=== PATIENT | male | born 1960 | race Caucasian/White ===

== ENCOUNTER 2017-11-29 15:04 | Emergency (ER) | payer MEDICARE, MEDICAID, SELFPAY ==
[2017-11-29 15:11] VITALS: BP 155/76; PULSE 87; RESP 22; TEMP 37; O2SAT 97
--- NOTE | 2017-11-29 15:20 | ED.SOB ---
HPI - SOB/Dyspnea <Vaishnavi Mena, IN HOME AIDE-BC - Last Filed: 11/29/17 23:01> General Chief Complaint: Shortness of Breath/Dyspnea Stated Complaint: LUNGS HURT REAL BAD ON RIGHT SIDE Time Seen by Provider: 11/29/17 15:20 Source: patient and family Mode of arrival: ambulatory Limitations: no limitations History of Present Illness Patient presents with right-sided chest pain for a few days. States this happens when his COPD gets bad. Has noted increased shortness of breath as well as productive cough with increased sputum. Patient states he has been using albuterol home, but has not helped like it should. He is on home oxygen at 2 liters/minute. He denies any fevers, nausea, vomiting, diarrhea. However he does complain of increased dyspnea on exertion. He states he has no lung nodules that are being watched. He has a history of COPD, asthma, bronchitis. Related Data Home Medications Medication Instructions Recorded Confirmed acetaminophen [Tylenol Extra 500 mg PO Q4HP PRN #1 02/20/13 Strength] alum-mag hydroxide-simeth [Mag-Al 30 ml PO PRN PRN #0 08/04/16 Plus] levalbuterol HCl [Xopenex] 1.25 mg INH Q6HP PRN #0 12/23/16 montelukast [Singulair] 10 mg PO QDAY #0 10/27/17 Previous Rx's Medication Instructions Recorded tiotropium bromide [Spiriva with 18 mcg INH QDAY #90 cap 07/10/16 HandiHaler] mometasone-formoterol [Dulera] 2 inh IH BID #1 puff 06/22/17 benzonatate [Tessalon Perles] 100 mg PO TID #90 cap 07/27/17 nystatin 5 ml PO QID #200 ml 08/31/17 albuterol sulfate [Ventolin HFA] 1 - 2 puff INH Q4HP PRN #1 inh 10/27/17 clonazepam 1 tab PO BIDP PRN #30 tab 10/27/17 simvastatin 20 mg tablet 20 mg PO HS #90 tab 11/16/17 amoxicillin-pot clavulanate 1 tab PO BID #20 tab 11/29/17 [Augmentin] prednisone See Label Instructions .ROUTE 11/29/17 .COMPLEX #13 tab Allergies Allergy/AdvReac Type Severity Reaction Status Date / Time budesonide [From SYMBICORT] Allergy Severe Unverified 10/21/17 12:54 cinnamon [CINNAMON] Allergy Severe RESP Unverified 10/21/17 12:54 PROBLEMS AND SWELLING formoterol [From SYMBICORT] Allergy Severe Unverified 10/21/17 12:54 beclomethasone [From QVAR] Allergy Unknown Unverified 10/21/17 12:54 codeine [CODEINE] Allergy Unknown Unverified 10/21/17 12:54 Sulfa (Sulfonamide Allergy Unknown Unverified 10/21/17 12:54 Antibiotics) [SULFA (SULFONAMIDE ANTIBIOTICS)] trimethoprim [TRIMETHOPRIM] Allergy Unknown Unverified 10/21/17 12:54 fluticasone [FLUTICASONE] AdvReac Intermediate FEELS Unverified 10/21/17 12:54 LIKE FIRE IN THE LUNGS salmeterol [SALMETEROL] AdvReac Intermediate FEELS Unverified 10/21/17 12:54 LIKE FIRE IN THE LUNGS doxycycline [DOXYCYCLINE] AdvReac Mild N/V Unverified 10/21/17 12:54 prednisone [PREDNISONE] AdvReac Mild SHAKY AND Unverified 10/21/17 12:54 WEAK ON HIGHER DOSES Review of Systems <ELISHA Cortez - Last Filed: 11/29/17 23:01> Review of Systems GENERAL: See HPI HEENT: Denies sinus pain, ear pain, sore throat, difficulty swallowing, dizziness. RESPIRATORY: See HPI CARDIOVASCULAR: See HPI GASTROINTESTINAL: Denies nausea, vomiting, abdominal pain, diarrhea, constipation, melena. : Denies dysuria, frequency, incontinence, hematuria, urinary retention. MUSCULOSKELETAL: denies weakness, joint pain, or bony pain SKIN: Denies rash, skin lesions, or other NEUROLOGIC: Denies weakness, headache, numbness, change in speech, confusion, seizures, incoordination. PSYCHIATRIC: No concerning psychosocial issues. 12 point review of systems is negative except for those stated above Exam <ELISHA Cortez - Last Filed: 11/29/17 23:01> Narrative Exam Narrative: GENERAL: This is a well-nourished, well-developed patient, on home oxygen. HEAD: Atraumatic. Normocephalic. No temporal or scalp tenderness. EYES: Pupils equal round and reactive. Extraocular motions intact. No scleral icterus. No injection or drainage. ENT: Nose without bleeding, purulent drainage or septal hematoma. Throat without erythema, tonsillar hypertrophy or exudate. Uvula midline. Airway patent. NECK: Trachea midline. No JVD or lymphadenopathy. Supple, nontender, no meningeal signs. CARDIOVASCULAR: Regular rate and rhythm without murmurs, gallops, or rubs. RESPIRATORY: Coarse breath sounds sounds equal bilaterally. Expiratory wheezes noted bilaterally. Patient has cough throughout exam. GASTROINTESTINAL: Abdomen soft, non-tender, nondistended. No hepato-splenomegaly, or palpable masses. No guarding. EXTREMITIES: No clubbing, cyanosis, or edema. No joint tenderness, effusion, or edema noted. BACK: Nontender without deformity or crepitance. No flank tenderness. NEURO: AOx3. SKIN: No rash or erythema. Initial Vital Signs Initial Vital Signs: Vital Signs Temperature 98.6 F 11/29/17 15:11 Pulse Rate 87 11/29/17 15:11 Respiratory Rate 22 11/29/17 15:11 Blood Pressure 155/76 H 11/29/17 15:11 Pulse Oximetry 97 11/29/17 15:11 <Elvis Gale DO - Last Filed: 11/30/17 07:12> Initial Vital Signs Initial Vital Signs: Vital Signs Temperature 98.6 F 11/29/17 15:11 Pulse Rate 87 11/29/17 15:11 Respiratory Rate 22 11/29/17 15:11 Blood Pressure 155/76 H 11/29/17 15:11 Pulse Oximetry 97 11/29/17 15:11 Course <MADAI Cortez-BC - Last Filed: 11/29/17 23:01> Hospital Course: Patient presented with right-sided chest pain. He had an EKG, a chest x-ray, as well as a CBC, CMP and cardiac labs drawn. Given his wheezing, he had a nebulizer treatment. He also had IV steroids. He was given a 1st dose of antibiotic while in the emergency department due to pharmacy closure times. I spoke with the patient several times throughout his stay to evaluate his status and assesses lung sounds. Orders Ordered: Discontinued Medications Acetaminophen (Tylenol) 650 mg PO NOW ONE Stop: 11/29/17 16:54 Last Admin: 11/29/17 17:17 Dose: 650 mg Albuterol (Ventolin) 2.5 mg INH NOW PRN PRN Reason: Shortness Of Breath Last Admin: 11/29/17 16:20 Dose: 2.5 mg Amoxicillin/Clavulanate Potassium (Augmentin 875-125 Mg) 1 tab PO NOW ONE Stop: 11/29/17 18:30 Last Admin: 11/29/17 18:41 Dose: 1 tab Methylprednisolone (Solu-Medrol) 40 mg IV NOW ONE Stop: 11/29/17 16:54 Last Admin: 11/29/17 17:17 Dose: 40 mg Vital Signs - 8 hr 11/29/17 15:11 11/29/17 15:40 11/29/17 16:23 Temperature 98.6 F Pulse Rate 87 81 64 Respiratory Rate 22 10 L 17 Blood Pressure 155/76 H Blood Pressure [Right Arm] 143/83 H Pulse Oximetry 97 97 97 11/29/17 16:51 11/29/17 18:00 11/29/17 18:48 Temperature Pulse Rate 81 72 60 Respiratory Rate 79 H 18 18 Blood Pressure 146/53 H Blood Pressure [Right Arm] 135/76 H 140/79 H Pulse Oximetry 97 97 98 <Elvis Gale, DO - Last Filed: 11/30/17 07:12> Orders Ordered: Discontinued Medications Acetaminophen (Tylenol) 650 mg PO NOW ONE Stop: 11/29/17 16:54 Last Admin: 11/29/17 17:17 Dose: 650 mg Albuterol (Ventolin) 2.5 mg INH NOW PRN PRN Reason: Shortness Of Breath Last Admin: 11/29/17 16:20 Dose: 2.5 mg Amoxicillin/Clavulanate Potassium (Augmentin 875-125 Mg) 1 tab PO NOW ONE Stop: 11/29/17 18:30 Last Admin: 11/29/17 18:41 Dose: 1 tab Methylprednisolone (Solu-Medrol) 40 mg IV NOW ONE Stop: 11/29/17 16:54 Last Admin: 11/29/17 17:17 Dose: 40 mg Vital Signs - 8 hr 11/29/17 15:11 11/29/17 15:40 11/29/17 16:23 Temperature 98.6 F Pulse Rate 87 81 64 Respiratory Rate 22 10 L 17 Blood Pressure 155/76 H Blood Pressure [Right Arm] 143/83 H Pulse Oximetry 97 97 97 11/29/17 16:51 11/29/17 18:00 11/29/17 18:48 Temperature Pulse Rate 81 72 60 Respiratory Rate 79 H 18 Blood Pressure 146/53 H Blood Pressure [Right Arm] 135/76 H 140/79 H Pulse Oximetry 97 97 98 MDM - SOB/Dyspnea <Vaishnavisander GarciaBRENTON noelP-BC - Last Filed: 11/29/17 23:01> Differential Diagnosis Likely acute exacerbation of chronic obstructive airways disease, community acquired pneumonia and asthma with exacerbation Lab Data Result diagrams: 11/29/17 15:30 11/29/17 15:30 Lab Results 11/29/17 11/29/17 11/29/17 Range/Units 15:30 15:30 15:30 WBC 8.9 (4.5-11.0) X10^3/uL RBC 5.19 (4.5-5.9) X10^6/uL Hgb 15.1 (13.5-17.5) g/dL Hct 43.5 (41-53) % MCV 83.9 (80-100) fL MCH 29.1 (26-34) PG MCHC 34.7 (30-36) % RDW 14.0 (11.6-14.8) % Plt Count 145 L (150-400) X10^3/uL Neut % (Auto) 58.4 (50-75) % Lymph % (Auto) 31.2 (25-40) % [place] % (Auto) 6.0 (3-14) % Eos % (Auto) 3.7 (2-4) % Baso % (Auto) 0.7 (0-2) % Neut # (Auto) 5200 (7290-9289) /uL Sodium 146 H (137-145) mmol/L Potassium 3.9 (3.4-5.1) mmol/L Chloride 105.0 (98-107) mmol/L Carbon Dioxide 27.0 (22-32) mmol/L BUN 15.0 (9-20) mg/dL Creatinine 0.90 (0.66-1.25) mg/dL Estimated GFR > 60.0 (>60) mL/min BUN/Creatinine Ratio 16.7 (6-22) Glucose 103 H (70-100) mg/dL Calcium 9.2 (8.4-10.2) mg/dL Magnesium 2.0 (1.6-2.3) mg/dL Total Bilirubin 0.5 (0.2-1.3) mg/dL AST 23 (17-59) IU/L ALT 23 (21-72) IU/L Alkaline Phosphatase 62 (38-126) U/L Total Creatine Kinase 86 (55-170) U/L Troponin I < 0.012 (0.01-0.034) ng/mL B-Natriuretic Peptide < 29.3 L (<100) Total Protein 7.3 (6.3-8.2) g/dL Albumin 4.2 (3.5-5.0) g/dL Globulin 3.1 (1.7-4.1) g/dL Albumin/Globulin Ratio 1.4 (1.0-2.8) Imaging Data Chest x-ray: Radiologist's impression: [address] [address] XRay Report Signed Patient: Mak Rose MR#: [id number] : 1960 Acct:[id number] Age/Sex: 56 / M Date of Service: 11/29/17 Loc: ED Accession Number: [id number] Procedure: XR chest 1V Ordering Provider: Vaishnavi Mena PROCEDURE: XR CHEST 1V INDICATIONS: shortness of breath TECHNIQUE: One view of the chest was acquired. COMPARISON: [facility], CHEST 2 VIEW, 08/29/2017, 16:04. FINDINGS: Surgical changes and devices: None. Lungs and pleura: No pleural effusions or pneumothorax. No focal consolidation. There is a nodular opacity in the right midlung zone measuring approximately 1 cm. Mediastinum: Mediastinal contours appear normal. Heart size is normal. Bones and chest wall: No suspicious bony lesions. Overlying soft tissues appear unremarkable. IMPRESSION: 1. No acute consolidation. 2. Nodular opacity in the right midlung zone is new from the prior study. There is may represent confluence of vascular and rib structures versus a pulmonary nodule. Recommend initial further evaluation with a PA and lateral study. Dictated by: Pernell Adams M.D. on 11/29/2017 at 16:35 Approved by: Pernell Adams M.D. on 11/29/2017 at 16:36 ECG Data Attestation: I personally reviewed and interpreted this ECG as follows: Interpretation: Sinus rhythm. Rate of 75. [place] 165. No ST elevation or depression. [facility] Narrative Medical decision making narrative: Patient presented with increased sputum production, right-sided chest pain, wheezing. His EKG was within normal limits, as was his lab work. His chest x-ray was concerning for nodule in his left lung. Patient states that is a no nodule, but it might be bigger so we will follow up his primary care provider or help desk support. Given his increased wheezing and difficulty breathing, placed him on a steroid taper of prednisone. Given his COPD exacerbation as evidenced by his increased sputum production and wheezing, I placed him on an antibiotic. He is allergic to doxycycline and unfortunately hallucinate when he takes Levaquin. Thus I chose Augmentin as per the up-to-date algorithm for high risk COPD exacerbation. Discussed at length with patient return precautions including chest pain, worsening shortness of breath, worsening, not improving. He states he will call his primary care as well as his help desk support tomorrow. <Elvis Gale, DO - Last Filed: 11/30/17 07:12> Lab Data Lab Results 11/29/17 11/29/17 11/29/17 Range/Units 15:30 15:30 15:30 WBC 8.9 (4.5-11.0) X10^3/uL RBC 5.19 (4.5-5.9) X10^6/uL Hgb 15.1 (13.5-17.5) g/dL Hct 43.5 (41-53) % MCV 83.9 (80-100) fL MCH 29.1 (26-34) PG MCHC 34.7 (30-36) % RDW 14.0 (11.6-14.8) % Plt Count 145 L (150-400) X10^3/uL Neut % (Auto) 58.4 (50-75) % Lymph % (Auto) 31.2 (25-40) % [place] % (Auto) 6.0 (3-14) % Eos % (Auto) 3.7 (2-4) % Baso % (Auto) 0.7 (0-2) % Neut # (Auto) 5200 (1751-9851) /uL Sodium 146 H (137-145) mmol/L Potassium 3.9 (3.4-5.1) mmol/L Chloride 105.0 (98-107) mmol/L Carbon Dioxide 27.0 (22-32) mmol/L BUN 15.0 (9-20) mg/dL Creatinine 0.90 (0.66-1.25) mg/dL Estimated GFR > 60.0 (>60) mL/min BUN/Creatinine Ratio 16.7 (6-22) Glucose 103 H (70-100) mg/dL Calcium 9.2 (8.4-10.2) mg/dL Magnesium 2.0 (1.6-2.3) mg/dL Total Bilirubin 0.5 (0.2-1.3) mg/dL AST 23 (17-59) IU/L ALT 23 (21-72) IU/L Alkaline Phosphatase 62 (38-126) U/L Total Creatine Kinase 86 (55-170) U/L Troponin I < 0.012 (0.01-0.034) ng/mL B-Natriuretic Peptide < 29.3 L (<100) Total Protein 7.3 (6.3-8.2) g/dL Albumin 4.2 (3.5-5.0) g/dL Globulin 3.1 (1.7-4.1) g/dL Albumin/Globulin Ratio 1.4 (1.0-2.8) Discharge Plan Departure Patient Disposition: Home, Self-Care Clinical Impression: COPD exacerbation, Pulmonary nodule Discharge Date/Time: 11/29/17 18:48 Interventions: ED Discharge Assessment Last Done: 11/29/17 18:48 Instructions: DI for Chronic Obstructive Pulmonary Disease Activity Restrictions/Additional Instructions: I am treating you with antibiotics as well as a steroid taper. Follow up with your primary care as well as your help desk support. Continue taking nebulizers and inhalers at home. Come back to the emergency department for any chest pain, shortness of breath, worsening, no improvement. Prescriptions: New prednisone 20 mg tablet See Label Instructions .ROUTE .COMPLEX Qty: 13 RF: 0 amoxicillin-pot clavulanate [Augmentin] 875-125 mg tablet 1 tab PO BID Qty: 20 RF: 0 No Action acetaminophen [Tylenol Extra Strength] 500 MG tablet 500 mg PO Q4HP PRNQty: 1 RF: 0 tiotropium bromide [Spiriva with HandiHaler] 18 MCG capsule, w/inhalation device 18 mcg INH QDAY Qty: 90 RF: 3 alum-mag hydroxide-simeth [Mag-Al Plus] 30 ML suspension 30 ml PO PRN PRNQty: 0 RF: 0 levalbuterol HCl [Xopenex] 1.25 MG/3 ML solution for nebulization 1.25 mg INH Q6HP PRNQty: 0 RF: 0 mometasone-formoterol [Dulera] 200 MCG/5 MCG HFA aerosol inhaler 2 inh IH BID Qty: 1 RF: 6 benzonatate [Tessalon Perles] 100 MG capsule 100 mg PO TID Qty: 90 RF: 3 nystatin 100,000 UNIT/1 ML suspension 5 ml PO QID Qty: 200 RF: 0 montelukast [Singulair] 10 MG tablet 10 mg PO QDAY Qty: 0 RF: 0 clonazepam 0.5 MG tablet 1 tab PO BIDP PRNQty: 30 RF: 0 albuterol sulfate [Ventolin HFA] 90 MCG/PUFF HFA aerosol inhaler 1 - 2 puff INH Q4HP PRNQty: 1 RF: 6 simvastatin 20 mg tablet 20 mg PO HS Qty: 90 RF: 1 Referrals: Naye Reese DO [Primary Care Provider] - <Elvis Gale DO - Last Filed: 11/30/17 07:12> Cosign ED Attending Sami Attestation: I was available for consultation during this patient's emergency department encounter
--- NOTE | 2017-11-29 15:31 | DI.RAD.S_ITS ---
PROCEDURE: XR CHEST 1V INDICATIONS: shortness of breath TECHNIQUE: One view of the chest was acquired. COMPARISON: [facility], , CHEST 2 VIEW, 08/29/2017, 16:04. FINDINGS: Surgical changes and devices: None. Lungs and pleura: No pleural effusions or pneumothorax. No focal consolidation. There is a nodular opacity in the right midlung zone measuring approximately 1 cm. Mediastinum: Mediastinal contours appear normal. Heart size is normal. Bones and chest wall: No suspicious bony lesions. Overlying soft tissues appear unremarkable. IMPRESSION: 1. No acute consolidation. 2. Nodular opacity in the right midlung zone is new from the prior study. There is may represent confluence of vascular and rib structures versus a pulmonary nodule. Recommend initial further evaluation with a PA and lateral study. Dictated by: Pernell Adams M.D. on 11/29/2017 at 16:35 Approved by: Pernell Adams M.D. on 11/29/2017 at 16:36
[2017-11-29 15:38] LABS: Add Manual Diff / Slide Review NO; Basophils Percent Auto 0.7 % (0-2); Eosinophils Percent Auto 3.7 % (2-4); Hematocrit 43.5 % (41-53); Hemoglobin 15.1 g/dL (13.5-17.5); Lymphocytes Percent Auto 31.2 % (25-40); Mean Corpuscular HGB Conc 34.7 % (30-36); Mean Corpuscular Hemoglobin 29.1 PG (26-34); Mean Corpuscular Volume 83.9 fL (80-100); Neutrophils Absolute Auto 5200 /uL (3000-5900); Neutrophils Percent Auto 58.4 % (50-75); Platelet Count 145 X10^3/uL (150-400); Red Blood Cell Count 5.19 X10^6/uL (4.5-5.9); White Blood Cell Count 8.9 X10^3/uL (4.5-11.0)
[2017-11-29 15:40] VITALS: BP 143/83; PULSE 81; RESP 10; O2SAT 97
[2017-11-29 15:45] LABS: Creatine Kinase 86 U/L (55-170)
[2017-11-29 15:47] LABS: Alanine Aminotransferase 23 IU/L (21-72); Albumin 4.2 g/dL (3.5-5.0); Albumin Globulin Ratio 1.4 (1.0-2.8); Alkaline Phosphatase 62 U/L (38-126); Aspartate Aminotransferase 23 IU/L (17-59); BUN Creatinine Ratio 16.7 (6-22); Bilirubin Total 0.5 mg/dL (0.2-1.3); Calcium 9.2 mg/dL (8.4-10.2); Estimated Glomerular Filt Rate > 60.0 mL/min (>60); Globulin 3.1 g/dL (1.7-4.1); Glucose 103 mg/dL (70-100); HEMOLYSIS < 15 (0-50); Potassium 3.9 mmol/L (3.4-5.1); Sodium 146 mmol/L (137-145); Total Protein 7.3 g/dL (6.3-8.2)
[2017-11-29 16:00] LABS: Troponin I < 0.012 ng/mL (0.01-0.034)
[2017-11-29 16:01] LABS: B Type Natriuretic Peptide < 29.3 (<100)
[2017-11-29] MEDS: ALBUTEROL 2.5 MG/3 ML NEB INH (16:20)
[2017-11-29 16:23] VITALS: PULSE 64; RESP 17; O2SAT 97
[2017-11-29 16:51] VITALS: BP 135/76; PULSE 81; RESP 79; O2SAT 97
[2017-11-29] MEDS: ACETAMINOPHEN 325 MG TABLET 650 MG PO (17:17)
[2017-11-29 18:00] VITALS: BP 140/79; PULSE 72; RESP 18; O2SAT 97
[2017-11-29] MEDS: AMOXICILLIN/CLAV 875/125 MG 1 TAB PO (18:41)
[2017-11-29 18:48] VITALS: BP 146/53; PULSE 60; RESP 18; O2SAT 98
--- NOTE | 2017-11-29 23:01 | ED_ITS ---
HPI - SOB/Dyspnea <Vaishnavi Mena, [employer] PL[employer]NER-BC - Last Filed: 11/29/17 23:01> General Chief Complaint: Shortness of Breath/Dyspnea Stated Complaint: LUNGS HURT REAL BAD ON RIGHT SIDE Time Seen by Provider: 11/29/17 15:20 Source: patient and family Mode of arrival: ambulatory Limitations: no limitations History of Present Illness Patient presents with right-sided chest pain for a few days. States this happens when his COPD gets bad. Has noted increased shortness of breath as well as productive cough with increased sputum. Patient states he has been using albuterol home, but has not helped like it should. He is on home oxygen at 2 liters/minute. He denies any fevers, nausea, vomiting, diarrhea. However he does complain of increased dyspnea on exertion. He states he has no lung nodules that are being watched. He has a history of COPD, asthma, bronchitis. Related Data Home Medications Medication Instructions Recorded Confirmed acetaminophen [Tylenol Extra 500 mg PO Q4HP PRN #1 02/20/13 Strength] alum-mag hydroxide-simeth [Mag-Al 30 ml PO PRN PRN #0 08/04/16 Plus] levalbuterol HCl [Xopenex] 1.25 mg INH Q6HP PRN #0 12/23/16 montelukast [Singulair] 10 mg PO QDAY #0 10/27/17 Previous Rx's Medication Instructions Recorded tiotropium bromide [Spiriva with 18 mcg INH QDAY #90 cap 07/10/16 HandiHaler] mometasone-formoterol [Dulera] 2 inh IH BID #1 puff 06/22/17 benzonatate [Tessalon Perles] 100 mg PO TID #90 cap 07/27/17 nystatin 5 ml PO QID #200 ml 08/31/17 albuterol sulfate [Ventolin HFA] 1 - 2 puff INH Q4HP PRN #1 inh 10/27/17 clonazepam 1 tab PO BIDP PRN #30 tab 10/27/17 simvastatin 20 mg tablet 20 mg PO HS #90 tab 11/16/17 amoxicillin-pot clavulanate 1 tab PO BID #20 tab 11/29/17 [Augmentin] prednisone See Label Instructions .ROUTE 11/29/17 .COMPLEX #13 tab Allergies Allergy/AdvReac Type Severity Reaction Status Date / Time budesonide [From SYMBICORT] Allergy Severe Unverified 10/21/17 12:54 cinnamon [CINNAMON] Allergy Severe RESP Unverified 10/21/17 12:54 PROBLEMS AND SWELLING formoterol [From SYMBICORT] Allergy Severe Unverified 10/21/17 12:54 beclomethasone [From QVAR] Allergy Unknown Unverified 10/21/17 12:54 codeine [CODEINE] Allergy Unknown Unverified 10/21/17 12:54 Sulfa (Sulfonamide Allergy Unknown Unverified 10/21/17 12:54 Antibiotics) [SULFA (SULFONAMIDE ANTIBIOTICS)] trimethoprim [TRIMETHOPRIM] Allergy Unknown Unverified 10/21/17 12:54 fluticasone [FLUTICASONE] AdvReac Intermediate FEELS Unverified 10/21/17 12:54 LIKE FIRE IN THE LUNGS salmeterol [SALMETEROL] AdvReac Intermediate FEELS Unverified 10/21/17 12:54 LIKE FIRE IN THE LUNGS doxycycline [DOXYCYCLINE] AdvReac Mild N/V Unverified 10/21/17 12:54 prednisone [PREDNISONE] AdvReac Mild SHAKY AND Unverified 10/21/17 12:54 WEAK ON HIGHER DOSES Review of Systems <ELISHA Cortez - Last Filed: 11/29/17 23:01> Review of Systems GENERAL: See HPI HEENT: Denies sinus pain, ear pain, sore throat, difficulty swallowing, dizziness. RESPIRATORY: See HPI CARDIOVASCULAR: See HPI GASTROINTESTINAL: Denies nausea, vomiting, abdominal pain, diarrhea, constipation, melena. : Denies dysuria, frequency, incontinence, hematuria, urinary retention. MUSCULOSKELETAL: denies weakness, joint pain, or bony pain SKIN: Denies rash, skin lesions, or other NEUROLOGIC: Denies weakness, headache, numbness, change in speech, confusion, seizures, incoordination. PSYCHIATRIC: No concerning psychosocial issues. 12 point review of systems is negative except for those stated above Exam <ELISHA Cortez - Last Filed: 11/29/17 23:01> Narrative Exam Narrative: GENERAL: This is a well-nourished, well-developed patient, on home oxygen. HEAD: Atraumatic. Normocephalic. No temporal or scalp tenderness. EYES: Pupils equal round and reactive. Extraocular motions intact. No scleral icterus. No injection or drainage. ENT: Nose without bleeding, purulent drainage or septal hematoma. Throat without erythema, tonsillar hypertrophy or exudate. Uvula midline. Airway patent. NECK: Trachea midline. No JVD or lymphadenopathy. Supple, nontender, no meningeal signs. CARDIOVASCULAR: Regular rate and rhythm without murmurs, gallops, or rubs. RESPIRATORY: Coarse breath sounds sounds equal bilaterally. Expiratory wheezes noted bilaterally. Patient has cough throughout exam. GASTROINTESTINAL: Abdomen soft, non-tender, nondistended. No hepato-splenomegaly , or palpable masses. No guarding. EXTREMITIES: No clubbing, cyanosis, or edema. No joint tenderness, effusion, or edema noted. BACK: Nontender without deformity or crepitance. No flank tenderness. NEURO: AOx3. SKIN: No rash or erythema. Initial Vital Signs Initial Vital Signs: Vital Signs Temperature 98.6 F 11/29/17 15:11 Pulse Rate 87 11/29/17 15:11 Respiratory Rate 22 11/29/17 15:11 Blood Pressure 155/76 H 11/29/17 15:11 Pulse Oximetry 97 11/29/17 15:11 <Elvis Gale DO - Last Filed: 11/30/17 07:12> Initial Vital Signs Initial Vital Signs: Vital Signs Temperature 98.6 F 11/29/17 15:11 Pulse Rate 87 11/29/17 15:11 Respiratory Rate 22 11/29/17 15:11 Blood Pressure 155/76 H 11/29/17 15:11 Pulse Oximetry 97 11/29/17 15:11 Course <MADAI Cortez-BC - Last Filed: 11/29/17 23:01> Hospital Course: Patient presented with right-sided chest pain. He had an EKG, a chest x-ray, as well as a CBC, CMP and cardiac labs drawn. Given his wheezing, he had a nebulizer treatment. He also had IV steroids. He was given a 1st dose of antibiotic while in the emergency department due to pharmacy closure times. I spoke with the patient several times throughout his stay to evaluate his status and assesses lung sounds. Orders Ordered: Discontinued Medications Acetaminophen (Tylenol) 650 mg PO NOW ONE Stop: 11/29/17 16:54 Last Admin: 11/29/17 17:17 Dose: 650 mg Albuterol (Ventolin) 2.5 mg INH NOW PRN PRN Reason: Shortness Of Breath Last Admin: 11/29/17 16:20 Dose: 2.5 mg Amoxicillin/Clavulanate Potassium (Augmentin 875-125 Mg) 1 tab PO NOW ONE Stop: 11/29/17 18:30 Last Admin: 11/29/17 18:41 Dose: 1 tab Methylprednisolone (Solu-Medrol) 40 mg IV NOW ONE Stop: 11/29/17 16:54 Last Admin: 11/29/17 17:17 Dose: 40 mg Vital Signs - 8 hr 11/29/17 15:11 11/29/17 15:40 11/29/17 16:23 Temperature 98.6 F Pulse Rate 87 81 64 Respiratory Rate 22 10 L 17 Blood Pressure 155/76 H Blood Pressure [Right Arm] 143/83 H Pulse Oximetry 97 97 97 11/29/17 16:51 11/29/17 18:00 11/29/17 18:48 Temperature Pulse Rate 81 72 60 Respiratory Rate 79 H 18 18 Blood Pressure 146/53 H Blood Pressure [Right Arm] 135/76 H 140/79 H Pulse Oximetry 97 97 98 <Elvis Gale, DO - Last Filed: 11/30/17 07:12> Orders Ordered: Discontinued Medications Acetaminophen (Tylenol) 650 mg PO NOW ONE Stop: 11/29/17 16:54 Last Admin: 11/29/17 17:17 Dose: 650 mg Albuterol (Ventolin) 2.5 mg INH NOW PRN PRN Reason: Shortness Of Breath Last Admin: 11/29/17 16:20 Dose: 2.5 mg Amoxicillin/Clavulanate Potassium (Augmentin 875-125 Mg) 1 tab PO NOW ONE Stop: 11/29/17 18:30 Last Admin: 11/29/17 18:41 Dose: 1 tab Methylprednisolone (Solu-Medrol) 40 mg IV NOW ONE Stop: 11/29/17 16:54 Last Admin: 11/29/17 17:17 Dose: 40 mg Vital Signs - 8 hr 11/29/17 15:11 11/29/17 15:40 11/29/17 16:23 Temperature 98.6 F Pulse Rate 87 81 64 Respiratory Rate 22 10 L 17 Blood Pressure 155/76 H Blood Pressure [Right Arm] 143/83 H Pulse Oximetry 97 97 97 11/29/17 16:51 11/29/17 18:00 11/29/17 18:48 Temperature Pulse Rate 81 72 60 Respiratory Rate 79 H 18 Blood Pressure 146/53 H Blood Pressure [Right Arm] 135/76 H 140/79 H Pulse Oximetry 97 97 98 MDM - SOB/Dyspnea <Vaishnavisander GarciaBRENTON noelP-BC - Last Filed: 11/29/17 23:01> Differential Diagnosis Likely acute exacerbation of chronic obstructive airways disease, community acquired pneumonia and asthma with exacerbation Lab Data Result diagrams: 11/29/17 15:30 11/29/17 15:30 Lab Results 11/29/17 11/29/17 11/29/17 Range/Units 15:30 15:30 15:30 WBC 8.9 (4.5-11.0) X10^3/uL RBC 5.19 (4.5-5.9) X10^6/uL Hgb 15.1 (13.5-17.5) g/dL Hct 43.5 (41-53) % MCV 83.9 (80-100) fL MCH 29.1 (26-34) PG MCHC 34.7 (30-36) % RDW 14.0 (11.6-14.8) % Plt Count 145 L (150-400) X10^3/uL Neut % (Auto) 58.4 (50-75) % Lymph % (Auto) 31.2 (25-40) % [place] % (Auto) 6.0 (3-14) % Eos % (Auto) 3.7 (2-4) % Baso % (Auto) 0.7 (0-2) % Neut # (Auto) 5200 (6665-4940) /uL Sodium 146 H (137-145) mmol/L Potassium 3.9 (3.4-5.1) mmol/L Chloride 105.0 (98-107) mmol/L Carbon Dioxide 27.0 (22-32) mmol/L BUN 15.0 (9-20) mg/dL Creatinine 0.90 (0.66-1.25) mg/dL Estimated GFR > 60.0 (>60) mL/min BUN/Creatinine Ratio 16.7 (6-22) Glucose 103 H (70-100) mg/dL Calcium 9.2 (8.4-10.2) mg/dL Magnesium 2.0 (1.6-2.3) mg/dL Total Bilirubin 0.5 (0.2-1.3) mg/dL AST 23 (17-59) IU/L ALT 23 (21-72) IU/L Alkaline Phosphatase 62 (38-126) U/L Total Creatine Kinase 86 (55-170) U/L Troponin I < 0.012 (0.01-0.034) ng/mL B-Natriuretic Peptide < 29.3 L (<100) Total Protein 7.3 (6.3-8.2) g/dL Albumin 4.2 (3.5-5.0) g/dL Globulin 3.1 (1.7-4.1) g/dL Albumin/Globulin Ratio 1.4 (1.0-2.8) Imaging Data Chest x-ray: Radiologist's impression: [address] [address] XRay Report Signed Patient: Mak Rose MR#: [id number] : 1960 Acct:[id number] Age/Sex: 56 / M Date of Service: 11/29/17 Loc: ED Accession Number: [id number] Procedure: XR chest 1V Ordering Provider: Vaishnavi Mena PROCEDURE: XR CHEST 1V INDICATIONS: shortness of breath TECHNIQUE: One view of the chest was acquired. COMPARISON: [facility], CHEST 2 VIEW, 08/29/2017, 16:04. FINDINGS: Surgical changes and devices: None. Lungs and pleura: No pleural effusions or pneumothorax. No focal consolidation. There is a nodular opacity in the right midlung zone measuring approximately 1 cm. Mediastinum: Mediastinal contours appear normal. Heart size is normal. Bones and chest wall: No suspicious bony lesions. Overlying soft tissues appear unremarkable. IMPRESSION: 1. No acute consolidation. 2. Nodular opacity in the right midlung zone is new from the prior study. There is may represent confluence of vascular and rib structures versus a pulmonary nodule. Recommend initial further evaluation with a PA and lateral study. Dictated by: Pernell Adams M.D. on 11/29/2017 at 16:35 Approved by: Pernell Adams M.D. on 11/29/2017 at 16:36 ECG Data Attestation: I personally reviewed and interpreted this ECG as follows: Interpretation: Sinus rhythm. Rate of 75. [place] 165. No ST elevation or depression. [facility] Narrative Medical decision making narrative: Patient presented with increased sputum production, right-sided chest pain, wheezing. His EKG was within normal limits , as was his lab work. His chest x-ray was concerning for nodule in his left lung. Patient states that is a no nodule, but it might be bigger so we will follow up his primary care provider or underwriting specialist. Given his increased wheezing and difficulty breathing, placed him on a steroid taper of prednisone. Given his COPD exacerbation as evidenced by his increased sputum production and wheezing, I placed him on an antibiotic. He is allergic to doxycycline and unfortunately hallucinate when he takes Levaquin. Thus I chose Augmentin as per the up-to-date algorithm for high risk COPD exacerbation. Discussed at length with patient return precautions including chest pain, worsening shortness of breath, worsening, not improving. He states he will call his primary care as well as his underwriting specialist tomorrow. <Elvis Gale, DO - Last Filed: 11/30/17 07:12> Lab Data Lab Results 11/29/17 11/29/17 11/29/17 Range/Units 15:30 15:30 15:30 WBC 8.9 (4.5-11.0) X10^3/uL RBC 5.19 (4.5-5.9) X10^6/uL Hgb 15.1 (13.5-17.5) g/dL Hct 43.5 (41-53) % MCV 83.9 (80-100) fL MCH 29.1 (26-34) PG MCHC 34.7 (30-36) % RDW 14.0 (11.6-14.8) % Plt Count 145 L (150-400) X10^3/uL Neut % (Auto) 58.4 (50-75) % Lymph % (Auto) 31.2 (25-40) % [place] % (Auto) 6.0 (3-14) % Eos % (Auto) 3.7 (2-4) % Baso % (Auto) 0.7 (0-2) % Neut # (Auto) 5200 (8464-3479) /uL Sodium 146 H (137-145) mmol/L Potassium 3.9 (3.4-5.1) mmol/L Chloride 105.0 (98-107) mmol/L Carbon Dioxide 27.0 (22-32) mmol/L BUN 15.0 (9-20) mg/dL Creatinine 0.90 (0.66-1.25) mg/dL Estimated GFR > 60.0 (>60) mL/min BUN/Creatinine Ratio 16.7 (6-22) Glucose 103 H (70-100) mg/dL Calcium 9.2 (8.4-10.2) mg/dL Magnesium 2.0 (1.6-2.3) mg/dL Total Bilirubin 0.5 (0.2-1.3) mg/dL AST 23 (17-59) IU/L ALT 23 (21-72) IU/L Alkaline Phosphatase 62 (38-126) U/L Total Creatine Kinase 86 (55-170) U/L Troponin I < 0.012 (0.01-0.034) ng/mL B-Natriuretic Peptide < 29.3 L (<100) Total Protein 7.3 (6.3-8.2) g/dL Albumin 4.2 (3.5-5.0) g/dL Globulin 3.1 (1.7-4.1) g/dL Albumin/Globulin Ratio 1.4 (1.0-2.8) Discharge Plan Departure Patient Disposition: Home, Self-Care Clinical Impression: COPD exacerbation, Pulmonary nodule Discharge Date/Time: 11/29/17 18:48 Interventions: ED Discharge Assessment Last Done: 11/29/17 18:48 Instructions: DI for Chronic Obstructive Pulmonary Disease Activity Restrictions/Additional Instructions: I am treating you with antibiotics as well as a steroid taper. Follow up with your primary care as well as your underwriting specialist. Continue taking nebulizers and inhalers at home. Come back to the emergency department for any chest pain , shortness of breath, worsening, no improvement. Prescriptions: New prednisone 20 mg tablet See Label Instructions .ROUTE .COMPLEX Qty: 13 RF: 0 amoxicillin-pot clavulanate [Augmentin] 875-125 mg tablet 1 tab PO BID Qty: 20 RF: 0 No Action acetaminophen [Tylenol Extra Strength] 500 MG tablet 500 mg PO Q4HP PRNQty: 1 RF: 0 tiotropium bromide [Spiriva with HandiHaler] 18 MCG capsule, w/inhalation device 18 mcg INH QDAY Qty: 90 RF: 3 alum-mag hydroxide-simeth [Mag-Al Plus] 30 ML suspension 30 ml PO PRN PRNQty: 0 RF: 0 levalbuterol HCl [Xopenex] 1.25 MG/3 ML solution for nebulization 1.25 mg INH Q6HP PRNQty: 0 RF: 0 mometasone-formoterol [Dulera] 200 MCG/5 MCG HFA aerosol inhaler 2 inh IH BID Qty: 1 RF: 6 benzonatate [Tessalon Perles] 100 MG capsule 100 mg PO TID Qty: 90 RF: 3 nystatin 100,000 UNIT/1 ML suspension 5 ml PO QID Qty: 200 RF: 0 montelukast [Singulair] 10 MG tablet 10 mg PO QDAY Qty: 0 RF: 0 clonazepam 0.5 MG tablet 1 tab PO BIDP PRNQty: 30 RF: 0 albuterol sulfate [Ventolin HFA] 90 MCG/PUFF HFA aerosol inhaler 1 - 2 puff INH Q4HP PRNQty: 1 RF: 6 simvastatin 20 mg tablet 20 mg PO HS Qty: 90 RF: 1 Referrals: Naye Reese DO [Primary Care Provider] - <Elvis Gale DO - Last Filed: 11/30/17 07:12> Cosign ED Attending Sami Attestation: I was available for consultation during this patient's emergency department encounter
== END 2017-11-29 18:48 | disposition home or self-care (01) ==
PROVIDERS: Emergency Provider Nurse Practitioner Family; Family Provider Family Medicine; PCP Family Medicine
DX: J44.1 Chronic obstructive pulmonary disease with (acute) exacerbation (principal); R91.1 Solitary pulmonary nodule
CPT/HCPCS: 36591; 71045; 80053; 81003; 82550; 82553; 83735; 83880; 84484; 85025; 93005; 94640; 96374; 99285; J2920; J7613

== ENCOUNTER → 2017-12-10 08:13 | Outpatient (CLI) | payer MEDICARE, SELFPAY ==
[2017-12-10 09:36] LABS: Add Manual Diff / Slide Review NO; Basophils Percent Auto 0.1 % (0-2); Hematocrit 47.2 % (41-53); Hemoglobin 15.9 g/dL (13.5-17.5); Lymphocytes Percent Auto 23.5 % (25-40); Mean Corpuscular HGB Conc 33.8 % (30-36); Mean Corpuscular Volume 85.8 fL (80-100); Monocytes Percent Auto 4.9 % (3-14); Neutrophils Absolute Auto 11600 /uL (3000-5900); Neutrophils Percent Auto 64.5 % (50-75); Platelet Count 149 X10^3/uL (150-400); Red Cell Distribution Width 14.3 % (11.6-14.8)
[2017-12-10 09:41] LABS: Appearance Urine UA CLEAR; Bilirubin Urine UA NEGATIVE (NEGATIVE); Color Urine UA YELLOW; Glucose Urine UA NEGATIVE (Normal); Ketones Urine UA NEGATIVE (NEGATIVE); Leukocyte Esterase Urine UA NEGATIVE (NEGATIVE); Nitrite Urine UA Negative (Negative); Occult Blood Urine UA 1+ (Negative); Protein Urine UA NEGATIVE (Negative); Specific Gravity Urine UA 1.025 (1.000-1.035); Urobilinogen Urine UA 0.2 E.U./dL (0.2)
[2017-12-10 09:50] LABS: Alanine Aminotransferase 31 IU/L (21-72); Albumin 4.1 g/dL (3.5-5.0); Albumin Globulin Ratio 1.2 (1.0-2.8); Alkaline Phosphatase 66 U/L (38-126); Aspartate Aminotransferase 22 IU/L (17-59); Bilirubin Total 0.5 mg/dL (0.2-1.3); Blood Urea Nitrogen 17 mg/dL (9-20); Calcium 9.1 mg/dL (8.4-10.2); Carbon Dioxide 32 mmol/L (22-32); Chloride 100 mmol/L (98-107); Cholesterol 194 mg/dL (140-199); Estimated Glomerular Filt Rate > 60.0 mL/min (>60); Globulin 3.3 g/dL (1.7-4.1); Glucose 92 mg/dL (70-100); HDL Cholesterol 51 mg/dL (40-60); HEMOLYSIS < 15 (0-50); LDL Cholesterol Calculated 118 mg/dL (<100); Potassium 3.6 mmol/L (3.4-5.1); Sodium 141 mmol/L (137-145); Total Protein 7.4 g/dL (6.3-8.2); Triglycerides 126 mg/dL (35-150)
[2017-12-10 10:15] LABS: Prostate Specific Antigen Scrn 0.654 ng/mL (0.1-4.0)
== END ==
PROVIDERS: PCP Family Medicine; Visit Provider Family Medicine
DX: Z12.5 Encounter for screening for malignant neoplasm of prostate (principal); E78.2 Mixed hyperlipidemia; F41.9 Anxiety disorder, unspecified; F51.01 Primary insomnia; J43.1 Panlobular emphysema
CPT/HCPCS: 36415; 80053; 80061; 81003; 85025; G0103

== ENCOUNTER 2017-12-26 00:47 | Emergency (ER) | payer MEDICARE, MEDICAID, SELFPAY ==
[2017-12-26] MEDS: ALBUTEROL/IPRATROPIUM 3 ML AMPUL INH (00:59)
[2017-12-26 01:00] VITALS: PULSE 102; RESP 24; O2SAT 99
[2017-12-26 01:06] VITALS: BP 164/95; PULSE 100; RESP 25; TEMP 37.1; O2SAT 99; BMI 26.6
--- NOTE | 2017-12-26 01:09 | DI.RAD.S_ITS ---
PROCEDURE: XR CHEST 2V INDICATIONS: cough, shortness of breath TECHNIQUE: 2 views of the chest were acquired. COMPARISON: [facility], , CHEST 2 VIEW, 08/29/2017, 16:04. [facility], JOSE, XR CHEST 1V, 11/29/2017, 15:36. FINDINGS: Surgical changes and devices: None. Lungs and pleura: No pleural effusions or pneumothorax. Lungs are clear. Nodular opacity in the right midlung redemonstrated. Mediastinum: Mediastinal contours are normal. Heart size is normal. Bones and chest wall: No suspicious bony abnormalities. Soft tissues appear unremarkable. IMPRESSION: 1. No acute cardiopulmonary disease process. 2. Nodular opacity in the right midlung. Recommend CT scan of the chest for definitive characterization when clinically feasible. Dictated by: Lianet Celis MD, PhD on 12/26/2017 at 7:54 Approved by: Lianet Celis MD, PhD on 12/26/2017 at 7:55
[2017-12-26 01:13] VITALS: PULSE 103; RESP 19; O2SAT 99
[2017-12-26] MEDS: ALBUTEROL/IPRATROPIUM 3 ML AMPUL 6 ML INH (01:13)
[2017-12-26 01:21] LABS: BUN Creatinine Ratio 17.8 (6-22); Blood Urea Nitrogen 16 mg/dL (9-20); Calcium 9.2 mg/dL (8.4-10.2); Carbon Dioxide 29 mmol/L (22-32); Chloride 103 mmol/L (98-107); Estimated Glomerular Filt Rate > 60.0 mL/min (>60); Glucose 80 mg/dL (70-100); HEMOLYSIS 32 (0-50); Potassium 4.1 mmol/L (3.4-5.1); Sodium 143 mmol/L (137-145)
[2017-12-26 01:22] LABS: Add Manual Diff / Slide Review NO; Basophils Percent Auto 1.4 % (0-2); Hematocrit 44.9 % (41-53); Hemoglobin 15.4 g/dL (13.5-17.5); Lymphocytes Percent Auto 32.4 % (25-40); Mean Corpuscular HGB Conc 34.4 % (30-36); Mean Corpuscular Hemoglobin 29.1 PG (26-34); Mean Corpuscular Volume 84.8 fL (80-100); Neutrophils Absolute Auto 6200 /uL (3000-5900); Neutrophils Percent Auto 51.2 % (50-75); Platelet Count 213 X10^3/uL (150-400); Red Blood Cell Count 5.29 X10^6/uL (4.5-5.9); Red Cell Distribution Width 14.1 % (11.6-14.8); White Blood Cell Count 12.1 X10^3/uL (4.5-11.0)
[2017-12-26] MEDS: AZITHROMYCIN 250 MG TABLET 500 MG PO (01:33)
[2017-12-26 01:43] LABS: Troponin I < 0.012 ng/mL (0.01-0.034)
[2017-12-26] MEDS: DEXAMETHASONE 10 MG/ML VIAL 16 MG PO (01:44)
[2017-12-26 02:38] VITALS: BP 112/65; PULSE 102; O2SAT 94
[2017-12-26 03:47] VITALS: BP 133/74; PULSE 89; RESP 18; O2SAT 96
[2017-12-26 04:16] LABS: Troponin I < 0.012 ng/mL (0.01-0.034)
[2017-12-26 04:22] VITALS: BP 139/80; PULSE 67; RESP 20; TEMP 36.7; O2SAT 98
--- NOTE | 2017-12-26 04:27 | ED_ITS ---
HPI - SOB/Dyspnea General Chief Complaint: Shortness of Breath/Dyspnea Stated Complaint: SOB History of Present Illness HPI 57 y/o male smoker with COPD presents with 3-4 hours of gradually progressive shortness breath refractory to his albuterol inhaler and nebulizer. Patient received albuterol ?2 by EMS prior to arrival. Patient uses 2 L per minute by nasal cannula at home. * PE risk factors: denies history of DVT or PE, recent immobilization, leg trauma, estrogen use, surgery in the last four weeks, hemoptysis, or malignancy in the last 6 months. * Smoking: lifelong. * Inhaler(s): albuterol. * CHF: denies weight gain, orthopnea, or diuretic use. M/S/F/SocHx notable for: please see HPI; remainder reviewed with patient and in chart. ROS: Negative constitutional, eye, cardiovascular, pulmonary, GI, , MSK, skin , neurologic, psychiatric, endocrine unless noted in the HPI. Exam Gen: Pleasant, non-toxic appearing, not in extremis. HEENT: NC, AT, PEERL, EOMI, trachea midline. Resp: mild diffuse expiratory wheezing throughout all lung silva, increased work of breathing. Card: RRR with no M/R/G, no crackles in lung bases, no pedal edema, no JVD appreciated. GI: Non-tender to palpation throughout all quadrants, no rebound or guarding. MSK: No chest wall TTP. No visible deformities, strength and tone WNL. Skin: Normal color with no visible lesions. Neuro: AO x 3, no facial asymmetry, vision and hearing WNL. Psych: Mood and affect appropriate. Labs / Imaging (pertinent): WBC 12.1, Hb 15.4, Na 143, K 4.1, troponin < 0.012, troponin (repeat) < 0.012 EKG (initial): SR at 100 bpm, no MD segment depressions, moderate ST segment depressions, no new LBBB, or T-wave changes that would suggest acute ischemia. EKG (repeat): SR 86 bpm, no ST segment elevations or depressions, no LBBB. CXR: No acute cardiopulmonary disease process. No focal infiltrate, cardiomegaly , rib fractures, or mediastinal widening, lung markings extend to the periphery bilaterally and there are no deep sulci. Radiologist read pending. MDM Previous chart, nursing note, and vitals reviewed. A: 57 y/o male smoker with COPD presents with 3-4 hours of gradually progressive shortness breath refractory to his albuterol inhaler and nebulizer. DDx: COPD exacerbation, pneumonia, bronchitis, pneumothorax, anxiety, PE, CHF exacerbation, pleural effusion, pericardial effusion, ACS. Evaluation: * COPD exacerbation - known history along with today's presentation (increased WOB with wheezing throughout all lung silva) most consistent with COPD exacerbation. * Pneumonia - as the CXR is without focal infiltrate and the patient is afebrile and without significant sputum production, doubt pneumonia. * Bronchitis - doubt given the lack of productive cough or systemic symptoms. * Pneumothorax - no evidence by CXR. * Anxiety - patient clinically without evidence of appreciable anxiety on exam. * PE - low clinical suspicion given history and alternate diagnosis, further risk stratification (e.g.) Well's not indicated. * CHF - no evidence by CXR, auscultation, or physical exam. * Pleural effusion - CXR without evidence of effusions. * Pericardial effusion - doubt pericardial effusion given an alternate diagnosis , the lack of cardiomegaly on CXR and normal heart sounds. * ACS - doubt ACS given a non-ischemic EKG and negative serial troponins. Nonspecific ST segment changes on initial ECG felt to be secondary to demand, these resolved with treatment of the patient's COPD. Patient instructed to follow up with PCP. ED Course: Given 3 duonebs, 16 mg dexamethasone, and 500 mg Azithromycin. Disposition: Discharged with rx for 40 mg prednisone x 4 days and Azithromycin Impression: COPD exacerbation. (please reference below for remainder of encounter information) Related Data Home Medications Medication Instructions Recorded Confirmed acetaminophen [Tylenol Extra 500 mg PO Q4HP PRN #1 02/20/13 12/04/17 Strength] alum-mag hydroxide-simeth [Mag-Al 30 ml PO PRN PRN #0 08/04/16 12/04/17 Plus] levalbuterol HCl [Xopenex] 1.25 mg INH Q6HP PRN #0 12/23/16 12/04/17 montelukast [Singulair] 10 mg PO QDAY #0 10/27/17 12/04/17 prednisone 20 mg tablet See Label Instructions .ROUTE 12/04/17 .COMPLEX tab Previous Rx's Medication Instructions Recorded tiotropium bromide [Spiriva with 18 mcg INH QDAY #90 cap 07/10/16 HandiHaler] mometasone-formoterol [Dulera] 2 inh IH BID #1 puff 06/22/17 benzonatate [Tessalon Perles] 100 mg PO TID #90 cap 07/27/17 nystatin 5 ml PO QID #200 ml 08/31/17 albuterol sulfate [Ventolin HFA] 1 - 2 puff INH Q4HP PRN #1 inh 10/27/17 clonazepam 1 tab PO BIDP PRN #30 tab 10/27/17 simvastatin 20 mg tablet 20 mg PO HS #90 tab 11/16/17 amoxicillin-pot clavulanate 1 tab PO BID #20 tab 11/29/17 [Augmentin] Allergies Allergy/AdvReac Type Severity Reaction Status Date / Time cinnamon [CINNAMON] Allergy Severe RESP Verified 12/26/17 01:24 PROBLEMS AND SWELLING beclomethasone [From QVAR] Allergy Unknown Verified 12/26/17 01:24 budesonide [From SYMBICORT] Allergy Unknown unknown Verified 12/26/17 01:24 codeine [CODEINE] Allergy Unknown Verified 12/26/17 01:24 formoterol [From SYMBICORT] Allergy Unknown Verified 12/26/17 01:24 Sulfa (Sulfonamide Allergy Unknown Verified 12/26/17 01:24 Antibiotics) [SULFA (SULFONAMIDE ANTIBIOTICS)] trimethoprim [TRIMETHOPRIM] Allergy Unknown Verified 12/26/17 01:24 fluticasone [FLUTICASONE] AdvReac Intermediate FEELS Verified 12/26/17 01:24 LIKE FIRE IN THE LUNGS doxycycline [DOXYCYCLINE] AdvReac Mild N/V Verified 12/26/17 01:24 prednisone [PREDNISONE] AdvReac Mild SHAKY AND Verified 12/26/17 01:24 WEAK ON HIGHER DOSES PFSH Family History Mother Age: 79 Hypertension Sister Age: 62 Cancer Social History Smoking Status: Current every day smoker Exam Initial Vital Signs Initial Vital Signs: Vital Signs Pulse Rate 102 H 12/26/17 01:00 Respiratory Rate 24 12/26/17 01:00 Pulse Oximetry 99 12/26/17 01:00 Course Orders Ordered: ED Orders 12/26/17 00:45 Basic Metabolic Panel Stat Complete Blood Count AUTO DIFF Stat Troponin I Stat 12/26/17 01:09 XR chest 2V Stat EKG-12 Lead Stat 12/26/17 03:38 EKG-12 Lead Stat 12/26/17 03:50 Troponin I Stat Discontinued Medications Albuterol/Ipratropium (Duoneb) 3 ml INH NOW ONE Stop: 12/26/17 00:58 Last Admin: 12/26/17 00:59 Dose: 3 ml Albuterol/Ipratropium (Duoneb) 6 ml INH NOW ONE Stop: 12/26/17 01:10 Last Admin: 12/26/17 01:13 Dose: 6 ml Azithromycin (Zithromax) 500 mg PO NOW ONE Stop: 12/26/17 01:10 Last Admin: 12/26/17 01:33 Dose: 500 mg Dexamethasone (Decadron) 16 mg PO NOW ONE Stop: 12/26/17 01:10 Last Admin: 12/26/17 01:44 Dose: 16 mg Vital Signs - 8 hr 12/26/17 01:00 12/26/17 01:06 12/26/17 01:13 Temperature 98.7 F Pulse Rate 102 H 100 H 103 H Respiratory Rate 24 25 H 19 Blood Pressure 164/95 H Blood Pressure [Left Arm] Pulse Oximetry 99 99 99 12/26/17 02:38 12/26/17 03:47 12/26/17 04:22 Temperature 98.0 F Pulse Rate 102 H 89 67 Respiratory Rate 18 20 Blood Pressure 139/80 H Blood Pressure [Left Arm] 112/65 133/74 H Pulse Oximetry 94 96 98 MDM - SOB/Dyspnea Lab Data Result diagrams: 12/26/17 00:45 12/26/17 00:45 Lab Results 12/26/17 12/26/17 12/26/17 Range/Units 00:45 00:45 03:50 WBC 12.1 H (4.5-11.0) X10^3/uL RBC 5.29 (4.5-5.9) X10^6/uL Hgb 15.4 (13.5-17.5) g/dL Hct 44.9 (41-53) % MCV 84.8 (80-100) fL MCH 29.1 (26-34) PG MCHC 34.4 (30-36) % RDW 14.1 (11.6-14.8) % Plt Count 213 (150-400) X10^3/uL Neut % (Auto) 51.2 (50-75) % Lymph % (Auto) 32.4 (25-40) % [place] % (Auto) 5.0 (3-14) % Eos % (Auto) 10.0 H (2-4) % Baso % (Auto) 1.4 (0-2) % Neut # (Auto) 6200 H (7210-0057) /uL Sodium 143 (137-145) mmol/L Potassium 4.1 (3.4-5.1) mmol/L Chloride 103 (98-107) mmol/L Carbon Dioxide 29 (22-32) mmol/L BUN 16 (9-20) mg/dL Creatinine 0.90 (0.66-1.25) mg/dL Estimated GFR > 60.0 (>60) mL/min BUN/Creatinine Ratio 17.8 (6-22) Glucose 80 (70-100) mg/dL Calcium 9.2 (8.4-10.2) mg/dL Troponin I < 0.012 < 0.012 (0.01-0.034) ng/mL Discharge Plan Departure Interventions: ED Discharge Assessment Last Done: 12/26/17 04:22 Prescriptions: No Action prednisone 20 mg tablet See Patient Comments .ROUTE .COMPLEX RF: 0 acetaminophen [Tylenol Extra Strength] 500 MG tablet 500 mg PO Q4HP PRNQty: 1 RF: 0 tiotropium bromide [Spiriva with HandiHaler] 18 MCG capsule, w/inhalation device 18 mcg INH QDAY Qty: 90 RF: 3 alum-mag hydroxide-simeth [Mag-Al Plus] 30 ML suspension 30 ml PO PRN PRNQty: 0 RF: 0 levalbuterol HCl [Xopenex] 1.25 MG/3 ML solution for nebulization 1.25 mg INH Q6HP PRNQty: 0 RF: 0 mometasone-formoterol [Dulera] 200 MCG/5 MCG HFA aerosol inhaler 2 inh IH BID Qty: 1 RF: 6 benzonatate [Tessalon Perles] 100 MG capsule 100 mg PO TID Qty: 90 RF: 3 nystatin 100,000 UNIT/1 ML suspension 5 ml PO QID Qty: 200 RF: 0 montelukast [Singulair] 10 MG tablet 10 mg PO QDAY Qty: 0 RF: 0 clonazepam 0.5 MG tablet 1 tab PO BIDP PRNQty: 30 RF: 0 albuterol sulfate [Ventolin HFA] 90 MCG/PUFF HFA aerosol inhaler 1 - 2 puff INH Q4HP PRNQty: 1 RF: 6 simvastatin 20 mg tablet 20 mg PO HS Qty: 90 RF: 1 amoxicillin-pot clavulanate [Augmentin] 875-125 mg tablet 1 tab PO BID Qty: 20 RF: 0
== END 2017-12-26 04:47 | disposition home or self-care (01) ==
PROVIDERS: Emergency Provider Emergency Medicine; Family Provider Family Medicine; PCP Family Medicine
DX: J44.1 Chronic obstructive pulmonary disease with (acute) exacerbation (principal)
CPT/HCPCS: 36415; 71046; 80048; 84484; 85025; 93005; 94640; 99282; 99285; J1100

== ENCOUNTER → 2018-01-27 09:57 | Outpatient (CLI) | payer MEDICARE, MEDICAID, SELFPAY ==
--- NOTE | 2018-01-27 10:01 | DI.CT.S_ITS ---
PROCEDURE: CT CHEST WO CON INDICATIONS: [address] scan on pulmonary nodule TECHNIQUE: Noncontrast 5 mm thick sections acquired from the pulmonary apices to the posterior costophrenic angles. 7 mm thick coronal and sagittal MIP reformats were then acquired. For radiation dose reduction, the following was used: automated exposure control, adjustment of mA and/or kV according to patient size. COMPARISON: [facility], CT, THORAX WITHOUT CONTRAST, 07/17/2017, 9:43. PET/CT from 07/29/2017. FINDINGS: Image quality: Excellent. Lungs and pleura: There is a new 9 x 6 mm right middle lobe pulmonary nodule (se 3 im 81). There is a right upper lobe 20 x 7 mm spiculated pulmonary nodule (se 3 im 63) which is stable since 07/17/2017. Medial left upper lobe 9 mm area of scarring is decreased in prominence the previous study. Posterior left upper lobe irregular scarring now demonstrates an 8mm solid nodular component (se 3 im 36). Emphysema. Mediastinum: Heart size is normal. No pericardial effusion. No mediastinal adenopathy by size criteria. Thoracic aorta and central pulmonary arteries are normal in size. Esophagus is normal in caliber. No hiatal hernia. Bones and chest wall: No suspicious bony lesions. No vertebral body compression fractures. No axillary or supraclavicular adenopathy by size criteria. Thyroid gland is normal. Abdomen: Visualized upper abdominal solid organs and bowel loops appear normal in the absence of contrast. IMPRESSION: Interval development of a 9 x 6 mm right middle lobe pulmonary nodule. Left upper lobe scarring now demonstrates a 7 mm nodular component. These findings are indeterminate. The right-sided nodule is at the lower limits of PET CT. The right-sided nodule may be amenable to CT guided sampling although given the degree of emphysema risk for a pneumothorax requiring hospitalization would be significant. Left-sided nodule is too small for percutaneous biopsy and will require followup CT is described below. Fleischner Society criteria for SOLID lung nodule followup. Nodule size (mm)Low-risk patientHigh-risk patient?4No follow-up neededFollow-up at 12 mo; if no change, no further follow-up>[id number] CT at 12 mo; if no change, no further follow-up needed.Initial follow-up CT at 6-12 mo, then 18-24 mo if no change. >6-8Initial follow-up CT at 6-12 mo, then 18-24 mo if no change. Initial follow-up CT at 3-6 mo, then 9-12 mo and 24 mo if no change. >8Follow-up CT at 3, 9, 24 mo. Or PET and/or biopsy.Same as for low-risk pts. Dictated by: Nigel Mac M.D. on 01/27/2018 at 10:27 Approved by: Nigel Mac M.D. on 01/27/2018 at 10:44
== END ==
PROVIDERS: Family Provider Internal Medicine Critical Care Medicine; PCP Family Medicine; Visit Provider Family Medicine
DX: R91.1 Solitary pulmonary nodule (principal); J43.9 Emphysema, unspecified
CPT/HCPCS: 71250

== ENCOUNTER 2018-02-06 14:12 | Emergency (ER) | payer MEDICARE, MEDICAID, SELFPAY ==
[2018-02-06 14:15] VITALS: BP 143/89; PULSE 94; RESP 22; TEMP 36.9; O2SAT 98
--- NOTE | 2018-02-06 14:19 | ED.ABDPAIN ---
HPI - Abdominal Pain General Chief Complaint: Abdominal Pain Stated Complaint: LEFT SIDED ABDOMINAL PAIN Time Seen by Provider: 02/06/18 14:19 Source: patient Mode of arrival: ambulatory Limitations: no limitations History of Present Illness HPI narrative: 57-year-old male with a history of COPD on oxygen at home here for evaluation of left lower quadrant abdominal pain. Patient states that it has been worsening over the past 3 days. He states he does have a history of diverticulitis however this does not feel like his prior history of that. Does get some relief after having bowel movements and passing gas however does not resolve completely. Does not have any nausea or vomiting. No fevers. No prior abdominal surgeries. Related Data Home Medications Medication Instructions Recorded Confirmed acetaminophen [Tylenol Extra 500 mg PO Q4HP PRN #1 02/20/13 02/01/18 Strength] alum-mag hydroxide-simeth [Mag-Al 30 ml PO PRN PRN #0 08/04/16 02/01/18 Plus] levalbuterol HCl [Xopenex] 1.25 mg INH Q6HP PRN #0 12/23/16 02/01/18 montelukast [Singulair] 10 mg PO QDAY #0 10/27/17 02/01/18 Previous Rx's Medication Instructions Recorded tiotropium bromide [Spiriva with 18 mcg INH QDAY #90 cap 07/10/16 HandiHaler] nystatin 5 ml PO QID #200 ml 08/31/17 albuterol sulfate [Ventolin HFA] 1 - 2 puff INH Q4HP PRN #1 inh 10/27/17 simvastatin 20 mg tablet 20 mg PO HS #90 tab 11/16/17 mometasone-formoterol HFA 200 2 inh INHALATION BID #1 puff 12/29/17 mcg-5 mcg/actuation aerosol inhaler clonazepam 0.5 mg tablet 0.5 mg PO BIDP PRN #30 tab 01/07/18 bupropion HCl XL 150 mg 24 hr 150 mg PO QAM #30 tab 02/01/18 tablet, extended release amoxicillin-pot clavulanate 1 tab PO Q12H 7 Days #14 tab 02/06/18 [Augmentin] Allergies Allergy/AdvReac Type Severity Reaction Status Date / Time cinnamon [CINNAMON] Allergy Severe RESP Verified 02/01/18 14:46 PROBLEMS AND SWELLING beclomethasone [From QVAR] Allergy Unknown Verified 02/01/18 14:46 budesonide [From SYMBICORT] Allergy Unknown unknown Verified 02/01/18 14:46 codeine [CODEINE] Allergy Unknown Verified 02/01/18 14:46 formoterol [From SYMBICORT] Allergy Unknown Verified 02/01/18 14:46 Sulfa (Sulfonamide Allergy Unknown Verified 02/01/18 14:46 Antibiotics) [SULFA (SULFONAMIDE ANTIBIOTICS)] trimethoprim [TRIMETHOPRIM] Allergy Unknown Verified 02/01/18 14:46 fluticasone [FLUTICASONE] AdvReac Intermediate FEELS Verified 02/01/18 14:46 LIKE FIRE IN THE LUNGS doxycycline [DOXYCYCLINE] AdvReac Mild N/V Verified 02/01/18 14:46 prednisone [PREDNISONE] AdvReac Mild SHAKY AND Verified 02/01/18 14:46 WEAK ON HIGHER DOSES Review of Systems Constitutional Denies fatigue, Denies fever(s) and Denies headache(s) ENT Ears, Nose, Mouth, and Throat: Denies headache(s) Cardiovascular Denies chest pain Respiratory Comments: No change in his respiratory status Gastrointestinal Gastrointestinal: Reports abdominal pain, Denies constipation, Denies dyspepsia, Denies diarrhea and Denies nausea Genitourinary Denies dysuria and Denies flank pain Integumentary/Breasts Denies lesions and Denies rash Neurologic Denies headache(s) Endocrine Denies fatigue Hematologic/Lymphatic Denies easy bleeding and Denies easy bruising PFSH Medical History Anxiety (Chronic ~2015) Asthma (Chronic Unknown) COPD (chronic obstructive pulmonary disease) (Chronic ~2013) Hyperlipidemia (Chronic ~2015) Insomnia (Chronic ~2015) Hematuria (Resolved ~2014) TIA (transient ischemic attack) (Resolved 05/2014) Family History Mother Age: 79 Hypertension Sister Age: 62 Cancer Social History Smoking Status: Current every day smoker alcohol intake: never Comment: Reviewed patient's past medical surgical social and family history Exam Initial Vital Signs Initial Vital Signs: Vital Signs Temperature 98.4 F 02/06/18 14:15 Pulse Rate 94 H 02/06/18 14:15 Respiratory Rate 22 02/06/18 14:15 Blood Pressure 143/89 H 02/06/18 14:15 Pulse Oximetry 98 02/06/18 14:15 Const General: cooperative, well groomed and No acute distress Orientation: alert, awake and oriented x3 Resp Other: Tachypneic, on oxygen, at baseline per patient Cardio Rate: regular rate Rhythm: regular rhythm Pulses: radial pulses present GI Other: Left lower quadrant abdominal pain without rebound or guarding Otherwise unremarkable abdomen exam Back/Spine/Pelvis Back: No CVA tenderness Skin Lesions: no lesions Rashes: no rashes Neuro General: alert, awake and oriented x3 Cognition: normal cognition Speech: speech normal Extrem General: normal to inspection Psych Appearance: grossly normal and well kempt Affect: normal affect Course Orders Ordered: ED Orders 02/06/18 14:53 CT abdomen pelvis w con Stat 02/06/18 15:05 Complete Blood Count AUTO DIFF Stat Comprehensive Metabolic Panel Stat Lactate (Lactic Acid) Stat Lipase Stat Discontinued Medications Sodium Chloride (Normal Saline 0.9%) 1,000 mls @ 500 mls/hr IV BOLUS ONE Stop: 02/06/18 16:51 Last Infusion: 02/06/18 16:14 Dose: 0 mls/hr Admin: 02/06/18 15:13 Dose: 500 mls/hr Vital Signs - 8 hr 02/06/18 14:15 02/06/18 15:54 Temperature 98.4 F Pulse Rate 94 H 80 Respiratory Rate 22 18 Blood Pressure 143/89 H Blood Pressure [Left Arm] 138/75 H Pulse Oximetry 98 95 MDM - Abdominal Pain Lab Data Attestation: I reviewed the patient's lab results. Result diagrams: 02/06/18 15:05 02/06/18 15:05 Lab Results 02/06/18 02/06/18 02/06/18 Range/Units 15:05 15:05 15:05 WBC 12.6 H (4.5-11.0) X10^3/uL RBC 5.28 (4.5-5.9) X10^6/uL Hgb 15.4 (13.5-17.5) g/dL Hct 45.2 (41-53) % MCV 85.6 (80-100) fL MCH 29.2 (26-34) PG MCHC 34.2 (30-36) % RDW 14.3 (11.6-14.8) % Plt Count 158 (150-400) X10^3/uL Neut % (Auto) 73.9 (50-75) % Lymph % (Auto) 19.2 L (25-40) % [place] % (Auto) 5.0 (3-14) % Eos % (Auto) 1.1 L (2-4) % Baso % (Auto) 0.8 (0-2) % Neut # (Auto) 9300 H (0623-3785) /uL Sodium 142 (137-145) mmol/L Potassium 4.4 (3.4-5.1) mmol/L Chloride 102 (98-107) mmol/L Carbon Dioxide 31 (22-32) mmol/L BUN 10 (9-20) mg/dL Creatinine 0.90 (0.66-1.25) mg/dL Estimated GFR > 60.0 (>60) mL/min BUN/Creatinine Ratio 11.1 (6-22) Glucose 79 (70-100) mg/dL Lactate 0.8 (0.7-2.1) mmol/L Calcium 9.3 (8.4-10.2) mg/dL Total Bilirubin 0.4 (0.2-1.3) mg/dL AST 21 (17-59) IU/L ALT 22 (21-72) IU/L Alkaline Phosphatase 66 (38-126) U/L Total Protein 7.5 (6.3-8.2) g/dL Albumin 4.3 (3.5-5.0) g/dL Globulin 3.2 (1.7-4.1) g/dL Albumin/Globulin Ratio 1.3 (1.0-2.8) Lipase 129 (23-300) U/L Point of care testing: Urine Dip Bedside Urine Glucose Negative Bedside Urine Bilirubin - Negative Bedside Urine Ketone - Negative Urine Specific [place] 1.015 Bedside Urine Occult Blood +/- Bedside Urine pH 6.0 Bedside Urine Protein - Negative Bedside Urine Urobilinogen - Negative Bedside Urine Nitrite - Negative Bedside Urine Leukocytes - Negative Esterase Imaging Data CT scan - abdomen: Radiologist's impression: PROCEDURE: CT ABDOMEN PELVIS W CON INDICATIONS: Left-sided abdominal pain TECHNIQUE: After the administration of intravenous contrast, 5 mm thick sections acquired from the diaphragm to the symphysis. 5 mm coronal and sagittal reformats were acquired. For radiation dose reduction, the following was used: automated exposure control, adjustment of mA and/or kV according to patient size. COMPARISON: [facility], CT, ABDOMEN/PELVIS WITH CONTRAST, 09/20/2016, 4:05. FINDINGS: Image quality: Excellent. ABDOMEN: Lung bases: Lung bases are clear. Heart size is normal. Solid organs: Liver is normal in size and enhancement. Gallbladder is unremarkable. Biliary system is non dilated. Pancreas enhances normally. Spleen is normal in size and enhancement. No adrenal nodules. Kidneys demonstrate normal size and enhancement, without hydronephrosis. A nonobstructing 9 mm in length calculus is present in the lower pole of the right kidney. Peritoneum and bowel: Bowel loops demonstrate normal wall thickness and caliber. The appendix is thin walled and gas filled. There extensive sigmoid colon diverticular outpouchings. Segmental pericolonic fat stranding and trace free fluid is present within the superior sigmoid. No pneumoperitoneum or findings to suggest intra-abdominal abscess. Nodes and vessels: No retroperitoneal or mesenteric adenopathy by size criteria. Aorta and inferior vena cava are normal in size. There are scattered atheromatous calcifications throughout the aorta and iliac arteries bilaterally. Miscellaneous: No ventral hernias. PELVIS: Genitourinary: Bladder wall thickness is normal. Miscellaneous: No inguinal hernias or adenopathy. Bones: No suspicious bony lesions. No vertebral body compression fractures. IMPRESSION: 1. Acute nonperforated sigmoid colon diverticulitis. 2. Normal appendix. These findings were discussed with Dr. Gale at 3:58 PM on 02/06/18. [facility] Narrative Medical decision making narrative: Patient with history and physical exam and CT scan findings consistent with left-sided diverticulitis without perforation or abscess. Patient had a relatively benign abdominal exam. He states he has been on Augmentin in the past for his diverticulitis. Will send him home with a prescription for this. He was given return precautions. He expressed understanding and agreement with plan Discharge Plan Departure Patient Disposition: Home, Self-Care Clinical Impression: Diverticulitis Discharge Date/Time: 02/06/18 16:20 Interventions: ED Discharge Assessment Last Done: 02/06/18 16:17 Instructions: Diverticulitis Activity Restrictions/Additional Instructions: Take all of the antibiotics like we discussed. Call your primary care doctor for a follow-up. Return to the emergency department for any new or worsening symptoms Prescriptions: New amoxicillin-pot clavulanate [Augmentin] 875-125 mg tablet 1 tab PO Q12H 7 Days Qty: 14 RF: 0 No Action mometasone-formoterol [Dulera] 200-5 mcg/actuation HFA aerosol inhaler 2 inh INHALATION BID Qty: 1 RF: 6 bupropion HCl [Wellbutrin XL] 150 mg tablet extended release 24 hr 150 mg PO QAM Qty: 30 RF: 2 acetaminophen [Tylenol Extra Strength] 500 MG tablet 500 mg PO Q4HP PRNQty: 1 RF: 0 tiotropium bromide [Spiriva with HandiHaler] 18 MCG capsule, w/inhalation device 18 mcg INH QDAY Qty: 90 RF: 3 alum-mag hydroxide-simeth [Mag-Al Plus] 30 ML suspension 30 ml PO PRN PRNQty: 0 RF: 0 levalbuterol HCl [Xopenex] 1.25 MG/3 ML solution for nebulization 1.25 mg INH Q6HP PRNQty: 0 RF: 0 nystatin 100,000 UNIT/1 ML suspension 5 ml PO QID Qty: 200 RF: 0 montelukast [Singulair] 10 MG tablet 10 mg PO QDAY Qty: 0 RF: 0 albuterol sulfate [Ventolin HFA] 90 MCG/PUFF HFA aerosol inhaler 1 - 2 puff INH Q4HP PRNQty: 1 RF: 6 simvastatin 20 mg tablet 20 mg PO HS Qty: 90 RF: 1 clonazepam 0.5 mg tablet 0.5 mg PO BIDP PRN (Reason: anxiety) Qty: 30 RF: 0
--- NOTE | 2018-02-06 14:53 | DI.CT.S_ITS ---
PROCEDURE: CT ABDOMEN PELVIS W CON INDICATIONS: Left-sided abdominal pain TECHNIQUE: After the administration of intravenous contrast, 5 mm thick sections acquired from the diaphragm to the symphysis. 5 mm coronal and sagittal reformats were acquired. For radiation dose reduction, the following was used: automated exposure control, adjustment of mA and/or kV according to patient size. COMPARISON: [facility], CT, ABDOMEN/PELVIS WITH CONTRAST, 09/20/2016, 4:05. FINDINGS: Image quality: Excellent. ABDOMEN: Lung bases: Lung bases are clear. Heart size is normal. Solid organs: Liver is normal in size and enhancement. Gallbladder is unremarkable. Biliary system is non dilated. Pancreas enhances normally. Spleen is normal in size and enhancement. No adrenal nodules. Kidneys demonstrate normal size and enhancement, without hydronephrosis. A nonobstructing 9 mm in length calculus is present in the lower pole of the right kidney. Peritoneum and bowel: Bowel loops demonstrate normal wall thickness and caliber. The appendix is thin walled and gas filled. There extensive sigmoid colon diverticular outpouchings. Segmental pericolonic fat stranding and trace free fluid is present within the superior sigmoid. No pneumoperitoneum or findings to suggest intra-abdominal abscess. Nodes and vessels: No retroperitoneal or mesenteric adenopathy by size criteria. Aorta and inferior vena cava are normal in size. There are scattered atheromatous calcifications throughout the aorta and iliac arteries bilaterally. Miscellaneous: No ventral hernias. PELVIS: Genitourinary: Bladder wall thickness is normal. Miscellaneous: No inguinal hernias or adenopathy. Bones: No suspicious bony lesions. No vertebral body compression fractures. IMPRESSION: 1. Acute nonperforated sigmoid colon diverticulitis. 2. Normal appendix. These findings were discussed with Dr. Gale at 3:58 PM on 02/06/18. Dictated by: Daphne Redd M.D. on 02/06/2018 at 15:56 Approved by: Daphne Redd M.D. on 02/06/2018 at 16:00
[2018-02-06] MEDS: SODIUM CHLORIDE 0.9% 1,000 ML 500 ML IV (15:13)
[2018-02-06 15:20] LABS: Add Manual Diff / Slide Review NO; Basophils Percent Auto 0.8 % (0-2); Eosinophils Percent Auto 1.1 % (2-4); Hematocrit 45.2 % (41-53); Hemoglobin 15.4 g/dL (13.5-17.5); Lymphocytes Percent Auto 19.2 % (25-40); Mean Corpuscular HGB Conc 34.2 % (30-36); Mean Corpuscular Hemoglobin 29.2 PG (26-34); Mean Corpuscular Volume 85.6 fL (80-100); Neutrophils Absolute Auto 9300 /uL (3000-5900); Neutrophils Percent Auto 73.9 % (50-75); Platelet Count 158 X10^3/uL (150-400); Red Blood Cell Count 5.28 X10^6/uL (4.5-5.9); Red Cell Distribution Width 14.3 % (11.6-14.8); White Blood Cell Count 12.6 X10^3/uL (4.5-11.0)
[2018-02-06 15:35] LABS: Alanine Aminotransferase 22 IU/L (21-72); Albumin 4.3 g/dL (3.5-5.0); Albumin Globulin Ratio 1.3 (1.0-2.8); Alkaline Phosphatase 66 U/L (38-126); Aspartate Aminotransferase 21 IU/L (17-59); BUN Creatinine Ratio 11.1 (6-22); Bilirubin Total 0.4 mg/dL (0.2-1.3); Blood Urea Nitrogen 10 mg/dL (9-20); Calcium 9.3 mg/dL (8.4-10.2); Carbon Dioxide 31 mmol/L (22-32); Chloride 102 mmol/L (98-107); Estimated Glomerular Filt Rate > 60.0 mL/min (>60); Globulin 3.2 g/dL (1.7-4.1); Glucose 79 mg/dL (70-100); HEMOLYSIS < 15 (0-50); Lipase 129 U/L (23-300); Potassium 4.4 mmol/L (3.4-5.1); Sodium 142 mmol/L (137-145); Total Protein 7.5 g/dL (6.3-8.2)
[2018-02-06 15:47] LABS: Lactate (Lactic Acid) 0.8 mmol/L (0.7-2.1)
[2018-02-06 15:54] VITALS: BP 138/75; PULSE 80; RESP 18; O2SAT 95
== END 2018-02-06 16:20 | disposition home or self-care (01) ==
PROVIDERS: Emergency Provider Emergency Medicine; PCP Family Medicine
DX: K57.92 Diverticulitis of intestine, part unspecified, without perforation or abscess without bleeding (principal)
CPT/HCPCS: 36591; 74177; 80053; 81003; 83605; 83690; 85025; 96360; 99283; 99285; Q9967

== ENCOUNTER 2018-02-06 23:22 | Emergency (ER) | payer MEDICARE, MEDICAID, SELFPAY ==
[2018-02-06 23:30] VITALS: BP 166/85; PULSE 90; RESP 22; TEMP 36.8; O2SAT 95; BMI 26.2
--- NOTE | 2018-02-06 23:30 | DI.RAD.S_ITS ---
PROCEDURE: XR ACUTE ABDOMEN SERIES INDICATIONS: vomiting pain sob new diverticuitis today TECHNIQUE: One view chest and two views of the abdomen were acquired. COMPARISON: [facility], CT, CT ABDOMEN PELVIS W CON, 02/06/2018, 15:22. [facility], CT, ABDOMEN/PELVIS WITH CONTRAST, 09/20/2016, 4:05. [facility], CT, CT CHEST WO CON, 01/27/2018, 9:58. [facility], CR, XR CHEST 2V, 12/26/2017, 0:52. [facility], CR, XR CHEST 1V, 11/29/2017, 15:36. [facility], CR, CHEST 2 VIEW, 08/29/2017, 16:04. [facility], CR, CHEST 1 VIEW, 06/18/2017, 17:09. [facility], CR, CHEST 1 VIEW, 03/15/2017, 2:19. [facility], CR, CHEST 2 VIEW, 01/31/2017, 21:35. [facility], CR, CHEST 1 VIEW, 12/23/2016, 19:55. [facility], CR, CHEST 1 VIEW, 11/24/2016, 17:40. FINDINGS: Surgical changes and devices: None. Chest: Lungs are clear. Heart size is normal. No pleural effusions. No pneumoperitoneum. Abdomen: Bowel gas pattern is normal. No suspicious calcifications. Visualized solid organ contours appear normal. Contrast material noted in the urinary bladder related to recent abdomen/pelvis CT scan. Bones: No suspicious bony lesions. IMPRESSION: No acute disease process identified by plain radiograph. Dictated by: Lianet Celis MD, PhD on 02/07/2018 at 9:44 Approved by: Lianet Celis MD, PhD on 02/07/2018 at 9:46
[2018-02-06] MEDS: MORPHINE 2 MG/ML INJ IV (23:38)
--- NOTE | 2018-02-07 00:12 | ED.NAVMDI ---
HPI - Nausea/Vomiting/Diarrhea General Chief complaint: Nausea/Vomiting/Diarrhea Stated complaint: N/V Time Seen by Provider: 02/06/18 23:30 Source: patient, RN notes reviewed and old records reviewed Mode of arrival: ambulatory Limitations: no limitations History of Present Illness HPI Narrative: Patient is a 57-year-old male who has chronic COPD on home O2 just seen in the ED and released and diagnosed with diverticulitis. He had abdominal CT and blood work prescribed Augmentin. He went home and continued to have some discomfort all but was not bad. He then started feeling nauseous and vomited couple of times. During the episode of vomiting he got extremely short of breath which concerned him due to his decreased respiratory status. He has received Zofran and is feeling much better. He is having some mild abdominal discomfort but does not feel worse than previously. He has not had any diarrhea no chest pain or heart palpitations. MD complaint: nausea, vomiting and abdominal pain Onset (ago): minute(s) Description of Diarrhea: none Related Data Home Medications Medication Instructions Recorded Confirmed acetaminophen [Tylenol Extra 500 mg PO Q4HP PRN #1 02/20/13 02/01/18 Strength] alum-mag hydroxide-simeth [Mag-Al 30 ml PO PRN PRN #0 08/04/16 02/01/18 Plus] levalbuterol HCl [Xopenex] 1.25 mg INH Q6HP PRN #0 12/23/16 02/01/18 montelukast [Singulair] 10 mg PO QDAY #0 10/27/17 02/01/18 Previous Rx's Medication Instructions Recorded tiotropium bromide [Spiriva with 18 mcg INH QDAY #90 cap 07/10/16 HandiHaler] nystatin 5 ml PO QID #200 ml 08/31/17 albuterol sulfate [Ventolin HFA] 1 - 2 puff INH Q4HP PRN #1 inh 10/27/17 simvastatin 20 mg tablet 20 mg PO HS #90 tab 11/16/17 mometasone-formoterol HFA 200 2 inh INHALATION BID #1 puff 12/29/17 mcg-5 mcg/actuation aerosol inhaler clonazepam 0.5 mg tablet 0.5 mg PO BIDP PRN #30 tab 01/07/18 bupropion HCl XL 150 mg 24 hr 150 mg PO QAM #30 tab 02/01/18 tablet, extended release amoxicillin-pot clavulanate 1 tab PO Q12H 7 Days #14 tab 02/06/18 [Augmentin] ondansetron [Zofran ODT] 4 mg PO Q6-8H PRN #10 tab 02/07/18 Allergies Allergy/AdvReac Type Severity Reaction Status Date / Time cinnamon [CINNAMON] Allergy Severe RESP Verified 02/01/18 14:46 PROBLEMS AND SWELLING beclomethasone [From QVAR] Allergy Unknown Verified 02/01/18 14:46 budesonide [From SYMBICORT] Allergy Unknown unknown Verified 02/01/18 14:46 codeine [CODEINE] Allergy Unknown Verified 02/01/18 14:46 formoterol [From SYMBICORT] Allergy Unknown Verified 02/01/18 14:46 Sulfa (Sulfonamide Allergy Unknown Verified 02/01/18 14:46 Antibiotics) [SULFA (SULFONAMIDE ANTIBIOTICS)] trimethoprim [TRIMETHOPRIM] Allergy Unknown Verified 02/01/18 14:46 fluticasone [FLUTICASONE] AdvReac Intermediate FEELS Verified 02/01/18 14:46 LIKE FIRE IN THE LUNGS doxycycline [DOXYCYCLINE] AdvReac Mild N/V Verified 02/01/18 14:46 prednisone [PREDNISONE] AdvReac Mild SHAKY AND Verified 02/01/18 14:46 WEAK ON HIGHER DOSES Review of Systems Review of Systems All systems reviewed & are unremarkable except as noted in HPI and below Constitutional Denies chills, Denies fever(s), Denies lethargy and Denies weakness Cardiovascular Denies chest pain, Denies lightheadedness and Denies palpitations Respiratory Reports as per HPI Comments: Chronic COPD on home to Gastrointestinal Gastrointestinal: Reports as per HPI Musculoskeletal Denies back pain, Denies muscle weakness, Denies numbness and Denies tingling Integumentary/Breasts Denies pruritus, Denies erythema, Denies rash and Denies wounds Neurologic Denies numbness, Denies tingling and Denies weakness Endocrine Denies palpitations PFSH Social History Smoking Status: Current every day smoker alcohol intake: never Exam Initial Vital Signs Initial Vital Signs: Vital Signs Temperature 98.2 F 02/06/18 23:30 Pulse Rate 90 02/06/18 23:30 Respiratory Rate 22 02/06/18 23:30 Blood Pressure 166/85 H 02/06/18 23:30 Pulse Oximetry 95 02/06/18 23:30 Const General: cooperative, No in distress and ill appearing (A chronically ill) Orientation: alert, awake and oriented x3 Neck Neck: normal visual inspection and full ROM Chest Chest: normal inspection of the chest Resp Effort & Inspection: normal respiratory effort Auscultation: clear to auscultation bilaterally, no rales, no rhonchi and no wheezes Cardio Rate: regular rate Rhythm: regular rhythm Heart Sounds: S1 normal and S2 normal GI Inspection: normal to inspection Palpation: soft, No firm, No guarding and tender (Lower left tenderness without guarding or rebound) General: No CVA tenderness Skin General: no rashes or lesions noted, No jaundice and No petechiae Neuro General: alert, awake and oriented x3 Cranial Nerves: CN's II-XI intact bilaterally Course Orders Ordered: ED Orders 02/06/18 23:30 XR acute abdomen series Stat Discontinued Medications Morphine Sulfate (Morphine) 2 mg IV NOW ONE Stop: 02/06/18 23:31 Last Admin: 02/06/18 23:38 Dose: 2 mg Ondansetron HCl (Zofran Odt Prepack) 1 bottle MISC SEEINSTR ONE Stop: 02/07/18 00:10 Last Admin: 02/07/18 00:26 Dose: 1 bottle Vital Signs - 8 hr 02/06/18 23:30 02/07/18 01:36 Temperature 98.2 F Pulse Rate 90 85 Respiratory Rate 22 20 Blood Pressure 166/85 H 136/72 H Pulse Oximetry 95 98 MDM - Nausea/Vomiting/Diarrhea Medical Records Attestation: I reviewed the patient's medical records. Imaging Data Abdominal x-ray: Attestation: I personally reviewed and interpreted this imaging study as follows: My impression: No free air no air-fluid levels, lungs no acute cardiopulmonary process MDM Narrative Medical decision making narrative: Feeling better after Zofran. No sign of perforation. Abdomen remains slightly tender. Breathing much better and back to normal. Discharge Plan Departure Patient Disposition: Home, Self-Care Clinical Impression: Vomiting, Diverticulitis Discharge Date/Time: 02/07/18 00:35 Interventions: ED Discharge Assessment Last Done: 02/07/18 01:36 Instructions: DI for Vomiting -- Adult Activity Restrictions/Additional Instructions: *You have been diagnosed with vomiting, diverticulitis *What to do: Recommend clear liquid diet for the next couple of days, may advance as tolerated *Continue to take medications as directed -faxed [facility] *Follow up with your primary care provider in 2-3 days *Return to ER if you should have persistent vomiting despite Zofran, increased pain, or any new, worsening or concerning symptoms Prescriptions: New ondansetron [Zofran ODT] 4 mg tablet,disintegrating 4 mg PO Q6-8H PRN (Reason: nausea and vomiting) Qty: 10 RF: 0 No Action mometasone-formoterol [Dulera] 200-5 mcg/actuation HFA aerosol inhaler 2 inh INHALATION BID Qty: 1 RF: 6 bupropion HCl [Wellbutrin XL] 150 mg tablet extended release 24 hr 150 mg PO QAM Qty: 30 RF: 2 acetaminophen [Tylenol Extra Strength] 500 MG tablet 500 mg PO Q4HP PRNQty: 1 RF: 0 tiotropium bromide [Spiriva with HandiHaler] 18 MCG capsule, w/inhalation device 18 mcg INH QDAY Qty: 90 RF: 3 alum-mag hydroxide-simeth [Mag-Al Plus] 30 ML suspension 30 ml PO PRN PRNQty: 0 RF: 0 levalbuterol HCl [Xopenex] 1.25 MG/3 ML solution for nebulization 1.25 mg INH Q6HP PRNQty: 0 RF: 0 nystatin 100,000 UNIT/1 ML suspension 5 ml PO QID Qty: 200 RF: 0 montelukast [Singulair] 10 MG tablet 10 mg PO QDAY Qty: 0 RF: 0 albuterol sulfate [Ventolin HFA] 90 MCG/PUFF HFA aerosol inhaler 1 - 2 puff INH Q4HP PRNQty: 1 RF: 6 simvastatin 20 mg tablet 20 mg PO HS Qty: 90 RF: 1 clonazepam 0.5 mg tablet 0.5 mg PO BIDP PRN (Reason: anxiety) Qty: 30 RF: 0 amoxicillin-pot clavulanate [Augmentin] 875-125 mg tablet 1 tab PO Q12H 7 Days Qty: 14 RF: 0 Referrals: Mary Ann,Naye, DO [Primary Care Provider] -
[2018-02-07] MEDS: ONDANSETRON 4 MG ODT PREPACK 1 BOTTLE MISC (00:26)
[2018-02-07 01:36] VITALS: BP 136/72; PULSE 85; RESP 20; O2SAT 98
== END 2018-02-07 00:35 | disposition home or self-care (01) ==
PROVIDERS: Emergency Provider Emergency Medicine; PCP Family Medicine
DX: K57.92 Diverticulitis of intestine, part unspecified, without perforation or abscess without bleeding (principal); R11.10 Vomiting, unspecified
CPT/HCPCS: 74022; 96374; 99282; 99283; J2270

== ENCOUNTER 2018-03-10 03:20 | Emergency (ER) | payer MEDICARE, MEDICAID, SELFPAY ==
[2018-03-10 03:33] VITALS: BP 154/84; PULSE 93; RESP 22; O2SAT 96
--- NOTE | 2018-03-10 03:42 | DI.RAD.S_ITS ---
PROCEDURE: XR CHEST 1V INDICATIONS: hemoptysis TECHNIQUE: One view of the chest was acquired. COMPARISON: [facility], CR, XR CHEST 1V, 11/29/2017, 15:36. CT from 01/28/2018. FINDINGS: Surgical changes and devices: None. Lungs and pleura: Emphysema. Previously noted right midlung pulmonary nodule is poorly seen. Otherwise, the lungs are clear. Mediastinum: Mediastinal contours appear normal. Heart size is normal. Bones and chest wall: No suspicious bony lesions. Overlying soft tissues appear unremarkable. IMPRESSION: No radiographic evidence of acute cardiopulmonary pathology. Previously noted right midlung pulmonary opacity is poorly seen. Emphysema. Dictated by: Nigel Mac M.D. on 03/10/2018 at 8:27 Approved by: Nigel Mac M.D. on 03/10/2018 at 8:31
--- NOTE | 2018-03-10 03:45 | ED_ITS ---
HPI - URI/Sore Throat General Chief Complaint: Upper Respiratory Symptoms Stated Complaint: Coughing up Blood Time Seen by Provider: 03/10/18 03:29 Source: patient and family Mode of arrival: ambulatory Limitations: no limitations History of Present Illness HPI Narrative: Patient presents to the emergency department complaining of coughing up blood. States he has had a cough and URI symptoms for several days , but the episode of coughing up blood just began today. Patient states he has not been chronically ill with anything. He has not had any unexplained weight loss. No chronic productive cough. No known history of tuberculosis or cancer. Patient states that he has not had any epistaxis. States he looked in the back of his throat to see if anything was bleeding, and he did not see anything. Patient denies any easy bruising or bleeding anywhere else. He states that when he coughed up the blood, it was actually a small glob of mucus mixed with blood. This happened about 3 times. Patient denies fevers or chills. MD Complaint: cough Onset (ago): day(s) ( On) Severity: mild Relieving factors: nothing Exacerbating factors: other ( coughing) Description of mucous: yellow ( mixed with white) and other Able to tolerate fluids by mouth: Yes Context: other ( with no known sick contacts. No recent travel.) Associated symptoms: denies other symptoms Treatments prior to arrival: none Related Data Home Medications Medication Instructions Recorded Confirmed acetaminophen [Tylenol Extra 500 mg PO Q4HP PRN #1 02/20/13 03/03/18 Strength] alum-mag hydroxide-simeth [Mag-Al 30 ml PO PRN PRN #0 08/04/16 03/03/18 Plus] levalbuterol HCl [Xopenex] 1.25 mg INH Q6HP PRN #0 12/23/16 03/03/18 montelukast [Singulair] 10 mg PO QDAY #0 10/27/17 03/03/18 Previous Rx's Medication Instructions Recorded tiotropium bromide [Spiriva with 18 mcg INH QDAY #90 cap 07/10/16 HandiHaler] albuterol sulfate [Ventolin HFA] 1 - 2 puff INH Q4HP PRN #1 inh 10/27/17 simvastatin 20 mg tablet 20 mg PO HS #90 tab 11/16/17 mometasone-formoterol HFA 200 2 inh INHALATION BID #1 puff 12/29/17 mcg-5 mcg/actuation aerosol inhaler ondansetron [Zofran ODT] 4 mg PO Q6-8H PRN #10 tab 02/07/18 clonazepam 0.5 mg tablet 0.5 mg PO BIDP PRN #30 tab 02/16/18 nystatin 100,000 unit/mL oral 5 ml PO QID #200 ml 02/16/18 suspension azithromycin 250 mg tablet See Label Instructions PO .COMPLEX 03/03/18 #6 tab cetirizine 10 mg capsule 10 mg PO DAILY #30 cap 03/03/18 Allergies Allergy/AdvReac Type Severity Reaction Status Date / Time cinnamon [CINNAMON] Allergy Severe RESP Verified 03/03/18 09:24 PROBLEMS AND SWELLING beclomethasone [From QVAR] Allergy Unknown Verified 03/03/18 09:24 budesonide [From SYMBICORT] Allergy Unknown unknown Verified 03/03/18 09:24 codeine [CODEINE] Allergy Unknown Verified 03/03/18 09:24 formoterol [From SYMBICORT] Allergy Unknown Verified 03/03/18 09:24 Sulfa (Sulfonamide Allergy Unknown Verified 03/03/18 09:24 Antibiotics) [SULFA (SULFONAMIDE ANTIBIOTICS)] trimethoprim [TRIMETHOPRIM] Allergy Unknown Verified 03/03/18 09:24 fluticasone [FLUTICASONE] AdvReac Intermediate FEELS Verified 03/03/18 09:24 LIKE FIRE IN THE LUNGS doxycycline [DOXYCYCLINE] AdvReac Mild N/V Verified 03/03/18 09:24 prednisone [PREDNISONE] AdvReac Mild SHAKY AND Verified 03/03/18 09:24 WEAK ON HIGHER DOSES Review of Systems Review of Systems All systems reviewed & are unremarkable except as noted in HPI and below Constitutional Denies chills, Denies fever(s), Denies lethargy and Denies weakness Eyes Denies change in vision, Denies eye discharge, Denies irritation and Denies loss of vision ENT Ears, Nose, Mouth, and Throat: Denies change in voice, Denies neck pain and Denies sore throat Cardiovascular Denies chest pain, Denies irregular heart rhythm, Denies lightheadedness, Denies palpitations, Denies dyspnea, Denies dyspnea on exertion and Denies orthopnea Respiratory Denies cough, Reports hemoptysis ( Mild), Denies dyspnea, Denies dyspnea on exertion and Denies wheezing Gastrointestinal Gastrointestinal: Denies abdominal pain, Denies change in bowel habits, Denies diarrhea, Denies nausea and Denies vomiting Genitourinary Denies hematuria, Denies flank pain, Denies urinary incontinence and Denies urinary urgency Musculoskeletal Denies neck pain Integumentary/Breasts Denies pruritus, Denies erythema, Denies rash and Denies wounds Neurologic Denies confusion, Denies loss of vision and Denies weakness Psychiatric Denies anxiety, Denies confusion, Denies depression, Denies homicidal ideation and Denies suicidal ideation Endocrine Denies palpitations Hematologic/Lymphatic Denies easy bruising Allergic/Immunologic Denies wheezing [facility] Medical History Anxiety (Chronic ~2015) Asthma (Chronic Unknown) COPD (chronic obstructive pulmonary disease) (Chronic ~2013) Hyperlipidemia (Chronic ~2015) Insomnia (Chronic ~2015) Hematuria (Resolved ~2014) TIA (transient ischemic attack) (Resolved 05/2014) Surgical History No pertinent past surgical history (Acute) Family History Mother Age: 79 Hypertension Sister Age: 62 Cancer Social History Smoking Status: Current every day smoker alcohol intake: never Exam Initial Vital Signs Initial Vital Signs: Vital Signs Pulse Rate 93 H 03/10/18 03:33 Respiratory Rate 22 03/10/18 03:33 Blood Pressure 154/84 H 03/10/18 03:33 Pulse Oximetry 96 03/10/18 03:33 Const General: cooperative and well developed Nutritional Appearance: well nourished Orientation: alert, awake, oriented x3 and not confused HENNY Head: normocephalic and atraumatic Ears: external ears normal and TM's normal bilaterally Nose: external nose normal and No nasal discharge Face and sinus: sinuses nontender, face symmetric, no sinus tenderness and No dry mucous membranes Mouth: oral mucosae normal and moist mucous membranes Teeth and gingiva: dentition normal Throat: posterior oropharynx normal ( no blood present), tonsils normal and uvula midline Eyes General: appearance normal, both eyes and all related structures Eyelids: eyelids normal Conjunctivae: conjunctivae normal Sclera: sclerae normal Pupils: PERRL EOM: EOM intact bilaterally Neck Neck: normal visual inspection, trachea midline, No lymphadenopathy, No midline deformity and No JVD Lymphatic: No lymphedema Chest Chest: normal inspection of the chest Resp Effort & Inspection: normal respiratory effort, able to speak in complete sentences, no respiratory distress and no use of accessory muscles Auscultation: clear to auscultation bilaterally, no rales, no rhonchi and no wheezes Cardio Rate: regular rate Rhythm: regular rhythm Heart Sounds: no click, no gallops, no murmurs and no rubs Pulses: normal peripheral pulses GI Inspection: non-distended Palpation: soft, no hepatosplenomegaly, No guarding, No pulsatile mass and No tender Auscultation: normal bowel sounds Back/Spine/Pelvis Back: No CVA tenderness Cervical Spine: cervical ROM normal and No pain with cervical ROM Thoracic/Lumbar Spine: thoracic and lumbar spine normal to inspection Skin General: no rashes or lesions noted, No jaundice and No petechiae Neuro General: alert, oriented x3, gait normal and no focal motor deficits Speech: speech normal Extrem General: full ROM, no clubbing, cyanosis or edema, no pedal edema and no calf tenderness Psych Appearance: well kempt Mental Status: mental status grossly normal Attitude: cooperative Thought Content: normal and suicidality Judgment: judgment good Course Hospital Course: patient was evaluated by myself in the emergency department for what sounded like a fairly mild episode of hemoptysis. The patient did not have any active or ongoing hemoptysis at the time my evaluation. Additionally, his exam was completely normal. Due to the patient's concerns, I did send him for a chest x- ray which was found to be unremarkable. I have discussed with the patient that I do not find evidence of a serious cause of his hemoptysis, and that likely, this is simply due to the stresses of coughing particularly since the patient has been coughing for several days now. We have discussed symptomatic management home. The usual indications for return have also been discussed. No emergent intervention is otherwise indicated. Orders Ordered: ED Orders 03/10/18 EKG-12 Lead Routine 03/10/18 03:42 XR chest 1V Stat Vital Signs - 8 hr 03/10/18 03:33 Pulse Rate 93 H Respiratory Rate 22 Blood Pressure 154/84 H Pulse Oximetry 96 MDM - URI/Sore Throat Medical Records Attestation: I reviewed the patient's medical records. Imaging Data Chest x-ray: Attestation: I personally reviewed and interpreted this imaging study as follows: My impression: No acute disease. Radiologist's impression: PROCEDURE: XR CHEST 1V INDICATIONS: hemoptysis TECHNIQUE: One view of the chest was acquired. COMPARISON: [facility], , XR CHEST 1V, 11/29/2017, 15:36. CT from 2017. FINDINGS: Surgical changes and devices: None. Lungs and pleura: Emphysema. Previously noted right midlung pulmonary nodule is poorly seen. Otherwise, the lungs are clear. Mediastinum: Mediastinal contours appear normal. Heart size is normal. Bones and chest wall: No suspicious bony lesions. Overlying soft tissues appear unremarkable. IMPRESSION: No radiographic evidence of acute cardiopulmonary pathology. Previously noted right midlung pulmonary opacity is poorly seen. Emphysema. Dictated by: Nigel Mac M.D. on 03/10/2018 at 8:27 Approved by: Nigel Mac M.D. on 03/10/2018 at 8:31 Discharge Plan Departure Patient Disposition: Home Clinical Impression: COPD (chronic obstructive pulmonary disease), Cough with hemoptysis Discharge Date/Time: 03/10/18 04:47 Interventions: ED Discharge Assessment Last Done: 03/10/18 04:44 Instructions: DI for Chronic Obstructive Pulmonary Disease, DI for Hemoptysis Activity Restrictions/Additional Instructions: Your x-ray looks good. The most likely cause of your bloody sputum is a simple , benign source that will clear up on its own. However, if you have repeated bouts of this, you will need to have your doctor set you up with an ENT specialist for further evaluation. Prescriptions: No Action mometasone-formoterol [Dulera] 200-5 mcg/actuation HFA aerosol inhaler 2 inh INHALATION BID Qty: 1 RF: 6 cetirizine [All Day Allergy (cetirizine)] 10 mg capsule 10 mg PO DAILY Qty: 30 RF: 2 azithromycin [Zithromax] 250 mg tablet See Label Instructions PO .COMPLEX Qty: 6 RF: 0 acetaminophen [Tylenol Extra Strength] 500 MG tablet 500 mg PO Q4HP PRNQty: 1 RF: 0 tiotropium bromide [Spiriva with HandiHaler] 18 MCG capsule, w/inhalation device 18 mcg INH QDAY Qty: 90 RF: 3 alum-mag hydroxide-simeth [Mag-Al Plus] 30 ML suspension 30 ml PO PRN PRNQty: 0 RF: 0 levalbuterol HCl [Xopenex] 1.25 MG/3 ML solution for nebulization 1.25 mg INH Q6HP PRNQty: 0 RF: 0 montelukast [Singulair] 10 MG tablet 10 mg PO QDAY Qty: 0 RF: 0 albuterol sulfate [Ventolin HFA] 90 MCG/PUFF HFA aerosol inhaler 1 - 2 puff INH Q4HP PRNQty: 1 RF: 6 simvastatin 20 mg tablet 20 mg PO HS Qty: 90 RF: 1 clonazepam 0.5 mg tablet 0.5 mg PO BIDP PRN (Reason: anxiety) Qty: 30 RF: 0 nystatin 100,000 unit/mL suspension 5 ml PO QID Qty: 200 RF: 0 ondansetron [Zofran ODT] 4 mg tablet,disintegrating 4 mg PO Q6-8H PRN (Reason: nausea and vomiting) Qty: 10 RF: 0 Referrals: Naye Reese DO [Primary Care Provider] - (Please follow up if your bloody sputum continues for more than the next couple days.)
[2018-03-10 04:41] VITALS: BP 133/58; PULSE 83; RESP 22; O2SAT 95
== END 2018-03-10 04:47 | disposition home or self-care (01) ==
PROVIDERS: Emergency Provider Emergency Medicine; PCP Family Medicine
DX: J44.9 Chronic obstructive pulmonary disease, unspecified (principal); R04.2 Hemoptysis
CPT/HCPCS: 36591; 71045; 93005; 93010; 99282; 99284

== ENCOUNTER → 2018-05-07 15:54 | Outpatient (CLI) | payer MEDICARE, MEDICAID, SELFPAY ==
--- NOTE | 2018-05-07 | DI.CT.S_ITS ---
PROCEDURE: CT CHEST WO CON INDICATIONS: Other nonspecific abnormal finding of lung field TECHNIQUE: Noncontrast 2.0-2.5 mm thick sections acquired from the pulmonary apices to the posterior costophrenic angles. 7 mm thick coronal and sagittal MIP reformats were then acquired. A low radiation dose technique was utilized. COMPARISON: [facility], CT, CT CHEST WO CON, 01/27/2018, 9:58. FINDINGS: Image quality: Diagnostic, given the low radiation dose technique. Lungs and pleura: Multiple bilateral ill-defined pulmonary nodules appear stable since 01/27/18, for example in the left upper lobe with partial groundglass appearance measuring 7 mm. In the right upper lobe on image 76 series 3 with spiculated margins measuring up to 20 mm. And in the right middle lobe measuring approximately 8mm. There is background centrilobular emphysema, severe. No acute consolidation. No pleural effusion or pneumothorax. The Mediastinum: Heart size is normal. No pericardial effusion. No mediastinal adenopathy by size criteria. Thoracic aorta and central pulmonary arteries are normal in size. Esophagus is normal in caliber. No hiatal hernia. Bones and chest wall: No suspicious bony lesions. No vertebral body compression fractures. No axillary or supraclavicular adenopathy by size criteria. Thyroid gland grossly unremarkable. Abdomen: Visualized upper abdomen solid organs and bowel loops appear normal in the absence of contrast. IMPRESSION: Grossly stable examination since 01/27/18 with redemonstration of multiple ill-defined pulmonary nodules as detailed above. Recommend followup noncontrast chest CT in January 2019 Fleischner Society criteria for SOLID lung nodule followup. Nodule size (mm)Low-risk patientHigh-risk patient<6 (single or multiple)No routine followup.Optional CT at 12 months. 6-8 (single or multiple)CT at 6-12 months, then optional CT at 18-24 mo.CT at 6-12 months, then CT at 18-24 months. >8 (single)CT at 3 months, PET-CT, or biopsy. Same as for low-risk pts. >8 (multiple)CT at 3-6 months, then optional CT at 18-24 mo.CT at 3-6 months, then CT at 18-24 months. Fleischner Society criteria for SUB-SOLID lung nodule followup. Solitary pure ground-glass nodules<6 mm (ground glass or part solid)No followup needed. 6 mm or larger (ground glass)CT at 6-12 months to confirm persistence, then CT every 2 years until 5 years.6 mm or larger (part solid)CT at 3-6 months to confirm persistence, then annual CT until 5 years if unchanged and solid component remains <6 mm. Multiple sub-solid nodules<6 mmCT at 3-6 months, then CT consider at 2 & 4 years for high risk patients. [address] at 3-6 months. Subsequent management based on most suspicious lesions. Recommendations do not apply to lung cancer screening, patients with immunosuppression, or patients with known primary cancer. Dictated by: Saurav Padilla M.D. on 05/07/2018 at 16:20 Approved by: Saurav Padilla M.D. on 05/07/2018 at 16:27
== END ==
PROVIDERS: PCP Family Medicine; Visit Provider Internal Medicine Critical Care Medicine
DX: R91.8 Other nonspecific abnormal finding of lung field (principal)
CPT/HCPCS: 71250

== ENCOUNTER 2018-06-10 02:53 | Emergency (ER) | payer MEDICARE, MEDICAID, SELFPAY ==
[2018-06-10 02:59] VITALS: BP 196/141; PULSE 100
--- NOTE | 2018-06-10 02:59 | ED_ITS ---
HPI - SOB/Dyspnea General Chief Complaint: Shortness of Breath/Dyspnea Stated Complaint: SOB Time Seen by Provider: 06/10/18 02:59 Source: patient Mode of arrival: EMS Limitations: no limitations History of Present Illness 57-year-old male with a history of COPD on 2 L home oxygen on a daily basis. Also states that he recently started a 3 day a week course of azithromycin. This is been going on for the past 3 weeks. States that over the past couple days and especially over the past couple hours he has had increased sputum production. Different color sputum and shortness of breath. Was using his breathing treatments at home with minimal improvement. Called EMS to bring him to the emergency department. EMS reports that they patient was not hypoxic. They did give him an albuterol neb prior to arrival. Patient denies fevers. Related Data Home Medications Medication Instructions Recorded Confirmed acetaminophen [Tylenol Extra 500 mg PO Q4HP PRN #1 02/20/13 05/04/18 Strength] alum-mag hydroxide-simeth [Mag-Al 30 ml PO PRN PRN #0 08/04/16 05/04/18 Plus] levalbuterol HCl [Xopenex] 1.25 mg INH Q6HP PRN #0 12/23/16 05/04/18 montelukast [Singulair] 10 mg PO QDAY #0 10/27/17 05/04/18 azithromycin 500 mg tablet 500 mg PO .COMPLEX 05/04/18 05/04/18 Previous Rx's Medication Instructions Recorded tiotropium bromide [Spiriva with 18 mcg INH QDAY #90 cap 07/10/16 HandiHaler] albuterol sulfate [Ventolin HFA] 1 - 2 puff INH Q4HP PRN #1 inh 10/27/17 mometasone-formoterol HFA 200 2 inh INHALATION BID #1 puff 12/29/17 mcg-5 mcg/actuation aerosol inhaler nystatin 100,000 unit/mL oral 5 ml PO QID #200 ml 02/16/18 suspension cetirizine 10 mg capsule 10 mg PO DAILY #30 cap 03/03/18 hydrocodone 5 mg-acetaminophen 325 1 tab PO Q6-8H PRN #20 tab 04/05/18 mg tablet ondansetron 4 mg disintegrating 4 mg PO Q6-8H PRN #30 tab 04/05/18 tablet simvastatin 20 mg tablet 20 mg PO HS #90 tab 05/17/18 clonazepam 0.5 mg tablet 0.5 mg PO BIDP PRN #30 tab 05/18/18 amoxicillin-pot clavulanate 1 tab PO BID 7 Days #14 tab 06/10/18 [Augmentin] prednisone 20 mg PO DAILY #35 tab 06/10/18 Allergies Allergy/AdvReac Type Severity Reaction Status Date / Time cinnamon [CINNAMON] Allergy Severe RESP Verified 05/04/18 14:56 PROBLEMS AND SWELLING beclomethasone [From QVAR] Allergy Unknown Verified 05/04/18 14:56 budesonide [From SYMBICORT] Allergy Unknown unknown Verified 05/04/18 14:56 codeine [CODEINE] Allergy Unknown Verified 05/04/18 14:56 formoterol [From SYMBICORT] Allergy Unknown Verified 05/04/18 14:56 Sulfa (Sulfonamide Allergy Unknown Verified 05/04/18 14:56 Antibiotics) [SULFA (SULFONAMIDE ANTIBIOTICS)] trimethoprim [TRIMETHOPRIM] Allergy Unknown Verified 05/04/18 14:56 fluticasone [FLUTICASONE] AdvReac Intermediate FEELS Verified 05/04/18 14:56 LIKE FIRE IN THE LUNGS doxycycline [DOXYCYCLINE] AdvReac Mild N/V Verified 05/04/18 14:56 prednisone [PREDNISONE] AdvReac Mild SHAKY AND Verified 05/04/18 14:56 WEAK ON HIGHER DOSES Review of Systems Constitutional Denies fever(s) and Denies headache(s) ENT Ears, Nose, Mouth, and Throat: Denies headache(s) Cardiovascular Denies chest pain and Denies dyspnea Respiratory Reports cough, Reports excessive phlegm production, Denies dyspnea and Reports wheezing Gastrointestinal Gastrointestinal: Denies abdominal pain, Denies nausea and Denies vomiting Musculoskeletal Denies myalgias and Denies arthralgias Integumentary/Breasts Denies rash Neurologic Denies headache(s) Hematologic/Lymphatic Comments: Not on anticoagulation Allergic/Immunologic Reports wheezing [facility] Social History Smoking Status: Current every day smoker alcohol intake: never substance use type: does not use Exam Initial Vital Signs Initial Vital Signs: Vital Signs Pulse Rate 100 H 06/10/18 02:59 Blood Pressure 196/141 H 06/10/18 02:59 Const General: cooperative, well groomed and No acute distress Orientation: alert, awake and oriented x3 HENMT Head: normal to inspection and normocephalic Resp Effort & Inspection: able to speak in complete sentences, not labored, no nasal flaring, pursed lip breathing, respiratory distress, no retractions and tachypneic Auscultation: other ( diminished breath sounds bilaterally left greater than right with expiratory wheezing) Cardio Rate: regular rate Rhythm: regular rhythm Skin Lesions: no lesions Rashes: no rashes Neuro General: alert, awake and oriented x3 Extrem General: normal to inspection, capillary refill normal and No edema Psych Appearance: grossly normal and well kempt Course Orders Ordered: ED Orders 06/10/18 02:50 B Type Natriuretic Peptide Stat Complete Blood Count AUTO DIFF Stat 06/10/18 03:00 XR chest 1V Stat RT Consult Eval and Treat Now 06/10/18 03:16 Basic Metabolic Panel Stat Discontinued Medications Albuterol/Ipratropium (Duoneb) 3 ml INH NOW ONE Stop: 06/10/18 03:00 Last Admin: 06/10/18 03:36 Dose: 3 ml Amoxicillin/Clavulanate Potassium (Augmentin 875-125 Mg) 1 tab PO NOW ONE Stop: 06/10/18 03:54 Methylprednisolone (Solu-Medrol 125 Mg Vial) 125 mg IV NOW ONE Stop: 06/10/18 03:00 Last Admin: 06/10/18 03:09 Dose: 125 mg Vital Signs - 8 hr 06/10/18 02:59 06/10/18 03:02 06/10/18 03:30 Temperature 98.8 F Pulse Rate 100 H 100 H 90 Respiratory Rate 22 18 Blood Pressure 192/112 H Blood Pressure [Left Arm] 196/141 H 173/85 H Pulse Oximetry 97 96 06/10/18 03:37 Temperature Pulse Rate 92 H Respiratory Rate 18 Blood Pressure Blood Pressure [Left Arm] Pulse Oximetry 97 MDM - SOB/Dyspnea Medical Records Attestation: I reviewed the patient's medical records. Lab Data Attestation: I reviewed the patient's lab results. Result diagrams: 06/10/18 02:50 06/10/18 03:16 Lab Results 06/10/18 06/10/18 06/10/18 Range/Units 02:50 02:50 03:16 WBC 14.8 H (4.5-11.0) X10^3/uL RBC 5.49 (4.5-5.9) X10^6/uL Hgb 15.8 (13.5-17.5) g/dL Hct 46.1 (41-53) % MCV 83.9 (80-100) fL MCH 28.7 (26-34) PG MCHC 34.2 (30-36) % RDW 14.3 (11.6-14.8) % Plt Count 198 (150-400) X10^3/uL Neut % (Auto) 61.3 (50-75) % Lymph % (Auto) 30.2 (25-40) % [place] % (Auto) 5.5 (3-14) % Eos % (Auto) 2.2 (2-4) % Baso % (Auto) 0.8 (0-2) % Neut # (Auto) 9100 H (5609-0526) /uL Sodium 143 (137-145) mmol/L Potassium 3.9 (3.4-5.1) mmol/L Chloride 103 (98-107) mmol/L Carbon Dioxide 30 (22-32) mmol/L BUN 20 (9-20) mg/dL Creatinine 0.90 (0.66-1.25) mg/dL Estimated GFR > 60.0 (>60) mL/min BUN/Creatinine Ratio 22.2 H (6-22) Glucose 115 H (70-100) mg/dL Calcium 9.6 (8.4-10.2) mg/dL B-Natriuretic Peptide < 100.0 (<100) Imaging Data Chest x-ray: Attestation: I personally reviewed and interpreted this imaging study as follows: My impression: Hyperexpansion no focal consolidations normal size heart MDM Narrative Medical decision making narrative: patient received a DuoNeb and steroids here in the emergency department. He states that he felt much better after the DuoNeb. Does have an elevated white blood cell count and in the setting of his change in sputum production and shortness of breath or is concerned about pneumonia. Patient has been taken 3 days a week of azithromycin. He states that when he is taking Levaquin in the past he hallucinates and also joint pain. He states he has taken Augmentin in the past for COPD exacerbations which he can tolerate well. He does state that when he gets steroids he has to take them for extended periods of time with a taper. His chest x-ray shows no focal consolidation. He denies any chest pain. patient was given the 1st dose of antibiotics here in the emergency department. He stated that he felt much better after the treatments. Will hold on further workup for now. He was given return precautions. He expressed understanding and agreement with plan. Discharge Plan Departure Patient Disposition: Home Clinical Impression: COPD with exacerbation Instructions: Chronic Obstructive Pulmonary Disease Activity Restrictions/Additional Instructions: You were given her 1st dose of antibiotics here in the emergency department. Fill the prescriptions that you were given during this visit and start taking them as directed. Your next dose of antibiotics will be this evening. call your primary care doctor for a follow-up. Return to the emergency department for any new or worsening symptoms Prescriptions: New prednisone 20 mg tablet 20 mg PO DAILY Qty: 35 RF: 0 amoxicillin-pot clavulanate [Augmentin] 875-125 mg tablet 1 tab PO BID 7 Days Qty: 14 RF: 0 No Action mometasone-formoterol [Dulera] 200-5 mcg/actuation HFA aerosol inhaler 2 inh INHALATION BID Qty: 1 RF: 6 cetirizine [All Day Allergy (cetirizine)] 10 mg capsule 10 mg PO DAILY Qty: 30 RF: 2 hydrocodone-acetaminophen 5-325 mg tablet 1 tab PO Q6-8H PRN (Reason: pain) Qty: 20 RF: 0 ondansetron [Zofran ODT] 4 mg tablet,disintegrating 4 mg PO Q6-8H PRN (Reason: nausea and vomiting) Qty: 30 RF: 0 azithromycin 500 mg tablet 500 mg PO .COMPLEX RF: 0 acetaminophen [Tylenol Extra Strength] 500 MG tablet 500 mg PO Q4HP PRNQty: 1 RF: 0 tiotropium bromide [Spiriva with HandiHaler] 18 MCG capsule, w/inhalation device 18 mcg INH QDAY Qty: 90 RF: 3 alum-mag hydroxide-simeth [Mag-Al Plus] 30 ML suspension 30 ml PO PRN PRNQty: 0 RF: 0 levalbuterol HCl [Xopenex] 1.25 MG/3 ML solution for nebulization 1.25 mg INH Q6HP PRNQty: 0 RF: 0 montelukast [Singulair] 10 MG tablet 10 mg PO QDAY Qty: 0 RF: 0 albuterol sulfate [Ventolin HFA] 90 MCG/PUFF HFA aerosol inhaler 1 - 2 puff INH Q4HP PRNQty: 1 RF: 6 nystatin 100,000 unit/mL suspension 5 ml PO QID Qty: 200 RF: 0 simvastatin 20 mg tablet 20 mg PO HS Qty: 90 RF: 1 clonazepam 0.5 mg tablet 0.5 mg PO BIDP PRN (Reason: anxiety) Qty: 30 RF: 0
--- NOTE | 2018-06-10 03:00 | DI.RAD.S_ITS ---
PROCEDURE: XR CHEST 1V INDICATIONS: Shortness of breath TECHNIQUE: One view of the chest was acquired. COMPARISON: [facility], CR, XR CHEST 1V, 03/10/2018, 3:47. FINDINGS: Surgical changes and devices: None. Lungs and pleura: No pleural effusions or pneumothorax. Lungs are clear. Mediastinum: Mediastinal contours appear normal. Heart size is normal. Bones and chest wall: No suspicious bony lesions. Overlying soft tissues appear unremarkable. IMPRESSION: No acute cardiopulmonary disease process. Dictated by: Lianet Celis MD, PhD on 06/10/2018 at 8:42 Approved by: Lianet Celis MD, PhD on 06/10/2018 at 8:49
[2018-06-10 03:02] VITALS: BP 192/112; PULSE 100; RESP 22; TEMP 37.1; O2SAT 97; BMI 25.2
[2018-06-10] MEDS: methylPREDNISolone 125 MG/2 ML VIAL IV (03:09)
[2018-06-10 03:21] LABS: Add Manual Diff / Slide Review NO; Basophils Percent Auto 0.8 % (0-2); Eosinophils Percent Auto 2.2 % (2-4); Hematocrit 46.1 % (41-53); Hemoglobin 15.8 g/dL (13.5-17.5); Lymphocytes Percent Auto 30.2 % (25-40); Mean Corpuscular HGB Conc 34.2 % (30-36); Mean Corpuscular Hemoglobin 28.7 PG (26-34); Mean Corpuscular Volume 83.9 fL (80-100); Monocytes Percent Auto 5.5 % (3-14); Neutrophils Absolute Auto 9100 /uL (3000-5900); Neutrophils Percent Auto 61.3 % (50-75); Platelet Count 198 X10^3/uL (150-400); Red Blood Cell Count 5.49 X10^6/uL (4.5-5.9); Red Cell Distribution Width 14.3 % (11.6-14.8); White Blood Cell Count 14.8 X10^3/uL (4.5-11.0)
[2018-06-10 03:30] VITALS: BP 173/85; PULSE 90; RESP 18; O2SAT 96
[2018-06-10 03:33] LABS: B Type Natriuretic Peptide < 100.0 (<100)
[2018-06-10 03:34] LABS: BUN Creatinine Ratio 22.2 (6-22); Blood Urea Nitrogen 20 mg/dL (9-20); Calcium 9.6 mg/dL (8.4-10.2); Carbon Dioxide 30 mmol/L (22-32); Chloride 103 mmol/L (98-107); Estimated Glomerular Filt Rate > 60.0 mL/min (>60); Glucose 115 mg/dL (70-100); HEMOLYSIS < 15 (0-50); Potassium 3.9 mmol/L (3.4-5.1); Sodium 143 mmol/L (137-145)
[2018-06-10] MEDS: ALBUTEROL/IPRATROPIUM 3 ML AMPUL INH (03:36)
[2018-06-10 03:37] VITALS: PULSE 92; RESP 18; O2SAT 97
[2018-06-10] MEDS: AMOXICILLIN/CLAV 875/125 MG 1 TAB PO (04:04)
[2018-06-10 04:06] VITALS: BP 166/86; PULSE 88; RESP 16; O2SAT 95
== END 2018-06-10 04:16 | disposition home or self-care (01) ==
PROVIDERS: Emergency Provider Emergency Medicine; PCP Family Medicine
DX: J44.1 Chronic obstructive pulmonary disease with (acute) exacerbation (principal)
CPT/HCPCS: 36415; 71045; 80048; 83880; 85025; 94640; 96374; 99283; 99284; J2930

== ENCOUNTER 2018-06-28 16:18 | Emergency (ER) | payer MEDICARE, MEDICAID, SELFPAY ==
[2018-06-28] MEDS: ALBUTEROL/IPRATROPIUM 3 ML AMPUL INH ×3 (16:41→16:51)
[2018-06-28 16:42] VITALS: O2SAT 96
--- NOTE | 2018-06-28 16:46 | ED.SOB ---
HPI - SOB/Dyspnea <Shahida Ramesh PA-C - Last Filed: 06/28/18 21:10> General Chief Complaint: Shortness of Breath/Dyspnea Stated Complaint: COPD,No energy, does not feel right Time Seen by Provider: 06/28/18 16:46 Source: patient Mode of arrival: ambulatory Limitations: other History of Present Illness This 57-year-old male returns due to COPD exacerbation, stating he has had more dyspnea and increase in cough and purulent sputum for the last 2 days. He states he has felt warm at home and feels generally weak and tired. He states that he walked out to get the trash cans today, walking 30 or 40 ft and felt very short of breath. He states he made it back to the house but has felt more short of breath consistently. He states that he had some sharp chest pain for about a minute after he had been sitting for some time, none after he was walking and none otherwise. He states his heartbeat was fast after he was walking back into the house. He states that he typically requires 2-3 L of oxygen and at rest at home and his sats will stay around 95% with that, typically needs more oxygen when exerting himself. He states that when he came back in after walking today his O2 sats were at about 90% and he felt like they would drop more. He states he has not had any hemoptysis with this episode. He states that he was getting better, finished his Augmentin last week and restarted his regular azithromycin that he takes every other day. He has been tapering his prednisone, today was to be the last day of 20 mg. He states that in addition to symptoms above he feels like he has body aches all over. He states he feels like he has had some increased abdominal gas recently but no acute pain or other acute symptoms on systems review. He denies any acute extremity swelling. Related Data Home Medications Medication Instructions Recorded Confirmed levalbuterol HCl [Xopenex] 1.25 mg INH Q6HP PRN #0 12/23/16 06/28/18 montelukast [Singulair] 10 mg PO DAILY #0 10/27/17 06/28/18 albuterol sulfate [Ventolin HFA] 1 - 2 puff INH Q4HP PRN 06/28/18 azithromycin 250 mg PO Q OTHER DAY 06/28/18 06/28/18 benzonatate 100 mg PO TID 06/28/18 06/28/18 simvastatin 20 mg PO BEDTIME 06/28/18 06/28/18 tiotropium bromide [Spiriva with 18 mcg INH DAILY 06/28/18 06/28/18 HandiHaler] Previous Rx's Medication Instructions Recorded mometasone-formoterol HFA 200 2 inh INHALATION BID #1 puff 12/29/17 mcg-5 mcg/actuation aerosol inhaler cetirizine 10 mg capsule 10 mg PO DAILY #30 cap 06/10/18 clonazepam 0.5 mg tablet 0.5 mg PO BIDP PRN #30 tab 06/15/18 amoxicillin-pot clavulanate 1 tab PO Q12H #20 tab 06/28/18 [Augmentin] prednisone 60 mg PO DAILY #40 tab 06/28/18 Allergies Allergy/AdvReac Type Severity Reaction Status Date / Time cinnamon [CINNAMON] Allergy Severe RESP Verified 06/15/18 13:36 PROBLEMS AND SWELLING beclomethasone [From QVAR] Allergy Unknown Verified 06/15/18 13:36 budesonide [From SYMBICORT] Allergy Unknown unknown Verified 06/15/18 13:36 codeine [CODEINE] Allergy Unknown Verified 06/15/18 13:36 formoterol [From SYMBICORT] Allergy Unknown Verified 06/15/18 13:36 Sulfa (Sulfonamide Allergy Unknown Verified 06/15/18 13:36 Antibiotics) [SULFA (SULFONAMIDE ANTIBIOTICS)] trimethoprim [TRIMETHOPRIM] Allergy Unknown Verified 06/15/18 13:36 fluticasone [FLUTICASONE] AdvReac Intermediate FEELS Verified 06/15/18 13:36 LIKE FIRE IN THE LUNGS doxycycline [DOXYCYCLINE] AdvReac Mild N/V Verified 06/15/18 13:36 prednisone [PREDNISONE] AdvReac Mild SHAKY AND Verified 06/15/18 13:36 WEAK ON HIGHER DOSES Review of Systems <Shahida Ramesh PA-C - Last Filed: 06/28/18 21:10> Review of Systems All systems reviewed & are unremarkable except as noted in HPI and below Exam <Shahdia Ramesh PA-C - Last Filed: 06/28/18 21:10> Narrative Exam Narrative: GENERAL APPEARANCE: Patient speaks in short sentences, following nebulizer treatment sitting comfortably in NAD HEAD: No sinus TTP. EYES: PERRL, EOMI. ORAL CAVITY: Normal oropharynx. THROAT: Clear. NECK/THYROID: Neck supple, full range of motion, no cervical lymphadenopathy. LUNGS: Generalized reduced breath sounds most notable at the bilateral bases, no wheeze, no cough on exam. Breath sounds are improved at the bases following nebulizer treatments HEART: RRR without murmur, nl S1, S2, no S3 or S4. ABDOMEN: Soft, nontender, +bowel sounds x4 quadrants EXTREMITIES: No edema, no calf tenderness Initial Vital Signs Initial Vital Signs: Vital Signs Pulse Oximetry 96 06/28/18 16:42 06/28/18 16:42 06/28/18 16:54 Temperature 99.1 F Pulse Rate 92 H Respiratory Rate 16 Blood Pressure 171/93 H Pulse Oximetry 96 96 <Taylor Solis DO - Last Filed: 06/29/18 08:11> Initial Vital Signs Initial Vital Signs: Vital Signs Pulse Oximetry 96 06/28/18 16:42 Course <Shahida Ramesh PA-C - Last Filed: 06/28/18 21:10> Additional Information: Patient is feeling markedly improved prior to discharge. He was able to ambulate through the department with maintaining O2 sat at 95+ percent. He will restart Augmentin since he was feeling significantly better after a course of this. He will increase prednisone back to 60 mg daily and will follow up with his PCP this week to determine whether to do an extended course of antibiotics and a longer steroid taper. He will continue his usual medications as well. He agreed to return if any acutely worsening symptoms in the interim Orders Ordered: Discontinued Medications Albuterol (Ventolin) 2.5 mg INH NOW ONE Stop: 06/28/18 16:52 Albuterol/Ipratropium (Duoneb) 3 ml INH NOW ONE Stop: 06/28/18 16:38 Last Admin: 06/28/18 16:41 Dose: 3 ml Albuterol/Ipratropium (Duoneb) 3 ml INH NOW ONE Stop: 06/28/18 16:47 Last Admin: 06/28/18 16:47 Dose: 3 ml Albuterol/Ipratropium (Duoneb) 3 ml INH NOW ONE Stop: 06/28/18 16:51 Last Admin: 06/28/18 16:51 Dose: 3 ml Albuterol/Ipratropium (Duoneb) 3 ml INH NOW ONE Stop: 06/28/18 16:52 Dexamethasone (Decadron) 10 mg IV NOW ONE Stop: 06/28/18 16:52 Last Admin: 06/28/18 17:28 Dose: 10 mg Vital Signs - 8 hr 06/28/18 16:42 06/28/18 16:54 06/28/18 18:35 Temperature 99.1 F Pulse Rate 92 H 88 Respiratory Rate 16 16 Blood Pressure 171/93 H Blood Pressure [Left Arm] 133/62 Pulse Oximetry 96 96 97 06/28/18 18:36 06/28/18 19:31 Temperature Pulse Rate 87 79 Respiratory Rate 15 Blood Pressure Blood Pressure [Left Arm] 133/62 150/80 H Pulse Oximetry 98 98 <Taylor Solis DO - Last Filed: 06/29/18 08:11> Orders Ordered: Discontinued Medications Albuterol (Ventolin) 2.5 mg INH NOW ONE Stop: 06/28/18 16:52 Albuterol/Ipratropium (Duoneb) 3 ml INH NOW ONE Stop: 06/28/18 16:38 Last Admin: 06/28/18 16:41 Dose: 3 ml Albuterol/Ipratropium (Duoneb) 3 ml INH NOW ONE Stop: 06/28/18 16:47 Last Admin: 06/28/18 16:47 Dose: 3 ml Albuterol/Ipratropium (Duoneb) 3 ml INH NOW ONE Stop: 06/28/18 16:51 Last Admin: 06/28/18 16:51 Dose: 3 ml Albuterol/Ipratropium (Duoneb) 3 ml INH NOW ONE Stop: 06/28/18 16:52 Dexamethasone (Decadron) 10 mg IV NOW ONE Stop: 06/28/18 16:52 Last Admin: 06/28/18 17:28 Dose: 10 mg Vital Signs - 8 hr 06/28/18 16:42 06/28/18 16:54 06/28/18 18:35 Temperature 99.1 F Pulse Rate 92 H 88 Respiratory Rate 16 16 Blood Pressure 171/93 H Blood Pressure [Left Arm] 133/62 Pulse Oximetry 96 96 97 06/28/18 18:36 12/17/18 19:31 Temperature Pulse Rate 87 79 Respiratory Rate 15 Blood Pressure Blood Pressure [Left Arm] 133/62 150/80 H Pulse Oximetry 98 98 MDM - SOB/Dyspnea <Shahida Ramesh PA-C - Last Filed: 06/28/18 21:10> Lab Data Attestation: I reviewed the patient's lab results. Result diagrams: 06/28/18 17:10 06/28/18 17:10 Lab Results 06/28/18 06/28/18 06/28/18 Range/Units 17:10 17:10 17:10 WBC 14.9 H (4.5-11.0) X10^3/uL RBC 5.39 (4.5-5.9) X10^6/uL Hgb 15.2 (13.5-17.5) g/dL Hct 46.1 (41-53) % MCV 85.5 (80-100) fL MCH 28.1 (26-34) PG MCHC 32.9 (30-36) % RDW 14.9 H (11.6-14.8) % Plt Count 158 (150-400) X10^3/uL Neut % (Auto) 83.8 H (50-75) % Lymph % (Auto) 11.6 L (25-40) % [facility] % (Auto) 2.7 L (3-14) % Eos % (Auto) 0.4 L (2-4) % Baso % (Auto) 1.5 (0-2) % Neut # (Auto) 49759 H (3778-2144) /uL Sodium 142 (137-145) mmol/L Potassium 4.3 (3.4-5.1) mmol/L Chloride 102 (98-107) mmol/L Carbon Dioxide 30 (22-32) mmol/L BUN 20 (9-20) mg/dL Creatinine 0.80 (0.66-1.25) mg/dL Estimated GFR > 60.0 (>60) mL/min BUN/Creatinine Ratio 25.0 H (6-22) Glucose 114 H (70-100) mg/dL Lactate (0.7-2.1) mmol/L Calcium 9.7 (8.4-10.2) mg/dL Total Bilirubin 0.4 (0.2-1.3) mg/dL AST 25 (17-59) IU/L ALT 26 (21-72) IU/L Alkaline Phosphatase 64 (38-126) U/L Troponin I < 0.012 (0.01-0.034) ng/mL B-Natriuretic Peptide < 101.0 H (<100) Total Protein 7.6 (6.3-8.2) g/dL Albumin 4.5 (3.5-5.0) g/dL Globulin 3.1 (1.7-4.1) g/dL Albumin/Globulin Ratio 1.5 (1.0-2.8) Influenza A & B (PCR) (Negative) 06/28/18 06/28/18 Range/Units 17:10 18:15 WBC (4.5-11.0) X10^3/uL RBC (4.5-5.9) X10^6/uL Hgb (13.5-17.5) g/dL Hct (41-53) % MCV (80-100) fL MCH (26-34) PG MCHC (30-36) % RDW (11.6-14.8) % Plt Count (150-400) X10^3/uL Neut % (Auto) (50-75) % Lymph % (Auto) (25-40) % [facility] % (Auto) (3-14) % Eos % (Auto) (2-4) % Baso % (Auto) (0-2) % Neut # (Auto) (6531-3154) /uL Sodium (137-145) mmol/L Potassium (3.4-5.1) mmol/L Chloride (98-107) mmol/L Carbon Dioxide (22-32) mmol/L BUN (9-20) mg/dL Creatinine (0.66-1.25) mg/dL Estimated GFR (>60) mL/min BUN/Creatinine Ratio (6-22) Glucose (70-100) mg/dL Lactate 1.4 (0.7-2.1) mmol/L Calcium (8.4-10.2) mg/dL Total Bilirubin (0.2-1.3) mg/dL AST (17-59) IU/L ALT (21-72) IU/L Alkaline Phosphatase (38-126) U/L Troponin I (0.01-0.034) ng/mL B-Natriuretic Peptide (<100) Total Protein (6.3-8.2) g/dL Albumin (3.5-5.0) g/dL Globulin (1.7-4.1) g/dL Albumin/Globulin Ratio (1.0-2.8) Influenza A & B (PCR) Negative (Negative) Imaging Data Chest x-ray: Radiologist's impression: View Report History Print [address] [address] XRay Report Signed Patient: Mak Rose MR#: [id number] : 1960 Acct:[id number] Age/Sex: 57 / M Date of Service: 06/28/18 Loc: ED Accession Number: [id number] Procedure: XR chest 2V Ordering Provider: Shahida Ramesh P.A-C PROCEDURE: XR CHEST 2V INDICATIONS: copd exacerbation TECHNIQUE: 2 views of the chest were acquired. COMPARISON: [facility], CR, XR CHEST 1V, 06/10/2018, 3:12. [facility], CR, XR CHEST 1V, 03/10/2018, 3:47. [facility], CR, XR CHEST 2V, 12/26/2017, 0:52. [facility], CR, XR CHEST 1V, 11/29/2017, 15:36. FINDINGS: Surgical changes and devices: None. Lungs and pleura: No pleural effusions or pneumothorax. Lungs are clear. There is bilateral prominence of the pulmonary vasculature. There is mild bilateral bronchial wall thickening. Mediastinum: Mediastinal contours are normal. Heart size is normal. Bones and chest wall: Mild multilevel degenerative changes of the spine. IMPRESSION: Mild bilateral bronchial wall thickening, a nonspecific finding that can be seen with obstructive lung disease. No focal pulmonary consolidations consistent with pneumonia. Dictated by: Gustavo Sullivan M.D. on 06/28/2018 at 17:11 Approved by: Gustavo Sullivan M.D. on 06/28/2018 at 17:15 ECG Data Attestation: I personally reviewed and interpreted this ECG as follows: (A normal sinus rhythm with rate 83, normal axis, no acute change from 02/27) Prior ECG tracings: available for review <Taylor Solis DO - Last Filed: 06/29/18 08:11> Lab Data Lab Results 06/28/18 06/28/18 06/28/18 Range/Units 17:10 17:10 17:10 WBC 14.9 H (4.5-11.0) X10^3/uL RBC 5.39 (4.5-5.9) X10^6/uL Hgb 15.2 (13.5-17.5) g/dL Hct 46.1 (41-53) % MCV 85.5 (80-100) fL MCH 28.1 (26-34) PG MCHC 32.9 (30-36) % RDW 14.9 H (11.6-14.8) % Plt Count 158 (150-400) X10^3/uL Neut % (Auto) 83.8 H (50-75) % Lymph % (Auto) 11.6 L (25-40) % [facility] % (Auto) 2.7 L (3-14) % Eos % (Auto) 0.4 L (2-4) % Baso % (Auto) 1.5 (0-2) % Neut # (Auto) 92273 H (2962-6355) /uL Sodium 142 (137-145) mmol/L Potassium 4.3 (3.4-5.1) mmol/L Chloride 102 (98-107) mmol/L Carbon Dioxide 30 (22-32) mmol/L BUN 20 (9-20) mg/dL Creatinine 0.80 (0.66-1.25) mg/dL Estimated GFR > 60.0 (>60) mL/min BUN/Creatinine Ratio 25.0 H (6-22) Glucose 114 H (70-100) mg/dL Lactate (0.7-2.1) mmol/L Calcium 9.7 (8.4-10.2) mg/dL Total Bilirubin 0.4 (0.2-1.3) mg/dL AST 25 (17-59) IU/L ALT 26 (21-72) IU/L Alkaline Phosphatase 64 (38-126) U/L Troponin I < 0.012 (0.01-0.034) ng/mL B-Natriuretic Peptide < 101.0 H (<100) Total Protein 7.6 (6.3-8.2) g/dL Albumin 4.5 (3.5-5.0) g/dL Globulin 3.1 (1.7-4.1) g/dL Albumin/Globulin Ratio 1.5 (1.0-2.8) Influenza A & B (PCR) (Negative) 06/28/18 06/28/18 Range/Units 17:10 18:15 WBC (4.5-11.0) X10^3/uL RBC (4.5-5.9) X10^6/uL Hgb (13.5-17.5) g/dL Hct (41-53) % MCV (80-100) fL MCH (26-34) PG MCHC (30-36) % RDW (11.6-14.8) % Plt Count (150-400) X10^3/uL Neut % (Auto) (50-75) % Lymph % (Auto) (25-40) % [facility] % (Auto) (3-14) % Eos % (Auto) (2-4) % Baso % (Auto) (0-2) % Neut # (Auto) (0426-7060) /uL Sodium (137-145) mmol/L Potassium (3.4-5.1) mmol/L Chloride (98-107) mmol/L Carbon Dioxide (22-32) mmol/L BUN (9-20) mg/dL Creatinine (0.66-1.25) mg/dL Estimated GFR (>60) mL/min BUN/Creatinine Ratio (6-22) Glucose (70-100) mg/dL Lactate 1.4 (0.7-2.1) mmol/L Calcium (8.4-10.2) mg/dL Total Bilirubin (0.2-1.3) mg/dL AST (17-59) IU/L ALT (21-72) IU/L Alkaline Phosphatase (38-126) U/L Troponin I (0.01-0.034) ng/mL B-Natriuretic Peptide (<100) Total Protein (6.3-8.2) g/dL Albumin (3.5-5.0) g/dL Globulin (1.7-4.1) g/dL Albumin/Globulin Ratio (1.0-2.8) Influenza A & B (PCR) Negative (Negative) Discharge Plan Departure Patient Disposition: Home Clinical Impression: Acute exacerbation of COPD with asthma Discharge Date/Time: 06/28/18 19:36 Interventions: ED Discharge Assessment Last Done: 06/28/18 19:37 Instructions: DI for Chronic Obstructive Pulmonary Disease Activity Restrictions/Additional Instructions: Since you are feeling significantly better it is okay to return home tonight. There was no acute problem found on your chest x-ray or lab work. Please continue your usual COPD medications at home, and continue your oxygen. Please take your 1st dose of Augmentin as soon as you pick it up, and also starting in the morning increase your prednisone back to 60 mg daily again. You should return here as we talked about if you have acutely worsening symptoms again. Otherwise, please see your PCP this week for recheck to make sure your improving and to determine how to adjust your steroid tapering schedule. Prescriptions: New prednisone 20 mg tablet 60 mg PO DAILY Qty: 40 RF: 0 amoxicillin-pot clavulanate [Augmentin] 875-125 mg tablet 1 tab PO Q12H Qty: 20 RF: 0 No Action mometasone-formoterol [Dulera] 200-5 mcg/actuation HFA aerosol inhaler 2 inh INHALATION BID Qty: 1 RF: 6 clonazepam 0.5 mg tablet 0.5 mg PO BIDP PRN (Reason: anxiety) Qty: 30 RF: 0 levalbuterol HCl [Xopenex] 1.25 MG/3 ML solution for nebulization 1.25 mg INH Q6HP PRN (Reason: Shortness Of Breath) Qty: 0 RF: 0 montelukast [Singulair] 10 MG tablet 10 mg PO DAILY Qty: 0 RF: 0 cetirizine [All Day Allergy (cetirizine)] 10 mg capsule 10 mg PO DAILY Qty: 30 RF: 3 azithromycin 250 mg tablet 250 mg PO Q OTHER DAY RF: 0 benzonatate 100 mg capsule 100 mg PO TID RF: 0 albuterol sulfate [Ventolin HFA] 90 MCG/PUFF HFA aerosol inhaler 1 - 2 puff INH Q4HP PRN (Reason: Shortness Of Breath Or Wheezing) RF: 0 tiotropium bromide [Spiriva with HandiHaler] 18 MCG capsule, w/inhalation device 18 mcg INH DAILY RF: 0 simvastatin 20 mg tablet 20 mg PO BEDTIME RF: 0 Referrals: Naye Reese DO [Primary Care Provider] - <Taylor Solis DO - Last Filed: 06/29/18 08:11> Cosign ED Attending Cosignature Attestation: I was immediately available in the department for consultation. Documentation has been reviewed. I agree with assessment and plan.
--- NOTE | 2018-06-28 16:51 | DI.RAD.S_ITS ---
PROCEDURE: XR CHEST 2V INDICATIONS: copd exacerbation TECHNIQUE: 2 views of the chest were acquired. COMPARISON: [facility], CR, XR CHEST 1V, 06/10/2018, 3:12. [facility], CR, XR CHEST 1V, 03/10/2018, 3:47. [facility], CR, XR CHEST 2V, 12/26/2017, 0:52. [facility], CR, XR CHEST 1V, 11/29/2017, 15:36. FINDINGS: Surgical changes and devices: None. Lungs and pleura: No pleural effusions or pneumothorax. Lungs are clear. There is bilateral prominence of the pulmonary vasculature. There is mild bilateral bronchial wall thickening. Mediastinum: Mediastinal contours are normal. Heart size is normal. Bones and chest wall: Mild multilevel degenerative changes of the spine. IMPRESSION: Mild bilateral bronchial wall thickening, a nonspecific finding that can be seen with obstructive lung disease. No focal pulmonary consolidations consistent with pneumonia. Dictated by: Gustavo Sullivan M.D. on 06/28/2018 at 17:11 Approved by: Gustavo Sullivan M.D. on 06/28/2018 at 17:15
[2018-06-28 16:54] VITALS: BP 171/93; PULSE 92; RESP 16; TEMP 37.3; O2SAT 96
[2018-06-28 17:22] LABS: Add Manual Diff / Slide Review NO; Basophils Percent Auto 1.5 % (0-2); Eosinophils Percent Auto 0.4 % (2-4); Hematocrit 46.1 % (41-53); Hemoglobin 15.2 g/dL (13.5-17.5); Lymphocytes Percent Auto 11.6 % (25-40); Mean Corpuscular HGB Conc 32.9 % (30-36); Mean Corpuscular Hemoglobin 28.1 PG (26-34); Mean Corpuscular Volume 85.5 fL (80-100); Monocytes Percent Auto 2.7 % (3-14); Neutrophils Absolute Auto 12500 /uL (1500-7000); Neutrophils Percent Auto 83.8 % (50-75); Platelet Count 158 X10^3/uL (150-400); Red Blood Cell Count 5.39 X10^6/uL (4.5-5.9); Red Cell Distribution Width 14.9 % (11.6-14.8); White Blood Cell Count 14.9 X10^3/uL (4.5-11.0)
[2018-06-28] MEDS: DEXAMETHASONE 10 MG/ML VIAL IV (17:28)
[2018-06-28 17:33] LABS: Alanine Aminotransferase 26 IU/L (21-72); Albumin 4.5 g/dL (3.5-5.0); Albumin Globulin Ratio 1.5 (1.0-2.8); Alkaline Phosphatase 64 U/L (38-126); Aspartate Aminotransferase 25 IU/L (17-59); Bilirubin Total 0.4 mg/dL (0.2-1.3); Blood Urea Nitrogen 20 mg/dL (9-20); Calcium 9.7 mg/dL (8.4-10.2); Carbon Dioxide 30 mmol/L (22-32); Chloride 102 mmol/L (98-107); Estimated Glomerular Filt Rate > 60.0 mL/min (>60); Globulin 3.1 g/dL (1.7-4.1); Glucose 114 mg/dL (70-100); HEMOLYSIS 17 (0-50); Potassium 4.3 mmol/L (3.4-5.1); Sodium 142 mmol/L (137-145); Total Protein 7.6 g/dL (6.3-8.2)
[2018-06-28 17:34] LABS: Lactate (Lactic Acid) 1.4 mmol/L (0.7-2.1)
[2018-06-28 18:08] LABS: B Type Natriuretic Peptide < 101.0 (<100)
--- NOTE | 2018-06-28 18:16 | PC.NURSE ---
pt reports worsening fatigue, soa on exertion, cough, body aches over last 2 days, soa despite home o2 use, mild distress on arrival, on ausc expiratory wheezes with diminished air movement, NSR on monitor, spo2 99% on 2l, pt reports improved soa following neb x3, denies cp/fever/chills/nausea/vomiting/diarrhea or other sx
[2018-06-28 18:35] VITALS: BP 133/62; PULSE 88; RESP 16; O2SAT 97
[2018-06-28 18:36] VITALS: BP 133/62; PULSE 87; O2SAT 98
[2018-06-28 18:40] LABS: Influenza A and B by PCR Rapid Negative (Negative)
[2018-06-28 19:14] LABS: Troponin I < 0.012 ng/mL (0.01-0.034)
[2018-06-28 19:31] VITALS: BP 150/80; PULSE 79; RESP 15; O2SAT 98
== END 2018-06-28 19:36 | disposition home or self-care (01) ==
PROVIDERS: Emergency Provider Internal Medicine; PCP Family Medicine
DX: J44.1 Chronic obstructive pulmonary disease with (acute) exacerbation (principal); J45.901 Unspecified asthma with (acute) exacerbation
CPT/HCPCS: 36591; 71046; 80053; 83605; 83880; 84484; 85025; 87400; 93005; 94640; 96374; 99283; 99285; J1100

== ENCOUNTER → 2018-07-29 14:30 | Outpatient (CLI) | payer MEDICARE, MEDICAID, SELFPAY | PROVIDERS: Family Provider Family Medicine; PCP Family Medicine; Visit Provider Internal Medicine Critical Care Medicine | DX: J44.9 Chronic obstructive pulmonary disease, unspecified (principal) | CPT/HCPCS: 87070; 87102; 87116; 87205 ==

== ENCOUNTER → 2018-08-18 09:11 | Outpatient (CLI) | payer MEDICARE, SELFPAY ==
[2018-08-18 09:37] LABS: Add Manual Diff / Slide Review NO; Basophils Absolute Auto 0 /uL (0-100); Basophils Percent Auto 0.4 % (0-2); Eosinophils Absolute Auto 300 /uL (0-450); Eosinophils Percent Auto 2.9 % (2-4); Hematocrit 45.2 % (41-53); Hemoglobin 15.2 g/dL (13.5-17.5); Lymphocytes Absolute Auto 2900 /uL (1100-4500); Lymphocytes Percent Auto 29.1 % (25-40); Mean Corpuscular HGB Conc 33.6 % (30-36); Mean Corpuscular Hemoglobin 29.1 PG (26-34); Mean Corpuscular Volume 86.4 fL (80-100); Monocytes Absolute Auto 700 /uL (0-900); Monocytes Percent Auto 7.3 % (3-14); Neutrophils Absolute Auto 6000 /uL (1500-7000); Neutrophils Percent Auto 60.3 % (50-75); Platelet Count 170 X10^3/uL (150-400); Red Blood Cell Count 5.23 X10^6/uL (4.5-5.9); Red Cell Distribution Width 14.3 % (11.6-14.8)
== END ==
PROVIDERS: PCP Family Medicine; Visit Provider Family Medicine
DX: J40 Bronchitis, not specified as acute or chronic (principal); J44.1 Chronic obstructive pulmonary disease with (acute) exacerbation
CPT/HCPCS: 36415; 85025

== ENCOUNTER → 2018-09-02 09:19 | Day surgery (SDC) | payer MEDICARE, MEDICAID, SELFPAY ==
[2018-09-02] MEDS: PROPARACAINE 0.5% OPHTH SOL 2 DROPS EYE-OP (10:06)
[2018-09-02] MEDS: CATARACT EYE COMPOUND (10 DROPS/SYRINGE) 3 DROPS EYE-OP (10:13)
[2018-09-02 10:15] VITALS: BP 164/81; PULSE 86; RESP 18; TEMP 36.6; O2SAT 93; BMI 26.0
--- NOTE | 2018-09-02 10:36 | PM.PREOP ---
Pre-operative Note Interval Note History & Physical reviewed/Exam performed by Physician: Yes Changes to H&P: No
[2018-09-02] MEDS: CHONDROIDTIN/SOD HYALURONATE 1.05 ML SYRINGE INTRAOCULA (11:11)
[2018-09-02] MEDS: MOXIFLOXACIN OPHTH DROPS 3 ML BOTTLE 2 DROPS INJ (11:11)
[2018-09-02] MEDS: PHENYLEPHRINE/LIDOCAINE VIAL (OR) 0.2 ML EYE-OP (11:11)
[2018-09-02] MEDS: BALANCED SALT IRRIG SOLN NO.2 15 ML IRR (11:12)
[2018-09-02] MEDS: TETRACAINE 0.5% OPHTH DROPS 4 ML 2 DROPS EYE-RIGHT (11:12)
[2018-09-02] MEDS: BALANCED SALT IRRIG SOLN NO.2 500 ML, EPINEPHrine 1 MG IRR (11:12)
[2018-09-02] MEDS: LIDOCAINE 2% INJ SDV 5 ML INJ (11:13)
--- NOTE | 2018-09-02 11:28 | PM.OP.1 ---
Procedure & Clinicians Procedure: Cataract extraction with intraocular lens implant, [facility] Indications: combined forms of age related cataract, [facility] Surgeon: Asaf Sainz Click Yes if Unassisted: Yes Anesthesia Type: MAC +/- Operative Notes Procedure in detail: The patient was brought to the operating suite. The correct patient, surgical site and lens were confirmed. 0.5 % tetracaine drops were placed in the right eye. The patient was prepped and draped in the typical sterile manner. A lid speculum was placed in the eye. 2% lidocaine was placed on the eye. A paracentesis port was created with a side-port blade. 0.1 mL of 1% preservative free lidocaine with phenylephrine was injected into the anterior chamber. Viscoelastic was injected into the anterior chamber. A 2.6mm keratome was used to create a clear corneal temporal incision. Cystotome and Utrata forceps were used to create a continuous curvilinear capsulorrhexis. Balanced salt solution was used to hydrodissect the nucleus. Phacoemulsification was used to remove the lens. The capsular bag was inflated with viscoelastic. A Tucker ZBOO +21.5D lens was inserted into the capsule. Viscoelastic was removed and the wound hydrated. The wound was found to be leak free and the eye was assessed to be at normal physiologic pressure. 0.1mL Vigamox was injected into the anterior chamber. The lid speculum was removed and the patient left the operating room in excellent condition. Complications: none Condition: stable Disposition: same day surgery
[2018-09-02 11:35] VITALS: BP 140/77; PULSE 77; RESP 16; TEMP 37.2; O2SAT 100
[2018-10-14 15:40] VITALS: BMI 26.0
[2018-10-14 15:42] VITALS: BMI 26.0
[2018-10-14 15:48] VITALS: BMI 26.0
--- NOTE | 2018-10-14 18:07 | PM.OP.1 ---
Procedure & Clinicians Procedure: Cataract extraction with intraocular lens implant, left Same procedure as scheduled: Yes Indications: Visually significant cataract, left Surgeon: Asaf Sainz Click Yes if Unassisted: Yes Anesthesia Type: MAC +/- Operative Notes Procedure in detail: The patient was brought to the operating suite. The correct patient, surgical site and lens were confirmed. 0.5 % tetracaine drops were placed in the left eye. The patient was prepped and draped in the typical sterile manner. A lid speculum was placed in the eye. 2% lidocaine was placed on the eye. A paracentesis port was created with a side-port blade. 0.1 mL of 1% preservative free lidocaine with phenylephrine was injected into the anterior chamber. Viscoelastic was injected into the anterior chamber. A 2.6mm keratome was used to create a clear corneal temporal incision. Cystotome and Utrata forceps were used to create a continuous curvilinear capsulorrhexis. Balanced salt solution was used to hydrodissect the nucleus. Phacoemulsification was used to remove the lens. The capsular bag was inflated with viscoelastic. A Tucker ZBOO +22.5D lens was inserted into the capsule. Viscoelastic was removed and the wound hydrated. The wound was found to be leak free and the eye was assessed to be at normal physiologic pressure. 0.1mL Vigamox was injected into the anterior chamber. The lid speculum was removed and the patient left the operating room in excellent condition. Complications: none Condition: stable Disposition: same day surgery
== END ==
PROVIDERS: Family Provider Family Medicine; PCP Family Medicine; Visit Provider Ophthalmology
DX: H25.811 Combined forms of age-related cataract, right eye (principal); F41.9 Anxiety disorder, unspecified; J44.9 Chronic obstructive pulmonary disease, unspecified; J43.9 Emphysema, unspecified; F17.210 Nicotine dependence, cigarettes, uncomplicated
CPT/HCPCS: J0171; J2250; J3010

== ENCOUNTER → 2018-09-22 16:21 | Outpatient (CLI) | payer MEDICARE, MEDICAID, SELFPAY ==
[2018-09-22 16:54] LABS: Add Manual Diff / Slide Review NO; Basophils Absolute Auto 100 /uL (0-100); Basophils Percent Auto 0.5 % (0-2); Eosinophils Absolute Auto 300 /uL (0-450); Hematocrit 41.8 % (41-53); Hemoglobin 13.8 g/dL (13.5-17.5); Lymphocytes Absolute Auto 2900 /uL (1100-4500); Mean Corpuscular HGB Conc 33.2 % (30-36); Mean Corpuscular Hemoglobin 28.2 PG (26-34); Mean Corpuscular Volume 85.2 fL (80-100); Monocytes Absolute Auto 800 /uL (0-900); Monocytes Percent Auto 6.8 % (3-14); Neutrophils Absolute Auto 7500 /uL (1500-7000); Neutrophils Percent Auto 64.7 % (50-75); Platelet Count 175 X10^3/uL (150-400); Red Cell Distribution Width 13.8 % (11.6-14.8); White Blood Cell Count 11.5 X10^3/uL (4.5-11.0)
[2018-09-22 17:13] LABS: Alanine Aminotransferase 27 IU/L (21-72); Albumin 4.3 g/dL (3.5-5.0); Albumin Globulin Ratio 1.4 (1.0-2.8); Alkaline Phosphatase 65 U/L (38-126); Aspartate Aminotransferase 23 IU/L (17-59); BUN Creatinine Ratio 18.9 (6-22); Bilirubin Total 0.3 mg/dL (0.2-1.3); Blood Urea Nitrogen 17 mg/dL (9-20); Calcium 9.3 mg/dL (8.4-10.2); Carbon Dioxide 31 mmol/L (22-32); Chloride 101 mmol/L (98-107); Estimated Glomerular Filt Rate > 60.0 mL/min (>60); Glucose 83 mg/dL (70-100); HEMOLYSIS < 15 (0-50); Potassium 4.7 mmol/L (3.4-5.1); Sodium 141 mmol/L (137-145); Total Protein 7.3 g/dL (6.3-8.2)
[2018-09-22 19:24] LABS: Appearance Urine UA CLEAR; Bilirubin Urine UA NEGATIVE (NEGATIVE); Color Urine UA YELLOW; Glucose Urine UA NEGATIVE (Negative); Ketones Urine UA NEGATIVE (NEGATIVE); Leukocyte Esterase Urine UA NEGATIVE (NEGATIVE); Nitrite Urine UA NEGATIVE (Negative); Occult Blood Urine UA 1+ (Negative); Protein Urine UA NEGATIVE (Negative); Specific Gravity Urine UA 1.025 (1.000-1.035); Urobilinogen Urine UA 0.2 E.U./dL (0.2)
== END ==
PROVIDERS: Family Provider Family Medicine; PCP Family Medicine; Visit Provider Nurse Practitioner Family
DX: R10.9 Unspecified abdominal pain (principal); R10.30 Lower abdominal pain, unspecified
CPT/HCPCS: 36415; 80053; 81003; 85025

== ENCOUNTER → 2018-09-23 10:57 | Outpatient (CLI) | payer MEDICARE, MEDICAID, SELFPAY ==
--- NOTE | 2018-09-23 11:00 | DI.US.S_ITS ---
PROCEDURE: US ABDOMEN COMPLETE INDICATIONS: RIGHT UPPER QUADRANT PAIN TECHNIQUE: Real-time scanning was performed of the abdominal and retroperitoneal organs, with image documentation. COMPARISON: [facility], [place], PET NECK TO MID THIGH, 07/29/2017, 13:36. [facility], CT, CT ABDOMEN PELVIS W CON, 02/06/2018, 15:22. FINDINGS: Liver: Liver is normal in size and demonstrates diffuse increased hepatic echotexture. Gallbladder: No gallstones. No gallbladder wall thickening, pericholecystic fluid or sonographic Hernandes's sign. Biliary ducts: Intrahepatic bile ducts are non-dilated. Extrahepatic bile duct caliber measures 3.7 mm. Normal is 6-7 mm or less in diameter, or 10 mm or less post-cholecystectomy. Pancreas: Obscured by overlying bowel gas. Spleen: Spleen is normal in size and homogeneous in echotexture. Kidneys: Kidneys are normal in size and echotexture. Right kidney measures 11.0 cm long; left kidney measures 10.1 cm long. There is a 8 mm stone in inferior pole of the right kidney. No hydronephrosis. No solid masses. Aorta: Visualized aorta is normal in caliber at less than 3 cm. Iliacs: Proximal common iliac arteries are normal in caliber at less than 2.5 cm. IVC: Intrahepatic inferior vena cava is patent. Miscellaneous: No free abdominal fluid. IMPRESSION: 1. Diffusely increased hepatic echotexture. This finding is most likely secondary to hepatic fatty infiltration although other hepatocellular disease may have a similar appearance. Recommend clinical correlation. 2. An 8 mm nonobstructive stone in the inferior pole of the right kidney. Dictated by: Eddi Gómez M.D. on 09/23/2018 at 12:54 Approved by: Eddi Gómez M.D. on 09/23/2018 at 13:09
== END ==
PROVIDERS: PCP Family Medicine; Visit Provider Nurse Practitioner Family
DX: R10.11 Right upper quadrant pain (principal); N28.1 Cyst of kidney, acquired
CPT/HCPCS: 76700

== ENCOUNTER 2018-10-14 12:42 | Day surgery (SDC) | payer MEDICARE, MEDICAID, SELFPAY ==
[2018-10-14] MEDS: PROPARACAINE 0.5% OPHTH SOL 2 DROPS EYE-LEFT (15:32)
[2018-10-14] MEDS: CATARACT EYE COMPOUND (10 DROPS/SYRINGE) 3 DROPS EYE-OP (15:34)
[2018-10-14 16:49] VITALS: BP 132/77; PULSE 80; RESP 16; TEMP 36.9; O2SAT 98; BMI 25.9
[2018-10-14 17:01] VITALS: BP 132/77; PULSE 80; RESP 16; TEMP 36.9; O2SAT 98; BMI 25.9
--- NOTE | 2018-10-14 17:39 | PM.PREOP ---
Pre-operative Note Interval Note History & Physical reviewed/Exam performed by Physician: Yes Changes to H&P: No
[2018-10-14] MEDS: PHENYLEPHRINE/LIDOCAINE VIAL (OR) 0.2 ML EYE-OP (17:52)
[2018-10-14] MEDS: MOXIFLOXACIN OPHTH DROPS 3 ML BOTTLE 1 DROPS EYE-LEFT (17:55)
[2018-10-14] MEDS: CHONDROIDTIN/SOD HYALURONATE 1.05 ML SYRINGE INTRAOCULA (17:55)
[2018-10-14] MEDS: BALANCED SALT IRRIG SOLN NO.2 15 ML IRR (17:58)
[2018-10-14] MEDS: TETRACAINE 0.5% OPHTH DROPS 4 ML 2 DROPS EYE-LEFT (17:59)
[2018-10-14] MEDS: SODIUM CHLORIDE IRRIG SOLUTION 250 ML, EPINEPHrine 1 MG IRR (18:01)
--- NOTE | 2018-10-14 18:09 | OP_ITS ---
Procedure & Clinicians Procedure: Cataract extraction with intraocular lens implant, left Same procedure as scheduled: Yes Indications: Visually significant cataract, left Surgeon: Asaf Sainz Click Yes if Unassisted: Yes Anesthesia Type: MAC +/- Operative Notes Procedure in detail: The patient was brought to the operating suite. The correct patient, surgical site and lens were confirmed. 0.5 % tetracaine drops were placed in the left eye. The patient was prepped and draped in the typical sterile manner. A lid speculum was placed in the eye. 2% lidocaine was placed on the eye. A paracentesis port was created with a side-port blade. 0.1 mL of 1% preservative free lidocaine with phenylephrine was injected into the anterior chamber. Viscoelastic was injected into the anterior chamber. A 2.6mm keratome was used to create a clear corneal temporal incision. Cystotome and Utrata forceps were used to create a continuous curvilinear capsulorrhexis. Balanced salt solution was used to hydrodissect the nucleus. Phacoemulsification was used to remove the lens. The capsular bag was inflated with viscoelastic. A Tucker ZBOO +22.5D lens was inserted into the capsule. Viscoelastic was removed and the wound hydrated. The wound was found to be leak free and the eye was assessed to be at normal physiologic pressure. 0.1mL Vigamox was injected into the anterior chamber. The lid speculum was removed and the patient left the operating room in excellent condition. Complications: none Condition: stable Disposition: same day surgery Signed By:<Electronically signed by Asaf Sainz MD> 10/14/18 8425
[2018-10-14 18:20] VITALS: BP 137/78; PULSE 75; RESP 16; TEMP 36.7; O2SAT 98
== END 2018-10-14 18:40 | disposition home or self-care (01) ==
PROVIDERS: PCP Family Medicine; Visit Provider Ophthalmology
DX: H26.8 Other specified cataract (principal); F41.9 Anxiety disorder, unspecified; J44.9 Chronic obstructive pulmonary disease, unspecified; J43.9 Emphysema, unspecified; F17.210 Nicotine dependence, cigarettes, uncomplicated
CPT/HCPCS: J0171; J2250; J3010

== ENCOUNTER 2018-11-30 12:33 | Emergency (ER) | payer MEDICARE, MEDICAID, SELFPAY ==
[2018-11-30 12:45] VITALS: BP 129/75; PULSE 97; RESP 21; TEMP 36.6; O2SAT 96
--- NOTE | 2018-11-30 12:53 | DI.RAD.S_ITS ---
PROCEDURE: XR CHEST 2V INDICATIONS: shortness of breath TECHNIQUE: 2 views of the chest were acquired. COMPARISON: [facility], CR, XR CHEST 2V, 06/28/2018, 16:58. FINDINGS: Surgical changes and devices: None. Lungs and pleura: Lungs are clear. No pleural effusions or pneumothorax. Mediastinum: Mediastinal contours are normal. Heart size is normal. Bones and chest wall: No suspicious bony abnormalities. Soft tissues appear unremarkable. IMPRESSION: No acute cardiopulmonary disease process. Dictated by: Lianet Celis MD, PhD on 11/30/2018 at 13:24 Approved by: Lianet Celis MD, PhD on 11/30/2018 at 13:24
[2018-11-30] MEDS: ALBUTEROL/IPRATROPIUM 3 ML AMPUL INH ×2 (14:43→16:10)
[2018-11-30 14:44] VITALS: PULSE 92; O2SAT 97
--- NOTE | 2018-11-30 16:07 | ED.SOB ---
HPI - SOB/Dyspnea General Chief Complaint: Shortness of Breath/Dyspnea Stated Complaint: RIGHT LUNG PAIN LITTLE SOB Time Seen by Provider: 11/30/18 14:49 Source: patient Mode of arrival: ambulatory Limitations: no limitations History of Present Illness Patient complains of shortness of breath and ?my COPD is acting up?. Patient states he uses supplemental O2 2-4 L depending on his activity level home. He states that he also uses daily nebulizer treatments, and that these do not seem to be getting top of his shortness breath. Patient states the main reason he came to the ER today is that he has been experiencing a strong chest pain on the right that is worse with laughing and coughing especially but also with deep breaths. No fever that has been measured at home. No change in the patient's cough. No abdominal symptoms. Related Data Home Medications Medication Instructions Recorded Confirmed montelukast [Singulair] 10 mg PO QPM #0 10/27/17 11/30/18 Spiriva with HandiHaler 18 mcg INH DAILY 06/28/18 11/30/18 mometasone-formoterol [Dulera] 2 puff INHALATION BID 09/02/18 11/30/18 azithromycin 250 mg tablet 250 mg PO Q OTHER DAY 09/22/18 10/25/18 Previous Rx's Medication Instructions Recorded clonazepam 0.5 mg tablet 0.5 mg PO BIDP PRN #30 tab 07/26/18 benzonatate 100 mg capsule 100 mg PO TID #90 cap 09/30/18 cetirizine 10 mg capsule 10 mg PO DAILY #30 cap 09/30/18 simvastatin 20 mg tablet 20 mg PO BEDTIME #90 tab 09/30/18 albuterol sulfate HFA 90 1 - 2 puff INHALATION Q4HP PRN #18 11/25/18 mcg/actuation aerosol inhaler gram prednisone 60 mg PO DAILY #15 tab 11/30/18 Allergies Allergy/AdvReac Type Severity Reaction Status Date / Time beclomethasone [From QVAR] Allergy Severe tachycardia Verified 10/25/18 13:27 budesonide [From SYMBICORT] Allergy Severe tachycardia Verified 10/25/18 13:27 cinnamon [CINNAMON] Allergy Severe RESP Verified 10/25/18 13:27 PROBLEMS AND SWELLING formoterol [From SYMBICORT] Allergy Severe tachycardia Verified 10/25/18 13:27 codeine [CODEINE] Allergy Intermediate violent Verified 10/25/18 13:27 Sulfa (Sulfonamide Allergy Intermediate anaphylacti Verified 10/25/18 13:27 Antibiotics) c [SULFA (SULFONAMIDE ANTIBIOTICS)] trimethoprim [TRIMETHOPRIM] Allergy Unknown Verified 10/25/18 13:27 fluticasone [FLUTICASONE] AdvReac Intermediate FEELS Verified 10/25/18 13:27 LIKE FIRE IN THE LUNGS doxycycline [DOXYCYCLINE] AdvReac Mild N/V Verified 10/25/18 13:27 prednisone [PREDNISONE] AdvReac Mild SHAKY AND Verified 10/25/18 13:27 WEAK ON HIGHER DOSES Review of Systems Constitutional Denies chills, Denies fever(s), Denies lethargy and Denies weakness Eyes Denies change in vision, Denies eye discharge, Denies irritation and Denies loss of vision ENT Ears, Nose, Mouth, and Throat: Denies change in voice, Denies neck pain and Denies sore throat Cardiovascular Denies chest pain, Denies irregular heart rhythm, Denies lightheadedness, Denies palpitations, Reports dyspnea, Reports dyspnea on exertion and Denies orthopnea Respiratory Denies cough, Reports dyspnea, Reports dyspnea on exertion and Denies wheezing Gastrointestinal Gastrointestinal: Denies abdominal pain, Denies change in bowel habits, Denies diarrhea, Denies nausea and Denies vomiting Genitourinary Denies hematuria, Denies flank pain, Denies urinary incontinence and Denies urinary urgency Musculoskeletal Denies neck pain Integumentary/Breasts Denies pruritus, Denies erythema, Denies rash and Denies wounds Neurologic Denies confusion, Denies loss of vision and Denies weakness Psychiatric Denies anxiety, Denies confusion, Denies depression, Denies homicidal ideation and Denies suicidal ideation Endocrine Denies palpitations Hematologic/Lymphatic Denies easy bruising Allergic/Immunologic Denies wheezing [facility] Medical History Anxiety (Chronic ~2015) Asthma (Chronic Unknown) COPD (chronic obstructive pulmonary disease) (Chronic ~2013) Hyperlipidemia (Chronic ~2015) Insomnia (Chronic ~2015) Hematuria (Resolved ~2014) TIA (transient ischemic attack) (Resolved 05/2014) Surgical History No pertinent past surgical history (Acute) Family History Mother Age: 80 Hypertension Sister Age: 63 Cancer Social History household members: family Smoking Status: Current every day smoker alcohol intake: never substance use type: does not use Social History household members: family Smoking Status: Current every day smoker alcohol intake: never substance use type: does not use Exam Initial Vital Signs Initial Vital Signs: Vital Signs Temperature 97.8 F 11/30/18 12:45 Pulse Rate 97 H 11/30/18 12:45 Respiratory Rate 21 11/30/18 12:45 Blood Pressure 129/75 11/30/18 12:45 Pulse Oximetry 96 11/30/18 12:45 Const General: cooperative and well developed Nutritional Appearance: well nourished Orientation: alert, awake, oriented x3 and not confused HENMT Head: normocephalic and atraumatic Ears: external ears normal Nose: external nose normal and No nasal discharge Face and sinus: face symmetric and No dry mucous membranes Mouth: oral mucosae normal and moist mucous membranes Teeth and gingiva: dentition normal Eyes General: appearance normal, both eyes and all related structures Eyelids: eyelids normal Conjunctivae: conjunctivae normal Sclera: sclerae normal Pupils: PERRL EOM: EOM intact bilaterally Neck Neck: normal visual inspection, trachea midline, No lymphadenopathy, No midline deformity and No JVD Lymphatic: No lymphedema Chest Chest: normal inspection of the chest Resp Effort & Inspection: normal respiratory effort, able to speak in complete sentences, labored (Mild), no respiratory distress and no use of accessory muscles Auscultation: clear to auscultation bilaterally, no rales, no rhonchi and no wheezes Cardio Rate: regular rate Rhythm: regular rhythm Heart Sounds: no click, no gallops, no murmurs and no rubs Pulses: normal peripheral pulses GI Inspection: non-distended Palpation: soft, no hepatosplenomegaly, No guarding, No pulsatile mass and No tender Auscultation: normal bowel sounds Back/Spine/Pelvis Back: No CVA tenderness Cervical Spine: cervical ROM normal and No pain with cervical ROM Thoracic/Lumbar Spine: thoracic and lumbar spine normal to inspection Skin General: no rashes or lesions noted, No jaundice and No petechiae Neuro General: alert, oriented x3, gait normal and no focal motor deficits Speech: speech normal Extrem General: full ROM, no clubbing, cyanosis or edema, no pedal edema and no calf tenderness Psych Appearance: well kempt Mental Status: mental status grossly normal Attitude: cooperative Thought Content: normal and suicidality Judgment: judgment good Course Course Narrative: Patient was treated with a DuoNeb upon arrival in the emergency department. Chest x-ray is performed and found to be negative. Patient was found to be feeling better after his DuoNeb, which was the time of my initial evaluation, but did note that he felt like he could still use 1 more nebulizer treatment. Patient was given a 2nd nebulizer treatment, as well as prednisone. I felt the patient was stable for discharge home. We have discussed the usual indications for return, as well as symptomatic management at home. Orders Ordered: Discontinued Medications Albuterol/Ipratropium (Duoneb) 3 ml INH NOW ONE Stop: 11/30/18 14:38 Last Admin: 11/30/18 14:43 Dose: 3 ml Albuterol/Ipratropium (Duoneb) 3 ml INH NOW ONE Stop: 11/30/18 16:04 Last Admin: 11/30/18 16:10 Dose: 3 ml Ketorolac Tromethamine (Toradol) 60 mg IM NOW ONE Stop: 11/30/18 17:21 Last Admin: 11/30/18 17:24 Dose: 60 mg Prednisone (Deltasone) 60 mg PO NOW ONE Stop: 11/30/18 16:04 Last Admin: 11/30/18 16:10 Dose: 60 mg Vital Signs - 8 hr 11/30/18 12:45 11/30/18 14:44 Temperature 97.8 F Pulse Rate 97 H 92 H Respiratory Rate 21 Blood Pressure 129/75 Pulse Oximetry 96 97 MDM - SOB/Dyspnea Medical Records Attestation: I reviewed the patient's medical records. Imaging Data Chest x-ray: Radiologist's impression: [address] [address] XRay Report Signed Patient: Rose,Mak [facility]#: [id number] : 1960Acct:[id number] Age/Sex: 57 / MDate of Service: 11/30/18 Loc: ED Accession Number: [id number] Procedure: XR chest 2V Ordering Provider: Anna Bergman MD PROCEDURE: XR CHEST 2V INDICATIONS: shortness of breath TECHNIQUE: 2 views of the chest were acquired. COMPARISON: [facility], CR, XR CHEST 2V, 06/28/2018, 16:58. FINDINGS: Surgical changes and devices: None. Lungs and pleura: Lungs are clear. No pleural effusions or pneumothorax. Mediastinum: Mediastinal contours are normal. Heart size is normal. Bones and chest wall: No suspicious bony abnormalities. Soft tissues appear unremarkable. IMPRESSION: No acute cardiopulmonary disease process. Dictated by: Lianet Celis MD, PhD on 11/30/2018 at 13:24 Approved by: Lianet Celis MD, PhD on 11/30/2018 at 13:24 ECG Data Attestation: I personally reviewed and interpreted this ECG as follows: (See below) Interpretation: Twelve lead EKG performed November 30, 2018 at 12:45 p.m., as follows: Regular ventricular rhythm with a rate of 91 beats per minute SC interval is 159 milliseconds QRS duration 108 millisecond QTC interval [address] T wave abnormality Interpretation: Normal sinus rhythm; nonspecific ST T wave abnormality; normal axis; no signs of acute ischemia; borderline EKG as interpreted by ED MD. Discharge Plan Departure Patient Disposition: Home Clinical Impression: COPD (chronic obstructive pulmonary disease) Qualifiers: COPD type: COPD with acute exacerbation Qualified Code(s): J44.1 - Chronic obstructive pulmonary disease with (acute) exacerbation Discharge Date/Time: 11/30/18 18:41 Interventions: ED Discharge Assessment Last Done: 11/30/18 18:40 Instructions: DI for Chronic Obstructive Pulmonary Disease Prescriptions: New prednisone 20 mg tablet 60 mg PO DAILY Qty: 15 RF: 0 No Action clonazepam 0.5 mg tablet 0.5 mg PO BIDP PRN (Reason: anxiety) Qty: 30 RF: 0 azithromycin 250 mg tablet 250 mg PO Q OTHER DAY RF: 0 montelukast [Singulair] 10 MG tablet 10 mg PO QPM Qty: 0 RF: 0 benzonatate 100 mg capsule 100 mg PO TID Qty: 90 RF: 1 All Day Allergy (cetirizine) 10 mg capsule 10 mg PO DAILY Qty: 30 RF: 3 simvastatin 20 mg tablet 20 mg PO BEDTIME Qty: 90 RF: 0 Ventolin HFA 90 mcg/actuation HFA aerosol inhaler 1 - 2 puff Inhalation Q4HP PRN (Reason: Shortness Of Breath Or Wheezing) Qty: 18 RF: 3 Dulera 200-5 mcg/actuation Hfa Aerosol Inhaler 2 puff INHALATION BID RF: 0 Spiriva with HandiHaler 18 MCG capsule, w/inhalation device 18 mcg INH DAILY RF: 0 Referrals: Naye Reese DO [Primary Care Provider] -
[2018-11-30] MEDS: predniSONE 20 MG TABLET 60 MG PO (16:10)
[2018-11-30 16:15] VITALS: PULSE 88; RESP 12; O2SAT 98
[2018-11-30 16:30] VITALS: BP 139/72; PULSE 83; RESP 17; O2SAT 95
[2018-11-30] MEDS: KETOROLAC 60 MG/2 ML VIAL IM (17:24)
[2018-11-30 18:00] VITALS: BP 127/66; PULSE 81; RESP 17; O2SAT 98
== END 2018-11-30 18:41 | disposition home or self-care (01) ==
PROVIDERS: Emergency Provider Emergency Medicine; Family Provider Family Medicine; PCP Family Medicine
DX: J44.1 Chronic obstructive pulmonary disease with (acute) exacerbation (principal); R07.89 Other chest pain
CPT/HCPCS: 71046; 93005; 93010; 94640; 96372; 99282; 99284; J1885

== ENCOUNTER 2018-12-29 09:39 | Emergency (ER) | payer MEDICARE, MEDICAID, SELFPAY ==
[2018-12-29 09:36] VITALS: BP 184/83; PULSE 73; RESP 17; TEMP 36.8; O2SAT 97; BMI 26.4
--- NOTE | 2018-12-29 09:45 | ED.LOWEXIN ---
HPI - Extremity Injury (Lower) General Chief Complaint: Extremity Injury, Lower Stated Complaint: Leg pain Time Seen by Provider: 12/29/18 09:40 Source: patient and EMS Mode of arrival: EMS Limitations: no limitations History of Present Illness HPI Narrative: 58-year-old male smoker with COPD on home oxygen presents by EMS with evaluation bilateral lower extremity pain and tingling in the absence of any injury or overuse. He states this has happened once or twice before but never quite this bad. He denies any change in his activity, medications or diet. He has not had any nausea, vomiting or diarrhea. He states it feels like they are cramping. There is no redness, warmth or swelling. He has not taken any medications prior to coming as he did not want to alter our perception of what's going on. He is not dizzy nor weak or lightheaded. Denies any chest pain or shortness of breath. He has had no fever or chills. MD complaint: other Onset (ago): hour(s) Severity: moderate Relieving factors: nothing Exacerbating factors: weight bearing and movement Other symptoms: none Related Data Home Medications Medication Instructions Recorded Confirmed Spiriva with HandiHaler 18 mcg INH DAILY 06/28/18 12/29/18 mometasone-formoterol [Dulera] 2 puff INHALATION BID 09/02/18 12/29/18 azithromycin 250 mg tablet 250 mg PO Q OTHER DAY 09/22/18 12/29/18 ondansetron 4 mg disintegrating 4 mg PO BID-TID PRN 12/03/18 12/29/18 tablet Tylenol 1 dose PO PRN PRN 12/29/18 12/29/18 cetirizine [All Day Allergy 10 mg PO QPM 12/29/18 12/29/18 (cetirizine)] ibuprofen 1 dose PO PRN PRN 12/29/18 12/29/18 magnesium hydroxide 1 dose PO PRN PRN 12/29/18 12/29/18 montelukast 10 mg PO QPM 12/29/18 12/29/18 nystatin 1 dose PO DIRECTED 12/29/18 12/29/18 Previous Rx's Medication Instructions Recorded clonazepam 0.5 mg tablet 0.5 mg PO BIDP PRN #30 tab 07/26/18 benzonatate 100 mg capsule 100 mg PO TID #90 cap 09/30/18 simvastatin 20 mg tablet 20 mg PO BEDTIME #90 tab 09/30/18 albuterol sulfate HFA 90 1 - 2 puff INHALATION Q4HP PRN #18 11/25/18 mcg/actuation aerosol inhaler gram prednisone 5 mg tablet 5 mg PO DAILY #21 tab 12/03/18 Allergies Allergy/AdvReac Type Severity Reaction Status Date / Time beclomethasone [From QVAR] Allergy Severe tachycardia Verified 12/29/18 09:45 budesonide [From SYMBICORT] Allergy Severe tachycardia Verified 12/29/18 09:45 cinnamon [CINNAMON] Allergy Severe RESP Verified 12/29/18 09:45 PROBLEMS AND SWELLING formoterol [From SYMBICORT] Allergy Severe tachycardia Verified 12/29/18 09:45 codeine [CODEINE] Allergy Intermediate violent Verified 12/29/18 09:45 Sulfa (Sulfonamide Allergy Intermediate anaphylacti Verified 12/29/18 09:45 Antibiotics) c [SULFA (SULFONAMIDE ANTIBIOTICS)] trimethoprim [TRIMETHOPRIM] Allergy Unknown Verified 12/29/18 09:45 fluticasone [FLUTICASONE] AdvReac Intermediate FEELS Verified 12/29/18 09:45 LIKE FIRE IN THE LUNGS doxycycline [DOXYCYCLINE] AdvReac Mild N/V Verified 12/29/18 09:45 prednisone [PREDNISONE] AdvReac Mild SHAKY AND Verified 12/29/18 09:45 WEAK ON HIGHER DOSES Review of Systems Constitutional Denies chills, Denies fever(s), Denies lethargy and Denies weakness Eyes Denies change in vision, Denies eye discharge, Denies irritation and Denies loss of vision ENT Ears, Nose, Mouth, and Throat: Denies change in voice, Denies neck pain and Denies sore throat Cardiovascular Denies chest pain, Denies irregular heart rhythm, Denies lightheadedness, Denies palpitations, Denies dyspnea, Denies dyspnea on exertion and Denies orthopnea Respiratory Denies cough, Denies dyspnea, Denies dyspnea on exertion and Denies wheezing Gastrointestinal Gastrointestinal: Denies abdominal pain, Denies change in bowel habits, Denies diarrhea, Denies nausea and Denies vomiting Genitourinary Denies hematuria, Denies flank pain, Denies urinary incontinence and Denies urinary urgency Musculoskeletal Reports muscle cramps and Denies neck pain Integumentary/Breasts Denies pruritus, Denies erythema, Denies rash and Denies wounds Neurologic Denies confusion, Denies loss of vision and Denies weakness Psychiatric Denies anxiety, Denies confusion, Denies depression, Denies homicidal ideation and Denies suicidal ideation Endocrine Denies palpitations Hematologic/Lymphatic Denies easy bruising Allergic/Immunologic Denies wheezing [facility] History Anxiety (Chronic ~2015) Asthma (Chronic Unknown) COPD (chronic obstructive pulmonary disease) (Chronic ~2013) Hyperlipidemia (Chronic ~2015) Insomnia (Chronic ~2015) Hematuria (Resolved ~2014) TIA (transient ischemic attack) (Resolved 05/2014) Surgical History No pertinent past surgical history (Acute) Family History Mother Age: 80 Hypertension Sister Age: 63 Cancer Social History household members: family Smoking Status: Current every day smoker alcohol intake: never substance use type: does not use Family History Mother Age: 80 Hypertension Sister Age: 63 Cancer Social History household members: family Smoking Status: Current every day smoker alcohol intake: never substance use type: does not use Exam Narrative Exam Narrative: GENERAL: 58-year-old male appears older than stated age, obviously uncomfortable, no respiratory distress. GCS 15 HEAD: Atraumatic. Normocephalic. No temporal or scalp tenderness. EYES: Pupils equal round and reactive. Extraocular motions intact. No scleral icterus. No injection or drainage. ENT: Nose without bleeding, purulent drainage or septal hematoma. Throat without erythema, tonsillar hypertrophy or exudate. Uvula midline. Airway patent. NECK: Trachea midline. No JVD or lymphadenopathy. Supple, nontender, no meningeal signs. CARDIOVASCULAR: Regular rate and rhythm without murmurs, gallops, or rubs. RESPIRATORY: Decreased breath sounds bilaterally with prolonged expiratory phase GASTROINTESTINAL: Abdomen soft, non-tender, nondistended. No hepato-splenomegaly, or palpable masses. No guarding. EXTREMITIES: Pain to palpation but no redness, swelling or warmth. No edema or obvious deformity. No rash. Sensation and pulses intact BACK: Nontender without deformity or crepitance. No flank tenderness. NEURO: AOx3. SKIN: No rash or erythema. Initial Vital Signs Initial Vital Signs: Vital Signs Temperature 98.2 F 12/29/18 09:36 Pulse Rate 73 12/29/18 09:36 Respiratory Rate 17 12/29/18 09:36 Blood Pressure 184/83 H 12/29/18 09:36 Pulse Oximetry 97 12/29/18 09:36 Course Orders Ordered: ED Orders 12/29/18 09:47 EKG-12 Lead Stat 12/29/18 09:57 XR chest 1V Stat 12/29/18 10:10 Basic Metabolic Panel Stat C-Reactive Protein Quant Stat Complete Blood Count AUTO DIFF Stat Comprehensive Metabolic Panel Stat Erythrocyte Sedimentation Rate Stat Lipase Stat Partial Thromboplastin Time Stat Prothrombin Time INR Stat Troponin & CK Cardiac Panel Stat Uric Acid Stat Discontinued Medications Acetaminophen (Tylenol) 975 mg PO NOW ONE Stop: 12/29/18 10:51 Last Admin: 12/29/18 10:50 Dose: 975 mg Albuterol/Ipratropium (Duoneb) 3 ml INH NOW ONE Stop: 12/29/18 10:56 Last Admin: 12/29/18 10:50 Dose: 3 ml Sodium Chloride (Normal Saline 0.9%) 500 mls @ 1,000 mls/hr IV BOLUS ONE Stop: 12/29/18 10:44 Last Infusion: 12/29/18 11:50 Dose: 0 mls/hr Admin: 12/29/18 10:49 Dose: 1,000 mls/hr Ketorolac Tromethamine (Toradol) 15 mg IV NOW ONE Stop: 12/29/18 10:16 Last Admin: 12/29/18 10:49 Dose: 15 mg Vital Signs - 8 hr 12/29/18 10:00 12/29/18 10:30 12/29/18 10:50 Pulse Rate 73 75 74 Respiratory Rate 16 16 16 Blood Pressure [Left Arm] 158/91 H 140/71 Pulse Oximetry 98 99 99 12/29/18 11:00 12/29/18 11:57 Pulse Rate 70 70 Respiratory Rate 17 14 Blood Pressure [Left Arm] 150/85 H 140/67 Pulse Oximetry 100 99 MDM - Extremity Injury (Lower) Medical Records Attestation: I reviewed the patient's medical records. Lab Data Attestation: I reviewed the patient's lab results. Result diagrams: 12/29/18 10:10 12/29/18 10:10 Lab Results 12/29/18 12/29/18 12/29/18 Range/Units 10:10 10:10 10:10 WBC 9.3 (4.5-11.0) X10^3/uL RBC 5.06 (4.5-5.9) X10^6/uL Hgb 13.9 (13.5-17.5) g/dL Hct 43.2 (41-53) % MCV 85.4 (80-100) fL MCH 27.6 (26-34) PG MCHC 32.3 (30-36) % RDW 15.2 H (11.6-14.8) % Plt Count 156 (150-400) X10^3/uL Neut % (Auto) 54.1 (50-75) % Lymph % (Auto) 36.8 (25-40) % Hinds % (Auto) 5.3 (3-14) % Eos % (Auto) 3.1 (2-4) % Baso % (Auto) 0.7 (0-2) % Neut # (Auto) 5000 (9007-6183) /uL Lymph # (Auto) 3400 (9267-3947) /uL Hinds # (Auto) 500 (0-900) /uL Eos # (Auto) 300 (0-450) /uL Baso # (Auto) 100 (0-100) /uL ESR (0-15) MM/HR PT 9.6 L (10.1-12.7) SECONDS INR 0.8 L (0.9-1.3) APTT 31 (26.4-36.2) SECONDS Sodium 143 (137-145) mmol/L Potassium 4.2 (3.4-5.1) mmol/L Chloride 107 (98-107) mmol/L Carbon Dioxide 31 (22-32) mmol/L BUN 20 (9-20) mg/dL Creatinine 0.80 (0.66-1.25) mg/dL Estimated GFR > 60.0 (>60) mL/min BUN/Creatinine Ratio 25.0 H (6-22) Glucose 85 (70-100) mg/dL Uric Acid (3.5-8.5) mg/dL Calcium 9.1 (8.4-10.2) mg/dL Total Bilirubin 0.5 (0.2-1.3) mg/dL AST 23 (17-59) IU/L ALT 22 (21-72) IU/L Alkaline Phosphatase 54 (38-126) U/L Total Creatine Kinase 36 L (55-170) U/L CK-MB (CK-2) TNP CK-MB (CK-2) Rel Index TNP Troponin I < 0.012 (0.01-0.034) ng/mL C-Reactive Protein (<1.0) mg/dL Total Protein 7.2 (6.3-8.2) g/dL Albumin 4.1 (3.5-5.0) g/dL Globulin 3.1 (1.7-4.1) g/dL Albumin/Globulin Ratio 1.3 (1.0-2.8) Lipase 294 (23-300) U/L 12/29/18 12/29/18 Range/Units 10:10 10:10 WBC (4.5-11.0) X10^3/uL RBC (4.5-5.9) X10^6/uL Hgb (13.5-17.5) g/dL Hct (41-53) % MCV (80-100) fL MCH (26-34) PG MCHC (30-36) % RDW (11.6-14.8) % Plt Count (150-400) X10^3/uL Neut % (Auto) (50-75) % Lymph % (Auto) (25-40) % Hinds % (Auto) (3-14) % Eos % (Auto) (2-4) % Baso % (Auto) (0-2) % Neut # (Auto) (6842-1516) /uL Lymph # (Auto) (1893-3893) /uL Hinds # (Auto) (0-900) /uL Eos # (Auto) (0-450) /uL Baso # (Auto) (0-100) /uL ESR 19 H (0-15) MM/HR PT (10.1-12.7) SECONDS INR (0.9-1.3) APTT (26.4-36.2) SECONDS Sodium 143 (137-145) mmol/L Potassium 4.2 (3.4-5.1) mmol/L Chloride 107 (98-107) mmol/L Carbon Dioxide 31 (22-32) mmol/L BUN 20 (9-20) mg/dL Creatinine 0.80 (0.66-1.25) mg/dL Estimated GFR > 60.0 (>60) mL/min BUN/Creatinine Ratio 25.0 H (6-22) Glucose 86 (70-100) mg/dL Uric Acid 5.1 (3.5-8.5) mg/dL Calcium 9.3 (8.4-10.2) mg/dL Total Bilirubin (0.2-1.3) mg/dL AST (17-59) IU/L ALT (21-72) IU/L Alkaline Phosphatase (38-126) U/L Total Creatine Kinase (55-170) U/L CK-MB (CK-2) CK-MB (CK-2) Rel Index Troponin I (0.01-0.034) ng/mL C-Reactive Protein 0.6 (<1.0) mg/dL Total Protein (6.3-8.2) g/dL Albumin (3.5-5.0) g/dL Globulin (1.7-4.1) g/dL Albumin/Globulin Ratio (1.0-2.8) Lipase (23-300) U/L Imaging Data Chest x-ray: Attestation: I personally reviewed and interpreted this imaging study as follows: Radiologist's impression: Mak Rose 58 M [address] [address] XRay Report Signed Patient: Mak Rose [facility]#: [id number] : 1960Acct:[id number] Age/Sex: 58 / MDate of Service: 12/29/18 Loc: ED Accession Number: [id number] Procedure: XR chest 1V Ordering Provider: Randall Sierra D.O. PROCEDURE: XR CHEST 1V INDICATIONS: chest pain TECHNIQUE: One view of the chest was acquired. COMPARISON: [facility], CR, XR CHEST 2V, 11/30/2018, 12:55. FINDINGS: Surgical changes and devices: None. Lungs and pleura: Lungs are clear. No pleural effusions or pneumothorax. Mediastinum: Mediastinal contours appear normal. Heart size is normal. Bones and chest wall: No suspicious bony lesions. Overlying soft tissues appear unremarkable. IMPRESSION: Stable chest. No acute cardiopulmonary process is evident. Dictated by: Peter Stover M.D. on 12/29/2018 at 10:20 Approved by: Peter Stover M.D. on 12/29/2018 at 10:20 [facility] Narrative Medical decision making narrative: Multiple etiologies for patient's symptoms considered including: [Neuropathy versus electrolyte abnormality versus infection versus gout versus vascular abnormality such as AAA or dissection (thought less likely given normal appearing abdominal ultrasound from September)] Patient's symptoms improved or duration of stay with above-stated therapies. Findings and discharge diagnosis discussed with patient/family followed by verbalization of understanding Return precautions discussed with patient/family whom verbalize understanding. Discharge Plan Departure Patient Disposition: Home Clinical Impression: Lower extremity pain, bilateral Discharge Date/Time: 12/29/18 12:04 Interventions: ED Discharge Assessment Last Done: 12/29/18 12:03 Instructions: DI for Leg Pain Activity Restrictions/Additional Instructions: *You have been diagnosed with [bilateral lower extremity pain] *What to do: *Take medications as directed: Tylenol or Motrin for pain *Follow up with your primary care provider in 2-3 days, call for an appointment. Let them know you were seen in the Emergency Department and that we ask that you be seen in follow up *Return to ER if you should have any new, worsening or concerning symptoms Prescriptions: No Action clonazepam 0.5 mg tablet 0.5 mg PO BIDP PRN (Reason: anxiety) Qty: 30 RF: 0 azithromycin 250 mg tablet 250 mg PO Q OTHER DAY RF: 0 benzonatate 100 mg capsule 100 mg PO TID Qty: 90 RF: 1 simvastatin 20 mg tablet 20 mg PO BEDTIME Qty: 90 RF: 0 Ventolin HFA 90 mcg/actuation HFA aerosol inhaler 1 - 2 puff Inhalation Q4HP PRN (Reason: Shortness Of Breath Or Wheezing) Qty: 18 RF: 3 ondansetron 4 mg tablet,disintegrating 4 mg PO BID-TID PRN (Reason: Nausea) RF: 0 prednisone 5 mg tablet 5 mg PO DAILY Qty: 21 RF: 0 Dulera 200-5 mcg/actuation Hfa Aerosol Inhaler 2 puff INHALATION BID RF: 0 montelukast 10 mg tablet 10 mg PO QPM RF: 0 nystatin 100,000 unit/mL suspension 1 dose PO DIRECTED RF: 0 magnesium hydroxide 400 mg/5 mL Suspension 1 dose PO PRN PRN (Reason: Indigestion) RF: 0 ibuprofen 200 mg Tablet 1 dose PO PRN PRN (Reason: pain) RF: 0 Tylenol 1 dose PO PRN PRN (Reason: pain) RF: 0 All Day Allergy (cetirizine) 10 mg capsule 10 mg PO QPM RF: 0 Spiriva with HandiHaler 18 MCG capsule, w/inhalation device 18 mcg INH DAILY RF: 0 Referrals: Naye Reese DO [Primary Care Provider] -
--- NOTE | 2018-12-29 09:57 | DI.RAD.S_ITS ---
PROCEDURE: XR CHEST 1V INDICATIONS: chest pain TECHNIQUE: One view of the chest was acquired. COMPARISON: [facility], CR, XR CHEST 2V, 11/30/2018, 12:55. FINDINGS: Surgical changes and devices: None. Lungs and pleura: Lungs are clear. No pleural effusions or pneumothorax. Mediastinum: Mediastinal contours appear normal. Heart size is normal. Bones and chest wall: No suspicious bony lesions. Overlying soft tissues appear unremarkable. IMPRESSION: Stable chest. No acute cardiopulmonary process is evident. Dictated by: Peter Stover M.D. on 12/29/2018 at 10:20 Approved by: Peter Stover M.D. on 12/29/2018 at 10:20
[2018-12-29 10:00] VITALS: BP 158/91; PULSE 73; RESP 16; O2SAT 98
[2018-12-29 10:27] LABS: Add Manual Diff / Slide Review NO; Basophils Absolute Auto 100 /uL (0-100); Basophils Percent Auto 0.7 % (0-2); Eosinophils Absolute Auto 300 /uL (0-450); Eosinophils Percent Auto 3.1 % (2-4); Hematocrit 43.2 % (41-53); Hemoglobin 13.9 g/dL (13.5-17.5); Lymphocytes Absolute Auto 3400 /uL (1100-4500); Lymphocytes Percent Auto 36.8 % (25-40); Mean Corpuscular HGB Conc 32.3 % (30-36); Mean Corpuscular Hemoglobin 27.6 PG (26-34); Mean Corpuscular Volume 85.4 fL (80-100); Monocytes Absolute Auto 500 /uL (0-900); Monocytes Percent Auto 5.3 % (3-14); Neutrophils Absolute Auto 5000 /uL (1500-7000); Neutrophils Percent Auto 54.1 % (50-75); Platelet Count 156 X10^3/uL (150-400); Red Blood Cell Count 5.06 X10^6/uL (4.5-5.9); Red Cell Distribution Width 15.2 % (11.6-14.8); White Blood Cell Count 9.3 X10^3/uL (4.5-11.0)
[2018-12-29 10:30] VITALS: BP 140/71; PULSE 75; RESP 16; O2SAT 99
--- NOTE | 2018-12-29 10:32 | ED_ITS ---
HPI - Extremity Injury (Lower) General Chief Complaint: Extremity Injury, Lower Stated Complaint: Leg pain Time Seen by Provider: 12/29/18 09:40 Source: patient and EMS Mode of arrival: EMS Limitations: no limitations History of Present Illness HPI Narrative: 58-year-old male smoker with COPD on home oxygen presents by EMS with evaluation bilateral lower extremity pain and tingling in the absence of any injury or overuse. He states this has happened once or twice before but never quite this bad. He denies any change in his activity, medications or diet. He has not had any nausea, vomiting or diarrhea. He states it feels like they are cramping. There is no redness, warmth or swelling. He has not taken a ny medications prior to coming as he did not want to alter our perception of what's going on. He is not dizzy nor weak or lightheaded. Denies any chest pain or shortness of breath. He has had no fever or chills. MD complaint: other Onset (ago): hour(s) Severity: moderate Relieving factors: nothing Exacerbating factors: weight bearing and movement Other symptoms: none Related Data Home Medications Medication Instructions Recorded Confirmed Spiriva with HandiHaler 18 mcg INH DAILY 06/28/18 12/29/18 mometasone-formoterol [Dulera] 2 puff INHALATION BID 09/02/18 12/29/18 azithromycin 250 mg tablet 250 mg PO Q OTHER DAY 09/22/18 12/29/18 ondansetron 4 mg disintegrating 4 mg PO BID-TID PRN 12/03/18 12/29/18 tablet Tylenol 1 dose PO PRN PRN 12/29/18 12/29/18 cetirizine [All Day Allergy 10 mg PO QPM 12/29/18 12/29/18 (cetirizine)] ibuprofen 1 dose PO PRN PRN 12/29/18 12/29/18 magnesium hydroxide 1 dose PO PRN PRN 12/29/18 12/29/18 montelukast 10 mg PO QPM 12/29/18 12/29/18 nystatin 1 dose PO DIRECTED 12/29/18 12/29/18 Previous Rx's Medication Instructions Recorded clonazepam 0.5 mg tablet 0.5 mg PO BIDP PRN #30 tab 07/26/18 benzonatate 100 mg capsule 100 mg PO TID #90 cap 09/30/18 simvastatin 20 mg tablet 20 mg PO BEDTIME #90 tab 09/30/18 albuterol sulfate HFA 90 1 - 2 puff INHALATION Q4HP PRN #18 11/25/18 mcg/actuation aerosol inhaler gram prednisone 5 mg tablet 5 mg PO DAILY #21 tab 12/03/18 Allergies Allergy/AdvReac Type Severity Reaction Status Date / Time beclomethasone [From QVAR] Allergy Severe tachycardia Verified 12/29/18 09:45 budesonide [From SYMBICORT] Allergy Severe tachycardia Verified 12/29/18 09:45 cinnamon [CINNAMON] Allergy Severe RESP Verified 12/29/18 09:45 PROBLEMS AND SWELLING formoterol [From SYMBICORT] Allergy Severe tachycardia Verified 12/29/18 09:45 codeine [CODEINE] Allergy Intermediate violent Verified 12/29/18 09:45 Sulfa (Sulfonamide Allergy Intermediate anaphylacti Verified 12/29/18 09:45 Antibiotics) c [SULFA (SULFONAMIDE ANTIBIOTICS)] trimethoprim [TRIMETHOPRIM] Allergy Unknown Verified 12/29/18 09:45 fluticasone [FLUTICASONE] AdvReac Intermediate FEELS Verified 12/29/18 09:45 LIKE FIRE IN THE LUNGS doxycycline [DOXYCYCLINE] AdvReac Mild N/V Verified 12/29/18 09:45 prednisone [PREDNISONE] AdvReac Mild SHAKY AND Verified 12/29/18 09:45 WEAK ON HIGHER DOSES Review of Systems Constitutional Denies chills, Denies fever(s), Denies lethargy and Denies weakness Eyes Denies change in vision, Denies eye discharge, Denies irritation and Denies loss of vision ENT Ears, Nose, Mouth, and Throat: Denies change in voice, Denies neck pain and De nies sore throat Cardiovascular Denies chest pain, Denies irregular heart rhythm, Denies lightheadedness, Denies palpitations, Denies dyspnea, Denies dyspnea on exertion and Denies orthopnea Respiratory Denies cough, Denies dyspnea, Denies dyspnea on exertion and Denies wheezing Gastrointestinal Gastrointestinal: Denies abdominal pain, Denies change in bowel habits, Denies diarrhea, Denies nausea and Denies vomiting Genitourinary Denies hematuria, Denies flank pain, Denies urinary incontinence and Denies urinary urgency Musculoskeletal Reports muscle cramps and Denies neck pain Integumentary/Breasts Denies pruritus, Denies erythema, Denies rash and Denies wounds Neurologic Denies confusion, Denies loss of vision and Denies weakness Psychiatric Denies anxiety, Denies confusion, Denies depression, Denies homicidal ideation and Denies suicidal ideation Endocrine Denies palpitations Hematologic/Lymphatic Denies easy bruising Allergic/Immunologic Denies wheezing PFSH Medical History Anxiety (Chronic ~2015) Asthma (Chronic Unknown) COPD (chronic obstructive pulmonary disease) (Chronic ~2013) Hyperlipidemia (Chronic ~2015) Insomnia (Chronic ~2015) Hematuria (Resolved ~2014) TIA (transient ischemic attack) (Resolved 05/2014) Surgical History No pertinent past surgical history (Acute) Family History Mother Age: 80 Hypertension Sister Age: 63 Cancer Social History household members: family Smoking Status: Current every day smoker alcohol intake: never substance use type: does not use Family History Mother Age: 80 Hypertension Sister Age: 63 Cancer Social History household members: family Smoking Status: Current every day smoker alcohol intake: never substance use type: does not use Exam Narrative Exam Narrative: GENERAL: 58-year-old male appears older than stated age, obviously uncomfortable, no respiratory distress. GCS 15 HEAD: Atraumatic. Normocephalic. No temporal or scalp tenderness. EYES: Pupils equal round and reactive. Extraocular motions intact. No scleral icterus. No injection or drainage. ENT: Nose without bleeding, purulent drainage or septal hematoma. Throat without erythema, tonsillar hypertrophy or exudate. Uvula midline. Airway patent. NECK: Trachea midline. No JVD or lymphadenopathy. Supple, nontender, no meningeal signs. CARDIOVASCULAR: Regular rate and rhythm without murmurs, gallops, or rubs. RESPIRATORY: Decreased breath sounds bilaterally with prolonged expiratory phase GASTROINTESTINAL: Abdomen soft, non-tender, nondistended. No hepato- splenomegaly, or palpable masses. No guarding. EXTREMITIES: Pain to palpation but no redness, swelling or warmth. No edema or obvious deformity. No rash. Sensation and pulses intact BACK: Nontender without deformity or crepitance. No flank tenderness. NEURO: AOx3. SKIN: No rash or erythema. Initial Vital Signs Initial Vital Signs: Vital Signs Temperature 98.2 F 12/29/18 09:36 Pulse Rate 73 12/29/18 09:36 Respiratory Rate 17 12/29/18 09:36 Blood Pressure 184/83 H 12/29/18 09:36 Pulse Oximetry 97 12/29/18 09:36 Course Orders Ordered: ED Orders 12/29/18 09:47 EKG-12 Lead Stat 12/29/18 09:57 XR chest 1V Stat 12/29/18 10:10 Basic Metabolic Panel Stat C-Reactive Protein Quant Stat Complete Blood Count AUTO DIFF Stat Comprehensive Metabolic Panel Stat Erythrocyte Sedimentation Rate Stat Lipase Stat Partial Thromboplastin Time Stat Prothrombin Time INR Stat Troponin & CK Cardiac Panel Stat Uric Acid Stat Discontinued Medications Acetaminophen (Tylenol) 975 mg PO NOW ONE Stop: 12/29/18 10:51 Last Admin: 12/29/18 10:50 Dose: 975 mg Albuterol/Ipratropium (Duoneb) 3 ml INH NOW ONE Stop: 12/29/18 10:56 Last Admin: 12/29/18 10:50 Dose: 3 ml Sodium Chloride (Normal Saline 0.9%) 500 mls @ 1,000 mls/hr IV BOLUS ONE Stop: 12/29/18 10:44 Last Infusion: 12/29/18 11:50 Dose: 0 mls/hr Admin: 12/29/18 10:49 Dose: 1,000 mls/hr Ketorolac Tromethamine (Toradol) 15 mg IV NOW ONE Stop: 12/29/18 10:16 Last Admin: 12/29/18 10:49 Dose: 15 mg Vital Signs - 8 hr 12/29/18 10:00 12/29/18 10:30 12/29/18 10:50 Pulse Rate 73 75 74 Respiratory Rate 16 16 16 Blood Pressure [Left Arm] 158/91 H 140/71 Pulse Oximetry 98 99 99 12/29/18 11:00 12/29/18 11:57 Pulse Rate 70 70 Respiratory Rate 17 14 Blood Pressure [Left Arm] 150/85 H 140/67 Pulse Oximetry 100 99 MDM - Extremity Injury (Lower) Medical Records Attestation: I reviewed the patient's medical records. Lab Data Attestation: I reviewed the patient's lab results. Result diagrams: 12/29/18 10:10 12/29/18 10:10 Lab Results 12/29/18 12/29/18 12/29/18 Range/Units 10:10 10:10 10:10 WBC 9.3 (4.5-11.0) X10^3/uL RBC 5.06 (4.5-5.9) X10^6/uL Hgb 13.9 (13.5-17.5) g/dL Hct 43.2 (41-53) % MCV 85.4 (80-100) fL MCH 27.6 (26-34) PG MCHC 32.3 (30-36) % RDW 15.2 H (11.6-14.8) % Plt Count 156 (150-400) X10^3/uL Neut % (Auto) 54.1 (50-75) % Lymph % (Auto) 36.8 (25-40) % [place] % (Auto) 5.3 (3-14) % Eos % (Auto) 3.1 (2-4) % Baso % (Auto) 0.7 (0-2) % Neut # (Auto) 5000 (8849-8406) /uL Lymph # (Auto) 3400 (1030-2695) /uL [place] # (Auto) 500 (0-900) /uL Eos # (Auto) 300 (0-450) /uL Baso # (Auto) 100 (0-100) /uL ESR (0-15) MM/HR PT 9.6 L (10.1-12.7) SECONDS INR 0.8 L (0.9-1.3) APTT 31 (26.4-36.2) SECONDS Sodium 143 (137-145) mmol/L Potassium 4.2 (3.4-5.1) mmol/L Chloride 107 (98-107) mmol/L Carbon Dioxide 31 (22-32) mmol/L BUN 20 (9-20) mg/dL Creatinine 0.80 (0.66-1.25) mg/dL Estimated GFR > 60.0 (>60) mL/min BUN/Creatinine Ratio 25.0 H (6-22) Glucose 85 (70-100) mg/dL Uric Acid (3.5-8.5) mg/dL Calcium 9.1 (8.4-10.2) mg/dL Total Bilirubin 0.5 (0.2-1.3) mg/dL AST 23 (17-59) IU/L ALT 22 (21-72) IU/L Alkaline Phosphatase 54 (38-126) U/L Total Creatine Kinase 36 L (55-170) U/L CK-MB (CK-2) TNP CK-MB (CK-2) Rel Index TNP Troponin I < 0.012 (0.01-0.034) ng/mL C-Reactive Protein (<1.0) mg/dL Total Protein 7.2 (6.3-8.2) g/dL Albumin 4.1 (3.5-5.0) g/dL Globulin 3.1 (1.7-4.1) g/dL Albumin/Globulin Ratio 1.3 (1.0-2.8) Lipase 294 (23-300) U/L 12/29/18 12/29/18 Range/Units 10:10 10:10 WBC (4.5-11.0) X10^3/uL RBC (4.5-5.9) X10^6/uL Hgb (13.5-17.5) g/dL Hct (41-53) % MCV (80-100) fL MCH (26-34) PG MCHC (30-36) % RDW (11.6-14.8) % Plt Count (150-400) X10^3/uL Neut % (Auto) (50-75) % Lymph % (Auto) (25-40) % [place] % (Auto) (3-14) % Eos % (Auto) (2-4) % Baso % (Auto) (0-2) % Neut # (Auto) (8696-7779) /uL Lymph # (Auto) (8018-2488) /uL [place] # (Auto) (0-900) /uL Eos # (Auto) (0-450) /uL Baso # (Auto) (0-100) /uL ESR 19 H (0-15) MM/HR PT (10.1-12.7) SECONDS INR (0.9-1.3) APTT (26.4-36.2) SECONDS Sodium 143 (137-145) mmol/L Potassium 4.2 (3.4-5.1) mmol/L Chloride 107 (98-107) mmol/L Carbon Dioxide 31 (22-32) mmol/L BUN 20 (9-20) mg/dL Creatinine 0.80 (0.66-1.25) mg/dL Estimated GFR > 60.0 (>60) mL/min BUN/Creatinine Ratio 25.0 H (6-22) Glucose 86 (70-100) mg/dL Uric Acid 5.1 (3.5-8.5) mg/dL Calcium 9.3 (8.4-10.2) mg/dL Total Bilirubin (0.2-1.3) mg/dL AST (17-59) IU/L ALT (21-72) IU/L Alkaline Phosphatase (38-126) U/L Total Creatine Kinase (55-170) U/L CK-MB (CK-2) CK-MB (CK-2) Rel Index Troponin I (0.01-0.034) ng/mL C-Reactive Protein 0.6 (<1.0) mg/dL Total Protein (6.3-8.2) g/dL Albumin (3.5-5.0) g/dL Globulin (1.7-4.1) g/dL Albumin/Globulin Ratio (1.0-2.8) Lipase (23-300) U/L Imaging Data Chest x-ray: Attestation: I personally reviewed and interpreted this imaging study as follows: Radiologist's impression: Mak Rose 58 M [address] [address] XRay Report Signed Patient: Mak Rose [facility]#: [id number] : 1960Acct:[id number] Age/Sex: 58 / MDate of Service: 12/29/18 Loc: ED Accession Number: [id number] Procedure: XR chest 1V Ordering Provider: Randall Sierra D.O. PROCEDURE: XR CHEST 1V INDICATIONS: chest pain TECHNIQUE: One view of the chest was acquired. COMPARISON: [facility], CR, XR CHEST 2V, 11/30/2018, 12:55. FINDINGS: Surgical changes and devices: None. Lungs and pleura: Lungs are clear. No pleural effusions or pneumothorax. Mediastinum: Mediastinal contours appear normal. Heart size is normal. Bones and chest wall: No suspicious bony lesions. Overlying soft tissues appear unremarkable. IMPRESSION: Stable chest. No acute cardiopulmonary process is evident. Dictated by: Peter Stover M.D. on 12/29/2018 at 10:20 Approved by: Peter Stover M.D. on 12/29/2018 at 10:20 [facility] Narrative Medical decision making narrative: Multiple etiologies for patient's symptoms considered including: [Neuropathy versus electrolyte abnormality versus infection versus gout versus vascular abnormality such as AAA or dissection (thought less likely given normal appearing abdominal ultrasound from September)] Patient's symptoms improved or duration of stay with above-stated therapies. Findings and discharge diagnosis discussed with patient/family followed by verbalization of understanding Return precautions discussed with patient/family whom verbalize understanding. Discharge Plan Departure Patient Disposition: Home Clinical Impression: Lower extremity pain, bilateral Discharge Date/Time: 12/29/18 12:04 Interventions: ED Discharge Assessment Last Done: 12/29/18 12:03 Instructions: DI for Leg Pain Activity Restrictions/Additional Instructions: *You have been diagnosed with [bilateral lower extremity pain] *What to do: *Take medications as directed: Tylenol or Motrin for pain *Follow up with your primary care provider in 2-3 days, call for an appointment. Let them know you were seen in the Emergency Department and that we ask that you be seen in follow up *Return to ER if you should have any new, worsening or concerning symptoms Prescriptions: No Action clonazepam 0.5 mg tablet 0.5 mg PO BIDP PRN (Reason: anxiety) Qty: 30 RF: 0 azithromycin 250 mg tablet 250 mg PO Q OTHER DAY RF: 0 benzonatate 100 mg capsule 100 mg PO TID Qty: 90 RF: 1 simvastatin 20 mg tablet 20 mg PO BEDTIME Qty: 90 RF: 0 Ventolin HFA 90 mcg/actuation HFA aerosol inhaler 1 - 2 puff Inhalation Q4HP PRN (Reason: Shortness Of Breath Or Wheezing) Qty: 18 RF: 3 ondansetron 4 mg tablet,disintegrating 4 mg PO BID-TID PRN (Reason: Nausea) RF: 0 prednisone 5 mg tablet 5 mg PO DAILY Qty: 21 RF: 0 Dulera 200-5 mcg/actuation Hfa Aerosol Inhaler 2 puff INHALATION BID RF: 0 montelukast 10 mg tablet 10 mg PO QPM RF: 0 nystatin 100,000 unit/mL suspension 1 dose PO DIRECTED RF: 0 magnesium hydroxide 400 mg/5 mL Suspension 1 dose PO PRN PRN (Reason: Indigestion) RF: 0 ibuprofen 200 mg Tablet 1 dose PO PRN PRN (Reason: pain) RF: 0 Tylenol 1 dose PO PRN PRN (Reason: pain) RF: 0 All Day Allergy (cetirizine) 10 mg capsule 10 mg PO QPM RF: 0 Spiriva with HandiHaler 18 MCG capsule, w/inhalation device 18 mcg INH DAILY RF: 0 Referrals: Naye Reese DO [Primary Care Provider] -
[2018-12-29 10:42] LABS: Alanine Aminotransferase 22 IU/L (21-72); Albumin 4.1 g/dL (3.5-5.0); Albumin Globulin Ratio 1.3 (1.0-2.8); Alkaline Phosphatase 54 U/L (38-126); Aspartate Aminotransferase 23 IU/L (17-59); Bilirubin Total 0.5 mg/dL (0.2-1.3); Blood Urea Nitrogen 20 mg/dL (9-20); Calcium 9.1 mg/dL (8.4-10.2); Carbon Dioxide 31 mmol/L (22-32); Chloride 107 mmol/L (98-107); Creatine Kinase 36 U/L (55-170); Estimated Glomerular Filt Rate > 60.0 mL/min (>60); Globulin 3.1 g/dL (1.7-4.1); Glucose 85 mg/dL (70-100); HEMOLYSIS 27 (0-50); Lipase 294 U/L (23-300); Potassium 4.2 mmol/L (3.4-5.1); Sodium 143 mmol/L (137-145); Total Protein 7.2 g/dL (6.3-8.2)
[2018-12-29 10:46] LABS: Blood Urea Nitrogen 20 mg/dL (9-20); C-Reactive Protein Quant 0.6 mg/dL (<1.0); Calcium 9.3 mg/dL (8.4-10.2); Carbon Dioxide 31 mmol/L (22-32); Chloride 107 mmol/L (98-107); Estimated Glomerular Filt Rate > 60.0 mL/min (>60); Glucose 86 mg/dL (70-100); HEMOLYSIS 28 (0-50); Potassium 4.2 mmol/L (3.4-5.1); Sodium 143 mmol/L (137-145); Uric Acid 5.1 mg/dL (3.5-8.5)
[2018-12-29] MEDS: KETOROLAC 60 MG/2 ML VIAL 15 MG IV (10:49)
[2018-12-29] MEDS: SODIUM CHLORIDE 0.9% 500 ML 1000 ML IV (10:49)
[2018-12-29 10:50] VITALS: PULSE 74; RESP 16; O2SAT 99
[2018-12-29] MEDS: ALBUTEROL/IPRATROPIUM 3 ML AMPUL INH (10:50)
[2018-12-29] MEDS: ACETAMINOPHEN 325 MG TABLET 975 MG PO (10:50)
[2018-12-29 10:53] LABS: Troponin I < 0.012 ng/mL (0.01-0.034)
[2018-12-29 11:00] VITALS: BP 150/85; PULSE 70; RESP 17; O2SAT 100
[2018-12-29 11:07] LABS: Erythrocyte Sedimentation Rate 19 MM/HR (0-15)
--- NOTE | 2018-12-29 11:51 | PC.NURSE ---
pt states, movement improved after the meds. still has headache. tolerated ambulation, slow but steady.
[2018-12-29 11:57] VITALS: BP 140/67; PULSE 70; RESP 14; O2SAT 99
[2018-12-29 12:07] LABS: INR 0.8 (0.9-1.3); Prothrombin Time 9.6 SECONDS (10.1-12.7)
[2018-12-29 12:10] LABS: PTT Partial Thromboplastin Tim 31 SECONDS (26.4-36.2)
== END 2018-12-29 12:04 | disposition home or self-care (01) ==
PROVIDERS: Emergency Provider Emergency Medicine; PCP Family Medicine
DX: M79.604 Pain in right leg (principal); Z86.73 Personal history of transient ischemic attack (TIA), and cerebral infarction without residual deficits; Z99.81 Dependence on supplemental oxygen; Z87.09 Personal history of other diseases of the respiratory system
CPT/HCPCS: 36591; 71045; 80048; 80053; 82550; 83690; 84484; 84550; 85025; 85610; 85651; 85730; 86140; 93005; 94640; 96361; 96374; 99284; J1885

== ENCOUNTER → 2019-01-05 10:17 | Outpatient (CLI) | payer MEDICARE, MEDICAID, SELFPAY ==
[2019-01-05 13:00] LABS: Alanine Aminotransferase 22 IU/L (21-72); Albumin 4.5 g/dL (3.5-5.0); Albumin Globulin Ratio 1.3 (1.0-2.8); Alkaline Phosphatase 72 U/L (38-126); Aspartate Aminotransferase 26 IU/L (17-59); Bilirubin Total 0.4 mg/dL (0.2-1.3); Blood Urea Nitrogen 21 mg/dL (9-20); Calcium 9.9 mg/dL (8.4-10.2); Carbon Dioxide 33 mmol/L (22-32); Chloride 102 mmol/L (98-107); Cholesterol 200 mg/dL (140-199); Estimated Glomerular Filt Rate > 60.0 mL/min (>60); Globulin 3.4 g/dL (1.7-4.1); Glucose 88 mg/dL (70-100); HDL Cholesterol 48 mg/dL (40-60); HEMOLYSIS < 15 (0-50); LDL Cholesterol Calculated 124 mg/dL (<100); Potassium 4.5 mmol/L (3.4-5.1); Sodium 143 mmol/L (137-145); Total Protein 7.9 g/dL (6.3-8.2); Triglycerides 142 mg/dL (35-150)
[2019-01-05 14:03] LABS: Thyroid Stimulating Hormone 1.16 uIU/mL (0.47-4.68)
[2019-01-05 14:05] LABS: Folate 18.2 ng/mL (2.76-20.0); Vitamin B12 461 pg/mL (239-931)
== END ==
PROVIDERS: PCP Family Medicine; Visit Provider Family Medicine
DX: E78.5 Hyperlipidemia, unspecified (principal); J44.9 Chronic obstructive pulmonary disease, unspecified; J44.1 Chronic obstructive pulmonary disease with (acute) exacerbation; R63.4 Abnormal weight loss
CPT/HCPCS: 36415; 80053; 80061; 82607; 82746; 84443

== ENCOUNTER 2019-02-02 09:28 | Emergency (ER) | payer MEDICARE, MEDICAID, SELFPAY ==
[2019-02-02] VITALS (13 sets, daily range): BP systolic 103–138; BP diastolic 60–88; PULSE 70–99; RESP 17–28; TEMP 36.7; O2SAT 96–99
--- NOTE | 2019-02-02 09:32 | DI.RAD.S_ITS ---
PROCEDURE: XR CHEST 1V INDICATIONS: chest pain TECHNIQUE: One view of the chest was acquired. COMPARISON: [facility], CR, XR CHEST 1V, 12/29/2018, 10:01. FINDINGS: Surgical changes and devices: None. Lungs and pleura: Lungs are clear. No pleural effusions or pneumothorax. Mediastinum: Mediastinal contours appear normal. Heart size is normal. Bones and chest wall: No suspicious bony lesions. Overlying soft tissues appear unremarkable. IMPRESSION: No acute cardiopulmonary pathology. Dictated by: Giuseppe Fonseca M.D. on 02/02/2019 at 10:07 Approved by: Giuseppe Fonseca M.D. on 02/02/2019 at 10:09
[2019-02-02] MEDS: ASPIRIN 81 MG TAB 324 MG PO (09:41)
[2019-02-02] MEDS: ALBUTEROL/IPRATROPIUM 3 ML AMPUL INH ×2 (09:52→15:35)
--- NOTE | 2019-02-02 09:53 | ED.CHESTPAIN ---
HPI - Chest Pain General Chief Complaint: Chest Pain Stated Complaint: Chest pain Time Seen by Provider: 02/02/19 09:51 Source: patient and family (mother) Mode of arrival: EMS Limitations: no limitations History of Present Illness HPI narrative: 58-year-old male comes in with complaint of shortness of breath thumb that is been going on for couple days. Patient also complains of left-sided chest pain he states it has been present constantly for the last 3 days but sort intermittent. He states it is worse with inspiration, cough. Patient states that he has not had any fevers or chills he is aware of. He has had yellow productive sputum, he states that he normally has some but it seems a little bit thicker. Patient denies any vomiting but has felt slightly nauseated at times. He has had some loose stools 2 days normal bowel movements since with no a issues with urination. He denies any swelling in his lower extremities. He has chronic COPD, he is normally on 2 L when sedentary and on 3-4 L when ambulating. He is on albuterol as well as steroid inhaler. Patient also has a home ventilator type machine. Patient still smokes. Related Data Home Medications Medication Instructions Recorded Confirmed Spiriva with HandiHaler 18 mcg INH DAILY 06/28/18 02/02/19 mometasone-formoterol [Dulera] 2 puff INHALATION BID 09/02/18 02/02/19 azithromycin 250 mg tablet 250 mg PO Q OTHER DAY 09/22/18 02/02/19 ondansetron 4 mg disintegrating 4 mg PO BID-TID PRN 12/03/18 02/02/19 tablet acetaminophen 1 dose PO PRN PRN 12/29/18 02/02/19 cetirizine [All Day Allergy 10 mg PO QPM 12/29/18 02/02/19 (cetirizine)] ibuprofen 1 dose PO PRN PRN 12/29/18 02/02/19 magnesium hydroxide 1 dose PO PRN PRN 12/29/18 02/02/19 montelukast 10 mg PO QPM 12/29/18 02/02/19 nystatin 1 dose PO DIRECTED 12/29/18 02/02/19 food supplement, lactose-reduced See Rx Instructions .ROUTE 01/25/19 02/02/19 oral liquid .COMPLEX each Previous Rx's Medication Instructions Recorded clonazepam 0.5 mg tablet 0.5 mg PO BIDP PRN #30 tab 07/26/18 benzonatate 100 mg capsule 100 mg PO TID #90 cap 09/30/18 simvastatin 20 mg tablet 20 mg PO BEDTIME #90 tab 09/30/18 albuterol sulfate HFA 90 1 - 2 puff INHALATION Q4HP PRN #18 11/25/18 mcg/actuation aerosol inhaler gram lisinopril 10 mg tablet 10 mg PO DAILY #30 tab 01/25/19 Allergies Allergy/AdvReac Type Severity Reaction Status Date / Time beclomethasone [From QVAR] Allergy Severe tachycardia Verified 02/02/19 09:39 budesonide [From SYMBICORT] Allergy Severe tachycardia Verified 02/02/19 09:39 cinnamon [CINNAMON] Allergy Severe RESP Verified 02/02/19 09:39 PROBLEMS AND SWELLING formoterol [From SYMBICORT] Allergy Severe tachycardia Verified 02/02/19 09:39 codeine [CODEINE] Allergy Intermediate violent Verified 02/02/19 09:39 Sulfa (Sulfonamide Allergy Intermediate anaphylacti Verified 02/02/19 09:39 Antibiotics) c [SULFA (SULFONAMIDE ANTIBIOTICS)] doxycycline [DOXYCYCLINE] Allergy Mild N/V Verified 02/02/19 09:39 trimethoprim [TRIMETHOPRIM] Allergy Unknown Verified 02/02/19 09:39 fluticasone [FLUTICASONE] AdvReac Intermediate FEELS Verified 02/02/19 09:39 LIKE FIRE IN THE LUNGS prednisone [PREDNISONE] AdvReac Mild SHAKY AND Verified 02/02/19 09:39 WEAK ON HIGHER DOSES Review of Systems Review of Systems ROS Unobtainable: All systems reviewed & are unremarkable except as noted in HPI and below Constitutional Denies chills, Denies fever(s) and Denies lethargy Cardiovascular Reports chest pain (continous x 3 days. ), Denies diaphoresis, Denies syncope, Denies irregular heart rhythm, Denies lightheadedness, Denies palpitations, Reports dyspnea, Reports dyspnea on exertion and Denies orthopnea Respiratory Denies change in phlegm color, Reports chest congestion, Reports cough, Reports excessive phlegm production (yellow), Reports pain on inspiration, Reports pain with cough, Reports dyspnea and Reports dyspnea on exertion Gastrointestinal Gastrointestinal: Denies abdominal pain, Denies melena, Denies hematochezia, Denies change in bowel habits, Reports diarrhea (2 days ago, resolved.), Denies nausea and Denies vomiting Genitourinary Denies hematuria, Denies dysuria, Denies flank pain, Denies urinary frequency, Denies urinary incontinence and Denies urinary urgency Neurologic Denies syncope Endocrine Denies palpitations [facility] Medical History Anxiety (Chronic ~2015) Asthma (Chronic Unknown) COPD (chronic obstructive pulmonary disease) (Chronic ~2013) Hyperlipidemia (Chronic ~2015) Insomnia (Chronic ~2015) Hematuria (Resolved ~2014) TIA (transient ischemic attack) (Resolved 05/2014) Surgical History No pertinent past surgical history (Acute) Family History Mother Age: 80 Hypertension Sister Age: 63 Cancer Social History household members: family Smoking Status: Current every day smoker alcohol intake: never substance use type: does not use Family History Mother Age: 80 Hypertension Sister Age: 63 Cancer Social History household members: family Smoking Status: Current every day smoker alcohol intake: never substance use type: does not use Exam Narrative Exam Narrative: GENERAL: Alert and oriented x three, male appearing older than his stated age in mild distress. HEENT: Head normocephalic, atraumatic, EOMI, pupils reactive, face symmetric, moist mucous membranes NECK: Supple, full range of motion CARDIOVASCULAR: Regular rate and rhythm without murmurs, rubs or gallops. RESPIRATORY: Breath sounds equal bilaterally, no wheezes rales or rhonchi on exam after a breathing treatment. Patient has slight tachypnea. Nasal cannula is in place. ABDOMEN: Soft, nontender. Normoactive bowel sounds all 4 quadrants. No guarding or rebound, rigidity, no mass : No CVA tenderness EXTREMITIES: Normal range of motion, no clubbing, no edema bilateral extremities. Neurovascularly intact NEUROLOGICAL: Cranial nerves II through XII grossly intact. Moving all extremities SKIN: Warm, dry, no petechiae, no rashes or lesions. Initial Vital Signs Initial Vital Signs: Vital Signs Temperature 98.1 F 02/02/19 09:37 Pulse Rate 98 H 02/02/19 09:37 Respiratory Rate 28 H 02/02/19 09:37 Blood Pressure 127/88 02/02/19 09:37 Pulse Oximetry 98 02/02/19 09:37 Course Orders Ordered: ED Orders 02/02/19 13:21 CT angio chest PE protocol Stat Discontinued Medications Acetaminophen (Tylenol) 650 mg PO NOW ONE Stop: 02/02/19 10:17 Last Admin: 02/02/19 10:50 Dose: 650 mg Albuterol/Ipratropium (Duoneb) 3 ml INH NOW ONE Stop: 02/02/19 09:48 Last Admin: 02/02/19 09:52 Dose: 3 ml Albuterol/Ipratropium (Duoneb) 3 ml INH NOW ONE Stop: 02/02/19 15:25 Last Admin: 02/02/19 15:35 Dose: 3 ml Aspirin (Aspirin Chew) 324 mg PO NOW ONE Stop: 02/02/19 09:41 Last Admin: 02/02/19 09:41 Dose: 324 mg Methylprednisolone (Solu-Medrol 125 Mg Vial) 125 mg IV NOW ONE Stop: 02/02/19 10:17 Last Admin: 02/02/19 10:50 Dose: 125 mg Vital Signs - 8 hr 02/02/19 11:30 02/02/19 12:00 02/02/19 12:30 Pulse Rate 75 70 74 Respiratory Rate 19 18 17 Blood Pressure [Right Arm] 113/60 119/62 114/65 Pulse Oximetry 97 96 98 02/02/19 13:00 02/02/19 15:08 02/02/19 15:36 Pulse Rate 70 92 H 81 Respiratory Rate 18 18 19 Blood Pressure [Right Arm] 115/67 123/68 Pulse Oximetry 98 99 97 02/02/19 16:00 02/02/19 16:30 02/02/19 16:49 Pulse Rate 87 90 83 Respiratory Rate 19 25 H 17 Blood Pressure [Right Arm] 119/65 138/65 132/70 Pulse Oximetry 98 97 98 MDM - Chest Pain Lab Data Attestation: I reviewed the patient's lab results. Result diagrams: 02/02/19 09:52 02/02/19 09:52 Lab Results 02/02/19 02/02/19 02/02/19 Range/Units 09:15 09:15 09:52 WBC 11.4 H (4.5-11.0) X10^3/uL RBC 5.11 (4.5-5.9) X10^6/uL Hgb 14.2 (13.5-17.5) g/dL Hct 42.6 (41-53) % MCV 83.3 (80-100) fL MCH 27.9 (26-34) PG MCHC 33.4 (30-36) % RDW 14.3 (11.6-14.8) % Plt Count 203 (150-400) X10^3/uL Neut % (Auto) 68.9 (50-75) % Lymph % (Auto) 21.7 L (25-40) % [place] % (Auto) 6.1 (3-14) % Eos % (Auto) 3.0 (2-4) % Baso % (Auto) 0.3 (0-2) % Neut # (Auto) 7900 H (3889-3074) /uL Lymph # (Auto) 2500 (1121-4115) /uL [place] # (Auto) 700 (0-900) /uL Eos # (Auto) 300 (0-450) /uL Baso # (Auto) 0 (0-100) /uL PT (10.1-12.7) SECONDS INR (0.9-1.3) APTT (26.4-36.2) SECONDS Sodium (137-145) mmol/L Potassium (3.4-5.1) mmol/L Chloride (98-107) mmol/L Carbon Dioxide (22-32) mmol/L BUN (9-20) mg/dL Creatinine (0.66-1.25) mg/dL Estimated GFR (>60) mL/min BUN/Creatinine Ratio (6-22) Glucose (70-100) mg/dL Calcium (8.4-10.2) mg/dL Phosphorus 4.1 (2.5-4.5) mg/dL Magnesium 1.9 (1.6-2.3) mg/dL Total Bilirubin (0.2-1.3) mg/dL AST (17-59) IU/L ALT (21-72) IU/L Alkaline Phosphatase (38-126) U/L Total Creatine Kinase (55-170) U/L CK-MB (CK-2) CK-MB (CK-2) Rel Index Troponin I (0.01-0.034) ng/mL Total Protein (6.3-8.2) g/dL Albumin (3.5-5.0) g/dL Globulin (1.7-4.1) g/dL Albumin/Globulin Ratio (1.0-2.8) Lipase (23-300) U/L TSH 1.45 (0.47-4.68) uIU/mL 02/02/19 02/02/19 Range/Units 09:52 09:52 WBC (4.5-11.0) X10^3/uL RBC (4.5-5.9) X10^6/uL Hgb (13.5-17.5) g/dL Hct (41-53) % MCV (80-100) fL MCH (26-34) PG MCHC (30-36) % RDW (11.6-14.8) % Plt Count (150-400) X10^3/uL Neut % (Auto) (50-75) % Lymph % (Auto) (25-40) % [place] % (Auto) (3-14) % Eos % (Auto) (2-4) % Baso % (Auto) (0-2) % Neut # (Auto) (9946-4765) /uL Lymph # (Auto) (6710-1498) /uL [place] # (Auto) (0-900) /uL Eos # (Auto) (0-450) /uL Baso # (Auto) (0-100) /uL PT 11.7 (10.1-12.7) SECONDS INR 1.0 (0.9-1.3) APTT 40 H D (26.4-36.2) SECONDS Sodium 142 (137-145) mmol/L Potassium 3.9 (3.4-5.1) mmol/L Chloride 100 (98-107) mmol/L Carbon Dioxide 30 (22-32) mmol/L BUN 15 (9-20) mg/dL Creatinine 1.00 (0.66-1.25) mg/dL Estimated GFR > 60.0 (>60) mL/min BUN/Creatinine Ratio 15.0 (6-22) Glucose 133 H (70-100) mg/dL Calcium 9.6 (8.4-10.2) mg/dL Phosphorus (2.5-4.5) mg/dL Magnesium (1.6-2.3) mg/dL Total Bilirubin 0.5 (0.2-1.3) mg/dL AST 17 (17-59) IU/L ALT 11 L (21-72) IU/L Alkaline Phosphatase 86 (38-126) U/L Total Creatine Kinase 38 L (55-170) U/L CK-MB (CK-2) TNP CK-MB (CK-2) Rel Index TNP Troponin I < 0.012 (0.01-0.034) ng/mL Total Protein 7.8 (6.3-8.2) g/dL Albumin 4.4 (3.5-5.0) g/dL Globulin 3.4 (1.7-4.1) g/dL Albumin/Globulin Ratio 1.3 (1.0-2.8) Lipase 207 (23-300) U/L TSH (0.47-4.68) uIU/mL Imaging Data Chest x-ray: Radiologist's impression: [address] [address] XRay Report Signed Patient: Mak Rose [facility]#: [id number] : 1960Acct:[id number] Age/Sex: 58 / MDate of Service: 02/02/19 Loc: ED Accession Number: [id number] Procedure: XR chest 1V Ordering Provider: Vaishnavi Hinson D.O. PROCEDURE: XR CHEST 1V INDICATIONS: chest pain TECHNIQUE: One view of the chest was acquired. COMPARISON: [facility], CR, XR CHEST 1V, 12/29/2018, 10:01. FINDINGS: Surgical changes and devices: None. Lungs and pleura: Lungs are clear. No pleural effusions or pneumothorax. Mediastinum: Mediastinal contours appear normal. Heart size is normal. Bones and chest wall: No suspicious bony lesions. Overlying soft tissues appear unremarkable. IMPRESSION: No acute cardiopulmonary pathology. Dictated by: Giuseppe Fonseca M.D. on 02/02/2019 at 10:07 Approved by: Giuseppe Fonseca M.D. on 02/02/2019 at 10:09 CTA chest: Radiologist's impression: [facility] DATE TYPE STATUS AUTHOR Marlon 02/02/19 13:21 Pernell Adams 02/02/19 09:32 Giuseppe Fonseca 12/29/18 09:57 Peter Stover 11/30/18 12:53 Vimal,Lianet 09/23/18 11:00 Ollie Gómez 06/28/18 16:51 SullivanGustavo 06/10/18 03:00 Vimal,Lianet 05/07/18 00:00 PadillaSaurav 03/10/18 03:42 Rosendo Mac 02/06/18 23:30 Lianet Celis 02/06/18 14:53 TramaineDaphne 01/27/18 10:01 Rosendo Mac 12/26/17 01:09 Lianet Celis 11/29/17 15:31 Pernell Adams 05/30/14 08:36 Mak Rose 58, M1960 REG ER, ED.LOC - Main ED: R04 77.1kg Chest Pain Search Chart No Data to Display tachycardia tachycardia RESP PROBLEMS AND SWELLING tachycardia violent anaphylactic N/V FEELS LIKE FIRE IN THE LUNGS SHAKY AND WEAK ON HIGHER DOSES ONSET 07/14/16 Today 13:00 Mak Rose M [address] [address] [address] Scan Report Signed Patient: Mak Rose [facility]#: [id number] : 1960Acct:[id number] Age/Sex: 58 / MDate of Service: 02/02/19 Loc: ED Accession Number: [id number] Procedure: CT angio chest PE protocol Ordering Provider: Vaishnavi Hinson D.O. PROCEDURE: CT ANGIO CHEST PE PROTOCOL INDICATIONS: left chest pain, new sob TECHNIQUE: After the administration of intravenous contrast, 2 mm thick sections acquired from the pulmonary apices to the posterior costophrenic angles. 3-dimensional maximum intensity projection (MIP) coronal and sagittal reformats were then acquired through the thorax. For radiation dose reduction, the following was used: automated exposure control, adjustment of mA and/or kV according to patient size. COMPARISON: [facility], CT, THORAX WITHOUT CONTRAST, 07/17/2017, 9:43. [facility], CT, PE STUDY (CTA CHEST), 08/04/2016, 22:26. [facility], [place], PET NECK TO MID THIGH, 07/29/2017, 13:36. [facility], CT, CT CHEST WO CON, 01/27/2018, 9:58. [facility], CT, CT CHEST WO CON, 05/07/2018, 15:54. FINDINGS: Image quality: Excellent. Pulmonary arteries: Pulmonary arteries are normal in size, and demonstrate no intraluminal filling defects to suggest central pulmonary embolism. Lungs and pleura: Severe centrilobular emphysematous changes are redemonstrated. There are new small areas of consolidation involving the medial aspect of the left upper lobe anteriorly as well as the medial right upper lobe. There is a small subpleural bandlike opacity in the anterior right middle lobe likely representing atelectasis or small focus of consolidation. The previously identified irregular opacity in the right upper lobe anteriorly with mixed solid and ground glass components and spiculated margins appears progressively increased in size over time compared to the prior studies dating back to 07/17/17. Within the left upper lobe, there is a small nodule on series 5 image 71 measuring up to approximately 0.8 cm with indistinct ground glass margins which appears new compared to the 08/01/16 study. Indistinct nodules are also demonstrated anteriorly in the left lingula, increased from the prior study. No pleural effusions or pneumothorax. Central and peripheral airways are patent. Mediastinum: Heart size is normal, without pericardial effusion. No mediastinal or hilar adenopathy. Thoracic aorta is normal in caliber and enhancement. Esophagus is normal in caliber, without hiatal hernia. Bones and chest wall: No suspicious bony lesions. Ribs and thoracic spine appear intact throughout. Thyroid gland demonstrates no discrete nodules. No axillary or supraclavicular adenopathy. Abdomen: Visualized upper abdominal solid organs appear normal in the early arterial phase of enhancement. IMPRESSION: 1. No evidence of pulmonary embolism. 2. New small medial areas of consolidation in the upper lobes most likely representing pneumonia. 3. Bilateral irregular pulmonary nodules with groundglass components redemonstrated. 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 The differential includes an atypical infection. Consider histologic diagnosis of the right upper lobe nodule if clinically indicated. 4. Severe centrilobular emphysematous changes redemonstrated. Dictated by: Pernell Adams M.D. on 02/02/2019 at 13:45 Approved by: Pernell Adams M.D. on 02/02/2019 at 14:00 ECG Data Attestation: I personally reviewed and interpreted this ECG as follows: Interpretation: Sinus rhythm rate of 92 P are 156 QRS of 105 and QTC of [address] elevation, nonspecific changes. Patient has prior EKG from 12/29/2018 which appears similar. Patient had a and episode of what looks like V-tach for 19 beats, almost 6 seconds. Patient has not had any additional episodes. MDM Narrative Medical decision making narrative: Patient comes in with complaint of chest pain that has been present constantly but waxes and wanes in intensity. Patient has been feeling a little bit more short of breath. He does have increased chest pain with inspiration. He has a slightly elevated white count, slightly elevated PTT. CMP does not show any abnormalities except for glucose of 133, ALT and total CK are low. Troponin is negative. lipase is normal. EKG does not show acute changes, CXR does not show new changes. Patient did receive breathing treatments here which helped a little bit with his breathing but it is not totally normal. While he was in the department patient had episode which looks like V-tach, about 19 beats or almost 6 seconds. Patient did not appreciate any changes. He did not have any altered mental status or syncope. Discussed with Cardiology, Dr. Walters. At this time he recommends observation he does not recommend starting any anti arrhythmic but continuing to monitor on telemetry. He does recommend echo and stress test and serial cardiac enzymes. CTA was ordered and shows no PE, likely upper lobe pneumonia with bilateral irregular nodules that are progressively increased in size over time and suspicious for slow growing cancer. Results discussed with patient, he was aware of the nodules and was supposed to have CT imaging in the next month to recheck nodules specifically. We had a long discussion regarding goals of care, initially patient was reticient to come in for observation but felt that it would be beneficial. He did bring in his home medications including his home azithromycin which he took. Discussed with Dr. Green, we are not able to get ECHO in a timely manner. Discussed with patient, he is willing to transfer to [facility]. Spoke with Dr. Matthews who accepts for transfer. Discharge Plan Departure Patient Disposition: [facility] Clinical Impression: Atypical chest pain, Arrhythmia, Pneumonia Discharge Date/Time: 02/02/19 17:10 Interventions: ED Discharge Assessment Last Done: 02/02/19 17:10 Prescriptions: No Action clonazepam 0.5 mg tablet 0.5 mg PO BIDP PRN (Reason: anxiety) Qty: 30 RF: 0 azithromycin 250 mg tablet 250 mg PO Q OTHER DAY RF: 0 benzonatate 100 mg capsule 100 mg PO TID Qty: 90 RF: 1 simvastatin 20 mg tablet 20 mg PO BEDTIME Qty: 90 RF: 0 Ventolin HFA 90 mcg/actuation HFA aerosol inhaler 1 - 2 puff Inhalation Q4HP PRN (Reason: Shortness Of Breath Or Wheezing) Qty: 18 RF: 3 lisinopril 10 mg tablet 10 mg PO DAILY Qty: 30 RF: 0 ondansetron 4 mg tablet,disintegrating 4 mg PO BID-TID PRN (Reason: Nausea) RF: 0 Ensure liquid See Patient Comments .ROUTE .COMPLEX RF: 0 Dulera 200-5 mcg/actuation Hfa Aerosol Inhaler 2 puff INHALATION BID RF: 0 montelukast 10 mg tablet 10 mg PO QPM RF: 0 nystatin 100,000 unit/mL suspension 1 dose PO DIRECTED RF: 0 acetaminophen 325 mg Tablet 1 dose PO PRN PRN (Reason: pain) RF: 0 magnesium hydroxide 400 mg/5 mL Suspension 1 dose PO PRN PRN (Reason: Indigestion) RF: 0 ibuprofen 200 mg Tablet 1 dose PO PRN PRN (Reason: pain) RF: 0 All Day Allergy (cetirizine) 10 mg capsule 10 mg PO QPM RF: 0 Spiriva with HandiHaler 18 MCG capsule, w/inhalation device 18 mcg INH DAILY RF: 0 Referrals: Naye Reese DO [Primary Care Provider] -
[2019-02-02 10:06] LABS: Add Manual Diff / Slide Review NO; Basophils Absolute Auto 0 /uL (0-100); Basophils Percent Auto 0.3 % (0-2); Eosinophils Absolute Auto 300 /uL (0-450); Hematocrit 42.6 % (41-53); Hemoglobin 14.2 g/dL (13.5-17.5); Lymphocytes Absolute Auto 2500 /uL (1100-4500); Lymphocytes Percent Auto 21.7 % (25-40); Mean Corpuscular HGB Conc 33.4 % (30-36); Mean Corpuscular Hemoglobin 27.9 PG (26-34); Mean Corpuscular Volume 83.3 fL (80-100); Monocytes Absolute Auto 700 /uL (0-900); Monocytes Percent Auto 6.1 % (3-14); Neutrophils Absolute Auto 7900 /uL (1500-7000); Neutrophils Percent Auto 68.9 % (50-75); Platelet Count 203 X10^3/uL (150-400); Red Blood Cell Count 5.11 X10^6/uL (4.5-5.9); Red Cell Distribution Width 14.3 % (11.6-14.8); White Blood Cell Count 11.4 X10^3/uL (4.5-11.0)
[2019-02-02 10:13] LABS: Prothrombin Time 11.7 SECONDS (10.1-12.7)
[2019-02-02 10:16] LABS: PTT Partial Thromboplastin Tim 40 SECONDS (26.4-36.2)
[2019-02-02 10:19] LABS: Alanine Aminotransferase 11 IU/L (21-72); Albumin 4.4 g/dL (3.5-5.0); Albumin Globulin Ratio 1.3 (1.0-2.8); Alkaline Phosphatase 86 U/L (38-126); Aspartate Aminotransferase 17 IU/L (17-59); Bilirubin Total 0.5 mg/dL (0.2-1.3); Blood Urea Nitrogen 15 mg/dL (9-20); Calcium 9.6 mg/dL (8.4-10.2); Carbon Dioxide 30 mmol/L (22-32); Chloride 100 mmol/L (98-107); Creatine Kinase 38 U/L (55-170); Estimated Glomerular Filt Rate > 60.0 mL/min (>60); Globulin 3.4 g/dL (1.7-4.1); Glucose 133 mg/dL (70-100); HEMOLYSIS < 15 (0-50); Lipase 207 U/L (23-300); Potassium 3.9 mmol/L (3.4-5.1); Sodium 142 mmol/L (137-145); Total Protein 7.8 g/dL (6.3-8.2)
--- NOTE | 2019-02-02 10:19 | ED_ITS ---
HPI - Chest Pain General Chief Complaint: Chest Pain Stated Complaint: Chest pain Time Seen by Provider: 02/02/19 09:51 Source: patient and family (mother) Mode of arrival: EMS Limitations: no limitations History of Present Illness HPI narrative: 58-year-old male comes in with complaint of shortness of breath thumb that is been going on for couple days. Patient also complains of left- sided chest pain he states it has been present constantly for the last 3 days but sort intermittent. He states it is worse with inspiration, cough. Patient states that he has not had any fevers or chills he is aware of. He has had yellow productive sputum, he states that he normally has some but it seems a little bit thicker. Patient denies any vomiting but has felt slightly nauseated at times. He has had some loose stools 2 days normal bowel movements since with no a issues with urination. He denies any swelling in his lower extremities. He has chronic COPD, he is normally on 2 L when sedentary and on 3-4 L when a mbulating. He is on albuterol as well as steroid inhaler. Patient also has a home ventilator type machine. Patient still smokes. Related Data Home Medications Medication Instructions Recorded Confirmed Spiriva with HandiHaler 18 mcg INH DAILY 06/28/18 02/02/19 mometasone-formoterol [Dulera] 2 puff INHALATION BID 09/02/18 02/02/19 azithromycin 250 mg tablet 250 mg PO Q OTHER DAY 09/22/18 02/02/19 ondansetron 4 mg disintegrating 4 mg PO BID-TID PRN 12/03/18 02/02/19 tablet acetaminophen 1 dose PO PRN PRN 12/29/18 02/02/19 cetirizine [All Day Allergy 10 mg PO QPM 12/29/18 02/02/19 (cetirizine)] ibuprofen 1 dose PO PRN PRN 12/29/18 02/02/19 magnesium hydroxide 1 dose PO PRN PRN 12/29/18 02/02/19 montelukast 10 mg PO QPM 12/29/18 02/02/19 nystatin 1 dose PO DIRECTED 12/29/18 02/02/19 food supplement, lactose-reduced See Rx Instructions .ROUTE 01/25/19 02/02/19 oral liquid .COMPLEX each Previous Rx's Medication Instructions Recorded clonazepam 0.5 mg tablet 0.5 mg PO BIDP PRN #30 tab 07/26/18 benzonatate 100 mg capsule 100 mg PO TID #90 cap 09/30/18 simvastatin 20 mg tablet 20 mg PO BEDTIME #90 tab 09/30/18 albuterol sulfate HFA 90 1 - 2 puff INHALATION Q4HP PRN #18 11/25/18 mcg/actuation aerosol inhaler gram lisinopril 10 mg tablet 10 mg PO DAILY #30 tab 01/25/19 Allergies Allergy/AdvReac Type Severity Reaction Status Date / Time beclomethasone [From QVAR] Allergy Severe tachycardia Verified 02/02/19 09:39 budesonide [From SYMBICORT] Allergy Severe tachycardia Verified 02/02/19 09:39 cinnamon [CINNAMON] Allergy Severe RESP Verified 02/02/19 09:39 PROBLEMS AND SWELLING formoterol [From SYMBICORT] Allergy Severe tachycardia Verified 02/02/19 09:39 codeine [CODEINE] Allergy Intermediate violent Verified 02/02/19 09:39 Sulfa (Sulfonamide Allergy Intermediate anaphylacti Verified 02/02/19 09:39 Antibiotics) c [SULFA (SULFONAMIDE ANTIBIOTICS)] doxycycline [DOXYCYCLINE] Allergy Mild N/V Verified 02/02/19 09:39 trimethoprim [TRIMETHOPRIM] Allergy Unknown Verified 02/02/19 09:39 fluticasone [FLUTICASONE] AdvReac Intermediate FEELS Verified 02/02/19 09:39 LIKE FIRE IN THE LUNGS prednisone [PREDNISONE] AdvReac Mild SHAKY AND Verified 02/02/19 09:39 WEAK ON HIGHER DOSES Review of Systems Review of Systems ROS Unobtainable: All systems reviewed & are unremarkable except as noted in HPI and below Constitutional Denies chills, Denies fever(s) and Denies lethargy Cardiovascular Reports chest pain (continous x 3 days. ), Denies diaphoresis, Denies syncope, Denies irregular heart rhythm, Denies lightheadedness, Denies palpitations, Reports dyspnea, Reports dyspnea on exertion and Denies orthopnea Respiratory Denies change in phlegm color, Reports chest congestion, Reports cough, Reports excessive phlegm production (yellow), Reports pain on inspiration, Reports pain with cough, Reports dyspnea and Reports dyspnea on exertion Gastrointestinal Gastrointestinal: Denies abdominal pain, Denies melena, Denies hematochezia, Den ies change in bowel habits, Reports diarrhea (2 days ago, resolved.), Denies nausea and Denies vomiting Genitourinary Denies hematuria, Denies dysuria, Denies flank pain, Denies urinary frequency, Denies urinary incontinence and Denies urinary urgency Neurologic Denies syncope Endocrine Denies palpitations PFSH Medical History Anxiety (Chronic ~2015) Asthma (Chronic Unknown) COPD (chronic obstructive pulmonary disease) (Chronic ~2013) Hyperlipidemia (Chronic ~2015) Insomnia (Chronic ~2015) Hematuria (Resolved ~2014) TIA (transient ischemic attack) (Resolved 05/2014) Surgical History No pertinent past surgical history (Acute) Family History Mother Age: 80 Hypertension Sister Age: 63 Cancer Social History household members: family Smoking Status: Current every day smoker alcohol intake: never substance use type: does not use Family History Mother Age: 80 Hypertension Sister Age: 63 Cancer Social History household members: family Smoking Status: Current every day smoker alcohol intake: never substance use type: does not use Exam Narrative Exam Narrative: GENERAL: Alert and oriented x three, male appearing older than his stated age in mild distress. HEENT: Head normocephalic, atraumatic, EOMI, pupils reactive, face symmetric, moist mucous membranes NECK: Supple, full range of motion CARDIOVASCULAR: Regular rate and rhythm without murmurs, rubs or gallops. RESPIRATORY: Breath sounds equal bilaterally, no wheezes rales or rhonchi on exam after a breathing treatment. Patient has slight tachypnea. Nasal cannula is in place. ABDOMEN: Soft, nontender. Normoactive bowel sounds all 4 quadrants. No guard ing or rebound, rigidity, no mass : No CVA tenderness EXTREMITIES: Normal range of motion, no clubbing, no edema bilateral extremities. Neurovascularly intact NEUROLOGICAL: Cranial nerves II through XII grossly intact. Moving all extremities SKIN: Warm, dry, no petechiae, no rashes or lesions. Initial Vital Signs Initial Vital Signs: Vital Signs Temperature 98.1 F 02/02/19 09:37 Pulse Rate 98 H 02/02/19 09:37 Respiratory Rate 28 H 02/02/19 09:37 Blood Pressure 127/88 02/02/19 09:37 Pulse Oximetry 98 02/02/19 09:37 Course Orders Ordered: ED Orders 02/02/19 13:21 CT angio chest PE protocol Stat Discontinued Medications Acetaminophen (Tylenol) 650 mg PO NOW ONE Stop: 02/02/19 10:17 Last Admin: 02/02/19 10:50 Dose: 650 mg Albuterol/Ipratropium (Duoneb) 3 ml INH NOW ONE Stop: 02/02/19 09:48 Last Admin: 02/02/19 09:52 Dose: 3 ml Albuterol/Ipratropium (Duoneb) 3 ml INH NOW ONE Stop: 02/02/19 15:25 Last Admin: 02/02/19 15:35 Dose: 3 ml Aspirin (Aspirin Chew) 324 mg PO NOW ONE Stop: 02/02/19 09:41 Last Admin: 02/02/19 09:41 Dose: 324 mg Methylprednisolone (Solu-Medrol 125 Mg Vial) 125 mg IV NOW ONE Stop: 02/02/19 10:17 Last Admin: 02/02/19 10:50 Dose: 125 mg Vital Signs - 8 hr 02/02/19 11:30 02/02/19 12:00 02/02/19 12:30 Pulse Rate 75 70 74 Respiratory Rate 19 18 17 Blood Pressure [Right Arm] 113/60 119/62 114/65 Pulse Oximetry 97 96 98 02/02/19 13:00 02/02/19 15:08 02/02/19 15:36 Pulse Rate 70 92 H 81 Respiratory Rate 18 18 19 Blood Pressure [Right Arm] 115/67 123/68 Pulse Oximetry 98 99 97 02/02/19 16:00 02/02/19 16:30 02/02/19 16:49 Pulse Rate 87 90 83 Respiratory Rate 19 25 H 17 Blood Pressure [Right Arm] 119/65 138/65 132/70 Pulse Oximetry 98 97 98 MDM - Chest Pain Lab Data Attestation: I reviewed the patient's lab results. Result diagrams: 02/02/19 09:52 02/02/19 09:52 Lab Results 02/02/19 02/02/19 02/02/19 Range/Units 09:15 09:15 09:52 WBC 11.4 H (4.5-11.0) X10^3/uL RBC 5.11 (4.5-5.9) X10^6/uL Hgb 14.2 (13.5-17.5) g/dL Hct 42.6 (41-53) % MCV 83.3 (80-100) fL MCH 27.9 (26-34) PG MCHC 33.4 (30-36) % RDW 14.3 (11.6-14.8) % Plt Count 203 (150-400) X10^3/uL Neut % (Auto) 68.9 (50-75) % Lymph % (Auto) 21.7 L (25-40) % Frederick % (Auto) 6.1 (3-14) % Eos % (Auto) 3.0 (2-4) % Baso % (Auto) 0.3 (0-2) % Neut # (Auto) 7900 H (5225-4315) /uL Lymph # (Auto) 2500 (6304-0308) /uL Frederick # (Auto) 700 (0-900) /uL Eos # (Auto) 300 (0-450) /uL Baso # (Auto) 0 (0-100) /uL PT (10.1-12.7) SECONDS INR (0.9-1.3) APTT (26.4-36.2) SECONDS Sodium (137-145) mmol/L Potassium (3.4-5.1) mmol/L Chloride (98-107) mmol/L Carbon Dioxide (22-32) mmol/L BUN (9-20) mg/dL Creatinine (0.66-1.25) mg/dL Estimated GFR (>60) mL/min BUN/Creatinine Ratio (6-22) Glucose (70-100) mg/dL Calcium (8.4-10.2) mg/dL Phosphorus 4.1 (2.5-4.5) mg/dL Magnesium 1.9 (1.6-2.3) mg/dL Total Bilirubin (0.2-1.3) mg/dL AST (17-59) IU/L ALT (21-72) IU/L Alkaline Phosphatase (38-126) U/L Total Creatine Kinase (55-170) U/L CK-MB (CK-2) CK-MB (CK-2) Rel Index Troponin I (0.01-0.034) ng/mL Total Protein (6.3-8.2) g/dL Albumin (3.5-5.0) g/dL Globulin (1.7-4.1) g/dL Albumin/Globulin Ratio (1.0-2.8) Lipase (23-300) U/L TSH 1.45 (0.47-4.68) uIU/mL 02/02/19 02/02/19 Range/Units 09:52 09:52 WBC (4.5-11.0) X10^3/uL RBC (4.5-5.9) X10^6/uL Hgb (13.5-17.5) g/dL Hct (41-53) % MCV (80-100) fL MCH (26-34) PG MCHC (30-36) % RDW (11.6-14.8) % Plt Count (150-400) X10^3/uL Neut % (Auto) (50-75) % Lymph % (Auto) (25-40) % Frederick % (Auto) (3-14) % Eos % (Auto) (2-4) % Baso % (Auto) (0-2) % Neut # (Auto) (5026-3362) /uL Lymph # (Auto) (2881-9755) /uL Frederick # (Auto) (0-900) /uL Eos # (Auto) (0-450) /uL Baso # (Auto) (0-100) /uL PT 11.7 (10.1-12.7) SECONDS INR 1.0 (0.9-1.3) APTT 40 H D (26.4-36.2) SECONDS Sodium 142 (137-145) mmol/L Potassium 3.9 (3.4-5.1) mmol/L Chloride 100 (98-107) mmol/L Carbon Dioxide 30 (22-32) mmol/L BUN 15 (9-20) mg/dL Creatinine 1.00 (0.66-1.25) mg/dL Estimated GFR > 60.0 (>60) mL/min BUN/Creatinine Ratio 15.0 (6-22) Glucose 133 H (70-100) mg/dL Calcium 9.6 (8.4-10.2) mg/dL Phosphorus (2.5-4.5) mg/dL Magnesium (1.6-2.3) mg/dL Total Bilirubin 0.5 (0.2-1.3) mg/dL AST 17 (17-59) IU/L ALT 11 L (21-72) IU/L Alkaline Phosphatase 86 (38-126) U/L Total Creatine Kinase 38 L (55-170) U/L CK-MB (CK-2) TNP CK-MB (CK-2) Rel Index TNP Troponin I < 0.012 (0.01-0.034) ng/mL Total Protein 7.8 (6.3-8.2) g/dL Albumin 4.4 (3.5-5.0) g/dL Globulin 3.4 (1.7-4.1) g/dL Albumin/Globulin Ratio 1.3 (1.0-2.8) Lipase 207 (23-300) U/L TSH (0.47-4.68) uIU/mL Imaging Data Chest x-ray: Radiologist's impression: [address] [address] XRay Report Signed Patient: Mak Rose [facility]#: [id number] : 1960Acct:[id number] Age/Sex: 58 / MDate of Service: 02/02/19 Loc: ED Accession Number: [id number] Procedure: XR chest 1V Ordering Provider: Vaishnavi Hinson D.O. PROCEDURE: XR CHEST 1V INDICATIONS: chest pain TECHNIQUE: One view of the chest was acquired. COMPARISON: [facility], CR, XR CHEST 1V, 12/29/2018, 10:01. FINDINGS: Surgical changes and devices: None. Lungs and pleura: Lungs are clear. No pleural effusions or pneumothorax. Mediastinum: Mediastinal contours appear normal. Heart size is normal. Bones and chest wall: No suspicious bony lesions. Overlying soft tissues appear unremarkable. IMPRESSION: No acute cardiopulmonary pathology. Dictated by: Giuseppe Fonseca M.D. on 02/02/2019 at 10:07 Approved by: Giuseppe Fonseca M.D. on 02/02/2019 at 10:09 CTA chest: Radiologist's impression: [facility] DATE TYPE STATUS AUTHOR Marlon 02/02/19 13:21 Pernell Adams 02/02/19 09:32 Giuseppe Fonseca 12/29/18 09:57 Peter Stover 11/30/18 12:53 Vimal,Lianet 09/23/18 11:00 Ollie Gómez 06/28/18 16:51 NateGustavo 06/10/18 03:00 Vimal,Lianet 05/07/18 00:00 RandySaurav 03/10/18 03:42 Rosendo Mac 02/06/18 23:30 Lianet Celis 02/06/18 14:53 TramaineDaphne 01/27/18 10:01 Rosendo Mac 12/26/17 01:09 Lianet Celis 11/29/17 15:31 Pernell Adams 05/30/14 08:36 Mak Rose 58, M1960 REG ER, ED.LOC - Main ED: R04 77.1kg Chest Pain Search Chart No Data to Display tachycardia tachycardia RESP PROBLEMS AND SWELLING tachycardia violent anaphylactic N/V FEELS LIKE FIRE IN THE LUNGS SHAKY AND WEAK ON HIGHER DOSES ONSET 07/14/16 Today 13:00 Mak Rose M 1960 [place] [address] CT Scan Report Signed Patient: Mak Rose [facility]#: [id number] : 1960Acct:[id number] Age/Sex: 58 / MDate of Service: 02/02/19 Loc: ED Accession Number: [id number] Procedure: CT angio chest PE protocol Ordering Provider: Vaishnavi Hinson D.O. PROCEDURE: CT ANGIO CHEST PE PROTOCOL INDICATIONS: left chest pain, new sob TECHNIQUE: After the administration of intravenous contrast, 2 mm thick sections acquired from the pulmonary apices to the posterior costophrenic angles. 3-dimensional maximum intensity projection (MIP) coronal and sagittal reformats were then acquired through the thorax. For radiation dose reduction, the following was used: automated exposure control, adjustment of mA and/or kV according to patient size. COMPARISON: [facility], CT, THORAX WITHOUT CONTRAST, 07/17/2017, 9:43. [facility], CT, PE STUDY (CTA CHEST), 08/04/2016, 22:26. [facility], [place], PET NECK TO MID THIGH, 07/29/2017, 13:36. [facility], CT, CT CHEST WO CON, 01/27/2018, 9:58. [facility], CT, CT CHEST WO CON, 05/07/2018, 15:54. FINDINGS: Image quality: Excellent. Pulmonary arteries: Pulmonary arteries are normal in size, and demonstrate no intraluminal filling defects to suggest central pulmonary embolism. Lungs and pleura: Severe centrilobular emphysematous changes are redemonstrate d. There are new small areas of consolidation involving the medial aspect of the left upper lobe anteriorly as well as the medial right upper lobe. There is a small subpleural bandlike opacity in the anterior right middle lobe likely representing atelectasis or small focus of consolidation. The previously identified irregular opacity in the right upper lobe anteriorly with mixed solid and ground glass components and spiculated margins appears progressively increased in size over time compared to the prior studies dating back to 07/17/17. Within the left upper lobe, there is a small nodule on series 5 image 71 measuring up to approximately 0.8 cm with indistinct ground glass margins which appears new compared to the 08/01/16 study. Indistinct nodules are also demonstrated anteriorly in the left lingula, increased from the prior study. No pleural effusions or pneumothorax. Central and peripheral airways are patent. Mediastinum: Heart size is normal, without pericardial effusion. No mediastinal or hilar adenopathy. Thoracic aorta is normal in caliber and enhancement. Esophagus is normal in caliber, without hiatal hernia. Bones and chest wall: No suspicious bony lesions. Ribs and thoracic spine appear intact throughout. Thyroid gland demonstrates no discrete nodules. No axillary or supraclavicular adenopathy. Abdomen: Visualized upper abdominal solid organs appear normal in the early arterial phase of enhancement. IMPRESSION: 1. No evidence of pulmonary embolism. 2. New small medial areas of consolidation in the upper lobes most likely representing pneumonia. 3. Bilateral irregular pulmonary nodules with groundglass components redemonstrated. 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 The differential includes an atypical infection. Consider histologic diagnosis of the right upper lobe nodule if clinically indicated. 4. Severe centrilobular emphysematous changes redemonstrated. Dictated by: Pernell Adams M.D. on 02/02/2019 at 13:45 Approved by: Pernell Adams M.D. on 02/02/2019 at 14:00 ECG Data Attestation: I personally reviewed and interpreted this ECG as follows: Interpretation: Sinus rhythm rate of 92 P are 156 QRS of 105 and QTC of [address] elevation, nonspecific changes. Patient has prior EKG from 12/29/2018 which appears similar. Patient had a and episode of what looks like V-tach for 19 beats, almost 6 seconds. Patient has not had any additional episodes. MDM Narrative Medical decision making narrative: Patient comes in with complaint of chest pain that has been present constantly but waxes and wanes in intensity. Patient has been feeling a little bit more short of breath. He does have increased chest pain with inspiration. He has a slightly elevated white count, slightly elevated PTT. CMP does not show any abnormalities except for glucose of 133, ALT and total CK are low. Troponin is negative. lipase is normal. EKG does not show acute changes, CXR does not show new changes. Patient did receive breathing treatments here which helped a little bit with his breathing but it is not totally normal. While he was in the department patient had episode which l ooks like V-tach, about 19 beats or almost 6 seconds. Patient did not appreciate any changes. He did not have any altered mental status or syncope. Discussed with Cardiology, Dr. Walters. At this time he recommends observation he does not recommend starting any anti arrhythmic but continuing to monitor on telemetry. He does recommend echo and stress test and serial cardiac enzymes. CTA was ordered and shows no PE, likely upper lobe pneumonia with bilateral irregular nodules that are progressively increased in size over time and suspicious for slow growing cancer. Results discussed with patient, he was aware of the nodules and was supposed to have CT imaging in the next month to recheck nodules specifically. We had a long discussion regarding goals of care, initially patient was reticient to come in for observation but felt that it would be beneficial. He did bring in his home medications including his home azithromycin which he took. Discussed with Dr. Green, we are not able to get ECHO in a timely manner. Discussed with patient, he is willing to transfer to [facility]. Spoke with Dr. Matthews who accepts for transfer. Discharge Plan Departure Patient Disposition: [facility] Clinical Impression: Atypical chest pain, Arrhythmia, Pneumonia Discharge Date/Time: 02/02/19 17:10 Interventions: ED Discharge Assessment Last Done: 02/02/19 17:10 Prescriptions: No Action clonazepam 0.5 mg tablet 0.5 mg PO BIDP PRN (Reason: anxiety) Qty: 30 RF: 0 azithromycin 250 mg tablet 250 mg PO Q OTHER DAY RF: 0 benzonatate 100 mg capsule 100 mg PO TID Qty: 90 RF: 1 simvastatin 20 mg tablet 20 mg PO BEDTIME Qty: 90 RF: 0 Ventolin HFA 90 mcg/actuation HFA aerosol inhaler 1 - 2 puff Inhalation Q4HP PRN (Reason: Shortness Of Breath Or Wheezing) Qty: 18 RF: 3 lisinopril 10 mg tablet 10 mg PO DAILY Qty: 30 RF: 0 ondansetron 4 mg tablet,disintegrating 4 mg PO BID-TID PRN (Reason: Nausea) RF: 0 Ensure liquid See Patient Comments .ROUTE .COMPLEX RF: 0 Dulera 200-5 mcg/actuation Hfa Aerosol Inhaler 2 puff INHALATION BID RF: 0 montelukast 10 mg tablet 10 mg PO QPM RF: 0 nystatin 100,000 unit/mL suspension 1 dose PO DIRECTED RF: 0 acetaminophen 325 mg Tablet 1 dose PO PRN PRN (Reason: pain) RF: 0 magnesium hydroxide 400 mg/5 mL Suspension 1 dose PO PRN PRN (Reason: Indigestion) RF: 0 ibuprofen 200 mg Tablet 1 dose PO PRN PRN (Reason: pain) RF: 0 All Day Allergy (cetirizine) 10 mg capsule 10 mg PO QPM RF: 0 Spiriva with HandiHaler 18 MCG capsule, w/inhalation device 18 mcg INH DAILY RF: 0 Referrals: Naye Reese DO [Primary Care Provider] -
[2019-02-02 10:29] LABS: Troponin I < 0.012 ng/mL (0.01-0.034)
[2019-02-02] MEDS: methylPREDNISolone 125 MG/2 ML VIAL IV (10:50)
[2019-02-02] MEDS: ACETAMINOPHEN 325 MG TABLET 650 MG PO (10:50)
[2019-02-02 11:46] LABS: Magnesium 1.9 mg/dL (1.6-2.3); Phosphorous 4.1 mg/dL (2.5-4.5)
[2019-02-02 12:55] LABS: Thyroid Stimulating Hormone 1.45 uIU/mL (0.47-4.68)
--- NOTE | 2019-02-02 13:21 | DI.CT.S_ITS ---
PROCEDURE: CT ANGIO CHEST PE PROTOCOL INDICATIONS: left chest pain, new sob TECHNIQUE: After the administration of intravenous contrast, 2 mm thick sections acquired from the pulmonary apices to the posterior costophrenic angles. 3-dimensional maximum intensity projection (MIP) coronal and sagittal reformats were then acquired through the thorax. For radiation dose reduction, the following was used: automated exposure control, adjustment of mA and/or kV according to patient size. COMPARISON: [facility], CT, THORAX WITHOUT CONTRAST, 07/17/2017, 9:43. [facility], CT, PE STUDY (CTA CHEST), 08/04/2016, 22:26. [facility], [place], PET NECK TO MID THIGH, 07/29/2017, 13:36. [facility], CT, CT CHEST WO CON, 01/27/2018, 9:58. [facility], CT, CT CHEST WO CON, 05/07/2018, 15:54. FINDINGS: Image quality: Excellent. Pulmonary arteries: Pulmonary arteries are normal in size, and demonstrate no intraluminal filling defects to suggest central pulmonary embolism. Lungs and pleura: Severe centrilobular emphysematous changes are redemonstrated. There are new small areas of consolidation involving the medial aspect of the left upper lobe anteriorly as well as the medial right upper lobe. There is a small subpleural bandlike opacity in the anterior right middle lobe likely representing atelectasis or small focus of consolidation. The previously identified irregular opacity in the right upper lobe anteriorly with mixed solid and ground glass components and spiculated margins appears progressively increased in size over time compared to the prior studies dating back to 07/17/17. Within the left upper lobe, there is a small nodule on series 5 image 71 measuring up to approximately 0.8 cm with indistinct ground glass margins which appears new compared to the 08/01/16 study. Indistinct nodules are also demonstrated anteriorly in the left lingula, increased from the prior study. No pleural effusions or pneumothorax. Central and peripheral airways are patent. Mediastinum: Heart size is normal, without pericardial effusion. No mediastinal or hilar adenopathy. Thoracic aorta is normal in caliber and enhancement. Esophagus is normal in caliber, without hiatal hernia. Bones and chest wall: No suspicious bony lesions. Ribs and thoracic spine appear intact throughout. Thyroid gland demonstrates no discrete nodules. No axillary or supraclavicular adenopathy. Abdomen: Visualized upper abdominal solid organs appear normal in the early arterial phase of enhancement. IMPRESSION: 1. No evidence of pulmonary embolism. 2. New small medial areas of consolidation in the upper lobes most likely representing pneumonia. 3. Bilateral irregular pulmonary nodules with groundglass components redemonstrated. 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 The differential includes an atypical infection. Consider histologic diagnosis of the right upper lobe nodule if clinically indicated. 4. Severe centrilobular emphysematous changes redemonstrated. Dictated by: Pernell Adams M.D. on 02/02/2019 at 13:45 Approved by: Pernell Adams M.D. on 02/02/2019 at 14:00
== END 2019-02-02 17:10 | disposition short-term general hospital (02) ==
PROVIDERS: Emergency Provider Emergency Medicine; PCP Family Medicine
DX: R07.89 Other chest pain (principal); R06.02 Shortness of breath
CPT/HCPCS: 36591; 71045; 71275; 80053; 82550; 83690; 83735; 84100; 84443; 84484; 85025; 85610; 85730; 93005; 94640; 96374; 99285; J2930; Q9967

== ENCOUNTER → 2019-03-17 13:33 | Outpatient (CLI) | payer MEDICARE, MEDICAID, SELFPAY ==
--- NOTE | 2019-04-11 10:11 | P.HOLT.S_ITS ---
Resource Management Specialist Report Referral & Results Date Patient Seen: 03/17/19 Requesting provider: Naye Reese Indication: Dizziness Duration of monitoring (days): 7 Diary information: There were 0 patient diary entries but 5 triggered events. The triggered events were associated with sinus rhythm only Data: Minimum heart rate identified is 56 beats per minute at 08:25 on 03/23/2019 Maximum heart rate was 125 beats per minute at 21:02 on 03/22/2019 Less 1% of identified beats or either ventricular supraventricular ectopic in origin Impression: Unremarkable equipment monitor phototypesetting. Occasional PVCs and PACs identified No other more serious dysrhythmia identified
== END ==
PROVIDERS: PCP Family Medicine; Visit Provider Family Medicine
DX: R42 Dizziness and giddiness (principal); I47.2 Ventricular tachycardia; I10 Essential (primary) hypertension
CPT/HCPCS: 0296T; 0298T

== ENCOUNTER 2019-04-15 14:06 | Emergency (ER) | payer MEDICARE, MEDICAID, SELFPAY ==
[2019-04-15] VITALS (11 sets, daily range): BP systolic 90–128; BP diastolic 60–75; PULSE 69–93; RESP 11–22; TEMP 37.2; O2SAT 95–99
--- NOTE | 2019-04-15 14:25 | DI.RAD.S_ITS ---
PROCEDURE: XR CHEST 1V INDICATIONS: chest pain TECHNIQUE: One view of the chest was acquired. COMPARISON: [facility], CR, XR CHEST 1V, 02/02/2019, 9:56. FINDINGS: Surgical changes and devices: None. Lungs and pleura: Emphysematous change. Lungs are clear. No pleural effusions or pneumothorax. Mediastinum: Mediastinal contours appear normal. Heart size is normal. Bones and chest wall: No suspicious bony lesions. Overlying soft tissues appear unremarkable. IMPRESSION: COPD. No evidence acute pulmonary process. Dictated by: Bay Nguyen M.D. on 04/15/2019 at 14:59 Approved by: Bay Nguyen M.D. on 04/15/2019 at 14:59
--- NOTE | 2019-04-15 14:41 | ED_ITS ---
HPI - Chest Pain General Chief Complaint: Chest Pain Stated Complaint: central/left chest & back pressure/pain today Time Seen by Provider: 04/15/19 14:25 Source: patient Mode of arrival: Wheelchair History of Present Illness HPI narrative: Patient is a 58-year-old male with history of COPD on chronic oxygen presenting with left-sided chest pain started about 1 hour ago. It feels like it is a plane going straight through to his back. Nothing makes it better or worse. He denies any worsening shortness of breath. He says it is easing up but is still present. He apparently had a run of V-tach in January when he was in the emergency department, he was sent to [facility] where he was observed and then had a Xeropatch, which he says he turned in. He denies any palpitations. MD complaint: chest pain Related Data Home Medications Medication Instructions Recorded Confirmed Spiriva with HandiHaler 18 mcg INH DAILY 06/28/18 04/15/19 mometasone-formoterol [Dulera] 2 puff INHALATION BID 09/02/18 04/15/19 azithromycin 250 mg tablet 250 mg PO Q OTHER DAY 09/22/18 03/29/19 ondansetron 4 mg disintegrating 4 mg PO BID-TID PRN 12/03/18 03/29/19 tablet acetaminophen 1 dose PO PRN PRN 12/29/18 03/29/19 cetirizine [All Day Allergy 10 mg PO QPM 12/29/18 03/29/19 (cetirizine)] ibuprofen 1 dose PO PRN PRN 12/29/18 03/29/19 magnesium hydroxide 1 dose PO PRN PRN 12/29/18 03/29/19 montelukast 10 mg PO QPM 12/29/18 04/15/19 food supplemt, lactose-reduced See Rx Instructions .ROUTE 01/25/19 03/29/19 .COMPLEX each lisinopril 10 mg PO DAILY 04/15/19 04/15/19 Previous Rx's Medication Instructions Recorded albuterol sulfate 90 mcg/actuation 1 - 2 puff INHALATION Q4HP PRN #18 11/25/18 aerosol inhaler gram simvastatin 20 mg tablet 20 mg PO BEDTIME #90 tab 02/23/19 clonazepam 0.5 mg tablet 0.5 mg PO BIDP PRN #30 tab 02/24/19 benzonatate 100 mg capsule 100 mg PO TID #90 cap 03/01/19 nystatin 100,000 unit/mL oral 5 ml PO QID #200 ml 03/29/19 suspension Allergies Allergy/AdvReac Type Severity Reaction Status Date / Time beclomethasone [From QVAR] Allergy Severe tachycardia Verified 04/15/19 14:22 budesonide [From SYMBICORT] Allergy Severe tachycardia Verified 04/15/19 14:22 cinnamon [CINNAMON] Allergy Severe RESP Verified 04/15/19 14:22 PROBLEMS AND SWELLING formoterol [From SYMBICORT] Allergy Severe tachycardia Verified 04/15/19 14:22 codeine [CODEINE] Allergy Intermediate violent Verified 04/15/19 14:22 Sulfa (Sulfonamide Allergy Intermediate anaphylacti Verified 04/15/19 14:22 Antibiotics) c [SULFA (SULFONAMIDE ANTIBIOTICS)] doxycycline [DOXYCYCLINE] Allergy Mild N/V Verified 04/15/19 14:22 trimethoprim [TRIMETHOPRIM] Allergy Unknown Patient Verified 04/15/19 14:22 can't remember fluticasone [FLUTICASONE] AdvReac Intermediate FEELS Verified 04/15/19 14:22 LIKE FIRE IN THE LUNGS prednisone [PREDNISONE] AdvReac Mild SHAKY AND Verified 04/15/19 14:22 WEAK ON HIGHER DOSES Review of Systems Review of Systems ROS Unobtainable: All systems reviewed & are unremarkable except as noted in HPI and below Constitutional Constitutional: Denies chills, Denies fever(s), Denies lethargy and Denies weakness Eyes Eyes: Denies change in vision, Denies eye discharge, Denies irritation and Denies loss of vision ENT Ears, Nose, Mouth, and Throat: Denies change in voice, Denies neck pain and Denies sore throat Cardiovascular Cardiovascular: Reports chest pain Gastrointestinal Gastrointestinal: Denies abdominal pain, Denies change in bowel habits, Denies diarrhea, Denies nausea and Denies vomiting Genitourinary Genitourinary: Denies hematuria, Denies flank pain, Denies urinary incontinence and Denies urinary urgency Musculoskeletal Musculoskeletal: Denies neck pain Integumentary/Breasts Skin/Breast: Denies pruritus, Denies erythema, Denies rash and Denies wounds Neurologic Neurologic: Denies loss of vision and Denies weakness [facility] Medical History Anxiety (Chronic ~2015) Asthma (Chronic Unknown) COPD (chronic obstructive pulmonary disease) (Chronic ~2013) Hematuria (Resolved ~2014) Hyperlipidemia (Chronic ~2015) Insomnia (Chronic ~2015) TIA (transient ischemic attack) (Resolved 05/2014) Surgical History No pertinent past surgical history (Acute) Family History Mother Age: 80 Hypertension Sister Age: 63 Cancer Social History household members: family Smoking Status: Current some day smoker Tobacco: How many years used: 47 quit status: considering quitting (I have been working on it.) second hand exposure: No alcohol intake: former (I quit at least 10 years ago (as of 02/09/19).) substance use type: does not use Family History Mother Age: 80 Hypertension Sister Age: 63 Cancer Social History household members: family Smoking Status: Current some day smoker Tobacco: How many years used: 47 quit status: considering quitting (I have been working on it.) second hand exposure: No alcohol intake: former (I quit at least 10 years ago (as of 02/09/19).) substance use type: does not use Exam Initial Vital Signs Initial Vital Signs: Vital Signs Temperature 98.9 F 04/15/19 14:12 Pulse Rate 93 H 04/15/19 14:12 Respiratory Rate 22 04/15/19 14:12 Blood Pressure 106/66 04/15/19 14:12 Pulse Oximetry 97 04/15/19 14:12 GENERAL: Chronically ill alert male HEENT: Head atraumatic,EOMI, pupils reactive, face symmetric, moist mucous membranes CARDIOVASCULAR: Regular rate and rhythm without murmurs, rubs or gallops. RESPIRATORY: Decreased breath sounds bilaterally ABDOMEN: Soft, nontender. Normoactive bowel sounds all 4 quadrants. No guarding or rebound. EXTREMITIES: Normal range of motion, no clubbing or edema. Neurovascularly intact NEUROLOGICAL: Alert and oriented x4.Normal gait and speech. Cranial nerves II through XII grossly intact. SKIN: Warm, dry, no laceration, no petechiae, no rashes or lesions. Scores HEART Score Heart Score history: Moderately Suspicious Heart Score EKG: Normal Heart Score Age: 45-64 years old Heart Score risk factors: 1-2 risk factors Heart Score troponin: < or = to normal limit Heart Score Total: 3 Course Orders Ordered: Discontinued Medications Albuterol/Ipratropium (Duoneb) 3 ml INH NOW ONE Stop: 04/15/19 14:41 Last Admin: 04/15/19 14:45 Dose: 3 ml Documented by: BFOX Aspirin (Aspirin Chew) 324 mg PO NOW ONE Stop: 04/15/19 14:24 Last Admin: 04/15/19 14:48 Dose: 324 mg Documented by: STEPHANIE Nitroglycerin (Nitrostat) 0.4 mg SL NOW ONE Stop: 04/15/19 14:41 Last Admin: 04/15/19 14:48 Dose: 0.4 mg Documented by: STEPHANIE Vital Signs Vital signs: Vital Signs - 8 hr 04/15/19 14:12 04/15/19 14:48 04/15/19 14:50 Temperature 98.9 F Pulse Rate 93 H 87 Respiratory Rate 22 Blood Pressure 106/66 128/75 Blood Pressure [Left Arm] Pulse Oximetry 97 95 04/15/19 15:11 04/15/19 15:32 04/15/19 15:33 Temperature Pulse Rate 84 79 79 Respiratory Rate 18 20 20 Blood Pressure Blood Pressure [Left Arm] 115/69 90/60 90/60 Pulse Oximetry 97 95 99 04/15/19 16:00 04/15/19 16:39 04/15/19 17:00 Temperature Pulse Rate 78 77 69 Respiratory Rate 11 L 16 17 Blood Pressure Blood Pressure [Left Arm] 96/70 109/63 99/63 Pulse Oximetry 97 98 99 04/15/19 18:00 04/15/19 18:56 Temperature Pulse Rate 72 70 Respiratory Rate 20 22 Blood Pressure 106/66 Blood Pressure [Left Arm] 96/69 Pulse Oximetry 98 99 MDM - Chest Pain Lab Data Attestation: I reviewed the patient's lab results. Result diagrams: 04/15/19 14:43 04/15/19 14:43 Labs: Lab Results 04/15/19 04/15/19 04/15/19 Range/Units 14:43 14:43 14:43 WBC 11.9 H (4.5-11.0) X10^3/uL RBC 5.16 (4.5-5.9) X10^6/uL Hgb 14.3 (13.5-17.5) g/dL Hct 43.4 (41-53) % MCV 84.2 (80-100) fL MCH 27.8 (26-34) PG MCHC 33.0 (30-36) % RDW 14.2 (11.6-14.8) % Plt Count 149 L (150-400) X10^3/uL Neut % (Auto) 66.3 (50-75) % Lymph % (Auto) 20.6 L (25-40) % [place] % (Auto) 5.6 (3-14) % Eos % (Auto) 6.8 H (2-4) % Baso % (Auto) 0.7 (0-2) % Neut # (Auto) 7900 H (2893-3386) /uL Lymph # (Auto) 2500 (9156-7662) /uL [place] # (Auto) 700 (0-900) /uL Eos # (Auto) 800 H (0-450) /uL Baso # (Auto) 100 (0-100) /uL PT 11.6 (10.1-12.7) SECONDS INR 1.0 (0.9-1.3) APTT 36 D (26.4-36.2) SECONDS Sodium 138 (137-145) mmol/L Potassium 4.1 (3.4-5.1) mmol/L Chloride 104 (98-107) mmol/L Carbon Dioxide 25 (22-32) mmol/L BUN 19 (9-20) mg/dL Creatinine 0.80 (0.66-1.25) mg/dL Estimated GFR > 60.0 (>60) mL/min BUN/Creatinine Ratio 23.8 H (6-22) Glucose 107 H (70-100) mg/dL Calcium 9.4 (8.4-10.2) mg/dL Total Bilirubin 0.4 (0.2-1.3) mg/dL AST 30 (17-59) IU/L ALT 18 L (21-72) IU/L Alkaline Phosphatase 79 (38-126) U/L Total Creatine Kinase 50 L (55-170) U/L CK-MB (CK-2) TNP CK-MB (CK-2) Rel Index TNP Troponin I < 0.012 (0.01-0.034) ng/mL B-Natriuretic Peptide (<100) Total Protein 7.5 (6.3-8.2) g/dL Albumin 4.2 (3.5-5.0) g/dL Globulin 3.3 (1.7-4.1) g/dL Albumin/Globulin Ratio 1.3 (1.0-2.8) Lipase 293 (23-300) U/L 04/15/19 04/15/19 Range/Units 14:43 17:43 WBC (4.5-11.0) X10^3/uL RBC (4.5-5.9) X10^6/uL Hgb (13.5-17.5) g/dL Hct (41-53) % MCV (80-100) fL MCH (26-34) PG MCHC (30-36) % RDW (11.6-14.8) % Plt Count (150-400) X10^3/uL Neut % (Auto) (50-75) % Lymph % (Auto) (25-40) % [place] % (Auto) (3-14) % Eos % (Auto) (2-4) % Baso % (Auto) (0-2) % Neut # (Auto) (5472-4008) /uL Lymph # (Auto) (0058-7493) /uL [place] # (Auto) (0-900) /uL Eos # (Auto) (0-450) /uL Baso # (Auto) (0-100) /uL PT (10.1-12.7) SECONDS INR (0.9-1.3) APTT (26.4-36.2) SECONDS Sodium (137-145) mmol/L Potassium (3.4-5.1) mmol/L Chloride (98-107) mmol/L Carbon Dioxide (22-32) mmol/L BUN (9-20) mg/dL Creatinine (0.66-1.25) mg/dL Estimated GFR (>60) mL/min BUN/Creatinine Ratio (6-22) Glucose (70-100) mg/dL Calcium (8.4-10.2) mg/dL Total Bilirubin (0.2-1.3) mg/dL AST (17-59) IU/L ALT (21-72) IU/L Alkaline Phosphatase (38-126) U/L Total Creatine Kinase (55-170) U/L CK-MB (CK-2) CK-MB (CK-2) Rel Index Troponin I < 0.012 (0.01-0.034) ng/mL B-Natriuretic Peptide < 100 (<100) Total Protein (6.3-8.2) g/dL Albumin (3.5-5.0) g/dL Globulin (1.7-4.1) g/dL Albumin/Globulin Ratio (1.0-2.8) Lipase (23-300) U/L Imaging Data Chest x-ray: Radiologist's impression: PROCEDURE: XR CHEST 1V INDICATIONS: chest pain TECHNIQUE: One view of the chest was acquired. COMPARISON: [facility], , XR CHEST 1V, 02/02/2019, 9:56. FINDINGS: Surgical changes and devices: None. Lungs and pleura: Emphysematous change. Lungs are clear. No pleural effusions or pneumothorax. Mediastinum: Mediastinal contours appear normal. Heart size is normal. Bones and chest wall: No suspicious bony lesions. Overlying soft tissues appear unremarkable. IMPRESSION: COPD. No evidence acute pulmonary process. Dictated by: Bay Nguyen M.D. on 04/15/2019 at 14:59 Approved by: Bay Nguyen M.D. on 04/15/2019 at 14:59 ECG Data Attestation: I personally reviewed and interpreted this ECG as follows: Prior ECG tracings: available for review Interpretation: Normal sinus rhythm rate 84 p.r. interval 161 QRS [address] depressions or T-wave inversions similar to previous EKG in January 2019 MDM Narrative Medical decision making narrative: Patient received DuoNeb started feeling little bit better and then pain came back. He was given nitroglycerin and has remained chest pain-free in the emergency department. He had repeat troponin also negative. Patient does not have known coronary artery disease. I strongly recommended if his pain comes back needs to return to the ED. I discussed all findings with the patient and spouse, Education has been performed regarding treatment plan, diagnosis, warning signs and symptoms and all concerns have been addressed. Verbally agree with and understood all of the above. Discharge Plan Departure Patient Disposition: Home Clinical Impression: Atypical chest pain Discharge Date/Time: 04/15/19 18:58 Instructions: DI for Atypical Chest Pain Activity Restrictions/Additional Instructions: *You have been diagnosed with atypical chest pain *What to do: You still may require stress test or further cardiac workup however please talk with her PCP about this. *Continue to take medications as directed *Follow up with your primary care provider in 2-3 days *Return to ER if you should have increasing chest pain shortness of breath, palpitation or any new, worsening or concerning symptoms Prescriptions: No Action azithromycin 250 mg tablet 250 mg PO Q OTHER DAY RF: 0 Ventolin HFA 90 mcg/actuation HFA aerosol inhaler 1 - 2 puff Inhalation Q4HP PRN (Reason: Shortness Of Breath Or Wheezing) Qty: 18 RF: 3 simvastatin 20 mg tablet 20 mg PO BEDTIME Qty: 90 RF: 0 clonazepam 0.5 mg tablet 0.5 mg PO BIDP PRN (Reason: anxiety) Qty: 30 RF: 0 benzonatate 100 mg capsule 100 mg PO TID Qty: 90 RF: 1 ondansetron 4 mg tablet,disintegrating 4 mg PO BID-TID PRN (Reason: Nausea) RF: 0 nystatin 100,000 unit/mL suspension 5 ml PO QID Qty: 200 RF: 0 Ensure liquid See Rx Instructions .ROUTE .COMPLEX RF: 0 Dulera 200-5 mcg/actuation Hfa Aerosol Inhaler 2 puff INHALATION BID RF: 0 montelukast 10 mg tablet 10 mg PO QPM RF: 0 acetaminophen 325 mg Tablet 1 dose PO PRN PRN (Reason: pain) RF: 0 magnesium hydroxide 400 mg/5 mL Suspension 1 dose PO PRN PRN (Reason: Indigestion) RF: 0 ibuprofen 200 mg Tablet 1 dose PO PRN PRN (Reason: pain) RF: 0 All Day Allergy (cetirizine) 10 mg capsule 10 mg PO QPM RF: 0 lisinopril 10 mg tablet 10 mg PO DAILY RF: 0 Spiriva with HandiHaler 18 MCG capsule, w/inhalation device 18 mcg INH DAILY RF: 0 Referrals: Mary Ann,Naye, DO [Primary Care Provider] -
[2019-04-15] MEDS: ALBUTEROL/IPRATROPIUM 3 ML AMPUL INH (14:45)
[2019-04-15] MEDS: NITROGLYCERIN 0.4 MG SL TAB SL (14:48)
[2019-04-15] MEDS: ASPIRIN 81 MG CHEW TAB 324 MG PO (14:48)
[2019-04-15 15:01] LABS: Add Manual Diff / Slide Review NO; Basophils Absolute Auto 100 /uL (0-100); Basophils Percent Auto 0.7 % (0-2); Eosinophils Absolute Auto 800 /uL (0-450); Eosinophils Percent Auto 6.8 % (2-4); Hematocrit 43.4 % (41-53); Hemoglobin 14.3 g/dL (13.5-17.5); Lymphocytes Absolute Auto 2500 /uL (1100-4500); Lymphocytes Percent Auto 20.6 % (25-40); Mean Corpuscular Hemoglobin 27.8 PG (26-34); Mean Corpuscular Volume 84.2 fL (80-100); Monocytes Absolute Auto 700 /uL (0-900); Monocytes Percent Auto 5.6 % (3-14); Neutrophils Absolute Auto 7900 /uL (1500-7000); Neutrophils Percent Auto 66.3 % (50-75); Platelet Count 149 X10^3/uL (150-400); Red Blood Cell Count 5.16 X10^6/uL (4.5-5.9); Red Cell Distribution Width 14.2 % (11.6-14.8); White Blood Cell Count 11.9 X10^3/uL (4.5-11.0)
[2019-04-15 15:03] LABS: Prothrombin Time 11.6 SECONDS (10.1-12.7)
[2019-04-15 15:06] LABS: PTT Partial Thromboplastin Tim 36 SECONDS (26.4-36.2)
[2019-04-15 15:14] LABS: Alanine Aminotransferase 18 IU/L (21-72); Albumin 4.2 g/dL (3.5-5.0); Albumin Globulin Ratio 1.3 (1.0-2.8); Alkaline Phosphatase 79 U/L (38-126); Aspartate Aminotransferase 30 IU/L (17-59); BUN Creatinine Ratio 23.8 (6-22); Bilirubin Total 0.4 mg/dL (0.2-1.3); Blood Urea Nitrogen 19 mg/dL (9-20); Calcium 9.4 mg/dL (8.4-10.2); Carbon Dioxide 25 mmol/L (22-32); Chloride 104 mmol/L (98-107); Creatine Kinase 50 U/L (55-170); Estimated Glomerular Filt Rate > 60.0 mL/min (>60); Globulin 3.3 g/dL (1.7-4.1); Glucose 107 mg/dL (70-100); HEMOLYSIS < 15 (0-50); Lipase 293 U/L (23-300); Potassium 4.1 mmol/L (3.4-5.1); Sodium 138 mmol/L (137-145); Total Protein 7.5 g/dL (6.3-8.2)
[2019-04-15 15:26] LABS: B Type Natriuretic Peptide < 100 (<100); Troponin I < 0.012 ng/mL (0.01-0.034)
--- NOTE | 2019-04-15 15:42 | PC.NURSE ---
Dr. Solis aware of labile blood pressure after Nitro. getting [facility] records.
[2019-04-15 18:13] LABS: Troponin I < 0.012 ng/mL (0.01-0.034)
== END 2019-04-15 18:58 | disposition home or self-care (01) ==
PROVIDERS: Emergency Provider Emergency Medicine; PCP Family Medicine
DX: R07.89 Other chest pain (principal)
CPT/HCPCS: 36415; 71045; 80053; 82550; 83690; 83880; 84484; 85025; 85610; 85730; 93005; 94640; 99283; 99285

== ENCOUNTER 2019-05-04 00:25 | Emergency (ER) | payer MEDICARE, MEDICAID, SELFPAY ==
--- NOTE | 2019-05-04 00:27 | ED.SOB ---
HPI - SOB/Dyspnea General Chief Complaint: Shortness of Breath/Dyspnea Stated Complaint: Blood in sputum Time Seen by Provider: 05/04/19 00:26 Source: patient Mode of arrival: Ambulatory Limitations: no limitations History of Present Illness HPI Narrative: This is a 58-year-old male comes in with complaint of some hemoptysis. He had some streaks in his sputum today. He brought 1. There is a very small streak of sputum that is tinged with blood. Patient states he has had this before but it was 4-6 months ago. He has had a couple episodes he has been told to come to the ER if he has it in the past. He uses albuterol nebulized twice daily along with as needed albuterol and Dulera daily. He does have known COPD. He is currently on a prednisone taper and at 10 mg and was recently on Augmentin which has been finished. He states he feels maybe a little fuzzy or light in his chest. He states that maybe there is a little pressure left lower chest but he states he has at typically. He states that there are nodules in his chest at they are watching. He does not know if it is in the same location. He has had increase of sputum output which are yellow with occasional flecks of black. He denies any syncope, no nausea, no vomiting, he has had more frequent bowel movements but they have been solid, he has also had more frequent urination and states when he poops he pees. Patient did have a possible episode of V-tach in the past, he had an event monitor which did not show any changes. He does have a history of hypertension. He is on aspirin 81 mg daily as well as lisinopril and simvastatin Related Data Home Medications Medication Instructions Recorded Confirmed Spiriva with HandiHaler 18 mcg INH DAILY 06/28/18 04/26/19 azithromycin 250 mg tablet 250 mg PO Q OTHER DAY 09/22/18 04/26/19 ondansetron 4 mg disintegrating 4 mg PO BID-TID PRN 12/03/18 04/26/19 tablet acetaminophen 1 dose PO PRN PRN 12/29/18 04/26/19 cetirizine [All Day Allergy 10 mg PO QPM 12/29/18 04/26/19 (cetirizine)] ibuprofen 1 dose PO PRN PRN 12/29/18 04/26/19 magnesium hydroxide 1 dose PO PRN PRN 12/29/18 04/26/19 montelukast 10 mg PO QPM 12/29/18 04/26/19 food supplemt, lactose-reduced See Rx Instructions .ROUTE 01/25/19 04/26/19 .COMPLEX each Previous Rx's Medication Instructions Recorded albuterol sulfate 90 mcg/actuation 1 - 2 puff INHALATION Q4HP PRN #18 11/25/18 aerosol inhaler gram simvastatin 20 mg tablet 20 mg PO BEDTIME #90 tab 02/23/19 clonazepam 0.5 mg tablet 0.5 mg PO BIDP PRN #30 tab 02/24/19 benzonatate 100 mg capsule 100 mg PO TID #90 cap 03/01/19 nystatin 100,000 unit/mL oral 5 ml PO QID #200 ml 03/29/19 suspension lisinopril 10 mg tablet 10 mg PO DAILY #30 tab 04/18/19 mometasone-formoterol HFA 200 2 puff INHALATION BID #39 gram 04/19/19 mcg-5 mcg/actuation aerosol inhaler prednisone 5 mg tablet 5 mg PO DAILY #15 tab 04/26/19 Allergies Allergy/AdvReac Type Severity Reaction Status Date / Time beclomethasone [From QVAR] Allergy Severe tachycardia Verified 05/04/19 00:31 budesonide [From SYMBICORT] Allergy Severe tachycardia Verified 05/04/19 00:31 cinnamon [CINNAMON] Allergy Severe RESP Verified 05/04/19 00:31 PROBLEMS AND SWELLING formoterol [From SYMBICORT] Allergy Severe tachycardia Verified 05/04/19 00:31 codeine [CODEINE] Allergy Intermediate violent Verified 05/04/19 00:31 Sulfa (Sulfonamide Allergy Intermediate anaphylacti Verified 05/04/19 00:31 Antibiotics) c [SULFA (SULFONAMIDE ANTIBIOTICS)] doxycycline [DOXYCYCLINE] Allergy Mild N/V Verified 05/04/19 00:31 trimethoprim [TRIMETHOPRIM] Allergy Unknown Patient Verified 05/04/19 00:31 can't remember fluticasone [FLUTICASONE] AdvReac Intermediate FEELS Verified 05/04/19 00:31 LIKE FIRE IN THE LUNGS prednisone [PREDNISONE] AdvReac Mild SHAKY AND Verified 05/04/19 00:31 WEAK ON HIGHER DOSES Review of Systems Review of Systems ROS Unobtainable: All systems reviewed & are unremarkable except as noted in HPI and below Patient History Medical History Anxiety (Chronic ~2015) Asthma (Chronic Unknown) COPD (chronic obstructive pulmonary disease) (Chronic ~2013) Hematuria (Resolved ~2014) Hyperlipidemia (Chronic ~2015) Insomnia (Chronic ~2015) TIA (transient ischemic attack) (Resolved 05/2014) Surgical History No pertinent past surgical history (Acute) Social History household members: family Smoking Status: Current some day smoker Tobacco: How many years used: 47 quit status: considering quitting (I have been working on it.) second hand exposure: No alcohol intake: former (I quit at least 10 years ago (as of 02/09/19).) substance use type: does not use tobacco type: cigarettes alcohol intake frequency: 0-2 drinks per day Substance Use Type: does not use Exam Narrative Exam Narrative: GENERAL: Alert and oriented x three, male who appears older than his stated age, in mild distress. HEENT: Head normocephalic, atraumatic, EOMI, pupils reactive, face symmetric, moist mucous membranes, patient has nasal cannula in place which he wears home O2. NECK: Supple, full range of motion CARDIOVASCULAR: Regular rate and rhythm without murmurs, rubs or gallops. RESPIRATORY: Breath sounds equal bilaterally although slightly decreased, no wheezes rales or rhonchi. No tachypnea. Mild pursed lip breathing. No accessory muscle use. ABDOMEN: Soft, nontender. Normoactive bowel sounds all 4 quadrants. No guarding or rebound, rigidity, no mass : No CVA tenderness EXTREMITIES: Normal range of motion, no edema. Neurovascularly intact NEUROLOGICAL: Cranial nerves II through XII grossly intact. Moving all extremities SKIN: Warm, dry, no petechiae, no rashes or lesions. Initial Vital Signs Initial Vital Signs: Vital Signs Temperature 98.2 F 05/04/19 00:31 Pulse Rate 91 H 05/04/19 00:31 Respiratory Rate 16 05/04/19 00:31 Blood Pressure 143/74 H 05/04/19 00:31 Pulse Oximetry 100 05/04/19 00:31 Course Orders Ordered: ED Orders 05/04/19 00:28 B Type Natriuretic Peptide Stat Basic Metabolic Panel Stat Complete Blood Count AUTO DIFF Stat D Dimer Stat Magnesium Stat Partial Thromboplastin Time Stat Procalcitonin Stat Prothrombin Time INR Stat Troponin & CK Cardiac Panel Stat 05/04/19 00:32 Consult to Respiratory Therapy Evaluate & Treat EKG-12 Lead Stat 05/04/19 00:33 XR chest 1V Stat Vital Signs Vital signs: Vital Signs - 8 hr 05/04/19 00:31 05/04/19 00:38 05/04/19 01:30 Temperature 98.2 F Pulse Rate 91 H 91 H 81 Respiratory Rate 16 15 Blood Pressure 143/74 H Blood Pressure [Left Arm] 128/71 113/68 Pulse Oximetry 100 99 99 05/04/19 01:54 Temperature 97.7 F Pulse Rate Respiratory Rate Blood Pressure Blood Pressure [Left Arm] Pulse Oximetry MDM - SOB/Dyspnea Lab Data Attestation: I reviewed the patient's lab results. Result diagrams: 05/04/19 00:28 05/04/19 00:28 Labs: Lab Results 05/04/19 05/04/19 05/04/19 Range/Units 00:28 00:28 00:28 WBC 15.8 H (4.5-11.0) X10^3/uL RBC 5.19 (4.5-5.9) X10^6/uL Hgb 14.5 (13.5-17.5) g/dL Hct 44.1 (41-53) % MCV 84.9 (80-100) fL MCH 28.0 (26-34) PG MCHC 32.9 (30-36) % RDW 14.8 (11.6-14.8) % Plt Count 239 (150-400) X10^3/uL Neut % (Auto) 66.7 (50-75) % Lymph % (Auto) 25.6 (25-40) % Allen % (Auto) 5.7 (3-14) % Eos % (Auto) 1.8 L (2-4) % Baso % (Auto) 0.2 (0-2) % Neut # (Auto) 52434 H (5194-0118) /uL Lymph # (Auto) 4000 (1672-7848) /uL Allen # (Auto) 900 (0-900) /uL Eos # (Auto) 300 (0-450) /uL Baso # (Auto) 0 (0-100) /uL PT 9.9 L (10.1-12.7) SECONDS INR 0.9 (0.9-1.3) APTT 31 D (26.4-36.2) SECONDS D-Dimer < 200 (<230) ng/mL Sodium 139 (137-145) mmol/L Potassium 3.5 (3.4-5.1) mmol/L Chloride 102 (98-107) mmol/L Carbon Dioxide 32 (22-32) mmol/L BUN 22 H (9-20) mg/dL Creatinine 0.80 (0.66-1.25) mg/dL Estimated GFR > 60.0 (>60) mL/min BUN/Creatinine Ratio 27.5 H (6-22) Glucose 112 H (70-100) mg/dL Calcium 9.1 (8.4-10.2) mg/dL Magnesium 1.9 (1.6-2.3) mg/dL Total Creatine Kinase 29 L (55-170) U/L CK-MB (CK-2) TNP CK-MB (CK-2) Rel Index TNP Troponin I < 0.012 (0.01-0.034) ng/mL B-Natriuretic Peptide < 100 (<100) Procalcitonin (<0.5) ng/mL 05/04/19 Range/Units 00:28 WBC (4.5-11.0) X10^3/uL RBC (4.5-5.9) X10^6/uL Hgb (13.5-17.5) g/dL Hct (41-53) % MCV (80-100) fL MCH (26-34) PG MCHC (30-36) % RDW (11.6-14.8) % Plt Count (150-400) X10^3/uL Neut % (Auto) (50-75) % Lymph % (Auto) (25-40) % Allen % (Auto) (3-14) % Eos % (Auto) (2-4) % Baso % (Auto) (0-2) % Neut # (Auto) (0568-1242) /uL Lymph # (Auto) (4693-7039) /uL Allen # (Auto) (0-900) /uL Eos # (Auto) (0-450) /uL Baso # (Auto) (0-100) /uL PT (10.1-12.7) SECONDS INR (0.9-1.3) APTT (26.4-36.2) SECONDS D-Dimer (<230) ng/mL Sodium (137-145) mmol/L Potassium (3.4-5.1) mmol/L Chloride (98-107) mmol/L Carbon Dioxide (22-32) mmol/L BUN (9-20) mg/dL Creatinine (0.66-1.25) mg/dL Estimated GFR (>60) mL/min BUN/Creatinine Ratio (6-22) Glucose (70-100) mg/dL Calcium (8.4-10.2) mg/dL Magnesium (1.6-2.3) mg/dL Total Creatine Kinase (55-170) U/L CK-MB (CK-2) CK-MB (CK-2) Rel Index Troponin I (0.01-0.034) ng/mL B-Natriuretic Peptide (<100) Procalcitonin < 0.05 (<0.5) ng/mL Imaging Data Chest x-ray: My impression: Patient does not have any new acute changes noted on chest x-ray. ECG Data Attestation: I personally reviewed and interpreted this ECG as follows: Prior ECG tracings: available for review Interpretation: Sinus rhythm rate of 89 P are 145 QRS of 107 and QTC of 395. No ST elevation or depression, nonspecific change. Patient has prior EKG from 04/15/2019 which appears similar. [facility] Narrative Medical decision making narrative: Patient's lab work shows a slightly elevated white count although he has been on steroids and is currently weaning off and this could be the cause of his leukocytosis. He has not had any new discrete infectious symptoms, coags are not elevated, D-dimer is negative the patient does not have any new risk factors that would suggest PE. Chemistry shows elevated BUN, glucose is 112 with normal electrolytes and renal function. Troponin and BNP are normal range with a procalcitonin that is negative. by patient's description and when he is brought in tonight his hemoptysis is quite minimal he has had episodes in the past he is chronically on O2 at all times which could dry his airway and increase his risk for having some bleeding. He also does have some pretty severe COPD. My suspicion for PE, or other emergent cause is low and discussed patient she continue his home medications. Discharge Plan Departure Patient Disposition: Home Clinical Impression: Hemoptysis Discharge Date/Time: 05/04/19 01:57 Instructions: DI for Hemoptysis Activity Restrictions/Additional Instructions: Follow-up with your physician in the next week. Call for an appointment. May continue home medications as prescribed. Return to the emergency department for fevers greater 100.4 F, new chest pain, shortness of breath, rapidly increasing hemoptysis or increasing amount of hemoptysis, passing out, lightheadedness, persistent vomiting, new bruising, bleeding from other sites, black or blood in your stools, urine or other new or concerning symptoms. Prescriptions: No Action azithromycin 250 mg tablet 250 mg PO Q OTHER DAY RF: 0 Ventolin HFA 90 mcg/actuation HFA aerosol inhaler 1 - 2 puff Inhalation Q4HP PRN (Reason: Shortness Of Breath Or Wheezing) Qty: 18 RF: 3 simvastatin 20 mg tablet 20 mg PO BEDTIME Qty: 90 RF: 0 clonazepam 0.5 mg tablet 0.5 mg PO BIDP PRN (Reason: anxiety) Qty: 30 RF: 0 benzonatate 100 mg capsule 100 mg PO TID Qty: 90 RF: 1 lisinopril 10 mg tablet 10 mg PO DAILY Qty: 30 RF: 0 ondansetron 4 mg tablet,disintegrating 4 mg PO BID-TID PRN (Reason: Nausea) RF: 0 nystatin 100,000 unit/mL suspension 5 ml PO QID Qty: 200 RF: 0 prednisone 5 mg tablet 5 mg PO DAILY Qty: 15 RF: 0 Dulera 200-5 mcg/actuation HFA aerosol inhaler 2 puff INHALATION BID Qty: 39 RF: 3 Ensure liquid See Rx Instructions .ROUTE .COMPLEX RF: 0 montelukast 10 mg tablet 10 mg PO QPM RF: 0 acetaminophen 325 mg Tablet 1 dose PO PRN PRN (Reason: pain) RF: 0 magnesium hydroxide 400 mg/5 mL Suspension 1 dose PO PRN PRN (Reason: Indigestion) RF: 0 ibuprofen 200 mg Tablet 1 dose PO PRN PRN (Reason: pain) RF: 0 All Day Allergy (cetirizine) 10 mg capsule 10 mg PO QPM RF: 0 Spiriva with HandiHaler 18 MCG capsule, w/inhalation device 18 mcg INH DAILY RF: 0 Referrals: Naye Reese DO [Primary Care Provider] -
[2019-05-04 00:31] VITALS: BP 143/74; PULSE 91; RESP 16; TEMP 36.8; O2SAT 100
--- NOTE | 2019-05-04 00:33 | DI.RAD.S_ITS ---
PROCEDURE: XR CHEST 1V INDICATIONS: hemoptysis TECHNIQUE: One view of the chest was acquired. COMPARISON: [facility], [place], XR CHEST 1V, 04/15/2019, 14:27. FINDINGS: Surgical changes and devices: None. Lungs and pleura: Redemonstration of upper lobe predominant pulmonary emphysematous changes. Minimal diffuse lower lung zone opacities greater on the right. No focal consolidation. No pleural effusions or pneumothorax. Mediastinum: Mediastinal contours appear normal. Heart size is normal. Bones and chest wall: No suspicious bony lesions. Overlying soft tissues appear unremarkable. IMPRESSION: Minimal diffuse lower lung zone opacities without focal consolidation. Findings are more pronounced on the right and may represent an infectious/inflammatory process. Consider followup imaging to document resolution of findings. Dictated by: Pancho Adame M.D. on 05/04/2019 at 8:00 Approved by: Pancho Adame M.D. on 05/04/2019 at 8:04
[2019-05-04 00:38] VITALS: BP 128/71; PULSE 91; O2SAT 99
[2019-05-04 00:45] LABS: Add Manual Diff / Slide Review NO; Basophils Absolute Auto 0 /uL (0-100); Basophils Percent Auto 0.2 % (0-2); Eosinophils Absolute Auto 300 /uL (0-450); Eosinophils Percent Auto 1.8 % (2-4); Hematocrit 44.1 % (41-53); Hemoglobin 14.5 g/dL (13.5-17.5); Lymphocytes Absolute Auto 4000 /uL (1100-4500); Lymphocytes Percent Auto 25.6 % (25-40); Mean Corpuscular HGB Conc 32.9 % (30-36); Mean Corpuscular Volume 84.9 fL (80-100); Monocytes Absolute Auto 900 /uL (0-900); Monocytes Percent Auto 5.7 % (3-14); Neutrophils Absolute Auto 10600 /uL (1500-7000); Neutrophils Percent Auto 66.7 % (50-75); Platelet Count 239 X10^3/uL (150-400); Red Blood Cell Count 5.19 X10^6/uL (4.5-5.9); Red Cell Distribution Width 14.8 % (11.6-14.8); White Blood Cell Count 15.8 X10^3/uL (4.5-11.0)
[2019-05-04 00:48] LABS: INR 0.9 (0.9-1.3); Prothrombin Time 9.9 SECONDS (10.1-12.7)
[2019-05-04 00:50] LABS: PTT Partial Thromboplastin Tim 31 SECONDS (26.4-36.2)
[2019-05-04 00:51] LABS: BUN Creatinine Ratio 27.5 (6-22); Blood Urea Nitrogen 22 mg/dL (9-20); Calcium 9.1 mg/dL (8.4-10.2); Carbon Dioxide 32 mmol/L (22-32); Chloride 102 mmol/L (98-107); Creatine Kinase 29 U/L (55-170); D Dimer < 200 ng/mL (<230); Estimated Glomerular Filt Rate > 60.0 mL/min (>60); Glucose 112 mg/dL (70-100); HEMOLYSIS < 15 (0-50); Magnesium 1.9 mg/dL (1.6-2.3); Potassium 3.5 mmol/L (3.4-5.1); Sodium 139 mmol/L (137-145)
[2019-05-04 01:03] LABS: Troponin I < 0.012 ng/mL (0.01-0.034)
[2019-05-04 01:06] LABS: B Type Natriuretic Peptide < 100 (<100)
[2019-05-04 01:08] LABS: Procalcitonin < 0.05 ng/mL (<0.5)
[2019-05-04 01:30] VITALS: BP 113/68; PULSE 81; RESP 15; O2SAT 99
[2019-05-04 01:54] VITALS: TEMP 36.5
== END 2019-05-04 01:57 | disposition home or self-care (01) ==
PROVIDERS: Emergency Provider Emergency Medicine; PCP Family Medicine
DX: R04.2 Hemoptysis (principal); R79.89 Other specified abnormal findings of blood chemistry
CPT/HCPCS: 36415; 71045; 80048; 82550; 83735; 83880; 84145; 84484; 85025; 85379; 85610; 85730; 93005; 99283; 99285

== ENCOUNTER → 2019-06-30 14:29 | Outpatient (CLI) | payer MEDICARE, MEDICAID, SELFPAY ==
--- NOTE | 2019-06-30 14:32 | DI.RAD.S_ITS ---
PROCEDURE: XR LUMBAR SPINE 2-3V INDICATIONS: pain TECHNIQUE: 3 views of the lumbar spine were acquired. COMPARISON: None. FINDINGS: Bones: 5 [id number] vertebrae are present. There is straightening of normal lumbar lordosis. Degenerative endplate changes throughout lumbar spine is seen.. No vertebral body compression fractures. No suspicious bony lesions. Soft tissues: Overlying bowel gas pattern is normal. No suspicious soft tissue calcifications. IMPRESSION: Mild degenerative disc disease throughout lumbar spine. No acute compression fracture or spondylolisthesis. Dictated by: Giuseppe Fonseca M.D. on 06/30/2019 at 20:23 Approved by: Giuseppe Fonseca M.D. on 06/30/2019 at 20:24
--- NOTE | 2019-06-30 14:32 | DI.RAD.S_ITS ---
PROCEDURE: XR HIP W PEL IF DONE LT 2V INDICATIONS: hip pain TECHNIQUE: AP pelvis with lateral view(s) of the left hip(s). COMPARISON: None. FINDINGS: Bones: No fractures or dislocations. Mild left hip joint osteoarthritic changes are seen. No evidence of avascular necrosis of femoral head. Pelvic ring appears intact. No suspicious bony lesions. Soft tissues: The visualized bowel gas pattern is normal. No suspicious soft tissue calcifications. IMPRESSION: Mild left hip joint osteoarthritis. Dictated by: Giuseppe Fonseca M.D. on 06/30/2019 at 20:22 Approved by: Giuseppe Fonseca M.D. on 06/30/2019 at 20:23
== END ==
PROVIDERS: PCP Family Medicine; Visit Provider Family Medicine
DX: M25.552 Pain in left hip (principal); S39.012A Strain of muscle, fascia and tendon of lower back, initial encounter; M51.36 Other intervertebral disc degeneration, lumbar region; M16.12 Unilateral primary osteoarthritis, left hip; M53.3 Sacrococcygeal disorders, not elsewhere classified
CPT/HCPCS: 72100; 73502

== ENCOUNTER → 2019-08-04 12:44 | Outpatient (CLI) | payer MEDICARE, MEDICAID, SELFPAY ==
--- NOTE | 2019-08-04 12:46 | DI.CT.S_ITS ---
PROCEDURE: CT HEAD/BRAIN WO/W CON INDICATIONS: History of intracranial lesion, request for follow-up, compare TECHNIQUE: 4.5 mm thick angled axial sections acquired from the foramen magnum to the vertex before and after the administration of intravenous contrast, with coronal and sagittal reformats. For radiation dose reduction, the following was used: automated exposure control, adjustment of mA and/or kV according to patient size. COMPARISON: [facility], [place], PET NECK TO MID THIGH, 07/29/2017, 13:36. [facility], [place], HEAD WITHOUT CONTRAST, 06/26/2016, 15:15. FINDINGS: Image quality: Excellent. CSF Spaces: Basal cisterns are patent. No extra-axial fluid collections. Ventricles are normal in size and shape. Brain: The previously identified focus of hypoattenuation within the left posterior parietal occipital lobe is unchanged in size and appearance. No new additional lesions are identified. It is nonenhancing. There is no midline shift. No acute hemorrhage. Guevara-white interface appears normal. Skull and face: Calvarium and visualized facial bones appear intact, without suspicious lesions. Sinuses: Visualized sinuses and mastoids are clear. IMPRESSION: 1. Stable focus of hypodensity within the left parietal-occipital lobe compared to 2016. Finding is likely related to sequela of prior infection or ischemia. Dictated by: Yadira Giraldo M.D. on 08/04/2019 at 15:49 Approved by: Yadira Giraldo M.D. on 08/04/2019 at 15:57
== END ==
PROVIDERS: PCP Family Medicine; Visit Provider Family Medicine
DX: R90.0 Intracranial space-occupying lesion found on diagnostic imaging of central nervous system (principal)
CPT/HCPCS: 70470; Q9967

== ENCOUNTER 2020-01-30 18:47 | Emergency (ER) | payer MEDICARE, MEDICAID, SELFPAY ==
[2020-01-30] VITALS (12 sets, daily range): BP systolic 111–122; BP diastolic 60–69; PULSE 68–93; RESP 14–36; TEMP 36.9; O2SAT 98–100
--- NOTE | 2020-01-30 19:06 | DI.RAD.S_ITS ---
PROCEDURE: XR CHEST 1V INDICATIONS: chest pain TECHNIQUE: One view of the chest was acquired. COMPARISON: [facility], [place], XR CHEST 1V, 05/04/2019, 0:37. FINDINGS: Surgical changes and devices: None. Lungs and pleura: Subtle patchy opacities noted in the lung bases bilaterally. No pleural effusions or pneumothorax. Mediastinum: Mediastinal contours appear normal. Heart size is normal. Bones and chest wall: No suspicious bony lesions. Overlying soft tissues appear unremarkable. IMPRESSION: Subtle patchy opacities in the lung bases may represent atypical pneumonia. Please correlate with clinical and laboratory data. Dictated by: Lianet Celis MD, PhD on 01/30/2020 at 20:00 Approved by: Lianet Celis MD, PhD on 01/30/2020 at 20:01
[2020-01-30 19:15] LABS: Add Manual Diff / Slide Review NO; Basophils Absolute Auto 0 /uL (0-100); Basophils Percent Auto 0.3 % (0-2); Eosinophils Absolute Auto 200 /uL (0-450); Eosinophils Percent Auto 1.9 % (2-4); Hematocrit 42.5 % (41-53); Hemoglobin 14.2 g/dL (13.5-17.5); Lymphocytes Absolute Auto 2900 /uL (1100-4500); Mean Corpuscular HGB Conc 33.5 % (30-36); Mean Corpuscular Hemoglobin 29.1 PG (26-34); Mean Corpuscular Volume 87.1 fL (80-100); Monocytes Absolute Auto 500 /uL (0-900); Monocytes Percent Auto 4.6 % (3-14); Neutrophils Absolute Auto 7000 /uL (1500-7000); Neutrophils Percent Auto 66.2 % (50-75); Platelet Count 165 X10^3/uL (150-400); Red Blood Cell Count 4.88 X10^6/uL (4.5-5.9); Red Cell Distribution Width 14.4 % (11.6-14.8); White Blood Cell Count 10.7 X10^3/uL (4.5-11.0)
[2020-01-30 19:21] LABS: Alanine Aminotransferase 15 IU/L (<50); Albumin 4.3 g/dL (3.5-5.0); Albumin Globulin Ratio 1.4 (1.0-2.8); Alkaline Phosphatase 66 U/L (38-126); Aspartate Aminotransferase 28 IU/L (17-59); BUN Creatinine Ratio 24.7 (6-22); Bilirubin Total 0.3 mg/dL (0.2-1.3); Blood Urea Nitrogen 22 mg/dL (9-20); Calcium 9.7 mg/dL (8.4-10.2); Carbon Dioxide 26 mmol/L (22-32); Chloride 105 mmol/L (98-107); Creatine Kinase 71 U/L (55-170); Estimated Glomerular Filt Rate > 60.0 mL/min (>60); Glucose 122 mg/dL (80-110); HEMOLYSIS 22 (0-50); Lipase 336 U/L (23-300); Sodium 139 mmol/L (137-145); Total Protein 7.3 g/dL (6.3-8.2)
[2020-01-30 19:29] LABS: D Dimer < 200 ng/mL (<230)
[2020-01-30 19:32] LABS: Troponin I < 0.012 ng/mL (0.01-0.034)
[2020-01-30] MEDS: SODIUM CHLORIDE 0.9% 1,000 ML 150 ML IV (20:13)
--- NOTE | 2020-01-30 23:07 | ED_ITS ---
HPI - Chest Pain General Chief Complaint: Chest Pain Stated Complaint: Chest pain x3hr Time Seen by Provider: 01/30/20 19:03 Source: patient Mode of arrival: EMS Limitations: no limitations History of Present Illness HPI narrative: 59-year-old gentleman with a history of ASCVD, oxygen dependent COPD, chronic noncardiac chest pain from musculoskeletal/arthritis issues, hyperlipidemia presents with 3 hours of central chest pain that radiates across his back and up through the left neck. Occurred while he was sitting and chatting with his caregiver and was not associated with diaphoresis or increased dyspnea or nausea. He describes no recent fevers, chills, vomiting, diarrhea. No exertional dyspnea orthopnea or lower extremity edema no recent palpitations or increased fatigue. Related Data Home Medications Medication Instructions Recorded Confirmed Spiriva with HandiHaler 18 mcg INH DAILY 06/28/18 12/27/19 ondansetron 4 mg disintegrating 4 mg PO BID-TID PRN 12/03/18 12/27/19 tablet acetaminophen 1 dose PO PRN PRN 12/29/18 12/27/19 cetirizine [All Day Allergy 10 mg PO QPM 12/29/18 12/27/19 (cetirizine)] ibuprofen 1 dose PO PRN PRN 12/29/18 12/27/19 magnesium hydroxide 1 dose PO PRN PRN 12/29/18 12/27/19 montelukast 10 mg PO QPM 12/29/18 12/27/19 Previous Rx's Medication Instructions Recorded nystatin 100,000 unit/mL oral 5 ml PO QID #200 ml 03/29/19 suspension albuterol sulfate 90 mcg/actuation See Rx Instructions .ROUTE 05/04/19 aerosol inhaler .COMPLEX #18 gram mometasone-formoterol HFA 200 See Rx Instructions .ROUTE 05/04/19 mcg-5 mcg/actuation aerosol inhaler .COMPLEX #13 gram lisinopril 10 mg tablet 10 mg PO DAILY #90 tab 06/23/19 Disabled Parking Permit #1 ea 06/24/19 benzonatate 100 mg capsule 100 mg PO BID-TID #270 cap 09/12/19 clonazepam 0.5 mg tablet 0.5 mg PO BIDP PRN #60 tab 09/27/19 prednisone 20 mg tablet 40 mg PO DAILY #14 tab 09/27/19 simvastatin 20 mg tablet See Rx Instructions .ROUTE 11/28/19 .COMPLEX #90 tablet food supplemt, lactose-reduced See Rx Instructions .ROUTE 01/02/20 .COMPLEX #60 each Allergies Allergy/AdvReac Type Severity Reaction Status Date / Time beclomethasone [From QVAR] Allergy Severe tachycardia Verified 12/27/19 13:32 budesonide [From SYMBICORT] Allergy Severe tachycardia Verified 12/27/19 13:32 cinnamon [CINNAMON] Allergy Severe RESP Verified 12/27/19 13:32 PROBLEMS AND SWELLING codeine [CODEINE] Allergy Intermediate violent Verified 12/27/19 13:32 fluticasone [FLUTICASONE] Allergy Intermediate FEELS Verified 12/27/19 13:32 LIKE FIRE IN THE LUNGS Sulfa (Sulfonamide Allergy Intermediate anaphylacti Verified 12/27/19 13:32 Antibiotics) c [SULFA (SULFONAMIDE ANTIBIOTICS)] doxycycline [DOXYCYCLINE] Allergy Mild N/V Verified 12/27/19 13:32 trimethoprim [TRIMETHOPRIM] Allergy Unknown Patient Verified 12/27/19 13:32 can't remember formoterol [From SYMBICORT] AdvReac Severe tachycardia Verified 12/27/19 13:32 Review of Systems Review of Systems Narrative: Pertinent positive and negative findings as per HPI Remainder of review of systems is otherwise unremarkable for Constitutional: Fevers, chills, weakness ENT: No sore throat, neck pain, ear pain GI: Nausea, vomiting, diarrhea, change in bowel habits, black or bloody stools : Dysuria, hematuria, flank pain MS: Muscle weakness, numbness, joint swelling or warmth Skin: Rashes, nonhealing lesions Neuro: Syncope, dizziness, tingling Patient History Medical History Anxiety (Chronic ~2015) Asthma (Chronic Unknown) COPD (chronic obstructive pulmonary disease) (Chronic ~2013) GERD with stricture (Acute) Hematuria (Resolved ~2014) Hyperlipidemia (Chronic ~2015) Insomnia (Chronic ~2015) TIA (transient ischemic attack) (Resolved 05/2014) Surgical History No pertinent past surgical history (Acute) Family History Mother Age: 81 Hypertension Sister Age: 64 Cancer Social History household members: family Smoking Status: Current every day smoker Tobacco: How many years used: 47 quit status: considering quitting (I have been working on it.) second hand exposure: No alcohol intake: former (I quit at least 10 years ago (as of 02/09/19).) substance use type: does not use Smoking Status: Current every day smoker tobacco type: cigarettes alcohol intake frequency: holidays/special occasions only Substance Use Type: marijuana Exam Narrative Exam Narrative: General: Healthy appearing, in no acute distress. Able to give a complete and coherent history. Well-nourished well-developed HEENT: Moist mucous membranes, normal sclera with reactive pupils, Neck: No JVD, supple Respiratory: Lungs with mild scattered wheezing no rales no rhonchi. Full and symmetrical air movement Cardiac: Regular rate and rhythm no murmurs no bruits Abdomen: Soft nontender good bowel tones, no flank pain Skin: Warm and dry, no rashes Neurologic: Grossly neurologically intact with no obvious asymmetries or abnormalities Extremities: No trauma, well perfused Psych: Cooperative, appropriate insight and affect Initial Vital Signs Initial Vital Signs: Vital Signs Temperature 98.4 F 01/30/20 18:59 Pulse Rate 91 H 01/30/20 18:59 Respiratory Rate 21 01/30/20 18:59 Blood Pressure 122/69 01/30/20 18:59 Pulse Oximetry 98 01/30/20 18:59 Course Orders Ordered: ED Orders 01/30/20 23:30 Troponin I Stat Discontinued Medications Aspirin (Aspirin Chew) 324 mg PO NOW ONE Stop: 01/30/20 19:07 Last Admin: 01/30/20 19:12 Dose: Not Given Documented by: CARLY Sodium Chloride (Normal Saline 0.9%) 1,000 mls @ 150 mls/hr IV CONT ROBERT Last Infusion: 01/31/20 00:50 Dose: 0 mls/hr Documented by: Admin: 01/30/20 20:13 Dose: 150 mls/hr Documented by: KAYLEEN Vital Signs Vital signs: Vital Signs - 8 hr 01/30/20 22:30 01/30/20 23:00 01/30/20 23:30 Pulse Rate 68 68 73 Respiratory Rate 17 14 36 H Blood Pressure 114/62 116/63 119/67 Pulse Oximetry 100 98 98 01/31/20 00:00 01/31/20 00:30 01/31/20 01:00 Pulse Rate 72 68 68 Respiratory Rate 20 20 18 Blood Pressure 132/69 120/65 118/64 Pulse Oximetry 98 98 98 MDM - Chest Pain Medical Records Data Attestation: I reviewed the patient's medical records. Lab Data Attestation: I reviewed the patient's lab results. Result diagrams: 01/30/20 19:12 01/30/20 19:12 Labs: Lab Results 01/30/20 01/30/20 01/30/20 Range/Units 19:12 19:12 19:12 WBC 10.7 (4.5-11.0) X10^3/uL RBC 4.88 (4.5-5.9) X10^6/uL Hgb 14.2 (13.5-17.5) g/dL Hct 42.5 (41-53) % MCV 87.1 (80-100) fL MCH 29.1 (26-34) PG MCHC 33.5 (30-36) % RDW 14.4 (11.6-14.8) % Plt Count 165 (150-400) X10^3/uL Neut % (Auto) 66.2 (50-75) % Lymph % (Auto) 27.0 (25-40) % [place] % (Auto) 4.6 (3-14) % Eos % (Auto) 1.9 L (2-4) % Baso % (Auto) 0.3 (0-2) % Neut # (Auto) 7000 (8631-1429) /uL Lymph # (Auto) 2900 (0013-8133) /uL [place] # (Auto) 500 (0-900) /uL Eos # (Auto) 200 (0-450) /uL Baso # (Auto) 0 (0-100) /uL D-Dimer < 200 (<230) ng/mL Sodium 139 (137-145) mmol/L Potassium 4.0 (3.4-5.1) mmol/L Chloride 105 (98-107) mmol/L Carbon Dioxide 26 (22-32) mmol/L BUN 22 H (9-20) mg/dL Creatinine 0.89 (0.66-1.25) mg/dL Estimated GFR > 60.0 (>60) mL/min BUN/Creatinine Ratio 24.7 H (6-22) Glucose 122 H (80-110) mg/dL Calcium 9.7 (8.4-10.2) mg/dL Total Bilirubin 0.3 (0.2-1.3) mg/dL AST 28 (17-59) IU/L ALT 15 (<50) IU/L Alkaline Phosphatase 66 (38-126) U/L Total Creatine Kinase 71 (55-170) U/L CK-MB (CK-2) TNP CK-MB (CK-2) Rel Index TNP Troponin I < 0.012 (0.01-0.034) ng/mL Total Protein 7.3 (6.3-8.2) g/dL Albumin 4.3 (3.5-5.0) g/dL Globulin 3.0 (1.7-4.1) g/dL Albumin/Globulin Ratio 1.4 (1.0-2.8) Lipase 336 H (23-300) U/L 01/30/20 Range/Units 23:30 WBC (4.5-11.0) X10^3/uL RBC (4.5-5.9) X10^6/uL Hgb (13.5-17.5) g/dL Hct (41-53) % MCV (80-100) fL MCH (26-34) PG MCHC (30-36) % RDW (11.6-14.8) % Plt Count (150-400) X10^3/uL Neut % (Auto) (50-75) % Lymph % (Auto) (25-40) % [place] % (Auto) (3-14) % Eos % (Auto) (2-4) % Baso % (Auto) (0-2) % Neut # (Auto) (9516-3148) /uL Lymph # (Auto) (2289-0691) /uL [place] # (Auto) (0-900) /uL Eos # (Auto) (0-450) /uL Baso # (Auto) (0-100) /uL D-Dimer (<230) ng/mL Sodium (137-145) mmol/L Potassium (3.4-5.1) mmol/L Chloride (98-107) mmol/L Carbon Dioxide (22-32) mmol/L BUN (9-20) mg/dL Creatinine (0.66-1.25) mg/dL Estimated GFR (>60) mL/min BUN/Creatinine Ratio (6-22) Glucose (80-110) mg/dL Calcium (8.4-10.2) mg/dL Total Bilirubin (0.2-1.3) mg/dL AST (17-59) IU/L ALT (<50) IU/L Alkaline Phosphatase (38-126) U/L Total Creatine Kinase (55-170) U/L CK-MB (CK-2) CK-MB (CK-2) Rel Index Troponin I < 0.012 (0.01-0.034) ng/mL Total Protein (6.3-8.2) g/dL Albumin (3.5-5.0) g/dL Globulin (1.7-4.1) g/dL Albumin/Globulin Ratio (1.0-2.8) Lipase (23-300) U/L ECG Data Attestation: I personally reviewed and interpreted this ECG as follows: Interpretation: Normal sinus rhythm at a rate of90 Normal intervals, normal axis No acute ischemic changes MDM Narrative Medical decision making narrative: Presents with chest for approximately 3 hours prior to arrival. Completely resolved after 2 nitroglycerin and fentanyl. Labs including troponin and follow-up troponin are unremarkable as is chest x-ray. Jarrett davidson has remained completely comfortable in pain 3 throughout his emergency room stay. He notes that he does have quite a bit of noncardiac chest pain and difficulty with breathing in his COPD(oxygen dependent). Results are reviewed with him. Noncardiac chest pain OBS final diagnosis he is safe for home discharge Discharge Plan Departure Patient Disposition: Home Clinical Impression: Chest pain, non-cardiac Discharge Date/Time: 01/31/20 01:12 Instructions: DI for Atypical Chest Pain Activity Restrictions/Additional Instructions: Thank you for coming in today I am finding no evidence of an acute heart attack or heart attack like syndrome. I am very glad that you decided to come in at 3 hours. rather than 3 days like last time. Similarly, there is no evidence for collapsed lung, heart failure, infection or blood clots in your lungs. With your pain resolved after nitroglycerin and fentanyl. I suspect that the fentanyl was more helpful for musculoskeletal pain and this is the most likely diagnosis for the cause of your pain. Please continue all of your usual medications. If you have new or changing symptoms please return for further evaluation. I wish you the best Prescriptions: No Action albuterol sulfate [Ventolin HFA] 90 mcg/actuation HFA aerosol inhaler See Rx Instructions .ROUTE .COMPLEX Qty: 18 RF: 3 mometasone-formoterol [Dulera] 200-5 mcg/actuation HFA aerosol inhaler See Rx Instructions .ROUTE .COMPLEX Qty: 13 RF: 6 lisinopril 10 mg tablet 10 mg PO DAILY Qty: 90 RF: 2 (DME) Disabled Parking Permit Qty: 1 RF: 0 benzonatate 100 mg capsule 100 mg PO BID-TID Qty: 270 RF: 1 simvastatin 20 mg tablet See Rx Instructions .ROUTE .COMPLEX Qty: 90 RF: 0 Ensure Liquid See Rx Instructions .ROUTE .COMPLEX Qty: 60 RF: 0 ondansetron 4 mg tablet,disintegrating 4 mg PO BID-TID PRN (Reason: Nausea) RF: 0 nystatin 100,000 unit/mL suspension 5 ml PO QID Qty: 200 RF: 0 clonazepam 0.5 mg tablet 0.5 mg PO BIDP PRN (Reason: anxiety) Qty: 60 RF: 2 prednisone 20 mg tablet 40 mg PO DAILY Qty: 14 RF: 2 montelukast 10 mg tablet 10 mg PO QPM RF: 0 acetaminophen 325 mg Tablet 1 dose PO PRN PRN (Reason: pain) RF: 0 magnesium hydroxide 400 mg/5 mL Suspension 1 dose PO PRN PRN (Reason: Indigestion) RF: 0 ibuprofen 200 mg Tablet 1 dose PO PRN PRN (Reason: pain) RF: 0 All Day Allergy (cetirizine) 10 mg capsule 10 mg PO QPM RF: 0 Spiriva with HandiHaler 18 MCG capsule, w/inhalation device 18 mcg INH DAILY RF: 0 Referrals: Saqib Oliva, [Primary Care Provider] -
[2020-01-31] VITALS: BP 132/69; PULSE 72; RESP 20; O2SAT 98
[2020-01-31 00:08] LABS: Troponin I < 0.012 ng/mL (0.01-0.034)
[2020-01-31 00:30] VITALS: BP 120/65; PULSE 68; RESP 20; O2SAT 98
[2020-01-31 01:00] VITALS: BP 118/64; PULSE 68; RESP 18; O2SAT 98
== END 2020-01-31 01:12 | disposition home or self-care (01) ==
PROVIDERS: Emergency Provider Emergency Medicine; PCP Family Medicine
DX: R07.89 Other chest pain (principal); E78.5 Hyperlipidemia, unspecified; M54.9 Dorsalgia, unspecified; M54.2 Cervicalgia; J44.9 Chronic obstructive pulmonary disease, unspecified
CPT/HCPCS: 36415; 71045; 80053; 82550; 83690; 84484; 85025; 85379; 93005; 96360; 96361; 99284; 99285

== ENCOUNTER → 2020-11-08 12:58 | Outpatient (CLI) | payer MEDICARE, MEDICAID, SELFPAY ==
--- NOTE | 2020-11-08 13:01 | DI.CT.S_ITS ---
PROCEDURE: CT CHEST WO CON INDICATIONS: Lung nodule surveillance, end-stage COPD TECHNIQUE: Noncontrast 2.0-2.5 mm thick sections acquired from the pulmonary apices to the posterior costophrenic angles. 7 mm thick axial MIP and 5 mm coronal and sagittal reformats were then acquired. A low radiation dose technique was utilized. COMPARISON: [facility], CT, CT ANGIO CHEST PE PROTOCOL, 02/02/2019, 13:28. [facility], CT, CT CHEST WITHOUT CONTRAST, 05/19/2019, 13:38. CT, THORAX WITHOUT CONTRAST, 07/17/2017, 9:43. [facility], CT, CT CHEST WO CON, 01/27/2018, 9:58. [facility], CT, CT CHEST WO CON, 05/07/2018, 15:54. FINDINGS: Image quality: Diagnostic, given the low radiation dose technique. Lungs and pleura: There are multiple nodular densities bilaterally. [employer] nodules are listed. Nodule 1: 6 mmmm; oval; RML; series 3, image 153; previously 7 mm. Nodule 2: 1.4 x 0.6 mmmm; RUL; series 3, image 118; previously 1.7 x 0.8 mm. Nodule 3: 4 x 7 mmmm; RUL; series 3, image 74; new. Nodule 4: 1.3 x 0.8mm; RLL; series 3, image 160; stable. Nodule 5: 5 mmmm; VAIBHAV; series 3, image 77; stable. Severe emphysema. No acute pulmonary opacity. No pleural effusion or pneumothorax. Right upper lobe and lingula scars and atelectasis. Mediastinum: Heart size is normal. No pericardial effusion. Mild coronary artery calcification. No mediastinal adenopathy by size criteria. Thoracic aorta and central pulmonary arteries are normal in size. Esophagus is normal in caliber. Small hiatal hernia. Bones and chest wall: No suspicious bony lesions. No vertebral body compression fractures. No axillary or supraclavicular adenopathy by size criteria. Thyroid gland is normal. There is gynecomastia. Abdomen: Visualized upper abdomen solid organs and bowel loops appear normal in the absence of contrast. IMPRESSION: 1. Existing nodules are either smaller or stable. There is, however, a new nodule in the right upper lobe measuring 4 x 7 mm. Please see enclosed follow-up recommendation. 2. Severe emphysema. Fleischner Society criteria for SOLID lung nodule followup. Nodule size (mm)Low-risk patientHigh-risk patient<6 (single or multiple)No routine followup.Optional CT at 12 months. 6-8 (single or multiple)CT at 6-12 months, then optional CT at 18-24 mo.CT at 6-12 months, then CT at 18-24 months. >8 (single)CT at 3 months, PET-CT, or biopsy. Same as for low-risk pts. >8 (multiple)CT at 3-6 months, then optional CT at 18-24 mo.CT at 3-6 months, then CT at 18-24 months. Recommendations do not apply to lung cancer screening, patients with immunosuppression, or patients with known primary cancer. Dictated by: Eddi Gómez M.D. on 11/08/2020 at 16:00 Approved by: Eddi Gómez M.D. on 11/08/2020 at 16:20
== END ==
PROVIDERS: PCP Family Medicine; Referring Provider Family Medicine; Visit Provider Family Medicine
DX: R91.1 Solitary pulmonary nodule (principal); J43.9 Emphysema, unspecified
CPT/HCPCS: 71250

== ENCOUNTER 2020-12-29 23:11 | Observation (INO) | payer MEDICARE, MEDICAID, SELFPAY ==
[2020-12-29 23:15] VITALS: BP 165/86; PULSE 104; RESP 25; TEMP 37.5; O2SAT 96; BMI 24.0
[2020-12-29 23:26] VITALS: PULSE 95; RESP 17; O2SAT 98
[2020-12-29 23:30] VITALS: BP 127/64; PULSE 89; RESP 13; O2SAT 97
--- NOTE | 2020-12-29 23:43 | ED.GIBLEED ---
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 He said he had 1 very large bloody bowel movement that actually hurt. He also feels a little dizzy and lightheaded and possibly more short of breath than usual. He is on 81 mg aspirin but no other blood thinners. He does have a history of diverticulitis but no previous history of bleeding. He states that he is unable to have a colonoscopy because he cannot undergo anesthesia secondary to his severe COPD. Related Data Home Medications Medication Instructions Recorded Confirmed Spiriva with HandiHaler 18 mcg INH DAILY 06/28/18 12/30/20 ondansetron 4 mg disintegrating 4 mg PO BID-TID PRN 12/03/18 12/30/20 tablet acetaminophen 1 dose PO PRN PRN 12/29/18 12/30/20 cetirizine [All Day Allergy 10 mg PO QPM 12/29/18 12/30/20 (cetirizine)] ibuprofen 1 dose PO PRN PRN 12/29/18 12/30/20 magnesium hydroxide 1 dose PO PRN PRN 12/29/18 12/30/20 montelukast 10 mg PO QPM 12/29/18 12/30/20 aspirin 81 mg PO DAILY 12/30/20 12/30/20 azithromycin 250 mg PO Q OTHER DAY 12/30/20 12/30/20 hydrocodone-acetaminophen 1 tab PO Q6H PRN 12/30/20 12/30/20 ipratropium-albuterol 3 ml INHALATION QID PRN 12/30/20 12/30/20 levalbuterol HCl 1.25 mg INHALATION Q6HR PRN 12/30/20 12/30/20 prednisone 20 mg PO DAILY 12/30/20 12/30/20 sumatriptan succinate 50 mg PO DAILY 12/30/20 12/30/20 Previous Rx's Medication Instructions Recorded nystatin 100,000 unit/mL oral 5 ml PO QID #200 ml 03/29/19 suspension albuterol sulfate 90 mcg/actuation See Rx Instructions .ROUTE 05/04/19 aerosol inhaler .COMPLEX #18 gram Disabled Parking Permit #1 ea 06/24/19 food supplemt, lactose-reduced See Rx Instructions .ROUTE 01/02/20 .COMPLEX #60 each clonazepam 0.5 mg tablet See Rx Instructions .ROUTE 04/11/20 .COMPLEX #60 tab benzonatate 100 mg capsule 100 mg PO BID-TID #270 cap 05/29/20 simvastatin 20 mg tablet See Rx Instructions .ROUTE 05/29/20 .COMPLEX #90 tablet mometasone-formoterol HFA 200 See Rx Instructions .ROUTE 05/30/20 mcg-5 mcg/actuation aerosol inhaler .COMPLEX #13 gram lisinopril 10 mg tablet See Rx Instructions .ROUTE 09/04/20 .COMPLEX #90 tab Allergies Allergy/AdvReac Type Severity Reaction Status Date / Time beclomethasone [From QVAR] Allergy Severe tachycardia Verified 10/22/20 14:15 budesonide [From SYMBICORT] Allergy Severe tachycardia Verified 10/22/20 14:15 cinnamon [CINNAMON] Allergy Severe RESP Verified 10/22/20 14:15 PROBLEMS AND SWELLING codeine [CODEINE] Allergy Intermediate violent Verified 10/22/20 14:15 fluticasone [FLUTICASONE] Allergy Intermediate FEELS Verified 10/22/20 14:15 LIKE FIRE IN THE LUNGS Sulfa (Sulfonamide Allergy Intermediate anaphylacti Verified 10/22/20 14:15 Antibiotics) c [SULFA (SULFONAMIDE ANTIBIOTICS)] doxycycline [DOXYCYCLINE] Allergy Mild N/V Verified 10/22/20 14:15 trimethoprim [TRIMETHOPRIM] Allergy Unknown Patient Verified 10/22/20 14:15 can't remember formoterol [From SYMBICORT] AdvReac Severe tachycardia Verified 10/22/20 14:15 Review of Systems Review of Systems ROS Unobtainable: All systems reviewed & are unremarkable except as noted in HPI and below Constitutional Constitutional: Denies chills, Denies fever(s), Denies lethargy and Denies weakness ENT Ears, Nose, Mouth, and Throat: Denies change in voice, Denies vertigo, Reports dizziness, Denies neck pain and Denies sore throat Cardiovascular Cardiovascular: Denies chest pain, Denies irregular heart rhythm, Reports lightheadedness, Denies palpitations, Reports dyspnea, Reports dyspnea on exertion and Denies orthopnea Respiratory Respiratory: Denies cough, Reports dyspnea, Reports dyspnea on exertion and Denies wheezing Gastrointestinal Gastrointestinal: Denies abdominal pain, Denies change in bowel habits, Denies diarrhea, Denies nausea and Denies vomiting Musculoskeletal Musculoskeletal: Denies arthralgias, Denies back pain, Denies neck pain and Denies numbness Integumentary/Breasts Skin/Breast: Denies pruritus, Denies erythema, Denies rash and Denies wounds Neurologic Neurologic: Denies burning sensations, Denies vertigo, Reports dizziness, Denies memory loss, Denies numbness, Denies sensory deficit and Denies weakness Psychiatric Psychiatric: Denies memory loss Endocrine Endocrine: Denies palpitations Allergic/Immunologic Allergic/Immunologic: Denies wheezing Patient History Medical History Anxiety (~2015) Asthma (Unknown) COPD (chronic obstructive pulmonary disease) (~2013) GERD with stricture Hematuria (~2014) Hyperlipidemia (~2015) Insomnia (~2015) TIA (transient ischemic attack) (05/2014) Surgical History No pertinent past surgical history Family History Mother Age: 82 Hypertension Sister Age: 65 Cancer Social History household members: none Smoking Status: Current every day smoker Tobacco: How many years used: 47 quit status: considering quitting second hand exposure: No alcohol intake: former substance use type: does not use Smoking Status: Current every day smoker tobacco type: cigarettes alcohol intake frequency: holidays/special occasions only Substance Use Type: marijuana Exam Initial Vital Signs Initial Vital Signs: Vital Signs Temperature 99.5 F 12/29/20 23:15 Pulse Rate 104 H 12/29/20 23:15 Respiratory Rate 25 H 12/29/20 23:15 Blood Pressure 165/86 H 12/29/20 23:15 Pulse Oximetry 96 12/29/20 23:15 GENERAL: Alert chronically ill 60-year-old male and in no acute distress. HEENT: Head atraumatic,EOMI, pupils reactive, face symmetric, moist mucous membranes CARDIOVASCULAR: Regular rate and rhythm without murmurs, rubs or gallops. RESPIRATORY: Breath sounds equal bilaterally, no wheezes rales or rhonchi. ABDOMEN: Soft, nontender. Normoactive bowel sounds all 4 quadrants. No guarding or rebound. RECTAL: Hemoccult-positive, no hemorrhoids, mild tenderness no gross blood EXTREMITIES: Normal range of motion, no clubbing or edema. Neurovascularly intact NEUROLOGICAL: Alert and oriented x4.Normal gait and speech. SKIN: Warm, dry, no laceration, no petechiae, no rashes or lesions. Course Orders Ordered: ED Orders 12/30/20 00:05 Complete Blood Count AUTO DIFF Stat Comprehensive Metabolic Panel Stat Lactate (Lactic Acid) Stat Lipase Stat Partial Thromboplastin Time Stat Prothrombin Time INR Stat Troponin & CK Cardiac Panel Stat Type and Screen Stat 12/30/20 01:40 COVID19 - ADMIT ([employer] swab/PCR) Stat 12/30/20 01:53 XR chest 1V Stat Acetaminophen (Acetaminophen 325 Mg Tablet) 650 mg PO Q6HR PRN PRN Reason: Fever/Mild Pain (1-3) Al Hydrox/Mg Hydrox/Simethicone (Mag Hydrox/Alum/Simeth 30 Ml Udc) 30 ml PO Q6HR PRN PRN Reason: Dyspepsia Hydromorphone HCl (Hydromorphone 0.5 Mg Inj) 0.5 mg IV Q6H PRN PRN Reason: Pain, Moderate (4-6) Lactated Ringer's (Lactated Ringers) 1,000 mls @ 60 mls/hr IV CONT ROBERT Last Admin: 12/30/20 03:05 Dose: 60 mls/hr Documented by: LOBO Naloxone HCl (Naloxone 0.4 Mg/Ml Vial) 0.2 mg IV Q2MIN PRN PRN Reason: Opiate Reversal Ondansetron HCl (Ondansetron 4 Mg/2 Ml Inj) 4 mg IV Q8HR PRN PRN Reason: Nausea And Vomiting Pantoprazole Sodium (Pantoprazole 40 Mg Vial) 40 mg IV BID ROBERT Discontinued Medications Pantoprazole Sodium (Pantoprazole 40 Mg Vial) 40 mg IV NOW ONE Stop: 12/30/20 00:37 Last Admin: 12/30/20 00:48 Dose: 40 mg Documented by: CRISS Vital Signs Vital signs: Vital Signs - 8 hr 12/29/20 23:15 12/29/20 23:26 12/29/20 23:30 Temperature 99.5 F Pulse Rate 104 H 95 H 89 Respiratory Rate 25 H 17 13 Blood Pressure 165/86 H 127/64 Pulse Oximetry 96 98 97 12/30/20 00:00 12/30/20 00:30 12/30/20 01:00 Temperature Pulse Rate 88 82 80 Respiratory Rate 18 27 H 27 H Blood Pressure 143/69 H 136/63 131/66 Pulse Oximetry 95 97 97 12/30/20 01:30 Temperature Pulse Rate 80 Respiratory Rate 21 Blood Pressure 141/76 H Pulse Oximetry 98 MDM - GI Bleed Lab Data Attestation: I reviewed the patient's lab results. Result diagrams: 12/29/20 23:22 12/29/20 23:22 Labs: Lab Results 12/29/20 12/29/20 12/29/20 Range/Units 23:22 23:22 23:22 WBC 14.8 H (4.5-11.0) X10^3/uL RBC 4.83 (4.5-5.9) X10^6/uL Hgb 13.8 (13.5-17.5) g/dL Hct 42.7 (41-53) % MCV 88.3 (80-100) fL MCH 28.6 (26-34) PG MCHC 32.4 (30-36) % RDW 13.8 (11.6-14.8) % Plt Count 255 (150-400) X10^3/uL Neut % (Auto) 70.8 (50-75) % Lymph % (Auto) 22.8 L (25-40) % [place] % (Auto) 5.4 (3-14) % Eos % (Auto) 0.4 L (2-4) % Baso % (Auto) 0.6 (0-2) % Neut # (Auto) 84146 H (9077-3624) /uL Lymph # (Auto) 3400 (9102-2089) /uL [place] # (Auto) 800 (0-900) /uL Eos # (Auto) 100 (0-450) /uL Baso # (Auto) 100 (0-100) /uL PT 9.5 L (10.1-12.7) SECONDS INR 0.9 (0.9-1.3) APTT 31 (26.4-36.2) SECONDS Sodium 142 (137-145) mmol/L Potassium 4.0 (3.4-5.1) mmol/L Chloride 104 (98-107) mmol/L Carbon Dioxide 31 (22-32) mmol/L BUN 27 H (9-20) mg/dL Creatinine 0.91 (0.66-1.25) mg/dL Estimated GFR > 60.0 (>60) mL/min BUN/Creatinine Ratio 29.7 H (6-22) Glucose 118 H (80-110) mg/dL Lactate (0.7-2.1) mmol/L Calcium 9.6 (8.4-10.2) mg/dL Magnesium (1.6-2.3) mg/dL Total Bilirubin 0.3 (0.2-1.3) mg/dL AST 31 (17-59) IU/L ALT 24 (<50) IU/L Alkaline Phosphatase 84 (38-126) U/L Total Creatine Kinase 40 L (55-170) U/L CK-MB (CK-2) TNP CK-MB (CK-2) Rel Index TNP Troponin I < 0.012 (0.01-0.034) ng/mL Total Protein 7.5 (6.3-8.2) g/dL Albumin 4.3 (3.5-5.0) g/dL Globulin 3.2 (1.7-4.1) g/dL Albumin/Globulin Ratio 1.3 (1.0-2.8) Lipase 284 (23-300) U/L SARS-CoV-2 (PCR) (Negative) Blood Type Antibody Screen 12/29/20 12/29/20 12/29/20 Range/Units 23:22 23:22 23:22 WBC (4.5-11.0) X10^3/uL RBC (4.5-5.9) X10^6/uL Hgb (13.5-17.5) g/dL Hct (41-53) % MCV (80-100) fL MCH (26-34) PG MCHC (30-36) % RDW (11.6-14.8) % Plt Count (150-400) X10^3/uL Neut % (Auto) (50-75) % Lymph % (Auto) (25-40) % [place] % (Auto) (3-14) % Eos % (Auto) (2-4) % Baso % (Auto) (0-2) % Neut # (Auto) (8195-9204) /uL Lymph # (Auto) (9432-9503) /uL [place] # (Auto) (0-900) /uL Eos # (Auto) (0-450) /uL Baso # (Auto) (0-100) /uL PT (10.1-12.7) SECONDS INR (0.9-1.3) APTT (26.4-36.2) SECONDS Sodium (137-145) mmol/L Potassium (3.4-5.1) mmol/L Chloride (98-107) mmol/L Carbon Dioxide (22-32) mmol/L BUN (9-20) mg/dL Creatinine (0.66-1.25) mg/dL Estimated GFR (>60) mL/min BUN/Creatinine Ratio (6-22) Glucose (80-110) mg/dL Lactate 1.8 (0.7-2.1) mmol/L Calcium (8.4-10.2) mg/dL Magnesium 2.1 (1.6-2.3) mg/dL Total Bilirubin (0.2-1.3) mg/dL AST (17-59) IU/L ALT (<50) IU/L Alkaline Phosphatase (38-126) U/L Total Creatine Kinase (55-170) U/L CK-MB (CK-2) CK-MB (CK-2) Rel Index Troponin I (0.01-0.034) ng/mL Total Protein (6.3-8.2) g/dL Albumin (3.5-5.0) g/dL Globulin (1.7-4.1) g/dL Albumin/Globulin Ratio (1.0-2.8) Lipase (23-300) U/L SARS-CoV-2 (PCR) (Negative) Blood Type B Positive Antibody Screen Negative 12/30/20 Range/Units 01:40 WBC (4.5-11.0) X10^3/uL RBC (4.5-5.9) X10^6/uL Hgb (13.5-17.5) g/dL Hct (41-53) % MCV (80-100) fL MCH (26-34) PG MCHC (30-36) % RDW (11.6-14.8) % Plt Count (150-400) X10^3/uL Neut % (Auto) (50-75) % Lymph % (Auto) (25-40) % [place] % (Auto) (3-14) % Eos % (Auto) (2-4) % Baso % (Auto) (0-2) % Neut # (Auto) (8579-3978) /uL Lymph # (Auto) (8492-3786) /uL [place] # (Auto) (0-900) /uL Eos # (Auto) (0-450) /uL Baso # (Auto) (0-100) /uL PT (10.1-12.7) SECONDS INR (0.9-1.3) APTT (26.4-36.2) SECONDS Sodium (137-145) mmol/L Potassium (3.4-5.1) mmol/L Chloride (98-107) mmol/L Carbon Dioxide (22-32) mmol/L BUN (9-20) mg/dL Creatinine (0.66-1.25) mg/dL Estimated GFR (>60) mL/min BUN/Creatinine Ratio (6-22) Glucose (80-110) mg/dL Lactate (0.7-2.1) mmol/L Calcium (8.4-10.2) mg/dL Magnesium (1.6-2.3) mg/dL Total Bilirubin (0.2-1.3) mg/dL AST (17-59) IU/L ALT (<50) IU/L Alkaline Phosphatase (38-126) U/L Total Creatine Kinase (55-170) U/L CK-MB (CK-2) CK-MB (CK-2) Rel Index Troponin I (0.01-0.034) ng/mL Total Protein (6.3-8.2) g/dL Albumin (3.5-5.0) g/dL Globulin (1.7-4.1) g/dL Albumin/Globulin Ratio (1.0-2.8) Lipase (23-300) U/L SARS-CoV-2 (PCR) Negative (Negative) Blood Type Antibody Screen Imaging Data Chest x-ray: Radiologist's Impression: Preliminary report no acute disease in the chest ECG Data Attestation: I personally reviewed and interpreted this ECG as follows: Prior ECG tracings: available for review Interpretation: Normal sinus rhythm rate [address] changes or T-wave inversions MDM Narrative Medical decision making narrative: Patient has had no further episodes of rectal bleeding. He is slightly dizzy and more short of breath than usual however hemoglobin and hematocrit currently are within normal limits and did not require a blood transfusion. Discussion about patient being discharged for versus being placed in observation. At this time with patient's symptoms of dizzy and more short of breath the multiple comorbidities would do better being observed in the hospital. The patient is agreeable to stay. [id number] Dr. Urban, surgery if it patient's symptoms test results and agrees to consultation [id number] Lore CESPEDES obtain patient's symptoms test results and agrees to observation Discharge Plan Departure Patient Disposition: Admitted as Observation Clinical Impression: Acute GI bleeding Admit Date/Time: 12/30/20 01:55 Admit Provider: Lore Rivas
[2020-12-30] VITALS (18 sets, daily range): BP systolic 107–143; BP diastolic 63–91; PULSE 65–88; RESP 17–27; TEMP 36.3–37.1; O2SAT 95–100; BMI 24.0
[2020-12-30 00:20] LABS: Lactate (Lactic Acid) 1.8 mmol/L (0.7-2.1)
[2020-12-30 00:21] LABS: Alanine Aminotransferase 24 IU/L (<50); Albumin 4.3 g/dL (3.5-5.0); Albumin Globulin Ratio 1.3 (1.0-2.8); Alkaline Phosphatase 84 U/L (38-126); Aspartate Aminotransferase 31 IU/L (17-59); BUN Creatinine Ratio 29.7 (6-22); Bilirubin Total 0.3 mg/dL (0.2-1.3); Blood Urea Nitrogen 27 mg/dL (9-20); Calcium 9.6 mg/dL (8.4-10.2); Carbon Dioxide 31 mmol/L (22-32); Chloride 104 mmol/L (98-107); Creatine Kinase 40 U/L (55-170); Estimated Glomerular Filt Rate > 60.0 mL/min (>60); Globulin 3.2 g/dL (1.7-4.1); Glucose 118 mg/dL (80-110); HEMOLYSIS 27 (0-50); Lipase 284 U/L (23-300); Sodium 142 mmol/L (137-145); Total Protein 7.5 g/dL (6.3-8.2)
[2020-12-30 00:23] LABS: Add Manual Diff / Slide Review NO; Basophils Absolute Auto 100 /uL (0-100); Basophils Percent Auto 0.6 % (0-2); Eosinophils Absolute Auto 100 /uL (0-450); Eosinophils Percent Auto 0.4 % (2-4); Hematocrit 42.7 % (41-53); Hemoglobin 13.8 g/dL (13.5-17.5); Lymphocytes Absolute Auto 3400 /uL (1100-4500); Lymphocytes Percent Auto 22.8 % (25-40); Mean Corpuscular HGB Conc 32.4 % (30-36); Mean Corpuscular Hemoglobin 28.6 PG (26-34); Mean Corpuscular Volume 88.3 fL (80-100); Monocytes Absolute Auto 800 /uL (0-900); Monocytes Percent Auto 5.4 % (3-14); Neutrophils Absolute Auto 10500 /uL (1500-7000); Neutrophils Percent Auto 70.8 % (50-75); Platelet Count 255 X10^3/uL (150-400); Red Blood Cell Count 4.83 X10^6/uL (4.5-5.9); Red Cell Distribution Width 13.8 % (11.6-14.8); White Blood Cell Count 14.8 X10^3/uL (4.5-11.0)
[2020-12-30 00:24] LABS: INR 0.9 (0.9-1.3); Prothrombin Time 9.5 SECONDS (10.1-12.7)
[2020-12-30 00:27] LABS: PTT Partial Thromboplastin Tim 31 SECONDS (26.4-36.2)
[2020-12-30 00:32] LABS: Troponin I < 0.012 ng/mL (0.01-0.034)
[2020-12-30] MEDS: PANTOPRAZOLE 40 MG VIAL IV ×3 (00:48→21:55)
--- NOTE | 2020-12-30 01:53 | DI.RAD.S_ITS ---
PROCEDURE: XR CHEST 1V INDICATIONS: sob TECHNIQUE: One view of the chest was acquired. COMPARISON: [facility], CT, CT CHEST WO CON, 11/08/2020, 13:41. [facility], CR, XR CHEST 1V, 01/30/2020, 19:20. FINDINGS: Surgical changes and devices: None. Lungs and pleura: Severe centrilobular emphysema. Lungs are clear. No pleural effusions or pneumothorax. Mediastinum: Mediastinal contours appear normal. Heart size is normal. Bones and chest wall: No suspicious bony lesions. Overlying soft tissues appear unremarkable. IMPRESSION: 1. Severe COPD. 2. No evidence acute pulmonary process. Dictated by: Bay Nguyen M.D. on 12/30/2020 at 6:33 Approved by: Bay Nguyen M.D. on 12/30/2020 at 6:34
--- NOTE | 2020-12-30 02:19 | P.HP_ITS ---
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 He said he had 1 very large bloody bowel movement, followed by jose rectal bleeding with pain to the anus/rectum. He also felt a little dizzy, lightheaded and slightly more short of breath than usual during the event. He is on 81 mg aspirin but no other blood thinners. He does have a history of diverticulitis with strictures but no previous history of GI bleeding or hemorrhage. Patient advised the ED provider that he is unable to have a colonoscopy because he cannot undergo anesthesia secondary to his end-stage COPD. Patient takes simvastatin, abuse oral, clonazepam, Lasix, Spiriva, magnesium, prednisone 5 mg, roflumilast, and Dulera. Patient is a vitals upon admit are stable with a temp of 99.5?, BP 131/66, HR 80, RR 27, O2 saturation 97% on 4 L nc. Patient has mild leukocytosis with a WBC of 14.8 rest of his hematology labs are within normal limits, chemistries are also normal with only a small bump in his BUN of 27. Patient is stable and in no distress at this time and he has had no further episodes of rectal bleeding. Patient currently denies chest pain, shortness of breath, abdominal pain, body aches, chills, fever, nausea. He continues to have rectal discomfort . Patient denies any recent injury, trauma, illness, new medications or changes in foods. Admitted for low lower GI bleed, Dr. Urban notified in ED, consult ordered for tomorrow. Patient History Medical History Anxiety (~2015) Asthma (Unknown) COPD (chronic obstructive pulmonary disease) (~2013) GERD with stricture Hematuria (~2014) Hyperlipidemia (~2015) Insomnia (~2015) TIA (transient ischemic attack) (05/2014) Surgical History No pertinent past surgical history Family & Social History Family History Mother Age: 82 Hypertension Sister Age: 65 Cancer Social History: household members family Safety & Behavioral: Feels Safe in Current Yes Environment Tobacco & Substance use: Smoking Status Current every day smoker alcohol intake former alcohol intake frequency holiday/special occasion Substance Use Type marijuana Meds Home Medications and Allergies Home Medications Medication Instructions Recorded Confirmed Type Spiriva with HandiHaler 18 mcg INH DAILY 06/28/18 12/30/20 History ondansetron 4 mg disintegrating 4 mg PO BID-TID PRN 12/03/18 12/30/20 History tablet acetaminophen 1 dose PO PRN PRN 12/29/18 12/30/20 History cetirizine [All Day Allergy 10 mg PO QPM 12/29/18 12/30/20 History (cetirizine)] ibuprofen 1 dose PO PRN PRN 12/29/18 12/30/20 History magnesium hydroxide 1 dose PO PRN PRN 12/29/18 12/30/20 History montelukast 10 mg PO QPM 12/29/18 12/30/20 History nystatin 100,000 unit/mL oral 5 ml PO QID #200 ml 03/29/19 12/30/20 Rx suspension albuterol sulfate 90 mcg/actuation See Rx Instructions .ROUTE 05/04/19 12/30/20 Rx aerosol inhaler .COMPLEX #18 gram Disabled Parking Permit #1 ea 06/24/19 10/22/20 Rx food supplemt, lactose-reduced See Rx Instructions .ROUTE 01/02/20 10/22/20 Rx .COMPLEX #60 each clonazepam 0.5 mg tablet See Rx Instructions .ROUTE 04/11/20 12/30/20 Rx .COMPLEX #60 tab benzonatate 100 mg capsule 100 mg PO BID-TID #270 cap 05/29/20 12/30/20 Rx simvastatin 20 mg tablet See Rx Instructions .ROUTE 05/29/20 12/30/20 Rx .COMPLEX #90 tablet mometasone-formoterol HFA 200 See Rx Instructions .ROUTE 05/30/20 12/30/20 Rx mcg-5 mcg/actuation aerosol inhaler .COMPLEX #13 gram lisinopril 10 mg tablet See Rx Instructions .ROUTE 09/04/20 12/30/20 Rx .COMPLEX #90 tab aspirin 81 mg PO DAILY 12/30/20 12/30/20 History azithromycin 250 mg PO Q OTHER DAY 12/30/20 12/30/20 History hydrocodone-acetaminophen 1 tab PO Q6H PRN 12/30/20 12/30/20 History ipratropium-albuterol 3 ml INHALATION QID PRN 12/30/20 12/30/20 History levalbuterol HCl 1.25 mg INHALATION Q6HR PRN 12/30/20 12/30/20 History prednisone 20 mg PO DAILY 12/30/20 12/30/20 History sumatriptan succinate 50 mg PO DAILY 12/30/20 12/30/20 History Allergies Allergy/AdvReac Type Severity Reaction Status Date / Time beclomethasone [From QVAR] Allergy Severe tachycardia Verified 10/22/20 14:15 budesonide [From SYMBICORT] Allergy Severe tachycardia Verified 10/22/20 14:15 cinnamon [CINNAMON] Allergy Severe RESP Verified 10/22/20 14:15 PROBLEMS AND SWELLING codeine [CODEINE] Allergy Intermediate violent Verified 10/22/20 14:15 fluticasone [FLUTICASONE] Allergy Intermediate FEELS Verified 10/22/20 14:15 LIKE FIRE IN THE LUNGS Sulfa (Sulfonamide Allergy Intermediate anaphylacti Verified 10/22/20 14:15 Antibiotics) c [SULFA (SULFONAMIDE ANTIBIOTICS)] doxycycline [DOXYCYCLINE] Allergy Mild N/V Verified 10/22/20 14:15 trimethoprim [TRIMETHOPRIM] Allergy Unknown Patient Verified 10/22/20 14:15 can't remember formoterol [From SYMBICORT] AdvReac Severe tachycardia Verified 10/22/20 14:15 Review of Systems Review of Systems ROS: Yes All systems reviewed with the patient and are negative except as otherwise documented Gastrointestinal Gastrointestinal: Reports hematochezia and Reports change in stool character Comments: Mild rectal discomfort. Exam Vital Signs (past 8 hours): - 12/29/20 23:15 12/29/20 23:26 12/29/20 23:30 Temperature 99.5 F Pulse Rate 104 H 95 H 89 Respiratory Rate 25 H 17 13 Blood Pressure 165/86 H 127/64 Pulse Oximetry 96 98 97 12/30/20 00:00 12/30/20 00:30 12/30/20 01:00 Temperature Pulse Rate 88 82 80 Respiratory Rate 18 27 H 27 H Blood Pressure 143/69 H 136/63 131/66 Pulse Oximetry 95 97 97 12/30/20 01:30 12/30/20 02:00 12/30/20 02:13 Temperature Pulse Rate 80 79 76 Respiratory Rate 21 25 H 24 Blood Pressure 141/76 H 126/71 126/71 Pulse Oximetry 98 96 97 Oxygen Delivery Method Nasal Cannula Oxygen Flow Rate 4 Narrative Exam Narrative: General: Patient is a thin male, moderately-nourished looking, in no distress at this time. HEENT: Normocephalic, atraumatic, extraocular muscles intact, oral pharynx is clear and mucous membranes are moist. Neck is supple and symmetric, trachea is midline, no adenopathy, no thyroid enlargement, nontender, no masses palpated. Negative for JVD Lungs: Auscultation of all lung silva are decreased without adventitious sounds, wheezes, rhonchi, or rales. no nasal flaring, retractions, or tachypneic labored Cardio: regular rate and rhythm without murmur, rubs, or gallops, no carotid bruit, no cardiac pulsations present. Abdomen: Soft nontender, negative for organomegaly, or masses. Bowel sounds are present hyperactive in all 4 quadrants without guarding or rebound, no CVA tenderness. Musculoskeletal: Muscle strength and tone are equal within normal limits, no deformity, crepitus, effusions, cyanosis, clubbing or edema present. Full range of motion intact radial and pedal pulses are normal. Skin: Warm dry and intact without rashes, ulcerations or petechiae. Neuro: Alert and orientated x3,sensation to touch intact, no gross deficits noted of cranial nerves. Psych: Patient has a moderate-kept appearance, appropriate affect, mental status attitude thought context and judgment are appropriate for age. Objective Labs Result Diagrams: 12/29/20 23:22 12/29/20 23:22 Labs: Laboratory Results - last 24 hr 12/29/20 12/29/20 12/29/20 23:22 23:22 23:22 WBC 14.8 H RBC 4.83 Hgb 13.8 Hct 42.7 MCV 88.3 MCH 28.6 MCHC 32.4 RDW 13.8 Plt Count 255 Neut % (Auto) 70.8 Lymph % (Auto) 22.8 L [place] % (Auto) 5.4 Eos % (Auto) 0.4 L Baso % (Auto) 0.6 Neut # (Auto) 75891 H Lymph # (Auto) 3400 [place] # (Auto) 800 Eos # (Auto) 100 Baso # (Auto) 100 PT 9.5 L INR 0.9 APTT 31 Sodium 142 Potassium 4.0 Chloride 104 Carbon Dioxide 31 BUN 27 H Creatinine 0.91 Estimated GFR > 60.0 BUN/Creatinine Ratio 29.7 H Glucose 118 H Lactate Calcium 9.6 Total Bilirubin 0.3 AST 31 ALT 24 Alkaline Phosphatase 84 Total Creatine Kinase 40 L CK-MB (CK-2) TNP CK-MB (CK-2) Rel Index TNP Troponin I < 0.012 Total Protein 7.5 Albumin 4.3 Globulin 3.2 Albumin/Globulin Ratio 1.3 Lipase 284 Blood Type Antibody Screen 12/29/20 12/29/20 23:22 23:22 WBC RBC Hgb Hct MCV MCH MCHC RDW Plt Count Neut % (Auto) Lymph % (Auto) [place] % (Auto) Eos % (Auto) Baso % (Auto) Neut # (Auto) Lymph # (Auto) [place] # (Auto) Eos # (Auto) Baso # (Auto) PT INR APTT Sodium Potassium Chloride Carbon Dioxide BUN Creatinine Estimated GFR BUN/Creatinine Ratio Glucose Lactate 1.8 Calcium Total Bilirubin AST ALT Alkaline Phosphatase Total Creatine Kinase CK-MB (CK-2) CK-MB (CK-2) Rel Index Troponin I Total Protein Albumin Globulin Albumin/Globulin Ratio Lipase Blood Type B Positive Antibody Screen Negative Assessment & Plan Assessment & Plan narrative: Mak Oliva is a 60-year-old male with a history of anxiety, GERD with stricture, insomnia, TIA 2013, hypertension, pulmonary nodule, asthma/emphysema/end-stage COPD on oxygen who is admitted for acute lower GI bleed with positive Hemoccult in ED. 1. Acute lower GI bleed, acute, present on admission-stable -as evidence by positive Hemoccult in ED, and reported history of hematochezia without hypotension -comorbidities that complicate or exacerbate anemia condition include coronary artery disease, older patient age, and COPD. -admitting blood pressure 131/66, HR 80, RR 27, O2 saturation 97% on 4L/NC, patient's hematology labs are all within normal limits: RBC 4.83 HGB 13.8, HCT 47.2, MCV 88.3, platelet count 255 -vital signs q.4 hours if stable, call for heart rate> 100, systolic BP< 100, activity-as tolerated with fall precautions, strict I&O Q shift, No VTE/DVT prophylaxis due to bleeding risk. -NPO-until evaluated by Dr. Urban. Patient verbalized that he would not be able to tolerate a colonoscopy due to oxygen demand/instability in relation to his end-stage COPD. I advised patient to discuss with Dr. Urban tomorrow. -patient was typed and cross in ER ( B+) -Protonix 80 mg IV-given in the ED, Protonix 40 IV q.day -initial Protonix 80 mg IV given with evidence of active bleed, hematemesis, or hemodynamically unstable, then progress to 80 mg IV drip -labs ordered CBC, BMP, lactate -consult Dr. Urban for tomorrow -prevention vaccines: Seasonal flu recommended 2. Chronic acute respiratory failure secondary to end-stage COPD/asthma/emphysema that includes the use of home O2 with pulmonary nodule, acute on chronic, present on admission -respiratory consult -continue patient's albuterol, Benzonate, Spiriva, prednisone, Roflumilast, Dulera. -titrate O2 as needed 3. Hypertension in the setting of hyperlipidemia with a history of TIA in 2013, acute on chronic, present on admission -continue patient's simvastatin 4. GERD/history diverticulitis with stricture, chronic, present on admission -patient to get Protonix 40 mg IV q.day 5. Underweight is evidence by BMI of 24.1, acute on chronic, present on admission -patient is malnourished as evidenced by weight loss, and muscle wasting, have ordered evaluation by dietary regarding oral nutritional supplements, will monitor weight. -likely secondary to patient's end-stage COPD and pulmonary nodule-patient has discussed with pulmonology and his primary care and does not wish to proceed further in medical/surgical evaluation, intervention, or treatment. I personally reviewed Family Practice notes of Dr. Nicko Oliva () Code status: DNR Surrogate decision maker: Sister Antonina DANG PCR: Negative VTE/DVT prophylaxis: Contraindicated due to GI bleed, SCDs only Scores GCS [place] coma scale eye opening: Spontaneous [place] coma scale verbal response: Orientated [place] coma scale motor response: Obey commands Maida coma scale total score: 15 CHADS-VASc Congestive heart failure: no Hypertension: no Age 75 years or older: no Diabetes mellitus: no Stroke, TIA, or TE: yes Vascular disease: no Age 65 to 74 years: no Sex category (female): Male CHADS-VASc Score: 2 Wells' Criteria for PE Clinical signs and symptoms of DVT: No PE is #1 Dx or equally likely: No Heart rate > 100: No Immobilization at least 3 days or surg in previous 4 weeks: Yes History of PE or DVT: No Hemoptysis: No Malignancy w/Treatment within 6 months or palliative: No Wells' PE Score total: 1.5
[2020-12-30 02:43] LABS: COVID19 - ADMIT (NP swab/PCR) Negative (Negative)
[2020-12-30 02:53] LABS: Magnesium 2.1 mg/dL (1.6-2.3)
[2020-12-30] MEDS: LACTATED RINGERS 1,000 ML 60 ML IV ×2 (03:05→20:14)
[2020-12-30] MEDS: ACETAMINOPHEN 325 MG TABLET 650 MG PO ×2 (03:16→15:51)
[2020-12-30] MEDS: clonazePAM 0.5 MG TABLET PO ×2 (04:25→15:51)
--- NOTE | 2020-12-30 05:49 | DI.CT.S_ITS ---
PROCEDURE: CT ABDOMEN PELVIS W CON INDICATIONS: gi bleed, ?ischemic colitis TECHNIQUE: After the administration of intravenous contrast, axial sections acquired from the lung bases to the pubic symphysis. Coronal and sagittal reformats were performed. For radiation dose reduction, the following was used: automated exposure control, adjustment of mA and/or kV according to patient size. COMPARISON: [facility], CT, CT CHEST WO CON, 11/08/2020, 13:41. [facility], CT, CT ABDOMEN PELVIS W CON, 02/06/2018, 15:22. FINDINGS: Image quality: Excellent. Lung bases: Severe centrilobular emphysema, better appreciated on the previous chest CT. Heart: No significant findings. ABDOMEN: Liver: Unremarkable. Gallbladder: Unremarkable. Biliary ducts: Unremarkable. Pancreas: Unremarkable. Spleen: Unremarkable. Adrenal Glands: Unremarkable. Kidneys and Ureters: 9 mm maximum diameter nonobstructing right lower pole renal stone. Normal sized kidneys without masses or hydronephrosis. Stomach and Bowel: Normal caliber bowel. No bowel wall thickening. Diffuse diverticulosis without evidence of diverticulitis. Normal appendix. Peritoneum: No abnormal intraperitoneal fluid. No free air. Ventral Wall: No hernias. Abdominal Nodes: No retroperitoneal or mesenteric adenopathy by size criteria. Vessels: Aorta and inferior vena cava are normal in size. Aortic and iliac calcifications. Patent celiac. Mild SMA stenosis. ELENO grossly patent. PELVIS: Pelvic Organs: Unremarkable. Bladder: Unremarkable. Pelvic Nodes: No enlarged lymph nodes. Miscellaneous: No hernias are seen. Bones: Unremarkable. IMPRESSION: 1. Severe centrilobular emphysema, better seen on the chest CT. 2. Diffuse diverticulosis without evidence of diverticulitis. 3. No evidence of ischemic bowel. 4. Atherosclerosis. Mild SMA stenosis. 5. No evidence acute abdominal process. Dictated by: Bay Nguyen M.D. on 12/30/2020 at 9:34 Approved by: Bay Nguyen M.D. on 12/30/2020 at 9:39
[2020-12-30 06:23] LABS: INR 0.9 (0.9-1.3); Prothrombin Time 10.4 SECONDS (10.1-12.7)
[2020-12-30 06:30] LABS: BUN Creatinine Ratio 28.9 (6-22); Blood Urea Nitrogen 26 mg/dL (9-20); Calcium 8.5 mg/dL (8.4-10.2); Carbon Dioxide 30 mmol/L (22-32); Chloride 105 mmol/L (98-107); Estimated Glomerular Filt Rate > 60.0 mL/min (>60); Glucose 93 mg/dL (80-110); HEMOLYSIS < 15 (0-50); Lactate (Lactic Acid) 1.2 mmol/L (0.7-2.1); Potassium 3.8 mmol/L (3.4-5.1); Sodium 140 mmol/L (137-145)
[2020-12-30 06:31] LABS: Add Manual Diff / Slide Review NO; Basophils Absolute Auto 0 /uL (0-100); Basophils Percent Auto 0.4 % (0-2); Eosinophils Absolute Auto 200 /uL (0-450); Eosinophils Percent Auto 1.5 % (2-4); Hematocrit 36.1 % (41-53); Hemoglobin 11.8 g/dL (13.5-17.5); Lymphocytes Absolute Auto 3900 /uL (1100-4500); Lymphocytes Percent Auto 34.3 % (25-40); Mean Corpuscular HGB Conc 32.6 % (30-36); Mean Corpuscular Hemoglobin 28.6 PG (26-34); Mean Corpuscular Volume 87.6 fL (80-100); Monocytes Absolute Auto 600 /uL (0-900); Monocytes Percent Auto 5.2 % (3-14); Neutrophils Absolute Auto 6700 /uL (1500-7000); Neutrophils Percent Auto 58.6 % (50-75); Platelet Count 171 X10^3/uL (150-400); Red Blood Cell Count 4.12 X10^6/uL (4.5-5.9); Red Cell Distribution Width 13.5 % (11.6-14.8); White Blood Cell Count 11.4 X10^3/uL (4.5-11.0)
--- NOTE | 2020-12-30 07:35 | PM.PN.1 ---
Subjective Subjective Date Patient Seen: 12/30/20 Interval history: He is seen in his room here to follow-up his GI bleed and COPD. He has refused/declined a full colonoscopic GI evaluation stating that his COPD will not tolerate something that aggressive. He remarkably still smokes 10 cigarettes per day. He has a home supply of prednisone that he places himself on when he feels like it is necessary and states that he is now on a taper of 20 mg that is supposed to taper down to 10 mg tomorrow. He continues to have obvious rectal bleeding today. He is on 4 L nasal cannula at home for the COPD. His hemoglobin has dropped from 13.8 down to 11.8. Exam Vital Signs (past 8 hours): - 12/30/20 00:00 12/30/20 00:30 12/30/20 01:00 Temperature Pulse Rate 88 82 80 Respiratory Rate 18 27 H 27 H Blood Pressure 143/69 H 136/63 131/66 Pulse Oximetry 95 97 97 12/30/20 01:30 12/30/20 02:00 12/30/20 02:07 Temperature Pulse Rate 80 79 Respiratory Rate 21 25 H Blood Pressure 141/76 H 126/71 Pulse Oximetry 98 96 98 12/30/20 02:13 12/30/20 02:52 Temperature 97.4 F L Pulse Rate 76 74 Respiratory Rate 24 20 Blood Pressure 126/71 122/74 Pulse Oximetry 97 98 Oxygen Delivery Method Nasal Cannula Oxygen Flow Rate 0 Narrative Exam Narrative: He is alert, oriented and cooperative. No apparent distress. Heart is regular rate rhythm without murmur Lungs are clear to auscultation bilaterally although diminished Abdomen is soft, bowel sounds positive, nontender, no organomegaly Extremities have no ankle edema Objective Labs Result Diagrams: 12/30/20 05:55 12/30/20 05:55 Labs: Laboratory Results - last 24 hr 12/29/20 12/29/20 12/29/20 23:22 23:22 23:22 WBC 14.8 H RBC 4.83 Hgb 13.8 Hct 42.7 MCV 88.3 MCH 28.6 MCHC 32.4 RDW 13.8 Plt Count 255 Neut % (Auto) 70.8 Lymph % (Auto) 22.8 L [place] % (Auto) 5.4 Eos % (Auto) 0.4 L Baso % (Auto) 0.6 Neut # (Auto) 04991 H Lymph # (Auto) 3400 [place] # (Auto) 800 Eos # (Auto) 100 Baso # (Auto) 100 PT 9.5 L INR 0.9 APTT 31 Sodium 142 Potassium 4.0 Chloride 104 Carbon Dioxide 31 BUN 27 H Creatinine 0.91 Estimated GFR > 60.0 BUN/Creatinine Ratio 29.7 H Glucose 118 H Lactate Calcium 9.6 Magnesium Total Bilirubin 0.3 AST 31 ALT 24 Alkaline Phosphatase 84 Total Creatine Kinase 40 L CK-MB (CK-2) TNP CK-MB (CK-2) Rel Index TNP Troponin I < 0.012 Total Protein 7.5 Albumin 4.3 Globulin 3.2 Albumin/Globulin Ratio 1.3 Lipase 284 SARS-CoV-2 (PCR) Blood Type Antibody Screen 12/29/20 12/29/20 12/29/20 23:22 23:22 23:22 WBC RBC Hgb Hct MCV MCH MCHC RDW Plt Count Neut % (Auto) Lymph % (Auto) [place] % (Auto) Eos % (Auto) Baso % (Auto) Neut # (Auto) Lymph # (Auto) [place] # (Auto) Eos # (Auto) Baso # (Auto) PT INR APTT Sodium Potassium Chloride Carbon Dioxide BUN Creatinine Estimated GFR BUN/Creatinine Ratio Glucose Lactate 1.8 Calcium Magnesium 2.1 Total Bilirubin AST ALT Alkaline Phosphatase Total Creatine Kinase CK-MB (CK-2) CK-MB (CK-2) Rel Index Troponin I Total Protein Albumin Globulin Albumin/Globulin Ratio Lipase SARS-CoV-2 (PCR) Blood Type B Positive Antibody Screen Negative 12/30/20 12/30/20 12/30/20 01:40 05:55 05:55 WBC 11.4 H RBC 4.12 L Hgb 11.8 L Hct 36.1 L MCV 87.6 MCH 28.6 MCHC 32.6 RDW 13.5 Plt Count 171 Neut % (Auto) 58.6 Lymph % (Auto) 34.3 [place] % (Auto) 5.2 Eos % (Auto) 1.5 L Baso % (Auto) 0.4 Neut # (Auto) 6700 Lymph # (Auto) 3900 [place] # (Auto) 600 Eos # (Auto) 200 Baso # (Auto) 0 PT 10.4 INR 0.9 APTT Sodium Potassium Chloride Carbon Dioxide BUN Creatinine Estimated GFR BUN/Creatinine Ratio Glucose Lactate Calcium Magnesium Total Bilirubin AST ALT Alkaline Phosphatase Total Creatine Kinase CK-MB (CK-2) CK-MB (CK-2) Rel Index Troponin I Total Protein Albumin Globulin Albumin/Globulin Ratio Lipase SARS-CoV-2 (PCR) Negative Blood Type Antibody Screen 12/30/20 12/30/20 05:55 05:55 WBC RBC Hgb Hct MCV MCH MCHC RDW Plt Count Neut % (Auto) Lymph % (Auto) [place] % (Auto) Eos % (Auto) Baso % (Auto) Neut # (Auto) Lymph # (Auto) [place] # (Auto) Eos # (Auto) Baso # (Auto) PT INR APTT Sodium 140 Potassium 3.8 Chloride 105 Carbon Dioxide 30 BUN 26 H Creatinine 0.90 Estimated GFR > 60.0 BUN/Creatinine Ratio 28.9 H Glucose 93 Lactate 1.2 Calcium 8.5 Magnesium Total Bilirubin AST ALT Alkaline Phosphatase Total Creatine Kinase CK-MB (CK-2) CK-MB (CK-2) Rel Index Troponin I Total Protein Albumin Globulin Albumin/Globulin Ratio Lipase SARS-CoV-2 (PCR) Blood Type Antibody Screen [facility] Medical History Anxiety (~2015) Asthma (Unknown) COPD (chronic obstructive pulmonary disease) (~2013) GERD with stricture Hematuria (~2014) Hyperlipidemia (~2015) Insomnia (~2015) TIA (transient ischemic attack) (05/2014) Surgical History No pertinent past surgical history Family History Mother Age: 82 Hypertension Sister Age: 65 Cancer Social History household members: none Smoking Status: Current every day smoker Tobacco: How many years used: 47 quit status: considering quitting second hand exposure: No alcohol intake: former substance use type: does not use Assessment & Plan Assessment & Plan narrative: Mak Oliva is a 60-year-old male with a history of anxiety, GERD with stricture, insomnia, TIA 2013, hypertension, pulmonary nodule, asthma/emphysema/end-stage COPD on oxygen who is admitted for acute lower GI bleed with positive Hemoccult in ED. 1. Acute lower GI bleed, acute, present on admission-stable -hemoccult + and reported history of hematochezia without hypotension -comorbidities that complicate or exacerbate anemia condition include coronary artery disease, older patient age, and COPD. -admitting HGB 13.8, HCT 47.2, MCV 88.3, platelet count 255 -Patient thinks that he would not be able to tolerate a colonoscopy due to oxygen demand/instability in relation to his end-stage COPD. -patient was typed and cross in ER ( B+) -Protonix 80 mg IV-given in the ED, Protonix 40 IV q.day -appreciate surgical consult with Dr. Urban, now pending CT scan. 2. Chronic acute respiratory failure secondary to end-stage COPD/asthma/emphysema that includes the use of home O2 with pulmonary nodule, acute on chronic, present on admission -respiratory consult -continue albuterol, Benzonate, Spiriva, prednisone, Roflumilast, Dulera, prednisone taper of 10 mg starting tomorrow. -titrate O2 as needed 3. Hyperlipidemia with a history of TIA in 2013, acute on chronic, present on admission -continue simvastatin 4. GERD/history diverticulitis with stricture, chronic, present on admission - Protonix 40 mg IV q.day 5. Chronic catabolic state, present on admission. Chronic. -Albumin 4.3 -patient is malnourished as evidenced by weight loss, and muscle wasting, have ordered evaluation by dietary regarding oral nutritional supplements, will monitor weight. -likely secondary to patient's end-stage COPD and pulmonary nodule-patient has discussed with pulmonology and his primary care and does not wish to proceed further in medical/surgical evaluation, intervention, or treatment. Reviewed Family Practice notes of Dr. Nicko Oliva () Code status: DNR Surrogate decision maker: Sister Antonina BOYLEJR PCR: Negative VTE/DVT prophylaxis: Contraindicated due to GI bleed, SCDs only Quality VTE Deep Vein Thrombosis/Pulmonary Embolism Present on Admission: No
--- NOTE | 2020-12-30 07:37 | PC.ADMIT ---
7651 Admission Note: The patient,Mak Rose,60 y/o, was given written information regarding hospital policies, unit procedures and contact persons. Patient's home medications are located in nurse room service server. Pt's various inhalers are located at bedside available for the pt to use, provider aware and OKd. Pt restricted to bedrest, use of BSC pivot as needed. Patient's smoking status: Current every day smoker. Vital Signs - 8 hr 12/30/20 00:00 12/30/20 00:30 12/30/20 01:00 Temperature Pulse Rate 88 82 80 Respiratory Rate 18 27 H 27 H Blood Pressure 143/69 H 136/63 131/66 Pulse Oximetry 95 97 97 12/30/20 01:30 12/30/20 02:00 12/30/20 02:07 Temperature Pulse Rate 80 79 Respiratory Rate 21 25 H Blood Pressure 141/76 H 126/71 Pulse Oximetry 98 96 98 12/30/20 02:13 12/30/20 02:52 Temperature 97.4 F L Pulse Rate 76 74 Respiratory Rate 24 20 Blood Pressure 126/71 122/74 Pulse Oximetry 97 98
--- NOTE | 2020-12-30 08:39 | PM.CN ---
History of Present Illness Consult details Date Patient Seen: 12/30/20 Time Patient Seen: 08:39 Chief complaint: rectal bleeding Reason for consult: GI bleed Requesting provider: Jarrett Isabel Narrative: Episode of bright red blood underwear and toilet. Heme positive stool in ED. Had similar episode 4 years ago. Has such severe COPD (oxygen dependent) that he deems himself unable to tolerated anesthesia or scoping. Meds Home Medications and Allergies Home Medications Medication Instructions Recorded Confirmed Type Spiriva with HandiHaler 18 mcg INH DAILY 06/28/18 12/30/20 History ondansetron 4 mg disintegrating 4 mg PO BID-TID PRN 12/03/18 12/30/20 History tablet acetaminophen 1 dose PO PRN PRN 12/29/18 12/30/20 History cetirizine [All Day Allergy 10 mg PO QPM 12/29/18 12/30/20 History (cetirizine)] ibuprofen 1 dose PO PRN PRN 12/29/18 12/30/20 History magnesium hydroxide 1 dose PO PRN PRN 12/29/18 12/30/20 History montelukast 10 mg PO QPM 12/29/18 12/30/20 History nystatin 100,000 unit/mL oral 5 ml PO QID #200 ml 03/29/19 12/30/20 Rx suspension albuterol sulfate 90 mcg/actuation See Rx Instructions .ROUTE 05/04/19 12/30/20 Rx aerosol inhaler .COMPLEX #18 gram Disabled Parking Permit #1 ea 06/24/19 10/22/20 Rx food supplemt, lactose-reduced See Rx Instructions .ROUTE 01/02/20 10/22/20 Rx .COMPLEX #60 each clonazepam 0.5 mg tablet See Rx Instructions .ROUTE 04/11/20 12/30/20 Rx .COMPLEX #60 tab benzonatate 100 mg capsule 100 mg PO BID-TID #270 cap 05/29/20 12/30/20 Rx simvastatin 20 mg tablet See Rx Instructions .ROUTE 05/29/20 12/30/20 Rx .COMPLEX #90 tablet mometasone-formoterol HFA 200 See Rx Instructions .ROUTE 05/30/20 12/30/20 Rx mcg-5 mcg/actuation aerosol inhaler .COMPLEX #13 gram lisinopril 10 mg tablet See Rx Instructions .ROUTE 02/23/21 06/20/21 Rx .COMPLEX #90 tab aspirin 81 mg PO DAILY 12/30/20 12/30/20 History azithromycin 250 mg PO Q OTHER DAY 12/30/20 12/30/20 History hydrocodone-acetaminophen 1 tab PO Q6H PRN 12/30/20 12/30/20 History ipratropium-albuterol 3 ml INHALATION QID PRN 12/30/20 12/30/20 History levalbuterol HCl 1.25 mg INHALATION Q6HR PRN 12/30/20 12/30/20 History prednisone 20 mg PO DAILY 12/30/20 12/30/20 History sumatriptan succinate 50 mg PO DAILY 12/30/20 12/30/20 History Allergies Allergy/AdvReac Type Severity Reaction Status Date / Time beclomethasone [From QVAR] Allergy Severe tachycardia Verified 10/22/20 14:15 budesonide [From SYMBICORT] Allergy Severe tachycardia Verified 10/22/20 14:15 cinnamon [CINNAMON] Allergy Severe RESP Verified 10/22/20 14:15 PROBLEMS AND SWELLING codeine [CODEINE] Allergy Intermediate violent Verified 10/22/20 14:15 fluticasone [FLUTICASONE] Allergy Intermediate FEELS Verified 10/22/20 14:15 LIKE FIRE IN THE LUNGS Sulfa (Sulfonamide Allergy Intermediate anaphylacti Verified 10/22/20 14:15 Antibiotics) c [SULFA (SULFONAMIDE ANTIBIOTICS)] doxycycline [DOXYCYCLINE] Allergy Mild N/V Verified 10/22/20 14:15 trimethoprim [TRIMETHOPRIM] Allergy Unknown Patient Verified 10/22/20 14:15 can't remember formoterol [From SYMBICORT] AdvReac Severe tachycardia Verified 10/22/20 14:15 Exam Vital Signs (past 8 hours): - 12/30/20 01:00 12/30/20 01:30 12/30/20 02:00 Temperature Pulse Rate 80 80 79 Respiratory Rate 27 H 21 25 H Blood Pressure 131/66 141/76 H 126/71 Pulse Oximetry 97 98 96 12/30/20 02:07 12/30/20 02:13 12/30/20 02:52 Temperature 97.4 F L Pulse Rate 76 74 Respiratory Rate 24 20 Blood Pressure 126/71 122/74 Pulse Oximetry 98 97 98 12/30/20 08:00 Temperature 98.8 F Pulse Rate 71 Respiratory Rate 18 Blood Pressure 107/63 Pulse Oximetry 99 Oxygen Delivery Method Nasal Cannula Oxygen Flow Rate 4 Const General: cooperative and comfortable Nutritional Appearance: well nourished HENFL Head: normal to inspection and atraumatic Eyes Sclera: sclerae normal Neck Neck: trachea midline and supple Resp Effort & Inspection: normal respiratory effort and able to speak in complete sentences Other: nasal cannula O2 Cardio Rate: regular rate Rhythm: regular rhythm GI Palpation: soft and tender (no tenderness) Skin General: no rashes or lesions noted Hair: general thinning Neuro General: patient alert and patient oriented x3 Cognition: normal cognition Extrem General: full ROM Psych Appearance: grossly normal Judgment: judgment good Objective Labs Result Diagrams: 12/30/20 05:55 12/30/20 05:55 Labs: Laboratory Results - last 24 hr 12/29/20 12/29/20 12/29/20 23:22 23:22 23:22 WBC 14.8 H RBC 4.83 Hgb 13.8 Hct 42.7 MCV 88.3 MCH 28.6 MCHC 32.4 RDW 13.8 Plt Count 255 Neut % (Auto) 70.8 Lymph % (Auto) 22.8 L [place] % (Auto) 5.4 Eos % (Auto) 0.4 L Baso % (Auto) 0.6 Neut # (Auto) 60824 H Lymph # (Auto) 3400 [place] # (Auto) 800 Eos # (Auto) 100 Baso # (Auto) 100 PT 9.5 L INR 0.9 APTT 31 Sodium 142 Potassium 4.0 Chloride 104 Carbon Dioxide 31 BUN 27 H Creatinine 0.91 Estimated GFR > 60.0 BUN/Creatinine Ratio 29.7 H Glucose 118 H Lactate Calcium 9.6 Magnesium Total Bilirubin 0.3 AST 31 ALT 24 Alkaline Phosphatase 84 Total Creatine Kinase 40 L CK-MB (CK-2) TNP CK-MB (CK-2) Rel Index TNP Troponin I < 0.012 Total Protein 7.5 Albumin 4.3 Globulin 3.2 Albumin/Globulin Ratio 1.3 Lipase 284 SARS-CoV-2 (PCR) Blood Type Antibody Screen 12/29/20 12/29/20 12/29/20 23:22 23:22 23:22 WBC RBC Hgb Hct MCV MCH MCHC RDW Plt Count Neut % (Auto) Lymph % (Auto) [place] % (Auto) Eos % (Auto) Baso % (Auto) Neut # (Auto) Lymph # (Auto) [place] # (Auto) Eos # (Auto) Baso # (Auto) PT INR APTT Sodium Potassium Chloride Carbon Dioxide BUN Creatinine Estimated GFR BUN/Creatinine Ratio Glucose Lactate 1.8 Calcium Magnesium 2.1 Total Bilirubin AST ALT Alkaline Phosphatase Total Creatine Kinase CK-MB (CK-2) CK-MB (CK-2) Rel Index Troponin I Total Protein Albumin Globulin Albumin/Globulin Ratio Lipase SARS-CoV-2 (PCR) Blood Type B Positive Antibody Screen Negative 12/30/20 12/30/20 12/30/20 01:40 05:55 05:55 WBC 11.4 H RBC 4.12 L Hgb 11.8 L Hct 36.1 L MCV 87.6 MCH 28.6 MCHC 32.6 RDW 13.5 Plt Count 171 Neut % (Auto) 58.6 Lymph % (Auto) 34.3 [place] % (Auto) 5.2 Eos % (Auto) 1.5 L Baso % (Auto) 0.4 Neut # (Auto) 6700 Lymph # (Auto) 3900 [place] # (Auto) 600 Eos # (Auto) 200 Baso # (Auto) 0 PT 10.4 INR 0.9 APTT Sodium Potassium Chloride Carbon Dioxide BUN Creatinine Estimated GFR BUN/Creatinine Ratio Glucose Lactate Calcium Magnesium Total Bilirubin AST ALT Alkaline Phosphatase Total Creatine Kinase CK-MB (CK-2) CK-MB (CK-2) Rel Index Troponin I Total Protein Albumin Globulin Albumin/Globulin Ratio Lipase SARS-CoV-2 (PCR) Negative Blood Type Antibody Screen 12/30/20 12/30/20 05:55 05:55 WBC RBC Hgb Hct MCV MCH MCHC RDW Plt Count Neut % (Auto) Lymph % (Auto) [place] % (Auto) Eos % (Auto) Baso % (Auto) Neut # (Auto) Lymph # (Auto) [place] # (Auto) Eos # (Auto) Baso # (Auto) PT INR APTT Sodium 140 Potassium 3.8 Chloride 105 Carbon Dioxide 30 BUN 26 H Creatinine 0.90 Estimated GFR > 60.0 BUN/Creatinine Ratio 28.9 H Glucose 93 Lactate 1.2 Calcium 8.5 Magnesium Total Bilirubin AST ALT Alkaline Phosphatase Total Creatine Kinase CK-MB (CK-2) CK-MB (CK-2) Rel Index Troponin I Total Protein Albumin Globulin Albumin/Globulin Ratio Lipase SARS-CoV-2 (PCR) Blood Type Antibody Screen Assessment & Plan Assessment & Plan narrative: Acute GI bleed, likely lower given bright red blood. Not actively bleeding. Pulmonary dz to extreme for in Patient's opinion to do procedure and he decline Plan: CT abd and pelvis to evaluate for ischemic colitis or colonic mass. PPI for potential upper GI source. Conservative treatment. If bleeding persist and is large volume, consider transfer for IR intervention. COVID-19 COVID-19 status: Negative Time Spent With Patient Time with patient: 25 - 35 minutes
[2020-12-30] MEDS: NYSTATIN SUSP 500,000 UNIT/5 ML UDC 500000 UNIT PO ×4 (10:05→21:55)
[2020-12-30] MEDS: lisinopriL 10 MG TABLET PO (10:05)
[2020-12-30] MEDS: predniSONE 20 MG TABLET PO (10:07)
--- NOTE | 2020-12-30 10:44 | CM.DANOTE ---
DCP: Case received, EMR reviewed and met with patient. Introduced self and role. Was able to obtain information regarding patient's baseline activity level prior to hospitalization, as well as his current living situation. DCP assessment completed with information currently available. Patient is a 60 year old male who admitted early this morning to the care of the hospitalist team. PCP: Dr. Oliva. Payer: confirmed: Medicare/Medicaid. Patient came to the hospital via private vehicle secondary to having rectal bleeding. Patient has history of diverticulitis, a well as end stage COPD. He is on home oxygen with [facility]. According to notes, patient can't have colonoscopy secondary to his sensitivity to anesthesia due to his COPD. Patient's BMI is 24.1, and a dietary consult has been placed. Patient is here for a work up for GI bleed. Met with patient in his room. He is alert and oriented, was laying in bed. Confirmed with patient that he has home oxygen, and is on 2 liters. He stated that he no longer drives, and has a caregiver named Thais through [employer] that comes in twice a week. She assists with showers, meal preps, cleaning. Patient does have a wheel-chair that he had gotten with [employer], and a cane and walker. He also indicated that he is getting an evaluation for his own wheel-chair. P: DCP to continue to follow. Patient should be able to go home when he is medically stable. Heather Mock RN/Groundman
--- NOTE | 2020-12-30 10:57 | PC.NURSE ---
Pt alert and oriented offers no overt complaint. Dr. Isabel in to see Pt and discuss plan for the day. orders written for CT. Pt sent to CT in w/c with O2 at 4 ltrs. Pt returned and resettled to bed. Up to BSC Mod liquid bloody stool. Reported to Dr. Isabel. Pt resettled to bed.
--- NOTE | 2020-12-30 14:18 | RT ---
Notified by patient that he took his own Dulera 2puffs @ [id number] with [facility].
--- NOTE | 2020-12-30 14:22 | RT ---
Pt was given his own Med of Arie @ 2081 and this med was not showing up on the [facility] respiratory pharmacy was contacted.
[2020-12-30] MEDS: ONDANSETRON 4 MG/2 ML INJ IV (15:51)
[2020-12-30] MEDS: BENZONATATE 100 MG CAPSULE PO (15:51)
[2020-12-30] MEDS: MONTELUKAST 10 MG TABLET PO (17:52)
[2020-12-30] MEDS: ATORVASTATIN 20 MG TABLET 10 MG PO (21:55)
[2020-12-30 23:00] LABS: Hematocrit 37.4 % (41-53); Hemoglobin 11.9 g/dL (13.5-17.5)
[2020-12-31] VITALS (8 sets, daily range): BP systolic 106–150; BP diastolic 60–67; PULSE 65–84; RESP 16–22; TEMP 36.2–36.4; O2SAT 94–98
[2020-12-31] MEDS: ALBUTEROL INH (00:07)
[2020-12-31] MEDS: IPRATROPIUM INH (00:07)
[2020-12-31] MEDS: MOMETASONE FORMOTEROL 2 EACH INH (00:07)
[2020-12-31] MEDS: ACETAMINOPHEN 325 MG TABLET 650 MG PO ×2 (00:59→14:00)
[2020-12-31 05:52] LABS: Prothrombin Time 11.1 SECONDS (10.1-12.7)
[2020-12-31 05:53] LABS: Add Manual Diff / Slide Review NO; Basophils Absolute Auto 0 /uL (0-100); Basophils Percent Auto 0.2 % (0-2); Eosinophils Absolute Auto 100 /uL (0-450); Eosinophils Percent Auto 1.3 % (2-4); Hematocrit 35.8 % (41-53); Hemoglobin 11.9 g/dL (13.5-17.5); Lymphocytes Absolute Auto 3600 /uL (1100-4500); Lymphocytes Percent Auto 33.6 % (25-40); Mean Corpuscular HGB Conc 33.3 % (30-36); Mean Corpuscular Hemoglobin 29.4 PG (26-34); Mean Corpuscular Volume 88.2 fL (80-100); Monocytes Absolute Auto 400 /uL (0-900); Monocytes Percent Auto 3.7 % (3-14); Neutrophils Absolute Auto 6500 /uL (1500-7000); Neutrophils Percent Auto 61.2 % (50-75); Platelet Count 167 X10^3/uL (150-400); Red Blood Cell Count 4.06 X10^6/uL (4.5-5.9); Red Cell Distribution Width 14.1 % (11.6-14.8); White Blood Cell Count 10.7 X10^3/uL (4.5-11.0)
[2020-12-31 06:06] LABS: BUN Creatinine Ratio 18.8 (6-22); Blood Urea Nitrogen 15 mg/dL (9-20); Calcium 8.5 mg/dL (8.4-10.2); Carbon Dioxide 32 mmol/L (22-32); Chloride 104 mmol/L (98-107); Estimated Glomerular Filt Rate > 60.0 mL/min (>60); Glucose 84 mg/dL (80-110); HEMOLYSIS 19 (0-50); Potassium 4.3 mmol/L (3.4-5.1); Sodium 138 mmol/L (137-145)
[2020-12-31 06:15] LABS: NT-proBNP (BNP-Adult 18+) 162 pg/mL (<125)
[2020-12-31] MEDS: ALBUTEROL/IPRATROPIUM 3 ML AMPUL INH (09:05)
[2020-12-31] MEDS: NYSTATIN SUSP 500,000 UNIT/5 ML UDC 500000 UNIT PO ×2 (09:41→14:00)
[2020-12-31] MEDS: PANTOPRAZOLE 40 MG VIAL IV (09:41)
[2020-12-31] MEDS: predniSONE 5 MG TABLET 10 MG PO (09:41)
[2020-12-31] MEDS: lisinopriL 10 MG TABLET PO (09:47)
--- NOTE | 2020-12-31 09:55 | PM.EVENT ---
Event Note Event Note: CT scan reviewed personally and agree, no overt masses and no ischemic colitis. labs reviewed and Hct/hgb are stable. No active bleeding Ok to discharge, surgery will sign off
--- NOTE | 2020-12-31 13:14 | P.DS_ITS ---
History of Present Illness History of Present Illness Date Patient Seen: 12/31/20 Chief complaint: rectal bleeding Narrative: Patient is a 60-year-old male with a history of anxiety, GERD with stricture, insomnia, TIA 2014, hypertension, pulmonary nodule, asthma/emphysema/end-stage COPD on home oxygen who presents with bright red per rectum. He said he had 1 very large bloody bowel movement, followed by jose rectal bleeding with pain to the anus/rectum. He also felt a little dizzy, lightheaded and slightly more short of breath than usual during the event. He is on 81 mg aspirin but no other blood thinners. He does have a history of diverticulitis with strictures but no previous history of GI bleeding or hemorrhage. Patient advised the ED provider that he is unable to have a colonoscopy because he cannot undergo anesthesia secondary to his end-stage COPD. Patient takes simvastatin, abuse oral, clonazepam, Lasix, Spiriva, magnesium, prednisone 5 mg, roflumilast, and Dulera. Patient is a vitals upon admit are stable with a temp of 99.5?, BP 131/66, HR 80, RR 27, O2 saturation 97% on 4 L nc. Patient has mild leukocytosis with a WBC of 14.8 rest of his hematology labs are within normal limits, chemistries are also normal with only a small bump in his BUN of 27. Patient is stable and in no distress at this time and he has had no further episodes of rectal bleeding. Patient currently denies chest pain, shortness of breath, abdominal pain, body aches, chills, fever, nausea. He continues to have rectal discomfort. Patient denies any recent injury, trauma, illness, new medications or changes in foods. Admitted for low lower GI bleed, Dr. Urban notified in ED, consult ordered for tomorrow. Discharge Providers Provider Date of admission: 12/30/20 01:55 Discharge Date: 12/31/20 Primary care physician: Saqib Oliva DO Consults: 12/30/20 02:13 Consult to Dietitian, Adult Routine Comment: Reason For Exam: BMI 24 Consult to Physician Routine Comment: Consulting Provider: Joanne Urban Reason for consultation: GI Bleed Has provider been notified: Yes 12/30/20 02:57 Consult to Dietitian, Adult Routine Comment: placed on a 2200 kcal diet by , unable to do Reason For Exam: not meeting dietary needs at home Discharge provider: Kylie Monsivais MD Summary Hospital Course Discharge Diagnosis: 1. Hematochezia, etiology unclear, CT of the abdomen and pelvis reveals no masses, no evidence of ischemic colitis, no etiology of bleeding 2. Severe COPD 3. GERD 4. Hyperlipidemia 5. Anxiety Hospital Course: Patient was admitted to the hospital for rectal bleeding. He was seen in consultation by General surgery. Patient underwent CT of the abdomen and pelvis which revealed no source of ischemic colitis colonic mass or source of bleeding. Patient was placed on a PPI for upper GI source. As the patient has severe COPD he declined further workup to include anything that would require conscious sedation. I discussed with Dr. eugene then he has partner. They recommended that the patient not be intubated conscious sedation was considered an option provided anesthesia was on standby in the event the patient required noninvasive ventilation. This again was discussed with the patient and he informed me that not than the suggested he have no sedation of any kind. As such the patient will not be having a colonoscopy and will be discharged home. He is continuing to have some rectal bleeding. However his hemoglobin hematocrit remained stable. 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 Status at Discharge Cognitive/behavioral status at discharge: oriented Functional status at discharge: independent ambulation Overall status at discharge: patient is not back to baseline Time Spent with Patient Time spent: Less than 30 minutes Exam Vital Signs (past 8 hours): - 12/31/20 05:38 12/31/20 08:25 12/31/20 08:40 Temperature 97.2 F L 97.4 F L Pulse Rate 65 76 71 Respiratory Rate 16 18 22 Blood Pressure 106/63 150/67 H Pulse Oximetry 94 97 97 12/31/20 09:47 12/31/20 12:15 Temperature 97.6 F Pulse Rate 84 69 Respiratory Rate 18 Blood Pressure 114/60 116/61 Pulse Oximetry 98 Oxygen Delivery Method Nasal Cannula Oxygen Flow Rate 2 Narrative Exam Narrative: Ill-appearing male lying in bed on oxygen Lungs: Decreased breath sounds bilaterally Cardiac exam: Regular rate and rhythm normal S1-S2 Abdomen: Soft, mildly tender, nondistended, no palpable masses, no rebound tenderness no board-like rigidity Extremities: No edema Objective Labs Result Diagrams: 12/31/20 05:10 12/31/20 05:10 Labs: Laboratory Results - last 24 hr 12/30/20 12/31/20 12/31/20 22:54 05:10 05:10 WBC 10.7 RBC 4.06 L Hgb 11.9 L 11.9 L Hct 37.4 L 35.8 L MCV 88.2 MCH 29.4 MCHC 33.3 RDW 14.1 Plt Count 167 Neut % (Auto) 61.2 Lymph % (Auto) 33.6 [place] % (Auto) 3.7 Eos % (Auto) 1.3 L Baso % (Auto) 0.2 Neut # (Auto) 6500 Lymph # (Auto) 3600 [place] # (Auto) 400 Eos # (Auto) 100 Baso # (Auto) 0 PT 11.1 INR 1.0 Sodium Potassium Chloride Carbon Dioxide BUN Creatinine Estimated GFR BUN/Creatinine Ratio Glucose Calcium NT-Pro-B Natriuret Pep 12/31/20 12/31/20 05:10 05:10 WBC RBC Hgb Hct MCV MCH MCHC RDW Plt Count Neut % (Auto) Lymph % (Auto) [place] % (Auto) Eos % (Auto) Baso % (Auto) Neut # (Auto) Lymph # (Auto) [place] # (Auto) Eos # (Auto) Baso # (Auto) PT INR Sodium 138 Potassium 4.3 Chloride 104 Carbon Dioxide 32 BUN 15 Creatinine 0.80 Estimated GFR > 60.0 BUN/Creatinine Ratio 18.8 Glucose 84 Calcium 8.5 NT-Pro-B Natriuret Pep 162 [facility] Medical History Anxiety (~2015) Asthma (Unknown) COPD (chronic obstructive pulmonary disease) (~2013) GERD with stricture Hematuria (~2014) Hyperlipidemia (~2015) Insomnia (~2015) TIA (transient ischemic attack) (05/2014) Surgical History No pertinent past surgical history Family History Mother Age: 82 Hypertension Sister Age: 65 Cancer Social History household members: none Smoking Status: Current every day smoker Tobacco: How many years used: 47 quit status: considering quitting second hand exposure: No alcohol intake: former substance use type: does not use Discharge Assessment & Plan Assessment and Plan Assessment: Hematochezia, etiology unclear, CT of the abdomen and pelvis reveals no masses, no evidence of ischemic colitis, no etiology of bleeding Severe COPD Anxiety Plan of Treatment: Patient will be discharged home He will follow-up with his PCP, and javascript web developer next week. Discharge Plan Discharge Plan Patient Disposition: Home Discharge orders & Medications Prescriptions: New pantoprazole [Protonix] 40 mg tablet,delayed release (DR/EC) 40 mg PO DAILY Qty: 30 RF: 0 Continued albuterol sulfate [Ventolin HFA] 90 mcg/actuation HFA aerosol inhaler See Rx Instructions .ROUTE .COMPLEX Qty: 18 RF: 3 clonazepam 0.5 mg tablet See Rx Instructions .ROUTE .COMPLEX Qty: 60 RF: 1 simvastatin 20 mg tablet See Rx Instructions .ROUTE .COMPLEX Qty: 90 RF: 2 benzonatate 100 mg capsule 100 mg PO BID-TID Qty: 270 RF: 1 Dulera 200-5 mcg/actuation HFA aerosol inhaler See Rx Instructions .ROUTE .COMPLEX Qty: 13 RF: 6 lisinopril 10 mg tablet See Rx Instructions .ROUTE .COMPLEX Qty: 90 RF: 3 ondansetron 4 mg tablet,disintegrating 4 mg PO BID-TID PRN (Reason: Nausea) RF: 0 nystatin 100,000 unit/mL suspension 5 ml PO QID Qty: 200 RF: 0 montelukast 10 mg tablet 10 mg PO QPM RF: 0 acetaminophen 325 mg Tablet 1 dose PO PRN PRN (Reason: pain) RF: 0 magnesium hydroxide 400 mg/5 mL Suspension 1 dose PO PRN PRN (Reason: Indigestion) RF: 0 ibuprofen 200 mg Tablet 1 dose PO PRN PRN (Reason: pain) RF: 0 All Day Allergy (cetirizine) 10 mg capsule 10 mg PO QPM RF: 0 ipratropium-albuterol 0.5 mg-3 mg(2.5 mg base)/3 mL Solution For Nebulization 3 ml INHALATION QID PRN (Reason: wheezing/ SOB) RF: 0 azithromycin 250 mg Tablet 250 mg PO Q OTHER DAY RF: 0 hydrocodone-acetaminophen 5-325 mg Tablet 1 tab PO Q6H PRN (Reason: Pain (Scale Score 4-6)) RF: 0 prednisone 20 mg Tablet 20 mg PO DAILY RF: 0 sumatriptan succinate 50 mg Tablet 50 mg PO DAILY RF: 0 aspirin 81 mg Tablet 81 mg PO DAILY RF: 0 levalbuterol HCl 1.25 mg/3 mL Solution For Nebulization 1.25 mg INHALATION Q6HR PRN (Reason: Wheezing) RF: 0 Spiriva with HandiHaler 18 MCG capsule, w/inhalation device 18 mcg INH DAILY RF: 0 No Action (DME) Disabled Parking Permit Qty: 1 RF: 0 Follow up/Referrals: Saqib Oliva, [Primary Care Provider] - Discharge Health Status Multidrug resistant organism: No MDRO Diet/Activity/Treatments Diet: Diet as Tolerated Skin/Wound/Dressing Care Report to your healthcare provider any signs of infection, such as:: chills, fever and increased pain Discharge Data Primary Care Provider: Saqib Oliva Attending Provider: Lore Rivas VTE Deep Vein Thrombosis/Pulmonary Embolism Present on Admission: No
--- NOTE | 2020-12-31 14:10 | PC.NURSE ---
Discharge note: Discharge instructions given to patient, discussed importance of F/U with PMD, new medication and adherence, signs of worsening symptoms, and home safety. Home with minimal assistance and home O2. Discharge home with Sister via private vehicle.
== END 2020-12-31 14:19 | disposition home or self-care (01) ==
LOC: ED 12-30 00:55 → AC 12-30 02:01
PROVIDERS: Surgery; Admitting Provider Nurse Practitioner Family; Emergency Provider Emergency Medicine; PCP Family Medicine; Referring Provider Emergency Medicine; Visit Provider Nurse Practitioner Family
DX: K62.5 Hemorrhage of anus and rectum (principal); J44.9 Chronic obstructive pulmonary disease, unspecified; Z99.81 Dependence on supplemental oxygen; Z79.82 Long term (current) use of aspirin; K21.9 Gastro-esophageal reflux disease without esophagitis; F41.9 Anxiety disorder, unspecified; Z86.73 Personal history of transient ischemic attack (TIA), and cerebral infarction without residual deficits; I10 Essential (primary) hypertension; E78.5 Hyperlipidemia, unspecified; F17.210 Nicotine dependence, cigarettes, uncomplicated; Z20.822 Contact with and (suspected) exposure to COVID-19
CPT/HCPCS: 36415; 71045; 74177; 80048; 80053; 82550; 83605; 83690; 83735; 83880; 84484; 85014; 85018; 85025; 85610; 85730; 86850; 86900; 86901; 87635; 93005; 93010; 94640; 94760; 96361; 96374; 96375; 99218; 99285; 99406; C9803; G0378; A9270; C9113; J2405; Q9967

== ENCOUNTER → 2021-01-09 12:38 | Outpatient (RCR) | payer MEDICARE, MEDICAID, SELFPAY ==
[2020-12-30 02:25] VITALS: BMI 24.0
== END ==
LOC: OT 12:38
PROVIDERS: PCP Family Medicine; Referring Provider Family Medicine; Visit Provider Family Medicine
DX: J44.1 Chronic obstructive pulmonary disease with (acute) exacerbation (principal); Z74.09 Other reduced mobility

== ENCOUNTER 2021-01-23 09:45 | Emergency (ER) | payer MEDICARE, MEDICAID, SELFPAY ==
[2020-12-30 02:25] VITALS: BMI 24.0
[2021-01-23] VITALS (26 sets, daily range): BP systolic 89–130; BP diastolic 55–69; PULSE 66–83; RESP 10–27; TEMP 36.9; O2SAT 96–99; BMI 24.2
--- NOTE | 2021-01-23 09:49 | DI.RAD.S_ITS ---
PROCEDURE: XR CHEST 1V INDICATIONS: Chest pain and shortness of breath TECHNIQUE: One view of the chest was acquired. COMPARISON: [facility], CR, XR CHEST 1V, 12/30/2020, 1:56. FINDINGS: Surgical changes and devices: None. Lungs and pleura: Lungs are clear. No pleural effusions or pneumothorax. Mediastinum: Mediastinal contours appear normal. Heart size is normal. Bones and chest wall: No suspicious bony lesions. Overlying soft tissues appear unremarkable. IMPRESSION: No evidence acute pulmonary process. Dictated by: Bay Nguyen M.D. on 01/23/2021 at 10:13 Approved by: Bay Nguyen M.D. on 01/23/2021 at 10:13
--- NOTE | 2021-01-23 10:01 | ED.CHESTPAIN ---
HPI - Chest Pain General Chief Complaint: Chest Pain Stated Complaint: left chest pain x45 min Time Seen by Provider: 01/23/21 09:48 History of Present Illness HPI narrative: Patient is a 60-year-old male. History of COPD/emphysema. Is on home oxygen at baseline who is here for evaluation of left-sided chest discomfort. He states that he woke with the symptoms approximately 1 hour ago. They have been consistent since then. It is radiating down his left arm. He has had symptoms similar to this in the past. 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 Also noticed more shortness of breath than normal. Not worse with palpation. Is worse with taking a deep breath. Not worse with movement. Related Data Home Medications Medication Instructions Recorded Confirmed tiotropium bromide 18 mcg capsule 18 mcg INH DAILY 06/28/18 01/02/21 with inhalation device (Spiriva with HandiHaler) ondansetron 4 mg disintegrating 4 mg PO BID-TID PRN 12/03/18 01/02/21 tablet acetaminophen 325 mg tablet 1 dose PO PRN PRN 12/29/18 01/02/21 cetirizine 10 mg capsule (All Day 10 mg PO QPM 12/29/18 01/02/21 Allergy (cetirizine)) ibuprofen 200 mg tablet 1 dose PO PRN PRN 12/29/18 01/02/21 magnesium hydroxide 400 mg/5 mL 1 dose PO PRN PRN 12/29/18 01/02/21 oral suspension montelukast 10 mg tablet 10 mg PO QPM 12/29/18 01/02/21 aspirin 81 mg tablet 81 mg PO DAILY 12/30/20 01/02/21 azithromycin 250 mg tablet 250 mg PO Q OTHER DAY 12/30/20 01/02/21 hydrocodone 5 mg-acetaminophen 325 1 tab PO Q6H PRN 12/30/20 01/02/21 mg tablet ipratropium 0.5 mg-albuterol 3 mg 3 ml INHALATION QID PRN 12/30/20 01/02/21 (2.5 mg base)/3 mL nebulization soln levalbuterol HCl 1.25 mg/3 mL 1.25 mg INHALATION Q6HR PRN 12/30/20 01/02/21 solution for nebulization prednisone 20 mg tablet 20 mg PO DAILY 12/30/20 01/02/21 sumatriptan succinate 50 mg tablet 50 mg PO DAILY 12/30/20 01/02/21 Previous Rx's Medication Instructions Recorded nystatin 100,000 unit/mL oral 5 ml PO QID #200 ml 03/29/19 suspension albuterol sulfate 90 mcg/actuation See Rx Instructions .ROUTE 05/04/19 aerosol inhaler (Ventolin HFA) .COMPLEX #18 gram Disabled Parking Permit #1 ea 06/24/19 benzonatate 100 mg capsule 100 mg PO BID-TID #270 cap 05/29/20 simvastatin 20 mg tablet See Rx Instructions .ROUTE 05/29/20 .COMPLEX #90 tablet mometasone-formoterol HFA 200 See Rx Instructions .ROUTE 05/30/20 mcg-5 mcg/actuation aerosol .COMPLEX #13 gram inhaler (Dulera) lisinopril 10 mg tablet See Rx Instructions .ROUTE 09/04/20 .COMPLEX #90 tab pantoprazole 40 mg tablet,delayed 40 mg PO DAILY #30 tab 12/31/20 release (Protonix) clonazepam 0.5 mg tablet See Rx Instructions .ROUTE 01/10/21 .COMPLEX #60 tab nitroglycerin 0.3 mg sublingual 0.3 mg SUBLINGUAL Q5-15M PRN #20 01/23/21 tablet tab Allergies Allergy/AdvReac Type Severity Reaction Status Date / Time beclomethasone [From QVAR] Allergy Severe tachycardia Verified 01/02/21 11:56 budesonide [From SYMBICORT] Allergy Severe tachycardia Verified 01/02/21 11:56 cinnamon [CINNAMON] Allergy Severe RESP Verified 01/02/21 11:56 PROBLEMS AND SWELLING codeine [CODEINE] Allergy Intermediate violent Verified 01/02/21 11:56 fluticasone [FLUTICASONE] Allergy Intermediate FEELS Verified 01/02/21 11:56 LIKE FIRE IN THE LUNGS Sulfa (Sulfonamide Allergy Intermediate anaphylacti Verified 01/02/21 11:56 Antibiotics) c [SULFA (SULFONAMIDE ANTIBIOTICS)] doxycycline [DOXYCYCLINE] Allergy Mild N/V Verified 01/02/21 11:56 trimethoprim [TRIMETHOPRIM] Allergy Unknown Patient Verified 01/02/21 11:56 can't remember formoterol [From SYMBICORT] AdvReac Severe tachycardia Verified 01/02/21 11:56 Review of Systems Constitutional Constitutional: Reports system reviewed and no additional complaints, except as documented Eyes Eyes: Reports system reviewed and no additional complaints, except as documented Cardiovascular Cardiovascular: Reports as per HPI Respiratory Respiratory: Reports as per HPI Gastrointestinal Gastrointestinal: Denies abdominal pain, Denies nausea and Denies vomiting Musculoskeletal Musculoskeletal: Reports system reviewed and no additional complaints, except as documented Integumentary/Breasts Skin/Breast: Reports system reviewed and no additional complaints, except as documented Neurologic Neurologic: Reports system reviewed and no additional complaints, except as documented Psychiatric Psychiatric: Reports system reviewed and no additional complaints, except as documented Hematologic/Lymphatic On Anticoagulants: No Allergic/Immunologic Allergic/Immunologic: Reports system reviewed and no additional complaints, except as documented Patient History Medical History Anxiety (~2015) Asthma (Unknown) COPD (chronic obstructive pulmonary disease) (~2013) GERD (gastroesophageal reflux disease) GERD with stricture Hematuria (~2014) Hyperlipidemia (~2015) Insomnia (~2015) TIA (transient ischemic attack) (05/2014) Surgical History No pertinent past surgical history Family History Mother Age: 82 Hypertension Sister Age: 65 Cancer Social History household members: none Smoking Status: Current every day smoker Tobacco: How many years used: 47 quit status: considering quitting second hand exposure: No alcohol intake: former substance use type: does not use Smoking Status: Current every day smoker tobacco type: cigarettes alcohol intake frequency: holidays/special occasions only Substance Use Type: marijuana Exam Initial Vital Signs Initial Vital Signs: Vital Signs Pulse Rate 81 01/23/21 09:52 Respiratory Rate 19 01/23/21 09:52 Pulse Oximetry 99 01/23/21 09:52 Const General: cooperative and comfortable HENMT Head: normal to inspection and normocephalic Eyes General: appearance normal, both eyes and all related structures Chest Chest: normal inspection of the chest Resp Effort & Inspection: normal respiratory effort Auscultation: clear to auscultation bilaterally Cardio Rate: regular rate Rhythm: regular rhythm GI Inspection: normal to inspection Palpation: soft Skin General: no rashes or lesions noted Neuro General: patient alert, patient awake and moves all extremities Extrem General: normal to inspection and capillary refill normal Psych Appearance: grossly normal and well kempt Course Orders Ordered: ED Orders 01/23/21 09:49 XR chest 1V Stat 01/23/21 09:53 EKG-12 Lead Stat 01/23/21 10:07 Complete Blood Count AUTO DIFF Stat Comprehensive Metabolic Panel Stat Lipase Stat NT-proBNP (BNP-Adult 18+) Stat Troponin & CK Cardiac Panel Stat 01/23/21 10:10 COVID19 -Nasal swab/Pre-Proc Stat 01/23/21 12:55 Troponin & CK Cardiac Panel Stat Nitroglycerin (Nitroglycerin 0.4 Mg Sl Tab) 0.4 mg SL [id number] PRN PRN Reason: Chest Pain Last Admin: 01/23/21 10:05 Dose: 0.4 mg Documented by: OSCAR Discontinued Medications Aspirin (Aspirin 81 Mg Chew Tab) 324 mg PO NOW ONE Stop: 01/23/21 09:54 Last Admin: 01/23/21 10:03 Dose: 324 mg Documented by: OSCAR Vital Signs Vital signs: Vital Signs - 8 hr 01/23/21 09:52 01/23/21 09:53 01/23/21 09:54 Temperature 98.5 F Pulse Rate 81 82 83 Respiratory Rate 19 17 22 Blood Pressure 130/62 130/62 Pulse Oximetry 99 99 99 01/23/21 10:00 01/23/21 10:03 01/23/21 10:05 Temperature Pulse Rate 79 79 80 Respiratory Rate 16 18 20 Blood Pressure 126/63 124/66 Pulse Oximetry 99 97 97 01/23/21 10:10 01/23/21 10:15 01/23/21 10:20 Temperature Pulse Rate 82 81 80 Respiratory Rate 18 10 L 19 Blood Pressure 101/59 L 90/59 L Pulse Oximetry 98 97 97 01/23/21 10:25 01/23/21 10:30 01/23/21 10:35 Temperature Pulse Rate 77 73 73 Respiratory Rate 19 15 20 Blood Pressure 107/63 98/61 105/61 Pulse Oximetry 97 96 98 01/23/21 10:40 01/23/21 10:45 01/23/21 10:50 Temperature Pulse Rate 75 73 74 Respiratory Rate 23 13 21 Blood Pressure 103/61 104/58 L 105/61 Pulse Oximetry 98 98 97 01/23/21 10:55 01/23/21 11:00 01/23/21 11:01 Temperature Pulse Rate 72 71 71 Respiratory Rate 23 21 19 Blood Pressure 124/60 112/62 Pulse Oximetry 97 98 98 01/23/21 11:05 01/23/21 11:10 01/23/21 11:15 Temperature Pulse Rate 72 70 70 Respiratory Rate 21 16 27 H Blood Pressure 111/62 100/55 L 111/61 Pulse Oximetry 98 98 98 01/23/21 11:30 01/23/21 12:00 01/23/21 12:30 Temperature Pulse Rate 69 68 67 Respiratory Rate 19 20 15 Blood Pressure 113/62 102/58 L 109/61 Pulse Oximetry 98 99 98 01/23/21 13:00 Temperature Pulse Rate 66 Respiratory Rate 14 Blood Pressure 105/59 L Pulse Oximetry 99 MDM - Chest Pain Lab Data Attestation: I reviewed the patient's lab results. Result diagrams: 01/23/21 10:07 01/23/21 10:07 Labs: Lab Results 01/23/21 01/23/21 01/23/21 Range/Units 10:07 10:07 10:07 WBC 9.5 (4.5-11.0) X10^3/uL RBC 4.57 (4.5-5.9) X10^6/uL Hgb 13.0 L (13.5-17.5) g/dL Hct 39.6 L (41-53) % MCV 86.8 (80-100) fL MCH 28.4 (26-34) PG MCHC 32.7 (30-36) % RDW 13.4 (11.6-14.8) % Plt Count 195 (150-400) X10^3/uL Neut % (Auto) 62.3 (50-75) % Lymph % (Auto) 27.4 (25-40) % [place] % (Auto) 5.9 (3-14) % Eos % (Auto) 3.8 (2-4) % Baso % (Auto) 0.6 (0-2) % Neut # (Auto) 5900 (2510-8605) /uL Lymph # (Auto) 2600 (7352-4190) /uL [place] # (Auto) 600 (0-900) /uL Eos # (Auto) 400 (0-450) /uL Baso # (Auto) 100 (0-100) /uL Sodium 143 (137-145) mmol/L Potassium 4.3 (3.4-5.1) mmol/L Chloride 105 (98-107) mmol/L Carbon Dioxide 32 (22-32) mmol/L BUN 23 H (9-20) mg/dL Creatinine 0.92 (0.66-1.25) mg/dL Estimated GFR > 60.0 (>60) mL/min BUN/Creatinine Ratio 25.0 H (6-22) Glucose 103 (80-110) mg/dL Calcium 9.6 (8.4-10.2) mg/dL Total Bilirubin 0.3 (0.2-1.3) mg/dL AST 24 (17-59) IU/L ALT 16 (<50) IU/L Alkaline Phosphatase 61 (38-126) U/L Total Creatine Kinase 51 L (55-170) U/L CK-MB (CK-2) TNP CK-MB (CK-2) Rel Index TNP Troponin I < 0.012 (0.01-0.034) ng/mL NT-Pro-B Natriuret Pep 56 (<125) pg/mL Total Protein 7.4 (6.3-8.2) g/dL Albumin 4.2 (3.5-5.0) g/dL Globulin 3.2 (1.7-4.1) g/dL Albumin/Globulin Ratio 1.3 (1.0-2.8) Lipase 279 (23-300) U/L SARS-CoV-2 (PCR) (Negative) 01/23/21 01/23/21 Range/Units 10:10 12:55 WBC (4.5-11.0) X10^3/uL RBC (4.5-5.9) X10^6/uL Hgb (13.5-17.5) g/dL Hct (41-53) % MCV (80-100) fL MCH (26-34) PG MCHC (30-36) % RDW (11.6-14.8) % Plt Count (150-400) X10^3/uL Neut % (Auto) (50-75) % Lymph % (Auto) (25-40) % [place] % (Auto) (3-14) % Eos % (Auto) (2-4) % Baso % (Auto) (0-2) % Neut # (Auto) (5033-3829) /uL Lymph # (Auto) (2197-3410) /uL [place] # (Auto) (0-900) /uL Eos # (Auto) (0-450) /uL Baso # (Auto) (0-100) /uL Sodium (137-145) mmol/L Potassium (3.4-5.1) mmol/L Chloride (98-107) mmol/L Carbon Dioxide (22-32) mmol/L BUN (9-20) mg/dL Creatinine (0.66-1.25) mg/dL Estimated GFR (>60) mL/min BUN/Creatinine Ratio (6-22) Glucose (80-110) mg/dL Calcium (8.4-10.2) mg/dL Total Bilirubin (0.2-1.3) mg/dL AST (17-59) IU/L ALT (<50) IU/L Alkaline Phosphatase (38-126) U/L Total Creatine Kinase 49 L (55-170) U/L CK-MB (CK-2) TNP CK-MB (CK-2) Rel Index TNP Troponin I < 0.012 (0.01-0.034) ng/mL NT-Pro-B Natriuret Pep (<125) pg/mL Total Protein (6.3-8.2) g/dL Albumin (3.5-5.0) g/dL Globulin (1.7-4.1) g/dL Albumin/Globulin Ratio (1.0-2.8) Lipase (23-300) U/L SARS-CoV-2 (PCR) Negative (Negative) Imaging Data Chest x-ray: Radiologist's Impression: [address] [id number] ReportSigned Patient: Mak Rose [facility]#: [id number]: 1960Acct:[id number]/Sex: 60 / MDate of Service: 01/23/21Loc: EDAccession Number: [id number] Procedure: XR chest 1V Ordering Provider: Elvis Gale D.O. PROCEDURE: XR CHEST 1V INDICATIONS: Chest pain and shortness of breath TECHNIQUE: One view of the chest was acquired. COMPARISON: [facility], CR, XR CHEST 1V, 12/30/2020, 1:56. FINDINGS: Surgical changes and devices: None. Lungs and pleura: Lungs are clear. No pleural effusions or pneumothorax. Mediastinum: Mediastinal contours appear normal. Heart size is normal. Bones and chest wall: No suspicious bony lesions. Overlying soft tissues appear unremarkable. IMPRESSION: No evidence acute pulmonary process. Dictated by: Bay Nguyen M.D. on 01/23/2021 at 10:13 Approved by: Bay Nguyen M.D. on 01/23/2021 at 10:13 ECG Data Attestation: I personally reviewed and interpreted this ECG as follows: Interpretation: Sinus rhythm Normal axis Normal QRS Normal QTC No ST T wave changes MDM Narrative Medical decision making narrative: He does have a non concerning/nonischemic EKG. Troponins are negative x2. Has chronic lung disease and is on oxygen at home on a regular basis. Had a discussion with him regarding options to include being admitted to the hospital for a stress test versus being followed up as an outpatient. Patient states he would not to be admitted to the hospital so he did stay around for the 2nd troponin which is 3 hours after the initial. He states that he cannot do an exercise stress test because of his COPD. Will discharge patient home. Will give a prescription for nitroglycerin to use as needed. Will have him contact his primary doctor/dielectric machine operator for continued risk stratification. He expressed understanding and agreement. Discharge Plan Departure Patient Disposition: Home Clinical Impression: Atypical chest pain Instructions: DI for Atypical Chest Pain Activity Restrictions/Additional Instructions: I recommend that you contact your primary doctor to discuss further risk stratification testing to include a stress test. A prescription for nitroglycerin was transmitted to the pharmacy of your choice. Continue the rest of your medications as directed. Return to the emergency department for any new or worsening symptoms Prescriptions: New nitroglycerin 0.3 mg tablet, sublingual 0.3 mg sublingual Q5-15M PRN (Reason: chest pain) Qty: 20 RF: 0 No Action albuterol sulfate [Ventolin HFA] 90 mcg/actuation HFA aerosol inhaler See Rx Instructions .ROUTE .COMPLEX Qty: 18 RF: 3 (DME) Disabled Parking Permit Qty: 1 RF: 0 simvastatin 20 mg tablet See Rx Instructions .ROUTE .COMPLEX Qty: 90 RF: 2 benzonatate 100 mg capsule 100 mg PO BID-TID Qty: 270 RF: 1 Dulera 200-5 mcg/actuation HFA aerosol inhaler See Rx Instructions .ROUTE .COMPLEX Qty: 13 RF: 6 lisinopril 10 mg tablet See Rx Instructions .ROUTE .COMPLEX Qty: 90 RF: 3 clonazepam 0.5 mg tablet See Rx Instructions .ROUTE .COMPLEX Qty: 60 RF: 1 ondansetron 4 mg tablet,disintegrating 4 mg PO BID-TID PRN (Reason: Nausea) RF: 0 nystatin 100,000 unit/mL suspension 5 ml PO QID Qty: 200 RF: 0 montelukast 10 mg tablet 10 mg PO QPM RF: 0 acetaminophen 325 mg Tablet 1 dose PO PRN PRN (Reason: pain) RF: 0 magnesium hydroxide 400 mg/5 mL Suspension 1 dose PO PRN PRN (Reason: Indigestion) RF: 0 ibuprofen 200 mg Tablet 1 dose PO PRN PRN (Reason: pain) RF: 0 All Day Allergy (cetirizine) 10 mg capsule 10 mg PO QPM RF: 0 ipratropium-albuterol 0.5 mg-3 mg(2.5 mg base)/3 mL Solution For Nebulization 3 ml INHALATION QID PRN (Reason: wheezing/ SOB) RF: 0 azithromycin 250 mg Tablet 250 mg PO Q OTHER DAY RF: 0 hydrocodone-acetaminophen 5-325 mg Tablet 1 tab PO Q6H PRN (Reason: Pain (Scale Score 4-6)) RF: 0 prednisone 20 mg Tablet 20 mg PO DAILY RF: 0 sumatriptan succinate 50 mg Tablet 50 mg PO DAILY RF: 0 aspirin 81 mg Tablet 81 mg PO DAILY RF: 0 levalbuterol HCl 1.25 mg/3 mL Solution For Nebulization 1.25 mg INHALATION Q6HR PRN (Reason: Wheezing) RF: 0 pantoprazole [Protonix] 40 mg tablet,delayed release (DR/EC) 40 mg PO DAILY Qty: 30 RF: 0 Spiriva with HandiHaler 18 MCG capsule, w/inhalation device 18 mcg INH DAILY RF: 0 Referrals: Saqib Oliva, [Primary Care Provider] -
[2021-01-23] MEDS: ASPIRIN 81 MG CHEW TAB 324 MG PO (10:03)
[2021-01-23] MEDS: NITROGLYCERIN 0.4 MG SL TAB SL (10:05)
[2021-01-23 10:13] LABS: Add Manual Diff / Slide Review NO; Basophils Absolute Auto 100 /uL (0-100); Basophils Percent Auto 0.6 % (0-2); Eosinophils Absolute Auto 400 /uL (0-450); Eosinophils Percent Auto 3.8 % (2-4); Hematocrit 39.6 % (41-53); Lymphocytes Absolute Auto 2600 /uL (1100-4500); Lymphocytes Percent Auto 27.4 % (25-40); Mean Corpuscular HGB Conc 32.7 % (30-36); Mean Corpuscular Hemoglobin 28.4 PG (26-34); Mean Corpuscular Volume 86.8 fL (80-100); Monocytes Absolute Auto 600 /uL (0-900); Monocytes Percent Auto 5.9 % (3-14); Neutrophils Absolute Auto 5900 /uL (1500-7000); Neutrophils Percent Auto 62.3 % (50-75); Platelet Count 195 X10^3/uL (150-400); Red Blood Cell Count 4.57 X10^6/uL (4.5-5.9); Red Cell Distribution Width 13.4 % (11.6-14.8); White Blood Cell Count 9.5 X10^3/uL (4.5-11.0)
[2021-01-23 10:25] LABS: Alanine Aminotransferase 16 IU/L (<50); Albumin 4.2 g/dL (3.5-5.0); Albumin Globulin Ratio 1.3 (1.0-2.8); Alkaline Phosphatase 61 U/L (38-126); Aspartate Aminotransferase 24 IU/L (17-59); Bilirubin Total 0.3 mg/dL (0.2-1.3); Blood Urea Nitrogen 23 mg/dL (9-20); Calcium 9.6 mg/dL (8.4-10.2); Carbon Dioxide 32 mmol/L (22-32); Chloride 105 mmol/L (98-107); Creatine Kinase 51 U/L (55-170); Estimated Glomerular Filt Rate > 60.0 mL/min (>60); Globulin 3.2 g/dL (1.7-4.1); Glucose 103 mg/dL (80-110); HEMOLYSIS < 15 (0-50); Lipase 279 U/L (23-300); Potassium 4.3 mmol/L (3.4-5.1); Sodium 143 mmol/L (137-145); Total Protein 7.4 g/dL (6.3-8.2)
[2021-01-23 10:33] LABS: COVID19 -Nasal RAPID Negative (Negative)
[2021-01-23 10:34] LABS: NT-proBNP (BNP-Adult 18+) 56 pg/mL (<125)
[2021-01-23 10:39] LABS: Troponin I < 0.012 ng/mL (0.01-0.034)
--- NOTE | 2021-01-23 10:43 | PC.NURSE ---
pt states that his CP is down to a 5/10 from a 8/10 after one nitro. Pt's BP did drop so MD wishes to hold on additional nirto
[2021-01-23 13:17] LABS: Creatine Kinase 49 U/L (55-170)
[2021-01-23 13:30] LABS: Troponin I < 0.012 ng/mL (0.01-0.034)
== END 2021-01-23 14:00 | disposition home or self-care (01) ==
PROVIDERS: Emergency Provider Emergency Medicine; PCP Family Medicine
DX: R07.89 Other chest pain (principal); R06.02 Shortness of breath; Z20.822 Contact with and (suspected) exposure to COVID-19
CPT/HCPCS: 36415; 71045; 80053; 82550; 83690; 83880; 84484; 85025; 87635; 93005; 93010; 99284; C9803

== ENCOUNTER 2021-03-06 14:25 | Emergency (ER) | payer MEDICARE, MEDICAID, SELFPAY ==
[2021-01-31 12:11] VITALS: BMI 24.0
[2021-03-06 14:29] VITALS: BP 146/77; PULSE 97; RESP 17; TEMP 36.8; O2SAT 100; BMI 23.9
[2021-03-06 14:47] VITALS: PULSE 92; RESP 21; O2SAT 100
[2021-03-06 14:49] VITALS: BP 135/69; PULSE 91; RESP 20; O2SAT 100
[2021-03-06 15:00] VITALS: BP 131/67; PULSE 86; RESP 15; O2SAT 100
--- NOTE | 2021-03-06 15:12 | ED.HA ---
HPI - Headache <Norbreto Nuno PA-C - Last Filed: 03/06/21 15:19> General Chief Complaint: Headache Stated Complaint: Extremely high BP-sent by PCP Time Seen by Provider: 03/06/21 15:02 Mode of arrival: Wheelchair History of Present Illness HPI Narrative: Mak presents today with chief complaint of high blood pressure this morning. He reports that he checks blood pressure 2 times daily because he has chronic hypertension. His value this morning was 170/90. He called his PCP's office and they told him to come into the emergency department for evaluation. He reports that at the time he had a mild headache but that has now resolved. He denies any significant chest pain, difficulty breathing, increased weakness, increased shortness of breath, vision changes or any other acute concerns or complaints at this time. Related Data Home Medications Medication Instructions Recorded Confirmed tiotropium bromide 18 mcg capsule 18 mcg INH DAILY 06/28/18 02/25/21 with inhalation device (Spiriva with HandiHaler) ondansetron 4 mg disintegrating 4 mg PO BID-TID PRN 12/03/18 02/25/21 tablet acetaminophen 325 mg tablet 1 dose PO PRN PRN 12/29/18 02/25/21 cetirizine 10 mg capsule (All Day 10 mg PO QPM 12/29/18 02/25/21 Allergy (cetirizine)) ibuprofen 200 mg tablet 1 dose PO PRN PRN 12/29/18 02/25/21 magnesium hydroxide 400 mg/5 mL 1 dose PO PRN PRN 12/29/18 02/25/21 oral suspension montelukast 10 mg tablet 10 mg PO QPM 12/29/18 02/25/21 aspirin 81 mg tablet 81 mg PO DAILY 12/30/20 02/25/21 azithromycin 250 mg tablet 250 mg PO Q OTHER DAY 12/30/20 02/25/21 hydrocodone 5 mg-acetaminophen 325 1 tab PO Q6H PRN 12/30/20 02/25/21 mg tablet ipratropium 0.5 mg-albuterol 3 mg 3 ml INHALATION QID PRN 12/30/20 02/25/21 (2.5 mg base)/3 mL nebulization soln levalbuterol HCl 1.25 mg/3 mL 1.25 mg INHALATION Q6HR PRN 12/30/20 02/25/21 solution for nebulization sumatriptan succinate 50 mg tablet 50 mg PO DAILY 12/30/20 02/25/21 Previous Rx's Medication Instructions Recorded nystatin 100,000 unit/mL oral 5 ml PO QID #200 ml 03/29/19 suspension albuterol sulfate 90 mcg/actuation See Rx Instructions .ROUTE 05/04/19 aerosol inhaler (Ventolin HFA) .COMPLEX #18 gram Disabled Parking Permit #1 ea 06/24/19 benzonatate 100 mg capsule 100 mg PO BID-TID #270 cap 05/29/20 simvastatin 20 mg tablet See Rx Instructions .ROUTE 05/29/20 .COMPLEX #90 tablet lisinopril 10 mg tablet See Rx Instructions .ROUTE 09/04/20 .COMPLEX #90 tab clonazepam 0.5 mg tablet See Rx Instructions .ROUTE 01/10/21 .COMPLEX #60 tab nitroglycerin 0.3 mg sublingual 0.3 mg SUBLINGUAL Q5-15M PRN #20 01/23/21 tablet tab prednisone 20 mg tablet 20 mg PO DAILY #90 tab 01/31/21 mometasone-formoterol HFA 200 See Rx Instructions .ROUTE 02/11/21 mcg-5 mcg/actuation aerosol .COMPLEX #13 gram inhaler (Dulera) pantoprazole 40 mg tablet,delayed 40 mg PO DAILY #90 tab 02/11/21 release (Protonix) Allergies Allergy/AdvReac Type Severity Reaction Status Date / Time beclomethasone [From QVAR] Allergy Severe tachycardia Verified 03/06/21 14:29 budesonide [From SYMBICORT] Allergy Severe tachycardia Verified 03/06/21 14:29 cinnamon [CINNAMON] Allergy Severe RESP Verified 03/06/21 14:29 PROBLEMS AND SWELLING codeine [CODEINE] Allergy Intermediate violent Verified 03/06/21 14:29 fluticasone [FLUTICASONE] Allergy Intermediate FEELS Verified 03/06/21 14:29 LIKE FIRE IN THE LUNGS Sulfa (Sulfonamide Allergy Intermediate anaphylacti Verified 03/06/21 14:29 Antibiotics) c [SULFA (SULFONAMIDE ANTIBIOTICS)] doxycycline [DOXYCYCLINE] Allergy Mild N/V Verified 03/06/21 14:29 trimethoprim [TRIMETHOPRIM] Allergy Unknown Patient Verified 03/06/21 14:29 can't remember formoterol [From SYMBICORT] AdvReac Severe tachycardia Verified 03/06/21 14:29 Review of Systems <Norberto Nuno PA-C - Last Filed: 03/06/21 15:19> Review of Systems Narrative: As per HPI Patient History <Norberto Nuno PA-C - Last Filed: 03/06/21 15:19> Medical History Anxiety (~2015) Asthma (Unknown) Chest pain COPD (chronic obstructive pulmonary disease) (~2013) GERD (gastroesophageal reflux disease) GERD (gastroesophageal reflux disease) GERD with stricture Hematuria (~2014) Hyperlipidemia (~2015) Insomnia (~2015) TIA (transient ischemic attack) (05/2014) Surgical History No pertinent past surgical history Family History Mother Age: 82 Hypertension Sister Age: 65 Cancer Social History household members: none Smoking Status: Current every day smoker Tobacco: How many years used: 47 quit status: considering quitting second hand exposure: No alcohol intake: former substance use type: does not use Smoking Status: Current every day smoker tobacco type: cigarettes alcohol intake frequency: holidays/special occasions only Substance Use Type: marijuana Exam <Norberto Nuno PA-C - Last Filed: 03/06/21 15:19> Narrative Exam Narrative: Exam Narrative: Const General: cooperative, comfortable, no acute distress, well developed Nutritional Appearance: average body habitus Orientation: alert and oriented x3 HENMT Head: normal to inspection and atraumatic Ears: hearing grossly normal bilaterally Nose: external nose normal and nares normal Face and sinus: normal facial exam Neck Neck: normal visual inspection and supple Resp Effort & Inspection: normal respiratory effort, able to speak in complete sentences, no audible wheezes, not labored, no nasal flaring and no respiratory distress, diminished lung sounds bilaterally Cardiac Regular rate and rhythm, Neuro General: alert, oriented x3, gait normal, tone normal and moves all extremities Cognition: normal cognition Speech: speech normal Gait: normal gait Psych Appearance: grossly normal and well kempt Mental Status: mental status grossly normal Speech and Movement: speech and movement normal Mood: congruent mood Affect: normal affect Initial Vital Signs Initial Vital Signs: Vital Signs Temperature 98.3 F 03/06/21 14:29 Pulse Rate 97 H 03/06/21 14:29 Respiratory Rate 17 03/06/21 14:29 Blood Pressure 146/77 H 03/06/21 14:29 Pulse Oximetry 100 03/06/21 14:29 <Yris Nash MD - Last Filed: 03/06/21 19:42> Initial Vital Signs Initial Vital Signs: Vital Signs Temperature 98.3 F 03/06/21 14:29 Pulse Rate 97 H 03/06/21 14:29 Respiratory Rate 17 03/06/21 14:29 Blood Pressure 146/77 H 03/06/21 14:29 Pulse Oximetry 100 03/06/21 14:29 Course <Norberto Nuno PA-C - Last Filed: 03/06/21 15:19> Vital Signs Vital signs: Vital Signs - 8 hr 03/06/21 14:29 03/06/21 14:47 03/06/21 14:49 Temperature 98.3 F Pulse Rate 97 H 92 H 91 H Respiratory Rate 17 21 20 Blood Pressure 146/77 H 135/69 Pulse Oximetry 100 100 100 03/06/21 15:00 03/06/21 15:22 Temperature Pulse Rate 86 86 Respiratory Rate 15 18 Blood Pressure 131/67 128/63 Pulse Oximetry 100 99 <Yris Nash MD - Last Filed: 03/06/21 19:42> Vital Signs Vital signs: Vital Signs - 8 hr 03/06/21 14:29 03/06/21 14:47 03/06/21 14:49 Temperature 98.3 F Pulse Rate 97 H 92 H 91 H Respiratory Rate 17 21 20 Blood Pressure 146/77 H 135/69 Pulse Oximetry 100 100 100 03/06/21 15:00 03/06/21 15:22 Temperature Pulse Rate 86 86 Respiratory Rate 15 18 Blood Pressure 131/67 128/63 Pulse Oximetry 100 99 MDM - Headache <Norberto Nuno PA-C - Last Filed: 03/06/21 15:19> MDM Narrative Medical decision making narrative: Patient has a reassuring examination and is not currently having any symptoms. Neurologic examination is normal. Recommend PCP follow-up with continued outpatient treatment of his chronic hypertension. I considered TIA, stroke, ACS but think that these are all unlikely at this time. Patient never describes any focal neurologic deficits, worsening chest pain or worsening dyspnea. Discharge Plan Departure Patient Disposition: Home Clinical Impression: Episode of hypertension, Chronic hypertension Activity Restrictions/Additional Instructions: It was very nice to meet you this afternoon. Please continue to take your blood pressures twice daily as your PCP has requested. Recommend taking your normal oral antihypertensives. Return precautions include significant worsening headache, chest pain, worsening shortness of breath, or any other new or worsening complaints. Thank you Norberto Nuno PA-C Prescriptions: No Action albuterol sulfate [Ventolin HFA] 90 mcg/actuation HFA aerosol inhaler See Rx Instructions .ROUTE .COMPLEX Qty: 18 RF: 3 (DME) Disabled Parking Permit Qty: 1 RF: 0 simvastatin 20 mg tablet See Rx Instructions .ROUTE .COMPLEX Qty: 90 RF: 2 benzonatate 100 mg capsule 100 mg PO BID-TID Qty: 270 RF: 1 lisinopril 10 mg tablet See Rx Instructions .ROUTE .COMPLEX Qty: 90 RF: 3 clonazepam 0.5 mg tablet See Rx Instructions .ROUTE .COMPLEX Qty: 60 RF: 1 prednisone 20 mg tablet 20 mg PO DAILY Qty: 90 RF: 2 ondansetron 4 mg tablet,disintegrating 4 mg PO BID-TID PRN (Reason: Nausea) RF: 0 nystatin 100,000 unit/mL suspension 5 ml PO QID Qty: 200 RF: 0 Dulera 200-5 mcg/actuation HFA aerosol inhaler See Rx Instructions .ROUTE .COMPLEX Qty: 13 RF: 6 pantoprazole [Protonix] 40 mg tablet,delayed release (DR/EC) 40 mg PO DAILY Qty: 90 RF: 3 montelukast 10 mg tablet 10 mg PO QPM RF: 0 acetaminophen 325 mg Tablet 1 dose PO PRN PRN (Reason: pain) RF: 0 magnesium hydroxide 400 mg/5 mL Suspension 1 dose PO PRN PRN (Reason: Indigestion) RF: 0 ibuprofen 200 mg Tablet 1 dose PO PRN PRN (Reason: pain) RF: 0 All Day Allergy (cetirizine) 10 mg capsule 10 mg PO QPM RF: 0 ipratropium-albuterol 0.5 mg-3 mg(2.5 mg base)/3 mL Solution For Nebulization 3 ml INHALATION QID PRN (Reason: wheezing/ SOB) RF: 0 azithromycin 250 mg Tablet 250 mg PO Q OTHER DAY RF: 0 hydrocodone-acetaminophen 5-325 mg Tablet 1 tab PO Q6H PRN (Reason: Pain (Scale Score 4-6)) RF: 0 sumatriptan succinate 50 mg Tablet 50 mg PO DAILY RF: 0 aspirin 81 mg Tablet 81 mg PO DAILY RF: 0 levalbuterol HCl 1.25 mg/3 mL Solution For Nebulization 1.25 mg INHALATION Q6HR PRN (Reason: Wheezing) RF: 0 nitroglycerin 0.3 mg tablet, sublingual 0.3 mg sublingual Q5-15M PRN (Reason: chest pain) Qty: 20 RF: 0 Spiriva with HandiHaler 18 MCG capsule, w/inhalation device 18 mcg INH DAILY RF: 0 Referrals: Saqib Oliva DO [Primary Care Provider] - <Yris Nash MD - Last Filed: 03/06/21 19:42> Cosign ED Attending Cosignature Attestation: I was immediately available in the department for consultation throughout this patient's visit. I agree with documentation as above. Yris Nash MD
[2021-03-06 15:22] VITALS: BP 128/63; PULSE 86; RESP 18; O2SAT 99
== END 2021-03-06 15:30 | disposition home or self-care (01) ==
PROVIDERS: Emergency Provider Physician Assistant; PCP Family Medicine
DX: I10 Essential (primary) hypertension (principal); R07.9 Chest pain, unspecified
CPT/HCPCS: 36415; 93005; 93010; 99283; 99284

== ENCOUNTER → 2021-05-23 12:26 | Outpatient (CLI) | payer MEDICARE, MEDICAID, SELFPAY ==
[2021-01-31 12:11] VITALS: BMI 24.0
[2021-05-23 13:07] LABS: Add Manual Diff / Slide Review NO; Basophils Absolute Auto 0 /uL (0-100); Basophils Percent Auto 0.2 % (0-2); Eosinophils Absolute Auto 100 /uL (0-450); Eosinophils Percent Auto 1.1 % (2-4); Hematocrit 40.9 % (41-53); Lymphocytes Absolute Auto 4600 /uL (1100-4500); Lymphocytes Percent Auto 36.2 % (25-40); Mean Corpuscular HGB Conc 31.7 % (30-36); Mean Corpuscular Hemoglobin 26.7 PG (26-34); Mean Corpuscular Volume 84.2 fL (80-100); Monocytes Absolute Auto 700 /uL (0-900); Monocytes Percent Auto 5.7 % (3-14); Neutrophils Absolute Auto 7200 /uL (1500-7000); Neutrophils Percent Auto 56.8 % (50-75); Platelet Count 237 X10^3/uL (150-400); Red Blood Cell Count 4.86 X10^6/uL (4.5-5.9); Red Cell Distribution Width 14.9 % (11.6-14.8); White Blood Cell Count 12.7 X10^3/uL (4.5-11.0)
[2021-05-23 13:26] LABS: Alanine Aminotransferase 21 IU/L (<50); Albumin 4.2 g/dL (3.5-5.0); Albumin Globulin Ratio 1.6 (1.0-2.8); Alkaline Phosphatase 47 U/L (38-126); Aspartate Aminotransferase 27 IU/L (17-59); BUN Creatinine Ratio 23.7 (6-22); Bilirubin Total 0.5 mg/dL (0.2-1.3); Blood Urea Nitrogen 23 mg/dL (9-20); Calcium 9.2 mg/dL (8.4-10.2); Carbon Dioxide 32 mmol/L (22-32); Chloride 101 mmol/L (98-107); Cholesterol 232 mg/dL (140-199); Estimated Glomerular Filt Rate > 60.0 mL/min (>60); Globulin 2.7 g/dL (1.7-4.1); Glucose 87 mg/dL (80-110); HDL Cholesterol 73 mg/dL (40-60); HEMOLYSIS < 15 (0-50); LDL Cholesterol Calculated 123 mg/dL (<100); Potassium 3.9 mmol/L (3.4-5.1); Sodium 140 mmol/L (137-145); Total Protein 6.9 g/dL (6.3-8.2); Triglycerides 182 mg/dL (35-150)
== END ==
PROVIDERS: PCP Family Medicine; Referring Provider Family Medicine; Visit Provider Family Medicine
DX: E78.5 Hyperlipidemia, unspecified (principal); Z12.5 Encounter for screening for malignant neoplasm of prostate; I10 Essential (primary) hypertension; J44.1 Chronic obstructive pulmonary disease with (acute) exacerbation; J44.9 Chronic obstructive pulmonary disease, unspecified; Z12.11 Encounter for screening for malignant neoplasm of colon
CPT/HCPCS: 36415; 80053; 80061; 85025; G0103

== ENCOUNTER 2021-05-26 14:23 | Emergency (ER) | payer MEDICARE, MEDICAID, SELFPAY ==
[2021-01-31 12:11] VITALS: BMI 24.0
[2021-05-26] VITALS (10 sets, daily range): BP systolic 120–140; BP diastolic 67–85; PULSE 93–120; RESP 14–26; TEMP 37.4; O2SAT 95–100
--- NOTE | 2021-05-26 14:34 | DI.RAD.S_ITS ---
PROCEDURE: XR CHEST 1V INDICATIONS: chest pain TECHNIQUE: One view of the chest was acquired. COMPARISON: [facility], CR, XR CHEST 1V, 01/23/2021, 9:54. FINDINGS: Surgical changes and devices: None. Lungs and pleura: Pulmonary hyperinflation and chronic interstitial changes noted. No focal infiltrate, pneumothorax or pleural effusion. Mediastinum: Mediastinal contours appear normal. Heart size is normal. Bones and chest wall: No suspicious bony lesions. Overlying soft tissues appear unremarkable. IMPRESSION: Hyperinflation and chronic interstitial changes without focal infiltrate, pneumothorax or pleural effusion. Approved by: Jason Roberts M.D. on 05/26/2021 at 14:30
[2021-05-26 15:06] LABS: COVID19 -Nasal RAPID Negative (Negative)
[2021-05-26 15:08] LABS: Add Manual Diff / Slide Review NO; Basophils Absolute Auto 100 /uL (0-100); Basophils Percent Auto 0.4 % (0-2); Eosinophils Absolute Auto 0 /uL (0-450); Eosinophils Percent Auto 0.1 % (2-4); Hematocrit 42.3 % (41-53); Hemoglobin 13.7 g/dL (13.5-17.5); Lymphocytes Absolute Auto 1100 /uL (1100-4500); Lymphocytes Percent Auto 7.7 % (25-40); Mean Corpuscular HGB Conc 32.4 % (30-36); Mean Corpuscular Hemoglobin 27.1 PG (26-34); Mean Corpuscular Volume 83.7 fL (80-100); Monocytes Absolute Auto 300 /uL (0-900); Neutrophils Absolute Auto 13100 /uL (1500-7000); Neutrophils Percent Auto 89.8 % (50-75); Platelet Count 232 X10^3/uL (150-400); Red Blood Cell Count 5.06 X10^6/uL (4.5-5.9); Red Cell Distribution Width 14.6 % (11.6-14.8); White Blood Cell Count 14.6 X10^3/uL (4.5-11.0)
[2021-05-26 15:29] LABS: Alanine Aminotransferase 21 IU/L (<50); Albumin 4.4 g/dL (3.5-5.0); Albumin Globulin Ratio 1.4 (1.0-2.8); Alkaline Phosphatase 61 U/L (38-126); Aspartate Aminotransferase 27 IU/L (17-59); BUN Creatinine Ratio 20.4 (6-22); Bilirubin Total 0.4 mg/dL (0.2-1.3); Blood Urea Nitrogen 21 mg/dL (9-20); Calcium 9.9 mg/dL (8.4-10.2); Carbon Dioxide 30 mmol/L (22-32); Chloride 100 mmol/L (98-107); Creatine Kinase 44 U/L (55-170); Estimated Glomerular Filt Rate > 60.0 mL/min (>60); Globulin 3.1 g/dL (1.7-4.1); Glucose 113 mg/dL (80-110); HEMOLYSIS < 15 (0-50); Lipase 294 U/L (23-300); Potassium 4.5 mmol/L (3.4-5.1); Sodium 137 mmol/L (137-145); Total Protein 7.5 g/dL (6.3-8.2)
[2021-05-26 15:41] LABS: Troponin I < 0.012 ng/mL (0.01-0.034)
--- NOTE | 2021-05-26 15:45 | ED_ITS ---
HPI - Arrhythmia/Palpitations General Chief Complaint: Arrhythmia/Palpitations Stated Complaint: heart rate high, something going on with head Time Seen by Provider: 05/26/21 15:44 Source: patient Mode of arrival: Wheelchair Limitations: no limitations History of Present Illness HPI narrative: This is a 60-year-old male with multiple complaints. Patient states his heart rate has been elevated the last few days sometimes up to 115 typically 95-115 range. He states it will feel fast to him. This can happen at intermittent times sometimes he feels lightheaded and a bit of a pressure in his head. He has also has spasms in his lower extremities which he states have been chronic but have been increasing in frequency and can range from his knees down to his feet. He has been told he does not have neuropathy and seen a neurologist but he does sometimes have sensation changes in both his hands and his feet and a burning sensation on his palms and feet. Patient denies any new swelling in his legs. No redness, warmth or other skin changes. He denies any chest pain or pressure. He has had a little bit of shortness of breath but has not required an increase in his O2. He states he is typically around 96-99% recently. He does have longstanding COPD and is on home O2. He denies fevers or chills. Nine he had some mild nausea but has not had any diarrhea constipation. He is at the end of a prednisone taper and was put on 40 mg 3 weeks ago. He had 40 mg x 4 days and then has been slowly dropping by 10 mg weekly. His last 10 mg dose is tomorrow there is not a plan to drop to 5 mg but he states he is able to do so if needed. Related Data Home Medications Medication Instructions Recorded Confirmed tiotropium bromide 18 mcg capsule 18 mcg INH DAILY 06/28/18 05/13/21 with inhalation device (Spiriva with HandiHaler) ondansetron 4 mg disintegrating 4 mg PO BID-TID PRN 12/03/18 05/13/21 tablet acetaminophen 325 mg tablet 1 dose PO PRN PRN 12/29/18 05/13/21 ibuprofen 200 mg tablet 1 dose PO PRN PRN 12/29/18 05/13/21 magnesium hydroxide 400 mg/5 mL 1 dose PO PRN PRN 12/29/18 05/13/21 oral suspension montelukast 10 mg tablet 10 mg PO QPM 12/29/18 05/13/21 aspirin 81 mg tablet 81 mg PO DAILY 12/30/20 05/13/21 levalbuterol HCl 1.25 mg/3 mL 1.25 mg INHALATION Q6HR PRN 12/30/20 05/13/21 solution for nebulization sumatriptan succinate 50 mg tablet 50 mg PO DAILY 12/30/20 05/13/21 ipratropium 0.5 mg-albuterol 3 mg 3 ml INHALATION BID PRN ml 05/13/21 05/13/21 (2.5 mg base)/3 mL nebulization soln prednisone 20 mg tablet 40 mg PO DAILY tab 05/13/21 05/13/21 Previous Rx's Medication Instructions Recorded nystatin 100,000 unit/mL oral 5 ml PO QID #200 ml 03/29/19 suspension albuterol sulfate 90 mcg/actuation See Rx Instructions .ROUTE 05/04/19 aerosol inhaler (Ventolin HFA) .COMPLEX #18 gram Disabled Parking Permit #1 ea 06/24/19 lisinopril 10 mg tablet See Rx Instructions .ROUTE 09/04/20 .COMPLEX #90 tab clonazepam 0.5 mg tablet See Rx Instructions .ROUTE 01/10/21 .COMPLEX #60 tab nitroglycerin 0.3 mg sublingual 0.3 mg SUBLINGUAL Q5-15M PRN #20 01/23/21 tablet tab mometasone-formoterol HFA 200 See Rx Instructions .ROUTE 02/11/21 mcg-5 mcg/actuation aerosol .COMPLEX #13 gram inhaler (Dulera) pantoprazole 40 mg tablet,delayed 40 mg PO DAILY #90 tab 02/11/21 release (Protonix) simvastatin 20 mg tablet See Rx Instructions .ROUTE 03/12/21 .COMPLEX #90 tablet benzonatate 100 mg capsule 100 mg PO BID-TID #270 cap 03/14/21 Allergies Allergy/AdvReac Type Severity Reaction Status Date / Time cinnamon [CINNAMON] Allergy Severe RESP Verified 05/13/21 13:13 PROBLEMS AND SWELLING Sulfa (Sulfonamide Allergy Severe anaphylacti Verified 05/26/21 16:00 Antibiotics) c [SULFA (SULFONAMIDE ANTIBIOTICS)] fluticasone [FLUTICASONE] Allergy Intermediate FEELS Verified 05/13/21 13:13 LIKE FIRE IN THE LUNGS trimethoprim [TRIMETHOPRIM] Allergy Unknown Patient Verified 05/13/21 13:13 can't remember beclomethasone [From QVAR] AdvReac Severe tachycardia Verified 05/26/21 16:00 budesonide [From SYMBICORT] AdvReac Severe tachycardia Verified 05/26/21 16:00 formoterol [From SYMBICORT] AdvReac Severe tachycardia Verified 05/13/21 13:13 codeine [CODEINE] AdvReac Intermediate violent Verified 05/26/21 16:00 doxycycline [DOXYCYCLINE] AdvReac Mild N/V Verified 05/26/21 16:00 Review of Systems Review of Systems ROS Unobtainable: All systems reviewed & are unremarkable except as noted in HPI and below Patient History Medical History (Updated 05/26/21 @ 17:33 by Vaishnavi Hinson DO) Anxiety (~2015) Asthma (Unknown) Chest pain COPD (chronic obstructive pulmonary disease) (~2013) GERD (gastroesophageal reflux disease) GERD (gastroesophageal reflux disease) GERD with stricture Hematuria (~2014) Hyperlipidemia (~2015) Insomnia (~2015) TIA (transient ischemic attack) (05/2014) Surgical History No pertinent past surgical history Family History Mother Age: 82 Hypertension Sister Age: 65 Cancer Social History household members: none Smoking Status: Current every day smoker Tobacco: How many years used: 47 quit status: considering quitting second hand exposure: No alcohol intake: former substance use type: does not use Smoking Status: Current every day smoker tobacco type: cigarettes alcohol intake frequency: holidays/special occasions only Substance Use Type: marijuana Exam Narrative Exam Narrative: GENERAL: Alert and oriented x three, male in mild distress. HEENT: Head normocephalic, atraumatic, EOMI, pupils reactive, face symmetric, moist mucous membranes NECK: Supple, full range of motion CARDIOVASCULAR: Regular rate and rhythm without murmurs, rubs or gallops. RESPIRATORY: Breath sounds equal bilaterally, positive mild bilateral wheezes, no rales or rhonchi. No tachypnea or accessory muscle use. ABDOMEN: Soft, nontender. Normoactive bowel sounds all 4 quadrants. No guarding or rebound, rigidity, no mass : No CVA tenderness EXTREMITIES: Normal range of motion, no clubbing or edema. Neurovascularly intact NEUROLOGICAL: Cranial nerves II through XII grossly intact. Moving all extremities SKIN: Warm, dry, no petechiae, no rashes or lesions. Initial Vital Signs Initial Vital Signs: Vital Signs Temperature 99.4 F 05/26/21 14:27 Pulse Rate 120 H 05/26/21 14:27 Respiratory Rate 24 05/26/21 14:27 Blood Pressure 140/85 05/26/21 14:27 Pulse Oximetry 100 05/26/21 14:27 Course Orders Ordered: ED Orders 05/26/21 14:34 XR chest 1V Stat EKG-12 Lead Stat 05/26/21 14:43 COVID19 -Nasal swab/Pre-Proc Stat Respiratory Panel (Film Array) Stat 05/26/21 14:53 Complete Blood Count AUTO DIFF Stat Comprehensive Metabolic Panel Stat D Dimer Stat Lipase Stat NT-proBNP (BNP-Adult 18+) Stat Troponin & CK Cardiac Panel Stat Discontinued Medications Albuterol/Ipratropium (Albuterol/Ipratropium 3 Ml Ampul) 3 ml INH NOW ONE Stop: 05/26/21 15:59 Last Admin: 05/26/21 16:42 Dose: 3 ml Documented by: NIESHA Vital Signs Vital signs: Vital Signs - 8 hr 05/26/21 14:27 05/26/21 14:47 05/26/21 14:49 Temperature 99.4 F Pulse Rate 120 H 110 H 110 H Respiratory Rate 24 23 24 Blood Pressure 140/85 131/67 Pulse Oximetry 100 98 99 05/26/21 15:00 05/26/21 15:30 05/26/21 16:00 Temperature Pulse Rate 106 H 99 H 98 H Respiratory Rate 24 26 H 21 Blood Pressure Pulse Oximetry 99 97 97 05/26/21 16:30 05/26/21 16:53 05/26/21 17:00 Temperature Pulse Rate 93 H 104 H 103 H Respiratory Rate 14 22 22 Blood Pressure 120/73 122/74 Pulse Oximetry 98 98 98 05/26/21 17:30 Temperature Pulse Rate 95 H Respiratory Rate 22 Blood Pressure 132/69 Pulse Oximetry 98 MDM - Arrhythmia/Palpitations Lab Data Result diagrams: 05/26/21 14:53 05/26/21 14:53 Labs: Lab Results 05/26/21 05/26/21 05/26/21 Range/Units 14:43 14:43 14:53 WBC 14.6 H (4.5-11.0) X10^3/uL RBC 5.06 (4.5-5.9) X10^6/uL Hgb 13.7 (13.5-17.5) g/dL Hct 42.3 (41-53) % MCV 83.7 (80-100) fL MCH 27.1 (26-34) PG MCHC 32.4 (30-36) % RDW 14.6 (11.6-14.8) % Plt Count 232 (150-400) X10^3/uL Neut % (Auto) 89.8 H (50-75) % Lymph % (Auto) 7.7 L (25-40) % [place] % (Auto) 2.0 L (3-14) % Eos % (Auto) 0.1 L (2-4) % Baso % (Auto) 0.4 (0-2) % Neut # (Auto) 01347 H (7630-3714) /uL Lymph # (Auto) 1100 (2000-0782) /uL [place] # (Auto) 300 (0-900) /uL Eos # (Auto) 0 (0-450) /uL Baso # (Auto) 100 (0-100) /uL D-Dimer (<230) ng/mL Sodium (137-145) mmol/L Potassium (3.4-5.1) mmol/L Chloride (98-107) mmol/L Carbon Dioxide (22-32) mmol/L BUN (9-20) mg/dL Creatinine (0.66-1.25) mg/dL Estimated GFR (>60) mL/min BUN/Creatinine Ratio (6-22) Glucose (80-110) mg/dL Calcium (8.4-10.2) mg/dL Total Bilirubin (0.2-1.3) mg/dL AST (17-59) IU/L ALT (<50) IU/L Alkaline Phosphatase (38-126) U/L Total Creatine Kinase (55-170) U/L CK-MB (CK-2) CK-MB (CK-2) Rel Index Troponin I (0.01-0.034) ng/mL NT-Pro-B Natriuret Pep (<125) pg/mL Total Protein (6.3-8.2) g/dL Albumin (3.5-5.0) g/dL Globulin (1.7-4.1) g/dL Albumin/Globulin Ratio (1.0-2.8) Lipase (23-300) U/L Chlamy pneumoniae PCR Not detected (Not Detect) Adenovirus (PCR) Not detected (Not Detect) B. pertussis DNA (PCR) Not detected (Not Detecte) B.parapertussis DNA PCR Not detected (Not Detecte) Coronavirus OC43 (PCR) Not detected (Not Detect) Coronavirus HKU1 (PCR) Not detected (Not Detect) Coronavirus 229E (PCR) Not detected (Not Detect) SARS-CoV-2 (PCR) Negative Not detected (Negative) Coronavirus NL63 (PCR) Not detected (Not Detect) Human Metapneumovir PCR Not detected (Not Detect) Influenza Type A (PCR) Not detected (Not Detect) Influenza Type B (PCR) Not detected (Not Detect) M. pneumoniae (PCR) Not detected (Not Detect) Parainfluenza 1 (PCR) Not detected (Not Detect) Parainfluenza 2 (PCR) Not detected (Not Detect) Parainfluenza 3 (PCR) Not detected (Not Detect) Parainfluenza 4 (PCR) Not detected (Not Detect) RSV (PCR) Not detected (Not Detect) Entero/Rhino (PCR) Not detected (Not Detect) 05/26/21 05/26/21 05/26/21 Range/Units 14:53 14:53 14:53 WBC (4.5-11.0) X10^3/uL RBC (4.5-5.9) X10^6/uL Hgb (13.5-17.5) g/dL Hct (41-53) % MCV (80-100) fL MCH (26-34) PG MCHC (30-36) % RDW (11.6-14.8) % Plt Count (150-400) X10^3/uL Neut % (Auto) (50-75) % Lymph % (Auto) (25-40) % [place] % (Auto) (3-14) % Eos % (Auto) (2-4) % Baso % (Auto) (0-2) % Neut # (Auto) (0712-1546) /uL Lymph # (Auto) (7317-7436) /uL [place] # (Auto) (0-900) /uL Eos # (Auto) (0-450) /uL Baso # (Auto) (0-100) /uL D-Dimer < 200 (<230) ng/mL Sodium 137 (137-145) mmol/L Potassium 4.5 (3.4-5.1) mmol/L Chloride 100 (98-107) mmol/L Carbon Dioxide 30 (22-32) mmol/L BUN 21 H (9-20) mg/dL Creatinine 1.03 (0.66-1.25) mg/dL Estimated GFR > 60.0 (>60) mL/min BUN/Creatinine Ratio 20.4 (6-22) Glucose 113 H (80-110) mg/dL Calcium 9.9 (8.4-10.2) mg/dL Total Bilirubin 0.4 (0.2-1.3) mg/dL AST 27 (17-59) IU/L ALT 21 (<50) IU/L Alkaline Phosphatase 61 (38-126) U/L Total Creatine Kinase 44 L (55-170) U/L CK-MB (CK-2) TNP CK-MB (CK-2) Rel Index TNP Troponin I < 0.012 (0.01-0.034) ng/mL NT-Pro-B Natriuret Pep 44 (<125) pg/mL Total Protein 7.5 (6.3-8.2) g/dL Albumin 4.4 (3.5-5.0) g/dL Globulin 3.1 (1.7-4.1) g/dL Albumin/Globulin Ratio 1.4 (1.0-2.8) Lipase 294 (23-300) U/L Chlamy pneumoniae PCR (Not Detect) Adenovirus (PCR) (Not Detect) B. pertussis DNA (PCR) (Not Detecte) B.parapertussis DNA PCR (Not Detecte) Coronavirus OC43 (PCR) (Not Detect) Coronavirus HKU1 (PCR) (Not Detect) Coronavirus 229E (PCR) (Not Detect) SARS-CoV-2 (PCR) (Negative) Coronavirus NL63 (PCR) (Not Detect) Human Metapneumovir PCR (Not Detect) Influenza Type A (PCR) (Not Detect) Influenza Type B (PCR) (Not Detect) M. pneumoniae (PCR) (Not Detect) Parainfluenza 1 (PCR) (Not Detect) Parainfluenza 2 (PCR) (Not Detect) Parainfluenza 3 (PCR) (Not Detect) Parainfluenza 4 (PCR) (Not Detect) RSV (PCR) (Not Detect) Entero/Rhino (PCR) (Not Detect) Imaging Data Chest x-ray: Radiologist's Impresson: Mak Rose??60??M??1960 ? Allergy/Adv: cinnamon, Sulfa (Sulfonamide Antibiotics), fluticasone, trimetho prim, beclomethasone, budesonide, formoterol, codeine, doxycycline (More??) Close Chest X-Ray (Signed) Jason Roberts - 05/26/21 Chest X-Ray (Signed) Bay Nguyen - 01/23/21 Abdomen/Pelvis CT (Signed) Bay Nguyen - 12/30/20 Telemetry Strips 12/30/20 Chest X-Ray (Signed) Bay Nguyen - 12/30/[address] (Signed) Ollie Gómez - 11/08/20 Radiology - Historical 05/24/20 Radiology - Historical 05/24/20 Radiology - Historical 05/24/20 Radiology - Historical 05/24/20 Chest X-Ray (Signed) Lianet Cleis - 01/30/20 Telemetry Strips 01/30/[address] (Signed) Yadira Giraldo - 08/04/19 Lumbar Spine X-Ray (Signed) Giuseppe Fonseca - 06/30/19 Hip X-Ray (Signed) Giuseppe Fonseca - 06/30/19 Chest X-Ray (Signed) Pancho Adame - 05/04/19 Chest X-Ray (Signed) Bay Nguyen - 04/15/19 Chest CTA (Signed) Pernell Adams - 02/02/19 Chest X-Ray (Signed) Giuseppe Fonseca - 02/02/19 Telemetry Strips 02/02/19 Chest X-Ray (Signed) Peter Stover - 12/29/18 Chest X-Ray (Signed) Lianet Celis - 11/30/18 Abdomen Ultrasound (Signed) Ollie Gómez - 09/23/18 Chest X-Ray (Signed) NateGustavo - 06/28/18 Chest X-Ray (Signed) Lianet Celis - 06/10/[address] (Signed) Saurav Padilla - 05/07/18 Chest X-Ray (Signed) Rosendo Mac - 03/10/18 Chest/Abdomen X-ray (Signed) Lianet Celis - 02/06/18 Abdomen/Pelvis CT (Signed) Daphne Redd - 02/06/[address] (Signed) Rosendo Mac - 01/27/18 [address]?[place] [address] XRay Report Signed Patient: Mak Rose MR#: [id number] : 1960 Acct:[id number] Age/Sex: 60 / M Date of Service: 05/26/21 Loc: ED Accession Number: [id number] ?? Procedure: XR chest 1V Ordering Provider: Vaishnavi Hinson D.O. PROCEDURE:? XR CHEST 1V ? INDICATIONS:? chest pain ? TECHNIQUE:? One view of the chest was acquired.? ? COMPARISON:? [facility], , XR CHEST 1V, 01/23/2021, 9:54. ? FINDINGS:? ? Surgical changes and devices:? None.? ? Lungs and pleura:? Pulmonary hyperinflation and chronic interstitial changes noted.? No focal infiltrate, pneumothorax or pleural effusion. ? Mediastinum:? Mediastinal contours appear normal.? Heart size is normal.? ? Bones and chest wall:? No suspicious bony lesions.? Overlying soft tissues appear unremarkable.? ? IMPRESSION:? Hyperinflation and chronic interstitial changes without focal infiltrate, pneumothorax or pleural effusion. ? ? ? Approved by: Jason Roberts M.D. on 05/26/2021 at 14:30? ECG Data Attestation: I personally reviewed and interpreted this ECG as follows: Prior ECG tracings: available for review Interpretation: Sinus tachycardia rate of 104 W[place] 142 QRS 88 QTC 405. Patient has prior from 03/06/2021 which appears similar with no acute changes. [facility] Narrative Medical decision making narrative: Patient refused DVT ultrasound. The tech had asked him to put his mask on and he refuses to wear it. Discussed with patient his labs he has a mild leukocytosis this could be secondary to prednisone. His labs otherwise are reassuring as hyperinflation on his chest x-ray but no other acute changes. D-dimer is negative. We are going to obtain ultrasound of bilateral lower extremities but patient refused this. Patient does not have any new swelling and has more of spasms and some ne uropathy type changes that he also describes in his hand intermittently. He has been slowly weaning down on his prednisone and is supposed to stop his 10 mg tomorrow without any further taper. He was initially 40 mg 3 weeks ago and has been slowly tapering down. We discussed he has medication available to wean down to 5 mg and I think this would be more appropriate. Patient is agreeable to this portion of plan. He had some mild wheeze on exam and felt better and his wheeze had resolved after DuoNeb. Plan for patient to continue his other home medications as prescribed. Was tachycardic in the 120 initially on EKG but this improved without any additional intervention. He is COVID negative with no other clear causes for his symptoms today. Discharge Plan Departure Patient Disposition: Home Clinical Impression: Muscle spasms of lower extremity, Palpitations Activity Restrictions/Additional Instructions: Follow-up with your physician for recheck regarding the spasm in your hands and feet. Your heart rate was elevated initially here in the department but has been appropriate otherwise with no obvious arrhythmias. I would recommend tapering your prednisone to 5 mg rather than stopping at 10 mg. People can get adrenal insufficiency and sometimes do require a more prolonged wean on their steroids. Please return for new or worsening chest, shortness of breath, passing out, new swelling in her lower extremities, persistent vomiting or other new or concerning symptoms. Prescriptions: No Action albuterol sulfate [Ventolin HFA] 90 mcg/actuation HFA aerosol inhaler See Rx Instructions .ROUTE .COMPLEX Qty: 18 RF: 3 (DME) Disabled Parking Permit Qty: 1 RF: 0 lisinopril 10 mg tablet See Rx Instructions .ROUTE .COMPLEX Qty: 90 RF: 3 clonazepam 0.5 mg tablet See Rx Instructions .ROUTE .COMPLEX Qty: 60 RF: 1 simvastatin 20 mg tablet See Rx Instructions .ROUTE .COMPLEX Qty: 90 RF: 2 benzonatate 100 mg capsule 100 mg PO BID-TID Qty: 270 RF: 1 ondansetron 4 mg tablet,disintegrating 4 mg PO BID-TID PRN (Reason: Nausea) RF: 0 nystatin 100,000 unit/mL suspension 5 ml PO QID Qty: 200 RF: 0 Dulera 200-5 mcg/actuation HFA aerosol inhaler See Rx Instructions .ROUTE .COMPLEX Qty: 13 RF: 6 pantoprazole [Protonix] 40 mg tablet,delayed release (DR/EC) 40 mg PO DAILY Qty: 90 RF: 3 prednisone 20 mg tablet 40 mg PO DAILY RF: 0 montelukast 10 mg tablet 10 mg PO QPM RF: 0 acetaminophen 325 mg Tablet 1 dose PO PRN PRN (Reason: pain) RF: 0 magnesium hydroxide 400 mg/5 mL Suspension 1 dose PO PRN PRN (Reason: Indigestion) RF: 0 ibuprofen 200 mg Tablet 1 dose PO PRN PRN (Reason: pain) RF: 0 sumatriptan succinate 50 mg Tablet 50 mg PO DAILY RF: 0 aspirin 81 mg Tablet 81 mg PO DAILY RF: 0 levalbuterol HCl 1.25 mg/3 mL Solution For Nebulization 1.25 mg INHALATION Q6HR PRN (Reason: Wheezing) RF: 0 ipratropium-albuterol 0.5 mg-3 mg(2.5 mg base)/3 mL solution for nebulization 3 ml INHALATION BID PRN (Reason: wheezing/ SOB) RF: 0 nitroglycerin 0.3 mg tablet, sublingual 0.3 mg sublingual Q5-15M PRN (Reason: chest pain) Qty: 20 RF: 0 Spiriva with HandiHaler 18 MCG capsule, w/inhalation device 18 mcg INH DAILY RF: 0 Referrals: Saqib Oliva, [Primary Care Provider] -
[2021-05-26 16:32] LABS: NT-proBNP (BNP-Adult 18+) 44 pg/mL (<125)
[2021-05-26 16:34] LABS: D Dimer < 200 ng/mL (<230)
[2021-05-26 16:37] LABS: Adenovirus Not Detected (Not Detect); B. parapertussis Not Detected (Not Detecte); Bordetella pertussis Not Detected (Not Detecte); Chlamydophila pneumoniae Not Detected (Not Detect); Coronavirus 229E Not Detected (Not Detect); Coronavirus HKU1 Not Detected (Not Detect); Coronavirus NL 63 Not Detected (Not Detect); Coronavirus OC43 Not Detected (Not Detect); Human Metapneumovirus Not Detected (Not Detect); Human Rhinovirus/Enterovirus Not Detected (Not Detect); Influenza A Not Detected (Not Detect); Influenza B Not Detected (Not Detect); Mycoplasma pneumoniae Not Detected (Not Detect); Parainfluenza Virus 1 Not Detected (Not Detect); Parainfluenza Virus 2 Not Detected (Not Detect); Parainfluenza Virus 3 Not Detected (Not Detect); Parainfluenza Virus 4 Not Detected (Not Detect); Respiratory Syncytial Virus Not Detected (Not Detect); SARS- CoV-2 Not Detected (Not Detecte)
[2021-05-26] MEDS: ALBUTEROL/IPRATROPIUM 3 ML AMPUL INH (16:42)
--- NOTE | 2021-05-26 17:02 | RT ---
pt idalia neb tx well, some some noted with exertion. Pt on his 3lpm nc Home O2
== END 2021-05-26 18:00 | disposition home or self-care (01) ==
PROVIDERS: Emergency Provider Emergency Medicine; PCP Family Medicine
DX: R00.2 Palpitations (principal); M62.838 Other muscle spasm; R06.02 Shortness of breath; Z20.822 Contact with and (suspected) exposure to COVID-19
CPT/HCPCS: 36415; 71045; 80053; 82550; 83690; 83880; 84484; 85025; 85379; 87633; 87635; 93005; 94640; 99284; C9803

== ENCOUNTER 2021-09-27 04:42 | Emergency (ER) | payer MEDICARE, MEDICAID, SELFPAY ==
[2021-01-31 12:11] VITALS: BMI 24.0
[2021-09-27 04:40] VITALS: BP 163/78; PULSE 84; RESP 22; TEMP 36.6; O2SAT 100
--- NOTE | 2021-09-27 04:52 | ED.GENADULT ---
HPI - General Adult General Chief complaint: Shortness of Breath/Dyspnea Stated complaint: shortness of breath Time Seen by Provider: 09/27/21 04:48 History of Present Illness HPI narrative: 60-year-old gentleman with history of chronic lung disease/COPD/emphysema/asthma/chronic bronchitis who is on 2 L of home oxygen chronically, currently trying to wean down steroids had been at 40 mg and over the last 5 days has weaned down to 20 mg presents complaining of 3 days of increasing shortness of breath in 3 hours of severe dyspnea. When medics presented to his home blood pressure is 130/80 he was able to speak in full sentences was having significant difficulty in moving any air and they report he responded moderately well to an initial DuoNeb inhaler. Patient with states that over the last couple of days he has had some increased abdominal distension that does seem to be improved with belching and flatulence. He has not had fevers, significant chest pain, palpitations. He notes that he is globally weak with baseline severe exertional dyspnea. He is followed by bandsaw operator at [facility]. He notes that he has been having more difficulty laying flat which is not typically an issue for him he does not have any increased lower extremity edema. In the past he has had issues with diverticulitis and he is wondering if some of his mild abdominal discomfort may be related to developing diverticulitis it is exacerbating his chronic lung disease. He has had 2 COVID vaccines. Related Data Home Medications Medication Instructions Recorded Confirmed ondansetron 4 mg disintegrating 4 mg PO BID-TID PRN 12/03/18 05/13/21 tablet acetaminophen 325 mg tablet 1 dose PO PRN PRN 12/29/18 05/13/21 ibuprofen 200 mg tablet 1 dose PO PRN PRN 12/29/18 05/13/21 magnesium hydroxide 400 mg/5 mL 1 dose PO PRN PRN 12/29/18 05/13/21 oral suspension aspirin 81 mg tablet 81 mg PO DAILY 12/30/20 05/13/21 levalbuterol HCl 1.25 mg/3 mL 1.25 mg INHALATION Q6HR PRN 12/30/20 05/13/21 solution for nebulization sumatriptan succinate 50 mg tablet 50 mg PO DAILY 12/30/20 05/13/21 prednisone 20 mg tablet 40 mg PO DAILY tab 05/13/21 05/13/21 Previous Rx's Medication Instructions Recorded albuterol sulfate 90 mcg/actuation See Rx Instructions .ROUTE 05/04/19 aerosol inhaler (Ventolin HFA) .COMPLEX #18 gram Disabled Parking Permit #1 ea 06/24/19 nitroglycerin 0.3 mg sublingual 0.3 mg SUBLINGUAL Q5-15M PRN #20 01/23/21 tablet tab pantoprazole 40 mg tablet,delayed 40 mg PO DAILY #90 tab 02/11/21 release (Protonix) simvastatin 20 mg tablet See Rx Instructions .ROUTE 03/12/21 .COMPLEX #90 tablet benzonatate 100 mg capsule 100 mg PO BID-TID #270 cap 03/14/21 nystatin 100,000 unit/mL oral 5 ml PO QID #200 ml 05/27/21 suspension mometasone-formoterol HFA 200 See Rx Instructions .ROUTE 07/24/21 mcg-5 mcg/actuation aerosol .COMPLEX #13 gram inhaler (Dulera) ipratropium 0.5 mg-albuterol 3 mg 3 ml INHALATION BID PRN #90 ml 08/12/21 (2.5 mg base)/3 mL nebulization soln lisinopril 10 mg tablet See Rx Instructions .ROUTE 08/12/21 .COMPLEX #90 tab montelukast 10 mg tablet 10 mg PO QPM #90 tab 08/12/21 tiotropium bromide 18 mcg capsule 18 mcg INHALATION DAILY #90 inh 08/12/21 with inhalation device (Spiriva with HandiHaler) clonazepam 0.5 mg tablet See Rx Instructions .ROUTE 09/09/21 .COMPLEX #60 tab Allergies Allergy/AdvReac Type Severity Reaction Status Date / Time cinnamon [CINNAMON] Allergy Severe RESP Verified 05/13/21 13:13 PROBLEMS AND SWELLING Sulfa (Sulfonamide Allergy Severe anaphylacti Verified 05/26/21 16:00 Antibiotics) c [SULFA (SULFONAMIDE ANTIBIOTICS)] fluticasone [FLUTICASONE] Allergy Intermediate FEELS Verified 05/13/21 13:13 LIKE FIRE IN THE LUNGS trimethoprim [TRIMETHOPRIM] Allergy Unknown Patient Verified 05/13/21 13:13 can't remember beclomethasone [From QVAR] AdvReac Severe tachycardia Verified 05/26/21 16:00 budesonide [From SYMBICORT] AdvReac Severe tachycardia Verified 05/26/21 16:00 formoterol [From SYMBICORT] AdvReac Severe tachycardia Verified 05/13/21 13:13 codeine [CODEINE] AdvReac Intermediate violent Verified 05/26/21 16:00 doxycycline [DOXYCYCLINE] AdvReac Mild N/V Verified 05/26/21 16:00 Review of Systems Review of Systems Narrative: Remainder of complete review of systems is otherwise unremarkable except for that included in the HPI. Patient History Medical History (Updated 09/27/21 @ 05:51 by Yris Nash MD) Anxiety (~2015) Asthma (Unknown) COPD (chronic obstructive pulmonary disease) (~2013) GERD with stricture Hematuria (~2014) HTN (hypertension) Hyperlipidemia (~2015) Insomnia (~2015) TIA (transient ischemic attack) (05/2014) Surgical History No pertinent past surgical history Family History Mother Age: 83 Hypertension Sister Age: 66 Cancer Social History household members: none Smoking Status: Current every day smoker Tobacco: How many years used: 47 quit status: considering quitting second hand exposure: No alcohol intake: former substance use type: does not use Smoking Status: Current every day smoker tobacco type: cigarettes alcohol intake frequency: holidays/special occasions only Substance Use Type: marijuana Exam Initial Vital Signs Initial Vital Signs: Vital Signs Temperature 97.9 F 09/27/21 04:40 Pulse Rate 84 09/27/21 04:40 Respiratory Rate 22 09/27/21 04:40 Blood Pressure 163/78 H 09/27/21 04:40 Pulse Oximetry 100 09/27/21 04:40 General: Frail appearing in moderate respiratory distress able to speak in 3-4 word sentences with significant dyspnea in simply going to the motions of taking off his shirt HEENT: Moist mucous membranes, normal sclera with reactive pupils, Neck: No JVD, supple Respiratory: Poor lung movement with wheeze appreciated in the upper lung silva and inadequate ventilation of lower lungs to appreciate severity of wheeze. There are no rhonchi. Cardiac: Mild tachycardia with Regular rate and rhythm no murmurs no bruits Abdomen: Soft, nontender, good bowel tones, no flank pain Skin: Warm and dry, no rashes Neurologic: Grossly neurologically intact with no obvious asymmetries or abnormalities Extremities: No trauma, well perfused Psych: Cooperative, appropriate insight and affect Course Orders Ordered: ED Orders 09/27/21 04:59 Respiratory Panel (Film Array) Stat 09/27/21 05:01 XR chest 1V Stat Blood Culture Stat Complete Blood Count AUTO DIFF Stat Comprehensive Metabolic Panel Stat D Dimer Stat Lactate (Lactic Acid) Stat NT-proBNP (BNP-Adult 18+) Stat Procalcitonin Stat Troponin I Stat 09/27/21 05:02 EKG-12 Lead Stat Discontinued Medications Aspirin (Aspirin 81 Mg Chew Tab) 324 mg PO NOW ONE Stop: 09/27/21 05:00 Last Admin: 09/27/21 05:11 Dose: 324 mg Documented by: Sodium Chloride (Normal Saline 0.9%) 1,000 mls @ 1,000 mls/hr IV BOLUS ONE Stop: 09/27/21 05:58 Last Admin: 09/27/21 05:11 Dose: 1,000 mls/hr Documented by: Magnesium Sulfate (Magnesium Sulfate) 2 gm in 50 mls @ 150 mls/hr IV NOW ONE Stop: 09/27/21 05:18 Last Infusion: 09/27/21 05:38 Dose: Infused Documented by: Methylprednisolone (Methylprednisolone 125 Mg/2 Ml Vial) 125 mg IV NOW ONE Stop: 09/27/21 05:00 Last Admin: 09/27/21 05:12 Dose: 125 mg Documented by: Vital Signs Vital signs: Vital Signs - 8 hr 09/27/21 04:40 09/27/21 05:05 09/27/21 05:06 Temperature 97.9 F Pulse Rate 84 80 76 Respiratory Rate 22 20 18 Blood Pressure 163/78 H 131/61 Pulse Oximetry 100 98 100 09/27/21 05:30 09/27/21 06:00 Temperature Pulse Rate 81 77 Respiratory Rate 24 27 H Blood Pressure 127/60 132/57 L Pulse Oximetry 99 100 Medical Decision Making Lab Data Result diagrams: 09/27/21 05:01 09/27/21 05:01 Labs: Lab Results 09/27/21 09/27/21 09/27/21 Range/Units 04:50 05:01 05:01 WBC 12.2 H (4.5-11.0) X10^3/uL RBC 5.09 (4.5-5.9) X10^6/uL Hgb 14.4 (13.5-17.5) g/dL Hct 44.3 (41-53) % MCV 87.0 (80-100) fL MCH 28.2 (26-34) PG MCHC 32.5 (30-36) % RDW 14.7 (11.6-14.8) % Plt Count 202 (150-400) X10^3/uL Neut % (Auto) 62.7 (50-75) % Lymph % (Auto) 30.4 (25-40) % Henderson % (Auto) 4.8 (3-14) % Eos % (Auto) 1.6 L (2-4) % Baso % (Auto) 0.5 (0-2) % Neut # (Auto) 7700 H (0263-4290) /uL Lymph # (Auto) 3700 (7134-9042) /uL Henderson # (Auto) 600 (0-900) /uL Eos # (Auto) 200 (0-450) /uL Baso # (Auto) 100 (0-100) /uL D-Dimer < 200 (<230) ng/mL Sodium (137-145) mmol/L Potassium (3.4-5.1) mmol/L Chloride (98-107) mmol/L Carbon Dioxide (22-32) mmol/L BUN (9-20) mg/dL Creatinine (0.66-1.25) mg/dL Estimated GFR (>60) mL/min BUN/Creatinine Ratio (6-22) Glucose (80-110) mg/dL Lactate (0.7-2.1) mmol/L Calcium (8.4-10.2) mg/dL Total Bilirubin (0.2-1.3) mg/dL AST (17-59) IU/L ALT (<50) IU/L Alkaline Phosphatase (38-126) U/L Troponin I (0.01-0.034) ng/mL NT-Pro-B Natriuret Pep (<125) pg/mL Total Protein (6.3-8.2) g/dL Albumin (3.5-5.0) g/dL Globulin (1.7-4.1) g/dL Albumin/Globulin Ratio (1.0-2.8) Procalcitonin (<0.5) ng/mL Chlamy pneumoniae PCR Not detected (Not Detect) Adenovirus (PCR) Not detected (Not Detect) B. pertussis DNA (PCR) Not detected (Not Detecte) B.parapertussis DNA PCR Not detected (Not Detecte) Coronavirus OC43 (PCR) Not detected (Not Detect) Coronavirus HKU1 (PCR) Not detected (Not Detect) Coronavirus 229E (PCR) Not detected (Not Detect) SARS-CoV-2 (PCR) Not detected (Not Detecte) Coronavirus NL63 (PCR) Not detected (Not Detect) Human Metapneumovir PCR Not detected (Not Detect) Influenza Type A (PCR) Not detected (Not Detect) Influenza Type B (PCR) Not detected (Not Detect) M. pneumoniae (PCR) Not detected (Not Detect) Parainfluenza 1 (PCR) Not detected (Not Detect) Parainfluenza 2 (PCR) Not detected (Not Detect) Parainfluenza 3 (PCR) Not detected (Not Detect) Parainfluenza 4 (PCR) Not detected (Not Detect) RSV (PCR) Not detected (Not Detect) Entero/Rhino (PCR) Not detected (Not Detect) 09/27/21 09/27/21 Range/Units 05:01 05:01 WBC (4.5-11.0) X10^3/uL RBC (4.5-5.9) X10^6/uL Hgb (13.5-17.5) g/dL Hct (41-53) % MCV (80-100) fL MCH (26-34) PG MCHC (30-36) % RDW (11.6-14.8) % Plt Count (150-400) X10^3/uL Neut % (Auto) (50-75) % Lymph % (Auto) (25-40) % Henderson % (Auto) (3-14) % Eos % (Auto) (2-4) % Baso % (Auto) (0-2) % Neut # (Auto) (2235-1702) /uL Lymph # (Auto) (4531-6889) /uL Henderson # (Auto) (0-900) /uL Eos # (Auto) (0-450) /uL Baso # (Auto) (0-100) /uL D-Dimer (<230) ng/mL Sodium 142 (137-145) mmol/L Potassium 4.1 (3.4-5.1) mmol/L Chloride 104 (98-107) mmol/L Carbon Dioxide 33 H (22-32) mmol/L BUN 28 H (9-20) mg/dL Creatinine 1.09 (0.66-1.25) mg/dL Estimated GFR > 60.0 (>60) mL/min BUN/Creatinine Ratio 25.7 H (6-22) Glucose 92 (80-110) mg/dL Lactate 1.2 (0.7-2.1) mmol/L Calcium 9.1 (8.4-10.2) mg/dL Total Bilirubin 0.4 (0.2-1.3) mg/dL AST 24 (17-59) IU/L ALT 18 (<50) IU/L Alkaline Phosphatase 51 (38-126) U/L Troponin I < 0.012 (0.01-0.034) ng/mL NT-Pro-B Natriuret Pep 91 (<125) pg/mL Total Protein 7.4 (6.3-8.2) g/dL Albumin 4.3 (3.5-5.0) g/dL Globulin 3.1 (1.7-4.1) g/dL Albumin/Globulin Ratio 1.4 (1.0-2.8) Procalcitonin 0.05 (<0.5) ng/mL Chlamy pneumoniae PCR (Not Detect) Adenovirus (PCR) (Not Detect) B. pertussis DNA (PCR) (Not Detecte) B.parapertussis DNA PCR (Not Detecte) Coronavirus OC43 (PCR) (Not Detect) Coronavirus HKU1 (PCR) (Not Detect) Coronavirus 229E (PCR) (Not Detect) SARS-CoV-2 (PCR) (Not Detecte) Coronavirus NL63 (PCR) (Not Detect) Human Metapneumovir PCR (Not Detect) Influenza Type A (PCR) (Not Detect) Influenza Type B (PCR) (Not Detect) M. pneumoniae (PCR) (Not Detect) Parainfluenza 1 (PCR) (Not Detect) Parainfluenza 2 (PCR) (Not Detect) Parainfluenza 3 (PCR) (Not Detect) Parainfluenza 4 (PCR) (Not Detect) RSV (PCR) (Not Detect) Entero/Rhino (PCR) (Not Detect) Imaging Data Chest x-ray: Radiologist's Impression: No acute cardiopulmonary abnormality is identified Clarice Altamirano MD ECG Data Interpretation: Sinus rhythm at a rate of 81 Nonspecific T-wave abnormality Normal intervals, normal axis No acute ischemic changes MDM Narrative Medical decision making narrative: 60-year-old gentleman with a history of significant chronic lung disease presents with 3 days of increasing dyspnea and 3 hours of respiratory distress. Significant wheezing with overall poor air movement, increased oxygen needs is beginning to respond to DuoNeb. He is given fluids, Solu-Medrol, magnesium, will continue nebulizers as needed and remaining workup is initiated. He is awake alert and able to speak in 5-6 word sentences at this time. No evidence of consolidated pneumonia, congestive heart failure, pulmonary embolism, pneumothorax, acute coronary syndrome. On re-examination he is down to 2 L of oxygen, his baseline with oxygen saturations at 99%. He looks much more comfortable is able to speak in complete sentences and is able to laugh and make jokes. He still has some mild pursed lip breathing which is his baseline. Ways airways are significantly more open with minimal wheeze at this time. He has all of his nebulizers including Xopenex, DuoNeb, albuterol inhaler and oxygen available to him at home. In reviewing this fairly rapid an impressive turn around asked if he felt comfortable returning home knowing that he lives alone. He does in fact feel safe doing so. He will continue all of his prior medications but increased back to 60 mg of prednisone until he reviews this most recent exacerbation with his pulmonary provider. He is very well aware that he can return to the hospital at any time. Discharge Plan Departure Patient Disposition: Home Clinical Impression: Acute exacerbation of chronic obstructive pulmonary disease, Tobacco abuse disorder Instructions: DI for Chronic Obstructive Pulmonary Disease Activity Restrictions/Additional Instructions: Thank you for coming in this morning. Initially, you were having significant difficulty with breathing however you have responded very well to fluids, IV steroids, IV magnesium, DuoNeb inhaler and oxygen. There is no evidence for pneumonia, congestive heart failure, heart attack, pneumothorax, pulmonary embolism or alternative diagnosis that would require additional treatment or further evaluation at this time. With your impressive response to treatment in the emergency department, you do seem to be back at your baseline with better air movement, good oxygen saturations and able to speak in full sentences with your sense of humor returning and ability to laugh. I do believe it is safe for you to return home. Please continue all of your usual home medications with the exception of prednisone. I am going to ask you to increase this to 60 mg, 1st dose of the 60 mg will be on ThursdaySeptember 28. On Thursday, please call your bandsaw operator and review the findings from the ER visit, let them know higher feeling over the weekend and that your prednisone was increased an ask for further recommendations. If you have new findings or worsening symptoms please return to the emergency department Prescriptions: No Action albuterol sulfate [Ventolin HFA] 90 mcg/actuation HFA aerosol inhaler See Rx Instructions .ROUTE .COMPLEX Qty: 18 3RF Dose Instruction: INHALE 1 - 2 PUFFS EVERY 4 HOURS NEEDED FOR SHORTNESS OF BREATH OR WHEEZING Rx Instructions: INHALE 1 - 2 PUFFS EVERY 4 HOURS NEEDED FOR SHORTNESS OF BREATH OR WHEEZING (DME) Disabled Parking Permit Qty: 1 0RF Rx Instructions: Patient qualifies for permanent disabled parking permit. simvastatin 20 mg tablet See Rx Instructions .ROUTE .COMPLEX Qty: 90 2RF Dose Instruction: TAKE 1 TABLET BY MOUTH AT BEDTIME Rx Instructions: TAKE 1 TABLET BY MOUTH AT BEDTIME benzonatate 100 mg capsule 100 mg PO BID-TID Qty: 270 1RF Dulera 200-5 mcg/actuation HFA aerosol inhaler See Rx Instructions .ROUTE .COMPLEX Qty: 13 6RF Dose Instruction: INHALE 2 PUFFS BY MOUTH TWICE DAILY Rx Instructions: INHALE 2 PUFFS BY MOUTH TWICE DAILY clonazepam 0.5 mg tablet See Rx Instructions .ROUTE .COMPLEX Qty: 60 1RF Dose Instruction: TAKE 1 TABLET BY MOUTH TWICE DAILY NEEDED FOR ANXIETY Rx Instructions: TAKE 1 TABLET BY MOUTH TWICE DAILY NEEDED FOR ANXIETY ondansetron 4 mg tablet,disintegrating 4 mg PO BID-TID PRN (Reason: Nausea) 0RF pantoprazole [Protonix] 40 mg tablet,delayed release (DR/EC) 40 mg PO DAILY Qty: 90 3RF prednisone 20 mg tablet 40 mg PO DAILY 0RF nystatin 100,000 unit/mL suspension 5 ml PO QID Qty: 200 1RF lisinopril 10 mg tablet See Rx Instructions .ROUTE .COMPLEX Qty: 90 3RF Dose Instruction: TAKE 1 TABLET BY MOUTH DAILY Rx Instructions: TAKE 1 TABLET BY MOUTH DAILY montelukast 10 mg tablet 10 mg PO QPM Qty: 90 3RF ipratropium-albuterol 0.5 mg-3 mg(2.5 mg base)/3 mL solution for nebulization 3 ml INHALATION BID PRN (Reason: wheezing/ SOB) Qty: 90 1RF Spiriva with HandiHaler 18 mcg capsule, w/inhalation device 18 mcg inhalation DAILY Qty: 90 3RF acetaminophen 325 mg Tablet 1 dose PO PRN PRN (Reason: pain) 0RF magnesium hydroxide 400 mg/5 mL Suspension 1 dose PO PRN PRN (Reason: Indigestion) 0RF Label Comments: patient states uses often Mylanta ibuprofen 200 mg Tablet 1 dose PO PRN PRN (Reason: pain) 0RF sumatriptan succinate 50 mg Tablet 50 mg PO DAILY 0RF Rx Instructions: Take 1 tablet by mouth at onset of migraine aspirin 81 mg Tablet 81 mg PO DAILY 0RF levalbuterol HCl 1.25 mg/3 mL Solution For Nebulization 1.25 mg INHALATION Q6HR PRN (Reason: Wheezing) 0RF nitroglycerin 0.3 mg tablet, sublingual 0.3 mg sublingual Q5-15M PRN (Reason: chest pain) Qty: 20 0RF Rx Instructions: do not exceed 3 doses per episode Referrals: Saqib Oliva, [Primary Care Provider] -
--- NOTE | 2021-09-27 05:01 | DI.RAD.S_ITS ---
PROCEDURE: XR CHEST 1V INDICATIONS: dyspnea TECHNIQUE: One view of the chest was acquired. COMPARISON: [facility], CT, CT CHEST WO CON, 11/08/2020, 13:41. [facility], CR, XR CHEST 1V, 05/26/2021, 14:49. FINDINGS: Surgical changes and devices: None. Lungs and pleura: Severe biapical emphysematous change. Lungs are clear. No pleural effusions or pneumothorax. Mediastinum: Mediastinal contours appear normal. Heart size is normal. Bones and chest wall: No suspicious bony lesions. Overlying soft tissues appear unremarkable. IMPRESSION: COPD. No evidence acute pulmonary process. Comment: Final report is concordant with preliminary interpretation provided by [facility]. Dictated by: Bay Nguyen M.D. on 09/27/2021 at 8:09 Approved by: Bay Nguyen M.D. on 09/27/2021 at 8:10
[2021-09-27 05:05] VITALS: BP 131/61; PULSE 80; RESP 20; O2SAT 98
[2021-09-27 05:06] VITALS: PULSE 76; RESP 18; O2SAT 100
[2021-09-27] MEDS: MAGNESIUM SULFATE 2 GM/50 ML PIGGYBACK IV (05:11)
[2021-09-27] MEDS: SODIUM CHLORIDE 0.9% 1,000 ML 1000 ML IV (05:11)
[2021-09-27] MEDS: ASPIRIN 81 MG CHEW TAB 324 MG PO (05:11)
[2021-09-27] MEDS: methylPREDNISolone 125 MG/2 ML VIAL IV (05:12)
[2021-09-27 05:14] LABS: Add Manual Diff / Slide Review NO; Basophils Absolute Auto 100 /uL (0-100); Basophils Percent Auto 0.5 % (0-2); Eosinophils Absolute Auto 200 /uL (0-450); Eosinophils Percent Auto 1.6 % (2-4); Hematocrit 44.3 % (41-53); Hemoglobin 14.4 g/dL (13.5-17.5); Lymphocytes Absolute Auto 3700 /uL (1100-4500); Lymphocytes Percent Auto 30.4 % (25-40); Mean Corpuscular HGB Conc 32.5 % (30-36); Mean Corpuscular Hemoglobin 28.2 PG (26-34); Monocytes Absolute Auto 600 /uL (0-900); Monocytes Percent Auto 4.8 % (3-14); Neutrophils Absolute Auto 7700 /uL (1500-7000); Neutrophils Percent Auto 62.7 % (50-75); Platelet Count 202 X10^3/uL (150-400); Red Blood Cell Count 5.09 X10^6/uL (4.5-5.9); Red Cell Distribution Width 14.7 % (11.6-14.8); White Blood Cell Count 12.2 X10^3/uL (4.5-11.0)
[2021-09-27 05:16] LABS: Lactate (Lactic Acid) 1.2 mmol/L (0.7-2.1)
[2021-09-27 05:18] LABS: Alanine Aminotransferase 18 IU/L (<50); Albumin 4.3 g/dL (3.5-5.0); Albumin Globulin Ratio 1.4 (1.0-2.8); Alkaline Phosphatase 51 U/L (38-126); Aspartate Aminotransferase 24 IU/L (17-59); BUN Creatinine Ratio 25.7 (6-22); Bilirubin Total 0.4 mg/dL (0.2-1.3); Blood Urea Nitrogen 28 mg/dL (9-20); Calcium 9.1 mg/dL (8.4-10.2); Carbon Dioxide 33 mmol/L (22-32); Chloride 104 mmol/L (98-107); Estimated Glomerular Filt Rate > 60.0 mL/min (>60); Globulin 3.1 g/dL (1.7-4.1); Glucose 92 mg/dL (80-110); HEMOLYSIS < 15 (0-50); Potassium 4.1 mmol/L (3.4-5.1); Sodium 142 mmol/L (137-145); Total Protein 7.4 g/dL (6.3-8.2)
[2021-09-27 05:25] LABS: D Dimer < 200 ng/mL (<230)
[2021-09-27 05:29] LABS: NT-proBNP (BNP-Adult 18+) 91 pg/mL (<125); Troponin I < 0.012 ng/mL (0.01-0.034)
[2021-09-27 05:30] VITALS: BP 127/60; PULSE 81; RESP 24; O2SAT 99
[2021-09-27 05:33] LABS: Procalcitonin 0.05 ng/mL (<0.5)
[2021-09-27 06:00] VITALS: BP 132/57; PULSE 77; RESP 27; O2SAT 100
[2021-09-27 06:13] LABS: Adenovirus Not Detected (Not Detect); B. parapertussis Not Detected (Not Detecte); Bordetella pertussis Not Detected (Not Detecte); Chlamydophila pneumoniae Not Detected (Not Detect); Coronavirus 229E Not Detected (Not Detect); Coronavirus HKU1 Not Detected (Not Detect); Coronavirus NL 63 Not Detected (Not Detect); Coronavirus OC43 Not Detected (Not Detect); Human Metapneumovirus Not Detected (Not Detect); Human Rhinovirus/Enterovirus Not Detected (Not Detect); Influenza A Not Detected (Not Detect); Influenza B Not Detected (Not Detect); Mycoplasma pneumoniae Not Detected (Not Detect); Parainfluenza Virus 1 Not Detected (Not Detect); Parainfluenza Virus 2 Not Detected (Not Detect); Parainfluenza Virus 3 Not Detected (Not Detect); Parainfluenza Virus 4 Not Detected (Not Detect); Respiratory Syncytial Virus Not Detected (Not Detect); SARS- CoV-2 Not Detected (Not Detecte)
== END 2021-09-27 06:35 | disposition home or self-care (01) ==
PROVIDERS: Emergency Provider Emergency Medicine; PCP Family Medicine
DX: J44.1 Chronic obstructive pulmonary disease with (acute) exacerbation (principal); F17.210 Nicotine dependence, cigarettes, uncomplicated; Z99.81 Dependence on supplemental oxygen
CPT/HCPCS: 36415; 71045; 80053; 83605; 83880; 84145; 84484; 85025; 85379; 87040; 87633; 93010; 96361; 96365; 96375; 99284; 99285; J2930; J3475

== ENCOUNTER 2021-11-10 18:37 | Emergency (ER) | payer MEDICARE, MEDICAID, SELFPAY ==
[2021-01-31 12:11] VITALS: BMI 24.0
--- NOTE | 2021-11-10 18:45 | DI.RAD.S_ITS ---
PROCEDURE: XR CHEST 1V INDICATIONS: cough, fever TECHNIQUE: One view of the chest was acquired. COMPARISON: [facility], CR, XR CHEST 1V, 09/27/2021, 5:03. FINDINGS: Surgical changes and devices: None. Lungs and pleura: Lungs are clear. No pleural effusions or pneumothorax. Mediastinum: Mediastinal contours appear normal. Heart size is normal. Bones and chest wall: No suspicious bony lesions. Overlying soft tissues appear unremarkable. IMPRESSION: No acute process. Dictated by: Dana Duarte M.D. on 11/10/2021 at 19:01 Approved by: Dana Duarte M.D. on 11/10/2021 at 19:02
--- NOTE | 2021-11-10 18:46 | ED_ITS ---
HPI - SOB/Dyspnea General Chief Complaint: Shortness of Breath/Dyspnea Stated Complaint: Increased fatigue & SOB Time Seen by Provider: 11/10/21 18:42 History of Present Illness HPI Narrative: 60M smoker with COPD on home O2 at 2L presents with increasing SOB over the past few days. He had subjective fever a few days ago, but no longer does. He states he has had some difficulty getting his full matter all and Spiriva but otherwise has been taking his medications as directed. He has a bit of nasal congestion but denies any sore throat. His shortness of breath is increased with exertion, he denies any orthopnea weight gain. He has no chest pain. He has no nausea, vomiting or diarrhea. He denies dysuria, frequency or urgency. He denies any known exposure to COVID. He states that he had been on prednisone 60 mg a few months ago and taper down but over the past few days given his increase in symptoms he is back on 10 mg daily Related Data Home Medications Medication Instructions Recorded Confirmed ondansetron 4 mg disintegrating 4 mg PO BID-TID PRN 12/03/18 05/13/21 tablet acetaminophen 325 mg tablet 1 dose PO PRN PRN 12/29/18 05/13/21 ibuprofen 200 mg tablet 1 dose PO PRN PRN 12/29/18 05/13/21 magnesium hydroxide 400 mg/5 mL 1 dose PO PRN PRN 12/29/18 05/13/21 oral suspension aspirin 81 mg tablet 81 mg PO DAILY 12/30/20 05/13/21 levalbuterol HCl 1.25 mg/3 mL 1.25 mg INHALATION Q6HR PRN 12/30/20 05/13/21 solution for nebulization sumatriptan succinate 50 mg tablet 50 mg PO DAILY 12/30/20 05/13/21 prednisone 20 mg tablet 40 mg PO DAILY tab 05/13/21 05/13/21 Previous Rx's Medication Instructions Recorded albuterol sulfate 90 mcg/actuation See Rx Instructions .ROUTE 05/04/19 aerosol inhaler (Ventolin HFA) .COMPLEX #18 gram Disabled Parking Permit #1 ea 06/24/19 nitroglycerin 0.3 mg sublingual 0.3 mg SUBLINGUAL Q5-15M PRN #20 01/23/21 tablet tab pantoprazole 40 mg tablet,delayed 40 mg PO DAILY #90 tab 02/11/21 release (Protonix) simvastatin 20 mg tablet See Rx Instructions .ROUTE 03/12/21 .COMPLEX #90 tablet benzonatate 100 mg capsule 100 mg PO BID-TID #270 cap 03/14/21 nystatin 100,000 unit/mL oral 5 ml PO QID #200 ml 05/27/21 suspension mometasone-formoterol HFA 200 See Rx Instructions .ROUTE 07/24/21 mcg-5 mcg/actuation aerosol .COMPLEX #13 gram inhaler (Dulera) ipratropium 0.5 mg-albuterol 3 mg 3 ml INHALATION BID PRN #90 ml 08/12/21 (2.5 mg base)/3 mL nebulization soln lisinopril 10 mg tablet See Rx Instructions .ROUTE 08/12/21 .COMPLEX #90 tab montelukast 10 mg tablet 10 mg PO QPM #90 tab 08/12/21 tiotropium bromide 18 mcg capsule 18 mcg INHALATION DAILY #90 inh 08/12/21 with inhalation device (Spiriva with HandiHaler) clonazepam 0.5 mg tablet See Rx Instructions .ROUTE 09/09/21 .COMPLEX #60 tab Allergies Allergy/AdvReac Type Severity Reaction Status Date / Time cinnamon [CINNAMON] Allergy Severe RESP Verified 05/13/21 13:13 PROBLEMS AND SWELLING Sulfa (Sulfonamide Allergy Severe anaphylacti Verified 05/26/21 16:00 Antibiotics) c [SULFA (SULFONAMIDE ANTIBIOTICS)] fluticasone [FLUTICASONE] Allergy Intermediate FEELS Verified 05/13/21 13:13 LIKE FIRE IN THE LUNGS trimethoprim [TRIMETHOPRIM] Allergy Unknown Patient Verified 05/13/21 13:13 can't remember beclomethasone [From QVAR] AdvReac Severe tachycardia Verified 05/26/21 16:00 budesonide [From SYMBICORT] AdvReac Severe tachycardia Verified 05/26/21 16:00 formoterol [From SYMBICORT] AdvReac Severe tachycardia Verified 05/13/21 13:13 codeine [CODEINE] AdvReac Intermediate violent Verified 05/26/21 16:00 doxycycline [DOXYCYCLINE] AdvReac Mild N/V Verified 05/26/21 16:00 Review of Systems Review of Systems Narrative: GENERAL: See HPI HEENT: Denies sinus pain, ear pain, sore throat, difficulty swallowing, dizziness. RESPIRATORY: See HPI CARDIOVASCULAR: Denies chest pain, palpitations, orthopnea, edema, GASTROINTESTINAL: Denies nausea, vomiting, abdominal pain, diarrhea, constipation, melena. : Denies dysuria, frequency, incontinence, hematuria, urinary retention. MUSCULOSKELETAL: denies weakness, joint pain, or bony pain SKIN: Denies rash, skin lesions, or other NEUROLOGIC: Denies weakness, headache, numbness, change in speech, confusion, seizures, incoordination. PSYCHIATRIC: No concerning psychosocial issues. 12 point review of systems is negative except for those stated above Patient History Medical History Anxiety (~2015) Asthma (Unknown) COPD (chronic obstructive pulmonary disease) (~2013) GERD with stricture Hematuria (~2014) HTN (hypertension) Hyperlipidemia (~2015) Insomnia (~2015) TIA (transient ischemic attack) (05/2014) Surgical History No pertinent past surgical history Family History Mother Age: 83 Hypertension Sister Age: 66 Cancer Social History household members: none Smoking Status: Current some day smoker Tobacco: How many years used: 47 quit status: considering quitting second hand exposure: No alcohol intake: former substance use type: does not use Smoking Status: Current every day smoker tobacco type: cigarettes alcohol intake frequency: holidays/special occasions only Substance Use Type: marijuana Exam Narrative Exam Narrative: GENERAL: [60] year old patient appears stated age. Well-developed patient, in mild distress. Currently on nebulizer by EMS HEAD: Atraumatic. Normocephalic. EYES: Pupils equal round and reactive. Extraocular motions intact. No scleral icterus. No injection or drainage. ENT: Nose without bleeding, purulent drainage. Throat without erythema, tonsillar hypertrophy or exudate. Airway patent. NECK: Trachea midline. Non tender CARDIOVASCULAR: Regular rate and rhythm without murmurs, gallops, or rubs. RESPIRATORY: Fully conversational, prolonged expiratory phase with decreased lung sounds throughout, no obvious wheezes, rales or rhonchi GASTROINTESTINAL: Abdomen soft, non-tender, nondistended. EXTREMITIES: No edema or joint tenderness. BACK: Nontender without deformity or crepitance. No flank tenderness. NEURO: AOx3. SKIN: No rash or erythema of visible areas Initial Vital Signs Initial Vital Signs: Vital Signs Temperature 98.2 F 11/10/21 18:56 Pulse Rate 100 H 11/10/21 18:56 Respiratory Rate 30 H 11/10/21 18:56 Blood Pressure 134/67 11/10/21 18:56 Pulse Oximetry 95 11/10/21 18:56 Course Orders Ordered: ED Orders 11/10/21 18:44 Consult to Respiratory Therapy Evaluate & Treat EKG-12 Lead Stat 11/10/21 18:45 XR chest 1V Stat Blood Culture Stat COVID19 -Nasal RAPID/Pre-Proc Stat Complete Blood Count AUTO DIFF Stat Comprehensive Metabolic Panel Stat D Dimer Stat Lactate (Lactic Acid) Stat Magnesium Stat NT-proBNP (BNP-Adult 18+) Stat Procalcitonin Stat Troponin & CK Cardiac Panel Stat Discontinued Medications Albuterol/Ipratropium (Albuterol/Ipratropium 3 Ml Ampul) 3 ml INH NOW ONE Stop: 11/10/21 18:44 Last Admin: 11/10/21 19:17 Dose: 3 ml Documented by: [email or web address] Methylprednisolone (Methylprednisolone 125 Mg/2 Ml Vial) 125 mg IV NOW ONE Stop: 11/10/21 18:44 Last Admin: 11/10/21 19:09 Dose: 125 mg Documented by: [email or web address] Vital Signs Vital signs: Vital Signs - 8 hr 11/10/21 18:56 11/10/21 19:18 11/10/21 19:25 Temperature 98.2 F Pulse Rate 100 H 89 94 H Respiratory Rate 30 H 22 24 Blood Pressure 134/67 Pulse Oximetry 95 97 97 11/10/21 19:30 Temperature Pulse Rate 89 Respiratory Rate 18 Blood Pressure 115/55 L Pulse Oximetry 96 MDM - SOB/Dyspnea Lab Data Result diagrams: 11/10/21 18:45 11/10/21 18:45 Labs: Lab Results 11/10/21 11/10/21 11/10/21 Range/Units 18:45 18:45 18:45 WBC 13.2 H (4.5-11.0) X10^3/uL RBC 4.35 L (4.5-5.9) X10^6/uL Hgb 12.3 L (13.5-17.5) g/dL Hct 37.6 L (41-53) % MCV 86.6 (80-100) fL MCH 28.4 (26-34) PG MCHC 32.8 (30-36) % RDW 15.3 H (11.6-14.8) % Plt Count 207 (150-400) X10^3/uL Neut % (Auto) 89.6 H (50-75) % Lymph % (Auto) 7.8 L (25-40) % [place] % (Auto) 2.2 L (3-14) % Eos % (Auto) 0.3 L (2-4) % Baso % (Auto) 0.1 (0-2) % Neut # (Auto) 62017 H (0783-0802) /uL Lymph # (Auto) 1000 L (8046-2752) /uL [place] # (Auto) 300 (0-900) /uL Eos # (Auto) 0 (0-450) /uL Baso # (Auto) 0 (0-100) /uL D-Dimer < 200 (<230) ng/mL Sodium (137-145) mmol/L Potassium (3.4-5.1) mmol/L Chloride (98-107) mmol/L Carbon Dioxide (22-32) mmol/L BUN (9-20) mg/dL Creatinine (0.66-1.25) mg/dL Estimated GFR (>60) mL/min BUN/Creatinine Ratio (6-22) Glucose (80-110) mg/dL Lactate (0.7-2.1) mmol/L Calcium (8.4-10.2) mg/dL Magnesium (1.6-2.3) mg/dL Total Bilirubin (0.2-1.3) mg/dL AST (17-59) IU/L ALT (<50) IU/L Alkaline Phosphatase (38-126) U/L Total Creatine Kinase (55-170) U/L CK-MB (CK-2) CK-MB (CK-2) Rel Index Troponin I (0.01-0.034) ng/mL NT-Pro-B Natriuret Pep 47 (<125) pg/mL Total Protein (6.3-8.2) g/dL Albumin (3.5-5.0) g/dL Globulin (1.7-4.1) g/dL Albumin/Globulin Ratio (1.0-2.8) Procalcitonin 0.04 (<0.5) ng/mL SARS-CoV-2 (PCR) (Negative) 11/10/21 11/10/21 11/10/21 Range/Units 18:45 18:45 18:45 WBC (4.5-11.0) X10^3/uL RBC (4.5-5.9) X10^6/uL Hgb (13.5-17.5) g/dL Hct (41-53) % MCV (80-100) fL MCH (26-34) PG MCHC (30-36) % RDW (11.6-14.8) % Plt Count (150-400) X10^3/uL Neut % (Auto) (50-75) % Lymph % (Auto) (25-40) % [place] % (Auto) (3-14) % Eos % (Auto) (2-4) % Baso % (Auto) (0-2) % Neut # (Auto) (4794-8425) /uL Lymph # (Auto) (4378-7830) /uL [place] # (Auto) (0-900) /uL Eos # (Auto) (0-450) /uL Baso # (Auto) (0-100) /uL D-Dimer (<230) ng/mL Sodium 141 (137-145) mmol/L Potassium 4.9 (3.4-5.1) mmol/L Chloride 105 (98-107) mmol/L Carbon Dioxide 30 (22-32) mmol/L BUN 25 H (9-20) mg/dL Creatinine 0.88 (0.66-1.25) mg/dL Estimated GFR > 60 (>60) mL/min BUN/Creatinine Ratio 28.4 H (6-22) Glucose 136 H (80-110) mg/dL Lactate 1.7 (0.7-2.1) mmol/L Calcium 9.2 (8.4-10.2) mg/dL Magnesium 1.9 (1.6-2.3) mg/dL Total Bilirubin 0.3 (0.2-1.3) mg/dL AST 23 (17-59) IU/L ALT 16 (<50) IU/L Alkaline Phosphatase 57 (38-126) U/L Total Creatine Kinase 33 L (55-170) U/L CK-MB (CK-2) TNP CK-MB (CK-2) Rel Index TNP Troponin I < 0.012 (0.01-0.034) ng/mL NT-Pro-B Natriuret Pep (<125) pg/mL Total Protein 6.4 (6.3-8.2) g/dL Albumin 3.7 (3.5-5.0) g/dL Globulin 2.7 (1.7-4.1) g/dL Albumin/Globulin Ratio 1.4 (1.0-2.8) Procalcitonin (<0.5) ng/mL SARS-CoV-2 (PCR) Negative (Negative) Imaging Data Chest x-ray: Radiologist's Impression: Launch?Image [address] [address] XRay Report Signed Patient: Mak Rose MR#: [id number] : 1960 Acct:[id number] Age/Sex: 60 / M Date of Service: 11/10/21 Loc: ED Accession Number: [id number] ?? Procedure: XR chest 1V Ordering Provider: Randall Sierra D.O. PROCEDURE:? XR CHEST 1V ? INDICATIONS:? cough, fever ? TECHNIQUE:? One view of the chest was acquired.? ? COMPARISON:? [facility], CR, XR CHEST 1V, 09/27/2021, 5:03. ? FINDINGS:? ? Surgical changes and devices:? None.? ? Lungs and pleura:? Lungs are clear.? No pleural effusions or pneumothorax.? ? Mediastinum:? Mediastinal contours appear normal.? Heart size is normal.? ? Bones and chest wall:? No suspicious bony lesions.? Overlying soft tissues appear unremarkable.? ? IMPRESSION:? No acute process. ? ? Dictated by: Dana Duarte M.D. on 11/10/2021 at 19:01 ? ? Approved by: Dana Duarte M.D. on 11/10/2021 at 19:02 ? MDM Narrative Medical decision making narrative: 60-year-old male with known COPD has reassuring history, physical exam, labs, x- ray and COVID. He has improved with above-stated therapies and work of breathing is at baseline. There is no sign of pneumonia, or indications suggesting antibiotics or hospitalization. He has been out of medications but states they are waiting for him at the pharmacy and he can pick them up tomorrow. We discussed resuming a prednisone taper that he historically in place which is noted in his discharge summary. He has been given return precautions and questions have been answered to his apparent satisfaction Discharge Plan Departure Patient Disposition: Home Clinical Impression: Acute exacerbation of chronic obstructive pulmonary disease Instructions: DI for Chronic Obstructive Pulmonary Disease Activity Restrictions/Additional Instructions: *You have been diagnosed with [acute exacerbation of COPD. As we discussed her labs, x-ray and COVID test are all reassuring. *What to do: *Please continue to take your regular medications as directed. Also, as we discuss please start the prednisone taper that you historically would use. Prednisone 60 mg by mouth for 3 days, followed by prednisone 40 mg by mouth for 3 days, followed by prednisone 20 mg by mouth for 3 days [ ] New medication prescriptions sent to your pharmacy: [ ] [ ] New medication written as a paper prescription [x ] No new medications given *Please follow up with your primary care provider in 2-3 days, call for an appointment. Let them know you were seen in the Emergency Department and that we ask that you be seen in follow up. We will electronically transmit a record of today's note if your PCP is in our system *If you do not have a primary care provider please contact the [facility] Resource line at [phone]. They will ask some questions about your medical history and help get you set up with a doctor in the community. *Return to Emergency Department if you should have any new, worsening or concerning symptoms, such as [fever greater than 101 F, shaking chills, wor sening pain, persistent vomiting or other bothersome symptoms] Prescriptions: No Action albuterol sulfate [Ventolin HFA] 90 mcg/actuation HFA aerosol inhaler See Rx Instructions .ROUTE .COMPLEX Qty: 18 3RF Dose Instruction: INHALE 1 - 2 PUFFS EVERY 4 HOURS NEEDED FOR SHORTNESS OF BREATH OR WHEEZIN G Rx Instructions: INHALE 1 - 2 PUFFS EVERY 4 HOURS NEEDED FOR SHORTNESS OF BREATH OR WHEEZ ING (DME) Disabled Parking Permit Qty: 1 0RF Rx Instructions: Patient qualifies for permanent disabled parking permit. simvastatin 20 mg tablet See Rx Instructions .ROUTE .COMPLEX Qty: 90 2RF Dose Instruction: TAKE 1 TABLET BY MOUTH AT BEDTIME Rx Instructions: TAKE 1 TABLET BY MOUTH AT BEDTIME benzonatate 100 mg capsule 100 mg PO BID-TID Qty: 270 1RF Dulera 200-5 mcg/actuation HFA aerosol inhaler See Rx Instructions .ROUTE .COMPLEX Qty: 13 6RF Dose Instruction: INHALE 2 PUFFS BY MOUTH TWICE DAILY Rx Instructions: INHALE 2 PUFFS BY MOUTH TWICE DAILY clonazepam 0.5 mg tablet See Rx Instructions .ROUTE .COMPLEX Qty: 60 1RF Dose Instruction: TAKE 1 TABLET BY MOUTH TWICE DAILY NEEDED FOR ANXIETY Rx Instructions: TAKE 1 TABLET BY MOUTH TWICE DAILY NEEDED FOR ANXIETY ondansetron 4 mg tablet,disintegrating 4 mg PO BID-TID PRN (Reason: Nausea) 0RF pantoprazole [Protonix] 40 mg tablet,delayed release (DR/EC) 40 mg PO DAILY Qty: 90 3RF prednisone 20 mg tablet 40 mg PO DAILY 0RF nystatin 100,000 unit/mL suspension 5 ml PO QID Qty: 200 1RF lisinopril 10 mg tablet See Rx Instructions .ROUTE .COMPLEX Qty: 90 3RF Dose Instruction: TAKE 1 TABLET BY MOUTH DAILY Rx Instructions: TAKE 1 TABLET BY MOUTH DAILY montelukast 10 mg tablet 10 mg PO QPM Qty: 90 3RF ipratropium-albuterol 0.5 mg-3 mg(2.5 mg base)/3 mL solution for nebulization 3 ml INHALATION BID PRN (Reason: wheezing/ SOB) Qty: 90 1RF Spiriva with HandiHaler 18 mcg capsule, w/inhalation device 18 mcg inhalation DAILY Qty: 90 3RF acetaminophen 325 mg Tablet 1 dose PO PRN PRN (Reason: pain) 0RF magnesium hydroxide 400 mg/5 mL Suspension 1 dose PO PRN PRN (Reason: Indigestion) 0RF Label Comments: patient states uses often Mylanta ibuprofen 200 mg Tablet 1 dose PO PRN PRN (Reason: pain) 0RF sumatriptan succinate 50 mg Tablet 50 mg PO DAILY 0RF Rx Instructions: Take 1 tablet by mouth at onset of migraine aspirin 81 mg Tablet 81 mg PO DAILY 0RF levalbuterol HCl 1.25 mg/3 mL Solution For Nebulization 1.25 mg INHALATION Q6HR PRN (Reason: Wheezing) 0RF nitroglycerin 0.3 mg tablet, sublingual 0.3 mg sublingual Q5-15M PRN (Reason: chest pain) Qty: 20 0RF Rx Instructions: do not exceed 3 doses per episode Referrals: Saqib Oliva DO [Primary Care Provider] -
[2021-11-10 18:56] VITALS: BP 134/67; PULSE 100; RESP 30; TEMP 36.8; O2SAT 95; BMI 24.3
[2021-11-10 19:03] LABS: Add Manual Diff / Slide Review NO; Basophils Absolute Auto 0 /uL (0-100); Basophils Percent Auto 0.1 % (0-2); Eosinophils Absolute Auto 0 /uL (0-450); Eosinophils Percent Auto 0.3 % (2-4); Hematocrit 37.6 % (41-53); Hemoglobin 12.3 g/dL (13.5-17.5); Lymphocytes Absolute Auto 1000 /uL (1100-4500); Lymphocytes Percent Auto 7.8 % (25-40); Mean Corpuscular HGB Conc 32.8 % (30-36); Mean Corpuscular Hemoglobin 28.4 PG (26-34); Mean Corpuscular Volume 86.6 fL (80-100); Monocytes Absolute Auto 300 /uL (0-900); Monocytes Percent Auto 2.2 % (3-14); Neutrophils Absolute Auto 11900 /uL (1500-7000); Neutrophils Percent Auto 89.6 % (50-75); Platelet Count 207 X10^3/uL (150-400); Red Blood Cell Count 4.35 X10^6/uL (4.5-5.9); Red Cell Distribution Width 15.3 % (11.6-14.8); White Blood Cell Count 13.2 X10^3/uL (4.5-11.0)
[2021-11-10] MEDS: methylPREDNISolone 125 MG/2 ML VIAL IV (19:09)
[2021-11-10] MEDS: ALBUTEROL/IPRATROPIUM 3 ML AMPUL INH (19:17)
[2021-11-10 19:18] VITALS: PULSE 89; RESP 22; O2SAT 97
[2021-11-10 19:23] LABS: Lactate (Lactic Acid) 1.7 mmol/L (0.7-2.1)
[2021-11-10 19:24] LABS: COVID19 -Nasal RAPID Negative (Negative)
[2021-11-10 19:25] VITALS: PULSE 94; RESP 24; O2SAT 97
[2021-11-10 19:25] LABS: Alanine Aminotransferase 16 IU/L (<50); Albumin 3.7 g/dL (3.5-5.0); Albumin Globulin Ratio 1.4 (1.0-2.8); Alkaline Phosphatase 57 U/L (38-126); Aspartate Aminotransferase 23 IU/L (17-59); BUN Creatinine Ratio 28.4 (6-22); Bilirubin Total 0.3 mg/dL (0.2-1.3); Blood Urea Nitrogen 25 mg/dL (9-20); Calcium 9.2 mg/dL (8.4-10.2); Carbon Dioxide 30 mmol/L (22-32); Chloride 105 mmol/L (98-107); Creatine Kinase 33 U/L (55-170); Estimated Glomerular Filt Rate > 60 mL/min (>60); Globulin 2.7 g/dL (1.7-4.1); Glucose 136 mg/dL (80-110); HEMOLYSIS 20 (0-50); Magnesium 1.9 mg/dL (1.6-2.3); Potassium 4.9 mmol/L (3.4-5.1); Sodium 141 mmol/L (137-145); Total Protein 6.4 g/dL (6.3-8.2)
[2021-11-10 19:29] LABS: D Dimer < 200 ng/mL (<230)
[2021-11-10 19:30] VITALS: BP 115/55; PULSE 89; RESP 18; O2SAT 96
[2021-11-10 19:33] LABS: NT-proBNP (BNP-Adult 18+) 47 pg/mL (<125)
[2021-11-10 19:37] LABS: Troponin I < 0.012 ng/mL (0.01-0.034)
[2021-11-10 19:41] LABS: Procalcitonin 0.04 ng/mL (<0.5)
== END 2021-11-10 20:00 | disposition home or self-care (01) ==
PROVIDERS: Emergency Provider Emergency Medicine; PCP Family Medicine
DX: J44.1 Chronic obstructive pulmonary disease with (acute) exacerbation (principal); F17.210 Nicotine dependence, cigarettes, uncomplicated; Z99.81 Dependence on supplemental oxygen; Z88.8 Allergy status to other drugs, medicaments and biological substances; Z20.822 Contact with and (suspected) exposure to COVID-19
CPT/HCPCS: 71045; 80053; 82550; 83605; 83735; 83880; 84145; 84484; 85025; 85379; 87040; 87635; 93005; 93010; 94150; 94640; 96374; 99284; 99285; C9803; J2930

== ENCOUNTER 2021-12-15 08:57 | Emergency (ER) | payer MEDICARE, MEDICAID, SELFPAY ==
[2021-01-31 12:11] VITALS: BMI 24.0
[2021-12-15] VITALS (10 sets, daily range): BP systolic 106–142; BP diastolic 57–71; PULSE 76–86; RESP 19–35; TEMP 36.3; O2SAT 97–99; BMI 23.8
--- NOTE | 2021-12-15 09:03 | DI.RAD.S_ITS ---
PROCEDURE: XR CHEST 1V INDICATIONS: COPD with SOB TECHNIQUE: One view of the chest was acquired. With repeat of the lung bases. COMPARISON: [facility], CT, CT CHEST WO CON, 11/08/2020, 13:41. [facility], CR, XR CHEST 1V, 11/10/2021, 18:49. FINDINGS: Surgical changes and devices: None. Lungs and pleura: Lungs are clear. No pleural effusions or pneumothorax. There is hyperinflation with slight lucency throughout the lungs consistent with known emphysema. Mediastinum: Mediastinal contours appear normal. Heart size is normal. Bones and chest wall: No suspicious bony lesions. Overlying soft tissues appear unremarkable. IMPRESSION: Findings consistent with known COPD without acute cardiopulmonary abnormality. Dictated by: Jeison Freeman D.O. on 12/15/2021 at 8:59 Approved by: Jeison Freeman D.O. on 12/15/2021 at 9:01
--- NOTE | 2021-12-15 09:14 | ED_ITS ---
HPI - General Adult General Chief complaint: Shortness of Breath/Dyspnea Stated complaint: COPD exacerbation Time Seen by Provider: 12/15/21 09:01 Source: patient and EMS Mode of arrival: EMS Limitations: no limitations History of Present Illness HPI narrative: Patient is a 61-year-old male. Does have a history of COPD and emphysema and asthma. He is on home oxygen at 2 L at baseline and increases this when he is exerting himself as needed. He is also on inhalers and nebulizers. He was recently admitted to the hospital here for COPD exacerbation. He states since that time he feels like things have been worsening until the past 24-48 hours when things seemed to get worse. No fevers. He is coughing. No chest pain. No lower extremity swelling. Last evening symptoms were worsening so he did an inhaler which did help the symptoms in this morning things continue to worsen. Patient was in respiratory distress upon EMS arrival. He did receive 1 DuoNeb in route. He does feel like the DuoNeb helped somewhat but he feels like he is not back to baseline. He stated that he did not take his long-acting bronchodilator last evening by mistake. Related Data Home Medications Medication Instructions Recorded Confirmed ondansetron 4 mg disintegrating 4 mg PO BID-TID PRN 12/03/18 05/13/21 tablet acetaminophen 325 mg tablet 1 dose PO PRN PRN 12/29/18 05/13/21 ibuprofen 200 mg tablet 1 dose PO PRN PRN 12/29/18 05/13/21 magnesium hydroxide 400 mg/5 mL 1 dose PO PRN PRN 12/29/18 05/13/21 oral suspension aspirin 81 mg tablet 81 mg PO DAILY 12/30/20 05/13/21 levalbuterol HCl 1.25 mg/3 mL 1.25 mg INHALATION Q6HR PRN 12/30/20 05/13/21 solution for nebulization sumatriptan succinate 50 mg tablet 50 mg PO DAILY 12/30/20 05/13/21 prednisone 20 mg tablet 40 mg PO DAILY tab 05/13/21 05/13/21 Previous Rx's Medication Instructions Recorded albuterol sulfate 90 mcg/actuation See Rx Instructions .ROUTE 05/04/19 aerosol inhaler (Ventolin HFA) .COMPLEX #18 gram Disabled Parking Permit #1 ea 12/13/19 nitroglycerin 0.3 mg sublingual 0.3 mg SUBLINGUAL Q5-15M PRN #20 01/23/21 tablet tab pantoprazole 40 mg tablet,delayed 40 mg PO DAILY #90 tab 02/11/21 release (Protonix) simvastatin 20 mg tablet See Rx Instructions .ROUTE 03/12/21 .COMPLEX #90 tablet nystatin 100,000 unit/mL oral 5 ml PO QID #200 ml 05/27/21 suspension mometasone-formoterol HFA 200 See Rx Instructions .ROUTE 07/24/21 mcg-5 mcg/actuation aerosol .COMPLEX #13 gram inhaler (Dulera) ipratropium 0.5 mg-albuterol 3 mg 3 ml INHALATION BID PRN #90 ml 08/12/21 (2.5 mg base)/3 mL nebulization soln lisinopril 10 mg tablet See Rx Instructions .ROUTE 08/12/21 .COMPLEX #90 tab montelukast 10 mg tablet 10 mg PO QPM #90 tab 08/12/21 tiotropium bromide 18 mcg capsule 18 mcg INHALATION DAILY #90 inh 08/12/21 with inhalation device (Spiriva with HandiHaler) clonazepam 0.5 mg tablet See Rx Instructions .ROUTE 09/09/21 .COMPLEX #60 tab benzonatate 100 mg capsule 100 mg PO BID-TID #270 cap 11/28/21 Allergies Allergy/AdvReac Type Severity Reaction Status Date / Time cinnamon [CINNAMON] Allergy Severe RESP Verified 12/15/21 09:16 PROBLEMS AND SWELLING Sulfa (Sulfonamide Allergy Severe anaphylacti Verified 12/15/21 09:16 Antibiotics) c [SULFA (SULFONAMIDE ANTIBIOTICS)] fluticasone [FLUTICASONE] Allergy Intermediate FEELS Verified 12/15/21 09:16 LIKE FIRE IN THE LUNGS trimethoprim [TRIMETHOPRIM] Allergy Unknown Patient Verified 12/15/21 09:16 can't remember beclomethasone [From QVAR] AdvReac Severe tachycardia Verified 12/15/21 09:16 budesonide [From SYMBICORT] AdvReac Severe tachycardia Verified 12/15/21 09:16 formoterol [From SYMBICORT] AdvReac Severe tachycardia Verified 12/15/21 09:16 codeine [CODEINE] AdvReac Intermediate violent Verified 12/15/21 09:16 doxycycline [DOXYCYCLINE] AdvReac Mild N/V Verified 12/15/21 09:16 Review of Systems Constitutional Constitutional: Denies fever(s) Cardiovascular Cardiovascular: Denies chest pain Respiratory Respiratory: Reports as per HPI, Reports system reviewed and no additional complaints, except as documented and Reports cough Gastrointestinal Gastrointestinal: Reports system reviewed and no additional complaints, except as documented Musculoskeletal Musculoskeletal: Reports system reviewed and no additional complaints, except as documented Integumentary/Breasts Skin/Breast: Reports system reviewed and no additional complaints, except as documented Neurologic Neurologic: Reports system reviewed and no additional complaints, except as documented Hematologic/Lymphatic On Anticoagulants: No Patient History Medical History Anxiety (~2015) Asthma (Unknown) COPD (chronic obstructive pulmonary disease) (~2013) GERD with stricture Hematuria (~2014) HTN (hypertension) Hyperlipidemia (~2015) Insomnia (~2015) Palpitations TIA (transient ischemic attack) (05/2014) Surgical History No pertinent past surgical history Family History Mother Age: 83 Hypertension Sister Age: 66 Cancer Social History household members: none Smoking Status: Current some day smoker Tobacco: How many years used: 47 quit status: considering quitting second hand exposure: No alcohol intake: former substance use type: does not use Smoking Status: Current some day smoker tobacco type: cigarettes alcohol intake frequency: 0-2 drinks per day Substance Use Type: marijuana Exam Initial Vital Signs Initial Vital Signs: Vital Signs Temperature 97.3 F L 12/15/21 09:13 Pulse Rate 82 12/15/21 09:13 Respiratory Rate 19 12/15/21 09:13 Blood Pressure 138/71 12/15/21 09:13 Pulse Oximetry 99 12/15/21 09:13 Const General: cooperative and well hydrated HENMT Head: normal to inspection and normocephalic Resp Effort & Inspection: labored, no retractions and tachypneic Auscultation: diminished lung sounds and wheezes Cardio Rate: regular rate Rhythm: regular rhythm GI Inspection: normal to inspection Skin General: no rashes or lesions noted Neuro General: patient alert, patient awake and moves all extremities Extrem General: normal to inspection, capillary refill normal and No edema Psych Appearance: grossly normal and well kempt Course Orders Ordered: ED Orders 12/15/21 09:03 XR chest 1V Stat EKG-12 Lead Stat 12/15/21 09:16 Respiratory Panel (Film Array) Stat 12/15/21 09:24 Basic Metabolic Panel Stat Complete Blood Count AUTO DIFF Stat Procalcitonin Stat Discontinued Medications Albuterol/Ipratropium (Albuterol/Ipratropium 3 Ml Ampul) 3 ml INH NOW ONE Stop: 12/15/21 09:03 Last Admin: 12/15/21 09:15 Dose: 3 ml Documented by: ELIZABETH Albuterol/Ipratropium (Albuterol/Ipratropium 3 Ml Ampul) 3 ml INH NOW ONE Stop: 12/15/21 09:05 Last Admin: 12/15/21 09:16 Dose: 3 ml Documented by: ELIZABETH Methylprednisolone (Methylprednisolone 125 Mg/2 Ml Vial) 125 mg IV NOW ONE Stop: 12/15/21 09:03 Last Admin: 12/15/21 09:35 Dose: 125 mg Documented by: STEPHANIE Vital Signs Vital signs: Vital Signs - 8 hr 12/15/21 09:13 12/15/21 09:16 12/15/21 09:25 Temperature 97.3 F L Pulse Rate 82 Respiratory Rate 19 Blood Pressure 138/71 Pulse Oximetry 99 99 98 Medical Decision Making Lab Data Result diagrams: 12/15/21 09:24 12/15/21 09:24 Labs: Lab Results 12/15/21 12/15/21 12/15/21 Range/Units 09:24 09:24 09:24 WBC 9.9 (4.5-11.0) X10^3/uL RBC 4.54 (4.5-5.9) X10^6/uL Hgb 13.0 L (13.5-17.5) g/dL Hct 39.5 L (41-53) % MCV 86.9 (80-100) fL MCH 28.7 (26-34) PG MCHC 33.1 (30-36) % RDW 14.8 (11.6-14.8) % Plt Count 206 (150-400) X10^3/uL Neut % (Auto) 56.2 (50-75) % Lymph % (Auto) 36.8 (25-40) % [facility] % (Auto) 5.5 (3-14) % Eos % (Auto) 1.1 L (2-4) % Baso % (Auto) 0.4 (0-2) % Neut # (Auto) 5600 (8310-0216) /uL Lymph # (Auto) 3700 (0381-1382) /uL [facility] # (Auto) 500 (0-900) /uL Eos # (Auto) 100 (0-450) /uL Baso # (Auto) 0 (0-100) /uL Sodium 142 (137-145) mmol/L Potassium 3.9 (3.4-5.1) mmol/L Chloride 106 (98-107) mmol/L Carbon Dioxide 34 H (22-32) mmol/L BUN 29 H (9-20) mg/dL Creatinine 0.93 (0.66-1.25) mg/dL Estimated GFR > 60 (>60) mL/min BUN/Creatinine Ratio 31.2 H (6-22) Glucose 88 (80-110) mg/dL Calcium 9.4 (8.4-10.2) mg/dL Procalcitonin 0.04 (<0.5) ng/mL Imaging Data Chest x-ray: Radiologist's Impression: [address] [address] XRay Report Signed Patient: Mak Rose MR#: [id number] : 1960 Acct:[id number] Age/Sex: 61 / M Date of Service: 12/15/21 Loc: ED Accession Number: [id number] ?? Procedure: XR chest 1V Ordering Provider: Elvis Gale D.O. PROCEDURE:? XR CHEST 1V ? INDICATIONS:? COPD with SOB ? TECHNIQUE:? One view of the chest was acquired.? With repeat of the lung bases.? ? COMPARISON:? [facility], CT, CT CHEST WO CON, 11/08/2020, 13:41.? [facility], CR, XR CHEST 1V, 11/10/2021, 18:49. ? FINDINGS:? ? Surgical changes and devices:? None.? ? Lungs and pleura:? Lungs are clear.? No pleural effusions or pneumothorax.? Ther e is hyperinflation with slight lucency throughout the lungs consistent with known emphysema. ? Mediastinum:? Mediastinal contours appear normal.? Heart size is normal.? ? Bones and chest wall:? No suspicious bony lesions.? Overlying soft tissues appear unremarkable.? ? IMPRESSION:? ? Findings consistent with known COPD without acute cardiopulmonary abnormality. ? ? Dictated by: Jeison Freeman D.O. on 12/15/2021 at 8:59 ? ? Approved by: Jeison Freeman D.O. on 12/15/2021 at 9:01?? ECG Data Attestation: I personally reviewed and interpreted this ECG as follows: Interpretation: Sinus rhythm Ventricular rate is 76 Normal axis Normal QRS Normal QTC No ST T wave changes MDM Narrative Medical decision making narrative: Chest x-ray is consistent with someone with COPD. He is satting 99% on his 2 L by nasal cannula which she uses at baseline. His labs are reassuring. He feels better after the DuoNebs. He states he feels back to baseline. He is on prednisone every day. Patient states that he feels well enough to be discharged home. Plan was to have him increase his prednisone for the next couple days. He has not had any fevers. He thinks that he has had more of a sputum production recently but he states this happens to him occasionally. We discussed potentially starting him on antibiotics. He has azithromycin at home. He will do the steroids for the next couple days to see if this helps symptoms. If not he will start his antibiotics. He was given return precautions. He expressed understanding and agreement. Discharge Plan Departure Patient Disposition: Home Clinical Impression: COPD exacerbation Instructions: DI for Chronic Obstructive Pulmonary Disease Activity Restrictions/Additional Instructions: I do recommend that you increase your steroids to 40 mg once a day for the next 3 days. You can continue this out further like we discussed. Continue to use your oxygen at home as needed. Return to the emergency department for any new or worsening symptoms. Prescriptions: No Action albuterol sulfate [Ventolin HFA] 90 mcg/actuation HFA aerosol inhaler See Rx Instructions .ROUTE .COMPLEX Qty: 18 3RF Dose Instruction: INHALE 1 - 2 PUFFS EVERY 4 HOURS NEEDED FOR SHORTNESS OF BREATH OR WHE EZING Rx Instructions: INHALE 1 - 2 PUFFS EVERY 4 HOURS NEEDED FOR SHORTNESS OF BREATH OR W HEEZING (DME) Disabled Parking Permit Qty: 1 0RF Rx Instructions: Patient qualifies for permanent disabled parking permit. simvastatin 20 mg tablet See Rx Instructions .ROUTE .COMPLEX Qty: 90 2RF Dose Instruction: TAKE 1 TABLET BY MOUTH AT BEDTIME Rx Instructions: TAKE 1 TABLET BY MOUTH AT BEDTIME Dulera 200-5 mcg/actuation HFA aerosol inhaler See Rx Instructions .ROUTE .COMPLEX Qty: 13 6RF Dose Instruction: INHALE 2 PUFFS BY MOUTH TWICE DAILY Rx Instructions: INHALE 2 PUFFS BY MOUTH TWICE DAILY clonazepam 0.5 mg tablet See Rx Instructions .ROUTE .COMPLEX Qty: 60 1RF Dose Instruction: TAKE 1 TABLET BY MOUTH TWICE DAILY NEEDED FOR ANXIETY Rx Instructions: TAKE 1 TABLET BY MOUTH TWICE DAILY NEEDED FOR ANXIETY benzonatate 100 mg capsule 100 mg PO BID-TID Qty: 270 1RF ondansetron 4 mg tablet,disintegrating 4 mg PO BID-TID PRN (Reason: Nausea) 0RF pantoprazole [Protonix] 40 mg tablet,delayed release (DR/EC) 40 mg PO DAILY Qty: 90 3RF prednisone 20 mg tablet 40 mg PO DAILY 0RF nystatin 100,000 unit/mL suspension 5 ml PO QID Qty: 200 1RF lisinopril 10 mg tablet See Rx Instructions .ROUTE .COMPLEX Qty: 90 3RF Dose Instruction: TAKE 1 TABLET BY MOUTH DAILY Rx Instructions: TAKE 1 TABLET BY MOUTH DAILY montelukast 10 mg tablet 10 mg PO QPM Qty: 90 3RF ipratropium-albuterol 0.5 mg-3 mg(2.5 mg base)/3 mL solution for nebulization 3 ml INHALATION BID PRN (Reason: wheezing/ SOB) Qty: 90 1RF Spiriva with HandiHaler 18 mcg capsule, w/inhalation device 18 mcg inhalation DAILY Qty: 90 3RF acetaminophen 325 mg Tablet 1 dose PO PRN PRN (Reason: pain) 0RF magnesium hydroxide 400 mg/5 mL Suspension 1 dose PO PRN PRN (Reason: Indigestion) 0RF Label Comments: patient states uses often Mylanta ibuprofen 200 mg Tablet 1 dose PO PRN PRN (Reason: pain) 0RF sumatriptan succinate 50 mg Tablet 50 mg PO DAILY 0RF Rx Instructions: Take 1 tablet by mouth at onset of migraine aspirin 81 mg Tablet 81 mg PO DAILY 0RF levalbuterol HCl 1.25 mg/3 mL Solution For Nebulization 1.25 mg INHALATION Q6HR PRN (Reason: Wheezing) 0RF nitroglycerin 0.3 mg tablet, sublingual 0.3 mg sublingual Q5-15M PRN (Reason: chest pain) Qty: 20 0RF Rx Instructions: do not exceed 3 doses per episode Referrals: Saqib Oliva, [Primary Care Provider] -
[2021-12-15] MEDS: ALBUTEROL/IPRATROPIUM 3 ML AMPUL INH ×2 (09:15→09:16)
[2021-12-15] MEDS: methylPREDNISolone 125 MG/2 ML VIAL IV (09:35)
[2021-12-15 09:53] LABS: Add Manual Diff / Slide Review NO; Basophils Absolute Auto 0 /uL (0-100); Basophils Percent Auto 0.4 % (0-2); Eosinophils Absolute Auto 100 /uL (0-450); Eosinophils Percent Auto 1.1 % (2-4); Hematocrit 39.5 % (41-53); Lymphocytes Absolute Auto 3700 /uL (1100-4500); Lymphocytes Percent Auto 36.8 % (25-40); Mean Corpuscular HGB Conc 33.1 % (30-36); Mean Corpuscular Hemoglobin 28.7 PG (26-34); Mean Corpuscular Volume 86.9 fL (80-100); Monocytes Absolute Auto 500 /uL (0-900); Monocytes Percent Auto 5.5 % (3-14); Neutrophils Absolute Auto 5600 /uL (1500-7000); Neutrophils Percent Auto 56.2 % (50-75); Platelet Count 206 X10^3/uL (150-400); Red Blood Cell Count 4.54 X10^6/uL (4.5-5.9); Red Cell Distribution Width 14.8 % (11.6-14.8); White Blood Cell Count 9.9 X10^3/uL (4.5-11.0)
[2021-12-15 09:56] LABS: BUN Creatinine Ratio 31.2 (6-22); Blood Urea Nitrogen 29 mg/dL (9-20); Calcium 9.4 mg/dL (8.4-10.2); Carbon Dioxide 34 mmol/L (22-32); Chloride 106 mmol/L (98-107); Estimated Glomerular Filt Rate > 60 mL/min (>60); Glucose 88 mg/dL (80-110); HEMOLYSIS < 15 (0-50); Potassium 3.9 mmol/L (3.4-5.1); Sodium 142 mmol/L (137-145)
[2021-12-15 10:13] LABS: Procalcitonin 0.04 ng/mL (<0.5)
[2021-12-15 10:40] LABS: Adenovirus Not Detected (Not Detect); B. parapertussis Not Detected (Not Detecte); Coronavirus 229E Not Detected (Not Detect); Coronavirus HKU1 Not Detected (Not Detect); Coronavirus NL 63 Not Detected (Not Detect); Coronavirus OC43 Not Detected (Not Detect); Human Metapneumovirus Not Detected (Not Detect); Human Rhinovirus/Enterovirus Not Detected (Not Detect); Influenza A Not Detected (Not Detect); Influenza B Not Detected (Not Detect); Parainfluenza Virus 1 Not Detected (Not Detect); Parainfluenza Virus 2 Not Detected (Not Detect); Parainfluenza Virus 3 Not Detected (Not Detect); Parainfluenza Virus 4 Not Detected (Not Detect); Respiratory Syncytial Virus Not Detected (Not Detect); SARS- CoV-2 Not Detected (Not Detecte)
[2021-12-15 10:41] LABS: Bordetella pertussis Not Detected (Not Detecte); Chlamydophila pneumoniae Not Detected (Not Detect); Mycoplasma pneumoniae Not Detected (Not Detect)
== END 2021-12-15 11:16 | disposition home or self-care (01) ==
PROVIDERS: Emergency Provider Emergency Medicine; PCP Family Medicine
DX: J44.1 Chronic obstructive pulmonary disease with (acute) exacerbation (principal); R07.9 Chest pain, unspecified
CPT/HCPCS: 71045; 80048; 84145; 85025; 87633; 93005; 93010; 94150; 94640; 96374; 99284; 99285; J2930

== ENCOUNTER 2022-01-26 07:55 | Emergency (ER) | payer MEDICARE, MEDICAID, SELFPAY ==
[2021-01-31 12:11] VITALS: BMI 24.0
[2022-01-26 07:51] VITALS: PULSE 106; RESP 22; TEMP 36.8; O2SAT 100; BMI 23.6
--- NOTE | 2022-01-26 07:59 | DI.RAD.S_ITS ---
PROCEDURE: XR CHEST 1V INDICATIONS: soa TECHNIQUE: One view of the chest was acquired. COMPARISON: [facility], CR, XR CHEST 1V, 12/15/2021, 9:11. FINDINGS: Surgical changes and devices: None. Lungs and pleura: Lungs are clear. No pleural effusions or pneumothorax. Mediastinum: Mediastinal contours appear normal. Heart size is normal. Bones and chest wall: No suspicious bony lesions. Overlying soft tissues appear unremarkable. IMPRESSION: No acute cardiopulmonary findings Approved by: Jason Roberts M.D. on 01/26/2022 at 8:24
[2022-01-26 08:01] VITALS: BP 133/72; PULSE 108; O2SAT 99
--- NOTE | 2022-01-26 08:02 | ED_ITS ---
HPI - SOB/Dyspnea General Chief Complaint: Shortness of Breath/Dyspnea Stated Complaint: SOB Time Seen by Provider: 01/26/22 07:59 History of Present Illness HPI Narrative: Patient brought in by ambulance from home for complaints of dyspnea. Ongoing for 3 days. Patient has history of COPD on 2 L nasal cannula continuous at home. Patient does smoke cigarettes daily. Primary care Dr. Jansen. 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 Patient states that cold weather change as well as the allergens as exacerbated this episode. He states he is very sensitive to weather changes. He ran out of DuoNeb at home and that usually helps him stay at home and not go to the hospital. There was a problem with the prescription. Patient received 1 DuoNeb treatment by EMS and has helped him a lot. He was in the low 90s oxygen saturation while on 2 L nasal cannula. He is feeling much better now with improved lung sounds. He states Solu-Medrol helps him a lot as well. He did not receive this by EMS. Denies any chest pain. He states there has been sick contacts around him including COVID. However he denies any fever chills. Has chronic cough. This is not new. No extremity edema. Related Data Home Medications Medication Instructions Recorded Confirmed ondansetron 4 mg disintegrating 4 mg PO BID-TID PRN Nausea 12/03/18 01/28/22 tablet acetaminophen 325 mg tablet 1 dose PO PRN PRN pain 12/29/18 01/28/22 ibuprofen 200 mg tablet 1 dose PO PRN PRN pain 12/29/18 01/28/22 magnesium hydroxide 400 mg/5 mL 1 dose PO PRN PRN Indigestion 12/29/18 01/28/22 oral suspension aspirin 81 mg tablet 81 mg PO DAILY 12/30/20 01/28/22 prednisone 20 mg tablet 40 mg PO DAILY COPD 05/13/21 01/28/22 clonazepam 0.5 mg tablet 0.5 mg PO BID PRN Anxiety 01/28/22 01/28/22 lisinopril 10 mg tablet 10 mg PO DAILY 01/28/22 01/28/22 simvastatin 20 mg tablet 20 mg PO DAILY 01/28/22 01/28/22 Previous Rx's Medication Instructions Recorded albuterol sulfate 90 mcg/actuation See Rx Instructions .Route 05/04/19 aerosol inhaler (Ventolin HFA) .COMPLEX #18 grams Disabled Parking Permit #1 ea 06/24/19 nitroglycerin 0.3 mg sublingual 0.3 mg sublingual Q5-15M PRN chest 01/23/21 tablet pain #20 tabs nystatin 100,000 unit/mL oral 5 ml PO QID #200 mL 05/27/21 suspension mometasone-formoterol HFA 200 See Rx Instructions .Route 07/24/21 mcg-5 mcg/actuation aerosol .COMPLEX #13 grams inhaler (Dulera) montelukast 10 mg tablet 10 mg PO QPM #90 tabs 08/12/21 tiotropium bromide 18 mcg capsule 18 mcg inhalation DAILY #90 08/12/21 with inhalation device (Spiriva inhalations with HandiHaler) benzonatate 100 mg capsule 100 mg PO BID-TID #270 caps 11/28/21 ipratropium 0.5 mg-albuterol 3 mg 3 ml inhalation BID PRN wheezing/ 01/24/22 (2.5 mg base)/3 mL nebulization SOB #90 mL soln levalbuterol HCl 1.25 mg/3 mL 1.25 mg (3 mL) inhalation Q6HR PRN 01/24/22 solution for nebulization Wheezing #75 mL ipratropium 0.5 mg-albuterol 3 mg 3 ml inhalation Q4-6H PRN 01/26/22 (2.5 mg base)/3 mL nebulization shortness of breath or wheezing soln #90 mL Allergies Allergy/AdvReac Type Severity Reaction Status Date / Time cinnamon [CINNAMON] Allergy Severe RESP Verified 12/15/21 09:16 PROBLEMS AND SWELLING Sulfa (Sulfonamide Allergy Severe anaphylacti Verified 12/15/21 09:16 Antibiotics) c [SULFA (SULFONAMIDE ANTIBIOTICS)] fluticasone [FLUTICASONE] Allergy Intermediate FEELS Verified 12/15/21 09:16 LIKE FIRE IN THE LUNGS trimethoprim [TRIMETHOPRIM] Allergy Unknown Patient Verified 12/15/21 09:16 can't remember beclomethasone [From QVAR] AdvReac Severe tachycardia Verified 12/15/21 09:16 budesonide [From SYMBICORT] AdvReac Severe tachycardia Verified 12/15/21 09:16 formoterol [From SYMBICORT] AdvReac Severe tachycardia Verified 12/15/21 09:16 codeine [CODEINE] AdvReac Intermediate violent Verified 12/15/21 09:16 doxycycline [DOXYCYCLINE] AdvReac Mild N/V Verified 12/15/21 09:16 Review of Systems Review of Systems Narrative: GENERAL: Denies chills, fatigue, malaise, fever, sweats. HEENT: Denies sinus pain, ear pain, sore throat RESPIRATORY: Positive for dyspnea, cough CARDIOVASCULAR: Denies chest pain, palpitations GASTROINTESTINAL: Denies nausea, vomiting, abdominal pain : Denies dysuria, frequency, hematuria MUSCULOSKELETAL: denies muscle or bony pain SKIN: Denies rash, skin lesions NEUROLOGIC: Denies weakness, numbness ROS Unobtainable: All systems reviewed & are unremarkable except as noted in HPI and below Patient History Medical History Anxiety (~2015) Asthma (Unknown) COPD (chronic obstructive pulmonary disease) (~2013) GERD with stricture Hematuria (~2014) HTN (hypertension) Hyperlipidemia (~2015) Insomnia (~2015) Palpitations TIA (transient ischemic attack) (05/2014) Surgical History No pertinent past surgical history Family History Mother Age: 83 Hypertension Sister Age: 66 Cancer Social History household members: none Smoking Status: Current some day smoker Tobacco: How many years used: 47 quit status: considering quitting second hand exposure: No alcohol intake: former substance use type: does not use Smoking Status: Current some day smoker tobacco type: cigarettes alcohol intake frequency: 0-2 drinks per day Substance Use Type: marijuana Exam Narrative Exam Narrative: GENERAL: in no distress, not toxic not dyspneic HEAD: Normocephalic. EYES: Pupils equal round No scleral icterus. ENT: Mucous membranes moist. NECK: Trachea midline. CARDIOVASCULAR: Regular rate and rhythm without murmurs RESPIRATORY: Clear to auscultation. Breath sounds equal bilaterally. No wheezes, rales, or rhonchi. There is diminished bilateral lung sounds. Patient speaking near full sentences. GASTROINTESTINAL: Abdomen soft, non-tender EXTREMITIES: No gross deformities. BACK: No flank tenderness. NEURO: AOx4. SKIN: Warm and dry PSYCH: Not anxious, is cooperative Initial Vital Signs Initial Vital Signs: Vital Signs Temperature 98.2 F 01/26/22 07:51 Pulse Rate 106 H 01/26/22 07:51 Respiratory Rate 22 01/26/22 07:51 Pulse Oximetry 100 01/26/22 07:51 Oxygen Delivery Method 01/26/22 07:51 Oxygen Flow Rate 4 01/26/22 07:51 Course Course Course Narrative: Reviewed white cell count with patient. Mother at bedside. Patient states he has been on daily steroids every day for at least 3 weeks. Orders Ordered: Discontinued Medications Sodium Chloride (Normal Saline 0.9%) 500 mls @ 1,000 mls/hr IV BOLUS ONE Stop: 01/26/22 08:28 Last Infusion: 01/26/22 09:20 Dose: 0 mls/hr Documented By: Admin: 01/26/22 08:12 Dose: 1,000 mls/hr Documented By: PRECIOUS Methylprednisolone (Methylprednisolone 125 Mg/2 Ml Vial) 125 mg IV NOW ONE Stop: 01/26/22 08:00 Last Admin: 01/26/22 08:12 Dose: 125 mg Documented By: PRCEIOUS Reevaluation(s) Reevaluation #1: Patient feeling much better. Had breathing treatment prior to arrival by EMS. Solu-Medrol has helped him significantly. Has had IV fluids. Patient speaking full sentences with mother at bedside. He is at baseline at this time. He agrees for discharge home and desires discharge home. Viral swab reviewed with him. He will get refill of DuoNeb prescription. All questions were answered. He feels very good and desires discharge home Time: 09:43 Vital Signs Vital signs: Vital Signs - 8 hr 01/26/22 07:51 01/26/22 08:01 01/26/22 08:01 Temperature 98.2 F Pulse Rate 106 H 108 H Respiratory Rate 22 Blood Pressure 133/72 Pulse Oximetry 100 99 Oxygen Delivery Method Nasal Cannula Oxygen Flow Rate 4 01/26/22 08:30 01/26/22 08:30 01/26/22 09:00 Temperature Pulse Rate 101 H Respiratory Rate 28 H Blood Pressure 135/64 136/63 Pulse Oximetry 100 Oxygen Delivery Method Nasal Cannula Oxygen Flow Rate 01/26/22 09:00 01/26/22 09:30 01/26/22 09:30 Temperature Pulse Rate 94 H 94 H Respiratory Rate 30 H 33 H Blood Pressure 128/66 Pulse Oximetry 100 99 Oxygen Delivery Method Nasal Cannula Oxygen Flow Rate 4 MDM - SOB/Dyspnea Differential Diagnosis Differential diagnosis: Likely acute exacerbation of chronic obstructive airways disease, congestive heart failure, community acquired pneumonia and asthma with exacerbation Lab Data Result diagrams: 01/26/22 08:00 01/26/22 08:00 Labs: Lab Results 01/26/22 01/26/22 01/26/22 Range/Units 08:00 08:00 08:00 WBC 23.9 H (4.5-11.0) X10^3/uL RBC 4.65 (4.5-5.9) X10^6/uL Hgb 13.1 L (13.5-17.5) g/dL Hct 40.4 L (41-53) % MCV 86.8 (80-100) fL MCH 28.2 (26-34) PG MCHC 32.5 (30-36) % RDW 14.7 (11.6-14.8) % Plt Count 250 (150-400) X10^3/uL Neut % (Auto) 86.0 H (50-75) % Lymph % (Auto) 9.0 L (25-40) % Swain % (Auto) 3.9 (3-14) % Eos % (Auto) 0.5 L (2-4) % Baso % (Auto) 0.6 (0-2) % Neut # (Auto) 29251 H (4074-9325) /uL Lymph # (Auto) 2100 (7947-2279) /uL Swain # (Auto) 900 (0-900) /uL Eos # (Auto) 100 (0-450) /uL Baso # (Auto) 200 H (0-100) /uL Sodium 141 (137-145) mmol/L Potassium 3.9 (3.4-5.1) mmol/L Chloride 100 (98-107) mmol/L Carbon Dioxide 35 H (22-32) mmol/L BUN 28 H (9-20) mg/dL Creatinine 0.81 (0.66-1.25) mg/dL Estimated GFR > 60 (>60) mL/min BUN/Creatinine Ratio 34.6 H (6-22) Glucose 106 (80-110) mg/dL Lactate 1.0 (0.7-2.1) mmol/L Calcium 9.4 (8.4-10.2) mg/dL Total Bilirubin 0.4 (0.2-1.3) mg/dL AST 24 (17-59) IU/L ALT 18 (<50) IU/L Alkaline Phosphatase 63 (38-126) U/L Total Creatine Kinase 36 L (55-170) U/L CK-MB (CK-2) TNP CK-MB (CK-2) Rel Index TNP Troponin I < 0.012 (0.01-0.034) ng/mL Total Protein 7.7 (6.3-8.2) g/dL Albumin 4.3 (3.5-5.0) g/dL Globulin 3.4 (1.7-4.1) g/dL Albumin/Globulin Ratio 1.3 (1.0-2.8) Procalcitonin (<0.5) ng/mL Chlamy pneumoniae PCR (Not Detect) Adenovirus (PCR) (Not Detect) B. pertussis DNA (PCR) (Not Detecte) B.parapertussis DNA PCR (Not Detecte) Coronavirus OC43 (PCR) (Not Detect) Coronavirus HKU1 (PCR) (Not Detect) Coronavirus 229E (PCR) (Not Detect) SARS-CoV-2 (PCR) (Not Detecte) Coronavirus NL63 (PCR) (Not Detect) Human Metapneumovir PCR (Not Detect) Influenza Type A (PCR) (Not Detect) Influenza Type B (PCR) (Not Detect) M. pneumoniae (PCR) (Not Detect) Parainfluenza 1 (PCR) (Not Detect) Parainfluenza 2 (PCR) (Not Detect) Parainfluenza 3 (PCR) (Not Detect) Parainfluenza 4 (PCR) (Not Detect) RSV (PCR) (Not Detect) Entero/Rhino (PCR) (Not Detect) 01/26/22 01/26/22 Range/Units 08:00 08:25 WBC (4.5-11.0) X10^3/uL RBC (4.5-5.9) X10^6/uL Hgb (13.5-17.5) g/dL Hct (41-53) % MCV (80-100) fL MCH (26-34) PG MCHC (30-36) % RDW (11.6-14.8) % Plt Count (150-400) X10^3/uL Neut % (Auto) (50-75) % Lymph % (Auto) (25-40) % Swain % (Auto) (3-14) % Eos % (Auto) (2-4) % Baso % (Auto) (0-2) % Neut # (Auto) (4030-8825) /uL Lymph # (Auto) (4332-5370) /uL Swain # (Auto) (0-900) /uL Eos # (Auto) (0-450) /uL Baso # (Auto) (0-100) /uL Sodium (137-145) mmol/L Potassium (3.4-5.1) mmol/L Chloride (98-107) mmol/L Carbon Dioxide (22-32) mmol/L BUN (9-20) mg/dL Creatinine (0.66-1.25) mg/dL Estimated GFR (>60) mL/min BUN/Creatinine Ratio (6-22) Glucose (80-110) mg/dL Lactate (0.7-2.1) mmol/L Calcium (8.4-10.2) mg/dL Total Bilirubin (0.2-1.3) mg/dL AST (17-59) IU/L ALT (<50) IU/L Alkaline Phosphatase (38-126) U/L Total Creatine Kinase (55-170) U/L CK-MB (CK-2) CK-MB (CK-2) Rel Index Troponin I (0.01-0.034) ng/mL Total Protein (6.3-8.2) g/dL Albumin (3.5-5.0) g/dL Globulin (1.7-4.1) g/dL Albumin/Globulin Ratio (1.0-2.8) Procalcitonin 0.09 (<0.5) ng/mL Chlamy pneumoniae PCR Not detected (Not Detect) Adenovirus (PCR) Not detected (Not Detect) B. pertussis DNA (PCR) Not detected (Not Detecte) B.parapertussis DNA PCR Not detected (Not Detecte) Coronavirus OC43 (PCR) Not detected (Not Detect) Coronavirus HKU1 (PCR) Not detected (Not Detect) Coronavirus 229E (PCR) Detected H (Not Detect) SARS-CoV-2 (PCR) Not detected (Not Detecte) Coronavirus NL63 (PCR) Not detected (Not Detect) Human Metapneumovir PCR Not detected (Not Detect) Influenza Type A (PCR) Not detected (Not Detect) Influenza Type B (PCR) Not detected (Not Detect) M. pneumoniae (PCR) Not detected (Not Detect) Parainfluenza 1 (PCR) Not detected (Not Detect) Parainfluenza 2 (PCR) Not detected (Not Detect) Parainfluenza 3 (PCR) Not detected (Not Detect) Parainfluenza 4 (PCR) Not detected (Not Detect) RSV (PCR) Not detected (Not Detect) Entero/Rhino (PCR) Not detected (Not Detect) Imaging Data Chest x-ray: Radiologist's Impression: [address] [address] XRay Report Signed Patient: Mak Rose MR#: [id number] : 1960 Acct:[id number] Age/Sex: 61 / M Date of Service: 01/26/22 Loc: ED Accession Number: [id number] ?? Procedure: XR chest 1V Ordering Provider: Sanjeev Jaramillo MD PROCEDURE:? XR CHEST 1V ? INDICATIONS:? soa ? TECHNIQUE:? One view of the chest was acquired.? ? COMPARISON:? [facility], , XR CHEST 1V, 12/15/2021, 9:11. ? FINDINGS:? ? Surgical changes and devices:? None.? ? Lungs and pleura:? Lungs are clear.? No pleural effusions or pneumothorax.? ? Mediastinum:? Mediastinal contours appear normal.? Heart size is normal.? ? Bones and chest wall:? No suspicious bony lesions.? Overlying soft tissues appear unremarkable.? ? IMPRESSION:? No acute cardiopulmonary findings ? ? ? Approved by: Jason Roberts M.D. on 01/26/2022 at 8:24? ECG Data Interpretation: Sinus tachycardia rate [address] elevation or depression MDM Narrative Medical decision making narrative: Appropriate for discharge home. Patient feeling much better at time of discharge. At baseline. 2 L nasal cannula. Mother at bedside. Patient speaking full sentences and very quickly without any distress. And improved lung sounds bilaterally. Return precautions reviewed with patient and mother. They desired discharge home. Discharge Plan Departure Patient Disposition: Home Clinical Impression: Acute exacerbation of chronic obstructive airways disease, Upper respiratory infection, viral Instructions: Serious Ways to Stop Smoking, Tips to Help You Stop Smoking, DI for Chronic Obstructive Pulmonary Disease, DI for Viral Upper Respiratory Infection -- Adult Activity Restrictions/Additional Instructions: Please try to stop smoking. May continue home medications. Prescription refill for DuoNeb has provided as well as cough medication. Return if worsening questions or concerns. See family doctor this week for re-evaluation. Your viral swab of the nose does show coronavirus but it is not COVID-19. Be sure dose around you continue wearing a mask. Prescriptions: New ipratropium-albuterol 0.5 mg-3 mg(2.5 mg base)/3 mL solution for nebulization 3 ml INHALATION Q4-6H PRN (Reason: shortness of breath or wheezing) Qty: 90 0RF No Action albuterol sulfate [Ventolin HFA] 90 mcg/actuation HFA aerosol inhaler See Rx Instructions .ROUTE .COMPLEX Qty: 18 3RF Dose Instruction: INHALE 1 - 2 PUFFS EVERY 4 HOURS NEEDED FOR SHORTNESS OF BREATH OR WHEEZING Rx Instructions: INHALE 1 - 2 PUFFS EVERY 4 HOURS NEEDED FOR SHORTNESS OF BREATH OR WHEEZING (DME) Disabled Parking Permit Qty: 1 0RF Rx Instructions: Patient qualifies for permanent disabled parking permit. Dulera 200-5 mcg/actuation HFA aerosol inhaler See Rx Instructions .ROUTE .COMPLEX Qty: 13 6RF Dose Instruction: INHALE 2 PUFFS BY MOUTH TWICE DAILY Rx Instructions: INHALE 2 PUFFS BY MOUTH TWICE DAILY benzonatate 100 mg capsule 100 mg PO BID-TID Qty: 270 1RF levalbuterol HCl 1.25 mg/3 mL solution for nebulization 1.25 mg INHALATION Q6HR PRN (Reason: Wheezing) Qty: 75 5RF ipratropium-albuterol 0.5 mg-3 mg(2.5 mg base)/3 mL solution for nebulization 3 ml INHALATION BID PRN (Reason: wheezing/ SOB) Qty: 90 11RF ondansetron 4 mg tablet,disintegrating 4 mg PO BID-TID PRN (Reason: Nausea) prednisone 20 mg tablet 40 mg PO DAILY nystatin 100,000 unit/mL suspension 5 ml PO QID Qty: 200 1RF montelukast 10 mg tablet 10 mg PO QPM Qty: 90 3RF Spiriva with HandiHaler 18 mcg capsule, w/inhalation device 18 mcg inhalation DAILY Qty: 90 3RF acetaminophen 325 mg Tablet 1 dose PO PRN PRN (Reason: pain) magnesium hydroxide 400 mg/5 mL Suspension 1 dose PO PRN PRN (Reason: Indigestion) Label Comments: patient states uses often Mylanta ibuprofen 200 mg Tablet 1 dose PO PRN PRN (Reason: pain) aspirin 81 mg Tablet 81 mg PO DAILY nitroglycerin 0.3 mg tablet, sublingual 0.3 mg sublingual Q5-15M PRN (Reason: chest pain) Qty: 20 0RF Rx Instructions: do not exceed 3 doses per episode clonazepam 0.5 mg tablet 0.5 mg PO BID PRN (Reason: Anxiety) simvastatin 20 mg tablet 20 mg PO DAILY lisinopril 10 mg tablet 10 mg PO DAILY Referrals: Saqib Oliva DO [Primary Care Provider] - Visit Report Forms: Patient Portal/API
[2022-01-26] MEDS: SODIUM CHLORIDE 0.9% 500 ML 1000 ML IV (08:12)
[2022-01-26] MEDS: methylPREDNISolone 125 MG/2 ML VIAL IV (08:12)
[2022-01-26 08:18] LABS: Add Manual Diff / Slide Review NO; Basophils Absolute Auto 200 /uL (0-100); Basophils Percent Auto 0.6 % (0-2); Eosinophils Absolute Auto 100 /uL (0-450); Eosinophils Percent Auto 0.5 % (2-4); Hematocrit 40.4 % (41-53); Hemoglobin 13.1 g/dL (13.5-17.5); Lymphocytes Absolute Auto 2100 /uL (1100-4500); Mean Corpuscular HGB Conc 32.5 % (30-36); Mean Corpuscular Hemoglobin 28.2 PG (26-34); Mean Corpuscular Volume 86.8 fL (80-100); Monocytes Absolute Auto 900 /uL (0-900); Monocytes Percent Auto 3.9 % (3-14); Neutrophils Absolute Auto 20500 /uL (1500-7000); Platelet Count 250 X10^3/uL (150-400); Red Blood Cell Count 4.65 X10^6/uL (4.5-5.9); Red Cell Distribution Width 14.7 % (11.6-14.8); White Blood Cell Count 23.9 X10^3/uL (4.5-11.0)
[2022-01-26 08:23] LABS: Alanine Aminotransferase 18 IU/L (<50); Albumin 4.3 g/dL (3.5-5.0); Albumin Globulin Ratio 1.3 (1.0-2.8); Alkaline Phosphatase 63 U/L (38-126); Aspartate Aminotransferase 24 IU/L (17-59); BUN Creatinine Ratio 34.6 (6-22); Bilirubin Total 0.4 mg/dL (0.2-1.3); Blood Urea Nitrogen 28 mg/dL (9-20); Calcium 9.4 mg/dL (8.4-10.2); Carbon Dioxide 35 mmol/L (22-32); Chloride 100 mmol/L (98-107); Creatine Kinase 36 U/L (55-170); Estimated Glomerular Filt Rate > 60 mL/min (>60); Globulin 3.4 g/dL (1.7-4.1); Glucose 106 mg/dL (80-110); HEMOLYSIS 16 (0-50); Potassium 3.9 mmol/L (3.4-5.1); Sodium 141 mmol/L (137-145); Total Protein 7.7 g/dL (6.3-8.2)
[2022-01-26 08:30] VITALS: BP 135/64; PULSE 101; RESP 28; O2SAT 100
[2022-01-26 08:35] LABS: Troponin I < 0.012 ng/mL (0.01-0.034)
[2022-01-26 09:00] VITALS: BP 136/63; PULSE 94; RESP 30; O2SAT 100
[2022-01-26 09:21] LABS: Procalcitonin 0.09 ng/mL (<0.5)
[2022-01-26 09:30] VITALS: BP 128/66; PULSE 94; RESP 33; O2SAT 99
[2022-01-26 09:32] LABS: Adenovirus Not Detected (Not Detect); Coronavirus 229E Detected (Not Detect); SARS- CoV-2 Not Detected (Not Detecte)
[2022-01-26 09:33] LABS: B. parapertussis Not Detected (Not Detecte); Bordetella pertussis Not Detected (Not Detecte); Chlamydophila pneumoniae Not Detected (Not Detect); Coronavirus HKU1 Not Detected (Not Detect); Coronavirus NL 63 Not Detected (Not Detect); Coronavirus OC43 Not Detected (Not Detect); Human Metapneumovirus Not Detected (Not Detect); Human Rhinovirus/Enterovirus Not Detected (Not Detect); Influenza A Not Detected (Not Detect); Influenza B Not Detected (Not Detect); Mycoplasma pneumoniae Not Detected (Not Detect); Parainfluenza Virus 1 Not Detected (Not Detect); Parainfluenza Virus 2 Not Detected (Not Detect); Parainfluenza Virus 3 Not Detected (Not Detect); Parainfluenza Virus 4 Not Detected (Not Detect); Respiratory Syncytial Virus Not Detected (Not Detect)
== END 2022-01-26 10:01 | disposition home or self-care (01) ==
PROVIDERS: Emergency Provider Emergency Medicine; PCP Family Medicine
DX: J44.1 Chronic obstructive pulmonary disease with (acute) exacerbation (principal); J06.9 Acute upper respiratory infection, unspecified; R00.0 Tachycardia, unspecified; Z20.822 Contact with and (suspected) exposure to COVID-19
CPT/HCPCS: 71045; 80053; 82550; 83605; 84145; 84484; 85025; 87633; 93005; 96361; 96374; 99284; 99285; J2930

== ENCOUNTER 2022-01-27 23:35 | Inpatient (IN) | payer MEDICARE, MEDICAID, SELFPAY ==
[2021-01-31 12:11] VITALS: BMI 24.0
[2022-01-27 23:48] VITALS: BP 154/71; PULSE 120; RESP 24; TEMP 36.8; O2SAT 97
[2022-01-28] VITALS (12 sets, daily range): BP systolic 115–177; BP diastolic 61–81; PULSE 97–115; RESP 17–24; TEMP 36.3–36.4; O2SAT 94–100; BMI 22.1
--- NOTE | 2022-01-28 00:01 | DI.RAD.S_ITS ---
PROCEDURE: XR CHEST 1V INDICATIONS: sob TECHNIQUE: One view of the chest was acquired. COMPARISON: [facility], CR, XR CHEST 1V, 11/10/2021, 18:49. [facility], CR, XR CHEST 1V, 09/27/2021, 5:03. [facility], CR, XR CHEST 1V, 05/26/2021, 14:49. [facility], CR, XR CHEST 1V, 01/26/2022, 8:04. FINDINGS: Surgical changes and devices: None. Lungs and pleura: There is hyperinflation of the lungs with flattening of the hemidiaphragms compatible with COPD. There are a few patchy bilateral indistinct opacities. No pleural effusions or pneumothorax. Mediastinum: Mediastinal contours appear normal. Heart size is normal. Bones and chest wall: No suspicious bony lesions. Overlying soft tissues appear unremarkable. IMPRESSION: 1. Findings consistent with COPD redemonstrated. 2. Bilateral patchy indistinct opacities are nonspecific but may reflect atypical pneumonia. Dictated by: Pernell Adams M.D. on 01/28/2022 at 0:48 Approved by: Pernell Adams M.D. on 01/28/2022 at 0:50
[2022-01-28] MEDS: ALBUTEROL 2.5 MG/3 ML NEB (ADULT) 10 MG INH (00:03)
--- NOTE | 2022-01-28 00:03 | ED_ITS ---
HPI - SOB/Dyspnea General Chief Complaint: Shortness of Breath/Dyspnea Stated Complaint: SOB/ infection Time Seen by Provider: 01/27/22 23:51 Source: patient and EMS Mode of arrival: EMS Limitations: no limitations History of Present Illness HPI Narrative: This is a 61-year-old male with COPD on 2 L nasal cannula at home, follows with pulmonology at [facility]. Patient states he is had 5 days of cough with increasing shortness of breath and was seen on the . He was found to have coronavirus infection but not COVID-19 patient states that he has increase his O2 use to 4 L, he is had worsening tightness overnight he had improved with steroids in his taking 40 mg daily since yesterday. He states no fevers or chills. Cough with a little bit of productive sputum he feels very tight. No pain. He is had a persistent cough. No new swelling in his extremities. No nausea or vomiting, no GI or urinary symptoms. Patient does take medication for blood pressure and dyslipidemia, he is on a steroid inhaler. He does continue to smoke tobacco. Related Data Home Medications Medication Instructions Recorded Confirmed ondansetron 4 mg disintegrating 4 mg PO BID-TID PRN Nausea 12/03/18 01/28/22 tablet acetaminophen 325 mg tablet 1 dose PO PRN PRN pain 12/29/18 01/28/22 ibuprofen 200 mg tablet 1 dose PO PRN PRN pain 12/29/18 01/28/22 magnesium hydroxide 400 mg/5 mL 1 dose PO PRN PRN Indigestion 12/29/18 01/28/22 oral suspension aspirin 81 mg tablet 81 mg PO DAILY 12/30/20 01/28/22 sumatriptan succinate 50 mg tablet 50 mg PO DAILY 12/30/20 01/28/22 prednisone 20 mg tablet 40 mg PO DAILY COPD 05/13/21 01/28/22 clonazepam 0.5 mg tablet 0.5 mg PO BID PRN Anxiety 01/28/22 01/28/22 lisinopril 10 mg tablet 10 mg PO DAILY 01/28/22 01/28/22 simvastatin 20 mg tablet 20 mg PO DAILY 01/28/22 01/28/22 Previous Rx's Medication Instructions Recorded albuterol sulfate 90 mcg/actuation See Rx Instructions .Route 05/04/19 aerosol inhaler (Ventolin HFA) .COMPLEX #18 grams Disabled Parking Permit #1 ea 06/24/19 nitroglycerin 0.3 mg sublingual 0.3 mg sublingual Q5-15M PRN chest 01/23/21 tablet pain #20 tabs nystatin 100,000 unit/mL oral 5 ml PO QID #200 mL 05/27/21 suspension mometasone-formoterol HFA 200 See Rx Instructions .Route 07/24/21 mcg-5 mcg/actuation aerosol .COMPLEX #13 grams inhaler (Dulera) montelukast 10 mg tablet 10 mg PO QPM #90 tabs 08/12/21 tiotropium bromide 18 mcg capsule 18 mcg inhalation DAILY #90 08/12/21 with inhalation device (Spiriva inhalations with HandiHaler) benzonatate 100 mg capsule 100 mg PO BID-TID #270 caps 11/28/21 ipratropium 0.5 mg-albuterol 3 mg 3 ml inhalation BID PRN wheezing/ 01/24/22 (2.5 mg base)/3 mL nebulization SOB #90 mL soln levalbuterol HCl 1.25 mg/3 mL 1.25 mg (3 mL) inhalation Q6HR PRN 01/24/22 solution for nebulization Wheezing #75 mL ipratropium 0.5 mg-albuterol 3 mg 3 ml inhalation Q4-6H PRN 01/26/22 (2.5 mg base)/3 mL nebulization shortness of breath or wheezing soln #90 mL Allergies Allergy/AdvReac Type Severity Reaction Status Date / Time cinnamon [CINNAMON] Allergy Severe RESP Verified 12/15/21 09:16 PROBLEMS AND SWELLING Sulfa (Sulfonamide Allergy Severe anaphylacti Verified 12/15/21 09:16 Antibiotics) c [SULFA (SULFONAMIDE ANTIBIOTICS)] fluticasone [FLUTICASONE] Allergy Intermediate FEELS Verified 12/15/21 09:16 LIKE FIRE IN THE LUNGS trimethoprim [TRIMETHOPRIM] Allergy Unknown Patient Verified 12/15/21 09:16 can't remember beclomethasone [From QVAR] AdvReac Severe tachycardia Verified 12/15/21 09:16 budesonide [From SYMBICORT] AdvReac Severe tachycardia Verified 12/15/21 09:16 formoterol [From SYMBICORT] AdvReac Severe tachycardia Verified 12/15/21 09:16 codeine [CODEINE] AdvReac Intermediate violent Verified 12/15/21 09:16 doxycycline [DOXYCYCLINE] AdvReac Mild N/V Verified 12/15/21 09:16 Review of Systems Review of Systems ROS Unobtainable: All systems reviewed & are unremarkable except as noted in HPI and below Patient History Medical History Anxiety (~2015) Asthma (Unknown) COPD (chronic obstructive pulmonary disease) (~2013) GERD with stricture Hematuria (~2014) HTN (hypertension) Hyperlipidemia (~2015) Insomnia (~2015) Palpitations TIA (transient ischemic attack) (05/2014) Surgical History No pertinent past surgical history Family History Mother Age: 83 Hypertension Sister Age: 66 Cancer Social History household members: none Smoking Status: Current some day smoker Tobacco: How many years used: 47 quit status: considering quitting second hand exposure: No alcohol intake: former substance use type: does not use Smoking Status: Current some day smoker tobacco type: cigarettes alcohol intake frequency: 0-2 drinks per day Substance Use Type: marijuana Exam Narrative Exam Narrative: GEN: well nourished, well appearing male, alert and oriented x 3, patient appears to be in moderate distress. HEENT: Atraumatic, pupils are equal round reactive to light, extraocular movements are intact, nares are clear. Throat is clear without any exudates, erythema, tonsillar enlargement or uvular deviation HEART: Regular rate and rhythm without murmur, clicks, rubs. No carotid bruits, pulses are equal in upper and lower extremities LUNGS:Lungs decreased breath sounds bilaterally, no wheeze appreciated, no crackles or rales, patient is tachypneic with 2-3 word sentences. Has productive sputum with white yellowish discoloration. ABD:bowel sounds normal, soft, non-tender, no guarding, rebound, rigidity, no masses noted, no hepatosplenomegaly :No CVA tenderness MSCL: Non-tender, full range of motion, normal gait NEURO:CN 2-12 intact, sensation normal. SKIN: No rash, erythema or skin changes. Initial Vital Signs Initial Vital Signs: Vital Signs Temperature 98.3 F 01/27/22 23:48 Pulse Rate 120 H 01/27/22 23:48 Respiratory Rate 24 01/27/22 23:48 Blood Pressure 154/71 H 01/27/22 23:48 Pulse Oximetry 97 01/27/22 23:48 Oxygen Delivery Method 01/27/22 23:48 Course Orders Ordered: ED Orders 01/27/22 23:45 Complete Blood Count AUTO DIFF Stat Comprehensive Metabolic Panel Stat Lactate (Lactic Acid) Stat 01/27/22 23:54 EKG-12 Lead Stat Measure peak expiratory flow ONCE RT Consult Eval and Treat Now 01/27/22 23:56 COVID19 -Nasal RAPID/Pre-Proc Stat 01/28/22 00:01 XR chest 1V Stat Lipase Stat Partial Thromboplastin Time Stat Procalcitonin Stat Prothrombin Time INR Stat Troponin & CK Cardiac Panel Stat 01/28/22 00:02 NT-proBNP (BNP-Adult 18+) Stat 01/28/22 00:47 CT angio chest PE protocol Stat 01/28/22 02:09 Sputum Culture Stat 01/28/22 02:25 Blood Culture Stat 01/28/22 23:40 EKG-12 Lead Stat Acetaminophen (Acetaminophen 325 Mg Tablet) 650 mg PO Q6HR PRN PRN Reason: Fever/Mild Pain (1-3) Albuterol (Albuterol 2.5 Mg/3 Ml Neb (Adult)) 2.5 mg INH [id number] PRN PRN Reason: Shortness Of Breath Albuterol/Ipratropium (Albuterol/Ipratropium 3 Ml Ampul) 3 ml INH [id number] ROBERT Aspirin (Aspirin Ec 81 Mg Tablet) 81 mg PO DAILY [facility] Enoxaparin Sodium (Enoxaparin 40 Mg/0.4 Ml Syringe) 40 mg SUBCUT DAILY [facility] Azithromycin 500 mg/ Dextrose 250 mls @ 250 mls/hr IV Q24H ROBERT Last Admin: 01/28/22 06:17 Dose: 250 mls/hr Documented By: CN Methylprednisolone (Methylprednisolone 125 Mg/2 Ml Vial) 60 mg IV Q12H [facility] Montelukast Sodium (Montelukast 10 Mg Tablet) 10 mg PO QPM [facility] Ondansetron HCl (Ondansetron 4 Mg/2 Ml Inj) 4 mg IV Q8HR PRN PRN Reason: Nausea And Vomiting Discontinued Medications Acetaminophen (Acetaminophen 325 Mg Tablet) 975 mg PO NOW ONE Stop: 01/28/22 01:15 Last Admin: 01/28/22 01:40 Dose: Not Given Documented By: KP Albuterol (Albuterol 2.5 Mg/3 Ml Neb (Adult)) 10 mg INH NOW ONE Stop: 01/27/22 23:54 Last Admin: 01/28/22 00:03 Dose: 10 mg Documented By: TV Albuterol (Albuterol 2.5 Mg/3 Ml Neb (Adult)) 20 mg INH NOW ONE Stop: 01/28/22 00:02 Albuterol (Albuterol 2.5 Mg/3 Ml Neb (Adult)) 2.5 mg INH [id number] PRN PRN Reason: Shortness Of Breath Albuterol/Ipratropium (Albuterol/Ipratropium 3 Ml Ampul) 3 ml INH [id number] ROBERT Sodium Chloride (Normal Saline 0.9%) 1,000 mls @ 1,000 mls/hr IV BOLUS ONE Stop: 01/28/22 02:57 Last Admin: 01/28/22 03:52 Dose: 1,000 mls/hr Documented By: SANFORD Levofloxacin (Levaquin) 750 mg in 150 mls @ 100 mls/hr IV NOW ONE Stop: 01/28/22 03:27 Last Admin: 01/28/22 03:52 Dose: 100 mls/hr Documented By: SANFORD Ketorolac Tromethamine (Ketorolac 30 Mg/Ml Vial) 15 mg IV NOW ONE Stop: 01/28/22 02:15 Last Admin: 01/28/22 03:53 Dose: 15 mg Documented By: SANFORD Methylprednisolone (Methylprednisolone 125 Mg/2 Ml Vial) 125 mg IV NOW ONE Stop: 01/28/22 00:02 Last Admin: 01/28/22 01:40 Dose: 125 mg Documented By: MARK Reevaluation(s) Reevaluation #1: Patient's tachycardia is persistent but slightly improved to the 115 range. Patient's breathing does appear improved after 10 mg albuterol. Patient and I reviewed his findings today asked for something for his headache he had Tylenol which was not very helpful he does tolerate ibuprofen. Consultations Consultation #1: Dr. Blunt, hospitalist accepts for observation. For COPD flare with recent viral infection and overlying bacterial infection, for steroids, breathing t reatments, fluids and close monitoring patient does have some mucus plugging on his CT angio but no pulmonary emboli. Vital Signs Vital signs: Vital Signs - 8 hr 01/27/22 23:48 01/28/22 00:06 Temperature 98.3 F Pulse Rate 120 H Respiratory Rate 24 Blood Pressure 154/71 H Pulse Oximetry 97 94 Oxygen Delivery Method Room Air Nasal Cannula Oxygen Flow Rate 4 MDM - SOB/Dyspnea Lab Data Result diagrams: 01/27/22 23:45 01/27/22 23:45 Labs: Lab Results 01/27/22 01/27/22 01/27/22 Range/Units 23:45 23:45 23:45 WBC 31.8 H* (4.5-11.0) X10^3/uL RBC 4.36 L (4.5-5.9) X10^6/uL Hgb 12.1 L (13.5-17.5) g/dL Hct 37.8 L (41-53) % MCV 86.7 (80-100) fL MCH 27.7 (26-34) PG MCHC 32.0 (30-36) % RDW 14.8 (11.6-14.8) % Plt Count 317 (150-400) X10^3/uL Neut % (Auto) Not Reportable Lymph % (Auto) Not Reportable Hopkins % (Auto) Not Reportable Eos % (Auto) Not Reportable Baso % (Auto) Not Reportable Lymph # (Auto) Not Reportable Hopkins # (Auto) Not Reportable Baso # (Auto) Not Reportable Total Counted 100 Seg Neutrophils % 92.0 H (38-70) % Band Neutrophils % 4.0 (3-7) % Lymphocytes % (Manual) 3.0 L (25-45) % Monocytes % (Manual) 1.0 L (2-11) % Neutrophils # (Manual) 80104 H (0752-6651) /uL RBC Morphology See below Anisocytosis 1+ H PT (10.1-12.7) SECONDS INR (0.9-1.3) APTT (26.4-36.2) SECONDS Sodium 141 (137-145) mmol/L Potassium 4.7 (3.4-5.1) mmol/L Chloride 101 (98-107) mmol/L Carbon Dioxide 33 H (22-32) mmol/L BUN 26 H (9-20) mg/dL Creatinine 0.91 (0.66-1.25) mg/dL Estimated GFR > 60 (>60) mL/min BUN/Creatinine Ratio 28.6 H (6-22) Glucose 151 H (80-110) mg/dL Lactate 1.8 (0.7-2.1) mmol/L Calcium 9.5 (8.4-10.2) mg/dL Total Bilirubin 0.5 (0.2-1.3) mg/dL AST 25 (17-59) IU/L ALT 24 (<50) IU/L Alkaline Phosphatase 71 (38-126) U/L Total Creatine Kinase (55-170) U/L CK-MB (CK-2) CK-MB (CK-2) Rel Index Troponin I (0.01-0.034) ng/mL NT-Pro-B Natriuret Pep (<125) pg/mL Total Protein 7.4 (6.3-8.2) g/dL Albumin 3.9 (3.5-5.0) g/dL Globulin 3.5 (1.7-4.1) g/dL Albumin/Globulin Ratio 1.1 (1.0-2.8) Lipase (23-300) U/L Procalcitonin (<0.5) ng/mL SARS-CoV-2 (PCR) (Negative) 01/27/22 01/27/22 01/27/22 Range/Units 23:45 23:45 23:45 WBC (4.5-11.0) X10^3/uL RBC (4.5-5.9) X10^6/uL Hgb (13.5-17.5) g/dL Hct (41-53) % MCV (80-100) fL MCH (26-34) PG MCHC (30-36) % RDW (11.6-14.8) % Plt Count (150-400) X10^3/uL Neut % (Auto) Lymph % (Auto) Hopkins % (Auto) Eos % (Auto) Baso % (Auto) Lymph # (Auto) Hopkins # (Auto) Baso # (Auto) Total Counted Seg Neutrophils % (38-70) % Band Neutrophils % (3-7) % Lymphocytes % (Manual) (25-45) % Monocytes % (Manual) (2-11) % Neutrophils # (Manual) (4058-7766) /uL RBC Morphology Anisocytosis PT 11.5 (10.1-12.7) SECONDS INR 1.0 (0.9-1.3) APTT 33 (26.4-36.2) SECONDS Sodium Cancelled (137-145) mmol/L Potassium Cancelled (3.4-5.1) mmol/L Chloride Cancelled (98-107) mmol/L Carbon Dioxide Cancelled (22-32) mmol/L BUN Cancelled (9-20) mg/dL Creatinine Cancelled (0.66-1.25) mg/dL Estimated GFR Cancelled (>60) mL/min BUN/Creatinine Ratio Cancelled (6-22) Glucose Cancelled (80-110) mg/dL Lactate (0.7-2.1) mmol/L Calcium Cancelled (8.4-10.2) mg/dL Total Bilirubin Cancelled (0.2-1.3) mg/dL AST Cancelled (17-59) IU/L ALT Cancelled (<50) IU/L Alkaline Phosphatase Cancelled (38-126) U/L Total Creatine Kinase 38 L (55-170) U/L CK-MB (CK-2) TNP CK-MB (CK-2) Rel Index TNP Troponin I < 0.012 (0.01-0.034) ng/mL NT-Pro-B Natriuret Pep 255 H (<125) pg/mL Total Protein Cancelled (6.3-8.2) g/dL Albumin Cancelled (3.5-5.0) g/dL Globulin Cancelled (1.7-4.1) g/dL Albumin/Globulin Ratio Cancelled (1.0-2.8) Lipase 106 (23-300) U/L Procalcitonin 0.15 (<0.5) ng/mL SARS-CoV-2 (PCR) (Negative) 01/27/22 Range/Units 23:56 WBC (4.5-11.0) X10^3/uL RBC (4.5-5.9) X10^6/uL Hgb (13.5-17.5) g/dL Hct (41-53) % MCV (80-100) fL MCH (26-34) PG MCHC (30-36) % RDW (11.6-14.8) % Plt Count (150-400) X10^3/uL Neut % (Auto) Lymph % (Auto) Hopkins % (Auto) Eos % (Auto) Baso % (Auto) Lymph # (Auto) Hopkins # (Auto) Baso # (Auto) Total Counted Seg Neutrophils % (38-70) % Band Neutrophils % (3-7) % Lymphocytes % (Manual) (25-45) % Monocytes % (Manual) (2-11) % Neutrophils # (Manual) (1544-3527) /uL RBC Morphology Anisocytosis PT (10.1-12.7) SECONDS INR (0.9-1.3) APTT (26.4-36.2) SECONDS Sodium (137-145) mmol/L Potassium (3.4-5.1) mmol/L Chloride (98-107) mmol/L Carbon Dioxide (22-32) mmol/L BUN (9-20) mg/dL Creatinine (0.66-1.25) mg/dL Estimated GFR (>60) mL/min BUN/Creatinine Ratio (6-22) Glucose (80-110) mg/dL Lactate (0.7-2.1) mmol/L Calcium (8.4-10.2) mg/dL Total Bilirubin (0.2-1.3) mg/dL AST (17-59) IU/L ALT (<50) IU/L Alkaline Phosphatase (38-126) U/L Total Creatine Kinase (55-170) U/L CK-MB (CK-2) CK-MB (CK-2) Rel Index Troponin I (0.01-0.034) ng/mL NT-Pro-B Natriuret Pep (<125) pg/mL Total Protein (6.3-8.2) g/dL Albumin (3.5-5.0) g/dL Globulin (1.7-4.1) g/dL Albumin/Globulin Ratio (1.0-2.8) Lipase (23-300) U/L Procalcitonin (<0.5) ng/mL SARS-CoV-2 (PCR) Negative (Negative) Imaging Data Chest x-ray: Radiologist's Impression: Close Chest X-Ray (Signed) Pernell Adams - 01/28/22 Launch?[address] [address] XRay Report Signed Patient: Mak Rose MR#: [id number] : 1960 Acct:[id number] Age/Sex: 61 / M Date of Service: 01/28/22 Loc: ED Accession Number: [id number] ?? Procedure: XR chest 1V Ordering Provider: Vaishnavi Hinson D.O. PROCEDURE:? XR CHEST 1V ? INDICATIONS:? sob ? TECHNIQUE:? One view of the chest was acquired.? ? COMPARISON:? [facility], CR, XR CHEST 1V, 11/10/2021, 18:49.? [facility], CR, XR CHEST 1V, 09/27/2021, 5:03.? [facility], CR, XR CHEST 1V, 05/26/2021, 14:49.? [facility], CR, XR CHEST 1V, 01/26/2022, 8:04. ? FINDINGS:? ? Surgical changes and devices:? None.? ? Lungs and pleura:? There is hyperinflation of the lungs with flattening of the hemidiaphragms compatible with COPD.? There are a few patchy bilateral indistinct opacities.? No pleural effusions or pneumothorax.? ? Mediastinum:? Mediastinal contours appear normal.? Heart size is normal.? ? Bones and chest wall:? No suspicious bony lesions.? Overlying soft tissues appear unremarkable.? ? IMPRESSION:? ? 1. Findings consistent with COPD redemonstrated. ? 2. Bilateral patchy indistinct opacities are nonspecific but may reflect atypical pneumonia.? ? ? Dictated by: Pernell Adams M.D. on 01/28/2022 at 0:48 ? ? Approved by: Pernell Adams M.D. on 01/28/2022 at 0:50?? CT scan - chest: Radiologist's Impression: Close Chest CTA (Signed) Pernell Adams - 01/28/22 Chest X-Ray (Signed) Pernell Adams - 01/28/22 Launch?[address] [address] [address] Scan Report Signed Patient: Mak Rose MR#: [id number] : 1960 Acct:[id number] Age/Sex: 61 / M Date of Service: 01/28/22 Loc: ED Accession Number: [id number] ?? Procedure: CT angio chest PE protocol Ordering Provider: Vaishnavi Hinson D.O. PROCEDURE:? CT ANGIO CHEST PE PROTOCOL ? INDICATIONS:? COPD hx, sob, +covid (not 19) ? TECHNIQUE:? After the administration of intravenous contrast, 2 mm thick sections acquired from the pulmonary apices to the posterior costophrenic angles.? 3-dimensional maximum i ntensity projection (MIP) coronal and sagittal reformats were then acquired through the thorax.? For radiation dose reduction, the following was used:? automated exposure control, adjustment of mA and/or kV according to patient size.? ? COMPARISON:? [facility], CT, CT ANGIO CHEST PE PROTOCOL, 02/02/2019, 13:28. ? FINDINGS:? Image quality:? Excellent.? ? Pulmonary arteries:? Pulmonary arteries are normal in size, and demonstrate no intraluminal filling defects to suggest central pulmonary embolism.? ? Lower Neck: No lymphadenopathy by size criteria. Thyroid:? Visualized thyroid demonstrates no discrete nodules. Axillae: No lymphadenopathy by size criteria. Chest Wall:? Unremarkable.? Bones: Visualized osseous structures demonstrate no suspicious lesions. ? Lungs and Airways:? There are severe centrilobular emphysematous changes.? Bilateral patchy irregular indistinct areas of consolidation are demonstrated including a confluent region anteriorly in the left upper lobe.? There are scattered foci of mucous plugging with mild bronchial wall thickening demonstrating a basilar predominance.? The trachea and central airways are patent. Pleura: No pneumothorax or pleural effusions.? ? Heart: Heart size is normal.? There is a minimal pericardial effusion. Thoracic Vessels: The aorta and pulmonary arteries are normal in size.? Mediastinum and Cristel: No lymphadenopathy by size criteria. Esophagus: No wall thickening. No hiatal hernia. Abdomen:? Visualized upper abdominal solid organs appear normal in the early arterial phase of enhancement.? ? IMPRESSION:? ? 1. No evidence of pulmonary embolism. ? 2. Bilateral scattered small irregular areas of consolidation with mucous plugging and bronchial wall thickening most likely represent sequelae of an atypical infection.? Recommend follow-up in 3-6 months to demonstrate resolution and exclude an underlying neoplastic process. ? 3. Severe centrilobular emphysematous changes.? ? ? Dictated by: Pernell Adams M.D. on 01/28/2022 at 1:37 ? ? Approved by: Pernell Adams M.D. on 01/28/2022 at 1:43?? ECG Data Attestation: I personally reviewed and interpreted this ECG as follows: Interpretation: Sinus tachycardia rate of 125 SD 128 QRS of 94 and QTC of [address] elevation or depression. MDM Narrative Medical decision making narrative: This is a 61-year-old male with known COPD normally on 2 L nasal cannula with worsening COPD symptoms despite being on prednisone and having IV Solu-Medrol yesterday was found to have a coronavirus but not COVID-19 yesterday on respiratory panel. Troponin is negative, BNP is not elevated procalcitonin is negative but he does have possible patchy Sheba pneumonia on chest x-ray had persistent tachycardia in the department and describes having persistent tachycardia with even the slightest amount of exertion CT PE was ordered is negative for pulmonary emboli but does show some mucus plugging and patchy con solidation consistent with atypical pneumonia. Patient's white count is 31 today was in the 20s yesterday typically has been as high as 12 but not into the 20s or 30s. Has been afebrile but with his tachycardia meets SIRS criteria/sepsis for pneumonia. Patient was given fluids, 30 cc/kilos bolus was not received secondary to tachycardia from his COPD exacerbation followed by 10 mg of albuterol IV. Patient did receive IV antibiotics, cultures were obtained and sputum culture ordered. Spoke with hospitalist who accepts for observation. Patient was complaining of headache so took his own Tylenol at home and given a dose of IV Toradol. Discharge Plan Departure Patient Disposition: Admitted as Observation Clinical Impression: Pneumonia, Acute exacerbation of chronic obstructive pulmonary disease Clinical Impression: (Ruled Out): Bronchitis Admit Date/Time: 01/28/22 02:09 Admit Provider: Humphrey Blunt
[2022-01-28 00:08] LABS: Lactate (Lactic Acid) 1.8 mmol/L (0.7-2.1)
[2022-01-28 00:09] LABS: Alanine Aminotransferase 24 IU/L (<50); Albumin 3.9 g/dL (3.5-5.0); Albumin Globulin Ratio 1.1 (1.0-2.8); Alkaline Phosphatase 71 U/L (38-126); Aspartate Aminotransferase 25 IU/L (17-59); BUN Creatinine Ratio 28.6 (6-22); Bilirubin Total 0.5 mg/dL (0.2-1.3); Blood Urea Nitrogen 26 mg/dL (9-20); Calcium 9.5 mg/dL (8.4-10.2); Carbon Dioxide 33 mmol/L (22-32); Chloride 101 mmol/L (98-107); Estimated Glomerular Filt Rate > 60 mL/min (>60); Globulin 3.5 g/dL (1.7-4.1); Glucose 151 mg/dL (80-110); HEMOLYSIS < 15 (0-50); Potassium 4.7 mmol/L (3.4-5.1); Sodium 141 mmol/L (137-145); Total Protein 7.4 g/dL (6.3-8.2)
[2022-01-28 00:14] LABS: Hematocrit 37.8 % (41-53); Hemoglobin 12.1 g/dL (13.5-17.5); Mean Corpuscular Hemoglobin 27.7 PG (26-34); Mean Corpuscular Volume 86.7 fL (80-100); Platelet Count 317 X10^3/uL (150-400); Red Blood Cell Count 4.36 X10^6/uL (4.5-5.9); Red Cell Distribution Width 14.8 % (11.6-14.8)
[2022-01-28 00:16] LABS: Add Manual Diff / Slide Review YES; Prothrombin Time 11.5 SECONDS (10.1-12.7); White Blood Cell Count 31.8 X10^3/uL (4.5-11.0)
[2022-01-28 00:19] LABS: PTT Partial Thromboplastin Tim 33 SECONDS (26.4-36.2)
[2022-01-28 00:32] LABS: Creatine Kinase 38 U/L (55-170); Lipase 106 U/L (23-300)
[2022-01-28 00:32] LABS: COVID19 -Nasal RAPID Negative (Negative)
[2022-01-28 00:45] LABS: Troponin I < 0.012 ng/mL (0.01-0.034)
--- NOTE | 2022-01-28 00:47 | DI.CT.S_ITS ---
PROCEDURE: CT ANGIO CHEST PE PROTOCOL INDICATIONS: COPD hx, sob, +covid (not 19) TECHNIQUE: After the administration of intravenous contrast, 2 mm thick sections acquired from the pulmonary apices to the posterior costophrenic angles. 3-dimensional maximum intensity projection (MIP) coronal and sagittal reformats were then acquired through the thorax. For radiation dose reduction, the following was used: automated exposure control, adjustment of mA and/or kV according to patient size. COMPARISON: [facility], CT, CT ANGIO CHEST PE PROTOCOL, 02/02/2019, 13:28. FINDINGS: Image quality: Excellent. Pulmonary arteries: Pulmonary arteries are normal in size, and demonstrate no intraluminal filling defects to suggest central pulmonary embolism. Lower Neck: No lymphadenopathy by size criteria. Thyroid: Visualized thyroid demonstrates no discrete nodules. Axillae: No lymphadenopathy by size criteria. Chest Wall: Unremarkable. Bones: Visualized osseous structures demonstrate no suspicious lesions. Lungs and Airways: There are severe centrilobular emphysematous changes. Bilateral patchy irregular indistinct areas of consolidation are demonstrated including a confluent region anteriorly in the left upper lobe. There are scattered foci of mucous plugging with mild bronchial wall thickening demonstrating a basilar predominance. The trachea and central airways are patent. Pleura: No pneumothorax or pleural effusions. Heart: Heart size is normal. There is a minimal pericardial effusion. Thoracic Vessels: The aorta and pulmonary arteries are normal in size. Mediastinum and Cristel: No lymphadenopathy by size criteria. Esophagus: No wall thickening. No hiatal hernia. Abdomen: Visualized upper abdominal solid organs appear normal in the early arterial phase of enhancement. IMPRESSION: 1. No evidence of pulmonary embolism. 2. Bilateral scattered small irregular areas of consolidation with mucous plugging and bronchial wall thickening most likely represent sequelae of an atypical infection. Recommend follow-up in 3-6 months to demonstrate resolution and exclude an underlying neoplastic process. 3. Severe centrilobular emphysematous changes. Dictated by: Pernell Adams M.D. on 01/28/2022 at 1:37 Approved by: Pernell Adams M.D. on 01/28/2022 at 1:43
[2022-01-28 00:50] LABS: Procalcitonin 0.15 ng/mL (<0.5)
[2022-01-28 01:05] LABS: NT-proBNP (BNP-Adult 18+) 255 pg/mL (<125)
[2022-01-28] MEDS: methylPREDNISolone 125 MG/2 ML VIAL IV (01:40)
[2022-01-28] MEDS: levoFLOXacin 750 MG/150 ML PIGGYBACK 100 MG IV (03:52)
[2022-01-28] MEDS: SODIUM CHLORIDE 0.9% 1,000 ML 1000 ML IV (03:52)
[2022-01-28] MEDS: KETOROLAC 30 MG/ML VIAL 15 MG IV (03:53)
--- NOTE | 2022-01-28 05:31 | PM.HP.1 ---
History of Present Illness History of Present Illness Date Patient Seen: 01/28/22 Time Patient Seen: 05:00 Chief complaint: SOB/ infection Narrative: Mr. Rose is a 61M with PMH COPD on 2-4L O2 at home, steroid dependent who presents with cough and shortness of breath. He continues to smoke a few cigarettes daily. He acknowledges his quality of life is declining. He has been on steroids for approximately a year on prolonged tapers, and most recently tapered down to 10mg daily of prednisone. Four days ago he developed worsening shortness of breath, he developed a productive cough with thick whitish yellow sputum. No fevers/chills, no chest pain, but does have chest tightness. No lower extremity swelling. He was seen in the ED a few days ago and was able to be discharged home with recommendation to take additional steroids. However his shortness of breath worsened and he presented back to the ED. In the ED, workup was done, he was noted to be tachycardic and tachypenic sats in the 90s on 4L. Labs notable for wBC 31.1, hgb 12.1, plts 317, creatinine 0.91. Lactate 1.8. Procal 0.15. COVID negative. Chest xray showed bilateral patchy indistinct opacities consistent with possible atypical pneumonia and hyperinflation of the lungs. On recent visit to the ED he was positive for non-COVID coronavirus. He was ordered for steroids and nebs and admitted for further treatment. Patient History Medical History Anxiety (~2015) Asthma (Unknown) COPD (chronic obstructive pulmonary disease) (~2013) GERD with stricture Hematuria (~2014) HTN (hypertension) Hyperlipidemia (~2015) Insomnia (~2015) Palpitations TIA (transient ischemic attack) (05/2014) Surgical History No pertinent past surgical history Family & Social History Family History Mother Age: 83 Hypertension Sister Age: 66 Cancer Social History: household members none Prior Living Arrangements House Safety & Behavioral: Feels Safe in Current Yes Environment Been Physically Hurt or No Threatened By a Person Tobacco & Substance use: Tobacco type cigarettes Smoking Status Current some day smoker alcohol intake former alcohol intake frequency 0-2 drinks per day Substance Use Type marijuana Meds Home Medications and Allergies Home Medications Medication Instructions Recorded Confirmed Type ondansetron 4 mg disintegrating 4 mg PO BID-TID PRN Nausea 12/03/18 01/28/22 History tablet acetaminophen 325 mg tablet 1 dose PO PRN PRN pain 12/29/18 01/28/22 History ibuprofen 200 mg tablet 1 dose PO PRN PRN pain 12/29/18 01/28/22 History magnesium hydroxide 400 mg/5 mL 1 dose PO PRN PRN Indigestion 12/29/18 01/28/22 History oral suspension albuterol sulfate 90 mcg/actuation See Rx Instructions .Route 05/04/19 01/28/22 Rx aerosol inhaler (Ventolin HFA) .COMPLEX #18 grams Disabled Parking Permit #1 ea 06/24/19 01/28/22 Rx aspirin 81 mg tablet 81 mg PO DAILY 12/30/20 01/28/22 History sumatriptan succinate 50 mg tablet 50 mg PO DAILY 12/30/20 01/28/22 History nitroglycerin 0.3 mg sublingual 0.3 mg sublingual Q5-15M PRN chest 01/23/21 01/28/22 Rx tablet pain #20 tabs prednisone 20 mg tablet 40 mg PO DAILY COPD 05/13/21 01/28/22 History nystatin 100,000 unit/mL oral 5 ml PO QID #200 mL 05/27/21 01/28/22 Rx suspension mometasone-formoterol HFA 200 See Rx Instructions .Route 07/24/21 01/28/22 Rx mcg-5 mcg/actuation aerosol .COMPLEX #13 grams inhaler (Dulera) montelukast 10 mg tablet 10 mg PO QPM #90 tabs 08/12/21 01/28/22 Rx tiotropium bromide 18 mcg capsule 18 mcg inhalation DAILY #90 08/12/21 01/28/22 Rx with inhalation device (Spiriva inhalations with HandiHaler) benzonatate 100 mg capsule 100 mg PO BID-TID #270 caps 11/28/21 01/28/22 Rx ipratropium 0.5 mg-albuterol 3 mg 3 ml inhalation BID PRN wheezing/ 01/24/22 01/28/22 Rx (2.5 mg base)/3 mL nebulization SOB #90 mL soln levalbuterol HCl 1.25 mg/3 mL 1.25 mg (3 mL) inhalation Q6HR PRN 01/24/22 01/28/22 Rx solution for nebulization Wheezing #75 mL ipratropium 0.5 mg-albuterol 3 mg 3 ml inhalation Q4-6H PRN 01/26/22 01/28/22 Rx (2.5 mg base)/3 mL nebulization shortness of breath or wheezing soln #90 mL clonazepam 0.5 mg tablet 0.5 mg PO BID PRN Anxiety 01/28/22 01/28/22 History lisinopril 10 mg tablet 10 mg PO DAILY 01/28/22 01/28/22 History simvastatin 20 mg tablet 20 mg PO DAILY 01/28/22 01/28/22 History Allergies Allergy/AdvReac Type Severity Reaction Status Date / Time cinnamon [CINNAMON] Allergy Severe RESP Verified 12/15/21 09:16 PROBLEMS AND SWELLING Sulfa (Sulfonamide Allergy Severe anaphylacti Verified 12/15/21 09:16 Antibiotics) c [SULFA (SULFONAMIDE ANTIBIOTICS)] fluticasone [FLUTICASONE] Allergy Intermediate FEELS Verified 12/15/21 09:16 LIKE FIRE IN THE LUNGS trimethoprim [TRIMETHOPRIM] Allergy Unknown Patient Verified 12/15/21 09:16 can't remember beclomethasone [From QVAR] AdvReac Severe tachycardia Verified 12/15/21 09:16 budesonide [From SYMBICORT] AdvReac Severe tachycardia Verified 12/15/21 09:16 formoterol [From SYMBICORT] AdvReac Severe tachycardia Verified 12/15/21 09:16 codeine [CODEINE] AdvReac Intermediate violent Verified 12/15/21 09:16 doxycycline [DOXYCYCLINE] AdvReac Mild N/V Verified 12/15/21 09:16 Review of Systems Review of Systems Narrative: 14 systems reviewed and negative aside from what is noted in HPI Exam Vital Signs (past 8 hours): - 01/27/22 23:48 01/28/22 00:06 01/28/22 02:30 Temperature 98.3 F Pulse Rate 120 H 99 H Respiratory Rate 24 Blood Pressure 154/71 H 115/61 Pulse Oximetry 97 94 Oxygen Delivery Method Room Air Nasal Cannula Oxygen Flow Rate 4 01/28/22 03:17 Temperature 97.3 F L Pulse Rate 103 H Respiratory Rate 20 Blood Pressure 140/81 Pulse Oximetry 94 Oxygen Delivery Method Oxygen Flow Rate 4 Oxygen Delivery Method Nasal Cannula Oxygen Flow Rate 4 Narrative Exam Narrative: GEN: moderate respiratory distress HEENT: PERRL, moist mucous membranes NECK: trachea midline, no JVD PULM: very poor air movement bilaterally CV: tachycardic, no murmurs ABD: soft, nontender, nondistended, no organomegaly EXT: warm and well perfused with no edema NEURO: awake, alert, oriented, no focal deficits Objective Labs Result Diagrams: 01/27/22 23:45 01/27/22 23:45 Labs: Laboratory Results - last 24 hr 01/27/22 01/27/22 01/27/22 23:45 23:45 23:45 WBC 31.8 H* RBC 4.36 L Hgb 12.1 L Hct 37.8 L MCV 86.7 MCH 27.7 MCHC 32.0 RDW 14.8 Plt Count 317 Neut % (Auto) Not Reportable Lymph % (Auto) Not Reportable [place] % (Auto) Not Reportable Eos % (Auto) Not Reportable Baso % (Auto) Not Reportable Lymph # (Auto) Not Reportable [place] # (Auto) Not Reportable Baso # (Auto) Not Reportable PT INR APTT Sodium 141 Potassium 4.7 Chloride 101 Carbon Dioxide 33 H BUN 26 H Creatinine 0.91 Estimated GFR > 60 BUN/Creatinine Ratio 28.6 H Glucose 151 H Lactate 1.8 Calcium 9.5 Total Bilirubin 0.5 AST 25 ALT 24 Alkaline Phosphatase 71 Total Creatine Kinase CK-MB (CK-2) CK-MB (CK-2) Rel Index Troponin I NT-Pro-B Natriuret Pep Total Protein 7.4 Albumin 3.9 Globulin 3.5 Albumin/Globulin Ratio 1.1 Lipase Procalcitonin SARS-CoV-2 (PCR) 01/27/22 01/27/22 01/27/22 23:45 23:45 23:45 WBC RBC Hgb Hct MCV MCH MCHC RDW Plt Count Neut % (Auto) Lymph % (Auto) [place] % (Auto) Eos % (Auto) Baso % (Auto) Lymph # (Auto) [place] # (Auto) Baso # (Auto) PT 11.5 INR 1.0 APTT 33 Sodium Cancelled Potassium Cancelled Chloride Cancelled Carbon Dioxide Cancelled BUN Cancelled Creatinine Cancelled Estimated GFR Cancelled BUN/Creatinine Ratio Cancelled Glucose Cancelled Lactate Calcium Cancelled Total Bilirubin Cancelled AST Cancelled ALT Cancelled Alkaline Phosphatase Cancelled Total Creatine Kinase 38 L CK-MB (CK-2) TNP CK-MB (CK-2) Rel Index TNP Troponin I < 0.012 NT-Pro-B Natriuret Pep 255 H Total Protein Cancelled Albumin Cancelled Globulin Cancelled Albumin/Globulin Ratio Cancelled Lipase 106 Procalcitonin 0.15 SARS-CoV-2 (PCR) 01/27/22 23:56 WBC RBC Hgb Hct MCV MCH MCHC RDW Plt Count Neut % (Auto) Lymph % (Auto) [place] % (Auto) Eos % (Auto) Baso % (Auto) Lymph # (Auto) [place] # (Auto) Baso # (Auto) PT INR APTT Sodium Potassium Chloride Carbon Dioxide BUN Creatinine Estimated GFR BUN/Creatinine Ratio Glucose Lactate Calcium Total Bilirubin AST ALT Alkaline Phosphatase Total Creatine Kinase CK-MB (CK-2) CK-MB (CK-2) Rel Index Troponin I NT-Pro-B Natriuret Pep Total Protein Albumin Globulin Albumin/Globulin Ratio Lipase Procalcitonin SARS-CoV-2 (PCR) Negative Assessment & Plan Assessment & Plan narrative: Mr. Rose is a 61M smoker, COPD on home oxygen who presents with productive cough and shortness of breath. 1. Acute on chronic hypoxemic respiratory failure secondary to acute COPD exacerbation -continues to actively smoke -exacerbation likely worsened from non-COVID coronavirus infection -continue oxygen for goal >88% -ordered nebs, steroid, and azithromycin -continue montelukast 2. Leukocytosis -suspect secondary to steroids -procalcitonin not elevated -monitor closely, but no indication for broad spectrum antibiotics currently 3. Hypertension -hold lisinopril for now 4. Hyperlipidemia -continue statin CODE: DNR/DN Proxy: Antonina Hager, sister I have utilized all available resources to reconcile the patient's home medications Time Spent With Patient Critical Care time: I spent a total of [] minutes of critical care time on this patient's care today; this time is exclusive of procedural time. Quality MIPS - Admit I confirm the patient?s Advance Care Plan is present, Code status is documented, Surrogate decision maker is in patient?s record [If Yes, STOP here]: Yes
[2022-01-28 05:59] LABS: Anisocytosis 1+; Neutrophils Absolute Manual 30528 /uL (3000-5900); Total Cells Counted 100
[2022-01-28] MEDS: AZITHROMYCIN 500 MG in DEXTROSE 5% IN WATER 250 ML 250 MG IV (06:17)
[2022-01-28 07:27] LABS: Add Manual Diff / Slide Review NO; Basophils Absolute Auto 100 /uL (0-100); Basophils Percent Auto 0.3 % (0-2); Eosinophils Absolute Auto 0 /uL (0-450); Hematocrit 35.2 % (41-53); Hemoglobin 11.4 g/dL (13.5-17.5); Lymphocytes Absolute Auto 500 /uL (1100-4500); Lymphocytes Percent Auto 2.2 % (25-40); Mean Corpuscular HGB Conc 32.3 % (30-36); Mean Corpuscular Volume 86.7 fL (80-100); Monocytes Absolute Auto 200 /uL (0-900); Neutrophils Absolute Auto 21800 /uL (1500-7000); Neutrophils Percent Auto 96.5 % (50-75); Platelet Count 263 X10^3/uL (150-400); Red Blood Cell Count 4.06 X10^6/uL (4.5-5.9); Red Cell Distribution Width 14.6 % (11.6-14.8); White Blood Cell Count 22.5 X10^3/uL (4.5-11.0)
[2022-01-28 07:49] LABS: BUN Creatinine Ratio 29.3 (6-22); Blood Urea Nitrogen 27 mg/dL (9-20); Calcium 9.2 mg/dL (8.4-10.2); Carbon Dioxide 35 mmol/L (22-32); Chloride 99 mmol/L (98-107); Estimated Glomerular Filt Rate > 60 mL/min (>60); Glucose 174 mg/dL (80-110); HEMOLYSIS < 15 (0-50); Potassium 4.8 mmol/L (3.4-5.1); Sodium 139 mmol/L (137-145)
[2022-01-28] MEDS: ALBUTEROL/IPRATROPIUM 3 ML AMPUL INH ×4 (08:02→18:43)
[2022-01-28] MEDS: ASPIRIN EC 81 MG TABLET PO (10:09)
[2022-01-28] MEDS: methylPREDNISolone 125 MG/2 ML VIAL 60 MG IV ×2 (10:10→21:00)
[2022-01-28] MEDS: ENOXAPARIN 40 MG/0.4 ML SYRINGE SUBCUT (10:10)
[2022-01-28] MEDS: lisinopriL 10 MG TABLET PO (13:05)
[2022-01-28] MEDS: clonazePAM 0.5 MG TABLET PO (13:05)
--- NOTE | 2022-01-28 16:02 | PM.EVENT ---
Event Note Event Note (Rapid Response, Code, or fall): Patient examined this morning, breathing status seems to be improving. Feels hungry. Medication reconciliation done. Still has significant distress and bilateral wheeze and coarse breath sounds. If the patient continues to improve potential discharge tomorrow. Continue hospitalization and ongoing care. Refer to H&P for further details. I called his sister to give an update, went to voicemail, left a VM.
--- NOTE | 2022-01-28 16:08 | CM.DANOTE ---
Patient is a 61 yo male who was admitted on 01/28/22 for SOB. Pt has [facility] and [facility] for insurance and his PCP is Dr. Saqib Oliva. EMR was reviewed. Per MD, pt with hx of COPD and home oxygen and still smokes. Pt admitted for Resp Failure 2nd to COPD exacerbation and DNR/DNI. Patient has history of diverticulitis, a well as end stage COPD. He is on home oxygen with [employer]. Met with patient in his room. He is alert and oriented, was laying in bed.He stated that he no longer drives, and has a caregiver named Thais through [employer] that comes in twice a week. She assists with showers, meal preps, cleaning. Patient does have a wheel-chair that he had gotten with [employer], and a cane and walker. Pt getting steroids and nebs and was appreciative that MD attempted to call and update his sister Antonina who is his DPOA. Pt currently does not anticipate any needs at d/c and went home in Jul 2020 at his last admission. Plan: SW to follow closely for likely d/c home tomorrow if medically stable and any further identified needs. GILDA Gutierrez Discharge Planning/Care Management Advanced directive, confirm from FAMILY Start: 01/28/22 03:07 Freq: Q24H Status: Active Protocol: Document 01/28/22 04:43 CN (Rec: 01/28/22 04:44 CN [id number]) Advance Directive, confirm on record Time 04:43 Person contacted patient Copy received No
[2022-01-28] MEDS: MONTELUKAST 10 MG TABLET PO (18:16)
[2022-01-28] MEDS: ACETAMINOPHEN 325 MG TABLET 650 MG PO (21:01)
[2022-01-29] VITALS (10 sets, daily range): BP systolic 128–152; BP diastolic 63–79; PULSE 91–113; RESP 18–20; TEMP 36.2–36.6; O2SAT 94–97
[2022-01-29] MEDS: ALBUTEROL 2.5 MG/3 ML NEB (ADULT) INH (01:21)
[2022-01-29] MEDS: clonazePAM 0.5 MG TABLET PO ×2 (01:42→14:31)
[2022-01-29] MEDS: ACETAMINOPHEN 325 MG TABLET 650 MG PO ×3 (05:05→23:40)
[2022-01-29] MEDS: AZITHROMYCIN 500 MG in DEXTROSE 5% IN WATER 250 ML 250 MG IV (05:06)
[2022-01-29] MEDS: ALBUTEROL/IPRATROPIUM 3 ML AMPUL INH ×5 (07:15→22:55)
[2022-01-29 08:53] LABS: Add Manual Diff / Slide Review NO; Basophils Absolute Auto 0 /uL (0-100); Basophils Percent Auto 0.1 % (0-2); Eosinophils Absolute Auto 0 /uL (0-450); Hematocrit 35.6 % (41-53); Hemoglobin 11.4 g/dL (13.5-17.5); Lymphocytes Absolute Auto 800 /uL (1100-4500); Lymphocytes Percent Auto 4.2 % (25-40); Mean Corpuscular HGB Conc 32.1 % (30-36); Mean Corpuscular Hemoglobin 27.8 PG (26-34); Mean Corpuscular Volume 86.6 fL (80-100); Monocytes Absolute Auto 400 /uL (0-900); Monocytes Percent Auto 2.4 % (3-14); Neutrophils Absolute Auto 16800 /uL (1500-7000); Neutrophils Percent Auto 93.3 % (50-75); Platelet Count 284 X10^3/uL (150-400); Red Blood Cell Count 4.11 X10^6/uL (4.5-5.9); Red Cell Distribution Width 14.7 % (11.6-14.8)
[2022-01-29 09:05] LABS: Alanine Aminotransferase 30 IU/L (<50); Albumin 3.6 g/dL (3.5-5.0); Albumin Globulin Ratio 1.1 (1.0-2.8); Alkaline Phosphatase 75 U/L (38-126); Aspartate Aminotransferase 30 IU/L (17-59); BUN Creatinine Ratio 27.7 (6-22); Bilirubin Total 0.3 mg/dL (0.2-1.3); Blood Urea Nitrogen 26 mg/dL (9-20); Calcium 9.1 mg/dL (8.4-10.2); Carbon Dioxide 37 mmol/L (22-32); Chloride 99 mmol/L (98-107); Estimated Glomerular Filt Rate > 60 mL/min (>60); Globulin 3.2 g/dL (1.7-4.1); Glucose 129 mg/dL (80-110); HEMOLYSIS < 15 (0-50); Potassium 4.2 mmol/L (3.4-5.1); Sodium 139 mmol/L (137-145); Total Protein 6.8 g/dL (6.3-8.2)
[2022-01-29] MEDS: lisinopriL 10 MG TABLET PO (09:08)
[2022-01-29] MEDS: ASPIRIN EC 81 MG TABLET PO (09:10)
[2022-01-29] MEDS: ENOXAPARIN 40 MG/0.4 ML SYRINGE SUBCUT (09:10)
[2022-01-29] MEDS: methylPREDNISolone 125 MG/2 ML VIAL 60 MG IV ×2 (09:10→21:32)
[2022-01-29] MEDS: MONTELUKAST 10 MG TABLET PO (15:59)
--- NOTE | 2022-01-29 17:48 | PM.PN.1 ---
Subjective Subjective Interval history: Patient still continues to be hypoxic and also significant distress with requiring 3 L nasal cannula and getting anxious and short of breath with minimal ambulation. Denies any chest discomfort. No nausea no vomiting. Diet tolerated with walker. Exam Vital Signs (past 8 hours): - 01/29/22 11:46 01/29/22 14:57 Pulse Oximetry 95 Oxygen Delivery Method Nasal Cannula Nasal Cannula Oxygen Flow Rate 3 3 Fraction of Inspired Oxygen 36 Oxygen Delivery Method Nasal Cannula Oxygen Flow Rate 3 Narrative Exam Narrative: Patient does seem to be in mild distress and using accessory muscles when he is talking long sentences and ambulating. Bilateral breath sounds are decreased and coarse breath sounds with some wheezes. Constitutional, cardiovascular, respiratory, skin neuro, psych examination done positive findings noted as above. Objective Labs Result Diagrams: 01/29/22 08:30 01/29/22 08:30 [facility] Medical History Anxiety (~2015) Asthma (Unknown) COPD (chronic obstructive pulmonary disease) (~2013) GERD with stricture Hematuria (~2014) HTN (hypertension) Hyperlipidemia (~2015) Insomnia (~2015) Palpitations TIA (transient ischemic attack) (05/2014) Surgical History No pertinent past surgical history Family History Mother Age: 83 Hypertension Sister Age: 66 Cancer Social History household members: none Smoking Status: Current some day smoker Tobacco: How many years used: 47 quit status: considering quitting second hand exposure: No alcohol intake: former substance use type: does not use Assessment & Plan Assessment & Plan narrative: Acute hypoxic respiratory failure secondary to COPD exacerbation -treating with IV steroids, nebulizer therapy, encouraged deep breathing, incentive spirometry, slowly improving, most likely will be discharged in 2-3 days as clinically improves Chronic hypoxic respiratory failure on 2 L nasal cannula at home secondary to COPD Benign essential hypertension, well controlled Sinus tachycardia combination of hypoxia and anxiety DVT and GI prophylaxis reviewed, If clinically improves probably discharge on Thursday. Time Spent With Patient Critical Care time: I spent a total of [] minutes of critical care time on this patient's care today; this time is exclusive of procedural time.
[2022-01-29] MEDS: guaiFENesin Solution 100 MG/5 ML UDC PO (23:40)
[2022-01-29] MEDS: BENZONATATE 100 MG CAPSULE PO (23:40)
[2022-01-30] VITALS (9 sets, daily range): BP systolic 116–141; BP diastolic 67–97; PULSE 88–108; RESP 18–26; TEMP 35.7–36.6; O2SAT 95–98
[2022-01-30] MEDS: ALBUTEROL 2.5 MG/3 ML NEB (ADULT) INH (02:52)
[2022-01-30] MEDS: guaiFENesin Solution 100 MG/5 ML UDC PO ×3 (05:34→20:15)
[2022-01-30] MEDS: AZITHROMYCIN 500 MG in DEXTROSE 5% IN WATER 250 ML 250 MG IV (05:34)
[2022-01-30] MEDS: ALBUTEROL/IPRATROPIUM 3 ML AMPUL INH ×4 (07:30→19:30)
[2022-01-30] MEDS: methylPREDNISolone 125 MG/2 ML VIAL 60 MG IV (08:52)
[2022-01-30] MEDS: lisinopriL 10 MG TABLET PO (08:54)
[2022-01-30] MEDS: BENZONATATE 100 MG CAPSULE PO ×3 (08:55→20:15)
[2022-01-30] MEDS: ENOXAPARIN 40 MG/0.4 ML SYRINGE SUBCUT (08:55)
[2022-01-30] MEDS: ASPIRIN EC 81 MG TABLET PO (08:55)
[2022-01-30] MEDS: clonazePAM 0.5 MG TABLET PO ×2 (09:07→20:26)
--- NOTE | 2022-01-30 14:57 | DI.RAD.S_ITS ---
PROCEDURE: XR CHEST 2V INDICATIONS: Follow up on Infiltrates given poor clinical progress TECHNIQUE: 2 views of the chest were acquired. COMPARISON: None. FINDINGS: Surgical changes and devices: None. Lungs and pleura: Lungs are clear. No pleural effusions or pneumothorax. Mediastinum: Mediastinal contours are normal. Heart size is normal. Bones and chest wall: No suspicious bony abnormalities. Soft tissues appear unremarkable. IMPRESSION: No acute cardiopulmonary process demonstrated radiographically. Dictated by: Neymar Schmidt M.D. on 01/30/2022 at 15:46 Approved by: Neymar Schmidt M.D. on 01/30/2022 at 15:46
--- NOTE | 2022-01-30 14:58 | P.PN_ITS ---
Subjective Subjective Interval history: Patient having significant breathing difficulties and generalized weakness when he is trying to ambulate. Requiring help from nursing staff for minimal ambulation. I asked physical therapy to work with him to see if he is a good candidate for rehab. Patient continues to require 3-4 L nasal cannula based on his breathing status throughout the day. Patient states that his cough is improving. Overall breathing status is little better compared to yesterday. But he is not close to his baseline. We can still hear audible coarse breath sounds from distance but definitely better compared to yesterday. Patient tolerating diet better. Denies any headaches. No nausea. No fevers. I tried to call his sister again today to give an update but unable to reach her. Left a voicemail. Patient says that his family will be able to help him at home but unsure about the social support at this time. I asked social science instructor to look into his home situation to make sure that he is safe to be discharged. He is not medically ready to be discharged Exam Vital Signs (past 8 hours): - 01/30/22 07:31 01/30/22 08:54 01/30/22 09:45 Temperature 97.5 F L Pulse Rate 97 H 97 H 99 H Respiratory Rate 26 H 18 Blood Pressure 116/97 H 141/72 H Pulse Oximetry 97 95 Oxygen Delivery Method Nasal Cannula Oxygen Flow Rate 4 3.5 Fraction of Inspired Oxygen 36 01/30/22 10:58 Temperature Pulse Rate Respiratory Rate Blood Pressure Pulse Oximetry 95 Oxygen Delivery Method Nasal Cannula Oxygen Flow Rate 4 Fraction of Inspired Oxygen Fraction of Inspired Oxygen 36 Oxygen Delivery Method Nasal Cannula Oxygen Flow Rate 4 Narrative Exam Narrative: Patient does seem to be in distress and using accessory muscles when he is talking long sentences and ambulating. Bilateral breath sounds are decreased and coarse breath sounds with some wheezes. Patient is having difficulties in ambulating out of the bed to bedside commode. Requiring significant help with minimal ambulation. He also seems to be anxious today. Constitutional, cardiov ascular, respiratory, skin neuro, psych examination done positive findings noted as above. Objective Labs Result Diagrams: 01/29/22 08:30 01/29/22 08:30 [facility] Medical History Anxiety (~2015) Asthma (Unknown) COPD (chronic obstructive pulmonary disease) (~2013) GERD with stricture Hematuria (~2014) HTN (hypertension) Hyperlipidemia (~2015) Insomnia (~2015) Palpitations TIA (transient ischemic attack) (05/2014) Surgical History No pertinent past surgical history Family History Mother Age: 83 Hypertension Sister Age: 66 Cancer Social History household members: none Smoking Status: Current some day smoker Tobacco: How many years used: 47 quit status: considering quitting second hand exposure: No alcohol intake: former substance use type: does not use Assessment & Plan Assessment & Plan narrative: Acute hypoxic respiratory failure secondary to COPD exacerbation -transitioning to p.o. steroids today to see if he will tolerate, continue nebulizer therapy, encouraged deep breathing, incentive spirometry, slowly improving, most likely will be discharged in 2-3 days as clinically improves Acute physical deconditioning, unable to carry daily activities-physical therapy to evaluate, pending recommendation Chronic hypoxic respiratory failure on 2 L nasal cannula at home secondary to COPD Benign essential hypertension, well controlled Sinus tachycardia combination of hypoxia and anxiety DVT and GI prophylaxis reviewed, If clinically improves probably discharge on Thursday Given his physical deconditioning probably require rehab before he safely discharged home. Discussed with the case management pending recommendations.. Time Spent With Patient Critical Care time: I spent a total of [] minutes of critical care time on this patient's care today; this time is exclusive of procedural time.
[2022-01-30] MEDS: ACETAMINOPHEN 325 MG TABLET 650 MG PO (15:34)
[2022-01-30] MEDS: predniSONE 20 MG TABLET 60 MG PO (15:34)
[2022-01-30] MEDS: MONTELUKAST 10 MG TABLET PO (15:35)
[2022-01-31] VITALS (8 sets, daily range): BP systolic 134–144; BP diastolic 61–79; PULSE 73–96; RESP 20–26; TEMP 36.3–36.6; O2SAT 92–97
[2022-01-31] MEDS: ALBUTEROL/IPRATROPIUM 3 ML AMPUL INH ×4 (00:30→15:44)
[2022-01-31] MEDS: BENZONATATE 100 MG CAPSULE PO (01:03)
[2022-01-31] MEDS: guaiFENesin Solution 100 MG/5 ML UDC PO ×2 (01:03→09:57)
[2022-01-31] MEDS: ACETAMINOPHEN 325 MG TABLET 650 MG PO ×2 (01:08→14:51)
[2022-01-31] MEDS: clonazePAM 0.5 MG TABLET PO (05:27)
[2022-01-31 05:49] LABS: BUN Creatinine Ratio 39.6 (6-22); Blood Urea Nitrogen 36 mg/dL (9-20); Calcium 8.9 mg/dL (8.4-10.2); Carbon Dioxide 35 mmol/L (22-32); Chloride 100 mmol/L (98-107); Estimated Glomerular Filt Rate > 60 mL/min (>60); Glucose 137 mg/dL (80-110); HEMOLYSIS < 15 (0-50); Potassium 4.3 mmol/L (3.4-5.1); Sodium 138 mmol/L (137-145)
--- NOTE | 2022-01-31 05:51 | PC.NURSE ---
Patient became distressed and severely agitated after coughing up scant amounts of red-tinged sputum. Unsure if blood or from frequent administration of red-colored guaifenesin. Klonopin administered and spent roughly twenty minutes in room with patient talking and calming down. Patient now calm and resting comfortably, will monitor sputum color for changes.
[2022-01-31 05:55] LABS: Hematocrit 33.9 % (41-53); Hemoglobin 10.9 g/dL (13.5-17.5); Mean Corpuscular HGB Conc 32.3 % (30-36); Mean Corpuscular Hemoglobin 27.7 PG (26-34); Mean Corpuscular Volume 85.8 fL (80-100); Platelet Count 314 X10^3/uL (150-400); Red Blood Cell Count 3.95 X10^6/uL (4.5-5.9); Red Cell Distribution Width 14.5 % (11.6-14.8); White Blood Cell Count 20.7 X10^3/uL (4.5-11.0)
[2022-01-31 05:59] LABS: Add Manual Diff / Slide Review YES
[2022-01-31 06:34] LABS: Neutrophils Absolute Manual 17595 /uL (3000-5900); Total Cells Counted 100
[2022-01-31 06:40] LABS: Anisocytosis 1+
[2022-01-31] MEDS: ASPIRIN EC 81 MG TABLET PO (09:58)
[2022-01-31] MEDS: lisinopriL 10 MG TABLET PO (09:58)
[2022-01-31] MEDS: ENOXAPARIN 40 MG/0.4 ML SYRINGE SUBCUT (09:58)
[2022-01-31] MEDS: predniSONE 20 MG TABLET 60 MG PO (09:58)
--- NOTE | 2022-01-31 11:33 | OT.IP.EVAL ---
Current Diagnoses Acute and chronic respiratory failure with hypoxia (01/28/22) Past Medical History (Last Reviewed 01/28/22 @ 05:32 by Humphrey Blunt MD) Anxiety (~2015) Asthma (Unknown) COPD (chronic obstructive pulmonary disease) (~2013) GERD with stricture Hematuria (~2014) HTN (hypertension) Hyperlipidemia (~2015) Insomnia (~2015) Palpitations TIA (transient ischemic attack) (05/2014) Surgical History (Last Reviewed 01/28/22 @ 05:32 by Humphrey Blunt MD) No pertinent past surgical history Occupational Therapy Inpatient Evaluation/Re-Eval M1 PT/OT-IP Prior Functional Status Start: 01/31/22 11:43 Freq: NEEDED Status: Active Protocol: Document 01/31/22 10:40 [facility] (Rec: 01/31/22 12:12 [facility] [id number]) Medical Review Prior Functional Status Communication Independent Mobility and Gait Pt states prior furniture cruises or use of SPC, but lately having to use his fww or motorized wc in the house. Pt states can use his transport chair outside. Activities of Daily Living and IADL's Pt states been having more difficulty to micaela/doff his socks and mainly just sponging off due to decreased activity tolerance now. Social History Household Members none Living Arrangements House Number of Floors (Floors) One Floor Number of Stairs To Enter/Railing? no steps form the back door Home Environment Standard Height Toilet,Walk in Shower Home Equipment Front Wheel Walker,Power Wheelchair/Scooter,Bedside Commode,Shower Seat without Backrest,Sack Department Supervisor,Grab Bars Near Toilet,Grab Bars In Shower Additional Social History Comment Pt has an adjustable bed and transport chair at home. Pt has a LIfe Alert M2 OT-IP Current Condition Start: 01/31/22 11:43 Freq: Status: Active Protocol: Document 01/31/22 10:40 [facility] (Rec: 01/31/22 12:12 [facility] [id number]) Occupational Therapy Current Condition Current Condition Evaluation Date 01/31/22 Treatment Diagnosis Acute COPD exacerbation, generalized weakness Diagnosis Onset Date 01/28/22 M3 OT- IP Subjective and Pain Start: 01/31/22 11:43 Freq: Status: Active Protocol: Document 01/31/22 10:40 [facility] (Rec: 01/31/22 12:12 [facility] [id number]) OT- Subjective Occupational Therapy Visit Type Type Initial Evaluation Visit Start Time 10:40 Visit Stop Time 11:33 Total Visit Minutes 43 Occupational Therapy Visit Comments Patient Comments Pt agreed to try to get up and work with OT for OT eval. Patient/Caregiver Goals Pt adamant on going home. OT Pain Assessment Pain When Pain Assessed At Rest Pain Present Pain Present Pain Reported M4 OT- IP ADL's Start: 01/31/22 11:43 Freq: Status: Active Protocol: Document 01/31/22 10:40 [facility] (Rec: 01/31/22 12:12 [facility] [id number]) OT [id number] Comments OT Self-Feeding Comments Not at meal time. OT ADL-Grooming Comments OT Grooming Comments NOt performed as too weak to get to the sink. OT ADL-Oral Care Comments Oral Care Comments NOt performed. OT ADL-Dressing General Eval Lower Body Dressing Ability Standby Assistance Comments OT Dressing Comments Pt able to hike his RLE on the edge of the bed in order to micaela/doff his socks. OT ADL-Toileting Comments OT Toileting Comments Pt not having to go . Pt plans on wearing Depends at home and use of urinal and BSC next to the bed. OT ADL-Bathing Comments OT Bathing Comments Pt too tired to attempt a shower or sponging off at this time. M5 OT- IP IADL's Start: 01/31/22 11:43 Freq: Status: Active Protocol: Document 01/31/22 10:40 [facility] (Rec: 01/31/22 12:12 [facility] [id number]) OT-Instrumental Activities of Daily Living Home Safety Awareness Awareness of Need for Assistance at Home Good Awareness Ability to Problem Solve Emergency Able to Problem Solve Situations Medication Management Medication Management Comments Pt states has people check on him for making sure that he takes his medication. Pt states has all medication bottles in one area and everything written down what to take. Money Management Money Management Comments Pt states does his own. Meal Preparation Meal Preparation Caregiver Provides Assist Door Glass Installer Door Glass Installer Caregiver Provides Assist Driving Driving Caregiver Provides Assist M6 OT- IP Functional Cognition Start: 01/31/22 11:43 Freq: Status: Active Protocol: Document 01/31/22 10:40 [facility] (Rec: 01/31/22 12:12 [facility] [id number]) Cognitive Factors Limiting Selfcare Function Cognitive Ability Level of Alertness Alert Patient Orientation Name,Place,Situation Attention Span Ability Capable of Focused Attention, Capable of Sustained Attention Ability to Follow Commands Able to Follow One Step Commands Safety Awareness No Deficits Noted Problem Solving Ability No deficits Noted Cognitive Comments Cognitive Assessment Comments Pt appears at baseline for cognitive needs. Pt insistent on not going to SNF as states would feel better in his house environment and set-up. OT- Vision and Hearing OT- Vision Assessment Visual Acuity Glasses All The Time Visual Attentiveness WFL Occular Pursuits WFL M7 OT- IP Mobility and Balance Start: 01/31/22 11:43 Freq: Status: Active Protocol: Document 01/31/22 10:40 [facility] (Rec: 01/31/22 12:12 [facility] [id number]) OT- Bed Mobility Assessment Rolling Type of Rolling Roll to Left Level of Assistance Head of Bed Elevated Supine to Sit Supine to Sit Assist Standby Assistance,Head of Bed Elevated Sit to Supine Sit to Supine Assist Standby Assistance,Head of Bed Elevated OT-Transfer Assessment Sit to and From Stand Sit to and from Stand Standby Assistance Transfers Transfer Ability Contact Guard Assistance, Moderate Assistance Technique Transfer Destination Bed Transfer Technique Stand Step Pivot Devices Transfer Assistive Devices Gait Belt,Front Wheeled Walker Comments Mobility Comments Pt BP sitting 140/69 and standing 151/78 HR at rest from 115-118 and when up 125- 128. Pt able to stand to FWW and having loss of balance and needing MODA to help ease down to the bed as unable to catch himself from falling backwards. Pt able to take two steps with FWW towards the sink and then needing to get back to bed as too tired and needing CGA for safety. Pt on 2L on O2 and from 91%-94%. OT- Balance Assessment Sitting Balance and Reactions Static Sitting Balance Ability Good Dynamic Sitting Balance Ability Good Standing Balance and Reactions Static Standing Balance Ability Fair Dynamic Standing Balance Ability Poor M8 OT- IP Objective Assessments Start: 01/31/22 11:43 Freq: Status: Active Protocol: Document 01/31/22 10:40 [facility] (Rec: 01/31/22 12:12 [facility] [id number]) OT Gross Range of Motion Upper Extremity Range of Motion Assessment Bilaterally Impaired ROM Impairments LUE decreased greater than RUE at for shoulder flexion. OT Strength Upper Extremity Strength Assessment Bilaterally Impaired OT-Muscle Tone Assessment Muscle Tone WNL Yes M9 OT- IP Assessment and Plan Start: 01/31/22 11:43 Freq: Status: Active Protocol: Document 01/31/22 10:40 [facility] (Rec: 01/31/22 12:12 [facility] [id number]) OT Summary Assessment and Plan Potential Rehabilitation Potential Good Analytic Complexity at Evaluation Moderate Summary OT Impairments Strength,Balance,Functional Mobility,Grooming,Dressing, Toileting,Bathing,Toilet Transfers,Shower Transfers, Activity Tolerance Progress Towards Goals Slow Progress due to Medical Issues,Slow Progress due to Activity Tolerance Assessment Summary Pt MOD complexity and main barriers are decreased activity tolerance, balance and strength and therefore needing one person assist for all needs at this time. Pt only able to tolerate taking a few step with FWW. Pt insistent on not going to skilled rehab which is suggested by OT. Pt is a high fall risk. Goals Self-Feeding Goal Independent Grooming Goal Independent Dressing Goal Independent Toileting Goal Independent Bathing Goal Minimal Assistance Toilet Transfer Goal Independent Shower Transfer Goal Contact Guard Assistance Patient/Caregiver Education Goal Demonstrate Energy Conservation and Pacing Days to Meet Goals 20 Frequency of Treatment Frequency Of Treatment Once a Day Treatment Plan OT Treatment Plan ADL Training,Functional Mobility,Patient/Family Education,Discharge Planning Other Treatment Recommendations and Next stand at sink for grooming Treatment Focus needs with FWW Discharge Recommendations OT Discharge Recommendations Home with 24/7 Assist Available,Home Health,SNF Rehab,Home vs SNF Other Discharge Recommendations Suggesting SNF, but pt refusing at this time. Therefore if going home would benefit from 24/7 available assist and home health. Transportation Needs at Discharge Private Vehicle,Wheelchair/ Cabulance
--- NOTE | 2022-01-31 12:08 | PT.IIE ---
Current Diagnoses Acute and chronic respiratory failure with hypoxia (01/28/22) Surgical History (Last Reviewed 01/28/22 @ 05:32 by Humphrey Blunt MD) No pertinent past surgical history Medical History (Last Reviewed 01/28/22 @ 05:32 by Humphrey Blunt MD) Anxiety (~2015) Asthma (Unknown) COPD (chronic obstructive pulmonary disease) (~2013) GERD with stricture Hematuria (~2014) HTN (hypertension) Hyperlipidemia (~2015) Insomnia (~2015) Palpitations TIA (transient ischemic attack) (05/2014) Physical Therapy Inpatient Evaluation/Re-Eval M1 PT/OT-IP Prior Functional Status Start: 01/31/22 13:44 Freq: NEEDED Status: Active Protocol: Document 01/31/22 12:08 [facility] (Rec: 01/31/22 14:10 [facility] [id number]) Medical Review Prior Functional Status Medical History Reviewed Yes Communication able to make needs known Mobility and Gait pt stated that he is modified independent with all mobilities at home using a SPC for indoor mobility and uses either a SPC or transport chair for outdoor mobility. stated that he just recently got an electric w/c and has been getting used to using it inside/outside the house Social History Household Members none Living Arrangements House Number of Floors (Floors) One Floor Number of Stairs To Enter/Railing? no steps form the back door Home Environment Standard Height Toilet,Walk in Shower Home Equipment Front Wheel Walker,Straight Cane,Power Wheelchair/Scooter, Bedside Commode,Shower Seat without Backrest,Hand Held Shower,Senior Director Creative Services,Grab Bars Near Toilet,Grab Bars In Shower Additional Social History Comment Pt has an adjustable bed and transport chair pt stated that he has family members that will assists him when he goes home but there will not be just one person has a caregiver that comes in Mondays and for ~ 5 hours each time to assist him M2 PT-IP Current Condition Start: 01/31/22 13:44 Freq: NEEDED Status: Active Protocol: Document 01/31/22 12:08 [facility] (Rec: 01/31/22 14:10 [facility] [id number]) Physical Therapy Current Condition Current Condition Evaluation Date 01/31/22 Treatment Diagnosis PNA; COPD exacerbation; difficulty in walking Onset Date 01/28/22 M3 PT-IP Subjective Start: 01/31/22 13:44 Freq: NEEDED Status: Active Protocol: Document 01/31/22 12:08 [facility] (Rec: 01/31/22 14:10 [facility] [id number]) Subjective Physical Therapy Visit Type Type Initial Evaluation Visit Start Time 12:08 Visit Stop Time 12:40 Total Visit Minutes 32 Number of DENTAL LABORATORY TECHNOLOGY TEACHER Visits 0 Physical Therapy Visit Comments Patient Comments agreed to do PT M4 PT-IP Mobility and Gait Start: 01/31/22 13:44 Freq: NEEDED Status: Active Protocol: Document 01/31/22 12:08 [facility] (Rec: 01/31/22 14:10 [facility] [id number]) PT-Bed Mobility Assessment Supine to Sit Supine to Sit Standby Assistance Sit to Supine Sit to Supine Standby Assistance PT-Transfer Assessment Sit to and From Stand Sit to and from Stand Standby Assistance,1 Person Assistance Equipment Transfer Assistive Device Gait Belt,Front Wheeled Walker Orthotic/Prosthetic Devices or Brace: No Comments Mobility Comments O2 sat at 2 L at rest: 93% HR : 107-118 completed supine to sit with HOB elevated SBA. (+) SOB. O2 sat 91%. able to sit on EOB SBA. required frequent and increase rest breaks in between tasks. pt also tends to direct his own care. completed sit to stand SBA. O2 sat in standing 90%. pt stated that he uses 4L/min of O2 at home when he moves around and requested for O2 to increase to 4. O2 sat 93%. ambulated ~ 2 ft using FWW CGA and stated that he feels dizzy and that he might collapse. instructed to back up and completed using fWW. O2 sat upon sitting on EOb: 91%. completed sit to supine SBA. positioned in bed. call light and table placed within reach . Left pt with NAC. O2 put back to 2L/min. Gait Assessment Gait Gait Assistance Required: Contact Guard Assist Distance (Feet) 4 Able to Maintain Weight Bearing Status Yes During Gait Assistive Devices Assistive Device Gait Belt,Front Wheeled Walker Orthotic/Prosthetic Devices or Brace: No Gait Deviations General Gait Pattern Decreased Stride Length, Decreased Feet Clearance,Step- to Gait,Wide Based Gait Factors Limiting Gait Function Factors Limiting Gait Function Decreased Activity Tolerance, Decreased Strength,Difficulty Following Directions,Limited Range of Motion,Pain,Poor Balance,Poor Safety Awareness, Respiratory Distress PT-Balance Assessment Sitting Balance and Reactions Static Sitting Balance Ability Normal Dynamic Sitting Balance Ability Good Standing Balance and Reactions Static Standing Balance Ability Fair Dynamic Standing Balance Ability Fair Device Used FWW M5 PT-IP Objective Assessments Start: 01/31/22 13:44 Freq: NEEDED Status: Active Protocol: Document 01/31/22 12:08 [facility] (Rec: 01/31/22 14:10 AB [id number]) Orientation Orientation/Cognition Level of Alertness Alert Orientation Name,Place,Situation Language Function Ability No Deficits Noted Safety Awareness Decreased Safety Awareness Gross Range of Motion Lower Extremity ROM Assessment Within Functional Limits Strength Lower Extremity Strength Assessment Bilaterally Impaired Comments Strength Comments RLE: 3+/5 LLE: 4-/5 Muscle Tone Muscle Tone WNL Yes M6 PT-IP Treatment Start: 01/31/22 13:44 Freq: NEEDED Status: Active Protocol: Document 01/31/22 12:08 [facility] (Rec: 01/31/22 14:10 AB [id number]) Physical Therapy Treatment Education Education Provided Safety M7 PT-IP Assessment and Plan Start: 01/31/22 13:44 Freq: NEEDED Status: Active Protocol: Document 01/31/22 12:08 [facility] (Rec: 01/31/22 14:10 AB [id number]) PT Summary Assessment and Plan Potential Rehabilitation Potential Fair Status of Condition at Evaluation Evolving Summary Impairments Pain,ROM,Strength,Balance, Coordination,Sensation,Tone, Cognition,Bed Mobility, Transfers,Gait,Activity Tolerance Assessment Summary pt requiring SBA to CGA with mobility but unable to tolerate much activity and only able to ambulate ~ 4 ft using FWW. d/c plan depending on progress but at this time will need SNF rehab to improve overall strength and mobility independence. will continue to assess progress. Goals Bed Mobility Goal Independent Transfer Goal Independent,Front Wheeled Walker Gait Goal Independent,Front Wheel Walker Gait Distance 50 Other Goals improve ambulation using FWW 75 ft mod I Days to Meet Goals 10 Frequency of Treatment Frequency Of Treatment Once a Day Treatment Plan Physical Therapy Treatment Plan Bed Mobility Training,Transfer Training,Gait Training, Therapeutic Exercise,Balance Retraining,Discharge Planning, Hot or Cold Pack,Neuromuscular Re-ed,Coordination Retraining Precautions Other Precautions droplet precautions: stiles virus Recommendations To Nursing Amount of Assist Needed 1 Person Assist Discharge Recommendations PT Discharge Recommendations Home with / Assist Available,Home Health,Home vs SNF Transportation Needs at Discharge Private Vehicle,Wheelchair/ Cabulance
--- NOTE | 2022-01-31 13:55 | P.DS_ITS ---
History of Present Illness History of Present Illness Date Patient Seen: 01/28/22 Time Patient Seen: 05:00 Chief complaint: SOB/ infection Narrative: From [facility] at the time of admission Mr. Rose is a 61M with PMH COPD on 2-4L O2 at home, steroid dependent who presents with cough and shortness of breath. He continues to smoke a few cigarettes daily. He acknowledges his quality of life is declining. He has been on steroids for approximately a year on prolonged tapers, and most recently tapered down to 10mg daily of prednisone. Four days ago he developed worsening shortness of breath, he developed a productive cough with thick whitish yellow sputum. No fevers/chills, no chest pain, but does have chest tightness. No lower extremity swelling. He was seen in the ED a few days ago and was able to be discharged home with recommendation to take additional steroids. However his shortness of breath worsened and he presented back to the ED. In the ED, workup was done, he was noted to be tachycardic and tachypenic sats in the 90s on 4L. Labs notable for wBC 31.1, hgb 12.1, plts 317, creatinine 0.91. Lactate 1.8. Procal 0.15. COVID negative. Chest xray showed bilateral patchy indistinct opacities consistent with possible atypical pneumonia and hyperinflation of the lungs. On recent visit to the ED he was positive for non- COVID coronavirus. He was ordered for steroids and nebs and admitted for further treatment. Discharge Providers Provider Date of admission: 01/28/22 02:09 Discharge Date: 01/31/22 Primary care physician: Saqib Oliva DO Consults: 01/30/22 14:43 Consult to Physical Therapy Evaluate & Treat Comment: SNF placement Physician Instructions: Evaluate and Treat 01/30/22 14:44 Consult to Occupational Therapy Evaluate & Treat Comment: Potential SNF placement. Physician Instructions: Evaluate and treat 01/30/22 14:54 Consult to Color Separation Photographer Routine Comment: Placement for potential rehab vs Home Health 01/31/22 11:40 Consult to Home Health Routine Comment: Reason For Exam: Home health upon DC Discharge provider: Kiara Calderon MD Summary Hospital Course Discharge Diagnosis: Acute hypoxic respiratory failure secondary to severe COPD exacerbation Acute physical deconditioning, unable to carry daily activities-physical therapy recommended rehab, patient refused, discharged with home physical therapy Chronic hypoxic respiratory failure on 2 L nasal cannula at home secondary to COPD Benign essential hypertension, well controlled Sinus tachycardia combination of hypoxia and anxiety Generalized anxiety disorder, benzo dependency Hospital Course: Patient was admitted for severe Acute hypoxic respiratory failure secondary to COPD exacerbation require multiple doses of nebulizer therapies and IV steroids. Patient also was treated with antibiotic prophylactic. Patient improved slowly during this hospitalization transition to p.o. on 01/30/2022, tolerated breathing treatments well, did not do well with the physical therapy was required to go for rehab but patient refused to go to the rehab because he wants to go home with home physical therapy. Other medical conditions Chronic hypoxic respiratory failure on 2 L nasal cannula at home secondary to COPD Benign essential hypertension, well controlled Sinus tachycardia combination of hypoxia and anxiety DVT and GI prophylaxis reviewed, appropriately applied I had an extensive discussion regarding requirement to go to the rehab, patient refused. Sister understands the risks I also talked to her. Status at Discharge Cognitive/behavioral status at discharge: oriented Functional status at discharge: uses cane/walker Overall status at discharge: patient is progressing back to baseline Time Spent with Patient Time spent: Greater than 30 minutes Exam Vital Signs (past 8 hours): - 01/31/22 06:00 01/31/22 08:25 01/31/22 09:29 Temperature 97.4 F L 97.3 F L Pulse Rate 84 94 H Respiratory Rate 22 20 Blood Pressure 134/61 144/79 H Pulse Oximetry 96 95 92 Oxygen Delivery Method Nasal Cannula Oxygen Flow Rate 3 2.5 2 01/31/22 09:58 01/31/22 13:00 Temperature Pulse Rate 94 H Respiratory Rate Blood Pressure 144/79 H Pulse Oximetry 93 Oxygen Delivery Method Nasal Cannula Oxygen Flow Rate 2 Fraction of Inspired Oxygen 36 Oxygen Delivery Method Nasal Cannula Oxygen Flow Rate 2 Narrative Exam Narrative: Patient breathing status seems to be significantly improved this morning. Patient is anxious but breathing close to his baseline as per himself. Able to have a reasonable conversation without getting distress. Able to ambulate with help and walker. Patient adamantly refused to go to rehab, after spending several minutes counseling. Bilateral air entry still poor but better than yesterday, still has coarse breath sounds, decreased air entry consistent with his advanced COPD. Objective Labs Result Diagrams: 01/31/22 05:05 01/31/22 05:05 Labs: Laboratory Results - last 24 hr 01/31/22 01/31/22 05:05 05:05 WBC 20.7 H RBC 3.95 L Hgb 10.9 L Hct 33.9 L MCV 85.8 MCH 27.7 MCHC 32.3 RDW 14.5 Plt Count 314 Neut % (Auto) Not Reportable Lymph % (Auto) Not Reportable [place] % (Auto) Not Reportable Eos % (Auto) Not Reportable Baso % (Auto) Not Reportable Lymph # (Auto) Not Reportable [place] # (Auto) Not Reportable Baso # (Auto) Not Reportable Total Counted 100 Seg Neutrophils % 83.0 H Band Neutrophils % 2.0 L Lymphocytes % (Manual) 9.0 L Monocytes % (Manual) 3.0 Metamyelocytes % 2.0 H Myelocytes % 1.0 H Neutrophils # (Manual) 94496 H RBC Morphology See below Anisocytosis 1+ H Sodium 138 Potassium 4.3 Chloride 100 Carbon Dioxide 35 H BUN 36 H Creatinine 0.91 Estimated GFR > 60 BUN/Creatinine Ratio 39.6 H Glucose 137 H Calcium 8.9 PFSH Medical History Anxiety (~2015) Asthma (Unknown) COPD (chronic obstructive pulmonary disease) (~2013) GERD with stricture Hematuria (~2014) HTN (hypertension) Hyperlipidemia (~2015) Insomnia (~2015) Palpitations TIA (transient ischemic attack) (05/2014) Surgical History No pertinent past surgical history Family History Mother Age: 83 Hypertension Sister Age: 66 Cancer Social History household members: none Smoking Status: Current some day smoker Tobacco: How many years used: 47 quit status: considering quitting second hand exposure: No alcohol intake: former substance use type: does not use Discharge Assessment & Plan Assessment and Plan Assessment: Acute hypoxic respiratory failure secondary to COPD exacerbation -transitioning to p.o. steroids today to see if he will tolerate, continue nebulizer therapy, encouraged deep breathing, incentive spirometry, slowly improving, most likely will be discharged in 2-3 days as clinically improves Acute physical deconditioning, unable to carry daily activities-physical therapy to evaluate, pending recommendation Chronic hypoxic respiratory failure on 2 L nasal cannula at home secondary to COPD Benign essential hypertension, well controlled Sinus tachycardia combination of hypoxia and anxiety DVT and GI prophylaxis reviewed Discharge Plan Discharge Plan Patient Disposition: Home Health Service Provider Discharge Comment: Close follow up with PCP and Pulmonary recommended Nursing Discharge Comment: Education on COPD and Follow up (Communicated about the Prednisone dosing 60 MG for 2 more days) Discharge orders & Medications Prescriptions: Continued albuterol sulfate [Ventolin HFA] 90 mcg/actuation HFA aerosol inhaler See Rx Instructions .ROUTE .COMPLEX Qty: 18 3RF Dose Instruction: INHALE 1 - 2 PUFFS EVERY 4 HOURS NEEDED FOR SHORTNESS OF BREATH OR WHEEZING Rx Instructions: INHALE 1 - 2 PUFFS EVERY 4 HOURS NEEDED FOR SHORTNESS OF BREATH OR WHEEZING (DME) Disabled Parking Permit Qty: 1 0RF Rx Instructions: Patient qualifies for permanent disabled parking permit. Dulera 200-5 mcg/actuation HFA aerosol inhaler See Rx Instructions .ROUTE .COMPLEX Qty: 13 6RF Dose Instruction: INHALE 2 PUFFS BY MOUTH TWICE DAILY Rx Instructions: INHALE 2 PUFFS BY MOUTH TWICE DAILY benzonatate 100 mg capsule 100 mg PO BID-TID Qty: 270 1RF levalbuterol HCl 1.25 mg/3 mL solution for nebulization 1.25 mg INHALATION Q6HR PRN (Reason: Wheezing) Qty: 75 5RF ipratropium-albuterol 0.5 mg-3 mg(2.5 mg base)/3 mL solution for nebulization 3 ml INHALATION BID PRN (Reason: wheezing/ SOB) Qty: 90 11RF ondansetron 4 mg tablet,disintegrating 4 mg PO BID-TID PRN (Reason: Nausea) prednisone 20 mg tablet 40 mg PO DAILY nystatin 100,000 unit/mL suspension 5 ml PO QID Qty: 200 1RF montelukast 10 mg tablet 10 mg PO QPM Qty: 90 3RF Spiriva with HandiHaler 18 mcg capsule, w/inhalation device 18 mcg inhalation DAILY Qty: 90 3RF acetaminophen 325 mg Tablet 1 dose PO PRN PRN (Reason: pain) magnesium hydroxide 400 mg/5 mL Suspension 1 dose PO PRN PRN (Reason: Indigestion) Label Comments: patient states uses often Mylanta ibuprofen 200 mg Tablet 1 dose PO PRN PRN (Reason: pain) aspirin 81 mg Tablet 81 mg PO DAILY nitroglycerin 0.3 mg tablet, sublingual 0.3 mg sublingual Q5-15M PRN (Reason: chest pain) Qty: 20 0RF Rx Instructions: do not exceed 3 doses per episode ipratropium-albuterol 0.5 mg-3 mg(2.5 mg base)/3 mL solution for nebulization 3 ml INHALATION Q4-6H PRN (Reason: shortness of breath or wheezing) Qty: 90 0RF clonazepam 0.5 mg tablet 0.5 mg PO BID PRN (Reason: Anxiety) simvastatin 20 mg tablet 20 mg PO DAILY lisinopril 10 mg tablet 10 mg PO DAILY Discontinued sumatriptan succinate 50 mg Tablet 50 mg PO DAILY Rx Instructions: Take 1 tablet by mouth at onset of migraine Medication counseling provided by Pharmacist: Yes Follow up/Referrals: Saqib Oliva DO [Primary Care Provider] - Visit Report/Discharge Packet Instructions: DI for Chronic Obstructive Pulmonary Disease, Prednisone, [place] Respiratory Syndrome Coronavirus Discharge Data Primary Care Provider: Saqib Oliva
[2022-01-31 15:10] LABS: Alanine Aminotransferase 36 IU/L (<50)
--- NOTE | 2022-01-31 16:00 | CM.DPNOTE ---
DC Note MD and therapy team recommending SNF; patient adamantly refusing SNF Patient discharged home today; spoke w/Clarissa at [facility] about referring patient to [facility] and Clarissa agrees patient would be a great candidate- faxed referral. F/u expected beginning of next week Placed call to patient's JENNIFER Levine at [facility], she does not work Fridays so had to . Suggested patient be re-evaluated for additional hours. Spoke w/patient, sister in room. Reviewed DCP. Patient eager to return home, agreeable to [facility]. Patient denies need for meals on wheels at this time. Sister to transport home In addition- suggested to patient that this CONTRACT TECHNICAL WRITER make referral to Celestine Aguilar, community electric power superintendent, [employer]. Patient declined at this time; states he would like JENNIFER Johnson to work on resource development for him Plan: DC home w/family to transport, [facility], mayra RODRIGUEZ care givers JW
[2022-01-31 16:33] LABS: HIV 1 & 2 Ab/Ag 4th Gen Combo NEGATIVE (NEGATIVE); Hep C Virus Ab w/Reflex Quant NEGATIVE s/c (NEGATIVE); Hepatitis B Surface Antigen NEGATIVE s/c (NEGATIVE)
--- NOTE | 2022-01-31 17:25 | PC.NURSE ---
Pt is A&Ox3. VSS, afebrile initially on 4 LNC but weaned to 2 LNC this shift and appears to be tolerating it well. He is able to make his requests known and get back and forth bed to bsc independently. MD at bedside this afternoon clearing patient for discharge and the patient verbalizes agreement and understanding of medications (prednisone taper), activity, as well as s/sx of worsening of symptoms. 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 Pt is escorted with all of his belongings, his home 02 tank via w/ch to private vehicle with his sister this afternoon at 1620 for discharge home. Home health had notified patient and is being set up for patient currently.
[2022-02-01 07:24] LABS: Hepatitis B Surf Ab Qualitativ Non Reactive (.)
== END 2022-01-31 16:20 | disposition home health service (06) | DRG 189 ==
LOC: ED 01-28 00:20 → AC 01-28 02:13
PROVIDERS: Admitting Provider Internal Medicine; Emergency Provider Emergency Medicine; PCP Family Medicine; Visit Provider Family Medicine
DX: J96.21 Acute and chronic respiratory failure with hypoxia (principal); J44.1 Chronic obstructive pulmonary disease with (acute) exacerbation; F13.20 Sedative, hypnotic or anxiolytic dependence, uncomplicated; I10 Essential (primary) hypertension; E78.5 Hyperlipidemia, unspecified; K21.9 Gastro-esophageal reflux disease without esophagitis; F17.210 Nicotine dependence, cigarettes, uncomplicated; Z20.822 Contact with and (suspected) exposure to COVID-19; F41.1 Generalized anxiety disorder; J06.9 Acute upper respiratory infection, unspecified; R00.0 Tachycardia, unspecified
CPT/HCPCS: 36415; 71045; 71046; 71275; 80048; 80053; 82550; 83605; 83690; 83880; 84145; 84484; 85007; 85025; 85610; 85730; 87040; 87070; 87205; 87633; 87635; 93005; 93010; 94150; 94640; 94760; 94762; 96361; 96374; 97162; 97166; 99284; C9803; J1650; J1885; J1956; J2930; J7613; Q9967

== ENCOUNTER 2022-03-10 15:00 | Emergency (ER) | payer MEDICARE, MEDICAID, SELFPAY ==
[2022-01-28 02:15] VITALS: BMI 22.1
[2022-03-10] VITALS (9 sets, daily range): BP systolic 117–128; BP diastolic 62–85; PULSE 93–117; RESP 16–30; TEMP 36.9; O2SAT 96–97; BMI 23.6
--- NOTE | 2022-03-10 15:21 | DI.RAD.S_ITS ---
PROCEDURE: XR CHEST 1V INDICATIONS: chest pain TECHNIQUE: One view of the chest was acquired. COMPARISON: [facility], CT, CT ANGIO CHEST PE PROTOCOL, 01/28/2022, 0:57. [facility], CR, XR CHEST 1V, 01/27/2022, 23:58. FINDINGS: Surgical changes and devices: None. Lungs and pleura: Findings of COPD and emphysema. No plain radiographic correlate for the acute airspace opacities demonstrated on 01/28/2022 CT angiogram of the chest. No pleural effusions or pneumothorax. Mediastinum: Mediastinal contours appear normal. Heart size is normal. Bones and chest wall: No suspicious bony lesions. Overlying soft tissues appear unremarkable. IMPRESSION: No acute cardiopulmonary process demonstrated radiographically. COPD and emphysema. Areas of scarring and scattered tree-in-bud nodularity and acute nodular consolidation seen on the comparison CT chest have plain radiographic correlate. Dictated by: Neymar Schmidt M.D. on 03/10/2022 at 15:41 Approved by: Neymar Schmidt M.D. on 03/10/2022 at 15:42
--- NOTE | 2022-03-10 15:31 | PC.NURSE ---
Pt reports seeing a pressure testing technician several years ago and being told he has a ventricular arrhythmia but was not place on any medications. Reports frequent episodes of heart racing with exertion. Pt says this episode today is worst ever.
[2022-03-10 15:33] LABS: Add Manual Diff / Slide Review NO; Basophils Absolute Auto 200 /uL (0-100); Eosinophils Absolute Auto 0 /uL (0-450); Hematocrit 34.2 % (41-53); Hemoglobin 11.1 g/dL (13.5-17.5); Lymphocytes Absolute Auto 1400 /uL (1100-4500); Lymphocytes Percent Auto 6.5 % (25-40); Mean Corpuscular HGB Conc 32.5 % (30-36); Mean Corpuscular Hemoglobin 27.1 PG (26-34); Mean Corpuscular Volume 83.2 fL (80-100); Monocytes Absolute Auto 400 /uL (0-900); Monocytes Percent Auto 1.8 % (3-14); Neutrophils Absolute Auto 19100 /uL (1500-7000); Neutrophils Percent Auto 90.7 % (50-75); Platelet Count 344 X10^3/uL (150-400); Red Blood Cell Count 4.11 X10^6/uL (4.5-5.9); Red Cell Distribution Width 15.1 % (11.6-14.8)
[2022-03-10 15:34] LABS: Alanine Aminotransferase 21 IU/L (<50); Albumin 3.9 g/dL (3.5-5.0); Alkaline Phosphatase 64 U/L (38-126); Aspartate Aminotransferase 29 IU/L (17-59); BUN Creatinine Ratio 31.5 (6-22); Bilirubin Total 0.3 mg/dL (0.2-1.3); Blood Urea Nitrogen 28 mg/dL (9-20); Calcium 10.1 mg/dL (8.4-10.2); Carbon Dioxide 37 mmol/L (22-32); Chloride 98 mmol/L (98-107); Creatine Kinase 27 U/L (55-170); Estimated Glomerular Filt Rate > 60 mL/min (>60); Globulin 3.8 g/dL (1.7-4.1); Glucose 144 mg/dL (80-110); HEMOLYSIS 39 (0-50); Lipase 283 U/L (23-300); Potassium 4.7 mmol/L (3.4-5.1); Sodium 141 mmol/L (137-145); Total Protein 7.7 g/dL (6.3-8.2)
[2022-03-10 15:44] LABS: Troponin I < 0.012 ng/mL (0.01-0.034)
[2022-03-10 15:51] LABS: COVID19 -Nasal RAPID Negative (Negative)
--- NOTE | 2022-03-10 16:24 | ED.ARRPALP ---
HPI - Arrhythmia/Palpitations General Chief Complaint: Arrhythmia/Palpitations Stated Complaint: tachycardia Time Seen by Provider: 03/10/22 16:05 Source: patient and EMS Mode of arrival: EMS History of Present Illness HPI narrative: This 61-year-old man comes to the ER today because of severe tachycardia and breathlessness. He has had multiple episodes similar to this 1 over the past year. This 1 was the worst he has ever had. He was not doing any particular exertion when the tachycardia started. He could see on his finger oxygen saturation monitor that his heart rate was above 150 beats per minute. He felt very short of breath and profoundly fatigued but no chest pain. By the time I am seeing him his heart rate is now calmed down to the mid 1 teens. He has not been sick otherwise. He has had the same thing happen multiple times previously. No specific diagnosis has been found. Rhythm monitor is also been done and was nondiagnostic previously. Related Data Home Medications Medication Instructions Recorded Confirmed ondansetron 4 mg disintegrating 4 mg PO BID-TID PRN Nausea 12/03/18 01/28/22 tablet acetaminophen 325 mg tablet 1 dose PO PRN PRN pain 12/29/18 01/28/22 ibuprofen 200 mg tablet 1 dose PO PRN PRN pain 12/29/18 01/28/22 magnesium hydroxide 400 mg/5 mL 1 dose PO PRN PRN Indigestion 12/29/18 01/28/22 oral suspension aspirin 81 mg tablet 81 mg PO DAILY 12/30/20 01/28/22 clonazepam 0.5 mg tablet 0.5 mg PO BID PRN Anxiety 01/28/22 01/28/22 lisinopril 10 mg tablet 10 mg PO DAILY 01/28/22 01/28/22 simvastatin 20 mg tablet 20 mg PO DAILY 01/28/22 01/28/22 Previous Rx's Medication Instructions Recorded albuterol sulfate 90 mcg/actuation See Rx Instructions .Route 05/04/19 aerosol inhaler (Ventolin HFA) .COMPLEX #18 grams Disabled Parking Permit #1 ea 06/24/19 nitroglycerin 0.3 mg sublingual 0.3 mg sublingual Q5-15M PRN chest 01/23/21 tablet pain #20 tabs mometasone-formoterol HFA 200 See Rx Instructions .Route 07/24/21 mcg-5 mcg/actuation aerosol .COMPLEX #13 grams inhaler (Dulera) montelukast 10 mg tablet 10 mg PO QPM #90 tabs 08/12/21 tiotropium bromide 18 mcg capsule 18 mcg inhalation DAILY #90 08/12/21 with inhalation device (Spiriva inhalations with HandiHaler) benzonatate 100 mg capsule 100 mg PO BID-TID #270 caps 11/28/21 ipratropium 0.5 mg-albuterol 3 mg 3 ml inhalation BID PRN wheezing/ 01/24/22 (2.5 mg base)/3 mL nebulization SOB #90 mL soln levalbuterol HCl 1.25 mg/3 mL 1.25 mg (3 mL) inhalation Q6HR PRN 01/24/22 solution for nebulization Wheezing #75 mL ipratropium 0.5 mg-albuterol 3 mg 3 ml inhalation Q4-6H PRN 01/26/22 (2.5 mg base)/3 mL nebulization shortness of breath or wheezing soln #90 mL nystatin 100,000 unit/mL oral 5 ml PO QID #200 mL 02/25/22 suspension prednisone 20 mg tablet See Rx Instructions .Route 02/25/22 .COMPLEX #90 tabs Allergies Allergy/AdvReac Type Severity Reaction Status Date / Time cinnamon [CINNAMON] Allergy Severe RESP Verified 12/15/21 09:16 PROBLEMS AND SWELLING Sulfa (Sulfonamide Allergy Severe anaphylacti Verified 12/15/21 09:16 Antibiotics) c [SULFA (SULFONAMIDE ANTIBIOTICS)] fluticasone [FLUTICASONE] Allergy Intermediate FEELS Verified 12/15/21 09:16 LIKE FIRE IN THE LUNGS trimethoprim [TRIMETHOPRIM] Allergy Unknown Patient Verified 12/15/21 09:16 can't remember beclomethasone [From QVAR] AdvReac Severe tachycardia Verified 12/15/21 09:16 budesonide [From SYMBICORT] AdvReac Severe tachycardia Verified 12/15/21 09:16 formoterol [From SYMBICORT] AdvReac Severe tachycardia Verified 12/15/21 09:16 codeine [CODEINE] AdvReac Intermediate violent Verified 12/15/21 09:16 doxycycline [DOXYCYCLINE] AdvReac Mild N/V Verified 12/15/21 09:16 Review of Systems Review of Systems Narrative: Complete review of systems is negative other than as noted above. Patient History Medical History Anxiety (~2015) Asthma (Unknown) COPD (chronic obstructive pulmonary disease) (~2013) GERD with stricture Hematuria (~2014) HTN (hypertension) Hyperlipidemia (~2015) Insomnia (~2015) Palpitations TIA (transient ischemic attack) (05/2014) Surgical History No pertinent past surgical history Family History Mother Age: 83 Hypertension Sister Age: 66 Cancer Social History household members: none Smoking Status: Current some day smoker Tobacco: How many years used: 47 quit status: considering quitting second hand exposure: No alcohol intake: former substance use type: does not use Smoking Status: Current some day smoker tobacco type: cigarettes alcohol intake frequency: 0-2 drinks per day Substance Use Type: marijuana Exam Narrative Exam Narrative: GENERAL: Alert, cooperative and in no distress. Mild tachypnea HEAD: Atraumatic. Normocephalic. EYES: Sclera are clear without icterus. Extraocular movements are full. ENT: No rhinorrhea. Oropharynx is moist. Mouth exam is benign. NECK: Supple. Full range of motion. CARDIOVASCULAR: Normal rate and rhythm without murmur gallop or rub. RESPIRATORY: Clear to auscultation. Breath sounds equal bilaterally. No wheezes, rales, or rhonchi. Barrel shaped chest. Mild tachypnea. GASTROINTESTINAL: Abdomen soft, non-tender, nondistended. EXTREMITIES: No edema, full range of motion. No obvious trauma. BACK: Normal inspection, no CVA tenderness. NEURO: Nonfocal examination, normal speech, normal gait. SKIN: No rash or erythema of visible areas PSYCH: Normally oriented. Normal range of affect. Appropriate behavior Initial Vital Signs Initial Vital Signs: Vital Signs Pulse Rate 117 H 03/10/22 15:09 Respiratory Rate 24 03/10/22 15:09 Pulse Oximetry 97 03/10/22 15:09 Course Orders Ordered: ED Orders 03/10/22 15:06 COVID19 -Nasal RAPID/Pre-Proc Stat Complete Blood Count AUTO DIFF Stat Comprehensive Metabolic Panel Stat Lipase Stat Magnesium Stat Troponin & CK Cardiac Panel Stat 03/10/22 15:10 EKG-12 Lead Routine 03/10/22 15:21 XR chest 1V Stat Consultations Consultation #1: I spoke with Dr. Thurman who is taking call for Dr. Oliva right now who agreed to arrange for outpatient prompt follow-up. Vital Signs Vital signs: Vital Signs - 8 hr 03/10/22 15:12 03/10/22 15:09 03/10/22 15:30 Temperature 98.5 F Pulse Rate 115 H 117 H Respiratory Rate 16 24 Blood Pressure 117/70 120/71 Pulse Oximetry 97 97 Oxygen Delivery Method Nasal Cannula Oxygen Flow Rate 3 03/10/22 15:30 03/10/22 16:00 03/10/22 16:00 Temperature Pulse Rate 112 H 102 H Respiratory Rate 30 H Blood Pressure 121/72 Pulse Oximetry 96 97 Oxygen Delivery Method Oxygen Flow Rate MDM - Arrhythmia/Palpitations Lab Data Result diagrams: 03/10/22 15:06 03/10/22 15:06 Labs: Lab Results 03/10/22 03/10/22 03/10/22 Range/Units 15:06 15:06 15:06 WBC 21.0 H (4.5-11.0) X10^3/uL RBC 4.11 L (4.5-5.9) X10^6/uL Hgb 11.1 L (13.5-17.5) g/dL Hct 34.2 L (41-53) % MCV 83.2 (80-100) fL MCH 27.1 (26-34) PG MCHC 32.5 (30-36) % RDW 15.1 H (11.6-14.8) % Plt Count 344 (150-400) X10^3/uL Neut % (Auto) 90.7 H (50-75) % Lymph % (Auto) 6.5 L (25-40) % [place] % (Auto) 1.8 L (3-14) % Eos % (Auto) 0.0 L (2-4) % Baso % (Auto) 1.0 (0-2) % Neut # (Auto) 17722 H (7203-4247) /uL Lymph # (Auto) 1400 (5430-2406) /uL [place] # (Auto) 400 (0-900) /uL Eos # (Auto) 0 (0-450) /uL Baso # (Auto) 200 H (0-100) /uL Sodium 141 (137-145) mmol/L Potassium 4.7 (3.4-5.1) mmol/L Chloride 98 (98-107) mmol/L Carbon Dioxide 37 H (22-32) mmol/L BUN 28 H (9-20) mg/dL Creatinine 0.89 (0.66-1.25) mg/dL Estimated GFR > 60 (>60) mL/min BUN/Creatinine Ratio 31.5 H (6-22) Glucose 144 H (80-110) mg/dL Calcium 10.1 (8.4-10.2) mg/dL Magnesium 2.0 (1.6-2.3) mg/dL Total Bilirubin 0.3 (0.2-1.3) mg/dL AST 29 (17-59) IU/L ALT 21 (<50) IU/L Alkaline Phosphatase 64 (38-126) U/L Total Creatine Kinase 27 L (55-170) U/L CK-MB (CK-2) TNP CK-MB (CK-2) Rel Index TNP Troponin I < 0.012 (0.01-0.034) ng/mL Total Protein 7.7 (6.3-8.2) g/dL Albumin 3.9 (3.5-5.0) g/dL Globulin 3.8 (1.7-4.1) g/dL Albumin/Globulin Ratio 1.0 (1.0-2.8) Lipase 283 (23-300) U/L SARS-CoV-2 (PCR) Negative (Negative) Imaging Data Chest x-ray: Radiologist's Impresson: IMPRESSION:? ? No acute cardiopulmonary process demonstrated radiographically. ? COPD and emphysema.? ? Areas of scarring and scattered tree-in-bud nodularity and acute nodular consolidation seen on the comparison CT chest have plain radiographic correlate.? ? Dictated by: Neymar Schmidt M.D. on 03/10/2022 at 15:41 ? ? Approved by: Neymar Schmidt M.D. on 03/10/2022 at 15:42 ? ECG Data Interpretation: EKG obtained at 3:11 p.m.. Sinus tachycardia at 112 beats per minute. No other abnormality seen. MDM Narrative Medical decision making narrative: No acute process is identified. Tachycardia is sinus on the EKG. His tachycardia has gradually resolved. Laboratory data is reassuring. Elevated white blood cell count it seems chronic based on previous levels and given the ongoing prednisone. I am reluctant to start beta-paulette empirically. Dr. Thurman will make sure that outpatient follow-up is appropriate and timely. The patient's symptoms have resolved so I do not think further investigations required at this moment. Discharge Plan Departure Patient Disposition: Home Clinical Impression: Tachycardia, COPD (chronic obstructive pulmonary disease) Activity Restrictions/Additional Instructions: No dangerous cause for your fast heart rate is discovered here today. The EKG that we did shows a normally conducted rhythm. There are number of possibilities but I think the main reason you feel so bad when her heart is going fast is because of your underlying severe lung disease. I discussed the case with Dr. Oliva's partner Dr. Thurman who agrees to facilitate prompt outpatient follow-up. He says if you have not heard from their office by Thursday, you should call to check on appointment availability. I would expect that they will see within the next week or so. In the meantime, if you have recurrent symptoms do your best to relax and breathe easy. If the symptoms persist for more than 15 minutes or so you should probably make your way to the emergency department for further evaluation. Prescriptions: No Action albuterol sulfate [Ventolin HFA] 90 mcg/actuation HFA aerosol inhaler See Rx Instructions .ROUTE .COMPLEX Qty: 18 3RF Dose Instruction: INHALE 1 - 2 PUFFS EVERY 4 HOURS NEEDED FOR SHORTNESS OF BREATH OR WHEEZING Rx Instructions: INHALE 1 - 2 PUFFS EVERY 4 HOURS NEEDED FOR SHORTNESS OF BREATH OR WHEEZING (DME) Disabled Parking Permit Qty: 1 0RF Rx Instructions: Patient qualifies for permanent disabled parking permit. Dulera 200-5 mcg/actuation HFA aerosol inhaler See Rx Instructions .ROUTE .COMPLEX Qty: 13 6RF Dose Instruction: INHALE 2 PUFFS BY MOUTH TWICE DAILY Rx Instructions: INHALE 2 PUFFS BY MOUTH TWICE DAILY benzonatate 100 mg capsule 100 mg PO BID-TID Qty: 270 1RF levalbuterol HCl 1.25 mg/3 mL solution for nebulization 1.25 mg INHALATION Q6HR PRN (Reason: Wheezing) Qty: 75 5RF ipratropium-albuterol 0.5 mg-3 mg(2.5 mg base)/3 mL solution for nebulization 3 ml INHALATION BID PRN (Reason: wheezing/ SOB) Qty: 90 11RF nystatin 100,000 unit/mL suspension 5 ml PO QID Qty: 200 1RF prednisone 20 mg tablet See Rx Instructions .ROUTE .COMPLEX Qty: 90 1RF Dose Instruction: TAKE 1 TABLET (20 MG) BY MOUTH DAILY FOR COPD Rx Instructions: TAKE 1 TABLET (20 MG) BY MOUTH DAILY FOR COPD ondansetron 4 mg tablet,disintegrating 4 mg PO BID-TID PRN (Reason: Nausea) montelukast 10 mg tablet 10 mg PO QPM Qty: 90 3RF Spiriva with HandiHaler 18 mcg capsule, w/inhalation device 18 mcg inhalation DAILY Qty: 90 3RF acetaminophen 325 mg Tablet 1 dose PO PRN PRN (Reason: pain) magnesium hydroxide 400 mg/5 mL Suspension 1 dose PO PRN PRN (Reason: Indigestion) Label Comments: patient states uses often Mylanta ibuprofen 200 mg Tablet 1 dose PO PRN PRN (Reason: pain) aspirin 81 mg Tablet 81 mg PO DAILY nitroglycerin 0.3 mg tablet, sublingual 0.3 mg sublingual Q5-15M PRN (Reason: chest pain) Qty: 20 0RF Rx Instructions: do not exceed 3 doses per episode ipratropium-albuterol 0.5 mg-3 mg(2.5 mg base)/3 mL solution for nebulization 3 ml INHALATION Q4-6H PRN (Reason: shortness of breath or wheezing) Qty: 90 0RF clonazepam 0.5 mg tablet 0.5 mg PO BID PRN (Reason: Anxiety) simvastatin 20 mg tablet 20 mg PO DAILY lisinopril 10 mg tablet 10 mg PO DAILY Referrals: Saqib Oliva, [Primary Care Provider] -
== END 2022-03-10 17:59 | disposition home or self-care (01) ==
PROVIDERS: Emergency Provider Family Medicine Addiction Medicine; PCP Family Medicine
DX: R00.0 Tachycardia, unspecified (principal); J44.9 Chronic obstructive pulmonary disease, unspecified; R06.82 Tachypnea, not elsewhere classified; Z20.822 Contact with and (suspected) exposure to COVID-19
CPT/HCPCS: 36415; 71045; 80053; 82550; 83690; 83735; 84484; 85025; 87635; 93005; 99285; C9803

== ENCOUNTER 2022-08-19 22:26 | Emergency (ER) | payer MEDICARE, MEDICAID, SELFPAY ==
[2022-01-28 02:15] VITALS: BMI 22.1
[2022-08-19 22:28] VITALS: BP 121/67; PULSE 111; O2SAT 98
[2022-08-19 22:30] VITALS: BP 137/71; PULSE 112; O2SAT 99
[2022-08-19 22:32] VITALS: BP 121/67; PULSE 102; RESP 24; TEMP 36.4; O2SAT 98; BMI 23.6
--- NOTE | 2022-08-19 22:34 | DI.RAD.S_ITS ---
PROCEDURE: XR CHEST 1V INDICATIONS: SOB, cough, fever TECHNIQUE: One view of the chest was acquired. COMPARISON: [facility], CR, XR CHEST 1V, 03/10/2022, 15:21. FINDINGS: Surgical changes and devices: None. Lungs and pleura: There is hyperinflation of the lungs with flattening of the hemidiaphragms compatible with COPD. There are a few indistinct clustered nodular opacities in the right mid lung. No pleural effusions or pneumothorax. Mediastinum: Mediastinal contours appear normal. Heart size is normal. Bones and chest wall: No suspicious bony lesions. Overlying soft tissues appear unremarkable. IMPRESSION: 1. Clustered indistinct nodular opacities in the right mid lung are nonspecific but may reflect an atypical pneumonia. 2. Findings compatible with COPD. Dictated by: Pernell Adams M.D. on 08/19/2022 at 23:47 Approved by: Pernell Adams M.D. on 08/19/2022 at 23:49
[2022-08-19] MEDS: SODIUM CHLORIDE 0.9% 1,000 ML 1000 ML IV (22:45)
[2022-08-19] MEDS: methylPREDNISolone 125 MG/2 ML VIAL IV (22:45)
[2022-08-19 22:52] LABS: D Dimer 227 ng/ml (<500)
[2022-08-19 22:54] LABS: Lactate (Lactic Acid) 2.2 mmol/L (0.7-2.1)
[2022-08-19 22:55] LABS: Add Manual Diff / Slide Review NO; Alanine Aminotransferase 22 IU/L (<50); Albumin 4.2 g/dL (3.5-5.0); Albumin Globulin Ratio 1.2 (1.0-2.8); Alkaline Phosphatase 68 U/L (38-126); Aspartate Aminotransferase 22 IU/L (17-59); BUN Creatinine Ratio 26.8 (6-22); Basophils Absolute Auto 0 /uL (0-100); Basophils Percent Auto 0.2 % (0-2); Bilirubin Total 0.4 mg/dL (0.2-1.3); Blood Urea Nitrogen 26 mg/dL (9-20); Calcium 9.7 mg/dL (8.4-10.2); Carbon Dioxide 33 mmol/L (22-32); Chloride 100 mmol/L (98-107); Eosinophils Absolute Auto 0 /uL (0-450); Eosinophils Percent Auto 0.1 % (2-4); Estimated Glomerular Filt Rate > 60 mL/min (>60); Globulin 3.6 g/dL (1.7-4.1); Glucose 139 mg/dL (80-110); HEMOLYSIS < 15 (0-50); Hemoglobin 11.9 g/dL (13.5-17.5); Lymphocytes Absolute Auto 1300 /uL (1100-4500); Lymphocytes Percent Auto 5.8 % (25-40); Mean Corpuscular HGB Conc 31.3 % (30-36); Mean Corpuscular Hemoglobin 24.6 PG (26-34); Mean Corpuscular Volume 78.5 fL (80-100); Monocytes Absolute Auto 600 /uL (0-900); Monocytes Percent Auto 2.9 % (3-14); Neutrophils Absolute Auto 20400 /uL (1500-7000); Platelet Count 240 X10^3/uL (150-400); Potassium 4.7 mmol/L (3.4-5.1); Red Blood Cell Count 4.84 X10^6/uL (4.5-5.9); Red Cell Distribution Width 19.7 % (11.6-14.8); Sodium 142 mmol/L (137-145); Total Protein 7.8 g/dL (6.3-8.2); White Blood Cell Count 22.4 X10^3/uL (4.5-11.0)
[2022-08-19 22:56] LABS: Creatine Kinase 33 U/L (55-170); Lipase 190 U/L (23-300)
[2022-08-19 23:00] VITALS: PULSE 100; RESP 23; O2SAT 97
[2022-08-19 23:07] LABS: NT-proBNP (BNP-Adult 18+) 71 pg/mL (<125); Troponin I < 0.012 ng/mL (0.01-0.034)
[2022-08-19 23:12] LABS: Procalcitonin 0.06 ng/mL (<0.5)
--- NOTE | 2022-08-19 23:26 | ED_ITS ---
HPI - SOB/Dyspnea General Chief Complaint: Shortness of Breath/Dyspnea Stated Complaint: SOB, COPD Time Seen by Provider: 08/19/22 22:31 Source: patient Mode of arrival: EMS History of Present Illness HPI Narrative: 61-year-old male smoker with history of COPD on home oxygen at 2 L, hypertension, GERD presents by EMS for evaluation of increasing shortness of breath and cough over the past 2-3 days. He states that at baseline is pulse ox is in the mid to low 90s and states it has been unchanged. He denies any fever or chills. He denies runny nose or sore throat but has had increasing wheezing, shortness of breath and cough, occasionally there is sputum production but he denies any hemoptysis. He denies nausea, vomiting or diarrhea. He has no chest pain. He denies abdominal pain, diarrhea, constipation or urinary complaints. He is currently taking prednisone 20 mg and has been at this level for at least the past few months. Denies recent travel, injury or hospitalization. He has been using his breathing treatments at home with increasing frequency, EMS arrived and found decreased breath sounds bilaterally and gave a DuoNeb, patient does feel slightly improved already on arrival Related Data Home Medications Medication Instructions Recorded Confirmed ondansetron 4 mg disintegrating 4 mg PO BID-TID PRN Nausea 12/03/18 05/15/22 tablet acetaminophen 325 mg tablet 1 dose PO PRN PRN pain 12/29/18 05/15/22 ibuprofen 200 mg tablet 1 dose PO PRN PRN pain 12/29/18 05/15/22 magnesium hydroxide 400 mg/5 mL 1 dose PO PRN PRN Indigestion 12/29/18 05/15/22 oral suspension aspirin 81 mg tablet 81 mg PO DAILY 12/30/20 05/15/22 lisinopril 10 mg tablet 10 mg PO DAILY 01/28/22 05/15/22 Previous Rx's Medication Instructions Recorded albuterol sulfate 90 mcg/actuation See Rx Instructions .Route 05/04/19 aerosol inhaler (Ventolin HFA) .COMPLEX #18 grams Disabled Parking Permit #1 ea 06/24/19 nitroglycerin 0.3 mg sublingual 0.3 mg sublingual Q5-15M PRN chest 01/23/21 tablet pain #20 tabs montelukast 10 mg tablet 10 mg PO QPM #90 tabs 08/12/21 tiotropium bromide 18 mcg capsule 18 mcg inhalation DAILY #90 08/12/21 with inhalation device (Spiriva inhalations with HandiHaler) benzonatate 100 mg capsule 100 mg PO BID-TID #270 caps 11/28/21 ipratropium 0.5 mg-albuterol 3 mg 3 ml inhalation BID PRN wheezing/ 01/24/22 (2.5 mg base)/3 mL nebulization SOB #90 mL soln ipratropium 0.5 mg-albuterol 3 mg 3 ml inhalation Q4-6H PRN 01/26/22 (2.5 mg base)/3 mL nebulization shortness of breath or wheezing soln #90 mL nystatin 100,000 unit/mL oral 5 ml PO QID #200 mL 02/25/22 suspension prednisone 20 mg tablet See Rx Instructions .Route 02/25/22 .COMPLEX #90 tabs mometasone-formoterol HFA 200 See Rx Instructions .Route 05/21/22 mcg-5 mcg/actuation aerosol .COMPLEX #13 grams inhaler (Dulera) simvastatin 20 mg tablet 20 mg PO DAILY #90 tabs 07/17/22 clonazepam 0.5 mg tablet 0.5 mg PO BID #60 tabs 07/19/22 levalbuterol HCl 1.25 mg/3 mL 1.25 mg (3 mL) inhalation Q6HR PRN 08/14/22 solution for nebulization Wheezing #120 vials azithromycin 250 mg tablet See Rx Instructions PO .COMPLEX #6 08/20/22 tabs Allergies Allergy/AdvReac Type Severity Reaction Status Date / Time cinnamon [CINNAMON] Allergy Severe RESP Verified 05/15/22 14:40 PROBLEMS AND SWELLING Sulfa (Sulfonamide Allergy Severe anaphylacti Verified 05/15/22 14:40 Antibiotics) c [SULFA (SULFONAMIDE ANTIBIOTICS)] fluticasone [FLUTICASONE] Allergy Intermediate FEELS Verified 05/15/22 14:40 LIKE FIRE IN THE LUNGS trimethoprim [TRIMETHOPRIM] Allergy Unknown Patient Verified 05/15/22 14:40 can't remember beclomethasone [From QVAR] AdvReac Severe tachycardia Verified 05/15/22 14:40 budesonide [From SYMBICORT] AdvReac Severe tachycardia Verified 05/15/22 14:40 formoterol [From SYMBICORT] AdvReac Severe tachycardia Verified 05/15/22 14:40 codeine [CODEINE] AdvReac Intermediate violent Verified 05/15/22 14:40 doxycycline [DOXYCYCLINE] AdvReac Mild N/V Verified 05/15/22 14:40 Review of Systems Review of Systems Narrative: GENERAL: See HPI HEENT: See HPI RESPIRATORY: See HPI CARDIOVASCULAR: Denies chest pain, palpitations, orthopnea, edema, GASTROINTESTINAL: Denies nausea, vomiting, abdominal pain, diarrhea, constipation, melena. : Denies dysuria, frequency, incontinence, hematuria, urinary retention. MUSCULOSKELETAL: denies weakness, joint pain, or bony pain SKIN: Denies rash, skin lesions, or other NEUROLOGIC: Denies weakness, headache, numbness, change in speech, confusion, seizures, incoordination. PSYCHIATRIC: No concerning psychosocial issues. 12 point review of systems is negative except for those stated above Patient History Medical History Anxiety (~2015) Asthma (Unknown) COPD (chronic obstructive pulmonary disease) (~2013) GERD with stricture Hematuria (~2014) HTN (hypertension) Hyperlipidemia (~2015) Insomnia (~2015) Palpitations TIA (transient ischemic attack) (05/2014) Surgical History No pertinent past surgical history Family History Mother Age: 83 Hypertension Sister Age: 66 Cancer Social History household members: none Smoking Status: Current some day smoker Tobacco: How many years used: 47 quit status: considering quitting second hand exposure: No alcohol intake: former substance use type: does not use Smoking Status: Current some day smoker tobacco type: cigarettes alcohol intake frequency: 0-2 drinks per day Substance Use Type: marijuana Exam Narrative Exam Narrative: GENERAL: [61] year old patient appears stated age. Well-developed patient, in mild distress. Non-rebreather in place HEAD: Atraumatic. Normocephalic. EYES: Pupils equal round and reactive. Extraocular motions intact. No scleral icterus. No injection or drainage. ENT: Nose without bleeding, purulent drainage. Throat without erythema, tonsillar hypertrophy or exudate. Airway patent. NECK: Trachea midline. Non tender CARDIOVASCULAR: Regular rate and rhythm without murmurs, gallops, or rubs. RESPIRATORY: Decreased breath sounds bilaterally with prolonged expiratory phase and faint and expiratory wheeze, he does have some increased work of breathing GASTROINTESTINAL: Abdomen soft, non-tender, nondistended. EXTREMITIES: No edema or joint tenderness. BACK: Nontender without deformity or crepitance. No flank tenderness. NEURO: AOx3. SKIN: No rash or erythema of visible areas Initial Vital Signs Initial Vital Signs: Vital Signs Pulse Rate 111 H 08/19/22 22:28 Blood Pressure 121/67 08/19/22 22:28 Pulse Oximetry 98 08/19/22 22:28 Scores CURB-65 Confusion: No BUN >19mg/dL (>7mmol/L): Yes Respiratory rate greater or equal to 30: No SBP <90mmHg or DBP less or equal to 60mmHg: No Age 65 or Older: No CURB-65 Total: 1 Score 0-1 Outpatient care, Score 2 Inpt vs. Obs, Score 3 or over Inpt admit with ICU for score of 4-5 Course Orders Ordered: ED Orders 08/19/22 21:55 Complete Blood Count AUTO DIFF Stat Comprehensive Metabolic Panel Stat D Dimer Stat Lactate (Lactic Acid) Stat Lipase Stat Magnesium Stat NT-proBNP (BNP-Adult 18+) Stat Procalcitonin Stat Troponin & CK Cardiac Panel Stat 08/19/22 22:30 Covid-19 + FLU A/B + RSV - PCR Stat Sputum Culture Stat 08/19/22 22:34 Chest [XR chest 1V] Stat 08/19/22 23:09 Blood Culture Stat Discontinued Medications Azithromycin (Azithromycin 250 Mg Tablet) 500 mg PO NOW ONE Stop: 08/20/22 00:13 Last Admin: 08/20/22 00:36 Dose: 500 mg Sodium Chloride (Normal Saline 0.9%) 1,000 mls @ 1,000 mls/hr IV BOLUS ONE Stop: 08/19/22 23:31 Last Admin: 08/19/22 22:45 Dose: 1,000 mls/hr Documented By: BS Methylprednisolone (Methylprednisolone 125 Mg/2 Ml Vial) 125 mg IV NOW ONE Stop: 08/19/22 22:33 Last Admin: 08/19/22 22:45 Dose: 125 mg Documented By: BS Reevaluation(s) Reevaluation #1: Patient has significant improvement after above-stated therapies Vital Signs Vital signs: Vital Signs - 8 hr 08/19/22 22:32 08/19/22 22:28 08/19/22 22:28 Temperature 97.5 F L Pulse Rate 102 H 111 H Respiratory Rate 24 Blood Pressure 121/67 121/67 Pulse Oximetry 98 98 Oxygen Delivery Method Room Air Oxygen Flow Rate 08/19/22 22:30 08/19/22 22:30 08/19/22 23:00 Temperature Pulse Rate 112 H 100 H Respiratory Rate 23 Blood Pressure 137/71 Pulse Oximetry 99 97 Oxygen Delivery Method Oxygen Flow Rate 08/19/22 23:30 08/19/22 23:30 08/20/22 00:00 Temperature Pulse Rate 93 H Respiratory Rate Blood Pressure 109/59 L 116/65 Pulse Oximetry 96 Oxygen Delivery Method Oxygen Flow Rate 08/20/22 00:00 08/20/22 00:37 Temperature 97.8 F Pulse Rate 90 89 Respiratory Rate 26 H 18 Blood Pressure 116/65 Pulse Oximetry 96 98 Oxygen Delivery Method Nasal Cannula Nasal Cannula Oxygen Flow Rate 2 2 MDM - SOB/Dyspnea Lab Data 08/19/22 21:55 08/19/22 21:55 Labs: Lab Results 08/19/22 08/19/22 08/19/22 Range/Units 21:55 21:55 21:55 WBC 22.4 H (4.5-11.0) X10^3/uL RBC 4.84 (4.5-5.9) X10^6/uL Hgb 11.9 L (13.5-17.5) g/dL Hct 38.0 L (41-53) % MCV 78.5 L (80-100) fL MCH 24.6 L (26-34) PG MCHC 31.3 (30-36) % RDW 19.7 H (11.6-14.8) % Plt Count 240 (150-400) X10^3/uL Neut % (Auto) 91.0 H (50-75) % Lymph % (Auto) 5.8 L (25-40) % Cloud % (Auto) 2.9 L (3-14) % Eos % (Auto) 0.1 L (2-4) % Baso % (Auto) 0.2 (0-2) % Neut # (Auto) 97336 H (5725-4583) /uL Lymph # (Auto) 1300 (9440-1202) /uL Cloud # (Auto) 600 (0-900) /uL Eos # (Auto) 0 (0-450) /uL Baso # (Auto) 0 (0-100) /uL D-Dimer (<500) ng/ml Sodium 142 (137-145) mmol/L Potassium 4.7 (3.4-5.1) mmol/L Chloride 100 (98-107) mmol/L Carbon Dioxide 33 H (22-32) mmol/L BUN 26 H (9-20) mg/dL Creatinine 0.97 (0.66-1.25) mg/dL Estimated GFR > 60 (>60) mL/min BUN/Creatinine Ratio 26.8 H (6-22) Glucose 139 H (80-110) mg/dL Lactate (0.7-2.1) mmol/L Calcium 9.7 (8.4-10.2) mg/dL Magnesium 2.0 (1.6-2.3) mg/dL Total Bilirubin 0.4 (0.2-1.3) mg/dL AST 22 (17-59) IU/L ALT 22 (<50) IU/L Alkaline Phosphatase 68 (38-126) U/L Total Creatine Kinase 33 L (55-170) U/L CK-MB (CK-2) TNP CK-MB (CK-2) Rel Index TNP Troponin I < 0.012 (0.01-0.034) ng/mL NT-Pro-B Natriuret Pep 71 (<125) pg/mL Total Protein 7.8 (6.3-8.2) g/dL Albumin 4.2 (3.5-5.0) g/dL Globulin 3.6 (1.7-4.1) g/dL Albumin/Globulin Ratio 1.2 (1.0-2.8) Lipase 190 (23-300) U/L Procalcitonin 0.06 (<0.5) ng/mL SARS-CoV-2 (PCR) (Negative) Influenza A (RT-PCR) (NEGATIVE) Influenza B (RT-PCR) (NEGATIVE) RSV (PCR) (Negative) 08/19/22 08/19/22 08/19/22 Range/Units 21:55 21:55 22:30 WBC (4.5-11.0) X10^3/uL RBC (4.5-5.9) X10^6/uL Hgb (13.5-17.5) g/dL Hct (41-53) % MCV (80-100) fL MCH (26-34) PG MCHC (30-36) % RDW (11.6-14.8) % Plt Count (150-400) X10^3/uL Neut % (Auto) (50-75) % Lymph % (Auto) (25-40) % Cloud % (Auto) (3-14) % Eos % (Auto) (2-4) % Baso % (Auto) (0-2) % Neut # (Auto) (8614-4645) /uL Lymph # (Auto) (8224-2703) /uL Cloud # (Auto) (0-900) /uL Eos # (Auto) (0-450) /uL Baso # (Auto) (0-100) /uL D-Dimer 227 (<500) ng/ml Sodium (137-145) mmol/L Potassium (3.4-5.1) mmol/L Chloride (98-107) mmol/L Carbon Dioxide (22-32) mmol/L BUN (9-20) mg/dL Creatinine (0.66-1.25) mg/dL Estimated GFR (>60) mL/min BUN/Creatinine Ratio (6-22) Glucose (80-110) mg/dL Lactate 2.2 H (0.7-2.1) mmol/L Calcium (8.4-10.2) mg/dL Magnesium (1.6-2.3) mg/dL Total Bilirubin (0.2-1.3) mg/dL AST (17-59) IU/L ALT (<50) IU/L Alkaline Phosphatase (38-126) U/L Total Creatine Kinase (55-170) U/L CK-MB (CK-2) CK-MB (CK-2) Rel Index Troponin I (0.01-0.034) ng/mL NT-Pro-B Natriuret Pep (<125) pg/mL Total Protein (6.3-8.2) g/dL Albumin (3.5-5.0) g/dL Globulin (1.7-4.1) g/dL Albumin/Globulin Ratio (1.0-2.8) Lipase (23-300) U/L Procalcitonin (<0.5) ng/mL SARS-CoV-2 (PCR) Negative (Negative) Influenza A (RT-PCR) Flu a negative (NEGATIVE) Influenza B (RT-PCR) Flu b negative (NEGATIVE) RSV (PCR) Negative (Negative) Imaging Data Chest x-ray: Radiologist's Impression: [address] [address] XRay Report Signed Patient: Mak Rose MR#: [id number] : 1960 Acct:[id number] Age/Sex: 61 / M Date of Service: 08/19/22 Loc: ED Accession Number: [id number] ?? Procedure: XR chest 1V Ordering Provider: Randall Sierra D.O. PROCEDURE:? XR CHEST 1V ? INDICATIONS:? SOB, cough, fever ? TECHNIQUE:? One view of the chest was acquired.? ? COMPARISON:? [facility], CR, XR CHEST 1V, 03/10/2022, 15:21. ? FINDINGS:? ? Surgical changes and devices:? None.? ? Lungs and pleura:? There is hyperinflation of the lungs with flattening of the hemidiaphragms compatible with COPD.? There are a few indistinct clustered nodular opacities in the right mid lung.? No pleural effusions or pneumothorax.? ? Mediastinum:? Mediastinal contours appear normal.? Heart size is normal.? ? Bones and chest wall:? No suspicious bony lesions.? Overlying soft tissues appear unremarkable.? ? IMPRESSION:? ? 1. Clustered indistinct nodular opacities in the right mid lung are nonspecific but may reflect an atypical pneumonia. ? 2. Findings compatible with COPD.? ? ? Dictated by: Pernell Adams M.D. on 08/19/2022 at 23:47 ? ? MDM Narrative Medical decision making narrative: CC: 61-year-old smoker with COPD presents with increasing shortness of breath and cough Complicating co-morbidities: Age, COPD, home O2 Data collected from: Patient, EMS Medical records reviewed: Multiple prior ED visits Differential considered, but not limited to: COPD, pneumonia, flu, COVID, RSV, pulmonary embolism versus other Exam documented above, pertinent findings include: Increased work of breathing with prolonged expiratory phase Lab Test results independently reviewed as above. Pertinent findings: Elevation in white blood cell count is chronic for him, likely as much due to steroid use as underlying infection, H&H stable, D-dimer below age corrected cutoff to pursue pulmonary embolism. He does have a slightly elevated lactate, thought more likely related to increased albuterol use than sepsis given lack of evidence of tissue hypoperfusion or hypoxemia. Procalcitonin negative. Resp swab negative Independently reviewed EKG as above Imaging studies independently reviewed: Chest x-ray with nonspecific abnormality possibly related to atypical pneumonia Scores Used: CURB 65 score 1 suggesting outpatient treatment is appropriate Treatments: Solumedrol, bronchodilators, Azithromycin Re-evaluations: Significant improvement after above-stated therapies Discussion: 61-year-old male with COPD on home oxygen presents increased work of breathing and multiple diagnoses considered (please see above, he has tremendous improvement with above-stated therapies and is requesting discharge. We did have extensive discussion at the bedside and in the end sure the opinion that this is appropriate. He is given 1st dose of azithromycin here and encouraged to increase prednisone for each of the next 5 days. He is given extensive return precautions and questions answered to his apparent satisfaction Disposition: see below, along with detailed discharge instructions that have been reviewed with patient as well as indications for ED re-evaluation and additional outpatient follow up Discharge Plan Departure Patient Disposition: Home Clinical Impression: Acute exacerbation of chronic obstructive pulmonary disease, Atypical pneumonia Instructions: Chronic Obstructive Pulmonary Disease, DI for Atypical Pneumonia Activity Restrictions/Additional Instructions: *You have been diagnosed with [acute exacerbation of COPD and atypical pneumonia] *What to do: *Please continue to take your regular medications as directed. [x ] New medication prescriptions sent to your pharmacy: [ Car] [x ] Please increase your Prednisone from 20mg daily to 40mg daily for each of the next 5 days starting on 08/21/22 [ ] No new medications given *Please follow up with your primary care provider in 2-3 days, call for an appointment. Let them know you were seen in the Emergency Department and that we ask that you be seen in follow up. We will electronically transmit a record of today's note if your PCP is in our system *Return to Emergency Department if you should have any new, worsening or concerning symptoms, such as [fever greater than 101 F, shaking chills, worsening pain, persistent vomiting or other bothersome symptoms] Prescriptions: New azithromycin 250 mg tablet See Rx Instructions .ROUTE .COMPLEX Qty: 6 0RF Rx Instructions: For 250 mg dose pack: take 500 mg today (day 1), then 250 mg for 4 days (days 2-5) No Action albuterol sulfate [Ventolin HFA] 90 mcg/actuation HFA aerosol inhaler See Rx Instructions .ROUTE .COMPLEX Qty: 18 3RF Dose Instruction: INHALE 1 - 2 PUFFS EVERY 4 HOURS NEEDED FOR SHORTNESS OF BREATH OR WHEEZING Rx Instructions: INHALE 1 - 2 PUFFS EVERY 4 HOURS NEEDED FOR SHORTNESS OF BREATH OR WHEEZING (DME) Disabled Parking Permit Qty: 1 0RF Rx Instructions: Patient qualifies for permanent disabled parking permit. benzonatate 100 mg capsule 100 mg PO BID-TID Qty: 270 1RF ipratropium-albuterol 0.5 mg-3 mg(2.5 mg base)/3 mL solution for nebulization 3 ml INHALATION BID PRN (Reason: wheezing/ SOB) Qty: 90 11RF nystatin 100,000 unit/mL suspension 5 ml PO QID Qty: 200 1RF prednisone 20 mg tablet See Rx Instructions .ROUTE .COMPLEX Qty: 90 1RF Dose Instruction: TAKE 1 TABLET (20 MG) BY MOUTH DAILY FOR COPD Rx Instructions: TAKE 1 TABLET (20 MG) BY MOUTH DAILY FOR COPD Dulera 200-5 mcg/actuation HFA aerosol inhaler See Rx Instructions .ROUTE .COMPLEX Qty: 13 6RF Dose Instruction: INHALE 2 PUFFS BY MOUTH TWICE DAILY Rx Instructions: INHALE 2 PUFFS BY MOUTH TWICE DAILY simvastatin 20 mg tablet 20 mg PO DAILY Qty: 90 1RF clonazepam 0.5 mg tablet 0.5 mg PO BID Qty: 60 1RF levalbuterol HCl 1.25 mg/3 mL solution for nebulization 1.25 mg INHALATION Q6HR PRN (Reason: Wheezing) Qty: 120 5RF ondansetron 4 mg tablet,disintegrating 4 mg PO BID-TID PRN (Reason: Nausea) montelukast 10 mg tablet 10 mg PO QPM Qty: 90 3RF Spiriva with HandiHaler 18 mcg capsule, w/inhalation device 18 mcg inhalation DAILY Qty: 90 3RF acetaminophen 325 mg Tablet 1 dose PO PRN PRN (Reason: pain) magnesium hydroxide 400 mg/5 mL Suspension 1 dose PO PRN PRN (Reason: Indigestion) Label Comments: patient states uses often Mylanta ibuprofen 200 mg Tablet 1 dose PO PRN PRN (Reason: pain) aspirin 81 mg Tablet 81 mg PO DAILY nitroglycerin 0.3 mg tablet, sublingual 0.3 mg sublingual Q5-15M PRN (Reason: chest pain) Qty: 20 0RF Rx Instructions: do not exceed 3 doses per episode ipratropium-albuterol 0.5 mg-3 mg(2.5 mg base)/3 mL solution for nebulization 3 ml INHALATION Q4-6H PRN (Reason: shortness of breath or wheezing) Qty: 90 0RF lisinopril 10 mg tablet 10 mg PO DAILY Referrals: Saqib Oliva DO [Primary Care Provider] - Stand Alone Forms: Patient Portal/API
[2022-08-19 23:30] VITALS: BP 109/59; PULSE 93; O2SAT 96
[2022-08-19 23:33] LABS: Influenza A - CEPHEID Flu A NEGATIVE (NEGATIVE); Influenza B - CEPHEID Flu B NEGATIVE (NEGATIVE); Respiratory Syncytial Virus Negative (Negative)
[2022-08-19 23:34] LABS: COVID-19 CEPHEID 4-PLEX PCR Negative (Negative)
[2022-08-20] VITALS: BP 116/65; PULSE 90; RESP 26; O2SAT 96
[2022-08-20] MEDS: AZITHROMYCIN 250 MG TABLET 500 MG PO (00:36)
[2022-08-20 00:37] VITALS: BP 116/65; PULSE 89; RESP 18; TEMP 36.6; O2SAT 98
[2022-08-20 00:43] LABS: Reflexed Lactate in 2 Hours Y
== END 2022-08-20 00:41 | disposition home or self-care (01) ==
PROVIDERS: Emergency Provider Emergency Medicine; PCP Family Medicine
DX: J44.1 Chronic obstructive pulmonary disease with (acute) exacerbation (principal); J18.9 Pneumonia, unspecified organism; Z79.899 Other long term (current) drug therapy; Z20.822 Contact with and (suspected) exposure to COVID-19
CPT/HCPCS: 0241U; 36415; 71045; 80053; 82550; 83605; 83690; 83735; 83880; 84145; 84484; 85025; 85379; 87040; 87070; 87077; 87205; 96361; 96374; 99284; J2930

== ENCOUNTER 2022-11-18 15:22 | Observation (INO) | payer MEDICARE, MEDICAID, SELFPAY ==
[2022-01-28 02:15] VITALS: BMI 22.1
[2022-11-18] VITALS (13 sets, daily range): BP systolic 99–127; BP diastolic 49–73; PULSE 86–108; RESP 20–28; TEMP 36.8–36.9; O2SAT 93–99; BMI 23.6
--- NOTE | 2022-11-18 15:36 | DI.RAD.S_ITS ---
PROCEDURE: XR CHEST 1V INDICATIONS: Shortness of breath TECHNIQUE: One view of the chest was acquired. COMPARISON: [facility], CR, XR CHEST 1V, 08/19/2022, 22:37. FINDINGS: Surgical changes and devices: None. Lungs and pleura: Left perihilar opacity is present, new since the prior examination, measuring roughly 35 mm. No pleural effusions or pneumothorax. Mediastinum: Mediastinal contours appear normal. Heart size is normal. Bones and chest wall: No suspicious bony lesions. Overlying soft tissues appear unremarkable. IMPRESSION: 1. Left perihilar opacity which could indicate focal pneumonia. Continued plain film surveillance is recommended to ensure resolution, and to exclude underlying or central malignancy. Dictated by: Dana Duarte M.D. on 11/18/2022 at 16:17 Approved by: Dana Duarte M.D. on 11/18/2022 at 16:18
[2022-11-18] MEDS: ALBUTEROL/IPRATROPIUM 3 ML AMPUL INH ×2 (15:39→23:15)
--- NOTE | 2022-11-18 15:39 | ED.SOB ---
HPI - SOB/Dyspnea General Chief Complaint: Shortness of Breath/Dyspnea Stated Complaint: asthma/emphysema exacerbation Time Seen by Provider: 11/18/22 15:27 Source: patient and EMS Mode of arrival: EMS History of Present Illness HPI Narrative: Patient is a 61-year-old male history of COPD on 1-2 L of oxygen at home, hypertension, GERD presents today with increasing shortness of breath. He had taper down his prednisone however over last week or so he is had increasing shortness of breath and productive cough. He is now on days 3 of 40 mg of prednisone he also had azithromycin at home she started taking as well. He reports he still has thick yellow sputum. No fever or chills. He took nebulizer home no significant relief. EMS gave him a breathing treatment which seemed to help him a lot. He is still having some mild conversational dyspnea. He has been on azithromycin for about 3 days as well Related Data Home Medications Medication Instructions Recorded Confirmed ondansetron 4 mg disintegrating 4 mg PO BID-TID PRN Nausea 12/03/18 05/15/22 tablet acetaminophen 325 mg tablet 1 dose PO PRN PRN pain 12/29/18 05/15/22 ibuprofen 200 mg tablet 1 dose PO PRN PRN pain 12/29/18 05/15/22 magnesium hydroxide 400 mg/5 mL 1 dose PO PRN PRN Indigestion 12/29/18 05/15/22 oral suspension aspirin 81 mg tablet 81 mg PO DAILY 12/30/20 05/15/22 Previous Rx's Medication Instructions Recorded albuterol sulfate 90 mcg/actuation See Rx Instructions .Route 05/04/19 aerosol inhaler (Ventolin HFA) .COMPLEX #18 grams Disabled Parking Permit #1 ea 06/24/19 nitroglycerin 0.3 mg sublingual 0.3 mg sublingual Q5-15M PRN chest 01/23/21 tablet pain #20 tabs tiotropium bromide 18 mcg capsule 18 mcg inhalation DAILY #90 08/12/21 with inhalation device (Spiriva inhalations with HandiHaler) ipratropium 0.5 mg-albuterol 3 mg 3 ml inhalation BID PRN wheezing/ 01/24/22 (2.5 mg base)/3 mL nebulization SOB #90 mL soln ipratropium 0.5 mg-albuterol 3 mg 3 ml inhalation Q4-6H PRN 01/26/22 (2.5 mg base)/3 mL nebulization shortness of breath or wheezing soln #90 mL nystatin 100,000 unit/mL oral 5 ml PO QID #200 mL 02/25/22 suspension mometasone-formoterol HFA 200 See Rx Instructions .Route 05/21/22 mcg-5 mcg/actuation aerosol .COMPLEX #13 grams inhaler (Dulera) simvastatin 20 mg tablet 20 mg PO DAILY #90 tabs 07/17/22 clonazepam 0.5 mg tablet 0.5 mg PO BID #60 tabs 07/19/22 levalbuterol HCl 1.25 mg/3 mL 1.25 mg (3 mL) inhalation Q6HR PRN 08/14/22 solution for nebulization Wheezing #120 vials azithromycin 250 mg tablet See Rx Instructions PO .COMPLEX #6 08/20/22 tabs montelukast 10 mg tablet 10 mg PO QPM #90 tabs 09/05/22 prednisone 20 mg tablet See Rx Instructions .Route 09/11/22 .COMPLEX #90 tabs benzonatate 100 mg capsule 100 mg PO BID-TID #270 caps 10/02/22 lisinopril 10 mg tablet See Rx Instructions .Route 10/20/22 .COMPLEX #90 tabs Allergies Allergy/AdvReac Type Severity Reaction Status Date / Time cinnamon [CINNAMON] Allergy Severe RESP Verified 11/18/22 15:40 PROBLEMS AND SWELLING Sulfa (Sulfonamide Allergy Severe anaphylacti Verified 11/18/22 15:40 Antibiotics) c [SULFA (SULFONAMIDE ANTIBIOTICS)] fluticasone [FLUTICASONE] Allergy Intermediate FEELS Verified 11/18/22 15:40 LIKE FIRE IN THE LUNGS trimethoprim [TRIMETHOPRIM] Allergy Unknown Patient Verified 11/18/22 15:40 can't remember codeine [CODEINE] AdvReac Intermediate violent Verified 11/18/22 15:40 doxycycline [DOXYCYCLINE] AdvReac Mild N/V Verified 11/18/22 15:40 dextromethorphan AdvReac Verified 11/18/22 15:41 fentanyl AdvReac Verified 11/18/22 15:41 Review of Systems Review of Systems ROS Unobtainable: All systems reviewed & are unremarkable except as noted in HPI and below Patient History Medical History Anxiety (~2015) Asthma (Unknown) COPD (chronic obstructive pulmonary disease) (~2013) GERD with stricture Hematuria (~2014) HTN (hypertension) Hyperlipidemia (~2015) Insomnia (~2015) Palpitations TIA (transient ischemic attack) (05/2014) Surgical History No pertinent past surgical history Family History Mother Age: 84 Hypertension Sister Age: 67 Cancer Social History household members: none Smoking Status: Current some day smoker Tobacco: How many years used: 47 quit status: considering quitting second hand exposure: No alcohol intake: former substance use type: does not use Smoking Status: Current some day smoker tobacco type: cigarettes alcohol intake frequency: 0-2 drinks per day Substance Use Type: does not use Exam Initial Vital Signs Initial Vital Signs: Vital Signs Temperature 98.4 F 11/18/22 15:26 Pulse Rate 106 H 11/18/22 15:26 Respiratory Rate 28 H 11/18/22 15:26 Blood Pressure 117/62 11/18/22 15:26 Pulse Oximetry 97 11/18/22 15:26 Oxygen Delivery Method Nasal Cannula 11/18/22 15:26 Oxygen Flow Rate 2 11/18/22 15:26 GENERAL: Well-appearing, well-nourished and in no acute distress. HEENT: Head atraumatic,EOMI, pupils reactive, face symmetric, moist mucous membranes CARDIOVASCULAR: Regular rate and rhythm without murmurs, rubs or gallops. RESPIRATORY: wheezing bilaterally mild conversational dyspnea ABDOMEN: Soft, nontender. Normoactive bowel sounds all 4 quadrants. No guarding or rebound. EXTREMITIES: Normal range of motion, no clubbing or edema. Neurovascularly intact NEUROLOGICAL: Alert and oriented x4.Normal gait and speech. SKIN: Warm, dry, no laceration, no petechiae, no rashes or lesions. Course Orders Ordered: ED Orders 11/18/22 15:25 Complete Blood Count AUTO DIFF Stat Comprehensive Metabolic Panel Stat Lactate (Lactic Acid) Stat NT-proBNP (BNP-Adult 18+) Stat Prothrombin Time INR Stat Troponin I Stat 11/18/22 15:30 Sputum Culture Stat 11/18/22 15:36 XR chest 1V Stat EKG-12 Lead Stat Measure peak expiratory flow ONCE RT Consult Eval and Treat NOW 11/18/22 15:46 COVID19 -Nasal RAPID Stat 11/18/22 16:48 Blood Culture Stat Discontinued Medications Albuterol/Ipratropium (Albuterol/Ipratropium 3 Ml Ampul) 3 ml INH NOW ONE Stop: 11/18/22 15:38 Last Admin: 11/18/22 15:39 Dose: 3 ml Documented By: MARIA R Sodium Chloride (Normal Saline 0.9%) 1,000 mls @ 1,000 mls/hr IV BOLUS ONE Stop: 11/18/22 17:21 Last Infusion: 11/18/22 18:33 Dose: 0 mls/hr Documented By: Admin: 11/18/22 16:51 Dose: 1,000 mls/hr Documented By: GLENN Ceftriaxone Sodium 2,000 mg/ (Sodium Chloride) 100 mls @ 200 mls/hr IV NOW ONE Stop: 11/18/22 16:23 Last Infusion: 11/18/22 17:33 Dose: 0 mls/hr Documented By: Admin: 11/18/22 16:58 Dose: 200 mls/hr Documented By: GLENN Azithromycin 500 mg/ Dextrose 250 mls @ 250 mls/hr IV NOW ONE Stop: 11/18/22 16:23 Last Infusion: 11/18/22 18:42 Dose: 0 mls/hr Documented By: Admin: 11/18/22 17:35 Dose: 250 mls/hr Documented By: GLENN Methylprednisolone (Methylprednisolone 125 Mg/2 Ml Vial) 125 mg IV NOW ONE Stop: 11/18/22 16:24 Last Admin: 11/18/22 16:47 Dose: 125 mg Documented By: GLENN Vital Signs Vital signs: Vital Signs - 8 hr 11/18/22 15:26 11/18/22 15:40 11/18/22 15:27 Temperature 98.4 F Pulse Rate 106 H 102 H 107 H Respiratory Rate 28 H 26 H Blood Pressure 117/62 Pulse Oximetry 97 97 97 Oxygen Delivery Method Nasal Cannula Nasal Cannula Nasal Cannula Oxygen Flow Rate 2 2 2 Fraction of Inspired Oxygen 28 11/18/22 15:29 11/18/22 15:29 11/18/22 15:30 Temperature Pulse Rate 102 H Respiratory Rate Blood Pressure 117/62 115/64 Pulse Oximetry 96 Oxygen Delivery Method Nasal Cannula Oxygen Flow Rate 2 Fraction of Inspired Oxygen 11/18/22 15:30 11/18/22 16:00 11/18/22 16:00 Temperature Pulse Rate 105 H 108 H Respiratory Rate Blood Pressure 99/61 Pulse Oximetry 96 96 Oxygen Delivery Method Nasal Cannula Nasal Cannula Oxygen Flow Rate 2 2 Fraction of Inspired Oxygen 11/18/22 16:30 11/18/22 16:30 11/18/22 17:00 Temperature Pulse Rate 99 H Respiratory Rate 22 Blood Pressure 100/58 L 99/66 Pulse Oximetry 96 Oxygen Delivery Method Nasal Cannula Oxygen Flow Rate 2 Fraction of Inspired Oxygen 11/18/22 17:00 11/18/22 17:30 11/18/22 17:30 Temperature Pulse Rate 96 H 86 Respiratory Rate Blood Pressure 114/60 Pulse Oximetry 97 99 Oxygen Delivery Method Oxygen Flow Rate Fraction of Inspired Oxygen MDM - SOB/Dyspnea Lab Data 11/18/22 15:25 11/18/22 15:25 Labs: Lab Results 11/18/22 11/18/22 11/18/22 Range/Units 15:25 15:25 15:25 WBC 18.5 H (4.5-11.0) X10^3/uL RBC 4.17 L (4.5-5.9) X10^6/uL Hgb 10.3 L (13.5-17.5) g/dL Hct 32.9 L (41-53) % MCV 78.7 L (80-100) fL MCH 24.6 L (26-34) PG MCHC 31.2 (30-36) % RDW 15.9 H (11.6-14.8) % Plt Count 257 (150-400) X10^3/uL Neut % (Auto) 94.9 H (50-75) % Lymph % (Auto) 4.0 L (25-40) % [place] % (Auto) 0.8 L (3-14) % Eos % (Auto) 0.1 L (2-4) % Baso % (Auto) 0.2 (0-2) % Neut # (Auto) 08788 H (8445-0803) /uL Lymph # (Auto) 700 L (1013-8246) /uL [place] # (Auto) 100 (0-900) /uL Eos # (Auto) 0 (0-450) /uL Baso # (Auto) 0 (0-100) /uL PT 11.3 (10.1-12.7) SECONDS INR 1.0 (0.9-1.3) Sodium 140 (137-145) mmol/L Potassium 4.4 (3.4-5.1) mmol/L Chloride 100 (98-107) mmol/L Carbon Dioxide 34 H (22-32) mmol/L BUN 23 H (9-20) mg/dL Creatinine 0.87 (0.66-1.25) mg/dL Estimated GFR > 60 (>60) mL/min BUN/Creatinine Ratio 26.4 H (6-22) Glucose 141 H (80-110) mg/dL Lactate (0.7-2.1) mmol/L Calcium 9.3 (8.4-10.2) mg/dL Total Bilirubin 0.1 L (0.2-1.3) mg/dL AST 23 (17-59) IU/L ALT 21 (<50) IU/L Alkaline Phosphatase 66 (38-126) U/L Troponin I < 0.012 (0.01-0.034) ng/mL NT-Pro-B Natriuret Pep 104 (<125) pg/mL Total Protein 7.1 (6.3-8.2) g/dL Albumin 3.8 (3.5-5.0) g/dL Globulin 3.3 (1.7-4.1) g/dL Albumin/Globulin Ratio 1.2 (1.0-2.8) SARS-CoV-2 (PCR) (Negative) 11/18/22 11/18/22 11/18/22 Range/Units 15:25 15:46 18:27 WBC (4.5-11.0) X10^3/uL RBC (4.5-5.9) X10^6/uL Hgb (13.5-17.5) g/dL Hct (41-53) % MCV (80-100) fL MCH (26-34) PG MCHC (30-36) % RDW (11.6-14.8) % Plt Count (150-400) X10^3/uL Neut % (Auto) (50-75) % Lymph % (Auto) (25-40) % [place] % (Auto) (3-14) % Eos % (Auto) (2-4) % Baso % (Auto) (0-2) % Neut # (Auto) (1673-9506) /uL Lymph # (Auto) (7090-4554) /uL [place] # (Auto) (0-900) /uL Eos # (Auto) (0-450) /uL Baso # (Auto) (0-100) /uL PT (10.1-12.7) SECONDS INR (0.9-1.3) Sodium (137-145) mmol/L Potassium (3.4-5.1) mmol/L Chloride (98-107) mmol/L Carbon Dioxide (22-32) mmol/L BUN (9-20) mg/dL Creatinine (0.66-1.25) mg/dL Estimated GFR (>60) mL/min BUN/Creatinine Ratio (6-22) Glucose (80-110) mg/dL Lactate 2.6 H 2.5 H (0.7-2.1) mmol/L Calcium (8.4-10.2) mg/dL Total Bilirubin (0.2-1.3) mg/dL AST (17-59) IU/L ALT (<50) IU/L Alkaline Phosphatase (38-126) U/L Troponin I (0.01-0.034) ng/mL NT-Pro-B Natriuret Pep (<125) pg/mL Total Protein (6.3-8.2) g/dL Albumin (3.5-5.0) g/dL Globulin (1.7-4.1) g/dL Albumin/Globulin Ratio (1.0-2.8) SARS-CoV-2 (PCR) Negative (Negative) Imaging Data Chest x-ray: Radiologist's Impression: PROCEDURE:? XR CHEST 1V ? INDICATIONS:? Shortness of breath ? TECHNIQUE:? One view of the chest was acquired.? ? COMPARISON:? [facility], , XR CHEST 1V, 08/19/2022, 22:37. ? FINDINGS:? ? Surgical changes and devices:? None.? ? Lungs and pleura:? Left perihilar opacity is present, new since the prior examination, measuring roughly 35 mm. No pleural effusions or pneumothorax.? ? Mediastinum:? Mediastinal contours appear normal.? Heart size is normal.? ? Bones and chest wall:? No suspicious bony lesions.? Overlying soft tissues appear unremarkable.? ? IMPRESSION:? 1. Left perihilar opacity which could indicate focal pneumonia. Continued plain film surveillance is recommended to ensure resolution, and to exclude underlying or central malignancy.? ? ? Dictated by: Dana Duarte M.D. on 11/18/2022 at 16:17? ECG Data Interpretation: Normal sinus rhythm rate 102 HI interval 136 QRS [address] changes Q-waves noted in lead 3 only similar to previous MDM Narrative Medical decision making narrative: Patient is 61-year-old male with chronic COPD on home oxygen presenting today with COPD exacerbation. He is titrated up his prednisone started azithromycin and still having difficulty breathing. He received DuoNeb treatment with EMS and here in the ED overall doing better. Blood pressure is little bit soft continues to have map of 65 however systolic is 90-100. Concern for early sepsis he is given IV fluids. Lactate slightly elevated 2.6 leukocytosis of 18. He does have pretty persistently elevated leukocytosis previously it was 22.4 possible infection versus steroid. He is given IV fluids Rocephin and azithromycin for the pneumonia seen on his x-ray. Dr. Jamil updated on patient's symptoms test results kindly patient Discharge Plan Departure Patient Disposition: Admitted As Inpatient Clinical Impression: Pneumonia, Chronic obstructive pulmonary disease with (acute) exacerbation Admit Date/Time: 11/18/22 19:27 Admit Provider: Rajat Jamil
[2022-11-18 15:51] LABS: Add Manual Diff / Slide Review NO; Basophils Absolute Auto 0 /uL (0-100); Basophils Percent Auto 0.2 % (0-2); Eosinophils Absolute Auto 0 /uL (0-450); Eosinophils Percent Auto 0.1 % (2-4); Hematocrit 32.9 % (41-53); Hemoglobin 10.3 g/dL (13.5-17.5); Lymphocytes Absolute Auto 700 /uL (1100-4500); Mean Corpuscular HGB Conc 31.2 % (30-36); Mean Corpuscular Hemoglobin 24.6 PG (26-34); Mean Corpuscular Volume 78.7 fL (80-100); Monocytes Absolute Auto 100 /uL (0-900); Monocytes Percent Auto 0.8 % (3-14); Neutrophils Absolute Auto 17600 /uL (1500-7000); Neutrophils Percent Auto 94.9 % (50-75); Platelet Count 257 X10^3/uL (150-400); Red Blood Cell Count 4.17 X10^6/uL (4.5-5.9); Red Cell Distribution Width 15.9 % (11.6-14.8); White Blood Cell Count 18.5 X10^3/uL (4.5-11.0)
[2022-11-18 15:53] LABS: Prothrombin Time 11.3 SECONDS (10.1-12.7)
[2022-11-18 15:57] LABS: Lactate (Lactic Acid) 2.6 mmol/L (0.7-2.1)
[2022-11-18 16:02] LABS: Alanine Aminotransferase 21 IU/L (<50); Albumin 3.8 g/dL (3.5-5.0); Albumin Globulin Ratio 1.2 (1.0-2.8); Alkaline Phosphatase 66 U/L (38-126); Aspartate Aminotransferase 23 IU/L (17-59); BUN Creatinine Ratio 26.4 (6-22); Bilirubin Total 0.1 mg/dL (0.2-1.3); Blood Urea Nitrogen 23 mg/dL (9-20); Calcium 9.3 mg/dL (8.4-10.2); Carbon Dioxide 34 mmol/L (22-32); Chloride 100 mmol/L (98-107); Estimated Glomerular Filt Rate > 60 mL/min (>60); Globulin 3.3 g/dL (1.7-4.1); Glucose 141 mg/dL (80-110); HEMOLYSIS < 15 (0-50); Potassium 4.4 mmol/L (3.4-5.1); Sodium 140 mmol/L (137-145); Total Protein 7.1 g/dL (6.3-8.2)
[2022-11-18 16:13] LABS: NT-proBNP (BNP-Adult 18+) 104 pg/mL (<125); Troponin I < 0.012 ng/mL (0.01-0.034)
[2022-11-18 16:28] LABS: COVID19 -Nasal RAPID Negative (Negative)
[2022-11-18] MEDS: methylPREDNISolone 125 MG/2 ML VIAL IV (16:47)
[2022-11-18] MEDS: SODIUM CHLORIDE 0.9% 1,000 ML 1000 ML IV (16:51)
[2022-11-18] MEDS: cefTRIAXone 2,000 MG in SODIUM CHLORIDE 0.9% 100 ML 200 MG IV (16:58)
[2022-11-18] MEDS: AZITHROMYCIN 500 MG in DEXTROSE 5% IN WATER 250 ML 250 MG IV (17:35)
[2022-11-18 17:46] LABS: Reflexed Lactate in 2 Hours Y
[2022-11-18 18:48] LABS: Lactate 2HR (Lactic Acid Rflx) 2.5 mmol/L (0.7-2.1)
[2022-11-18] MEDS: HEPARIN 5,000 UNIT/ML VIAL 5000 UNIT SUBCUT (21:11)
[2022-11-18] MEDS: ALBUTEROL 2.5 MG/3 ML NEB (ADULT) INH (21:35)
--- NOTE | 2022-11-18 22:20 | P.HP_ITS ---
History of Present Illness History of Present Illness Date Patient Seen: 11/18/22 Time Patient Seen: 21:30 Chief complaint: asthma/emphysema exacerbation Narrative: Mr. Rose is a 61M with PMH COPD on O2 at home, steroid dependent who presents with cough and shortness of breath. He continues to smoke a few cigarettes daily. He recently was tapered down to 5mg prednisone daily. Four days ago he developed worsening shortness of breath, he developed a productive cough with thick yellow sputum. He has taken 40mg prednisone and also been on azithromycin for 3-4 days. No fevers/chills, one episode of chest pain four days ago that felt sharp. No lower extremity swelling. In the ED workup was done, vitals notable for afebrile, heart rate in the 100s, respiratory rate 20s, blood pressure 117/62, sats 97% on 2L. Labs reviewd by me and notable for WBC 18.5, hgb 10.3, creatinine 0.87. Lactate 2.6->2.5. COVID negative. Chest xray reviewed by me and shows left perihilar opacity. He was ordered for antibiotics, nebulizers and admitted for further treatment. [facility] Medical History Anxiety (~2015) Asthma (Unknown) COPD (chronic obstructive pulmonary disease) (~2013) GERD with stricture Hematuria (~2014) HTN (hypertension) Hyperlipidemia (~2015) Insomnia (~2015) Palpitations TIA (transient ischemic attack) (05/2014) Surgical History No pertinent past surgical history Family History Mother Age: 84 Hypertension Sister Age: 67 Cancer Social History household members: none Smoking Status: Current some day smoker Tobacco: How many years used: 47 quit status: considering quitting second hand exposure: No alcohol intake: former substance use type: does not use Meds Home Medications and Allergies Home Medications Medication Instructions Recorded Confirmed Type ondansetron 4 mg disintegrating 4 mg PO BID-TID PRN Nausea 12/03/18 05/15/22 History tablet acetaminophen 325 mg tablet 1 dose PO PRN PRN pain 12/29/18 05/15/22 History ibuprofen 200 mg tablet 1 dose PO PRN PRN pain 12/29/18 05/15/22 History magnesium hydroxide 400 mg/5 mL 1 dose PO PRN PRN Indigestion 12/29/18 05/15/22 History oral suspension albuterol sulfate 90 mcg/actuation See Rx Instructions .Route 05/04/19 05/15/22 Rx aerosol inhaler (Ventolin HFA) .COMPLEX #18 grams Disabled Parking Permit #1 ea 06/24/19 05/15/22 Rx aspirin 81 mg tablet 81 mg PO DAILY 12/30/20 11/18/22 History nitroglycerin 0.3 mg sublingual 0.3 mg sublingual Q5-15M PRN chest 01/23/21 11/18/22 Rx tablet pain #20 tabs tiotropium bromide 18 mcg capsule 18 mcg inhalation DAILY #90 08/12/21 05/15/22 Rx with inhalation device (Spiriva inhalations with HandiHaler) ipratropium 0.5 mg-albuterol 3 mg 3 ml inhalation BID PRN wheezing/ 01/24/22 05/15/22 Rx (2.5 mg base)/3 mL nebulization SOB #90 mL soln ipratropium 0.5 mg-albuterol 3 mg 3 ml inhalation Q4-6H PRN 01/26/22 05/15/22 Rx (2.5 mg base)/3 mL nebulization shortness of breath or wheezing soln #90 mL nystatin 100,000 unit/mL oral 5 ml PO QID #200 mL 02/25/22 11/18/22 Rx suspension mometasone-formoterol HFA 200 See Rx Instructions .Route 05/21/22 Rx mcg-5 mcg/actuation aerosol .COMPLEX #13 grams inhaler (Dulera) simvastatin 20 mg tablet 20 mg PO DAILY #90 tabs 07/17/22 11/18/22 Rx clonazepam 0.5 mg tablet 0.5 mg PO BID #60 tabs 07/19/22 11/18/22 Rx levalbuterol HCl 1.25 mg/3 mL 1.25 mg (3 mL) inhalation Q6HR PRN 08/14/22 Rx solution for nebulization Wheezing #120 vials azithromycin 250 mg tablet See Rx Instructions PO .COMPLEX #6 08/20/22 Rx tabs montelukast 10 mg tablet 10 mg PO QPM #90 tabs 09/05/22 11/18/22 Rx prednisone 20 mg tablet See Rx Instructions .Route 09/11/22 11/18/22 Rx .COMPLEX #90 tabs benzonatate 100 mg capsule 100 mg PO BID-TID #270 caps 10/02/22 11/18/22 Rx lisinopril 10 mg tablet See Rx Instructions .Route 10/20/22 11/18/22 Rx .COMPLEX #90 tabs Allergies Allergy/AdvReac Type Severity Reaction Status Date / Time cinnamon [CINNAMON] Allergy Severe RESP Verified 11/18/22 15:40 PROBLEMS AND SWELLING Sulfa (Sulfonamide Allergy Severe anaphylacti Verified 11/18/22 15:40 Antibiotics) c [SULFA (SULFONAMIDE ANTIBIOTICS)] fluticasone [FLUTICASONE] Allergy Intermediate FEELS Verified 11/18/22 15:40 LIKE FIRE IN THE LUNGS trimethoprim [TRIMETHOPRIM] Allergy Unknown Patient Verified 11/18/22 15:40 can't remember codeine [CODEINE] AdvReac Intermediate violent Verified 11/18/22 15:40 doxycycline [DOXYCYCLINE] AdvReac Mild N/V Verified 11/18/22 15:40 dextromethorphan AdvReac Verified 11/18/22 15:41 fentanyl AdvReac Verified 11/18/22 15:41 Review of Systems Review of Systems Narrative: 14 systems reviewed and negative aside from what is noted in HPI Exam Vital Signs (past 8 hours): - 11/18/22 15:26 11/18/22 15:40 11/18/22 15:27 Temperature 98.4 F Pulse Rate 106 H 102 H 107 H Respiratory Rate 28 H 26 H Blood Pressure 117/62 Pulse Oximetry 97 97 97 Oxygen Delivery Method Nasal Cannula Nasal Cannula Nasal Cannula Oxygen Flow Rate 2 2 2 Fraction of Inspired Oxygen 28 11/18/22 15:29 11/18/22 15:29 11/18/22 15:30 Temperature Pulse Rate 102 H Respiratory Rate Blood Pressure 117/62 115/64 Pulse Oximetry 96 Oxygen Delivery Method Nasal Cannula Oxygen Flow Rate 2 Fraction of Inspired Oxygen 11/18/22 15:30 11/18/22 16:00 11/18/22 16:00 Temperature Pulse Rate 105 H 108 H Respiratory Rate Blood Pressure 99/61 Pulse Oximetry 96 96 Oxygen Delivery Method Nasal Cannula Nasal Cannula Oxygen Flow Rate 2 2 Fraction of Inspired Oxygen 11/18/22 16:30 11/18/22 16:30 11/18/22 17:00 Temperature Pulse Rate 99 H Respiratory Rate 22 Blood Pressure 100/58 L 99/66 Pulse Oximetry 96 Oxygen Delivery Method Nasal Cannula Oxygen Flow Rate 2 Fraction of Inspired Oxygen 11/18/22 17:00 11/18/22 17:30 11/18/22 17:30 Temperature Pulse Rate 96 H 86 Respiratory Rate Blood Pressure 114/60 Pulse Oximetry 97 99 Oxygen Delivery Method Oxygen Flow Rate Fraction of Inspired Oxygen 11/18/22 18:00 11/18/22 18:00 11/18/22 18:30 Temperature Pulse Rate 88 Respiratory Rate Blood Pressure 112/64 120/69 Pulse Oximetry 99 Oxygen Delivery Method Oxygen Flow Rate Fraction of Inspired Oxygen 11/18/22 18:30 11/18/22 19:00 11/18/22 19:00 Temperature Pulse Rate 87 86 Respiratory Rate Blood Pressure 127/73 Pulse Oximetry 99 98 Oxygen Delivery Method Nasal Cannula Nasal Cannula Oxygen Flow Rate 2 2 Fraction of Inspired Oxygen 11/18/22 20:02 Temperature 98.3 F Pulse Rate 93 H Respiratory Rate 20 Blood Pressure 114/49 L Pulse Oximetry 93 Oxygen Delivery Method Oxygen Flow Rate 2 Fraction of Inspired Oxygen Fraction of Inspired Oxygen 28 SaO2/FiO2 Ratio 346 Oxygen Delivery Method Nasal Cannula Oxygen Flow Rate 2 Narrative Exam Narrative: GEN: mild respiratory distress, purse lip breathing HEENT: moist mucous membranes, PERRL NECK: trachea midline, no JVD PULM: wheezes bilaterally, speaking in near full sentences CV: regular rate and rhythm, no murmurs ABD: soft, notender, nondistended, no organomegaly EXT: warm and well perfused with no edema NEURO: awake, alert, oriented, no focal deficits Objective Labs 11/18/22 15:25 11/18/22 15:25 Labs: Laboratory Results - last 24 hr 11/18/22 11/18/22 11/18/22 15:25 15:25 15:25 WBC 18.5 H RBC 4.17 L Hgb 10.3 L Hct 32.9 L MCV 78.7 L MCH 24.6 L MCHC 31.2 RDW 15.9 H Plt Count 257 Neut % (Auto) 94.9 H Lymph % (Auto) 4.0 L [place] % (Auto) 0.8 L Eos % (Auto) 0.1 L Baso % (Auto) 0.2 Neut # (Auto) 15634 H Lymph # (Auto) 700 L [place] # (Auto) 100 Eos # (Auto) 0 Baso # (Auto) 0 PT 11.3 INR 1.0 Sodium 140 Potassium 4.4 Chloride 100 Carbon Dioxide 34 H BUN 23 H Creatinine 0.87 Estimated GFR > 60 BUN/Creatinine Ratio 26.4 H Glucose 141 H Lactate Calcium 9.3 Total Bilirubin 0.1 L AST 23 ALT 21 Alkaline Phosphatase 66 Troponin I < 0.012 NT-Pro-B Natriuret Pep 104 Total Protein 7.1 Albumin 3.8 Globulin 3.3 Albumin/Globulin Ratio 1.2 SARS-CoV-2 (PCR) 11/18/22 11/18/22 11/18/22 15:25 15:46 18:27 WBC RBC Hgb Hct MCV MCH MCHC RDW Plt Count Neut % (Auto) Lymph % (Auto) [place] % (Auto) Eos % (Auto) Baso % (Auto) Neut # (Auto) Lymph # (Auto) [place] # (Auto) Eos # (Auto) Baso # (Auto) PT INR Sodium Potassium Chloride Carbon Dioxide BUN Creatinine Estimated GFR BUN/Creatinine Ratio Glucose Lactate 2.6 H 2.5 H Calcium Total Bilirubin AST ALT Alkaline Phosphatase Troponin I NT-Pro-B Natriuret Pep Total Protein Albumin Globulin Albumin/Globulin Ratio SARS-CoV-2 (PCR) Negative Assessment & Plan Assessment & Plan narrative: 1. Acute on chronic hypoxemic respiratory failure secondary to acute steroid- dependent COPD exacerbation and pneumonia -continues to actively smoke -exacerbation likely worsened from pneumonia noted on chest xray -etiology could also be malignancy should follow up as outpatient to reimage perihilar opacity, but suspect this is pneumonia -continue ceftriaxone azithromycin -continue oxygen for goal >88% -ordered nebs, steroid with methylpred at 60mg IV q12 -on discharge will need prolonged steroid taper and will need to remain on steroids usp as he is steroid dependent -continue montelukast 2. Leukocytosis -suspect secondary to steroids -monitor closely 3. Hypertension -hold lisinopril for now 4. Hyperlipidemia -continue statin I have discussed plan and obtained history from patient. I have discussed plan of care with ED physician and bedside nurse. I have reviewed labs, imaging, and previous medical notes CODE: DNR/DNI Proxy: Antonina Hager, sister I have utilized all available resources to reconcile the patient's home medications Quality VTE Deep Vein Thrombosis/Pulmonary Embolism Present on Admission: No MIPS - Meds 'Current medications' to include all prescriptions, [id number] products, herbals, cannabis/cannabidiol products, and vitamin/mineral/dietary (nutritional) supplements. I have utilized all available resources to obtain, update, or review the patient?s current medications. [If Yes, STOP here]: Yes
[2022-11-19] VITALS (9 sets, daily range): BP systolic 119–140; BP diastolic 55–64; PULSE 91–109; RESP 16–19; TEMP 36.8–37.2; O2SAT 94–97
[2022-11-19] MEDS: ALBUTEROL 2.5 MG/3 ML NEB (ADULT) INH ×2 (02:49→11:32)
[2022-11-19] MEDS: guaiFENesin ER 600 MG TAB PO ×2 (04:06→20:16)
[2022-11-19] MEDS: clonazePAM 0.5 MG TABLET PO ×3 (04:06→23:59)
[2022-11-19 05:40] LABS: Add Manual Diff / Slide Review NO; Basophils Absolute Auto 0 /uL (0-100); Basophils Percent Auto 0.4 % (0-2); Eosinophils Absolute Auto 0 /uL (0-450); Hematocrit 28.8 % (41-53); Hemoglobin 9.2 g/dL (13.5-17.5); Lymphocytes Absolute Auto 700 /uL (1100-4500); Lymphocytes Percent Auto 7.1 % (25-40); Mean Corpuscular HGB Conc 31.9 % (30-36); Mean Corpuscular Hemoglobin 24.7 PG (26-34); Mean Corpuscular Volume 77.7 fL (80-100); Monocytes Absolute Auto 200 /uL (0-900); Monocytes Percent Auto 1.5 % (3-14); Neutrophils Absolute Auto 9500 /uL (1500-7000); Platelet Count 226 X10^3/uL (150-400); Red Blood Cell Count 3.71 X10^6/uL (4.5-5.9); Red Cell Distribution Width 15.7 % (11.6-14.8); White Blood Cell Count 10.4 X10^3/uL (4.5-11.0)
[2022-11-19 05:57] LABS: BUN Creatinine Ratio 28.1 (6-22); Blood Urea Nitrogen 27 mg/dL (9-20); Calcium 8.7 mg/dL (8.4-10.2); Carbon Dioxide 28 mmol/L (22-32); Chloride 102 mmol/L (98-107); Estimated Glomerular Filt Rate > 60 mL/min (>60); Glucose 159 mg/dL (80-110); HEMOLYSIS < 15 (0-50); Potassium 4.2 mmol/L (3.4-5.1); Sodium 136 mmol/L (137-145)
[2022-11-19] MEDS: ALBUTEROL/IPRATROPIUM 3 ML AMPUL INH ×5 (07:19→23:10)
--- NOTE | 2022-11-19 07:34 | PC.NURSE ---
Admit/NOC Shift Note- Patient arrived to room via stretcher from ER, slider board used to transfer patient to bed. Patient alert and oriented and able to make needs known to staff. Admit questions done, medications reviewed, physical assessment done, and skin check completed. Patient oriented to bed and bed controls, room, lights, phone, menu, and call lundberg/tv remote. Safety measures in place. call lundberg and pohoen within reach. will continue to monitor.
--- NOTE | 2022-11-19 08:19 | PM.PN.1 ---
Subjective Subjective Interval history: Patient requesting mucinex and tessalon perles. Says his breathing slowly improving. Exam Vital Signs (past 8 hours): - 11/19/22 04:00 11/19/22 07:20 Temperature 98.3 F Pulse Rate 103 H Respiratory Rate 18 Blood Pressure 140/63 Pulse Oximetry 96 97 Oxygen Delivery Method Nasal Cannula Oxygen Flow Rate 2 2 Fraction of Inspired Oxygen 28 SaO2/FiO2 Ratio 346 Oxygen Delivery Method Nasal Cannula Oxygen Flow Rate 2 Narrative Exam Narrative: GEN: no distress, purse lip breathing HEENT: moist mucous membranes, PERRL NECK: trachea midline, no JVD PULM: wheezes bilaterally improved, speaking in near full sentences CV: regular rate and rhythm, no murmurs ABD: soft, nontender, nondistended, no organomegaly EXT: warm and well perfused with no edema NEURO: awake, alert, oriented, no focal deficits Objective Labs 11/19/22 04:57 11/19/22 04:57 Labs: Laboratory Results - last 24 hr 11/18/22 11/18/22 11/18/22 15:25 15:25 15:25 WBC 18.5 H RBC 4.17 L Hgb 10.3 L Hct 32.9 L MCV 78.7 L MCH 24.6 L MCHC 31.2 RDW 15.9 H Plt Count 257 Neut % (Auto) 94.9 H Lymph % (Auto) 4.0 L [place] % (Auto) 0.8 L Eos % (Auto) 0.1 L Baso % (Auto) 0.2 Neut # (Auto) 05532 H Lymph # (Auto) 700 L [place] # (Auto) 100 Eos # (Auto) 0 Baso # (Auto) 0 PT 11.3 INR 1.0 Sodium 140 Potassium 4.4 Chloride 100 Carbon Dioxide 34 H BUN 23 H Creatinine 0.87 Estimated GFR > 60 BUN/Creatinine Ratio 26.4 H Glucose 141 H Lactate Calcium 9.3 Total Bilirubin 0.1 L AST 23 ALT 21 Alkaline Phosphatase 66 Troponin I < 0.012 NT-Pro-B Natriuret Pep 104 Total Protein 7.1 Albumin 3.8 Globulin 3.3 Albumin/Globulin Ratio 1.2 SARS-CoV-2 (PCR) 11/18/22 11/18/22 11/18/22 15:25 15:46 18:27 WBC RBC Hgb Hct MCV MCH MCHC RDW Plt Count Neut % (Auto) Lymph % (Auto) [place] % (Auto) Eos % (Auto) Baso % (Auto) Neut # (Auto) Lymph # (Auto) [place] # (Auto) Eos # (Auto) Baso # (Auto) PT INR Sodium Potassium Chloride Carbon Dioxide BUN Creatinine Estimated GFR BUN/Creatinine Ratio Glucose Lactate 2.6 H 2.5 H Calcium Total Bilirubin AST ALT Alkaline Phosphatase Troponin I NT-Pro-B Natriuret Pep Total Protein Albumin Globulin Albumin/Globulin Ratio SARS-CoV-2 (PCR) Negative 11/19/22 11/19/22 04:57 04:57 WBC 10.4 RBC 3.71 L Hgb 9.2 L Hct 28.8 L MCV 77.7 L MCH 24.7 L MCHC 31.9 RDW 15.7 H Plt Count 226 Neut % (Auto) 91.0 H Lymph % (Auto) 7.1 L [place] % (Auto) 1.5 L Eos % (Auto) 0.0 L Baso % (Auto) 0.4 Neut # (Auto) 9500 H Lymph # (Auto) 700 L [place] # (Auto) 200 Eos # (Auto) 0 Baso # (Auto) 0 PT INR Sodium 136 L Potassium 4.2 Chloride 102 Carbon Dioxide 28 BUN 27 H Creatinine 0.96 Estimated GFR > 60 BUN/Creatinine Ratio 28.1 H Glucose 159 H Lactate Calcium 8.7 Total Bilirubin AST ALT Alkaline Phosphatase Troponin I NT-Pro-B Natriuret Pep Total Protein Albumin Globulin Albumin/Globulin Ratio SARS-CoV-2 (PCR) [facility] Medical History Anxiety (~2015) Asthma (Unknown) COPD (chronic obstructive pulmonary disease) (~2013) GERD with stricture Hematuria (~2014) HTN (hypertension) Hyperlipidemia (~2015) Insomnia (~2015) Palpitations TIA (transient ischemic attack) (05/2014) Surgical History No pertinent past surgical history Family History Mother Age: 84 Hypertension Sister Age: 67 Cancer Social History household members: none Smoking Status: Current some day smoker Tobacco: How many years used: 47 quit status: considering quitting second hand exposure: No alcohol intake: former substance use type: does not use Assessment & Plan Assessment & Plan narrative: 1. 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 Leukocytosis, resolved -suspect secondary to steroids he received as outpatient -WBC resolved to normal 3. Hypertension -hold lisinopril for now 4. Hyperlipidemia -continue statin CODE: DNR/DNI Proxy: Antonina Hager, sister Dispo: Home in 2 days. Quality VTE Deep Vein Thrombosis/Pulmonary Embolism Present on Admission: No
[2022-11-19] MEDS: ASPIRIN 81 MG CHEW TAB PO (09:17)
[2022-11-19] MEDS: HEPARIN 5,000 UNIT/ML VIAL 5000 UNIT SUBCUT ×2 (09:20→20:17)
[2022-11-19] MEDS: methylPREDNISolone 125 MG/2 ML VIAL 60 MG IV ×2 (10:10→21:53)
--- NOTE | 2022-11-19 12:44 | CM.DANOTE ---
DCP: Brief assessment. Patient is 61 yr old male who has hx of COPD, uses home O2 at baseline 2 liters. Attempted to meet patient at bedside however patient not open to meeting with CM team at this time. CM team will attempt to follow up again tomorrow to determine if home health is needed at discharge. Plan at this time is home with family and private pay caregivers. Insurance: 1) Medicare 2) Medicaid PCP: Nicko Oliva Plan: DC home versus home with home health. Will continue to monitor for appropriate discharge needs and preferences. CM will follow up for home health options. GILDA Aguilar Discharge Planning/Care Management Advanced directive, confirm from FAMILY Start: 11/18/22 20:15 Freq: Q24H Status: Active Protocol: Document 11/18/22 20:15 AGW (Rec: 11/19/22 00:12 AGW [id number]) Advance Directive, confirm on record Time 23:00 Person contacted patient Copy received No CM Discharge Assessment Start: 11/19/22 12:39 Freq: Status: Active Protocol: Document 11/19/22 12:39 SL (Rec: 11/19/22 12:44 SL [id number]) Discharge Planning Assessment Assigned Associate Professor Of Physics GILDA Aguilar Advance Directives? Yes Advance Directives on File No History Provided By Medical Record Has Patient been admitted in last 30 No days? Prior Living Arrangements House Household Members none Comment attempted to meet patient at bedside however patient not open to meeting with CM team at this time. Is patient alert and oriented? Yes Community Services used prior to Oxygen Therapy admission: Comment Patient indicated that he has wheel-chair through [facility], but they are working on a wheel-chair evaluation. His oxygen is provided with [facility]. Patient/Family Preference Home with Home Health Comment attempted to meet patient at bedside however patient not open to meeting with CM team at this time. Will discuss Home Health Barriers to Discharge No Comment Patient has caregivers through [facility] that come in, and he also has family in the area. Discharge Plan Home Referrals Initiated Home Health Additional Comment Pending patient determination Whiteboard Updated in Patient Room with Yes name and ext. # of Associate Professor Of Physics Review Status In Process Next Review Type Continued Stay Review
[2022-11-19] MEDS: BENZONATATE 100 MG CAPSULE PO ×2 (14:30→21:53)
[2022-11-19] MEDS: ACETAMINOPHEN 325 MG TABLET 650 MG PO (16:17)
[2022-11-19] MEDS: MONTELUKAST 10 MG TABLET PO (17:12)
[2022-11-19] MEDS: cefTRIAXone 1,000 MG in SODIUM CHLORIDE 0.9% 100 ML 200 MG IV (18:49)
[2022-11-19] MEDS: AZITHROMYCIN 500 MG in DEXTROSE 5% IN WATER 250 ML 250 MG IV (19:33)
[2022-11-19] MEDS: NYSTATIN SUSP 500,000 UNIT/5 ML UDC 500000 UNIT PO (20:16)
[2022-11-19] MEDS: diphenhydrAMINE 25 MG TABLET PO (21:53)
[2022-11-19 23:43] LABS: Enterococcus faecalis Not Detected (Not Detect)
[2022-11-19 23:44] LABS: Acinetobacter calcoa-baumannii Not Detected (Not Detect); Bacteroides fragilis Not Detected (Not Detect); Candida albicans Not Detected (Not Detect); Enterobacter cloacae complex Not Detected (Not Detect); Enterobacterales Not Detected (Not Detect); Enterococcus faecium Not Detected (Not Detect); Haemophilus influenzae Not Detected (Not Detect); Klebsiella aerogenes Not Detected (Not Detect); Listeria monocytogenes Not Detected (Not Detect); Neisseria meningitidis Not Detected (Not Detect); Proteus species Not Detected (Not Detect); Pseudomonas aeruginosa Not Detected (Not Detect); Salmonella species Not Detected (Not Detect); Serratia marcescens Not Detected (Not Detect); Staphylococcus epidermidis Not Detected (Not Detect); Staphylococcus lugdunensis Not Detected (Not Detect); Staphylococcus species Not Detected (Not Detect); Stenotrophomonas maltophilia Not Detected (Not Detect); Streptococcus agalactiae (Gr B Not Detected (Not Detect); Streptococcus pneumonia Not Detected (Not Detect); Streptococcus pyogenes (Gr A) Not Detected (Not Detect); Streptococcus species Not Detected (Not Detect)
[2022-11-19 23:45] LABS: Candida auris Not Detected (Not Detect); Candida glabrata Not Detected (Not Detect); Candida krusei Not Detected (Not Detect); Candida parapsilosis Not Detected (Not Detect); Candida tropicalis Not Detected (Not Detect); Cryptococcus neoformans/gatti Not Detected (Not Detect)
[2022-11-20] VITALS (9 sets, daily range): BP systolic 109–133; BP diastolic 65–67; PULSE 82–117; RESP 17–26; TEMP 36.2–36.9; O2SAT 95–99
[2022-11-20] MEDS: ALBUTEROL/IPRATROPIUM 3 ML AMPUL INH ×5 (07:17→23:15)
[2022-11-20] MEDS: HEPARIN 5,000 UNIT/ML VIAL 5000 UNIT SUBCUT ×2 (08:03→20:53)
[2022-11-20] MEDS: BENZONATATE 100 MG CAPSULE PO ×3 (08:03→20:53)
[2022-11-20] MEDS: ASPIRIN 81 MG CHEW TAB PO (08:03)
[2022-11-20] MEDS: NYSTATIN SUSP 500,000 UNIT/5 ML UDC 500000 UNIT PO ×3 (08:03→20:53)
[2022-11-20] MEDS: methylPREDNISolone 125 MG/2 ML VIAL 60 MG IV ×2 (10:51→22:55)
--- NOTE | 2022-11-20 15:24 | CM.DPC ---
DCP Cont: Met with patient today. Introduced self and role. Asked him if he is interested in home health. Patient indicated, he is, went over Medicare Choice List of home health agencies, has no preferences, just wants to make sure that whoever comes to his home, does not try to arrange things, he has things they way he wants them. Confirmed that he does have caregivers that come in some times during the week, and has someone to pick him up when ready to discharge, most likely will be tomorrow, according to hospitalist. [facility] is on the calendar for today. Called Jarad at [facility] and let him know about the referral. Will complete face to face, and orders. Jarad has access to [id number], and can review. Will order P.T, O.T, and nursing. P: DCP to continue to follow. Plan is home with [facility], most likely tomorrow. Heather Mock RN/Automation Developer
[2022-11-20] MEDS: ACETAMINOPHEN 325 MG TABLET 650 MG PO (16:20)
[2022-11-20] MEDS: MONTELUKAST 10 MG TABLET PO (16:20)
[2022-11-20] MEDS: clonazePAM 0.5 MG TABLET PO (18:24)
--- NOTE | 2022-11-20 18:35 | P.PN_ITS ---
Subjective Subjective Interval history: Patient feeling better but still has lots of chest congestion. Feels like he needs one more day of treatment. Exam Vital Signs (past 8 hours): - 11/20/22 11:08 11/20/22 12:00 11/20/22 14:18 Pulse Rate 105 H 97 H 117 H Respiratory Rate 26 H 24 Blood Pressure 133/66 Pulse Oximetry 95 96 96 Oxygen Delivery Method Nasal Cannula Nasal Cannula Oxygen Flow Rate 2 2 2 Fraction of Inspired Oxygen 28 28 Fraction of Inspired Oxygen 28 SaO2/FiO2 Ratio 342 Oxygen Delivery Method Nasal Cannula Oxygen Flow Rate 2 Narrative Exam Narrative: GEN: no distress, purse lip breathing HEENT: moist mucous membranes, PERRL NECK: trachea midline, no JVD PULM: wheezes bilaterally improved, speaking in near full sentences CV: regular rate and rhythm, no murmurs ABD: soft, nontender, nondistended, no organomegaly EXT: warm and well perfused with no edema NEURO: awake, alert, oriented, no focal deficits Objective Labs 11/19/22 04:57 11/19/22 04:57 Labs: Laboratory Results - last 24 hr 11/19/22 16:45 A.calcoaceticus-baumannii cmplx PCR Not detected Bacteroides fragilis Not detected Kay albicans (PCR) Not detected Kay auris (PCR) Not detected C. glabrata (PCR) Not detected C. krusei (PCR) Not detected C. parapsilosis (PCR) Not detected C. tropicalis (PCR) Not detected C. neoform/gattii (PCR) Not detected Enterobacterales (PCR) Not detected E. cloacae complex PCR Not detected Enterococc faecalis PCR Not detected Enterococc faecium PCR Not detected E. coli (PCR) Not detected H. influenzae (PCR) Not detected Klebsiella aerogenes (PCR) Not detected Klebsiella oxytoca PCR Not detected Klebsiella pneumoniae Not detected List. monocytogenes PCR Not detected N. meningitidis (PCR) Not detected Proteus species (PCR) Not detected Salmonella spp. (PCR) Not detected Serratia marcescens PCR Not detected Staphylococcus sp PCR Not detected Staph aureus (PCR) Not detected Staph epidermidis (PCR) Not detected Staph lugdunensis PCR Not detected S. maltophilia (PCR) Not detected Streptococcus sp PCR Not detected Group A Strep (PCR) Not detected Strep agalactiae (PCR) Not detected Strep pneumoniae (PCR) Not detected P. aeruginosa (PCR) Not detected PFSH Medical History Anxiety (~2015) Asthma (Unknown) COPD (chronic obstructive pulmonary disease) (~2013) GERD with stricture Hematuria (~2014) HTN (hypertension) Hyperlipidemia (~2015) Insomnia (~2015) Palpitations TIA (transient ischemic attack) (05/2014) Surgical History No pertinent past surgical history Family History Mother Age: 84 Hypertension Sister Age: 67 Cancer Social History household members: none Smoking Status: Current some day smoker Tobacco: How many years used: 47 quit status: considering quitting second hand exposure: No alcohol intake: former substance use type: does not use Assessment & Plan Assessment & Plan narrative: 1. Acute on chronic hypoxemic respiratory failure secondary to acute steroid- dependent COPD exacerbation and pneumonia -continues to actively smoke -exacerbation likely worsened from pneumonia noted on chest xray -etiology could also be malignancy should follow up as outpatient to reimage perihilar opacity, but suspect this is pneumonia -continue ceftriaxone, azithromycin -continue oxygen for goal >88% -ordered nebs, steroid with methylpred at 60mg IV q12 -on discharge will need prolonged steroid taper and will need to remain on steroids [facility] as he is steroid dependent -continue montelukast -start mucinex and tessalon perles PRN 2. Leukocytosis, resolved -suspect secondary to steroids he received as outpatient -WBC resolved to normal 3. Hypertension -hold lisinopril for now 4. Hyperlipidemia -continue statin CODE: DNR/DNI Proxy: Antonina Hager, sister Dispo: Home on 11/21. Quality VTE Deep Vein Thrombosis/Pulmonary Embolism Present on Admission: No
[2022-11-20] MEDS: cefTRIAXone 1,000 MG in SODIUM CHLORIDE 0.9% 100 ML 200 MG IV (18:52)
[2022-11-20] MEDS: AZITHROMYCIN 500 MG in DEXTROSE 5% IN WATER 250 ML 250 MG IV (19:43)
[2022-11-20] MEDS: ATORVASTATIN 20 MG TABLET PO (20:53)
[2022-11-21 01:30] VITALS: BP 124/72; PULSE 99; RESP 19; TEMP 36.4; O2SAT 96
[2022-11-21] MEDS: guaiFENesin ER 600 MG TAB PO (04:39)
[2022-11-21] MEDS: ACETAMINOPHEN 325 MG TABLET 650 MG PO (04:43)
[2022-11-21] MEDS: clonazePAM 0.5 MG TABLET PO (04:43)
[2022-11-21 07:00] VITALS: O2SAT 97
[2022-11-21 08:24] VITALS: BP 120/70; PULSE 89; RESP 17; TEMP 36.6; O2SAT 97
--- NOTE | 2022-11-21 08:55 | P.DS_ITS ---
History of Present Illness History of Present Illness Date Patient Seen: 11/18/22 Time Patient Seen: 21:30 Chief complaint: asthma/emphysema exacerbation Narrative: Mr. Rose is a 61M with PMH COPD on O2 at home, steroid dependent who presents with cough and shortness of breath. He continues to smoke a few cigarettes daily. He recently was tapered down to 5mg prednisone daily. Four days ago he developed worsening shortness of breath, he developed a productive cough with thick yellow sputum. He has taken 40mg prednisone and also been on azithromycin for 3-4 days. No fevers/chills, one episode of chest pain four days ago that felt sharp. No lower extremity swelling. In the ED workup was done, vitals notable for afebrile, heart rate in the 100s, respiratory rate 20s, blood pressure 117/62, sats 97% on 2L. Labs reviewd by me and notable for WBC 18.5, hgb 10.3, creatinine 0.87. Lactate 2.6->2.5. COVID negative. Chest xray reviewed by me and shows left perihilar opacity. He was ordered for antibiotics, nebulizers and admitted for further treatment. Discharge Providers Provider Date of admission: 11/18/22 19:27 Discharge Date: 11/21/22 Primary care physician: Saqib Oliva DO Consults: 11/20/22 15:29 Consult to Home Health Routine Comment: Reason For Exam: Home Health RN, P.T, O.T. Discharge provider: Rajat Jamil DO Summary Hospital Course Discharge Diagnosis: 1. 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 Leukocytosis, resolved -suspect secondary to steroids he received as outpatient -WBC resolved to normal 3. Hypertension -hold lisinopril for now 4. Hyperlipidemia -continue statin Hospital Course: Admitted for COPD exac and PNA. Given IV solu-medrol, nebs and IV abx for CAP and improved. Discharged home on prednisone 60mg taper and augmentin for 2 more days. Time Spent with Patient Time spent: Greater than 30 minutes Exam Vital Signs (past 8 hours): - 11/21/22 01:30 11/21/22 08:24 Temperature 97.6 F 98 F Pulse Rate 99 H 89 Respiratory Rate 19 17 Blood Pressure 124/72 120/70 Pulse Oximetry 96 97 Oxygen Flow Rate 2 2 Fraction of Inspired Oxygen 28 SaO2/FiO2 Ratio 342 Oxygen Delivery Method Nasal Cannula Oxygen Flow Rate 2 Narrative Exam Narrative: GEN: no distress, purse lip breathing HEENT: moist mucous membranes, PERRL NECK: trachea midline, no JVD PULM: wheezes bilaterally have resolved, speaking in near full sentences CV: regular rate and rhythm, no murmurs ABD: soft, nontender, nondistended, no organomegaly EXT: warm and well perfused with no edema NEURO: awake, alert, oriented, no focal deficits Objective Labs 11/19/22 04:57 11/19/22 04:57 [facility] Medical History Anxiety (~2015) Asthma (Unknown) COPD (chronic obstructive pulmonary disease) (~2013) GERD with stricture Hematuria (~2014) HTN (hypertension) Hyperlipidemia (~2015) Insomnia (~2015) Palpitations TIA (transient ischemic attack) (05/2014) Surgical History No pertinent past surgical history Family History Mother Age: 84 Hypertension Sister Age: 67 Cancer Social History household members: none Smoking Status: Current some day smoker Tobacco: How many years used: 47 quit status: considering quitting second hand exposure: No alcohol intake: former substance use type: does not use Discharge Plan Discharge Plan Patient Disposition: Home Provider Discharge Comment: You were admitted for a COPD exacerbation and pneumonia. You received IV steroids, nebulizers and antibiotics and improved. You'll now need to finish a prednisone taper with a couple days of oral antibiotics at home. 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 ipratropium-albuterol 0.5 mg-3 mg(2.5 mg base)/3 mL solution for nebulization 3 ml INHALATION BID PRN (Reason: wheezing/ SOB) Qty: 90 11RF nystatin 100,000 unit/mL suspension 5 ml PO QID Qty: 200 1RF Dulera 200-5 mcg/actuation HFA aerosol inhaler See Rx Instructions .ROUTE .COMPLEX Qty: 13 6RF Dose Instruction: INHALE 2 PUFFS BY MOUTH TWICE DAILY Rx Instructions: INHALE 2 PUFFS BY MOUTH TWICE DAILY simvastatin 20 mg tablet 20 mg PO DAILY Qty: 90 1RF montelukast 10 mg tablet 10 mg PO QPM Qty: 90 3RF benzonatate 100 mg capsule 100 mg PO BID-TID Qty: 270 1RF Spiriva with HandiHaler 18 mcg capsule, w/inhalation device 18 mcg inhalation DAILY Qty: 90 3RF prednisone 20 mg tablet See Rx Instructions .ROUTE .COMPLEX Qty: 90 1RF Dose Instruction: TAKE 1 TABLET (20 MG) BY MOUTH DAILY FOR COPD Rx Instructions: TAKE 1 TABLET (20 MG) BY MOUTH DAILY FOR COPD acetaminophen 325 mg Tablet 1 dose PO PRN PRN (Reason: pain) magnesium hydroxide 400 mg/5 mL Suspension 1 dose PO PRN PRN (Reason: Indigestion) Patient Comments: patient states uses often Mylanta ibuprofen 200 mg Tablet 1 dose PO PRN PRN (Reason: pain) aspirin 81 mg Tablet 81 mg PO DAILY nitroglycerin 0.3 mg tablet, sublingual 0.3 mg sublingual Q5-15M PRN (Reason: chest pain) Qty: 20 0RF Rx Instructions: do not exceed 3 doses per episode ipratropium-albuterol 0.5 mg-3 mg(2.5 mg base)/3 mL solution for nebulization 3 ml INHALATION Q4-6H PRN (Reason: shortness of breath or wheezing) Qty: 90 0RF lisinopril 10 mg tablet 10 mg PO DAILY Rx Instructions: TAKE 1 TABLET BY MOUTH DAILY clonazepam 0.5 mg tablet 0.5 mg PO BID PRN (Reason: Anxiety) Follow up/Referrals: Saqib Oliva DO [Primary Care Provider] - Visit Report/Discharge Packet Stand Alone Forms: Patient Portal/API, Stroke Signs & Symptoms Discharge Data Primary Care Provider: Saqib Oliva Attending Provider: Rajat Jamil Admit Date/Time: 11/18/22 19:27 Quality VTE Deep Vein Thrombosis/Pulmonary Embolism Present on Admission: No
[2022-11-21] MEDS: ASPIRIN 81 MG CHEW TAB PO (09:08)
[2022-11-21] MEDS: NYSTATIN SUSP 500,000 UNIT/5 ML UDC 500000 UNIT PO (09:08)
[2022-11-21] MEDS: BENZONATATE 100 MG CAPSULE PO (09:08)
[2022-11-21] MEDS: HEPARIN 5,000 UNIT/ML VIAL 5000 UNIT SUBCUT (09:09)
[2022-11-21] MEDS: ALBUTEROL/IPRATROPIUM 3 ML AMPUL INH ×2 (09:14→12:57)
[2022-11-21 09:20] VITALS: PULSE 105; RESP 22; O2SAT 94
--- NOTE | 2022-11-21 10:53 | CM.DPC ---
Addendum entered by Heather Mock R.N. 11/21/22 12:15: Gave patient a [facility] brochure. He has friends in the room, is appreciative. Original Note: DCP Cont: Patient is to be discharged home today. Called Jarad at [facility] and updated him. Did also send DC Summary, orders and face to face already sent. Jarad will update his team. P: Patient is discharging home today with [facility]. Ordered RN, P.T, and O.T. Heather Mock RN/Jewel Stripper
[2022-11-21] MEDS: methylPREDNISolone 125 MG/2 ML VIAL 60 MG IV (11:30)
--- NOTE | 2022-11-21 14:11 | PC.NURSE ---
Addendum entered by Carolyn Beauchamp R.N. 11/21/22 14:14: Discharge time was 1350 Original Note: Pt is A&Ox4, on 2 LNC. He experiences SOB with talking, eating, and any activity at baseline. His cough seems to be improved since yesterday. He expresses wanting to discharge home. MD at bedside this a.m. evaluating patient and he is medically cleared for discharge home with his mother and sisters assistance. His family arrives shortly after lunch to escort him home. He verbalizes understanding of medications, and follow up with PCP on 12/01/22, He is assisted to w/ch and escorted to private vehicle with mother and sisters with all of his belongings and home portable 02 tank at approximately 1415 this afternoon.
== END 2022-11-21 13:50 | disposition home or self-care (01) ==
LOC: ED 18:38 → AC 19:38
PROVIDERS: Internal Medicine; Admitting Provider Student in an Organized Health Care Education/Training Program; Emergency Provider Emergency Medicine; PCP Family Medicine; Referring Provider Emergency Medicine; Visit Provider Student in an Organized Health Care Education/Training Program
DX: J96.21 Acute and chronic respiratory failure with hypoxia (principal); J18.9 Pneumonia, unspecified organism; J44.1 Chronic obstructive pulmonary disease with (acute) exacerbation; Z20.822 Contact with and (suspected) exposure to COVID-19; I10 Essential (primary) hypertension; E78.5 Hyperlipidemia, unspecified; D72.829 Elevated white blood cell count, unspecified
CPT/HCPCS: 36415; 71045; 80048; 80053; 83605; 83880; 84484; 85025; 85610; 87040; 87070; 87154; 87205; 87635; 93005; 94640; 94760; 96361; 96365; 96366; 96367; 96372; 96375; 96376; 99285; C9803; G0378; J0696; J1644; J2930; J7613

== ENCOUNTER 2022-12-18 07:36 | Emergency (ER) | payer MEDICARE, MEDICAID, SELFPAY ==
[2022-11-18 19:35] VITALS: BMI 23.6
[2022-12-18] VITALS (7 sets, daily range): BP systolic 102–123; BP diastolic 56–59; PULSE 87–96; RESP 18–26; TEMP 36.3; O2SAT 93–99; BMI 25.8
--- NOTE | 2022-12-18 07:37 | DI.RAD.S_ITS ---
PROCEDURE: XR CHEST 1V INDICATIONS: SOB, cough TECHNIQUE: One view of the chest was acquired. COMPARISON: [facility], CT, CT CHEST WO CON, 11/08/2020, 13:41. [facility], CR, XR CHEST 1V, 11/18/2022, 15:52. FINDINGS: Surgical changes and devices: None. Lungs and pleura: There are bilateral upper lobe infiltrates. Lungs are lucent compatible with emphysema. No pleural effusions or pneumothorax. Mediastinum: Mediastinal contours appear normal. Heart size is normal. Bones and chest wall: No suspicious bony lesions. Overlying soft tissues appear unremarkable. IMPRESSION: 1. Bilateral upper lobe pneumonia. 2. Emphysema. Dictated by: Eddi Gómez M.D. on 12/18/2022 at 8:14 Approved by: Eddi Gómez M.D. on 12/18/2022 at 8:15
--- NOTE | 2022-12-18 07:39 | ED.SOB ---
HPI - SOB/Dyspnea General Chief Complaint: Shortness of Breath/Dyspnea Stated Complaint: COPD exacerbation Time Seen by Provider: 12/18/22 07:38 History of Present Illness HPI Narrative: 62-year-old male smoker with history of COPD on home oxygen at 2 L, hypertension, GERD presents by EMS for evaluation of increasing shortness of breath and cough over the past 2-3 days. He feels a fullness in his R chest. He's on Prednisone 10mg PO daily. He presents by EMS this morning, as stated above secondary to increasing shortness of breath, work of breathing and cough which is now occasionally blood-tinged. He has some sharp and stabbing reproducible right-sided chest pain that is worse with deep breath, cough and palpation. He denies any fever or chills. Denies nausea or vomiting. Related Data Home Medications Medication Instructions Recorded Confirmed acetaminophen 325 mg tablet 1 dose PO PRN PRN pain 12/29/18 12/01/22 ibuprofen 200 mg tablet 1 dose PO PRN PRN pain 12/29/18 12/01/22 magnesium hydroxide 400 mg/5 mL 1 dose PO PRN PRN Indigestion 12/29/18 12/01/22 oral suspension aspirin 81 mg tablet 81 mg PO DAILY 12/30/20 12/01/22 lisinopril 10 mg tablet 10 mg PO DAILY 11/18/22 12/01/22 clonazepam 0.5 mg tablet 0.5 mg PO BID PRN Anxiety 11/19/22 12/01/22 Previous Rx's Medication Instructions Recorded albuterol sulfate 90 mcg/actuation See Rx Instructions .Route 05/04/19 aerosol inhaler (Ventolin HFA) .COMPLEX #18 grams Disabled Parking Permit #1 ea 06/24/19 nitroglycerin 0.3 mg sublingual 0.3 mg sublingual Q5-15M PRN chest 01/23/21 tablet pain #20 tabs tiotropium bromide 18 mcg capsule 18 mcg inhalation DAILY #90 08/12/21 with inhalation device (Spiriva inhalations with HandiHaler) ipratropium 0.5 mg-albuterol 3 mg 3 ml inhalation BID PRN wheezing/ 01/24/22 (2.5 mg base)/3 mL nebulization SOB #90 mL soln ipratropium 0.5 mg-albuterol 3 mg 3 ml inhalation Q4-6H PRN 01/26/22 (2.5 mg base)/3 mL nebulization shortness of breath or wheezing soln #90 mL nystatin 100,000 unit/mL oral 5 ml PO QID #200 mL 02/25/22 suspension mometasone-formoterol HFA 200 See Rx Instructions .Route 05/21/22 mcg-5 mcg/actuation aerosol .COMPLEX #13 grams inhaler (Dulera) simvastatin 20 mg tablet 20 mg PO DAILY #90 tabs 07/17/22 montelukast 10 mg tablet 10 mg PO QPM #90 tabs 09/05/22 prednisone 20 mg tablet See Rx Instructions .Route 09/11/22 .COMPLEX #90 tabs benzonatate 100 mg capsule 100 mg PO BID-TID #270 caps 10/02/22 prednisone 20 mg tablet See Rx Instructions .Route 11/21/22 .COMPLEX #13 tabs amoxicillin 875 mg-potassium 1 tab PO Q12H #20 tabs 12/18/22 clavulanate 125 mg tablet prednisone 10 mg tablet See Rx Instructions .Route 12/18/22 .COMPLEX #30 tabs Allergies Allergy/AdvReac Type Severity Reaction Status Date / Time cinnamon [CINNAMON] Allergy Severe RESP Verified 12/01/22 10:39 PROBLEMS AND SWELLING Sulfa (Sulfonamide Allergy Severe anaphylacti Verified 12/01/22 10:39 Antibiotics) c [SULFA (SULFONAMIDE ANTIBIOTICS)] fluticasone [FLUTICASONE] Allergy Intermediate FEELS Verified 12/01/22 10:39 LIKE FIRE IN THE LUNGS trimethoprim [TRIMETHOPRIM] Allergy Unknown Patient Verified 12/01/22 10:39 can't remember codeine [CODEINE] AdvReac Intermediate violent Verified 12/01/22 10:39 doxycycline [DOXYCYCLINE] AdvReac Mild N/V Verified 12/01/22 10:39 dextromethorphan AdvReac Verified 12/01/22 10:39 fentanyl AdvReac Verified 12/01/22 10:39 Review of Systems Review of Systems Narrative: GENERAL: See HPI HEENT: Denies sinus pain, ear pain, sore throat, difficulty swallowing, dizziness. RESPIRATORY: See HPI CARDIOVASCULAR: See HPI GASTROINTESTINAL: Denies nausea, vomiting, abdominal pain, diarrhea, constipation, melena. : Denies dysuria, frequency, incontinence, hematuria, urinary retention. MUSCULOSKELETAL: denies weakness, joint pain, or bony pain SKIN: Denies rash, skin lesions, or other NEUROLOGIC: Denies weakness, headache, numbness, change in speech, confusion, seizures, incoordination. PSYCHIATRIC: No concerning psychosocial issues. 12 point review of systems is negative except for those stated above Patient History Medical History Anxiety (~2015) Asthma (Unknown) COPD (chronic obstructive pulmonary disease) (~2013) GERD with stricture Hematuria (~2014) HTN (hypertension) Hyperlipidemia (~2015) Insomnia (~2015) Palpitations TIA (transient ischemic attack) (05/2014) Surgical History No pertinent past surgical history Family History Mother Age: 84 Hypertension Sister Age: 67 Cancer Social History household members: none Smoking Status: Current some day smoker Tobacco: How many years used: 47 quit status: considering quitting second hand exposure: No alcohol intake: former substance use type: does not use Smoking Status: Current some day smoker tobacco type: cigarettes alcohol intake frequency: 0-2 drinks per day Substance Use Type: does not use Exam Narrative Exam Narrative: GENERAL: [62] year old patient appears stated age. Well-developed patient, in mild distress. HEAD: Atraumatic. Normocephalic. EYES: Pupils equal round and reactive. Extraocular motions intact. No scleral icterus. No injection or drainage. ENT: Nose without bleeding, purulent drainage. Throat without erythema, tonsillar hypertrophy or exudate. Airway patent. NECK: Trachea midline. Non tender CARDIOVASCULAR: Regular rate and rhythm without murmurs, gallops, or rubs. RESPIRATORY: No significant increased work of breathing, decreased breath sounds throughout with prolonged expiratory phase GASTROINTESTINAL: Abdomen soft, non-tender, nondistended. EXTREMITIES: No edema or joint tenderness. BACK: Nontender without deformity or crepitance. No flank tenderness. NEURO: AOx3. SKIN: No rash or erythema of visible areas Initial Vital Signs Initial Vital Signs: Vital Signs Pulse Rate 94 H 12/18/22 07:48 Respiratory Rate 24 12/18/22 07:48 Pulse Oximetry 98 12/18/22 07:48 Course Orders Ordered: Discontinued Medications Acetaminophen (Acetaminophen 325 Mg Tablet) 975 mg PO NOW ONE Stop: 12/18/22 08:58 Last Admin: 12/18/22 09:10 Dose: 975 mg Documented By: GLENN Albuterol/Ipratropium (Albuterol/Ipratropium 3 Ml Ampul) 3 ml INH NOW ONE Stop: 12/18/22 07:50 Last Admin: 12/18/22 07:57 Dose: 3 ml Documented By: MARIA R Sodium Chloride (Normal Saline 0.9%) 500 mls @ 1,000 mls/hr IV BOLUS ONE Stop: 12/18/22 09:26 Last Infusion: 12/18/22 09:54 Dose: 0 mls/hr Documented By: Admin: 12/18/22 09:15 Dose: 1,000 mls/hr Documented By: GLENN Ketorolac Tromethamine (Ketorolac 30 Mg/Ml Vial) 15 mg IV NOW ONE Stop: 12/18/22 08:58 Last Admin: 12/18/22 09:09 Dose: 15 mg Documented By: GLENN Vital Signs Vital signs: Vital Signs - 8 hr 12/18/22 09:30 12/18/22 09:30 Pulse Rate 87 Respiratory Rate 24 Blood Pressure 105/56 L Pulse Oximetry 98 MDM - SOB/Dyspnea Lab Data 12/18/22 07:47 12/18/22 07:47 Labs: Lab Results 12/18/22 12/18/22 12/18/22 Range/Units 07:31 07:31 07:47 WBC (4.5-11.0) X10^3/uL RBC (4.5-5.9) X10^6/uL Hgb (13.5-17.5) g/dL Hct (41-53) % MCV (80-100) fL MCH (26-34) PG MCHC (30-36) % RDW (11.6-14.8) % Plt Count (150-400) X10^3/uL Neut % (Auto) (50-75) % Lymph % (Auto) (25-40) % Sibley % (Auto) (3-14) % Eos % (Auto) (2-4) % Baso % (Auto) (0-2) % Neut # (Auto) (6944-9720) /uL Lymph # (Auto) (1576-1340) /uL Sibley # (Auto) (0-900) /uL Eos # (Auto) (0-450) /uL Baso # (Auto) (0-100) /uL D-Dimer 503 H (<500) ng/ml Sodium (137-145) mmol/L Potassium (3.4-5.1) mmol/L Chloride (98-107) mmol/L Carbon Dioxide (22-32) mmol/L BUN (9-20) mg/dL Creatinine (0.66-1.25) mg/dL Estimated GFR (>60) mL/min BUN/Creatinine Ratio (6-22) Glucose (80-110) mg/dL Calcium (8.4-10.2) mg/dL Magnesium (1.6-2.3) mg/dL Total Bilirubin (0.2-1.3) mg/dL AST (17-59) IU/L ALT (<50) IU/L Alkaline Phosphatase (38-126) U/L Total Creatine Kinase 35 L (55-170) U/L CK-MB (CK-2) TNP CK-MB (CK-2) Rel Index TNP Troponin I < 0.012 (0.01-0.034) ng/mL Total Protein (6.3-8.2) g/dL Albumin (3.5-5.0) g/dL Globulin (1.7-4.1) g/dL Albumin/Globulin Ratio (1.0-2.8) Procalcitonin 0.04 (<0.5) ng/mL 12/18/22 12/18/22 Range/Units 07:47 07:47 WBC 9.5 (4.5-11.0) X10^3/uL RBC 3.91 L (4.5-5.9) X10^6/uL Hgb 9.4 L (13.5-17.5) g/dL Hct 30.4 L (41-53) % MCV 77.6 L (80-100) fL MCH 24.0 L (26-34) PG MCHC 31.0 (30-36) % RDW 16.3 H (11.6-14.8) % Plt Count 268 (150-400) X10^3/uL Neut % (Auto) 58.1 (50-75) % Lymph % (Auto) 33.8 (25-40) % Sibley % (Auto) 5.5 (3-14) % Eos % (Auto) 2.1 (2-4) % Baso % (Auto) 0.5 (0-2) % Neut # (Auto) 5500 (0897-1349) /uL Lymph # (Auto) 3200 (8666-6056) /uL Sibley # (Auto) 500 (0-900) /uL Eos # (Auto) 200 (0-450) /uL Baso # (Auto) 100 (0-100) /uL D-Dimer (<500) ng/ml Sodium 139 (137-145) mmol/L Potassium 3.7 (3.4-5.1) mmol/L Chloride 98 (98-107) mmol/L Carbon Dioxide 36 H (22-32) mmol/L BUN 18 (9-20) mg/dL Creatinine 0.91 (0.66-1.25) mg/dL Estimated GFR > 60 (>60) mL/min BUN/Creatinine Ratio 19.8 (6-22) Glucose 118 H (80-110) mg/dL Calcium 9.0 (8.4-10.2) mg/dL Magnesium 1.9 (1.6-2.3) mg/dL Total Bilirubin 0.2 (0.2-1.3) mg/dL AST 28 (17-59) IU/L ALT 21 (<50) IU/L Alkaline Phosphatase 50 (38-126) U/L Total Creatine Kinase (55-170) U/L CK-MB (CK-2) CK-MB (CK-2) Rel Index Troponin I (0.01-0.034) ng/mL Total Protein 6.9 (6.3-8.2) g/dL Albumin 3.9 (3.5-5.0) g/dL Globulin 3.0 (1.7-4.1) g/dL Albumin/Globulin Ratio 1.3 (1.0-2.8) Procalcitonin (<0.5) ng/mL MDM Narrative Medical decision making narrative: CC: 62-year-old male smoker with COPD on home oxygen has increasing cough Complicating co-morbidities: COPD on home oxygen Data collected from: Patient Medical records reviewed: Prior notes reviewed in our EMR Differential considered, but not limited to: Pneumonia versus COPD exacerbation versus pulmonary embolism versus other Exam documented above, pertinent findings include: Decreased breath sounds with prolonged expiratory phase Lab Test results independently reviewed as above. Pertinent findings: No leukocytosis or left shift, D-dimer below age corrected cutoff, electrolytes and renal function within normal Independently reviewed EKG as above Imaging studies independently reviewed: Chest x-ray suggests bilateral pneumonia Scores Used: PORT Score Treatments: Patient given DuoNeb, fluids, steroids, Toradol Re-evaluations: Significant improvement, no significant work of breathing Discussion: Patient with COPD on home oxygen with increasing cough. He has reassuring physical exam and stable labs. Chest x-ray does suggest a bilateral pneumonia, patient has no increased oxygen demands, port score is low and suggests he is appropriate for outpatient treatment. Pulmonary embolism considered but thought unlikely given D-dimer below age corrected cutoff. Disposition: see below, along with detailed discharge instructions that have been reviewed with patient as well as indications for ED re-evaluation and additional outpatient follow up Discharge Plan Departure Patient Disposition: Home Clinical Impression: Bilateral pneumonia, COPD exacerbation Instructions: Chronic Obstructive Pulmonary Disease, DI for Pneumonia -- Adult Activity Restrictions/Additional Instructions: *You have been diagnosed with [bilateral pneumonia with COPD exacerbation] *What to do: *Please continue to take your regular medications as directed. [x ] New medication prescriptions sent to your pharmacy: [ [facility]] [ ] New medication written as a paper prescription [ ] No new medications given *Please follow up with your primary care provider in 2-3 days, call for an appointment. Let them know you were seen in the Emergency Department and that we ask that you be seen in follow up. We will electronically transmit a record of today's note if your PCP is in our system *Return to Emergency Department if you should have any new, worsening or concerning symptoms, such as [fever greater than 101 F, shaking chills, worsening pain, persistent vomiting or other bothersome symptoms] Prescriptions: New prednisone 10 mg tablet See Rx Instructions .ROUTE .COMPLEX Qty: 30 0RF Rx Instructions: Day 1,2,3: 40mg PO Daily Day 4,5,6: 30mg PO Daily Day 7,8,9: 20mg PO Daily Day 10,11,12: 10mg PO Daily #30 amoxicillin-pot clavulanate 875-125 mg tablet 1 tab PO Q12H Qty: 20 0RF No Action albuterol sulfate [Ventolin HFA] 90 mcg/actuation HFA aerosol inhaler See Rx Instructions .ROUTE .COMPLEX Qty: 18 3RF Dose Instruction: INHALE 1 - 2 PUFFS EVERY 4 HOURS NEEDED FOR SHORTNESS OF BREATH OR WHEEZING Rx Instructions: INHALE 1 - 2 PUFFS EVERY 4 HOURS NEEDED FOR SHORTNESS OF BREATH OR WHEEZING (DME) Disabled Parking Permit Qty: 1 0RF Rx Instructions: Patient qualifies for permanent disabled parking permit. ipratropium-albuterol 0.5 mg-3 mg(2.5 mg base)/3 mL solution for nebulization 3 ml INHALATION BID PRN (Reason: wheezing/ SOB) Qty: 90 11RF nystatin 100,000 unit/mL suspension 5 ml PO QID Qty: 200 1RF Dulera 200-5 mcg/actuation HFA aerosol inhaler See Rx Instructions .ROUTE .COMPLEX Qty: 13 6RF Dose Instruction: INHALE 2 PUFFS BY MOUTH TWICE DAILY Rx Instructions: INHALE 2 PUFFS BY MOUTH TWICE DAILY simvastatin 20 mg tablet 20 mg PO DAILY Qty: 90 1RF montelukast 10 mg tablet 10 mg PO QPM Qty: 90 3RF benzonatate 100 mg capsule 100 mg PO BID-TID Qty: 270 1RF Spiriva with HandiHaler 18 mcg capsule, w/inhalation device 18 mcg inhalation DAILY Qty: 90 3RF prednisone 20 mg tablet See Rx Instructions .ROUTE .COMPLEX Qty: 90 1RF Dose Instruction: TAKE 1 TABLET (20 MG) BY MOUTH DAILY FOR COPD Rx Instructions: TAKE 1 TABLET (20 MG) BY MOUTH DAILY FOR COPD acetaminophen 325 mg Tablet 1 dose PO PRN PRN (Reason: pain) magnesium hydroxide 400 mg/5 mL Suspension 1 dose PO PRN PRN (Reason: Indigestion) Patient Comments: patient states uses often Mylanta ibuprofen 200 mg Tablet 1 dose PO PRN PRN (Reason: pain) aspirin 81 mg Tablet 81 mg PO DAILY nitroglycerin 0.3 mg tablet, sublingual 0.3 mg sublingual Q5-15M PRN (Reason: chest pain) Qty: 20 0RF Rx Instructions: do not exceed 3 doses per episode ipratropium-albuterol 0.5 mg-3 mg(2.5 mg base)/3 mL solution for nebulization 3 ml INHALATION Q4-6H PRN (Reason: shortness of breath or wheezing) Qty: 90 0RF lisinopril 10 mg tablet 10 mg PO DAILY Rx Instructions: TAKE 1 TABLET BY MOUTH DAILY clonazepam 0.5 mg tablet 0.5 mg PO BID PRN (Reason: Anxiety) prednisone 20 mg tablet See Rx Instructions .ROUTE .COMPLEX Qty: 13 0RF Rx Instructions: 60 mg (3 pills) daily for 2 days, then 40 mg (2 pills) daily for 2 days, then 20mg (1 pill) daily for 2 days then 10mg (1/2 pill) for 2 days then stop Referrals: Saqib Oliva, DO [Primary Care Provider] - Stand Alone Forms: Patient Portal/API
[2022-12-18] MEDS: ALBUTEROL/IPRATROPIUM 3 ML AMPUL INH (07:57)
[2022-12-18 08:08] LABS: Creatine Kinase 35 U/L (55-170)
[2022-12-18 08:08] LABS: Alanine Aminotransferase 21 IU/L (<50); Albumin 3.9 g/dL (3.5-5.0); Albumin Globulin Ratio 1.3 (1.0-2.8); Alkaline Phosphatase 50 U/L (38-126); Aspartate Aminotransferase 28 IU/L (17-59); BUN Creatinine Ratio 19.8 (6-22); Bilirubin Total 0.2 mg/dL (0.2-1.3); Blood Urea Nitrogen 18 mg/dL (9-20); Carbon Dioxide 36 mmol/L (22-32); Chloride 98 mmol/L (98-107); Estimated Glomerular Filt Rate > 60 mL/min (>60); Glucose 118 mg/dL (80-110); HEMOLYSIS < 15 (0-50); Magnesium 1.9 mg/dL (1.6-2.3); Potassium 3.7 mmol/L (3.4-5.1); Sodium 139 mmol/L (137-145); Total Protein 6.9 g/dL (6.3-8.2)
[2022-12-18 08:14] LABS: Add Manual Diff / Slide Review NO; Basophils Absolute Auto 100 /uL (0-100); Basophils Percent Auto 0.5 % (0-2); Eosinophils Absolute Auto 200 /uL (0-450); Eosinophils Percent Auto 2.1 % (2-4); Hematocrit 30.4 % (41-53); Hemoglobin 9.4 g/dL (13.5-17.5); Lymphocytes Absolute Auto 3200 /uL (1100-4500); Lymphocytes Percent Auto 33.8 % (25-40); Mean Corpuscular Volume 77.6 fL (80-100); Monocytes Absolute Auto 500 /uL (0-900); Monocytes Percent Auto 5.5 % (3-14); Neutrophils Absolute Auto 5500 /uL (1500-7000); Neutrophils Percent Auto 58.1 % (50-75); Platelet Count 268 X10^3/uL (150-400); Red Blood Cell Count 3.91 X10^6/uL (4.5-5.9); Red Cell Distribution Width 16.3 % (11.6-14.8); White Blood Cell Count 9.5 X10^3/uL (4.5-11.0)
[2022-12-18 08:14] LABS: D Dimer 503 ng/ml (<500)
[2022-12-18 08:20] LABS: Troponin I < 0.012 ng/mL (0.01-0.034)
[2022-12-18 08:25] LABS: Procalcitonin 0.04 ng/mL (<0.5)
[2022-12-18] MEDS: KETOROLAC 30 MG/ML VIAL 15 MG IV (09:09)
[2022-12-18] MEDS: ACETAMINOPHEN 325 MG TABLET 975 MG PO (09:10)
[2022-12-18] MEDS: SODIUM CHLORIDE 0.9% 500 ML 1000 ML IV (09:15)
== END 2022-12-18 09:58 | disposition home or self-care (01) ==
PROVIDERS: Emergency Provider Emergency Medicine; PCP Family Medicine
DX: J18.9 Pneumonia, unspecified organism (principal); J44.1 Chronic obstructive pulmonary disease with (acute) exacerbation; R07.9 Chest pain, unspecified; R05.9 Cough, unspecified; Z79.899 Other long term (current) drug therapy
CPT/HCPCS: 36415; 71045; 80053; 82550; 83735; 84145; 84484; 85025; 85379; 87040; 93005; 93010; 94640; 96374; 99284; J1885

== ENCOUNTER → 2023-01-15 14:41 | Outpatient (CLI) | payer MEDICARE, MEDICAID, SELFPAY ==
[2022-11-18 19:35] VITALS: BMI 23.6
--- NOTE | 2023-01-15 14:48 | DI.RAD.S_ITS ---
PROCEDURE: XR CHEST 2V INDICATIONS: Status post follow-up pneumonia TECHNIQUE: 2 views of the chest were acquired. COMPARISON: [facility], CR, XR CHEST 1V, 11/18/2022, 15:52. [facility], CR, XR CHEST 1V, 12/18/2022, 7:36. [facility], CR, XR CHEST 2V, 01/30/2022, 15:58. FINDINGS: Surgical changes and devices: None. Lungs and pleura: Left midlung atelectasis. Emphysematous changes with apical predominance. No pleural effusions or pneumothorax. Mediastinum: Mediastinal contours are normal. Heart size is normal. Bones and chest wall: No suspicious bony abnormalities. Soft tissues appear unremarkable. IMPRESSION: No acute cardiopulmonary disease process. Dictated by: Lianet Celis MD, PhD on 01/15/2023 at 16:11 Approved by: Lianet Celis MD, PhD on 01/15/2023 at 16:13
[2023-01-15 15:56] LABS: Add Manual Diff / Slide Review NO; Basophils Absolute Auto 0 /uL (0-100); Basophils Percent Auto 0.1 % (0-2); Eosinophils Absolute Auto 0 /uL (0-450); Eosinophils Percent Auto 0.4 % (2-4); Hematocrit 27.5 % (41-53); Hemoglobin 8.4 g/dL (13.5-17.5); Lymphocytes Absolute Auto 1100 /uL (1100-4500); Lymphocytes Percent Auto 8.1 % (25-40); Mean Corpuscular HGB Conc 30.4 % (30-36); Mean Corpuscular Hemoglobin 22.4 PG (26-34); Mean Corpuscular Volume 73.7 fL (80-100); Monocytes Absolute Auto 600 /uL (0-900); Monocytes Percent Auto 4.5 % (3-14); Neutrophils Absolute Auto 11400 /uL (1500-7000); Neutrophils Percent Auto 86.9 % (50-75); Platelet Count 257 X10^3/uL (150-400); Red Blood Cell Count 3.73 X10^6/uL (4.5-5.9); Red Cell Distribution Width 16.7 % (11.6-14.8); White Blood Cell Count 13.2 X10^3/uL (4.5-11.0)
[2023-01-15 16:24] LABS: Alanine Aminotransferase 18 IU/L (<50); Albumin 3.6 g/dL (3.5-5.0); Albumin Globulin Ratio 1.3 (1.0-2.8); Alkaline Phosphatase 51 U/L (38-126); Aspartate Aminotransferase 18 IU/L (17-59); BUN Creatinine Ratio 25.5 (6-22); Bilirubin Total 0.3 mg/dL (0.2-1.3); Blood Urea Nitrogen 25 mg/dL (9-20); Carbon Dioxide 33 mmol/L (22-32); Chloride 99 mmol/L (98-107); Estimated Glomerular Filt Rate > 60 mL/min (>60); Globulin 2.7 g/dL (1.7-4.1); Glucose 103 mg/dL (80-110); HEMOLYSIS < 15 (0-50); Potassium 4.7 mmol/L (3.4-5.1); Sodium 137 mmol/L (137-145); Total Protein 6.3 g/dL (6.3-8.2)
[2023-01-15 16:49] LABS: TSH w/ Reflex to FT4 0.17 uIU/mL (0.47-4.68)
[2023-01-15 17:15] LABS: Appearance Urine UA CLEAR; Bilirubin Urine UA NEGATIVE (NEGATIVE); Color Urine UA YELLOW; Glucose Urine UA NEGATIVE (Negative); Ketones Urine UA NEGATIVE (NEGATIVE); Leukocyte Esterase Urine UA NEGATIVE (NEGATIVE); Nitrite Urine UA NEGATIVE (Negative); Occult Blood Urine UA 2+ (Negative); Protein Urine UA NEGATIVE (Negative); Specific Gravity Urine UA 1.025 (1.000-1.035); Urobilinogen Urine UA 0.2 E.U./dL (0.2); pH Urine UA 5.5 (4.5-8.0)
[2023-01-15 17:23] LABS: Bacteria Urine None Seen; Culture Indicated Urine Cult Not Indicated; Mucus Urine 1+ (Negative); RBC Urine 1-5/HPF (0-5/HPF); Squamous Epithelial Cell Urine None Seen (0-5/HPF); WBC Urine None Seen (0-5/HPF)
[2023-01-15 18:53] LABS: Free T4, Direct Thyroxine 1.16 ng/dL (0.78-2.19)
== END ==
PROVIDERS: PCP Family Medicine; Referring Provider Family Medicine; Visit Provider Family Medicine
DX: E78.5 Hyperlipidemia, unspecified (principal); J18.9 Pneumonia, unspecified organism; I10 Essential (primary) hypertension; J44.1 Chronic obstructive pulmonary disease with (acute) exacerbation
CPT/HCPCS: 36415; 71046; 80053; 81001; 84439; 84443; 85025

== ENCOUNTER 2023-01-17 06:47 | Emergency (ER) | payer MEDICARE, MEDICAID, SELFPAY ==
[2022-11-18 19:35] VITALS: BMI 23.6
[2023-01-17] VITALS (15 sets, daily range): BP systolic 93–145; BP diastolic 51–70; PULSE 96–118; RESP 14–39; TEMP 37.2; O2SAT 92–98; BMI 24.2
--- NOTE | 2023-01-17 07:04 | DI.RAD.S_ITS ---
PROCEDURE: XR CHEST 1V INDICATIONS: Shortness of breath TECHNIQUE: One view of the chest was acquired. COMPARISON: [facility], CR, XR CHEST 2V, 01/15/2023, 14:50. FINDINGS: Surgical changes and devices: None. Lungs and pleura: Severe bullous emphysema without development of consolidation or pneumothorax. No visible pleural effusions. Chronic bilateral mid lung scarring. Mediastinum: Mediastinal contours appear normal. Heart size is normal. Bones and chest wall: No suspicious bony lesions. Overlying soft tissues appear unremarkable. IMPRESSION: 1. No acute change to severe emphysema. Dictated by: Ondina Cates M.D. on 01/17/2023 at 7:42 Approved by: Ondina Cates M.D. on 01/17/2023 at 7:44
--- NOTE | 2023-01-17 07:13 | ED.SOB ---
HPI - SOB/Dyspnea General Chief Complaint: Shortness of Breath/Dyspnea Stated Complaint: SOB Time Seen by Provider: 01/17/23 06:48 Source: patient and EMS Mode of arrival: EMS History of Present Illness HPI Narrative: Patient is 62-year-old male history of COPD on 2 L home oxygen, hypertension GERD presenting today with increasing shortness of breath and cough. He was recently admitted in the hospital November 18 through November 21 for COPD exacerbation. He was seen again December 18 for COPD exacerbation. He reports that he has been on prednisone 10 mg daily he has been unable to wean off of it. He finished antibiotics Augmentin around December 28. He continues to have waxing and waning of symptoms. He has overall fatigue. He continues to have a productive sputum and generalized fatigue. He denies any real chest pain. This morning he woke up with increased shortness of breath he has been out of his Dulera, which arrived yesterday. EMS gave him a DuoNeb and seems to be doing much better. Related Data Home Medications Medication Instructions Recorded Confirmed acetaminophen 325 mg tablet 1 dose PO PRN PRN pain 12/29/18 01/15/23 ibuprofen 200 mg tablet 1 dose PO PRN PRN pain 12/29/18 01/15/23 magnesium hydroxide 400 mg/5 mL 1 dose PO PRN PRN Indigestion 12/29/18 01/15/23 oral suspension aspirin 81 mg tablet 81 mg PO DAILY 12/30/20 01/15/23 lisinopril 10 mg tablet 10 mg PO DAILY 11/18/22 01/15/23 clonazepam 0.5 mg tablet 0.5 mg PO BID PRN Anxiety 11/19/22 01/15/23 Previous Rx's Medication Instructions Recorded albuterol sulfate 90 mcg/actuation See Rx Instructions .Route 05/04/19 aerosol inhaler (Ventolin HFA) .COMPLEX #18 grams Disabled Parking Permit #1 ea 06/24/19 nitroglycerin 0.3 mg sublingual 0.3 mg sublingual Q5-15M PRN chest 01/23/21 tablet pain #20 tabs tiotropium bromide 18 mcg capsule 18 mcg inhalation DAILY #90 08/12/21 with inhalation device (Spiriva inhalations with HandiHaler) ipratropium 0.5 mg-albuterol 3 mg 3 ml inhalation BID PRN wheezing/ 01/24/22 (2.5 mg base)/3 mL nebulization SOB #90 mL soln ipratropium 0.5 mg-albuterol 3 mg 3 ml inhalation Q4-6H PRN 01/26/22 (2.5 mg base)/3 mL nebulization shortness of breath or wheezing soln #90 mL nystatin 100,000 unit/mL oral 5 ml PO QID #200 mL 02/25/22 suspension mometasone-formoterol HFA 200 See Rx Instructions .Route 05/21/22 mcg-5 mcg/actuation aerosol .COMPLEX #13 grams inhaler (Dulera) simvastatin 20 mg tablet 20 mg PO DAILY #90 tabs 07/17/22 montelukast 10 mg tablet 10 mg PO QPM #90 tabs 09/05/22 prednisone 20 mg tablet See Rx Instructions .Route 09/11/22 .COMPLEX #90 tabs benzonatate 100 mg capsule 100 mg PO BID-TID #270 caps 10/02/22 prednisone 20 mg tablet See Rx Instructions .Route 11/21/22 .COMPLEX #13 tabs prednisone 10 mg tablet See Rx Instructions .Route 12/18/22 .COMPLEX #30 tabs azithromycin 250 mg tablet See Rx Instructions PO .COMPLEX #6 01/17/23 tabs doxycycline hyclate 100 mg capsule 100 mg PO BID #20 caps 01/17/23 prednisone 10 mg tablet 10 mg PO DAILY #30 tabs 01/17/23 Allergies Allergy/AdvReac Type Severity Reaction Status Date / Time cinnamon [CINNAMON] Allergy Severe RESP Verified 01/17/23 11:15 PROBLEMS AND SWELLING Sulfa (Sulfonamide Allergy Severe anaphylacti Verified 01/17/23 11:15 Antibiotics) c [SULFA (SULFONAMIDE ANTIBIOTICS)] fluticasone [FLUTICASONE] Allergy Intermediate FEELS Verified 01/17/23 11:15 LIKE FIRE IN THE LUNGS trimethoprim [TRIMETHOPRIM] Allergy Unknown Patient Verified 01/17/23 11:15 can't remember codeine [CODEINE] AdvReac Intermediate violent Verified 01/17/23 11:15 doxycycline [DOXYCYCLINE] AdvReac Mild N/V Verified 01/17/23 11:15 dextromethorphan AdvReac Verified 01/17/23 11:15 fentanyl AdvReac Verified 01/17/23 11:15 Review of Systems Review of Systems ROS Unobtainable: All systems reviewed & are unremarkable except as noted in HPI and below Patient History Medical History Anxiety (~2015) Asthma (Unknown) COPD (chronic obstructive pulmonary disease) (~2013) GERD with stricture Hematuria (~2014) HTN (hypertension) Hyperlipidemia (~2015) Insomnia (~2015) Palpitations TIA (transient ischemic attack) (05/2014) Surgical History No pertinent past surgical history Family History Mother Age: 84 Hypertension Sister Age: 67 Cancer Social History household members: none Smoking Status: Current some day smoker Tobacco: How many years used: 47 quit status: considering quitting second hand exposure: No alcohol intake: former substance use type: does not use Smoking Status: Current some day smoker tobacco type: cigarettes alcohol intake frequency: 0-2 drinks per day Substance Use Type: does not use Exam Initial Vital Signs Initial Vital Signs: Vital Signs Pulse Rate 118 H 01/17/23 06:51 Pulse Oximetry 98 01/17/23 06:51 GENERAL: Alert 62-year-old male and in no acute distress. HEENT: Head atraumatic,EOMI, pupils reactive, face symmetric, moist mucous membranes CARDIOVASCULAR: Regular rate and rhythm without murmurs, rubs or gallops. RESPIRATORY: Decreased breath sounds bilaterally no wheezes rales or rhonchi conversational dyspnea ABDOMEN: Soft, nontender. Normoactive bowel sounds all 4 quadrants. No guarding or rebound. EXTREMITIES: Normal range of motion, no clubbing or edema. Neurovascularly intact NEUROLOGICAL: Alert and oriented x4. SKIN: Warm, dry, no laceration, no petechiae, no rashes or lesions. Course Orders Ordered: ED Orders 01/17/23 06:50 Complete Blood Count AUTO DIFF Stat Comprehensive Metabolic Panel Stat Lactate (Lactic Acid) Stat NT-proBNP (BNP-Adult 18+) Stat Procalcitonin Stat Prothrombin Time INR Stat Troponin I Stat 01/17/23 07:04 XR chest 1V Stat Measure peak expiratory flow ONCE RT Consult Eval and Treat NOW 07/08/23 07:34 EKG-12 Lead Stat 01/17/23 10:02 Urine Microscopic Stat Discontinued Medications Acetaminophen (Acetaminophen 325 Mg Tablet) 975 mg PO NOW ONE Stop: 01/17/23 10:35 Last Admin: 01/17/23 10:44 Dose: 975 mg Documented By: MPO Albuterol (Albuterol 2.5 Mg/3 Ml Neb (Adult)) 2.5 mg INH NOW ONE Stop: 01/17/23 07:26 Last Admin: 01/17/23 07:35 Dose: 2.5 mg Documented By: SRAVANTHI Albuterol/Ipratropium (Albuterol/Ipratropium 3 Ml Ampul) 3 ml INH NOW ONE Stop: 01/17/23 10:48 Last Admin: 01/17/23 10:57 Dose: 3 ml Documented By: SAT Sodium Chloride (Normal Saline 0.9%) 1,000 mls @ 1,000 mls/hr IV BOLUS ONE Stop: 01/17/23 08:24 Last Infusion: 01/17/23 09:02 Dose: 0 mls/hr Documented By: Admin: 01/17/23 07:35 Dose: 1,000 mls/hr Documented By: MPO Sodium Chloride (Normal Saline 0.9%) 1,000 mls @ 1,000 mls/hr IV BOLUS ONE Stop: 01/17/23 10:14 Last Infusion: 01/17/23 10:51 Dose: 0 mls/hr Documented By: Admin: 01/17/23 09:20 Dose: 1,000 mls/hr Documented By: MPO Methylprednisolone (Methylprednisolone 125 Mg/2 Ml Vial) 125 mg IV NOW ONE Stop: 01/17/23 07:26 Last Admin: 01/17/23 07:36 Dose: 125 mg Documented By: MPO Vital Signs Vital signs: Vital Signs - 8 hr 01/17/23 06:55 01/17/23 07:35 01/17/23 06:51 Temperature 98.9 F Pulse Rate 117 H 108 H 118 H Respiratory Rate 24 22 Blood Pressure 93/63 Pulse Oximetry 97 96 98 Oxygen Delivery Method Nasal Cannula Nasal Cannula Oxygen Flow Rate 2 2 01/17/23 06:53 01/17/23 06:53 01/17/23 07:00 Temperature Pulse Rate 116 H 114 H Respiratory Rate Blood Pressure 93/63 Pulse Oximetry 98 96 Oxygen Delivery Method Nasal Cannula Oxygen Flow Rate 2 01/17/23 07:30 01/17/23 08:00 01/17/23 08:30 Temperature Pulse Rate 106 H 102 H 100 H Respiratory Rate 17 29 H 20 Blood Pressure Pulse Oximetry 95 98 98 Oxygen Delivery Method Nasal Cannula Oxygen Flow Rate 2 01/17/23 08:51 01/17/23 08:51 01/17/23 09:00 Temperature Pulse Rate 100 H 97 H Respiratory Rate 27 H 29 H Blood Pressure 93/51 L Pulse Oximetry 98 97 Oxygen Delivery Method Oxygen Flow Rate 01/17/23 09:30 01/17/23 09:58 01/17/23 09:58 Temperature Pulse Rate 101 H 107 H Respiratory Rate 24 39 H Blood Pressure 145/70 H Pulse Oximetry 96 93 Oxygen Delivery Method Oxygen Flow Rate 01/17/23 10:00 01/17/23 10:00 01/17/23 10:30 Temperature Pulse Rate 106 H Respiratory Rate 25 H Blood Pressure 137/67 122/58 L Pulse Oximetry 95 Oxygen Delivery Method Oxygen Flow Rate 01/17/23 10:30 01/17/23 11:00 01/17/23 11:00 Temperature Pulse Rate 96 H 104 H Respiratory Rate 14 22 Blood Pressure 144/66 H Pulse Oximetry 95 92 Oxygen Delivery Method Oxygen Flow Rate MDM - SOB/Dyspnea Lab Data 01/17/23 06:50 01/17/23 06:50 Labs: Lab Results 01/17/23 01/17/23 01/17/23 Range/Units 06:50 06:50 06:50 WBC 15.8 H (4.5-11.0) X10^3/uL RBC 3.69 L (4.5-5.9) X10^6/uL Hgb 8.3 L (13.5-17.5) g/dL Hct 27.3 L (41-53) % MCV 74.0 L (80-100) fL MCH 22.4 L (26-34) PG MCHC 30.2 (30-36) % RDW 16.9 H (11.6-14.8) % Plt Count 309 (150-400) X10^3/uL Neut % (Auto) 71.2 (50-75) % Lymph % (Auto) 18.3 L (25-40) % [place] % (Auto) 8.3 (3-14) % Eos % (Auto) 1.8 L (2-4) % Baso % (Auto) 0.4 (0-2) % Neut # (Auto) 93766 H (9024-3044) /uL Lymph # (Auto) 2900 (0056-4636) /uL [place] # (Auto) 1300 H (0-900) /uL Eos # (Auto) 300 (0-450) /uL Baso # (Auto) 100 (0-100) /uL PT 12.2 (10.1-12.7) SECONDS INR 1.1 (0.9-1.3) Sodium 140 (137-145) mmol/L Potassium 4.0 (3.4-5.1) mmol/L Chloride 100 (98-107) mmol/L Carbon Dioxide 33 H (22-32) mmol/L BUN 23 H (9-20) mg/dL Creatinine 0.87 (0.66-1.25) mg/dL Estimated GFR > 60 (>60) mL/min BUN/Creatinine Ratio 26.4 H (6-22) Glucose 115 H (80-110) mg/dL Lactate (0.7-2.1) mmol/L Calcium 8.7 (8.4-10.2) mg/dL Total Bilirubin 0.2 (0.2-1.3) mg/dL AST 23 (17-59) IU/L ALT 18 (<50) IU/L Alkaline Phosphatase 52 (38-126) U/L Troponin I < 0.012 (0.01-0.034) ng/mL NT-Pro-B Natriuret Pep 84 (<125) pg/mL Total Protein 7.1 (6.3-8.2) g/dL Albumin 3.9 (3.5-5.0) g/dL Globulin 3.2 (1.7-4.1) g/dL Albumin/Globulin Ratio 1.2 (1.0-2.8) Procalcitonin (<0.5) ng/mL Urine RBC (0-5/HPF) Urine WBC (0-5/HPF) Ur Squamous Epith Cells (0-5/HPF) Urine Bacteria (None) Ur Culture Indicated? 01/17/23 01/17/23 01/17/23 Range/Units 06:50 06:50 09:25 WBC (4.5-11.0) X10^3/uL RBC (4.5-5.9) X10^6/uL Hgb (13.5-17.5) g/dL Hct (41-53) % MCV (80-100) fL MCH (26-34) PG MCHC (30-36) % RDW (11.6-14.8) % Plt Count (150-400) X10^3/uL Neut % (Auto) (50-75) % Lymph % (Auto) (25-40) % [place] % (Auto) (3-14) % Eos % (Auto) (2-4) % Baso % (Auto) (0-2) % Neut # (Auto) (8108-7437) /uL Lymph # (Auto) (8724-9092) /uL [place] # (Auto) (0-900) /uL Eos # (Auto) (0-450) /uL Baso # (Auto) (0-100) /uL PT (10.1-12.7) SECONDS INR (0.9-1.3) Sodium (137-145) mmol/L Potassium (3.4-5.1) mmol/L Chloride (98-107) mmol/L Carbon Dioxide (22-32) mmol/L BUN (9-20) mg/dL Creatinine (0.66-1.25) mg/dL Estimated GFR (>60) mL/min BUN/Creatinine Ratio (6-22) Glucose (80-110) mg/dL Lactate 2.9 H 1.2 (0.7-2.1) mmol/L Calcium (8.4-10.2) mg/dL Total Bilirubin (0.2-1.3) mg/dL AST (17-59) IU/L ALT (<50) IU/L Alkaline Phosphatase (38-126) U/L Troponin I (0.01-0.034) ng/mL NT-Pro-B Natriuret Pep (<125) pg/mL Total Protein (6.3-8.2) g/dL Albumin (3.5-5.0) g/dL Globulin (1.7-4.1) g/dL Albumin/Globulin Ratio (1.0-2.8) Procalcitonin 0.06 (<0.5) ng/mL Urine RBC (0-5/HPF) Urine WBC (0-5/HPF) Ur Squamous Epith Cells (0-5/HPF) Urine Bacteria (None) Ur Culture Indicated? 01/17/23 Range/Units 10:02 WBC (4.5-11.0) X10^3/uL RBC (4.5-5.9) X10^6/uL Hgb (13.5-17.5) g/dL Hct (41-53) % MCV (80-100) fL MCH (26-34) PG MCHC (30-36) % RDW (11.6-14.8) % Plt Count (150-400) X10^3/uL Neut % (Auto) (50-75) % Lymph % (Auto) (25-40) % [place] % (Auto) (3-14) % Eos % (Auto) (2-4) % Baso % (Auto) (0-2) % Neut # (Auto) (8569-6099) /uL Lymph # (Auto) (6198-0525) /uL [place] # (Auto) (0-900) /uL Eos # (Auto) (0-450) /uL Baso # (Auto) (0-100) /uL PT (10.1-12.7) SECONDS INR (0.9-1.3) Sodium (137-145) mmol/L Potassium (3.4-5.1) mmol/L Chloride (98-107) mmol/L Carbon Dioxide (22-32) mmol/L BUN (9-20) mg/dL Creatinine (0.66-1.25) mg/dL Estimated GFR (>60) mL/min BUN/Creatinine Ratio (6-22) Glucose (80-110) mg/dL Lactate (0.7-2.1) mmol/L Calcium (8.4-10.2) mg/dL Total Bilirubin (0.2-1.3) mg/dL AST (17-59) IU/L ALT (<50) IU/L Alkaline Phosphatase (38-126) U/L Troponin I (0.01-0.034) ng/mL NT-Pro-B Natriuret Pep (<125) pg/mL Total Protein (6.3-8.2) g/dL Albumin (3.5-5.0) g/dL Globulin (1.7-4.1) g/dL Albumin/Globulin Ratio (1.0-2.8) Procalcitonin (<0.5) ng/mL Urine RBC 1-5/hpf (0-5/HPF) Urine WBC 0-1/hpf (0-5/HPF) Ur Squamous Epith Cells 0-1 /hpf (0-5/HPF) Urine Bacteria Few (2-10) H (None) Ur Culture Indicated? Cult not indicated Urine Dip Bedside Urine Glucose Negative Bedside Urine Bilirubin - Negative Bedside Urine Ketone - Negative Urine Specific [place] 1.015 Bedside Urine Occult Blood +++ Bedside Urine pH 6.0 Bedside Urine Protein - Negative Bedside Urine Urobilinogen - Negative Bedside Urine Nitrite - Negative Bedside Urine Leukocytes - Negative Esterase Imaging Data Chest x-ray: Radiologist's Impression: PROCEDURE:? XR CHEST 1V ? INDICATIONS:? Shortness of breath ? TECHNIQUE:? One view of the chest was acquired.? ? COMPARISON:? [facility], , XR CHEST 2V, 01/15/2023, 14:50. ? FINDINGS:? ? Surgical changes and devices:? None.? ? Lungs and pleura:? Severe bullous emphysema without development of consolidation or pneumothorax.? No visible pleural effusions.? Chronic bilateral mid lung scarring. ? Mediastinum:? Mediastinal contours appear normal.? Heart size is normal.? ? Bones and chest wall:? No suspicious bony lesions.? Overlying soft tissues appear unremarkable.? ? IMPRESSION:? ? 1. No acute change to severe emphysema.? ? ? Dictated by: Ondina Cates M.D. on 01/17/2023 at 7:42 ? ? ECG Data Interpretation: Normal sinus rhythm rate 107 IA interval 134 QRS [address] changes similar to previous MDM Narrative Medical decision making narrative: The patient 62-year-old male history of COPD with a COPD exacerbation. He has been tapering down on his prednisone. He was out of his meds today. X-ray does not show any evidence of pneumonia procalcitonin is also negative he is not having fever chills. He does have leukocytosis 15.8 previously 13.2 however he is on steroids. He is has a anemia but hemoglobin is stable 8.3 with hematocrit 27.3. No significant electrolyte abnormality or CLAY. Lactate is noted to be elevated 2.9 which improved with 2 L of IV fluids to 1.2. He actually was noted to be mildly hypotensive with a blood pressure in the 90s but was completely asymptomatic. Previous blood pressures show blood pressure greater than 100. He is afebrile I do not think severe sepsis at this time. May benefit from another burst of steroids with antibiotics he was previously placed on Augmentin can put him on azithromycin, allergic to doxycycline. He is not requiring any more oxygen than normal at this time I see no need for admission. Discharge Plan Departure Patient Disposition: Home Clinical Impression: Chronic obstructive pulmonary disease with (acute) exacerbation Instructions: Chronic Obstructive Pulmonary Disease Activity Restrictions/Additional Instructions: *You have been diagnosed with COPD exacerbation *What to do: At this time feel please follow-up with pulmonology in your PCP. *Continue to take medications as directed Prednisone 40 mg for 3 days, 30 mg for 3 days, 20 mg for 3 days, 10 mg for 3 days Doxycycline 100 mg twice a day for 10 days *Follow up with your primary care provider in 2-3 days or call [phone] *Return to ER if you should have increased shortness of breath fever chest pain passing out or any new, worsening or concerning symptoms Prescriptions: New prednisone 10 mg tablet 10 mg PO DAILY Qty: 30 0RF Rx Instructions: day 1-3: 40 mg once a day day 4-6: 30 mg once a day day 7-9: 20 mg once a day day 10-12: 10 mg once a day doxycycline hyclate 100 mg capsule 100 mg PO BID Qty: 20 0RF azithromycin 250 mg tablet See Rx Instructions PO .COMPLEX Qty: 6 0RF Rx Instructions: For 250 mg dose pack: take 500 mg today (day 1), then 250 mg for 4 days (days 2-5) No Action albuterol sulfate [Ventolin HFA] 90 mcg/actuation HFA aerosol inhaler See Rx Instructions .ROUTE .COMPLEX Qty: 18 3RF Dose Instruction: INHALE 1 - 2 PUFFS EVERY 4 HOURS NEEDED FOR SHORTNESS OF BREATH OR WHEEZING Rx Instructions: INHALE 1 - 2 PUFFS EVERY 4 HOURS NEEDED FOR SHORTNESS OF BREATH OR WHEEZING (DME) Disabled Parking Permit Qty: 1 0RF Rx Instructions: Patient qualifies for permanent disabled parking permit. ipratropium-albuterol 0.5 mg-3 mg(2.5 mg base)/3 mL solution for nebulization 3 ml INHALATION BID PRN (Reason: wheezing/ SOB) Qty: 90 11RF nystatin 100,000 unit/mL suspension 5 ml PO QID Qty: 200 1RF Dulera 200-5 mcg/actuation HFA aerosol inhaler See Rx Instructions .ROUTE .COMPLEX Qty: 13 6RF Dose Instruction: INHALE 2 PUFFS BY MOUTH TWICE DAILY Rx Instructions: INHALE 2 PUFFS BY MOUTH TWICE DAILY simvastatin 20 mg tablet 20 mg PO DAILY Qty: 90 1RF montelukast 10 mg tablet 10 mg PO QPM Qty: 90 3RF benzonatate 100 mg capsule 100 mg PO BID-TID Qty: 270 1RF Spiriva with HandiHaler 18 mcg capsule, w/inhalation device 18 mcg inhalation DAILY Qty: 90 3RF prednisone 20 mg tablet See Rx Instructions .ROUTE .COMPLEX Qty: 90 1RF Dose Instruction: TAKE 1 TABLET (20 MG) BY MOUTH DAILY FOR COPD Rx Instructions: TAKE 1 TABLET (20 MG) BY MOUTH DAILY FOR COPD acetaminophen 325 mg Tablet 1 dose PO PRN PRN (Reason: pain) magnesium hydroxide 400 mg/5 mL Suspension 1 dose PO PRN PRN (Reason: Indigestion) Patient Comments: patient states uses often Mylanta ibuprofen 200 mg Tablet 1 dose PO PRN PRN (Reason: pain) aspirin 81 mg Tablet 81 mg PO DAILY nitroglycerin 0.3 mg tablet, sublingual 0.3 mg sublingual Q5-15M PRN (Reason: chest pain) Qty: 20 0RF Rx Instructions: do not exceed 3 doses per episode ipratropium-albuterol 0.5 mg-3 mg(2.5 mg base)/3 mL solution for nebulization 3 ml INHALATION Q4-6H PRN (Reason: shortness of breath or wheezing) Qty: 90 0RF lisinopril 10 mg tablet 10 mg PO DAILY Rx Instructions: TAKE 1 TABLET BY MOUTH DAILY clonazepam 0.5 mg tablet 0.5 mg PO BID PRN (Reason: Anxiety) prednisone 20 mg tablet See Rx Instructions .ROUTE .COMPLEX Qty: 13 0RF Rx Instructions: 60 mg (3 pills) daily for 2 days, then 40 mg (2 pills) daily for 2 days, then 20mg (1 pill) daily for 2 days then 10mg (1/2 pill) for 2 days then stop prednisone 10 mg tablet See Rx Instructions .ROUTE .COMPLEX Qty: 30 0RF Rx Instructions: Day 1,2,3: 40mg PO Daily Day 4,5,6: 30mg PO Daily Day 7,8,9: 20mg PO Daily Day 10,11,12: 10mg PO Daily #30 Referrals: Saqib Oliva DO [Primary Care Provider] - Stand Alone Forms: Patient Portal/API
[2023-01-17 07:14] LABS: Add Manual Diff / Slide Review NO; Basophils Absolute Auto 100 /uL (0-100); Basophils Percent Auto 0.4 % (0-2); Eosinophils Absolute Auto 300 /uL (0-450); Eosinophils Percent Auto 1.8 % (2-4); Hematocrit 27.3 % (41-53); Hemoglobin 8.3 g/dL (13.5-17.5); Lymphocytes Absolute Auto 2900 /uL (1100-4500); Lymphocytes Percent Auto 18.3 % (25-40); Mean Corpuscular HGB Conc 30.2 % (30-36); Mean Corpuscular Hemoglobin 22.4 PG (26-34); Monocytes Absolute Auto 1300 /uL (0-900); Monocytes Percent Auto 8.3 % (3-14); Neutrophils Absolute Auto 11300 /uL (1500-7000); Neutrophils Percent Auto 71.2 % (50-75); Platelet Count 309 X10^3/uL (150-400); Red Blood Cell Count 3.69 X10^6/uL (4.5-5.9); Red Cell Distribution Width 16.9 % (11.6-14.8); White Blood Cell Count 15.8 X10^3/uL (4.5-11.0)
[2023-01-17 07:23] LABS: INR 1.1 (0.9-1.3); Prothrombin Time 12.2 SECONDS (10.1-12.7)
[2023-01-17 07:28] LABS: Alanine Aminotransferase 18 IU/L (<50); Albumin 3.9 g/dL (3.5-5.0); Albumin Globulin Ratio 1.2 (1.0-2.8); Alkaline Phosphatase 52 U/L (38-126); Aspartate Aminotransferase 23 IU/L (17-59); BUN Creatinine Ratio 26.4 (6-22); Bilirubin Total 0.2 mg/dL (0.2-1.3); Blood Urea Nitrogen 23 mg/dL (9-20); Calcium 8.7 mg/dL (8.4-10.2); Carbon Dioxide 33 mmol/L (22-32); Chloride 100 mmol/L (98-107); Estimated Glomerular Filt Rate > 60 mL/min (>60); Globulin 3.2 g/dL (1.7-4.1); Glucose 115 mg/dL (80-110); HEMOLYSIS 21 (0-50); Lactate (Lactic Acid) 2.9 mmol/L (0.7-2.1); Sodium 140 mmol/L (137-145); Total Protein 7.1 g/dL (6.3-8.2)
[2023-01-17] MEDS: SODIUM CHLORIDE 0.9% 1,000 ML 1000 ML IV ×2 (07:35→09:20)
[2023-01-17] MEDS: ALBUTEROL 2.5 MG/3 ML NEB (ADULT) INH (07:35)
[2023-01-17] MEDS: methylPREDNISolone 125 MG/2 ML VIAL IV (07:36)
[2023-01-17 07:39] LABS: NT-proBNP (BNP-Adult 18+) 84 pg/mL (<125); Troponin I < 0.012 ng/mL (0.01-0.034)
--- NOTE | 2023-01-17 07:47 | RT ---
pt idalia neb tx well, no distress noted and on o2@2lpm nc. Neb tx given via air
[2023-01-17 08:24] LABS: Procalcitonin 0.06 ng/mL (<0.5)
[2023-01-17 09:10] LABS: Reflexed Lactate in 2 Hours Y
[2023-01-17 09:42] LABS: Lactate 2HR (Lactic Acid Rflx) 1.2 mmol/L (0.7-2.1)
--- NOTE | 2023-01-17 10:03 | PC.NURSE ---
CARPORT ERECTOR note pt. asked for bedside urinal, this CARPORT ERECTOR assisted pt with urinal, pt. stated his head didn't feel right,light headed/dizzy, and requested his bp be checked, bp read 137/67. Told pt. this CARPORT ERECTOR would notify RN.
[2023-01-17 10:43] LABS: Bacteria Urine Few (2-10); RBC Urine 1-5/HPF (0-5/HPF); WBC Urine 0-1/HPF (0-5/HPF)
[2023-01-17 10:44] LABS: Culture Indicated Urine Cult Not Indicated; Squamous Epithelial Cell Urine 0-1 /HPF (0-5/HPF)
[2023-01-17] MEDS: ACETAMINOPHEN 325 MG TABLET 975 MG PO (10:44)
[2023-01-17] MEDS: ALBUTEROL/IPRATROPIUM 3 ML AMPUL INH (10:57)
== END 2023-01-17 11:20 | disposition home or self-care (01) ==
PROVIDERS: Emergency Provider Emergency Medicine; PCP Family Medicine
DX: J44.1 Chronic obstructive pulmonary disease with (acute) exacerbation (principal)
CPT/HCPCS: 36415; 71045; 80053; 81003; 81015; 83605; 83880; 84145; 84484; 85025; 85610; 93005; 93010; 94640; 96361; 96374; 99284; 99285; J2930; J7613

== ENCOUNTER → 2023-01-30 14:23 | Outpatient (CLI) | payer MEDICARE, MEDICAID, SELFPAY ==
[2022-11-18 19:35] VITALS: BMI 23.6
[2023-01-30 15:34] LABS: Add Manual Diff / Slide Review NO; Basophils Absolute Auto 0 /uL (0-100); Basophils Percent Auto 0.1 % (0-2); Eosinophils Absolute Auto 0 /uL (0-450); Eosinophils Percent Auto 0.2 % (2-4); Hemoglobin 8.4 g/dL (13.5-17.5); Lymphocytes Absolute Auto 1100 /uL (1100-4500); Lymphocytes Percent Auto 6.2 % (25-40); Mean Corpuscular HGB Conc 29.8 % (30-36); Mean Corpuscular Hemoglobin 21.1 PG (26-34); Mean Corpuscular Volume 70.8 fL (80-100); Monocytes Absolute Auto 400 /uL (0-900); Monocytes Percent Auto 2.1 % (3-14); Neutrophils Absolute Auto 16900 /uL (1500-7000); Neutrophils Percent Auto 91.4 % (50-75); Platelet Count 445 X10^3/uL (150-400); Red Blood Cell Count 3.96 X10^6/uL (4.5-5.9); Red Cell Distribution Width 17.8 % (11.6-14.8); White Blood Cell Count 18.5 X10^3/uL (4.5-11.0)
[2023-01-30 16:25] LABS: Alanine Aminotransferase 20 IU/L (<50); Albumin 3.8 g/dL (3.5-5.0); Albumin Globulin Ratio 1.3 (1.0-2.8); Alkaline Phosphatase 67 U/L (38-126); Aspartate Aminotransferase 23 IU/L (17-59); BUN Creatinine Ratio 27.4 (6-22); Bilirubin Total 0.2 mg/dL (0.2-1.3); Blood Urea Nitrogen 26 mg/dL (9-20); Calcium 9.4 mg/dL (8.4-10.2); Carbon Dioxide 37 mmol/L (22-32); Chloride 95 mmol/L (98-107); Estimated Glomerular Filt Rate > 60 mL/min (>60); Glucose 115 mg/dL (80-110); HEMOLYSIS < 15 (0-50); Potassium 4.5 mmol/L (3.4-5.1); Sodium 139 mmol/L (137-145); Total Protein 6.8 g/dL (6.3-8.2)
[2023-01-30 17:19] LABS: HEMOLYSIS < 15 (0-50); Iron 13 ug/dL (49-181)
[2023-01-30 17:36] LABS: Percent Iron Saturation 3 % (20-50); Total Iron Binding Capacity 449 ug/dL (261-462); Transferrin 328 mg/dL (206-381)
[2023-01-30 18:49] LABS: Reticulocyte Count, Percent 1.9 % (0.9-2.6)
[2023-01-30 19:41] LABS: Folate > 20.0 ng/mL (2.76-20.0); Vitamin B12 616 pg/mL (239-931)
== END ==
PROVIDERS: PCP Family Medicine; Referring Provider Family Medicine; Visit Provider Family Medicine
DX: I10 Essential (primary) hypertension (principal); J44.1 Chronic obstructive pulmonary disease with (acute) exacerbation; R06.02 Shortness of breath; E61.1 Iron deficiency; D64.9 Anemia, unspecified; E53.8 Deficiency of other specified B group vitamins; R06.00 Dyspnea, unspecified
CPT/HCPCS: 36415; 80053; 82607; 82746; 83540; 83550; 85025; 85045

== ENCOUNTER → 2023-04-02 11:06 | Outpatient (CLI) | payer MEDICARE, MEDICAID, SELFPAY ==
[2022-11-18 19:35] VITALS: BMI 23.6
--- NOTE | 2023-04-02 11:08 | DI.CT.S_ITS ---
PROCEDURE: CT CHEST WO CON INDICATIONS: PULMONARY NODULES TECHNIQUE: Noncontrast 5 mm thick sections acquired from the pulmonary apices to the posterior costophrenic angles. 1 mm lung window, 5 mm thick coronal and sagittal and 7 mm axial MIP reformats were then acquired. For radiation dose reduction, the following was used: automated exposure control, adjustment of mA and/or kV according to patient size. COMPARISON: [facility], CT, CT ANGIO CHEST PE PROTOCOL, 01/28/2022, 0:57. [facility], CT, CT CHEST WO CON, 11/08/2020, 13:41. FINDINGS: Image quality: Excellent. Lungs and pleura: Severe centrilobular emphysema. Platelike atelectasis, anterior left upper lobe, resulting in a masslike appearance on axial image 143/3, but clearly noted to represent atelectasis on sagittal image 57/5. Bronchiectasis extending to a unchanged small thick-walled cavity in the right upper lobe, unchanged. Reference images 111-114 of series 3. Unchanged somewhat thick-walled small cavity, posterior lateral right upper lobe, image 126/3. No acute air space opacities. Bilateral areas of bronchial thickening. No definite developing areas which are suspicious for malignancy. No pleural effusions or pneumothorax. Central and peripheral airways are patent and normal in caliber. Mediastinum: Heart size is normal. No pericardial effusion. No mediastinal adenopathy by size criteria. Thoracic aorta and central pulmonary arteries are normal in size. Esophagus is normal in caliber. No hiatal hernia. Bones and chest wall: No suspicious bony lesions. No vertebral body compression fractures. No axillary or supraclavicular adenopathy by size criteria. Thyroid gland is unremarkable . Abdomen: Visualized upper abdominal solid organs and bowel loops appear normal in the absence of contrast. IMPRESSION: 1. Severe centrilobular emphysema. 2. Stable areas of bronchial wall thickening and stable small thick-walled cavitary areas. 3. A focal platelike area of atelectasis in the left upper lobe results in a masslike area on axial imaging. This, however, represents platelike atelectasis. 4. No developing areas which are suspicious for malignancy. Comment: Consider yearly screening lung CT. Dictated by: Bay Nguyen M.D. on 04/03/2023 at 8:02 Approved by: Bay Nguyen M.D. on 04/03/2023 at 8:18
== END ==
PROVIDERS: PCP Family Medicine; Referring Provider Internal Medicine Pulmonary Disease; Visit Provider Internal Medicine Pulmonary Disease
DX: R91.8 Other nonspecific abnormal finding of lung field (principal); J43.2 Centrilobular emphysema; J98.11 Atelectasis
CPT/HCPCS: 71250

== ENCOUNTER → 2023-05-07 15:25 | Outpatient (CLI) | payer MEDICARE, MEDICAID, SELFPAY ==
[2022-11-18 19:35] VITALS: BMI 23.6
[2023-05-07 16:06] LABS: Add Manual Diff / Slide Review NO; Basophils Absolute Auto 100 /uL (0-100); Basophils Percent Auto 0.6 % (0-2); Eosinophils Absolute Auto 100 /uL (0-450); Eosinophils Percent Auto 0.6 % (2-4); Hematocrit 38.8 % (41-53); Hemoglobin 12.4 g/dL (13.5-17.5); Lymphocytes Absolute Auto 1100 /uL (1100-4500); Lymphocytes Percent Auto 10.9 % (25-40); Mean Corpuscular HGB Conc 31.9 % (30-36); Mean Corpuscular Hemoglobin 26.9 PG (26-34); Mean Corpuscular Volume 84.4 fL (80-100); Monocytes Absolute Auto 200 /uL (0-900); Monocytes Percent Auto 2.1 % (3-14); Neutrophils Absolute Auto 9000 /uL (1500-7000); Neutrophils Percent Auto 85.8 % (50-75); Platelet Count 158 X10^3/uL (150-400); Red Blood Cell Count 4.59 X10^6/uL (4.5-5.9); Red Cell Distribution Width 16.2 % (11.6-14.8); White Blood Cell Count 10.5 X10^3/uL (4.5-11.0)
[2023-05-07 16:14] LABS: Hemoglobin A1C% w Est Avg Glu 5.1 % (4.0-6.0)
[2023-05-07 16:19] LABS: Alanine Aminotransferase 21 IU/L (<50); Albumin Globulin Ratio 1.3 (1.0-2.8); Alkaline Phosphatase 54 U/L (38-126); Aspartate Aminotransferase 26 IU/L (17-59); BUN Creatinine Ratio 22.9 (6-22); Bilirubin Total 0.1 mg/dL (0.2-1.3); Blood Urea Nitrogen 22 mg/dL (9-20); Calcium 9.8 mg/dL (8.4-10.2); Chloride 99 mmol/L (98-107); Estimated Glomerular Filt Rate > 60 mL/min (>60); Glucose 113 mg/dL (80-110); HEMOLYSIS < 15 (0-50); Potassium 4.5 mmol/L (3.4-5.1); Sodium 140 mmol/L (137-145)
[2023-05-07 16:25] LABS: HEMOLYSIS < 15 (0-50); Iron 155 ug/dL (49-181)
[2023-05-07 16:29] LABS: Carbon Dioxide 38 mmol/L (22-32)
[2023-05-07 16:35] LABS: Percent Iron Saturation 39 % (20-50); Total Iron Binding Capacity 397 ug/dL (261-462); Transferrin 318 mg/dL (206-381)
[2023-05-07 17:06] LABS: Vitamin B12 943 pg/mL (239-931)
== END ==
PROVIDERS: PCP Family Medicine; Referring Provider Family Medicine; Visit Provider Family Medicine
DX: D64.9 Anemia, unspecified (principal); R73.03 Prediabetes; J44.1 Chronic obstructive pulmonary disease with (acute) exacerbation; I10 Essential (primary) hypertension
CPT/HCPCS: 36415; 80053; 82607; 83036; 83540; 83550; 85025

== ENCOUNTER 2023-05-28 05:21 | Emergency (ER) | payer MEDICARE, MEDICAID, SELFPAY ==
[2022-11-18 19:35] VITALS: BMI 23.6
[2023-05-28 05:24] VITALS: PULSE 93; O2SAT 95
--- NOTE | 2023-05-28 05:29 | DI.RAD.S_ITS ---
PROCEDURE: XR CHEST 1V INDICATIONS: Shortness of breath TECHNIQUE: One view of the chest was acquired. COMPARISON: [facility], CR, XR CHEST 1V, 01/17/2023, 7:05. [facility], CR, XR CHEST 2V, 01/15/2023, 14:50. FINDINGS: Surgical changes and devices: None. Lungs and pleura: Spiculated opacity within right upper lung field. Mediastinum: Mediastinal contours appear normal. Heart size is normal. Bones and chest wall: No suspicious bony lesions. Overlying soft tissues appear unremarkable. IMPRESSION: Spiculated opacity within the right upper lung field. Recommend correlation with dedicated CT of the chest for further evaluation and to exclude cavitary lesions. Findings are concordant with preliminary interpretation provided by [facility]. Dictated by: Nolberto Burton M.D. on 05/28/2023 at 8:17 Approved by: Nolberto Burton M.D. on 05/28/2023 at 8:18
[2023-05-28 05:30] VITALS: BP 142/76; O2SAT 97
--- NOTE | 2023-05-28 05:30 | ED.SOB ---
HPI - SOB/Dyspnea General Chief Complaint: Shortness of Breath/Dyspnea Stated Complaint: short of breath Time Seen by Provider: 05/28/23 05:22 Source: patient, EMS, RN notes reviewed and old records reviewed Mode of arrival: EMS Limitations: no limitations History of Present Illness HPI Narrative: This is a 62-year-old male with history of COPD on 2 L home O2, hypertension, GERD with increasing shortness of breath over the past several days. Patient states he had some upper respiratory congestion a couple days ago but that it resolved after 2 days. He denies any fevers or chills. States no productive sputum no chest pain or pressure. States he has some nausea yesterday and took an ondansetron. None today. No vomiting. No abdominal pain. He has been constipated but passing gas. Has noted some urinary frequency per relates that may also be having trouble getting to the bathroom because of his shortness of breath. Patient's fate more fatigued or weak this evening in general. Patient states he is on 10 mg prednisone daily. Has not had any other new changes recently to his medications. He would you do zone albuterol at home without much improvement. He did receive a DuoNeb with EMS EN route. He was 92% on room air initially with EMS but had work of breathing and they initiated the neb. patient has multiple known allergies states he can tolerate Solu-Medrol without issue. Does use tobacco daily, occasional alcohol, no recreational drugs. Related Data Home Medications Medication Instructions Recorded Confirmed acetaminophen 325 mg tablet 1 dose PO PRN PRN pain 12/29/18 05/07/23 ibuprofen 200 mg tablet 1 dose PO PRN PRN pain 12/29/18 05/07/23 magnesium hydroxide 400 mg/5 mL 1 dose PO PRN PRN Indigestion 12/29/18 05/07/23 oral suspension aspirin 81 mg tablet 81 mg PO DAILY 12/30/20 05/07/23 Previous Rx's Medication Instructions Recorded albuterol sulfate 90 mcg/actuation See Rx Instructions .Route 05/04/19 aerosol inhaler (Ventolin HFA) .COMPLEX #18 grams Disabled Parking Permit #1 ea 06/24/19 nitroglycerin 0.3 mg sublingual 0.3 mg sublingual Q5-15M PRN chest 01/23/21 tablet pain #20 tabs tiotropium bromide 18 mcg capsule 18 mcg inhalation DAILY #90 08/12/21 with inhalation device (Spiriva inhalations with HandiHaler) ipratropium 0.5 mg-albuterol 3 mg 3 ml inhalation BID PRN wheezing/ 01/24/22 (2.5 mg base)/3 mL nebulization SOB #90 mL soln ipratropium 0.5 mg-albuterol 3 mg 3 ml inhalation Q4-6H PRN 01/26/22 (2.5 mg base)/3 mL nebulization shortness of breath or wheezing soln #90 mL mometasone-formoterol HFA 200 See Rx Instructions .Route 05/21/22 mcg-5 mcg/actuation aerosol .COMPLEX #13 grams inhaler (Dulera) montelukast 10 mg tablet 10 mg PO QPM #90 tabs 09/05/22 prednisone 20 mg tablet See Rx Instructions .Route 09/11/22 .COMPLEX #90 tabs benzonatate 100 mg capsule 100 mg PO BID-TID #270 caps 10/02/22 prednisone 20 mg tablet See Rx Instructions .Route 11/21/22 .COMPLEX #13 tabs prednisone 10 mg tablet See Rx Instructions .Route 12/18/22 .COMPLEX #30 tabs prednisone 10 mg tablet 10 mg PO DAILY #30 tabs 01/17/23 simvastatin 20 mg tablet 20 mg PO DAILY #90 tabs 01/26/23 ferrous gluconate 324 mg (38 mg 324 mg PO DAILY #90 tabs 02/06/23 iron) tablet nystatin 100,000 unit/mL oral 5 ml PO QID #200 mL 04/22/23 suspension clonazepam 0.5 mg tablet 0.5 mg PO BID #60 tabs 05/21/23 azithromycin 250 mg tablet See Rx Instructions PO .COMPLEX #6 05/28/23 tabs prednisone 10 mg tablets in a dose See Rx Instructions PO .COMPLEX 05/28/23 pack #27 ea Allergies Allergy/AdvReac Type Severity Reaction Status Date / Time cinnamon [CINNAMON] Allergy Severe RESP Verified 05/07/23 14:50 PROBLEMS AND SWELLING Sulfa (Sulfonamide Allergy Severe anaphylacti Verified 05/07/23 14:50 Antibiotics) c [SULFA (SULFONAMIDE ANTIBIOTICS)] fluticasone [FLUTICASONE] Allergy Intermediate FEELS Verified 05/07/23 14:50 LIKE FIRE IN THE LUNGS trimethoprim [TRIMETHOPRIM] Allergy Unknown Patient Verified 05/07/23 14:50 can't remember codeine [CODEINE] AdvReac Intermediate violent Verified 05/07/23 14:50 doxycycline [DOXYCYCLINE] AdvReac Mild N/V Verified 05/07/23 14:50 dextromethorphan AdvReac Verified 05/07/23 14:50 fentanyl AdvReac Verified 05/07/23 14:50 Review of Systems Review of Systems ROS Unobtainable: All systems reviewed & are unremarkable except as noted in HPI and below Patient History Medical History Ventricular tachycardia (paroxysmal) Anemia Palpitations GERD with stricture HTN (hypertension) Insomnia (~2015) Hyperlipidemia (~2015) Anxiety (~2015) COPD (chronic obstructive pulmonary disease) (~2013) Asthma (Unknown) TIA (transient ischemic attack) (05/2014) Hematuria (~2014) Surgical History No pertinent past surgical history Family History Mother Age: 84 Hypertension Sister Age: 67 Cancer Social History household members: none Smoking Status: Current some day smoker Tobacco: How many years used: 47 quit status: considering quitting second hand exposure: No alcohol intake: former substance use type: does not use Smoking Status: Current some day smoker tobacco type: cigarettes alcohol intake frequency: 0-2 drinks per day Substance Use Type: does not use Exam Narrative Exam Narrative: GEN: Elderly appearing male, alert and oriented x 3, patient appears to be in mild distress. HEENT: Atraumatic, pupils are equal round reactive to light, extraocular movements are intact, nares are clear, there is no conjunctival pallor. Throat is clear without any exudates, erythema, tonsillar enlargement or uvular deviation HEART: Regular rate and rhythm without murmur, clicks, rubs. LUNGS:Lungs decreased bilaterally, mild wheeze in the bases, no rales, crackles, chest moves symmetrically, mild tachypnea but able to speak in full sentences. ABD:bowel sounds normal, soft, non-tender, no guarding, rebound, rigidity, no masses noted, no hepatosplenomegaly :No CVA tenderness MSCL: Non-tender, no muscle atrophy, muscles strength 5/5 upper and lower extremities, full range of motion, normal gait NEURO:CN 2-12 intact, sensation normal SKIN: No rash, erythema or other skin changes noted Initial Vital Signs Initial Vital Signs: Vital Signs Pulse Rate 93 H 05/28/23 05:24 Pulse Oximetry 95 05/28/23 05:24 Course Orders Ordered: Discontinued Medications Albuterol/Ipratropium (Albuterol/Ipratropium 3 Ml Ampul) 3 ml INH NOW ONE Stop: 05/28/23 05:30 Last Admin: 05/28/23 05:35 Dose: 3 ml Documented By: LESLY Azithromycin (Azithromycin 250 Mg Tablet) 500 mg PO NOW ONE Stop: 05/28/23 06:47 Last Admin: 05/28/23 06:54 Dose: 500 mg Documented By: CABRERA Methylprednisolone (Methylprednisolone 125 Mg/2 Ml Vial) 125 mg IV NOW ONE Stop: 05/28/23 05:30 Last Admin: 05/28/23 05:34 Dose: 125 mg Documented By: LESLY Vital Signs Vital signs: Vital Signs - 8 hr 05/28/23 05:24 05/28/23 05:30 05/28/23 05:30 Temperature Pulse Rate 93 H Respiratory Rate Blood Pressure 142/76 H Pulse Oximetry 95 97 Oxygen Delivery Method Nasal Cannula Oxygen Flow Rate 2 05/28/23 05:33 05/28/23 06:00 05/28/23 06:00 Temperature 97.8 F Pulse Rate 87 83 Respiratory Rate 22 20 Blood Pressure 142/76 H 134/67 Pulse Oximetry 94 96 Oxygen Delivery Method Nasal Cannula Nasal Cannula Oxygen Flow Rate 2 2 MDM - SOB/Dyspnea Lab Data 05/28/23 05:52 05/28/23 05:52 Labs: Lab Results 05/28/23 Range/Units 05:52 WBC 8.5 (4.5-11.0) X10^3/uL RBC 4.46 L (4.5-5.9) X10^6/uL Hgb 12.2 L (13.5-17.5) g/dL Hct 37.9 L (41-53) % MCV 85.0 (80-100) fL MCH 27.3 (26-34) PG MCHC 32.2 (30-36) % RDW 14.7 (11.6-14.8) % Plt Count 239 (150-400) X10^3/uL Neut % (Auto) 59.7 (50-75) % Lymph % (Auto) 31.2 (25-40) % Wagoner % (Auto) 7.2 (3-14) % Eos % (Auto) 1.5 L (2-4) % Baso % (Auto) 0.4 (0-2) % Neut # (Auto) 5100 (8693-5581) /uL Lymph # (Auto) 2700 (1456-9903) /uL Wagoner # (Auto) 600 (0-900) /uL Eos # (Auto) 100 (0-450) /uL Baso # (Auto) 0 (0-100) /uL Sodium 140 (137-145) mmol/L Potassium 4.0 (3.4-5.1) mmol/L Chloride 99 (98-107) mmol/L Carbon Dioxide 36 H (22-32) mmol/L BUN 21 H (9-20) mg/dL Creatinine 0.93 (0.66-1.25) mg/dL Estimated GFR > 60 (>60) mL/min BUN/Creatinine Ratio 22.6 H (6-22) Glucose 96 (80-110) mg/dL Calcium 10.0 (8.4-10.2) mg/dL Total Bilirubin 0.3 (0.2-1.3) mg/dL AST 25 (17-59) IU/L ALT 18 (<50) IU/L Alkaline Phosphatase 56 (38-126) U/L Total Creatine Kinase 35 L (55-170) U/L Troponin I < 0.012 (0.01-0.034) ng/mL NT-Pro-B Natriuret Pep 91 (<125) pg/mL Total Protein 7.6 (6.3-8.2) g/dL Albumin 4.0 (3.5-5.0) g/dL Globulin 3.6 (1.7-4.1) g/dL Albumin/Globulin Ratio 1.1 (1.0-2.8) Imaging Data Chest x-ray: Radiologist's Impression: New spiculated opacity right upper lobe correlate with dedicated CT of the chest, cavitary lesion needs to be excluded intravenous contrast is preferred but not mandatory. Stable increased lung volumes. No pneumothorax or pleural effusion. Heart size normal. No passive venous congestion. No midline shift or tracheal deviation. No acute fracture. ECG Data Attestation: I personally reviewed and interpreted this ECG as follows: Prior ECG tracings: available for review Interpretation: Sinus rhythm rate 88 WI 142 QRS of [address] elevation depression appreciated patient's EKG appears similar to prior from 01/17/2023 although does have what appears to be some motion artifact. MDM Narrative Medical decision making narrative: 62-year-old male with COPD normally on 2 L home O2. Patient may have had a recent upper respiratory infection though he states that has been improving kicking off his symptoms. He is on prednisone 10 mg daily was using his albuterol at home without much improvement DuoNeb with EMS seemed to be quite helpful for his work of breathing and he feels improved but does feel somewhat tight still. He is currently 97% 2 L during initial evaluation with minimal work of breathing. Plan for labs, EKG, chest x-ray. EKG shows no acute change from prior, labs show stable anemia with a hemoglobin 12 consistent with from prior from 05/07 and improved from 8.4 in 721 white count of 8.5 appropriate platelets no leftward shift. Patient's BNP, troponin, creatinine other labs are all similar to priors. No significant change. Chest x-ray shows what appears to be a new spiculated opacity right upper lobe compared to x-ray from 01/17/2023 the patient had a dedicated CT chest without contrast in 04/02/2023 which showed severe centrilobular emphysema and platelike atelectasis anterior left upper lobe resulting in masslike appearance but clearly noted represent atelectasis bronchiectasis extended unchanged small thick-walled cavity in the right upper lobe unchanged, unchanged somewhat thick-walled small cavity posterolateral right upper lobe no acute airspace opacities. Bilateral areas of bronchial wall thickening. No developing which were suspicious for malignancy at that time. Was recommended have annual yearly screening lung CT. Patient was given additional DuoNeb, Solu-Medrol and on recheck he continues to feel improved. Reviewed patient's CT findings chest x-ray findings may be similar to those from CT. After discussion patient would prefer to hold off on repeat CT imaging we discussed that there maybe that location seen on the CT was not appreciated on January x-ray. Patient is following with pulmonology [place] and he prefers to follow up with them he does have plan annual screening for CT of his chest. You to patient's severe COPD was covered with antibiotics, steroid taper patient states plenty of medication at home. Discussed return precautions. Discharge Plan Departure Patient Disposition: Home Clinical Impression: Acute exacerbation of chronic obstructive pulmonary disease Activity Restrictions/Additional Instructions: Please follow up with your pulmonology team as needed. Your chest x-ray today did show a spiculated nodule in the right upper lung but this also appears consistent with an area of change of your CT March. Continue your home meds as prescribed. Take steroids until completed. Take antibiotics until completed. Prescription sent to [facility] Please return for fevers new or worsening chest pain, shortness of breath, increasing work of breathing, lightheadedness or passing out, persistent nausea or vomiting or other new or concerning changes. Prescriptions: New prednisone 10 mg tablets,dose pack See Rx Instructions .ROUTE .COMPLEX Qty: 27 0RF Rx Instructions: Take 40 mg p.o. daily x3 days, then 30 mg p.o. daily x3 days, then 20 mg p.o. daily x3 days, then return to your usual 10 mg daily azithromycin 250 mg tablet See Rx Instructions .ROUTE .COMPLEX Qty: 6 0RF Rx Instructions: For 250 mg dose pack: take 500 mg today (day 1), then 250 mg for 4 days (days 2-5) No Action albuterol sulfate [Ventolin HFA] 90 mcg/actuation HFA aerosol inhaler See Rx Instructions .ROUTE .COMPLEX Qty: 18 3RF Dose Instruction: INHALE 1 - 2 PUFFS EVERY 4 HOURS NEEDED FOR SHORTNESS OF BREATH OR WHEEZING Rx Instructions: INHALE 1 - 2 PUFFS EVERY 4 HOURS NEEDED FOR SHORTNESS OF BREATH OR WHEEZING (DME) Disabled Parking Permit Qty: 1 0RF Rx Instructions: Patient qualifies for permanent disabled parking permit. ipratropium-albuterol 0.5 mg-3 mg(2.5 mg base)/3 mL solution for nebulization 3 ml INHALATION BID PRN (Reason: wheezing/ SOB) Qty: 90 11RF Dulera 200-5 mcg/actuation HFA aerosol inhaler See Rx Instructions .ROUTE .COMPLEX Qty: 13 6RF Dose Instruction: INHALE 2 PUFFS BY MOUTH TWICE DAILY Rx Instructions: INHALE 2 PUFFS BY MOUTH TWICE DAILY montelukast 10 mg tablet 10 mg PO QPM Qty: 90 3RF benzonatate 100 mg capsule 100 mg PO BID-TID Qty: 270 1RF simvastatin 20 mg tablet 20 mg PO DAILY Qty: 90 3RF ferrous gluconate 324 mg (38 mg iron) tablet 324 mg PO DAILY Qty: 90 1RF nystatin 100,000 unit/mL suspension 5 ml PO QID Qty: 200 1RF clonazepam 0.5 mg tablet 0.5 mg PO BID Qty: 60 1RF Spiriva with HandiHaler 18 mcg capsule, w/inhalation device 18 mcg inhalation DAILY Qty: 90 3RF prednisone 20 mg tablet See Rx Instructions .ROUTE .COMPLEX Qty: 90 1RF Dose Instruction: TAKE 1 TABLET (20 MG) BY MOUTH DAILY FOR COPD Rx Instructions: TAKE 1 TABLET (20 MG) BY MOUTH DAILY FOR COPD acetaminophen 325 mg Tablet 1 dose PO PRN PRN (Reason: pain) magnesium hydroxide 400 mg/5 mL Suspension 1 dose PO PRN PRN (Reason: Indigestion) Patient Comments: patient states uses often Mylanta ibuprofen 200 mg Tablet 1 dose PO PRN PRN (Reason: pain) aspirin 81 mg Tablet 81 mg PO DAILY nitroglycerin 0.3 mg tablet, sublingual 0.3 mg sublingual Q5-15M PRN (Reason: chest pain) Qty: 20 0RF Rx Instructions: do not exceed 3 doses per episode ipratropium-albuterol 0.5 mg-3 mg(2.5 mg base)/3 mL solution for nebulization 3 ml INHALATION Q4-6H PRN (Reason: shortness of breath or wheezing) Qty: 90 0RF prednisone 20 mg tablet See Rx Instructions .ROUTE .COMPLEX Qty: 13 0RF Rx Instructions: 60 mg (3 pills) daily for 2 days, then 40 mg (2 pills) daily for 2 days, then 20mg (1 pill) daily for 2 days then 10mg (1/2 pill) for 2 days then stop prednisone 10 mg tablet 10 mg PO DAILY Qty: 30 0RF Rx Instructions: day 1-3: 40 mg once a day day 4-6: 30 mg once a day day 7-9: 20 mg once a day day 10-12: 10 mg once a day prednisone 10 mg tablet See Rx Instructions .ROUTE .COMPLEX Qty: 30 0RF Rx Instructions: Day 1,2,3: 40mg PO Daily Day 4,5,6: 30mg PO Daily Day 7,8,9: 20mg PO Daily Day 10,11,12: 10mg PO Daily #30 Referrals: Saqib Oliva DO [Primary Care Provider] - Stand Alone Forms: Patient Portal/API
[2023-05-28 05:33] VITALS: BP 142/76; PULSE 87; RESP 22; TEMP 36.6; O2SAT 94; BMI 24.3
[2023-05-28] MEDS: methylPREDNISolone 125 MG/2 ML VIAL IV (05:34)
[2023-05-28] MEDS: ALBUTEROL/IPRATROPIUM 3 ML AMPUL INH (05:35)
[2023-05-28 06:00] VITALS: BP 134/67; PULSE 83; RESP 20; O2SAT 96
[2023-05-28 06:03] LABS: Add Manual Diff / Slide Review NO; Basophils Absolute Auto 0 /uL (0-100); Basophils Percent Auto 0.4 % (0-2); Eosinophils Absolute Auto 100 /uL (0-450); Eosinophils Percent Auto 1.5 % (2-4); Hematocrit 37.9 % (41-53); Hemoglobin 12.2 g/dL (13.5-17.5); Lymphocytes Absolute Auto 2700 /uL (1100-4500); Lymphocytes Percent Auto 31.2 % (25-40); Mean Corpuscular HGB Conc 32.2 % (30-36); Mean Corpuscular Hemoglobin 27.3 PG (26-34); Monocytes Absolute Auto 600 /uL (0-900); Monocytes Percent Auto 7.2 % (3-14); Neutrophils Absolute Auto 5100 /uL (1500-7000); Neutrophils Percent Auto 59.7 % (50-75); Platelet Count 239 X10^3/uL (150-400); Red Blood Cell Count 4.46 X10^6/uL (4.5-5.9); Red Cell Distribution Width 14.7 % (11.6-14.8); White Blood Cell Count 8.5 X10^3/uL (4.5-11.0)
[2023-05-28 06:21] LABS: Alanine Aminotransferase 18 IU/L (<50); Albumin Globulin Ratio 1.1 (1.0-2.8); Alkaline Phosphatase 56 U/L (38-126); Aspartate Aminotransferase 25 IU/L (17-59); BUN Creatinine Ratio 22.6 (6-22); Bilirubin Total 0.3 mg/dL (0.2-1.3); Blood Urea Nitrogen 21 mg/dL (9-20); Chloride 99 mmol/L (98-107); Creatine Kinase 35 U/L (55-170); Estimated Glomerular Filt Rate > 60 mL/min (>60); Globulin 3.6 g/dL (1.7-4.1); Glucose 96 mg/dL (80-110); HEMOLYSIS < 15 (0-50); Sodium 140 mmol/L (137-145); Total Protein 7.6 g/dL (6.3-8.2)
[2023-05-28 06:28] LABS: Carbon Dioxide 36 mmol/L (22-32)
[2023-05-28 06:30] VITALS: BP 142/65; PULSE 84; RESP 21; O2SAT 97
[2023-05-28 06:33] LABS: NT-proBNP (BNP-Adult 18+) 91 pg/mL (<125); Troponin I < 0.012 ng/mL (0.01-0.034)
[2023-05-28] MEDS: AZITHROMYCIN 250 MG TABLET 500 MG PO (06:54)
[2023-05-28 06:58] VITALS: TEMP 36.4
== END 2023-05-28 07:01 | disposition home or self-care (01) ==
PROVIDERS: Emergency Provider Emergency Medicine; PCP Family Medicine
DX: J44.1 Chronic obstructive pulmonary disease with (acute) exacerbation (principal)
CPT/HCPCS: 36415; 71045; 80053; 82550; 83880; 84484; 85025; 93005; 93010; 96374; 99284; 99285; J2930

== ENCOUNTER 2023-07-10 07:56 | Emergency (ER) | payer MEDICARE, MEDICAID, SELFPAY ==
[2022-11-18 19:35] VITALS: BMI 23.6
[2023-07-10] VITALS (11 sets, daily range): BP systolic 123–135; BP diastolic 59–65; PULSE 82–94; RESP 16–29; TEMP 36.4; O2SAT 95–100; BMI 25.8
--- NOTE | 2023-07-10 07:58 | DI.RAD.S_ITS ---
PROCEDURE: XR CHEST 1V INDICATIONS: Shortness of breath TECHNIQUE: One view of the chest was acquired. COMPARISON: [facility], CR, XR CHEST 1V, 01/17/2023, 7:05. [facility], CR, XR CHEST 1V, 05/28/2023, 5:32. FINDINGS: Surgical changes and devices: None. Lungs and pleura: Overlying EKG leads limit evaluation. Slightly decreased appearance of spiculated opacity in the right upper lobe. No focal pulmonary consolidation. No pleural effusions or pneumothorax. Mediastinum: Mediastinal contours appear normal. Heart size is normal. Bones and chest wall: No suspicious bony lesions. Overlying soft tissues appear unremarkable. IMPRESSION: 1. No acute cardiopulmonary process. 2. Slightly decreased appearance of spiculated opacity in the right upper lobe. This appears similar to chest radiograph dated January 17, 2023. Dictated by: Viri Adams M.D. on 07/10/2023 at 8:20 Approved by: Viri Adams M.D. on 07/10/2023 at 8:23
--- NOTE | 2023-07-10 07:59 | ED.GENADULT ---
HPI - General Adult General Chief complaint: Shortness of Breath/Dyspnea Stated complaint: COPD; SOB Time Seen by Provider: 07/10/23 08:00 History of Present Illness HPI narrative: 62-year-old gentleman with a history of oxygen-dependent COPD, 2 L of oxygen at home, hypertension, prior stroke, in a wheelchair and lives at home independently. Became significantly short of breath this morning and was too dyspneic and felt that his lungs were too tight to transfer to his wheelchair to get to his nebulizer or MDI. 911 was called. Initial sats were 93%. He was given a DuoNeb and 2 albuterol treatments EN route [facility] the [facility] with sats at 98% just finishing his last albuterol nebulized treatment. He denies any recent fevers, change to his cough, chest pain, vomiting diarrhea. Related Data Home Medications Medication Instructions Recorded Confirmed acetaminophen 325 mg tablet 1 dose PO PRN PRN pain 12/29/18 05/07/23 ibuprofen 200 mg tablet 1 dose PO PRN PRN pain 12/29/18 05/07/23 magnesium hydroxide 400 mg/5 mL 1 dose PO PRN PRN Indigestion 12/29/18 05/07/23 oral suspension aspirin 81 mg tablet 81 mg PO DAILY 12/30/20 05/07/23 Previous Rx's Medication Instructions Recorded albuterol sulfate 90 mcg/actuation See Rx Instructions .Route 05/04/19 aerosol inhaler (Ventolin HFA) .COMPLEX #18 grams Disabled Parking Permit #1 ea 06/24/19 nitroglycerin 0.3 mg sublingual 0.3 mg sublingual Q5-15M PRN chest 01/23/21 tablet pain #20 tabs tiotropium bromide 18 mcg capsule 18 mcg inhalation DAILY #90 08/12/21 with inhalation device (Spiriva inhalations with HandiHaler) ipratropium 0.5 mg-albuterol 3 mg 3 ml inhalation BID PRN wheezing/ 01/24/22 (2.5 mg base)/3 mL nebulization SOB #90 mL soln ipratropium 0.5 mg-albuterol 3 mg 3 ml inhalation Q4-6H PRN 01/26/22 (2.5 mg base)/3 mL nebulization shortness of breath or wheezing soln #90 mL mometasone-formoterol HFA 200 See Rx Instructions .Route 05/21/22 mcg-5 mcg/actuation aerosol .COMPLEX #13 grams inhaler (Dulera) montelukast 10 mg tablet 10 mg PO QPM #90 tabs 09/05/22 prednisone 20 mg tablet See Rx Instructions .Route 09/11/22 .COMPLEX #90 tabs benzonatate 100 mg capsule 100 mg PO BID-TID #270 caps 10/02/22 prednisone 20 mg tablet See Rx Instructions .Route 11/21/22 .COMPLEX #13 tabs prednisone 10 mg tablet See Rx Instructions .Route 12/18/22 .COMPLEX #30 tabs prednisone 10 mg tablet 10 mg PO DAILY #30 tabs 01/17/23 simvastatin 20 mg tablet 20 mg PO DAILY #90 tabs 01/26/23 ferrous gluconate 324 mg (38 mg 324 mg PO DAILY #90 tabs 02/06/23 iron) tablet nystatin 100,000 unit/mL oral 5 ml PO QID #200 mL 04/22/23 suspension clonazepam 0.5 mg tablet 0.5 mg PO BID #60 tabs 05/21/23 azithromycin 250 mg tablet See Rx Instructions PO .COMPLEX #6 05/28/23 tabs prednisone 10 mg tablets in a dose See Rx Instructions PO .COMPLEX 05/28/23 pack #27 ea Allergies Allergy/AdvReac Type Severity Reaction Status Date / Time cinnamon [CINNAMON] Allergy Severe RESP Verified 05/07/23 14:50 PROBLEMS AND SWELLING Sulfa (Sulfonamide Allergy Severe anaphylacti Verified 05/07/23 14:50 Antibiotics) c [SULFA (SULFONAMIDE ANTIBIOTICS)] fluticasone [FLUTICASONE] Allergy Intermediate FEELS Verified 05/07/23 14:50 LIKE FIRE IN THE LUNGS trimethoprim [TRIMETHOPRIM] Allergy Unknown Patient Verified 05/07/23 14:50 can't remember codeine [CODEINE] AdvReac Intermediate violent Verified 05/07/23 14:50 doxycycline [DOXYCYCLINE] AdvReac Mild N/V Verified 05/07/23 14:50 dextromethorphan AdvReac Verified 05/07/23 14:50 fentanyl AdvReac Verified 05/07/23 14:50 Review of Systems Review of Systems Narrative: Pertinent positive and negative findings as per HPI Patient History Medical History Ventricular tachycardia (paroxysmal) Anemia Palpitations GERD with stricture HTN (hypertension) Insomnia (~2015) Hyperlipidemia (~2015) Anxiety (~2015) COPD (chronic obstructive pulmonary disease) (~2013) Asthma (Unknown) TIA (transient ischemic attack) (05/2014) Hematuria (~2014) Surgical History No pertinent past surgical history Family History Mother Age: 84 Hypertension Sister Age: 67 Cancer Social History household members: none Smoking Status: Current some day smoker Tobacco: How many years used: 47 quit status: considering quitting second hand exposure: No alcohol intake: former substance use type: does not use Smoking Status: Current some day smoker tobacco type: cigarettes alcohol intake frequency: 0-2 drinks per day Substance Use Type: does not use Exam Initial Vital Signs Initial Vital Signs: Vital Signs Temperature 97.5 F L 07/10/23 08:05 Pulse Rate 94 H 07/10/23 08:05 Respiratory Rate 29 H 07/10/23 08:05 Blood Pressure 134/61 07/10/23 08:05 Pulse Oximetry 98 07/10/23 08:05 Oxygen Delivery Method Room Air 07/10/23 08:05 General: Chronically ill-appearing, anxious with wheezing but improving rapidly. Able to give a complete and coherent history. HEENT: Moist mucous membranes, normal sclera with reactive pupils, Neck: No JVD, supple Respiratory: Lungs with minor scattered wheeze in upper lung silva after 3 nebulizers given EN route to the emergency department Cardiac: Regular rate and rhythm no murmurs no bruits Abdomen: Soft, nontender, good bowel tones, no flank pain Skin: Warm and dry, no rashes Neurologic: Moving all extremities at his baseline level of weakness, chronically uses a wheelchair Extremities: No trauma, well perfused, no lower extremity edema Psych: Cooperative, appropriate insight and affect Course Orders Ordered: ED Orders 07/10/23 07:58 XR chest 1V Stat EKG-12 Lead Stat Measure peak expiratory flow ONCE RT Consult Eval and Treat NOW 07/10/23 08:48 Complete Blood Count AUTO DIFF Stat Comprehensive Metabolic Panel Stat Lactate (Lactic Acid) Stat NT-proBNP (BNP-Adult 18+) Stat Prothrombin Time INR Stat Troponin I Stat Discontinued Medications Methylprednisolone (Methylprednisolone 125 Mg/2 Ml Vial) 125 mg IV NOW ONE Stop: 07/10/23 10:38 Last Admin: 07/10/23 10:59 Dose: 125 mg Documented By: GLENN Vital Signs Vital signs: Vital Signs - 8 hr 07/10/23 08:05 07/10/23 08:23 07/10/23 08:30 Temperature 97.5 F L Pulse Rate 94 H 83 82 Respiratory Rate 29 H 24 20 Blood Pressure 134/61 Pulse Oximetry 98 98 98 Oxygen Delivery Method Room Air Oxygen Flow Rate 07/10/23 08:30 07/10/23 09:00 07/10/23 09:00 Temperature Pulse Rate 92 H Respiratory Rate 29 H Blood Pressure 131/64 125/60 Pulse Oximetry 95 Oxygen Delivery Method Oxygen Flow Rate 07/10/23 09:30 07/10/23 09:30 07/10/23 10:00 Temperature Pulse Rate 94 H Respiratory Rate 24 Blood Pressure 135/61 123/61 Pulse Oximetry 97 Oxygen Delivery Method Nasal Cannula Oxygen Flow Rate 2 07/10/23 10:00 07/10/23 10:30 07/10/23 10:30 Temperature Pulse Rate 92 H 91 H Respiratory Rate 27 H Blood Pressure 125/63 Pulse Oximetry 96 97 Oxygen Delivery Method Oxygen Flow Rate 07/10/23 11:00 07/10/23 11:00 Temperature Pulse Rate 90 Respiratory Rate 17 Blood Pressure 127/65 Pulse Oximetry 98 Oxygen Delivery Method Oxygen Flow Rate Medical Decision Making Lab Data 07/10/23 08:48 07/10/23 08:48 Labs: Lab Results 07/10/23 Range/Units 08:48 WBC 6.9 (4.5-11.0) X10^3/uL RBC 4.16 L (4.5-5.9) X10^6/uL Hgb 12.1 L (13.5-17.5) g/dL Hct 37.3 L (41-53) % MCV 89.8 (80-100) fL MCH 29.2 (26-34) PG MCHC 32.5 (30-36) % RDW 16.5 H (11.6-14.8) % Plt Count 162 (150-400) X10^3/uL Neut % (Auto) 64.3 (50-75) % Lymph % (Auto) 27.0 (25-40) % [place] % (Auto) 6.9 (3-14) % Eos % (Auto) 1.4 L (2-4) % Baso % (Auto) 0.4 (0-2) % Neut # (Auto) 4500 (1795-1510) /uL Lymph # (Auto) 1900 (6620-6321) /uL [place] # (Auto) 500 (0-900) /uL Eos # (Auto) 100 (0-450) /uL Baso # (Auto) 0 (0-100) /uL PT 10.3 (9.4-12.5) SECONDS INR 0.9 (0.9-1.3) Sodium 142 (137-145) mmol/L Potassium 3.8 (3.4-5.1) mmol/L Chloride 102 (98-107) mmol/L Carbon Dioxide 36 H (22-32) mmol/L BUN 17 (9-20) mg/dL Creatinine 0.86 (0.66-1.25) mg/dL Estimated GFR > 60 (>60) mL/min BUN/Creatinine Ratio 19.8 (6-22) Glucose 88 (80-110) mg/dL Lactate 1.1 (0.7-2.1) mmol/L Calcium 9.2 (8.4-10.2) mg/dL Total Bilirubin 0.4 (0.2-1.3) mg/dL AST 26 (17-59) IU/L ALT 19 (<50) IU/L Alkaline Phosphatase 49 (38-126) U/L Troponin I < 0.012 (0.01-0.034) ng/mL NT-Pro-B Natriuret Pep 46 (<125) pg/mL Total Protein 6.9 (6.3-8.2) g/dL Albumin 3.9 (3.5-5.0) g/dL Globulin 3.0 (1.7-4.1) g/dL Albumin/Globulin Ratio 1.3 (1.0-2.8) MDM Narrative Medical decision making narrative: CC: Acute dyspnea Complicating co-morbidities: COPD, oxygen and steroid dependent, mobility difficulties secondary to wheelchair use, Data collected from: patient Social determinants of health that may influence the patients condition: Lives independently, in a wheelchair Medical records reviewed: [facility] records from January and April of this year are reviewed Differential considered: Acute COPD exacerbation, acute coronary syndrome, congestive heart failure, viral syndrome Exam documented above, pertinent findings include: Chronically ill-appearing gentleman but able to speak in full sentences no severe respiratory distress by the time of arrival in the emergency department with scattered wheeze in upper lung silva and improving air movement throughout. No signs of congestive heart failure Lab Test results independently reviewed as above. Pertinent findings: CBC is unremarkable Chemistries are reassuring Troponin is undetectable Independently reviewed EKG: Sinus rhythm at a rate of 84, poor baseline, normal intervals, no acute ischemic changes Imaging studies independently reviewed: Chest x-ray shows no acute abnormalities. Radiology read indicates that there is no change to the spiculated nodule in the right upper lobe Treatments: 125 mg of IV Solu-Medrol Discussion: Findings are reviewed patient and he is re-evaluated. He is feeling significantly improved. He believes that with the difficulty in breathing this morning he was increasingly anxious and then not able to get to his bedroom to do his nebulized treatment. He notes that he is still on 10 mg of prednisone daily. He is not complaining of fevers or cough. After to nebulizers with albuterol and 1 DuoNeb he is feeling significantly improved. Lab work is unremarkable and does not suggest alternative explanation for his findings. At this time I believe his issue is truly a COPD exacerbation with end-stage COPD. There is no indication for antibiotics, hospitalization or advanced imaging at this time. He does not need refills on any of his medications. He has a ride home. Questions are answered. I have suggested that he go up to 20 mg of prednisone for the next 3-4 days and then back to his usual 10 mg. He does have outpatient follow-up scheduled at this time. He is safe for discharge home Discharge Plan Departure Patient Disposition: Home Clinical Impression: Acute exacerbation of chronic obstructive pulmonary disease Instructions: DI for Chronic Obstructive Pulmonary Disease Activity Restrictions/Additional Instructions: Thank you for coming in today I am sorry that you had this frightening breathing episode this morning. Fortunately, your workup today is relatively reassuring. I am not seeing signs of infection, heart attack or heart attack like syndromes, no collapsed lungs and no indication for acute life-threatening issues. I did give you a large dose of Solu-Medrol, IV steroid, in the emergency department today. I would recommend that you increase your baseline prednisone to 20 mg daily for the next 3-4 days and then go back to your usual 10 mg. At this time I do not recommend any additional changes to your medications and there is no indication for adding antibiotics. If you find that you are getting worse or develop any new symptoms, please feel free to return to the emergency department for further evaluation. Prescriptions: No Action albuterol sulfate [Ventolin HFA] 90 mcg/actuation HFA aerosol inhaler See Rx Instructions .ROUTE .COMPLEX Qty: 18 3RF Dose Instruction: INHALE 1 - 2 PUFFS EVERY 4 HOURS NEEDED FOR SHORTNESS OF BREATH OR WHEEZING Rx Instructions: INHALE 1 - 2 PUFFS EVERY 4 HOURS NEEDED FOR SHORTNESS OF BREATH OR WHEEZING (DME) Disabled Parking Permit Qty: 1 0RF Rx Instructions: Patient qualifies for permanent disabled parking permit. ipratropium-albuterol 0.5 mg-3 mg(2.5 mg base)/3 mL solution for nebulization 3 ml INHALATION BID PRN (Reason: wheezing/ SOB) Qty: 90 11RF Dulera 200-5 mcg/actuation HFA aerosol inhaler See Rx Instructions .ROUTE .COMPLEX Qty: 13 6RF Dose Instruction: INHALE 2 PUFFS BY MOUTH TWICE DAILY Rx Instructions: INHALE 2 PUFFS BY MOUTH TWICE DAILY montelukast 10 mg tablet 10 mg PO QPM Qty: 90 3RF benzonatate 100 mg capsule 100 mg PO BID-TID Qty: 270 1RF simvastatin 20 mg tablet 20 mg PO DAILY Qty: 90 3RF ferrous gluconate 324 mg (38 mg iron) tablet 324 mg PO DAILY Qty: 90 1RF nystatin 100,000 unit/mL suspension 5 ml PO QID Qty: 200 1RF clonazepam 0.5 mg tablet 0.5 mg PO BID Qty: 60 1RF Spiriva with HandiHaler 18 mcg capsule, w/inhalation device 18 mcg inhalation DAILY Qty: 90 3RF prednisone 20 mg tablet See Rx Instructions .ROUTE .COMPLEX Qty: 90 1RF Dose Instruction: TAKE 1 TABLET (20 MG) BY MOUTH DAILY FOR COPD Rx Instructions: TAKE 1 TABLET (20 MG) BY MOUTH DAILY FOR COPD acetaminophen 325 mg Tablet 1 dose PO PRN PRN (Reason: pain) magnesium hydroxide 400 mg/5 mL Suspension 1 dose PO PRN PRN (Reason: Indigestion) Patient Comments: patient states uses often Mylanta ibuprofen 200 mg Tablet 1 dose PO PRN PRN (Reason: pain) aspirin 81 mg Tablet 81 mg PO DAILY nitroglycerin 0.3 mg tablet, sublingual 0.3 mg sublingual Q5-15M PRN (Reason: chest pain) Qty: 20 0RF Rx Instructions: do not exceed 3 doses per episode ipratropium-albuterol 0.5 mg-3 mg(2.5 mg base)/3 mL solution for nebulization 3 ml INHALATION Q4-6H PRN (Reason: shortness of breath or wheezing) Qty: 90 0RF prednisone 20 mg tablet See Rx Instructions .ROUTE .COMPLEX Qty: 13 0RF Rx Instructions: 60 mg (3 pills) daily for 2 days, then 40 mg (2 pills) daily for 2 days, then 20mg (1 pill) daily for 2 days then 10mg (1/2 pill) for 2 days then stop prednisone 10 mg tablet 10 mg PO DAILY Qty: 30 0RF Rx Instructions: day 1-3: 40 mg once a day day 4-6: 30 mg once a day day 7-9: 20 mg once a day day 10-12: 10 mg once a day prednisone 10 mg tablets,dose pack See Rx Instructions .ROUTE .COMPLEX Qty: 27 0RF Rx Instructions: Take 40 mg p.o. daily x3 days, then 30 mg p.o. daily x3 days, then 20 mg p.o. daily x3 days, then return to your usual 10 mg daily azithromycin 250 mg tablet See Rx Instructions .ROUTE .COMPLEX Qty: 6 0RF Rx Instructions: For 250 mg dose pack: take 500 mg today (day 1), then 250 mg for 4 days (days 2-5) prednisone 10 mg tablet See Rx Instructions .ROUTE .COMPLEX Qty: 30 0RF Rx Instructions: Day 1,2,3: 40mg PO Daily Day 4,5,6: 30mg PO Daily Day 7,8,9: 20mg PO Daily Day 10,11,12: 10mg PO Daily #30 Referrals: Saqib Oliva, [Primary Care Provider] - Stand Alone Forms: Patient Portal/API
[2023-07-10 08:56] LABS: Add Manual Diff / Slide Review NO; Basophils Absolute Auto 0 /uL (0-100); Basophils Percent Auto 0.4 % (0-2); Eosinophils Absolute Auto 100 /uL (0-450); Eosinophils Percent Auto 1.4 % (2-4); Hematocrit 37.3 % (41-53); Hemoglobin 12.1 g/dL (13.5-17.5); Lymphocytes Absolute Auto 1900 /uL (1100-4500); Mean Corpuscular HGB Conc 32.5 % (30-36); Mean Corpuscular Hemoglobin 29.2 PG (26-34); Mean Corpuscular Volume 89.8 fL (80-100); Monocytes Absolute Auto 500 /uL (0-900); Monocytes Percent Auto 6.9 % (3-14); Neutrophils Absolute Auto 4500 /uL (1500-7000); Neutrophils Percent Auto 64.3 % (50-75); Platelet Count 162 X10^3/uL (150-400); Red Blood Cell Count 4.16 X10^6/uL (4.5-5.9); Red Cell Distribution Width 16.5 % (11.6-14.8); White Blood Cell Count 6.9 X10^3/uL (4.5-11.0)
[2023-07-10 09:09] LABS: INR 0.9 (0.9-1.3); Prothrombin Time 10.3 SECONDS (9.4-12.5)
[2023-07-10 09:12] LABS: Lactate (Lactic Acid) 1.1 mmol/L (0.7-2.1)
[2023-07-10 09:14] LABS: Alanine Aminotransferase 19 IU/L (<50); Albumin 3.9 g/dL (3.5-5.0); Albumin Globulin Ratio 1.3 (1.0-2.8); Alkaline Phosphatase 49 U/L (38-126); Aspartate Aminotransferase 26 IU/L (17-59); BUN Creatinine Ratio 19.8 (6-22); Bilirubin Total 0.4 mg/dL (0.2-1.3); Blood Urea Nitrogen 17 mg/dL (9-20); Calcium 9.2 mg/dL (8.4-10.2); Carbon Dioxide 36 mmol/L (22-32); Chloride 102 mmol/L (98-107); Estimated Glomerular Filt Rate > 60 mL/min (>60); Glucose 88 mg/dL (80-110); HEMOLYSIS < 15 (0-50); Potassium 3.8 mmol/L (3.4-5.1); Sodium 142 mmol/L (137-145); Total Protein 6.9 g/dL (6.3-8.2)
[2023-07-10 09:25] LABS: NT-proBNP (BNP-Adult 18+) 46 pg/mL (<125); Troponin I < 0.012 ng/mL (0.01-0.034)
[2023-07-10] MEDS: methylPREDNISolone 125 MG/2 ML VIAL IV (10:59)
== END 2023-07-10 12:41 | disposition home or self-care (01) ==
PROVIDERS: Emergency Provider Emergency Medicine; PCP Family Medicine
DX: J44.1 Chronic obstructive pulmonary disease with (acute) exacerbation (principal); R06.02 Shortness of breath
CPT/HCPCS: 36415; 71045; 80053; 83605; 83880; 84484; 85025; 85610; 93005; 96374; 99284; 99285; J2930

== ENCOUNTER → 2023-08-03 15:05 | Outpatient (CLI) | payer MEDICARE, MEDICAID, SELFPAY ==
[2022-11-18 19:35] VITALS: BMI 23.6
[2023-08-03 17:04] LABS: Add Manual Diff / Slide Review NO; Basophils Absolute Auto 0 /uL (0-100); Basophils Percent Auto 0.1 % (0-2); Eosinophils Absolute Auto 0 /uL (0-450); Eosinophils Percent Auto 0.5 % (2-4); Hematocrit 38.6 % (41-53); Hemoglobin 12.7 g/dL (13.5-17.5); Lymphocytes Absolute Auto 800 /uL (1100-4500); Lymphocytes Percent Auto 10.1 % (25-40); Mean Corpuscular HGB Conc 32.8 % (30-36); Mean Corpuscular Hemoglobin 29.8 PG (26-34); Mean Corpuscular Volume 90.8 fL (80-100); Monocytes Absolute Auto 100 /uL (0-900); Monocytes Percent Auto 1.8 % (3-14); Neutrophils Absolute Auto 6800 /uL (1500-7000); Neutrophils Percent Auto 87.5 % (50-75); Platelet Count 171 X10^3/uL (150-400); Red Blood Cell Count 4.25 X10^6/uL (4.5-5.9); Red Cell Distribution Width 15.7 % (11.6-14.8); White Blood Cell Count 7.8 X10^3/uL (4.5-11.0)
[2023-08-03 17:28] LABS: Alanine Aminotransferase 17 IU/L (<50); Albumin 4.1 g/dL (3.5-5.0); Albumin Globulin Ratio 1.3 (1.0-2.8); Alkaline Phosphatase 57 U/L (38-126); Aspartate Aminotransferase 25 IU/L (17-59); BUN Creatinine Ratio 20.4 (6-22); Bilirubin Total 0.3 mg/dL (0.2-1.3); Blood Urea Nitrogen 19 mg/dL (9-20); Calcium 9.6 mg/dL (8.4-10.2); Carbon Dioxide 35 mmol/L (22-32); Chloride 98 mmol/L (98-107); Estimated Glomerular Filt Rate > 60 mL/min (>60); Globulin 3.2 g/dL (1.7-4.1); Glucose 118 mg/dL (80-110); HEMOLYSIS < 15 (0-50); Potassium 4.2 mmol/L (3.4-5.1); Sodium 140 mmol/L (137-145); Total Protein 7.3 g/dL (6.3-8.2)
[2023-08-03 18:18] LABS: Vitamin B12 986 pg/mL (239-931)
[2023-08-03 19:16] LABS: HEMOLYSIS < 15 (0-50)
[2023-08-03 19:17] LABS: Iron 95 ug/dL (49-181)
[2023-08-03 19:27] LABS: Percent Iron Saturation 25 % (20-50); Total Iron Binding Capacity 383 ug/dL (261-462)
[2023-08-04 10:40] LABS: Transferrin 322 mg/dL (206-381)
== END ==
LOC: LAB 15:06
PROVIDERS: PCP Family Medicine; Referring Provider Family Medicine; Visit Provider Family Medicine
DX: D64.9 Anemia, unspecified (principal)
CPT/HCPCS: 36415; 80053; 82607; 83540; 83550; 85025

== ENCOUNTER 2023-09-13 10:18 | Emergency (ER) | payer MEDICARE, MEDICAID, SELFPAY ==
[2022-11-18 19:35] VITALS: BMI 23.6
--- NOTE | 2023-09-13 10:11 | ED_ITS ---
HPI - General Adult General Chief complaint: Shortness of Breath/Dyspnea Stated complaint: SOB COPD History of Present Illness HPI narrative: 62-year-old male with history of COPD, ventricular tachycardia, anemia, GERD, hypertension, hyperlipidemia, TIA presents with fatigue and shortness of breath. He states he has been fatigued for weeks. He was last treated for a COPD exacerbation in late July with steroids and azithromycin for 5 days, though remains on 10 mg prednisone daily. He denies other antibiotics since then. In the last few days, he is become gradually more short of breath, with productive cough with change in sputum color. No hemoptysis; no blood in cough. He had mild periumbilical abdominal pain in the last few days and has history of diverticulitis, though he has no abdominal pain today. No nausea or vomiting or changes in bowels or bladder. No lightheadedness or passing out. No trauma. He denies fevers or chills. No leg swelling or pain. He took nebs before arrival which helped. No other medications given with EMS. No other new concerns. Related Data Home Medications Medication Instructions Recorded Confirmed acetaminophen 325 mg tablet 1 dose PO PRN PRN pain 12/29/18 08/06/23 ibuprofen 200 mg tablet 1 dose PO PRN PRN pain 12/29/18 08/06/23 magnesium hydroxide 400 mg/5 mL 1 dose PO PRN PRN Indigestion 12/29/18 08/06/23 oral suspension aspirin 81 mg tablet 81 mg PO DAILY 12/30/20 08/06/23 ascorbate calcium (vitamin C) 500 500 mg PO DAILY 08/06/23 08/06/23 mg tablet Previous Rx's Medication Instructions Recorded Disabled Parking Permit #1 ea 06/24/19 nitroglycerin 0.3 mg sublingual 0.3 mg sublingual Q5-15M PRN chest 01/23/21 tablet pain #20 tabs tiotropium bromide 18 mcg capsule 18 mcg inhalation DAILY #90 08/12/21 with inhalation device (Spiriva inhalations with HandiHaler) ipratropium 0.5 mg-albuterol 3 mg 3 ml inhalation BID PRN wheezing/ 01/24/22 (2.5 mg base)/3 mL nebulization SOB #90 mL soln ipratropium 0.5 mg-albuterol 3 mg 3 ml inhalation Q4-6H PRN 01/26/22 (2.5 mg base)/3 mL nebulization shortness of breath or wheezing soln #90 mL mometasone-formoterol HFA 200 See Rx Instructions .Route 05/21/22 mcg-5 mcg/actuation aerosol .COMPLEX #13 grams inhaler (Dulera) montelukast 10 mg tablet 10 mg PO QPM #90 tabs 09/05/22 prednisone 20 mg tablet See Rx Instructions .Route 11/21/22 .COMPLEX #13 tabs prednisone 10 mg tablet See Rx Instructions .Route 12/18/22 .COMPLEX #30 tabs prednisone 10 mg tablet 10 mg PO DAILY #30 tabs 01/17/23 simvastatin 20 mg tablet 20 mg PO DAILY #90 tabs 01/26/23 ferrous gluconate 324 mg (38 mg 324 mg PO DAILY #90 tabs 02/06/23 iron) tablet nystatin 100,000 unit/mL oral 5 ml PO QID #200 mL 04/22/23 suspension prednisone 10 mg tablets in a dose See Rx Instructions PO .COMPLEX 05/28/23 pack #27 ea benzonatate 100 mg capsule 100 mg PO BID-TID #270 caps 08/03/23 clonazepam 0.5 mg tablet 0.5 mg PO BID #60 tabs 08/04/23 azithromycin 250 mg tablet See Rx Instructions PO .COMPLEX #6 08/06/23 tabs prednisone 20 mg tablet See Rx Instructions .Route 09/01/23 .COMPLEX #90 tabs albuterol sulfate 90 mcg/actuation 1 - 2 puff PO Q4H PRN for wheezing 09/08/23 aerosol inhaler (Ventolin HFA) #54 grams azithromycin 250 mg tablet 250 mg PO DAILY 4 days #4 tabs 09/13/23 prednisone 20 mg tablet 40 mg (2 x 20 mg) PO DAILY 5 days 09/13/23 #10 tabs Allergies Allergy/AdvReac Type Severity Reaction Status Date / Time cinnamon [CINNAMON] Allergy Severe RESP Verified 08/06/23 14:29 PROBLEMS AND SWELLING Sulfa (Sulfonamide Allergy Severe anaphylacti Verified 08/06/23 14:29 Antibiotics) c [SULFA (SULFONAMIDE ANTIBIOTICS)] fluticasone [FLUTICASONE] Allergy Intermediate FEELS Verified 08/06/23 14:29 LIKE FIRE IN THE LUNGS trimethoprim [TRIMETHOPRIM] Allergy Unknown Patient Verified 08/06/23 14:29 can't remember codeine [CODEINE] AdvReac Intermediate violent Verified 08/06/23 14:29 doxycycline [DOXYCYCLINE] AdvReac Mild N/V Verified 08/06/23 14:29 dextromethorphan AdvReac Verified 08/06/23 14:29 fentanyl AdvReac Verified 08/06/23 14:29 Review of Systems Review of Systems Narrative: Constitutional: no fever, no chills Eyes: no visual disturbance, no discharge Ears, Nose, Mouth, Throat: no rhinorrhea, no sore throat Cardiovascular: no chest pain, no palpitations Respiratory: + cough, shortness of breath Gastrointestinal: +(resolved) abdominal pain, no vomiting, no diarrhea Genitourinary: no dysuria, no hematuria Musculoskeletal: no back pain, no neck stiffness Skin: no rash, no wound Neurological: no focal weakness, no focal numbness Patient History Medical History Fatigue Ventricular tachycardia (paroxysmal) Anemia Palpitations GERD with stricture HTN (hypertension) Insomnia (~2015) Hyperlipidemia (~2015) Anxiety (~2015) COPD (chronic obstructive pulmonary disease) (~2013) Asthma (Unknown) TIA (transient ischemic attack) (05/2014) Hematuria (~2014) Surgical History No pertinent past surgical history Family History Mother Age: 85 Hypertension Sister Age: 68 Cancer Social History household members: none Smoking Status: Current some day smoker Tobacco: How many years used: 47 quit status: considering quitting second hand exposure: No alcohol intake: former substance use type: does not use Exam Narrative Exam Narrative: Const: no acute distress, non toxic appearing; calm, conversant, pleasant, speaking in full sentences on baseline home 2L NC Eyes: PERRLA, EOMI ENT: mucous membranes moist Neck: supple, non-tender Resp: no respiratory distress, moderate aeration bilaterally with expiratory wheezing Card: regular rate and rhythm, no murmurs Abd: non tender diffusely, no rigidity or rebound or guarding Back: no T or L spine tenderness, no CVA tenderness bilaterally Extrem: no deformities, no swelling bilateral lower extremities, 2+ distal pulses all extremities Neuro: ANOx4, chief relay 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 His current benign abdomen with lack of any abdominal pain certainly argues against abdominal infection. In addition, his exam and history are much more suggestive of COPD exacerbation and potential concurrent respiratory infection than pulmonary embolism. However, to err on side of caution, I am obtaining CTA PE study and CT abdomen and pelvis with contrast, while obtaining EKG, CBC, CMP, troponin, viral swab, urinalysis. I am giving additional nebs, methylprednisone, azithromycin in the setting of doxycycline allergy per report and will closely reassess. Patient understands and agrees with plan. EKG NSR without acute ischemia or immediately concerning interval prolongation on my review. Labs: CBC with no leukocytosis, with chronic appearing anemia, no thrombocytopenia. Chemistry grossly reassuring and similar to prior, with chronic bicarb elevation in setting of COPD. Troponin negative, reassuring. Viral swab negative. UA reassuring. CTs: Radiology review of CTA below, which I agree with on my independent review: FINDINGS: Cardiovascular and Mediastinum: Heart size is normal. No evidence of thoracic aortic aneurysm or dissection. Pulmonary vasculature is unremarkable without filling defect. No hiatal hernia. Thyroid gland unremarkable. Lungs and Pleural Spaces: Severe pulmonary emphysema with apical predominance. Lingular scarring with improved consolidation noted. Lymph Nodes: No mediastinal, hilar or axillary adenopathy. Musculoskeletal: No evidence of rib fracture. Thoracic spine unremarkable. Chest wall and sternum intact. No lytic or blastic lesions. Upper abdomen: Visualized portions of the liver, spleen and kidneys are unremarkable. IMPRESSION: 1. Severe pulmonary emphysema without evidence of pulmonary embolism, aortic dissection or aneurysm Approved by: Jason Roberts M.D. on 09/13/2023 at 10:[address] A/P below, which I agree with on my independent review: FINDINGS: Lower thorax: The lung bases are clear. Heart size normal. No hiatal hernia. Liver: Normal in size and attenuation. No contour deformity present. Biliary system: No calcified cholelithiasis or pericholecystic inflammation. No intra or extrahepatic bile duct dilatation. Pancreas: Unremarkable without mass or inflammation evident. Spleen: Normal in size and density. Adrenals: Normal morphology and density. Reproductive system: Unremarkable as visualized. Urinary system: Nonobstructive right renal calculus in the lower pole the right kidney. No hydronephrosis bilaterally. Gastrointestinal system: Moderate fecal debris throughout the colon without obstruction. Multiple diverticula arise from the descending and sigmoid colon without definitive evidence of diverticulitis. Appendix: Normal retrocecal appendix identified. Peritoneal spaces: No mesenteric or retroperitoneal adenopathy. No free air. No free fluid. Vasculature: Aortic atherosclerotic vascular calcification noted without evidence of aneurysm. Abdominal wall: Abdominal wall intact without evidence of ventral or inguinal hernias. Musculoskeletal: Normal bone mineralization. No acute fractures. IMPRESSION: 1. Advanced left-sided diverticulosis. No definitive evidence of acute diverticulitis. No abscess, obstruction or free air. Approved by: Jason Roberts M.D. on 09/13/2023 at 11:18 This currently remains most consistent with COPD exacerbation in a currently well-appearing patient with substantial improvement here. He is on baseline oxygen. Patient able to stand and walk with walker several steps. HR and SpO2 overall reassuring during this. Patient feels nebulizers helping. He states he thinks he is doing well enough to be home. I agree on reassessments he appears improved and stable. Repeat exam and vital signs reassuring. Questions answered. Plan reviewed. Patient discharged in stable condition. Orders Ordered: ED Orders 09/13/23 10:22 EKG-12 Lead Stat 09/13/23 10:30 CBC Auto Diff [Complete Blood Count AUTO DIFF] Stat CMP [Comprehensive Metabolic Panel] Stat Covid-19 + FLU A/B + RSV - PCR Stat Trop I [Troponin I] Stat 09/13/23 10:34 CT abdomen pelvis w con Stat CT angio chest PE protocol Stat 09/13/23 11:29 Urinalysis and Microscopic Stat Discontinued Medications Albuterol/Ipratropium (Albuterol/Ipratropium 3 Ml Ampul) 3 ml INH NOW ONE Stop: 09/13/23 10:32 Last Admin: 09/13/23 10:48 Dose: 3 ml Documented By: JANEL Albuterol/Ipratropium (Albuterol/Ipratropium 3 Ml Ampul) 3 ml INH Q1H PRN PRN Reason: Shortness Of Breath Azithromycin (Azithromycin 250 Mg Tablet) 500 mg PO NOW ONE Stop: 09/13/23 10:37 Last Admin: 09/13/23 10:43 Dose: 500 mg Documented By: JANEL Methylprednisolone (Methylprednisolone 125 Mg/2 Ml Vial) 125 mg IV NOW ONE Stop: 09/13/23 10:35 Last Admin: 09/13/23 10:43 Dose: 125 mg Documented By: JANEL Vital Signs Vital signs: Vital Signs - 8 hr 09/13/23 10:23 09/13/23 10:24 09/13/23 10:24 Temperature Pulse Rate 108 H 105 H Respiratory Rate Blood Pressure 133/69 Pulse Oximetry 97 97 Oxygen Delivery Method Oxygen Flow Rate 09/13/23 10:26 09/13/23 10:30 09/13/23 10:30 Temperature 97.8 F Pulse Rate 105 H 100 H Respiratory Rate 22 25 H Blood Pressure 133/69 125/70 Pulse Oximetry 97 96 Oxygen Delivery Method Nasal Cannula Oxygen Flow Rate 09/13/23 11:00 09/13/23 12:59 Temperature Pulse Rate 97 H 90 Respiratory Rate 22 14 Blood Pressure 131/65 Pulse Oximetry 96 96 Oxygen Delivery Method Nasal Cannula Nasal Cannula Oxygen Flow Rate 2 Medical Decision Making Lab Data 09/13/23 10:30 09/13/23 10:30 Labs: Lab Results 09/13/23 09/13/23 Range/Units 10:30 11:29 WBC 6.9 (4.5-11.0) X10^3/uL RBC 4.07 L (4.5-5.9) X10^6/uL Hgb 12.0 L (13.5-17.5) g/dL Hct 36.8 L (41-53) % MCV 90.4 (80-100) fL MCH 29.5 (26-34) PG MCHC 32.6 (30-36) % RDW 14.1 (11.6-14.8) % Plt Count 220 (150-400) X10^3/uL Neut % (Auto) 45.0 L (50-75) % Lymph % (Auto) 45.7 H (25-40) % [place] % (Auto) 7.1 (3-14) % Eos % (Auto) 1.9 L (2-4) % Baso % (Auto) 0.3 (0-2) % Neut # (Auto) 3100 (4683-7802) /uL Lymph # (Auto) 3200 (5715-6956) /uL [place] # (Auto) 500 (0-900) /uL Eos # (Auto) 100 (0-450) /uL Baso # (Auto) 0 (0-100) /uL Sodium 145 (137-145) mmol/L Potassium 4.2 (3.4-5.1) mmol/L Chloride 104 (98-107) mmol/L Carbon Dioxide 39 H (22-32) mmol/L BUN 24 H (9-20) mg/dL Creatinine 0.98 (0.66-1.25) mg/dL Estimated GFR > 60 (>60) mL/min BUN/Creatinine Ratio 24.5 H (6-22) Glucose 98 (80-110) mg/dL Calcium 9.4 (8.4-10.2) mg/dL Total Bilirubin 0.4 (0.2-1.3) mg/dL AST 26 (17-59) IU/L ALT 18 (<50) IU/L Alkaline Phosphatase 50 (38-126) U/L Troponin I < 0.012 (0.01-0.034) ng/mL Total Protein 7.2 (6.3-8.2) g/dL Albumin 4.0 (3.5-5.0) g/dL Globulin 3.2 (1.7-4.1) g/dL Albumin/Globulin Ratio 1.3 (1.0-2.8) Urine Color Yellow Urine Appearance Clear Urine pH 5.0 (4.5-8.0) Ur Specific [place] >=1.030 H (1.000-1.035) Urine Protein Negative (Negative) Urine Glucose (UA) Negative (Negative) g/dL Urine Ketones Negative (NEGATIVE) Urine Occult Blood Negative (Negative) Urine Nitrate Negative (Negative) Urine Bilirubin Negative (NEGATIVE) Urine Urobilinogen 0.2 (0.2) E.U./dL Ur Leukocyte Esterase Negative (NEGATIVE) Urine RBC 0-1/hpf (0-5/HPF) Urine WBC 0-1/hpf (0-5/HPF) Ur Squamous Epith Cells None seen (0-5/HPF) Amorphous Sediment 1+ Urine Bacteria None seen (None) Urine Mucus 1+ H (Negative) Ur Culture Indicated? Cult not indicated Vol Urine Centrifuged 10ml (spun) SARS-CoV-2 (PCR) Negative (Negative) Influenza A (RT-PCR) Flu a negative (NEGATIVE) Influenza B (RT-PCR) Flu b negative (NEGATIVE) RSV (PCR) Negative (Negative) Discharge Plan Departure Patient Disposition: Home Clinical Impression: Shortness of breath, COPD (chronic obstructive pulmonary disease) Instructions: DI for Chronic Obstructive Pulmonary Disease Activity Restrictions/Additional Instructions: It was a pleasure taking care of you today. It is important to fully read and understand the below. Please ask us if you have any questions. We think the most likely cause of your symptoms may be COPD. Extensive testing here did not show another current clear cause. I am giving you an additional 4 days of azithromycin, steroids, and please continue your nebulizers at home. Please see your primary doctor within 3 days to be reassessed and immediately return if you have any new or worsening symptoms. No tests or assessments are perfect, and your condition could global climate change analyst time. If your symptoms change or worsen, it is very important you immediately seek medical care. If you have any new or worsening pain, lightheadedness or passing out, needing your inhaler more than every 4-6 hours, shortness of breath, fever, vomiting, confusion, numbness, weakness, or anything else that concerns you, please immediately seek medical care. If you have been prescribed any medications: please read the drug package inserts on how to properly use the medication and any potential side effects. If you had labs (blood tests) or imaging (CT scan or x-rays) done during your visit: please follow up on the results of these with your primary care doctor, as discussed. In addition, please know the results we received today may be preliminary. Our usual practice is to follow up on tests within a few days of a patient's discharge from the Emergency Department and notify you of any changes. These may lead to changes to your treatment plan. However, the best way to obtain and interpret these test results is through your Primary Care Provider. If you need to update your contact information, please stop by the trouble locator test desk and alert the Registration personnel before you leave the Emergency Department. Thank you for the opportunity to participate in your healthcare. We are always here and happy to see you in the future. --- PLEASE TAKE THE ATTACHED IMAGING TO YOUR DOCTORS: CTs: CTA chest: FINDINGS: Cardiovascular and Mediastinum: Heart size is normal. No evidence of thoracic aortic aneurysm or dissection. Pulmonary vasculature is unremarkable without filling defect. No hiatal hernia. Thyroid gland unremarkable. Lungs and Pleural Spaces: Severe pulmonary emphysema with apical predominance. Lingular scarring with improved consolidation noted. Lymph Nodes: No mediastinal, hilar or axillary adenopathy. Musculoskeletal: No evidence of rib fracture. Thoracic spine unremarkable. Chest wall and sternum intact. No lytic or blastic lesions. Upper abdomen: Visualized portions of the liver, spleen and kidneys are unremarkable. IMPRESSION: 1. Severe pulmonary emphysema without evidence of pulmonary embolism, aortic dissection or aneurysm Approved by: Jason Roberts M.D. on 09/13/2023 at 10:41 CT abd/pelv: FINDINGS: Lower thorax: The lung bases are clear. Heart size normal. No hiatal hernia. Liver: Normal in size and attenuation. No contour deformity present. Biliary system: No calcified cholelithiasis or pericholecystic inflammation. No intra or extrahepatic bile duct dilatation. Pancreas: Unremarkable without mass or inflammation evident. Spleen: Normal in size and density. Adrenals: Normal morphology and density. Reproductive system: Unremarkable as visualized. Urinary system: Nonobstructive right renal calculus in the lower pole the right kidney. No hydronephrosis bilaterally. Gastrointestinal system: Moderate fecal debris throughout the colon without obstruction. Multiple diverticula arise from the descending and sigmoid colon without definitive evidence of diverticulitis. Appendix: Normal retrocecal appendix identified. Peritoneal spaces: No mesenteric or retroperitoneal adenopathy. No free air. No free fluid. Vasculature: Aortic atherosclerotic vascular calcification noted without evidence of aneurysm. Abdominal wall: Abdominal wall intact without evidence of ventral or inguinal hernias. Musculoskeletal: Normal bone mineralization. No acute fractures. IMPRESSION: 1. Advanced left-sided diverticulosis. No definitive evidence of acute diverticulitis. No abscess, obstruction or free air. Approved by: Jason Roberts M.D. on 09/13/2023 at 11:18 Prescriptions: New prednisone 20 mg tablet 40 mg PO DAILY 5 Days Qty: 10 0RF azithromycin 250 mg tablet 250 mg PO DAILY 4 Days Qty: 4 0RF Rx Instructions: Start on 09/14/23. You received a dose in the ER 09/13/23. No Action (DME) Disabled Parking Permit Qty: 1 0RF Rx Instructions: Patient qualifies for permanent disabled parking permit. ipratropium-albuterol 0.5 mg-3 mg(2.5 mg base)/3 mL solution for nebulization 3 ml INHALATION BID PRN (Reason: wheezing/ SOB) Qty: 90 11RF Dulera 200-5 mcg/actuation HFA aerosol inhaler See Rx Instructions .ROUTE .COMPLEX Qty: 13 6RF Dose Instruction: INHALE 2 PUFFS BY MOUTH TWICE DAILY Rx Instructions: INHALE 2 PUFFS BY MOUTH TWICE DAILY montelukast 10 mg tablet 10 mg PO QPM Qty: 90 3RF simvastatin 20 mg tablet 20 mg PO DAILY Qty: 90 3RF ferrous gluconate 324 mg (38 mg iron) tablet 324 mg PO DAILY Qty: 90 1RF nystatin 100,000 unit/mL suspension 5 ml PO QID Qty: 200 1RF benzonatate 100 mg capsule 100 mg PO BID-TID Qty: 270 1RF clonazepam 0.5 mg tablet 0.5 mg PO BID Qty: 60 2RF prednisone 20 mg tablet See Rx Instructions .ROUTE .COMPLEX Qty: 90 1RF Dose Instruction: TAKE 1 TABLET (20 MG) BY MOUTH DAILY FOR COPD Rx Instructions: TAKE 1 TABLET (20 MG) BY MOUTH DAILY FOR COPD albuterol sulfate [Ventolin HFA] 90 mcg/actuation HFA aerosol inhaler 1 - 2 puff PO Q4H PRN (Reason: for wheezing) Qty: 54 1RF Spiriva with HandiHaler 18 mcg capsule, w/inhalation device 18 mcg inhalation DAILY Qty: 90 3RF ascorbate calcium (vitamin C) 500 mg tablet 500 mg PO DAILY azithromycin 250 mg tablet See Rx Instructions PO .COMPLEX Qty: 6 0RF Rx Instructions: For 250 mg dose pack: take 500 mg today (day 1), then 250 mg for 4 days (days 2-5) PO acetaminophen 325 mg Tablet 1 dose PO PRN PRN (Reason: pain) magnesium hydroxide 400 mg/5 mL Suspension 1 dose PO PRN PRN (Reason: Indigestion) Patient Comments: patient states uses often Mylanta ibuprofen 200 mg Tablet 1 dose PO PRN PRN (Reason: pain) aspirin 81 mg Tablet 81 mg PO DAILY nitroglycerin 0.3 mg tablet, sublingual 0.3 mg sublingual Q5-15M PRN (Reason: chest pain) Qty: 20 0RF Rx Instructions: do not exceed 3 doses per episode ipratropium-albuterol 0.5 mg-3 mg(2.5 mg base)/3 mL solution for nebulization 3 ml INHALATION Q4-6H PRN (Reason: shortness of breath or wheezing) Qty: 90 0RF prednisone 20 mg tablet See Rx Instructions .ROUTE .COMPLEX Qty: 13 0RF Rx Instructions: 60 mg (3 pills) daily for 2 days, then 40 mg (2 pills) daily for 2 days, then 20mg (1 pill) daily for 2 days then 10mg (1/2 pill) for 2 days then stop prednisone 10 mg tablet 10 mg PO DAILY Qty: 30 0RF Rx Instructions: day 1-3: 40 mg once a day day 4-6: 30 mg once a day day 7-9: 20 mg once a day day 10-12: 10 mg once a day prednisone 10 mg tablets,dose pack See Rx Instructions .ROUTE .COMPLEX Qty: 27 0RF Rx Instructions: Take 40 mg p.o. daily x3 days, then 30 mg p.o. daily x3 days, then 20 mg p.o. daily x3 days, then return to your usual 10 mg daily prednisone 10 mg tablet See Rx Instructions .ROUTE .COMPLEX Qty: 30 0RF Rx Instructions: Day 1,2,3: 40mg PO Daily Day 4,5,6: 30mg PO Daily Day 7,8,9: 20mg PO Daily Day 10,11,12: 10mg PO Daily #30 Referrals: Saqib Oliva DO [Primary Care Provider] - Stand Alone Forms: Patient Portal/API
[2023-09-13 10:23] VITALS: PULSE 108; O2SAT 97
[2023-09-13 10:24] VITALS: BP 133/69; PULSE 105; O2SAT 97
[2023-09-13 10:26] VITALS: BP 133/69; PULSE 105; RESP 22; TEMP 36.6; O2SAT 97; BMI 24.0
[2023-09-13 10:30] VITALS: BP 125/70; PULSE 100; RESP 25; O2SAT 96
[2023-09-13 10:34] LABS: Add Manual Diff / Slide Review NO; Basophils Absolute Auto 0 /uL (0-100); Basophils Percent Auto 0.3 % (0-2); Eosinophils Absolute Auto 100 /uL (0-450); Eosinophils Percent Auto 1.9 % (2-4); Hematocrit 36.8 % (41-53); Lymphocytes Absolute Auto 3200 /uL (1100-4500); Lymphocytes Percent Auto 45.7 % (25-40); Mean Corpuscular HGB Conc 32.6 % (30-36); Mean Corpuscular Hemoglobin 29.5 PG (26-34); Mean Corpuscular Volume 90.4 fL (80-100); Monocytes Absolute Auto 500 /uL (0-900); Monocytes Percent Auto 7.1 % (3-14); Neutrophils Absolute Auto 3100 /uL (1500-7000); Platelet Count 220 X10^3/uL (150-400); Red Blood Cell Count 4.07 X10^6/uL (4.5-5.9); Red Cell Distribution Width 14.1 % (11.6-14.8); White Blood Cell Count 6.9 X10^3/uL (4.5-11.0)
--- NOTE | 2023-09-13 10:34 | DI.CT.S_ITS ---
PROCEDURE: CT ANGIO CHEST PE PROTOCOL INDICATIONS: SOB, fatigue, assess for PE vs PNA TECHNIQUE: After the administration of intravenous contrast, 2 mm thick sections acquired from the pulmonary apices to the posterior costophrenic angles. MIP reformats of the arterial vasculature were utilized. For radiation dose reduction, the following was used: automated exposure control, adjustment of mA and/or kV according to patient size. COMPARISON: [facility], CT, CT ANGIO CHEST PE PROTOCOL, 01/28/2022, 0:57. FINDINGS: Cardiovascular and Mediastinum: Heart size is normal. No evidence of thoracic aortic aneurysm or dissection. Pulmonary vasculature is unremarkable without filling defect. No hiatal hernia. Thyroid gland unremarkable. Lungs and Pleural Spaces: Severe pulmonary emphysema with apical predominance. Lingular scarring with improved consolidation noted. Lymph Nodes: No mediastinal, hilar or axillary adenopathy. Musculoskeletal: No evidence of rib fracture. Thoracic spine unremarkable. Chest wall and sternum intact. No lytic or blastic lesions. Upper abdomen: Visualized portions of the liver, spleen and kidneys are unremarkable. IMPRESSION: 1. Severe pulmonary emphysema without evidence of pulmonary embolism, aortic dissection or aneurysm Approved by: Jason Roberts M.D. on 09/13/2023 at 10:41
--- NOTE | 2023-09-13 10:34 | DI.CT.S_ITS ---
PROCEDURE: CT ABDOMEN PELVIS W CON INDICATIONS: 62-year-old male with abdominal pain and fatigue TECHNIQUE: After the administration of intravenous contrast, axial sections acquired from the lung bases to the pubic symphysis. Coronal and sagittal reformats were performed. For radiation dose reduction, the following was used: automated exposure control, adjustment of mA and/or kV according to patient size. COMPARISON: [facility], CT, CT ABDOMEN PELVIS W CON, 12/30/2020, 9:27. FINDINGS: Lower thorax: The lung bases are clear. Heart size normal. No hiatal hernia. Liver: Normal in size and attenuation. No contour deformity present. Biliary system: No calcified cholelithiasis or pericholecystic inflammation. No intra or extrahepatic bile duct dilatation. Pancreas: Unremarkable without mass or inflammation evident. Spleen: Normal in size and density. Adrenals: Normal morphology and density. Reproductive system: Unremarkable as visualized. Urinary system: Nonobstructive right renal calculus in the lower pole the right kidney. No hydronephrosis bilaterally. Gastrointestinal system: Moderate fecal debris throughout the colon without obstruction. Multiple diverticula arise from the descending and sigmoid colon without definitive evidence of diverticulitis. Appendix: Normal retrocecal appendix identified. Peritoneal spaces: No mesenteric or retroperitoneal adenopathy. No free air. No free fluid. Vasculature: Aortic atherosclerotic vascular calcification noted without evidence of aneurysm. Abdominal wall: Abdominal wall intact without evidence of ventral or inguinal hernias. Musculoskeletal: Normal bone mineralization. No acute fractures. IMPRESSION: 1. Advanced left-sided diverticulosis. No definitive evidence of acute diverticulitis. No abscess, obstruction or free air. Approved by: Jason Roberts M.D. on 09/13/2023 at 11:18
[2023-09-13] MEDS: AZITHROMYCIN 250 MG TABLET 500 MG PO (10:43)
[2023-09-13] MEDS: methylPREDNISolone 125 MG/2 ML VIAL IV (10:43)
[2023-09-13 10:44] LABS: Alanine Aminotransferase 18 IU/L (<50); Albumin Globulin Ratio 1.3 (1.0-2.8); Alkaline Phosphatase 50 U/L (38-126); Aspartate Aminotransferase 26 IU/L (17-59); BUN Creatinine Ratio 24.5 (6-22); Bilirubin Total 0.4 mg/dL (0.2-1.3); Blood Urea Nitrogen 24 mg/dL (9-20); Calcium 9.4 mg/dL (8.4-10.2); Carbon Dioxide 39 mmol/L (22-32); Chloride 104 mmol/L (98-107); Estimated Glomerular Filt Rate > 60 mL/min (>60); Globulin 3.2 g/dL (1.7-4.1); Glucose 98 mg/dL (80-110); HEMOLYSIS < 15 (0-50); Potassium 4.2 mmol/L (3.4-5.1); Sodium 145 mmol/L (137-145); Total Protein 7.2 g/dL (6.3-8.2)
[2023-09-13] MEDS: ALBUTEROL/IPRATROPIUM 3 ML AMPUL INH (10:48)
[2023-09-13 10:56] LABS: Troponin I < 0.012 ng/mL (0.01-0.034)
[2023-09-13 11:00] VITALS: PULSE 97; RESP 22; O2SAT 96
--- NOTE | 2023-09-13 11:07 | PC.NURSE ---
Received report from HASMUKH Jimenes.
[2023-09-13 11:18] LABS: Influenza A - CEPHEID Flu A NEGATIVE (NEGATIVE); Influenza B - CEPHEID Flu B NEGATIVE (NEGATIVE); Respiratory Syncytial Virus Negative (Negative)
[2023-09-13 11:19] LABS: COVID-19 CEPHEID 4-PLEX PCR Negative (Negative)
[2023-09-13 11:41] LABS: Appearance Urine UA CLEAR; Bilirubin Urine UA NEGATIVE (NEGATIVE); Color Urine UA YELLOW; Glucose Urine UA NEGATIVE (Negative); Ketones Urine UA NEGATIVE (NEGATIVE); Leukocyte Esterase Urine UA NEGATIVE (NEGATIVE); Nitrite Urine UA NEGATIVE (Negative); Occult Blood Urine UA NEGATIVE (Negative); Protein Urine UA NEGATIVE (Negative); Specific Gravity Urine UA >=1.030 (1.000-1.035); Urobilinogen Urine UA 0.2 E.U./dL (0.2)
[2023-09-13 11:51] LABS: Amorphous Sediment Urine 1+; Bacteria Urine None Seen; Culture Indicated Urine Cult Not Indicated; Mucus Urine 1+ (Negative); RBC Urine 0-1/HPF (0-5/HPF); Squamous Epithelial Cell Urine None Seen (0-5/HPF); Urine Volume 10mL (spun); WBC Urine 0-1/HPF (0-5/HPF)
[2023-09-13 12:59] VITALS: BP 131/65; PULSE 90; RESP 14; O2SAT 96
== END 2023-09-13 13:00 | disposition home or self-care (01) ==
PROVIDERS: Emergency Provider Emergency Medicine; PCP Family Medicine
DX: R06.02 Shortness of breath (principal); J44.9 Chronic obstructive pulmonary disease, unspecified; F17.200 Nicotine dependence, unspecified, uncomplicated
CPT/HCPCS: 0241U; 71275; 74177; 80053; 81001; 84484; 85025; 93005; 93010; 94640; 96374; 99284; 99285; J2919; Q9967

== ENCOUNTER 2023-10-13 09:08 | Emergency (ER) | payer MEDICARE, MEDICAID, SELFPAY ==
[2022-11-18 19:35] VITALS: BMI 23.6
[2023-10-13 09:11] VITALS: BP 195/70; PULSE 100; PULSE 101; RESP 18; TEMP 36.9; O2SAT 97; O2SAT 99; BMI 24.2
--- NOTE | 2023-10-13 09:16 | ED.SOB ---
HPI - SOB/Dyspnea General Chief Complaint: Shortness of Breath/Dyspnea Stated Complaint: SOB Time Seen by Provider: 10/13/23 09:14 Source: patient and EMS Mode of arrival: EMS History of Present Illness HPI Narrative: Patient 62-year-old history of COPD, oxygen dependent on 2 L of oxygen, hypertension prior stroke wheelchair-bound lives at home independently becoming short of breath this morning. Reports that he was feeling well yesterday however today had chest tightness and difficulty breathing. EMS reports use 86% on his home O2, he was already giving himself a nebulizer treatment they continue to give him 1 in the ambulance in his overall feeling a bit better. He reports cough but not significantly changed. No fever or chills. No other symptoms. He reports that he is currently on 10 mg of prednisone which is his daily prednisone Related Data Home Medications Medication Instructions Recorded Confirmed acetaminophen 325 mg tablet 1 dose PO PRN PRN pain 12/29/18 08/06/23 ibuprofen 200 mg tablet 1 dose PO PRN PRN pain 12/29/18 08/06/23 magnesium hydroxide 400 mg/5 mL 1 dose PO PRN PRN Indigestion 12/29/18 08/06/23 oral suspension aspirin 81 mg tablet 81 mg PO DAILY 12/30/20 08/06/23 ascorbate calcium (vitamin C) 500 500 mg PO DAILY 08/06/23 08/06/23 mg tablet Previous Rx's Medication Instructions Recorded Disabled Parking Permit #1 ea 06/24/19 nitroglycerin 0.3 mg sublingual 0.3 mg sublingual Q5-15M PRN chest 01/23/21 tablet pain #20 tabs tiotropium bromide 18 mcg capsule 18 mcg inhalation DAILY #90 08/12/21 with inhalation device (Spiriva inhalations with HandiHaler) ipratropium 0.5 mg-albuterol 3 mg 3 ml inhalation BID PRN wheezing/ 01/24/22 (2.5 mg base)/3 mL nebulization SOB #90 mL soln ipratropium 0.5 mg-albuterol 3 mg 3 ml inhalation Q4-6H PRN 01/26/22 (2.5 mg base)/3 mL nebulization shortness of breath or wheezing soln #90 mL mometasone-formoterol HFA 200 See Rx Instructions .Route 05/21/22 mcg-5 mcg/actuation aerosol .COMPLEX #13 grams inhaler (Dulera) prednisone 20 mg tablet See Rx Instructions .Route 11/21/22 .COMPLEX #13 tabs prednisone 10 mg tablet See Rx Instructions .Route 12/18/22 .COMPLEX #30 tabs prednisone 10 mg tablet 10 mg PO DAILY #30 tabs 01/17/23 simvastatin 20 mg tablet 20 mg PO DAILY #90 tabs 01/26/23 nystatin 100,000 unit/mL oral 5 ml PO QID #200 mL 04/22/23 suspension prednisone 10 mg tablets in a dose See Rx Instructions PO .COMPLEX 05/28/23 pack #27 ea benzonatate 100 mg capsule 100 mg PO BID-TID #270 caps 08/03/23 clonazepam 0.5 mg tablet 0.5 mg PO BID #60 tabs 08/04/23 azithromycin 250 mg tablet See Rx Instructions PO .COMPLEX #6 08/06/23 tabs prednisone 20 mg tablet See Rx Instructions .Route 09/01/23 .COMPLEX #90 tabs albuterol sulfate 90 mcg/actuation 1 - 2 puff PO Q4H PRN for wheezing 09/08/23 aerosol inhaler (Ventolin HFA) #54 grams ferrous gluconate 324 mg (38 mg 324 mg PO DAILY #90 tabs 09/22/23 iron) tablet montelukast 10 mg tablet 10 mg PO QPM #90 tabs 09/22/23 prednisone 10 mg tablet 10 mg PO DAILY #30 tabs 10/13/23 Allergies Allergy/AdvReac Type Severity Reaction Status Date / Time cinnamon [CINNAMON] Allergy Severe RESP Verified 10/13/23 09:13 PROBLEMS AND SWELLING Sulfa (Sulfonamide Allergy Severe anaphylacti Verified 10/13/23 09:13 Antibiotics) c [SULFA (SULFONAMIDE ANTIBIOTICS)] fluticasone [FLUTICASONE] Allergy Intermediate FEELS Verified 10/13/23 09:13 LIKE FIRE IN THE LUNGS trimethoprim [TRIMETHOPRIM] Allergy Unknown Patient Verified 10/13/23 09:13 can't remember codeine [CODEINE] AdvReac Intermediate violent Verified 10/13/23 09:13 doxycycline [DOXYCYCLINE] AdvReac Mild N/V Verified 10/13/23 09:13 dextromethorphan AdvReac Verified 10/13/23 09:13 fentanyl AdvReac Verified 10/13/23 09:13 Patient History Medical History Fatigue Ventricular tachycardia (paroxysmal) Anemia Palpitations GERD with stricture HTN (hypertension) Insomnia (~2015) Hyperlipidemia (~2015) Anxiety (~2015) COPD (chronic obstructive pulmonary disease) (~2013) Asthma (Unknown) TIA (transient ischemic attack) (05/2014) Hematuria (~2014) Surgical History No pertinent past surgical history Family History Mother Age: 85 Hypertension Sister Age: 68 Cancer Social History household members: none Smoking Status: Current some day smoker Tobacco: How many years used: 47 quit status: considering quitting second hand exposure: No alcohol intake: former substance use type: does not use Smoking Status: Current some day smoker tobacco type: cigarettes alcohol intake frequency: holidays/special occasions only Substance Use Type: does not use Exam Initial Vital Signs Initial Vital Signs: Vital Signs Temperature 98.5 F 10/13/23 09:11 Pulse Rate 100 H 10/13/23 09:11 Respiratory Rate 18 10/13/23 09:11 Blood Pressure 195/70 H 10/13/23 09:11 Pulse Oximetry 99 10/13/23 09:11 Oxygen Delivery Method Aerosol Mask 10/13/23 09:11 Oxygen Flow Rate 2 10/13/23 09:11 GENERAL: Alert 62-year-old male appears in [id number] respiratory distress HEENT: Head atraumatic,EOMI, pupils reactive, face symmetric, moist mucous membranes CARDIOVASCULAR: Regular rate and rhythm without murmurs, rubs or gallops. RESPIRATORY: Decreased breath sounds bilaterally no wheezes or rales speaks in full sentence ABDOMEN: Soft, nontender. Normoactive bowel sounds all 4 quadrants. No guarding or rebound. : No CVA tenderness EXTREMITIES: Normal range of motion, no clubbing or edema. Neurovascularly intact NEUROLOGICAL: Alert and oriented x4. SKIN: Warm, dry, no laceration, no petechiae, no rashes or lesions. Course Orders Ordered: ED Orders 10/13/23 09:10 BNP [NT-proBNP (BNP-Adult 18+)] Stat Complete Blood Count AUTO DIFF Stat Comprehensive Metabolic Panel Stat Lipase Stat MAG [Magnesium] Stat Procalcitonin Stat Troponin & CK Cardiac Panel Stat 10/13/23 09:15 XR chest 1V Stat EKG-12 Lead Stat Discontinued Medications Acetaminophen (Acetaminophen 325 Mg Tablet) 975 mg PO NOW ONE Stop: 10/13/23 09:49 Last Admin: 10/13/23 09:52 Dose: 975 mg Documented By: MARY Albuterol (Albuterol 2.5 Mg/3 Ml Neb (Adult)) 2.5 mg INH NOW ONE Stop: 10/13/23 10:05 Last Admin: 10/13/23 10:17 Dose: 2.5 mg Documented By: BRITANY Albuterol/Ipratropium (Albuterol/Ipratropium 3 Ml Ampul) 3 ml INH NOW ONE Stop: 10/13/23 09:16 Last Admin: 10/13/23 09:31 Dose: 3 ml Documented By: BRITANY Sodium Chloride (Normal Saline 0.9%) 1,000 mls @ 1,000 mls/hr IV BOLUS ONE Stop: 10/13/23 11:03 Last Infusion: 10/13/23 11:03 Dose: Infused Documented By: Admin: 10/13/23 10:10 Dose: 1,000 mls/hr Documented By: MARY Methylprednisolone (Methylprednisolone 125 Mg/2 Ml Vial) 125 mg IV NOW ONE Stop: 10/13/23 09:16 Last Admin: 10/13/23 09:21 Dose: 125 mg Documented By: MARY Vital Signs Vital signs: Vital Signs - 8 hr 10/13/23 09:11 10/13/23 09:11 10/13/23 09:11 Temperature 98.5 F Pulse Rate 100 H 101 H Respiratory Rate 18 Blood Pressure 195/70 H 195/70 H Pulse Oximetry 99 97 Oxygen Delivery Method Aerosol Mask Nasal Cannula Oxygen Flow Rate 2 10/13/23 09:30 10/13/23 10:00 10/13/23 10:00 Temperature Pulse Rate 94 H 98 H Respiratory Rate 15 38 H Blood Pressure 101/67 Pulse Oximetry 98 95 Oxygen Delivery Method Oxygen Flow Rate 10/13/23 10:04 10/13/23 10:04 10/13/23 10:18 Temperature Pulse Rate 97 H Respiratory Rate 19 Blood Pressure 107/63 Pulse Oximetry 95 96 Oxygen Delivery Method Nasal Cannula Oxygen Flow Rate 2 10/13/23 10:30 10/13/23 10:30 Temperature Pulse Rate 96 H Respiratory Rate 26 H Blood Pressure 127/59 L Pulse Oximetry 97 Oxygen Delivery Method Oxygen Flow Rate MDM - SOB/Dyspnea Lab Data 10/13/23 09:10 10/13/23 09:10 Labs: Lab Results 10/13/23 Range/Units 09:10 WBC 8.8 (4.5-11.0) X10^3/uL RBC 3.54 L (4.5-5.9) X10^6/uL Hgb 10.6 L (13.5-17.5) g/dL Hct 33.3 L (41-53) % MCV 94.0 (80-100) fL MCH 30.0 (26-34) PG MCHC 32.0 (30-36) % RDW 15.3 H (11.6-14.8) % Plt Count 234 (150-400) X10^3/uL Neut % (Auto) 43.0 L (50-75) % Lymph % (Auto) 44.5 H (25-40) % [place] % (Auto) 10.0 (3-14) % Eos % (Auto) 2.2 (2-4) % Baso % (Auto) 0.3 (0-2) % Neut # (Auto) 3800 (6687-2387) /uL Lymph # (Auto) 3900 (4983-8230) /uL [place] # (Auto) 900 (0-900) /uL Eos # (Auto) 200 (0-450) /uL Baso # (Auto) 0 (0-100) /uL Sodium 144 (137-145) mmol/L Potassium 4.3 (3.4-5.1) mmol/L Chloride 103 (98-107) mmol/L Carbon Dioxide 36 H (22-32) mmol/L BUN 19 (9-20) mg/dL Creatinine 0.93 (0.66-1.25) mg/dL Estimated GFR > 60 (>60) mL/min BUN/Creatinine Ratio 20.4 (6-22) Glucose 118 H (80-110) mg/dL Calcium 9.4 (8.4-10.2) mg/dL Magnesium 2.2 (1.6-2.3) mg/dL Total Bilirubin 0.3 (0.2-1.3) mg/dL AST 29 (17-59) IU/L ALT 20 (<50) IU/L Alkaline Phosphatase 54 (38-126) U/L Total Creatine Kinase 84 (55-170) U/L Troponin I < 0.012 (0.01-0.034) ng/mL NT-Pro-B Natriuret Pep 61 (<125) pg/mL Total Protein 6.8 (6.3-8.2) g/dL Albumin 3.8 (3.5-5.0) g/dL Globulin 3.0 (1.7-4.1) g/dL Albumin/Globulin Ratio 1.3 (1.0-2.8) Lipase 274 (23-300) U/L Procalcitonin 0.08 (<0.5) ng/mL Imaging Data Chest x-ray: Radiologist's Impression: PROCEDURE: XR CHEST 1V INDICATIONS: short of breath TECHNIQUE: One view of the chest was acquired. COMPARISON: [facility], CT, CT CHEST WO CON, 04/02/2023, 11:09. [facility], CT, CT CHEST WITHOUT CONTRAST, 05/19/2019, 13:38. [facility], CT, CT ANGIO CHEST PE PROTOCOL, 09/13/2023, 10:57. [facility], CR, XR CHEST 1V, 07/10/2023, 8:08. [facility], CR, XR CHEST 1V, 05/28/2023, 5:32. FINDINGS: Surgical changes and devices: None. Lungs and pleura: Stable scarring of the lingula. No consolidation or effusions. Emphysema. Mediastinum: Mediastinal contours appear normal. Heart size is normal. Bones and chest wall: No suspicious bony lesions. Overlying soft tissues appear unremarkable. IMPRESSION: No acute cardiopulmonary abnormality is seen. Dictated by: Josias Romo M.D. on 10/13/2023 at 9:57 Approved by: Josias Romo M.D. on 10/13/2023 at 10:0 ECG Data Attestation: I personally reviewed and interpreted this ECG as follows: Prior ECG tracings: available for review Interpretation: Sinus rhythm rate 97 GA interval 144 QRS [address] changes or T-wave inversions MDM Narrative Medical decision making narrative: Patient is 62-year-old male history of COPD chronically on home oxygen presenting today with sudden onset of increasing shortness breath. He was found to be hypoxic with EMS at 86% but quickly improved with nebulizer treatments. He is now back on home O2. He appears in no acute respiratory distress he is able to speak in full sentences but lung sounds are obviously diminished. In the ED he is given Solu-Medrol and albuterol which helps he was still feeling a little bit tight and he got another headache Patient complaining of headache. He reports he has a headache every single morning it is quite severe today is not any worse he usually gets Tylenol for it he got some Tylenol here in the ED. Blood work has been reviewed WBC 8.8 hemoglobin 10.6 hematocrit 33.3 previously 12.0 and 36.8, sodium 144 potassium 4.3, chloride 103, carbon dioxide 36, BUN 19, creatinine 0.93, glucose 118, troponin undetected BNP 61, procalcitonin 0.08 Chest x-ray reviewed no acute cardiopulmonary process Patient presenting today with COPD exacerbation history of COPD. He has a negative procalcitonin no symptoms of worsening sputum he allergic to doxycycline and does not want azithromycin I do not think antibiotics are really indicated at this time he has no leukocytosis fever or other symptoms. Seems reasonable to increase his prednisone and do a prednisone taper. Discharge Plan Departure Patient Disposition: Home Clinical Impression: COPD (chronic obstructive pulmonary disease) Instructions: Chronic Obstructive Pulmonary Disease Activity Restrictions/Additional Instructions: *You have been diagnosed with COPD exacerbation *What to do: The same will increase your prednisone. Your a anemic I do recommend that you have your hemoglobin rechecked with your primary care provider *Continue to take medications as directed Prednisone 40 mg once a day for 3 days, 30 mg for 3 days, 20 mg for 3 days, 10 mg ongoing *Follow up with your primary care provider in 2-3 days or call [phone] *Return to ER if you should have increasing productive sputum fever confusion shortness of breath or any new, worsening or concerning symptoms Prescriptions: New prednisone 10 mg tablet 10 mg PO DAILY Qty: 30 0RF Rx Instructions: day 1-3: 40 mg once a day day 4-6: 30 mg once a day day 7-9: 20 mg once a day day 10-12: 10 mg once a day No Action (DME) Disabled Parking Permit Qty: 1 0RF Rx Instructions: Patient qualifies for permanent disabled parking permit. ipratropium-albuterol 0.5 mg-3 mg(2.5 mg base)/3 mL solution for nebulization 3 ml INHALATION BID PRN (Reason: wheezing/ SOB) Qty: 90 11RF Dulera 200-5 mcg/actuation HFA aerosol inhaler See Rx Instructions .ROUTE .COMPLEX Qty: 13 6RF Dose Instruction: INHALE 2 PUFFS BY MOUTH TWICE DAILY Rx Instructions: INHALE 2 PUFFS BY MOUTH TWICE DAILY simvastatin 20 mg tablet 20 mg PO DAILY Qty: 90 3RF nystatin 100,000 unit/mL suspension 5 ml PO QID Qty: 200 1RF benzonatate 100 mg capsule 100 mg PO BID-TID Qty: 270 1RF clonazepam 0.5 mg tablet 0.5 mg PO BID Qty: 60 2RF prednisone 20 mg tablet See Rx Instructions .ROUTE .COMPLEX Qty: 90 1RF Dose Instruction: TAKE 1 TABLET (20 MG) BY MOUTH DAILY FOR COPD Rx Instructions: TAKE 1 TABLET (20 MG) BY MOUTH DAILY FOR COPD albuterol sulfate [Ventolin HFA] 90 mcg/actuation HFA aerosol inhaler 1 - 2 puff PO Q4H PRN (Reason: for wheezing) Qty: 54 1RF ferrous gluconate 324 mg (38 mg iron) tablet 324 mg PO DAILY Qty: 90 1RF montelukast 10 mg tablet 10 mg PO QPM Qty: 90 3RF Spiriva with HandiHaler 18 mcg capsule, w/inhalation device 18 mcg inhalation DAILY Qty: 90 3RF ascorbate calcium (vitamin C) 500 mg tablet 500 mg PO DAILY azithromycin 250 mg tablet See Rx Instructions PO .COMPLEX Qty: 6 0RF Rx Instructions: For 250 mg dose pack: take 500 mg today (day 1), then 250 mg for 4 days (days 2-5) PO acetaminophen 325 mg Tablet 1 dose PO PRN PRN (Reason: pain) magnesium hydroxide 400 mg/5 mL Suspension 1 dose PO PRN PRN (Reason: Indigestion) Patient Comments: patient states uses often Mylanta ibuprofen 200 mg Tablet 1 dose PO PRN PRN (Reason: pain) aspirin 81 mg Tablet 81 mg PO DAILY nitroglycerin 0.3 mg tablet, sublingual 0.3 mg sublingual Q5-15M PRN (Reason: chest pain) Qty: 20 0RF Rx Instructions: do not exceed 3 doses per episode ipratropium-albuterol 0.5 mg-3 mg(2.5 mg base)/3 mL solution for nebulization 3 ml INHALATION Q4-6H PRN (Reason: shortness of breath or wheezing) Qty: 90 0RF prednisone 20 mg tablet See Rx Instructions .ROUTE .COMPLEX Qty: 13 0RF Rx Instructions: 60 mg (3 pills) daily for 2 days, then 40 mg (2 pills) daily for 2 days, then 20mg (1 pill) daily for 2 days then 10mg (1/2 pill) for 2 days then stop prednisone 10 mg tablet 10 mg PO DAILY Qty: 30 0RF Rx Instructions: day 1-3: 40 mg once a day day 4-6: 30 mg once a day day 7-9: 20 mg once a day day 10-12: 10 mg once a day prednisone 10 mg tablets,dose pack See Rx Instructions .ROUTE .COMPLEX Qty: 27 0RF Rx Instructions: Take 40 mg p.o. daily x3 days, then 30 mg p.o. daily x3 days, then 20 mg p.o. daily x3 days, then return to your usual 10 mg daily prednisone 10 mg tablet See Rx Instructions .ROUTE .COMPLEX Qty: 30 0RF Rx Instructions: Day 1,2,3: 40mg PO Daily Day 4,5,6: 30mg PO Daily Day 7,8,9: 20mg PO Daily Day 10,11,12: 10mg PO Daily #30 Referrals: Saqib Oliva DO [Primary Care Provider] - Stand Alone Forms: Patient Portal/API
[2023-10-13] MEDS: methylPREDNISolone 125 MG/2 ML VIAL IV (09:21)
[2023-10-13 09:24] LABS: Add Manual Diff / Slide Review NO; Basophils Absolute Auto 0 /uL (0-100); Basophils Percent Auto 0.3 % (0-2); Eosinophils Absolute Auto 200 /uL (0-450); Eosinophils Percent Auto 2.2 % (2-4); Hematocrit 33.3 % (41-53); Hemoglobin 10.6 g/dL (13.5-17.5); Lymphocytes Absolute Auto 3900 /uL (1100-4500); Lymphocytes Percent Auto 44.5 % (25-40); Monocytes Absolute Auto 900 /uL (0-900); Neutrophils Absolute Auto 3800 /uL (1500-7000); Platelet Count 234 X10^3/uL (150-400); Red Blood Cell Count 3.54 X10^6/uL (4.5-5.9); Red Cell Distribution Width 15.3 % (11.6-14.8); White Blood Cell Count 8.8 X10^3/uL (4.5-11.0)
[2023-10-13 09:30] VITALS: PULSE 94; RESP 15; O2SAT 98
[2023-10-13 09:30] LABS: Alanine Aminotransferase 20 IU/L (<50); Albumin 3.8 g/dL (3.5-5.0); Albumin Globulin Ratio 1.3 (1.0-2.8); Alkaline Phosphatase 54 U/L (38-126); Aspartate Aminotransferase 29 IU/L (17-59); BUN Creatinine Ratio 20.4 (6-22); Bilirubin Total 0.3 mg/dL (0.2-1.3); Blood Urea Nitrogen 19 mg/dL (9-20); Calcium 9.4 mg/dL (8.4-10.2); Carbon Dioxide 36 mmol/L (22-32); Chloride 103 mmol/L (98-107); Creatine Kinase 84 U/L (55-170); Estimated Glomerular Filt Rate > 60 mL/min (>60); Glucose 118 mg/dL (80-110); HEMOLYSIS < 15 (0-50); Lipase 274 U/L (23-300); Magnesium 2.2 mg/dL (1.6-2.3); Potassium 4.3 mmol/L (3.4-5.1); Sodium 144 mmol/L (137-145); Total Protein 6.8 g/dL (6.3-8.2)
--- NOTE | 2023-10-13 09:30 | PC.NURSE ---
Pt came to ED today via [facility] for ongoing and worsening SOB. Hx of COPD, CHF and sometimes smoker. Pt having difficulty speaking in full sentences and lung silva sound tight bilaterally. RR 22. Pt uses home O2 2L NC. EMS reports that when they arrived at pt's home, pt o2 sat 89% on RA. Pt improved with neb tx and 2L NC. Pt improving with neb and o2 with sat at 98%. Pt a&ox4.
[2023-10-13] MEDS: ALBUTEROL/IPRATROPIUM 3 ML AMPUL INH (09:31)
[2023-10-13 09:41] LABS: NT-proBNP (BNP-Adult 18+) 61 pg/mL (<125); Troponin I < 0.012 ng/mL (0.01-0.034)
[2023-10-13 09:45] LABS: Procalcitonin 0.08 ng/mL (<0.5)
[2023-10-13] MEDS: ACETAMINOPHEN 325 MG TABLET 975 MG PO (09:52)
--- NOTE | 2023-10-13 09:55 | PC.NURSE ---
Pt c/o headache 02/19 pain. Verbal order for 975mg PO acetaminophen from Dr Solis. Pt states that he feels like he can breath better s/p neb tx. Speaking in full sentences without difficulty and no obvious work of breathing noted. Pt remains on 2L NC with o2 sat 98%.
[2023-10-13 10:00] VITALS: BP 101/67; PULSE 98; RESP 38; O2SAT 95
[2023-10-13 10:04] VITALS: BP 107/63; PULSE 97; RESP 19; O2SAT 95
[2023-10-13] MEDS: SODIUM CHLORIDE 0.9% 1,000 ML 1000 ML IV (10:10)
[2023-10-13] MEDS: ALBUTEROL 2.5 MG/3 ML NEB (ADULT) INH (10:17)
[2023-10-13 10:18] VITALS: O2SAT 96
[2023-10-13 10:30] VITALS: BP 127/59; PULSE 96; RESP 26; O2SAT 97
== END 2023-10-13 11:01 | disposition home or self-care (01) ==
PROVIDERS: Emergency Provider Emergency Medicine; PCP Family Medicine
DX: J44.9 Chronic obstructive pulmonary disease, unspecified (principal); R09.02 Hypoxemia
CPT/HCPCS: 36415; 71045; 80053; 82550; 83690; 83735; 83880; 84145; 84484; 85025; 93005; 93010; 94640; 96361; 96374; 99284; 99285; J2919; J7613

== ENCOUNTER 2023-10-29 23:15 | Emergency (ER) | payer MEDICARE, MEDICAID, SELFPAY ==
[2022-11-18 19:35] VITALS: BMI 23.6
[2023-10-29 23:20] VITALS: BP 150/70; PULSE 103; RESP 24; TEMP 36.8; O2SAT 98; BMI 25.4
[2023-10-29 23:34] VITALS: PULSE 95; RESP 44; O2SAT 97
--- NOTE | 2023-10-29 23:47 | PC.NURSE ---
Pt states that he has 25% lung function at this time.
--- NOTE | 2023-10-29 23:49 | DI.RAD.S_ITS ---
PROCEDURE: XR CHEST 1V INDICATIONS: Shortness of breath TECHNIQUE: One view of the chest was acquired. COMPARISON: [facility], , XR CHEST 1V, 10/13/2023, 9:17. [facility], CR, XR CHEST 1V, 07/10/2023, 8:08. FINDINGS: Surgical changes and devices: None. Lungs and pleura: Lungs are clear. No pleural effusions or pneumothorax. Mediastinum: Mediastinal contours appear normal. Heart size is normal. Bones and chest wall: No suspicious bony lesions. Overlying soft tissues appear unremarkable. IMPRESSION: No acute cardiopulmonary abnormality is seen. Dictated by: Nolberto Burton M.D. on 10/30/2023 at 0:01 Approved by: Nolberto Burton M.D. on 10/30/2023 at 0:01
[2023-10-29 23:58] LABS: INR 0.9 (0.9-1.3); Prothrombin Time 10.3 SECONDS (9.4-12.5)
[2023-10-30] VITALS: BP 139/65; PULSE 94; RESP 22; O2SAT 96
[2023-10-30 00:02] LABS: Alanine Aminotransferase 21 IU/L (<50); Albumin 4.2 g/dL (3.5-5.0); Albumin Globulin Ratio 1.5 (1.0-2.8); Alkaline Phosphatase 43 U/L (38-126); Aspartate Aminotransferase 43 IU/L (17-59); BUN Creatinine Ratio 27.2 (6-22); Bilirubin Total 0.6 mg/dL (0.2-1.3); Blood Urea Nitrogen 22 mg/dL (9-20); Calcium 9.3 mg/dL (8.4-10.2); Carbon Dioxide 39 mmol/L (22-32); Chloride 102 mmol/L (98-107); Estimated Glomerular Filt Rate > 60 mL/min (>60); Globulin 2.8 g/dL (1.7-4.1); Glucose 121 mg/dL (80-110); Potassium 4.6 mmol/L (3.4-5.1); Sodium 142 mmol/L (137-145)
[2023-10-30 00:03] LABS: HEMOLYSIS 107 (0-50); Lactate (Lactic Acid) 1.5 mmol/L (0.7-2.1)
[2023-10-30 00:06] LABS: Add Manual Diff / Slide Review NO; Basophils Absolute Auto 100 /uL (0-100); Basophils Percent Auto 0.5 % (0-2); Eosinophils Absolute Auto 0 /uL (0-450); Eosinophils Percent Auto 0.2 % (2-4); Hematocrit 33.4 % (41-53); Hemoglobin 10.6 g/dL (13.5-17.5); Lymphocytes Absolute Auto 900 /uL (1100-4500); Lymphocytes Percent Auto 7.2 % (25-40); Mean Corpuscular HGB Conc 31.8 % (30-36); Mean Corpuscular Hemoglobin 29.6 PG (26-34); Mean Corpuscular Volume 93.2 fL (80-100); Monocytes Absolute Auto 400 /uL (0-900); Monocytes Percent Auto 2.9 % (3-14); Neutrophils Absolute Auto 11700 /uL (1500-7000); Neutrophils Percent Auto 89.2 % (50-75); Platelet Count 157 X10^3/uL (150-400); Red Blood Cell Count 3.58 X10^6/uL (4.5-5.9); Red Cell Distribution Width 14.6 % (11.6-14.8); White Blood Cell Count 13.2 X10^3/uL (4.5-11.0)
[2023-10-30 00:14] LABS: NT-proBNP (BNP-Adult 18+) 107 pg/mL (<125); Troponin I < 0.012 ng/mL (0.01-0.034)
[2023-10-30 00:30] VITALS: BP 135/65; PULSE 91; RESP 40; O2SAT 96
[2023-10-30 01:00] VITALS: BP 153/68; PULSE 91; RESP 32; O2SAT 97
[2023-10-30 01:30] VITALS: BP 139/65; PULSE 92; RESP 16; O2SAT 97
[2023-10-30 02:00] VITALS: BP 158/71; PULSE 91; RESP 32; O2SAT 97
--- NOTE | 2023-10-30 02:10 | ED.GENADULT ---
HPI - General Adult General Chief complaint: Shortness of Breath/Dyspnea Stated complaint: SOB Time Seen by Provider: 10/30/23 02:10 Source: patient and EMS Mode of arrival: EMS History of Present Illness HPI narrative: 62-year-old gentleman with a history of oxygen and prednisone-dependent asthma/COPD/chronic bronchitis, anemia, hypertension, wheelchair-bound secondary to a prior stroke presents with increasing dyspnea. Symptoms have been worse over the last 3 days. He continues with his 10 mg of prednisone and 2 L of oxygen. He does not describe significant fevers, notes that his fatigue is worsening, because he is so tired he has not able to do much because he has not able to do much and isn't moving he is having increasing lower extremity edema. He finds that they no longer are able to find DuoNeb combination vials and he is noticing for the 1st time in a number of years that the ampule of ipratropium and an ampule of albuterol together actually seems to be causing more symptoms for him. He has not having chest pain, palpitations, nausea, vomiting, dizziness. Related Data Home Medications Medication Instructions Recorded Confirmed acetaminophen 325 mg tablet 1 dose PO PRN PRN pain 12/29/18 08/06/23 ibuprofen 200 mg tablet 1 dose PO PRN PRN pain 12/29/18 08/06/23 magnesium hydroxide 400 mg/5 mL 1 dose PO PRN PRN Indigestion 12/29/18 08/06/23 oral suspension aspirin 81 mg tablet 81 mg PO DAILY 12/30/20 08/06/23 ascorbate calcium (vitamin C) 500 500 mg PO DAILY 08/06/23 08/06/23 mg tablet Previous Rx's Medication Instructions Recorded Disabled Parking Permit #1 ea 06/24/19 nitroglycerin 0.3 mg sublingual 0.3 mg sublingual Q5-15M PRN chest 01/23/21 tablet pain #20 tabs tiotropium bromide 18 mcg capsule 18 mcg inhalation DAILY #90 08/12/21 with inhalation device (Spiriva inhalations with HandiHaler) ipratropium 0.5 mg-albuterol 3 mg 3 ml inhalation BID PRN wheezing/ 01/24/22 (2.5 mg base)/3 mL nebulization SOB #90 mL soln ipratropium 0.5 mg-albuterol 3 mg 3 ml inhalation Q4-6H PRN 01/26/22 (2.5 mg base)/3 mL nebulization shortness of breath or wheezing soln #90 mL mometasone-formoterol HFA 200 See Rx Instructions .Route 05/21/22 mcg-5 mcg/actuation aerosol .COMPLEX #13 grams inhaler (Dulera) prednisone 20 mg tablet See Rx Instructions .Route 11/21/22 .COMPLEX #13 tabs prednisone 10 mg tablet See Rx Instructions .Route 12/18/22 .COMPLEX #30 tabs prednisone 10 mg tablet 10 mg PO DAILY #30 tabs 01/17/23 simvastatin 20 mg tablet 20 mg PO DAILY #90 tabs 01/26/23 nystatin 100,000 unit/mL oral 5 ml PO QID #200 mL 04/22/23 suspension prednisone 10 mg tablets in a dose See Rx Instructions PO .COMPLEX 05/28/23 pack #27 ea benzonatate 100 mg capsule 100 mg PO BID-TID #270 caps 08/03/23 clonazepam 0.5 mg tablet 0.5 mg PO BID #60 tabs 08/04/23 azithromycin 250 mg tablet See Rx Instructions PO .COMPLEX #6 08/06/23 tabs prednisone 20 mg tablet See Rx Instructions .Route 09/01/23 .COMPLEX #90 tabs albuterol sulfate 90 mcg/actuation 1 - 2 puff PO Q4H PRN for wheezing 09/08/23 aerosol inhaler (Ventolin HFA) #54 grams ferrous gluconate 324 mg (38 mg 324 mg PO DAILY #90 tabs 09/22/23 iron) tablet montelukast 10 mg tablet 10 mg PO QPM #90 tabs 09/22/23 prednisone 10 mg tablet 10 mg PO DAILY #30 tabs 10/13/23 levofloxacin 750 mg tablet 750 mg PO DAILY #10 tabs 10/30/23 prednisone 20 mg tablet 20 mg PO DAILY #90 tabs 10/30/23 Allergies Allergy/AdvReac Type Severity Reaction Status Date / Time cinnamon [CINNAMON] Allergy Severe RESP Verified 10/13/23 09:13 PROBLEMS AND SWELLING Sulfa (Sulfonamide Allergy Severe anaphylacti Verified 10/13/23 09:13 Antibiotics) c [SULFA (SULFONAMIDE ANTIBIOTICS)] fluticasone [FLUTICASONE] Allergy Intermediate FEELS Verified 10/13/23 09:13 LIKE FIRE IN THE LUNGS trimethoprim [TRIMETHOPRIM] Allergy Unknown Patient Verified 10/13/23 09:13 can't remember codeine [CODEINE] AdvReac Intermediate violent Verified 10/13/23 09:13 doxycycline [DOXYCYCLINE] AdvReac Mild N/V Verified 10/13/23 09:13 dextromethorphan AdvReac Verified 10/13/23 09:13 fentanyl AdvReac Verified 10/13/23 09:13 Patient History Medical History Fatigue Ventricular tachycardia (paroxysmal) Anemia Palpitations GERD with stricture HTN (hypertension) Insomnia (~2015) Hyperlipidemia (~2015) Anxiety (~2015) COPD (chronic obstructive pulmonary disease) (~2013) Asthma (Unknown) TIA (transient ischemic attack) (05/2014) Hematuria (~2014) Surgical History No pertinent past surgical history Family History Mother Age: 85 Hypertension Sister Age: 68 Cancer Social History household members: none Smoking Status: Current some day smoker Tobacco: How many years used: 47 quit status: considering quitting second hand exposure: No alcohol intake: former substance use type: does not use Smoking Status: Current some day smoker tobacco type: cigarettes alcohol intake frequency: holidays/special occasions only Substance Use Type: does not use Exam Initial Vital Signs Initial Vital Signs: Vital Signs Temperature 98.2 F 10/29/23 23:20 Pulse Rate 103 H 10/29/23 23:20 Respiratory Rate 24 10/29/23 23:20 Blood Pressure 150/70 H 10/29/23 23:20 Pulse Oximetry 98 10/29/23 23:20 Oxygen Delivery Method Nasal Cannula 10/29/23 23:20 Oxygen Flow Rate 4 10/29/23 23:20 Course Orders Ordered: ED Orders 10/29/23 23:25 Complete Blood Count AUTO DIFF Stat Comprehensive Metabolic Panel Stat Lactate (Lactic Acid) Stat NT-proBNP (BNP-Adult 18+) Stat Prothrombin Time INR Stat Troponin I Stat 10/29/23 23:49 XR chest 1V Stat EKG-12 Lead Stat Measure peak expiratory flow ONCE RT Consult Eval and Treat NOW Vital Signs Vital signs: Vital Signs - 8 hr 10/29/23 23:20 10/29/23 23:34 10/30/23 00:00 Temperature 98.2 F Pulse Rate 103 H 95 H 94 H Respiratory Rate 24 44 H 22 Blood Pressure 150/70 H Pulse Oximetry 98 97 96 Oxygen Delivery Method Nasal Cannula Nasal Cannula Nasal Cannula Oxygen Flow Rate 4 2 2 10/30/23 00:00 10/30/23 00:30 10/30/23 00:30 Temperature Pulse Rate 91 H Respiratory Rate 40 H Blood Pressure 139/65 135/65 Pulse Oximetry 96 Oxygen Delivery Method Nasal Cannula Oxygen Flow Rate 2 10/30/23 01:00 10/30/23 01:00 10/30/23 01:30 Temperature Pulse Rate 91 H 92 H Respiratory Rate 32 H 16 Blood Pressure 153/68 H Pulse Oximetry 97 97 Oxygen Delivery Method Nasal Cannula Nasal Cannula Oxygen Flow Rate 2 2 10/30/23 01:30 Temperature Pulse Rate Respiratory Rate Blood Pressure 139/65 Pulse Oximetry Oxygen Delivery Method Oxygen Flow Rate Medical Decision Making Lab Data 10/29/23 23:25 10/29/23 23:25 Labs: Lab Results 10/29/23 Range/Units 23:25 WBC 13.2 H (4.5-11.0) X10^3/uL RBC 3.58 L (4.5-5.9) X10^6/uL Hgb 10.6 L (13.5-17.5) g/dL Hct 33.4 L (41-53) % MCV 93.2 (80-100) fL MCH 29.6 (26-34) PG MCHC 31.8 (30-36) % RDW 14.6 (11.6-14.8) % Plt Count 157 (150-400) X10^3/uL Neut % (Auto) 89.2 H (50-75) % Lymph % (Auto) 7.2 L (25-40) % Sherman % (Auto) 2.9 L (3-14) % Eos % (Auto) 0.2 L (2-4) % Baso % (Auto) 0.5 (0-2) % Neut # (Auto) 34103 H (1656-0451) /uL Lymph # (Auto) 900 L (4514-5029) /uL Sherman # (Auto) 400 (0-900) /uL Eos # (Auto) 0 (0-450) /uL Baso # (Auto) 100 (0-100) /uL PT 10.3 (9.4-12.5) SECONDS INR 0.9 (0.9-1.3) Sodium 142 (137-145) mmol/L Potassium 4.6 (3.4-5.1) mmol/L Chloride 102 (98-107) mmol/L Carbon Dioxide 39 H (22-32) mmol/L BUN 22 H (9-20) mg/dL Creatinine 0.81 (0.66-1.25) mg/dL Estimated GFR > 60 (>60) mL/min BUN/Creatinine Ratio 27.2 H (6-22) Glucose 121 H (80-110) mg/dL Lactate 1.5 (0.7-2.1) mmol/L Calcium 9.3 (8.4-10.2) mg/dL Total Bilirubin 0.6 (0.2-1.3) mg/dL AST 43 (17-59) IU/L ALT 21 (<50) IU/L Alkaline Phosphatase 43 (38-126) U/L Troponin I < 0.012 (0.01-0.034) ng/mL NT-Pro-B Natriuret Pep 107 (<125) pg/mL Total Protein 7.0 (6.3-8.2) g/dL Albumin 4.2 (3.5-5.0) g/dL Globulin 2.8 (1.7-4.1) g/dL Albumin/Globulin Ratio 1.5 (1.0-2.8) MDM Narrative Medical decision making narrative: CC: Increasing dyspnea and fatigue over the last number of days Complicating co-morbidities: Severe COPD, oxygen and steroid dependent, treated with azithromycin earlier this month without significant benefit Data collected from: patient Medical records reviewed: ER note from October 12 with similar presentation reviewed Differential considered: COPD exacerbation, congestive heart failure, acute coronary syndrome, pulmonary embolism is within the differential, severe anemia, significant volume overload, viral syndrome Exam documented above, pertinent findings include: Patient is able to speak in full sentences, on 2 L nasal cannula oxygen saturations are 97%. He does not have significant wheeze or rhonchi on exam and is not using accessory muscles. Cardiac exam is benign, does have 2+ bilateral lower extremity edema without chronic venous stasis changes Lab Test results independently reviewed as above. Pertinent findings: CBC has a mild leukocytosis at 13.2 with left shift at 89.2. Mild chronic anemia at 10.6 and 33.4 Chemistries are reassuring with normal creatinine Troponin is not detectable BNP is within normal limits Imaging studies independently reviewed: Chest x-ray shows no acute findings Treatments: DuoNeb inhaler, oral Levaquin and IV methyl prednisone Discussion: 62-year-old gentleman with severe COPD/asthma/emphysema with acute exacerbation over the last number of days. Given the fact that he is oxygen and steroid dependent and was recently on antibiotics along with mild leukocytosis we will place him on 10 days of levofloxacin. There was no evidence of acute sepsis. Up-to-date guidelines for acute exacerbation of COPD management are reviewed with respiratory fluoroquinolone suggested as the antibiotic of choice in the specific setting. There was no evidence of acute cardiac issues congestive heart failure, renal failure or alternate explanation for his symptoms. He notes that he has had success with pulmonary rehab in the past however he is done at enough times that insurance will no longer cover this as an option for him. With oxygen saturations at 97%, at his baseline 2 L of oxygen with oxygen at home, nebulizers at home and prednisone available at home he has not meeting criteria for inpatient stay nor does he want to stay in the hospital. We talked about increasing his prednisone with a longer taper. We will go up to 60 mg daily and will have him do 60 mg for the next 4 days decreasing by 10 mg every 4 days back to a total of 10 mg daily. Respiratory panel was done in the emergency department but will not change course of treatment so patient will leave prior to results being available. The patient was interested in knowing if he was testing positive for 1 of the viruses and felt that it would be reassuring to know that his acute exacerbation did have an explanation other than just progression of disease. Questions are answered he understands the prednisone taper as outlined, he is safe for discharge home and will follow up with his outpatient provider. Discharge Plan Departure Patient Disposition: Home Clinical Impression: Acute exacerbation of chronic obstructive pulmonary disease Instructions: DI for Chronic Obstructive Pulmonary Disease Activity Restrictions/Additional Instructions: Thank you for coming in today. I am sorry that you are continuing to suffer with pulmonary disease Your workup today does not show heart attack, collapsed lung, pneumonia, renal failure, severe anemia or alternate explanation for your worsening symptoms. We did do a respiratory panel, as results will not change recommendations for treatment I did not have you stay in the emergency department until that was available. You can call Dr. Oliva's office later today and explain you are in the emergency department, you did have a respiratory panel done and you are interested in the results In the meantime, I would suggest the ipratropium and albuterol treatments rather than using 2 vials at the same time. Wonder if the volume of liquid itself is what may be causing worsening dyspnea after this combination. I am going to suggest 10 days of levofloxacin, respiratory fluoroquinolone to help with the acute COPD exacerbations. I have given you a prescription for prednisone. Please begin taking 60 mg tomorrow and decrease by 10 mg every 4 days back to your baseline 10 mg daily dose. I would encourage you to schedule an appointment with your primary care physician when you are close to the 20 mg prednisone dosing to make sure that you can safely continue to decrease If you find that you are getting worse or develop any new symptoms, please feel free to return to the emergency department for further evaluation. Prescriptions: New levofloxacin 750 mg tablet 750 mg PO DAILY Qty: 10 0RF prednisone 20 mg tablet 20 mg PO DAILY Qty: 90 0RF Rx Instructions: begin 60mg daily on 10/30. decrease by 10mg q4 days. Remain at 10mg daily when completed taper No Action (DME) Disabled Parking Permit Qty: 1 0RF Rx Instructions: Patient qualifies for permanent disabled parking permit. ipratropium-albuterol 0.5 mg-3 mg(2.5 mg base)/3 mL solution for nebulization 3 ml INHALATION BID PRN (Reason: wheezing/ SOB) Qty: 90 11RF Dulera 200-5 mcg/actuation HFA aerosol inhaler See Rx Instructions .ROUTE .COMPLEX Qty: 13 6RF Dose Instruction: INHALE 2 PUFFS BY MOUTH TWICE DAILY Rx Instructions: INHALE 2 PUFFS BY MOUTH TWICE DAILY simvastatin 20 mg tablet 20 mg PO DAILY Qty: 90 3RF nystatin 100,000 unit/mL suspension 5 ml PO QID Qty: 200 1RF benzonatate 100 mg capsule 100 mg PO BID-TID Qty: 270 1RF clonazepam 0.5 mg tablet 0.5 mg PO BID Qty: 60 2RF prednisone 20 mg tablet See Rx Instructions .ROUTE .COMPLEX Qty: 90 1RF Dose Instruction: TAKE 1 TABLET (20 MG) BY MOUTH DAILY FOR COPD Rx Instructions: TAKE 1 TABLET (20 MG) BY MOUTH DAILY FOR COPD albuterol sulfate [Ventolin HFA] 90 mcg/actuation HFA aerosol inhaler 1 - 2 puff PO Q4H PRN (Reason: for wheezing) Qty: 54 1RF ferrous gluconate 324 mg (38 mg iron) tablet 324 mg PO DAILY Qty: 90 1RF montelukast 10 mg tablet 10 mg PO QPM Qty: 90 3RF Spiriva with HandiHaler 18 mcg capsule, w/inhalation device 18 mcg inhalation DAILY Qty: 90 3RF ascorbate calcium (vitamin C) 500 mg tablet 500 mg PO DAILY azithromycin 250 mg tablet See Rx Instructions PO .COMPLEX Qty: 6 0RF Rx Instructions: For 250 mg dose pack: take 500 mg today (day 1), then 250 mg for 4 days (days 2-5) PO acetaminophen 325 mg Tablet 1 dose PO PRN PRN (Reason: pain) magnesium hydroxide 400 mg/5 mL Suspension 1 dose PO PRN PRN (Reason: Indigestion) Patient Comments: patient states uses often Mylanta ibuprofen 200 mg Tablet 1 dose PO PRN PRN (Reason: pain) aspirin 81 mg Tablet 81 mg PO DAILY nitroglycerin 0.3 mg tablet, sublingual 0.3 mg sublingual Q5-15M PRN (Reason: chest pain) Qty: 20 0RF Rx Instructions: do not exceed 3 doses per episode ipratropium-albuterol 0.5 mg-3 mg(2.5 mg base)/3 mL solution for nebulization 3 ml INHALATION Q4-6H PRN (Reason: shortness of breath or wheezing) Qty: 90 0RF prednisone 20 mg tablet See Rx Instructions .ROUTE .COMPLEX Qty: 13 0RF Rx Instructions: 60 mg (3 pills) daily for 2 days, then 40 mg (2 pills) daily for 2 days, then 20mg (1 pill) daily for 2 days then 10mg (1/2 pill) for 2 days then stop prednisone 10 mg tablet 10 mg PO DAILY Qty: 30 0RF Rx Instructions: day 1-3: 40 mg once a day day 4-6: 30 mg once a day day 7-9: 20 mg once a day day 10-12: 10 mg once a day prednisone 10 mg tablets,dose pack See Rx Instructions .ROUTE .COMPLEX Qty: 27 0RF Rx Instructions: Take 40 mg p.o. daily x3 days, then 30 mg p.o. daily x3 days, then 20 mg p.o. daily x3 days, then return to your usual 10 mg daily prednisone 10 mg tablet See Rx Instructions .ROUTE .COMPLEX Qty: 30 0RF Rx Instructions: Day 1,2,3: 40mg PO Daily Day 4,5,6: 30mg PO Daily Day 7,8,9: 20mg PO Daily Day 10,11,12: 10mg PO Daily #30 prednisone 10 mg tablet 10 mg PO DAILY Qty: 30 0RF Rx Instructions: day 1-3: 40 mg once a day day 4-6: 30 mg once a day day 7-9: 20 mg once a day day 10-12: 10 mg once a day Referrals: Saqib Oliva, [Primary Care Provider] - Stand Alone Forms: Patient Portal/API
[2023-10-30 02:30] VITALS: BP 153/70; PULSE 86; RESP 29; O2SAT 97
[2023-10-30] MEDS: methylPREDNISolone 125 MG/2 ML VIAL IV (02:42)
[2023-10-30] MEDS: levoFLOXacin 250 MG TABLET 750 MG PO (02:42)
[2023-10-30] MEDS: ALBUTEROL/IPRATROPIUM 3 ML AMPUL INH (02:42)
[2023-10-30 03:32] LABS: Adenovirus Not Detected (Not Detect); B. parapertussis Not Detected (Not Detecte); Bordetella pertussis Not Detected (Not Detect); Chlamydophila pneumoniae Not Detected (Not Detect); Coronavirus 229E Not Detected (Not Detect); Coronavirus HKU1 Not Detected (Not Detect); Coronavirus NL 63 Not Detected (Not Detect); Coronavirus OC43 Not Detected (Not Detect); Human Metapneumovirus Not Detected (Not Detect); Human Rhinovirus/Enterovirus Not Detected (Not Detect); Influenza A Not Detected (Not Detect); Influenza B Not Detected (Not Detect); Mycoplasma pneumoniae Not Detected (Not Detect); Parainfluenza Virus 1 Not Detected (Not Detect); Parainfluenza Virus 2 Not Detected (Not Detect); Parainfluenza Virus 3 Not Detected (Not Detect); Parainfluenza Virus 4 Not Detected (Not Detect); Respiratory Syncytial Virus Not Detected (Not Detect); SARS- CoV-2 Not Detected (Not Detecte)
== END 2023-10-30 03:38 | disposition home or self-care (01) ==
PROVIDERS: Emergency Provider Emergency Medicine; PCP Family Medicine
DX: J44.1 Chronic obstructive pulmonary disease with (acute) exacerbation (principal); F17.210 Nicotine dependence, cigarettes, uncomplicated; Z99.81 Dependence on supplemental oxygen; Z79.52 Long term (current) use of systemic steroids
CPT/HCPCS: 36415; 71045; 80053; 83605; 83880; 84484; 85025; 85610; 87633; 96374; 99284; 99285; J2919

== ENCOUNTER 2023-11-23 13:50 | Emergency (ER) | payer MEDICARE, MEDICAID, SELFPAY ==
[2022-11-18 19:35] VITALS: BMI 23.6
[2023-11-23] VITALS (11 sets, daily range): BP systolic 126–151; BP diastolic 73–79; PULSE 106–125; RESP 13–34; TEMP 36.8–37.1; O2SAT 92–97; BMI 23.6
--- NOTE | 2023-11-23 14:11 | DI.RAD.S_ITS ---
PROCEDURE: XR CHEST 1V INDICATIONS: Shortness of breath TECHNIQUE: One view of the chest was acquired. COMPARISON: [facility], CR, XR CHEST 1V, 10/29/2023, 23:50. FINDINGS: Surgical changes and devices: None. Lungs and pleura: There is interval development of airspace opacities in right mid to lower lung silva suggestive of extensive right-sided infiltrates. Mild pulmonary vascular congestion is seen. No definite left-sided infiltrate. No pleural effusions or pneumothorax. Mediastinum: Mediastinal contours appear normal. Heart size is normal. Bones and chest wall: No suspicious bony lesions. Overlying soft tissues appear unremarkable. IMPRESSION: Pulmonary vascular congestion and patchy infiltrates in right mid to lower lung silva. No pleural effusion or pneumothorax. Dictated by: Giuseppe Fonseca M.D. on 11/23/2023 at 15:02 Approved by: Giuseppe Fonseca M.D. on 11/23/2023 at 15:02
[2023-11-23] MEDS: ALBUTEROL 2.5 MG/3 ML NEB (ADULT) 5 MG INH ×3 (14:27→16:10)
[2023-11-23 14:28] LABS: Add Manual Diff / Slide Review NO; Basophils Absolute Auto 0 /uL (0-100); Basophils Percent Auto 0.4 % (0-2); Eosinophils Absolute Auto 100 /uL (0-450); Eosinophils Percent Auto 0.5 % (2-4); Hematocrit 28.5 % (41-53); Hemoglobin 9.1 g/dL (13.5-17.5); Lymphocytes Absolute Auto 800 /uL (1100-4500); Lymphocytes Percent Auto 6.8 % (25-40); Mean Corpuscular Hemoglobin 28.5 PG (26-34); Mean Corpuscular Volume 88.8 fL (80-100); Monocytes Absolute Auto 900 /uL (0-900); Monocytes Percent Auto 7.9 % (3-14); Neutrophils Absolute Auto 9600 /uL (1500-7000); Neutrophils Percent Auto 84.4 % (50-75); Platelet Count 220 X10^3/uL (150-400); Red Blood Cell Count 3.21 X10^6/uL (4.5-5.9); Red Cell Distribution Width 14.3 % (11.6-14.8); White Blood Cell Count 11.4 X10^3/uL (4.5-11.0)
[2023-11-23 14:35] LABS: Prothrombin Time 11.3 SECONDS (9.4-12.5)
[2023-11-23 14:40] LABS: Alanine Aminotransferase 20 IU/L (<50); Albumin Globulin Ratio 1.2 (1.0-2.8); Alkaline Phosphatase 64 U/L (38-126); Aspartate Aminotransferase 24 IU/L (17-59); Bilirubin Total 0.2 mg/dL (0.2-1.3); Blood Urea Nitrogen 20 mg/dL (9-20); Calcium 9.8 mg/dL (8.4-10.2); Carbon Dioxide 38 mmol/L (22-32); Chloride 100 mmol/L (98-107); Estimated Glomerular Filt Rate > 60 mL/min (>60); Globulin 3.4 g/dL (1.7-4.1); Glucose 131 mg/dL (80-110); HEMOLYSIS < 15 (0-50); Potassium 4.4 mmol/L (3.4-5.1); Sodium 140 mmol/L (137-145); Total Protein 7.4 g/dL (6.3-8.2)
[2023-11-23 14:41] LABS: Lactate (Lactic Acid) 1.6 mmol/L (0.7-2.1)
[2023-11-23 14:51] LABS: NT-proBNP (BNP-Adult 18+) 82 pg/mL (<125); Troponin I < 0.012 ng/mL (0.01-0.034)
--- NOTE | 2023-11-23 15:09 | ED.GENADULT ---
HPI - General Adult General Chief complaint: Shortness of Breath/Dyspnea Stated complaint: low oxygen level Time Seen by Provider: 11/23/23 14:21 Source: patient Mode of arrival: Family Vehicle History of Present Illness HPI narrative: Patient is a 62-year-old male. History of COPD and asthma. Does see pulmonology. Is on oxygen by nasal cannula 2 L 247. He states that he occasionally has issues where he becomes very short of breath and this is what happened to him today. He has been coughing recently. No fevers. No chest pain. He has been doing his inhalers at home and MDI without much improvement. No sore throat. Is having some sinus congestion. Arrived in the emergency department hypoxic with an oxygen saturation in the 80s despite being on 4 L. Related Data Home Medications Medication Instructions Recorded Confirmed acetaminophen 325 mg tablet 1 dose PO PRN PRN pain 12/29/18 11/09/23 ibuprofen 200 mg tablet 1 dose PO PRN PRN pain 12/29/18 11/09/23 magnesium hydroxide 400 mg/5 mL 1 dose PO PRN PRN Indigestion 12/29/18 11/09/23 oral suspension aspirin 81 mg tablet 81 mg PO DAILY 12/30/20 11/09/23 ascorbate calcium (vitamin C) 500 500 mg PO DAILY 08/06/23 11/09/23 mg tablet Previous Rx's Medication Instructions Recorded Disabled Parking Permit #1 ea 06/24/19 nitroglycerin 0.3 mg sublingual 0.3 mg sublingual Q5-15M PRN chest 01/23/21 tablet pain #20 tabs tiotropium bromide 18 mcg capsule 18 mcg inhalation DAILY #90 08/12/21 with inhalation device (Spiriva inhalations with HandiHaler) ipratropium 0.5 mg-albuterol 3 mg 3 ml inhalation BID PRN wheezing/ 01/24/22 (2.5 mg base)/3 mL nebulization SOB #90 mL soln ipratropium 0.5 mg-albuterol 3 mg 3 ml inhalation Q4-6H PRN 01/26/22 (2.5 mg base)/3 mL nebulization shortness of breath or wheezing soln #90 mL simvastatin 20 mg tablet 20 mg PO DAILY #90 tabs 01/26/23 nystatin 100,000 unit/mL oral 5 ml PO QID #200 mL 04/22/23 suspension benzonatate 100 mg capsule 100 mg PO BID-TID #270 caps 08/03/23 prednisone 20 mg tablet See Rx Instructions .Route 09/01/23 .COMPLEX #90 tabs albuterol sulfate 90 mcg/actuation 1 - 2 puff PO Q4H PRN for wheezing 09/08/23 aerosol inhaler (Ventolin HFA) #54 grams ferrous gluconate 324 mg (38 mg 324 mg PO DAILY #90 tabs 09/22/23 iron) tablet montelukast 10 mg tablet 10 mg PO QPM #90 tabs 09/22/23 prednisone 10 mg tablet 10 mg PO DAILY #30 tabs 10/13/23 prednisone 20 mg tablet 20 mg PO DAILY #90 tabs 10/30/23 mupirocin 2 % topical ointment 1 applic topical BID #15 grams 11/09/23 clonazepam 0.5 mg tablet 0.5 mg PO TID #90 tabs 11/10/23 mometasone-formoterol HFA 200 See Rx Instructions .Route 11/13/23 mcg-5 mcg/actuation aerosol .COMPLEX #13 grams inhaler (Dulera) Allergies Allergy/AdvReac Type Severity Reaction Status Date / Time cinnamon [CINNAMON] Allergy Severe RESP Verified 11/09/23 15:05 PROBLEMS AND SWELLING Sulfa (Sulfonamide Allergy Severe anaphylacti Verified 11/09/23 15:05 Antibiotics) c [SULFA (SULFONAMIDE ANTIBIOTICS)] fluticasone [FLUTICASONE] Allergy Intermediate FEELS Verified 11/09/23 15:05 LIKE FIRE IN THE LUNGS trimethoprim [TRIMETHOPRIM] Allergy Unknown Patient Verified 11/09/23 15:05 can't remember codeine [CODEINE] AdvReac Intermediate violent Verified 11/09/23 15:05 doxycycline [DOXYCYCLINE] AdvReac Mild N/V Verified 11/09/23 15:05 dextromethorphan AdvReac Verified 11/09/23 15:05 fentanyl AdvReac Verified 11/09/23 15:05 Review of Systems Review of Systems ROS Unobtainable: All systems reviewed & are unremarkable except as noted in HPI and below Patient History Medical History Fatigue Ventricular tachycardia (paroxysmal) Anemia Palpitations GERD with stricture HTN (hypertension) Insomnia (~2015) Hyperlipidemia (~2015) Anxiety (~2016) COPD (chronic obstructive pulmonary disease) (~2013) Asthma (Unknown) TIA (transient ischemic attack) (05/2014) Hematuria (~2014) Surgical History No pertinent past surgical history Family History Mother Age: 85 Hypertension Sister Age: 68 Cancer Social History household members: none Smoking Status: Current some day smoker Tobacco: How many years used: 47 quit status: considering quitting second hand exposure: No alcohol intake: former substance use type: does not use Smoking Status: Current some day smoker tobacco type: cigarettes alcohol intake frequency: holidays/special occasions only Substance Use Type: does not use Exam Initial Vital Signs Initial Vital Signs: Vital Signs Temperature 98.7 F 11/23/23 14:08 Pulse Rate 118 H 11/23/23 14:08 Respiratory Rate 26 H 11/23/23 14:08 Blood Pressure 136/76 11/23/23 14:08 Pulse Oximetry 92 11/23/23 14:08 Oxygen Delivery Method Nasal Cannula 11/23/23 14:08 Oxygen Flow Rate 2 11/23/23 14:08 Const General: cooperative Other: Chronically ill-appearing Resp Effort & Inspection: cough, labored, no retractions and tachypneic Auscultation: diminished lung sounds and wheezes Cardio Rate: tachycardic Rhythm: regular rhythm Neuro General: patient alert, patient awake, patient oriented x3 and moves all extremities Course Orders Ordered: ED Orders 11/23/23 14:11 XR chest 1V Stat EKG-12 Lead Stat Measure peak expiratory flow ONCE RT Consult Eval and Treat NOW 11/23/23 14:19 Complete Blood Count AUTO DIFF Stat Comprehensive Metabolic Panel Stat Lactate (Lactic Acid) Stat NT-proBNP (BNP-Adult 18+) Stat Prothrombin Time INR Stat Troponin I Stat 11/23/23 15:11 Covid-19 + FLU A/B + RSV - PCR Stat Discontinued Medications Albuterol (Albuterol 2.5 Mg/3 Ml Neb (Adult)) 5 mg INH NOW ONE Stop: 11/23/23 14:22 Last Admin: 11/23/23 14:27 Dose: 5 mg Documented By: MANPREET Albuterol (Albuterol 2.5 Mg/3 Ml Neb (Adult)) 5 mg INH NOW ONE Stop: 11/23/23 15:11 Last Admin: 11/23/23 15:29 Dose: 5 mg Documented By: MANPREET Albuterol (Albuterol 2.5 Mg/3 Ml Neb (Adult)) 5 mg INH NOW ONE Stop: 11/23/23 16:03 Last Admin: 11/23/23 16:10 Dose: 5 mg Documented By: MANPREET Vital Signs Vital signs: Vital Signs - 8 hr 11/23/23 14:08 11/23/23 14:10 11/23/23 14:27 Temperature 98.7 F Pulse Rate 118 H 125 H 109 H Respiratory Rate 26 H 34 H 26 H Blood Pressure 136/76 Pulse Oximetry 92 97 Oxygen Delivery Method Nasal Cannula Nasal Cannula Oxygen Flow Rate 2 2 Fraction of Inspired Oxygen 28 11/23/23 14:30 11/23/23 14:30 11/23/23 15:00 Temperature Pulse Rate 106 H 113 H Respiratory Rate 13 24 Blood Pressure 126/74 Pulse Oximetry 97 96 Oxygen Delivery Method Nasal Cannula Nasal Cannula Oxygen Flow Rate 2 2 Fraction of Inspired Oxygen 11/23/23 15:00 11/23/23 15:29 11/23/23 15:30 Temperature Pulse Rate 109 H 110 H Respiratory Rate 24 16 Blood Pressure 135/78 Pulse Oximetry 96 96 Oxygen Delivery Method Nasal Cannula Nasal Cannula Oxygen Flow Rate 2 2 Fraction of Inspired Oxygen 28 11/23/23 15:30 11/23/23 16:10 Temperature Pulse Rate 115 H Respiratory Rate 22 Blood Pressure 151/79 H Pulse Oximetry 96 Oxygen Delivery Method Nasal Cannula Oxygen Flow Rate 2 Fraction of Inspired Oxygen 28 Medical Decision Making Medical Records Medical records reviewed: Yes I reviewed the patient's medical records. Lab Data Lab results reviewed: Yes I reviewed the patient's lab results. 11/23/23 14:19 11/23/23 14:19 Labs: Lab Results 11/23/23 11/23/23 Range/Units 14:19 15:11 WBC 11.4 H (4.5-11.0) X10^3/uL RBC 3.21 L (4.5-5.9) X10^6/uL Hgb 9.1 L (13.5-17.5) g/dL Hct 28.5 L (41-53) % MCV 88.8 (80-100) fL MCH 28.5 (26-34) PG MCHC 32.0 (30-36) % RDW 14.3 (11.6-14.8) % Plt Count 220 (150-400) X10^3/uL Neut % (Auto) 84.4 H (50-75) % Lymph % (Auto) 6.8 L (25-40) % Pierce % (Auto) 7.9 (3-14) % Eos % (Auto) 0.5 L (2-4) % Baso % (Auto) 0.4 (0-2) % Neut # (Auto) 9600 H (5292-0161) /uL Lymph # (Auto) 800 L (7100-3071) /uL Pierce # (Auto) 900 (0-900) /uL Eos # (Auto) 100 (0-450) /uL Baso # (Auto) 0 (0-100) /uL PT 11.3 (9.4-12.5) SECONDS INR 1.0 (0.9-1.3) Sodium 140 (137-145) mmol/L Potassium 4.4 (3.4-5.1) mmol/L Chloride 100 (98-107) mmol/L Carbon Dioxide 38 H (22-32) mmol/L BUN 20 (9-20) mg/dL Creatinine 0.80 (0.66-1.25) mg/dL Estimated GFR > 60 (>60) mL/min BUN/Creatinine Ratio 25.0 H (6-22) Glucose 131 H (80-110) mg/dL Lactate 1.6 (0.7-2.1) mmol/L Calcium 9.8 (8.4-10.2) mg/dL Total Bilirubin 0.2 (0.2-1.3) mg/dL AST 24 (17-59) IU/L ALT 20 (<50) IU/L Alkaline Phosphatase 64 (38-126) U/L Troponin I < 0.012 (0.01-0.034) ng/mL NT-Pro-B Natriuret Pep 82 (<125) pg/mL Total Protein 7.4 (6.3-8.2) g/dL Albumin 4.0 (3.5-5.0) g/dL Globulin 3.4 (1.7-4.1) g/dL Albumin/Globulin Ratio 1.2 (1.0-2.8) SARS-CoV-2 (PCR) Negative (Negative) Influenza A (RT-PCR) Flu a negative (NEGATIVE) Influenza B (RT-PCR) Flu b negative (NEGATIVE) RSV (PCR) Negative (Negative) Imaging Data Chest x-ray: Radiologist's Impression: PROCEDURE: XR CHEST 1V INDICATIONS: Shortness of breath TECHNIQUE: One view of the chest was acquired. COMPARISON: [facility], , XR CHEST 1V, 10/29/2023, 23:50. FINDINGS: Surgical changes and devices: None. Lungs and pleura: There is interval development of airspace opacities in right mid to lower lung silva suggestive of extensive right-sided infiltrates. Mild pulmonary vascular congestion is seen. No definite left-sided infiltrate. No pleural effusions or pneumothorax. Mediastinum: Mediastinal contours appear normal. Heart size is normal. Bones and chest wall: No suspicious bony lesions. Overlying soft tissues appear unremarkable. IMPRESSION: Pulmonary vascular congestion and patchy infiltrates in right mid to lower lung silva. No pleural effusion or pneumothorax. ECG Data Attestation: I personally reviewed and interpreted this ECG as follows: Interpretation: Sinus tachycardia Ventricular rate 110 Normal axis Normal QRS No ST T wave changes MDM Narrative Medical decision making narrative: After multiple nebulizer treatments here in the emergency department he states he was feeling back to baseline. There was no indication for antibiotics. I suspect that his disease processes just been worsening recently which is causing him to have quite a bit of fatigue even with very slight movements. No indication for antibiotics. 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 Low suspicion for ACS. He has not clinically in heart failure. Will discharge patient home with instructions to contact his primary doctor for follow-up. He was given return precautions. He expressed understanding and agreement. Discharge Plan Departure Patient Disposition: Home Clinical Impression: COPD (chronic obstructive pulmonary disease) Instructions: Chronic Obstructive Pulmonary Disease Activity Restrictions/Additional Instructions: Recommend that you continue to take all of your medications as directed. Contact your primary care doctor and your lead systems engineer for a follow-up. Return to the emergency department for new or worsening symptoms. Prescriptions: No Action (DME) Disabled Parking Permit Qty: 1 0RF Rx Instructions: Patient qualifies for permanent disabled parking permit. ipratropium-albuterol 0.5 mg-3 mg(2.5 mg base)/3 mL solution for nebulization 3 ml INHALATION BID PRN (Reason: wheezing/ SOB) Qty: 90 11RF simvastatin 20 mg tablet 20 mg PO DAILY Qty: 90 3RF nystatin 100,000 unit/mL suspension 5 ml PO QID Qty: 200 1RF benzonatate 100 mg capsule 100 mg PO BID-TID Qty: 270 1RF prednisone 20 mg tablet See Rx Instructions .ROUTE .COMPLEX Qty: 90 1RF Dose Instruction: TAKE 1 TABLET (20 MG) BY MOUTH DAILY FOR COPD Rx Instructions: TAKE 1 TABLET (20 MG) BY MOUTH DAILY FOR COPD albuterol sulfate [Ventolin HFA] 90 mcg/actuation HFA aerosol inhaler 1 - 2 puff PO Q4H PRN (Reason: for wheezing) Qty: 54 1RF ferrous gluconate 324 mg (38 mg iron) tablet 324 mg PO DAILY Qty: 90 1RF montelukast 10 mg tablet 10 mg PO QPM Qty: 90 3RF clonazepam 0.5 mg tablet 0.5 mg PO TID Qty: 90 2RF Dulera 200-5 mcg/actuation HFA aerosol inhaler See Rx Instructions .ROUTE .COMPLEX Qty: 13 6RF Dose Instruction: INHALE 2 PUFFS BY MOUTH TWICE DAILY Rx Instructions: INHALE 2 PUFFS BY MOUTH TWICE DAILY Spiriva with HandiHaler 18 mcg capsule, w/inhalation device 18 mcg inhalation DAILY Qty: 90 3RF ascorbate calcium (vitamin C) 500 mg tablet 500 mg PO DAILY mupirocin 2 % ointment 1 applic topical BID Qty: 15 0RF Rx Instructions: apply to bed sore acetaminophen 325 mg Tablet 1 dose PO PRN PRN (Reason: pain) magnesium hydroxide 400 mg/5 mL Suspension 1 dose PO PRN PRN (Reason: Indigestion) Patient Comments: patient states uses often Mylanta ibuprofen 200 mg Tablet 1 dose PO PRN PRN (Reason: pain) aspirin 81 mg Tablet 81 mg PO DAILY nitroglycerin 0.3 mg tablet, sublingual 0.3 mg sublingual Q5-15M PRN (Reason: chest pain) Qty: 20 0RF Rx Instructions: do not exceed 3 doses per episode ipratropium-albuterol 0.5 mg-3 mg(2.5 mg base)/3 mL solution for nebulization 3 ml INHALATION Q4-6H PRN (Reason: shortness of breath or wheezing) Qty: 90 0RF prednisone 10 mg tablet 10 mg PO DAILY Qty: 30 0RF Rx Instructions: day 1-3: 40 mg once a day day 4-6: 30 mg once a day day 7-9: 20 mg once a day day 10-12: 10 mg once a day prednisone 20 mg tablet 20 mg PO DAILY Qty: 90 0RF Rx Instructions: begin 60mg daily on 10/30. decrease by 10mg q4 days. Remain at 10mg daily when completed taper Referrals: Saqib Oliva, [Primary Care Provider] - Stand Alone Forms: Patient Portal/API
[2023-11-23 16:01] LABS: Influenza A - CEPHEID Flu A NEGATIVE (NEGATIVE); Influenza B - CEPHEID Flu B NEGATIVE (NEGATIVE); Respiratory Syncytial Virus Negative (Negative)
[2023-11-23 16:05] LABS: COVID-19 CEPHEID 4-PLEX PCR Negative (Negative)
== END 2023-11-23 17:13 | disposition home or self-care (01) ==
PROVIDERS: Emergency Provider Emergency Medicine; PCP Family Medicine
DX: J44.9 Chronic obstructive pulmonary disease, unspecified (principal); F17.210 Nicotine dependence, cigarettes, uncomplicated; R00.0 Tachycardia, unspecified
CPT/HCPCS: 0241U; 36415; 71045; 80053; 83605; 83880; 84484; 85025; 85610; 93005; 93010; 99284; 99285; J7613

== ENCOUNTER 2023-12-14 10:38 | Emergency (ER) | payer MEDICARE, MEDICAID, SELFPAY ==
[2022-11-18 19:35] VITALS: BMI 23.6
[2023-12-14] VITALS (33 sets, daily range): BP systolic 125–152; BP diastolic 56–75; PULSE 84–108; RESP 13–30; TEMP 36.7–37.2; O2SAT 93–99
--- NOTE | 2023-12-14 10:59 | DI.RAD.S_ITS ---
PROCEDURE: XR CHEST 1V INDICATIONS: chest pain TECHNIQUE: One view of the chest was acquired. COMPARISON: [facility], CR, XR CHEST 1V, 10/29/2023, 23:50. [facility], CR, XR CHEST 1V, 10/13/2023, 9:17. [facility], CR, XR CHEST 1V, 11/23/2023, 14:30. FINDINGS: Surgical changes and devices: None. Lungs and pleura: Improving, poorly defined opacity can be seen within the right mid lung laterally. On this semiupright portable chest examination, no large pneumothorax or large pleural effusions are seen. Mediastinum: Mediastinal contours appear normal. Heart size is normal. Bones and chest wall: No suspicious bony lesions. Age-appropriate bony degenerative changes are seen. Overlying soft tissues appear unremarkable. IMPRESSION: Improving poorly defined opacity seen within the right mid lung laterally. Dictated by: Pio Lennon M.D. on 12/14/2023 at 10:19 Approved by: Pio Lennon M.D. on 12/14/2023 at 10:20
[2023-12-14 11:10] LABS: Prothrombin Time 11.3 SECONDS (9.4-12.5)
[2023-12-14 11:13] LABS: PTT Partial Thromboplastin Tim 34 SECONDS (25.1-36.5)
[2023-12-14 11:14] LABS: Alanine Aminotransferase 14 IU/L (<50); Albumin 3.4 g/dL (3.5-5.0); Albumin Globulin Ratio 1.1 (1.0-2.8); Alkaline Phosphatase 56 U/L (38-126); Aspartate Aminotransferase 34 IU/L (17-59); BUN Creatinine Ratio 19.3 (6-22); Bilirubin Total 0.3 mg/dL (0.2-1.3); Blood Urea Nitrogen 16 mg/dL (9-20); Calcium 8.5 mg/dL (8.4-10.2); Carbon Dioxide 35 mmol/L (22-32); Chloride 104 mmol/L (98-107); Creatine Kinase 67 U/L (55-170); Estimated Glomerular Filt Rate > 60 mL/min (>60); Glucose 93 mg/dL (80-110); HEMOLYSIS < 15 (0-50); Lipase 208 U/L (23-300); Magnesium 2.1 mg/dL (1.6-2.3); Sodium 140 mmol/L (137-145); Total Protein 6.4 g/dL (6.3-8.2)
[2023-12-14 11:18] LABS: Lactate (Lactic Acid) 1.3 mmol/L (0.7-2.1)
[2023-12-14 11:25] LABS: Troponin I < 0.012 ng/mL (0.01-0.034)
[2023-12-14 11:37] LABS: Allen Test for ABG Passed? Yes, Passed; Blood Gas Collection Site Left Radial; Fractionated Inspired Oxygen 24; HCO3 ABG 33 mmol/L (23-27); Oxygen Saturation ABG 97 % (95-100); PCO2 ABG 49.8 mmHg (35-45); PO2 ABG 87 mmHg (80-100); TCO2 ABG 34 mmol/L (23-27); pH ABG 7.43 (7.35-7.45)
[2023-12-14] MEDS: ALBUTEROL/IPRATROPIUM 3 ML AMPUL 6 ML INH (11:41)
[2023-12-14] MEDS: ALBUTEROL/IPRATROPIUM 3 ML AMPUL INH (11:41)
[2023-12-14] MEDS: methylPREDNISolone 125 MG/2 ML VIAL IV (11:54)
--- NOTE | 2023-12-14 11:56 | ED.SOB ---
HPI - SOB/Dyspnea <Eric Cardoza MD - Last Filed: 12/15/23 06:56> General Chief Complaint: Shortness of Breath/Dyspnea Stated Complaint: gen weakness x2days Time Seen by Provider: 12/14/23 10:50 Source: patient and EMS Mode of arrival: EMS Limitations: no limitations History of Present Illness HPI Narrative: 63-year-old male with history of COPD, chronic oxygen use 2-2.5 liters/minute most recent, seen here for exacerbation symptoms on 11/23/2023 and was weaned back to his baseline oxygen and sent home, pneumonia was suspected, he completed a 10 day course of Levaquin antibiotic. Now with a couple of days of increasing cough increasing shortness of breath and generalized weakness. He denies focal weakness to face arm or leg, no numbness to face arm or leg. No fevers or chills. He has been using his home breathing treatments well, he has not been titrating up his oxygen use. He denies black or red stools, denies gross hematuria, denies nosebleeds. Related Data Home Medications Medication Instructions Recorded Confirmed acetaminophen 325 mg tablet 1 dose PO PRN PRN pain 12/29/18 11/09/23 ibuprofen 200 mg tablet 1 dose PO PRN PRN pain 12/29/18 11/09/23 magnesium hydroxide 400 mg/5 mL 1 dose PO PRN PRN Indigestion 12/29/18 11/09/23 oral suspension aspirin 81 mg tablet 81 mg PO DAILY 12/30/20 11/09/23 ascorbate calcium (vitamin C) 500 500 mg PO DAILY 08/06/23 11/09/23 mg tablet Previous Rx's Medication Instructions Recorded Disabled Parking Permit #1 ea 06/24/19 nitroglycerin 0.3 mg sublingual 0.3 mg sublingual Q5-15M PRN chest 01/23/21 tablet pain #20 tabs tiotropium bromide 18 mcg capsule 18 mcg inhalation DAILY #90 08/12/21 with inhalation device (Spiriva inhalations with HandiHaler) ipratropium 0.5 mg-albuterol 3 mg 3 ml inhalation BID PRN wheezing/ 01/24/22 (2.5 mg base)/3 mL nebulization SOB #90 mL soln ipratropium 0.5 mg-albuterol 3 mg 3 ml inhalation Q4-6H PRN 01/26/22 (2.5 mg base)/3 mL nebulization shortness of breath or wheezing soln #90 mL simvastatin 20 mg tablet 20 mg PO DAILY #90 tabs 01/26/23 nystatin 100,000 unit/mL oral 5 ml PO QID #200 mL 04/22/23 suspension benzonatate 100 mg capsule 100 mg PO BID-TID #270 caps 08/03/23 prednisone 20 mg tablet See Rx Instructions .Route 09/01/23 .COMPLEX #90 tabs albuterol sulfate 90 mcg/actuation 1 - 2 puff PO Q4H PRN for wheezing 09/08/23 aerosol inhaler (Ventolin HFA) #54 grams ferrous gluconate 324 mg (38 mg 324 mg PO DAILY #90 tabs 09/22/23 iron) tablet montelukast 10 mg tablet 10 mg PO QPM #90 tabs 09/22/23 prednisone 10 mg tablet 10 mg PO DAILY #30 tabs 10/13/23 prednisone 20 mg tablet 20 mg PO DAILY #90 tabs 10/30/23 mupirocin 2 % topical ointment 1 applic topical BID #15 grams 11/09/23 clonazepam 0.5 mg tablet 0.5 mg PO TID #90 tabs 11/10/23 mometasone-formoterol HFA 200 See Rx Instructions .Route 11/13/23 mcg-5 mcg/actuation aerosol .COMPLEX #13 grams inhaler (Dulera) prednisone 20 mg tablet 40 mg (2 x 20 mg) PO DAILY 5 days 12/14/23 #10 tabs Allergies Allergy/AdvReac Type Severity Reaction Status Date / Time cinnamon [CINNAMON] Allergy Severe RESP Verified 12/14/23 10:49 PROBLEMS AND SWELLING Sulfa (Sulfonamide Allergy Severe anaphylacti Verified 12/14/23 10:49 Antibiotics) c [SULFA (SULFONAMIDE ANTIBIOTICS)] fluticasone [FLUTICASONE] Allergy Intermediate FEELS Verified 12/14/23 10:49 LIKE FIRE IN THE LUNGS trimethoprim [TRIMETHOPRIM] Allergy Unknown Patient Verified 12/14/23 10:49 can't remember codeine [CODEINE] AdvReac Intermediate violent Verified 12/14/23 10:49 doxycycline [DOXYCYCLINE] AdvReac Mild N/V Verified 12/14/23 10:49 dextromethorphan AdvReac Verified 12/14/23 10:49 fentanyl AdvReac Verified 12/14/23 10:49 Review of Systems <Eric Cardoza MD - Last Filed: 12/15/23 06:56> Review of Systems Narrative: as per HPI Patient History <Eric Cardoza MD - Last Filed: 12/15/23 06:56> Medical History Fatigue Ventricular tachycardia (paroxysmal) Anemia Palpitations GERD with stricture HTN (hypertension) Insomnia (~2015) Hyperlipidemia (~2015) Anxiety (~2015) COPD (chronic obstructive pulmonary disease) (~2013) Asthma (Unknown) TIA (transient ischemic attack) (05/2014) Hematuria (~2014) Surgical History No pertinent past surgical history Family History Mother Age: 85 Hypertension Sister Age: 68 Cancer Social History household members: none Smoking Status: Current some day smoker Tobacco: How many years used: 47 quit status: considering quitting second hand exposure: No alcohol intake: former substance use type: does not use Smoking Status: Current some day smoker tobacco type: cigarettes alcohol intake frequency: holidays/special occasions only Substance Use Type: does not use Exam <Eric Cardoza MD - Last Filed: 12/15/23 06:56> Narrative Exam Narrative: GENERAL: Well-developed patient, in mild distress. HEAD: Atraumatic. Normocephalic. EYES: Pupils equal round and reactive. Extraocular motions intact. No scleral icterus. No injection or drainage. ENT: Nose without bleeding, purulent drainage. Throat without erythema, tonsillar hypertrophy or exudate. Airway patent. NECK: Trachea midline. Non tender CARDIOVASCULAR: Regular rate and rhythm without murmurs, gallops, or rubs. RESPIRATORY: Clear to auscultation after initial Atrovent SVN per RT. Breath sounds equal bilaterally. No wheezes, rales, or rhonchi. Some increased work of breathing, no intercostal retractions, speaking in full sentences GASTROINTESTINAL: Abdomen soft, non-tender, nondistended. EXTREMITIES: No edema or joint tenderness. BACK: Nontender without deformity or crepitance. No flank tenderness. NEURO: AOx3. No gross motor deficits. SKIN: No rash or erythema of visible areas Initial Vital Signs Initial Vital Signs: Vital Signs Temperature 98.6 F 12/14/23 10:35 Pulse Rate 91 H 12/14/23 10:35 Respiratory Rate 29 H 12/14/23 10:35 Blood Pressure 141/63 H 12/14/23 10:35 Pulse Oximetry 95 12/14/23 10:35 Oxygen Delivery Method Nasal Cannula 12/14/23 10:35 Oxygen Flow Rate 2 12/14/23 10:35 <Elvis Gale DO - Last Filed: 12/15/23 00:28> Initial Vital Signs Initial Vital Signs: Vital Signs Temperature 98.6 F 12/14/23 10:35 Pulse Rate 91 H 12/14/23 10:35 Respiratory Rate 29 H 12/14/23 10:35 Blood Pressure 141/63 H 12/14/23 10:35 Pulse Oximetry 95 12/14/23 10:35 Oxygen Delivery Method Nasal Cannula 12/14/23 10:35 Oxygen Flow Rate 2 12/14/23 10:35 Course <Eric Cardoza MD - Last Filed: 12/15/23 06:56> Orders Ordered: Discontinued Medications Acetaminophen (Acetaminophen 325 Mg Tablet) 650 mg PO NOW ONE Stop: 12/14/23 12:56 Last Admin: 12/14/23 13:06 Dose: 650 mg Documented By: SPF Acetaminophen (Acetaminophen 325 Mg Tablet) 325 mg PO NOW ONE Stop: 12/14/23 18:16 Last Admin: 12/14/23 18:38 Dose: 325 mg Documented By: SPF Albuterol (Albuterol 2.5 Mg/3 Ml Neb (Adult)) 2.5 mg INH NOW ONE Stop: 12/14/23 20:44 Last Admin: 12/14/23 20:52 Dose: 2.5 mg Documented By: BH Albuterol/Ipratropium (Albuterol/Ipratropium 3 Ml Ampul) 6 ml INH NOW ONE Stop: 12/14/23 11:33 Last Admin: 12/14/23 11:41 Dose: 6 ml Documented By: JJoeyF Albuterol/Ipratropium (Albuterol/Ipratropium 3 Ml Ampul) 3 ml INH NOW ONE Stop: 12/14/23 11:40 Last Admin: 12/14/23 11:41 Dose: 3 ml Documented By: HITESH Sodium Chloride (Normal Saline 0.9%) 500 mls @ 1,000 mls/hr IV BOLUS ONE Stop: 12/14/23 12:59 Last Infusion: 12/14/23 13:51 Dose: Infused Documented By: Infusion: 12/14/23 13:06 Dose: 1,000 mls/hr Documented By: Admin: 12/14/23 12:40 Dose: 1,000 mls/hr Documented By: ARLYN Methylprednisolone (Methylprednisolone 125 Mg/2 Ml Vial) 125 mg IV NOW ONE Stop: 12/14/23 11:16 Last Admin: 12/14/23 11:54 Dose: 125 mg Documented By: ARLYN Vital Signs Vital signs: Vital Signs - 8 hr 12/14/23 12:00 12/14/23 12:30 12/14/23 13:00 Temperature Pulse Rate 94 H 100 H 96 H Respiratory Rate 19 21 22 Blood Pressure Pulse Oximetry 98 97 96 Oxygen Delivery Method Nasal Cannula Nasal Cannula Oxygen Flow Rate 1 1 12/14/23 13:30 12/14/23 14:00 12/14/23 14:30 Temperature Pulse Rate 96 H 99 H 108 H Respiratory Rate 20 Blood Pressure Pulse Oximetry 96 96 96 Oxygen Delivery Method Room Air Oxygen Flow Rate 12/14/23 14:58 12/14/23 15:00 12/14/23 15:00 Temperature 98.0 F Pulse Rate 105 H 107 H Respiratory Rate 20 21 Blood Pressure 132/67 132/62 Pulse Oximetry 96 Oxygen Delivery Method Oxygen Flow Rate 12/14/23 15:13 12/14/23 15:19 12/14/23 15:19 Temperature 98.9 F Pulse Rate 103 H 101 H Respiratory Rate 18 18 Blood Pressure 125/58 L 125/58 L Pulse Oximetry 96 Oxygen Delivery Method Oxygen Flow Rate 12/14/23 15:30 12/14/23 15:30 12/14/23 16:00 Temperature Pulse Rate 101 H 101 H Respiratory Rate 24 24 Blood Pressure 128/61 Pulse Oximetry 97 97 Oxygen Delivery Method Nasal Cannula Nasal Cannula Oxygen Flow Rate 1 1 12/14/23 16:00 12/14/23 16:07 12/14/23 16:30 Temperature Pulse Rate 102 H 98 H Respiratory Rate 20 17 Blood Pressure 135/64 Pulse Oximetry 97 Oxygen Delivery Method Oxygen Flow Rate 12/14/23 16:30 12/14/23 17:00 12/14/23 17:00 Temperature Pulse Rate 95 H Respiratory Rate 18 Blood Pressure 131/61 139/65 Pulse Oximetry 97 Oxygen Delivery Method Nasal Cannula Oxygen Flow Rate 1 12/14/23 17:20 12/14/23 17:20 12/14/23 17:21 Temperature 98.3 F Pulse Rate 93 H 93 H Respiratory Rate 19 18 Blood Pressure 129/63 129/63 Pulse Oximetry 98 Oxygen Delivery Method Oxygen Flow Rate 12/14/23 17:30 12/14/23 17:30 12/14/23 17:39 Temperature 98.4 F Pulse Rate 104 H 97 H Respiratory Rate 24 19 Blood Pressure 151/67 H 135/56 L Pulse Oximetry 95 Oxygen Delivery Method Nasal Cannula Oxygen Flow Rate 1 12/14/23 17:44 12/14/23 17:44 12/14/23 18:00 Temperature Pulse Rate 97 H 95 H Respiratory Rate 20 27 H Blood Pressure 135/56 L Pulse Oximetry 97 98 Oxygen Delivery Method Nasal Cannula Oxygen Flow Rate 1 12/14/23 18:00 12/14/23 18:30 12/14/23 18:30 Temperature Pulse Rate 96 H Respiratory Rate 29 H Blood Pressure 142/67 H 149/73 H Pulse Oximetry 96 Oxygen Delivery Method Nasal Cannula Oxygen Flow Rate 1 12/14/23 19:00 12/14/23 19:00 12/14/23 19:30 Temperature Pulse Rate 88 Respiratory Rate 24 Blood Pressure 142/75 H 145/73 H Pulse Oximetry 98 Oxygen Delivery Method Nasal Cannula Oxygen Flow Rate 1 12/14/23 19:30 Temperature Pulse Rate 91 H Respiratory Rate 26 H Blood Pressure Pulse Oximetry 97 Oxygen Delivery Method Oxygen Flow Rate <Elvis Gale, - Last Filed: 12/15/23 00:28> Orders Ordered: Discontinued Medications Acetaminophen (Acetaminophen 325 Mg Tablet) 650 mg PO NOW ONE Stop: 12/14/23 12:56 Last Admin: 12/14/23 13:06 Dose: 650 mg Documented By: SPF Acetaminophen (Acetaminophen 325 Mg Tablet) 325 mg PO NOW ONE Stop: 12/14/23 18:16 Last Admin: 12/14/23 18:38 Dose: 325 mg Documented By: SPF Albuterol (Albuterol 2.5 Mg/3 Ml Neb (Adult)) 2.5 mg INH NOW ONE Stop: 12/14/23 20:44 Last Admin: 12/14/23 20:52 Dose: 2.5 mg Documented By: CHAITANYA Albuterol/Ipratropium (Albuterol/Ipratropium 3 Ml Ampul) 6 ml INH NOW ONE Stop: 12/14/23 11:33 Last Admin: 12/14/23 11:41 Dose: 6 ml Documented By: HITESH Albuterol/Ipratropium (Albuterol/Ipratropium 3 Ml Ampul) 3 ml INH NOW ONE Stop: 12/14/23 11:40 Last Admin: 12/14/23 11:41 Dose: 3 ml Documented By: HITESH Sodium Chloride (Normal Saline 0.9%) 500 mls @ 1,000 mls/hr IV BOLUS ONE Stop: 12/14/23 12:59 Last Infusion: 12/14/23 13:51 Dose: Infused Documented By: Infusion: 12/14/23 13:06 Dose: 1,000 mls/hr Documented By: Admin: 12/14/23 12:40 Dose: 1,000 mls/hr Documented By: ARLYN Methylprednisolone (Methylprednisolone 125 Mg/2 Ml Vial) 125 mg IV NOW ONE Stop: 12/14/23 11:16 Last Admin: 12/14/23 11:54 Dose: 125 mg Documented By: ARLYN Vital Signs Vital signs: Vital Signs - 8 hr 12/14/23 12:00 12/14/23 12:30 12/14/23 13:00 Temperature Pulse Rate 94 H 100 H 96 H Respiratory Rate 19 21 22 Blood Pressure Pulse Oximetry 98 97 96 Oxygen Delivery Method Nasal Cannula Nasal Cannula Oxygen Flow Rate 1 1 12/14/23 13:30 12/14/23 14:00 12/14/23 14:30 Temperature Pulse Rate 96 H 99 H 108 H Respiratory Rate 20 Blood Pressure Pulse Oximetry 96 96 96 Oxygen Delivery Method Room Air Oxygen Flow Rate 12/14/23 14:58 12/14/23 15:00 12/14/23 15:00 Temperature 98.0 F Pulse Rate 105 H 107 H Respiratory Rate 20 21 Blood Pressure 132/67 132/62 Pulse Oximetry 96 Oxygen Delivery Method Oxygen Flow Rate 12/14/23 15:13 12/14/23 15:19 12/14/23 15:19 Temperature 98.9 F Pulse Rate 103 H 101 H Respiratory Rate 18 18 Blood Pressure 125/58 L 125/58 L Pulse Oximetry 96 Oxygen Delivery Method Oxygen Flow Rate 12/14/23 15:30 12/14/23 15:30 12/14/23 16:00 Temperature Pulse Rate 101 H 101 H Respiratory Rate 24 24 Blood Pressure 128/61 Pulse Oximetry 97 97 Oxygen Delivery Method Nasal Cannula Nasal Cannula Oxygen Flow Rate 1 1 12/14/23 16:00 12/14/23 16:07 12/14/23 16:30 Temperature Pulse Rate 102 H 98 H Respiratory Rate 20 17 Blood Pressure 135/64 Pulse Oximetry 97 Oxygen Delivery Method Oxygen Flow Rate 12/14/23 16:30 12/14/23 17:00 12/14/23 17:00 Temperature Pulse Rate 95 H Respiratory Rate 18 Blood Pressure 131/61 139/65 Pulse Oximetry 97 Oxygen Delivery Method Nasal Cannula Oxygen Flow Rate 1 12/14/23 17:20 12/14/23 17:20 12/14/23 17:21 Temperature 98.3 F Pulse Rate 93 H 93 H Respiratory Rate 19 18 Blood Pressure 129/63 129/63 Pulse Oximetry 98 Oxygen Delivery Method Oxygen Flow Rate 12/14/23 17:30 12/14/23 17:30 12/14/23 17:39 Temperature 98.4 F Pulse Rate 104 H 97 H Respiratory Rate 24 19 Blood Pressure 151/67 H 135/56 L Pulse Oximetry 95 Oxygen Delivery Method Nasal Cannula Oxygen Flow Rate 1 12/14/23 17:44 12/14/23 17:44 12/14/23 18:00 Temperature Pulse Rate 97 H 95 H Respiratory Rate 20 27 H Blood Pressure 135/56 L Pulse Oximetry 97 98 Oxygen Delivery Method Nasal Cannula Oxygen Flow Rate 1 12/14/23 18:00 12/14/23 18:30 12/14/23 18:30 Temperature Pulse Rate 96 H Respiratory Rate 29 H Blood Pressure 142/67 H 149/73 H Pulse Oximetry 96 Oxygen Delivery Method Nasal Cannula Oxygen Flow Rate 1 12/14/23 19:00 12/14/23 19:00 12/14/23 19:30 Temperature Pulse Rate 88 Respiratory Rate 24 Blood Pressure 142/75 H 145/73 H Pulse Oximetry 98 Oxygen Delivery Method Nasal Cannula Oxygen Flow Rate 1 12/14/23 19:30 Temperature Pulse Rate 91 H Respiratory Rate 26 H Blood Pressure Pulse Oximetry 97 Oxygen Delivery Method Oxygen Flow Rate MDM - SOB/Dyspnea <Eric Cardoza MD - Last Filed: 12/15/23 06:56> Differential Diagnosis Differential diagnosis: Likely acute exacerbation of chronic obstructive airways disease, congestive heart failure, community acquired pneumonia, asthma with exacerbation and other Lab Data Attestation: I reviewed the patient's lab results. 12/14/23 20:48 12/14/23 10:43 Labs: Lab Results 12/14/23 12/14/23 12/14/23 Range/Units 10:43 11:15 11:22 WBC 7.7 (4.5-11.0) X10^3/uL RBC 2.31 L (4.5-5.9) X10^6/uL Hgb 5.7 L* (13.5-17.5) g/dL Hct 18.7 L* (41-53) % MCV 81.1 (80-100) fL MCH 24.7 L (26-34) PG MCHC 30.4 (30-36) % RDW 17.9 H (11.6-14.8) % Plt Count 315 (150-400) X10^3/uL Neut % (Auto) 61.7 (50-75) % Lymph % (Auto) 29.9 (25-40) % Jerome % (Auto) 6.4 (3-14) % Eos % (Auto) 1.4 L (2-4) % Baso % (Auto) 0.6 (0-2) % Neut # (Auto) 4800 (2297-9192) /uL Lymph # (Auto) 2300 (4701-1198) /uL Jerome # (Auto) 500 (0-900) /uL Eos # (Auto) 100 (0-450) /uL Baso # (Auto) 0 (0-100) /uL PT 11.3 (9.4-12.5) SECONDS INR 1.0 (0.9-1.3) APTT 34 (25.1-36.5) SECONDS ABG Sample Site Left radial ABG pH 7.43 (7.35-7.45) ABG pCO2 49.8 H (35-45) mmHg ABG pO2 87 (80-100) mmHg ABG HCO3 33 H (23-27) mmol/L ABG Total CO2 34 H (23-27) mmol/L ABG O2 Saturation 97 (95-100) % ABG Base Excess 9.0 H (-2-3) mmol/L FiO2 24 Sodium 140 (137-145) mmol/L Potassium 4.0 (3.4-5.1) mmol/L Chloride 104 (98-107) mmol/L Carbon Dioxide 35 H (22-32) mmol/L BUN 16 (9-20) mg/dL Creatinine 0.83 (0.66-1.25) mg/dL Estimated GFR > 60 (>60) mL/min BUN/Creatinine Ratio 19.3 (6-22) Glucose 93 (80-110) mg/dL Lactate 1.3 (0.7-2.1) mmol/L Calcium 8.5 (8.4-10.2) mg/dL Magnesium 2.1 (1.6-2.3) mg/dL Total Bilirubin 0.3 (0.2-1.3) mg/dL AST 34 (17-59) IU/L ALT 14 (<50) IU/L Alkaline Phosphatase 56 (38-126) U/L Total Creatine Kinase 67 (55-170) U/L Troponin I < 0.012 (0.01-0.034) ng/mL Total Protein 6.4 (6.3-8.2) g/dL Albumin 3.4 L (3.5-5.0) g/dL Globulin 3.0 (1.7-4.1) g/dL Albumin/Globulin Ratio 1.1 (1.0-2.8) Lipase 208 (23-300) U/L Chlamy pneumoniae PCR Not detected (Not Detect) Adenovirus (PCR) Not detected (Not Detect) B.parapertussis DNA PCR Not detected (Not Detecte) Coronavirus OC43 (PCR) Not detected (Not Detect) Coronavirus HKU1 (PCR) Not detected (Not Detect) Coronavirus 229E (PCR) Not detected (Not Detect) SARS-CoV-2 (PCR) Not detected (Not Detecte) Coronavirus NL63 (PCR) Not detected (Not Detect) Human Metapneumovir PCR Not detected (Not Detect) Influenza Type A (PCR) Not detected (Not Detect) Influenza Type B (PCR) Not detected (Not Detect) M. pneumoniae (PCR) Not detected (Not Detect) Parainfluenza 1 (PCR) Not detected (Not Detect) Parainfluenza 2 (PCR) Not detected (Not Detect) Parainfluenza 3 (PCR) Not detected (Not Detect) Parainfluenza 4 (PCR) Not detected (Not Detect) RSV (PCR) Not detected (Not Detect) Entero/Rhino (PCR) Not detected (Not Detect) Blood Type Antibody Screen Crossmatch 12/14/23 12/14/23 Range/Units 13:45 20:48 WBC (4.5-11.0) X10^3/uL RBC (4.5-5.9) X10^6/uL Hgb 8.6 L (13.5-17.5) g/dL Hct 26.5 L (41-53) % MCV (80-100) fL MCH (26-34) PG MCHC (30-36) % RDW (11.6-14.8) % Plt Count (150-400) X10^3/uL Neut % (Auto) (50-75) % Lymph % (Auto) (25-40) % Jerome % (Auto) (3-14) % Eos % (Auto) (2-4) % Baso % (Auto) (0-2) % Neut # (Auto) (4732-7285) /uL Lymph # (Auto) (4768-0169) /uL Jerome # (Auto) (0-900) /uL Eos # (Auto) (0-450) /uL Baso # (Auto) (0-100) /uL PT (9.4-12.5) SECONDS INR (0.9-1.3) APTT (25.1-36.5) SECONDS ABG Sample Site ABG pH (7.35-7.45) ABG pCO2 (35-45) mmHg ABG pO2 (80-100) mmHg ABG HCO3 (23-27) mmol/L ABG Total CO2 (23-27) mmol/L ABG O2 Saturation (95-100) % ABG Base Excess (-2-3) mmol/L FiO2 Sodium (137-145) mmol/L Potassium (3.4-5.1) mmol/L Chloride (98-107) mmol/L Carbon Dioxide (22-32) mmol/L BUN (9-20) mg/dL Creatinine (0.66-1.25) mg/dL Estimated GFR (>60) mL/min BUN/Creatinine Ratio (6-22) Glucose (80-110) mg/dL Lactate (0.7-2.1) mmol/L Calcium (8.4-10.2) mg/dL Magnesium (1.6-2.3) mg/dL Total Bilirubin (0.2-1.3) mg/dL AST (17-59) IU/L ALT (<50) IU/L Alkaline Phosphatase (38-126) U/L Total Creatine Kinase (55-170) U/L Troponin I (0.01-0.034) ng/mL Total Protein (6.3-8.2) g/dL Albumin (3.5-5.0) g/dL Globulin (1.7-4.1) g/dL Albumin/Globulin Ratio (1.0-2.8) Lipase (23-300) U/L Chlamy pneumoniae PCR (Not Detect) Adenovirus (PCR) (Not Detect) B.parapertussis DNA PCR (Not Detecte) Coronavirus OC43 (PCR) (Not Detect) Coronavirus HKU1 (PCR) (Not Detect) Coronavirus 229E (PCR) (Not Detect) SARS-CoV-2 (PCR) (Not Detecte) Coronavirus NL63 (PCR) (Not Detect) Human Metapneumovir PCR (Not Detect) Influenza Type A (PCR) (Not Detect) Influenza Type B (PCR) (Not Detect) M. pneumoniae (PCR) (Not Detect) Parainfluenza 1 (PCR) (Not Detect) Parainfluenza 2 (PCR) (Not Detect) Parainfluenza 3 (PCR) (Not Detect) Parainfluenza 4 (PCR) (Not Detect) RSV (PCR) (Not Detect) Entero/Rhino (PCR) (Not Detect) Blood Type B Positive Antibody Screen Negative Crossmatch See Detail Imaging Data Chest x-ray: Radiologist's Impression: [address] [address] XRay Report Signed Patient: Mak Rose MR#: [id number] : 1960 Acct:[id number] Age/Sex: 63 / M Date of Service: 12/14/23 Loc: ED Accession Number: [id number] Procedure: XR chest 1V Ordering Provider: Eric Cardoza MD PROCEDURE: XR CHEST 1V INDICATIONS: chest pain TECHNIQUE: One view of the chest was acquired. COMPARISON: [facility], CR, XR CHEST 1V, 10/29/2023, 23:50. [facility], CR, XR CHEST 1V, 10/13/2023, 9:17. [facility], CR, XR CHEST 1V, 11/23/2023, 14:30. FINDINGS: Surgical changes and devices: None. Lungs and pleura: Improving, poorly defined opacity can be seen within the right mid lung laterally. On this semiupright portable chest examination, no large pneumothorax or large pleural effusions are seen. Mediastinum: Mediastinal contours appear normal. Heart size is normal. Bones and chest wall: No suspicious bony lesions. Age-appropriate bony degenerative changes are seen. Overlying soft tissues appear unremarkable. IMPRESSION: Improving poorly defined opacity seen within the right mid lung laterally. Dictated by: Pio Lennon M.D. on 12/14/2023 at 10:19 Approved by: Pio Lennon M.D. on 12/14/2023 at 10:20 MDM Narrative Medical decision making narrative: 63-year-old with COPD, recent exacerbation and course of oral Levaquin antibiotic completed about 10 days ago for treatment of pneumonia, increased shortness of breath and generalized weakness for the last couple of days. Some increased work of breathing on exam, moving air reasonably well, RT initiated Atrovent serial continuous SVN, IV Solu-Medrol steroid bolus. Chest x-ray shows right-sided infiltrate that is improving from prior study, per Radiology reading. Other labs pending. Hemoglobin 5.7 (compared to 9.1 on 11/23/2023), white blood cell count adequate, platelets adequate, no symptoms of black or red stools, no epistaxis symptoms, no gross hematuria, but likely anemia the cause of his generalized weakness. Hemodynamically stable. Denies blood thinner medications besides baby aspirin. Afebrile, sirs screen negative. Will type cross transfuse 2 units packed red blood cells, ordered. Re-check Hb post-transfusion. Blood type B positive, antibody screen negative, 1st unit packed cells infusing 1945, second unit packed cells still infusing, repeat H&H after completion anticipated. Signed out to oncoming ED physician Dr Shahla gale: Received turned over. Review patient's history and physical exam and workup at this point. Patient has received 2 units of packed red blood cells and his hemoglobin hematocrit have responded very well. He has no signs of fluid overload. He has had some black-colored stools recently but is also had those since he has been taking his iron pills. He has had GI bleeding in the past. He states that he has been informed that he does need a colonoscopy and an endoscopy but because of his respiratory status he has not had it done. He has not on anticoagulation. Patient would like to go home. Will discharge home. He already has follow-up later this week with his primary doctor. He was given return precautions. He expressed understanding and agreement. <Elvis Gale, - Last Filed: 12/15/23 00:28> Lab Data Labs: Lab Results 12/14/23 12/14/23 12/14/23 Range/Units 10:43 11:15 11:22 WBC 7.7 (4.5-11.0) X10^3/uL RBC 2.31 L (4.5-5.9) X10^6/uL Hgb 5.7 L* (13.5-17.5) g/dL Hct 18.7 L* (41-53) % MCV 81.1 (80-100) fL MCH 24.7 L (26-34) PG MCHC 30.4 (30-36) % RDW 17.9 H (11.6-14.8) % Plt Count 315 (150-400) X10^3/uL Neut % (Auto) 61.7 (50-75) % Lymph % (Auto) 29.9 (25-40) % Jerome % (Auto) 6.4 (3-14) % Eos % (Auto) 1.4 L (2-4) % Baso % (Auto) 0.6 (0-2) % Neut # (Auto) 4800 (7563-6333) /uL Lymph # (Auto) 2300 (1345-7951) /uL Jerome # (Auto) 500 (0-900) /uL Eos # (Auto) 100 (0-450) /uL Baso # (Auto) 0 (0-100) /uL PT 11.3 (9.4-12.5) SECONDS INR 1.0 (0.9-1.3) APTT 34 (25.1-36.5) SECONDS ABG Sample Site Left radial ABG pH 7.43 (7.35-7.45) ABG pCO2 49.8 H (35-45) mmHg ABG pO2 87 (80-100) mmHg ABG HCO3 33 H (23-27) mmol/L ABG Total CO2 34 H (23-27) mmol/L ABG O2 Saturation 97 (95-100) % ABG Base Excess 9.0 H (-2-3) mmol/L FiO2 24 Sodium 140 (137-145) mmol/L Potassium 4.0 (3.4-5.1) mmol/L Chloride 104 (98-107) mmol/L Carbon Dioxide 35 H (22-32) mmol/L BUN 16 (9-20) mg/dL Creatinine 0.83 (0.66-1.25) mg/dL Estimated GFR > 60 (>60) mL/min BUN/Creatinine Ratio 19.3 (6-22) Glucose 93 (80-110) mg/dL Lactate 1.3 (0.7-2.1) mmol/L Calcium 8.5 (8.4-10.2) mg/dL Magnesium 2.1 (1.6-2.3) mg/dL Total Bilirubin 0.3 (0.2-1.3) mg/dL AST 34 (17-59) IU/L ALT 14 (<50) IU/L Alkaline Phosphatase 56 (38-126) U/L Total Creatine Kinase 67 (55-170) U/L Troponin I < 0.012 (0.01-0.034) ng/mL Total Protein 6.4 (6.3-8.2) g/dL Albumin 3.4 L (3.5-5.0) g/dL Globulin 3.0 (1.7-4.1) g/dL Albumin/Globulin Ratio 1.1 (1.0-2.8) Lipase 208 (23-300) U/L Chlamy pneumoniae PCR Not detected (Not Detect) Adenovirus (PCR) Not detected (Not Detect) B.parapertussis DNA PCR Not detected (Not Detecte) Coronavirus OC43 (PCR) Not detected (Not Detect) Coronavirus HKU1 (PCR) Not detected (Not Detect) Coronavirus 229E (PCR) Not detected (Not Detect) SARS-CoV-2 (PCR) Not detected (Not Detecte) Coronavirus NL63 (PCR) Not detected (Not Detect) Human Metapneumovir PCR Not detected (Not Detect) Influenza Type A (PCR) Not detected (Not Detect) Influenza Type B (PCR) Not detected (Not Detect) M. pneumoniae (PCR) Not detected (Not Detect) Parainfluenza 1 (PCR) Not detected (Not Detect) Parainfluenza 2 (PCR) Not detected (Not Detect) Parainfluenza 3 (PCR) Not detected (Not Detect) Parainfluenza 4 (PCR) Not detected (Not Detect) RSV (PCR) Not detected (Not Detect) Entero/Rhino (PCR) Not detected (Not Detect) Blood Type Antibody Screen Crossmatch 12/14/23 12/14/23 Range/Units 13:45 20:48 WBC (4.5-11.0) X10^3/uL RBC (4.5-5.9) X10^6/uL Hgb 8.6 L (13.5-17.5) g/dL Hct 26.5 L (41-53) % MCV (80-100) fL MCH (26-34) PG MCHC (30-36) % RDW (11.6-14.8) % Plt Count (150-400) X10^3/uL Neut % (Auto) (50-75) % Lymph % (Auto) (25-40) % Jerome % (Auto) (3-14) % Eos % (Auto) (2-4) % Baso % (Auto) (0-2) % Neut # (Auto) (4710-4115) /uL Lymph # (Auto) (2863-2003) /uL Jerome # (Auto) (0-900) /uL Eos # (Auto) (0-450) /uL Baso # (Auto) (0-100) /uL PT (9.4-12.5) SECONDS INR (0.9-1.3) APTT (25.1-36.5) SECONDS ABG Sample Site ABG pH (7.35-7.45) ABG pCO2 (35-45) mmHg ABG pO2 (80-100) mmHg ABG HCO3 (23-27) mmol/L ABG Total CO2 (23-27) mmol/L ABG O2 Saturation (95-100) % ABG Base Excess (-2-3) mmol/L FiO2 Sodium (137-145) mmol/L Potassium (3.4-5.1) mmol/L Chloride (98-107) mmol/L Carbon Dioxide (22-32) mmol/L BUN (9-20) mg/dL Creatinine (0.66-1.25) mg/dL Estimated GFR (>60) mL/min BUN/Creatinine Ratio (6-22) Glucose (80-110) mg/dL Lactate (0.7-2.1) mmol/L Calcium (8.4-10.2) mg/dL Magnesium (1.6-2.3) mg/dL Total Bilirubin (0.2-1.3) mg/dL AST (17-59) IU/L ALT (<50) IU/L Alkaline Phosphatase (38-126) U/L Total Creatine Kinase (55-170) U/L Troponin I (0.01-0.034) ng/mL Total Protein (6.3-8.2) g/dL Albumin (3.5-5.0) g/dL Globulin (1.7-4.1) g/dL Albumin/Globulin Ratio (1.0-2.8) Lipase (23-300) U/L Chlamy pneumoniae PCR (Not Detect) Adenovirus (PCR) (Not Detect) B.parapertussis DNA PCR (Not Detecte) Coronavirus OC43 (PCR) (Not Detect) Coronavirus HKU1 (PCR) (Not Detect) Coronavirus 229E (PCR) (Not Detect) SARS-CoV-2 (PCR) (Not Detecte) Coronavirus NL63 (PCR) (Not Detect) Human Metapneumovir PCR (Not Detect) Influenza Type A (PCR) (Not Detect) Influenza Type B (PCR) (Not Detect) M. pneumoniae (PCR) (Not Detect) Parainfluenza 1 (PCR) (Not Detect) Parainfluenza 2 (PCR) (Not Detect) Parainfluenza 3 (PCR) (Not Detect) Parainfluenza 4 (PCR) (Not Detect) RSV (PCR) (Not Detect) Entero/Rhino (PCR) (Not Detect) Blood Type B Positive Antibody Screen Negative Crossmatch See Detail MDM Narrative Medical decision making narrative: 63-year-old with COPD, recent exacerbation and course of oral Levaquin antibiotic completed about 10 days ago for treatment of pneumonia, increased shortness of breath and generalized weakness for the last couple of days. Some increased work of breathing on exam, moving air reasonably well, RT initiated Atrovent serial continuous SVN, IV Solu-Medrol steroid bolus. Chest x-ray shows right-sided infiltrate that is improving from prior study, per Radiology reading. Other labs pending. Hemoglobin 5.7 (compared to 9.1 on 11/23/2023), white blood cell count adequate, platelets adequate, no symptoms of black or red stools, no epistaxis symptoms, but likely anemia the cause of his generalized weakness. Hemodynamically stable. Denies blood thinner medications besides baby aspirin. Afebrile, sirs screen negative. Will type cross transfuse 2 units packed red blood cells, ordered. Blood type B positive, antibody screen negative, 1st unit packed cells infusing 1944, second unit packed cells still infusing, repeat H&H after completion anticipated. Signed out to oncoming ED physician Dr Shahla gale: Received turned over. Review patient's history and physical exam and workup at this point. Patient has received 2 units of packed red blood cells and his hemoglobin hematocrit have responded very well. He has no signs of fluid overload. He has had some black-colored stools recently but is also had those since he has been taking his iron pills. He has had GI bleeding in the past. He states that he has been informed that he does need a colonoscopy and an endoscopy but because of his respiratory status he has not had it done. He has not on anticoagulation. Patient would like to go home. Will discharge home. He already has follow-up later this week with his primary doctor. He was given return precautions. He expressed understanding and agreement. Critical Care Time <Eric Cardoza MD - Last Filed: 12/15/23 06:56> Critical Care Time Total Critical Care Time: 31 Attestation: The high probability of a clinically significant, sudden or life threatening deterioration of the [cardiopulmonary] system(s) required my full and direct attention, intervention and personal management. The aggregate critical care time was [31] minutes. This time is in addition to time spent performing reported procedures but includes the following: [x] Data Review and interpretation [x] Patient assessment and monitoring of vital signs [x] Documentation [x] Medication orders and management Discharge Plan Departure Patient Disposition: Home Clinical Impression: Acute exacerbation of chronic obstructive airways disease, Generalized weakness, Anemia Instructions: Anemia Activity Restrictions/Additional Instructions: Continue to take all of your medications as directed. Keep your scheduled follow-up appointment with your primary doctor later this week. Return to the emergency department for new or worsening symptoms. Prescriptions: New prednisone 20 mg tablet 40 mg PO DAILY 5 Days Qty: 10 0RF No Action (DME) Disabled Parking Permit Qty: 1 0RF Rx Instructions: Patient qualifies for permanent disabled parking permit. ipratropium-albuterol 0.5 mg-3 mg(2.5 mg base)/3 mL solution for nebulization 3 ml INHALATION BID PRN (Reason: wheezing/ SOB) Qty: 90 11RF simvastatin 20 mg tablet 20 mg PO DAILY Qty: 90 3RF nystatin 100,000 unit/mL suspension 5 ml PO QID Qty: 200 1RF benzonatate 100 mg capsule 100 mg PO BID-TID Qty: 270 1RF prednisone 20 mg tablet See Rx Instructions .ROUTE .COMPLEX Qty: 90 1RF Dose Instruction: TAKE 1 TABLET (20 MG) BY MOUTH DAILY FOR COPD Rx Instructions: TAKE 1 TABLET (20 MG) BY MOUTH DAILY FOR COPD albuterol sulfate [Ventolin HFA] 90 mcg/actuation HFA aerosol inhaler 1 - 2 puff PO Q4H PRN (Reason: for wheezing) Qty: 54 1RF ferrous gluconate 324 mg (38 mg iron) tablet 324 mg PO DAILY Qty: 90 1RF montelukast 10 mg tablet 10 mg PO QPM Qty: 90 3RF clonazepam 0.5 mg tablet 0.5 mg PO TID Qty: 90 2RF Dulera 200-5 mcg/actuation HFA aerosol inhaler See Rx Instructions .ROUTE .COMPLEX Qty: 13 6RF Dose Instruction: INHALE 2 PUFFS BY MOUTH TWICE DAILY Rx Instructions: INHALE 2 PUFFS BY MOUTH TWICE DAILY Spiriva with HandiHaler 18 mcg capsule, w/inhalation device 18 mcg inhalation DAILY Qty: 90 3RF ascorbate calcium (vitamin C) 500 mg tablet 500 mg PO DAILY mupirocin 2 % ointment 1 applic topical BID Qty: 15 0RF Rx Instructions: apply to bed sore acetaminophen 325 mg Tablet 1 dose PO PRN PRN (Reason: pain) magnesium hydroxide 400 mg/5 mL Suspension 1 dose PO PRN PRN (Reason: Indigestion) Patient Comments: patient states uses often Mylanta ibuprofen 200 mg Tablet 1 dose PO PRN PRN (Reason: pain) aspirin 81 mg Tablet 81 mg PO DAILY nitroglycerin 0.3 mg tablet, sublingual 0.3 mg sublingual Q5-15M PRN (Reason: chest pain) Qty: 20 0RF Rx Instructions: do not exceed 3 doses per episode ipratropium-albuterol 0.5 mg-3 mg(2.5 mg base)/3 mL solution for nebulization 3 ml INHALATION Q4-6H PRN (Reason: shortness of breath or wheezing) Qty: 90 0RF prednisone 10 mg tablet 10 mg PO DAILY Qty: 30 0RF Rx Instructions: day 1-3: 40 mg once a day day 4-6: 30 mg once a day day 7-9: 20 mg once a day day 10-12: 10 mg once a day prednisone 20 mg tablet 20 mg PO DAILY Qty: 90 0RF Rx Instructions: begin 60mg daily on 10/30. decrease by 10mg q4 days. Remain at 10mg daily when completed taper Referrals: Saqib Oliva DO [Primary Care Provider] - Stand Alone Forms: Patient Portal/API
[2023-12-14] MEDS: SODIUM CHLORIDE 0.9% 500 ML 1000 ML IV (12:40)
[2023-12-14 13:06] LABS: Adenovirus Not Detected (Not Detect); B. parapertussis Not Detected (Not Detecte); Bordetella pertussis Not Detected (Not Detect); Chlamydophila pneumoniae Not Detected (Not Detect); Coronavirus 229E Not Detected (Not Detect); Coronavirus HKU1 Not Detected (Not Detect); Coronavirus NL 63 Not Detected (Not Detect); Coronavirus OC43 Not Detected (Not Detect); Human Metapneumovirus Not Detected (Not Detect); Human Rhinovirus/Enterovirus Not Detected (Not Detect); Influenza A Not Detected (Not Detect); Influenza B Not Detected (Not Detect); Mycoplasma pneumoniae Not Detected (Not Detect); Parainfluenza Virus 1 Not Detected (Not Detect); Parainfluenza Virus 2 Not Detected (Not Detect); Parainfluenza Virus 3 Not Detected (Not Detect); Parainfluenza Virus 4 Not Detected (Not Detect); Respiratory Syncytial Virus Not Detected (Not Detect); SARS- CoV-2 Not Detected (Not Detecte)
[2023-12-14] MEDS: ACETAMINOPHEN 325 MG TABLET 650 MG PO (13:06)
[2023-12-14 13:18] LABS: Add Manual Diff / Slide Review NO; Basophils Absolute Auto 0 /uL (0-100); Basophils Percent Auto 0.6 % (0-2); Eosinophils Absolute Auto 100 /uL (0-450); Eosinophils Percent Auto 1.4 % (2-4); Lymphocytes Absolute Auto 2300 /uL (1100-4500); Lymphocytes Percent Auto 29.9 % (25-40); Mean Corpuscular HGB Conc 30.4 % (30-36); Mean Corpuscular Hemoglobin 24.7 PG (26-34); Mean Corpuscular Volume 81.1 fL (80-100); Monocytes Absolute Auto 500 /uL (0-900); Monocytes Percent Auto 6.4 % (3-14); Neutrophils Absolute Auto 4800 /uL (1500-7000); Neutrophils Percent Auto 61.7 % (50-75); Platelet Count 315 X10^3/uL (150-400); Red Blood Cell Count 2.31 X10^6/uL (4.5-5.9); Red Cell Distribution Width 17.9 % (11.6-14.8); White Blood Cell Count 7.7 X10^3/uL (4.5-11.0)
[2023-12-14 13:20] LABS: Hemoglobin 5.7 g/dL (13.5-17.5)
[2023-12-14 13:21] LABS: Hematocrit 18.7 % (41-53)
[2023-12-14] MEDS: ACETAMINOPHEN 325 MG TABLET PO (18:38)
[2023-12-14] MEDS: ALBUTEROL 2.5 MG/3 ML NEB (ADULT) INH (20:52)
[2023-12-14 20:54] LABS: Hematocrit 26.5 % (41-53); Hemoglobin 8.6 g/dL (13.5-17.5)
== END 2023-12-14 21:42 | disposition home or self-care (01) ==
PROVIDERS: Emergency Medicine; Emergency Provider Emergency Medicine; PCP Family Medicine
DX: J44.1 Chronic obstructive pulmonary disease with (acute) exacerbation (principal); R53.1 Weakness; D64.9 Anemia, unspecified; R07.9 Chest pain, unspecified; Z20.822 Contact with and (suspected) exposure to COVID-19
CPT/HCPCS: 36415; 36430; 36600; 71045; 80053; 82550; 82805; 83605; 83690; 83735; 84484; 85014; 85018; 85025; 85610; 85730; 86850; 86900; 86901; 87633; 93005; 94640; 96361; 96374; 99285; P9016; J2919; J7613

== ENCOUNTER → 2024-01-18 10:06 | Outpatient (CLI) | payer MEDICARE, MEDICAID, SELFPAY ==
[2022-11-18 19:35] VITALS: BMI 23.6
[2024-01-18 10:47] LABS: Add Manual Diff / Slide Review NO; Basophils Absolute Auto 0 /uL (0-100); Basophils Percent Auto 0.4 % (0-2); Eosinophils Absolute Auto 100 /uL (0-450); Eosinophils Percent Auto 1.7 % (2-4); Hematocrit 36.7 % (41-53); Hemoglobin 11.6 g/dL (13.5-17.5); Lymphocytes Absolute Auto 2100 /uL (1100-4500); Lymphocytes Percent Auto 32.2 % (25-40); Mean Corpuscular HGB Conc 31.5 % (30-36); Mean Corpuscular Hemoglobin 26.3 PG (26-34); Mean Corpuscular Volume 83.5 fL (80-100); Monocytes Absolute Auto 700 /uL (0-900); Monocytes Percent Auto 10.1 % (3-14); Neutrophils Absolute Auto 3600 /uL (1500-7000); Neutrophils Percent Auto 55.6 % (50-75); Platelet Count 178 X10^3/uL (150-400); Red Cell Distribution Width 18.5 % (11.6-14.8); White Blood Cell Count 6.5 X10^3/uL (4.5-11.0)
[2024-01-18 10:54] LABS: HEMOLYSIS < 15 (0-50); Iron 41 ug/dL (49-181)
[2024-01-18 11:02] LABS: Alanine Aminotransferase 21 IU/L (<50); Albumin 4.1 g/dL (3.5-5.0); Albumin Globulin Ratio 1.3 (1.0-2.8); Alkaline Phosphatase 62 U/L (38-126); Aspartate Aminotransferase 29 IU/L (17-59); BUN Creatinine Ratio 17.8 (6-22); Bilirubin Total 0.3 mg/dL (0.2-1.3); Blood Urea Nitrogen 18 mg/dL (9-20); Calcium 9.5 mg/dL (8.4-10.2); Chloride 100 mmol/L (98-107); Estimated Glomerular Filt Rate > 60 mL/min (>60); Globulin 3.1 g/dL (1.7-4.1); Glucose 99 mg/dL (80-110); HEMOLYSIS < 15 (0-50); Potassium 3.9 mmol/L (3.4-5.1); Reticulocyte Count, Percent 0.9 % (0.9-2.6); Sodium 143 mmol/L (137-145); Total Protein 7.2 g/dL (6.3-8.2)
[2024-01-18 11:05] LABS: Percent Iron Saturation 10 % (20-50); Total Iron Binding Capacity 400 ug/dL (261-462); Transferrin 328 mg/dL (206-381)
[2024-01-18 11:08] LABS: Carbon Dioxide 39 mmol/L (22-32)
[2024-01-18 17:45] LABS: Vitamin B12 > 1000 pg/mL (239-931)
== END ==
LOC: LAB 10:07
PROVIDERS: PCP Family Medicine; Referring Provider Family Medicine; Visit Provider Family Medicine
DX: D64.9 Anemia, unspecified (principal); I10 Essential (primary) hypertension; J44.9 Chronic obstructive pulmonary disease, unspecified; R53.83 Other fatigue
CPT/HCPCS: 36415; 80053; 82607; 83540; 83550; 85025; 85045

== ENCOUNTER → 2024-03-23 09:35 | Outpatient (CLI) | payer MEDICARE, MEDICAID, SELFPAY ==
[2022-11-18 19:35] VITALS: BMI 23.6
[2024-03-23 10:44] LABS: Add Manual Diff / Slide Review NO; Basophils Absolute Auto 0 /uL (0-100); Basophils Percent Auto 0.2 % (0-2); Eosinophils Absolute Auto 100 /uL (0-450); Eosinophils Percent Auto 1.5 % (2-4); Hematocrit 36.5 % (41-53); Hemoglobin 11.5 g/dL (13.5-17.5); Lymphocytes Absolute Auto 1800 /uL (1100-4500); Lymphocytes Percent Auto 21.6 % (25-40); Mean Corpuscular HGB Conc 31.6 % (30-36); Mean Corpuscular Hemoglobin 26.5 PG (26-34); Mean Corpuscular Volume 83.8 fL (80-100); Monocytes Absolute Auto 800 /uL (0-900); Monocytes Percent Auto 9.6 % (3-14); Neutrophils Absolute Auto 5600 /uL (1500-7000); Neutrophils Percent Auto 67.1 % (50-75); Platelet Count 195 X10^3/uL (150-400); Red Blood Cell Count 4.36 X10^6/uL (4.5-5.9); Red Cell Distribution Width 16.6 % (11.6-14.8); White Blood Cell Count 8.4 X10^3/uL (4.5-11.0)
[2024-03-23 11:10] LABS: HEMOLYSIS < 15 (0-50)
[2024-03-23 11:23] LABS: Transferrin 294 mg/dL (206-381)
[2024-03-24 09:13] LABS: Iron 46 ug/dL (49-181)
[2024-03-24 09:23] LABS: Percent Iron Saturation 12 % (20-50); Total Iron Binding Capacity 370 ug/dL (261-462)
== END ==
PROVIDERS: PCP Family Medicine; Referring Provider Family Medicine; Visit Provider Family Medicine
DX: I10 Essential (primary) hypertension (principal); E78.5 Hyperlipidemia, unspecified; D64.9 Anemia, unspecified
CPT/HCPCS: 36415; 83540; 83550; 85025

== ENCOUNTER 2024-04-10 16:04 | Emergency (ER) | payer MEDICARE, MEDICAID, SELFPAY ==
[2022-11-18 19:35] VITALS: BMI 23.6
[2024-04-10] VITALS (17 sets, daily range): BP systolic 105–168; BP diastolic 66–78; PULSE 105–120; RESP 14–32; TEMP 36.7; O2SAT 92–99; BMI 27.5
--- NOTE | 2024-04-10 16:20 | DI.RAD.S_ITS ---
PROCEDURE: XR CHEST 1V INDICATIONS: Shortness of breath TECHNIQUE: One view of the chest was acquired. COMPARISON: [facility], JOSE, XR CHEST 1V, 12/14/2023, 11:07. [facility], CR, XR CHEST 1V, 11/23/2023, 14:30. FINDINGS: Surgical changes and devices: None. Lungs and pleura: Decreased consolidation of the right middle lung zone. Mediastinum: Mediastinal contours appear normal. Heart size is normal. Bones and chest wall: No suspicious bony lesions. Overlying soft tissues appear unremarkable. IMPRESSION: Decreased consolidation of the right middle lung zone. Dictated by: Josias Romo M.D. on 04/10/2024 at 16:44 Approved by: Josias Romo M.D. on 04/10/2024 at 16:46
--- NOTE | 2024-04-10 16:20 | EKG_ITS ---
[place] [address] [address] [address] Test Date: 2024-04-10 Pat Name: Mak Rose Department: Room: Gender: Male Business Assistant: TATY : 1960 Requested By: Order Number: [id number] Reading MD: Nicko Thurman MD Measurements Intervals [place] Rate: 113 P: 81 RI: 146 QRS: 80 QRSD: 92 T: 42 QT: 300 QTc: 411 Interpretive Statements Sinus tachycardia Right atrial enlargement Electronically Signed On 04-11-2024 7:55:20 PDT by Nicko Thurman MD
--- NOTE | 2024-04-10 16:22 | ED_ITS ---
HPI - SOB/Dyspnea <Vaishnavi Hinson, DO - Last Filed: 04/15/24 07:20> General Chief Complaint: Shortness of Breath/Dyspnea Stated Complaint: SOB + Lethargic Time Seen by Provider: 04/10/24 16:08 Source: patient and EMS Mode of arrival: EMS Limitations: no limitations History of Present Illness HPI Narrative: 63-year-old male history of COPD, on O2 2 liters/minute, seen here for prior exacerbations who presents with complaint of increased shortness of breath. Patient denies any new upper respiratory symptoms no fevers, no nasal congestion. Patient states his cough has been a little bit increased with some increased productive sputum but states it has been clear. Denies any chest pain or pressure, states it is hard for him to breathe. States has been worse for the last couple of days. Denies any nausea or vomiting. Denies any other GI or urinary symptoms. Denies any new swelling of extremities. Patient states he is on prednisone 10 mg daily has been on this dose for some time he states he has had it increased in decreased but seems to be requiring about 10 mg persistently. Does use inhalers at home. Has multiple allergies states they are in the computer. Does use tobacco daily, occasional alcohol, no recreational drugs. Dr. Oliva is his primary care physician. Related Data Home Medications Medication Instructions Recorded Confirmed acetaminophen 325 mg tablet 1 dose PO PRN PRN pain 12/29/18 03/28/24 ibuprofen 200 mg tablet 1 dose PO PRN PRN pain 12/29/18 03/28/24 magnesium hydroxide 400 mg/5 mL 1 dose PO PRN PRN Indigestion 12/29/18 03/28/24 oral suspension ascorbate calcium (vitamin C) 500 500 mg PO DAILY 08/06/23 03/28/24 mg tablet Previous Rx's Medication Instructions Recorded Disabled Parking Permit #1 ea 06/24/19 nitroglycerin 0.3 mg sublingual 0.3 mg sublingual Q5-15M PRN chest 01/23/21 tablet pain #20 tabs tiotropium bromide 18 mcg capsule 18 mcg inhalation DAILY #90 08/12/21 with inhalation device (Spiriva inhalations with HandiHaler) ipratropium 0.5 mg-albuterol 3 mg 3 ml inhalation BID PRN wheezing/ 01/24/22 (2.5 mg base)/3 mL nebulization SOB #90 mL soln nystatin 100,000 unit/mL oral 5 ml PO QID #200 mL 04/22/23 suspension benzonatate 100 mg capsule 100 mg PO BID-TID #270 caps 08/03/23 prednisone 20 mg tablet See Rx Instructions .Route 09/01/23 .COMPLEX #90 tabs albuterol sulfate 90 mcg/actuation 1 - 2 puff PO Q4H PRN for wheezing 09/08/23 aerosol inhaler (Ventolin HFA) #54 grams montelukast 10 mg tablet 10 mg PO QPM #90 tabs 09/22/23 prednisone 10 mg tablet 10 mg PO DAILY #30 tabs 10/13/23 prednisone 20 mg tablet 20 mg PO DAILY #90 tabs 10/30/23 mupirocin 2 % topical ointment 1 applic topical BID #15 grams 11/09/23 mometasone-formoterol HFA 200 See Rx Instructions .Route 11/13/23 mcg-5 mcg/actuation aerosol .COMPLEX #13 grams inhaler (Dulera) simvastatin 20 mg tablet 20 mg PO DAILY #90 tabs 01/26/24 clonazepam 0.5 mg tablet 0.5 mg PO TID #90 tabs 03/28/24 ferrous gluconate 324 mg (38 mg 324 mg PO DAILY #90 tabs 03/28/24 iron) tablet azithromycin 250 mg tablet See Rx Instructions PO .COMPLEX #4 04/10/24 tabs prednisone 10 mg tablets in a dose See Rx Instructions PO .COMPLEX 04/10/24 pack #21 ea Allergies Allergy/AdvReac Type Severity Reaction Status Date / Time cinnamon [CINNAMON] Allergy Severe RESP Verified 03/28/24 14:02 PROBLEMS AND SWELLING Sulfa (Sulfonamide Allergy Severe anaphylacti Verified 03/28/24 14:02 Antibiotics) c [SULFA (SULFONAMIDE ANTIBIOTICS)] fluticasone [FLUTICASONE] Allergy Intermediate FEELS Verified 03/28/24 14:02 LIKE FIRE IN THE LUNGS trimethoprim [TRIMETHOPRIM] Allergy Unknown Patient Verified 03/28/24 14:02 can't remember codeine [CODEINE] AdvReac Intermediate violent Verified 03/28/24 14:02 doxycycline [DOXYCYCLINE] AdvReac Mild N/V Verified 03/28/24 14:02 dextromethorphan AdvReac Verified 03/28/24 14:02 fentanyl AdvReac Verified 03/28/24 14:02 Review of Systems <Vaishnavi Hinson DO - Last Filed: 04/15/24 07:20> Review of Systems ROS Unobtainable: All systems reviewed & are unremarkable except as noted in HPI and below Patient History <Vaishnavi Hinson DO - Last Filed: 04/15/24 07:20> Medical History Fatigue Ventricular tachycardia (paroxysmal) Anemia Palpitations GERD with stricture HTN (hypertension) Insomnia (~2015) Hyperlipidemia (~2015) Anxiety (~2015) COPD (chronic obstructive pulmonary disease) (~2013) Asthma (Unknown) TIA (transient ischemic attack) (05/2014) Hematuria (~2014) Surgical History No pertinent past surgical history Family History Mother Age: 85 Hypertension Sister Age: 68 Cancer Social History household members: none Smoking Status: Current some day smoker Tobacco: How many years used: 47 quit status: considering quitting second hand exposure: No alcohol intake: former substance use type: does not use Smoking Status: Current some day smoker tobacco type: cigarettes alcohol intake frequency: holidays/special occasions only Substance Use Type: does not use Exam <Vaishnavi Hinson DO - Last Filed: 04/15/24 07:20> Narrative Exam Narrative: GENERAL: Alert and oriented x three, male in moderate distress HEENT: Head normocephalic, atraumatic, EOMI, pupils reactive, face symmetric, moist mucous membranes NECK: Supple, full range of motion CARDIOVASCULAR: Regular rate and rhythm without murmurs, rubs or gallops. RESPIRATORY: Breath sounds decreased bilaterally, mild tachypnea, no wheezes rales or rhonchi. No accessory muscle use. ABDOMEN: Soft, nontender. Normoactive bowel sounds all 4 quadrants. No guarding or rebound, rigidity, no mass : No CVA tenderness EXTREMITIES: Normal range of motion, no clubbing or edema. Neurovascularly intact NEUROLOGICAL: Cranial nerves II through XII grossly intact. Moving all extremities SKIN: Warm, dry, no petechiae, no rashes or lesions. Initial Vital Signs Initial Vital Signs: Vital Signs Temperature 98.1 F 04/10/24 16:06 Pulse Rate 113 H 04/10/24 16:06 Respiratory Rate 32 H 04/10/24 16:06 Blood Pressure 168/78 H 04/10/24 16:06 Pulse Oximetry 96 04/10/24 16:06 Oxygen Delivery Method Nasal Cannula 04/10/24 16:06 Oxygen Flow Rate 2 04/10/24 16:06 <Elvis Gale DO - Last Filed: 04/10/24 23:06> Initial Vital Signs Initial Vital Signs: Vital Signs Temperature 98.1 F 04/10/24 16:06 Pulse Rate 113 H 04/10/24 16:06 Respiratory Rate 32 H 04/10/24 16:06 Blood Pressure 168/78 H 04/10/24 16:06 Pulse Oximetry 96 04/10/24 16:06 Oxygen Delivery Method Nasal Cannula 04/10/24 16:06 Oxygen Flow Rate 2 04/10/24 16:06 Course <Vaishnavi Hinson DO - Last Filed: 04/15/24 07:20> Orders Ordered: Discontinued Medications Albuterol/Ipratropium (Albuterol/Ipratropium 3 Ml Ampul) 3 ml INH Q20M ROBERT Stop: 04/10/24 17:11 Last Admin: 04/10/24 17:18 Dose: 3 ml Documented By: Admin: 04/10/24 16:54 Dose: 3 ml Documented By: Admin: 04/10/24 16:30 Dose: 3 ml Documented By: BRITANY Albuterol/Ipratropium (Albuterol/Ipratropium 3 Ml Ampul) 3 ml INH NOW ONE Stop: 04/10/24 20:29 Last Admin: 04/10/24 20:33 Dose: 3 ml Documented By: MR Azithromycin (Azithromycin 250 Mg Tablet) 500 mg PO NOW ONE Stop: 04/10/24 18:40 Last Admin: 04/10/24 19:07 Dose: 500 mg Documented By: CARLOS Sodium Chloride (Normal Saline 0.9%) 500 mls @ 1,000 mls/hr IV BOLUS ONE Stop: 04/10/24 18:54 Last Infusion: 04/10/24 19:26 Dose: Infused Documented By: Admin: 04/10/24 18:29 Dose: 1,000 mls/hr Documented By: NADEGE Methylprednisolone (Methylprednisolone 125 Mg/2 Ml Vial) 125 mg IV NOW ONE Stop: 04/10/24 16:20 Last Admin: 04/10/24 16:25 Dose: 125 mg Documented By: NADEGE Vital Signs Vital signs: Vital Signs - 8 hr 04/10/24 16:06 04/10/24 16:07 04/10/24 16:09 Temperature 98.1 F Pulse Rate 113 H 110 H Respiratory Rate 32 H Blood Pressure 168/78 H 168/78 H Pulse Oximetry 96 99 Oxygen Delivery Method Nasal Cannula Oxygen Flow Rate 2 04/10/24 16:09 04/10/24 16:30 04/10/24 16:30 Temperature Pulse Rate 114 H 111 H Respiratory Rate 19 Blood Pressure 135/73 Pulse Oximetry 96 93 Oxygen Delivery Method Oxygen Flow Rate 04/10/24 16:31 04/10/24 17:00 04/10/24 17:00 Temperature Pulse Rate 112 H Respiratory Rate 14 Blood Pressure 105/67 Pulse Oximetry 94 93 Oxygen Delivery Method Nasal Cannula Oxygen Flow Rate 1 1 04/10/24 17:30 04/10/24 17:30 04/10/24 18:00 Temperature Pulse Rate 120 H Respiratory Rate 17 Blood Pressure 108/71 108/71 Pulse Oximetry 92 Oxygen Delivery Method Oxygen Flow Rate 04/10/24 18:00 04/10/24 18:30 04/10/24 18:30 Temperature Pulse Rate 116 H 112 H Respiratory Rate 24 18 Blood Pressure 116/68 Pulse Oximetry 94 95 Oxygen Delivery Method Nasal Cannula Nasal Cannula Oxygen Flow Rate 2 2 04/10/24 19:00 04/10/24 19:00 04/10/24 19:30 Temperature Pulse Rate 111 H Respiratory Rate 19 Blood Pressure 122/77 133/66 Pulse Oximetry 95 Oxygen Delivery Method Oxygen Flow Rate 04/10/24 19:30 04/10/24 19:56 04/10/24 19:56 Temperature Pulse Rate 107 H 105 H Respiratory Rate 17 22 Blood Pressure 131/76 Pulse Oximetry 96 93 Oxygen Delivery Method Nasal Cannula Nasal Cannula Oxygen Flow Rate 2 2 04/10/24 20:13 04/10/24 20:27 04/10/24 20:27 Temperature Pulse Rate 115 H 111 H Respiratory Rate Blood Pressure 132/74 Pulse Oximetry 94 95 Oxygen Delivery Method Nasal Cannula Oxygen Flow Rate 2 04/10/24 20:29 04/10/24 20:29 04/10/24 20:30 Temperature Pulse Rate 105 H Respiratory Rate Blood Pressure 138/77 135/73 Pulse Oximetry 95 Oxygen Delivery Method Oxygen Flow Rate 04/10/24 20:30 04/10/24 21:00 04/10/24 21:00 Temperature Pulse Rate 107 H 111 H Respiratory Rate 20 Blood Pressure 138/67 Pulse Oximetry 95 95 Oxygen Delivery Method Nasal Cannula Nasal Cannula Oxygen Flow Rate 2 2 <Elvis Gale, DO - Last Filed: 04/10/24 23:06> Orders Ordered: Discontinued Medications Albuterol/Ipratropium (Albuterol/Ipratropium 3 Ml Ampul) 3 ml INH Q20M ROBERT Stop: 04/10/24 17:11 Last Admin: 04/10/24 17:18 Dose: 3 ml Documented By: Admin: 04/10/24 16:54 Dose: 3 ml Documented By: Admin: 04/10/24 16:30 Dose: 3 ml Documented By: BRITANY Albuterol/Ipratropium (Albuterol/Ipratropium 3 Ml Ampul) 3 ml INH NOW ONE Stop: 04/10/24 20:29 Last Admin: 04/10/24 20:33 Dose: 3 ml Documented By: Azithromycin (Azithromycin 250 Mg Tablet) 500 mg PO NOW ONE Stop: 04/10/24 18:40 Last Admin: 04/10/24 19:07 Dose: 500 mg Documented By: CARLOS Sodium Chloride (Normal Saline 0.9%) 500 mls @ 1,000 mls/hr IV BOLUS ONE Stop: 04/10/24 18:54 Last Infusion: 04/10/24 19:26 Dose: Infused Documented By: Admin: 04/10/24 18:29 Dose: 1,000 mls/hr Documented By: NADEGE Methylprednisolone (Methylprednisolone 125 Mg/2 Ml Vial) 125 mg IV NOW ONE Stop: 04/10/24 16:20 Last Admin: 04/10/24 16:25 Dose: 125 mg Documented By: NADEGE Vital Signs Vital signs: Vital Signs - 8 hr 04/10/24 16:06 04/10/24 16:07 04/10/24 16:09 Temperature 98.1 F Pulse Rate 113 H 110 H Respiratory Rate 32 H Blood Pressure 168/78 H 168/78 H Pulse Oximetry 96 99 Oxygen Delivery Method Nasal Cannula Oxygen Flow Rate 2 04/10/24 16:09 04/10/24 16:30 04/10/24 16:30 Temperature Pulse Rate 114 H 111 H Respiratory Rate 19 Blood Pressure 135/73 Pulse Oximetry 96 93 Oxygen Delivery Method Oxygen Flow Rate 04/10/24 16:31 04/10/24 17:00 04/10/24 17:00 Temperature Pulse Rate 112 H Respiratory Rate 14 Blood Pressure 105/67 Pulse Oximetry 94 93 Oxygen Delivery Method Nasal Cannula Oxygen Flow Rate 1 1 04/10/24 17:30 04/10/24 17:30 04/10/24 18:00 Temperature Pulse Rate 120 H Respiratory Rate 17 Blood Pressure 108/71 108/71 Pulse Oximetry 92 Oxygen Delivery Method Oxygen Flow Rate 04/10/24 18:00 04/10/24 18:30 04/10/24 18:30 Temperature Pulse Rate 116 H 112 H Respiratory Rate 24 18 Blood Pressure 116/68 Pulse Oximetry 94 95 Oxygen Delivery Method Nasal Cannula Nasal Cannula Oxygen Flow Rate 2 2 04/10/24 19:00 04/10/24 19:00 04/10/24 19:30 Temperature Pulse Rate 111 H Respiratory Rate 19 Blood Pressure 122/77 133/66 Pulse Oximetry 95 Oxygen Delivery Method Oxygen Flow Rate 04/10/24 19:30 04/10/24 19:56 04/10/24 19:56 Temperature Pulse Rate 107 H 105 H Respiratory Rate 17 22 Blood Pressure 131/76 Pulse Oximetry 96 93 Oxygen Delivery Method Nasal Cannula Nasal Cannula Oxygen Flow Rate 2 2 04/10/24 20:13 04/10/24 20:27 04/10/24 20:27 Temperature Pulse Rate 115 H 111 H Respiratory Rate Blood Pressure 132/74 Pulse Oximetry 94 95 Oxygen Delivery Method Nasal Cannula Oxygen Flow Rate 2 04/10/24 20:29 04/10/24 20:29 04/10/24 20:30 Temperature Pulse Rate 105 H Respiratory Rate Blood Pressure 138/77 135/73 Pulse Oximetry 95 Oxygen Delivery Method Oxygen Flow Rate 04/10/24 20:30 04/10/24 21:00 04/10/24 21:00 Temperature Pulse Rate 107 H 111 H Respiratory Rate 20 Blood Pressure 138/67 Pulse Oximetry 95 95 Oxygen Delivery Method Nasal Cannula Nasal Cannula Oxygen Flow Rate 2 2 [facility] - /Dyspnea <Vaishnavi Hinson, DO - Last Filed: 04/15/24 07:20> Lab Data 04/10/24 16:16 04/10/24 16:16 Labs: Lab Results 04/10/24 04/10/24 Range/Units 16:05 16:16 WBC 8.2 (4.5-11.0) X10^3/uL RBC 4.17 L (4.5-5.9) X10^6/uL Hgb 11.0 L (13.5-17.5) g/dL Hct 34.4 L (41-53) % MCV 82.6 (80-100) fL MCH 26.4 (26-34) PG MCHC 32.0 (30-36) % RDW 16.0 H (11.6-14.8) % Plt Count 278 (150-400) X10^3/uL Neut % (Auto) 81.8 H (50-75) % Lymph % (Auto) 14.7 L (25-40) % Blaine % (Auto) 2.9 L (3-14) % Eos % (Auto) 0.3 L (2-4) % Baso % (Auto) 0.3 (0-2) % Neut # (Auto) 6700 (6616-9992) /uL Lymph # (Auto) 1200 (6115-4063) /uL Blaine # (Auto) 200 (0-900) /uL Eos # (Auto) 0 (0-450) /uL Baso # (Auto) 0 (0-100) /uL PT 10.8 (9.4-12.5) SECONDS INR 0.9 (0.9-1.3) Sodium 140 (137-145) mmol/L Potassium 4.6 (3.4-5.1) mmol/L Chloride 97 L (98-107) mmol/L Carbon Dioxide 39 H (22-32) mmol/L BUN 16 (9-20) mg/dL Creatinine 0.94 (0.66-1.25) mg/dL Estimated GFR > 60 (>60) mL/min BUN/Creatinine Ratio 17.0 (6-22) Glucose 120 H (80-110) mg/dL Lactate 1.9 (0.7-2.1) mmol/L Calcium 9.7 (8.4-10.2) mg/dL Total Bilirubin 0.3 (0.2-1.3) mg/dL AST 24 (17-59) IU/L ALT 17 (<50) IU/L Alkaline Phosphatase 60 (38-126) U/L Total Creatine Kinase 43 L (55-170) U/L Troponin I < 0.012 (0.01-0.034) ng/mL NT-Pro-B Natriuret Pep 52 (<125) pg/mL Total Protein 7.3 (6.3-8.2) g/dL Albumin 4.0 (3.5-5.0) g/dL Globulin 3.3 (1.7-4.1) g/dL Albumin/Globulin Ratio 1.2 (1.0-2.8) Chlamy pneumoniae PCR Not detected (Not Detect) Adenovirus (PCR) Not detected (Not Detect) B. pertussis DNA (PCR) Not detected (Not Detect) B.parapertussis DNA PCR Not detected (Not Detecte) Coronavirus OC43 (PCR) Not detected (Not Detect) Coronavirus HKU1 (PCR) Not detected (Not Detect) Coronavirus 229E (PCR) Not detected (Not Detect) SARS-CoV-2 (PCR) Not detected (Not Detecte) Coronavirus NL63 (PCR) Not detected (Not Detect) Human Metapneumovir PCR Not detected (Not Detect) Influenza Type A (PCR) Not detected (Not Detect) Influenza Type B (PCR) Not detected (Not Detect) M. pneumoniae (PCR) Not detected (Not Detect) Parainfluenza 1 (PCR) Not detected (Not Detect) Parainfluenza 2 (PCR) Not detected (Not Detect) Parainfluenza 3 (PCR) Not detected (Not Detect) Parainfluenza 4 (PCR) Not detected (Not Detect) RSV (PCR) Not detected (Not Detect) Entero/Rhino (PCR) Not detected (Not Detect) ECG Data Attestation: I personally reviewed and interpreted this ECG as follows: Prior ECG tracings: available for review Interpretation: Sinus tachycardia rate of 113 SD 146 QRS of 92 QTC of 411. No acute ST elevation or depression. Patient has prior from 12/14/2023 which appears similar. MDM Narrative Medical decision making narrative: 64-year-old male presents with what seems most likely a COPD exacerbation. Patient received several DuoNeb and Solu-Medrol and is improved. Patient is on his home O2 without increased requirement. Labs show white count 8.2 hemoglobin 11 consistent with priors platelets of 278, INR 0.9. Sodium is 140 potassium 4.6 chloride 97 CO2 is 39 BUN 16 creatinine 0.94, glucose of 120 lactate 1.9 troponins less than 0.012 with a BNP of 52. EKG shows sinus tachycardia. Chest x-ray shows decreased consolidation right middle lung zone, patient had prior opacity seen in right mid lung laterally in the past. Respiratory panel Patient is feeling much improved on rechecked, has a little bit tachycardic was going to little bit of fluids. He has been taking 10 mg prednisone daily we will do increase of dose and taper down did review his imaging including his chest x-ray with this current changes. Patient signed out to Dr. Gale while awaiting respiratory panel. He feels he can likely be discharged home. Is not requiring increased O2 does not have increased work of breathing. Likely has a COPD flare and discussed plan to increase his prednisone and then taper back down to usual dose. Dr Gale: Received turned over. Review patient's history and physical exam. Patient reports improvement of symptoms after his treatment here in the ER. He states he felt well enough to go home. Discharge meds were ordered by Dr. Hinson. Patient expressed comfort with going home and will return to the emergency department for worsening symptoms. <Elvis Gale, - Last Filed: 04/10/24 23:06> Lab Data Attestation: I reviewed the patient's lab results. Labs: Lab Results 04/10/24 04/10/24 Range/Units 16:05 16:16 WBC 8.2 (4.5-11.0) X10^3/uL RBC 4.17 L (4.5-5.9) X10^6/uL Hgb 11.0 L (13.5-17.5) g/dL Hct 34.4 L (41-53) % MCV 82.6 (80-100) fL MCH 26.4 (26-34) PG MCHC 32.0 (30-36) % RDW 16.0 H (11.6-14.8) % Plt Count 278 (150-400) X10^3/uL Neut % (Auto) 81.8 H (50-75) % Lymph % (Auto) 14.7 L (25-40) % Blaine % (Auto) 2.9 L (3-14) % Eos % (Auto) 0.3 L (2-4) % Baso % (Auto) 0.3 (0-2) % Neut # (Auto) 6700 (5487-0484) /uL Lymph # (Auto) 1200 (9403-5862) /uL Blaine # (Auto) 200 (0-900) /uL Eos # (Auto) 0 (0-450) /uL Baso # (Auto) 0 (0-100) /uL PT 10.8 (9.4-12.5) SECONDS INR 0.9 (0.9-1.3) Sodium 140 (137-145) mmol/L Potassium 4.6 (3.4-5.1) mmol/L Chloride 97 L (98-107) mmol/L Carbon Dioxide 39 H (22-32) mmol/L BUN 16 (9-20) mg/dL Creatinine 0.94 (0.66-1.25) mg/dL Estimated GFR > 60 (>60) mL/min BUN/Creatinine Ratio 17.0 (6-22) Glucose 120 H (80-110) mg/dL Lactate 1.9 (0.7-2.1) mmol/L Calcium 9.7 (8.4-10.2) mg/dL Total Bilirubin 0.3 (0.2-1.3) mg/dL AST 24 (17-59) IU/L ALT 17 (<50) IU/L Alkaline Phosphatase 60 (38-126) U/L Total Creatine Kinase 43 L (55-170) U/L Troponin I < 0.012 (0.01-0.034) ng/mL NT-Pro-B Natriuret Pep 52 (<125) pg/mL Total Protein 7.3 (6.3-8.2) g/dL Albumin 4.0 (3.5-5.0) g/dL Globulin 3.3 (1.7-4.1) g/dL Albumin/Globulin Ratio 1.2 (1.0-2.8) Chlamy pneumoniae PCR Not detected (Not Detect) Adenovirus (PCR) Not detected (Not Detect) B. pertussis DNA (PCR) Not detected (Not Detect) B.parapertussis DNA PCR Not detected (Not Detecte) Coronavirus OC43 (PCR) Not detected (Not Detect) Coronavirus HKU1 (PCR) Not detected (Not Detect) Coronavirus 229E (PCR) Not detected (Not Detect) SARS-CoV-2 (PCR) Not detected (Not Detecte) Coronavirus NL63 (PCR) Not detected (Not Detect) Human Metapneumovir PCR Not detected (Not Detect) Influenza Type A (PCR) Not detected (Not Detect) Influenza Type B (PCR) Not detected (Not Detect) M. pneumoniae (PCR) Not detected (Not Detect) Parainfluenza 1 (PCR) Not detected (Not Detect) Parainfluenza 2 (PCR) Not detected (Not Detect) Parainfluenza 3 (PCR) Not detected (Not Detect) Parainfluenza 4 (PCR) Not detected (Not Detect) RSV (PCR) Not detected (Not Detect) Entero/Rhino (PCR) Not detected (Not Detect) MDM Narrative Medical decision making narrative: 64-year-old male presents with what seems most likely a COPD exacerbation. Patient received several DuoNeb and Solu-Medrol and is improved. Patient is on his home O2 without increased requirement. Labs show white count 8.2 hemoglobin 11 consistent with priors platelets of 278, INR 0.9. Sodium is 140 potassium 4.6 chloride 97 CO2 is 39 BUN 16 creatinine 0.94, glucose of 120 lactate 1.9 troponins less than 0.012 with a BNP of 52. EKG shows sinus tachycardia. Chest x-ray shows decreased consolidation right middle lung zone, patient had prior opacity seen in right mid lung laterally in the past. Respiratory panel Patient is feeling much improved on rechecked, has a little bit tachycardic was going to little bit of fluids. He has been taking 10 mg prednisone daily we will do increase of dose and taper down did review his imaging including his chest x-ray with this current changes. Patient signed out to Dr. Gale while awaiting respiratory panel. Dr Gale: Received turned over. Review patient's history and physical exam. Patient reports improvement of symptoms after his treatment here in the ER. He states he felt well enough to go home. Discharge meds were ordered by Dr. Hinson. Patient expressed comfort with going home and will return to the emergency department for worsening symptoms. Discharge Plan Departure Patient Disposition: Home Clinical Impression: Acute exacerbation of chronic obstructive pulmonary disease Instructions: Chronic Obstructive Pulmonary Disease Activity Restrictions/Additional Instructions: Follow up for recheck with your physician in the next week. Increase your prednisone, please taper back down to your prior dose of 10 mg daily. A prescription was sent to [facility]. Please return if new or worsening chest pain, shortness of breath, lightheadedness or passing out, new swelling in your extremities or other new or concerning changes. Prescriptions: New prednisone 10 mg tablets,dose pack See Rx Instructions .ROUTE .COMPLEX Qty: 21 0RF Rx Instructions: 6 tabs p.o. x1 day, then 5 tabs p.o. x1 day, then 4 tablets p.o. x1 day, then 3 tabs p.o. x1 day, then 2 tabs p.o. x1 day, then 1 tab p.o. x1 day azithromycin 250 mg tablet See Rx Instructions .ROUTE .COMPLEX Qty: 4 0RF Rx Instructions: For 250 mg dose pack: take 500 mg today (day 1), then 250 mg for 4 days (days 2-5) No Action (DME) Disabled Parking Permit Qty: 1 0RF Rx Instructions: Patient qualifies for permanent disabled parking permit. ipratropium-albuterol 0.5 mg-3 mg(2.5 mg base)/3 mL solution for nebulization 3 ml INHALATION BID PRN (Reason: wheezing/ SOB) Qty: 90 11RF nystatin 100,000 unit/mL suspension 5 ml PO QID Qty: 200 1RF benzonatate 100 mg capsule 100 mg PO BID-TID Qty: 270 1RF prednisone 20 mg tablet See Rx Instructions .ROUTE .COMPLEX Qty: 90 1RF Dose Instruction: TAKE 1 TABLET (20 MG) BY MOUTH DAILY FOR COPD Rx Instructions: TAKE 1 TABLET (20 MG) BY MOUTH DAILY FOR COPD albuterol sulfate [Ventolin HFA] 90 mcg/actuation HFA aerosol inhaler 1 - 2 puff PO Q4H PRN (Reason: for wheezing) Qty: 54 1RF montelukast 10 mg tablet 10 mg PO QPM Qty: 90 3RF Dulera 200-5 mcg/actuation HFA aerosol inhaler See Rx Instructions .ROUTE .COMPLEX Qty: 13 6RF Dose Instruction: INHALE 2 PUFFS BY MOUTH TWICE DAILY Rx Instructions: INHALE 2 PUFFS BY MOUTH TWICE DAILY simvastatin 20 mg tablet 20 mg PO DAILY Qty: 90 3RF Spiriva with HandiHaler 18 mcg capsule, w/inhalation device 18 mcg inhalation DAILY Qty: 90 3RF ascorbate calcium (vitamin C) 500 mg tablet 500 mg PO DAILY mupirocin 2 % ointment 1 applic topical BID Qty: 15 0RF Rx Instructions: apply to bed sore clonazepam 0.5 mg tablet 0.5 mg PO TID Qty: 90 2RF ferrous gluconate 324 mg (38 mg iron) tablet 324 mg PO DAILY Qty: 90 1RF acetaminophen 325 mg Tablet 1 dose PO PRN PRN (Reason: pain) magnesium hydroxide 400 mg/5 mL Suspension 1 dose PO PRN PRN (Reason: Indigestion) Patient Comments: patient states uses often Mylanta ibuprofen 200 mg Tablet 1 dose PO PRN PRN (Reason: pain) nitroglycerin 0.3 mg tablet, sublingual 0.3 mg sublingual Q5-15M PRN (Reason: chest pain) Qty: 20 0RF Rx Instructions: do not exceed 3 doses per episode prednisone 10 mg tablet 10 mg PO DAILY Qty: 30 0RF Rx Instructions: day 1-3: 40 mg once a day day 4-6: 30 mg once a day day 7-9: 20 mg once a day day 10-12: 10 mg once a day prednisone 20 mg tablet 20 mg PO DAILY Qty: 90 0RF Rx Instructions: begin 60mg daily on 10/30. decrease by 10mg q4 days. Remain at 10mg daily when completed taper Referrals: Saqib Oilva DO [Primary Care Provider] - Stand Alone Forms: Patient Portal/API
[2024-04-10] MEDS: methylPREDNISolone 125 MG/2 ML VIAL IV (16:25)
[2024-04-10] MEDS: ALBUTEROL/IPRATROPIUM 3 ML AMPUL INH ×4 (16:30→20:33)
[2024-04-10 16:31] LABS: INR 0.9 (0.9-1.3); Prothrombin Time 10.8 SECONDS (9.4-12.5)
[2024-04-10 16:35] LABS: Add Manual Diff / Slide Review NO; Basophils Absolute Auto 0 /uL (0-100); Basophils Percent Auto 0.3 % (0-2); Eosinophils Absolute Auto 0 /uL (0-450); Eosinophils Percent Auto 0.3 % (2-4); Hematocrit 34.4 % (41-53); Lymphocytes Absolute Auto 1200 /uL (1100-4500); Lymphocytes Percent Auto 14.7 % (25-40); Mean Corpuscular Hemoglobin 26.4 PG (26-34); Mean Corpuscular Volume 82.6 fL (80-100); Monocytes Absolute Auto 200 /uL (0-900); Monocytes Percent Auto 2.9 % (3-14); Neutrophils Absolute Auto 6700 /uL (1500-7000); Neutrophils Percent Auto 81.8 % (50-75); Platelet Count 278 X10^3/uL (150-400); Red Blood Cell Count 4.17 X10^6/uL (4.5-5.9); White Blood Cell Count 8.2 X10^3/uL (4.5-11.0)
[2024-04-10 16:36] LABS: Creatine Kinase 43 U/L (55-170)
[2024-04-10 16:37] LABS: Lactate (Lactic Acid) 1.9 mmol/L (0.7-2.1)
[2024-04-10 16:42] LABS: Alanine Aminotransferase 17 IU/L (<50); Albumin Globulin Ratio 1.2 (1.0-2.8); Alkaline Phosphatase 60 U/L (38-126); Aspartate Aminotransferase 24 IU/L (17-59); Bilirubin Total 0.3 mg/dL (0.2-1.3); Blood Urea Nitrogen 16 mg/dL (9-20); Calcium 9.7 mg/dL (8.4-10.2); Carbon Dioxide 39 mmol/L (22-32); Chloride 97 mmol/L (98-107); Estimated Glomerular Filt Rate > 60 mL/min (>60); Globulin 3.3 g/dL (1.7-4.1); Glucose 120 mg/dL (80-110); HEMOLYSIS < 15 (0-50); Potassium 4.6 mmol/L (3.4-5.1); Sodium 140 mmol/L (137-145); Total Protein 7.3 g/dL (6.3-8.2)
[2024-04-10 16:50] LABS: Troponin I < 0.012 ng/mL (0.01-0.034)
[2024-04-10 16:51] LABS: NT-proBNP (BNP-Adult 18+) 52 pg/mL (<125)
[2024-04-10] MEDS: SODIUM CHLORIDE 0.9% 500 ML 1000 ML IV (18:29)
[2024-04-10 18:40] LABS: Adenovirus Not Detected (Not Detect); B. parapertussis Not Detected (Not Detecte); Bordetella pertussis Not Detected (Not Detect); Chlamydophila pneumoniae Not Detected (Not Detect); Coronavirus 229E Not Detected (Not Detect); Coronavirus HKU1 Not Detected (Not Detect); Coronavirus NL 63 Not Detected (Not Detect); Coronavirus OC43 Not Detected (Not Detect); Human Metapneumovirus Not Detected (Not Detect); Human Rhinovirus/Enterovirus Not Detected (Not Detect); Influenza A Not Detected (Not Detect); Influenza B Not Detected (Not Detect); Mycoplasma pneumoniae Not Detected (Not Detect); Parainfluenza Virus 1 Not Detected (Not Detect); Parainfluenza Virus 2 Not Detected (Not Detect); Parainfluenza Virus 3 Not Detected (Not Detect); Parainfluenza Virus 4 Not Detected (Not Detect); Respiratory Syncytial Virus Not Detected (Not Detect); SARS- CoV-2 Not Detected (Not Detecte)
[2024-04-10] MEDS: AZITHROMYCIN 250 MG TABLET 500 MG PO (19:07)
--- NOTE | 2024-04-10 20:13 | PC.NURSE ---
Pt gets ready to discharge and becomes tachypenic with movement and increased work of breathing. Provider Shahla made aware. RT called.
--- NOTE | 2024-04-10 20:42 | PC.NURSE ---
Iv's removed as patient was being discharged at 2011
== END 2024-04-10 21:12 | disposition home or self-care (01) ==
PROVIDERS: Emergency Medicine; Emergency Provider Emergency Medicine; PCP Family Medicine
DX: J44.1 Chronic obstructive pulmonary disease with (acute) exacerbation (principal); R00.0 Tachycardia, unspecified; Z11.52 Encounter for screening for COVID-19
CPT/HCPCS: 36415; 71045; 80053; 82550; 83605; 83880; 84484; 85025; 85610; 87633; 93005; 93010; 94640; 96361; 96374; 99285; J2919

== ENCOUNTER 2024-05-14 12:16 | Emergency (ER) | payer MEDICARE, MEDICAID, SELFPAY ==
[2022-11-18 19:35] VITALS: BMI 23.6
[2024-05-14] VITALS (13 sets, daily range): BP systolic 126–150; BP diastolic 63–73; PULSE 88–95; RESP 12–25; TEMP 36.6; O2SAT 94–97; BMI 24.2
--- NOTE | 2024-05-14 12:30 | DI.RAD.S_ITS ---
PROCEDURE: XR CHEST 1V INDICATIONS: increase sputum production TECHNIQUE: One view of the chest was acquired. COMPARISON: [facility], JOSE, XR CHEST 1V, 04/10/2024, 16:20. [facility], CR, XR CHEST 1V, 12/14/2023, 11:07. FINDINGS: Surgical changes and devices: None. Lungs and pleura: Lungs are clear. Stable mild right upper lobe scarring. No pleural effusions or pneumothorax. Mediastinum: Mediastinal contours appear normal. Heart size is normal. Bones and chest wall: No suspicious bony lesions. Overlying soft tissues appear unremarkable. IMPRESSION: No acute cardiopulmonary abnormality is seen. Approved by: iRchard Salas M.D. on 05/14/2024 at 13:45
--- NOTE | 2024-05-14 14:11 | ED_ITS ---
HPI - URI/Sore Throat General Chief Complaint: Upper Respiratory Symptoms Stated Complaint: coughing up blood Time Seen by Provider: 05/14/24 13:50 Source: patient and EMS Mode of arrival: EMS History of Present Illness HPI Narrative: Patient is a 63-year-old male history of chronic COPD on home oxygen, presenting today with hemoptysis. He reports that he had about a quarter-size half-dollar size amount of hemoptysis. Tums like it happened twice however he has been coughing up clear mucus ever since. He denies any worsening shortness of breath no significant chest pain. He coughs all the time it was not anymore significantly hard. He has absolutely no chest pain no fever or chills. Not on anticoagulation or antiplatelet medication Related Data Home Medications Medication Instructions Recorded Confirmed acetaminophen 325 mg tablet 1 dose PO PRN PRN pain 12/29/18 05/14/24 ibuprofen 200 mg tablet 1 dose PO PRN PRN pain 12/29/18 05/14/24 magnesium hydroxide 400 mg/5 mL 1 dose PO PRN PRN Indigestion 12/29/18 05/14/24 oral suspension ascorbate calcium (vitamin C) 500 500 mg PO DAILY 08/06/23 05/14/24 mg tablet acetaminophen 500 mg tablet 500 mg PO BID pain/body ache 05/14/24 05/14/24 albuterol sulfate 2.5 mg/3 mL 2.5 mg continuous nebulization QID 05/14/24 05/14/24 (0.083 %) solution for nebulization PRN wheezing, sob, copd aluminum-mag hydroxide-simethicone See Rx Instructions .Route 05/14/24 05/14/24 400 mg-400 mg-40 mg/5 mL oral susp .COMPLEX PRN heartburn/gas aspirin 81 mg tablet,delayed 81 mg PO DAILY 05/14/24 05/14/24 release benzonatate 100 mg capsule 100 mg PO BID-TID PRN Cough 05/14/24 05/14/24 cetirizine 10 mg tablet 10 mg PO DAILY PRN allergy/asthma 05/14/24 05/14/24 clonazepam 0.5 mg tablet 0.5 mg PO BID PRN anxiety/sedation 05/14/24 05/14/24 guaifenesin 400 mg tablet 400 mg PO TID PRN thin/clear mucus 05/14/24 05/14/24 in lungs ipratropium 0.5 mg-albuterol 3 mg 3 ml inhalation BID PRN wheezing/ 05/14/24 05/14/24 (2.5 mg base)/3 mL nebulization SOB/ copd soln montelukast 10 mg tablet 10 mg PO BEDTIME 05/14/24 05/14/24 multivitamin with minerals-folic 1 tab PO DAILY 05/14/24 05/14/24 acid 0.4 mg tablet mupirocin 2 % topical ointment 1 applic topical BID PRN treat 05/14/24 05/14/24 infection/wound prn nystatin 100,000 unit/mL oral 5 ml PO QID PRN thrush 05/14/24 05/14/24 suspension ondansetron HCl 4 mg tablet 4 mg PO Q6-8H PRN Nausea/Vomiting 05/14/24 05/14/24 Previous Rx's Medication Instructions Recorded Disabled Parking Permit #1 ea 06/24/19 nitroglycerin 0.3 mg sublingual 0.3 mg sublingual Q5-15M PRN chest 01/23/21 tablet pain #20 tabs prednisone 10 mg tablet 10 mg PO DAILY #30 tabs 10/13/23 mometasone-formoterol HFA 200 See Rx Instructions .Route 11/13/23 mcg-5 mcg/actuation aerosol .COMPLEX #13 grams inhaler (Dulera) simvastatin 20 mg tablet 20 mg PO DAILY #90 tabs 01/26/24 ferrous gluconate 324 mg (38 mg 324 mg PO DAILY #90 tabs 03/28/24 iron) tablet albuterol sulfate 90 mcg/actuation 1 - 2 puff PO Q4H PRN for wheezing 04/26/24 aerosol inhaler (Ventolin HFA) #54 grams levofloxacin 750 mg tablet 750 mg PO DAILY 5 days #5 tabs 05/14/24 Allergies Allergy/AdvReac Type Severity Reaction Status Date / Time cinnamon [CINNAMON] Allergy Severe RESP Verified 05/14/24 12:25 PROBLEMS AND SWELLING Sulfa (Sulfonamide Allergy Severe anaphylacti Verified 05/14/24 12:25 Antibiotics) c [SULFA (SULFONAMIDE ANTIBIOTICS)] fluticasone [FLUTICASONE] Allergy Intermediate FEELS Verified 05/14/24 12:25 LIKE FIRE IN THE LUNGS trimethoprim [TRIMETHOPRIM] Allergy Unknown Patient Verified 05/14/24 12:25 can't remember codeine [CODEINE] AdvReac Intermediate violent Verified 05/14/24 12:25 doxycycline [DOXYCYCLINE] AdvReac Mild N/V Verified 05/14/24 12:25 dextromethorphan AdvReac Verified 05/14/24 12:25 fentanyl AdvReac Verified 05/14/24 12:25 Patient History Medical History Fatigue Ventricular tachycardia (paroxysmal) Anemia Palpitations GERD with stricture HTN (hypertension) Insomnia (~2015) Hyperlipidemia (~2015) Anxiety (~2015) COPD (chronic obstructive pulmonary disease) (~2013) Asthma (Unknown) TIA (transient ischemic attack) (05/2014) Hematuria (~2014) Surgical History No pertinent past surgical history Family History Mother Age: 85 Hypertension Sister Age: 68 Cancer Social History household members: none Smoking Status: Current some day smoker Tobacco: How many years used: 47 quit status: considering quitting second hand exposure: No alcohol intake: former substance use type: does not use Smoking Status: Current some day smoker tobacco type: cigarettes alcohol intake frequency: holidays/special occasions only Substance Use Type: does not use Exam Initial Vital Signs Initial Vital Signs: Vital Signs Pulse Rate 95 H 05/14/24 12:22 Blood Pressure 126/66 05/14/24 12:22 Pulse Oximetry 96 05/14/24 12:22 Oxygen Delivery Method Nasal Cannula 05/14/24 12:22 Oxygen Flow Rate 2 05/14/24 12:22 GENERAL: Alert very well-appearing 63-year-old male and in no acute distress. HEENT: Head atraumatic,EOMI, pupils reactive, face symmetric, moist mucous membranes CARDIOVASCULAR: Regular rate and rhythm without murmurs, rubs or gallops. RESPIRATORY: Breath sounds equal bilaterally, no wheezes rales or rhonchi. ABDOMEN: Soft, nontender. Normoactive bowel sounds all 4 quadrants. No guarding or rebound. EXTREMITIES: Normal range of motion, no clubbing or edema. Neurovascularly intact NEUROLOGICAL: Alert and oriented x4.Normal gait and speech. SKIN: Warm, dry, no laceration, no petechiae, no rashes or lesions. Scores Wells' Criteria for PE Clinical signs and symptoms of DVT: No PE is #1 Dx or equally likely: No Heart rate > 100: No Immobilization at least 3 days or surg in previous 4 weeks: No History of PE or DVT: No Hemoptysis: Yes Malignancy w/Treatment within 6 months or palliative: No Wells' PE Score total: 1 Course Orders Ordered: ED Orders 05/14/24 12:22 Sputum Culture Stat 05/14/24 12:30 XR chest 1V Stat 05/14/24 14:29 BNP [NT-proBNP (BNP-Adult 18+)] Stat CBC Auto Diff [Complete Blood Count AUTO DIFF] Stat CMP [Comprehensive Metabolic Panel] Stat D Dimer Stat PT [Prothrombin Time INR] Stat PTT Partial Thromboplastin Negro Stat Troponin & CK Cardiac Panel Stat 05/14/24 15:27 CT angio chest PE protocol Stat Discontinued Medications Levofloxacin (Levofloxacin 250 Mg Tablet) 750 mg PO NOW ONE Stop: 05/14/24 16:32 Last Admin: 05/14/24 16:42 Dose: 750 mg Documented By: ISAIAS Vital Signs Vital signs: Vital Signs - 8 hr 05/14/24 12:22 05/14/24 12:22 05/14/24 12:25 Temperature 97.8 F Pulse Rate 95 H 92 H Respiratory Rate 18 Blood Pressure 126/66 126/66 Pulse Oximetry 96 96 Oxygen Delivery Method Nasal Cannula Nasal Cannula Oxygen Flow Rate 2 2 05/14/24 12:30 05/14/24 13:00 05/14/24 13:24 Temperature Pulse Rate 89 92 H Respiratory Rate 22 25 H Blood Pressure 130/71 Pulse Oximetry 97 95 Oxygen Delivery Method Nasal Cannula Nasal Cannula Oxygen Flow Rate 2 2 05/14/24 13:24 05/14/24 13:30 05/14/24 13:30 Temperature Pulse Rate 90 91 H Respiratory Rate 23 18 Blood Pressure 150/69 H Pulse Oximetry 95 94 Oxygen Delivery Method Nasal Cannula Nasal Cannula Oxygen Flow Rate 2 2 05/14/24 14:00 05/14/24 14:00 05/14/24 14:30 Temperature Pulse Rate 88 90 Respiratory Rate 16 18 Blood Pressure 131/65 Pulse Oximetry 96 96 Oxygen Delivery Method Nasal Cannula Nasal Cannula Oxygen Flow Rate 2 2 05/14/24 14:30 05/14/24 15:00 05/14/24 15:00 Temperature Pulse Rate 90 Respiratory Rate 13 Blood Pressure 135/69 139/67 Pulse Oximetry 95 Oxygen Delivery Method Nasal Cannula Oxygen Flow Rate 2 05/14/24 15:30 05/14/24 15:30 05/14/24 15:46 Temperature Pulse Rate 91 H Respiratory Rate 16 Blood Pressure 143/70 H 139/73 Pulse Oximetry 96 Oxygen Delivery Method Nasal Cannula Oxygen Flow Rate 2 05/14/24 15:46 05/14/24 16:00 05/14/24 16:00 Temperature Pulse Rate 94 H 91 H Respiratory Rate 19 16 Blood Pressure 133/63 Pulse Oximetry 96 96 Oxygen Delivery Method Nasal Cannula Oxygen Flow Rate 2 05/14/24 16:30 05/14/24 16:30 Temperature Pulse Rate 91 H Respiratory Rate 12 Blood Pressure 140/70 Pulse Oximetry 97 Oxygen Delivery Method Nasal Cannula Oxygen Flow Rate 2 MDM - URI/Sore Throat Lab Data 05/14/24 14:29 05/14/24 14:29 Labs: Lab Results 05/14/24 Range/Units 14:29 WBC 9.7 (4.5-11.0) X10^3/uL RBC 3.91 L (4.5-5.9) X10^6/uL Hgb 10.4 L (13.5-17.5) g/dL Hct 33.1 L (41-53) % MCV 84.6 (80-100) fL MCH 26.5 (26-34) PG MCHC 31.3 (30-36) % RDW 16.8 H (11.6-14.8) % Plt Count 192 (150-400) X10^3/uL Neut % (Auto) 87.8 H (50-75) % Lymph % (Auto) 8.2 L (25-40) % Morrison % (Auto) 3.2 (3-14) % Eos % (Auto) 0.3 L (2-4) % Baso % (Auto) 0.5 (0-2) % Neut # (Auto) 8500 H (7880-0816) /uL Lymph # (Auto) 800 L (4393-1022) /uL Morrison # (Auto) 300 (0-900) /uL Eos # (Auto) 0 (0-450) /uL Baso # (Auto) 0 (0-100) /uL PT 10.6 (9.4-12.5) SECONDS INR 0.9 (0.9-1.3) APTT 36 (25.1-36.5) SECONDS D-Dimer 708 H (<500) ng/ml Sodium 140 (137-145) mmol/L Potassium 4.4 (3.4-5.1) mmol/L Chloride 100 (98-107) mmol/L Carbon Dioxide 39 H (22-32) mmol/L BUN 15 (9-20) mg/dL Creatinine 0.90 (0.66-1.25) mg/dL Estimated GFR > 60 (>60) mL/min BUN/Creatinine Ratio 16.7 (6-22) Glucose 114 H (80-110) mg/dL Calcium 9.6 (8.4-10.2) mg/dL Total Bilirubin 0.3 (0.2-1.3) mg/dL AST 25 (17-59) IU/L ALT 16 (<50) IU/L Alkaline Phosphatase 58 (38-126) U/L Total Creatine Kinase 48 L (55-170) U/L Troponin I < 0.012 (0.01-0.034) ng/mL NT-Pro-B Natriuret Pep 52 (<125) pg/mL Total Protein 6.9 (6.3-8.2) g/dL Albumin 3.8 (3.5-5.0) g/dL Globulin 3.1 (1.7-4.1) g/dL Albumin/Globulin Ratio 1.2 (1.0-2.8) Imaging Data Chest x-ray: Radiologist's Impression: PROCEDURE: XR CHEST 1V INDICATIONS: increase sputum production TECHNIQUE: One view of the chest was acquired. COMPARISON: [facility], CR, XR CHEST 1V, 04/10/2024, 16:20. [facility], CR, XR CHEST 1V, 12/14/2023, 11:07. FINDINGS: Surgical changes and devices: None. Lungs and pleura: Lungs are clear. Stable mild right upper lobe scarring. No pleural effusions or pneumothorax. Mediastinum: Mediastinal contours appear normal. Heart size is normal. Bones and chest wall: No suspicious bony lesions. Overlying soft tissues appear unremarkable. IMPRESSION: No acute cardiopulmonary abnormality is seen. Approved by: Richard Salas M.D. on 05/14/2024 at 13:45 MDM Narrative Medical decision making narrative: MDM CC: Hemoptysis Complicating co-morbidities: Chronic COPD on home oxygen Medical records reviewed: Previous ED visits Differential considered: Pulmonary embolism congestive heart failure pneumonia, TB, lung Cancer Exam documented above, pertinent findings include: Alert well-appearing 63-year-old male no acute respiratory distress Lab Test results independently reviewed as above. Pertinent findings: dimer 708 CBC WBC 9.7 hemoglobin 10.4 hematocrit 33.1 CMP sodium 140 potassium 4.4 chloride 100 carbon dioxide 39 which is baseline creatinine 0.9 Troponin negative BNP 52 also baseline Independently reviewed EKG as above Imaging studies independently reviewed: Chest x-ray no process CT angio no pulmonary embolism, right mid lung does show consolidation suspicion for infection Treatments: None Re-evaluations: Remains baseline and stable Discussion: Patient 63-year-old male presenting today with scant amount of hemoptysis. It has cleared. He is not tachycardic or requiring more oxygen he has absolutely no chest pain. On exam he appears well. Chest x-ray does not show any evidence of pneumonia, troponin is negative BNP is 52 not consistent with congestive heart failure he does not appear fluid overloaded. Low concern for any sort of tuberculosis and he has no diagnosis of cancer at this time. Pulmonary embolism considered he does have a D-dimer of 700 with hemoptysis however he has a low Wells score. Discussed CT with patient he is agreeable to CT does not show pulmonary embolism but does show possible pneumonia which may explain his mild hemoptysis. I have looked at prior CT which does look a little different. He has no leukocytosis no fever. No evidence of sepsis. Discussed with him antibiotics. He reports that azithromycin doxycycline no really work for him anymore. Many has reactions to amoxicillin. He is agreeable to Levaquin. Discharge Plan Departure Patient Disposition: Home Clinical Impression: Hemoptysis, Pneumonia, Anemia Instructions: DI for Pneumonia -- Adult, DI for Hemoptysis Activity Restrictions/Additional Instructions: *You have been diagnosed with pneumonia, hemoptysis *What to do: At this time please continue to monitor the blood. It should definitely slow down. N *Continue to take medications as directed Levaquin 750 mg once a day for 5 days *Follow up with your primary care provider in 2-3 days or call [phone] *Return to ER if you should have coughing up half dollar size amounts of blood, blood clots increasing shortness of breath or any new, worsening or concerning symptoms Prescriptions: New levofloxacin 750 mg tablet 750 mg PO DAILY 5 Days Qty: 5 0RF No Action (DME) Disabled Parking Permit Qty: 1 0RF Rx Instructions: Patient qualifies for permanent disabled parking permit. Dulera 200-5 mcg/actuation HFA aerosol inhaler See Rx Instructions .ROUTE .COMPLEX Qty: 13 6RF Dose Instruction: INHALE 2 PUFFS BY MOUTH TWICE DAILY Rx Instructions: INHALE 2 PUFFS BY MOUTH TWICE DAILY simvastatin 20 mg tablet 20 mg PO DAILY Qty: 90 3RF albuterol sulfate [Ventolin HFA] 90 mcg/actuation HFA aerosol inhaler 1 - 2 puff PO Q4H PRN (Reason: for wheezing) Qty: 54 1RF ascorbate calcium (vitamin C) 500 mg tablet 500 mg PO DAILY ferrous gluconate 324 mg (38 mg iron) tablet 324 mg PO DAILY Qty: 90 1RF acetaminophen 325 mg Tablet 1 dose PO PRN PRN (Reason: pain) magnesium hydroxide 400 mg/5 mL Suspension 1 dose PO PRN PRN (Reason: Indigestion) Patient Comments: patient states uses often Mylanta ibuprofen 200 mg Tablet 1 dose PO PRN PRN (Reason: pain) nitroglycerin 0.3 mg tablet, sublingual 0.3 mg sublingual Q5-15M PRN (Reason: chest pain) Qty: 20 0RF Rx Instructions: do not exceed 3 doses per episode albuterol sulfate 2.5 mg /3 mL (0.083 %) Solution For Nebulization 2.5 mg continuous nebulization QID PRN (Reason: wheezing, sob, copd ) Rx Instructions: with ipratropium bromide solution for nebulization cetirizine 10 mg Tablet 10 mg PO DAILY PRN (Reason: allergy/asthma) Rx Instructions: in evening as needed ondansetron HCl [Zofran] 4 mg Tablet 4 mg PO Q6-8H PRN (Reason: Nausea/Vomiting) Rx Instructions: either PO tablet or ODT unsure which aspirin [Aspir-81] 81 mg Tablet,Delayed Release (Dr/Ec) 81 mg PO DAILY acetaminophen 500 mg Tablet 500 mg PO BID alum-mag hydroxide-simeth [Mylanta Double-Strength] 400-400-40 mg/5 mL Suspension See Rx Instructions .ROUTE .COMPLEX MDD 120 ml PRN (Reason: heartburn/gas) Rx Instructions: [employer] Brand Mylanta Gas -- 400 mg Aluminum Hydroxide, 400mg Magnesium Hydroxide, 40mg Simethicone/10 ml (Suspension) 10 to 20 ml PRN with/after meals & bedtime as needed for heartburn/gas relief by Mouth Max dose 120 ml total/24 hours guaifenesin 400 mg Tablet 400 mg PO TID PRN (Reason: thin/clear mucus in lungs) multivit with min-folic acid [Adult One Daily Multivitamin] 0.4 mg Tablet 1 tab PO DAILY nystatin 100,000 unit/mL suspension 5 ml PO QID PRN (Reason: thrush) ipratropium-albuterol 0.5 mg-3 mg(2.5 mg base)/3 mL solution for nebulization 3 ml INHALATION BID PRN (Reason: wheezing/ SOB/ copd) Rx Instructions: with albuterol solution for nebulization clonazepam 0.5 mg tablet 0.5 mg PO BID PRN (Reason: anxiety/sedation) benzonatate 100 mg capsule 100 mg PO BID-TID PRN (Reason: Cough) mupirocin 2 % ointment 1 applic topical BID PRN (Reason: treat infection/wound prn) Rx Instructions: apply to bed sore montelukast 10 mg tablet 10 mg PO BEDTIME prednisone 10 mg tablet 10 mg PO DAILY Qty: 30 0RF Rx Instructions: day 1-3: 40 mg once a day day 4-6: 30 mg once a day currently 05/14/24 on 10 mg (1 tab) Q Day day 7-9: 20 mg once a day day 10-12: 10 mg once a day Referrals: Saqib Oliva DO [Primary Care Provider] - Stand Alone Forms: Patient Portal/API/Survey
[2024-05-14 14:44] LABS: Add Manual Diff / Slide Review NO; Basophils Absolute Auto 0 /uL (0-100); Basophils Percent Auto 0.5 % (0-2); Eosinophils Absolute Auto 0 /uL (0-450); Eosinophils Percent Auto 0.3 % (2-4); Hematocrit 33.1 % (41-53); Hemoglobin 10.4 g/dL (13.5-17.5); Lymphocytes Absolute Auto 800 /uL (1100-4500); Lymphocytes Percent Auto 8.2 % (25-40); Mean Corpuscular HGB Conc 31.3 % (30-36); Mean Corpuscular Hemoglobin 26.5 PG (26-34); Mean Corpuscular Volume 84.6 fL (80-100); Monocytes Absolute Auto 300 /uL (0-900); Monocytes Percent Auto 3.2 % (3-14); Neutrophils Absolute Auto 8500 /uL (1500-7000); Neutrophils Percent Auto 87.8 % (50-75); Platelet Count 192 X10^3/uL (150-400); Red Blood Cell Count 3.91 X10^6/uL (4.5-5.9); Red Cell Distribution Width 16.8 % (11.6-14.8); White Blood Cell Count 9.7 X10^3/uL (4.5-11.0)
[2024-05-14 14:51] LABS: INR 0.9 (0.9-1.3); Prothrombin Time 10.6 SECONDS (9.4-12.5)
[2024-05-14 14:53] LABS: D Dimer 708 ng/ml (<500)
[2024-05-14 14:54] LABS: PTT Partial Thromboplastin Tim 36 SECONDS (25.1-36.5)
[2024-05-14 14:55] LABS: Alanine Aminotransferase 16 IU/L (<50); Albumin 3.8 g/dL (3.5-5.0); Albumin Globulin Ratio 1.2 (1.0-2.8); Alkaline Phosphatase 58 U/L (38-126); Aspartate Aminotransferase 25 IU/L (17-59); BUN Creatinine Ratio 16.7 (6-22); Bilirubin Total 0.3 mg/dL (0.2-1.3); Blood Urea Nitrogen 15 mg/dL (9-20); Calcium 9.6 mg/dL (8.4-10.2); Carbon Dioxide 39 mmol/L (22-32); Chloride 100 mmol/L (98-107); Creatine Kinase 48 U/L (55-170); Estimated Glomerular Filt Rate > 60 mL/min (>60); Globulin 3.1 g/dL (1.7-4.1); Glucose 114 mg/dL (80-110); HEMOLYSIS < 15 (0-50); Potassium 4.4 mmol/L (3.4-5.1); Sodium 140 mmol/L (137-145); Total Protein 6.9 g/dL (6.3-8.2)
[2024-05-14 15:07] LABS: NT-proBNP (BNP-Adult 18+) 52 pg/mL (<125); Troponin I < 0.012 ng/mL (0.01-0.034)
--- NOTE | 2024-05-14 15:27 | DI.CT.S_ITS ---
PROCEDURE: CT ANGIO CHEST PE PROTOCOL INDICATIONS: Hemoptysis elevated dimer TECHNIQUE: After the administration of intravenous contrast, 2 mm thick sections acquired from the pulmonary apices to the posterior costophrenic angles. 3-dimensional maximum intensity projection (MIP) coronal and sagittal reformats were then acquired through the thorax. For radiation dose reduction, the following was used: automated exposure control, adjustment of mA and/or kV according to patient size. COMPARISON: [facility], CT, CT CHEST WITHOUT CONTRAST, 05/19/2019, 13:38. [facility], CR, XR CHEST 1V, 05/14/2024, 12:43. [facility], CT, CT ANGIO CHEST PE PROTOCOL, 09/13/2023, 10:57. FINDINGS: Image quality: Diagnostic. Pulmonary arteries: Pulmonary arteries are normal in size, and demonstrate no intraluminal filling defects to suggest central pulmonary embolism. Lower Neck: No enlarged lymph nodes. Thyroid: No thyroid nodules which require sonographic follow up, per consensus guidelines. Axillae: No enlarged lymph nodes. Chest Wall: Unremarkable. Bones: Unremarkable. Lungs and Pleura: No pneumothorax or pleural effusions. Underlying emphysematous changes are seen. There is mild consolidative change seen involving the right mid lung laterally, which is worse than on the prior CT. A right lower lobe pulmonary nodule is seen medially, measuring 13 x 8 mm. Over time, this is minimally increased in size Heart: Heart size is normal. No pericardial effusion. Mild coronary artery calcification is seen. Thoracic Vessels: No aortic aneurysm. Mediastinum and Cristel: No enlarged lymph nodes. Esophagus: No wall thickening. No hiatal hernia. Upper Abdomen: Visualized upper abdomen solid organs and bowel loops appear normal. IMPRESSION: No pulmonary embolus. There is irregular consolidative change seen involving the right mid lung laterally. Infection is suspected. - Please consider a follow-up in 6-8 weeks to monitor for resolution. There is a 13 mm right lower lobe pulmonary nodule seen, which is minimally increased in size over time. Although neoplasm is possible, a benign etiology is considered to be more likely. - Attention should be paid to this nodule on follow-up. Additional findings: Dictated by: Pio Lennon M.D. on 05/14/2024 at 15:14 Approved by: Pio Lennon M.D. on 05/14/2024 at 15:20
[2024-05-14] MEDS: levoFLOXacin 250 MG TABLET 750 MG PO (16:42)
== END 2024-05-14 16:57 | disposition home or self-care (01) ==
PROVIDERS: Emergency Provider Emergency Medicine; PCP Family Medicine
DX: J18.9 Pneumonia, unspecified organism (principal); R04.2 Hemoptysis; D64.9 Anemia, unspecified; J44.9 Chronic obstructive pulmonary disease, unspecified
CPT/HCPCS: 36415; 71045; 71275; 80053; 82550; 83880; 84484; 85025; 85379; 85610; 85730; 87070; 87077; 87205; 99285; Q9967

== ENCOUNTER → 2024-06-21 15:04 | Outpatient (CLI) | payer MEDICARE, MEDICAID, SELFPAY ==
[2022-11-18 19:35] VITALS: BMI 23.6
[2024-06-21 15:36] LABS: Add Manual Diff / Slide Review NO; Basophils Absolute Auto 0 /uL (0-100); Basophils Percent Auto 0.1 % (0-2); Eosinophils Absolute Auto 0 /uL (0-450); Eosinophils Percent Auto 0.1 % (2-4); Hematocrit 37.7 % (41-53); Hemoglobin 11.6 g/dL (13.5-17.5); Lymphocytes Absolute Auto 700 /uL (1100-4500); Lymphocytes Percent Auto 5.9 % (25-40); Mean Corpuscular HGB Conc 30.8 % (30-36); Mean Corpuscular Hemoglobin 25.4 PG (26-34); Mean Corpuscular Volume 82.5 fL (80-100); Monocytes Absolute Auto 200 /uL (0-900); Monocytes Percent Auto 1.7 % (3-14); Neutrophils Absolute Auto 10800 /uL (1500-7000); Neutrophils Percent Auto 92.2 % (50-75); Platelet Count 255 X10^3/uL (150-400); Red Blood Cell Count 4.57 X10^6/uL (4.5-5.9); Red Cell Distribution Width 15.6 % (11.6-14.8); White Blood Cell Count 11.7 X10^3/uL (4.5-11.0)
[2024-06-21 15:56] LABS: Alanine Aminotransferase 24 IU/L (<50); Albumin 3.6 g/dL (3.5-5.0); Albumin Globulin Ratio 1.2 (1.0-2.8); Alkaline Phosphatase 66 U/L (38-126); Aspartate Aminotransferase 30 IU/L (17-59); Bilirubin Total 0.2 mg/dL (0.2-1.3); Blood Urea Nitrogen 23 mg/dL (9-20); Calcium 9.6 mg/dL (8.4-10.2); Carbon Dioxide 39 mmol/L (22-32); Chloride 98 mmol/L (98-107); Estimated Glomerular Filt Rate > 60 mL/min (>60); Globulin 3.1 g/dL (1.7-4.1); Glucose 144 mg/dL (80-110); HEMOLYSIS < 15 (0-50); Potassium 4.6 mmol/L (3.4-5.1); Sodium 137 mmol/L (137-145); Total Protein 6.7 g/dL (6.3-8.2)
== END ==
PROVIDERS: Internal Medicine; PCP Family Medicine
DX: J44.1 Chronic obstructive pulmonary disease with (acute) exacerbation (principal); J96.11 Chronic respiratory failure with hypoxia; D64.9 Anemia, unspecified; R04.2 Hemoptysis; F17.200 Nicotine dependence, unspecified, uncomplicated
CPT/HCPCS: 36415; 80053; 85025

== ENCOUNTER 2024-08-10 09:03 | Emergency (ER) | payer MEDICARE, MEDICAID, SELFPAY ==
[2022-11-18 19:35] VITALS: BMI 23.6
[2024-08-10] VITALS (12 sets, daily range): BP systolic 128–161; BP diastolic 62–110; PULSE 88–103; RESP 16–34; TEMP 37.1; O2SAT 93–98; BMI 25.7
--- NOTE | 2024-08-10 09:10 | DI.RAD.S_ITS ---
PROCEDURE: XR CHEST 1V INDICATIONS: chest pain TECHNIQUE: One view of the chest was acquired. COMPARISON: [facility], CR, XR CHEST 1V, 05/14/2024, 12:43. FINDINGS: Surgical changes and devices: None. Lungs and pleura: Chronic scarring in right upper lung zone not significantly changed from prior study. No definite focal infiltrate. No pleural effusion or pneumothorax. Mediastinum: Mediastinal contours appear normal. Heart size is normal. Bones and chest wall: No suspicious bony lesions. Overlying soft tissues appear unremarkable. IMPRESSION: No acute cardiopulmonary pathology. No significant changes from previous study. Dictated by: Giuseppe Fonseca M.D. on 08/10/2024 at 9:27 Approved by: Giuseppe Fonseca M.D. on 08/10/2024 at 9:29
[2024-08-10 09:21] LABS: Add Manual Diff / Slide Review NO; Basophils Absolute Auto 0 /uL (0-100); Basophils Percent Auto 0.3 % (0-2); Eosinophils Absolute Auto 100 /uL (0-450); Eosinophils Percent Auto 1.1 % (2-4); Hematocrit 36.9 % (41-53); Hemoglobin 11.2 g/dL (13.5-17.5); Lymphocytes Absolute Auto 2100 /uL (1100-4500); Lymphocytes Percent Auto 35.5 % (25-40); Mean Corpuscular HGB Conc 30.4 % (30-36); Mean Corpuscular Hemoglobin 25.4 PG (26-34); Mean Corpuscular Volume 83.5 fL (80-100); Monocytes Absolute Auto 600 /uL (0-900); Neutrophils Absolute Auto 3100 /uL (1500-7000); Neutrophils Percent Auto 52.1 % (50-75); Platelet Count 239 X10^3/uL (150-400); Red Blood Cell Count 4.42 X10^6/uL (4.5-5.9); Red Cell Distribution Width 16.7 % (11.6-14.8); White Blood Cell Count 5.9 X10^3/uL (4.5-11.0)
[2024-08-10] MEDS: methylPREDNISolone 125 MG/2 ML VIAL IV (09:21)
[2024-08-10] MEDS: ALBUTEROL/IPRATROPIUM 3 ML AMPUL INH ×2 (09:24→12:02)
--- NOTE | 2024-08-10 09:25 | EKG_ITS ---
[address] [address] Test Date: 2024-08-10 Pat Name: Mak Rose Department: [facility] Room: Gender: Male Kineseologist: nima : 1960 Requested By: Order Number: [id number] Reading MD: Manuel Martinez Measurements Intervals Wheeler Rate: 89 P: 76 WA: 144 QRS: 69 QRSD: 90 T: 57 QT: 356 QTc: 433 Interpretive Statements Normal sinus rhythm Electronically Signed On 08-11-2024 20:04:23 PST by Manuel Martinez
[2024-08-10 09:26] LABS: Alanine Aminotransferase 18 IU/L (<50); Albumin 3.9 g/dL (3.5-5.0); Albumin Globulin Ratio 1.1 (1.0-2.8); Alkaline Phosphatase 58 U/L (38-126); Aspartate Aminotransferase 29 IU/L (17-59); BUN Creatinine Ratio 16.5 (6-22); Bilirubin Total 0.2 mg/dL (0.2-1.3); Blood Urea Nitrogen 19 mg/dL (9-20); Calcium 9.2 mg/dL (8.4-10.2); Chloride 97 mmol/L (98-107); Creatine Kinase 55 U/L (55-170); Estimated Glomerular Filt Rate > 60 mL/min (>60); Globulin 3.6 g/dL (1.7-4.1); Glucose 97 mg/dL (80-110); HEMOLYSIS < 15 (0-50); Lipase 519 U/L (23-300); Potassium 4.2 mmol/L (3.4-5.1); Sodium 142 mmol/L (137-145); Total Protein 7.5 g/dL (6.3-8.2)
[2024-08-10 09:32] LABS: Carbon Dioxide 37 mmol/L (22-32)
[2024-08-10 09:38] LABS: NT-proBNP (BNP-Adult 18+) 92 pg/mL (<125); Troponin I < 0.012 ng/mL (0.01-0.034)
--- NOTE | 2024-08-10 10:47 | PC.NURSE ---
Placed surgifoam and waterproof dressing pt's coccyx. Stage 1 pressure ulcer and pt c/o pain in area. Repositioned patient to left side and propped up on pillows.
--- NOTE | 2024-08-10 11:26 | ED_ITS ---
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 Reports that he has had a more productive cough over the last 1 month coughing up thick sputum nonbloody. Reports increased fatigue. Says that he has not moving as much as he used to he is requiring some bed sores. He is multiple people to help him at home but not as many as he needs. He has no interest in going to a long-term care facility. He denies any fever no chest pain feels like he is breathing better after treatment here in the ED and some Solu-Medrol. Related Data Home Medications Medication Instructions Recorded Confirmed acetaminophen 325 mg tablet 1 dose PO PRN PRN pain 12/29/18 07/25/24 ibuprofen 200 mg tablet 1 dose PO PRN PRN pain 12/29/18 07/25/24 magnesium hydroxide 400 mg/5 mL 1 dose PO PRN PRN Indigestion 12/29/18 07/25/24 oral suspension ascorbate calcium (vitamin C) 500 500 mg PO DAILY 08/06/23 07/25/24 mg tablet acetaminophen 500 mg tablet 500 mg PO BID pain/body ache 05/14/24 07/25/24 albuterol sulfate 2.5 mg/3 mL 2.5 mg continuous nebulization QID 05/14/24 07/25/24 (0.083 %) solution for nebulization PRN wheezing, sob, copd aluminum-mag hydroxide-simethicone See Rx Instructions .Route 05/14/24 07/25/24 400 mg-400 mg-40 mg/5 mL oral susp .COMPLEX PRN heartburn/gas aspirin 81 mg tablet,delayed 81 mg PO DAILY 05/14/24 07/25/24 release cetirizine 10 mg tablet 10 mg PO DAILY PRN allergy/asthma 05/14/24 07/25/24 clonazepam 0.5 mg tablet 0.5 mg PO BID PRN anxiety/sedation 05/14/24 07/25/24 guaifenesin 400 mg tablet 400 mg PO TID PRN thin/clear mucus 05/14/24 07/25/24 in lungs ipratropium 0.5 mg-albuterol 3 mg 3 ml inhalation BID PRN wheezing/ 05/14/24 07/25/24 (2.5 mg base)/3 mL nebulization SOB/ copd soln montelukast 10 mg tablet 10 mg PO BEDTIME 05/14/24 07/25/24 multivitamin with minerals-folic 1 tab PO DAILY 05/14/24 07/25/24 acid 0.4 mg tablet mupirocin 2 % topical ointment 1 applic topical BID PRN treat 05/14/24 07/25/24 infection/wound prn nystatin 100,000 unit/mL oral 5 ml PO QID PRN thrush 05/14/24 07/25/24 suspension ondansetron HCl 4 mg tablet 4 mg PO Q6-8H PRN Nausea/Vomiting 05/14/24 07/25/24 Previous Rx's Medication Instructions Recorded nitroglycerin 0.3 mg sublingual 0.3 mg sublingual Q5-15M PRN chest 01/23/21 tablet pain #20 tabs prednisone 10 mg tablet 10 mg PO DAILY #30 tabs 10/13/23 simvastatin 20 mg tablet 20 mg PO DAILY #90 tabs 01/26/24 ferrous gluconate 324 mg (38 mg 324 mg PO DAILY #90 tabs 03/28/24 iron) tablet benzonatate 100 mg capsule 100 mg PO BID-TID PRN Cough #270 05/19/24 caps Disabled Parking Permint #1 ea 07/01/24 albuterol sulfate 90 mcg/actuation 1 - 2 puff PO Q4H PRN for wheezing 07/08/24 aerosol inhaler (Ventolin HFA) #54 grams mometasone-formoterol HFA 200 2 puff PO BID #13 grams 07/22/24 mcg-5 mcg/actuation aerosol inhaler (Dulera) clarithromycin 500 mg tablet 500 mg PO BID #14 tabs 07/25/24 cefdinir 300 mg capsule 300 mg PO Q12H #14 caps 08/10/24 prednisone 10 mg tablet 10 mg PO DAILY #30 tabs 08/10/24 Allergies Allergy/AdvReac Type Severity Reaction Status Date / Time cinnamon [CINNAMON] Allergy Severe RESP Verified 07/25/24 14:39 PROBLEMS AND SWELLING Sulfa (Sulfonamide Allergy Severe anaphylacti Verified 07/25/24 14:39 Antibiotics) c [SULFA (SULFONAMIDE ANTIBIOTICS)] fluticasone [FLUTICASONE] Allergy Intermediate FEELS Verified 07/25/24 14:39 LIKE FIRE IN THE LUNGS trimethoprim [TRIMETHOPRIM] Allergy Unknown Patient Verified 07/25/24 14:39 can't remember codeine [CODEINE] AdvReac Intermediate violent Verified 07/25/24 14:39 doxycycline [DOXYCYCLINE] AdvReac Mild N/V Verified 07/25/24 14:39 dextromethorphan AdvReac Verified 07/25/24 14:39 fentanyl AdvReac Verified 07/25/24 14:39 Patient History Medical History History of tobacco abuse Fatigue Ventricular tachycardia (paroxysmal) Anemia Palpitations GERD with stricture HTN (hypertension) Insomnia (~2015) Hyperlipidemia (~2015) Anxiety (~2015) COPD (chronic obstructive pulmonary disease) (~2013) Asthma (Unknown) TIA (transient ischemic attack) (05/2014) Hematuria (~2014) Surgical History No pertinent past surgical history Family History Mother Age: 85 Hypertension Sister Age: 68 Cancer Social History household members: none Smoking Status: Current some day smoker Tobacco: How many years used: 47 quit status: considering quitting second hand exposure: No alcohol intake: former substance use type: does not use Smoking Status: Current some day smoker tobacco type: cigarettes alcohol intake frequency: holidays/special occasions only Exam Initial Vital Signs Initial Vital Signs: Vital Signs Temperature 98.7 F 08/10/24 09:08 Pulse Rate 94 H 08/10/24 09:08 Respiratory Rate 16 08/10/24 09:08 Blood Pressure 128/65 08/10/24 09:08 Pulse Oximetry 98 08/10/24 09:08 Oxygen Delivery Method Room Air 08/10/24 09:08 GENERAL: Alert chronically ill 63-year-old male and in no acute distress. HEENT: Head atraumatic,EOMI, pupils reactive, face symmetric, moist mucous membranes CARDIOVASCULAR: Regular rate and rhythm without murmurs, rubs or gallops. RESPIRATORY: Decreased breath sounds bilaterally but no significant respiratory distress no wheezing rales or rhonchi ABDOMEN: Soft, nontender. Normoactive bowel sounds all 4 quadrants. No guarding or rebound. EXTREMITIES: Normal range of motion, no clubbing or edema. Neurovascularly intact NEUROLOGICAL: Alert and oriented x4.Normal gait and speech. SKIN: Warm, dry, no laceration, no petechiae, no rashes or lesions. Course Orders Ordered: Discontinued Medications Acetaminophen (Acetaminophen 325 Mg Tablet) 975 mg PO NOW ONE Stop: 08/10/24 11:35 Last Admin: 08/10/24 11:52 Dose: 975 mg Documented By: MARY Albuterol/Ipratropium (Albuterol/Ipratropium 3 Ml Ampul) 3 ml INH NOW ONE Stop: 08/10/24 09:11 Last Admin: 08/10/24 09:24 Dose: 3 ml Documented By: HITESH Albuterol/Ipratropium (Albuterol/Ipratropium 3 Ml Ampul) 3 ml INH NOW ONE Stop: 08/10/24 11:35 Last Admin: 08/10/24 12:02 Dose: 3 ml Documented By: HITESH Methylprednisolone (Methylprednisolone 125 Mg/2 Ml Vial) 125 mg IV NOW ONE Stop: 08/10/24 09:11 Last Admin: 08/10/24 09:21 Dose: 125 mg Documented By: MARY Vital Signs Vital signs: Vital Signs - 8 hr 08/10/24 11:00 08/10/24 11:00 08/10/24 11:30 Pulse Rate 88 93 H Respiratory Rate 18 27 H Blood Pressure 141/63 H Pulse Oximetry 96 95 Oxygen Delivery Method Oxygen Flow Rate 08/10/24 11:30 08/10/24 12:00 08/10/24 12:01 Pulse Rate 95 H 95 H Respiratory Rate 18 19 Blood Pressure 136/62 Pulse Oximetry 95 95 Oxygen Delivery Method Oxygen Flow Rate 08/10/24 12:01 08/10/24 12:02 08/10/24 12:30 Pulse Rate 103 H 98 H Respiratory Rate 16 20 Blood Pressure 149/70 H Pulse Oximetry 93 95 Oxygen Delivery Method Nasal Cannula Nasal Cannula Oxygen Flow Rate 1.5 2 08/10/24 12:30 08/10/24 13:00 08/10/24 13:00 Pulse Rate 93 H Respiratory Rate 20 Blood Pressure 137/66 133/68 Pulse Oximetry 95 Oxygen Delivery Method Oxygen Flow Rate MDM - SOB/Dyspnea Lab Data 08/10/24 08:55 08/10/24 08:55 Labs: Lab Results 08/10/24 08/10/24 Range/Units 07:24 08:55 WBC 5.9 (4.5-11.0) X10^3/uL RBC 4.42 L (4.5-5.9) X10^6/uL Hgb 11.2 L (13.5-17.5) g/dL Hct 36.9 L (41-53) % MCV 83.5 (80-100) fL MCH 25.4 L (26-34) PG MCHC 30.4 (30-36) % RDW 16.7 H (11.6-14.8) % Plt Count 239 (150-400) X10^3/uL Neut % (Auto) 52.1 (50-75) % Lymph % (Auto) 35.5 (25-40) % Wright % (Auto) 11.0 (3-14) % Eos % (Auto) 1.1 L (2-4) % Baso % (Auto) 0.3 (0-2) % Neut # (Auto) 3100 (0255-1783) /uL Lymph # (Auto) 2100 (2475-2175) /uL Wright # (Auto) 600 (0-900) /uL Eos # (Auto) 100 (0-450) /uL Baso # (Auto) 0 (0-100) /uL Sodium 142 (137-145) mmol/L Potassium 4.2 (3.4-5.1) mmol/L Chloride 97 L (98-107) mmol/L Carbon Dioxide 37 H (22-32) mmol/L BUN 19 (9-20) mg/dL Creatinine 1.15 (0.66-1.25) mg/dL Estimated GFR > 60 (>60) mL/min BUN/Creatinine Ratio 16.5 (6-22) Glucose 97 (80-110) mg/dL Calcium 9.2 (8.4-10.2) mg/dL Total Bilirubin 0.2 (0.2-1.3) mg/dL AST 29 (17-59) IU/L ALT 18 (<50) IU/L Alkaline Phosphatase 58 (38-126) U/L Total Creatine Kinase 55 (55-170) U/L Troponin I < 0.012 (0.01-0.034) ng/mL NT-Pro-B Natriuret Pep 92 (<125) pg/mL Total Protein 7.5 (6.3-8.2) g/dL Albumin 3.9 (3.5-5.0) g/dL Globulin 3.6 (1.7-4.1) g/dL Albumin/Globulin Ratio 1.1 (1.0-2.8) Lipase 519 H (23-300) U/L SARS-CoV-2 (PCR) Negative (Negative) Influenza A (RT-PCR) Flu a negative (NEGATIVE) Influenza B (RT-PCR) Flu b negative (NEGATIVE) RSV (PCR) Negative (Negative) Imaging Data Chest x-ray: Radiologist's Impression: PROCEDURE: XR CHEST 1V INDICATIONS: chest pain TECHNIQUE: One view of the chest was acquired. COMPARISON: [facility], , XR CHEST 1V, 05/14/2024, 12:43. FINDINGS: Surgical changes and devices: None. Lungs and pleura: Chronic scarring in right upper lung zone not significantly changed from prior study. No definite focal infiltrate. No pleural effusion or pneumothorax. Mediastinum: Mediastinal contours appear normal. Heart size is normal. Bones and chest wall: No suspicious bony lesions. Overlying soft tissues appear unremarkable. IMPRESSION: No acute cardiopulmonary pathology. No significant changes from previous study. Dictated by: Giuseppe Fonseca M.D. on 08/10/2024 at 9:27 ECG Data Attestation: I personally reviewed and interpreted this ECG as follows: Prior ECG tracings: available for review Interpretation: Sinus rhythm rate 89 NE interval 144 QRS [address] changes MDM Narrative Medical decision making narrative: MDM CC: Shortness of breath weakness fatigue Complicating co-morbidities: End-stage COPD on chronic home O2, poor mobility, anemia Medical records reviewed: PCP chart reviewed from 07/25/2024 shows that he was placed on clarithromycin, azithromycin does not work very well for him and got joint pain with Levaquin Differential considered: Viral illness worsening chronic disease anemia Exam documented above, pertinent findings include: Alert chronically ill 63-year-old male no acute distress decreased breath sounds no evidence fluid overload Lab Test results independently reviewed as above. Pertinent findings: WBC 5.9 hemoglobin 11 0.2/36.9 previously 11.6/37.7 CMP sodium 142 potassium 0.2 chloride 87 bicarb 37 which is his baseline BUN 19 creatinine 1.1 Bilirubin liver enzymes within normal limits, lipase 519 Troponin negative, BNP 92 Independently reviewed EKG as above Sinus rhythm no ischemia Imaging studies independently reviewed: Chest x-ray shows no acute cardiopulmonary process Treatments: Solu-Medrol breathing treatment Re-evaluations: Breathing better really does not seem in any sort of acute distress Discussion: Patient is 63-year-old male with end-stage COPD chronic weakness history of anemia but not anemic today. Chest x-ray does not show any evidence of pneumonia. Blood work is overall reassuring. Patient does not want to be hospitalized at this time I do not see a need for admission. He has a many allergies to many medications it does not tolerate antibiotics, including sulfa doxycycline azithromycin he says does not work anymore fluoroquinolones cause bone pain. He does not have sepsis but we will try an outpatient cefdinir and tapering prednisone. Discharge Plan Departure Patient Disposition: Home Clinical Impression: COPD (chronic obstructive pulmonary disease) Instructions: Chronic Obstructive Pulmonary Disease Activity Restrictions/Additional Instructions: *You have been diagnosed with COPD *What to do: Please make sure your changing pillows and adjusting the pressure under your bottom. Also make sure someone looking at your bottom and dressing though sores *Continue to take medications as directed Cefdinir 300 mg twice a day for 7 days Prednisone 40 mg for 3 days 30 mg for 3 days 20 mg for 3 days and resume 10 mg daily *Follow up with your primary care provider in 2-3 days or call [phone] *Return to ER if you should have increasing shortness of breath weakness or any new, worsening or concerning symptoms Prescriptions: New prednisone 10 mg tablet 10 mg PO DAILY Qty: 30 0RF Rx Instructions: day 1-3: 40 mg once a day day 4-6: 30 mg once a day day 7-9: 20 mg once a day day 10-12: 10 mg once a day cefdinir 300 mg capsule 300 mg PO Q12H Qty: 14 0RF No Action simvastatin 20 mg tablet 20 mg PO DAILY Qty: 90 3RF benzonatate 100 mg capsule 100 mg PO BID-TID PRN (Reason: Cough) Qty: 270 0RF (DME) Disabled Parking Permint See Rx Instructions .ROUTE .MEDSUPPLY Qty: 1 0RF Rx Instructions: I find this patient to be medically disabled and qualified for Disabled Parking as indicated and signed on the Accompanying Disabled Parking Application for individuals. albuterol sulfate [Ventolin HFA] 90 mcg/actuation HFA aerosol inhaler 1 - 2 puff PO Q4H PRN (Reason: for wheezing) Qty: 54 1RF Dulera 200-5 mcg/actuation HFA aerosol inhaler 2 puff PO BID Qty: 13 5RF ascorbate calcium (vitamin C) 500 mg tablet 500 mg PO DAILY ferrous gluconate 324 mg (38 mg iron) tablet 324 mg PO DAILY Qty: 90 1RF clarithromycin 500 mg tablet 500 mg PO BID Qty: 14 0RF Rx Instructions: take twice a day for 7 days acetaminophen 325 mg Tablet 1 dose PO PRN PRN (Reason: pain) magnesium hydroxide 400 mg/5 mL Suspension 1 dose PO PRN PRN (Reason: Indigestion) Patient Comments: patient states uses often Mylanta ibuprofen 200 mg Tablet 1 dose PO PRN PRN (Reason: pain) nitroglycerin 0.3 mg tablet, sublingual 0.3 mg sublingual Q5-15M PRN (Reason: chest pain) Qty: 20 0RF Rx Instructions: do not exceed 3 doses per episode albuterol sulfate 2.5 mg /3 mL (0.083 %) Solution For Nebulization 2.5 mg continuous nebulization QID PRN (Reason: wheezing, sob, copd ) Rx Instructions: with ipratropium bromide solution for nebulization cetirizine 10 mg Tablet 10 mg PO DAILY PRN (Reason: allergy/asthma) Rx Instructions: in evening as needed ondansetron HCl [Zofran] 4 mg Tablet 4 mg PO Q6-8H PRN (Reason: Nausea/Vomiting) Rx Instructions: either PO tablet or ODT unsure which aspirin [Aspir-81] 81 mg Tablet,Delayed Release (Dr/Ec) 81 mg PO DAILY acetaminophen 500 mg Tablet 500 mg PO BID alum-mag hydroxide-simeth [Mylanta Double-Strength] 400-400-40 mg/5 mL Suspension See Rx Instructions .ROUTE .COMPLEX MDD 120 ml PRN (Reason: heartburn/gas) Rx Instructions: [employer] Brand Mylanta Gas -- 400 mg Aluminum Hydroxide, 400mg Magnesium Hydroxide, 40mg Simethicone/10 ml (Suspension) 10 to 20 ml PRN with/after meals & bedtime as needed for heartburn/gas relief by Mouth Max dose 120 ml total/24 hours guaifenesin 400 mg Tablet 400 mg PO TID PRN (Reason: thin/clear mucus in lungs) multivit with min-folic acid [Adult One Daily Multivitamin] 0.4 mg Tablet 1 tab PO DAILY nystatin 100,000 unit/mL suspension 5 ml PO QID PRN (Reason: thrush) ipratropium-albuterol 0.5 mg-3 mg(2.5 mg base)/3 mL solution for nebulization 3 ml INHALATION BID PRN (Reason: wheezing/ SOB/ copd) Rx Instructions: with albuterol solution for nebulization clonazepam 0.5 mg tablet 0.5 mg PO BID PRN (Reason: anxiety/sedation) mupirocin 2 % ointment 1 applic topical BID PRN (Reason: treat infection/wound prn) Rx Instructions: apply to bed sore montelukast 10 mg tablet 10 mg PO BEDTIME prednisone 10 mg tablet 10 mg PO DAILY Qty: 30 0RF Rx Instructions: day 1-3: 40 mg once a day day 4-6: 30 mg once a day currently 05/14/24 on 10 mg (1 tab) Q Day day 7-9: 20 mg once a day day 10-12: 10 mg once a day Referrals: Saqib Oliva, [Primary Care Provider] - Stand Alone Forms: Patient Portal/API/Survey
[2024-08-10] MEDS: ACETAMINOPHEN 325 MG TABLET 975 MG PO (11:52)
[2024-08-10 12:40] LABS: COVID-19 CEPHEID 4-PLEX PCR Negative (Negative); Influenza A - CEPHEID Flu A NEGATIVE (NEGATIVE); Influenza B - CEPHEID Flu B NEGATIVE (NEGATIVE); Respiratory Syncytial Virus Negative (Negative)
== END 2024-08-10 13:17 | disposition home or self-care (01) ==
PROVIDERS: Emergency Provider Emergency Medicine; PCP Family Medicine
DX: J44.9 Chronic obstructive pulmonary disease, unspecified (principal); Z99.81 Dependence on supplemental oxygen; F17.200 Nicotine dependence, unspecified, uncomplicated; D64.9 Anemia, unspecified; I10 Essential (primary) hypertension; E78.5 Hyperlipidemia, unspecified
CPT/HCPCS: 0241U; 71045; 80053; 82550; 83690; 83880; 84484; 85025; 93005; 94640; 96374; 99285; J2919

== ENCOUNTER 2024-08-18 04:51 | Inpatient (IN) | payer MEDICARE, MEDICAID, SELFPAY ==
[2022-11-18 19:35] VITALS: BMI 23.6
[2024-08-18] VITALS (22 sets, daily range): BP systolic 108–167; BP diastolic 57–77; PULSE 89–116; RESP 18–23; TEMP 36.4–36.9; O2SAT 93–97; BMI 25.9; BMI 24.9
--- NOTE | 2024-08-18 04:59 | EKG_ITS ---
[facility] [address] [place] [address] Test Date: 2024-08-18 Pat Name: Mak Rose Department: [facility] Room: Gender: Male [employer]: : 1960 Requested By: Order Number: [id number] Reading MD: Chau Hogan Measurements Intervals [place] Rate: 117 P: 78 MT: 186 QRS: 79 QRSD: 78 T: 67 QT: 446 QTc: 622 Interpretive Statements Critical Test Result: Long QTc Sinus tachycardia Right atrial enlargement ST depression, probably normal Prolonged QT Electronically Signed On 08-18-2024 9:10:44 PST by Chau Hogan
--- NOTE | 2024-08-18 05:04 | ED_ITS ---
HPI - Nausea/Vomiting/Diarrhea <Manuel Charis, - Last Filed: 08/18/24 06:27> General Chief complaint: Nausea/Vomiting/Diarrhea Stated complaint: NV, SOB Time Seen by Provider: 08/18/24 05:04 Source: EMS Mode of arrival: EMS History of Present Illness HPI Narrative: 63-year-old male with a history of COPD chronically on 2 L nasal cannula, comes into the ED via EMS for evaluation of abdominal pain nausea vomiting, states that this started at around 11:00 p.m. yesterday, states that it is intermittent in nature however at 1:00 a.m. he had worsening of his symptoms had an episode of nonbilious nonbloody emesis persistent pain diffusely to his abdomen therefore decided to come into the ED for further evaluation treatment. Denies any history of abdominal surgery, denies any other symptoms such as headache visual disturbances chest pain shortness of breath fever chills or any other GI/ symptoms at this time. Related Data Home Medications Medication Instructions Recorded Confirmed acetaminophen 325 mg tablet 1 dose PO PRN PRN pain 12/29/18 07/25/24 ibuprofen 200 mg tablet 1 dose PO PRN PRN pain 12/29/18 07/25/24 magnesium hydroxide 400 mg/5 mL 1 dose PO PRN PRN Indigestion 12/29/18 07/25/24 oral suspension ascorbate calcium (vitamin C) 500 500 mg PO DAILY 08/06/23 07/25/24 mg tablet acetaminophen 500 mg tablet 500 mg PO BID pain/body ache 05/14/24 07/25/24 albuterol sulfate 2.5 mg/3 mL 2.5 mg continuous nebulization QID 05/14/24 07/25/24 (0.083 %) solution for nebulization PRN wheezing, sob, copd aluminum-mag hydroxide-simethicone See Rx Instructions .Route 05/14/24 07/25/24 400 mg-400 mg-40 mg/5 mL oral susp .COMPLEX PRN heartburn/gas aspirin 81 mg tablet,delayed 81 mg PO DAILY 05/14/24 07/25/24 release cetirizine 10 mg tablet 10 mg PO DAILY PRN allergy/asthma 05/14/24 07/25/24 guaifenesin 400 mg tablet 400 mg PO TID PRN thin/clear mucus 05/14/24 07/25/24 in lungs ipratropium 0.5 mg-albuterol 3 mg 3 ml inhalation BID PRN wheezing/ 05/14/24 07/25/24 (2.5 mg base)/3 mL nebulization SOB/ copd soln montelukast 10 mg tablet 10 mg PO BEDTIME 05/14/24 07/25/24 multivitamin with minerals-folic 1 tab PO DAILY 05/14/24 07/25/24 acid 0.4 mg tablet mupirocin 2 % topical ointment 1 applic topical BID PRN treat 05/14/24 07/25/24 infection/wound prn nystatin 100,000 unit/mL oral 5 ml PO QID PRN thrush 05/14/24 07/25/24 suspension ondansetron HCl 4 mg tablet 4 mg PO Q6-8H PRN Nausea/Vomiting 05/14/24 07/25/24 Previous Rx's Medication Instructions Recorded nitroglycerin 0.3 mg sublingual 0.3 mg sublingual Q5-15M PRN chest 01/23/21 tablet pain #20 tabs prednisone 10 mg tablet 10 mg PO DAILY #30 tabs 10/13/23 simvastatin 20 mg tablet 20 mg PO DAILY #90 tabs 01/26/24 ferrous gluconate 324 mg (38 mg 324 mg PO DAILY #90 tabs 03/28/24 iron) tablet benzonatate 100 mg capsule 100 mg PO BID-TID PRN Cough #270 05/19/24 caps Disabled Parking Permint #1 ea 07/01/24 albuterol sulfate 90 mcg/actuation 1 - 2 puff PO Q4H PRN for wheezing 07/08/24 aerosol inhaler (Ventolin HFA) #54 grams mometasone-formoterol HFA 200 2 puff PO BID #13 grams 07/22/24 mcg-5 mcg/actuation aerosol inhaler (Dulera) clarithromycin 500 mg tablet 500 mg PO BID #14 tabs 07/25/24 cefdinir 300 mg capsule 300 mg PO Q12H #14 caps 08/10/24 prednisone 10 mg tablet 10 mg PO DAILY #30 tabs 08/10/24 clonazepam 0.5 mg tablet 0.5 mg PO TID #90 tabs 08/17/24 Allergies Allergy/AdvReac Type Severity Reaction Status Date / Time cinnamon [CINNAMON] Allergy Severe RESP Verified 07/25/24 14:39 PROBLEMS AND SWELLING Sulfa (Sulfonamide Allergy Severe anaphylacti Verified 07/25/24 14:39 Antibiotics) c [SULFA (SULFONAMIDE ANTIBIOTICS)] fluticasone [FLUTICASONE] Allergy Intermediate FEELS Verified 07/25/24 14:39 LIKE FIRE IN THE LUNGS trimethoprim [TRIMETHOPRIM] Allergy Unknown Patient Verified 07/25/24 14:39 can't remember codeine [CODEINE] AdvReac Intermediate violent Verified 07/25/24 14:39 doxycycline [DOXYCYCLINE] AdvReac Mild N/V Verified 07/25/24 14:39 dextromethorphan AdvReac Verified 07/25/24 14:39 fentanyl AdvReac Verified 07/25/24 14:39 Review of Systems <Manuel Vizcaino DO - Last Filed: 08/18/24 06:27> Review of Systems Narrative: General: Denies fever, chills, weight loss HEENT: Denies headache, eye drainage, eye irritation, head trauma, sore throat, voice change Cardiovascular: Denies any chest pain, palpitations, shortness of breath, tachycardia Respiratory: Denies any shortness of breath, cough, wheeze, stridor GI/: Positive abdominal pain, nausea, vomiting, denies diarrhea, bright red blood per rectum, melanotic stools, urinary frequency, urinary retention, dysuria, hematuria MSK: Denies any joint pain, muscle pains, swelling Skin: Denies any rashes, lesions, discoloration Neuro: Denies any headache, lightheadedness, dizziness, fainting, weakness Psych: Denies SI/HI Patient History <Manuel Vizcaino DO - Last Filed: 08/18/24 06:27> Medical History History of tobacco abuse Fatigue Ventricular tachycardia (paroxysmal) Anemia Palpitations GERD with stricture HTN (hypertension) Insomnia (~2015) Hyperlipidemia (~2015) Anxiety (~2015) COPD (chronic obstructive pulmonary disease) (~2013) Asthma (Unknown) TIA (transient ischemic attack) (05/2014) Hematuria (~2014) Surgical History No pertinent past surgical history Family History Mother Age: 85 Hypertension Sister Age: 68 Cancer Social History household members: none Smoking Status: Current some day smoker Tobacco: How many years used: 47 quit status: considering quitting second hand exposure: No alcohol intake: former substance use type: does not use Smoking Status: Current some day smoker tobacco type: cigarettes alcohol intake frequency: holidays/special occasions only Exam <Manuel Vizcaino DO - Last Filed: 08/18/24 06:27> Narrative Exam Narrative: General: Cooperative, comfortable, well-developed, not in acute distress HEENT: Normocephalic, atraumatic, PERRLA, normal sclera, eyelids normal, Neck: Active full range of motion, atraumatic Chest: Normal to inspection, negative crepitus, no overlying erythema ecchymosis Respiratory: Patient on 2 L nasal cannula which is his baseline, not in acute respiratory distress, clear to auscultation bilaterally negative cough, wheeze, tachypnea, rhonchi, rales Cardiology: Regular rate rhythm negative gallop, murmur, rubs GI/: Normal to inspection, soft, nonrigid, mild diffuse tenderness to palpation, exam deferred MSK: Full range of active range of motion of all 4 extremities, atraumatic Skin: No rashes lesions noted Neuro: Alert awake oriented x3, moves all 4 extremities spontaneously, cranial nerves intact, able to answer all questions appropriately follows commands appropriately Psych: Cooperative, negative suicidal or homicidal ideations Initial Vital Signs Initial Vital Signs: Vital Signs Temperature 98.5 F 08/18/24 04:53 Pulse Rate 116 H 08/18/24 04:53 Respiratory Rate 18 08/18/24 04:53 Blood Pressure 127/58 L 08/18/24 04:53 Pulse Oximetry 96 08/18/24 04:53 Oxygen Delivery Method Nasal Cannula 08/18/24 04:53 Oxygen Flow Rate 2 08/18/24 04:53 <Vaishnavi Hinson DO - Last Filed: 08/18/24 11:25> Initial Vital Signs Initial Vital Signs: Vital Signs Temperature 98.5 F 08/18/24 04:53 Pulse Rate 116 H 08/18/24 04:53 Respiratory Rate 18 08/18/24 04:53 Blood Pressure 127/58 L 08/18/24 04:53 Pulse Oximetry 96 08/18/24 04:53 Oxygen Delivery Method Nasal Cannula 08/18/24 04:53 Oxygen Flow Rate 2 08/18/24 04:53 Course <Manuel Vizcaino, DO - Last Filed: 08/18/24 06:27> Orders Ordered: ED Orders 08/18/24 04:55 Complete Blood Count AUTO DIFF Stat Comprehensive Metabolic Panel Stat Lactate (Lactic Acid) Stat Lipase Stat MAG [Magnesium] Stat 08/18/24 04:59 EKG-12 Lead Stat 08/18/24 05:09 CT abdomen pelvis w con Stat 08/18/24 06:14 EKG-12 Lead Stat 08/18/24 06:21 US abdomen limited Stat Famotidine (Famotidine 20 Mg/2 Ml Vial) 20 mg IV NOW ROBERT Last Admin: 08/18/24 06:01 Dose: 20 mg Documented By: MR Discontinued Medications Sodium Chloride (Normal Saline 0.9%) 1,000 mls @ 1,000 mls/hr IV BOLUS ONE Stop: 08/18/24 06:36 Last Infusion: 08/18/24 06:57 Dose: Infused Documented By: Admin: 08/18/24 05:57 Dose: 1,000 mls/hr Documented By: Ketorolac Tromethamine (Ketorolac 30 Mg/Ml Vial) 15 mg IV NOW ONE Stop: 08/18/24 05:12 Last Admin: 08/18/24 05:59 Dose: 15 mg Documented By: Ondansetron HCl (Ondansetron 4 Mg/2 Ml Inj) 4 mg IV NOW ONE Stop: 08/18/24 05:10 Last Admin: 08/18/24 05:58 Dose: 4 mg Documented By: MR Ondansetron HCl (Ondansetron 4 Mg/2 Ml Inj) 4 mg IV NOW ONE Stop: 08/18/24 11:24 Vital Signs Vital signs: Vital Signs - 8 hr 08/18/24 04:53 08/18/24 04:54 08/18/24 04:54 Temperature 98.5 F Pulse Rate 116 H 109 H Respiratory Rate 18 Blood Pressure 127/58 L 127/58 L Pulse Oximetry 96 95 Oxygen Delivery Method Nasal Cannula Oxygen Flow Rate 2 08/18/24 05:00 08/18/24 05:00 08/18/24 05:30 Temperature Pulse Rate 113 H 115 H Respiratory Rate Blood Pressure 108/57 L Pulse Oximetry 96 95 Oxygen Delivery Method Oxygen Flow Rate 08/18/24 05:30 08/18/24 05:51 08/18/24 05:51 Temperature Pulse Rate 107 H Respiratory Rate Blood Pressure 120/64 125/64 Pulse Oximetry 95 Oxygen Delivery Method Oxygen Flow Rate 08/18/24 06:00 08/18/24 06:00 08/18/24 06:30 Temperature Pulse Rate 108 H 101 H Respiratory Rate 18 Blood Pressure 129/68 Pulse Oximetry 97 96 Oxygen Delivery Method Oxygen Flow Rate 08/18/24 06:31 08/18/24 06:31 08/18/24 07:00 Temperature Pulse Rate 102 H Respiratory Rate Blood Pressure 157/66 H 149/69 H Pulse Oximetry 96 Oxygen Delivery Method Oxygen Flow Rate 08/18/24 07:00 08/18/24 07:30 08/18/24 07:30 Temperature Pulse Rate 101 H 100 H Respiratory Rate Blood Pressure 158/77 H Pulse Oximetry 96 97 Oxygen Delivery Method Oxygen Flow Rate 08/18/24 08:00 08/18/24 08:00 08/18/24 08:30 Temperature Pulse Rate 103 H Respiratory Rate Blood Pressure 150/74 H 164/72 H Pulse Oximetry 95 Oxygen Delivery Method Oxygen Flow Rate 08/18/24 08:30 08/18/24 09:00 08/18/24 09:01 Temperature Pulse Rate 98 H 98 H Respiratory Rate 18 Blood Pressure 167/72 H Pulse Oximetry 96 96 Oxygen Delivery Method Nasal Cannula Oxygen Flow Rate 2 08/18/24 09:30 08/18/24 09:30 08/18/24 10:00 Temperature Pulse Rate 100 H Respiratory Rate 18 Blood Pressure Pulse Oximetry 95 Oxygen Delivery Method Nasal Cannula Oxygen Flow Rate 2 08/18/24 10:01 08/18/24 10:04 08/18/24 10:04 Temperature Pulse Rate 100 H Respiratory Rate 18 Blood Pressure 124/58 L 124/58 L Pulse Oximetry 95 Oxygen Delivery Method Nasal Cannula Oxygen Flow Rate 2 08/18/24 10:30 08/18/24 10:30 08/18/24 11:00 Temperature Pulse Rate 89 94 H Respiratory Rate 18 Blood Pressure 128/60 Pulse Oximetry 94 93 Oxygen Delivery Method Nasal Cannula Oxygen Flow Rate 2 08/18/24 11:00 Temperature Pulse Rate Respiratory Rate Blood Pressure 133/63 Pulse Oximetry Oxygen Delivery Method Oxygen Flow Rate <Vaishnavi Hinson, - Last Filed: 08/18/24 11:25> Orders Ordered: ED Orders 08/18/24 04:55 Complete Blood Count AUTO DIFF Stat Comprehensive Metabolic Panel Stat Lactate (Lactic Acid) Stat Lipase Stat MAG [Magnesium] Stat 08/18/24 04:59 EKG-12 Lead Stat 08/18/24 05:09 CT abdomen pelvis w con Stat 08/18/24 06:14 EKG-12 Lead Stat 08/18/24 06:21 US abdomen limited Stat Famotidine (Famotidine 20 Mg/2 Ml Vial) 20 mg IV NOW ROBERT Last Admin: 08/18/24 06:01 Dose: 20 mg Documented By: MR Discontinued Medications Sodium Chloride (Normal Saline 0.9%) 1,000 mls @ 1,000 mls/hr IV BOLUS ONE Stop: 08/18/24 06:36 Last Infusion: 08/18/24 06:57 Dose: Infused Documented By: Admin: 08/18/24 05:57 Dose: 1,000 mls/hr Documented By: Ketorolac Tromethamine (Ketorolac 30 Mg/Ml Vial) 15 mg IV NOW ONE Stop: 08/18/24 05:12 Last Admin: 08/18/24 05:59 Dose: 15 mg Documented By: Ondansetron HCl (Ondansetron 4 Mg/2 Ml Inj) 4 mg IV NOW ONE Stop: 08/18/24 05:10 Last Admin: 08/18/24 05:58 Dose: 4 mg Documented By: Ondansetron HCl (Ondansetron 4 Mg/2 Ml Inj) 4 mg IV NOW ONE Stop: 08/18/24 11:24 Vital Signs Vital signs: Vital Signs - 8 hr 08/18/24 04:53 08/18/24 04:54 08/18/24 04:54 Temperature 98.5 F Pulse Rate 116 H 109 H Respiratory Rate 18 Blood Pressure 127/58 L 127/58 L Pulse Oximetry 96 95 Oxygen Delivery Method Nasal Cannula Oxygen Flow Rate 2 08/18/24 05:00 08/18/24 05:00 08/18/24 05:30 Temperature Pulse Rate 113 H 115 H Respiratory Rate Blood Pressure 108/57 L Pulse Oximetry 96 95 Oxygen Delivery Method Oxygen Flow Rate 08/18/24 05:30 08/18/24 05:51 08/18/24 05:51 Temperature Pulse Rate 107 H Respiratory Rate Blood Pressure 120/64 125/64 Pulse Oximetry 95 Oxygen Delivery Method Oxygen Flow Rate 08/18/24 06:00 08/18/24 06:00 08/18/24 06:30 Temperature Pulse Rate 108 H 101 H Respiratory Rate 18 Blood Pressure 129/68 Pulse Oximetry 97 96 Oxygen Delivery Method Oxygen Flow Rate 08/18/24 06:31 08/18/24 06:31 08/18/24 07:00 Temperature Pulse Rate 102 H Respiratory Rate Blood Pressure 157/66 H 149/69 H Pulse Oximetry 96 Oxygen Delivery Method Oxygen Flow Rate 08/18/24 07:00 08/18/24 07:30 08/18/24 07:30 Temperature Pulse Rate 101 H 100 H Respiratory Rate Blood Pressure 158/77 H Pulse Oximetry 96 97 Oxygen Delivery Method Oxygen Flow Rate 08/18/24 08:00 08/18/24 08:00 08/18/24 08:30 Temperature Pulse Rate 103 H Respiratory Rate Blood Pressure 150/74 H 164/72 H Pulse Oximetry 95 Oxygen Delivery Method Oxygen Flow Rate 08/18/24 08:30 08/18/24 09:00 08/18/24 09:01 Temperature Pulse Rate 98 H 98 H Respiratory Rate 18 Blood Pressure 167/72 H Pulse Oximetry 96 96 Oxygen Delivery Method Nasal Cannula Oxygen Flow Rate 2 08/18/24 09:30 08/18/24 09:30 08/18/24 10:00 Temperature Pulse Rate 100 H Respiratory Rate 18 Blood Pressure Pulse Oximetry 95 Oxygen Delivery Method Nasal Cannula Oxygen Flow Rate 2 08/18/24 10:01 08/18/24 10:04 08/18/24 10:04 Temperature Pulse Rate 100 H Respiratory Rate 18 Blood Pressure 124/58 L 124/58 L Pulse Oximetry 95 Oxygen Delivery Method Nasal Cannula Oxygen Flow Rate 2 08/18/24 10:30 08/18/24 10:30 08/18/24 11:00 Temperature Pulse Rate 89 94 H Respiratory Rate 18 Blood Pressure 128/60 Pulse Oximetry 94 93 Oxygen Delivery Method Nasal Cannula Oxygen Flow Rate 2 08/18/24 11:00 Temperature Pulse Rate Respiratory Rate Blood Pressure 133/63 Pulse Oximetry Oxygen Delivery Method Oxygen Flow Rate MDM - Nausea/Vomiting/Diarrhea <Manuel Charis, - Last Filed: 08/18/24 06:27> Differential Diagnosis Differential diagnosis: Likely other (Small-bowel obstruction, diverticulitis, gastroenteritis, electrolyte abnormality, urinary tract infection) Lab Data 08/18/24 04:55 08/18/24 04:55 Labs: Lab Results 08/18/24 Range/Units 04:55 WBC 24.1 H (4.5-11.0) X10^3/uL RBC 4.93 (4.5-5.9) X10^6/uL Hgb 12.4 L (13.5-17.5) g/dL Hct 40.4 L (41-53) % MCV 81.9 (80-100) fL MCH 25.2 L (26-34) PG MCHC 30.8 (30-36) % RDW 17.4 H (11.6-14.8) % Plt Count 273 (150-400) X10^3/uL Neut % (Auto) 90.0 H (50-75) % Lymph % (Auto) 4.7 L (25-40) % [place] % (Auto) 4.8 (3-14) % Eos % (Auto) 0.3 L (2-4) % Baso % (Auto) 0.2 (0-2) % Neut # (Auto) 46481 H (5013-0150) /uL Lymph # (Auto) 1100 (8506-3522) /uL [place] # (Auto) 1100 H (0-900) /uL Eos # (Auto) 100 (0-450) /uL Baso # (Auto) 0 (0-100) /uL Sodium 139 (137-145) mmol/L Potassium 4.0 (3.4-5.1) mmol/L Chloride 97 L (98-107) mmol/L Carbon Dioxide 39 H (22-32) mmol/L BUN 29 H (9-20) mg/dL Creatinine 1.04 (0.66-1.25) mg/dL Estimated GFR > 60 (>60) mL/min BUN/Creatinine Ratio 27.9 H (6-22) Glucose 130 H (80-110) mg/dL Lactate 1.7 (0.7-2.1) mmol/L Calcium 8.8 (8.4-10.2) mg/dL Magnesium 1.9 (1.6-2.3) mg/dL Total Bilirubin 0.5 (0.2-1.3) mg/dL AST 31 (17-59) IU/L ALT 24 (<50) IU/L Alkaline Phosphatase 65 (38-126) U/L Total Protein 7.3 (6.3-8.2) g/dL Albumin 4.0 (3.5-5.0) g/dL Globulin 3.3 (1.7-4.1) g/dL Albumin/Globulin Ratio 1.2 (1.0-2.8) Lipase 2103 H D (23-300) U/L Imaging Data CT scan - abdomen/pelvis: Radiologist's Impression: Preliminary read showing a distended gallbladder without radiopaque gallstones, commanding ultrasound, mildly dilated left upper quadrant jejunal loops without transition point 12 mm wall thickening of the jejunal loops at this level without surrounding fat stranding, jejunitis can not be excluded ECG Data Interpretation: Initial EKG sinus tachycardia 117 beats per minute, significant amount artifact noted in the anterior leads however EKG noted to be normal axis no STEMI Repeat EKG interpreted by ED physician sinus tachycardia 106 beats per minute QTC 430, normal axis occasional PAC noted, nonspecific ST changes no STEMI MDM Narrative Medical decision making narrative: 63-year-old male with a history of COPD chronically on 2 L nasal cannula comes into the ED from home via EMS for evaluation of abdominal pain nausea vomiting started early last night. Patient had lab work imaging performed here in the emergency department, patient's CBC remarkable for a leukocytosis of 24.1, Chem panel unremarkable, lipase significantly elevated at 2103, bilirubin AST ALT alk-phos within normal limits. Patient had CT scan performed here which did show distended gallbladder, ultrasound ordered to rule out acute cholecystitis given abdominal pain and leukocytosis. CT scan preliminary read showing possible jejunitis without obstruction abscess or fistula. Patient normal lactate. 0700: Patient was signed out to oncoming provider, patient pending right upper quadrant ultrasound to evaluate gallbladder distention noted on CT scan. Patient currently with acute pancreatitis final disposition pending ultrasound and re-evaluation/p.o. challenge for admission versus discharge. <Vaishnavi Hinson, DO - Last Filed: 08/18/24 11:25> Lab Data Labs: Lab Results 08/18/24 Range/Units 04:55 WBC 24.1 H (4.5-11.0) X10^3/uL RBC 4.93 (4.5-5.9) X10^6/uL Hgb 12.4 L (13.5-17.5) g/dL Hct 40.4 L (41-53) % MCV 81.9 (80-100) fL MCH 25.2 L (26-34) PG MCHC 30.8 (30-36) % RDW 17.4 H (11.6-14.8) % Plt Count 273 (150-400) X10^3/uL Neut % (Auto) 90.0 H (50-75) % Lymph % (Auto) 4.7 L (25-40) % [place] % (Auto) 4.8 (3-14) % Eos % (Auto) 0.3 L (2-4) % Baso % (Auto) 0.2 (0-2) % Neut # (Auto) 13692 H (4150-9828) /uL Lymph # (Auto) 1100 (3492-6477) /uL [place] # (Auto) 1100 H (0-900) /uL Eos # (Auto) 100 (0-450) /uL Baso # (Auto) 0 (0-100) /uL Sodium 139 (137-145) mmol/L Potassium 4.0 (3.4-5.1) mmol/L Chloride 97 L (98-107) mmol/L Carbon Dioxide 39 H (22-32) mmol/L BUN 29 H (9-20) mg/dL Creatinine 1.04 (0.66-1.25) mg/dL Estimated GFR > 60 (>60) mL/min BUN/Creatinine Ratio 27.9 H (6-22) Glucose 130 H (80-110) mg/dL Lactate 1.7 (0.7-2.1) mmol/L Calcium 8.8 (8.4-10.2) mg/dL Magnesium 1.9 (1.6-2.3) mg/dL Total Bilirubin 0.5 (0.2-1.3) mg/dL AST 31 (17-59) IU/L ALT 24 (<50) IU/L Alkaline Phosphatase 65 (38-126) U/L Total Protein 7.3 (6.3-8.2) g/dL Albumin 4.0 (3.5-5.0) g/dL Globulin 3.3 (1.7-4.1) g/dL Albumin/Globulin Ratio 1.2 (1.0-2.8) Lipase 2103 H D (23-300) U/L MDM Narrative Medical decision making narrative: 63-year-old male with a history of COPD chronically on 2 L nasal cannula comes into the ED from home via EMS for evaluation of abdominal pain nausea vomiting started early last night. Patient had lab work imaging performed here in the emergency department, patient's CBC remarkable for a leukocytosis of 24.1, Chem panel unremarkable, lipase significantly elevated at 2103, bilirubin AST ALT alk-phos within normal limits. Patient had CT scan performed here which did show distended gallbladder, ultrasound ordered to rule out acute cholecystitis given abdominal pain and leukocytosis. CT scan preliminary read showing possible jejunitis without obstruction abscess or fistula. Patient normal lactate. 0700: Patient was signed out to oncoming provider, patient pending right upper quadrant ultrasound to evaluate gallbladder distention noted on CT scan. Patient currently with acute pancreatitis final disposition pending ultrasound and re-evaluation/p.o. challenge for admission versus discharge. 0813 08/18/24 Dr. Hinson: 63-year-old male history of COPD chronically on 2 L nasal cannula, dyslipidemia presents with nausea vomiting abdominal pain was found to have leukocytosis of 24 on elevated lipase of 08/01/2002, LFTs including bilirubin AST ALT and alk-phos were within normal limits CT showed distended gallbladder and possible jejunitis without obstruction, abscess or fistula. Patient had normal lactate. Patient has had a slight tachycardia. Patient has received Pepcid, Zofran, Toradol and a L bolus of normal saline. Ultrasound was ordered and was pending at sign-out. This shows mild dilation of pancreatic duct level pancreatic body measuring 5 mm in width liver is normal in size no intrahepatic bile ductal dilation common duct is 6.4 mm distended gallbladder with at least mild sludge no gallstones no sonographic Hernandes's sign they portal vein antegrade pulsatile main portal venous waveform incidental or secondary underlying hepatic cardiac disease clinical correlation recommended. No evidence of acute cholecystitis. Reviewed findings with the patient from prelim night report. Regarding patient's leukocytosis of 24 he does note he was recently been on prednisone in his actively taking still could be a component of his leukocytosis. Patient is feeling much improved states pain has resolved. Has not had pancreatitis in the past denies regular alcohol use. He has history COPD has used his home inhaler little this morning. Was given oral challenge here in the department with water followed by applesauce. Patient had some dry heaves and increased pain. [address] Hogan hospitalist, accepts for observation for pancreatitis does have pancreas divisum some but no other major changes on his imaging other than a little bit of thickening of the jejunum but no stranding. White count of 24 but patient has been on prednisone. Patient had oral challenge here with a attempt to go home but had some dry heaves and increased pain. Chronic COPD 2 L home O2. Discharge Plan Departure Patient Disposition: Admitted as Observation Clinical Impression: Acute pancreatitis Admit Date/Time: 08/18/24 11:12 Admit Provider: Chau Hogan
--- NOTE | 2024-08-18 05:09 | DI.CT.S_ITS ---
PROCEDURE: CT ABDOMEN PELVIS W CON INDICATIONS: diffuse abd pain TECHNIQUE: After the administration of intravenous contrast, axial sections acquired from the lung bases to the pubic symphysis. Coronal and sagittal reformats were performed. For radiation dose reduction, the following was used: automated exposure control, adjustment of mA and/or kV according to patient size. COMPARISON: [facility], US, US ABDOMEN LIMITED, 08/18/2024, 6:33. [facility], CT, CT ABDOMEN PELVIS W CON, 09/13/2023, 10:57. FINDINGS: Image quality: Diagnostic. Lower Chest: Confluent centrilobular emphysema. ABDOMEN: Liver: No solid mass. Central subcentimeter hypoattenuating lesion, likely a small cyst, measuring 8 millimeter . Gallbladder: Gallbladder is distended, without stones or wall thickening. Biliary ducts: No biliary dilation. Pancreas: No ductal dilation. Pancreatic divisum. Spleen: Size is within normal limits. Adrenal Glands: No adrenal nodules. Kidneys and Ureters: No hydronephrosis. No solid mass. No complex renal cystic lesion which requires follow up. 8 millimeter nonobstructing stone in the inferior calyx. Stomach and Bowel: Wall thickening of multiple loops of jejunum . Normal appendix. No distended loops of bowel. Colonic diverticulosis without evidence of diverticulitis. Peritoneum: No abnormal intraperitoneal fluid. No free air. Ventral Wall: No significant ventral hernia. Small umbilical hernia containing fat. Abdominal Nodes: No retroperitoneal or mesenteric adenopathy by size criteria. Vessels: Aorta and inferior vena cava are normal in size. PELVIS: Pelvic Organs: Unremarkable. Bladder: No bladder wall thickening, accounting for underdistention. Pelvic Nodes: No enlarged lymph nodes. Miscellaneous: No inguinal hernias are seen. Bones: No aggressive osseous abnormality. IMPRESSION: Suspected enteritis of the jejunum, with wall thickening. Gallbladder hydrops. Same day gallbladder ultrasound demonstrates no acute abnormality. Colonic diverticulosis without evidence of diverticulitis. Pancreatic divisum. Agree with preliminary report. Dictated by: Josias Romo M.D. on 08/18/2024 at 8:21 Approved by: Josias Romo M.D. on 08/18/2024 at 8:26
[2024-08-18 05:16] LABS: Add Manual Diff / Slide Review NO; Basophils Absolute Auto 0 /uL (0-100); Basophils Percent Auto 0.2 % (0-2); Eosinophils Absolute Auto 100 /uL (0-450); Eosinophils Percent Auto 0.3 % (2-4); Hematocrit 40.4 % (41-53); Hemoglobin 12.4 g/dL (13.5-17.5); Lymphocytes Absolute Auto 1100 /uL (1100-4500); Lymphocytes Percent Auto 4.7 % (25-40); Mean Corpuscular HGB Conc 30.8 % (30-36); Mean Corpuscular Hemoglobin 25.2 PG (26-34); Mean Corpuscular Volume 81.9 fL (80-100); Monocytes Absolute Auto 1100 /uL (0-900); Monocytes Percent Auto 4.8 % (3-14); Neutrophils Absolute Auto 21700 /uL (1500-7000); Platelet Count 273 X10^3/uL (150-400); Red Blood Cell Count 4.93 X10^6/uL (4.5-5.9); Red Cell Distribution Width 17.4 % (11.6-14.8); White Blood Cell Count 24.1 X10^3/uL (4.5-11.0)
[2024-08-18 05:23] LABS: Lactate (Lactic Acid) 1.7 mmol/L (0.7-2.1)
[2024-08-18 05:24] LABS: Alanine Aminotransferase 24 IU/L (<50); Albumin Globulin Ratio 1.2 (1.0-2.8); Alkaline Phosphatase 65 U/L (38-126); Aspartate Aminotransferase 31 IU/L (17-59); BUN Creatinine Ratio 27.9 (6-22); Bilirubin Total 0.5 mg/dL (0.2-1.3); Blood Urea Nitrogen 29 mg/dL (9-20); Calcium 8.8 mg/dL (8.4-10.2); Carbon Dioxide 39 mmol/L (22-32); Chloride 97 mmol/L (98-107); Estimated Glomerular Filt Rate > 60 mL/min (>60); Globulin 3.3 g/dL (1.7-4.1); Glucose 130 mg/dL (80-110); HEMOLYSIS < 15 (0-50); Sodium 139 mmol/L (137-145); Total Protein 7.3 g/dL (6.3-8.2)
[2024-08-18 05:25] LABS: Magnesium 1.9 mg/dL (1.6-2.3)
[2024-08-18 05:31] LABS: Lipase 2103 U/L (23-300)
[2024-08-18] MEDS: SODIUM CHLORIDE 0.9% 1,000 ML 1000 ML IV (05:57)
[2024-08-18] MEDS: ONDANSETRON 4 MG/2 ML INJ IV (05:58)
[2024-08-18] MEDS: KETOROLAC 30 MG/ML VIAL 15 MG IV (05:59)
[2024-08-18] MEDS: FAMOTIDINE 20 MG/2 ML VIAL IV (06:01)
--- NOTE | 2024-08-18 06:14 | EKG_ITS ---
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
--- NOTE | 2024-08-18 06:21 | DI.US.S_ITS ---
PROCEDURE: US ABDOMEN LIMITED INDICATIONS: Distended gallbladder on CT scan, pt w/ acute pancreatits TECHNIQUE: Real-time scanning was performed of the abdominal and retroperitoneal organs, with image documentation. COMPARISON: None. FINDINGS: Liver: Liver is normal in size and homogeneous in echotexture. Gallbladder: No gallstones. No wall thickening. No pericholecystic edema. Negative sonographic Hernandes's sign. Gallbladder sludge is present. Biliary ducts: Intrahepatic bile ducts are non-dilated. Extrahepatic bile duct caliber measures 6 mm. Normal is 6-7 mm or less in diameter, or 10 mm or less post-cholecystectomy. Pancreas: Visualized portions of the pancreas are sonographically normal. Miscellaneous: No free abdominal fluid. IMPRESSION: No gallbladder pathology. Dictated by: Josias Romo M.D. on 08/18/2024 at 8:26 Approved by: Josias Romo M.D. on 08/18/2024 at 8:27
--- NOTE | 2024-08-18 11:35 | P.HP_ITS ---
History of Present Illness History of Present Illness Date Patient Seen: 08/18/24 Time Patient Seen: 12:55 Chief complaint: NV, SOB Narrative: From ED doctor: 63-year-old male with a history of COPD chronically on 2 L nasal cannula, comes into the ED via EMS for evaluation of abdominal pain nausea vomiting, states that this started at around 11:00 p.m. yesterday, states that it is intermittent in nature however at 1:00 a.m. he had worsening of his symptoms had an episode of nonbilious nonbloody emesis persistent pain diffusely to his abdomen therefore decided to come into the ED for further evaluation treatment. Denies any history of abdominal surgery, denies any other symptoms such as headache visual disturbances chest pain shortness of breath fever chills or any other GI/ symptoms at this time. Additional information: He notes the pain began last evening. There was no inciting event. He denies a known history of pancreatitis although he does have multiple episodes of abdominal pain in the past. His father had pancreatitis, described as chronic pancreatitis without a history of drinking. The patient was not use alcohol in over 10 years. He denies any blood per rectum or melena. He does have a chronic cycle of constipation alternating with loose stools. He denies gallstones. He also notes history of diverticulitis. No fevers, or chills. ED course: Lipase was elevated, imaging revealed a pancreas divisum but no clear pancreatitis. He will be treated with IV fluids and pain medications for pancreatitis. [facility] Medical History History of tobacco abuse Fatigue Ventricular tachycardia (paroxysmal) Anemia Palpitations GERD with stricture HTN (hypertension) Insomnia (~2015) Hyperlipidemia (~2015) Anxiety (~2015) COPD (chronic obstructive pulmonary disease) (~2013) Asthma (Unknown) TIA (transient ischemic attack) (05/2014) Hematuria (~2014) Surgical History No pertinent past surgical history Family History Mother Age: 85 Hypertension Sister Age: 68 Cancer Social History household members: none Smoking Status: Current some day smoker Tobacco: How many years used: 47 quit status: considering quitting second hand exposure: No alcohol intake: former substance use type: does not use Comment: He lives in [place]. Meds Home Medications and Allergies Home Medications Medication Instructions Recorded Confirmed Type acetaminophen 325 mg tablet 1 dose PO PRN PRN pain 12/29/18 08/18/24 History magnesium hydroxide 400 mg/5 mL 1 dose PO PRN PRN Indigestion 12/29/18 08/18/24 History oral suspension nitroglycerin 0.3 mg sublingual 0.3 mg sublingual Q5-15M PRN chest 01/23/21 08/18/24 Rx tablet pain #20 tabs ascorbate calcium (vitamin C) 500 500 mg PO DAILY 08/06/23 08/18/24 History mg tablet prednisone 10 mg tablet 10 mg PO DAILY #30 tabs 10/13/23 08/18/24 Rx simvastatin 20 mg tablet 20 mg PO DAILY #90 tabs 01/26/24 08/18/24 Rx ferrous gluconate 324 mg (38 mg 324 mg PO DAILY #90 tabs 03/28/24 08/18/24 Rx iron) tablet acetaminophen 500 mg tablet 500 mg PO BID pain/body ache 05/14/24 08/18/24 History albuterol sulfate 2.5 mg/3 mL 2.5 mg continuous nebulization QID 05/14/24 08/18/24 History (0.083 %) solution for nebulization PRN wheezing, sob, copd aluminum-mag hydroxide-simethicone See Rx Instructions .Route 05/14/24 08/18/24 History 400 mg-400 mg-40 mg/5 mL oral susp .COMPLEX PRN heartburn/gas cetirizine 10 mg tablet 10 mg PO DAILY PRN allergy/asthma 05/14/24 08/18/24 History guaifenesin 400 mg tablet 400 mg PO TID PRN thin/clear mucus 05/14/24 08/18/24 History in lungs ipratropium 0.5 mg-albuterol 3 mg 3 ml inhalation BID PRN wheezing/ 05/14/24 08/18/24 History (2.5 mg base)/3 mL nebulization SOB/ copd soln montelukast 10 mg tablet 10 mg PO BEDTIME 05/14/24 08/18/24 History multivitamin with minerals-folic 1 tab PO DAILY 05/14/24 08/18/24 History acid 0.4 mg tablet mupirocin 2 % topical ointment 1 applic topical BID PRN treat 05/14/24 08/18/24 History infection/wound prn nystatin 100,000 unit/mL oral 5 ml PO QID PRN thrush 05/14/24 08/18/24 History suspension ondansetron HCl 4 mg tablet 4 mg PO Q6-8H PRN Nausea/Vomiting 05/14/24 08/18/24 History benzonatate 100 mg capsule 100 mg PO BID-TID PRN Cough #270 05/19/24 08/18/24 Rx caps Disabled Parking Permint #1 ea 07/01/24 08/18/24 Rx albuterol sulfate 90 mcg/actuation 1 - 2 puff PO Q4H PRN for wheezing 07/08/24 08/18/24 Rx aerosol inhaler (Ventolin HFA) #54 grams mometasone-formoterol HFA 200 2 puff PO BID #13 grams 07/22/24 08/18/24 Rx mcg-5 mcg/actuation aerosol inhaler (Dulera) clonazepam 0.5 mg tablet 0.5 mg PO TID #90 tabs 08/17/24 08/18/24 Rx Allergies Allergy/AdvReac Type Severity Reaction Status Date / Time cinnamon [CINNAMON] Allergy Severe RESP Verified 07/25/24 14:39 PROBLEMS AND SWELLING Sulfa (Sulfonamide Allergy Severe anaphylacti Verified 07/25/24 14:39 Antibiotics) c [SULFA (SULFONAMIDE ANTIBIOTICS)] fluticasone [FLUTICASONE] Allergy Intermediate FEELS Verified 07/25/24 14:39 LIKE FIRE IN THE LUNGS trimethoprim [TRIMETHOPRIM] Allergy Unknown Patient Verified 07/25/24 14:39 can't remember codeine [CODEINE] AdvReac Intermediate violent Verified 07/25/24 14:39 doxycycline [DOXYCYCLINE] AdvReac Mild N/V Verified 07/25/24 14:39 dextromethorphan AdvReac Verified 07/25/24 14:39 fentanyl AdvReac Verified 07/25/24 14:39 Review of Systems Review of Systems Narrative: All else reviewed and otherwise unremarkable except as noted in the history and physical. Exam Vital Signs (past 8 hours): - 08/18/24 04:53 08/18/24 04:54 08/18/24 04:54 Temperature 98.5 F Pulse Rate 116 H 109 H Respiratory Rate 18 Blood Pressure 127/58 L 127/58 L Pulse Oximetry 96 95 Oxygen Delivery Method Nasal Cannula Oxygen Flow Rate 2 08/18/24 05:00 08/18/24 05:00 08/18/24 05:30 Temperature Pulse Rate 113 H 115 H Respiratory Rate Blood Pressure 108/57 L Pulse Oximetry 96 95 Oxygen Delivery Method Oxygen Flow Rate 08/18/24 05:30 08/18/24 05:51 08/18/24 05:51 Temperature Pulse Rate 107 H Respiratory Rate Blood Pressure 120/64 125/64 Pulse Oximetry 95 Oxygen Delivery Method Oxygen Flow Rate 08/18/24 06:00 08/18/24 06:00 08/18/24 06:30 Temperature Pulse Rate 108 H 101 H Respiratory Rate 18 Blood Pressure 129/68 Pulse Oximetry 97 96 Oxygen Delivery Method Oxygen Flow Rate 08/18/24 06:31 08/18/24 06:31 08/18/24 07:00 Temperature Pulse Rate 102 H Respiratory Rate Blood Pressure 157/66 H 149/69 H Pulse Oximetry 96 Oxygen Delivery Method Oxygen Flow Rate 08/18/24 07:00 08/18/24 07:30 08/18/24 07:30 Temperature Pulse Rate 101 H 100 H Respiratory Rate Blood Pressure 158/77 H Pulse Oximetry 96 97 Oxygen Delivery Method Oxygen Flow Rate 08/18/24 08:00 08/18/24 08:00 08/18/24 08:30 Temperature Pulse Rate 103 H Respiratory Rate Blood Pressure 150/74 H 164/72 H Pulse Oximetry 95 Oxygen Delivery Method Oxygen Flow Rate 08/18/24 08:30 08/18/24 09:00 08/18/24 09:01 Temperature Pulse Rate 98 H 98 H Respiratory Rate 18 Blood Pressure 167/72 H Pulse Oximetry 96 96 Oxygen Delivery Method Nasal Cannula Oxygen Flow Rate 2 08/18/24 09:30 08/18/24 09:30 08/18/24 10:00 Temperature Pulse Rate 100 H Respiratory Rate 18 Blood Pressure Pulse Oximetry 95 Oxygen Delivery Method Nasal Cannula Oxygen Flow Rate 2 08/18/24 10:01 08/18/24 10:04 08/18/24 10:04 Temperature Pulse Rate 100 H Respiratory Rate 18 Blood Pressure 124/58 L 124/58 L Pulse Oximetry 95 Oxygen Delivery Method Nasal Cannula Oxygen Flow Rate 2 08/18/24 10:30 08/18/24 10:30 08/18/24 11:00 Temperature Pulse Rate 89 94 H Respiratory Rate 18 Blood Pressure 128/60 Pulse Oximetry 94 93 Oxygen Delivery Method Nasal Cannula Oxygen Flow Rate 2 08/18/24 11:00 Temperature Pulse Rate Respiratory Rate Blood Pressure 133/63 Pulse Oximetry Oxygen Delivery Method Oxygen Flow Rate Oxygen Delivery Method Nasal Cannula Oxygen Flow Rate 2 Narrative Exam Narrative: NAD, alert and oriented, fluent speech, calm. On O2, 2 L. This is chronic. Normocephalic skull, EOMI, anicteric sclera, symmetric pupils. Oropharynx unremarkable, no droop. Neck supple, midline trachea, no adenopathy. Lungs clear with globally diminished breath sounds., normal rate and effort. Heart regular, no murmur gallop or rub. Abdomen is soft, non distended and non tender. Extremities are free of edema. Skin is free of rash or lesions. Joints are not swollen or deformed. Judgment appears to be normal. Objective ECG Impression: Sinus tachycardia with premature atrial complexes Imaging Multiple studies:: Radiologist's impression: Abdomen ultrasound: No gallbladder pathology. Abdomen pelvis CT: Suspected enteritis of the jejunum, with wall thickening. Gallbladder hydrops. Same day gallbladder ultrasound demonstrates no acute abnormality. Colonic diverticulosis without evidence of diverticulitis. Pancreatic divisum. Agree with preliminary report. Labs 08/18/24 04:55 08/18/24 04:55 Labs: Laboratory Results - last 24 hr 08/18/24 04:55 WBC 24.1 H RBC 4.93 Hgb 12.4 L Hct 40.4 L MCV 81.9 MCH 25.2 L MCHC 30.8 RDW 17.4 H Plt Count 273 Neut % (Auto) 90.0 H Lymph % (Auto) 4.7 L [place] % (Auto) 4.8 Eos % (Auto) 0.3 L Baso % (Auto) 0.2 Neut # (Auto) 26312 H Lymph # (Auto) 1100 [place] # (Auto) 1100 H Eos # (Auto) 100 Baso # (Auto) 0 Sodium 139 Potassium 4.0 Chloride 97 L Carbon Dioxide 39 H BUN 29 H Creatinine 1.04 Estimated GFR > 60 BUN/Creatinine Ratio 27.9 H Glucose 130 H Lactate 1.7 Calcium 8.8 Magnesium 1.9 Total Bilirubin 0.5 AST 31 ALT 24 Alkaline Phosphatase 65 Total Protein 7.3 Albumin 4.0 Globulin 3.3 Albumin/Globulin Ratio 1.2 Lipase 2103 H D Assessment & Plan Assessment & Plan narrative: 1. Pancreatitis versus enteritis, present on admission and active. 2. Pancreas divisum, present on admission and active. 3. Leukocytosis, present on admission and active. 4. Chronic hypoxic respiratory failure, present on admission and active. 5. Tobacco use disorder, present on admission and active. Plan: -IV fluids, nothing by mouth. -symptomatic treatment with analgesia and antiemetics. -trend WBC. -rule out high triglycerides. Anticipate 1 night stay, supports observation status. Full resuscitation. Time-Based Coding :: [TOTAL MINUTES] spent with patient and on the chart (including review of chart, obtaining history, exam, reviewing outside data, placing orders, documenting exam and treatment plan, and counseling patient) on [DATE].
[2024-08-18] MEDS: DEXTROSE 5%-0.45% NS 1,000 ML 100 ML IV ×2 (13:11→22:15)
[2024-08-18] MEDS: HYDROMORPHONE 0.5 MG INJ IV ×2 (17:30→22:27)
[2024-08-18] MEDS: clonazePAM 0.5 MG TABLET PO (17:35)
[2024-08-18] MEDS: MONTELUKAST 10 MG TABLET PO (20:28)
[2024-08-18 23:00] LABS: Appearance Urine UA CLEAR; Bilirubin Urine UA NEGATIVE (NEGATIVE); Color Urine UA YELLOW; Glucose Urine UA NEGATIVE (Negative); Ketones Urine UA NEGATIVE (NEGATIVE); Leukocyte Esterase Urine UA NEGATIVE (NEGATIVE); Nitrite Urine UA NEGATIVE (Negative); Occult Blood Urine UA 2+ (Negative); Protein Urine UA TRACE (Negative); Urobilinogen Urine UA 0.2 E.U./dL (0.2)
[2024-08-18 23:36] LABS: Bacteria Urine None Seen; Culture Indicated Urine Cult Not Indicated; RBC Urine 0-1/HPF (0-5/HPF); Squamous Epithelial Cell Urine None Seen (0-5/HPF); Urine Volume 10mL (spun); WBC Urine None Seen (0-5/HPF)
[2024-08-19] VITALS (11 sets, daily range): BP systolic 100–132; BP diastolic 51–66; PULSE 65–103; RESP 14–20; TEMP 36.3–37.1; O2SAT 93–98
[2024-08-19] MEDS: BENZONATATE 100 MG CAPSULE PO ×3 (02:04→21:16)
[2024-08-19] MEDS: guaiFENesin ER 600 MG TAB PO (02:05)
[2024-08-19] MEDS: HYDROMORPHONE 0.5 MG INJ IV ×8 (02:08→23:34)
[2024-08-19 05:58] LABS: Add Manual Diff / Slide Review NO; Basophils Absolute Auto 0 /uL (0-100); Basophils Percent Auto 0.6 % (0-2); Eosinophils Absolute Auto 100 /uL (0-450); Eosinophils Percent Auto 1.1 % (2-4); Hematocrit 33.5 % (41-53); Hemoglobin 10.5 g/dL (13.5-17.5); Lymphocytes Absolute Auto 900 /uL (1100-4500); Lymphocytes Percent Auto 14.1 % (25-40); Mean Corpuscular HGB Conc 31.4 % (30-36); Mean Corpuscular Hemoglobin 25.8 PG (26-34); Mean Corpuscular Volume 82.1 fL (80-100); Monocytes Absolute Auto 900 /uL (0-900); Monocytes Percent Auto 14.3 % (3-14); Neutrophils Absolute Auto 4600 /uL (1500-7000); Neutrophils Percent Auto 69.9 % (50-75); Platelet Count 166 X10^3/uL (150-400); Red Blood Cell Count 4.08 X10^6/uL (4.5-5.9); Red Cell Distribution Width 17.1 % (11.6-14.8); White Blood Cell Count 6.6 X10^3/uL (4.5-11.0)
[2024-08-19 06:09] LABS: BUN Creatinine Ratio 20.6 (6-22); Blood Urea Nitrogen 21 mg/dL (9-20); Calcium 7.5 mg/dL (8.4-10.2); Carbon Dioxide 34 mmol/L (22-32); Chloride 101 mmol/L (98-107); Estimated Glomerular Filt Rate > 60 mL/min (>60); Glucose 101 mg/dL (80-110); HEMOLYSIS < 15 (0-50); Potassium 3.9 mmol/L (3.4-5.1); Sodium 135 mmol/L (137-145)
[2024-08-19 06:22] LABS: Cholesterol 129 mg/dL (140-199); HDL Cholesterol 40 mg/dL (40-60); LDL Cholesterol Calculated 67 mg/dL (<100); Triglycerides 108 mg/dL (35-150)
[2024-08-19] MEDS: DEXTROSE 5%-0.45% NS 1,000 ML 100 ML IV ×2 (07:10→17:17)
[2024-08-19] MEDS: BUDESONIDE 0.5 MG/2 ML NEB INH ×2 (08:55→20:34)
[2024-08-19] MEDS: ALBUTEROL/IPRATROPIUM 3 ML AMPUL INH (08:55)
[2024-08-19] MEDS: guaiFENesin Solution 100 MG/5 ML UDC 200 MG PO ×2 (09:42→21:16)
[2024-08-19] MEDS: predniSONE 5 MG TABLET 10 MG PO (09:42)
[2024-08-19] MEDS: ATORVASTATIN 20 MG TABLET 10 MG PO (09:43)
[2024-08-19] MEDS: clonazePAM 0.5 MG TABLET PO ×2 (09:43→15:52)
[2024-08-19] MEDS: ONDANSETRON 4 MG/2 ML INJ IV ×2 (11:22→23:54)
--- NOTE | 2024-08-19 11:39 | PM.PN.1 ---
Subjective Subjective Interval history: S: He was admitted with pancreatitis in his still having significant pain today, although it is improving. He denies any nausea. He did have some hemoptysis yesterday, this is resolved today. His breathing is stable and he was on 2 L of oxygen which he takes at home as well. Exam Vital Signs (past 8 hours): - 08/19/24 04:55 08/19/24 08:00 08/19/24 08:56 Temperature 98.6 F 98.3 F Pulse Rate 65 96 H 72 Respiratory Rate 20 20 14 Blood Pressure 132/63 106/51 L Pulse Oximetry 94 94 96 Oxygen Delivery Method Nasal Cannula Oxygen Flow Rate 3 3 3 08/19/24 09:17 Temperature Pulse Rate Respiratory Rate Blood Pressure Pulse Oximetry 96 Oxygen Delivery Method Nasal Cannula Oxygen Flow Rate 2 Oxygen Delivery Method Nasal Cannula Oxygen Flow Rate 2 Narrative Exam Narrative: NAD, alert and oriented. Fluent speech. Lungs are with diminished breath sounds globally and mild prolonged expiratory phase, normal rate and effort. Heart is regular, no murmur gallop or rub. Abdomen is soft, non distended. There is less epigastric tenderness than yesterday. Extremities are free of edema. Objective Labs 08/19/24 05:09 08/19/24 05:09 Labs: Laboratory Results - last 24 hr 08/18/24 08/19/24 22:20 05:09 WBC 6.6 D RBC 4.08 L Hgb 10.5 L Hct 33.5 L MCV 82.1 MCH 25.8 L MCHC 31.4 RDW 17.1 H Plt Count 166 Neut % (Auto) 69.9 D Lymph % (Auto) 14.1 L [place] % (Auto) 14.3 H Eos % (Auto) 1.1 L Baso % (Auto) 0.6 Neut # (Auto) 4600 Lymph # (Auto) 900 L [place] # (Auto) 900 Eos # (Auto) 100 Baso # (Auto) 0 Sodium 135 L Potassium 3.9 Chloride 101 Carbon Dioxide 34 H BUN 21 H Creatinine 1.02 Estimated GFR > 60 BUN/Creatinine Ratio 20.6 Glucose 101 Calcium 7.5 L Triglycerides 108 Cholesterol 129 L LDL Cholesterol, Calc 67 HDL Cholesterol 40 Urine Color Yellow Urine Appearance Clear Urine pH 5.0 Ur Specific [place] 1.020 Urine Protein Trace H Urine Glucose (UA) Negative Urine Ketones Negative Urine Occult Blood 2+ H Urine Nitrate Negative Urine Bilirubin Negative Urine Urobilinogen 0.2 Ur Leukocyte Esterase Negative Urine RBC 0-1/hpf Urine WBC None seen Ur Squamous Epith Cells None seen Urine Bacteria None seen Ur Culture Indicated? Cult not indicated Vol Urine Centrifuged 10ml (spun) [facility] Medical History History of tobacco abuse Fatigue Ventricular tachycardia (paroxysmal) Anemia Palpitations GERD with stricture HTN (hypertension) Insomnia (~2015) Hyperlipidemia (~2015) Anxiety (~2015) COPD (chronic obstructive pulmonary disease) (~2013) Asthma (Unknown) TIA (transient ischemic attack) (05/2014) Hematuria (~2014) Surgical History No pertinent past surgical history Family History Mother Age: 85 Hypertension Sister Age: 68 Cancer Social History household members: none Smoking Status: Current some day smoker Tobacco: How many years used: 47 quit status: considering quitting second hand exposure: No alcohol intake: former substance use type: does not use Assessment & Plan Assessment & Plan narrative: 1. Pancreatitis versus enteritis, present on admission and active. 2. Pancreas divisum, present on admission and active. 3. Leukocytosis, present on admission and active. 4. Chronic hypoxic respiratory failure, present on admission and active. 5. Tobacco use disorder, present on admission and active. Plan: -IV fluids, slow diet advance. -symptomatic treatment with analgesia and antiemetics. -trend WBC. -ruled out high triglycerides (108) Anticipate another night of care, patient was currently in observation status. JAYMIE: 08/20. Home. Time-Based Coding :: [TOTAL MINUTES] spent with patient and on the chart (including review of chart, obtaining history, exam, reviewing outside data, placing orders, documenting exam and treatment plan, and counseling patient) on [DATE]. Quality VTE Deep Vein Thrombosis/Pulmonary Embolism Present on Admission: No
[2024-08-19] MEDS: LORATADINE 10 MG TABLET PO (15:52)
--- NOTE | 2024-08-19 15:59 | CM.DANOTE ---
Initial DCP Assessment Note Pt is a 63 yo male, resident of [place], presents with N/V , Pancreatitis versus enteritis PCP: Saqib Oliva Payer: TEE/[employer] Reviewed chart, pt discussed in multidisciplinary rounds this morning. Anticipate another night of care, IV fluids, slow diet advance. Patient lives alone in [place], family live near. JENNIFER caregivers through [facility](?) need to confirm with patient. [facility]x [facility]. No barriers identified at this time to patient's safe discharge home w/family to assist; close outpatient f/u recommended. CM team will plan to follow clinical course closely in case any DC needs or concerns arise. GILDA Alonzo Discharge Planning/Care Management Discharge Assessment Start: 08/19/24 15:54 Freq: Status: Active Protocol: Document 08/19/24 15:54 CRISTAL (Rec: 08/19/24 15:59 CRISTAL [id number]) Discharge Planning Assessment Assigned Therapeutic Strategy Lead GILDA Santoro DPOA/Assigned Designee Name sister Lakhani Contact Information [phone] Advance Directives? No Advance Directives on File No History Provided By Patient,Medical Record Prior Living Arrangements House Household Members none Type of transporation used prior to Drives own vehicle admit Independent with ADL's Yes Is patient alert and oriented? Yes Comment His oxygen is provided with [employer]. Comment Patient has caregivers through [facility] that come in, and he also has family in the area. Discharge Plan Home Transportation Arrangement Family
[2024-08-19] MEDS: MONTELUKAST 10 MG TABLET PO (21:16)
[2024-08-19] MEDS: SODIUM CHLORIDE 0.9% FLUSH 10 ML IV (21:17)
[2024-08-20] VITALS (8 sets, daily range): BP systolic 113–134; BP diastolic 60–70; PULSE 76–93; RESP 12–20; TEMP 36.2–36.6; O2SAT 95–98
[2024-08-20] MEDS: DEXTROSE 5%-0.45% NS 1,000 ML 100 ML IV ×2 (03:30→22:34)
[2024-08-20 05:08] LABS: Add Manual Diff / Slide Review NO; Basophils Absolute Auto 0 /uL (0-100); Basophils Percent Auto 0.4 % (0-2); Eosinophils Absolute Auto 100 /uL (0-450); Eosinophils Percent Auto 1.1 % (2-4); Hematocrit 30.2 % (41-53); Hemoglobin 9.6 g/dL (13.5-17.5); Lymphocytes Absolute Auto 1600 /uL (1100-4500); Lymphocytes Percent Auto 27.7 % (25-40); Mean Corpuscular HGB Conc 31.8 % (30-36); Mean Corpuscular Hemoglobin 25.9 PG (26-34); Mean Corpuscular Volume 81.5 fL (80-100); Monocytes Absolute Auto 1000 /uL (0-900); Monocytes Percent Auto 17.4 % (3-14); Neutrophils Absolute Auto 3200 /uL (1500-7000); Neutrophils Percent Auto 53.4 % (50-75); Platelet Count 133 X10^3/uL (150-400); Red Cell Distribution Width 16.6 % (11.6-14.8); White Blood Cell Count 5.9 X10^3/uL (4.5-11.0)
[2024-08-20 05:26] LABS: BUN Creatinine Ratio 15.3 (6-22); Blood Urea Nitrogen 13 mg/dL (9-20); Calcium 7.6 mg/dL (8.4-10.2); Carbon Dioxide 34 mmol/L (22-32); Chloride 101 mmol/L (98-107); Estimated Glomerular Filt Rate > 60 mL/min (>60); Glucose 98 mg/dL (80-110); HEMOLYSIS < 15 (0-50); Potassium 3.7 mmol/L (3.4-5.1); Sodium 136 mmol/L (137-145)
[2024-08-20] MEDS: BUDESONIDE 0.5 MG/2 ML NEB INH ×2 (07:50→19:01)
[2024-08-20] MEDS: ALBUTEROL/IPRATROPIUM 3 ML AMPUL INH ×3 (07:50→19:01)
[2024-08-20] MEDS: LORATADINE 10 MG TABLET PO (09:22)
[2024-08-20] MEDS: SODIUM CHLORIDE 0.9% FLUSH 10 ML IV ×2 (09:22→21:05)
[2024-08-20] MEDS: ATORVASTATIN 20 MG TABLET 10 MG PO (09:22)
[2024-08-20] MEDS: MAG HYDROX/ALUM/SIMETH 30 ML UDC PO ×2 (09:23→21:04)
[2024-08-20] MEDS: predniSONE 5 MG TABLET 10 MG PO (09:23)
[2024-08-20] MEDS: HYDROMORPHONE 0.5 MG INJ IV ×3 (09:23→21:05)
--- NOTE | 2024-08-20 11:55 | PM.PN.1 ---
Subjective Subjective Interval history: S: his pain is somewhat improved, he still has some epigastric pain. He was very hungry. No bowel movement since yesterday. Does not have any dyspnea, or recurrent hemoptysis. Exam Vital Signs (past 8 hours): - 08/20/24 07:00 08/20/24 07:51 Temperature 97.9 F Pulse Rate 77 93 H Respiratory Rate 15 20 Blood Pressure 121/66 Pulse Oximetry 96 96 Oxygen Delivery Method Nasal Cannula Oxygen Flow Rate 2 1.5 Fraction of Inspired Oxygen 26 Fraction of Inspired Oxygen 26 SaO2/FiO2 Ratio 369 Oxygen Delivery Method Nasal Cannula Oxygen Flow Rate 1.5 Narrative Exam Narrative: NAD, alert and oriented. Fluent speech. Lungs are with diminished breath sounds globally and mild prolonged expiratory phase, normal rate and effort. Heart is regular, no murmur gallop or rub. Abdomen is soft, non distended. There is less epigastric tenderness than yesterday. Extremities are free of edema. Objective Labs 08/20/24 04:27 08/20/24 04:27 Labs: Laboratory Results - last 24 hr 08/20/24 04:27 WBC 5.9 RBC 3.70 L Hgb 9.6 L Hct 30.2 L MCV 81.5 MCH 25.9 L MCHC 31.8 RDW 16.6 H Plt Count 133 L Neut % (Auto) 53.4 Lymph % (Auto) 27.7 [place] % (Auto) 17.4 H Eos % (Auto) 1.1 L Baso % (Auto) 0.4 Neut # (Auto) 3200 Lymph # (Auto) 1600 [place] # (Auto) 1000 H Eos # (Auto) 100 Baso # (Auto) 0 Sodium 136 L Potassium 3.7 Chloride 101 Carbon Dioxide 34 H BUN 13 Creatinine 0.85 Estimated GFR > 60 BUN/Creatinine Ratio 15.3 Glucose 98 Calcium 7.6 L [facility] Medical History History of tobacco abuse Fatigue Ventricular tachycardia (paroxysmal) Anemia Palpitations GERD with stricture HTN (hypertension) Insomnia (~2015) Hyperlipidemia (~2015) Anxiety (~2015) COPD (chronic obstructive pulmonary disease) (~2013) Asthma (Unknown) TIA (transient ischemic attack) (05/2014) Hematuria (~2014) Surgical History No pertinent past surgical history Family History Mother Age: 85 Hypertension Sister Age: 68 Cancer Social History household members: none Smoking Status: Current some day smoker Tobacco: How many years used: 47 quit status: considering quitting second hand exposure: No alcohol intake: former substance use type: does not use Assessment & Plan Assessment & Plan narrative: 1. Pancreatitis versus enteritis, present on admission and active. 2. Pancreas divisum, present on admission and active. 3. Leukocytosis, present on admission and active. 4. Chronic hypoxic respiratory failure, present on admission and active. 5. Tobacco use disorder, present on admission and active. 6. Non-ambulatory for several years due to weakness and other vague issues, present on admission and active. Uses a power chair at home. Plan: -IV fluids, slow diet advance (clear liquids tida abnd ensure). -Continue symptomatic treatment with analgesia and antiemetics. -trend WBC. -ruled out high triglycerides (108) JAYMIE: 08/21, home. Time-Based Coding :: [TOTAL MINUTES] spent with patient and on the chart (including review of chart, obtaining history, exam, reviewing outside data, placing orders, documenting exam and treatment plan, and counseling patient) on [DATE]. Quality VTE Deep Vein Thrombosis/Pulmonary Embolism Present on Admission: No
[2024-08-20] MEDS: clonazePAM 0.5 MG TABLET PO (16:11)
[2024-08-20] MEDS: guaiFENesin Solution 100 MG/5 ML UDC 200 MG PO (21:03)
[2024-08-20] MEDS: MONTELUKAST 10 MG TABLET PO (21:04)
[2024-08-20] MEDS: BENZONATATE 100 MG CAPSULE PO (21:04)
[2024-08-21] VITALS (8 sets, daily range): BP systolic 131–158; BP diastolic 61–75; PULSE 72–94; RESP 12–18; TEMP 35.9–36.5; O2SAT 93–98
[2024-08-21] MEDS: MAG HYDROX/ALUM/SIMETH 30 ML UDC PO ×2 (02:48→08:38)
[2024-08-21] MEDS: HYDROMORPHONE 0.5 MG INJ IV ×5 (02:48→23:53)
--- NOTE | 2024-08-21 07:28 | P.PN_ITS ---
Subjective Subjective Interval history: Summary: admitted with possible pancreatitis vs enteritis. Improving after bowel rest. Imaging revealed pacreas divisum. S: She is feeling little bit better today. No coughing and much less wheezing. She is motivated to get out of bed and be up and moving around. She was up part of the night and was sleeping in this morning. Exam Vital Signs (past 8 hours): - 08/21/24 00:00 08/21/24 04:00 Temperature 96.8 F L 97.5 F L Pulse Rate 76 72 Respiratory Rate 16 Blood Pressure 131/67 134/61 Pulse Oximetry 98 97 Oxygen Flow Rate 2 2 Fraction of Inspired Oxygen 26 SaO2/FiO2 Ratio 369 Oxygen Delivery Method Nasal Cannula Oxygen Flow Rate 2 Narrative Exam Narrative: NAD, alert and oriented. Fluent speech. Lungs are with diminished breath sounds globally and mild prolonged expiratory phase, normal rate and effort. Heart is regular, no murmur gallop or rub. Abdomen is soft, non distended. There is less epigastric tenderness than yesterday. Extremities are free of edema. Objective Labs 08/21/24 12:00 08/21/24 12:00 [facility] Medical History History of tobacco abuse Fatigue Ventricular tachycardia (paroxysmal) Anemia Palpitations GERD with stricture HTN (hypertension) Insomnia (~2015) Hyperlipidemia (~2015) Anxiety (~2015) COPD (chronic obstructive pulmonary disease) (~2013) Asthma (Unknown) TIA (transient ischemic attack) (05/2014) Hematuria (~2014) Surgical History No pertinent past surgical history Family History Mother Age: 85 Hypertension Sister Age: 68 Cancer Social History household members: none Smoking Status: Current some day smoker Tobacco: How many years used: 47 quit status: considering quitting second hand exposure: No alcohol intake: former substance use type: does not use Assessment & Plan Assessment & Plan narrative: 1. Pancreatitis versus enteritis, present on admission and active. 2. Pancreas divisum, present on admission and active. 3. Leukocytosis, present on admission and active. 4. Chronic hypoxic respiratory failure, present on admission and active. 5. Tobacco use disorder, present on admission and active. 6. Non-ambulatory for several years due to weakness and other vague issues, present on admission and active. Uses a power chair at home. 7. URI with cough (neg flu, Covid, and RSV), present on admission and active. Plan: -IV fluids, slow diet advance (clear liquids). -Continue symptomatic treatment with analgesia and antiemetics. -trend WBC. -ruled out high triglycerides (108) -Monitor cough. -KUB to rule out ileus JAYMIE: 08/22 or 08/23. Home (lives alone and has good family supprt, transfers to a power chair). Time-Based Coding :: [TOTAL MINUTES] spent with patient and on the chart (including review of chart, obtaining history, exam, reviewing outside data, placing orders, documenting exam and treatment plan, and counseling patient) on [DATE]. Quality VTE Deep Vein Thrombosis/Pulmonary Embolism Present on Admission: No
[2024-08-21] MEDS: ALBUTEROL/IPRATROPIUM 3 ML AMPUL INH ×2 (09:07→19:31)
[2024-08-21] MEDS: BUDESONIDE 0.5 MG/2 ML NEB INH ×2 (09:07→19:31)
[2024-08-21] MEDS: BENZONATATE 100 MG CAPSULE PO (09:26)
[2024-08-21] MEDS: clonazePAM 0.5 MG TABLET PO ×2 (09:26→20:37)
[2024-08-21] MEDS: guaiFENesin Solution 100 MG/5 ML UDC 200 MG PO (09:26)
[2024-08-21] MEDS: DEXTROSE 5%-0.45% NS 1,000 ML 100 ML IV ×2 (09:30→21:06)
[2024-08-21] MEDS: predniSONE 5 MG TABLET 10 MG PO (09:31)
[2024-08-21] MEDS: SIMETHICONE 80 MG TABLET PO (10:40)
[2024-08-21 12:08] LABS: Hematocrit 31.4 % (41-53); Hemoglobin 9.8 g/dL (13.5-17.5); Mean Corpuscular HGB Conc 31.1 % (30-36); Mean Corpuscular Hemoglobin 25.7 PG (26-34); Mean Corpuscular Volume 82.5 fL (80-100); Platelet Count 124 X10^3/uL (150-400); Red Blood Cell Count 3.81 X10^6/uL (4.5-5.9); Red Cell Distribution Width 17.1 % (11.6-14.8); White Blood Cell Count 9.7 X10^3/uL (4.5-11.0)
--- NOTE | 2024-08-21 12:19 | DI.RAD.S_ITS ---
PROCEDURE: XR KUB INDICATIONS: Abdomen pain and distension TECHNIQUE: One view of the abdomen acquired. COMPARISON: [facility], CR, XR ACUTE ABDOMEN SERIES, 02/06/2018, 23:17. FINDINGS: Surgical changes and devices: None. Bowel: Bowel gas pattern is normal. Moderate 2 large stool volume Soft tissues: No suspicious abdominal calcifications. Visualized solid organ contours appear normal in size. Bones: No suspicious bony lesions. IMPRESSION: No evidence of bowel obstruction. Moderate to large stool volume Dictated by: Sanjeev Schmidt M.D. on 08/21/2024 at 12:07 Approved by: Sanjeev Schmidt M.D. on 08/21/2024 at 12:08
[2024-08-21 12:21] LABS: Alanine Aminotransferase 21 IU/L (<50); Albumin 3.2 g/dL (3.5-5.0); Albumin Globulin Ratio 1.1 (1.0-2.8); Alkaline Phosphatase 47 U/L (38-126); Aspartate Aminotransferase 34 IU/L (17-59); BUN Creatinine Ratio 11.8 (6-22); Bilirubin Total 0.3 mg/dL (0.2-1.3); Blood Urea Nitrogen 9 mg/dL (9-20); Carbon Dioxide 37 mmol/L (22-32); Chloride 100 mmol/L (98-107); Estimated Glomerular Filt Rate > 60 mL/min (>60); Globulin 2.9 g/dL (1.7-4.1); Glucose 119 mg/dL (80-110); HEMOLYSIS < 15 (0-50); Lipase 116 U/L (23-300); Potassium 3.9 mmol/L (3.4-5.1); Sodium 137 mmol/L (137-145); Total Protein 6.1 g/dL (6.3-8.2)
[2024-08-21] MEDS: predniSONE 20 MG TABLET 40 MG PO (14:09)
[2024-08-21] MEDS: BISACODYL 10 MG SUPP PR (14:09)
[2024-08-21 15:30] LABS: Adenovirus Not Detected (Not Detect); B. parapertussis Not Detected (Not Detecte); Bordetella pertussis Not Detected (Not Detect); Chlamydophila pneumoniae Not Detected (Not Detect); Coronavirus 229E Not Detected (Not Detect); Coronavirus HKU1 Not Detected (Not Detect); Coronavirus NL 63 Not Detected (Not Detect); Coronavirus OC43 Not Detected (Not Detect); Human Metapneumovirus Not Detected (Not Detect); Human Rhinovirus/Enterovirus Not Detected (Not Detect); Influenza A Not Detected (Not Detect); Influenza B Not Detected (Not Detect); Mycoplasma pneumoniae Not Detected (Not Detect); Parainfluenza Virus 1 Not Detected (Not Detect); Parainfluenza Virus 2 Not Detected (Not Detect); Parainfluenza Virus 3 Not Detected (Not Detect); Parainfluenza Virus 4 Not Detected (Not Detect); Respiratory Syncytial Virus Not Detected (Not Detect); SARS- CoV-2 Not Detected (Not Detecte)
[2024-08-21] MEDS: ATORVASTATIN 20 MG TABLET 10 MG PO (20:24)
[2024-08-21] MEDS: SODIUM CHLORIDE 0.9% FLUSH 10 ML IV (20:24)
[2024-08-21] MEDS: MONTELUKAST 10 MG TABLET PO (20:24)
[2024-08-22] VITALS (8 sets, daily range): BP systolic 115–158; BP diastolic 62–79; PULSE 64–87; RESP 9–20; TEMP 36.1–36.5; O2SAT 94–100
--- NOTE | 2024-08-22 01:43 | PC.NURSE ---
^ bruise on L buttock coccyx blanchable
[2024-08-22] MEDS: MAG HYDROX/ALUM/SIMETH 30 ML UDC PO ×2 (06:57→20:00)
[2024-08-22] MEDS: BUDESONIDE 0.5 MG/2 ML NEB INH ×2 (07:37→19:05)
[2024-08-22] MEDS: ALBUTEROL/IPRATROPIUM 3 ML AMPUL INH ×2 (07:37→19:05)
[2024-08-22] MEDS: clonazePAM 0.5 MG TABLET PO ×2 (08:00→20:00)
[2024-08-22] MEDS: predniSONE 20 MG TABLET 40 MG PO (08:10)
[2024-08-22] MEDS: guaiFENesin Solution 100 MG/5 ML UDC 200 MG PO ×2 (08:14→20:15)
[2024-08-22] MEDS: BENZONATATE 100 MG CAPSULE PO ×2 (08:15→20:10)
[2024-08-22] MEDS: SODIUM CHLORIDE 0.9% FLUSH 10 ML IV ×2 (08:16→20:00)
--- NOTE | 2024-08-22 15:02 | DIET.CONS ---
Dietary Consultation Note Admission Date: 08/20/2024 12:48 Assessment: 63 y M admitted for pancreatitis vs enteritis. Dietitian screened for LOS. Met with pt in room. Pt reports multiple medical complications over past 4 weeks affecting his food intakes. Maintains small freq meals usually with 2 ensures daily, but feels he has been unable to eat same portions/same amount of meals lately. Weight has been mostly stable, last weight at home per pt was 167 lb, pt now 168 lb per most recent weight in hospital. Pt's diet being advanced to fulls. Unsure about what foods he should be having when diet gets advanced. Discussed full liquid and regular meal options most appropriate. Prefers chocolate ensure BID added. Nutrition focused physical exam performed with no significant findings. Ht: 175.26 cm Wt: 76.5 kg BMI: 24.9 UBW: 74.389 kg on 04/21/24, 75.9 kg per pt Last BM: 08/21/24 (08/21/24 16:00) MNA: 11 Matthew Score: 18 Diet: 08/20/24 Lunch Clear Liquid Diet Diet Modifications: 08/22/24 Dinner Full Liquid Diet Diet Modifications: add ensure Nutrition Percent Meal Consumed 50% 08/21/24 18:00 Percent Meal Consumed 50% 08/20/24 18:00 Labs: RBC 3.81 X10^6/uL (4.5-5.9) L 08/21/24 12:00 Hgb 9.8 g/dL (13.5-17.5) L 08/21/24 12:00 Hct 31.4 % (41-53) L 08/21/24 12:00 Creatinine 0.76 mg/dL (0.66-1.25) 08/21/24 12:00 Lactate 1.7 mmol/L (0.7-2.1) 08/18/24 04:55 Nutrition Diagnosis: Inadequate oral intake r/t alterations in GI tract/accessory organs aeb pt reports poor PO intakes for 4 weeks, clears/NPO 4 days Interventions: 1. ONS BID Monitoring/Evaluations: monitoring diet progression Electronically Signed by: Alyssa Srinivasan 08/22/24 15:02 Clinical Dietitian [address] [address]
--- NOTE | 2024-08-22 15:29 | CM.DPNOTE ---
DCP Note MAINTENANCE CONSTRUCTION HELPER reviewed EMR per provider in morning rounds, will advance diet tonight/tomorrow morning. May dc tomorrow. Per nursing staff, pt had a BM. Per Myrna at [facility], confirm hx of working with pt, could accept back if needed. pt has not needed to work with PT/OT during admission, likely would not qualify with being home bound. Need to confirm with pt caregivers JENNIFER with [employer]? unable to meet with pt today due to triaging needs. No barriers identified at this time to patient's safe discharge home w/family and JENNIFER to assist; close outpatient f/u recommended. CM team will plan to follow clinical course closely in case any DC needs or concerns arise. GILDA Aguilar
--- NOTE | 2024-08-22 16:24 | P.PN_ITS ---
Subjective Subjective Interval history: Summary: admitted with possible pancreatitis vs enteritis. Improving after bowel rest. Imaging revealed pacreas divisum. S: She is feeling little bit better today. No coughing and much less wheezing. She is motivated to get out of bed and be up and moving around. She was up part of the night and was sleeping in this morning. Exam Vital Signs (past 8 hours): - 08/22/24 12:00 Temperature 97.7 F Pulse Rate 79 Respiratory Rate 9 L Blood Pressure 148/75 H Pulse Oximetry 95 Oxygen Flow Rate 0 Fraction of Inspired Oxygen 24 SaO2/FiO2 Ratio 404 Oxygen Delivery Method Nasal Cannula Oxygen Flow Rate 0 Narrative Exam Narrative: NAD, alert and oriented. Fluent speech. Lungs are with diminished breath sounds globally and mild prolonged expiratory phase, normal rate and effort. Heart is regular, no murmur gallop or rub. Abdomen is soft, non distended. There is less epigastric tenderness than yesterday. Extremities are free of edema. Objective Labs 08/21/24 12:00 08/21/24 12:00 [facility] Medical History History of tobacco abuse Fatigue Ventricular tachycardia (paroxysmal) Anemia Palpitations GERD with stricture HTN (hypertension) Insomnia (~2015) Hyperlipidemia (~2015) Anxiety (~2015) COPD (chronic obstructive pulmonary disease) (~2013) Asthma (Unknown) TIA (transient ischemic attack) (05/2014) Hematuria (~2014) Surgical History No pertinent past surgical history Family History Mother Age: 85 Hypertension Sister Age: 68 Cancer Social History household members: none Smoking Status: Current some day smoker Tobacco: How many years used: 47 quit status: considering quitting second hand exposure: No alcohol intake: former substance use type: does not use Assessment & Plan Assessment & Plan narrative: 1. Pancreatitis versus enteritis, present on admission and active. 2. Pancreas divisum, present on admission and active. 3. Bacterial pneumonia, present on admission and active. 4. Chronic hypoxic respiratory failure, present on admission and active. 5. Tobacco use disorder, present on admission and active. 6. Non-ambulatory for several years due to weakness and other vague issues, present on admission and active. Uses a power chair at home. 7. URI with cough, possible bacterial pneumonia (neg flu, Covid, and RSV), present on admission and active. 8. COPD with exacerbation Plan: -Advance to full liquids this evening, continue IV fluids. -Continue symptomatic treatment with analgesia and antiemetics. -trend WBC. -ruled out high triglycerides (108) -Continue prednisone for COPD exacerbation, antibiotics for possible bacterial pneumonia JAYMIE: Likely 1-2 more days, pending further advancement of diet and improvement in cough / respiratory symptoms. Will discharge home (lives alone and has good family supprt, transfers to a power chair). Time-Based Coding :: [TOTAL MINUTES] spent with patient and on the chart (including review of chart, obtaining history, exam, reviewing outside data, placing orders, documenting exam and treatment plan, and counseling patient) on [DATE]. Quality VTE Deep Vein Thrombosis/Pulmonary Embolism Present on Admission: No
[2024-08-22] MEDS: MONTELUKAST 10 MG TABLET PO (20:00)
[2024-08-22] MEDS: ATORVASTATIN 20 MG TABLET 10 MG PO (20:00)
[2024-08-22] MEDS: ACETAMINOPHEN 325 MG TABLET PO (21:55)
[2024-08-23] VITALS (8 sets, daily range): BP systolic 127–152; BP diastolic 67–82; PULSE 80–101; RESP 12–19; TEMP 36.1–37; O2SAT 92–97
[2024-08-23] MEDS: ONDANSETRON 4 MG/2 ML INJ IV (05:18)
[2024-08-23 05:38] LABS: Add Manual Diff / Slide Review NO; Basophils Absolute Auto 0 /uL (0-100); Basophils Percent Auto 0.3 % (0-2); Eosinophils Absolute Auto 0 /uL (0-450); Eosinophils Percent Auto 0.3 % (2-4); Hematocrit 30.3 % (41-53); Hemoglobin 9.5 g/dL (13.5-17.5); Lymphocytes Absolute Auto 1800 /uL (1100-4500); Lymphocytes Percent Auto 20.6 % (25-40); Mean Corpuscular HGB Conc 31.3 % (30-36); Mean Corpuscular Hemoglobin 25.8 PG (26-34); Mean Corpuscular Volume 82.5 fL (80-100); Monocytes Absolute Auto 1100 /uL (0-900); Monocytes Percent Auto 12.7 % (3-14); Neutrophils Absolute Auto 5700 /uL (1500-7000); Neutrophils Percent Auto 66.1 % (50-75); Platelet Count 159 X10^3/uL (150-400); Red Blood Cell Count 3.68 X10^6/uL (4.5-5.9); Red Cell Distribution Width 16.8 % (11.6-14.8); White Blood Cell Count 8.5 X10^3/uL (4.5-11.0)
[2024-08-23 05:57] LABS: Alanine Aminotransferase 31 IU/L (<50); Albumin 3.2 g/dL (3.5-5.0); Albumin Globulin Ratio 1.1 (1.0-2.8); Alkaline Phosphatase 57 U/L (38-126); Aspartate Aminotransferase 39 IU/L (17-59); BUN Creatinine Ratio 12.2 (6-22); Bilirubin Total 0.2 mg/dL (0.2-1.3); Blood Urea Nitrogen 10 mg/dL (9-20); Calcium 8.8 mg/dL (8.4-10.2); Carbon Dioxide 39 mmol/L (22-32); Chloride 100 mmol/L (98-107); Estimated Glomerular Filt Rate > 60 mL/min (>60); Globulin 2.9 g/dL (1.7-4.1); Glucose 92 mg/dL (80-110); HEMOLYSIS < 15 (0-50); Magnesium 2.2 mg/dL (1.6-2.3); Potassium 3.8 mmol/L (3.4-5.1); Sodium 139 mmol/L (137-145); Total Protein 6.1 g/dL (6.3-8.2)
[2024-08-23] MEDS: MAG HYDROX/ALUM/SIMETH 30 ML UDC PO ×2 (06:11→16:42)
[2024-08-23] MEDS: predniSONE 20 MG TABLET 40 MG PO (08:08)
[2024-08-23] MEDS: ACETAMINOPHEN 325 MG TABLET PO (08:09)
[2024-08-23] MEDS: clonazePAM 0.5 MG TABLET PO ×2 (08:12→20:37)
[2024-08-23] MEDS: HYDROMORPHONE 0.5 MG INJ IV (08:12)
[2024-08-23] MEDS: guaiFENesin Solution 100 MG/5 ML UDC 200 MG PO ×2 (08:24→20:43)
[2024-08-23] MEDS: LORATADINE 10 MG TABLET PO (08:25)
[2024-08-23] MEDS: BENZONATATE 100 MG CAPSULE PO ×2 (08:25→20:43)
[2024-08-23] MEDS: SODIUM CHLORIDE 0.9% FLUSH 10 ML IV ×2 (08:27→20:44)
--- NOTE | 2024-08-23 10:24 | CM.DPNOTE ---
Addendum entered by GILDA Aguilar 08/23/24 15:48: DEPUTY SHERIFF GENERALIST met with pt and JENNIFER Wink Cutter Operator Elizabeth (p [phone], [email or web address]) in room. Elizabeth advocates for pt to work with PT/OT during this admission to confirm safe for home with CGs. pt asked about getting physical copies of his records. TAYLOR Root provided release of information ppwk to give to pt to complete. DEPUTY SHERIFF GENERALIST gave to pt, pt appreciative. Pt reports hx with [facility] , wants HH but does not want referral there. preference for [facility] . Updated provider on pt's preference for HH, provider placed PT/OT orders. CARIDAD Burns sent initial referral information to [facility] . DEPUTY SHERIFF GENERALIST spoke with Jose from [facility] , happy to review. P: Pt preference is to dc home with [facility] pending acceptance. f2f and order needed. home w/family and JENNIFER to assist when medically stable/able to tolerate a diet; close outpatient f/u recommended. SL Original Note: DCP note DEPUTY SHERIFF GENERALIST reviewed EMR Per provider in morning rounds, will continue to try to advance diet but no plans to dc today. DEPUTY SHERIFF GENERALIST met with pt briefly in room. pt instantly anxious about discharging today. DEPUTY SHERIFF GENERALIST reported to pt that he would not be discharging today that this DEPUTY SHERIFF GENERALIST was just hoping to chat about the dcp with him. pt reported he was too confused from his pain meds and asked this DEPUTY SHERIFF GENERALIST to meet with him later this afternoon when his piano case and bench assembler with the [facility] Elizabeth would be here (2:30pm). pt reports having an OP appt Thursday that he plans to move. (what kind of provider?). Pt reports his current JENNIFER caregivers are through [place] (Thursday afternoon) and [facility] (Thu and 9am-3pm). pt reports too confused to talk more with this DEPUTY SHERIFF GENERALIST at this time. DEPUTY SHERIFF GENERALIST updated [facility] to keep an eye out for Elizabeth from [facility] for pt. No barriers identified at this time to patient's safe discharge home w/family and JENNIFER to assist when medically stable/able to tolerate a diet; close outpatient f/u recommended. CM team will plan to follow clinical course closely in case any DC needs or concerns arise. Lidia Crandall MSW
--- NOTE | 2024-08-23 14:54 | PM.PN.1 ---
Subjective Subjective Interval history: Summary: admitted with possible pancreatitis vs enteritis. Improving after bowel rest. Imaging revealed pacreas divisum. S: He is feeling little bit better today with regards to his breathing. Some bloating today with full liquids does not want to advance diet. Feels weak from baseline would like to work with therapies. Exam Vital Signs (past 8 hours): - 08/23/24 09:00 08/23/24 12:00 Temperature 97.3 F L 97.1 F L Pulse Rate 86 80 Respiratory Rate 13 12 Blood Pressure 152/72 H 146/79 H Pulse Oximetry 94 94 Oxygen Flow Rate 2 2 Fraction of Inspired Oxygen 24 SaO2/FiO2 Ratio 404 Oxygen Delivery Method Nasal Cannula Oxygen Flow Rate 2 Narrative Exam Narrative: NAD, alert and oriented. Fluent speech. Lungs are with diminished breath sounds globally and mild prolonged expiratory phase, normal rate and effort. Heart is regular, no murmur gallop or rub. Abdomen is soft, non distended. There is less epigastric tenderness than yesterday. Extremities are free of edema. Objective Labs 08/23/24 05:11 08/23/24 05:11 Labs: Laboratory Results - last 24 hr 08/23/24 05:11 WBC 8.5 RBC 3.68 L Hgb 9.5 L Hct 30.3 L MCV 82.5 MCH 25.8 L MCHC 31.3 RDW 16.8 H Plt Count 159 Neut % (Auto) 66.1 Lymph % (Auto) 20.6 L [place] % (Auto) 12.7 Eos % (Auto) 0.3 L Baso % (Auto) 0.3 Neut # (Auto) 5700 Lymph # (Auto) 1800 [place] # (Auto) 1100 H Eos # (Auto) 0 Baso # (Auto) 0 Sodium 139 Potassium 3.8 Chloride 100 Carbon Dioxide 39 H BUN 10 Creatinine 0.82 Estimated GFR > 60 BUN/Creatinine Ratio 12.2 Glucose 92 Calcium 8.8 Magnesium 2.2 Total Bilirubin 0.2 AST 39 ALT 31 Alkaline Phosphatase 57 Total Protein 6.1 L Albumin 3.2 L Globulin 2.9 Albumin/Globulin Ratio 1.1 [facility] Medical History History of tobacco abuse Fatigue Ventricular tachycardia (paroxysmal) Anemia Palpitations GERD with stricture HTN (hypertension) Insomnia (~2015) Hyperlipidemia (~2016) Anxiety (~2016) COPD (chronic obstructive pulmonary disease) (~2013) Asthma (Unknown) TIA (transient ischemic attack) (05/2014) Hematuria (~2014) Surgical History No pertinent past surgical history Family History Mother Age: 85 Hypertension Sister Age: 68 Cancer Social History household members: none Smoking Status: Current some day smoker Tobacco: How many years used: 47 quit status: considering quitting second hand exposure: No alcohol intake: former substance use type: does not use Assessment & Plan Assessment & Plan narrative: 1. Pancreatitis versus enteritis, present on admission and active. 2. Pancreas divisum, present on admission and active. 3. Bacterial pneumonia, present on admission and active. 4. Chronic hypoxic respiratory failure, present on admission and active. 5. Tobacco use disorder, present on admission and active. 6. Non-ambulatory for several years due to weakness and other vague issues, present on admission and active. Uses a power chair at home. 7. URI with cough, possible bacterial pneumonia (neg flu, Covid, and RSV), present on admission and active. 8. COPD with exacerbation Plan: -Advanced to full liquids will continue today. -Continue symptomatic treatment with analgesia and antiemetics. Patient refused oxycodone for pain, okay with PO dilaudid -ruled out high triglycerides (108) -Continue prednisone for COPD exacerbation, antibiotics for possible bacterial pneumonia this seems to be improving. JAYMIE: Likely 1-2 more days, pending further advancement of diet and improvement in cough / respiratory symptoms. Will likely discharge home (lives alone and has good family supprt, transfers to a power chair). Had therapy evaluations today. Time-Based Coding :: [TOTAL MINUTES] spent with patient and on the chart (including review of chart, obtaining history, exam, reviewing outside data, placing orders, documenting exam and treatment plan, and counseling patient) on [DATE]. Quality VTE Deep Vein Thrombosis/Pulmonary Embolism Present on Admission: No
--- NOTE | 2024-08-23 15:05 | PT.IIE ---
Current Diagnoses Noninfective gastroenteritis and colitis, unspecified (08/20/24) Surgical History (Last Reviewed 08/18/24 @ 12:55 by Chau Hogan MD) No pertinent past surgical history Medical History (Last Reviewed 08/18/24 @ 12:55 by Chau Hogan MD) Anemia Anxiety (~2015) Asthma (Unknown) COPD (chronic obstructive pulmonary disease) (~2013) Fatigue GERD with stricture Hematuria (~2014) History of tobacco abuse HTN (hypertension) Hyperlipidemia (~2015) Insomnia (~2015) Palpitations TIA (transient ischemic attack) (05/2014) Ventricular tachycardia (paroxysmal) Physical Therapy Inpatient Evaluation/Re-Eval M1 PT/OT-IP Prior Functional Status Start: 08/23/24 15:44 Freq: NEEDED Status: Active Protocol: Document 08/23/24 15:05 AB (Rec: 08/23/24 16:15 AB [id number]) Medical Review Prior Functional Status Medical History Reviewed Yes Communication able to make needs known Mobility and Gait pt stated that he has been sleeping on his recliner and just do a pivot transfer <>his power w/c to mobilize. pt stated that he has not walked for ~2 years Social History Household Members none Living Arrangements House Number of Floors (Floors) One Floor Number of Stairs To Enter/Railing? no steps to enter Home Environment Standard Height Toilet,Walk in Shower Home Equipment Front Wheel Walker,Straight Cane,Power Wheelchair/Scooter, Bedside Commode,Shower Seat without Backrest,Hand Held Shower,Grab Bars Near Toilet, Grab Bars In Shower Additional Social History Comment pt has careigvers that comes in MWF for ~ 5-6 hours pt has a transport w/c pt has an adjustable bed but sleeps on a recliner M2 PT-IP Current Condition Start: 08/23/24 15:44 Freq: NEEDED Status: Active Protocol: Document 08/23/24 15:05 AB (Rec: 08/23/24 16:15 AB [id number]) Physical Therapy Current Condition Current Condition Evaluation Date 08/23/24 Treatment Diagnosis acute pancreatitis vs enteritis; generalized weakness Onset Date 08/20/24 M3 PT-IP Subjective Start: 08/23/24 15:44 Freq: NEEDED Status: Active Protocol: Document 08/23/24 15:05 AB (Rec: 08/23/24 16:15 AB [id number]) Subjective Physical Therapy Visit Type Type Initial Evaluation Visit Start Time 15:05 Visit Stop Time 15:[address] ENGINEER FREIGHT Visits 0 Physical Therapy Visit Comments Patient Comments agreeable to do PT M4 PT-IP Mobility and Gait Start: 08/23/24 15:44 Freq: NEEDED Status: Active Protocol: Document 08/23/24 15:05 AB (Rec: 08/23/24 16:15 AB [id number]) PT-Bed Mobility Assessment Supine to Sit Supine to Sit Standby Assistance PT-Transfer Assessment Sit to and From Stand Sit to and from Stand Minimal Assistance Equipment Transfer Assistive Device None,Gait Belt Orthotic/Prosthetic Devices or Brace: No Transfers Transfer Destination Chair Transfer Technique Stand Step Pivot Transfer Ability Level of Assist Minimal Assistance,1 Person Assistance,Use of Upper Extremities Comments Mobility Comments pt in bed and agreed to do PT. BP: 143/76 O2 sat: 95% with 2L/min o2. obtained PLOF and home set up. pt completed supine to sit SBA. able to sit on EOB SBA. set up chair in front of pt, simulating pt's transfer at home. pt completed sit to stand holding on to chair arm rests min A and step transfer to chair min A. positioned pt on the chair. call light and table placed within reach. PT-Balance Assessment Sitting Balance and Reactions Static Sitting Balance Ability Normal Dynamic Sitting Balance Ability Good Standing Balance and Reactions Static Standing Balance Ability Fair Dynamic Standing Balance Ability Fair Device Used arm rests for support M5 PT-IP Objective Assessments Start: 08/23/24 15:44 Freq: NEEDED Status: Active Protocol: Document 08/23/24 15:05 AB (Rec: 08/23/24 16:15 AB [id number]) Orientation Orientation/Cognition Level of Alertness Alert Orientation Name,Place,Situation Language Function Ability No Deficits Noted Safety Awareness Decreased Safety Awareness Memory Description No Deficits Noted Gross Range of Motion Lower Extremity ROM Assessment Within Functional Limits Strength Lower Extremity Strength Assessment Within Functional Limits Comments Strength Comments (+) intentional tremors Muscle Tone Muscle Tone WNL Yes M6 PT-IP Treatment Start: 08/23/24 15:44 Freq: NEEDED Status: Active Protocol: Document 08/23/24 15:05 AB (Rec: 08/23/24 16:15 AB [id number]) Physical Therapy Treatment Education Education Provided Safety M7 PT-IP Assessment and Plan Start: 08/23/24 15:44 Freq: NEEDED Status: Active Protocol: Document 08/23/24 15:05 AB (Rec: 08/23/24 16:15 AB [id number]) PT Summary Assessment and Plan Potential Rehabilitation Potential Fair Status of Condition at Evaluation Evolving Summary Impairments Strength,Balance,Coordination, Sensation,Tone,Bed Mobility, Transfers,Gait,Activity Tolerance Assessment Summary pt is a 63 y/o M who presented with abdominal pain and vomiting. pt admitted for acute pancreatitis vs enteritis. pt requiring min A for step pivot transfers without AD. pt has not been ambulatory for 2 years per pt due to pt being easily fatigueable. pt has a caregiver that comes in 3x/wk to assist him. d/c plan depending on progress. will continue to assess. Goals Transfer Goal Independent Days to Meet Goals 5 Frequency of Treatment Frequency Of Treatment Once a Day Treatment Plan Physical Therapy Treatment Plan Bed Mobility Training,Transfer Training,Therapeutic Exercise ,Balance Retraining,Discharge Planning,Hot or Cold Pack, Neuromuscular Re-ed, Coordination Retraining Precautions Other Precautions O2 sat Recommendations To Nursing Amount of Assist Needed 1 Person Assist Discharge Recommendations PT Discharge Recommendations Home with Assistance,Home Health,SNF Rehab,Home vs SNF Transportation Needs at Discharge Private Vehicle,Wheelchair/ Cabulance
[2024-08-23] MEDS: ALBUTEROL/IPRATROPIUM 3 ML AMPUL INH ×2 (17:09→21:02)
[2024-08-23] MEDS: MONTELUKAST 10 MG TABLET PO (20:36)
[2024-08-23] MEDS: ATORVASTATIN 20 MG TABLET 10 MG PO (20:37)
[2024-08-23] MEDS: BUDESONIDE 0.5 MG/2 ML NEB INH (21:02)
--- NOTE | 2024-08-23 21:51 | PC.NURSE ---
NOC: During shift assessment, not able to NS flush PIV; inspected site, catheter bent and mostly out, not able to resolve. Removed PIV; catheter tip intact and patient tolerated well, applied pressure dressing w/gauze & coban. Contacted MD Connors re: PIV access; received communication order OK to leave PIV out. Pt sleeping comfortably, bed low/locked, belongings/call light within reach, plan of care continues.
[2024-08-24 07:18] LABS: Add Manual Diff / Slide Review NO; Basophils Absolute Auto 0 /uL (0-100); Basophils Percent Auto 0.1 % (0-2); Eosinophils Absolute Auto 0 /uL (0-450); Eosinophils Percent Auto 0.1 % (2-4); Hematocrit 30.6 % (41-53); Hemoglobin 9.5 g/dL (13.5-17.5); Lymphocytes Absolute Auto 1300 /uL (1100-4500); Lymphocytes Percent Auto 22.9 % (25-40); Mean Corpuscular HGB Conc 31.2 % (30-36); Mean Corpuscular Hemoglobin 25.7 PG (26-34); Mean Corpuscular Volume 82.5 fL (80-100); Monocytes Absolute Auto 500 /uL (0-900); Neutrophils Absolute Auto 3800 /uL (1500-7000); Neutrophils Percent Auto 67.9 % (50-75); Platelet Count 173 X10^3/uL (150-400); Red Blood Cell Count 3.71 X10^6/uL (4.5-5.9); Red Cell Distribution Width 16.7 % (11.6-14.8); White Blood Cell Count 5.7 X10^3/uL (4.5-11.0)
[2024-08-24 07:31] LABS: Alanine Aminotransferase 28 IU/L (<50); Albumin 3.1 g/dL (3.5-5.0); Albumin Globulin Ratio 1.1 (1.0-2.8); Alkaline Phosphatase 54 U/L (38-126); Aspartate Aminotransferase 34 IU/L (17-59); BUN Creatinine Ratio 17.4 (6-22); Bilirubin Total 0.2 mg/dL (0.2-1.3); Blood Urea Nitrogen 16 mg/dL (9-20); Calcium 8.6 mg/dL (8.4-10.2); Chloride 98 mmol/L (98-107); Estimated Glomerular Filt Rate > 60 mL/min (>60); Globulin 2.8 g/dL (1.7-4.1); Glucose 100 mg/dL (80-110); HEMOLYSIS < 15 (0-50); Magnesium 2.2 mg/dL (1.6-2.3); Potassium 4.3 mmol/L (3.4-5.1); Sodium 139 mmol/L (137-145); Total Protein 5.9 g/dL (6.3-8.2)
[2024-08-24 07:39] LABS: Carbon Dioxide 39 mmol/L (22-32)
--- NOTE | 2024-08-24 07:53 | P.PN_ITS ---
Subjective Subjective Interval history: S: Exam Vital Signs (past 8 hours): Fraction of Inspired Oxygen 28 SaO2/FiO2 Ratio 342 Oxygen Delivery Method Nasal Cannula Oxygen Flow Rate 2 Narrative Exam Narrative: NAD, alert and oriented. Fluent speech. Lungs are clear, normal rate and effort. Heart is regular, no murmur gallop or rub. Abdomen is soft, non distended. Extremities are free of edema. Objective Labs 08/24/24 06:29 08/24/24 06:29 Labs: Laboratory Results - last 24 hr 08/24/24 06:29 WBC 5.7 RBC 3.71 L Hgb 9.5 L Hct 30.6 L MCV 82.5 MCH 25.7 L MCHC 31.2 RDW 16.7 H Plt Count 173 Neut % (Auto) 67.9 Lymph % (Auto) 22.9 L [place] % (Auto) 9.0 Eos % (Auto) 0.1 L Baso % (Auto) 0.1 Neut # (Auto) 3800 Lymph # (Auto) 1300 [place] # (Auto) 500 Eos # (Auto) 0 Baso # (Auto) 0 Sodium 139 Potassium 4.3 Chloride 98 Carbon Dioxide 39 H BUN 16 Creatinine 0.92 Estimated GFR > 60 BUN/Creatinine Ratio 17.4 Glucose 100 Calcium 8.6 Magnesium 2.2 Total Bilirubin 0.2 AST 34 ALT 28 Alkaline Phosphatase 54 Total Protein 5.9 L Albumin 3.1 L Globulin 2.8 Albumin/Globulin Ratio 1.1 [facility] Medical History History of tobacco abuse Fatigue Ventricular tachycardia (paroxysmal) Anemia Palpitations GERD with stricture HTN (hypertension) Insomnia (~2015) Hyperlipidemia (~2015) Anxiety (~2015) COPD (chronic obstructive pulmonary disease) (~2013) Asthma (Unknown) TIA (transient ischemic attack) (05/2014) Hematuria (~2014) Surgical History No pertinent past surgical history Family History Mother Age: 85 Hypertension Sister Age: 68 Cancer Social History household members: none Smoking Status: Current some day smoker Tobacco: How many years used: 47 quit status: considering quitting second hand exposure: No alcohol intake: former substance use type: does not use Assessment & Plan Assessment & Plan narrative: 1. Pancreatitis versus enteritis, present on admission and active. 2. Pancreas divisum, present on admission and active. 3. Bacterial pneumonia, present on admission and active. 4. Chronic hypoxic respiratory failure, present on admission and active. 5. Tobacco use disorder, present on admission and active. 6. Non-ambulatory for several years due to weakness and other vague issues, present on admission and active. Uses a power chair at home. 7. URI with cough, possible bacterial pneumonia (neg flu, Covid, and RSV), present on admission and active. 8. COPD with exacerbation Plan: -Advanced to full liquids will continue today. -Continue symptomatic treatment with analgesia and antiemetics. Patient refused oxycodone for pain, okay with PO dilaudid -ruled out high triglycerides (108) -Continue prednisone for COPD exacerbation, antibiotics for possible bacterial pneumonia this seems to be improving. JAYMIE: Likely 1-2 more days, pending further advancement of diet and improvement in cough / respiratory symptoms. Will likely discharge home (lives alone and has good family supprt, transfers to a power chair). Time-Based Coding :: [TOTAL MINUTES] spent with patient and on the chart (including review of chart, obtaining history, exam, reviewing outside data, placing orders, documenting exam and treatment plan, and counseling patient) on [DATE]. Quality VTE Deep Vein Thrombosis/Pulmonary Embolism Present on Admission: No
[2024-08-24 08:00] VITALS: BP 146/66; PULSE 78; RESP 19; TEMP 35.9; O2SAT 97
[2024-08-24] MEDS: guaiFENesin Solution 100 MG/5 ML UDC 200 MG PO (08:31)
[2024-08-24] MEDS: predniSONE 20 MG TABLET 40 MG PO (08:31)
[2024-08-24] MEDS: MAG HYDROX/ALUM/SIMETH 30 ML UDC PO ×2 (08:31→12:29)
[2024-08-24] MEDS: clonazePAM 0.5 MG TABLET PO (08:31)
[2024-08-24] MEDS: BENZONATATE 100 MG CAPSULE PO (08:31)
[2024-08-24] MEDS: LORATADINE 10 MG TABLET PO (08:32)
[2024-08-24] MEDS: ALBUTEROL/IPRATROPIUM 3 ML AMPUL INH (09:21)
[2024-08-24] MEDS: BUDESONIDE 0.5 MG/2 ML NEB INH (09:21)
[2024-08-24 09:22] VITALS: PULSE 82; RESP 16; O2SAT 98
--- NOTE | 2024-08-24 11:32 | PM.DS.1 ---
History of Present Illness History of Present Illness Chief complaint: NV, SOB Narrative: From ED doctor: 63-year-old male with a history of COPD chronically on 2 L nasal cannula, comes into the ED via EMS for evaluation of abdominal pain nausea vomiting, states that this started at around 11:00 p.m. yesterday, states that it is intermittent in nature however at 1:00 a.m. he had worsening of his symptoms had an episode of nonbilious nonbloody emesis persistent pain diffusely to his abdomen therefore decided to come into the ED for further evaluation treatment. Denies any history of abdominal surgery, denies any other symptoms such as headache visual disturbances chest pain shortness of breath fever chills or any other GI/ symptoms at this time. Additional information: He notes the pain began last evening. There was no inciting event. He denies a known history of pancreatitis although he does have multiple episodes of abdominal pain in the past. His father had pancreatitis, described as chronic pancreatitis without a history of drinking. The patient was not use alcohol in over 10 years. He denies any blood per rectum or melena. He does have a chronic cycle of constipation alternating with loose stools. He denies gallstones. He also notes history of diverticulitis. No fevers, or chills. ED course: Lipase was elevated, imaging revealed a pancreas divisum but no clear pancreatitis. He will be treated with IV fluids and pain medications for pancreatitis. Discharge Providers Provider Date of admission: 08/20/24 12:48 Discharge Date: 08/24/24 Primary care physician: Saqib Oliva DO Consults: 08/23/24 14:39 Consult to Occupational Therapy Evaluate & Treat Comment: Physician Instructions: Evaluate and treat Consult to Physical Therapy Evaluate & Treat Comment: Physician Instructions: Evaluate and Treat Discharge provider: Chau Hogan MD Summary Hospital Course Discharge Diagnosis: 1. Pancreatitis versus enteritis, present on admission and improved. 2. Pancreas divisum, present on admission and active. 3. Bacterial pneumonia, present on admission and improved. 4. Chronic hypoxic respiratory failure, present on admission and active. 5. Tobacco use disorder, present on admission and active. 6. Non-ambulatory for several years due to weakness and other vague issues, present on admission and active. Uses a power chair at home. 7. URI with cough, possible bacterial pneumonia (neg flu, Covid, and RSV), present on admission and improved. 8. COPD with exacerbation, new and improved. 9. Right mid-lung infiltrate with a 6 week repeat chest x-ray versus CT recommended, present on admission and active. 10. 13 mm right lower lobe pulmonary nodule which appears to be relatively stable over time. Ongoing surveillance is recommended. Hospital Course: He was initially admitted with a concern for pancreatitis with abdominal pain as well as an elevated lipase and imaging finding consistent with enteritis versus pancreatitis. He was initially treated with antibiotics for possible pneumonia based on imaging and found to have pancreas divisum on his CT. He was chronic respiratory failure taking 2 L and had a cough which worsened during his for several days. He was a chronic smoker and does have COPD. He had a negative swab for flu, COVID, and RSV. He did get treated for COPD exacerbation with prednisone at a higher dose from his 10 daily. He was put on 40 day for about 5 days. Ultimately he was able to slowly advance his diet and did improve. He was chronically in a wheelchair. He lives alone. In the day of discharge he was quite apprehensive but he was reassured that he was at or near baseline and would continue to improve. He was have a lot of family in the area and they are encouraged to help participate in support. He also has coped caregiving. Home health will also be activated. Status at Discharge Cognitive/behavioral status at discharge: oriented Functional status at discharge: wheelchair bound Overall status at discharge: patient is progressing back to baseline Time Spent with Patient Time spent: Greater than 30 minutes Exam Vital Signs (past 8 hours): - 08/24/24 08:00 08/24/24 09:22 Temperature 96.7 F L Pulse Rate 78 82 Respiratory Rate 19 16 Blood Pressure 146/66 H Pulse Oximetry 97 98 Oxygen Delivery Method Nasal Cannula Oxygen Flow Rate 2 2 Fraction of Inspired Oxygen 28 SaO2/FiO2 Ratio 342 Oxygen Delivery Method Nasal Cannula Oxygen Flow Rate 2 Narrative Exam Narrative: NAD, alert and oriented. Fluent speech. 2 L of oxygen. Lungs are notable for mild wheezing but overall very good air movement, normal rate and effort. Heart is regular, no murmur gallop or rub. Abdomen is soft, non distended. Extremities are free of edema. Objective ECG Impression: Intervals [place] Rate: 106 P: 68 NM: 136 QRS: 75 QRSD: 92 T: 48 QT: 324 QTc: 430 Interpretive Statements Sinus tachycardia with premature atrial complexes Imaging Multiple studies:: Radiologist's impression: KUB: IMPRESSION: No evidence of bowel obstruction. Moderate to large stool volume Abdomen ultrasound: No gallbladder pathology. Abdomen CT: Suspected enteritis of the jejunum, with wall thickening. Gallbladder hydrops. Same day gallbladder ultrasound demonstrates no acute abnormality. Colonic diverticulosis without evidence of diverticulitis. Pancreatic divisum. Agree with preliminary report. Chest x-ray: No acute cardiopulmonary pathology. No significant changes from previous study. Chest CTA: No pulmonary embolus. There is irregular consolidative change seen involving the right mid lung laterally. Infection is suspected. - Please consider a follow-up in 6-8 weeks to monitor for resolution. There is a 13 mm right lower lobe pulmonary nodule seen, which is minimally increased in size over time. Although neoplasm is possible, a benign etiology is considered to be more likely. Labs 08/24/24 06:29 08/24/24 06:29 Labs: Laboratory Results - last 24 hr 08/24/24 06:29 WBC 5.7 RBC 3.71 L Hgb 9.5 L Hct 30.6 L MCV 82.5 MCH 25.7 L MCHC 31.2 RDW 16.7 H Plt Count 173 Neut % (Auto) 67.9 Lymph % (Auto) 22.9 L [place] % (Auto) 9.0 Eos % (Auto) 0.1 L Baso % (Auto) 0.1 Neut # (Auto) 3800 Lymph # (Auto) 1300 [place] # (Auto) 500 Eos # (Auto) 0 Baso # (Auto) 0 Sodium 139 Potassium 4.3 Chloride 98 Carbon Dioxide 39 H BUN 16 Creatinine 0.92 Estimated GFR > 60 BUN/Creatinine Ratio 17.4 Glucose 100 Calcium 8.6 Magnesium 2.2 Total Bilirubin 0.2 AST 34 ALT 28 Alkaline Phosphatase 54 Total Protein 5.9 L Albumin 3.1 L Globulin 2.8 Albumin/Globulin Ratio 1.1 [facility] Medical History History of tobacco abuse Fatigue Ventricular tachycardia (paroxysmal) Anemia Palpitations GERD with stricture HTN (hypertension) Insomnia (~2015) Hyperlipidemia (~2015) Anxiety (~2015) COPD (chronic obstructive pulmonary disease) (~2013) Asthma (Unknown) TIA (transient ischemic attack) (05/2014) Hematuria (~2014) Surgical History No pertinent past surgical history Family History Mother Age: 85 Hypertension Sister Age: 68 Cancer Social History household members: none Smoking Status: Current some day smoker Tobacco: How many years used: 47 quit status: considering quitting second hand exposure: No alcohol intake: former substance use type: does not use Discharge Assessment & Plan Assessment and Plan Assessment: 1. Pancreatitis versus enteritis, present on admission and improved. 2. Pancreas divisum, present on admission and active. 3. Bacterial pneumonia, present on admission and improved. 4. Chronic hypoxic respiratory failure, present on admission and active. 5. Tobacco use disorder, present on admission and active. 6. Non-ambulatory for several years due to weakness and other vague issues, present on admission and active. Uses a power chair at home. 7. URI with cough, possible bacterial pneumonia (neg flu, Covid, and RSV), present on admission and improved. 8. COPD with exacerbation, new and improved. 9. Right mid-lung infiltrate with a 6 week repeat chest x-ray versus CT recommended, present on admission and active. 10. 13 mm right lower lobe pulmonary nodule which appears to be relatively stable over time. Ongoing surveillance is recommended. Plan of Treatment: Discharge home, PCP within a week. Note that the patient does have a right mid lung infiltrate that would require repeat imaging in 6 weeks as well as a pulmonary nodule that requires ongoing surveillance. Discharge Plan Discharge Plan Patient Disposition: Home Provider Discharge Comment: Stable for discharge home with caregiver support and home health therapy. Discharge orders & Medications Prescriptions: New hydromorphone 2 mg Tablet 2 mg PO Q4HR PRN (Reason: Pain, Moderate (4-6)) Qty: 20 0RF simethicone [Gas Relief 80 (simethicone)] 80 mg Tablet,Chewable 80 mg PO QID PRN (Reason: Flatulence) Qty: 60 0RF Continued simvastatin 20 mg tablet 20 mg PO DAILY Qty: 90 3RF benzonatate 100 mg capsule 100 mg PO BID-TID PRN (Reason: Cough) Qty: 270 0RF (DME) Disabled Parking Permint See Rx Instructions .ROUTE .MEDSUPPLY Qty: 1 0RF Rx Instructions: I find this patient to be medically disabled and qualified for Disabled Parking as indicated and signed on the Accompanying Disabled Parking Application for individuals. albuterol sulfate [Ventolin HFA] 90 mcg/actuation HFA aerosol inhaler 1 - 2 puff PO Q4H PRN (Reason: for wheezing) Qty: 54 1RF Dulera 200-5 mcg/actuation HFA aerosol inhaler 2 puff PO BID Qty: 13 5RF clonazepam 0.5 mg tablet 0.5 mg PO TID Qty: 90 3RF ascorbate calcium (vitamin C) 500 mg tablet 500 mg PO DAILY ferrous gluconate 324 mg (38 mg iron) tablet 324 mg PO DAILY Qty: 90 1RF magnesium hydroxide 400 mg/5 mL Suspension 1 dose PO PRN PRN (Reason: Indigestion) Patient Comments: patient states uses often Mylanta nitroglycerin 0.3 mg tablet, sublingual 0.3 mg sublingual Q5-15M PRN (Reason: chest pain) Qty: 20 0RF Rx Instructions: do not exceed 3 doses per episode albuterol sulfate 2.5 mg /3 mL (0.083 %) Solution For Nebulization 2.5 mg continuous nebulization QID PRN (Reason: wheezing, sob, copd ) Rx Instructions: with ipratropium bromide solution for nebulization cetirizine 10 mg Tablet 10 mg PO DAILY PRN (Reason: allergy/asthma) Rx Instructions: in evening as needed ondansetron HCl 4 mg Tablet 4 mg PO Q6-8H PRN (Reason: Nausea/Vomiting) Rx Instructions: either PO tablet or ODT unsure which alum-mag hydroxide-simeth 400-400-40 mg/5 mL Suspension See Rx Instructions .ROUTE .COMPLEX MDD 120 ml PRN (Reason: heartburn/gas) Rx Instructions: [employer] Brand Mylanta Gas -- 400 mg Aluminum Hydroxide, 400mg Magnesium Hydroxide, 40mg Simethicone/10 ml (Suspension) 10 to 20 ml PRN with/after meals & bedtime as needed for heartburn/gas relief by Mouth Max dose 120 ml total/24 hours guaifenesin 400 mg Tablet 400 mg PO TID PRN (Reason: thin/clear mucus in lungs) multivit with min-folic acid 0.4 mg Tablet 1 tab PO DAILY nystatin 100,000 unit/mL suspension 5 ml PO QID PRN (Reason: thrush) ipratropium-albuterol 0.5 mg-3 mg(2.5 mg base)/3 mL solution for nebulization 3 ml INHALATION BID PRN (Reason: wheezing/ SOB/ copd) Rx Instructions: with albuterol solution for nebulization mupirocin 2 % ointment 1 applic topical BID PRN (Reason: treat infection/wound prn) Rx Instructions: apply to bed sore montelukast 10 mg tablet 10 mg PO BEDTIME prednisone 10 mg tablet 10 mg PO DAILY Qty: 30 0RF Rx Instructions: day 1-3: 40 mg once a day day 4-6: 30 mg once a day currently 05/14/24 on 10 mg (1 tab) Q Day day 7-9: 20 mg once a day day 10-12: 10 mg once a day Discontinued acetaminophen 325 mg Tablet 1 dose PO PRN PRN (Reason: pain) Follow up/Referrals: Saqib Oliva DO [Primary Care Provider] - Diet/Activity/Treatments Diet: Full Liquid Visit Report/Discharge Packet Instructions: DI for Pancreatitis, DI for Prescription Opioid Use, Hydromorphone, Simethicone Stand Alone Forms: Patient Portal/API, Stroke Signs & Symptoms Discharge Data Primary Care Provider: Saqib Oliva Quality VTE Deep Vein Thrombosis/Pulmonary Embolism Present on Admission: No
--- NOTE | 2024-08-24 12:23 | PT.IPTN ---
Current Diagnoses Noninfective gastroenteritis and colitis, unspecified (08/20/24) Physical Therapy Treatment Note M2 PT-IP Current Condition Start: 08/23/24 15:44 Freq: NEEDED Status: Active Protocol: Document 08/24/24 11:58 SP (Rec: 08/24/24 12:36 SP [id number]) Physical Therapy Current Condition Current Condition Evaluation Date 08/23/24 Treatment Diagnosis acute pancreatitis vs enteritis; generalized weakness Onset Date 08/20/24 M3 PT-IP Subjective Start: 08/23/24 15:44 Freq: NEEDED Status: Active Protocol: Document 08/24/24 11:58 SP (Rec: 08/24/24 12:36 SP [id number]) Subjective Physical Therapy Visit Type Type Treatment Note Visit Start Time 11:58 Visit Stop Time 12:23 Number of BENEFITS CONSULTING ANALYST Visits 1 Physical Therapy Visit Comments Patient Comments Pt agreeable working with BENEFITS CONSULTING ANALYST. Therapy Pain Assessment Location abdomen Scale Used feels bloated Description Aching,Tender,With Movement Pain Behaviors Facial Grimacing Pain Management Techniques Distraction,Modification of Treatment,Re-positioning M4 PT-IP Mobility and Gait Start: 08/23/24 15:44 Freq: NEEDED Status: Active Protocol: Document 08/24/24 11:58 SP (Rec: 08/24/24 12:36 SP [id number]) PT-Bed Mobility Assessment Supine to Sit Supine to Sit Independent,Head of Bed Elevated,Bedrails Sit to Supine Sit to Supine Independent,Head of Bed Elevated,Bedrails Scooting Scooting to Edge of Bed Independent PT-Transfer Assessment Sit to and From Stand Sit to and from Stand Standby Assistance,Contact Guard Assistance,Use of Upper Extremities Equipment Transfer Assistive Device None,Gait Belt Orthotic/Prosthetic Devices or Brace: No Transfers Transfer Destination Bed,Chair Transfer Technique Squat Pivot Transfer Ability Level of Assist Standby Assistance,Contact Guard Assistance,Use of Upper Extremities Comments Mobility Comments Pt in bed when arrived. Vitals : BP 149/67 L UE, SaO2 97% on 2L, decreased during mobility 90% on 2L, Mod I bed mobility, increased time for multiple stop rests for breath control. Squat pivot bed<>chair use BUEs on bed/chair arms for self support. Pt was up in bed end tx. It feels good to get up and moving again, have been so weak. Pt had call light and all needs in reach before left. Suggested to continue transfers with nursing for carryover strengthening and LE ex for progress pre standing support warm up: LAQ, marching with breath. Gait Assessment Comments Gait Comments not able to tolerate, transfer squat pivot only. Stair Climbing Assessment Comments Stair Climbing Comments no stairs need to assess PT-Balance Assessment Sitting Balance and Reactions Static Sitting Balance Ability Normal Dynamic Sitting Balance Ability Good Standing Balance and Reactions Static Standing Balance Ability Good Dynamic Standing Balance Ability Fair Device Used arm rests for support M5 PT-IP Objective Assessments Start: 08/23/24 15:44 Freq: NEEDED Status: Active Protocol: Document 08/23/24 15:05 AB (Rec: 08/23/24 16:15 AB [id number]) Orientation Orientation/Cognition Level of Alertness Alert Orientation Name,Place,Situation Language Function Ability No Deficits Noted Safety Awareness Decreased Safety Awareness Memory Description No Deficits Noted Gross Range of Motion Lower Extremity ROM Assessment Within Functional Limits Strength Lower Extremity Strength Assessment Within Functional Limits Comments Strength Comments (+) intentional tremors Muscle Tone Muscle Tone WNL Yes M6 PT-IP Treatment Start: 08/23/24 15:44 Freq: NEEDED Status: Active Protocol: Document 08/24/24 11:58 SP (Rec: 08/24/24 12:36 SP [id number]) Physical Therapy Treatment Exercises Exercises Seated Knee Flexion/Extension Education Education Provided Safety Other Treatments Other Treatment Performed marching 10 reps each LE, prep mobility strength before transfers. M7 PT-IP Assessment and Plan Start: 08/23/24 15:44 Freq: NEEDED Status: Active Protocol: Document 08/24/24 11:58 SP (Rec: 08/24/24 12:36 SP [id number]) PT Summary Assessment and Plan Potential Rehabilitation Potential Fair Status of Condition at Evaluation Evolving Summary Impairments Strength,Balance,Coordination, Sensation,Tone,Bed Mobility, Transfers,Gait,Activity Tolerance Progress Towards Goals Progressing Toward Goals,Slow Progress due to Activity Tolerance Assessment Summary Pt complete bed mobility Mod I , squat pivot transfer ( typical mobility home), pt being easily fatigueable, needed multiple sit rests for breath control SaO2 90-96% on 2L. Pt has a caregiver that comes in 3x/wk to assist him. Recommending HHPT 02/02 available, Care mgt stated family can assist him when medically cleared. Goals Transfer Goal Independent Days to Meet Goals 5 Frequency of Treatment Frequency Of Treatment Once a Day Treatment Plan Physical Therapy Treatment Plan Bed Mobility Training,Transfer Training,Therapeutic Exercise ,Balance Retraining,Discharge Planning,Hot or Cold Pack, Neuromuscular Re-ed, Coordination Retraining Other Recommendations and Next Treatment LE ex, transfer reps, standing Focus for time increase LE strength . Precautions Other Precautions O2 sat Recommendations To Nursing Amount of Assist Needed Standby Assistance,1 Person Assist Discharge Recommendations PT Discharge Recommendations Home with Assistance,Home with 24/7 Assist Available,Home Health Transportation Needs at Discharge Private Vehicle
--- NOTE | 2024-08-24 13:45 | OT.IP.EVAL ---
Current Diagnoses Noninfective gastroenteritis and colitis, unspecified (08/20/24) Past Medical History (Last Reviewed 08/18/24 @ 12:55 by Chau Hogan MD) Anemia Anxiety (~2015) Asthma (Unknown) COPD (chronic obstructive pulmonary disease) (~2013) Fatigue GERD with stricture Hematuria (~2014) History of tobacco abuse HTN (hypertension) Hyperlipidemia (~2015) Insomnia (~2015) Palpitations TIA (transient ischemic attack) (05/2014) Ventricular tachycardia (paroxysmal) Surgical History (Last Reviewed 08/18/24 @ 12:55 by Chau Hogan MD) No pertinent past surgical history Occupational Therapy Inpatient Evaluation/Re-Eval M1 PT/OT-IP Prior Functional Status Start: 08/23/24 15:44 Freq: NEEDED Status: Discharge Protocol: Document 08/24/24 15:08 CGR (Rec: 08/24/24 15:27 CGR [id number]) Medical Review Prior Functional Status Medical History Reviewed Yes Communication pt is an effective verbal communicator Mobility and Gait pt stated that he has been sleeping on his recliner and just do a pivot transfer <>his power w/c to mobilize. pt stated that he has not walked for ~2 years Activities of Daily Living and IADL's Pt states that he manages his own finances, and medications. He states he is usually able to perform his own dressing and typically does some cooking and cleaning and his caretakers do the rest. He has assist with sponge baths from his caretakers and his family typically does his grocery shopping. He is able to transfer from his w/c to his toilet and back IND. Social History Household Members none Living Arrangements House Number of Floors (Floors) One Floor Number of Stairs To Enter/Railing? no steps to enter Home Environment Standard Height Toilet,Walk in Shower Home Equipment Front Wheel Walker,Straight Cane,Power Wheelchair/Scooter, Bedside Commode,Shower Seat without Backrest,Hand Held Shower,Grab Bars Near Toilet, Grab Bars In Shower Employment Status Unemployed Additional Social History Comment pt has careigvers that comes in F for ~ 5-6 hours pt has a transport w/c pt has an adjustable bed but sleeps on a recliner M2 OT-IP Current Condition Start: 08/24/24 15:08 Freq: Status: Discharge Protocol: Document 08/24/24 15:08 CGR (Rec: 08/24/24 15:[address] [id number] Occupational Therapy Current Condition Current Condition Evaluation Date 08/24/24 Treatment Diagnosis pancreatitis vs enteritis, PNA Diagnosis Onset Date 08/20/24 M3 OT- IP Subjective and Pain Start: 08/24/24 15:08 Freq: Status: Discharge Protocol: Document 08/24/24 15:08 CGR (Rec: 08/24/24 15:[address] [facility] [id number]) OT- Subjective Occupational Therapy Visit Type Type Initial Evaluation Visit Start Time 13:21 Visit Stop Time 13:45 Notes Pt in with family but eager to work with OT services. OT Pain Assessment Pain When Pain Assessed At Rest Pain Present Pain Present Denied Pain M4 OT- IP ADL's Start: 08/24/24 15:08 Freq: Status: Discharge Protocol: Document 08/24/24 15:08 CGR (Rec: 08/24/24 15:[address] [facility] [id number]) OT [id number] Comments OT Self-Feeding Comments not meal time OT ADL-Grooming Comments OT Grooming Comments not performed OT ADL-Oral Care Comments Oral Care Comments not performed OT ADL-Dressing Comments OT Dressing Comments Pt is able to reach down and adjust socks. Given pt's poor endurance, pt declined to doff and don socks. OT ADL-Toileting Comments OT Toileting Comments not performed OT ADL-Bathing Comments OT Bathing Comments not performed M5 OT- IP IADL's Start: 08/24/24 15:08 Freq: Status: Discharge Protocol: Document 08/24/24 15:08 CGR (Rec: 08/24/24 15:[address] [facility] [address] [id number]) OT-Instrumental Activities of Daily Living Deficits IADL Deficits Identified No Deficits Home Safety Awareness Awareness of Need for Assistance at Home Good Awareness Ability to Problem Solve Emergency Able to Problem Solve Situations Medication Management Medication Management No Deficits Identified Money Management Money Management No Deficits Identified Meal Preparation Meal Preparation Caregiver Provides Assist Neck Skewer Neck Skewer Caregiver Provides Assist Driving Driving Comments Pt does not drive. Family assist with all transportation needs. M6 OT- IP Functional Cognition Start: 08/24/24 15:08 Freq: Status: Discharge Protocol: Document 08/24/24 15:08 CGR (Rec: 08/24/24 15:27 CGR [id number]) Cognitive Factors Limiting Selfcare Function Cognitive Ability Level of Alertness Alert Patient Orientation Name,Age,Birthday,Month,Date, Year,Day of Week,Place, Situation Attention Span Ability Capable of Focused Attention, Capable of Sustained Attention Ability to Follow Commands Able to Follow Multi-Step Commands Cognitive Comments Cognitive Assessment Comments Pt is very aware of his condition and how he needs to move to accomplish tasks. OT- Vision and Hearing OT- Hearing Assessment OT- Hearing Assessment WFL OT- Vision Assessment Visual Acuity Glasses All The Time Visual Attentiveness WFL Occular Pursuits WFL M7 OT- IP Mobility and Balance Start: 08/24/24 15:08 Freq: Status: Discharge Protocol: Document 08/24/24 15:08 CGR (Rec: 08/24/24 15:27 CGR [id number]) OT- Bed Mobility Assessment Supine to Sit Supine to Sit Assist Standby Assistance,Head of Bed Elevated Scooting Scooting to Edge of Bed Standby Assistance OT-Transfer Assessment Sit to and From Stand Sit to and from Stand Contact Guard Assistance Transfers Transfer Ability Contact Guard Assistance Technique Transfer Destination Bed,Chair Transfer Technique Stand Step Pivot Devices Transfer Assistive Devices Gait Belt Comments Mobility Comments Pt performed stand step pivot holding onto the chair rails as this is his prefered transfer at home. Pt was able to perform with only a small drop in o2 shayna from 93 to 91 and returned to 93 within 2 minutes. OT- Gait Assessment Comments Gait Ability Comments Pt does not ambulate at baseline OT- Balance Assessment Sitting Balance and Reactions Static Sitting Balance Ability Good Dynamic Sitting Balance Ability Good M8 OT- IP Objective Assessments Start: 08/24/24 15:08 Freq: Status: Discharge Protocol: Document 08/24/24 15:08 CGR (Rec: 08/24/24 15:27 CGR [id number]) OT Gross Range of Motion Upper Extremity Range of Motion Assessment Within Functional Limits OT Strength Upper Extremity Strength Assessment Within Functional Limits Comments Strength Comments grossly 4+/5 but fatigued quickly from performing UE activity and needing time to recover. OT- Coordination Assessment Upper Extremity Finger to Nose Test Within Functional Limits Finger Tapping Test Within Functional Limits Comments Coordination Comments Pt is WFL but of not B hand shake with activity but his L is worse than his right. OT Sensation Assessment Edema Edema Absent M9 OT- IP Assessment and Plan Start: 08/24/24 15:08 Freq: Status: Discharge Protocol: Document 08/24/24 15:08 CGR (Rec: 08/24/24 15:27 CGR [id number]) OT Summary Assessment and Plan Potential Rehabilitation Potential Good Analytic Complexity at Evaluation Moderate Summary OT Impairments Strength,Functional Mobility, Grooming,Dressing,Toileting, Bathing,Toilet Transfers, Activity Tolerance Progress Towards Goals Progressing Toward Goals Assessment Summary Pt presetns as a moderate complexity evaluation s/p admit for pancreatitis vs enteritis and PNA. Pt is highly motivated to participate but needs lots of rest breaks after minimal activity. He is on 2L o2 which is his baseline and he is stating in the low 90s throughout session. Pt was able to perform limited assessment and transfer to chair only d/t fatigue. Pt's endurance is impacting his ability to participate more fully with his personal care at this time. Pt will continue to benefit from therapy services. Goals Grooming Goal Independent Dressing Goal Independent Toileting Goal Independent Bathing Goal Independent Toilet Transfer Goal Independent Shower Transfer Goal Independent OT-Other Goals tranfers from w/c to recliner, bed or toielt. Days to Meet Goals 10 Frequency of Treatment Other frequency 5x per week Treatment Plan OT Treatment Plan ADL Training,Functional Mobility,Patient/Family Education,Discharge Planning Other Treatment Recommendations and Next endurance and energy Treatment Focus conservation, ADLs seated Discharge Recommendations OT Discharge Recommendations Home with Assistance Transportation Needs at Discharge Private Vehicle
--- NOTE | 2024-08-24 15:14 | CM.MNRNOTE ---
Pt is dressed and ready for discharge home with family. IV has been removed. Went over d/c instructions with Pt and Family-discussed d/c meds, time of last dose, reviewed stroke education, diet-increasing protein intake and eating easy to digest food, drinking plenty of fluids while taking narcotics to prevent constipation or dehydration and no driving while taking narcotics. Discussed intermediate plan as COPD advances (with Health Unit Clerk in room) and recommended Pt see his PCP next week and discuss Pt's wishes. Pt denied further questions and was taken out via w/c with Pt's home O2, family, and all belongings.
--- NOTE | 2024-08-24 15:52 | CM.DPNOTE ---
DCP Note SAP FUNCTIONAL ANALYST reviewed EMR Per provider in morning rounds, cleared to dc today home with HH. SAP FUNCTIONAL ANALYST spoke with Jose from [facility], can accept pt. will keep an eye out for fax with dc information SAP FUNCTIONAL ANALYST completed f2f and order. Per PT/OT notes, safe for home with HH and assistance. Per OT, pt can transfer indep he just gets SOB and needs to go slow. SAP FUNCTIONAL ANALYST met with pt mult times and family (mom and two sisters) once in room. Reviewed DCP. pt and family in agreement with preference to dc home with [facility]. SAP FUNCTIONAL ANALYST provided [facility] brochure. SAP FUNCTIONAL ANALYST and RN answered questions to best of ability. Mak hopeful to get increased CG services at home. Talked about LTC plan, Mak reports if he ever needs enough care that he would have to go to a facility he would rather be on hospice at home. Mak reports he has urinals and bedside commodes he can use to limit his transfer/activity levels at home. Pt and family deny other DCP questions or needs at this time. SAP FUNCTIONAL ANALYST faxed FS, PT/OT notes, f2f, order, and dc sum draft to [facility]. SAP FUNCTIONAL ANALYST lvms with JENNIFER CM October P [phone] and JENNIFER Retail Product Demo Specialist Elizabeth Levine ([phone] to update on pt's dc. SAP FUNCTIONAL ANALYST messaged TCM team to update them on pt's dc. P: pt to dc home today with [facility] to follow. no further CM needs identified at this time. CM team will continue to follow as needed GILDA Jarrell
== END 2024-08-24 15:20 | disposition home health service (06) | DRG 438 ==
LOC: ED 10:37 → AC 11:12
PROVIDERS: Hospitalist; Internal Medicine; Student in an Organized Health Care Education/Training Program; Admitting Provider Hospitalist; Emergency Provider Emergency Medicine; PCP Family Medicine; Referring Provider Emergency Medicine; Visit Provider Hospitalist
DX: K85.90 Acute pancreatitis without necrosis or infection, unspecified (principal); J15.9 Unspecified bacterial pneumonia; Q45.3 Other congenital malformations of pancreas and pancreatic duct; J96.11 Chronic respiratory failure with hypoxia; J44.1 Chronic obstructive pulmonary disease with (acute) exacerbation; J44.0 Chronic obstructive pulmonary disease with (acute) lower respiratory infection; K52.9 Noninfective gastroenteritis and colitis, unspecified; R53.1 Weakness; R91.1 Solitary pulmonary nodule; E78.5 Hyperlipidemia, unspecified; D64.9 Anemia, unspecified; Z86.73 Personal history of transient ischemic attack (TIA), and cerebral infarction without residual deficits; Z72.0 Tobacco use; Z99.3 Dependence on wheelchair; Z99.81 Dependence on supplemental oxygen; Z79.52 Long term (current) use of systemic steroids
CPT/HCPCS: 36415; 74018; 74177; 76705; 80048; 80053; 80061; 81001; 83605; 83690; 83735; 85025; 85027; 87633; 93005; 94640; 94762; 96361; 96374; 96375; 97162; 97166; 97530; 97535; 99285; G0378; J1171; J1885; J2405; Q9967

== ENCOUNTER 2024-09-15 23:23 | Emergency (ER) | payer MEDICARE, MEDICAID, SELFPAY ==
[2024-08-18 11:54] VITALS: BMI 24.9
[2024-09-15 23:25] VITALS: BP 139/75; PULSE 72; O2SAT 98
[2024-09-15 23:30] VITALS: BP 152/73; PULSE 121; O2SAT 93
--- NOTE | 2024-09-15 23:33 | EKG_ITS ---
[facility] [address], [place] [address] Test Date: 2024-09-15 Pat Name: Mak Rose Department: [facility] Room: Gender: Male [employer] Measurer: : 1960 Requested By: Order Number: [id number] Reading MD: Chau Hogan Measurements Intervals Dixie Rate: 131 P: 69 HI: 134 QRS: 82 QRSD: 80 T: 67 QT: 286 QTc: 422 Interpretive Statements Sinus tachycardia with premature atrial complexes Electronically Signed On 09-19-2024 8:29:59 PDT by Chau Hogan
[2024-09-15 23:34] VITALS: BP 139/75; PULSE 105; RESP 25; TEMP 37.1; O2SAT 95; BMI 24.7
--- NOTE | 2024-09-15 23:35 | ED_ITS ---
HPI - General Adult General Chief complaint: Abdominal Pain Stated complaint: abd pain Time Seen by Provider: 09/15/24 23:30 History of Present Illness HPI narrative: 63-year-old male with history of chronic oxygen use, had chronic cough recently increased and productive, admitted 2 weeks ago for pancreatitis, also having central upper abdominal pain, without obvious trauma. Arrived by EMS with shortness of breath, given breathing treatment during transport which seemed to improve his cough and shortness of breath symptoms. Denies sensation fevers and chills. 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 Related Data Home Medications Medication Instructions Recorded Confirmed ascorbate calcium (vitamin C) 500 500 mg PO DAILY 08/06/23 08/30/24 mg tablet aluminum-mag hydroxide-simethicone See Rx Instructions .Route 05/14/24 08/30/24 400 mg-400 mg-40 mg/5 mL oral susp .COMPLEX PRN heartburn/gas montelukast 10 mg tablet 10 mg PO BEDTIME 05/14/24 08/30/24 multivitamin with minerals-folic 1 tab PO DAILY 05/14/24 08/30/24 acid 0.4 mg tablet mupirocin 2 % topical ointment 1 applic topical BID PRN treat 05/14/24 08/30/24 infection/wound prn nystatin 100,000 unit/mL oral 5 ml PO QID PRN thrush 05/14/24 08/30/24 suspension cetirizine 10 mg tablet 10 mg PO BEDTIME allergy/asthma 08/25/24 08/30/24 guaifenesin 100 mg/5 mL oral liquid 200 mg PO Q4H PRN cough 08/25/24 08/30/24 ipratropium bromide 0.02 % 2.5 ml inhalation QID 08/25/24 08/30/24 solution for inhalation mecobalamin (vitamin B12) 1,000 1,000 mcg PO DAILY 08/25/24 08/30/24 mcg chewable tablet ondansetron 4 mg disintegrating 4 mg PO Q6-8H PRN nausea and 08/25/24 08/30/24 tablet vomiting Previous Rx's Medication Instructions Recorded ferrous gluconate 324 mg (38 mg 324 mg PO DAILY #90 tabs 03/28/24 iron) tablet benzonatate 100 mg capsule 100 mg PO BID-TID PRN Cough #270 05/19/24 caps Disabled Parking Permint #1 ea 07/01/24 mometasone-formoterol HFA 200 2 puff PO BID #13 grams 07/22/24 mcg-5 mcg/actuation aerosol inhaler (Dulera) hydromorphone 2 mg tablet 2 mg PO Q4HR PRN Pain, Moderate 08/24/24 (4-6) #20 tabs simethicone 80 mg chewable tablet 80 mg PO QID PRN Flatulence #60 08/24/24 (Gas Relief 80 (simethicone)) tabs clonazepam 0.5 mg tablet 0.5 mg PO TID #90 tabs 08/25/24 nitroglycerin 0.3 mg sublingual 0.3 mg sublingual Q5-15M PRN chest 08/25/24 tablet pain #20 tabs prednisone 10 mg tablet 40 mg (4 x 10 mg) PO DAILY #30 tabs 08/25/24 simvastatin 20 mg tablet 20 mg PO QPM #90 tabs 08/25/24 albuterol sulfate 2.5 mg/3 mL 2.5 mg (3 mL) inhalation QID PRN 09/09/24 (0.083 %) solution for nebulization shortness of breath or wheezing #180 mL albuterol sulfate 90 mcg/actuation 1 - 2 puff PO Q4H PRN for wheezing 09/09/24 aerosol inhaler (Ventolin HFA) #54 grams ipratropium bromide 0.02 % 2.5 ml inhalation QID PRN 09/09/24 solution for inhalation shortness of breath or wheezing #150 mL Allergies Allergy/AdvReac Type Severity Reaction Status Date / Time cinnamon [CINNAMON] Allergy Severe RESP Verified 08/30/24 11:42 PROBLEMS AND SWELLING Sulfa (Sulfonamide Allergy Severe anaphylacti Verified 08/30/24 11:42 Antibiotics) c [SULFA (SULFONAMIDE ANTIBIOTICS)] fluticasone [FLUTICASONE] Allergy Intermediate FEELS Verified 08/30/24 11:42 LIKE FIRE IN THE LUNGS trimethoprim [TRIMETHOPRIM] Allergy Unknown Patient Verified 08/30/24 11:42 can't remember dextromethorphan AdvReac Severe Difficulty Verified 08/30/24 11:42 Breathing fentanyl AdvReac Severe Difficulty Verified 08/30/24 11:42 Breathing codeine [CODEINE] AdvReac Intermediate violent Verified 08/30/24 11:42 doxycycline [DOXYCYCLINE] AdvReac Mild N/V Verified 08/30/24 11:42 Patient History Medical History (Updated 09/16/24 @ 01:37 by Eric Cardoza MD) Lung nodule seen on imaging study History of tobacco abuse Fatigue Ventricular tachycardia (paroxysmal) Anemia Palpitations GERD with stricture HTN (hypertension) Insomnia (~2015) Hyperlipidemia (~2015) Anxiety (~2015) COPD (chronic obstructive pulmonary disease) (~2013) Asthma (Unknown) TIA (transient ischemic attack) (05/2014) Hematuria (~2014) Surgical History No pertinent past surgical history Family History Mother Age: 86 Hypertension Sister Age: 69 Cancer Social History household members: none Smoking Status: Current some day smoker Tobacco: How many years used: 47 quit status: considering quitting second hand exposure: No alcohol intake: former substance use type: does not use Smoking Status: Current some day smoker tobacco type: cigarettes alcohol intake frequency: holidays/special occasions only Exam Narrative Exam Narrative: GENERAL: Well-developed patient, in mild distress. HEAD: Atraumatic. Normocephalic. EYES: Pupils equal round and reactive. Extraocular motions intact. No scleral icterus. No injection or drainage. ENT: Nose without bleeding, purulent drainage. Throat without erythema, tonsillar hypertrophy or exudate. Airway patent. NECK: Trachea midline. Non tender CARDIOVASCULAR: Regular rate and rhythm without murmurs, gallops, or rubs. RESPIRATORY: Clear to auscultation. Breath sounds equal bilaterally. No wheezes, rales, or rhonchi. GASTROINTESTINAL: Abdomen soft, non-tender, nondistended. EXTREMITIES: No edema or joint tenderness. BACK: Nontender without deformity or crepitance. No flank tenderness. NEURO: AOx3. Motor functions grossly nonfocal SKIN: No rash or erythema of visible areas Initial Vital Signs Initial Vital Signs: Vital Signs Pulse Rate 72 09/15/24 23:25 Blood Pressure 139/75 03/06/25 23:25 Pulse Oximetry 98 09/15/24 23:25 Course Orders Ordered: ED Orders 09/15/24 23:20 Complete Blood Count AUTO DIFF Stat Comprehensive Metabolic Panel Stat Lipase Stat Magnesium Stat NT-proBNP (BNP-Adult 18+) Stat PTT Partial Thromboplastin Negro Stat Prothrombin Time INR Stat Troponin & CK Cardiac Panel Stat 09/15/24 23:28 EKG-12 Lead Stat 09/15/24 23:35 XR chest 1V Stat 09/16/24 00:12 CT abdomen pelvis w con Stat 09/16/24 00:13 RT Consult Eval and Treat NOW 09/16/24 01:14 Covid-19 + FLU A/B + RSV - PCR Stat Discontinued Medications Albuterol (Albuterol 2.5 Mg/3 Ml Neb (Adult)) 2.5 mg INH NOW ONE Stop: 09/16/24 00:20 Last Admin: 09/16/24 01:33 Dose: 2.5 mg Documented By: Aspirin (Aspirin 81 Mg Chew Tab) 324 mg PO NOW ONE Stop: 09/15/24 23:36 Last Admin: 09/16/24 01:04 Dose: Not Given Documented By: LAEH Budesonide (Budesonide 0.5 Mg/2 Ml Neb) 0.5 mg INH NOW ONE Stop: 09/16/24 00:20 Last Admin: 09/16/24 00:25 Dose: 0.5 mg Documented By: Vital Signs Vital signs: Vital Signs - 8 hr 09/15/24 23:25 09/15/24 23:25 09/15/24 23:30 Temperature Pulse Rate 72 Respiratory Rate Blood Pressure 139/75 152/73 H Pulse Oximetry 98 Oxygen Delivery Method Oxygen Flow Rate 09/15/24 23:30 09/15/24 23:34 09/16/24 00:00 Temperature 98.8 F Pulse Rate 121 H 105 H 124 H Respiratory Rate 25 H Blood Pressure 139/75 Pulse Oximetry 93 95 91 Oxygen Delivery Method Nasal Cannula Oxygen Flow Rate 2 09/16/24 00:00 09/16/24 00:30 09/16/24 00:30 Temperature Pulse Rate 118 H Respiratory Rate Blood Pressure 128/67 117/63 Pulse Oximetry 92 Oxygen Delivery Method Oxygen Flow Rate 09/16/24 01:05 09/16/24 01:30 09/16/24 01:41 Temperature Pulse Rate 117 H 109 H 106 H Respiratory Rate Blood Pressure Pulse Oximetry 91 93 93 Oxygen Delivery Method Nasal Cannula Oxygen Flow Rate 2 09/16/24 01:41 Temperature Pulse Rate Respiratory Rate 22 Blood Pressure 134/69 Pulse Oximetry Oxygen Delivery Method Oxygen Flow Rate Medical Decision Making Lab Data Lab results reviewed: Yes I reviewed the patient's lab results. Lab results narrative: White blood cell count 85347, hemoglobin 12.2, platelets adequate. BUN 25 with creatinine 0.96 normal. Glucose 114. Electrolytes unremarkable, serum CO2 35. BNP normal. Troponin negative. Lipase 669 mild elevation. Liver functions normal. 09/15/24 23:20 09/15/24 23:20 Labs: Lab Results 09/15/24 09/16/24 Range/Units 23:20 01:14 WBC 16.0 H (4.5-11.0) X10^3/uL RBC 4.65 (4.5-5.9) X10^6/uL Hgb 12.2 L (13.5-17.5) g/dL Hct 38.8 L (41-53) % MCV 83.5 (80-100) fL MCH 26.3 (26-34) PG MCHC 31.5 (30-36) % RDW 18.8 H (11.6-14.8) % Plt Count 166 (150-400) X10^3/uL Neut % (Auto) 72.1 (50-75) % Lymph % (Auto) 16.4 L (25-40) % [place] % (Auto) 10.3 (3-14) % Eos % (Auto) 0.5 L (2-4) % Baso % (Auto) 0.7 (0-2) % Neut # (Auto) 50158 H (1384-8457) /uL Lymph # (Auto) 2600 (6879-9878) /uL [place] # (Auto) 1600 H (0-900) /uL Eos # (Auto) 100 (0-450) /uL Baso # (Auto) 100 (0-100) /uL PT 10.5 (9.4-12.5) SECONDS INR 0.9 (0.9-1.3) APTT 35 (25.1-36.5) SECONDS Sodium 142 (137-145) mmol/L Potassium 4.3 (3.4-5.1) mmol/L Chloride 96 L (98-107) mmol/L Carbon Dioxide 35 H (22-32) mmol/L BUN 25 H (9-20) mg/dL Creatinine 0.96 (0.66-1.25) mg/dL Estimated GFR > 60 (>60) mL/min BUN/Creatinine Ratio 26.0 H (6-22) Glucose 114 H (80-110) mg/dL Calcium 9.7 (8.4-10.2) mg/dL Magnesium 1.8 (1.6-2.3) mg/dL Total Bilirubin 0.5 (0.2-1.3) mg/dL AST 37 (17-59) IU/L ALT 22 (<50) IU/L Alkaline Phosphatase 57 (38-126) U/L Total Creatine Kinase 37 L (55-170) U/L Troponin I < 0.012 (0.01-0.034) ng/mL NT-Pro-B Natriuret Pep 102 (<125) pg/mL Total Protein 7.6 (6.3-8.2) g/dL Albumin 4.1 (3.5-5.0) g/dL Globulin 3.5 (1.7-4.1) g/dL Albumin/Globulin Ratio 1.2 (1.0-2.8) Lipase 669 H (23-300) U/L SARS-CoV-2 (PCR) Negative (Negative) Influenza A (RT-PCR) Flu a negative (NEGATIVE) Influenza B (RT-PCR) Flu b negative (NEGATIVE) RSV (PCR) Negative (Negative) ECG Data Attestation: I personally reviewed and interpreted this ECG as follows: Interpretation: Sinus tachycardia with ventricular response rate 130. Frequent PACs noted. [place] 134, QRS 80, QTC 422. MDM Narrative Medical decision making narrative: 63-year-old male with recent admission for pancreatitis has ongoing upper abdominal discomfort, also chronic cough, chronic oxygen at home, recently more productive with some increased shortness of breath, breathing treatment given by EMS during transport with some improvement. At baseline supplemental oxygen. Chest x-ray, EKG labs pending. Mild tenderness epigastrium. Mild lipase elevation. CT abdomen and pelvis ordered. EKG without obvious ischemic changes, troponin negative. Lipase normal. Chest x-ray unremarkable. GFR favorable, CT abdomen and pelvis with IV contrast ordered. CT abdomen and pelvis shows stool burden, no obstructive intestinal patterns, diverticulosis without diverticulitis noted. See radiology report. Offered lactulose, patient prefers to resume his previous regimen of MiraLax/prune juice. Consider prednisone dose, could consider higher dose of 40 mg daily for 2 days, 30 mg for 2 days, 20 mg for 2 days, then resuming 10 mg daily schedule, patient has home supply to try this. Patient has inhalers, denies need for any refills, encouraged to take his medications as directed. Follow up with his sterile process coordinator advised with scheduled appointment this Thursday and a few days as planned. Return precautions discussed. Improved. He would like to go home. Discharged home with family. Discharge Plan Departure Patient Disposition: Home Clinical Impression: Shortness of breath, Abdominal pain, COPD exacerbation Activity Restrictions/Additional Instructions: Mr Oliva, Recent admission for pancreatitis, with abdominal discomfort. CT abdomen and pelvis tonight did not show acute pancreatitis changes tonight, stool burden was noted without obstructive changes, no acute changes today. Shortness of breath also noted, chronic prednisone at 10 mg with home supply of 20 mg tablet prednisone, and inhalers, using chronic oxygen. You had breathing treatments here that improved your symptoms, possible exacerbation of your COPD. Consider prednisone pulse at 40 mg a day for a couple of days, then 30 mg for couple of days then 20 mg for couple of days, back to your 10 mg daily regimen. Chest x- ray tonight showed no obvious pneumonia changes per Radiology report. Follow up with your sterile process coordinator on Thursday as planned. Regarding the stool burden and possible component of constipation, you declined a lactulose prescription for now, continue using your MiraLax and prune juice, as this might be a component of abdominal discomfort as well. Follow up with your sterile process coordinator this Thursday as planned. Return earlier to this/nearest emergency department for any change worsening symptoms or any concerns prior. Thank you for allowing our team to evaluate you tonight. Prescriptions: No Action benzonatate 100 mg capsule 100 mg PO BID-TID PRN (Reason: Cough) Qty: 270 0RF (DME) Disabled Parking Permint See Rx Instructions .ROUTE .MEDSUPPLY Qty: 1 0RF Rx Instructions: I find this patient to be medically disabled and qualified for Disabled Parking as indicated and signed on the Accompanying Disabled Parking Application for individuals. Dulera 200-5 mcg/actuation HFA aerosol inhaler 2 puff PO BID Qty: 13 5RF cetirizine 10 mg tablet 10 mg PO BEDTIME ipratropium bromide 0.02 % solution 2.5 ml inhalation QID Rx Instructions: use with the albuterol inhalation solution clonazepam 0.5 mg tablet 0.5 mg PO TID Qty: 90 3RF Rx Instructions: 08/25/24:Mak states he is only taking the Clonazepam twice daily on a regular basis but needs the option to take it TID if needed when anxiety is especially high. guaifenesin 100 mg/5 mL liquid 200 mg PO Q4H PRN (Reason: cough) prednisone 10 mg tablet 40 mg PO DAILY Qty: 30 0RF nitroglycerin 0.3 mg tablet, sublingual 0.3 mg sublingual Q5-15M PRN (Reason: chest pain) Qty: 20 0RF Rx Instructions: do not exceed 3 doses per episode ondansetron 4 mg tablet,disintegrating 4 mg PO Q6-8H PRN (Reason: nausea and vomiting) simvastatin 20 mg tablet 20 mg PO QPM Qty: 90 3RF albuterol sulfate 2.5 mg /3 mL (0.083 %) solution for nebulization 2.5 mg inhalation QID PRN (Reason: shortness of breath or wheezing) Qty: 180 11RF albuterol sulfate [Ventolin HFA] 90 mcg/actuation HFA aerosol inhaler 1 - 2 puff PO Q4H PRN (Reason: for wheezing) Qty: 54 11RF ipratropium bromide 0.02 % solution 2.5 ml inhalation QID PRN (Reason: shortness of breath or wheezing) Qty: 150 11RF ascorbate calcium (vitamin C) 500 mg tablet 500 mg PO DAILY ferrous gluconate 324 mg (38 mg iron) tablet 324 mg PO DAILY Qty: 90 1RF mecobalamin (vitamin B12) 1,000 mcg tablet,chewable 1,000 mcg PO DAILY alum-mag hydroxide-simeth 400-400-40 mg/5 mL Suspension See Rx Instructions .ROUTE .COMPLEX MDD 120 ml PRN (Reason: heartburn/gas) Rx Instructions: [employer] Brand Mylanta Gas -- 400 mg Aluminum Hydroxide, 400mg Magnesium Hydroxide, 40mg Simethicone/10 ml (Suspension) 10 to 20 ml PRN with/after meals & bedtime as needed for heartburn/gas relief by Mouth Max dose 120 ml total/24 hours multivit with min-folic acid 0.4 mg Tablet 1 tab PO DAILY nystatin 100,000 unit/mL suspension 5 ml PO QID PRN (Reason: thrush) mupirocin 2 % ointment 1 applic topical BID PRN (Reason: treat infection/wound prn) Rx Instructions: apply to bed sore montelukast 10 mg tablet 10 mg PO BEDTIME hydromorphone 2 mg Tablet 2 mg PO Q4HR PRN (Reason: Pain, Moderate (4-6)) Qty: 20 0RF simethicone [Gas Relief 80 (simethicone)] 80 mg Tablet,Chewable 80 mg PO QID PRN (Reason: Flatulence) Qty: 60 0RF Referrals: Saqib Oliva DO [Primary Care Provider] - Stand Alone Forms: Patient Portal/API/Survey
--- NOTE | 2024-09-15 23:35 | DI.RAD.S_ITS ---
PROCEDURE: XR CHEST 1V INDICATIONS: chest pain TECHNIQUE: One view of the chest was acquired. COMPARISON: [facility], CR, XR CHEST 1V, 08/10/2024, 9:07. FINDINGS: Surgical changes and devices: None. Lungs and pleura: Chronic scarring and atelectasis in right upper lobe is again seen unchanged from prior study. Hyperinflation and chronic emphysematous changes are seen. No pleural effusions or pneumothorax. Mediastinum: Mediastinal contours appear normal. Heart size is normal. Bones and chest wall: No suspicious bony lesions. Overlying soft tissues appear unremarkable. IMPRESSION: No acute cardiopulmonary pathology. No significant changes from previous study. Dictated by: Giuseppe Fonseca M.D. on 09/16/2024 at 0:09 Approved by: Giuseppe Fonseca M.D. on 09/16/2024 at 0:10
[2024-09-15 23:43] LABS: Add Manual Diff / Slide Review NO; Basophils Absolute Auto 100 /uL (0-100); Basophils Percent Auto 0.7 % (0-2); Eosinophils Absolute Auto 100 /uL (0-450); Eosinophils Percent Auto 0.5 % (2-4); Hematocrit 38.8 % (41-53); Hemoglobin 12.2 g/dL (13.5-17.5); INR 0.9 (0.9-1.3); Lymphocytes Absolute Auto 2600 /uL (1100-4500); Lymphocytes Percent Auto 16.4 % (25-40); Mean Corpuscular HGB Conc 31.5 % (30-36); Mean Corpuscular Hemoglobin 26.3 PG (26-34); Mean Corpuscular Volume 83.5 fL (80-100); Monocytes Absolute Auto 1600 /uL (0-900); Monocytes Percent Auto 10.3 % (3-14); Neutrophils Absolute Auto 11500 /uL (1500-7000); Neutrophils Percent Auto 72.1 % (50-75); Platelet Count 166 X10^3/uL (150-400); Prothrombin Time 10.5 SECONDS (9.4-12.5); Red Blood Cell Count 4.65 X10^6/uL (4.5-5.9); Red Cell Distribution Width 18.8 % (11.6-14.8)
[2024-09-15 23:45] LABS: PTT Partial Thromboplastin Tim 35 SECONDS (25.1-36.5)
[2024-09-15 23:47] LABS: Alanine Aminotransferase 22 IU/L (<50); Albumin 4.1 g/dL (3.5-5.0); Albumin Globulin Ratio 1.2 (1.0-2.8); Alkaline Phosphatase 57 U/L (38-126); Aspartate Aminotransferase 37 IU/L (17-59); Bilirubin Total 0.5 mg/dL (0.2-1.3); Blood Urea Nitrogen 25 mg/dL (9-20); Calcium 9.7 mg/dL (8.4-10.2); Chloride 96 mmol/L (98-107); Creatine Kinase 37 U/L (55-170); Estimated Glomerular Filt Rate > 60 mL/min (>60); Globulin 3.5 g/dL (1.7-4.1); Glucose 114 mg/dL (80-110); Lipase 669 U/L (23-300); Magnesium 1.8 mg/dL (1.6-2.3); Sodium 142 mmol/L (137-145); Total Protein 7.6 g/dL (6.3-8.2)
[2024-09-15 23:54] LABS: Carbon Dioxide 35 mmol/L (22-32)
[2024-09-15 23:58] LABS: NT-proBNP (BNP-Adult 18+) 102 pg/mL (<125); Troponin I < 0.012 ng/mL (0.01-0.034)
[2024-09-16] VITALS: BP 128/67; PULSE 124; O2SAT 91
[2024-09-16] LABS: HEMOLYSIS 56 (0-50)
[2024-09-16 00:01] LABS: Potassium 4.3 mmol/L (3.4-5.1)
--- NOTE | 2024-09-16 00:12 | DI.CT.S_ITS ---
PROCEDURE: CT ABDOMEN PELVIS W CON INDICATIONS: abd pain, hx pancreatitis TECHNIQUE: After the administration of intravenous contrast, axial sections acquired from the lung bases to the pubic symphysis. Coronal and sagittal reformats were performed. For radiation dose reduction, the following was used: automated exposure control, adjustment of mA and/or kV according to patient size. COMPARISON: [facility], CT, CT ABDOMEN PELVIS W CON, 08/18/2024, 5:27. FINDINGS: Image quality: Diagnostic. Lower Chest: No significant findings. ABDOMEN: Liver: No solid mass. Likely sub cm cyst is again seen in right hepatic lobe. Gallbladder: No radiopaque gallstones or wall thickening. Biliary ducts: No biliary dilation. Pancreas: No ductal dilation. No discrete pancreatic mass or peripancreatic inflammatory changes. Spleen: Size is within normal limits. Adrenal Glands: No adrenal nodules. Kidneys and Ureters: 8 mm nonobstructing stone is again seen in lower pole right kidney. No hydronephrosis. No solid mass. No complex renal cystic lesion which requires follow up. Stomach and Bowel: Normal colonic caliber, without significant wall thickening. Moderate fecal stasis in the colon is seen. Appendix is visualized and is within normal limits. Sigmoid diverticulosis without CT evidence of acute diverticulitis. Peritoneum: No abnormal intraperitoneal fluid. No free air. Ventral Wall: No significant ventral hernia. Abdominal Nodes: No retroperitoneal or mesenteric adenopathy by size criteria. Vessels: Aorta and inferior vena cava are normal in size. PELVIS: Pelvic Organs: Unremarkable. Bladder: No bladder wall thickening, accounting for underdistention. Pelvic Nodes: No enlarged lymph nodes. Miscellaneous: No inguinal hernias are seen. Bones: No aggressive osseous abnormality. IMPRESSION: 1. No obstruction or abnormal bowel wall thickening. Normal appendix. Moderate constipation. Sigmoid diverticulosis without CT evidence of acute diverticulitis. No abscess collection. No free fluid free air. 2. No discrete pancreatic mass or peripancreatic inflammatory changes. Pancreatic divisum unchanged from prior study. 3. Nonobstructing right renal calculus. No hydronephrosis or hydroureter. Dictated by: Giuseppe Fonseca M.D. on 09/16/2024 at 1:14 Approved by: Giuseppe Fonseca M.D. on 09/16/2024 at 1:17
[2024-09-16] MEDS: BUDESONIDE 0.5 MG/2 ML NEB INH (00:25)
[2024-09-16 00:30] VITALS: BP 117/63; PULSE 118; O2SAT 92
[2024-09-16 01:05] VITALS: PULSE 117; O2SAT 91
[2024-09-16 01:30] VITALS: PULSE 109; O2SAT 93
[2024-09-16] MEDS: ALBUTEROL 2.5 MG/3 ML NEB (ADULT) INH (01:33)
[2024-09-16 01:41] VITALS: BP 134/69; PULSE 106; RESP 22; O2SAT 93
[2024-09-16 02:00] LABS: Influenza A - CEPHEID Flu A NEGATIVE (NEGATIVE); Influenza B - CEPHEID Flu B NEGATIVE (NEGATIVE); Respiratory Syncytial Virus Negative (Negative)
[2024-09-16 02:07] LABS: COVID-19 CEPHEID 4-PLEX PCR Negative (Negative)
== END 2024-09-16 02:14 | disposition home or self-care (01) ==
PROVIDERS: Emergency Provider Emergency Medicine; PCP Family Medicine
DX: R06.02 Shortness of breath (principal); R10.10 Upper abdominal pain, unspecified; J44.1 Chronic obstructive pulmonary disease with (acute) exacerbation
CPT/HCPCS: 0241U; 71045; 74177; 80053; 82550; 83690; 83735; 83880; 84484; 85025; 85610; 85730; 93005; 94640; 99285; J7613; Q9967

== ENCOUNTER 2024-09-18 10:05 | Emergency (ER) | payer MEDICARE, MEDICAID, SELFPAY ==
[2024-08-18 11:54] VITALS: BMI 24.9
[2024-09-18] VITALS (26 sets, daily range): BP systolic 122–191; BP diastolic 60–77; PULSE 87–112; RESP 16–34; TEMP 36.9; O2SAT 94–99; BMI 24.3
--- NOTE | 2024-09-18 10:15 | EKG_ITS ---
[address] [address] [address], [place] [address] Test Date: 2024-09-18 Pat Name: Mak Rose Department: [facility] Room: Gender: Male Nursing Attendant: LEWIS : 1960 Requested By: Order Number: [id number] Reading MD: Chau Hogan Measurements Intervals [place] Rate: 100 P: 73 CA: 144 QRS: 75 QRSD: 96 T: 65 QT: 326 QTc: 420 Interpretive Statements Normal sinus rhythm Right atrial enlargement Electronically Signed On 09-19-2024 8:46:00 PDT by Chau Hogan
--- NOTE | 2024-09-18 10:15 | DI.RAD.S_ITS ---
PROCEDURE: XR CHEST 1V INDICATIONS: Shortness of breath TECHNIQUE: One view of the chest was acquired. COMPARISON: [facility], CR, XR CHEST 1V, 09/15/2024, 23:48. [facility], CR, XR CHEST 1V, 08/10/2024, 9:07. FINDINGS: Surgical changes and devices: None. Lungs and pleura: Lungs show unchanged right upper lobe scarring without focal consolidation or effusion. No pleural effusions or pneumothorax. Mediastinum: Mediastinal contours appear normal. Heart size is normal. Bones and chest wall: No suspicious bony lesions. Overlying soft tissues appear unremarkable. IMPRESSION: No acute cardiopulmonary abnormality is seen. Dictated by: Carolyn Pedraza M.D. on 09/18/2024 at 10:16 Approved by: Carolyn Pedraza M.D. on 09/18/2024 at 10:18
[2024-09-18 10:27] LABS: Prothrombin Time 10.9 SECONDS (9.4-12.5)
[2024-09-18 10:32] LABS: Add Manual Diff / Slide Review NO; Basophils Absolute Auto 0 /uL (0-100); Basophils Percent Auto 0.3 % (0-2); Eosinophils Absolute Auto 100 /uL (0-450); Eosinophils Percent Auto 0.5 % (2-4); Hematocrit 41.4 % (41-53); Hemoglobin 13.1 g/dL (13.5-17.5); Lymphocytes Absolute Auto 2200 /uL (1100-4500); Lymphocytes Percent Auto 20.4 % (25-40); Mean Corpuscular HGB Conc 31.7 % (30-36); Mean Corpuscular Hemoglobin 26.8 PG (26-34); Mean Corpuscular Volume 84.5 fL (80-100); Monocytes Absolute Auto 1000 /uL (0-900); Neutrophils Absolute Auto 7500 /uL (1500-7000); Neutrophils Percent Auto 69.8 % (50-75); Platelet Count 194 X10^3/uL (150-400); Red Cell Distribution Width 18.5 % (11.6-14.8); White Blood Cell Count 10.7 X10^3/uL (4.5-11.0)
[2024-09-18 10:44] LABS: Alanine Aminotransferase 29 IU/L (<50); Albumin 4.5 g/dL (3.5-5.0); Albumin Globulin Ratio 1.1 (1.0-2.8); Alkaline Phosphatase 60 U/L (38-126); Aspartate Aminotransferase 39 IU/L (17-59); BUN Creatinine Ratio 17.8 (6-22); Bilirubin Total 0.4 mg/dL (0.2-1.3); Blood Urea Nitrogen 19 mg/dL (9-20); Carbon Dioxide 38 mmol/L (22-32); Chloride 94 mmol/L (98-107); Estimated Glomerular Filt Rate > 60 mL/min (>60); Globulin 4.1 g/dL (1.7-4.1); Glucose 84 mg/dL (80-110); HEMOLYSIS < 15 (0-50); Potassium 4.4 mmol/L (3.4-5.1); Sodium 143 mmol/L (137-145); Total Protein 8.6 g/dL (6.3-8.2)
[2024-09-18 10:56] LABS: NT-proBNP (BNP-Adult 18+) 261 pg/mL (<125); Troponin I < 0.012 ng/mL (0.01-0.034)
[2024-09-18] MEDS: ALBUTEROL/IPRATROPIUM 3 ML AMPUL INH (10:56)
[2024-09-18 11:09] LABS: Lactate (Lactic Acid) 4.4 mmol/L (0.7-2.1)
[2024-09-18 11:58] LABS: Reflexed Lactate in 2 Hours Y
[2024-09-18 12:32] LABS: Lactate 2HR (Lactic Acid Rflx) 1.1 mmol/L (0.7-2.1)
--- NOTE | 2024-09-18 15:35 | ED.SOB ---
HPI - SOB/Dyspnea <Taylor Solis, DO - Last Filed: 09/19/24 07:55> General Chief Complaint: Shortness of Breath/Dyspnea Stated Complaint: SOB Time Seen by Provider: 09/18/24 15:03 History of Present Illness HPI Narrative: Patient is a 63-year-old male who has history of COPD chronic O2 dependence recent admission for pancreatitis, presenting today with abdominal pain. He reports that he has not had a bowel movement in 2 days. He was seen evaluated here on September 15. He had a CT that did show significant stool burden and no complication. He has been taking MiraLax prune juice at home without any sort of relief. Pain is only intensifying. No nausea or vomiting. No fever. He is on anymore short of breath than normal. Not have any kind of chest pain Related Data Home Medications Medication Instructions Recorded Confirmed ascorbate calcium (vitamin C) 500 500 mg PO DAILY 08/06/23 09/19/24 mg tablet aluminum-mag hydroxide-simethicone See Rx Instructions .Route 05/14/24 09/19/24 400 mg-400 mg-40 mg/5 mL oral susp .COMPLEX PRN heartburn/gas montelukast 10 mg tablet 10 mg PO BEDTIME 05/14/24 09/19/24 multivitamin with minerals-folic 1 tab PO DAILY 05/14/24 09/19/24 acid 0.4 mg tablet nystatin 100,000 unit/mL oral 5 ml PO QID PRN thrush 05/14/24 09/19/24 suspension cetirizine 10 mg tablet 10 mg PO BEDTIME allergy/asthma 08/25/24 09/19/24 guaifenesin 100 mg/5 mL oral liquid 200 mg PO Q4H PRN cough 08/25/24 09/19/24 mecobalamin (vitamin B12) 1,000 1,000 mcg PO DAILY 08/25/24 09/19/24 mcg chewable tablet ondansetron 4 mg disintegrating 4 mg PO Q6-8H PRN nausea and 08/25/24 09/19/24 tablet vomiting Previous Rx's Medication Instructions Recorded ferrous gluconate 324 mg (38 mg 324 mg PO DAILY #90 tabs 03/28/24 iron) tablet benzonatate 100 mg capsule 100 mg PO BID-TID PRN Cough #270 05/19/24 caps Disabled Parking Permint #1 ea 07/01/24 mometasone-formoterol HFA 200 2 puff PO BID #13 grams 07/22/24 mcg-5 mcg/actuation aerosol inhaler (Dulera) simethicone 80 mg chewable tablet 80 mg PO QID PRN Flatulence #60 08/24/24 (Gas Relief 80 (simethicone)) tabs clonazepam 0.5 mg tablet 0.5 mg PO TID #90 tabs 08/25/24 nitroglycerin 0.3 mg sublingual 0.3 mg sublingual Q5-15M PRN chest 08/25/24 tablet pain #20 tabs prednisone 10 mg tablet 40 mg (4 x 10 mg) PO DAILY #30 tabs 08/25/24 simvastatin 20 mg tablet 20 mg PO QPM #90 tabs 08/25/24 albuterol sulfate 2.5 mg/3 mL 2.5 mg (3 mL) inhalation QID PRN 09/09/24 (0.083 %) solution for nebulization shortness of breath or wheezing #180 mL albuterol sulfate 90 mcg/actuation 1 - 2 puff PO Q4H PRN for wheezing 09/09/24 aerosol inhaler (Ventolin HFA) #54 grams ipratropium bromide 0.02 % 2.5 ml inhalation QID PRN 09/09/24 solution for inhalation shortness of breath or wheezing #150 mL amoxicillin 875 mg-potassium 1 tab PO BID #20 tabs 09/18/24 clavulanate 125 mg tablet lactulose 10 gram oral packet 20 g PO BID PRN constipation #15 ea 09/18/24 (Kristalose) Allergies Allergy/AdvReac Type Severity Reaction Status Date / Time cinnamon [CINNAMON] Allergy Severe RESP Verified 08/30/24 11:42 PROBLEMS AND SWELLING Sulfa (Sulfonamide Allergy Severe anaphylacti Verified 08/30/24 11:42 Antibiotics) c [SULFA (SULFONAMIDE ANTIBIOTICS)] fluticasone [FLUTICASONE] Allergy Intermediate FEELS Verified 08/30/24 11:42 LIKE FIRE IN THE LUNGS trimethoprim [TRIMETHOPRIM] Allergy Unknown Patient Verified 08/30/24 11:42 can't remember dextromethorphan AdvReac Severe Difficulty Verified 08/30/24 11:42 Breathing fentanyl AdvReac Severe Difficulty Verified 08/30/24 11:42 Breathing codeine [CODEINE] AdvReac Intermediate violent Verified 08/30/24 11:42 doxycycline [DOXYCYCLINE] AdvReac Mild N/V Verified 08/30/24 11:42 Patient History <Taylor Solis DO - Last Filed: 09/19/24 07:55> Medical History Lung nodule seen on imaging study History of tobacco abuse Fatigue Ventricular tachycardia (paroxysmal) Anemia Palpitations GERD with stricture HTN (hypertension) Insomnia (~2015) Hyperlipidemia (~2015) Anxiety (~2015) COPD (chronic obstructive pulmonary disease) (~2013) Asthma (Unknown) TIA (transient ischemic attack) (05/2014) Hematuria (~2014) Surgical History No pertinent past surgical history Family History Mother Age: 86 Hypertension Sister Age: 69 Cancer Social History household members: none Smoking Status: Current every day smoker Tobacco: How many years used: 47 quit status: considering quitting second hand exposure: No alcohol intake: former substance use type: does not use Smoking Status: Current some day smoker tobacco type: cigarettes alcohol intake frequency: holidays/special occasions only Exam <Taylor Solis DO - Last Filed: 09/19/24 07:55> Initial Vital Signs Initial Vital Signs: Vital Signs Temperature 98.5 F 09/18/24 10:12 Pulse Rate 107 H 09/18/24 10:12 Respiratory Rate 16 09/18/24 10:12 Blood Pressure 122/77 09/18/24 10:12 Pulse Oximetry 97 09/18/24 10:12 Oxygen Delivery Method Room Air 09/18/24 10:12 GENERAL: Alert chronically ill 63-year-old and in no acute distress. HEENT: Head atraumatic,EOMI, pupils reactive, face symmetric, moist mucous membranes CARDIOVASCULAR: Regular rate and rhythm without murmurs, rubs or gallops. RESPIRATORY: Breath sounds equal bilaterally, no wheezes rales or rhonchi. No respiratory distress ABDOMEN: Soft, significant pain suprapubic lower abdomen EXTREMITIES: Normal range of motion, no clubbing or edema. Neurovascularly intact NEUROLOGICAL: Alert and oriented x4.Normal gait and speech. Cranial nerves II through XII grossly intact. SKIN: Warm, dry, no laceration, no petechiae, no rashes or lesions. <Eric Cardoza MD - Last Filed: 09/18/24 20:46> Initial Vital Signs Initial Vital Signs: Vital Signs Temperature 98.5 F 09/18/24 10:12 Pulse Rate 107 H 09/18/24 10:12 Respiratory Rate 16 09/18/24 10:12 Blood Pressure 122/77 09/18/24 10:12 Pulse Oximetry 97 09/18/24 10:12 Oxygen Delivery Method Room Air 09/18/24 10:12 Course <Taylor Solis DO - Last Filed: 09/19/24 07:55> Orders Ordered: Discontinued Medications Albuterol/Ipratropium (Albuterol/Ipratropium 3 Ml Ampul) 3 ml INH NOW ONE Stop: 09/18/24 10:55 Last Admin: 09/18/24 10:56 Dose: 3 ml Documented By: HITESH Amoxicillin/Clavulanate Potassium (Amoxicillin/Clav 875/125 Mg) 1 tab PO NOW ONE Stop: 09/18/24 20:38 Last Admin: 09/18/24 20:50 Dose: 1 tab Documented By: LINDA Hydromorphone HCl (Hydromorphone 1 Mg Inj) 1 mg IV NOW ONE Stop: 09/18/24 15:42 Last Admin: 09/18/24 16:14 Dose: 1 mg Documented By: GLENN Hydromorphone HCl (Hydromorphone 1 Mg Inj) 1 mg IV NOW ONE Stop: 09/18/24 16:58 Last Admin: 09/18/24 17:43 Dose: 1 mg Documented By: GELNN Ketorolac Tromethamine (Ketorolac 30 Mg/Ml Vial) 15 mg IV NOW ONE Stop: 09/18/24 16:57 Last Admin: 09/18/24 17:42 Dose: Not Given Documented By: GLENN Lactulose (Lactulose 20 Gm/30 Ml Solution) 20 gm PO NOW ONE Stop: 09/18/24 20:38 Last Admin: 09/18/24 20:50 Dose: 20 gm Documented By: LINDA Mineral Oil (Mineral Oil 1 Each Enema) 1 each OR NOW ONE Stop: 09/18/24 16:58 Last Admin: 09/18/24 17:42 Dose: 1 each Documented By: GLENN Vital Signs Vital signs: Vital Signs - 8 hr 09/18/24 13:00 09/18/24 13:00 09/18/24 13:30 Pulse Rate 94 H 93 H Respiratory Rate 20 21 Blood Pressure 139/63 Pulse Oximetry 97 99 Oxygen Delivery Method Oxygen Flow Rate 09/18/24 13:30 09/18/24 14:00 09/18/24 14:00 Pulse Rate 90 Respiratory Rate 24 Blood Pressure 127/66 127/65 Pulse Oximetry 98 Oxygen Delivery Method Oxygen Flow Rate 09/18/24 14:30 09/18/24 14:30 09/18/24 15:00 Pulse Rate 92 H 90 Respiratory Rate 24 21 Blood Pressure 134/65 Pulse Oximetry 97 96 Oxygen Delivery Method Nasal Cannula Oxygen Flow Rate 2 09/18/24 15:00 09/18/24 15:30 09/18/24 15:30 Pulse Rate 94 H Respiratory Rate 24 Blood Pressure 132/62 131/71 Pulse Oximetry 97 Oxygen Delivery Method Nasal Cannula Oxygen Flow Rate 2 09/18/24 16:02 09/18/24 16:30 09/18/24 17:00 Pulse Rate 97 H 87 88 Respiratory Rate 25 H Blood Pressure Pulse Oximetry 95 95 96 Oxygen Delivery Method Nasal Cannula Oxygen Flow Rate 2 09/18/24 17:30 09/18/24 17:46 09/18/24 17:46 Pulse Rate 89 91 H Respiratory Rate 24 Blood Pressure 144/67 H Pulse Oximetry 96 96 Oxygen Delivery Method Oxygen Flow Rate 09/18/24 18:00 09/18/24 19:00 09/18/24 19:30 Pulse Rate 112 H 110 H 91 H Respiratory Rate 21 24 20 Blood Pressure 191/77 H 133/62 Pulse Oximetry 94 95 96 Oxygen Delivery Method Nasal Cannula Oxygen Flow Rate 2 <Eric Cardoza MD - Last Filed: 09/18/24 20:46> Orders Ordered: Discontinued Medications Albuterol/Ipratropium (Albuterol/Ipratropium 3 Ml Ampul) 3 ml INH NOW ONE Stop: 09/18/24 10:55 Last Admin: 09/18/24 10:56 Dose: 3 ml Documented By: HITESH Amoxicillin/Clavulanate Potassium (Amoxicillin/Clav 875/125 Mg) 1 tab PO NOW ONE Stop: 09/18/24 20:38 Last Admin: 09/18/24 20:50 Dose: 1 tab Documented By: LINDA Hydromorphone HCl (Hydromorphone 1 Mg Inj) 1 mg IV NOW ONE Stop: 09/18/24 15:42 Last Admin: 09/18/24 16:14 Dose: 1 mg Documented By: GLENN Hydromorphone HCl (Hydromorphone 1 Mg Inj) 1 mg IV NOW ONE Stop: 09/18/24 16:58 Last Admin: 09/18/24 17:43 Dose: 1 mg Documented By: GLENN Ketorolac Tromethamine (Ketorolac 30 Mg/Ml Vial) 15 mg IV NOW ONE Stop: 09/18/24 16:57 Last Admin: 09/18/24 17:42 Dose: Not Given Documented By: GLENN Lactulose (Lactulose 20 Gm/30 Ml Solution) 20 gm PO NOW ONE Stop: 09/18/24 20:38 Last Admin: 09/18/24 20:50 Dose: 20 gm Documented By: LINDA Mineral Oil (Mineral Oil 1 Each Enema) 1 each OR NOW ONE Stop: 09/18/24 16:58 Last Admin: 09/18/24 17:42 Dose: 1 each Documented By: GLENN Vital Signs Vital signs: Vital Signs - 8 hr 09/18/24 13:00 09/18/24 13:00 09/18/24 13:30 Pulse Rate 94 H 93 H Respiratory Rate 20 21 Blood Pressure 139/63 Pulse Oximetry 97 99 Oxygen Delivery Method Oxygen Flow Rate 09/18/24 13:30 09/18/24 14:00 09/18/24 14:00 Pulse Rate 90 Respiratory Rate 24 Blood Pressure 127/66 127/65 Pulse Oximetry 98 Oxygen Delivery Method Oxygen Flow Rate 09/18/24 14:30 09/18/24 14:30 09/18/24 15:00 Pulse Rate 92 H 90 Respiratory Rate 24 21 Blood Pressure 134/65 Pulse Oximetry 97 96 Oxygen Delivery Method Nasal Cannula Oxygen Flow Rate 2 09/18/24 15:00 09/18/24 15:30 09/18/24 15:30 Pulse Rate 94 H Respiratory Rate 24 Blood Pressure 132/62 131/71 Pulse Oximetry 97 Oxygen Delivery Method Nasal Cannula Oxygen Flow Rate 2 09/18/24 16:02 09/18/24 16:30 09/18/24 17:00 Pulse Rate 97 H 87 88 Respiratory Rate 25 H Blood Pressure Pulse Oximetry 95 95 96 Oxygen Delivery Method Nasal Cannula Oxygen Flow Rate 2 09/18/24 17:30 09/18/24 17:46 09/18/24 17:46 Pulse Rate 89 91 H Respiratory Rate 24 Blood Pressure 144/67 H Pulse Oximetry 96 96 Oxygen Delivery Method Oxygen Flow Rate 09/18/24 18:00 09/18/24 19:00 09/18/24 19:30 Pulse Rate 112 H 110 H 91 H Respiratory Rate 21 24 20 Blood Pressure 191/77 H 133/62 Pulse Oximetry 94 95 96 Oxygen Delivery Method Nasal Cannula Oxygen Flow Rate 2 MDM - SOB/Dyspnea <Taylor Solis, DO - Last Filed: 09/19/24 07:55> Lab Data 09/18/24 10:17 09/18/24 10:17 Labs: Lab Results 09/18/24 09/18/24 Range/Units 10:17 11:13 WBC 10.7 (4.5-11.0) X10^3/uL RBC 4.90 (4.5-5.9) X10^6/uL Hgb 13.1 L (13.5-17.5) g/dL Hct 41.4 (41-53) % MCV 84.5 (80-100) fL MCH 26.8 (26-34) PG MCHC 31.7 (30-36) % RDW 18.5 H (11.6-14.8) % Plt Count 194 (150-400) X10^3/uL Neut % (Auto) 69.8 (50-75) % Lymph % (Auto) 20.4 L (25-40) % [place] % (Auto) 9.0 (3-14) % Eos % (Auto) 0.5 L (2-4) % Baso % (Auto) 0.3 (0-2) % Neut # (Auto) 7500 H (5522-3106) /uL Lymph # (Auto) 2200 (1881-3377) /uL [place] # (Auto) 1000 H (0-900) /uL Eos # (Auto) 100 (0-450) /uL Baso # (Auto) 0 (0-100) /uL PT 10.9 (9.4-12.5) SECONDS INR 1.0 (0.9-1.3) Sodium 143 (137-145) mmol/L Potassium 4.4 (3.4-5.1) mmol/L Chloride 94 L (98-107) mmol/L Carbon Dioxide 38 H (22-32) mmol/L BUN 19 (9-20) mg/dL Creatinine 1.07 (0.66-1.25) mg/dL Estimated GFR > 60 (>60) mL/min BUN/Creatinine Ratio 17.8 (6-22) Glucose 84 (80-110) mg/dL Lactate 4.4 H* 1.1 (0.7-2.1) mmol/L Calcium 10.0 (8.4-10.2) mg/dL Total Bilirubin 0.4 (0.2-1.3) mg/dL AST 39 (17-59) IU/L ALT 29 (<50) IU/L Alkaline Phosphatase 60 (38-126) U/L Troponin I < 0.012 (0.01-0.034) ng/mL NT-Pro-B Natriuret Pep 261 H (<125) pg/mL Total Protein 8.6 H (6.3-8.2) g/dL Albumin 4.5 (3.5-5.0) g/dL Globulin 4.1 (1.7-4.1) g/dL Albumin/Globulin Ratio 1.1 (1.0-2.8) Imaging Data CT scan - abdomen/pelvis: Radiologist's Impression: PROCEDURE: CT ABDOMEN PELVIS W CON INDICATIONS: severe ab pain TECHNIQUE: After the administration of intravenous contrast, axial sections acquired from the lung bases to the pubic symphysis. Coronal and sagittal reformats were performed. For radiation dose reduction, the following was used: automated exposure control, adjustment of mA and/or kV according to patient size. COMPARISON: [facility], CT, CT ABDOMEN PELVIS W CON, 09/16/2024, 0:33. FINDINGS: Image quality: Diagnostic. Lower Chest: No significant findings. ABDOMEN: Liver: No solid mass. Gallbladder: No radiopaque gallstones or wall thickening. Biliary ducts: No biliary dilation. Pancreas: No ductal dilation. Spleen: Size is within normal limits. Adrenal Glands: No adrenal nodules. Kidneys and Ureters: No hydronephrosis. No solid mass. No complex renal cystic lesion which requires follow up. There is a 1.1 cm nonobstructing stone within the right lower pole. Stomach and Bowel: Normal colonic caliber, without significant wall thickening. Stool burden is very large and there is a large stool ball within the rectum. Numerous sigmoid diverticula are shown. There is a focal area of wall thickening within the sigmoid colon adjacent to an inflamed diverticulum. Peritoneum: This enteric edema seen about the sigmoid colon without focal fluid collection or extraluminal gas. Ventral Wall: No significant ventral hernia. Abdominal Nodes: No retroperitoneal or mesenteric adenopathy by size criteria. Vessels: Aorta and inferior vena cava are normal in size. PELVIS: Pelvic Organs: Unremarkable. Bladder: No bladder wall thickening, accounting for underdistention. Pelvic Nodes: No enlarged lymph nodes. Miscellaneous: No inguinal hernias are seen. Bones: No aggressive osseous abnormality. IMPRESSION: Acute uncomplicated sigmoid diverticulitis. Chronic constipation with a large rectal stool ball concerning for obstipation. Dictated by: Carolyn Pedraza M.D. on 09/18/2024 at 15:35 Chest x-ray: Radiologist's Impression: PROCEDURE: XR CHEST 1V INDICATIONS: Shortness of breath TECHNIQUE: One view of the chest was acquired. COMPARISON: [facility], CR, XR CHEST 1V, 09/15/2024, 23:48. [facility], CR, XR CHEST 1V, 08/10/2024, 9:07. FINDINGS: Surgical changes and devices: None. Lungs and pleura: Lungs show unchanged right upper lobe scarring without focal consolidation or effusion. No pleural effusions or pneumothorax. Mediastinum: Mediastinal contours appear normal. Heart size is normal. Bones and chest wall: No suspicious bony lesions. Overlying soft tissues appear unremarkable. IMPRESSION: No acute cardiopulmonary abnormality is seen. Dictated by: Carolyn Pedraza M.D. on 09/18/2024 at 10:16 Approved by: Carolyn Pedraza M.D. on 09/18/2024 at 10:18 ECG Data Attestation: I personally reviewed and interpreted this ECG as follows: Prior ECG tracings: available for review Interpretation: normal sinus rhythm rate 100 OR interval 144 QRS 96 QTC 420 similar to previous EKGs MDM Narrative Medical decision making narrative: MDM CC: COPD chronic O2 Complicating co-morbidities: COPD chronic O2 Medical records reviewed: recent admission for pancreatitis recent ED evaluation abdominal pain. September [address] that showed sigmoid diverticulosis without diverticulitis with moderate constipation Differential considered: constipation diverticulitis obstruction ischemia Exam documented above, pertinent findings include: 63-year-old male chronically ill abdomen is tender in suprapubic region no significant distention positive bowel sounds breath sounds baseline Lab Test results independently reviewed as above. Pertinent findings: lactate 4.4 with repeat 1.1 CBC WBC shows a 10.7 previously 16 hemoglobin stable at 13.1 hematocrit 41.4 CMP no significant electrolyte abnormalities creatinine 1.0 troponin negative, BNP 261 Independently reviewed EKG as above sinus rhythm no ischemia Imaging studies independently reviewed: CT shows acute diverticulitis no complication and large rectal stool ball Consultations: [ ] Treatments: Dilaudid for pain Augmentin and enema Re-evaluations: [ ] Discussion: patient 63-year-old male presenting today with ongoing abdominal pain. Recent admission for pancreatitis. CT today does show constipation with now acute diverticulitis. Blood work is overall reassuring. Initial lactate was elevated at 4.4 with repeat 1.0 no significant treatments for that lactate. Maybe due to pain. Although mesenteric ischemia is considered he has not having any evidence of diarrhea or vomiting. Pain is not out of proportion. signed out to Dr. Cardoza anticipate discharge <Eric Cardoza MD - Last Filed: 09/18/24 20:46> Lab Data Labs: Lab Results 09/18/24 09/18/24 Range/Units 10:17 11:13 WBC 10.7 (4.5-11.0) X10^3/uL RBC 4.90 (4.5-5.9) X10^6/uL Hgb 13.1 L (13.5-17.5) g/dL Hct 41.4 (41-53) % MCV 84.5 (80-100) fL MCH 26.8 (26-34) PG MCHC 31.7 (30-36) % RDW 18.5 H (11.6-14.8) % Plt Count 194 (150-400) X10^3/uL Neut % (Auto) 69.8 (50-75) % Lymph % (Auto) 20.4 L (25-40) % [place] % (Auto) 9.0 (3-14) % Eos % (Auto) 0.5 L (2-4) % Baso % (Auto) 0.3 (0-2) % Neut # (Auto) 7500 H (9081-5791) /uL Lymph # (Auto) 2200 (0675-6130) /uL [place] # (Auto) 1000 H (0-900) /uL Eos # (Auto) 100 (0-450) /uL Baso # (Auto) 0 (0-100) /uL PT 10.9 (9.4-12.5) SECONDS INR 1.0 (0.9-1.3) Sodium 143 (137-145) mmol/L Potassium 4.4 (3.4-5.1) mmol/L Chloride 94 L (98-107) mmol/L Carbon Dioxide 38 H (22-32) mmol/L BUN 19 (9-20) mg/dL Creatinine 1.07 (0.66-1.25) mg/dL Estimated GFR > 60 (>60) mL/min BUN/Creatinine Ratio 17.8 (6-22) Glucose 84 (80-110) mg/dL Lactate 4.4 H* 1.1 (0.7-2.1) mmol/L Calcium 10.0 (8.4-10.2) mg/dL Total Bilirubin 0.4 (0.2-1.3) mg/dL AST 39 (17-59) IU/L ALT 29 (<50) IU/L Alkaline Phosphatase 60 (38-126) U/L Troponin I < 0.012 (0.01-0.034) ng/mL NT-Pro-B Natriuret Pep 261 H (<125) pg/mL Total Protein 8.6 H (6.3-8.2) g/dL Albumin 4.5 (3.5-5.0) g/dL Globulin 4.1 (1.7-4.1) g/dL Albumin/Globulin Ratio 1.1 (1.0-2.8) MDM Narrative Medical decision making narrative: MDM CC: COPD chronic O2 Complicating co-morbidities: COPD chronic O2 Medical records reviewed: recent admission for pancreatitis recent ED evaluation abdominal pain. September [address] that showed sigmoid diverticulosis without diverticulitis with moderate constipation Differential considered: constipation diverticulitis obstruction ischemia Exam documented above, pertinent findings include: 63-year-old male chronically ill abdomen is tender in suprapubic region no significant distention positive bowel sounds breath sounds baseline Lab Test results independently reviewed as above. Pertinent findings: lactate 4.4 with repeat 1.1 CBC WBC shows a 10.7 previously 16 hemoglobin stable at 13.1 hematocrit 41.4 CMP no significant electrolyte abnormalities creatinine 1.0 troponin negative, BNP 261 Independently reviewed EKG as above sinus rhythm no ischemia Imaging studies independently reviewed: CT shows acute diverticulitis no complication and large rectal stool ball Consultations: [ ] Treatments: Dilaudid for pain Augmentin and enema Re-evaluations: [ ] Discussion: patient 63-year-old male presenting today with ongoing abdominal pain. Recent admission for pancreatitis. CT today does show constipation with now acute diverticulitis. Blood work is overall reassuring. Initial lactate was elevated at 4.4 with repeat 1.0 no significant treatments for that lactate. Maybe due to pain. Although mesenteric ischemia is considered he has not having any evidence of diarrhea or vomiting. Pain is not out of proportion. signed out to Dr. Cardoza anticipate discharge 09/18/[id number], [place]. Sign-out from Dr. Solis. Ongoing abdominal pain, recent visit seen by me on 09/16/2024 with findings of diverticulosis and constipation without bowel obstruction on CT scan at that visit, discussion of home lactulose, declined at that time, wanted to use his MiraLax and prune juice regimen. Returns with more abdominal discomfort. Repeat CT scanning gopal shows diverticulitis uncomplicated, without perforation or abscess or obstruction changes. He had enema with small response tonight. They seemed to have some confusion about the diagnosis. I printed both reports from previous visit and gopal's visit, we went over the differences and details. Pres[facility] for Aug[facility]in antibiotic course, and for lactulose to try at home. I also gave 1st dose of oral antibiotic now. Also gave dose of lactulose dispensed now, to take once he gets home gopal, per his preference. I answered their questions for patient and family in room. They seem satisfied. Discharged home. Follow up with PCP as above. 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 Return precautions discussed. Discharged home with family. Discharge Plan Departure Patient Disposition: Home Clinical Impression: Diverticulitis, Constipation Instructions: DI for Diverticulitis Activity Restrictions/Additional Instructions: *You have been diagnosed with constipation diverticulitis *What to do: increase fluid intake increase movement this will help your constipation *Continue to take medications as directed Augmentin 875 mg twice a day for 10 days lactulose take as needed for constipation *Follow up with your primary care provider in 2-3 days or call [phone] *Return to ER if you should have increasing abdominal pain rectal pain nausea vomiting[or] any new, worsening or concerning symptoms Mr. Rose. You had some abdominal discomfort ongoing, on previous CT scan abdomen and pelvis 09/16/2024 you had diverticulosis finding and constipation, but no diverticulitis inflammatory infection changes at that time. Tonight your CT scan abdomen and pelvis shows a different reading, some uncomplicated diverticulitis acute inflammation infection changes, but no perforation or abscess or bowel obstruction changes. Both studies showed significant stool burden, consistent with constipation. Last visit you wanted to use MiraLax and prune juice, lactulose was offered but declined. You are now interested in trying the lactulose, dispensed dose here to take once your at home tonight, prescription has been sent already to your pharmacy. Take antibiotic Augmentin for the diverticulitis, 1st dose now dispensed, take the rest of the course of antibiotics sent to your pharmacy. Recheck with your regular doctor later this week. Return to this/nearest emergency department for any change worsening symptoms or any concerns prior. Thank you for allowing our team to evaluate you again. Prescriptions: New amoxicillin-pot clavulanate 875-125 mg tablet 1 tab PO BID Qty: 20 0RF Patient Comments: HAS NOT TAKEN YET- JUST Rx'D T-1 lactulose [Kristalose] 10 gram packet 20 g PO BID PRN (Reason: constipation) Qty: 15 0RF Patient Comments: HAS NOT TAKEN 1st DOSE No Action benzonatate 100 mg capsule 100 mg PO BID-TID PRN (Reason: Cough) Qty: 270 0RF (DME) Disabled Parking Permint See Rx Instructions .ROUTE .MEDSUPPLY Qty: 1 0RF Rx Instructions: I find this patient to be medically disabled and qualified for Disabled Parking as indicated and signed on the Accompanying Disabled Parking Application for individuals. Dulera 200-5 mcg/actuation HFA aerosol inhaler 2 puff PO BID Qty: 13 5RF cetirizine 10 mg tablet 10 mg PO BEDTIME clonazepam 0.5 mg tablet 0.5 mg PO TID Qty: 90 3RF Rx Instructions: 08/25/24:Mak states he is only taking the Clonazepam twice daily on a regular basis but needs the option to take it TID if needed when anxiety is especially high. guaifenesin 100 mg/5 mL liquid 200 mg PO Q4H PRN (Reason: cough) prednisone 10 mg tablet 40 mg PO DAILY Qty: 30 0RF nitroglycerin 0.3 mg tablet, sublingual 0.3 mg sublingual Q5-15M PRN (Reason: chest pain) Qty: 20 0RF Rx Instructions: do not exceed 3 doses per episode ondansetron 4 mg tablet,disintegrating 4 mg PO Q6-8H PRN (Reason: nausea and vomiting) simvastatin 20 mg tablet 20 mg PO QPM Qty: 90 3RF albuterol sulfate 2.5 mg /3 mL (0.083 %) solution for nebulization 2.5 mg inhalation QID PRN (Reason: shortness of breath or wheezing) Qty: 180 11RF albuterol sulfate [Ventolin HFA] 90 mcg/actuation HFA aerosol inhaler 1 - 2 puff PO Q4H PRN (Reason: for wheezing) Qty: 54 11RF ipratropium bromide 0.02 % solution 2.5 ml inhalation QID PRN (Reason: shortness of breath or wheezing) Qty: 150 11RF ascorbate calcium (vitamin C) 500 mg tablet 500 mg PO DAILY ferrous gluconate 324 mg (38 mg iron) tablet 324 mg PO DAILY Qty: 90 1RF mecobalamin (vitamin B12) 1,000 mcg tablet,chewable 1,000 mcg PO DAILY alum-mag hydroxide-simeth 400-400-40 mg/5 mL Suspension See Rx Instructions .ROUTE .COMPLEX MDD 120 ml PRN (Reason: heartburn/gas) Rx Instructions: [employer] Brand Mylanta Gas -- 400 mg Aluminum Hydroxide, 400mg Magnesium Hydroxide, 40mg Simethicone/10 ml (Suspension) 10 to 20 ml PRN with/after meals & bedtime as needed for heartburn/gas relief by Mouth Max dose 120 ml total/24 hours multivit with min-folic acid 0.4 mg Tablet 1 tab PO DAILY nystatin 100,000 unit/mL suspension 5 ml PO QID PRN (Reason: thrush) montelukast 10 mg tablet 10 mg PO BEDTIME simethicone [Gas Relief 80 (simethicone)] 80 mg Tablet,Chewable 80 mg PO QID PRN (Reason: Flatulence) Qty: 60 0RF Referrals: Saqib Oliva DO [Primary Care Provider] - Stand Alone Forms: Patient Portal/API/Survey
--- NOTE | 2024-09-18 15:47 | DI.CT.S_ITS ---
PROCEDURE: CT ABDOMEN PELVIS W CON INDICATIONS: severe ab pain TECHNIQUE: After the administration of intravenous contrast, axial sections acquired from the lung bases to the pubic symphysis. Coronal and sagittal reformats were performed. For radiation dose reduction, the following was used: automated exposure control, adjustment of mA and/or kV according to patient size. COMPARISON: [facility], CT, CT ABDOMEN PELVIS W CON, 09/16/2024, 0:33. FINDINGS: Image quality: Diagnostic. Lower Chest: No significant findings. ABDOMEN: Liver: No solid mass. Gallbladder: No radiopaque gallstones or wall thickening. Biliary ducts: No biliary dilation. Pancreas: No ductal dilation. Spleen: Size is within normal limits. Adrenal Glands: No adrenal nodules. Kidneys and Ureters: No hydronephrosis. No solid mass. No complex renal cystic lesion which requires follow up. There is a 1.1 cm nonobstructing stone within the right lower pole. Stomach and Bowel: Normal colonic caliber, without significant wall thickening. Stool burden is very large and there is a large stool ball within the rectum. Numerous sigmoid diverticula are shown. There is a focal area of wall thickening within the sigmoid colon adjacent to an inflamed diverticulum. Peritoneum: This enteric edema seen about the sigmoid colon without focal fluid collection or extraluminal gas. Ventral Wall: No significant ventral hernia. Abdominal Nodes: No retroperitoneal or mesenteric adenopathy by size criteria. Vessels: Aorta and inferior vena cava are normal in size. PELVIS: Pelvic Organs: Unremarkable. Bladder: No bladder wall thickening, accounting for underdistention. Pelvic Nodes: No enlarged lymph nodes. Miscellaneous: No inguinal hernias are seen. Bones: No aggressive osseous abnormality. IMPRESSION: Acute uncomplicated sigmoid diverticulitis. Chronic constipation with a large rectal stool ball concerning for obstipation. Dictated by: Carolyn Pedraza M.D. on 09/18/2024 at 15:35 Approved by: Carolyn Pedraza M.D. on 09/18/2024 at 15:40
[2024-09-18] MEDS: HYDROMORPHONE 1 MG INJ IV ×2 (16:14→17:43)
[2024-09-18] MEDS: MINERAL OIL 1 EACH ENEMA PR (17:42)
--- NOTE | 2024-09-18 19:16 | PC.NURSE ---
Pt had a small bowel movement. hard black bowel movement.
[2024-09-18] MEDS: LACTULOSE 20 GM/30 ML SOLUTION PO (20:50)
[2024-09-18] MEDS: AMOXICILLIN/CLAV 875/125 MG 1 TAB PO (20:50)
== END 2024-09-18 21:30 | disposition home or self-care (01) ==
PROVIDERS: Emergency Medicine; Emergency Provider Emergency Medicine; PCP Family Medicine
DX: K57.32 Diverticulitis of large intestine without perforation or abscess without bleeding (principal); K59.00 Constipation, unspecified; J44.9 Chronic obstructive pulmonary disease, unspecified; Z99.81 Dependence on supplemental oxygen; F17.210 Nicotine dependence, cigarettes, uncomplicated; R06.02 Shortness of breath
CPT/HCPCS: 36415; 71045; 74177; 80053; 83605; 83880; 84484; 85025; 85610; 93005; 94640; 99285; J1171; Q9967

== ENCOUNTER 2024-09-19 01:04 | Inpatient (IN) | payer MEDICARE, MEDICAID, SELFPAY ==
[2024-08-18 11:54] VITALS: BMI 24.9
[2024-09-19] VITALS (17 sets, daily range): BP systolic 106–143; BP diastolic 56–68; PULSE 81–107; RESP 12–23; TEMP 36.4–36.8; O2SAT 93–98; BMI 25.8
--- NOTE | 2024-09-19 01:07 | ED_ITS ---
HPI - General Adult General Chief complaint: Nausea/Vomiting/Diarrhea Stated complaint: N/V Time Seen by Provider: 09/19/24 01:07 History of Present Illness HPI narrative: 63-year-old male with 3rd visit in 4 days for same abdominal pain, initially had CT scan abdomen and pelvis on 09/15/2024 showing diverticulosis without diverticulitis and colonic stool without obstructive pattern, opted to decline lactulose at that time, went home with plan to use his MiraLax and prune juice regimen, presented again yesterday 09/18/2024 with increased LLQ abdmominal pain, repeat CT scan showed presence of uncomplicated sigmoid diverticulitis, was given oral Augmentin, oral lactulose, with prescription for both medications. Went home, has been home only a few hours, complains of nausea and nonbloody vomiting twice, unable to keep down lactulose dispensed from ED visit. Feels no better, requests admission. Also has history of chronic hypoxia, chronic lung disease, feels more short of breath, requesting breathing treatment. Arrived by EMS. Related Data Home Medications Medication Instructions Recorded Confirmed ascorbate calcium (vitamin C) 500 500 mg PO DAILY 08/06/23 09/19/24 mg tablet aluminum-mag hydroxide-simethicone See Rx Instructions .Route 05/14/24 09/19/24 400 mg-400 mg-40 mg/5 mL oral susp .COMPLEX PRN heartburn/gas montelukast 10 mg tablet 10 mg PO BEDTIME 05/14/24 09/19/24 multivitamin with minerals-folic 1 tab PO DAILY 05/14/24 09/19/24 acid 0.4 mg tablet nystatin 100,000 unit/mL oral 5 ml PO QID PRN thrush 05/14/24 09/19/24 suspension cetirizine 10 mg tablet 10 mg PO BEDTIME allergy/asthma 08/25/24 09/19/24 guaifenesin 100 mg/5 mL oral liquid 200 mg PO Q4H PRN cough 08/25/24 09/19/24 mecobalamin (vitamin B12) 1,000 1,000 mcg PO DAILY 08/25/24 09/19/24 mcg chewable tablet ondansetron 4 mg disintegrating 4 mg PO Q6-8H PRN nausea and 08/25/24 09/19/24 tablet vomiting Previous Rx's Medication Instructions Recorded ferrous gluconate 324 mg (38 mg 324 mg PO DAILY #90 tabs 03/28/24 iron) tablet benzonatate 100 mg capsule 100 mg PO BID-TID PRN Cough #270 05/19/24 caps Disabled Parking Permint #1 ea 07/01/24 mometasone-formoterol HFA 200 2 puff PO BID #13 grams 07/22/24 mcg-5 mcg/actuation aerosol inhaler (Dulera) simethicone 80 mg chewable tablet 80 mg PO QID PRN Flatulence #60 08/24/24 (Gas Relief 80 (simethicone)) tabs clonazepam 0.5 mg tablet 0.5 mg PO TID #90 tabs 08/25/24 nitroglycerin 0.3 mg sublingual 0.3 mg sublingual Q5-15M PRN chest 08/25/24 tablet pain #20 tabs prednisone 10 mg tablet 40 mg (4 x 10 mg) PO DAILY #30 tabs 08/25/24 simvastatin 20 mg tablet 20 mg PO QPM #90 tabs 08/25/24 albuterol sulfate 2.5 mg/3 mL 2.5 mg (3 mL) inhalation QID PRN 09/09/24 (0.083 %) solution for nebulization shortness of breath or wheezing #180 mL albuterol sulfate 90 mcg/actuation 1 - 2 puff PO Q4H PRN for wheezing 09/09/24 aerosol inhaler (Ventolin HFA) #54 grams ipratropium bromide 0.02 % 2.5 ml inhalation QID PRN 09/09/24 solution for inhalation shortness of breath or wheezing #150 mL amoxicillin 875 mg-potassium 1 tab PO BID #20 tabs 09/18/24 clavulanate 125 mg tablet lactulose 10 gram oral packet 20 g PO BID PRN constipation #15 ea 09/18/24 (Kristalose) Allergies Allergy/AdvReac Type Severity Reaction Status Date / Time cinnamon [CINNAMON] Allergy Severe RESP Verified 08/30/24 11:42 PROBLEMS AND SWELLING Sulfa (Sulfonamide Allergy Severe anaphylacti Verified 08/30/24 11:42 Antibiotics) c [SULFA (SULFONAMIDE ANTIBIOTICS)] fluticasone [FLUTICASONE] Allergy Intermediate FEELS Verified 08/30/24 11:42 LIKE FIRE IN THE LUNGS trimethoprim [TRIMETHOPRIM] Allergy Unknown Patient Verified 08/30/24 11:42 can't remember dextromethorphan AdvReac Severe Difficulty Verified 08/30/24 11:42 Breathing fentanyl AdvReac Severe Difficulty Verified 08/30/24 11:42 Breathing codeine [CODEINE] AdvReac Intermediate violent Verified 08/30/24 11:42 doxycycline [DOXYCYCLINE] AdvReac Mild N/V Verified 08/30/24 11:42 Patient History Medical History Lung nodule seen on imaging study History of tobacco abuse Fatigue Ventricular tachycardia (paroxysmal) Anemia Palpitations GERD with stricture HTN (hypertension) Insomnia (~2015) Hyperlipidemia (~2015) Anxiety (~2015) COPD (chronic obstructive pulmonary disease) (~2013) Asthma (Unknown) TIA (transient ischemic attack) (05/2014) Hematuria (~2014) Surgical History No pertinent past surgical history Family History Mother Age: 86 Hypertension Sister Age: 69 Cancer Social History household members: none Smoking Status: Current every day smoker Tobacco: How many years used: 47 quit status: considering quitting second hand exposure: No alcohol intake: former substance use type: does not use Smoking Status: Current some day smoker tobacco type: cigarettes alcohol intake frequency: holidays/special occasions only Exam Narrative Exam Narrative: GENERAL: Well-developed patient, in mild distress. HEAD: Atraumatic. Normocephalic. EYES: Pupils equal round and reactive. Extraocular motions intact. No scleral icterus. No injection or drainage. ENT: Nose without bleeding, purulent drainage. Throat without erythema, tonsillar hypertrophy or exudate. Airway patent. NECK: Trachea midline. Non tender CARDIOVASCULAR: Regular rate and rhythm without murmurs, gallops, or rubs. RESPIRATORY: Clear to auscultation. Breath sounds equal bilaterally. No wheezes, rales, or rhonchi. GASTROINTESTINAL: Abdomen soft, non-tender, nondistended. EXTREMITIES: No edema or joint tenderness. BACK: Nontender without deformity or crepitance. No flank tenderness. NEURO: AOx3. Motor functions grossly nonfocal SKIN: No rash or erythema of visible areas Initial Vital Signs Initial Vital Signs: Vital Signs Pulse Rate 102 H 09/19/24 01:15 Respiratory Rate 13 09/19/24 01:15 Course Orders Ordered: ED Orders 09/19/24 01:14 CBC Auto Diff [Complete Blood Count AUTO DIFF] Stat CMP [Comprehensive Metabolic Panel] Stat Lipase Stat Acetaminophen (Acetaminophen 650 Mg Supp) 650 mg HI Q4HR PRN PRN Reason: Fever/Mild Pain (1-3) Albuterol (Albuterol 2.5 Mg/3 Ml Neb (Adult)) 2.5 mg INH Q2H PRN PRN Reason: shortness of breath or wheezing Albuterol (Albuterol 2.5 Mg/3 Ml Neb (Adult)) 2.5 mg INH [id number] ROBERT Budesonide (Budesonide 0.5 Mg/2 Ml Neb) 0.5 mg INH RTBID ROBERT Heparin Sodium (Porcine) (Heparin 5,000 Unit/Ml Vial) 5,000 unit SUBCUT BID ROBERT Hydromorphone HCl (Hydromorphone 0.5 Mg Inj) 0.5 mg IV Q2H PRN PRN Reason: Pain, Moderate (4-6) Hydromorphone HCl (Hydromorphone 1 Mg Inj) 1 mg IV Q2H PRN PRN Reason: Pain, Severe (7-10) Sodium Chloride (Normal Saline 0.9%) 1,000 mls @ 150 mls/hr IV CONT ROBERT Last Admin: 09/19/24 01:17 Dose: 150 mls/hr Dextrose/Lactated Ringer's (Dextrose 5%-Lactated Ringers) 1,000 mls @ 100 mls/hr IV CONT ROBERT Piperacillin Sod/Tazobactam (Sod 3.375 gm/ Sodium Chloride) 100 mls @ 25 mls/hr IV Q8H ROBERT Ipratropium [place] (Ipratropium 0.5 Mg/2.5 Ml Neb) 0.5 mg INH QID PRN PRN Reason: shortness of breath or wheezing Ketorolac Tromethamine (Ketorolac 30 Mg/Ml Vial) 15 mg IV Q6H PRN PRN Reason: Pain, Mild (1-3) Stop: 09/24/24 03:36 Naloxone HCl (Naloxone 0.4 Mg/Ml Vial) 0.2 mg IV Q2MIN PRN PRN Reason: Opiate Reversal Discontinued Medications Acetaminophen (Acetaminophen 325 Mg Tablet) 975 mg PO NOW ONE Stop: 09/19/24 03:02 Last Admin: 09/19/24 03:12 Dose: 975 mg Albuterol (Albuterol 2.5 Mg/3 Ml Neb (Adult)) 2.5 mg INH Q4HRWA ROBERT Albuterol/Ipratropium (Albuterol/Ipratropium 3 Ml Ampul) 3 ml INH NOW ONE Stop: 09/19/24 01:35 Last Admin: 09/19/24 01:39 Dose: 3 ml Hydromorphone HCl (Hydromorphone 0.5 Mg Inj) 1 mg IV Q2H PRN PRN Reason: Pain, Severe (7-10) Piperacillin Sod/Tazobactam (Sod 4.5 gm/ Sodium Chloride) 100 mls @ 200 mls/hr IV NOW ONE Stop: 09/19/24 02:06 Last Infusion: 09/19/24 03:00 Dose: Infused Piperacillin Sod/Tazobactam (Sod 4.5 gm/ Sodium Chloride) 100 mls @ 25 mls/hr IV Q8H [facility] Non-Formulary Medication (Mometasone-Formoterol [Dulera]) 2 puff PO BID ROBERT Ondansetron HCl (Ondansetron 4 Mg/2 Ml Inj) 4 mg IV NOW ONE Stop: 09/19/24 01:11 Last Admin: 09/19/24 01:16 Dose: 4 mg Vital Signs Vital signs: Vital Signs - 8 hr 09/19/24 01:15 09/19/24 01:20 09/19/24 01:30 Temperature 97.6 F Pulse Rate 102 H 97 H Respiratory Rate 13 18 Blood Pressure 125/67 143/67 H Pulse Oximetry 98 Oxygen Delivery Method Oximask Oxygen Flow Rate 3 Fraction of Inspired Oxygen 09/19/24 01:30 09/19/24 01:39 09/19/24 02:00 Temperature Pulse Rate 102 H 100 H Respiratory Rate 23 12 Blood Pressure 130/58 L Pulse Oximetry 98 97 Oxygen Delivery Method Oximask Oxygen Flow Rate 2 Fraction of Inspired Oxygen 28 09/19/24 02:00 09/19/24 02:30 09/19/24 02:30 Temperature Pulse Rate 99 H 100 H Respiratory Rate 17 20 Blood Pressure 137/65 Pulse Oximetry 97 93 Oxygen Delivery Method Oxygen Flow Rate Fraction of Inspired Oxygen Medical Decision Making Lab Data Lab results reviewed: Yes I reviewed the patient's lab results. Lab results narrative: White blood cell count 10072, hemoglobin 11.5, platelets adequate. BUN 20 with creatinine 1.01. Glucose 96. Potassium 4.1 adequate. Sodium 140 normal. Liver functions normal. Lipase normal. 09/19/24 01:20 09/19/24 01:20 Labs: Lab Results 09/19/24 Range/Units 01:20 WBC 16.5 H D (4.5-11.0) X10^3/uL RBC 4.40 L (4.5-5.9) X10^6/uL Hgb 11.5 L (13.5-17.5) g/dL Hct 36.8 L (41-53) % MCV 83.5 (80-100) fL MCH 26.2 (26-34) PG MCHC 31.3 (30-36) % RDW 17.8 H (11.6-14.8) % Plt Count 194 (150-400) X10^3/uL Neut % (Auto) 84.3 H (50-75) % Lymph % (Auto) 6.6 L (25-40) % [place] % (Auto) 8.7 (3-14) % Eos % (Auto) 0.3 L (2-4) % Baso % (Auto) 0.1 (0-2) % Neut # (Auto) 89482 H (3275-5153) /uL Lymph # (Auto) 1100 (8566-5773) /uL [place] # (Auto) 1400 H (0-900) /uL Eos # (Auto) 0 (0-450) /uL Baso # (Auto) 0 (0-100) /uL Sodium 140 (137-145) mmol/L Potassium 4.1 (3.4-5.1) mmol/L Chloride 95 L (98-107) mmol/L Carbon Dioxide 37 H (22-32) mmol/L BUN 20 (9-20) mg/dL Creatinine 1.01 (0.66-1.25) mg/dL Estimated GFR > 60 (>60) mL/min BUN/Creatinine Ratio 19.8 (6-22) Glucose 96 (80-110) mg/dL Calcium 9.5 (8.4-10.2) mg/dL Total Bilirubin 0.6 (0.2-1.3) mg/dL AST 33 (17-59) IU/L ALT 24 (<50) IU/L Alkaline Phosphatase 66 (38-126) U/L Total Protein 7.5 (6.3-8.2) g/dL Albumin 4.1 (3.5-5.0) g/dL Globulin 3.4 (1.7-4.1) g/dL Albumin/Globulin Ratio 1.2 (1.0-2.8) Lipase 96 D (23-300) U/L ECG Data Attestation: I personally reviewed and interpreted this ECG as follows: Interpretation: Sinus tachycardia with rate 104, no obvious ST segment elevation or depression changes. HI 130, QRS 96, QTC 436. MDM Narrative Medical decision making narrative: 63-year-old male with repeated visits for abdominal pain, prior admission for pancreatitis, more recently since 09/15/[address] scan with diverticulosis but no diverticulitis, on repeat CT scan 09/18/2024 yesterday constipation changes again noted without obstructive changes, but diverticulitis present, started on oral Augmentin. And enema with small results at that time but did have some movement of bowel. Since going home however he has had vomiting x2 episodes nonbloody. History of COPD with increased shortness of breath. Wheezing on examination. Abdomen with some mild left lower quadrant tenderness without guarding or rebound. New labs sent. Breathing treatment albuterol initiated. Wean oxygen from EMS oxygen to 2 L his baseline rate. IV Zofran for nausea. Screening EKG without obvious ischemic changes. White blood cell count 50115 elevated compared to last measured 10,000. Hemodynamically stable. We will give IV Zosyn for diverticulitis coverage. Repeated visits for left-sided abdominal pain, diverticulitis, consider admission. Patient prefers to be admitted. Will query hospitalist. 0230, case discussed with hospitalist Dr. Connors who accepts patient for admission. Critical Care Time Critical Care Time Critical Care Time: Yes Total Critical Care Time: 35 Attestation: The high probability of a clinically significant, sudden or life threatening deterioration of the [gastrointestinal, cardiopulmonary, abdominopelvic] system(s) required my full and direct attention, intervention and personal management. The aggregate critical care time was [35] minutes. This time is in addition to time spent performing reported procedures but includes the following: [x] Data Review and interpretation [x] Patient assessment and monitoring of vital signs [x] Documentation [x] Medication orders and management Discharge Plan Departure Patient Disposition: Admitted As Inpatient Clinical Impression: Abdominal pain, Diverticulitis, Constipation, Nausea & vomiting Admit Date/Time: 09/19/24 02:37 Admit Provider: Braden Burns
--- NOTE | 2024-09-19 01:09 | EKG_ITS ---
[place] [address] [place] [id number] Test Date: 2024-09-19 Pat Name: Mak Rose Department: Room: 213 Gender: Male Setup Technician: SHUBHAM : [id number] Requested By: Order Number: [id number] Reading MD: Chau Hogan Measurements Intervals [place] Rate: 104 P: 73 MS: 130 QRS: 74 QRSD: 96 T: 55 QT: 332 QTc: 436 Interpretive Statements Poor data quality, interpretation may be adversely affected Sinus tachycardia Right atrial enlargement Electronically Signed On 09-19-2024 8:48:50 PDT by Chau Hogan
[2024-09-19] MEDS: ONDANSETRON 4 MG/2 ML INJ IV (01:16)
[2024-09-19] MEDS: SODIUM CHLORIDE 0.9% 1,000 ML 150 ML IV (01:17)
[2024-09-19] MEDS: ALBUTEROL/IPRATROPIUM 3 ML AMPUL INH (01:39)
[2024-09-19 01:41] LABS: Add Manual Diff / Slide Review NO; Basophils Absolute Auto 0 /uL (0-100); Basophils Percent Auto 0.1 % (0-2); Eosinophils Absolute Auto 0 /uL (0-450); Eosinophils Percent Auto 0.3 % (2-4); Hematocrit 36.8 % (41-53); Hemoglobin 11.5 g/dL (13.5-17.5); Lymphocytes Absolute Auto 1100 /uL (1100-4500); Lymphocytes Percent Auto 6.6 % (25-40); Mean Corpuscular HGB Conc 31.3 % (30-36); Mean Corpuscular Hemoglobin 26.2 PG (26-34); Mean Corpuscular Volume 83.5 fL (80-100); Monocytes Absolute Auto 1400 /uL (0-900); Monocytes Percent Auto 8.7 % (3-14); Neutrophils Absolute Auto 13900 /uL (1500-7000); Neutrophils Percent Auto 84.3 % (50-75); Platelet Count 194 X10^3/uL (150-400); Red Cell Distribution Width 17.8 % (11.6-14.8); White Blood Cell Count 16.5 X10^3/uL (4.5-11.0)
--- NOTE | 2024-09-19 01:41 | PC.NURSE ---
Pt left ER 09/18/24 @ 2130, after getting home started to have N/V. Pain medications are helping but pt states he was advised to return if N/V was not controlled. At bedside is Family/Friend Rachel.
[2024-09-19 02:12] LABS: Alanine Aminotransferase 24 IU/L (<50); Albumin 4.1 g/dL (3.5-5.0); Albumin Globulin Ratio 1.2 (1.0-2.8); Alkaline Phosphatase 66 U/L (38-126); Aspartate Aminotransferase 33 IU/L (17-59); BUN Creatinine Ratio 19.8 (6-22); Bilirubin Total 0.6 mg/dL (0.2-1.3); Blood Urea Nitrogen 20 mg/dL (9-20); Calcium 9.5 mg/dL (8.4-10.2); Carbon Dioxide 37 mmol/L (22-32); Chloride 95 mmol/L (98-107); Estimated Glomerular Filt Rate > 60 mL/min (>60); Globulin 3.4 g/dL (1.7-4.1); Glucose 96 mg/dL (80-110); HEMOLYSIS < 15 (0-50); Lipase 96 U/L (23-300); Potassium 4.1 mmol/L (3.4-5.1); Sodium 140 mmol/L (137-145); Total Protein 7.5 g/dL (6.3-8.2)
--- NOTE | 2024-09-19 02:15 | PC.NURSE ---
pt changed from oxymask to nasal cannula at 2liters, and given water to drink and a wet sponge for his mouth
[2024-09-19] MEDS: PIPERACILLIN/TAZO 4.5 GM in SODIUM CHLORIDE 0.9% 100 ML IV (02:23)
[2024-09-19] MEDS: ACETAMINOPHEN 325 MG TABLET 975 MG PO (03:12)
--- NOTE | 2024-09-19 03:40 | P.HP_ITS ---
History of Present Illness History of Present Illness Date Patient Seen: 09/19/24 Chief complaint: Nausea, vomiting, abdominal pain Narrative: 63 y/o with PMH of HTN, smoking, COPD, GERD, GI bleed, anxiety, constipation, colon diverticulosis and pancreatitis, came to ER complaining on diffuse abdominal pain in lower quadrants, nausea and vomiting. He was unable to hold anything down at home. Last few days he was gradually having these symptoms worsening and was earlier seen in the ED. On that visit started on Augmenting after CT showed diverticulitis. He came back as his symptoms progressed even further. [facility] Medical History (Updated 09/19/24 @ 07:09 by Braden Connors MD) Lung nodule seen on imaging study History of tobacco abuse Fatigue Ventricular tachycardia (paroxysmal) Anemia Palpitations GERD with stricture HTN (hypertension) Insomnia (~2015) Hyperlipidemia (~2015) Anxiety (~2015) COPD (chronic obstructive pulmonary disease) (~2013) Asthma (Unknown) TIA (transient ischemic attack) (05/2014) Hematuria (~2014) Surgical History No pertinent past surgical history Family History Mother Age: 86 Hypertension Sister Age: 69 Cancer Social History household members: none Smoking Status: Current every day smoker Tobacco: How many years used: 47 quit status: considering quitting second hand exposure: No alcohol intake: former substance use type: does not use Meds Home Medications and Allergies Home Medications Medication Instructions Recorded Confirmed Type ascorbate calcium (vitamin C) 500 500 mg PO DAILY 08/06/23 09/19/24 History mg tablet ferrous gluconate 324 mg (38 mg 324 mg PO DAILY #90 tabs 03/28/24 09/19/24 Rx iron) tablet aluminum-mag hydroxide-simethicone See Rx Instructions .Route 05/14/24 09/19/24 History 400 mg-400 mg-40 mg/5 mL oral susp .COMPLEX PRN heartburn/gas montelukast 10 mg tablet 10 mg PO BEDTIME 05/14/24 09/19/24 History multivitamin with minerals-folic 1 tab PO DAILY 05/14/24 09/19/24 History acid 0.4 mg tablet nystatin 100,000 unit/mL oral 5 ml PO QID PRN thrush 05/14/24 09/19/24 History suspension benzonatate 100 mg capsule 100 mg PO BID-TID PRN Cough #270 05/19/24 09/19/24 Rx caps Disabled Parking Permint #1 ea 07/01/24 09/19/24 Rx mometasone-formoterol HFA 200 2 puff PO BID #13 grams 07/22/24 09/19/24 Rx mcg-5 mcg/actuation aerosol inhaler (Dulera) simethicone 80 mg chewable tablet 80 mg PO QID PRN Flatulence #60 08/24/24 09/19/24 Rx (Gas Relief 80 (simethicone)) tabs cetirizine 10 mg tablet 10 mg PO BEDTIME allergy/asthma 08/25/24 09/19/24 History clonazepam 0.5 mg tablet 0.5 mg PO TID #90 tabs 08/25/24 09/19/24 Rx guaifenesin 100 mg/5 mL oral liquid 200 mg PO Q4H PRN cough 08/25/24 09/19/24 History mecobalamin (vitamin B12) 1,000 1,000 mcg PO DAILY 08/25/24 09/19/24 History mcg chewable tablet nitroglycerin 0.3 mg sublingual 0.3 mg sublingual Q5-15M PRN chest 08/25/24 09/19/24 Rx tablet pain #20 tabs ondansetron 4 mg disintegrating 4 mg PO Q6-8H PRN nausea and 08/25/24 09/19/24 History tablet vomiting prednisone 10 mg tablet 40 mg (4 x 10 mg) PO DAILY #30 tabs 08/25/24 09/19/24 Rx simvastatin 20 mg tablet 20 mg PO QPM #90 tabs 08/25/24 09/19/24 Rx albuterol sulfate 2.5 mg/3 mL 2.5 mg (3 mL) inhalation QID PRN 09/09/24 09/19/24 Rx (0.083 %) solution for nebulization shortness of breath or wheezing #180 mL albuterol sulfate 90 mcg/actuation 1 - 2 puff PO Q4H PRN for wheezing 09/09/24 09/19/24 Rx aerosol inhaler (Ventolin HFA) #54 grams ipratropium bromide 0.02 % 2.5 ml inhalation QID PRN 09/09/24 09/19/24 Rx solution for inhalation shortness of breath or wheezing #150 mL amoxicillin 875 mg-potassium 1 tab PO BID #20 tabs 09/18/24 09/19/24 Rx clavulanate 125 mg tablet lactulose 10 gram oral packet 20 g PO BID PRN constipation #15 ea 09/18/24 09/19/24 Rx (Kristalose) Allergies Allergy/AdvReac Type Severity Reaction Status Date / Time cinnamon [CINNAMON] Allergy Severe RESP Verified 08/30/24 11:42 PROBLEMS AND SWELLING Sulfa (Sulfonamide Allergy Severe anaphylacti Verified 08/30/24 11:42 Antibiotics) c [SULFA (SULFONAMIDE ANTIBIOTICS)] fluticasone [FLUTICASONE] Allergy Intermediate FEELS Verified 08/30/24 11:42 LIKE FIRE IN THE LUNGS trimethoprim [TRIMETHOPRIM] Allergy Unknown Patient Verified 08/30/24 11:42 can't remember dextromethorphan AdvReac Severe Difficulty Verified 08/30/24 11:42 Breathing fentanyl AdvReac Severe Difficulty Verified 08/30/24 11:42 Breathing codeine [CODEINE] AdvReac Intermediate violent Verified 08/30/24 11:42 doxycycline [DOXYCYCLINE] AdvReac Mild N/V Verified 08/30/24 11:42 Review of Systems Review of Systems Narrative: General - w/o fever or chills GI - abdominal pain, nausea, vomiting. Without diarrhea. Chronic constipation. CVS - w/o chest pain RS - w/o dyspnea UG - w/o dysuria Exam Vital Signs (past 8 hours): - 09/19/24 01:15 09/19/24 01:20 09/19/24 01:30 Temperature 97.6 F Pulse Rate 102 H 97 H Respiratory Rate 13 18 Blood Pressure 125/67 143/67 H Pulse Oximetry 98 Oxygen Delivery Method Oximask Oxygen Flow Rate 3 Fraction of Inspired Oxygen 09/19/24 01:30 09/19/24 01:39 09/19/24 02:00 Temperature Pulse Rate 102 H 100 H Respiratory Rate 23 12 Blood Pressure 130/58 L Pulse Oximetry 98 97 Oxygen Delivery Method Oximask Oxygen Flow Rate 2 Fraction of Inspired Oxygen 28 09/19/24 02:00 Temperature Pulse Rate 99 H Respiratory Rate 17 Blood Pressure Pulse Oximetry 97 Oxygen Delivery Method Oxygen Flow Rate Fraction of Inspired Oxygen Fraction of Inspired Oxygen 28 SaO2/FiO2 Ratio 346 Oxygen Delivery Method Oximask Oxygen Flow Rate 2 Narrative Exam Narrative: General - in no distress HEENT: normocephalic GI - diffuse palpatory tenderness in lower quadrants CVS - RRR RS - normal respiratory effort Objective ECG Impression: Sinus tachycardia [address] scan - abdomen: Radiologist's impression: Acute uncomplicated sigmoid diverticulitis. Chronic constipation with a large rectal stool ball concerning for obstipation. Chest x-ray: Radiologist's impression: No acute cardiopulmonary abnormality is seen. Labs 09/19/24 01:20 09/19/24 01:20 Labs: Laboratory Results - last 24 hr 09/19/24 01:20 WBC 16.5 H D RBC 4.40 L Hgb 11.5 L Hct 36.8 L MCV 83.5 MCH 26.2 MCHC 31.3 RDW 17.8 H Plt Count 194 Neut % (Auto) 84.3 H Lymph % (Auto) 6.6 L [place] % (Auto) 8.7 Eos % (Auto) 0.3 L Baso % (Auto) 0.1 Neut # (Auto) 48726 H Lymph # (Auto) 1100 [place] # (Auto) 1400 H Eos # (Auto) 0 Baso # (Auto) 0 Sodium 140 Potassium 4.1 Chloride 95 L Carbon Dioxide 37 H BUN 20 Creatinine 1.01 Estimated GFR > 60 BUN/Creatinine Ratio 19.8 Glucose 96 Calcium 9.5 Total Bilirubin 0.6 AST 33 ALT 24 Alkaline Phosphatase 66 Total Protein 7.5 Albumin 4.1 Globulin 3.4 Albumin/Globulin Ratio 1.2 Lipase 96 D Assessment & Plan Assessment and plan (1) Diverticulitis large intestine w/o perforation or abscess w/o bleeding: Status: Acute (2) Constipation: Status: Acute (3) COPD (chronic obstructive pulmonary disease): Problem details: on O2 Status: Acute (4) Chronic hypoxemic respiratory failure: Status: Acute (5) Anemia: Qualifiers: Anemia type: iron deficiency Iron deficiency anemia type: chronic blood loss Qualified Code(s): D50.0 - Iron deficiency anemia secondary to blood loss (chronic) Status: Acute (6) GERD (gastroesophageal reflux disease): Qualifiers: Esophagitis presence: with esophagitis Esophagitis bleeding: without hemorrhage Qualified Code(s): K21.00 - Gastro-esophageal reflux disease with esophagitis, without bleeding Status: Acute (7) Hyperlipidemia: Qualifiers: Hyperlipidemia type: mixed hyperlipidemia Qualified Code(s): E78.2 - Mixed hyperlipidemia Status: Acute Assessment & Plan narrative: Acute Sigmoid Diverticulitis - NPO, IVFs, antiemetics, pain management - Zosyn - 2nd to chronic constipation, including prior visits - bowel care Oxygen-dependent COPD - Pulmicort, albuterol, oxygen - w/o evidence of exacerbation Anemia - apparently iron-deficient - on Fe at home, could be contributing to constipation - checking levels HLD - on statin at home DVT / GI prophylaxis - heparin / Protonix iv while npo Time-Based Coding :: [TOTAL MINUTES] spent with patient and on the chart (including review of chart, obtaining history, exam, reviewing outside data, placing orders, documenting exam and treatment plan, and counseling patient) on [DATE].
--- NOTE | 2024-09-19 04:37 | PC.WOUNDPHOT ---
blanchable redness to sacrum small open area
[2024-09-19] MEDS: DEXTROSE 5%-0.9% NS 1,000 ML 100 ML IV ×2 (05:16→15:56)
[2024-09-19] MEDS: PIPERACILLIN/TAZO 3.375 GM in SODIUM CHLORIDE 0.9% 100 ML IV ×3 (06:19→22:26)
--- NOTE | 2024-09-19 07:46 | PM.HP.1 ---
History of Present Illness History of Present Illness Date Patient Seen: 09/19/24 Chief complaint: Nausea, vomiting, abdominal pain Narrative: From night doctor: 63 y/o with PMH of HTN, smoking, COPD, GERD, GI bleed, anxiety, constipation, colon diverticulosis and pancreatitis, came to ER complaining on diffuse abdominal pain in lower quadrants, nausea and vomiting. He was unable to hold anything down at home. Last few days he was gradually having these symptoms worsening and was earlier seen in the ED. On that visit started on Augmenting after CT showed diverticulitis. He came back as his symptoms progressed even further. S: He was doing well for about 2 weeks after his discharge. He then developed some recurrent lower abdominal pain. He was had some constipation, no rectal bleeding. He denies any diarrhea. He was had a normal appetite. CT imaging indicated diverticulitis. He was given enemas and a suppository yesterday. [facility] Medical History Lung nodule seen on imaging study History of tobacco abuse Fatigue Ventricular tachycardia (paroxysmal) Anemia Palpitations GERD with stricture HTN (hypertension) Insomnia (~2015) Hyperlipidemia (~2015) Anxiety (~2015) COPD (chronic obstructive pulmonary disease) (~2013) Asthma (Unknown) TIA (transient ischemic attack) (05/2014) Hematuria (~2014) Surgical History No pertinent past surgical history Family History Mother Age: 86 Hypertension Sister Age: 69 Cancer Social History household members: none Smoking Status: Current every day smoker Tobacco: How many years used: 47 quit status: considering quitting second hand exposure: No alcohol intake: former substance use type: does not use Meds Home Medications and Allergies Home Medications Medication Instructions Recorded Confirmed Type ascorbate calcium (vitamin C) 500 500 mg PO DAILY 08/06/23 09/19/24 History mg tablet ferrous gluconate 324 mg (38 mg 324 mg PO DAILY #90 tabs 03/28/24 09/19/24 Rx iron) tablet aluminum-mag hydroxide-simethicone See Rx Instructions .Route 05/14/24 09/19/24 History 400 mg-400 mg-40 mg/5 mL oral susp .COMPLEX PRN heartburn/gas montelukast 10 mg tablet 10 mg PO BEDTIME 05/14/24 09/19/24 History multivitamin with minerals-folic 1 tab PO DAILY 05/14/24 09/19/24 History acid 0.4 mg tablet nystatin 100,000 unit/mL oral 5 ml PO QID PRN thrush 05/14/24 09/19/24 History suspension benzonatate 100 mg capsule 100 mg PO BID-TID PRN Cough #270 05/19/24 09/19/24 Rx caps Disabled Parking Permint #1 ea 07/01/24 09/19/24 Rx mometasone-formoterol HFA 200 2 puff PO BID #13 grams 07/22/24 09/19/24 Rx mcg-5 mcg/actuation aerosol inhaler (Dulera) simethicone 80 mg chewable tablet 80 mg PO QID PRN Flatulence #60 08/24/24 09/19/24 Rx (Gas Relief 80 (simethicone)) tabs cetirizine 10 mg tablet 10 mg PO BEDTIME allergy/asthma 08/25/24 09/19/24 History clonazepam 0.5 mg tablet 0.5 mg PO TID #90 tabs 08/25/24 09/19/24 Rx guaifenesin 100 mg/5 mL oral liquid 200 mg PO Q4H PRN cough 08/25/24 09/19/24 History mecobalamin (vitamin B12) 1,000 1,000 mcg PO DAILY 08/25/24 09/19/24 History mcg chewable tablet nitroglycerin 0.3 mg sublingual 0.3 mg sublingual Q5-15M PRN chest 08/25/24 09/19/24 Rx tablet pain #20 tabs ondansetron 4 mg disintegrating 4 mg PO Q6-8H PRN nausea and 08/25/24 09/19/24 History tablet vomiting prednisone 10 mg tablet 40 mg (4 x 10 mg) PO DAILY #30 tabs 08/25/24 09/19/24 Rx simvastatin 20 mg tablet 20 mg PO QPM #90 tabs 08/25/24 09/19/24 Rx albuterol sulfate 2.5 mg/3 mL 2.5 mg (3 mL) inhalation QID PRN 09/09/24 09/19/24 Rx (0.083 %) solution for nebulization shortness of breath or wheezing #180 mL albuterol sulfate 90 mcg/actuation 1 - 2 puff PO Q4H PRN for wheezing 09/09/24 09/19/24 Rx aerosol inhaler (Ventolin HFA) #54 grams ipratropium bromide 0.02 % 2.5 ml inhalation QID PRN 09/09/24 09/19/24 Rx solution for inhalation shortness of breath or wheezing #150 mL amoxicillin 875 mg-potassium 1 tab PO BID #20 tabs 09/18/24 09/19/24 Rx clavulanate 125 mg tablet lactulose 10 gram oral packet 20 g PO BID PRN constipation #15 ea 09/18/24 09/19/24 Rx (Kristalose) Allergies Allergy/AdvReac Type Severity Reaction Status Date / Time cinnamon [CINNAMON] Allergy Severe RESP Verified 08/30/24 11:42 PROBLEMS AND SWELLING Sulfa (Sulfonamide Allergy Severe anaphylacti Verified 08/30/24 11:42 Antibiotics) c [SULFA (SULFONAMIDE ANTIBIOTICS)] fluticasone [FLUTICASONE] Allergy Intermediate FEELS Verified 08/30/24 11:42 LIKE FIRE IN THE LUNGS trimethoprim [TRIMETHOPRIM] Allergy Unknown Patient Verified 08/30/24 11:42 can't remember dextromethorphan AdvReac Severe Difficulty Verified 08/30/24 11:42 Breathing fentanyl AdvReac Severe Difficulty Verified 08/30/24 11:42 Breathing codeine [CODEINE] AdvReac Intermediate violent Verified 08/30/24 11:42 doxycycline [DOXYCYCLINE] AdvReac Mild N/V Verified 08/30/24 11:42 Review of Systems Review of Systems Narrative: All else reviewed and otherwise unremarkable except as noted in the history and physical. Exam Vital Signs (past 8 hours): - 09/19/24 01:15 09/19/24 01:20 09/19/24 01:30 Temperature 97.6 F Pulse Rate 102 H 97 H Respiratory Rate 13 18 Blood Pressure 125/67 143/67 H Pulse Oximetry 98 Oxygen Delivery Method Oximask Oxygen Flow Rate 3 Fraction of Inspired Oxygen 09/19/24 01:30 09/19/24 01:39 09/19/24 02:00 Temperature Pulse Rate 102 H 100 H Respiratory Rate 23 12 Blood Pressure 130/58 L Pulse Oximetry 98 97 Oxygen Delivery Method Oximask Oxygen Flow Rate 2 Fraction of Inspired Oxygen 28 09/19/24 02:00 09/19/24 02:30 09/19/24 02:30 Temperature Pulse Rate 99 H 100 H Respiratory Rate 17 20 Blood Pressure 137/65 Pulse Oximetry 97 93 Oxygen Delivery Method Oxygen Flow Rate Fraction of Inspired Oxygen 09/19/24 03:00 09/19/24 03:00 09/19/24 03:30 Temperature Pulse Rate 104 H Respiratory Rate 20 Blood Pressure 137/68 128/60 Pulse Oximetry 93 Oxygen Delivery Method Oxygen Flow Rate Fraction of Inspired Oxygen 09/19/24 03:30 09/19/24 03:45 09/19/24 04:49 Temperature 98.3 F Pulse Rate 95 H 107 H Respiratory Rate 17 20 Blood Pressure 125/61 Pulse Oximetry 95 96 Oxygen Delivery Method Nasal Cannula Nasal Cannula Oxygen Flow Rate 2 2 Fraction of Inspired Oxygen Fraction of Inspired Oxygen 28 SaO2/FiO2 Ratio 346 Oxygen Delivery Method Nasal Cannula Oxygen Flow Rate 2 Narrative Exam Narrative: NAD, alert and oriented, fluent speech, calm. Normocephalic skull, EOMI, anicteric sclera, symmetric pupils. Oropharynx unremarkable, no droop. Neck supple, midline trachea, no adenopathy. Lungs clear, normal rate and effort. Some scattered rhonchi. Heart regular, no murmur gallop or rub. Abdomen is soft, non distended and non tender. No guarding. Extremities are free of edema. Skin is free of rash or lesions. Joints are not swollen or deformed. Judgment appears to be normal. Objective ECG Impression: Sinus tachycardia Right atrial enlargement Imaging Chest x-ray: Radiologist's impression: No acute cardiopulmonary abnormality is seen. CT scan - abdomen: Radiologist's impression: Acute uncomplicated sigmoid diverticulitis. Chronic constipation with a large rectal stool ball concerning for obstipation. Labs 09/19/24 01:20 09/19/24 01:20 Labs: Laboratory Results - last 24 hr 09/19/24 01:20 WBC 16.5 H D RBC 4.40 L Hgb 11.5 L Hct 36.8 L MCV 83.5 MCH 26.2 MCHC 31.3 RDW 17.8 H Plt Count 194 Neut % (Auto) 84.3 H Lymph % (Auto) 6.6 L [place] % (Auto) 8.7 Eos % (Auto) 0.3 L Baso % (Auto) 0.1 Neut # (Auto) 50152 H Lymph # (Auto) 1100 [place] # (Auto) 1400 H Eos # (Auto) 0 Baso # (Auto) 0 Sodium 140 Potassium 4.1 Chloride 95 L Carbon Dioxide 37 H BUN 20 Creatinine 1.01 Estimated GFR > 60 BUN/Creatinine Ratio 19.8 Glucose 96 Calcium 9.5 Total Bilirubin 0.6 AST 33 ALT 24 Alkaline Phosphatase 66 Total Protein 7.5 Albumin 4.1 Globulin 3.4 Albumin/Globulin Ratio 1.2 Lipase 96 D Assessment & Plan Assessment & Plan narrative: 1. Acute Sigmoid Diverticulitis, present on admission and active. - NPO, IVFs, antiemetics, pain management - Zosyn 2. COPD, present on admission and active. - Pulmicort, albuterol, oxygen - w/o evidence of exacerbation 3. Chronic hypoxic respiratory failure, present on admission and active. 4. Anemia, present on admission and active. - apparently iron-deficient - on Fe at home, could be contributing to constipation - checking levels 5. HLD, present on admission and active. - on statin at home PLAN: -clear liquid diet. -continue IV antibiotics. JAYMIE: 09/20, home with . DVT / GI prophylaxis - heparin / Protonix iv while npo Time-Based Coding :: 40 min spent with patient and on the chart (including review of chart, obtaining history, exam, reviewing outside data, placing orders, documenting exam and treatment plan, and counseling patient) on 09/19. Quality MIPS - Admit I confirm the patient?s Advance Care Plan is present, Code status is documented, Surrogate decision maker is in patient?s record [If Yes, STOP here]: Yes MIPS - Meds 'Current medications' to include all prescriptions, [id number] products, herbals, cannabis/cannabidiol products, and vitamin/mineral/dietary (nutritional) supplements. I have utilized all available resources to obtain, update, or review the patient?s current medications. [If Yes, STOP here]: Yes
[2024-09-19] MEDS: PANTOPRAZOLE 40 MG VIAL 20 MG IV (08:50)
[2024-09-19] MEDS: HEPARIN 5,000 UNIT/ML VIAL 5000 UNIT SUBCUT ×2 (08:50→20:30)
[2024-09-19] MEDS: ALBUTEROL 2.5 MG/3 ML NEB (ADULT) INH ×4 (09:11→23:28)
[2024-09-19] MEDS: BUDESONIDE 0.5 MG/2 ML NEB INH ×2 (09:11→19:01)
--- NOTE | 2024-09-19 09:12 | PC.NURSE ---
Patient is pleasant, he is using a sponge to wet his mouth but understands that he is npo. Just gave heparin injection and some iv protonix. Patient denies pain at this time, but knows to call if he nees pain medication. BT are active x 4 quadrants and he is resting now.
--- NOTE | 2024-09-19 11:53 | DIET.CONS ---
Dietary Consultation Note Admission Date: 09/19/2024 02:37 Assessment: 63 y M admitted for N/V/abd pain. Dietitian consulted for low appetite. Met with pt at bedside. Reports PO intakes were almost back to normal after d/c from last admission. Eating 3 meals per day-fruit smoothies, yogurt, cream of wheat for breakfast, yogurt and chicken salad for lunch, sandwiches/soups for dinner. Reports started having no appetite day he went to ER. Has appetite now, was advanced to full liquids. Ht: 175.26 cm Wt: 79.379 kg BMI: 25.8 UBW: 08/10/24 was 79.152 kg, 12/17/23 was 74.446 kg, no recent weight loss. Pt unsure of recent his recent UBW Last BM: 09/19/24 (09/19/24 03:50) MNA: 9 Matthew Score: 18 Diet: 09/19/24 03:31 NPO Diet Diet Modifications: NPO Type: NPO except for Ice Chips 09/19/24 Lunch Full Liquid Diet Diet Modifications: Labs: RBC 4.40 X10^6/uL (4.5-5.9) L 09/19/24 01:20 Hgb 11.5 g/dL (13.5-17.5) L 09/19/24 01:20 Hct 36.8 % (41-53) L 09/19/24 01:20 Creatinine 1.01 mg/dL (0.66-1.25) 09/19/24 01:20 Monitoring/Evaluations: Monitoring diet tolerance and PO intakes Electronically Signed by: Alyssa Srinivasan 09/19/24 11:53 Clinical Dietitian [address] [address]
[2024-09-19] MEDS: clonazePAM 0.5 MG TABLET PO ×2 (12:30→20:30)
[2024-09-19] MEDS: predniSONE 20 MG TABLET 40 MG PO (13:49)
--- NOTE | 2024-09-19 15:40 | CM.DANOTE ---
Patient is a 63 yo male who was admitted INPT Status on 09/19/24 for Diverticulitis. Pt has [facility] for insurance and his PCP is Dr. Saqib Oliva. EMR was reviewed. Per MD, pt with hx of COPD, anxiety, pancreatitis and admitted for Diverticulitis. IV abx and IV fluids and NPO but advanced to clears. Pt recently admitted in Aug 2024 for similar and was able to d/c home via family POV and his ongoing [facility] and [facility]. [facility] confirms that they are open with pt for services and just need d/c summary and Resumption Orders at discharge. SW met bedside with pt and explained role and he confirms he lives at home alone in [place] and is somewhat independent with ADLs at baseline but doesn't drive. Pt has local family support and his sister Antonina is his DPOA and he is likely adding his other sister Nayely as backup POA as well. Pt also has nieces and nephews that visit and help out. Pt has [employer] [employer] Elizabeth (p [phone], [email or web address]) and JENNIFER CM October P [phone] and his current JENN[facility]ER caregivers are through [place] (Thursday afternoon) and [employer] (Thu and 9am-3pm). Pt preference is to return home at discharge and state his family usually provides transport home and he would like to continue with [facility] and he has home O2 through [facility] at baseline. H&P faxed to JENNIFER CM to review. Plan: SW to follow to confirm safe plan of home with family support and [facility] 3x week and Resumption of [facility] and any further identified discharge planning needs. GILDA Gutierrez Discharge Planning/Care Management CM Discharge Assessment Start: 09/19/24 15:37 Freq: Status: Active Protocol: Document 09/19/24 15:37 BF (Rec: 09/19/24 15:40 BF [id number]) Discharge Planning Assessment Assigned General Education Professor GILDA Eisenberg DPOA/Assigned Designee Name sister Antonina Contact Information [phone] Advance Directives? No Advance Directives on File No History Provided By Patient,Medical Record Has Patient been admitted in last 30 Yes days? Comment Aug 2024 and discharged home with new [facility] Prior Living Arrangements House Household Members none Comment [facility] 3x week Type of transporation used prior to Relies on Others admit Independent with ADL's Yes: somewhat Is patient alert and oriented? Yes Needs Assistance With Meal Prep,Managing Medications ,Home Chores / Shopping Caregiver for Another No Community Services used prior to Physical Therapy,Occupational admission: Therapy,Home Health Aid,Home Health Nurse Comment Open with [facility] Already Rented / Owned FWW / Walker,Cane,Oxygen Comment His oxygen is provided with [employer]. Patient/Family Preference Home with Home Health Barriers to Discharge No Comment Patient has caregivers through [employer] that come in, and he also has family in the area. Discharge Plan Home with Home Health Community Services Physical Therapy,Occupational Therapy,Home Health Aid,Home Health Nurse Transportation Arrangement Family Referrals Initiated Home Health Additional Comment Resumption of [facility] If patient plan is home with home health No: not needed, Resume Orders : Has signed face to face form been completed? Medicare Choice List Provided Yes Medicare choice list reviewed on patient electronic tablet with Whiteboard Updated in Patient Room with Yes name and ext. # of General Education Professor Review Status In Process Please Provide Date Initial DC 09/19/24 Assessment Was Performed Next Review Type Continued Stay Review
[2024-09-19] MEDS: MONTELUKAST 10 MG TABLET PO (20:30)
[2024-09-19] MEDS: ATORVASTATIN 20 MG TABLET 10 MG PO (20:30)
[2024-09-19] MEDS: LORATADINE 10 MG TABLET PO (20:30)
[2024-09-19] MEDS: HYDROMORPHONE 0.5 MG INJ IV (22:30)
[2024-09-20] VITALS (11 sets, daily range): BP systolic 112–136; BP diastolic 58–69; PULSE 76–93; RESP 16–22; TEMP 36.1–36.7; O2SAT 94–99
[2024-09-20] MEDS: DEXTROSE 5%-0.9% NS 1,000 ML 100 ML IV (01:26)
[2024-09-20] MEDS: PIPERACILLIN/TAZO 3.375 GM in SODIUM CHLORIDE 0.9% 100 ML IV ×3 (06:26→23:52)
--- NOTE | 2024-09-20 07:05 | P.PN_ITS ---
Subjective Subjective Interval history: Summary: 63 y/o with PMH of HTN, smoking, COPD, GERD, GI bleed, anxiety, constipation, colon diverticulosis and pancreatitis, came to ER complaining on diffuse abdominal pain in lower quadrants, nausea and vomiting. He was unable to hold anything down at home. Last few days he was gradually having these symptoms worsening and was earlier seen in the ED. On that visit started on Augmenting after CT showed diverticulitis. He came back as his symptoms progressed even further. S: He was more abdominal pain and distention today. He does have evidence of diverticulitis on CT as well as a fair amount of lower colonic stool. He does have chronic constipation. He was given lactulose today and had a very small bowel movement. His gas he was distention makes it hard for him to breathe with his chronic lung disease. He also has a lot of anxiety which is acting up. He notes increased mucus and phlegm. Exam Vital Signs (past 8 hours): - 09/19/24 23:28 09/20/24 00:00 09/20/24 04:00 Temperature 97.3 F L 97.4 F L Pulse Rate 81 82 81 Respiratory Rate 17 17 18 Blood Pressure 112/58 L 121/59 L Pulse Oximetry 95 96 97 Oxygen Delivery Method Nasal Cannula Oxygen Flow Rate 2 2 2 Fraction of Inspired Oxygen 28 Fraction of Inspired Oxygen 28 SaO2/FiO2 Ratio 339 Oxygen Delivery Method Nasal Cannula Oxygen Flow Rate 2 Narrative Exam Narrative: NAD, alert and oriented. Fluent speech. Anxious. Lungs are clear, normal rate and effort. Diminished BS. Heart is regular, no murmur gallop or rub. Abdomen is soft, distended, minimally tender diffusely. Extremities are free of edema. Objective Imaging CT scan - abdomen: Radiologist's impression: Acute uncomplicated sigmoid diverticulitis. Chronic constipation with a large rectal stool ball concerning for obstipation. Labs 09/19/24 01:20 09/19/24 01:20 [facility] Medical History Lung nodule seen on imaging study History of tobacco abuse Fatigue Ventricular tachycardia (paroxysmal) Anemia Palpitations GERD with stricture HTN (hypertension) Insomnia (~2015) Hyperlipidemia (~2015) Anxiety (~2015) COPD (chronic obstructive pulmonary disease) (~2013) Asthma (Unknown) TIA (transient ischemic attack) (05/2014) Hematuria (~2014) Surgical History No pertinent past surgical history Family History Mother Age: 86 Hypertension Sister Age: 69 Cancer Social History household members: none Smoking Status: Current every day smoker Tobacco: How many years used: 47 quit status: considering quitting second hand exposure: No alcohol intake: former substance use type: does not use Assessment & Plan Assessment & Plan narrative: 1. Acute Sigmoid Diverticulitis, present on admission and active. - NPO, IVFs, antiemetics, pain management - Zosyn 2. Chronic constipation, present on admission and active. 3. COPD, present on admission and active. - Pulmicort, albuterol, oxygen - w/o evidence of exacerbation 4. Chronic hypoxic respiratory failure, present on admission and active. 5. Anemia, present on admission and active. - apparently iron-deficient - on Fe at home, could be contributing to constipation 6. HLD, present on admission and active. - on statin at home PLAN: -clear liquid diet. -continue IV antibiotics. -Lactulose today. -Dulcolax Supp PRN. JAYMIE: 09/21, home with . DVT / GI prophylaxis - heparin / Protonix iv while npo Time-Based Coding :: [TOTAL MINUTES] spent with patient and on the chart (including review of chart, obtaining history, exam, reviewing outside data, placing orders, documenting exam and treatment plan, and counseling patient) on [DATE].
[2024-09-20] MEDS: BUDESONIDE 0.5 MG/2 ML NEB INH ×2 (07:09→18:51)
[2024-09-20] MEDS: ALBUTEROL 2.5 MG/3 ML NEB (ADULT) INH ×5 (07:09→23:47)
[2024-09-20] MEDS: predniSONE 20 MG TABLET 40 MG PO (08:39)
[2024-09-20] MEDS: PANTOPRAZOLE 40 MG VIAL 20 MG IV (08:39)
[2024-09-20] MEDS: clonazePAM 0.5 MG TABLET PO ×3 (08:39→20:04)
[2024-09-20] MEDS: HEPARIN 5,000 UNIT/ML VIAL 5000 UNIT SUBCUT ×2 (08:39→20:04)
[2024-09-20] MEDS: ACETAMINOPHEN 325 MG TABLET 650 MG PO ×2 (09:14→16:20)
[2024-09-20] MEDS: TRAMADOL 50 MG TABLET PO ×2 (09:14→16:20)
[2024-09-20] MEDS: LACTULOSE 20 GM/30 ML SOLUTION 30 GM PO ×2 (09:15→15:19)
[2024-09-20] MEDS: MONTELUKAST 10 MG TABLET PO (20:04)
[2024-09-20] MEDS: ATORVASTATIN 20 MG TABLET 10 MG PO (20:04)
[2024-09-20] MEDS: LORATADINE 10 MG TABLET PO (20:04)
[2024-09-21] VITALS (9 sets, daily range): BP systolic 121–135; BP diastolic 68–77; PULSE 72–89; RESP 14–22; TEMP 35.9–36.8; O2SAT 95–100
[2024-09-21] MEDS: PIPERACILLIN/TAZO 3.375 GM in SODIUM CHLORIDE 0.9% 100 ML IV ×2 (06:17→15:10)
[2024-09-21] MEDS: PANTOPRAZOLE DR 20 MG TABLET PO (06:21)
[2024-09-21 08:26] LABS: Add Manual Diff / Slide Review NO; Basophils Absolute Auto 0 /uL (0-100); Basophils Percent Auto 0.4 % (0-2); Eosinophils Absolute Auto 0 /uL (0-450); Eosinophils Percent Auto 0.7 % (2-4); Hematocrit 31.4 % (41-53); Hemoglobin 9.8 g/dL (13.5-17.5); Lymphocytes Absolute Auto 1700 /uL (1100-4500); Lymphocytes Percent Auto 28.8 % (25-40); Mean Corpuscular HGB Conc 31.1 % (30-36); Mean Corpuscular Hemoglobin 26.5 PG (26-34); Mean Corpuscular Volume 85.1 fL (80-100); Monocytes Absolute Auto 500 /uL (0-900); Monocytes Percent Auto 8.1 % (3-14); Neutrophils Absolute Auto 3600 /uL (1500-7000); Platelet Count 148 X10^3/uL (150-400); Red Blood Cell Count 3.69 X10^6/uL (4.5-5.9); White Blood Cell Count 5.8 X10^3/uL (4.5-11.0)
[2024-09-21] MEDS: BUDESONIDE 0.5 MG/2 ML NEB INH ×2 (08:27→19:42)
[2024-09-21] MEDS: ALBUTEROL 2.5 MG/3 ML NEB (ADULT) INH ×4 (08:27→23:07)
[2024-09-21 08:43] LABS: Alanine Aminotransferase 21 IU/L (<50); Albumin 3.2 g/dL (3.5-5.0); Albumin Globulin Ratio 1.1 (1.0-2.8); Alkaline Phosphatase 51 U/L (38-126); Aspartate Aminotransferase 29 IU/L (17-59); BUN Creatinine Ratio 11.5 (6-22); Bilirubin Total 0.2 mg/dL (0.2-1.3); Blood Urea Nitrogen 9 mg/dL (9-20); Calcium 8.3 mg/dL (8.4-10.2); Carbon Dioxide 35 mmol/L (22-32); Chloride 104 mmol/L (98-107); Estimated Glomerular Filt Rate > 60 mL/min (>60); Globulin 2.8 g/dL (1.7-4.1); Glucose 90 mg/dL (80-110); HEMOLYSIS < 15 (0-50); Magnesium 2.1 mg/dL (1.6-2.3); Potassium 4.1 mmol/L (3.4-5.1); Sodium 141 mmol/L (137-145)
[2024-09-21] MEDS: LACTULOSE 20 GM/30 ML SOLUTION 30 GM PO ×3 (08:50→20:47)
[2024-09-21] MEDS: TRAMADOL 50 MG TABLET PO ×2 (08:50→13:57)
[2024-09-21] MEDS: clonazePAM 0.5 MG TABLET PO ×3 (08:50→20:47)
[2024-09-21] MEDS: predniSONE 20 MG TABLET 40 MG PO (08:50)
[2024-09-21] MEDS: ACETAMINOPHEN 325 MG TABLET 650 MG PO ×3 (08:51→20:56)
[2024-09-21] MEDS: HEPARIN 5,000 UNIT/ML VIAL 5000 UNIT SUBCUT ×2 (08:52→20:47)
--- NOTE | 2024-09-21 10:31 | DIET.PN1 ---
Dietary Progress Note Assessment: Dietitian f/u. Met with pt at bedside who reports eating eggs and sausage and oranges from breakfast but feeling overly full afterwards and wanting something roll off driver for lunch (i.e yogurt, fruit) Doing Ensure BID to help support EER, pt does this at home as well. Ht: 175.26 cm Wt: 79.379 kg BMI: 25.8 UBW: Last BM: 09/20/24 (09/20/24 19:52) MNA: 9 Matthew Score: 18 Diet: 09/21/24 Breakfast General (Regular) Diet Diet Modifications: Food Texture: Level 7 - Regular Liquid Consistency: Level 0 - Thin Nutrition Percent Meal Consumed 50% 09/20/24 18:00 Labs: RBC 3.69 X10^6/uL (4.5-5.9) L 09/21/24 08:15 Hgb 9.8 g/dL (13.5-17.5) L 09/21/24 08:15 Hct 31.4 % (41-53) L 09/21/24 08:15 Creatinine 0.78 mg/dL (0.66-1.25) 09/21/24 08:15 Nutrition Diagnosis: Altered GI function r/t alterations in GI tract aeb acute sigmoid diverticulitis Interventions: 1. Continue ONS BID 2. Provided educ on low fiber dietary pattern during flare up of diverticulitis and increase in fiber to higher fiber dietary pattern when flare up resolves to prevent flare ups and constipation Monitoring/Evaluations: PO intake tolerance Electronically Signed by: Alyssa Srinivasan 09/21/24 10:31 Clinical Dietitian [address] [address]
--- NOTE | 2024-09-21 14:18 | CM.DPC ---
DCP Cont. Reviewed EMR and team rounds for status updates. Pt has advanced his diet now to baseline, however he is still having pain, and is still on IV ABO's. Anticipate another 1-2 days before d/c readiness. Plan is home with Julia [facility].
--- NOTE | 2024-09-21 16:22 | PM.PN.1 ---
Subjective Subjective Interval history: Summary: 63 y/o with PMH of HTN, smoking, COPD, GERD, GI bleed, anxiety, constipation, colon diverticulosis and pancreatitis, came to ER complaining on diffuse abdominal pain in lower quadrants, nausea and vomiting. He was unable to hold anything down at home. Last few days he was gradually having these symptoms worsening and was earlier seen in the ED. On that visit started on Augmenting after CT showed diverticulitis. He came back as his symptoms progressed even further. S: Continues to have LLQ abdominal pain and bloating, he is tolerating some diet. Marked improvement in leukocytosis, but all cell lines down likely due somewhat to fluids. Exam Vital Signs (past 8 hours): - 09/21/24 08:27 09/21/24 09:01 09/21/24 12:00 Temperature 97.3 F L Pulse Rate 88 76 Respiratory Rate 16 14 Blood Pressure 135/71 Pulse Oximetry 98 97 Oxygen Delivery Method Nasal Cannula Nasal Cannula Oxygen Flow Rate 2 09/21/24 15:41 09/21/24 16:00 Temperature 97.7 F Pulse Rate 87 89 Respiratory Rate 16 22 Blood Pressure 125/77 Pulse Oximetry 98 96 Oxygen Delivery Method Nasal Cannula Oxygen Flow Rate 2 2 Fraction of Inspired Oxygen 28 SaO2/FiO2 Ratio 350 Oxygen Delivery Method Nasal Cannula Oxygen Flow Rate 2 Narrative Exam Narrative: NAD, alert and oriented. Fluent speech. Anxious. Lungs are clear, normal rate and effort. Diminished BS. Heart is regular, no murmur gallop or rub. Abdomen is soft, distended, minimally tender diffusely. Extremities are free of edema. Objective Labs 09/21/24 08:15 09/21/24 08:15 Labs: Laboratory Results - last 24 hr 09/21/24 08:15 WBC 5.8 RBC 3.69 L Hgb 9.8 L Hct 31.4 L MCV 85.1 MCH 26.5 MCHC 31.1 RDW 18.0 H Plt Count 148 L Neut % (Auto) 62.0 Lymph % (Auto) 28.8 [place] % (Auto) 8.1 Eos % (Auto) 0.7 L Baso % (Auto) 0.4 Neut # (Auto) 3600 Lymph # (Auto) 1700 [place] # (Auto) 500 Eos # (Auto) 0 Baso # (Auto) 0 Sodium 141 Potassium 4.1 Chloride 104 Carbon Dioxide 35 H BUN 9 Creatinine 0.78 Estimated GFR > 60 BUN/Creatinine Ratio 11.5 Glucose 90 Calcium 8.3 L Magnesium 2.1 Total Bilirubin 0.2 AST 29 ALT 21 Alkaline Phosphatase 51 Total Protein 6.0 L Albumin 3.2 L Globulin 2.8 Albumin/Globulin Ratio 1.1 [facility] Medical History Lung nodule seen on imaging study History of tobacco abuse Fatigue Ventricular tachycardia (paroxysmal) Anemia Palpitations GERD with stricture HTN (hypertension) Insomnia (~2015) Hyperlipidemia (~2015) Anxiety (~2015) COPD (chronic obstructive pulmonary disease) (~2013) Asthma (Unknown) TIA (transient ischemic attack) (05/2014) Hematuria (~2014) Surgical History No pertinent past surgical history Family History Mother Age: 86 Hypertension Sister Age: 69 Cancer Social History household members: none Smoking Status: Current every day smoker Tobacco: How many years used: 47 quit status: considering quitting second hand exposure: No alcohol intake: former substance use type: does not use Assessment & Plan Assessment & Plan narrative: 1. Acute Sigmoid Diverticulitis, present on admission and active. - continue zosyn, stop IV fluids. He is still distended and tender, not tolerating much of a diet. - switch from IV to PO opiates - continue lactulose for now, reduce to prn if improvement in abdominal pain - h/h decline, likely due to fluids, continue to follow with CBC 2. Chronic constipation, present on admission and active. 3. COPD, present on admission and active. - Pulmicort, albuterol, oxygen - w/o evidence of exacerbation 4. Chronic hypoxic respiratory failure, present on admission and active. - continue supplemental O2 for goal 88-96% while on supplemental therapy. 5. Anemia, present on admission and active. - apparently iron-deficient - on Fe at home, could be contributing to constipation 6. HLD, present on admission and active. - on statin at home PLAN: -advance to regular diet -continue IV antibiotics. -Lactulose today. -Dulcolax Supp PRN. JAYMIE: Possible 1-2 more days, home with . DVT / GI prophylaxis - HSQ Time-Based Coding :: [TOTAL MINUTES] spent with patient and on the chart (including review of chart, obtaining history, exam, reviewing outside data, placing orders, documenting exam and treatment plan, and counseling patient) on [DATE].
[2024-09-21] MEDS: HYDROMORPHONE 2 MG TABLET PO (16:32)
[2024-09-21] MEDS: LORATADINE 10 MG TABLET PO (20:47)
[2024-09-21] MEDS: ATORVASTATIN 20 MG TABLET 10 MG PO (20:47)
[2024-09-21] MEDS: MONTELUKAST 10 MG TABLET PO (20:47)
[2024-09-21] MEDS: KETOROLAC 30 MG/ML VIAL 15 MG IV (20:55)
[2024-09-22] VITALS (12 sets, daily range): BP systolic 126–175; BP diastolic 65–97; PULSE 75–105; RESP 16–24; TEMP 36.2–37.1; O2SAT 95–98
[2024-09-22] MEDS: PIPERACILLIN/TAZO 3.375 GM in SODIUM CHLORIDE 0.9% 100 ML IV ×4 (00:20→23:54)
[2024-09-22] MEDS: PANTOPRAZOLE DR 20 MG TABLET PO (05:56)
[2024-09-22] MEDS: BUDESONIDE 0.5 MG/2 ML NEB INH ×2 (06:20→19:50)
[2024-09-22] MEDS: ALBUTEROL 2.5 MG/3 ML NEB (ADULT) INH ×5 (06:20→23:23)
[2024-09-22] MEDS: clonazePAM 0.5 MG TABLET PO ×3 (08:25→20:30)
[2024-09-22] MEDS: predniSONE 20 MG TABLET 40 MG PO (08:25)
[2024-09-22] MEDS: LACTULOSE 20 GM/30 ML SOLUTION 30 GM PO ×3 (08:32→20:31)
[2024-09-22] MEDS: HEPARIN 5,000 UNIT/ML VIAL 5000 UNIT SUBCUT ×2 (08:32→20:30)
[2024-09-22 10:13] LABS: Add Manual Diff / Slide Review NO; Basophils Absolute Auto 0 /uL (0-100); Basophils Percent Auto 0.5 % (0-2); Eosinophils Absolute Auto 0 /uL (0-450); Eosinophils Percent Auto 0.3 % (2-4); Hematocrit 30.7 % (41-53); Hemoglobin 9.8 g/dL (13.5-17.5); Lymphocytes Absolute Auto 1500 /uL (1100-4500); Mean Corpuscular HGB Conc 31.9 % (30-36); Mean Corpuscular Hemoglobin 26.8 PG (26-34); Mean Corpuscular Volume 84.2 fL (80-100); Monocytes Absolute Auto 600 /uL (0-900); Monocytes Percent Auto 7.7 % (3-14); Neutrophils Absolute Auto 5100 /uL (1500-7000); Neutrophils Percent Auto 70.5 % (50-75); Platelet Count 170 X10^3/uL (150-400); Red Blood Cell Count 3.64 X10^6/uL (4.5-5.9); Red Cell Distribution Width 17.5 % (11.6-14.8); White Blood Cell Count 7.2 X10^3/uL (4.5-11.0)
[2024-09-22 10:30] LABS: BUN Creatinine Ratio 10.6 (6-22); Blood Urea Nitrogen 10 mg/dL (9-20); Calcium 9.1 mg/dL (8.4-10.2); Carbon Dioxide 35 mmol/L (22-32); Chloride 100 mmol/L (98-107); Estimated Glomerular Filt Rate > 60 mL/min (>60); Glucose 111 mg/dL (80-110); HEMOLYSIS < 15 (0-50); Potassium 3.9 mmol/L (3.4-5.1); Sodium 140 mmol/L (137-145)
--- NOTE | 2024-09-22 11:22 | CM.DPC ---
DCP COnt: Per MD, pt's labs have improved and making slow progress but still had complaints yesterday of bloating and some abdominal pain and will determine if pt stable for d/c today vs tomorrow. Per Fireworks Maker, pt tolerating his diet and uses Ensure at home as well and adequate intake for home plan. MARGO spoke to Julia ABREU and updated on possible d/c today vs tomorrow Thursday and they confirm they just need Resumption Orders and d/c summary at discharge. MARGO faxed H&P to [facility] to review and will fax d/c summary at discharge. GILDA Gutierrez
--- NOTE | 2024-09-22 15:01 | PM.PN.1 ---
Subjective Subjective Interval history: Summary: 63 y/o with PMH of HTN, smoking, COPD, GERD, GI bleed, anxiety, constipation, colon diverticulosis and pancreatitis, came to ER complaining on diffuse abdominal pain in lower quadrants, nausea and vomiting. He was unable to hold anything down at home. Last few days he was gradually having these symptoms worsening and was earlier seen in the ED. On that visit started on Augmenting after CT showed diverticulitis. He came back as his symptoms progressed even further. S: Continues to have LLQ abdominal pain and bloating, he is tolerating some diet. Marked improvement in leukocytosis, but all cell lines down likely due somewhat to fluids. Exam Vital Signs (past 8 hours): - 09/22/24 08:00 09/22/24 11:59 09/22/24 12:14 Temperature 97.1 F L 97.8 F Pulse Rate 88 85 83 Respiratory Rate 16 20 16 Blood Pressure 175/83 H 155/78 H Pulse Oximetry 96 96 95 Oxygen Delivery Method Nasal Cannula Oxygen Flow Rate 2 2 2 Fraction of Inspired Oxygen 28 Fraction of Inspired Oxygen 28 SaO2/FiO2 Ratio 342 Oxygen Delivery Method Nasal Cannula Oxygen Flow Rate 2 Narrative Exam Narrative: NAD, alert and oriented. Fluent speech. Anxious. Lungs are clear, normal rate and effort. Diminished BS. Heart is regular, no murmur gallop or rub. Abdomen is soft, distended, minimally tender diffusely. Extremities are free of edema. Objective Labs 09/22/24 10:04 09/22/24 10:04 Labs: Laboratory Results - last 24 hr 09/22/24 10:04 WBC 7.2 RBC 3.64 L Hgb 9.8 L Hct 30.7 L MCV 84.2 MCH 26.8 MCHC 31.9 RDW 17.5 H Plt Count 170 Neut % (Auto) 70.5 Lymph % (Auto) 21.0 L [place] % (Auto) 7.7 Eos % (Auto) 0.3 L Baso % (Auto) 0.5 Neut # (Auto) 5100 Lymph # (Auto) 1500 [place] # (Auto) 600 Eos # (Auto) 0 Baso # (Auto) 0 Sodium 140 Potassium 3.9 Chloride 100 Carbon Dioxide 35 H BUN 10 Creatinine 0.94 Estimated GFR > 60 BUN/Creatinine Ratio 10.6 Glucose 111 H Calcium 9.1 Magnesium 2.0 PFSH Medical History Lung nodule seen on imaging study History of tobacco abuse Fatigue Ventricular tachycardia (paroxysmal) Anemia Palpitations GERD with stricture HTN (hypertension) Insomnia (~2015) Hyperlipidemia (~2015) Anxiety (~2015) COPD (chronic obstructive pulmonary disease) (~2013) Asthma (Unknown) TIA (transient ischemic attack) (05/2014) Hematuria (~2014) Surgical History No pertinent past surgical history Family History Mother Age: 86 Hypertension Sister Age: 69 Cancer Social History household members: none Smoking Status: Current every day smoker Tobacco: How many years used: 47 quit status: considering quitting second hand exposure: No alcohol intake: former substance use type: does not use Assessment & Plan Assessment & Plan narrative: 1. Acute Sigmoid Diverticulitis, present on admission and active. - continue zosyn, stopped IV fluids. He is still distended and tender, but improving today. - switched from IV to PO opiates, to continue today - continue lactulose for now, reduce to prn if improvement in abdominal pain - h/h stable today, likely due to fluids, continue to follow with CBC 2. Chronic constipation, present on admission and active. - lactulose started as above 3. COPD, present on admission and active. - Pulmicort, albuterol, oxygen - w/o evidence of exacerbation 4. Chronic hypoxic respiratory failure, present on admission and active. - continue supplemental O2 for goal 88-96% while on supplemental therapy. 5. Anemia, present on admission and active. - apparently iron-deficient - on Fe at home, could be contributing to constipation 6. HLD, present on admission and active. - on statin at home PLAN: -advanced to regular diet -continue IV antibiotics, leukocytosis now resolved. -Continue Lactulose today. -Dulcolax Supp PRN. -PT/OT JAYMIE: Possible 1-2 more days, home with HH. DVT / GI prophylaxis - HSQ Time-Based Coding :: [TOTAL MINUTES] spent with patient and on the chart (including review of chart, obtaining history, exam, reviewing outside data, placing orders, documenting exam and treatment plan, and counseling patient) on [DATE].
[2024-09-22] MEDS: SIMETHICONE 80 MG TABLET PO (15:30)
[2024-09-22] MEDS: ATORVASTATIN 20 MG TABLET 10 MG PO (20:30)
[2024-09-22] MEDS: MONTELUKAST 10 MG TABLET PO (20:31)
[2024-09-22] MEDS: ACETAMINOPHEN 325 MG TABLET 650 MG PO (20:31)
[2024-09-22] MEDS: LORATADINE 10 MG TABLET PO (20:31)
[2024-09-23] VITALS (13 sets, daily range): BP systolic 138–167; BP diastolic 75–85; PULSE 79–101; RESP 17–22; TEMP 36.2–36.8; O2SAT 95–100
[2024-09-23] MEDS: PIPERACILLIN/TAZO 3.375 GM in SODIUM CHLORIDE 0.9% 100 ML IV (06:12)
[2024-09-23] MEDS: PANTOPRAZOLE DR 20 MG TABLET PO (06:12)
[2024-09-23 06:24] LABS: Add Manual Diff / Slide Review NO; Basophils Absolute Auto 0 /uL (0-100); Basophils Percent Auto 0.2 % (0-2); Eosinophils Absolute Auto 0 /uL (0-450); Eosinophils Percent Auto 0.3 % (2-4); Hematocrit 30.1 % (41-53); Hemoglobin 9.4 g/dL (13.5-17.5); Lymphocytes Absolute Auto 1600 /uL (1100-4500); Lymphocytes Percent Auto 22.5 % (25-40); Mean Corpuscular HGB Conc 31.3 % (30-36); Mean Corpuscular Hemoglobin 26.5 PG (26-34); Mean Corpuscular Volume 84.7 fL (80-100); Monocytes Absolute Auto 600 /uL (0-900); Monocytes Percent Auto 7.7 % (3-14); Neutrophils Absolute Auto 5000 /uL (1500-7000); Neutrophils Percent Auto 69.3 % (50-75); Platelet Count 169 X10^3/uL (150-400); Red Blood Cell Count 3.55 X10^6/uL (4.5-5.9); Red Cell Distribution Width 17.7 % (11.6-14.8); White Blood Cell Count 7.2 X10^3/uL (4.5-11.0)
[2024-09-23 06:35] LABS: BUN Creatinine Ratio 11.7 (6-22); Blood Urea Nitrogen 12 mg/dL (9-20); Chloride 100 mmol/L (98-107); Estimated Glomerular Filt Rate > 60 mL/min (>60); Glucose 91 mg/dL (80-110); HEMOLYSIS < 15 (0-50); Sodium 144 mmol/L (137-145)
[2024-09-23 06:42] LABS: Carbon Dioxide 37 mmol/L (22-32)
[2024-09-23] MEDS: ALBUTEROL 2.5 MG/3 ML NEB (ADULT) INH ×5 (07:35→23:03)
[2024-09-23] MEDS: BUDESONIDE 0.5 MG/2 ML NEB INH ×2 (07:35→20:18)
[2024-09-23] MEDS: predniSONE 20 MG TABLET 40 MG PO (08:42)
[2024-09-23] MEDS: clonazePAM 0.5 MG TABLET PO ×3 (08:42→20:43)
[2024-09-23] MEDS: LACTULOSE 20 GM/30 ML SOLUTION 30 GM PO ×3 (08:43→20:43)
[2024-09-23] MEDS: HEPARIN 5,000 UNIT/ML VIAL 5000 UNIT SUBCUT ×2 (08:43→20:46)
[2024-09-23] MEDS: MAG HYDROX/ALUM/SIMETH 30 ML UDC PO (08:47)
[2024-09-23] MEDS: SIMETHICONE 80 MG TABLET PO (08:47)
--- NOTE | 2024-09-23 10:27 | DIET.PN1 ---
Dietary Progress Note Assessment: Dietitian f/u. Pt reports tolerating Ensures well and ate 100% of breakfast (cream of rice and kyrgyz yogurt). Reports better tolerance when food is softer (cream of wheat, Ensure, yogurts, eggs) Reports turkey yesterday was harder on the stomach. Recc that his meats be soft and bite sized too with extra gravy and lunch order was adjusted. Ht: 175.26 cm Wt: 79.379 kg BMI: 25.8 UBW: - Last BM: 09/22/24 (09/22/24 19:30) MNA: 9 Matthew Score: 19 Diet: 09/21/24 Breakfast General (Regular) Diet Diet Modifications: Food Texture: Level 7 - Regular Liquid Consistency: Level 0 - Thin Nutrition Percent Meal Consumed 50% 09/21/24 18:00 Labs: RBC 3.55 X10^6/uL (4.5-5.9) L 09/23/24 05:50 Hgb 9.4 g/dL (13.5-17.5) L 09/23/24 05:50 Hct 30.1 % (41-53) L 09/23/24 05:50 Creatinine 1.03 mg/dL (0.66-1.25) 09/23/24 05:50 Electronically Signed by: Alyssa Srinivasan 09/23/24 10:27 Clinical Dietitian [address] [address]
--- NOTE | 2024-09-23 11:30 | PT.IIE ---
Current Diagnoses Iron deficiency anemia secondary to blood loss (chronic) (09/19/24) Mixed hyperlipidemia (09/19/24) Chronic obstructive pulmonary disease, unspecified (09/19/24) Chronic respiratory failure with hypoxia (09/19/24) Gastro-esophageal reflux disease with esophagitis, without bleeding (09/19/24) Diverticulitis of large intestine without perforation or abscess without bleeding (09/19/24) Constipation, unspecified (09/19/24) Surgical History (Last Reviewed 09/19/24 @ 07:47 by Chau Hogan MD) No pertinent past surgical history Medical History (Last Reviewed 09/19/24 @ 07:47 by Chau Hogan MD) Anemia Anxiety (~2015) Asthma (Unknown) COPD (chronic obstructive pulmonary disease) (~2013) Fatigue GERD with stricture Hematuria (~2014) History of tobacco abuse HTN (hypertension) Hyperlipidemia (~2015) Insomnia (~2015) Lung nodule seen on imaging study Palpitations TIA (transient ischemic attack) (05/2014) Ventricular tachycardia (paroxysmal) Physical Therapy Inpatient Evaluation/Re-Eval M1 PT/OT-IP Prior Functional Status Start: 09/23/24 13:00 Freq: NEEDED Status: Active Protocol: Document 09/23/24 11:30 AB (Rec: 09/23/24 13:11 AB [id number]) Medical Review Prior Functional Status Medical History Reviewed Yes Communication able to make needs known Mobility and Gait pt stated that he is modified independent with transfers reclincer<>power w/c. pt is non ambulatory. pt sleeps on his recliner and stand pivots transfers without AD but reaches over on transfer surface Social History Household Members none Living Arrangements House Number of Floors (Floors) One Floor Number of Stairs To Enter/Railing? no steps to enter Home Environment Standard Height Toilet,Walk in Shower Home Equipment Power Wheelchair/Scooter, Bedside Commode,Shower Seat without Backrest,Hand Held Shower,Grab Bars Near Toilet, Grab Bars In Shower Additional Social History Comment has caregivers MWTH for ~ 5 hours to assist pt pt has a transport w/c M2 PT-IP Current Condition Start: 09/23/24 13:00 Freq: NEEDED Status: Active Protocol: Document 09/23/24 11:30 AB (Rec: 09/23/24 13:11 AB [id number]) Physical Therapy Current Condition Current Condition Evaluation Date 09/23/24 Treatment Diagnosis diverticulitis; difficulty in walking Onset Date 09/19/24 M3 PT-IP Subjective Start: 09/23/24 13:00 Freq: NEEDED Status: Active Protocol: Document 09/23/24 11:30 AB (Rec: 09/23/24 13:11 [id number]) Subjective Physical Therapy Visit Type Type Initial Evaluation Visit Start Time 11:30 Visit Stop Time 11:50 Number of RECEIVING INSPECTOR Visits 0 Physical Therapy Visit Comments Patient Comments agreeable to do PT; stated that he is not going home today and will appeal his d/c Therapy Pain Assessment Pain When Pain Assessed During Mobility Pain Present Pain Present Pain Reported Location abdomen Scale Used pain scale not stated Pain Management Techniques Distraction,Modification of Treatment,Re-positioning M4 PT-IP Mobility and Gait Start: 09/23/24 13:00 Freq: NEEDED Status: Active Protocol: Document 09/23/24 11:30 AB (Rec: 09/23/24 13:11 [id number]) PT-Bed Mobility Assessment Supine to Sit Supine to Sit Standby Assistance,Head of Bed Elevated,Bedrails Sit to Supine Sit to Supine Standby Assistance,Bedrails Scooting Scooting to Edge of Bed Standby Assistance PT-Transfer Assessment Sit to and From Stand Sit to and from Stand Standby Assistance,1 Person Assistance,Use of Upper Extremities Equipment Transfer Assistive Device Gait Belt Orthotic/Prosthetic Devices or Brace: No Transfers Transfer Destination Bed,Chair Transfer Technique Stand Step Pivot Transfer Ability Level of Assist Standby Assistance,Use of Upper Extremities Comments Mobility Comments pt in bed and agreeable to do PT. obtained PLOF and home set up. O2 sat: 94% BP: 150/78. VT: 88 pt completed supine to sit with HOB elevated and use of bed rail. able to sit on EOB SBA. O2 sat: 92% with o2 on. VT: 96-101. completed sit to stand SBA and able to pivot transfer SBA bed<>chair. sit to supine SBA. positioned pt in bed. call light and table placed within reach. informed pt regarding PT and no further skilled PT needs at this time. pt agreed. PT-Balance Assessment Sitting Balance and Reactions Static Sitting Balance Ability Normal Dynamic Sitting Balance Ability Good Standing Balance and Reactions Static Standing Balance Ability Fair Dynamic Standing Balance Ability Fair Device Used without AD M5 PT-IP Objective Assessments Start: 09/23/24 13:00 Freq: NEEDED Status: Active Protocol: Document 09/23/24 11:30 AB (Rec: 09/23/24 13:11 AB [id number]) Orientation Orientation/Cognition Level of Alertness Alert Orientation Name,Place,Situation Language Function Ability No Deficits Noted Safety Awareness Understands Safety Issues Memory Description No Deficits Noted Gross Range of Motion Lower Extremity ROM Assessment Within Functional Limits Strength Lower Extremity Strength Assessment Bilaterally Impaired Hip 3+/5 Knee 4-/5 Muscle Tone Muscle Tone WNL Yes M6 PT-IP Treatment Start: 09/23/24 13:00 Freq: NEEDED Status: Active Protocol: Document 09/23/24 11:30 AB (Rec: 09/23/24 13:11 AB [id number]) Physical Therapy Treatment Education Education Provided Safety M7 PT-IP Assessment and Plan Start: 09/23/24 13:00 Freq: NEEDED Status: Active Protocol: Document 09/23/24 11:30 AB (Rec: 09/23/24 13:11 AB [id number]) PT Summary Assessment and Plan Potential Rehabilitation Potential Fair Status of Condition at Evaluation Stable Summary Impairments Pain,Strength,Balance, Sensation,Cognition,Bed Mobility,Transfers,Gait, Activity Tolerance Assessment Summary pt is a 63 y/o M who is admitted for diverticulitis and COPD. pt requiring SBA for stand pivot transfers bed<> chair. SBA provided for safety . pt is non-ambulatory for >2 years. pt is at prior level of function and no further skilled PT needs at this time. Frequency of Treatment Frequency Of Treatment Discharge Treatment Plan Physical Therapy Treatment Plan Discharge Planning Recommendations To Nursing Amount of Assist Needed 1 Person Assist Discharge Recommendations PT Discharge Recommendations Home with Assistance Transportation Needs at Discharge Private Vehicle,Wheelchair/ Cabulance - PT assist SBA
--- NOTE | 2024-09-23 12:44 | PM.DS.1 ---
History of Present Illness History of Present Illness Date Patient Seen: 09/23/24 Chief complaint: Nausea, vomiting, abdominal pain Narrative: From night doctor: 63 y/o with PMH of HTN, smoking, COPD, GERD, GI bleed, anxiety, constipation, colon diverticulosis and pancreatitis, came to ER complaining on diffuse abdominal pain in lower quadrants, nausea and vomiting. He was unable to hold anything down at home. Last few days he was gradually having these symptoms worsening and was earlier seen in the ED. On that visit started on Augmenting after CT showed diverticulitis. He came back as his symptoms progressed even further. S: He was doing well for about 2 weeks after his discharge. He then developed some recurrent lower abdominal pain. He was had some constipation, no rectal bleeding. He denies any diarrhea. He was had a normal appetite. CT imaging indicated diverticulitis. He was given enemas and a suppository yesterday. Discharge Providers Provider Date of admission: 09/19/24 02:37 Discharge Date: 09/23/24 Primary care physician: Saqib Oliva DO Consults: 09/19/24 04:16 Consult to Dietitian, Adult Routine Comment: Reason For Exam: low appetite 09/20/24 10:55 Consult to Home Health Routine Comment: PT/OT/RN/Bath Aide Reason For Exam: Resume Home Health Orders 09/22/24 15:03 Consult to Physical Therapy Evaluate & Treat Comment: Physician Instructions: Evaluate and Treat 09/23/24 11:50 Consult to Occupational Therapy Evaluate & Treat Comment: Physician Instructions: Evaluate and treat Discharge provider: Manuel Martinez DO Summary Hospital Course Discharge Diagnosis: 1. Acute Sigmoid Diverticulitis, present on admission and active. 2. Chronic constipation, present on admission and active. 3. COPD, present on admission and active. 4. Chronic hypoxic respiratory failure, present on admission and active. 5. Anemia, present on admission and active. 6. HLD, present on admission and active. Hospital Course: This is a 63-year-old male with a past medical history of COPD, with chronic hypoxemic respiratory failure, chronic anemia, hyperlipidemia who was admitted to the hospital with sigmoid diverticulitis. His initial leukocytosis, along with his presenting abdominal pain and decreased appetite improved markedly with IV antibiotics. His diet was slowly advanced. He also suffers from chronic constipation which was improved with initiation of lactulose. His abdomen is now nondistended and nontender. On the day of discharge he was able to tolerate breakfast without any issues. He does have chronic anxiety, along with chronic limited mobility. He was seen by Physical therapy who stated the patient was at his baseline. He will complete a total 10 day course for diverticulitis at home with ciprofloxacin and Flagyl. He did have a slight decline in H and H, but more recently he has been at his chronic baseline with a hemoglobin in the mid 9s and he was slightly dehydrated likely on presentation. Had no evidence of active GI bleeding including dark stools, hematochezia, or hematemesis. He is on his baseline home oxygen at the time of discharge as well, and did not require additional supplemental oxygen while here in the hospital and therefore was without evidence of acute respiratory failure. Time Spent with Patient Time spent: Greater than 30 minutes Exam Vital Signs (past 8 hours): - 09/23/24 06:24 09/23/24 07:00 09/23/24 07:35 Temperature 97.6 F Pulse Rate 83 79 Respiratory Rate 17 20 Blood Pressure 161/79 H Pulse Oximetry 97 100 Oxygen Delivery Method Nasal Cannula Nasal Cannula Oxygen Flow Rate 0 2 09/23/24 07:44 09/23/24 08:00 09/23/24 12:28 Temperature 97.2 F L Pulse Rate 88 90 86 Respiratory Rate 22 20 22 Blood Pressure 159/80 H Pulse Oximetry 98 97 97 Oxygen Delivery Method Nasal Cannula Nasal Cannula Oxygen Flow Rate 2 2 2 Fraction of Inspired Oxygen 28 SaO2/FiO2 Ratio 350 Oxygen Delivery Method Nasal Cannula Oxygen Flow Rate 2 Narrative Exam Narrative: NAD, alert and oriented. Fluent speech. Anxious. Lungs are clear, normal rate and effort. Diminished bilateral lung bases. Heart is regular, no murmur gallop or rub. Abdomen is soft, nt, nd Extremities are free of edema. Objective Labs 09/23/24 05:50 09/23/24 05:50 Labs: Laboratory Results - last 24 hr 09/23/24 05:50 WBC 7.2 RBC 3.55 L Hgb 9.4 L Hct 30.1 L MCV 84.7 MCH 26.5 MCHC 31.3 RDW 17.7 H Plt Count 169 Neut % (Auto) 69.3 Lymph % (Auto) 22.5 L [place] % (Auto) 7.7 Eos % (Auto) 0.3 L Baso % (Auto) 0.2 Neut # (Auto) 5000 Lymph # (Auto) 1600 [place] # (Auto) 600 Eos # (Auto) 0 Baso # (Auto) 0 Sodium 144 Potassium 4.0 Chloride 100 Carbon Dioxide 37 H BUN 12 Creatinine 1.03 Estimated GFR > 60 BUN/Creatinine Ratio 11.7 Glucose 91 Calcium 9.0 Magnesium 2.0 PFSH Medical History Lung nodule seen on imaging study History of tobacco abuse Fatigue Ventricular tachycardia (paroxysmal) Anemia Palpitations GERD with stricture HTN (hypertension) Insomnia (~2015) Hyperlipidemia (~2015) Anxiety (~2015) COPD (chronic obstructive pulmonary disease) (~2013) Asthma (Unknown) TIA (transient ischemic attack) (05/2014) Hematuria (~2014) Surgical History No pertinent past surgical history Family History Mother Age: 86 Hypertension Sister Age: 69 Cancer Social History household members: none Smoking Status: Current every day smoker Tobacco: How many years used: 47 quit status: considering quitting second hand exposure: No alcohol intake: former substance use type: does not use Discharge Plan Discharge Plan Patient Disposition: Home Provider Discharge Comment: You were admitted to the hospital with diverticulitis. Improved with antibiotics and you are tolerating a diet and stable for discharge home. Discharge orders & Medications Prescriptions: New ciprofloxacin HCl 500 mg tablet 500 mg PO 0700,2100 6 Days Qty: 12 0RF hydromorphone 2 mg Tablet 2 mg PO Q4HR PRN (Reason: Pain, Severe (7-10)) 7 Days Qty: 20 0RF lactulose 10 gram/15 mL Solution 30 g PO TID Qty: 946 0RF metronidazole 500 mg Tablet 500 mg PO TID 6 Days Qty: 18 0RF Continued benzonatate 100 mg capsule 100 mg PO BID-TID PRN (Reason: Cough) Qty: 270 0RF (DME) Disabled Parking Permint See Rx Instructions .ROUTE .MEDSUPPLY Qty: 1 0RF Rx Instructions: I find this patient to be medically disabled and qualified for Disabled Parking as indicated and signed on the Accompanying Disabled Parking Application for individuals. Dulera 200-5 mcg/actuation HFA aerosol inhaler 2 puff PO BID Qty: 13 5RF cetirizine 10 mg tablet 10 mg PO BEDTIME clonazepam 0.5 mg tablet 0.5 mg PO TID Qty: 90 3RF Rx Instructions: 08/25/24:Mak states he is only taking the Clonazepam twice daily on a regular basis but needs the option to take it TID if needed when anxiety is especially high. guaifenesin 100 mg/5 mL liquid 200 mg PO Q4H PRN (Reason: cough) prednisone 10 mg tablet 40 mg PO DAILY Qty: 30 0RF nitroglycerin 0.3 mg tablet, sublingual 0.3 mg sublingual Q5-15M PRN (Reason: chest pain) Qty: 20 0RF Rx Instructions: do not exceed 3 doses per episode ondansetron 4 mg tablet,disintegrating 4 mg PO Q6-8H PRN (Reason: nausea and vomiting) simvastatin 20 mg tablet 20 mg PO QPM Qty: 90 3RF albuterol sulfate 2.5 mg /3 mL (0.083 %) solution for nebulization 2.5 mg inhalation QID PRN (Reason: shortness of breath or wheezing) Qty: 180 11RF albuterol sulfate [Ventolin HFA] 90 mcg/actuation HFA aerosol inhaler 1 - 2 puff PO Q4H PRN (Reason: for wheezing) Qty: 54 11RF ipratropium bromide 0.02 % solution 2.5 ml inhalation QID PRN (Reason: shortness of breath or wheezing) Qty: 150 11RF ascorbate calcium (vitamin C) 500 mg tablet 500 mg PO DAILY ferrous gluconate 324 mg (38 mg iron) tablet 324 mg PO DAILY Qty: 90 1RF mecobalamin (vitamin B12) 1,000 mcg tablet,chewable 1,000 mcg PO DAILY alum-mag hydroxide-simeth 400-400-40 mg/5 mL Suspension See Rx Instructions .ROUTE .COMPLEX MDD 120 ml PRN (Reason: heartburn/gas) Rx Instructions: [employer] Brand Mylanta Gas -- 400 mg Aluminum Hydroxide, 400mg Magnesium Hydroxide, 40mg Simethicone/10 ml (Suspension) 10 to 20 ml PRN with/after meals & bedtime as needed for heartburn/gas relief by Mouth Max dose 120 ml total/24 hours multivit with min-folic acid 0.4 mg Tablet 1 tab PO DAILY nystatin 100,000 unit/mL suspension 5 ml PO QID PRN (Reason: thrush) montelukast 10 mg tablet 10 mg PO BEDTIME simethicone [Gas Relief 80 (simethicone)] 80 mg Tablet,Chewable 80 mg PO QID PRN (Reason: Flatulence) Qty: 60 0RF lactulose [Kristalose] 10 gram packet 20 g PO BID PRN (Reason: constipation) Qty: 15 0RF Patient Comments: HAS NOT TAKEN 1st DOSE Discontinued amoxicillin-pot clavulanate 875-125 mg tablet 1 tab PO BID Qty: 20 0RF Patient Comments: HAS NOT TAKEN YET- JUST Rx'D T-1 Follow up/Referrals: Saqib Oliva, [Primary Care Provider] - Diet/Activity/Treatments Diet: Diet as Tolerated and Regular Activity: As tolerated no restrictions Oxygen: As needed to maintain O2 89-96% Visit Report/Discharge Packet Stand Alone Forms: Patient Portal/API, Stroke Signs & Symptoms Discharge Data Primary Care Provider: Saqib Oliva
--- NOTE | 2024-09-23 14:40 | OT.IP.EVAL ---
Current Diagnoses Iron deficiency anemia secondary to blood loss (chronic) (09/19/24) Mixed hyperlipidemia (09/19/24) Chronic obstructive pulmonary disease, unspecified (09/19/24) Chronic respiratory failure with hypoxia (09/19/24) Gastro-esophageal reflux disease with esophagitis, without bleeding (09/19/24) Diverticulitis of large intestine without perforation or abscess without bleeding (09/19/24) Constipation, unspecified (09/19/24) Past Medical History (Last Reviewed 09/19/24 @ 07:47 by Chau Hogan MD) Anemia Anxiety (~2015) Asthma (Unknown) COPD (chronic obstructive pulmonary disease) (~2013) Fatigue GERD with stricture Hematuria (~2014) History of tobacco abuse HTN (hypertension) Hyperlipidemia (~2015) Insomnia (~2015) Lung nodule seen on imaging study Palpitations TIA (transient ischemic attack) (05/2014) Ventricular tachycardia (paroxysmal) Surgical History (Last Reviewed 09/19/24 @ 07:47 by Chau Hogan MD) No pertinent past surgical history Occupational Therapy Inpatient Evaluation/Re-Eval M1 PT/OT-IP Prior Functional Status Start: 09/23/24 13:00 Freq: NEEDED Status: Active Protocol: Document 09/23/24 15:40 [facility] (Rec: 09/23/24 15:57 [facility] [id number]) Medical Review Prior Functional Status Medical History Reviewed Yes Communication able to make needs known Mobility and Gait pt stated that he is modified independent with transfers reclincer<>power w/c. pt is non ambulatory. pt sleeps on his recliner and stand pivots transfers without AD but reaches over on transfer surface Activities of Daily Living and IADL's Pt states able to do ADL's and gets asisst for sponge baths, and shopping needs. Pt states lately got worn out due to having to use the bathroom several times during the day. Pt has caregivers that assist M,W,Th 5 hours. Prior Functional Level (Other details) Pt mainly just transfers from his recliner to power chair to toilet. Social History Household Members none Living Arrangements House Number of Floors (Floors) One Floor Number of Stairs To Enter/Railing? no steps to enter Home Environment Standard Height Toilet,Walk in Shower Home Equipment Power Wheelchair/Scooter, Bedside Commode,Shower Seat without Backrest,Hand Held Shower,Grab Bars Near Toilet, Grab Bars In Shower Additional Social History Comment has caregivers [facility] for ~ 5 hours to assist pt pt has a transport w/c M2 OT-IP Current Condition Start: 09/23/24 15:39 Freq: Status: Active Protocol: Document 09/23/24 15:40 [facility] (Rec: 09/23/24 15:57 [facility] [id number]) Occupational Therapy Current Condition Current Condition Evaluation Date 09/23/24 Treatment Diagnosis Acute Sigmoid deiverticulitis Diagnosis Onset Date 09/19/24 M3 OT- IP Subjective and Pain Start: 09/23/24 15:39 Freq: Status: Active Protocol: Document 09/23/24 15:40 [facility] (Rec: 09/23/24 15:57 [facility] [id number]) OT- Subjective Occupational Therapy Visit Type Type Initial Evaluation Visit Start Time 13:35 Visit Stop Time 14:40 Notes Split time from [id number] and [id number] Occupational Therapy Visit Comments Patient Comments Pt agreed to get up to the recliner to simulate transfer to his powerchair. Patient/Caregiver Goals TO go home when medically stable. OT Pain Assessment Pain When Pain Assessed At Rest Pain Present Pain Present Pain Reported Location abdomen Pain Behaviors Facial Grimacing,Holding Area M4 OT- IP ADL's Start: 09/23/24 15:39 Freq: Status: Active Protocol: Document 09/23/24 15:40 [facility] (Rec: 09/23/24 15:57 [facility] [id number]) OT MBI-Cxzq-Byqrrgm Comments OT Self-Feeding Comments Not at meal time. OT ADL-Grooming Comments OT Grooming Comments Pt states did prior. OT ADL-Oral Care Comments Oral Care Comments Pt states did earlier. OT ADL-Dressing General Eval Lower Body Dressing Ability Standby Assistance Comments OT Dressing Comments Pt able to push cross his leg to initiate taking off his sock. Pt states his abdomin pain prevent him for doing his LB dressing at times. Spoke of use of rug sample beveler and pt able to practice use of sock aid. OT ADL-Toileting General Evaluation Toileting Ability Standby Assistance Comments OT Toileting Comments Pt able to scoot to the edge of the bed and used the urinal . OT ADL-Bathing Comments OT Bathing Comments Pt will continue to benefit from assist. M5 OT- IP IADL's Start: 09/23/24 15:39 Freq: Status: Active Protocol: Document 09/23/24 15:40 [facility] (Rec: 09/23/24 15:57 [facility] [id number]) OT-Instrumental Activities of Daily Living Home Safety Awareness Awareness of Need for Assistance at Home Good Awareness Ability to Problem Solve Emergency Able to Problem Solve Situations Medication Management Medication Management No Deficits Identified Money Management Money Management No Deficits Identified Meal Preparation Meal Preparation Caregiver Provides Assist Licensing Officer Licensing Officer Caregiver Provides Assist M6 OT- IP Functional Cognition Start: 09/23/24 15:39 Freq: Status: Active Protocol: Document 09/23/24 15:40 [facility] (Rec: 09/23/24 15:57 [facility] [id number]) Cognitive Factors Limiting Selfcare Function Cognitive Ability Level of Alertness Alert Patient Orientation Name,Age,Birthday,Month,Date, Year,Day of Week,Place, Situation Attention Span Ability Capable of Focused Attention, Capable of Sustained Attention Ability to Follow Commands Able to Follow Multi-Step Commands Cognitive Comments Cognitive Assessment Comments Pt intact. Pt states gets a bit anxious at times, but able to participate well during OT eval. OT- Vision and Hearing OT- Hearing Assessment OT- Hearing Assessment WFL OT- Vision Assessment Visual Acuity Glasses All The Time Visual Attentiveness WFL Occular Pursuits WFL M7 OT- IP Mobility and Balance Start: 09/23/24 15:39 Freq: Status: Active Protocol: Document 09/23/24 15:40 [facility] (Rec: 09/23/24 15:57 [facility] [id number]) OT- Bed Mobility Assessment Supine to Sit Supine to Sit Assist Increased time,Head of Bed Elevated Sit to Supine Sit to Supine Assist Increased time,Head of Bed Elevated OT-Transfer Assessment Transfers Transfer Ability Distant SBA,Use of Upper Extremities Technique Transfer Destination Bed,Chair Devices Transfer Assistive Devices Gait Belt Comments Mobility Comments Pt able to [facility] of him just like he does at home with increased time and good safety. OT- Balance Assessment Sitting Balance and Reactions Static Sitting Balance Ability Normal Dynamic Sitting Balance Ability Good Standing Balance and Reactions Static Standing Balance Ability Fair Dynamic Standing Balance Ability Fair M8 OT- IP Objective Assessments Start: 09/23/24 15:39 Freq: Status: Active Protocol: Document 09/23/24 15:40 [facility] (Rec: 09/23/24 15:57 [facility] [id number]) OT Gross Range of Motion Upper Extremity Range of Motion Assessment Within Functional Limits OT Strength Comments Strength Comments Grossly WFl for needs. Pt states does BUE exercises at home. M9 OT- IP Assessment and Plan Start: 09/23/24 15:39 Freq: Status: Active Protocol: Document 09/23/24 15:40 [facility] (Rec: 09/23/24 15:57 [facility] [id number]) OT Summary Assessment and Plan Potential Rehabilitation Potential Good Analytic Complexity at Evaluation Moderate Summary OT Impairments Pain,Strength,Balance, Functional Mobility,Toileting, Bathing,Toilet Transfers, Shower Transfers,Activity Tolerance Progress Towards Goals Progressing Toward Goals Assessment Summary Pt main barriers are pain, decreased activity tolerance, and gets tired easily. Able to talk to pt of energy conservation needs, toilet paper ad, bidet, and getting sock aid to help with his ADL needs. Pt feeling very weak but better overall and looking to go home with assist and home health soon. Goals Grooming Goal Independent Dressing Goal Independent Toileting Goal Independent Bathing Goal Minimal Assistance Toilet Transfer Goal Independent Shower Transfer Goal Contact Guard Assistance Days to Meet Goals 5 Frequency of Treatment Other frequency 5x/week Discharge Recommendations OT Discharge Recommendations Home with Assistance,Home Health Home Equipment Needs sock aid, bidet/toilet paper aid Transportation Needs at Discharge Private Vehicle
[2024-09-23] MEDS: metroNIDAZOLE 500 MG TABLET PO ×2 (15:45→20:42)
--- NOTE | 2024-09-23 16:04 | CM.DPNOTE ---
DCP Continued: Reviewed EMR and team rounds for pt?s medical status. Per hospitalist, pt can be medically discharged today. Discharge orders were placed. PT/OT evaluations added today, recommendations for home with home health/caregivers. DCP spoke with pt mother upon request, pt mother stated concerns for pt dc today due to decline in independent transferring from bed to motorized wheelchair. Pt sister and niece entered family waiting room, also expressed concerns for pt dc. Collectively, they feel pt is appropriate at a [facility] or [facility]. Even with caregivers 3x/week and home health, they believe pt needs 24/7 care and they are not able to provide it at this time. Pt family believes pt does not want placement outside of the home because he wants to continue smoking cigarettes. DCP entered room, introduced self and role. Pt found in bed, alert and oriented, able to communicate needs. Pt stated he does not feel it is safe to dc and would like just one more night, confirms that he would like to appeal his discharge. Pt stated that he recognizes a need for more support, especially early in the morning and late at night; identified that he does not have available help at those times and cannot call on family for help. To add, pt vehemetly declines any referral to SNF or alternative placement at this time. Pt calls JENNIFER partnership development manager, October (ph#[phone]) and requests for this ITALIAN TUTOR to speak with partnership development manager. ITALIAN TUTOR reviews above with JENNIFER PEACOCK and agrees that pt needs an updated functional assessment. JENNIFER PEACOCK states the soonest she can see pt for a functional assessment is on Thursday, 09/27 at 1:00pm. Pt notes this in his cell phone calendar. DCP and pt continue plan of care conversation. Pt still refusing referral to SNF or [facility] at this time, understands likely plans of dc tomorrow, 09/24 and will follow up with JENNIFER PEACOCK, caregivers and Julia ABREU. Pt is decisional. Julia ABREU will need resumption orders and dc summary faxed upon discharge. Plan: Anticipating dc home with family, follow up with JENNIFER caregivers ([facility]) and Julia ABREU. CM Team will continue to follow for coordination of discharge plans. LEON BirdSW
[2024-09-23] MEDS: ACETAMINOPHEN 325 MG TABLET 650 MG PO (18:47)
[2024-09-23] MEDS: ATORVASTATIN 20 MG TABLET 10 MG PO (20:42)
[2024-09-23] MEDS: MONTELUKAST 10 MG TABLET PO (20:43)
[2024-09-23] MEDS: LORATADINE 10 MG TABLET PO (20:43)
[2024-09-23] MEDS: CIPROFLOXACIN 250 MG TABLET 500 MG PO (21:01)
[2024-09-24] VITALS (9 sets, daily range): BP systolic 128–153; BP diastolic 70–81; PULSE 70–101; RESP 15–24; TEMP 36.2–36.6; O2SAT 95–99
[2024-09-24] MEDS: PANTOPRAZOLE DR 20 MG TABLET PO (06:19)
[2024-09-24] MEDS: CIPROFLOXACIN 250 MG TABLET 500 MG PO ×2 (06:19→21:19)
[2024-09-24] MEDS: BUDESONIDE 0.5 MG/2 ML NEB INH ×2 (07:45→19:11)
[2024-09-24] MEDS: ALBUTEROL 2.5 MG/3 ML NEB (ADULT) INH ×5 (07:45→23:20)
[2024-09-24] MEDS: metroNIDAZOLE 500 MG TABLET PO ×3 (08:42→21:20)
[2024-09-24] MEDS: HEPARIN 5,000 UNIT/ML VIAL 5000 UNIT SUBCUT ×2 (08:43→21:20)
[2024-09-24] MEDS: clonazePAM 0.5 MG TABLET PO ×3 (08:43→21:19)
[2024-09-24] MEDS: MAG HYDROX/ALUM/SIMETH 30 ML UDC PO ×2 (08:43→21:19)
[2024-09-24] MEDS: predniSONE 20 MG TABLET 10 MG PO (09:33)
[2024-09-24] MEDS: SIMETHICONE 80 MG TABLET PO (10:33)
[2024-09-24] MEDS: ACETAMINOPHEN 325 MG TABLET 650 MG PO ×2 (10:34→16:49)
--- NOTE | 2024-09-24 16:03 | PM.PN.1 ---
Subjective Subjective Interval history: Patient discharged on 09/23. He appealed yesterday and lost appeal. He states he will leave by tomorrow. No overnight events, no change since discharge. Remains on PO antibiotics. Exam Vital Signs (past 8 hours): - 09/24/24 08:18 09/24/24 12:00 09/24/24 15:30 Temperature 97.3 F L 97.7 F Pulse Rate 80 98 H 101 H Respiratory Rate 16 18 22 Blood Pressure 153/78 H 128/79 Pulse Oximetry 96 99 95 Oxygen Delivery Method Nasal Cannula Oxygen Flow Rate 2 2 2 Fraction of Inspired Oxygen 28 SaO2/FiO2 Ratio 350 Oxygen Delivery Method Nasal Cannula Oxygen Flow Rate 2 Narrative Exam Narrative: gen: NAD Objective Labs 09/23/24 05:50 09/23/24 05:50 PFSH Medical History Lung nodule seen on imaging study History of tobacco abuse Fatigue Ventricular tachycardia (paroxysmal) Anemia Palpitations GERD with stricture HTN (hypertension) Insomnia (~2015) Hyperlipidemia (~2015) Anxiety (~2015) COPD (chronic obstructive pulmonary disease) (~2013) Asthma (Unknown) TIA (transient ischemic attack) (05/2014) Hematuria (~2014) Surgical History No pertinent past surgical history Family History Mother Age: 86 Hypertension Sister Age: 69 Cancer Social History household members: none Smoking Status: Current every day smoker Tobacco: How many years used: 47 quit status: considering quitting second hand exposure: No alcohol intake: former substance use type: does not use Assessment & Plan Assessment & Plan narrative: 1. Acute Sigmoid Diverticulitis, present on admission and active. 2. Chronic constipation, present on admission and active. 3. COPD, present on admission and active. 4. Chronic hypoxic respiratory failure, present on admission and active. 5. Anemia, present on admission and active. 6. HLD, present on admission and active. PLAN: -continue PO antibiotics while here in the hospital. -continue home medications -no need for further blood work. JAYMIE: Discharged on 09/23. Patient appealed and lost appeal. Patient plans to go home tomorrow morning. DVT / GI prophylaxis - HSQ Time-Based Coding :: [TOTAL MINUTES] spent with patient and on the chart (including review of chart, obtaining history, exam, reviewing outside data, placing orders, documenting exam and treatment plan, and counseling patient) on [DATE].
--- NOTE | 2024-09-24 16:19 | CM.DPNOTE ---
Addendum entered by GILDA Aguilar 09/24/24 16:43: Amend, previous note should say [facility] agrees with decision to discharge. pt needs to leave [facility] by 12pm on 09/25/24 or be financially responsible for after that deadline. SL Original Note: DCP note POND SAWYER reviewed EMR Per [facility] review, [facility] agrees with decision to appeal. pt needs to leave [facility] by 12pm on 09/25/24 or be financially responsible for after that deadline. Appeal paperwork placed in scanning folder to be scanned into chart. POND SAWYER met with pt in room. Provided physical copy of appeal paperwork. reviewed it with pt and answered questions to help pt understand. pt reports verbal understanding. pt will leave by 12pm Monday 09/25. plans to have family take him home. reviewed plans for new [facility] Assessment on 09/27, agrees to home with Julia ABREU. pt resistant to idea that he may not be able to get enough JENNIFER care to remain at home and it might time to consider [facility]. Denies other CM questions. POND SAWYER updated RN/provider. NOTE FOR FUTURE POTENTIAL ADMISSIONS: per chart review, pt discharge has followed a pattern previous three admissions. pt is admitted at baseline mobility of self transfers, does not work with therapies due to being at baseline mobility, remains in bed for a few days, reports getting weaker and can't self transfer, and then therapies are ordered. Pt then takes a few days to return to his baseline mobility of self transfer. consider if appropriate having pt working with PT/OT upon admission and work with therapy team throughout stay in order to assist in reducing delay of dc. PLAN; dc tomorrow with mom to transport home and [facility]/Julia ABREU to follow. needs to dc by 12pm. CM team will continue to follow closely. if does not leave, will provide HIN letter. GILDA Aguilar
[2024-09-24] MEDS: ATORVASTATIN 20 MG TABLET 10 MG PO (21:19)
[2024-09-24] MEDS: MONTELUKAST 10 MG TABLET PO (21:19)
[2024-09-24] MEDS: LORATADINE 10 MG TABLET PO (21:19)
[2024-09-25] VITALS: BP 147/75; PULSE 92; RESP 22; TEMP 36.4; O2SAT 93
[2024-09-25] MEDS: ALBUTEROL 2.5 MG/3 ML NEB (ADULT) INH ×2 (03:28→07:33)
[2024-09-25] MEDS: IPRATROPIUM 0.5 MG/2.5 ML NEB INH (03:28)
[2024-09-25 04:00] VITALS: BP 136/73; PULSE 81; RESP 22; TEMP 36.2; O2SAT 98
[2024-09-25] MEDS: ACETAMINOPHEN 325 MG TABLET 650 MG PO (06:16)
[2024-09-25] MEDS: PANTOPRAZOLE DR 20 MG TABLET PO (06:16)
[2024-09-25] MEDS: CIPROFLOXACIN 250 MG TABLET 500 MG PO (07:00)
[2024-09-25] MEDS: BUDESONIDE 0.5 MG/2 ML NEB INH (07:32)
[2024-09-25 07:38] VITALS: PULSE 95; RESP 20; O2SAT 94
[2024-09-25 07:39] VITALS: RESP 20
[2024-09-25 08:00] VITALS: BP 157/75; PULSE 85; RESP 18; TEMP 36.3; O2SAT 99
--- NOTE | 2024-09-25 09:03 | PM.DS.1 ---
History of Present Illness History of Present Illness Date Patient Seen: 09/25/24 Chief complaint: Nausea, vomiting, abdominal pain Narrative: From night doctor: 63 y/o with PMH of HTN, smoking, COPD, GERD, GI bleed, anxiety, constipation, colon diverticulosis and pancreatitis, came to ER complaining on diffuse abdominal pain in lower quadrants, nausea and vomiting. He was unable to hold anything down at home. Last few days he was gradually having these symptoms worsening and was earlier seen in the ED. On that visit started on Augmenting after CT showed diverticulitis. He came back as his symptoms progressed even further. S: He was doing well for about 2 weeks after his discharge. He then developed some recurrent lower abdominal pain. He was had some constipation, no rectal bleeding. He denies any diarrhea. He was had a normal appetite. CT imaging indicated diverticulitis. He was given enemas and a suppository yesterday. Discharge Providers Provider Date of admission: 09/19/24 02:37 Discharge Date: 09/25/24 Primary care physician: Saqib Oliva DO Consults: 09/19/24 04:16 Consult to Dietitian, Adult Routine Comment: Reason For Exam: low appetite 09/20/24 10:55 Consult to Home Health Routine Comment: PT/OT/RN/Bath Aide Reason For Exam: Resume Home Health Orders 09/22/24 15:03 Consult to Physical Therapy Evaluate & Treat Comment: Physician Instructions: Evaluate and Treat 09/23/24 11:50 Consult to Occupational Therapy Evaluate & Treat Comment: Physician Instructions: Evaluate and treat Discharge provider: Manuel Martinez DO Summary Hospital Course Discharge Diagnosis: 1. Acute Sigmoid Diverticulitis, present on admission and active. 2. Chronic constipation, present on admission and active. 3. COPD, present on admission and active. 4. Chronic hypoxic respiratory failure, present on admission and active. 5. Anemia, present on admission and active. 6. HLD, present on admission and active. Hospital Course: This is a 63-year-old male with a past medical history of COPD, with chronic hypoxemic respiratory failure, chronic anemia, hyperlipidemia who was admitted to the hospital with sigmoid diverticulitis. His initial leukocytosis, along with his presenting abdominal pain and decreased appetite improved markedly with IV antibiotics. His diet was slowly advanced. He also suffers from chronic constipation which was improved with initiation of lactulose. His abdomen is now nondistended and nontender. On the day of discharge he was able to tolerate breakfast without any issues. He does have chronic anxiety, along with chronic limited mobility. He was seen by Physical therapy who stated the patient was at his baseline. He will complete a total 10 day course for diverticulitis at home with ciprofloxacin and Flagyl. He did have a slight decline in H and H, but more recently he has been at his chronic baseline with a hemoglobin in the mid 9s and he was slightly dehydrated likely on presentation. Had no evidence of active GI bleeding including dark stools, hematochezia, or hematemesis. He is on his baseline home oxygen at the time of discharge as well, and did not require additional supplemental oxygen while here in the hospital and therefore was without evidence of acute respiratory failure. Patient appealed his discharge on 09/23. He lost appeal and was notified on 09/24. He left the hospital on the morning of 09/25. No events occurred over the 2 days after appeal. Time Spent with Patient Time spent: Greater than 30 minutes Exam Vital Signs (past 8 hours): - 09/25/24 04:00 09/25/24 07:38 09/25/24 07:39 Temperature 97.2 F L Pulse Rate 81 95 H Respiratory Rate 22 20 20 Blood Pressure 136/73 Pulse Oximetry 98 94 Oxygen Delivery Method Nasal Cannula Oxygen Flow Rate 2 09/25/24 08:00 Temperature 97.3 F L Pulse Rate 85 Respiratory Rate 18 Blood Pressure 157/75 H Pulse Oximetry 99 Oxygen Delivery Method Oxygen Flow Rate 7 Fraction of Inspired Oxygen 28 SaO2/FiO2 Ratio 350 Oxygen Delivery Method Nasal Cannula Oxygen Flow Rate 7 Narrative Exam Narrative: gen: NAD Objective Labs 09/23/24 05:50 09/23/24 05:50 [facility] Medical History Lung nodule seen on imaging study History of tobacco abuse Fatigue Ventricular tachycardia (paroxysmal) Anemia Palpitations GERD with stricture HTN (hypertension) Insomnia (~2015) Hyperlipidemia (~2015) Anxiety (~2015) COPD (chronic obstructive pulmonary disease) (~2013) Asthma (Unknown) TIA (transient ischemic attack) (05/2014) Hematuria (~2014) Surgical History No pertinent past surgical history Family History Mother Age: 86 Hypertension Sister Age: 69 Cancer Social History household members: none Smoking Status: Current every day smoker Tobacco: How many years used: 47 quit status: considering quitting second hand exposure: No alcohol intake: former substance use type: does not use Discharge Plan Discharge Plan Patient Disposition: Home Provider Discharge Comment: You were admitted to the hospital with diverticulitis. Improved with antibiotics and you are tolerating a diet and stable for discharge home. Discharge orders & Medications Prescriptions: New hydromorphone 2 mg tablet 2 mg PO Q6H PRN (Reason: pain) 7 Days Qty: 14 0RF ciprofloxacin HCl 500 mg tablet 500 mg PO Q12H 5 Days Qty: 10 0RF metronidazole 500 mg tablet 500 mg PO Q8H 5 Days Qty: 15 0RF lactulose 10 gram/15 mL solution 20 g PO TID Qty: 2700 0RF Continued benzonatate 100 mg capsule 100 mg PO BID-TID PRN (Reason: Cough) Qty: 270 0RF (DME) Disabled Parking Permint See Rx Instructions .ROUTE .MEDSUPPLY Qty: 1 0RF Rx Instructions: I find this patient to be medically disabled and qualified for Disabled Parking as indicated and signed on the Accompanying Disabled Parking Application for individuals. Dulera 200-5 mcg/actuation HFA aerosol inhaler 2 puff PO BID Qty: 13 5RF cetirizine 10 mg tablet 10 mg PO BEDTIME clonazepam 0.5 mg tablet 0.5 mg PO TID Qty: 90 3RF Rx Instructions: 08/25/24:Mak states he is only taking the Clonazepam twice daily on a regular basis but needs the option to take it TID if needed when anxiety is especially high. guaifenesin 100 mg/5 mL liquid 200 mg PO Q4H PRN (Reason: cough) prednisone 10 mg tablet 40 mg PO DAILY Qty: 30 0RF nitroglycerin 0.3 mg tablet, sublingual 0.3 mg sublingual Q5-15M PRN (Reason: chest pain) Qty: 20 0RF Rx Instructions: do not exceed 3 doses per episode ondansetron 4 mg tablet,disintegrating 4 mg PO Q6-8H PRN (Reason: nausea and vomiting) simvastatin 20 mg tablet 20 mg PO QPM Qty: 90 3RF albuterol sulfate 2.5 mg /3 mL (0.083 %) solution for nebulization 2.5 mg inhalation QID PRN (Reason: shortness of breath or wheezing) Qty: 180 11RF albuterol sulfate [Ventolin HFA] 90 mcg/actuation HFA aerosol inhaler 1 - 2 puff PO Q4H PRN (Reason: for wheezing) Qty: 54 11RF ipratropium bromide 0.02 % solution 2.5 ml inhalation QID PRN (Reason: shortness of breath or wheezing) Qty: 150 11RF ascorbate calcium (vitamin C) 500 mg tablet 500 mg PO DAILY ferrous gluconate 324 mg (38 mg iron) tablet 324 mg PO DAILY Qty: 90 1RF mecobalamin (vitamin B12) 1,000 mcg tablet,chewable 1,000 mcg PO DAILY alum-mag hydroxide-simeth 400-400-40 mg/5 mL Suspension See Rx Instructions .ROUTE .COMPLEX MDD 120 ml PRN (Reason: heartburn/gas) Rx Instructions: [facility] Brand Mylanta Gas -- 400 mg Aluminum Hydroxide, 400mg Magnesium Hydroxide, 40mg Simethicone/10 ml (Suspension) 10 to 20 ml PRN with/after meals & bedtime as needed for heartburn/gas relief by Mouth Max dose 120 ml total/24 hours multivit with min-folic acid 0.4 mg Tablet 1 tab PO DAILY nystatin 100,000 unit/mL suspension 5 ml PO QID PRN (Reason: thrush) montelukast 10 mg tablet 10 mg PO BEDTIME simethicone [Gas Relief 80 (simethicone)] 80 mg Tablet,Chewable 80 mg PO QID PRN (Reason: Flatulence) Qty: 60 0RF lactulose [Kristalose] 10 gram packet 20 g PO BID PRN (Reason: constipation) Qty: 15 0RF Patient Comments: HAS NOT TAKEN 1st DOSE Discontinued amoxicillin-pot clavulanate 875-125 mg tablet 1 tab PO BID Qty: 20 0RF Patient Comments: HAS NOT TAKEN YET- JUST Rx'D T-1 Follow up/Referrals: Saqib Oliva, [Primary Care Provider] - Diet/Activity/Treatments Diet: Diet as Tolerated and Regular Activity: As tolerated no restrictions Oxygen: As needed to maintain O2 89-96% Visit Report/Discharge Packet Instructions: Diverticulitis, DI for Chronic Obstructive Pulmonary Disease, DI for Diverticulitis Stand Alone Forms: Patient Portal/API, Stroke Signs & Symptoms Discharge Data Primary Care Provider: Saqib Oliva
[2024-09-25] MEDS: clonazePAM 0.5 MG TABLET PO (09:11)
[2024-09-25] MEDS: HEPARIN 5,000 UNIT/ML VIAL 5000 UNIT SUBCUT (09:11)
[2024-09-25] MEDS: predniSONE 20 MG TABLET 10 MG PO (09:12)
[2024-09-25] MEDS: metroNIDAZOLE 500 MG TABLET PO (09:12)
--- NOTE | 2024-09-25 12:15 | PC.NURSE ---
Discharge note: Discharge instructions given to patient and Mother, discussed importance of F/U with PMD, new medications and adherence, and signs of worsening symptoms. Home O2 set up in use. Patient and Mother verbalized understanding of instructions. Up OOB to chair, dressed with minimal assistance. Home via private vehicle accompanied by Mom. Rx to be picked up at [facility] en route home.
== END 2024-09-25 10:58 | disposition home health service (06) | DRG 392 ==
LOC: ED 02:36 → AC 02:37
PROVIDERS: Internal Medicine; Admitting Provider Internal Medicine; Emergency Provider Emergency Medicine; PCP Family Medicine; Referring Provider Emergency Medicine; Visit Provider Internal Medicine
DX: K57.32 Diverticulitis of large intestine without perforation or abscess without bleeding (principal); J96.11 Chronic respiratory failure with hypoxia; J44.1 Chronic obstructive pulmonary disease with (acute) exacerbation; E78.2 Mixed hyperlipidemia; K59.09 Other constipation; E86.0 Dehydration; F41.9 Anxiety disorder, unspecified; D50.9 Iron deficiency anemia, unspecified; Z99.81 Dependence on supplemental oxygen; Z79.52 Long term (current) use of systemic steroids; F17.210 Nicotine dependence, cigarettes, uncomplicated; R10.10 Upper abdominal pain, unspecified
CPT/HCPCS: 0241U; 36415; 71045; 74177; 80048; 80053; 82550; 83605; 83690; 83735; 83880; 84484; 85025; 85610; 85730; 93005; 94640; 94760; 94762; 96361; 96365; 96374; 96375; 96376; 97161; 97166; 97530; 97535; 99284; 99285; 99291; J1171; J1644; J1885; J2405; J2470; J2543; J7613; Q9967

== ENCOUNTER 2024-10-23 07:13 | Inpatient (IN) | payer MEDICARE, MEDICAID, SELFPAY ==
[2024-09-19 02:52] VITALS: BMI 25.8
[2024-10-23] VITALS (20 sets, daily range): BP systolic 132–170; BP diastolic 64–93; PULSE 85–126; RESP 18–59; TEMP 36.4–37; O2SAT 91–97; BMI 24.0
--- NOTE | 2024-10-23 07:24 | EKG_ITS ---
[id number] [place] [address] Test Date: 2024-10-23 Pat Name: Mak Rose Department: Room: Gender: Male [employer]iter: LEWIS : 1960 Requested By: Order Number: [id number] Reading MD: Nicko Thurman MD Measurements Intervals [place] Rate: 119 P: 72 NM: 126 QRS: 72 QRSD: 102 T: 35 QT: 292 QTc: 410 Interpretive Statements Sinus tachycardia Right atrial enlargement NO SIGNIFICANT CHANGE FROM PRIOR TRACING Electronically Signed On 10-24-2024 7:31:08 PDT by Nicko Thurman MD
[2024-10-23] MEDS: ALBUTEROL/IPRATROPIUM 3 ML AMPUL INH (07:29)
--- NOTE | 2024-10-23 07:33 | DI.RAD.S_ITS ---
PROCEDURE: XR CHEST 1V INDICATIONS: Shortness of breath TECHNIQUE: One view of the chest was acquired. COMPARISON: [facility], CT, CT ABDOMEN PELVIS WO CON, 10/23/2024, 7:47. [facility], CT, CT ANGIO CHEST PE PROTOCOL, 09/13/2023, 10:57. [facility], CT, CT ANGIO CHEST PE PROTOCOL, 05/14/2024, 15:33. [facility], CR, XR CHEST 1V, 09/15/2024, 23:48. [facility], CR, XR CHEST 1V, 09/18/2024, 10:42. [facility], CT, CT ABDOMEN PELVIS W CON, 09/18/2024, 14:52. FINDINGS: Surgical changes and devices: None. Lungs and pleura: Stable streaky opacity can be seen within the right upper lung. The lungs are otherwise unremarkable. No pneumothorax or pleural effusions are seen. Mediastinum: Mediastinal contours appear normal. Heart size is normal. Bones and chest wall: No suspicious bony lesions. Overlying soft tissues appear unremarkable. IMPRESSION: Stable streaky opacity within the right mid lung. Differential diagnosis includes scarring versus neoplasm. Follow-up CT is recommended to evaluate for stability by CT. Dictated by: Pio Lennon M.D. on 10/23/2024 at 7:52 Approved by: Pio Lennon M.D. on 10/23/2024 at 7:56
--- NOTE | 2024-10-23 07:39 | DI.CT.S_ITS ---
PROCEDURE: CT ABDOMEN PELVIS WO CON INDICATIONS: abdominal pain TECHNIQUE: Axial sections were acquired from the lung bases to the pubic symphysis. Coronal and sagittal reformats were performed. For radiation dose reduction, the following was used: automated exposure control, adjustment of mA and/or kV according to patient size. COMPARISON: CT abdomen pelvis 09/18/2024. FINDINGS: Image quality: Diagnostic. Lower Chest: No significant findings. URINARY: Right Kidney: Redemonstration of nonobstructing 1 cm inferior pole calculus (HU 800). No hydronephrosis. Right Ureter: No hydroureter. Left Kidney: No stones or hydronephrosis. Left Ureter: No hydroureter. Bladder: Normal wall thickness. No stones. ABDOMEN: Liver: No contour-deforming solid mass. Gallbladder: No radiopaque gallstones or wall thickening. Biliary ducts: No biliary dilation. Pancreas: No ductal dilation. Spleen: Size is within normal limits. Adrenal Glands: No adrenal nodules. Stomach and Bowel: Normal colonic caliber, without significant wall thickening. Colonic diverticulosis. As before, there is inflammatory changes adjacent to distal sigmoid colon diverticulum with surrounding inflammation, overall inflammatory changes have decreased since prior CT 09/18/2024. Peritoneum: No abnormal intraperitoneal fluid. No free air. Ventral Wall: No hernia. Abdominal Nodes: No enlarged retroperitoneal or mesenteric lymph nodes. Vessels: Aorta and inferior vena cava are normal in size. PELVIS: Pelvic Organs: Unremarkable. Pelvic Nodes: Unremarkable. Miscellaneous: No inguinal hernias are seen. Bones: Unremarkable. IMPRESSION: Acute uncomplicated sigmoid diverticulitis, with decreased surrounding inflammation since prior CT 09/18/2024. No peridiverticular fluid collection or free air to suggest complications. No new areas of inflammation. Nonobstructing 1.0 cm right inferior pole calculus. Approved by: Francoise Zacarias M.D.,Ph.D. on 10/23/2024 at 9:01
--- NOTE | 2024-10-23 07:42 | ED_ITS ---
HPI - SOB/Dyspnea General Chief Complaint: Shortness of Breath/Dyspnea Stated Complaint: COPD/Divertic. Time Seen by Provider: 10/23/24 07:14 Source: patient Mode of arrival: Ambulatory Limitations: no limitations History of Present Illness HPI Narrative: 63-year-old gentleman history of COPD on 2 L of O2 nasal cannula brought in via EMS for shortness breath and left flank pain. Patient was given 1 DuoNeb prior to arrival by EMS. Patient has chronic shortness of breath and coughing his baseline but states he has been coughing up more phlegm and although he has chronic back pain his left lower back region hurts more than usual. Patient denies nausea vomiting belly pain chest pain fever chills hematuria dysuria penile discharge or trauma to the area or recent heavy lifting. Other than what is stated 14 point review of system is negative Related Data Home Medications Medication Instructions Recorded Confirmed ascorbate calcium (vitamin C) 500 500 mg PO DAILY 08/06/23 09/30/24 mg tablet aluminum-mag hydroxide-simethicone See Rx Instructions .Route 05/14/24 09/30/24 400 mg-400 mg-40 mg/5 mL oral susp .COMPLEX PRN heartburn/gas multivitamin with minerals-folic 1 tab PO DAILY 05/14/24 09/30/24 acid 0.4 mg tablet nystatin 100,000 unit/mL oral 5 ml PO QID PRN thrush 05/14/24 09/30/24 suspension cetirizine 10 mg tablet 10 mg PO BEDTIME allergy/asthma 08/25/24 09/30/24 guaifenesin 100 mg/5 mL oral liquid 200 mg PO Q4H PRN cough 08/25/24 09/30/24 mecobalamin (vitamin B12) 1,000 1,000 mcg PO DAILY 08/25/24 09/30/24 mcg chewable tablet Previous Rx's Medication Instructions Recorded ferrous gluconate 324 mg (38 mg 324 mg PO DAILY #90 tabs 03/28/24 iron) tablet benzonatate 100 mg capsule 100 mg PO BID-TID PRN Cough #270 05/19/24 caps Disabled Parking Permint #1 ea 07/01/24 mometasone-formoterol HFA 200 2 puff PO BID #13 grams 07/22/24 mcg-5 mcg/actuation aerosol inhaler (Dulera) simethicone 80 mg chewable tablet 80 mg PO QID PRN Flatulence #60 08/24/24 (Gas Relief 80 (simethicone)) tabs clonazepam 0.5 mg tablet 0.5 mg PO TID #90 tabs 08/25/24 nitroglycerin 0.3 mg sublingual 0.3 mg sublingual Q5-15M PRN chest 08/25/24 tablet pain #20 tabs simvastatin 20 mg tablet 20 mg PO QPM #90 tabs 08/25/24 albuterol sulfate 2.5 mg/3 mL 2.5 mg (3 mL) inhalation QID PRN 09/09/24 (0.083 %) solution for nebulization shortness of breath or wheezing #180 mL albuterol sulfate 90 mcg/actuation 1 - 2 puff PO Q4H PRN for wheezing 09/09/24 aerosol inhaler (Ventolin HFA) #54 grams ipratropium bromide 0.02 % 2.5 ml inhalation QID PRN 09/09/24 solution for inhalation shortness of breath or wheezing #150 mL lactulose 10 gram oral packet 20 g PO BID PRN constipation #15 ea 09/18/24 (Kristalose) lactulose 10 gram/15 mL oral 20 g (30 mL) PO TID #2,700 mL 09/25/24 solution ondansetron 4 mg disintegrating 4 mg PO Q6-8H PRN nausea and 09/26/24 tablet vomiting #30 tabs prednisone 20 mg tablet 40 mg (2 x 20 mg) PO DAILY #30 tabs 09/26/24 montelukast 10 mg tablet 10 mg PO BEDTIME #90 tabs 10/11/24 Allergies Allergy/AdvReac Type Severity Reaction Status Date / Time cinnamon [CINNAMON] Allergy Severe RESP Verified 09/30/24 14:57 PROBLEMS AND SWELLING Sulfa (Sulfonamide Allergy Severe anaphylacti Verified 09/30/24 14:57 Antibiotics) c [SULFA (SULFONAMIDE ANTIBIOTICS)] fluticasone [FLUTICASONE] Allergy Intermediate FEELS Verified 09/30/24 14:57 LIKE FIRE IN THE LUNGS trimethoprim [TRIMETHOPRIM] Allergy Unknown Patient Verified 09/30/24 14:57 can't remember dextromethorphan AdvReac Severe Difficulty Verified 09/30/24 14:57 Breathing fentanyl AdvReac Severe Difficulty Verified 09/30/24 14:57 Breathing codeine [CODEINE] AdvReac Intermediate violent Verified 09/30/24 14:57 doxycycline [DOXYCYCLINE] AdvReac Mild N/V Verified 09/30/24 14:57 Review of Systems Review of Systems ROS Unobtainable: All systems reviewed & are unremarkable except as noted in HPI and below Patient History Medical History Lung nodule seen on imaging study History of tobacco abuse Fatigue Ventricular tachycardia (paroxysmal) Anemia Palpitations GERD with stricture HTN (hypertension) Insomnia (~2015) Hyperlipidemia (~2015) Anxiety (~2015) COPD (chronic obstructive pulmonary disease) (~2013) Asthma (Unknown) TIA (transient ischemic attack) (05/2014) Hematuria (~2014) Surgical History No pertinent past surgical history Family History Mother Age: 86 Hypertension Sister Age: 69 Cancer Social History household members: none Tobacco: How many years used: 47 quit status: considering quitting second hand exposure: No alcohol intake: former substance use type: does not use tobacco type: cigarettes alcohol intake frequency: holidays/special occasions only Exam Narrative Exam Narrative: GENERAL: [63] year old patient appears stated age. Well-developed patient, in mild distress. HEAD: Atraumatic. Normocephalic. EYES: Pupils equal round and reactive. Extraocular motions intact. No scleral icterus. No injection or drainage. ENT: Nose without bleeding, purulent drainage. Throat without erythema, tonsillar hypertrophy or exudate. Airway patent. NECK: Trachea midline. Non tender CARDIOVASCULAR: Regular rate and rhythm without murmurs, gallops, or rubs. RESPIRATORY: Dec b/s b/l with wheezing throughout GASTROINTESTINAL: Abdomen soft, non-tender, nondistended. EXTREMITIES: No edema or joint tenderness. BACK: Nontender without deformity or crepitance. No flank tenderness. NEURO: AOx3. SKIN: No rash or erythema of visible areas Initial Vital Signs Initial Vital Signs: Vital Signs Pulse Rate 126 H 10/23/24 07:19 Respiratory Rate 59 H 10/23/24 07:19 Pulse Oximetry 95 10/23/24 07:19 Course Orders Ordered: ED Orders 10/23/24 07:23 Complete Blood Count AUTO DIFF Stat Comprehensive Metabolic Panel Stat Lactate (Lactic Acid) Stat NT-proBNP (BNP-Adult 18+) Stat Procalcitonin Stat Prothrombin Time INR Stat Troponin I Stat 10/23/24 07:33 XR chest 1V Stat EKG-12 Lead Stat Measure peak expiratory flow ONCE RT Consult Eval and Treat NOW 10/23/24 07:39 CT abdomen pelvis wo con Stat 10/23/24 07:40 Covid-19 + FLU A/B + RSV - PCR Stat 10/23/24 08:20 Blood Culture Stat Albuterol (Albuterol 2.5 Mg/3 Ml Neb (Adult)) 2.5 mg INH [id number] PRN PRN Reason: Shortness Of Breath Lactated Ringer's (Lactated Ringers) 1,000 mls @ 1,000 mls/hr IV BOLUS ONE Stop: 10/23/24 10:31 Last Admin: 10/23/24 09:36 Dose: 1,000 mls/hr Documented By: ISAIAS Discontinued Medications Albuterol/Ipratropium (Albuterol/Ipratropium 3 Ml Ampul) 3 ml INH NOW ONE Stop: 10/23/24 07:27 Last Admin: 10/23/24 07:29 Dose: 3 ml Documented By: JOAQUIN Hydromorphone HCl (Hydromorphone 1 Mg Inj) 1 mg IV NOW ONE Stop: 10/23/24 09:33 Last Admin: 10/23/24 09:35 Dose: 1 mg Documented By: ISAIAS Lactated Ringer's (Lactated Ringers) 1,000 mls @ 1,000 mls/hr IV BOLUS ONE Stop: 10/23/24 09:16 Last Infusion: 10/23/24 09:33 Dose: Infused Documented By: Admin: 10/23/24 08:19 Dose: 1,000 mls/hr Documented By: ISAIAS Ceftriaxone Sodium 1,000 mg/ (Sodium Chloride) 100 mls @ 200 mls/hr IV NOW ONE Stop: 10/23/24 08:46 Last Infusion: 10/23/24 09:33 Dose: Infused Documented By: Admin: 10/23/24 08:51 Dose: 200 mls/hr Documented By: ISAIAS Azithromycin 500 mg/ Dextrose 250 mls @ 250 mls/hr IV NOW ONE Stop: 10/23/24 08:46 Last Admin: 10/23/24 09:31 Dose: 250 mls/hr Documented By: ISAIAS Methylprednisolone (Methylprednisolone 125 Mg/2 Ml Vial) 125 mg IV NOW ONE Stop: 10/23/24 07:41 Last Admin: 10/23/24 08:06 Dose: 125 mg Documented By: ISAIAS Ondansetron HCl (Ondansetron 4 Mg Odt) 4 mg SL NOW ONE Stop: 10/23/24 09:45 Last Admin: 10/23/24 09:47 Dose: 4 mg Documented By: ISAIAS Vital Signs Vital signs: Vital Signs - 8 hr 10/23/24 07:19 10/23/24 07:22 10/23/24 07:30 Temperature 98.6 F Pulse Rate 126 H 125 H 119 H Respiratory Rate 59 H 22 39 H Blood Pressure 133/93 H Pulse Oximetry 95 95 93 Oxygen Delivery Method Nasal Cannula Nasal Cannula Oxygen Flow Rate 2 2 10/23/24 07:31 10/23/24 07:31 10/23/24 07:32 Temperature Pulse Rate 119 H 122 H Respiratory Rate 28 H 22 Blood Pressure 170/76 H Pulse Oximetry 94 92 Oxygen Delivery Method Nasal Cannula Oxygen Flow Rate 2 10/23/24 08:06 10/23/24 08:30 10/23/24 09:00 Temperature Pulse Rate 122 H 117 H 112 H Respiratory Rate 23 22 29 H Blood Pressure Pulse Oximetry 91 93 93 Oxygen Delivery Method Nasal Cannula Oxygen Flow Rate 2 10/23/24 09:30 10/23/24 10:00 Temperature Pulse Rate 120 H 114 H Respiratory Rate 26 H 21 Blood Pressure Pulse Oximetry 93 92 Oxygen Delivery Method Nasal Cannula Oxygen Flow Rate 2 MDM - SOB/Dyspnea Lab Data 10/23/24 07:23 10/23/24 07:23 Labs: Lab Results 10/23/24 10/23/24 10/23/24 Range/Units 07:23 07:40 09:38 WBC 16.1 H (4.5-11.0) X10^3/uL RBC 4.41 L (4.5-5.9) X10^6/uL Hgb 12.0 L (13.5-17.5) g/dL Hct 38.2 L (41-53) % MCV 86.7 (80-100) fL MCH 27.3 (26-34) PG MCHC 31.5 (30-36) % RDW 17.2 H (11.6-14.8) % Plt Count 244 (150-400) X10^3/uL Neut % (Auto) 77.4 H (50-75) % Lymph % (Auto) 12.4 L (25-40) % [place] % (Auto) 9.4 (3-14) % Eos % (Auto) 0.4 L (2-4) % Baso % (Auto) 0.4 (0-2) % Neut # (Auto) 97749 H (3414-2251) /uL Lymph # (Auto) 2000 (1485-7130) /uL [place] # (Auto) 1500 H (0-900) /uL Eos # (Auto) 100 (0-450) /uL Baso # (Auto) 100 (0-100) /uL PT 11.5 (9.4-12.5) SECONDS INR 1.0 (0.9-1.3) Sodium 143 (137-145) mmol/L Potassium 4.5 (3.4-5.1) mmol/L Chloride 96 L (98-107) mmol/L Carbon Dioxide 38 H (22-32) mmol/L BUN 20 (9-20) mg/dL Creatinine 0.99 (0.66-1.25) mg/dL Estimated GFR > 60 (>60) mL/min BUN/Creatinine Ratio 20.2 (6-22) Glucose 114 H (80-110) mg/dL Lactate 2.9 H 1.2 (0.7-2.1) mmol/L Calcium 10.2 (8.4-10.2) mg/dL Total Bilirubin 0.6 (0.2-1.3) mg/dL AST 41 (17-59) IU/L ALT 22 (<50) IU/L Alkaline Phosphatase 51 (38-126) U/L Troponin I < 0.012 (0.01-0.034) ng/mL NT-Pro-B Natriuret Pep 144 H (<125) pg/mL Total Protein 8.3 H (6.3-8.2) g/dL Albumin 4.4 (3.5-5.0) g/dL Globulin 3.9 (1.7-4.1) g/dL Albumin/Globulin Ratio 1.1 (1.0-2.8) Procalcitonin 0.110 (<0.5) ng/mL SARS-CoV-2 (PCR) Negative (Negative) Influenza A (RT-PCR) Flu a negative (NEGATIVE) Influenza B (RT-PCR) Flu b negative (NEGATIVE) RSV (PCR) Negative (Negative) Imaging Data Chest x-ray: Radiologist's Impression: PROCEDURE: XR CHEST 1V INDICATIONS: Shortness of breath TECHNIQUE: One view of the chest was acquired. COMPARISON: [facility], CT, CT ABDOMEN PELVIS WO CON, 10/23/2024, 7:47. [facility], CT, CT ANGIO CHEST PE PROTOCOL, 09/13/2023, 10:57. [facility], CT, CT ANGIO CHEST PE PROTOCOL, 05/14/2024, 15:33. [facility], CR, XR CHEST 1V, 09/15/2024, 23:48. [facility], CR, XR CHEST 1V, 09/18/2024, 10:42. [facility], CT, CT ABDOMEN PELVIS W CON, 09/18/2024, 14:52. FINDINGS: Surgical changes and devices: None. Lungs and pleura: Stable streaky opacity can be seen within the right upper lung. The lungs are otherwise unremarkable. No pneumothorax or pleural effusions are seen. Mediastinum: Mediastinal contours appear normal. Heart size is normal. Bones and chest wall: No suspicious bony lesions. Overlying soft tissues appear unremarkable. IMPRESSION: Stable streaky opacity within the right mid lung. Differential diagnosis includes scarring versus neoplasm. Follow-up CT is recommended to evaluate for stability by CT. [address] [address] [address] Scan Report Signed Patient: Mak Rose MR#: [id number] : 1960 Acct:[id number] Age/Sex: 63 / M Date of Service: 10/23/24 Loc: ED Accession Number: [id number] Procedure: CT abdomen pelvis wo con Ordering Provider: Nicko Couch D.O. PROCEDURE: CT ABDOMEN PELVIS WO CON INDICATIONS: abdominal pain TECHNIQUE: Axial sections were acquired from the lung bases to the pubic symphysis. Coronal and sagittal reformats were performed. For radiation dose reduction, the following was used: automated exposure control, adjustment of mA and/or kV according to patient size. COMPARISON: CT abdomen pelvis 09/18/2024. FINDINGS: Image quality: Diagnostic. Lower Chest: No significant findings. URINARY: Right Kidney: Redemonstration of nonobstructing 1 cm inferior pole calculus (HU 800). No hydronephrosis. Right Ureter: No hydroureter. Left Kidney: No stones or hydronephrosis. Left Ureter: No hydroureter. Bladder: Normal wall thickness. No stones. ABDOMEN: Liver: No contour-deforming solid mass. Gallbladder: No radiopaque gallstones or wall thickening. Biliary ducts: No biliary dilation. Pancreas: No ductal dilation. Spleen: Size is within normal limits. Adrenal Glands: No adrenal nodules. Stomach and Bowel: Normal colonic caliber, without significant wall thickening. Colonic diverticulosis. As before, there is inflammatory changes adjacent to distal sigmoid colon diverticulum with surrounding inflammation, overall inflammatory changes have decreased since prior CT 09/18/2024. Peritoneum: No abnormal intraperitoneal fluid. No free air. Ventral Wall: No hernia. Abdominal Nodes: No enlarged retroperitoneal or mesenteric lymph nodes. Vessels: Aorta and inferior vena cava are normal in size. PELVIS: Pelvic Organs: Unremarkable. Pelvic Nodes: Unremarkable. Miscellaneous: No inguinal hernias are seen. Bones: Unremarkable. IMPRESSION: Acute uncomplicated sigmoid diverticulitis, with decreased surrounding inflammation since prior CT 09/18/2024. No peridiverticular fluid collection or free air to suggest complications. No new areas of inflammation. Nonobstructing 1.0 cm right inferior pole calculus. Approved by: Francoise Zacarias M.D.,Ph.D. on 10/23/2024 at 9:01 ECG Data Attestation: I personally reviewed and interpreted this ECG as follows: Interpretation: Sinus Tach HR 119 OK 126 QRS 102 QT 292 Unchanged from 09/19/[address]-t wave change MDM Narrative Medical decision making narrative: All lab work vital signs nurse triage note medication list previous ER records and all imaging studies reviewed. Patient given lactated ringer 1 L bolus x2. Solu-Medrol 125 mg IV along with Rocephin 1 g and Zithromax 500 mg IV. Case discussed with hospitalist service Dr. Rose who has graciously accepted pt for inpatient admission. Differential diagnosis includes COVID, flu, RSV, pneumonia, diverticulitis, pancreatitis, sepsis, copd exacerbation. Discharge Plan Departure Patient Disposition: Admitted As Inpatient Clinical Impression: Diverticulitis, COPD with exacerbation Prescriptions: No Action benzonatate 100 mg capsule 100 mg PO BID-TID PRN (Reason: Cough) Qty: 270 0RF (DME) Disabled Parking Permint See Rx Instructions .ROUTE .MEDSUPPLY Qty: 1 0RF Rx Instructions: I find this patient to be medically disabled and qualified for Disabled Parking as indicated and signed on the Accompanying Disabled Parking Application for individuals. Dulera 200-5 mcg/actuation HFA aerosol inhaler 2 puff PO BID Qty: 13 5RF cetirizine 10 mg tablet 10 mg PO BEDTIME clonazepam 0.5 mg tablet 0.5 mg PO TID Qty: 90 3RF Rx Instructions: 08/25/24:Mak states he is only taking the Clonazepam twice daily on a regular basis but needs the option to take it TID if needed when anxiety is especially high. guaifenesin 100 mg/5 mL liquid 200 mg PO Q4H PRN (Reason: cough) nitroglycerin 0.3 mg tablet, sublingual 0.3 mg sublingual Q5-15M PRN (Reason: chest pain) Qty: 20 0RF Rx Instructions: do not exceed 3 doses per episode simvastatin 20 mg tablet 20 mg PO QPM Qty: 90 3RF albuterol sulfate 2.5 mg /3 mL (0.083 %) solution for nebulization 2.5 mg inhalation QID PRN (Reason: shortness of breath or wheezing) Qty: 180 11RF albuterol sulfate [Ventolin HFA] 90 mcg/actuation HFA aerosol inhaler 1 - 2 puff PO Q4H PRN (Reason: for wheezing) Qty: 54 11RF ipratropium bromide 0.02 % solution 2.5 ml inhalation QID PRN (Reason: shortness of breath or wheezing) Qty: 150 11RF montelukast 10 mg tablet 10 mg PO BEDTIME Qty: 90 3RF ascorbate calcium (vitamin C) 500 mg tablet 500 mg PO DAILY ferrous gluconate 324 mg (38 mg iron) tablet 324 mg PO DAILY Qty: 90 1RF ondansetron 4 mg tablet,disintegrating 4 mg PO Q6-8H PRN (Reason: nausea and vomiting) Qty: 30 0RF prednisone 20 mg tablet 40 mg PO DAILY Qty: 30 0RF mecobalamin (vitamin B12) 1,000 mcg tablet,chewable 1,000 mcg PO DAILY alum-mag hydroxide-simeth 400-400-40 mg/5 mL Suspension See Rx Instructions .ROUTE .COMPLEX MDD 120 ml PRN (Reason: heartburn/gas) Rx Instructions: [employer] Brand Mylanta Gas -- 400 mg Aluminum Hydroxide, 400mg Magnesium Hydroxide, 40mg Simethicone/10 ml (Suspension) 10 to 20 ml PRN with/after meals & bedtime as needed for heartburn/gas relief by Mouth Max dose 120 ml total/24 hours multivit with min-folic acid 0.4 mg Tablet 1 tab PO DAILY nystatin 100,000 unit/mL suspension 5 ml PO QID PRN (Reason: thrush) lactulose 10 gram/15 mL solution 20 g PO TID Qty: 2700 0RF simethicone [Gas Relief 80 (simethicone)] 80 mg Tablet,Chewable 80 mg PO QID PRN (Reason: Flatulence) Qty: 60 0RF lactulose [Kristalose] 10 gram packet 20 g PO BID PRN (Reason: constipation) Qty: 15 0RF Patient Comments: HAS NOT TAKEN 1st DOSE Referrals: Saqib Oliva DO [Primary Care Provider] - Admit Date/Time: 10/23/24 10:29 Admit Provider: Davey Rose
[2024-10-23 07:49] LABS: Add Manual Diff / Slide Review NO; Basophils Absolute Auto 100 /uL (0-100); Basophils Percent Auto 0.4 % (0-2); Eosinophils Absolute Auto 100 /uL (0-450); Eosinophils Percent Auto 0.4 % (2-4); Hematocrit 38.2 % (41-53); Lymphocytes Absolute Auto 2000 /uL (1100-4500); Lymphocytes Percent Auto 12.4 % (25-40); Mean Corpuscular HGB Conc 31.5 % (30-36); Mean Corpuscular Hemoglobin 27.3 PG (26-34); Mean Corpuscular Volume 86.7 fL (80-100); Monocytes Absolute Auto 1500 /uL (0-900); Monocytes Percent Auto 9.4 % (3-14); Neutrophils Absolute Auto 12500 /uL (1500-7000); Neutrophils Percent Auto 77.4 % (50-75); Platelet Count 244 X10^3/uL (150-400); Red Blood Cell Count 4.41 X10^6/uL (4.5-5.9); Red Cell Distribution Width 17.2 % (11.6-14.8); White Blood Cell Count 16.1 X10^3/uL (4.5-11.0)
[2024-10-23 07:58] LABS: Prothrombin Time 11.5 SECONDS (9.4-12.5)
[2024-10-23 08:00] LABS: Lactate (Lactic Acid) 2.9 mmol/L (0.7-2.1)
[2024-10-23 08:02] LABS: Alanine Aminotransferase 22 IU/L (<50); Albumin 4.4 g/dL (3.5-5.0); Albumin Globulin Ratio 1.1 (1.0-2.8); Alkaline Phosphatase 51 U/L (38-126); Aspartate Aminotransferase 41 IU/L (17-59); BUN Creatinine Ratio 20.2 (6-22); Bilirubin Total 0.6 mg/dL (0.2-1.3); Blood Urea Nitrogen 20 mg/dL (9-20); Calcium 10.2 mg/dL (8.4-10.2); Carbon Dioxide 38 mmol/L (22-32); Chloride 96 mmol/L (98-107); Estimated Glomerular Filt Rate > 60 mL/min (>60); Globulin 3.9 g/dL (1.7-4.1); Glucose 114 mg/dL (80-110); Potassium 4.5 mmol/L (3.4-5.1); Sodium 143 mmol/L (137-145); Total Protein 8.3 g/dL (6.3-8.2)
[2024-10-23] MEDS: methylPREDNISolone 125 MG/2 ML VIAL IV (08:06)
[2024-10-23 08:07] LABS: HEMOLYSIS 72 (0-50)
[2024-10-23 08:13] LABS: NT-proBNP (BNP-Adult 18+) 144 pg/mL (<125); Troponin I < 0.012 ng/mL (0.01-0.034)
[2024-10-23] MEDS: LACTATED RINGERS 1,000 ML 1000 ML IV ×2 (08:19→09:36)
[2024-10-23] MEDS: cefTRIAXone 1,000 MG in SODIUM CHLORIDE 0.9% 100 ML 200 MG IV (08:51)
[2024-10-23 09:00] LABS: Influenza A - CEPHEID Flu A NEGATIVE (NEGATIVE); Influenza B - CEPHEID Flu B NEGATIVE (NEGATIVE); Respiratory Syncytial Virus Negative (Negative)
[2024-10-23 09:06] LABS: COVID-19 CEPHEID 4-PLEX PCR Negative (Negative)
[2024-10-23 09:17] LABS: Reflexed Lactate in 2 Hours Y
[2024-10-23] MEDS: AZITHROMYCIN 500 MG in DEXTROSE 5% IN WATER 250 ML 250 MG IV (09:31)
[2024-10-23] MEDS: HYDROMORPHONE 1 MG INJ IV (09:35)
[2024-10-23] MEDS: ONDANSETRON 4 MG ODT SL (09:47)
--- NOTE | 2024-10-23 09:50 | PC.NURSE ---
Pt is demonstrating demanding behavior. He over-instructs the nursing team and techs, in a passive aggressive manner. His needs are being attended to in a timely manner but he is difficult to satisfy. Charge aware.
[2024-10-23 10:05] LABS: Lactate 2HR (Lactic Acid Rflx) 1.2 mmol/L (0.7-2.1)
[2024-10-23 12:03] LABS: Add Manual Diff / Slide Review NO; Basophils Absolute Auto 0 /uL (0-100); Basophils Percent Auto 0.2 % (0-2); Eosinophils Absolute Auto 0 /uL (0-450); Eosinophils Percent Auto 0.1 % (2-4); Hematocrit 32.5 % (41-53); Hemoglobin 10.1 g/dL (13.5-17.5); Lymphocytes Absolute Auto 400 /uL (1100-4500); Lymphocytes Percent Auto 2.3 % (25-40); Mean Corpuscular HGB Conc 31.2 % (30-36); Mean Corpuscular Hemoglobin 26.9 PG (26-34); Monocytes Absolute Auto 800 /uL (0-900); Neutrophils Absolute Auto 17900 /uL (1500-7000); Neutrophils Percent Auto 93.4 % (50-75); Platelet Count 190 X10^3/uL (150-400); Red Blood Cell Count 3.78 X10^6/uL (4.5-5.9); Red Cell Distribution Width 16.6 % (11.6-14.8); White Blood Cell Count 19.1 X10^3/uL (4.5-11.0)
[2024-10-23 12:14] LABS: BUN Creatinine Ratio 20.9 (6-22); Blood Urea Nitrogen 18 mg/dL (9-20); Calcium 9.1 mg/dL (8.4-10.2); Carbon Dioxide 35 mmol/L (22-32); Chloride 98 mmol/L (98-107); Estimated Glomerular Filt Rate > 60 mL/min (>60); Glucose 167 mg/dL (80-110); HEMOLYSIS < 15 (0-50); Potassium 4.4 mmol/L (3.4-5.1); Sodium 136 mmol/L (137-145)
[2024-10-23] MEDS: ALBUTEROL 2.5 MG/3 ML NEB (ADULT) INH ×4 (13:23→23:16)
[2024-10-23] MEDS: clonazePAM 0.5 MG TABLET PO ×3 (13:42→20:13)
--- NOTE | 2024-10-23 13:47 | P.HP_ITS ---
History of Present Illness History of Present Illness Date Patient Seen: 10/23/24 Chief complaint: COPD/Divertic. Narrative: Chief complaint: Left flank pain and tenesmus fevers chills dehydration secondary to sigmoid diverticulitis/ shortness for breath worsening cough productive of yellow sputum and pleuritic chest pain secondary to pneumonia with COPD exacerbation History of present illness: 63-year-old gentleman history of oxygen-dependent COPD normally uses 2 L nasal cannula 24 hours 3 days ago started developing increasing pain with inspiration right upper chest area and then 2 days ago started developing some left flank pain and tenesmus. Patient noticed that felt dehydrated soaking the bed clothes and sheets. Patient called EMS which brought him to the emergency room. The emergency department findings were significant for: Diaphoretic alert but tachypneic elderly gentleman pulse 102 respirations 18 White blood count [id number] remainder of the hemogram and chemistries otherwise unremarkable Streaky right upper lobe opacity on chest x-ray generalized rarified lung parenchyma with depressed diaphragms Acute sigmoid diverticulitis on CT of the abdomen without fluid or free air Review of systems: No loss of consciousness headache diplopia and blurred vision No nausea or vomiting No paresthesia paresis Physical exam: Chronically ill elderly male alert and oriented HEENT unremarkable No thyromegaly no JVD Heart rhythm regular heart sounds distant Lung sounds distant wheezes present at end inspiration Abdomen nondistended left lower quadrant tenderness with deep palpation No focal neurologic deficits Assessment and plan: Right upper lobe pneumonia with exacerbation of COPD Was initiated on ceftriaxone azithromycin in the emergency department however with diverticulitis and possible exacerbation switched to Zosyn Moderate dose steroids and bronchodilators Sputum for Gram stain and culture Respiratory viral screening negative Recurrent sigmoid diverticulitis Blood cultures and Zosyn as mentioned above Clear liquid diet today Low residual diet as pain and symptoms improve DVT prophylaxis: SCDs only no pharmacologic due to diverticulitis and risk of bleeding Code status: Full code I spent 55 minutes in evaluation of this patient consulting with other physicians direct patient contact and reviewing studies and interpretations FOR[facility] Medical History Lung nodule seen on imaging study History of tobacco abuse Fatigue Ventricular tachycardia (paroxysmal) Anemia Palpitations GERD with stricture HTN (hypertension) Insomnia (~2015) Hyperlipidemia (~2015) Anxiety (~2015) COPD (chronic obstructive pulmonary disease) (~2013) Asthma (Unknown) TIA (transient ischemic attack) (05/2014) Hematuria (~2014) Surgical History No pertinent past surgical history Family History Mother Age: 86 Hypertension Sister Age: 69 Cancer Social History household members: none Smoking Status: Current every day smoker Tobacco: How many years used: 47 quit status: considering quitting second hand exposure: No alcohol intake: former substance use type: does not use Meds Home Medications and Allergies Home Medications Medication Instructions Recorded Confirmed Type ascorbate calcium (vitamin C) 500 500 mg PO DAILY 08/06/23 10/23/24 History mg tablet ferrous gluconate 324 mg (38 mg 324 mg PO DAILY #90 tabs 03/28/24 10/23/24 Rx iron) tablet aluminum-mag hydroxide-simethicone See Rx Instructions .Route 05/14/24 10/23/24 History 400 mg-400 mg-40 mg/5 mL oral susp .COMPLEX PRN heartburn/gas multivitamin with minerals-folic 1 tab PO DAILY 05/14/24 10/23/24 History acid 0.4 mg tablet nystatin 100,000 unit/mL oral 5 ml PO QID PRN thrush 05/14/24 10/23/24 History suspension benzonatate 100 mg capsule 100 mg PO BID-TID PRN Cough #270 05/19/24 10/23/24 Rx caps Disabled Parking Permint #1 ea 07/01/24 10/23/24 Rx mometasone-formoterol HFA 200 2 puff PO BID #13 grams 07/22/24 10/23/24 Rx mcg-5 mcg/actuation aerosol inhaler (Dulera) cetirizine 10 mg tablet 10 mg PO BEDTIME allergy/asthma 08/25/24 10/23/24 History clonazepam 0.5 mg tablet 0.5 mg PO TID #90 tabs 08/25/24 10/23/24 Rx guaifenesin 100 mg/5 mL oral liquid 200 mg PO Q4H PRN cough 08/25/24 10/23/24 History mecobalamin (vitamin B12) 1,000 1,000 mcg PO DAILY 08/25/24 10/23/24 History mcg chewable tablet nitroglycerin 0.3 mg sublingual 0.3 mg sublingual Q5-15M PRN chest 08/25/24 10/23/24 Rx tablet pain #20 tabs simvastatin 20 mg tablet 20 mg PO QPM #90 tabs 08/25/24 10/23/24 Rx albuterol sulfate 2.5 mg/3 mL 2.5 mg (3 mL) inhalation QID PRN 09/09/24 10/23/24 Rx (0.083 %) solution for nebulization shortness of breath or wheezing #180 mL albuterol sulfate 90 mcg/actuation 1 - 2 puff PO Q4H PRN for wheezing 09/09/24 10/23/24 Rx aerosol inhaler (Ventolin HFA) #54 grams ipratropium bromide 0.02 % 2.5 ml inhalation QID PRN 09/09/24 10/23/24 Rx solution for inhalation shortness of breath or wheezing #150 mL ondansetron 4 mg disintegrating 4 mg PO Q6-8H PRN nausea and 09/26/24 10/23/24 Rx tablet vomiting #30 tabs prednisone 20 mg tablet 40 mg (2 x 20 mg) PO DAILY #30 tabs 09/26/24 10/23/24 Rx montelukast 10 mg tablet 10 mg PO BEDTIME #90 tabs 10/11/24 10/23/24 Rx Allergies Allergy/AdvReac Type Severity Reaction Status Date / Time cinnamon [CINNAMON] Allergy Severe RESP Verified 09/30/24 14:57 PROBLEMS AND SWELLING Sulfa (Sulfonamide Allergy Severe anaphylacti Verified 09/30/24 14:57 Antibiotics) c [SULFA (SULFONAMIDE ANTIBIOTICS)] fluticasone [FLUTICASONE] Allergy Intermediate FEELS Verified 09/30/24 14:57 LIKE FIRE IN THE LUNGS trimethoprim [TRIMETHOPRIM] Allergy Unknown Patient Verified 09/30/24 14:57 can't remember dextromethorphan AdvReac Severe Difficulty Verified 09/30/24 14:57 Breathing fentanyl AdvReac Severe Difficulty Verified 09/30/24 14:57 Breathing codeine [CODEINE] AdvReac Intermediate violent Verified 09/30/24 14:57 doxycycline [DOXYCYCLINE] AdvReac Mild N/V Verified 09/30/24 14:57 Exam Vital Signs (past 8 hours): - 10/23/24 07:19 10/23/24 07:22 10/23/24 07:30 Temperature 98.6 F Pulse Rate 126 H 125 H 119 H Respiratory Rate 59 H 22 39 H Blood Pressure 133/93 H Pulse Oximetry 95 95 93 Oxygen Delivery Method Nasal Cannula Nasal Cannula Oxygen Flow Rate 2 2 Fraction of Inspired Oxygen 10/23/24 07:31 10/23/24 07:31 10/23/24 07:32 Temperature Pulse Rate 119 H 122 H Respiratory Rate 28 H 22 Blood Pressure 170/76 H Pulse Oximetry 94 92 Oxygen Delivery Method Nasal Cannula Oxygen Flow Rate 2 Fraction of Inspired Oxygen 10/23/24 08:06 10/23/24 08:30 10/23/24 09:00 Temperature Pulse Rate 122 H 117 H 112 H Respiratory Rate 23 22 29 H Blood Pressure Pulse Oximetry 91 93 93 Oxygen Delivery Method Nasal Cannula Oxygen Flow Rate 2 Fraction of Inspired Oxygen 10/23/24 09:30 10/23/24 10:00 10/23/24 10:30 Temperature Pulse Rate 120 H 114 H 108 H Respiratory Rate 26 H 21 28 H Blood Pressure Pulse Oximetry 93 92 92 Oxygen Delivery Method Nasal Cannula Oxygen Flow Rate 2 Fraction of Inspired Oxygen 10/23/24 11:00 10/23/24 11:30 10/23/24 13:28 Temperature Pulse Rate 108 H 107 H 102 H Respiratory Rate 28 H 37 H 18 Blood Pressure Pulse Oximetry 93 94 93 Oxygen Delivery Method Nasal Cannula Nasal Cannula Oxygen Flow Rate 2 2 Fraction of Inspired Oxygen 28 Fraction of Inspired Oxygen 28 SaO2/FiO2 Ratio 332 Oxygen Delivery Method Nasal Cannula Oxygen Flow Rate 2 Objective Labs 10/23/24 11:25 10/23/24 11:25 Labs: Laboratory Results - last 24 hr 10/23/24 10/23/24 10/23/24 07:23 07:40 09:38 WBC 16.1 H RBC 4.41 L Hgb 12.0 L Hct 38.2 L MCV 86.7 MCH 27.3 MCHC 31.5 RDW 17.2 H Plt Count 244 Neut % (Auto) 77.4 H Lymph % (Auto) 12.4 L [place] % (Auto) 9.4 Eos % (Auto) 0.4 L Baso % (Auto) 0.4 Neut # (Auto) 91640 H Lymph # (Auto) 2000 [place] # (Auto) 1500 H Eos # (Auto) 100 Baso # (Auto) 100 PT 11.5 INR 1.0 Sodium 143 Potassium 4.5 Chloride 96 L Carbon Dioxide 38 H BUN 20 Creatinine 0.99 Estimated GFR > 60 BUN/Creatinine Ratio 20.2 Glucose 114 H Lactate 2.9 H 1.2 Calcium 10.2 Total Bilirubin 0.6 AST 41 ALT 22 Alkaline Phosphatase 51 Troponin I < 0.012 NT-Pro-B Natriuret Pep 144 H Total Protein 8.3 H Albumin 4.4 Globulin 3.9 Albumin/Globulin Ratio 1.1 Procalcitonin 0.110 SARS-CoV-2 (PCR) Negative Influenza A (RT-PCR) Flu a negative Influenza B (RT-PCR) Flu b negative RSV (PCR) Negative 10/23/24 11:25 WBC 19.1 H RBC 3.78 L Hgb 10.1 L Hct 32.5 L MCV 86.0 MCH 26.9 MCHC 31.2 RDW 16.6 H Plt Count 190 Neut % (Auto) 93.4 H Lymph % (Auto) 2.3 L [place] % (Auto) 4.0 Eos % (Auto) 0.1 L Baso % (Auto) 0.2 Neut # (Auto) 54275 H Lymph # (Auto) 400 L [place] # (Auto) 800 Eos # (Auto) 0 Baso # (Auto) 0 PT INR Sodium 136 L Potassium 4.4 Chloride 98 Carbon Dioxide 35 H BUN 18 Creatinine 0.86 Estimated GFR > 60 BUN/Creatinine Ratio 20.9 Glucose 167 H Lactate Calcium 9.1 Total Bilirubin AST ALT Alkaline Phosphatase Troponin I NT-Pro-B Natriuret Pep Total Protein Albumin Globulin Albumin/Globulin Ratio Procalcitonin SARS-CoV-2 (PCR) Influenza A (RT-PCR) Influenza B (RT-PCR) RSV (PCR) Assessment & Plan Time-Based Coding :: [TOTAL MINUTES] spent with patient and on the chart (including review of chart, obtaining history, exam, reviewing outside data, placing orders, documenting exam and treatment plan, and counseling patient) on [DATE].
[2024-10-23] MEDS: LACTULOSE 20 GM/30 ML SOLUTION PO ×2 (16:45→20:13)
[2024-10-23] MEDS: HYDROCODONE/ACET 5/325 TABLET 2 TAB PO (19:27)
--- NOTE | 2024-10-23 19:28 | PC.NURSE ---
patient states, I am willing to give the [place] a shot, but its the morphine and diladid that really does the trick. Patient states, [place] makes him feel bubbely in the brain but is not allergic to it.
[2024-10-23] MEDS: BUDESONIDE 0.5 MG/2 ML NEB INH (19:40)
[2024-10-23] MEDS: ATORVASTATIN 20 MG TABLET 10 MG PO (20:13)
[2024-10-23] MEDS: LORATADINE 10 MG TABLET PO (20:13)
[2024-10-23] MEDS: MONTELUKAST 10 MG TABLET PO (20:13)
[2024-10-23] MEDS: SODIUM CHLORIDE 0.9% FLUSH 10 ML IV (20:13)
[2024-10-24] VITALS (11 sets, daily range): BP systolic 122–144; BP diastolic 59–72; PULSE 82–105; RESP 16–26; TEMP 36.2–36.6; O2SAT 93–98
[2024-10-24] MEDS: ALBUTEROL 2.5 MG/3 ML NEB (ADULT) INH ×7 (04:12→23:41)
[2024-10-24] MEDS: HYDROCODONE/ACET 5/325 TABLET 2 TAB PO (04:37)
[2024-10-24] MEDS: BUDESONIDE 0.5 MG/2 ML NEB INH ×2 (08:23→19:42)
[2024-10-24] MEDS: clonazePAM 0.5 MG TABLET PO ×3 (08:38→21:26)
[2024-10-24] MEDS: MULTIVITAMIN 1 TABLET 1 TAB PO (08:38)
[2024-10-24] MEDS: predniSONE 20 MG TABLET 40 MG PO (08:38)
[2024-10-24] MEDS: LACTULOSE 20 GM/30 ML SOLUTION PO ×3 (08:38→21:26)
[2024-10-24] MEDS: CYANOCOBALAMIN (VITAMIN B-12) 100 MCG TABLET 1000 MCG PO (08:39)
[2024-10-24] MEDS: SODIUM CHLORIDE 0.9% FLUSH 10 ML IV ×2 (08:40→21:53)
[2024-10-24] MEDS: BENZONATATE 100 MG CAPSULE PO (08:47)
[2024-10-24] MEDS: FERROUS SULFATE 325 MG TABLET PO (09:07)
[2024-10-24] MEDS: ASCORBIC ACID 500 MG TABLET PO (09:07)
[2024-10-24] MEDS: ENOXAPARIN 40 MG/0.4 ML SYRINGE SUBCUT (09:07)
[2024-10-24 11:08] LABS: Add Manual Diff / Slide Review NO; Basophils Absolute Auto 0 /uL (0-100); Basophils Percent Auto 0.1 % (0-2); Eosinophils Absolute Auto 0 /uL (0-450); Eosinophils Percent Auto 0.2 % (2-4); Hemoglobin 9.3 g/dL (13.5-17.5); Lymphocytes Absolute Auto 700 /uL (1100-4500); Mean Corpuscular HGB Conc 31.1 % (30-36); Mean Corpuscular Volume 86.6 fL (80-100); Monocytes Absolute Auto 800 /uL (0-900); Monocytes Percent Auto 5.1 % (3-14); Neutrophils Absolute Auto 13500 /uL (1500-7000); Neutrophils Percent Auto 89.6 % (50-75); Platelet Count 187 X10^3/uL (150-400); Red Blood Cell Count 3.46 X10^6/uL (4.5-5.9); Red Cell Distribution Width 16.6 % (11.6-14.8)
[2024-10-24 11:25] LABS: BUN Creatinine Ratio 23.1 (6-22); Blood Urea Nitrogen 18 mg/dL (9-20); Calcium 8.5 mg/dL (8.4-10.2); Carbon Dioxide 36 mmol/L (22-32); Chloride 98 mmol/L (98-107); Estimated Glomerular Filt Rate > 60 mL/min (>60); Glucose 219 mg/dL (80-110); HEMOLYSIS < 15 (0-50); Potassium 3.9 mmol/L (3.4-5.1); Sodium 139 mmol/L (137-145)
[2024-10-24] MEDS: MAG HYDROX/ALUM/SIMETH 30 ML UDC PO (13:26)
--- NOTE | 2024-10-24 13:38 | PM.PN.1 ---
Subjective Subjective Interval history: Patient feeling better today, still with mild abdominal pain, tolerating clears this morning will advance diet later today. Exam Vital Signs (past 8 hours): - 10/24/24 07:00 10/24/24 08:26 10/24/24 12:00 Temperature 97.8 F Pulse Rate 86 90 Respiratory Rate 16 20 Blood Pressure 128/72 Pulse Oximetry 93 96 Oxygen Delivery Method Nasal Cannula Nasal Cannula Oxygen Flow Rate 2 3 Fraction of Inspired Oxygen 28 10/24/24 12:06 Temperature Pulse Rate 89 Respiratory Rate 18 Blood Pressure Pulse Oximetry 97 Oxygen Delivery Method Nasal Cannula Oxygen Flow Rate 2 Fraction of Inspired Oxygen 28 Fraction of Inspired Oxygen 28 SaO2/FiO2 Ratio 346 Oxygen Delivery Method Nasal Cannula Oxygen Flow Rate 2 Narrative Exam Narrative: GEN: no distress, chronically ill appearing HEENT: moist mucous membranes, PERRL NECK: trachea midline, no JVD PULM: mild bilateral wheeze, speaking in near full sentences CV: regular rate and rhythm, no murmurs ABD: soft, nontender, nondistended, no organomegaly EXT: warm and well perfused with no edema NEURO: awake, alert, oriented, no focal deficits Objective Labs 10/24/24 10:50 10/24/24 10:50 Labs: Laboratory Results - last 24 hr 10/24/24 10:50 WBC 15.0 H RBC 3.46 L Hgb 9.3 L Hct 30.0 L MCV 86.6 MCH 27.0 MCHC 31.1 RDW 16.6 H Plt Count 187 Neut % (Auto) 89.6 H Lymph % (Auto) 5.0 L [place] % (Auto) 5.1 Eos % (Auto) 0.2 L Baso % (Auto) 0.1 Neut # (Auto) 52269 H Lymph # (Auto) 700 L [place] # (Auto) 800 Eos # (Auto) 0 Baso # (Auto) 0 Sodium 139 Potassium 3.9 Chloride 98 Carbon Dioxide 36 H BUN 18 Creatinine 0.78 Estimated GFR > 60 BUN/Creatinine Ratio 23.1 H Glucose 219 H Calcium 8.5 PFSH Medical History Lung nodule seen on imaging study History of tobacco abuse Fatigue Ventricular tachycardia (paroxysmal) Anemia Palpitations GERD with stricture HTN (hypertension) Insomnia (~2015) Hyperlipidemia (~2015) Anxiety (~2016) COPD (chronic obstructive pulmonary disease) (~2013) Asthma (Unknown) TIA (transient ischemic attack) (05/2014) Hematuria (~2014) Surgical History No pertinent past surgical history Family History Mother Age: 86 Hypertension Sister Age: 69 Cancer Social History household members: none Smoking Status: Current every day smoker Tobacco: How many years used: 47 quit status: considering quitting second hand exposure: No alcohol intake: former substance use type: does not use Assessment & Plan Assessment & Plan narrative: 1. Acute Sigmoid Diverticulitis, present on admission and active. - given ceftriaxone and azithro in the ER for PNA. - change to augmentin given improvement today for PNA and diverticulitis coverage - possible relation to chronic constipation, he feels much improved after lactulose today. - Leukocytosis is improving today with WBC 19 to 15. 2. Chronic constipation, present on admission and active. - continue lactulose 3. COPD with exacerbation, and RUL bacterial PNA, present on admission and active. - continue prednisone 40 mg daily - augmentin started as noted above. - continue RT treatments and nebulizers. - PT/OT early consult. 4. Chronic hypoxic respiratory failure, present on admission and active. 5. Anemia, present on admission and active. 6. HLD, present on admission and active. PLAN: - continue antibiotics and steroids as above - start PT/OT - monitor leukocytosis with CBC JAYMIE: 1-2 more days. DVT / GI prophylaxis - HSQ Time-Based Coding :: [TOTAL MINUTES] spent with patient and on the chart (including review of chart, obtaining history, exam, reviewing outside data, placing orders, documenting exam and treatment plan, and counseling patient) on [DATE].
--- NOTE | 2024-10-24 14:11 | OT.IPNOTE ---
Attempted to see pt for OT services x2. Pt initially getting breathing treatment. Upon second attempt pt needing encouragement to participate but then stated that he just didn't feel like he could do it today. Will follow up tomorrow.
--- NOTE | 2024-10-24 14:13 | PT-IP ANOTE ---
PT order received and PT checks in with pt who states he cannot do PT because he is bloated and not up to it. Con't PT efforts next date.
--- NOTE | 2024-10-24 16:03 | CM.DANOTE ---
B DCP Assessment note pt is a 63yo M readmit here under INPT with recurrent diverticulitis/COPD exacerbation. PCP Saqib Oliva Payer Medicare and medicaid ASSEMBLER INSULATOR reviewed EMR per chart, pt lives alone in [place], has JENNIFER CGs with [facility] (Thursday afternoon) and [facility] (Thu and 9am-3pm).. Pt has [employer] (p [phone], [email or web address]) and [employer]ENN[employer] October P [phone]. local family support as needed/able. DPOA=sister Antonina ([phone]). Gets oxygen through [employer]. 2lrs at baseline. [facility], can resume with pt. would need new referral after . if pt dcs before , just need f2f/resumption orders/dc summary. per PT/OT, pt refused today and will attempt tomorrow. ASSEMBLER INSULATOR lvm with [employer] (p [phone]). no response as of 1599. CM team will alert TCM at dc. ASSEMBLER INSULATOR attempted to meet with pt x2, with other staff during attempted DCP assessmetns. will meet with tomorrow. P: anticipate return home with [facility] CGs and Julia . will continue to follow closely for DCP coordination GILDA Aguilar Discharge Planning/Care Management CM Discharge Assessment Start: 10/24/24 16:01 Freq: Status: Active Protocol: Document 10/24/24 16:01 (Rec: 10/24/24 16:03 Desktop) Discharge Planning Assessment Assigned Title I Director GILDA Murillo DPOA/Assigned Designee Name sister Sarkar Contact Information [phone] Advance Directives? No Advance Directives on File No History Provided By Patient,Medical Record Prior Living Arrangements House Household Members none Type of transporation used prior to Relies on Others admit Is patient alert and oriented? Yes Needs Assistance With Home Chores / Shopping DME Already Rented / Owned Wheelchair,Oxygen Comment His oxygen is provided with [employer]. Comment [employer] (p [phone], [email or web address]) and [employer] October P [phone] Patient/Family Preference Home with Home Health Comment Julia ABREU Comment Patient has caregivers through [facility] that come in, and he also has family in the area. Discharge Plan Home with Home Health Transportation Arrangement Family Referrals Initiated Home Health Additional Comment Resumption of Julia ABREU If patient plan is home with home health No: not needed, Resume Orders : Has signed face to face form been completed? Whiteboard Updated in Patient Room with No name and ext. # of Title I Director Review Status In Process Please Provide Date Initial DC 10/24/24 Assessment Was Performed Next Review Type Continued Stay Review
[2024-10-24] MEDS: AMOXICILLIN/CLAV 875/125 MG 1 TAB PO (21:25)
[2024-10-24] MEDS: LORATADINE 10 MG TABLET PO (21:26)
[2024-10-24] MEDS: ATORVASTATIN 20 MG TABLET 10 MG PO (21:26)
[2024-10-24] MEDS: MONTELUKAST 10 MG TABLET PO (21:26)
[2024-10-25] VITALS (11 sets, daily range): BP systolic 110–136; BP diastolic 60–69; PULSE 63–109; RESP 16–22; TEMP 36.3–36.8; O2SAT 94–98
[2024-10-25] MEDS: ALBUTEROL 2.5 MG/3 ML NEB (ADULT) INH ×6 (02:56→23:16)
[2024-10-25] MEDS: IPRATROPIUM 0.5 MG/2.5 ML NEB INH (02:56)
[2024-10-25] MEDS: BUDESONIDE 0.5 MG/2 ML NEB INH ×2 (06:54→18:44)
--- NOTE | 2024-10-25 09:35 | OT.IP.EVAL ---
Current Diagnoses Diverticulitis of large intestine without perforation or abscess without bleeding (10/23/24) Past Medical History (Last Reviewed 09/30/24 @ 15:45 by Saqib Oliva DO) Anemia Anxiety (~2015) Asthma (Unknown) COPD (chronic obstructive pulmonary disease) (~2013) Fatigue GERD with stricture Hematuria (~2014) History of tobacco abuse HTN (hypertension) Hyperlipidemia (~2015) Insomnia (~2015) Lung nodule seen on imaging study Palpitations TIA (transient ischemic attack) (05/2014) Ventricular tachycardia (paroxysmal) Surgical History (Last Reviewed 09/30/24 @ 15:45 by Saqib Oliva DO) No pertinent past surgical history Occupational Therapy Inpatient Evaluation/Re-Eval M1 PT/OT-IP Prior Functional Status Start: 10/25/24 09:59 Freq: NEEDED Status: Active Protocol: Document 10/25/24 09:59 [facility] (Rec: 10/25/24 10:14 [facility] Desktop) Medical Review Prior Functional Status Communication I Mobility and Gait Pt does not walk and just transfers from his recliner <> powerchair<> to toilet or BSC. Activities of Daily Living and IADL's Pt has caregivers 5 times a week for 4.5 - 6 hours to assist with IADL and sponge bathing needs. Prior Functional Level (Other details) Pt gets a sponge bath while seated in his wc from his caregivers/bath aid. Social History Household Members none Living Arrangements House Number of Stairs To Enter/Railing? NO steps to enter. Home Environment Standard Height Toilet,Walk in Shower Home Equipment Power Wheelchair/Scooter, Bedside Commode,Shower Seat without Backrest,Hand Held Shower,Grab Bars Near Toilet, Grab Bars In Shower M2 OT-IP Current Condition Start: 10/25/24 09:59 Freq: Status: Active Protocol: Document 10/25/24 09:59 [facility] (Rec: 10/25/24 10:14 [facility] Desktop) Occupational Therapy Current Condition Current Condition Evaluation Date 10/25/24 Treatment Diagnosis COPD exacerbation, PNA Diagnosis Onset Date 10/23/24 M3 OT- IP Subjective and Pain Start: 10/25/24 09:59 Freq: Status: Active Protocol: Document 10/25/24 09:59 [facility] (Rec: 10/25/24 10:14 [facility] Desktop) OT- Subjective Occupational Therapy Visit Type Type Initial Evaluation Visit Start Time 09:05 Visit Stop Time 09:35 Occupational Therapy Visit Comments Patient Comments Pt needing lots of encouragement and rest breaks and agreed to do OT eval. Patient/Caregiver Goals To go home when medically stable and have home health. OT Pain Assessment Pain When Pain Assessed At Rest Pain Present Pain Present Denied Pain M4 OT- IP ADL's Start: 10/25/24 09:59 Freq: Status: Active Protocol: Document 10/25/24 09:59 [facility] (Rec: 10/25/24 10:14 [facility] Desktop) OT [id number] General Evaluation Self-Feeding Ability Independent OT ADL-Grooming Comments OT Grooming Comments Pt states too tired to so grooming needs and states to do later. OT ADL-Oral Care Comments Oral Care Comments Pt too tired to perform and states to do later. OT ADL-Dressing General Eval Upper Body Dressing Ability Minimal Assistance Comments OT Dressing Comments Assist to get gown on. Pt wanting to wear it like a robe . Gown not closing all the way and given a pillow case versus sheet to cover his legs as pt complaining of being hot. Fan obtained for pt. OT ADL-Toileting Comments OT Toileting Comments Not performed. OT ADL-Bathing Comments OT Bathing Comments Best to continue sponging off. M5 OT- IP IADL's Start: 10/25/24 09:59 Freq: Status: Active Protocol: Document 10/25/24 09:59 [facility] (Rec: 10/25/24 10:14 [facility] Desktop) OT-Instrumental Activities of Daily Living Home Safety Awareness Awareness of Need for Assistance at Home Good Awareness Medication Management Medication Management Caregiver Provides Supervision Money Management Money Management Caregiver Provides Supervision Meal Preparation Meal Preparation Caregiver Provides Assist Focused Factory Manager Focused Factory Manager Caregiver Provides Assist M6 OT- IP Functional Cognition Start: 10/25/24 09:59 Freq: Status: Active Protocol: Document 10/25/24 09:59 [facility] (Rec: 10/25/24 10:14 [facility] Desktop) Cognitive Factors Limiting Selfcare Function Cognitive Ability Level of Alertness Alert Patient Orientation Name,Place,Situation Attention Span Ability Capable of Focused Attention Ability to Follow Commands Able to Follow One Step Commands Cognitive Comments Cognitive Assessment Comments Pt has decreased initiation in addition to decreased activity tolerance and complaining of not feeling well. Pt is insistent that he does not feel ready to go home yet. Pt also wanting home health PT, nursing and bath aid but no OT- as have a bad experience with [facility]. OT- Vision and Hearing OT- Hearing Assessment OT- Hearing Assessment WFL OT- Vision Assessment Visual Acuity Glasses All The Time Visual Attentiveness WFL Occular Pursuits WFL M7 OT- IP Mobility and Balance Start: 10/25/24 09:59 Freq: Status: Active Protocol: Document 10/25/24 09:59 [facility] (Rec: 10/25/24 10:14 [facility] Desktop) OT- Bed Mobility Assessment Rolling Level of Assistance Standby Assistance Supine to Sit Supine to Sit Assist Standby Assistance Sit to Supine Sit to Supine Assist Standby Assistance Scooting Scooting to Edge of Bed Standby Assistance Scooting Up and Down in Bed Standby Assistance OT-Transfer Assessment Transfers Transfer Ability Standby Assistance,Contact Guard Assistance Technique Transfer Destination Bed,Chair Devices Transfer Assistive Devices Gait Belt Comments Mobility Comments Pt able to come to stand from the bed with close SBA/CGA for transfer to the recliner directly in front of him with good safety. Pt on 2L of O2 and from 96-93% and hr 102-119 . Pt acknowledge to call for assist as needed. Call light in reach of pt. OT- Balance Assessment Sitting Balance and Reactions Static Sitting Balance Ability Good Dynamic Sitting Balance Ability Good Standing Balance and Reactions Static Standing Balance Ability Fair M8 OT- IP Objective Assessments Start: 10/25/24 09:59 Freq: Status: Active Protocol: Document 10/25/24 09:59 [facility] (Rec: 10/25/24 10:14 [facility] Desktop) OT Gross Range of Motion Upper Extremity Range of Motion Assessment Within Functional Limits OT Strength Upper Extremity Strength Assessment Within Functional Limits Comments Strength Comments grossly 4/5 M9 OT- IP Assessment and Plan Start: 10/25/24 09:59 Freq: Status: Active Protocol: Document 10/25/24 09:59 [facility] (Rec: 10/25/24 10:14 [facility] Desktop) OT Summary Assessment and Plan Potential Rehabilitation Potential Good Analytic Complexity at Evaluation Moderate Summary OT Impairments Strength,Balance,Functional Mobility,Dressing,Toileting, Toilet Transfers,Shower Transfers,Activity Tolerance Progress Towards Goals Slow Progress due to Medical Issues,Slow Progress due to Activity Tolerance Assessment Summary Pt MOD complexity and main barriers are decreased initiation, strength, endurance, and activity tolerance. Pt to go home with caregiver assist 5x/week and have home health PT, nurse, and bath aid. Goals Self-Feeding Goal Independent Grooming Goal Independent Dressing Goal Independent Toileting Goal Independent Bathing Goal Minimal Assistance Toilet Transfer Goal Independent Shower Transfer Goal Independent Days to Meet Goals 5 Frequency of Treatment Other frequency 5x/week Treatment Plan OT Treatment Plan ADL Training,Functional Mobility,Patient/Family Education,Discharge Planning Discharge Recommendations OT Discharge Recommendations Home with Assistance,Home Health Transportation Needs at Discharge Private Vehicle
[2024-10-25] MEDS: clonazePAM 0.5 MG TABLET PO ×2 (09:41→20:44)
[2024-10-25] MEDS: MULTIVITAMIN 1 TABLET 1 TAB PO (09:41)
[2024-10-25] MEDS: predniSONE 20 MG TABLET 40 MG PO (09:41)
[2024-10-25] MEDS: ACETAMINOPHEN 325 MG TABLET 650 MG PO (09:41)
[2024-10-25] MEDS: ASCORBIC ACID 500 MG TABLET PO (09:41)
[2024-10-25] MEDS: FERROUS SULFATE 325 MG TABLET PO (09:41)
[2024-10-25] MEDS: ENOXAPARIN 40 MG/0.4 ML SYRINGE SUBCUT (09:42)
[2024-10-25] MEDS: BENZONATATE 100 MG CAPSULE PO ×2 (09:42→21:10)
[2024-10-25] MEDS: AMOXICILLIN/CLAV 875/125 MG 1 TAB PO ×2 (09:42→20:44)
[2024-10-25] MEDS: SODIUM CHLORIDE 0.9% FLUSH 10 ML IV ×2 (09:45→20:47)
[2024-10-25] MEDS: MAG HYDROX/ALUM/SIMETH 30 ML UDC PO (10:31)
--- NOTE | 2024-10-25 11:05 | PT.IIE ---
Current Diagnoses Diverticulitis of large intestine without perforation or abscess without bleeding (10/23/24) Surgical History (Last Reviewed 09/30/24 @ 15:45 by Saqib Oliva DO) No pertinent past surgical history Medical History (Last Reviewed 09/30/24 @ 15:45 by Saqib Oliva DO) Anemia Anxiety (~2015) Asthma (Unknown) COPD (chronic obstructive pulmonary disease) (~2013) Fatigue GERD with stricture Hematuria (~2014) History of tobacco abuse HTN (hypertension) Hyperlipidemia (~2015) Insomnia (~2015) Lung nodule seen on imaging study Palpitations TIA (transient ischemic attack) (05/2014) Ventricular tachycardia (paroxysmal) Physical Therapy Inpatient Evaluation/Re-Eval M1 PT/OT-IP Prior Functional Status Start: 10/25/24 12:57 Freq: NEEDED Status: Active Protocol: Document 10/25/24 11:05 [facility] (Rec: 10/25/24 13:14 [facility] [id number]) Medical Review Prior Functional Status Medical History Reviewed Yes Communication able to make needs known Mobility and Gait pt stated that he was modified independent with transfers without AD but step transfer recliner<>power w/c. pt is non-ambulatory Activities of Daily Living and IADL's per OT note: Pt has caregivers 5 times a week for 4.5 - 6 hours to assist with IADL and sponge bathing needs. Pt gets a sponge bath while seated in his wc from his caregivers/ bathaid. Social History Household Members none Living Arrangements House Number of Floors (Floors) One Floor Number of Stairs To Enter/Railing? no steps to enter Home Environment Standard Height Toilet,Walk in Shower Home Equipment Power Wheelchair/Scooter, Bedside Commode,Shower Seat without Backrest,Hand Held Shower,Grab Bars Near Toilet, Grab Bars In Shower Additional Social History Comment pt has a caregiver that comes in M-F for ~ 5 hours daily and also has a bath aide that comes in once a week to assist with shower/bathing needs pt has a transport w/c pt sleeps on his recliner chair M2 PT-IP Current Condition Start: 10/25/24 12:57 Freq: NEEDED Status: Active Protocol: Document 10/25/24 11:05 [facility] (Rec: 10/25/24 13:14 AB [id number]) Physical Therapy Current Condition Current Condition Evaluation Date 10/25/24 Treatment Diagnosis COPD exacerbation; diverticulitis; generalized weakness Onset Date 10/23/24 M3 PT-IP Subjective Start: 10/25/24 12:57 Freq: NEEDED Status: Active Protocol: Document 10/25/24 11:05 [facility] (Rec: 10/25/24 13:14 AB [id number]) Subjective Physical Therapy Visit Type Type Initial Evaluation Visit Start Time 11:05 Visit Stop Time 11:25 Number of [place] [employer]ARDER Visits 0 Physical Therapy Visit Comments Patient Comments agreeable to do PT M4 PT-IP Mobility and Gait Start: 10/25/24 12:57 Freq: NEEDED Status: Active Protocol: Document 10/25/24 11:05 [facility] (Rec: 10/25/24 13:14 AB [id number]) PT-Transfer Assessment Sit to and From Stand Sit to and from Stand Standby Assistance,1 Person Assistance,2 Person Assistance Equipment Transfer Assistive Device None,Gait Belt Orthotic/Prosthetic Devices or Brace: No Transfers Transfer Destination Bed,Chair Transfer Technique Stand Step Pivot Transfer Ability Level of Assist Standby Assistance,1 Person Assistance,Use of Upper Extremities Comments Mobility Comments pt sitting up on the chair and agreed to do PT. obtained PLOF and home set up. pt completed sit to stand and step pivot transfer without AD chair<>bed SBA. positioned pt in front of transfer surface and pt reaches and step pivots to transfer. pt needing rest breaks in between activities with c/o feeling weak. O2 sat stable 93-95% with activity. DE: 100-106. positioned pt back on chair. call light and table placed within reach. pt is at PLOF and informed pt that he does not need any PT at this time. PT-Balance Assessment Sitting Balance and Reactions Static Sitting Balance Ability Normal Dynamic Sitting Balance Ability Good Standing Balance and Reactions Static Standing Balance Ability Fair Dynamic Standing Balance Ability Fair M5 PT-IP Objective Assessments Start: 10/25/24 12:57 Freq: NEEDED Status: Active Protocol: Document 10/25/24 11:05 [facility] (Rec: 10/25/24 13:14 AB [id number]) Orientation Orientation/Cognition Level of Alertness Alert Orientation Name,Place,Situation Language Function Ability No Deficits Noted Safety Awareness Decreased Safety Awareness Memory Description No Deficits Noted Gross Range of Motion Lower Extremity ROM Assessment Within Functional Limits Strength Lower Extremity Strength Assessment Within Functional Limits Muscle Tone Muscle Tone WNL Yes M6 PT-IP Treatment Start: 10/25/24 12:57 Freq: NEEDED Status: Active Protocol: Document 10/25/24 11:05 [facility] (Rec: 10/25/24 13:14 AB [id number]) Physical Therapy Treatment Education Education Provided Safety M7 PT-IP Assessment and Plan Start: 10/25/24 12:57 Freq: NEEDED Status: Active Protocol: Document 10/25/24 11:05 AB (Rec: 10/25/24 13:14 AB [id number]) PT Summary Assessment and Plan Potential Rehabilitation Potential Fair Status of Condition at Evaluation Evolving Summary Impairments ROM,Strength,Balance,Sensation ,Cognition,Transfers,Activity Tolerance Assessment Summary pt is a 63 y/o M who is admitted for COPD exacerbation and diverticulitis. pt has previous hospitalizations due to COPD and diverticulitis. pt was mod I with transfers prior to admission and is non- ambulatory. pt has COPD affecting activity tolerance and mobility. pt currently is at PLOF and SBA provided during step pivot transfer for safety needs. No further PT intervention indicated at this time. Frequency of Treatment Frequency Of Treatment Discharge Treatment Plan Physical Therapy Treatment Plan Transfer Training,Discharge Planning Recommendations To Nursing Amount of Assist Needed Standby Assistance Discharge Recommendations PT Discharge Recommendations Home with Assistance Transportation Needs at Discharge Private Vehicle,Wheelchair/ Cabulance - PT assist 1
[2024-10-25 11:07] LABS: Add Manual Diff / Slide Review NO; Basophils Absolute Auto 0 /uL (0-100); Basophils Percent Auto 0.2 % (0-2); Eosinophils Absolute Auto 100 /uL (0-450); Eosinophils Percent Auto 0.7 % (2-4); Hematocrit 31.9 % (41-53); Hemoglobin 10.2 g/dL (13.5-17.5); Lymphocytes Absolute Auto 1300 /uL (1100-4500); Lymphocytes Percent Auto 12.2 % (25-40); Mean Corpuscular Hemoglobin 27.5 PG (26-34); Mean Corpuscular Volume 85.9 fL (80-100); Monocytes Absolute Auto 1000 /uL (0-900); Monocytes Percent Auto 9.3 % (3-14); Neutrophils Absolute Auto 8100 /uL (1500-7000); Neutrophils Percent Auto 77.6 % (50-75); Platelet Count 211 X10^3/uL (150-400); Red Blood Cell Count 3.71 X10^6/uL (4.5-5.9); Red Cell Distribution Width 16.6 % (11.6-14.8); White Blood Cell Count 10.4 X10^3/uL (4.5-11.0)
[2024-10-25] MEDS: CYANOCOBALAMIN (VITAMIN B-12) 100 MCG TABLET 1000 MCG PO (11:13)
[2024-10-25] MEDS: guaiFENesin Solution 100 MG/5 ML UDC 200 MG PO ×2 (11:13→18:05)
[2024-10-25 11:37] LABS: BUN Creatinine Ratio 25.3 (6-22); Blood Urea Nitrogen 21 mg/dL (9-20); Calcium 8.7 mg/dL (8.4-10.2); Carbon Dioxide 39 mmol/L (22-32); Chloride 98 mmol/L (98-107); Estimated Glomerular Filt Rate > 60 mL/min (>60); Glucose 149 mg/dL (80-110); HEMOLYSIS < 15 (0-50); Potassium 3.8 mmol/L (3.4-5.1); Sodium 139 mmol/L (137-145)
--- NOTE | 2024-10-25 12:09 | CM.DPNOTE ---
DCP note CONTACT PERSON reviewed EMR. Per OT, rec home with HH vs home with assistance. per OT, pt does not wish for HH OT. CONTACT PERSON had lengthy conversation with pt in room. introduced self and role. pt confirms having [facility] 5 days/week for 5-6hrs/day. they help with transport/home care/meal prep/higher ADLs. Sisters/mom help out pt when can. pt in frequent contact with [facility] [employer] Elizabeth (p [phone], [email or web address].[email or web address]) and [facility] October P [phone]. preference is to continue with [facility] for RN/PT/SAMPLE FINISHER and no OT. reports he felt like last time he was discharged home too soon (see prior notes for more). for him, being ready to dc means transporting without O2 dropping to low 90s. (note worthy, per OT eval note, pt worked with OT today, O2 dropped to 93). pt reports he felt too SOB during that eval. he reports he wants to work with therapies but doesn't want to push his body too far but is willing to keep moving to keep improving daily. Hoped I would speak with Elizabeth FARAHS senior care assistant on his behalf regarding his DCP. deny other CM needs/DCP questions at this time. CONTACT PERSON updated provider on pt's input. CONTACT PERSON lvm with [facility] [employer] Elizabeth p [phone],. no response as of 1230. CONTACT PERSON completed f2f/HH order for [facility] resumption. P: anticipate dc return home with [facility] support, family to transport. [facility] to follow for RN/PT/SAMPLE FINISHER. CM team will continue to follow closely GILDA Aguilar
--- NOTE | 2024-10-25 15:47 | P.PN_ITS ---
Subjective Subjective Interval history: Patient feeling better today, still with mild abdominal pain as gas with lactulose but only 1 bowel movement today, tolerating his diet otherwise. Feels dyspnic with minimal exertion. Exam Vital Signs (past 8 hours): - 10/25/24 11:28 10/25/24 12:00 10/25/24 12:55 Temperature 97.8 F Pulse Rate 96 H Respiratory Rate 19 Blood Pressure 129/63 Pulse Oximetry 96 96 Oxygen Delivery Method Nasal Cannula Oxygen Flow Rate 2 2 Fraction of Inspired Oxygen 28 10/25/24 15:26 Temperature Pulse Rate 103 H Respiratory Rate 20 Blood Pressure Pulse Oximetry 96 Oxygen Delivery Method Nasal Cannula Oxygen Flow Rate 2 Fraction of Inspired Oxygen 28 Fraction of Inspired Oxygen 28 SaO2/FiO2 Ratio 342 Oxygen Delivery Method Nasal Cannula Oxygen Flow Rate 2 Narrative Exam Narrative: GEN: no distress, chronically ill appearing HEENT: moist mucous membranes, PERRL NECK: trachea midline, no JVD PULM: mild bilateral wheeze, speaking in near full sentences CV: regular rate and rhythm, no murmurs ABD: soft, nontender, nondistended, no organomegaly EXT: warm and well perfused with no edema NEURO: awake, alert, oriented, no focal deficits Objective Labs 10/25/24 10:53 10/25/24 10:53 Labs: Laboratory Results - last 24 hr 10/25/24 10:53 WBC 10.4 RBC 3.71 L Hgb 10.2 L Hct 31.9 L MCV 85.9 MCH 27.5 MCHC 32.0 RDW 16.6 H Plt Count 211 Neut % (Auto) 77.6 H Lymph % (Auto) 12.2 L [place] % (Auto) 9.3 Eos % (Auto) 0.7 L Baso % (Auto) 0.2 Neut # (Auto) 8100 H Lymph # (Auto) 1300 [place] # (Auto) 1000 H Eos # (Auto) 100 Baso # (Auto) 0 Sodium 139 Potassium 3.8 Chloride 98 Carbon Dioxide 39 H BUN 21 H Creatinine 0.83 Estimated GFR > 60 BUN/Creatinine Ratio 25.3 H Glucose 149 H Calcium 8.7 PFSH Medical History Lung nodule seen on imaging study History of tobacco abuse Fatigue Ventricular tachycardia (paroxysmal) Anemia Palpitations GERD with stricture HTN (hypertension) Insomnia (~2015) Hyperlipidemia (~2015) Anxiety (~2016) COPD (chronic obstructive pulmonary disease) (~2013) Asthma (Unknown) TIA (transient ischemic attack) (05/2014) Hematuria (~2014) Surgical History No pertinent past surgical history Family History Mother Age: 86 Hypertension Sister Age: 69 Cancer Social History household members: none Smoking Status: Current every day smoker Tobacco: How many years used: 47 quit status: considering quitting second hand exposure: No alcohol intake: former substance use type: does not use Assessment & Plan Assessment & Plan narrative: 1. Acute Sigmoid Diverticulitis, present on admission and active. - given ceftriaxone and azithro in the ER for PNA. - changed to augmentin given rapid improvement for PNA and diverticulitis coverage - possible relation to chronic constipation, he feels much improved after lactulose and one bowel movement today. Reports gas pain with taking lactulose. - Leukocytosis is improving today with WBC from 19 to normal today. 2. Chronic constipation, present on admission and active. - continue lactulose 3. COPD with exacerbation, and RUL bacterial PNA, present on admission and active. - continue prednisone 40 mg daily, at baseline O2 use but dyspnic with minimal exertion. - augmentin started as noted above. - continue RT treatments and nebulizers. - PT/OT early consult. 4. Chronic hypoxic respiratory failure, present on admission and active. 5. Anemia, present on admission and active. 6. HLD, present on admission and active. PLAN: - continue antibiotics and steroids as above - continue PT/OT as tolerated. - monitor leukocytosis with CBC JAYMIE: Possible discharge as soon as tomorrow if continued improvement in dyspnea on exertion. DVT / GI prophylaxis - HSQ Time-Based Coding :: [TOTAL MINUTES] spent with patient and on the chart (including review of chart, obtaining history, exam, reviewing outside data, placing orders, documenting exam and treatment plan, and counseling patient) on [DATE].
[2024-10-25] MEDS: HYDROCODONE/ACET 5/325 TABLET 2 TAB PO (18:05)
[2024-10-25] MEDS: ONDANSETRON 4 MG ODT PO (18:33)
[2024-10-25] MEDS: LORATADINE 10 MG TABLET PO (20:44)
[2024-10-25] MEDS: ATORVASTATIN 20 MG TABLET 10 MG PO (20:45)
[2024-10-25] MEDS: MONTELUKAST 10 MG TABLET PO (20:45)
[2024-10-26] VITALS (9 sets, daily range): BP systolic 128–183; BP diastolic 66–80; PULSE 80–115; RESP 14–26; TEMP 35.8–36.2; O2SAT 94–98
[2024-10-26] MEDS: guaiFENesin Solution 100 MG/5 ML UDC 200 MG PO ×2 (04:52→20:14)
[2024-10-26] MEDS: ACETAMINOPHEN 325 MG TABLET 650 MG PO (06:39)
[2024-10-26] MEDS: ALBUTEROL 2.5 MG/3 ML NEB (ADULT) INH ×5 (07:42→23:51)
[2024-10-26] MEDS: BUDESONIDE 0.5 MG/2 ML NEB INH (07:42)
--- NOTE | 2024-10-26 08:00 | P.PN_ITS ---
Subjective Subjective Interval history: Summary: He was admitted with recurrent sigmoid diverticulitis. He was treated for a 14 day course in September. He was severe COPD in his not really an operative candidate for recurrent sigmoid diverticulitis. S: He was having significant lower abdominal pain still as well as dyspnea and a dry cough. He is able to do transfers primarily at home but he did walk about 5 steps for the 1st time in a long time last week with physical therapy. He has extensive caregiving support at home. He appears to likely require a longer period of antibiotic treatment for diverticulitis given his recent course. Exam Vital Signs (past 8 hours): - 10/26/24 06:00 10/26/24 07:45 Temperature 96.5 F L Pulse Rate 83 80 Respiratory Rate 22 18 Blood Pressure 150/76 H Pulse Oximetry 98 98 Oxygen Delivery Method Nasal Cannula Oxygen Flow Rate 2 2 Fraction of Inspired Oxygen 28 SaO2/FiO2 Ratio 342 Oxygen Delivery Method Nasal Cannula Oxygen Flow Rate 2 Narrative Exam Narrative: NAD, alert and oriented. Fluent speech. He appears chronically ill, frail, and on oxygen. Lungs are diffusely wheezy, normal rate and increased effort. Heart is regular, no murmur gallop or rub. Abdomen is soft, non distended. There is tenderness in the left lower quadrant. Extremities are free of edema. Objective Labs 10/25/24 10:53 10/25/24 10:53 Labs: Laboratory Results - last 24 hr 10/25/24 10:53 WBC 10.4 RBC 3.71 L Hgb 10.2 L Hct 31.9 L MCV 85.9 MCH 27.5 MCHC 32.0 RDW 16.6 H Plt Count 211 Neut % (Auto) 77.6 H Lymph % (Auto) 12.2 L [place] % (Auto) 9.3 Eos % (Auto) 0.7 L Baso % (Auto) 0.2 Neut # (Auto) 8100 H Lymph # (Auto) 1300 [place] # (Auto) 1000 H Eos # (Auto) 100 Baso # (Auto) 0 Sodium 139 Potassium 3.8 Chloride 98 Carbon Dioxide 39 H BUN 21 H Creatinine 0.83 Estimated GFR > 60 BUN/Creatinine Ratio 25.3 H Glucose 149 H Calcium 8.7 PFSH Medical History Lung nodule seen on imaging study History of tobacco abuse Fatigue Ventricular tachycardia (paroxysmal) Anemia Palpitations GERD with stricture HTN (hypertension) Insomnia (~2015) Hyperlipidemia (~2016) Anxiety (~2015) COPD (chronic obstructive pulmonary disease) (~2013) Asthma (Unknown) TIA (transient ischemic attack) (05/2014) Hematuria (~2014) Surgical History No pertinent past surgical history Family History Mother Age: 86 Hypertension Sister Age: 69 Cancer Social History household members: none Smoking Status: Current every day smoker Tobacco: How many years used: 47 quit status: considering quitting second hand exposure: No alcohol intake: former substance use type: does not use Assessment & Plan Assessment & Plan narrative: 1. Acute Sigmoid Diverticulitis, present on admission and active. This is recurrent after being treated in September of this year. - given ceftriaxone and azithro in the ER for PNA. - changed to augmentin given rapid improvement for PNA and diverticulitis coverage - possible relation to chronic constipation, he feels much improved after lactulose and one bowel movement today. Reports gas pain with taking lactulose. - Leukocytosis is improving today with WBC from 19 to normal today. 2. Chronic constipation, present on admission and active. - continue lactulose 3. COPD with exacerbation, and RUL bacterial PNA, present on admission and active. - continue prednisone 40 mg daily, at baseline O2 use but dyspnic with minimal exertion. - augmentin started as noted above. - continue RT treatments and nebulizers. - PT/OT early consult. Anticipate a 21 day course of antibiotics. 4. Chronic hypoxic respiratory failure, present on admission and active. 5. Anemia, present on admission and active. 6. HLD, present on admission and active. PLAN: - continue antibiotics and steroids as above - continue PT/OT as tolerated. - monitor leukocytosis with CBC -anticipate probable discharge on October 27. -anticipate at least a 21 day course of antibiotics. Time-Based Coding :: [TOTAL MINUTES] spent with patient and on the chart (including review of chart, obtaining history, exam, reviewing outside data, placing orders, documenting exam and treatment plan, and counseling patient) on [DATE].
[2024-10-26] MEDS: clonazePAM 0.5 MG TABLET PO ×3 (08:55→20:14)
[2024-10-26] MEDS: predniSONE 20 MG TABLET 40 MG PO (08:55)
[2024-10-26] MEDS: AMOXICILLIN/CLAV 875/125 MG 1 TAB PO ×2 (08:55→20:14)
[2024-10-26] MEDS: ASCORBIC ACID 500 MG TABLET PO (08:55)
[2024-10-26] MEDS: FERROUS SULFATE 325 MG TABLET PO (08:56)
[2024-10-26] MEDS: ENOXAPARIN 40 MG/0.4 ML SYRINGE SUBCUT (08:56)
[2024-10-26] MEDS: MULTIVITAMIN 1 TABLET 1 TAB PO (08:56)
[2024-10-26] MEDS: CYANOCOBALAMIN (VITAMIN B-12) 100 MCG TABLET 1000 MCG PO (08:56)
[2024-10-26] MEDS: SODIUM CHLORIDE 0.9% FLUSH 10 ML IV ×2 (08:56→19:56)
[2024-10-26] MEDS: MAG HYDROX/ALUM/SIMETH 30 ML UDC PO (08:58)
[2024-10-26 11:40] LABS: Add Manual Diff / Slide Review NO; Basophils Absolute Auto 0 /uL (0-100); Basophils Percent Auto 0.1 % (0-2); Eosinophils Absolute Auto 0 /uL (0-450); Eosinophils Percent Auto 0.3 % (2-4); Hematocrit 30.6 % (41-53); Hemoglobin 9.8 g/dL (13.5-17.5); Lymphocytes Absolute Auto 1500 /uL (1100-4500); Lymphocytes Percent Auto 13.8 % (25-40); Mean Corpuscular HGB Conc 31.9 % (30-36); Mean Corpuscular Hemoglobin 27.5 PG (26-34); Mean Corpuscular Volume 86.3 fL (80-100); Monocytes Absolute Auto 800 /uL (0-900); Monocytes Percent Auto 7.9 % (3-14); Neutrophils Absolute Auto 8400 /uL (1500-7000); Neutrophils Percent Auto 77.9 % (50-75); Platelet Count 227 X10^3/uL (150-400); Red Blood Cell Count 3.55 X10^6/uL (4.5-5.9); Red Cell Distribution Width 16.4 % (11.6-14.8); White Blood Cell Count 10.7 X10^3/uL (4.5-11.0)
[2024-10-26 11:50] LABS: BUN Creatinine Ratio 22.1 (6-22); Blood Urea Nitrogen 21 mg/dL (9-20); Calcium 8.9 mg/dL (8.4-10.2); Chloride 95 mmol/L (98-107); Estimated Glomerular Filt Rate > 60 mL/min (>60); Glucose 112 mg/dL (80-110); HEMOLYSIS < 15 (0-50); Potassium 3.5 mmol/L (3.4-5.1); Sodium 141 mmol/L (137-145)
[2024-10-26 11:58] LABS: Carbon Dioxide 41 mmol/L (22-32)
--- NOTE | 2024-10-26 12:42 | OT.IP.TRT ---
Current Diagnoses Diverticulitis of large intestine without perforation or abscess without bleeding (10/23/24) Occupational Therapy Treatment Note M2 OT-IP Current Condition Start: 10/25/24 09:59 Freq: Status: Active Protocol: Document 10/25/24 09:59 [facility]3] (Rec: 10/25/24 10:14 [facility]3] Desktop) Occupational Therapy Current Condition Current Condition Evaluation Date 10/25/24 Treatment Diagnosis COPD exacerbation, PNA Diagnosis Onset Date 10/23/24 M3 OT- IP Subjective and Pain Start: 10/25/24 09:59 Freq: Status: Active Protocol: Document 10/26/24 12:10 [facility]3] (Rec: 10/26/24 13:55 [facility]3] Desktop) OT- Subjective Occupational Therapy Visit Type Type Treatment Note Visit Start Time 12:10 Visit Stop Time 12:42 Occupational Therapy Visit Comments Patient Comments Pt after encouragement agreed to try to use the BSC. Patient/Caregiver Goals TO go home when able. OT Pain Assessment Pain When Pain Assessed At Rest Pain Present Pain Present Pain Reported Location abdomen Pain Behaviors Facial Grimacing,Holding Area M4 OT- IP ADL's Start: 10/25/24 09:59 Freq: Status: Active Protocol: Document 10/26/24 12:10 [facility]3] (Rec: 10/26/24 13:55 [facility]3] Desktop) OT ADL-Grooming General Evaluation Grooming Ability Standby Assistance Areas Needing Assistance Retrieving/Set-up of Grooming Items Comments OT Grooming Comments While seated. OT ADL-Oral Care Comments Oral Care Comments Pt able to rinse his mouth with mouthwash while seated. OT ADL-Dressing General Eval Lower Body Dressing Ability Maximum Assistance Comments OT Dressing Comments Pt able to straighten his socks during long sitting in bed. Pt getting tired and needing assist for brief management needs while on the BSC. OT ADL-Toileting General Evaluation Toileting Ability Moderate Assistance Areas Needing Assistance Manage Clothing,Perform Perineal Hygiene Comments OT Toileting Comments Assist for completeness to wipe. Pt able to wipe twice on his own. Assist for brief. OT ADL-Bathing Comments OT Bathing Comments Use of rolling shower chair or sponging off. M5 OT- IP IADL's Start: 10/25/24 09:59 Freq: Status: Active Protocol: Document 10/25/24 09:59 [facility]3] (Rec: 10/25/24 10:14 [facility]3] Desktop) OT-Instrumental Activities of Daily Living Home Safety Awareness Awareness of Need for Assistance at Home Good Awareness Medication Management Medication Management Caregiver Provides Supervision Money Management Money Management Caregiver Provides Supervision Meal Preparation Meal Preparation Caregiver Provides Assist Integration Technician Integration Technician Caregiver Provides Assist M6 OT- IP Functional Cognition Start: 10/25/24 09:59 Freq: Status: Active Protocol: Document 10/26/24 12:10 [facility]3] (Rec: 10/26/24 13:55 [facility]3] Desktop) Cognitive Factors Limiting Selfcare Function Cognitive Comments Cognitive Assessment Comments Pt still having difficulty to initiate and make decisions. M7 OT- IP Mobility and Balance Start: 10/25/24 09:59 Freq: Status: Active Protocol: Document 10/26/24 12:10 [facility]3] (Rec: 10/26/24 13:55 [facility]3] Desktop) OT- Bed Mobility Assessment Supine to Sit Supine to Sit Assist Independent Scooting Scooting to Edge of Bed Independent OT-Transfer Assessment Sit to and From Stand Sit to and from Stand Standby Assistance Transfers Transfer Ability Standby Assistance,Contact Guard Assistance Technique Transfer Destination Bed,Bedside Commode,Chair Devices Transfer Assistive Devices Gait Belt,Front Wheeled Walker Comments Mobility Comments Pt able to transfer to the BSC on his own- BSC placed directly in front on him and able to pull down his brief as well. Pt needing CGA with FWW to transfer to the recliner as getting tired. OT- Balance Assessment Sitting Balance and Reactions Static Sitting Balance Ability Normal Dynamic Sitting Balance Ability Good Standing Balance and Reactions Static Standing Balance Ability Fair Dynamic Standing Balance Ability Fair M8 OT- IP Objective Assessments Start: 10/25/24 09:59 Freq: Status: Active Protocol: Document 10/25/24 09:59 [facility]3] (Rec: 10/25/24 10:14 [facility]3] Desktop) OT Gross Range of Motion Upper Extremity Range of Motion Assessment Within Functional Limits OT Strength Upper Extremity Strength Assessment Within Functional Limits Comments Strength Comments grossly 4/5 M9 OT- IP Assessment and Plan Start: 10/25/24 09:59 Freq: Status: Active Protocol: Document 10/26/24 12:10 [facility]3] (Rec: 10/26/24 13:55 [facility]3] Desktop) OT Summary Assessment and Plan Potential Rehabilitation Potential Good Analytic Complexity at Evaluation Moderate Summary OT Impairments Strength,Balance,Functional Mobility,Dressing,Toileting, Toilet Transfers,Shower Transfers,Activity Tolerance Progress Towards Goals Progressing Toward Goals,Slow Progress due to Activity Tolerance Assessment Summary Pt able to participate in toileting and transfers to the C and recliner. Pt to go home when medically stable with assist and home health. Goals Self-Feeding Goal Independent Grooming Goal Independent Dressing Goal Independent Toileting Goal Independent Bathing Goal Minimal Assistance Toilet Transfer Goal Independent Shower Transfer Goal Independent Days to Meet Goals 4 Frequency of Treatment Frequency Of Treatment Once a Day Treatment Plan OT Treatment Plan ADL Training,Functional Mobility,Patient/Family Education,Discharge Planning Discharge Recommendations OT Discharge Recommendations Home with Assistance,Home Health Transportation Needs at Discharge Private Vehicle
--- NOTE | 2024-10-26 12:59 | CM.DPNOTE ---
DCP Cont Reviewed chart. Patient discussed in multidisciplinary rounds. Anticipated JAYMIE is 10/27. Patient will discharge on po abx and will be encouraged to follow up with PCP Dr Oliva. Historically, patient has appealed his discharge and multidisciplinary team anticipates patient may evoke his right under Medicare to appeal discharge once placed. CM team will plan to follow closely. Patient plans to return home at discharge. Patient has O2 at baseline, [facility], JENNIFER cgs 5 days week 5-6hrs daily. Call received from Elizabeth at [facility] P [phone]; voicemail. Plan remains discharge home w/resumption of HH, JENNIFER caregivers, family, w/close outpatient follow up. CM team following clinical course closely. CRISTAL
[2024-10-26] MEDS: POTASSIUM CHLORIDE 20 MEQ TAB 40 MEQ PO (14:47)
[2024-10-26] MEDS: HYDROCODONE/ACET 5/325 TABLET 2 TAB PO (19:44)
[2024-10-26] MEDS: ONDANSETRON 4 MG ODT PO (19:44)
[2024-10-26] MEDS: LACTULOSE 20 GM/30 ML SOLUTION PO (20:14)
[2024-10-26] MEDS: BENZONATATE 100 MG CAPSULE PO (20:14)
[2024-10-26] MEDS: MONTELUKAST 10 MG TABLET PO (20:14)
[2024-10-26] MEDS: ATORVASTATIN 20 MG TABLET 10 MG PO (20:14)
[2024-10-26] MEDS: LORATADINE 10 MG TABLET PO (20:14)
[2024-10-27] VITALS (8 sets, daily range): BP systolic 130–144; BP diastolic 59–66; PULSE 80–118; RESP 16–20; TEMP 36.1–36.6; O2SAT 94–98
--- NOTE | 2024-10-27 01:08 | PC.NURSE ---
Patient is alert and oriented. Breath sounds diminished and tight with expiratory wheezes. Is able to speak in complete sentences but becomes SOB with continued conversation and resorts to some pursed lip breathing at times. Reports he becomes very SOB with exertion. Has been coughing and reports production of yellow/vera sputum; medicated with Tessalon and Guaifenesin with HS meds. Is on chronic oxygen at 2L/min and sat is at 95%. No hearing loss but reports chronic tinnitus. HRR with BP elevated at 183/80 after receiving albuterol treatment. Did request Zofran for nausea prior to being medicated with Vicodin for 7/10 abdominal pain. BT present and hyperactive; soft and tender to touch. Is voiding per urinal and denied any dysuria. Gait not assessed as not yet out of bed but reportedly can transfer to chair or BSC with SBA. Bilateral calf SCD's were applied shortly after assessment. Bruising noted on right heel and bilateral UE as well as right antecubital area and above. Tiny abrasion on top of right foot. Unable to assess his back or bottom as unable to have HOB put down due to breathing so will assess when he gets out of bed next. Fall risk score is high and bed alarm is activated.
[2024-10-27] MEDS: ALBUTEROL 2.5 MG/3 ML NEB (ADULT) INH ×6 (03:58→23:06)
[2024-10-27] MEDS: BUDESONIDE 0.5 MG/2 ML NEB INH ×3 (08:30→19:03)
[2024-10-27] MEDS: ONDANSETRON 4 MG/2 ML INJ IV (09:09)
[2024-10-27] MEDS: MAG HYDROX/ALUM/SIMETH 30 ML UDC PO ×2 (09:09→21:19)
[2024-10-27] MEDS: predniSONE 20 MG TABLET 40 MG PO (09:13)
[2024-10-27] MEDS: AMOXICILLIN/CLAV 875/125 MG 1 TAB PO (09:13)
[2024-10-27] MEDS: ASCORBIC ACID 500 MG TABLET PO (09:13)
[2024-10-27] MEDS: clonazePAM 0.5 MG TABLET PO ×3 (09:13→21:18)
[2024-10-27] MEDS: CYANOCOBALAMIN (VITAMIN B-12) 100 MCG TABLET 1000 MCG PO (09:13)
[2024-10-27] MEDS: LACTULOSE 20 GM/30 ML SOLUTION PO ×3 (09:14→21:19)
[2024-10-27] MEDS: MULTIVITAMIN 1 TABLET 1 TAB PO (09:14)
[2024-10-27] MEDS: ENOXAPARIN 40 MG/0.4 ML SYRINGE SUBCUT (09:14)
[2024-10-27] MEDS: FERROUS SULFATE 325 MG TABLET PO (09:14)
[2024-10-27] MEDS: SODIUM CHLORIDE 0.9% FLUSH 10 ML IV ×2 (10:04→21:22)
--- NOTE | 2024-10-27 11:29 | PC.NURSE ---
1125 PT at the bedside assisting patient to bedside commode. Dressing applied to patient sacrum. Patient with large BM at this time.
--- NOTE | 2024-10-27 11:33 | OT.IP.TRT ---
Current Diagnoses Diverticulitis of large intestine without perforation or abscess without bleeding (10/23/24) Occupational Therapy Treatment Note M2 OT-IP Current Condition Start: 10/25/24 09:59 Freq: Status: Active Protocol: Document 10/25/24 09:59 [facility] (Rec: 10/25/24 10:14 [facility] Desktop) Occupational Therapy Current Condition Current Condition Evaluation Date 10/25/24 Treatment Diagnosis COPD exacerbation, PNA Diagnosis Onset Date 10/23/24 M3 OT- IP Subjective and Pain Start: 10/25/24 09:59 Freq: Status: Active Protocol: Document 10/27/24 10:35 [facility] (Rec: 10/27/24 12:26 [facility] Desktop) OT- Subjective Occupational Therapy Visit Type Type Treatment Note Visit Start Time 10:35 Visit Stop Time 11:32 Occupational Therapy Visit Comments Patient Comments Pt agreed to get up to use the BSC and then get to the recliner. Patient/Caregiver Goals TO go home. OT Pain Assessment Pain When Pain Assessed At Rest Pain Present Pain Present Pain Reported M4 OT- IP ADL's Start: 10/25/24 09:59 Freq: Status: Active Protocol: Document 10/27/24 10:35 [facility] (Rec: 10/27/24 12:26 [facility] Desktop) OT ADL-Grooming Comments OT Grooming Comments Pt needing assist to wash his hands as getting SOB while sitting on the BSC. OT ADL-Oral Care Comments Oral Care Comments Pt refusing at this time. OT ADL-Dressing General Eval Lower Body Dressing Ability Minimal Assistance Comments OT Dressing Comments Pt able to micaela/doff socks with increased time and rest breaks. Pt needing assist to pull up the brief over his hips after getting assist to wipe for completeness. OT ADL-Toileting General Evaluation Toileting Ability Moderate Assistance Areas Needing Assistance Manage Clothing,Perform Perineal Hygiene Comments OT Toileting Comments Nursing assist to wipe for completeness and assist to put bandage on his bottom as well . OT ADL-Bathing Comments OT Bathing Comments Pt refusing however was able to use a wash cloth to sponge off his feet/legs. M5 OT- IP IADL's Start: 10/25/24 09:59 Freq: Status: Active Protocol: Document 10/25/24 09:59 [facility] (Rec: 10/25/24 10:14 [facility] Desktop) OT-Instrumental Activities of Daily Living Home Safety Awareness Awareness of Need for Assistance at Home Good Awareness Medication Management Medication Management Caregiver Provides Supervision Money Management Money Management Caregiver Provides Supervision Meal Preparation Meal Preparation Caregiver Provides Assist Consumer Loan Processor Consumer Loan Processor Caregiver Provides Assist M6 OT- IP Functional Cognition Start: 10/25/24 09:59 Freq: Status: Active Protocol: Document 10/27/24 10:35 [facility] (Rec: 10/27/24 12:26 [facility] Desktop) Cognitive Factors Limiting Selfcare Function Cognitive Comments Cognitive Assessment Comments Pt getting very SOB, needing lots of rests breaks and encouragement to participate. M7 OT- IP Mobility and Balance Start: 10/25/24 09:59 Freq: Status: Active Protocol: Document 10/27/24 10:35 [facility] (Rec: 10/27/24 12:26 [facility] Desktop) OT-Transfer Assessment Sit to and From Stand Sit to and from Stand Standby Assistance Transfers Transfer Ability Standby Assistance,Contact Guard Assistance Technique Transfer Destination Bed,Bedside Commode,Chair Devices Transfer Assistive Devices Gait Belt,Front Wheeled Walker Comments Mobility Comments Pt able to transfer to the BSC in front of him and able to do brief management on his own . Pt able to assist to wipe x2 and then getting too SOB and coming of head ache. BP supine 142/60 hr 108, BP sitting on the toilet 161/78, 165/78 HR 103, 120. Pt's hr increased to 126 while on the BSC and nursing present and turned up the O2 and then after several minutes HR 112. Pt CGA with FWW to transfer to the [employer]. Pt left with nursing. OT- Balance Assessment Sitting Balance and Reactions Static Sitting Balance Ability Normal Dynamic Sitting Balance Ability Good Standing Balance and Reactions Static Standing Balance Ability Fair Dynamic Standing Balance Ability Fair M8 OT- IP Objective Assessments Start: 10/25/24 09:59 Freq: Status: Active Protocol: Document 10/25/24 09:59 [facility] (Rec: 10/25/24 10:14 [facility] Desktop) OT Gross Range of Motion Upper Extremity Range of Motion Assessment Within Functional Limits OT Strength Upper Extremity Strength Assessment Within Functional Limits Comments Strength Comments grossly 4/5 M9 OT- IP Assessment and Plan Start: 10/25/24 09:59 Freq: Status: Active Protocol: Document 10/27/24 10:35 [facility] (Rec: 10/27/24 12:26 [facility] Desktop) OT Summary Assessment and Plan Potential Rehabilitation Potential Good Analytic Complexity at Evaluation Moderate Summary OT Impairments Strength,Balance,Functional Mobility,Dressing,Toileting, Toilet Transfers,Shower Transfers,Activity Tolerance Progress Towards Goals Progressing Toward Goals,Slow Progress due to Activity Tolerance Assessment Summary Pt able to participate in toileting and transfers to the C and recliner. Pt to go home when medically stable with assist and home health. Pt complaining of being SOb and having headache- nursing present and aware. Goals Self-Feeding Goal Independent Grooming Goal Independent Dressing Goal Independent Toileting Goal Independent Bathing Goal Minimal Assistance Toilet Transfer Goal Independent Shower Transfer Goal Independent Days to Meet Goals 4 Treatment Plan OT Treatment Plan ADL Training,Functional Mobility,Patient/Family Education,Discharge Planning Discharge Recommendations OT Discharge Recommendations Home with 24/ Assist Available,Home Health Transportation Needs at Discharge Private Vehicle
[2024-10-27] MEDS: ACETAMINOPHEN 325 MG TABLET 650 MG PO ×2 (12:35→21:17)
[2024-10-27] MEDS: BENZONATATE 100 MG CAPSULE PO ×2 (12:40→21:18)
[2024-10-27] MEDS: guaiFENesin Solution 100 MG/5 ML UDC 200 MG PO (12:40)
--- NOTE | 2024-10-27 13:40 | CM.DPNOTE ---
VIKKI Cont Reviewed chart. Patient discussed in multidisciplinary rounds. Patient is not medically stable for discharge, JAYMIE 10/28. Placed call to [facility], spoke w/patient's case technician October P [phone]; updated with JAYMIE. October plans on updating patient's JENNIFER caregiver agencies/caregivers so that patient will have a cg available if he returns home Thursday. Patient does not have caregivers scheduled on the weekends. Vera will not be in the office Thursday, she asks that CM team update [facility] P [phone] if patient does not discharge Thursday- ask for the social service assistant of the day. Plan remains discharge home w/[facility] (update on day of discharge) and JENNIFER caregiver- if discharged on Thursday. CM team following clinical course closely for eventual coordination of discharge plan. CRISTAL
--- NOTE | 2024-10-27 13:54 | PM.PN.1 ---
Subjective Subjective Interval history: Summary: He was admitted with recurrent sigmoid diverticulitis. He was treated for a 14 day course in September. He was severe COPD in his not really an operative candidate for recurrent sigmoid diverticulitis. S: He was feeling pretty good this morning but feels little worse this afternoon with left lower quadrant pain. He was 2 person assist to transfer to a chair. His breathing is a little bit better today. His pain is worse this afternoon compared to this morning and about the same as yesterday. Exam Vital Signs (past 8 hours): - 10/27/24 07:00 10/27/24 08:35 10/27/24 11:50 Pulse Rate 100 H 101 H Respiratory Rate 20 20 Blood Pressure Pulse Oximetry 94 94 Oxygen Delivery Method Nasal Cannula Nasal Cannula Nasal Cannula Oxygen Flow Rate 2 2 10/27/24 12:00 Pulse Rate 118 H Respiratory Rate 19 Blood Pressure 142/62 H Pulse Oximetry 95 Oxygen Delivery Method Oxygen Flow Rate 2 Fraction of Inspired Oxygen 28 SaO2/FiO2 Ratio 342 Oxygen Delivery Method Nasal Cannula Oxygen Flow Rate 2 Narrative Exam Narrative: NAD, alert and oriented. Fluent speech. Lungs are clear, normal rate and effort. Heart is regular, no murmur gallop or rub. Abdomen is soft, non distended. + LLQ tenderness. Extremities are free of edema. Objective Labs 10/26/24 11:20 10/26/24 11:20 [facility] Medical History Lung nodule seen on imaging study History of tobacco abuse Fatigue Ventricular tachycardia (paroxysmal) Anemia Palpitations GERD with stricture HTN (hypertension) Insomnia (~2015) Hyperlipidemia (~2015) Anxiety (~2015) COPD (chronic obstructive pulmonary disease) (~2013) Asthma (Unknown) TIA (transient ischemic attack) (05/2014) Hematuria (~2014) Surgical History No pertinent past surgical history Family History Mother Age: 86 Hypertension Sister Age: 69 Cancer Social History household members: none Smoking Status: Current every day smoker Tobacco: How many years used: 47 quit status: considering quitting second hand exposure: No alcohol intake: former substance use type: does not use Assessment & Plan Assessment & Plan narrative: 1. Acute Sigmoid Diverticulitis, present on admission and active. This is recurrent after being treated in September of this year. 2. Chronic constipation, present on admission and active. - continue lactulose 3. COPD with exacerbation, and RUL bacterial PNA, present on admission and improving. - continue prednisone 40 mg daily, at baseline O2 use but dyspnic with minimal exertion. 4. Chronic hypoxic respiratory failure, present on admission and active. 5. Anemia, present on admission and active. 6. HLD, present on admission and active. PLAN: - continue antibiotics and steroids as above - continue PT/OT as tolerated. - Back to IV antibiotics for next 12 hours. JAYMIE: 10/28-. Time-Based Coding :: [TOTAL MINUTES] spent with patient and on the chart (including review of chart, obtaining history, exam, reviewing outside data, placing orders, documenting exam and treatment plan, and counseling patient) on [DATE].
[2024-10-27] MEDS: HYDROCODONE/ACET 5/325 TABLET 2 TAB PO (15:27)
[2024-10-27] MEDS: PIPERACILLIN/TAZO 3.375 GM in SODIUM CHLORIDE 0.9% 100 ML IV (17:47)
[2024-10-27] MEDS: LORATADINE 10 MG TABLET PO (21:18)
[2024-10-27] MEDS: MONTELUKAST 10 MG TABLET PO (21:18)
[2024-10-27] MEDS: ONDANSETRON 4 MG ODT PO (21:19)
[2024-10-27] MEDS: ATORVASTATIN 20 MG TABLET 10 MG PO (21:21)
[2024-10-28] VITALS (7 sets, daily range): BP systolic 133–177; BP diastolic 67–86; PULSE 85–100; RESP 16–20; TEMP 36.2–37; O2SAT 93–97
[2024-10-28] MEDS: PIPERACILLIN/TAZO 3.375 GM in SODIUM CHLORIDE 0.9% 100 ML IV ×2 (01:09→08:11)
[2024-10-28] MEDS: CYANOCOBALAMIN (VITAMIN B-12) 100 MCG TABLET 1000 MCG PO (08:11)
[2024-10-28] MEDS: predniSONE 20 MG TABLET 40 MG PO (08:12)
[2024-10-28] MEDS: HYDROCODONE/ACET 5/325 TABLET 2 TAB PO (08:12)
[2024-10-28] MEDS: ENOXAPARIN 40 MG/0.4 ML SYRINGE SUBCUT (08:12)
[2024-10-28] MEDS: LACTULOSE 20 GM/30 ML SOLUTION PO ×2 (08:12→20:45)
[2024-10-28] MEDS: FERROUS SULFATE 325 MG TABLET PO (08:12)
[2024-10-28] MEDS: ASCORBIC ACID 500 MG TABLET PO (08:12)
[2024-10-28] MEDS: MULTIVITAMIN 1 TABLET 1 TAB PO (08:12)
[2024-10-28] MEDS: clonazePAM 0.5 MG TABLET PO ×3 (08:12→20:45)
[2024-10-28] MEDS: SODIUM CHLORIDE 0.9% FLUSH 10 ML IV (08:13)
[2024-10-28] MEDS: ONDANSETRON 4 MG ODT PO ×2 (08:24→13:25)
[2024-10-28] MEDS: MAG HYDROX/ALUM/SIMETH 30 ML UDC PO ×3 (08:24→20:47)
--- NOTE | 2024-10-28 09:00 | CM.DPNOTE ---
DCP Cont Patient has been discharged this morning per DR Salazar's order. Met w/patient to review discharge plan. Patient's mom was in the room. Patient states immediately upon this COAL CRUSHER OPERATOR's arrival into the room that he will not be going home today. Patient is calm, repeats he will not be going home today and that he is appealing Dr Salazar's discharge today. Explained to patient and his mom that a JENNIFER caregiver will be available this afternoon upon patient's return home. This had been arranged yesterday by JENNIFER PE[place]OCK October, [facility]. In addition , patient will have [facility] services. Patient has medicaid transport Patient states appreciation and states this does not change his decision to appeal his discharge. Patient further states he knows how the appeal process works and plans to have his mom or one of his sisters pick him up tomorrow before 12noon if he loses the appeal. Reiterated that patient has his JENNIFER caregiver available today and not over the weekend. Patient and mom aware, state caregiver will again be available Tuesday 10/[address] Salazar. Updated agency sales management assistant, Katy CHANEY, who has kindly agreed to help in the appeal process. DC Summary is signed. Met w/patient again and he was on the phone w/Kanika. This COAL CRUSHER OPERATOR following closely for any discharge questions or concerns that may arise today and before patient's departure from the acute care floor. GILDA Alonzo
[2024-10-28] MEDS: BUDESONIDE 0.5 MG/2 ML NEB INH ×2 (09:04→19:34)
[2024-10-28] MEDS: ALBUTEROL 2.5 MG/3 ML NEB (ADULT) INH ×3 (09:04→19:34)
--- NOTE | 2024-10-28 09:09 | P.DS_ITS ---
History of Present Illness History of Present Illness Date Patient Seen: 10/28/24 Time Patient Seen: 07:50 Chief complaint: COPD/Divertic. Narrative: CC: Left flank pain and tenesmus fevers chills dehydration secondary to sigmoid diverticulitis/ shortness for breath worsening cough productive of yellow sputum and pleuritic chest pain secondary to pneumonia with COPD exacerbation HPI: 63-year-old gentleman history of oxygen-dependent COPD normally uses 2 L nasal cannula 24 hours 3 days ago started developing increasing pain with inspiration right upper chest area and then 2 days ago started developing some left flank pain and tenesmus. Patient noticed that felt dehydrated soaking the bed clothes and sheets. Patient called EMS which brought him to the emergency room. The emergency department findings were significant for: Diaphoretic alert but tachypneic elderly gentleman pulse 102 respirations 18 White blood count 70541 remainder of the hemogram and chemistries otherwise unremarkable Streaky right upper lobe opacity on chest x-ray generalized rarified lung parenchyma with depressed diaphragms Acute sigmoid diverticulitis on CT of the abdomen without fluid or free air Discharge Providers Provider Date of admission: 10/23/24 10:29 Discharge Date: 10/28/24 Primary care physician: Saqib Oliva DO Consults: 10/24/24 08:30 Consult to Occupational Therapy Evaluate & Treat Comment: Physician Instructions: Evaluate and treat Consult to Physical Therapy Evaluate & Treat Comment: Physician Instructions: Evaluate and Treat 10/25/24 12:27 Consult to Home Health Routine Comment: Reason For Exam: resume previous RN/PT/HUMAN RESOURCES EXECUTIVE ASSISTANT Discharge provider: Cyrus Salazar MD Summary Hospital Course Discharge Diagnosis: 1. Acute digmoid fiverticulitis 2. Chronic constipation 3. COPD with exacerbation, and RUL bacterial PNA 4. Chronic hypoxic respiratory failure 5. Anemia 6. Hyperlipidemia Hospital Course: Patient was admitted and treated with IV antibiotics, continuing on his usual home oxygen and oral prednisone, and improved significantly over the next few days, able tolerate a soft diet, with pain controlled with oral pain medications and only minimal nausea controlled with ondansetron. He was able to get up and walk without limitation. He was feeling so getting better and agreeable to discharge home in discussion at bedside with this provider. Lengthy discussion of outpatient soft, low-fiber diet and gradual progression over the next 2-3 weeks as tolerated. He understands that his medication regimen does not require ongoing hospitalization given adequate tissue levels with oral antibiotics, in the stated plan to manage medically without surgical intervention given his other multiple complex comorbidities. Status at Discharge Cognitive/behavioral status at discharge: oriented Functional status at discharge: independent ambulation Overall status at discharge: patient is back to baseline Time Spent with Patient Time spent: Greater than 30 minutes Exam Vital Signs (past 8 hours): - 10/28/24 06:00 10/28/24 06:00 Temperature 98.6 F Pulse Rate 87 Respiratory Rate 18 Blood Pressure 133/86 Pulse Oximetry 96 96 Oxygen Flow Rate 0 2 Fraction of Inspired Oxygen 28 SaO2/FiO2 Ratio 342 Oxygen Delivery Method Nasal Cannula Oxygen Flow Rate 2 Narrative Exam Narrative: NAD, alert and oriented. Fluent speech. Sitting up in bed eating. Lungs are clear, normal rate and effort. Heart is regular, no murmur gallop or rub. Abdomen is soft, non distended. minimal LLQ tenderness, no guarding. Extremities are free of edema. Objective Imaging *: Radiologist's impression: 1. Chest x-ray 10/23/2024: Stable streaky opacity within the right mid lung. Differential diagnosis includes scarring versus neoplasm. Follow-up CT is recommended to evaluate for stability by CT. 2. Abdomen/pelvis CT 10/23/2024: Acute uncomplicated sigmoid diverticulitis, with decreased surrounding inflammation since prior CT 09/18/2024. No peridiverticular fluid collection or free air to suggest complications. No new areas of inflammation. Nonobstructing 1.0 cm right inferior pole calculus. Labs 10/26/24 11:20 10/26/24 11:20 Labs: Laboratory Results - last 24 hr 10/25/24 10:53 WBC 10.4 RBC 3.71 L Hgb 10.2 L Hct 31.9 L MCV 85.9 MCH 27.5 MCHC 32.0 RDW 16.6 H Plt Count 211 Neut % (Auto) 77.6 H Lymph % (Auto) 12.2 L [place] % (Auto) 9.3 Eos % (Auto) 0.7 L Baso % (Auto) 0.2 Neut # (Auto) 8100 H Lymph # (Auto) 1300 [place] # (Auto) 1000 H Eos # (Auto) 100 Baso # (Auto) 0 Sodium 139 Potassium 3.8 Chloride 98 Carbon Dioxide 39 H BUN 21 H Creatinine 0.83 Estimated GFR > 60 BUN/Creatinine Ratio 25.3 H Glucose 149 H Calcium 8.7 PFSH Medical History Lung nodule seen on imaging study History of tobacco abuse Fatigue Ventricular tachycardia (paroxysmal) Anemia Palpitations GERD with stricture HTN (hypertension) Insomnia (~2015) Hyperlipidemia (~2015) Anxiety (~2015) COPD (chronic obstructive pulmonary disease) (~2013) Asthma (Unknown) TIA (transient ischemic attack) (05/2014) Hematuria (~2014) Surgical History No pertinent past surgical history Family History Mother Age: 86 Hypertension Sister Age: 69 Cancer Social History household members: none Smoking Status: Current every day smoker Tobacco: How many years used: 47 quit status: considering quitting second hand exposure: No alcohol intake: former substance use type: does not use Discharge Plan Discharge Plan Patient Disposition: Home Provider Discharge Comment: Followup with Dr. Saqib Oliva 1 week Discharge orders & Medications Prescriptions: New amoxicillin-pot clavulanate 875-125 mg tablet 1 tab PO BID Qty: 28 0RF metronidazole 500 mg tablet 500 mg PO Q8H Qty: 42 0RF hydrocodone-acetaminophen 5-325 mg Tablet 2 tab PO Q4H PRN (Reason: Pain, Severe (7-10)) Qty: 20 0RF ondansetron 4 mg tablet,disintegrating 4 mg PO Q8H PRN (Reason: nausea and vomiting) Qty: 14 0RF Continued benzonatate 100 mg capsule 100 mg PO BID-TID PRN (Reason: Cough) Qty: 270 0RF (DME) Disabled Parking Permint See Rx Instructions .ROUTE .MEDSUPPLY Qty: 1 0RF Rx Instructions: I find this patient to be medically disabled and qualified for Disabled Parking as indicated and signed on the Accompanying Disabled Parking Application for individuals. Dulera 200-5 mcg/actuation HFA aerosol inhaler 2 puff PO BID Qty: 13 5RF cetirizine 10 mg tablet 10 mg PO BEDTIME clonazepam 0.5 mg tablet 0.5 mg PO TID Qty: 90 3RF Rx Instructions: 02/13/25:Mak states he is only taking the Clonazepam twice daily on a regular basis but needs the option to take it TID if needed when anxiety is especially high. guaifenesin 100 mg/5 mL liquid 200 mg PO Q4H PRN (Reason: cough) nitroglycerin 0.3 mg tablet, sublingual 0.3 mg sublingual Q5-15M PRN (Reason: chest pain) Qty: 20 0RF Rx Instructions: do not exceed 3 doses per episode simvastatin 20 mg tablet 20 mg PO QPM Qty: 90 3RF albuterol sulfate 2.5 mg /3 mL (0.083 %) solution for nebulization 2.5 mg inhalation QID PRN (Reason: shortness of breath or wheezing) Qty: 180 11RF albuterol sulfate [Ventolin HFA] 90 mcg/actuation HFA aerosol inhaler 1 - 2 puff PO Q4H PRN (Reason: for wheezing) Qty: 54 11RF ipratropium bromide 0.02 % solution 2.5 ml inhalation QID PRN (Reason: shortness of breath or wheezing) Qty: 150 11RF montelukast 10 mg tablet 10 mg PO BEDTIME Qty: 90 3RF ascorbate calcium (vitamin C) 500 mg tablet 500 mg PO DAILY ferrous gluconate 324 mg (38 mg iron) tablet 324 mg PO DAILY Qty: 90 1RF ondansetron 4 mg tablet,disintegrating 4 mg PO Q6-8H PRN (Reason: nausea and vomiting) Qty: 30 0RF prednisone 20 mg tablet 40 mg PO DAILY Qty: 30 0RF mecobalamin (vitamin B12) 1,000 mcg tablet,chewable 1,000 mcg PO DAILY alum-mag hydroxide-simeth 400-400-40 mg/5 mL Suspension See Rx Instructions .ROUTE .COMPLEX MDD 120 ml PRN (Reason: heartburn/gas) Rx Instructions: [employer] Brand Mylanta Gas -- 400 mg Aluminum Hydroxide, 400mg Magnesium Hydroxide, 40mg Simethicone/10 ml (Suspension) 10 to 20 ml PRN with/after meals & bedtime as needed for heartburn/gas relief by Mouth Max dose 120 ml total/24 hours multivit with min-folic acid 0.4 mg Tablet 1 tab PO DAILY nystatin 100,000 unit/mL suspension 5 ml PO QID PRN (Reason: thrush) Follow up/Referrals: Saqib Oliva, DO [Primary Care Provider] - Diet/Activity/Treatments Diet: Regular Diet comment: Soft low fiber diet until feeling better, then advance to regular foods Visit Report/Discharge Packet Stand Alone Forms: Patient Portal/API, Stroke Signs & Symptoms Discharge Data Primary Care Provider: Saqib Oliva Quality MIPS - Admit I confirm the patient?s Advance Care Plan is present, Code status is documented, Surrogate decision maker is in patient?s record [If Yes, STOP here]: Yes MIPS - Meds 'Current medications' to include all prescriptions, [id number] products, herbals, cannabis/cannabidiol products, and vitamin/mineral/dietary (nutritional) supplements. I have utilized all available resources to obtain, update, or review the patient?s current medications. [If Yes, STOP here]: Yes MIPS - DC The patient has a history of heart transplant or Left Ventricular Assist Device (LVAD). If yes, STOP here.: No The patient has current or prior documentation of left ventricular ejection fraction (LVEF) less than or equal to 40%, or moderate or severely depressed left ventricular systolic function.: No A. The patient was prescribed or already taking an Angiotensin-Converting Enzyme (KINGS) Inhibitor, or Angiotensin Receptor Everardo (ARB).: No B. The patient was prescribed or already taking a beta-everardo. [If Yes to Both A & B, STOP here]: No Patient not prescribed/taking KINGS or ARB, no reason given.: No Patient not prescribed/taking beta-everardo, no reason given.: No PROFEE Charge Codes Discharge inpatient/observation: [id number]
--- NOTE | 2024-10-28 10:34 | DIET.CONS ---
Dietary Consultation Note Admission Date: 10/23/2024 10:29 Assessment: 63 y M admitted for diverticulitis. Dietitian screened for LOS. Met with pt at bedside who reports familiar with soft food options here and ordering tolerated foods. Tolerated eggs and some hashbrowns this morning. PO intakes 50-100%. Ht: 175.26 cm Wt: 73.936 kg BMI: 24.0 UBW: 74.843 kg on 09/28/24, 79.152 kg on 08/10/24 (-6% weight loss in 3 months, non-severe), between 72-74 kg in 2023 Last BM: 10/27/24 (10/27/24 13:10) MNA: 13 Matthew Score: 18 Diet: 10/24/24 Lunch General (Regular) Diet Diet Modifications: Food Texture: Level 7 - Regular Liquid Consistency: Level 0 - Thin Nutrition Percent Meal Consumed 100% 10/27/24 10:08 Percent Meal Consumed 100% 10/26/24 18:00 Labs: RBC 3.55 X10^6/uL (4.5-5.9) L 10/26/24 11:20 Hgb 9.8 g/dL (13.5-17.5) L 10/26/24 11:20 Hct 30.6 % (41-53) L 10/26/24 11:20 Creatinine 0.95 mg/dL (0.66-1.25) 10/26/24 11:20 Lactate 1.2 mmol/L (0.7-2.1) 10/23/24 09:38 NT-Pro-B Natriuret Pep 144 pg/mL (<125) H 10/23/24 07:23 Nutrition Diagnosis: Altered GI function r/t alterations in GI tract structure/function aeb diverticulitis Interventions: encouraged continuing soft, lower fiber diet and then increasing fiber slowly when flare-up gone, discussed fiber options for when increasing fiber and discussed good tolerated protein sources Monitoring/Evaluations: po intakes Electronically Signed by: Alyssa Srinivasan 10/28/24 10:34 Clinical Dietitian [address] [address]
--- NOTE | 2024-10-28 11:22 | OT.IP.TRT ---
Current Diagnoses Diverticulitis of large intestine without perforation or abscess without bleeding (10/23/24) Occupational Therapy Treatment Note M2 OT-IP Current Condition Start: 10/25/24 09:59 Freq: Status: Active Protocol: Document 10/25/24 09:59 [facility] (Rec: 10/25/24 10:14 [facility] Desktop) Occupational Therapy Current Condition Current Condition Evaluation Date 10/25/24 Treatment Diagnosis COPD exacerbation, PNA Diagnosis Onset Date 10/23/24 M3 OT- IP Subjective and Pain Start: 10/25/24 09:59 Freq: Status: Active Protocol: Document 10/28/24 11:22 [facility] (Rec: 10/28/24 11:30 [facility] Desktop) OT- Subjective Occupational Therapy Visit Type Type Treatment Note Visit Start Time 10:48 Visit Stop Time 11:20 Occupational Therapy Visit Comments Patient Comments Pt agreed to talk about needs and stressors at home. Patient/Caregiver Goals TO go home. OT Pain Assessment Pain When Pain Assessed At Rest Pain Present Pain Present Denied Pain M6 OT- IP Functional Cognition Start: 10/25/24 09:59 Freq: Status: Active Protocol: Document 10/28/24 11:22 [facility] (Rec: 10/28/24 11:30 [facility] Desktop) Cognitive Factors Limiting Selfcare Function Cognitive Ability Level of Alertness Alert Cognitive Comments Cognitive Assessment Comments Spoke of trying to make list to help remind pt things to do at home. Pt able to write will try to have breakfast daily with his pills and do some exercises. Suggested chair push up for bottom relief often, in addition to BUE and BLE exercises while seated. In addition for pt to standup every 2-3 hours to check his brief as at times pt is incontinent. Spoke of getting a saddle bag for his power chair to be better able to reach his cord versus back on his powerchair. Lastly for pt to be able to write down daily what he is grateful for. OT- Balance Assessment Sitting Balance and Reactions Static Sitting Balance Ability Normal Dynamic Sitting Balance Ability Good Standing Balance and Reactions Static Standing Balance Ability Fair Dynamic Standing Balance Ability Fair M8 OT- IP Objective Assessments Start: 10/25/24 09:59 Freq: Status: Active Protocol: Document 10/25/24 09:59 [facility] (Rec: 10/25/24 10:14 [facility] Desktop) OT Gross Range of Motion Upper Extremity Range of Motion Assessment Within Functional Limits OT Strength Upper Extremity Strength Assessment Within Functional Limits Comments Strength Comments grossly 4/5 M9 OT- IP Assessment and Plan Start: 10/25/24 09:59 Freq: Status: Active Protocol: Document 10/28/24 11:22 [facility] (Rec: 10/28/24 11:30 [facility] Desktop) OT Summary Assessment and Plan Potential Rehabilitation Potential Good Analytic Complexity at Evaluation Moderate Summary OT Impairments Strength,Balance,Functional Cognition,Functional Mobility, Dressing,Toileting,Toilet Transfers,Shower Transfers, Activity Tolerance Progress Towards Goals Progressing Toward Goals Assessment Summary Able to talk at length with stress management strategies with pt. Pt to go home when medically stable. Goals Self-Feeding Goal Independent Grooming Goal Independent Dressing Goal Independent Toileting Goal Independent Bathing Goal Minimal Assistance Toilet Transfer Goal Independent Days to Meet Goals 3 Treatment Plan OT Treatment Plan ADL Training,Functional Mobility,Patient/Family Education,Discharge Planning Discharge Recommendations OT Discharge Recommendations Home with 24/7 Assist Available,Home Health Transportation Needs at Discharge Private Vehicle
--- NOTE | 2024-10-28 14:35 | CM.DPNOTE ---
VIKKI Del Castillo Spoke w/Francoise Faulkner, [facility] covering for patient's JENNIFER CM October today. Updated that patient is not discharging home today, likely tomorrow. JENNIFER CM October will likely follow up with patient Thursday. CRISTAL
[2024-10-28] MEDS: MONTELUKAST 10 MG TABLET PO (20:44)
[2024-10-28] MEDS: AMOXICILLIN/CLAV 875/125 MG 1 TAB PO (20:44)
[2024-10-28] MEDS: LORATADINE 10 MG TABLET PO (20:44)
[2024-10-28] MEDS: ATORVASTATIN 20 MG TABLET 10 MG PO (20:45)
[2024-10-28] MEDS: guaiFENesin Solution 100 MG/5 ML UDC 200 MG PO (20:51)
[2024-10-28] MEDS: BENZONATATE 100 MG CAPSULE PO (20:52)
[2024-10-29] VITALS (10 sets, daily range): BP systolic 131–166; BP diastolic 66–72; PULSE 80–94; RESP 16–22; TEMP 36.1–37; O2SAT 95–98
[2024-10-29] MEDS: ACETAMINOPHEN 325 MG TABLET 650 MG PO ×2 (00:20→20:15)
[2024-10-29] MEDS: ALBUTEROL 2.5 MG/3 ML NEB (ADULT) INH ×5 (00:23→23:19)
--- NOTE | 2024-10-29 08:13 | CM.DPNOTE ---
Addendum entered by GILDA Aguilar 10/29/24 10:58: PANTRY COOK met with pt, sister, and mother in room. reviewed appeal timeline/DCP. pt reports he's in more pain today, RN at bedside. Pt reports he understands that pending the appeal decision he will have to leave tomorrow by 12pm. family to transport, Julia LOIS to follow. pt continues to deny SNF/PENITENTIARY placement. Will need to send DC information to Julia ABREU and JENNIFER and JENNIFER Lead Accountant. SL Original Note: DCP note PANTRY COOK reviewed EMR per [employer] website, pt's appeal remains in clinical review. PANTRY COOK updated provider on appeal decision pending. P: pending appeal decision. anticipate return home with Julia ABREU to follow, family to transport, and JENNIFER Support (not available until Thursday). will updates JENNIFER team with eventual DC information GILDA Aguilar
[2024-10-29] MEDS: predniSONE 20 MG TABLET 40 MG PO (08:23)
[2024-10-29] MEDS: BENZONATATE 100 MG CAPSULE PO ×3 (08:24→20:15)
[2024-10-29] MEDS: LACTULOSE 20 GM/30 ML SOLUTION PO ×2 (08:24→15:46)
[2024-10-29] MEDS: MULTIVITAMIN 1 TABLET 1 TAB PO (08:24)
[2024-10-29] MEDS: ASCORBIC ACID 500 MG TABLET PO (08:24)
[2024-10-29] MEDS: clonazePAM 0.5 MG TABLET PO ×3 (08:24→20:15)
[2024-10-29] MEDS: FERROUS SULFATE 325 MG TABLET PO (08:24)
[2024-10-29] MEDS: AMOXICILLIN/CLAV 875/125 MG 1 TAB PO ×2 (08:24→20:15)
[2024-10-29] MEDS: SODIUM CHLORIDE 0.9% FLUSH 10 ML IV (08:24)
[2024-10-29] MEDS: HYDROCODONE/ACET 5/325 TABLET 2 TAB PO ×2 (08:24→15:45)
[2024-10-29] MEDS: ENOXAPARIN 40 MG/0.4 ML SYRINGE SUBCUT (08:25)
[2024-10-29] MEDS: BUDESONIDE 0.5 MG/2 ML NEB INH ×2 (09:01→19:43)
[2024-10-29] MEDS: guaiFENesin Solution 100 MG/5 ML UDC 200 MG PO ×3 (09:39→20:15)
[2024-10-29] MEDS: CYANOCOBALAMIN (VITAMIN B-12) 500 MCG TABLET 1000 MCG PO (09:39)
--- NOTE | 2024-10-29 09:40 | PM.PN.IH.1 ---
Subjective Subjective Date Patient Seen: 10/29/24 Time Patient Seen: 07:58 Interval history: No new events, eating all meals, taking po meds as he would at home. Exam Vital Signs (past 8 hours): - 10/29/24 04:23 10/29/24 08:00 10/29/24 09:01 Temperature 97.1 F L Pulse Rate 80 87 91 H Respiratory Rate 18 22 16 Blood Pressure 131/70 166/72 H Pulse Oximetry 95 95 96 Oxygen Delivery Method Nasal Cannula Oxygen Flow Rate 2 2 Fraction of Inspired Oxygen 28 SaO2/FiO2 Ratio 335 Oxygen Delivery Method Nasal Cannula Oxygen Flow Rate 2 Narrative Exam Narrative: NAD, alert and oriented. Fluent speech. Sitting up in bed eating. Objective Labs 10/26/24 11:20 10/26/24 11:20 [facility] Medical History Lung nodule seen on imaging study History of tobacco abuse Fatigue Ventricular tachycardia (paroxysmal) Anemia Palpitations GERD with stricture HTN (hypertension) Insomnia (~2015) Hyperlipidemia (~2015) Anxiety (~2015) COPD (chronic obstructive pulmonary disease) (~2013) Asthma (Unknown) TIA (transient ischemic attack) (05/2014) Hematuria (~2014) Surgical History No pertinent past surgical history Family History Mother Age: 86 Hypertension Sister Age: 69 Cancer Social History household members: none Smoking Status: Current every day smoker Tobacco: How many years used: 47 quit status: considering quitting second hand exposure: No alcohol intake: former substance use type: does not use Assessment & Plan Assessment & Plan narrative: 1. Acute Sigmoid Diverticulitis, present on admission and active. This is recurrent after being treated in September of this year. 2. Chronic constipation, present on admission and active. - continue lactulose 3. COPD with exacerbation, and RUL bacterial PNA, present on admission and improving. - continue prednisone 40 mg daily, at baseline O2 use but dyspnic with minimal exertion. 4. Chronic hypoxic respiratory failure, present on admission and active. 5. Anemia, present on admission and active. 6. HLD, present on admission and active. PLAN: - discharge home - see DC summary yesterday JAYMIE: 10/28 PROFEE Assessment Analyst Document charge(s): No Charge Codes Subsequent inpatient/observation care: [id number]
[2024-10-29] MEDS: MAG HYDROX/ALUM/SIMETH 30 ML UDC PO (17:48)
[2024-10-29] MEDS: LORATADINE 10 MG TABLET PO (20:15)
[2024-10-29] MEDS: ATORVASTATIN 20 MG TABLET 10 MG PO (20:15)
[2024-10-29] MEDS: MONTELUKAST 10 MG TABLET PO (20:15)
[2024-10-30] VITALS: BP 155/74; PULSE 92; RESP 16; TEMP 36.2; O2SAT 97
[2024-10-30 06:11] VITALS: BP 140/75; PULSE 89; RESP 18; TEMP 36.2; O2SAT 98
--- NOTE | 2024-10-30 08:12 | PM.PN.IH.1 ---
Subjective Subjective Date Patient Seen: 10/30/24 Time Patient Seen: 07:38 Interval history: No new events, eating meals, taking po meds as he would at home. Exam Vital Signs (past 8 hours): - 10/30/24 06:11 Temperature 97.1 F L Pulse Rate 89 Respiratory Rate 18 Blood Pressure 140/75 Pulse Oximetry 98 Oxygen Flow Rate 2 Fraction of Inspired Oxygen 28 SaO2/FiO2 Ratio 342 Oxygen Delivery Method Nasal Cannula Oxygen Flow Rate 2 Narrative Exam Narrative: NAD, alert and oriented. Fluent speech. Sitting up in bed eating. Objective Imaging *: Radiologist's impression: 1. Chest x-ray 10/23/2024: Stable streaky opacity within the right mid lung. Differential diagnosis includes scarring versus neoplasm. Follow-up CT is recommended to evaluate for stability by CT. 2. Abdomen/pelvis CT 10/23/2024: Acute uncomplicated sigmoid diverticulitis, with decreased surrounding inflammation since prior CT 09/18/2024. No peridiverticular fluid collection or free air to suggest complications. No new areas of inflammation. Nonobstructing 1.0 cm right inferior pole calculus. Labs 10/26/24 11:20 10/26/24 11:20 Labs: Laboratory Results - last 24 hr 10/25/24 10:53 WBC 10.4 RBC 3.71 L Hgb 10.2 L Hct 31.9 L MCV 85.9 MCH 27.5 MCHC 32.0 RDW 16.6 H Plt Count 211 Neut % (Auto) 77.6 H Lymph % (Auto) 12.2 L [place] % (Auto) 9.3 Eos % (Auto) 0.7 L Baso % (Auto) 0.2 Neut # (Auto) 8100 H Lymph # (Auto) 1300 [place] # (Auto) 1000 H Eos # (Auto) 100 Baso # (Auto) 0 Sodium 139 Potassium 3.8 Chloride 98 Carbon Dioxide 39 H BUN 21 H Creatinine 0.83 Estimated GFR > 60 BUN/Creatinine Ratio 25.3 H Glucose 149 H Calcium 8.7 PFSH Medical History Lung nodule seen on imaging study History of tobacco abuse Fatigue Ventricular tachycardia (paroxysmal) Anemia Palpitations GERD with stricture HTN (hypertension) Insomnia (~2015) Hyperlipidemia (~2015) Anxiety (~2015) COPD (chronic obstructive pulmonary disease) (~2013) Asthma (Unknown) TIA (transient ischemic attack) (05/2014) Hematuria (~2014) Surgical History No pertinent past surgical history Family History Mother Age: 86 Hypertension Sister Age: 69 Cancer Social History household members: none Smoking Status: Current every day smoker Tobacco: How many years used: 47 quit status: considering quitting second hand exposure: No alcohol intake: former substance use type: does not use Assessment & Plan Assessment & Plan narrative: 1. Acute Sigmoid Diverticulitis, present on admission and active. This is recurrent after being treated in September of this year. He is doing well and no longer needs be in the hospital. Continue oral antibiotics. 2. Chronic constipation, present on admission and active. - continue lactulose 3. COPD with exacerbation, and RUL bacterial PNA, present on admission and improving. - continue prednisone 40 mg daily, at baseline O2 use but dyspnic with minimal exertion. 4. Chronic hypoxic respiratory failure, present on admission and active. 5. Anemia, present on admission and active. 6. HLD, present on admission and active. PLAN: - discharge home - see DC summary from 10/28 JAYMIE: 10/28 PROFEE In Flight Technician Document charge(s): No Charge Codes Subsequent inpatient/observation care: [id number]
[2024-10-30] MEDS: MAG HYDROX/ALUM/SIMETH 30 ML UDC PO (08:23)
[2024-10-30] MEDS: FERROUS SULFATE 325 MG TABLET PO (08:25)
[2024-10-30] MEDS: CYANOCOBALAMIN (VITAMIN B-12) 500 MCG TABLET 1000 MCG PO (08:25)
[2024-10-30] MEDS: ENOXAPARIN 40 MG/0.4 ML SYRINGE SUBCUT (08:26)
[2024-10-30] MEDS: predniSONE 20 MG TABLET 40 MG PO (08:26)
[2024-10-30] MEDS: MULTIVITAMIN 1 TABLET 1 TAB PO (08:26)
[2024-10-30] MEDS: clonazePAM 0.5 MG TABLET PO (08:26)
[2024-10-30] MEDS: ASCORBIC ACID 500 MG TABLET PO (08:26)
[2024-10-30] MEDS: AMOXICILLIN/CLAV 875/125 MG 1 TAB PO (08:26)
[2024-10-30] MEDS: BENZONATATE 100 MG CAPSULE PO (08:37)
[2024-10-30] MEDS: guaiFENesin Solution 100 MG/5 ML UDC 200 MG PO (08:37)
--- NOTE | 2024-10-30 08:42 | CM.DPC ---
DCP Discharge Home with HH MARGO received the fax confirmation from [facility] on the determination of pt's appeal (case #[id number]) of his discharge and they are in agreement of pt being medically stable to discharge the hospital. Pt was notified of their determination on 10/29/24 at 1845 and pt to discharge the hospital by today 10/30/24 by noon or responsible for financial cost. MARGO met bedside with pt and [facility] and pt confirms he is aware of their determination and that his family plans to provide transport home this morning before noon and he confirms he would like [facility] services again at d/c. MARGO updated RN and RT. Julia already provided with pt's d/c summary, F2F, and orders. MARGO sent email just updating them that pt discharging home today. MARGO faxed d/c summary to JENNIFER for his CM to review. GILDA Gutierrez
[2024-10-30 09:03] VITALS: PULSE 93; RESP 16; O2SAT 98
[2024-10-30] MEDS: BUDESONIDE 0.5 MG/2 ML NEB INH (09:03)
[2024-10-30] MEDS: ALBUTEROL 2.5 MG/3 ML NEB (ADULT) INH (09:03)
--- NOTE | 2024-10-30 10:54 | PC.NURSE ---
Patient is A&OX4, on 2LNC, VSS. He expresses readiness to discharge today. MD medically cleared patient for discharge. 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 He is escorted to private vehicle for dishcharge home today at 11 a.m. with sisters with all of his belongings including portable 02 tanks.
== END 2024-10-30 10:57 | disposition home health service (06) | DRG 391 ==
LOC: ED 09:28 → AC 10:30
PROVIDERS: Admitting Provider Internal Medicine; Emergency Provider Family Medicine; PCP Family Medicine; Referring Provider Family Medicine; Visit Provider Internal Medicine
DX: K57.32 Diverticulitis of large intestine without perforation or abscess without bleeding (principal); J15.9 Unspecified bacterial pneumonia; J44.0 Chronic obstructive pulmonary disease with (acute) lower respiratory infection; J44.1 Chronic obstructive pulmonary disease with (acute) exacerbation; J96.11 Chronic respiratory failure with hypoxia; F17.200 Nicotine dependence, unspecified, uncomplicated; K59.09 Other constipation; D64.9 Anemia, unspecified; E78.5 Hyperlipidemia, unspecified; Z79.52 Long term (current) use of systemic steroids; Z99.81 Dependence on supplemental oxygen
CPT/HCPCS: 0241U; 36415; 71045; 74176; 80048; 80053; 83605; 83880; 84145; 84484; 85025; 85610; 87040; 93005; 93010; 94640; 94760; 96361; 96365; 96367; 96375; 97129; 97130; 97161; 97166; 97530; 97535; 99285; 99406; J0696; J1171; J1650; J2405; J2543; J2919; J7613

== ENCOUNTER 2024-11-14 08:41 | Emergency (ER) | payer MEDICARE, MEDICAID, SELFPAY ==
[2024-10-23 12:37] VITALS: BMI 24.0
[2024-11-14] VITALS (23 sets, daily range): BP systolic 107–141; BP diastolic 55–70; PULSE 82–114; RESP 18–30; TEMP 37.2; O2SAT 94–99; BMI 24.2
[2024-11-14 09:04] LABS: Add Manual Diff / Slide Review NO; Basophils Absolute Auto 0 /uL (0-100); Basophils Percent Auto 0.1 % (0-2); Eosinophils Absolute Auto 0 /uL (0-450); Eosinophils Percent Auto 0.1 % (2-4); Hematocrit 35.7 % (41-53); Hemoglobin 11.1 g/dL (13.5-17.5); Lymphocytes Absolute Auto 1400 /uL (1100-4500); Lymphocytes Percent Auto 7.6 % (25-40); Mean Corpuscular HGB Conc 31.1 % (30-36); Mean Corpuscular Volume 86.9 fL (80-100); Monocytes Absolute Auto 2600 /uL (0-900); Monocytes Percent Auto 14.1 % (3-14); Neutrophils Absolute Auto 14300 /uL (1500-7000); Neutrophils Percent Auto 78.1 % (50-75); Platelet Count 191 X10^3/uL (150-400); Red Cell Distribution Width 16.7 % (11.6-14.8); White Blood Cell Count 18.4 X10^3/uL (4.5-11.0)
--- NOTE | 2024-11-14 09:07 | ED.SOB ---
HPI - SOB/Dyspnea <Taylor Will, DO - Last Filed: 11/18/24 07:30> General Chief Complaint: Shortness of Breath/Dyspnea Stated Complaint: SOB Time Seen by Provider: 11/14/24 08:54 Source: patient and EMS Mode of arrival: EMS Limitations: no limitations History of Present Illness HPI Narrative: Patient is a 63-year-old male history of COPD oxygen dependent uses 2 L nasal cannula continues to have shortness of breath and productive sputum. Was recently admitted October 23 through October 28, currently finishing off antibiotics. He reports he was finishing up a antibiotics now currently on a long taper of prednisone. Just overall continues to feel weak and short of breath. No significant chest pain. Feels like the fevers have stopped. Just generally not feeling like he was recovering or feeling well. Related Data Home Medications Medication Instructions Recorded Confirmed ascorbate calcium (vitamin C) 500 500 mg PO DAILY 08/06/23 11/14/24 mg tablet aluminum-mag hydroxide-simethicone 20 ml PO BID 05/14/24 11/14/24 400 mg-400 mg-40 mg/5 mL oral susp multivitamin with minerals-folic 1 tab PO DAILY 05/14/24 11/14/24 acid 0.4 mg tablet nystatin 100,000 unit/mL oral 5 ml PO QID PRN thrush 05/14/24 11/14/24 suspension cetirizine 10 mg tablet 10 mg PO BEDTIME allergy/asthma 08/25/24 11/14/24 guaifenesin 100 mg/5 mL oral liquid 200 mg PO Q4H PRN cough 08/25/24 11/14/24 mecobalamin (vitamin B12) 1,000 1,000 mcg PO DAILY 08/25/24 11/14/24 mcg chewable tablet acetaminophen 500 mg tablet 500 mg PO Q6H PRN Pain (Scale 10/31/24 11/14/24 Score 1-3) polyethylene glycol 3350 17 17 g PO DAILY 10/31/24 11/14/24 gram/dose oral powder Previous Rx's Medication Instructions Recorded ferrous gluconate 324 mg (38 mg 324 mg PO DAILY #90 tabs 03/28/24 iron) tablet Disabled Parking Permint #1 ea 07/01/24 mometasone-formoterol HFA 200 2 puff PO BID #13 grams 07/22/24 mcg-5 mcg/actuation aerosol inhaler (Dulera) clonazepam 0.5 mg tablet 0.5 mg PO TID #90 tabs 08/25/24 nitroglycerin 0.3 mg sublingual 0.3 mg sublingual Q5-15M PRN chest 08/25/24 tablet pain #20 tabs simvastatin 20 mg tablet 20 mg PO QPM #90 tabs 08/25/24 albuterol sulfate 2.5 mg/3 mL 2.5 mg (3 mL) inhalation QID PRN 09/09/24 (0.083 %) solution for nebulization shortness of breath or wheezing #180 mL albuterol sulfate 90 mcg/actuation 1 - 2 puff PO Q4H PRN for wheezing 09/09/24 aerosol inhaler (Ventolin HFA) #54 grams ipratropium bromide 0.02 % 2.5 ml inhalation QID PRN 09/09/24 solution for inhalation shortness of breath or wheezing #150 mL montelukast 10 mg tablet 10 mg PO BEDTIME #90 tabs 10/11/24 amoxicillin 875 mg-potassium 1 tab PO BID #28 tabs 10/28/24 clavulanate 125 mg tablet hydrocodone 5 mg-acetaminophen 325 2 tab PO Q4H PRN Pain, Severe 10/28/24 mg tablet (7-10) #20 tabs metronidazole 500 mg tablet 500 mg PO Q8H #42 tabs 10/28/24 ondansetron 4 mg disintegrating 4 mg PO Q8H PRN nausea and 10/28/24 tablet vomiting #14 tabs benzonatate 100 mg capsule 100 mg PO BID-TID PRN Cough #270 11/01/24 caps prednisone 10 mg tablet See Rx Instructions PO .COMPLEX 11/01/24 #76 tabs piperacillin-tazobactam 3.375 3.375 g (56.25 mL) IV Q8H 10 days 11/15/24 gram/50 mL dextrose(iso-os) IV piggyback (Zosyn) Allergies Allergy/AdvReac Type Severity Reaction Status Date / Time cinnamon [CINNAMON] Allergy Severe RESP Verified 11/14/24 08:52 PROBLEMS AND SWELLING Sulfa (Sulfonamide Allergy Severe anaphylacti Verified 11/14/24 08:52 Antibiotics) c [SULFA (SULFONAMIDE ANTIBIOTICS)] fluticasone [FLUTICASONE] Allergy Intermediate FEELS Verified 11/14/24 08:52 LIKE FIRE IN THE LUNGS trimethoprim [TRIMETHOPRIM] Allergy Unknown Patient Verified 11/14/24 08:52 can't remember dextromethorphan AdvReac Severe Difficulty Verified 11/14/24 08:52 Breathing fentanyl AdvReac Severe Difficulty Verified 11/14/24 08:52 Breathing codeine [CODEINE] AdvReac Intermediate violent Verified 11/14/24 08:52 doxycycline [DOXYCYCLINE] AdvReac Mild N/V Verified 11/14/24 08:52 Patient History <Taylor Solis DO - Last Filed: 11/18/24 07:30> Medical History Lung nodule seen on imaging study History of tobacco abuse Fatigue Ventricular tachycardia (paroxysmal) Anemia Palpitations GERD with stricture HTN (hypertension) Insomnia (~2015) Hyperlipidemia (~2015) Anxiety (~2015) COPD (chronic obstructive pulmonary disease) (~2013) Asthma (Unknown) TIA (transient ischemic attack) (05/2014) Hematuria (~2014) Surgical History No pertinent past surgical history Family History Mother Age: 86 Hypertension Sister Age: 69 Cancer Social History household members: none Smoking Status: Current every day smoker Tobacco: How many years used: 47 quit status: considering quitting second hand exposure: No alcohol intake: former substance use type: does not use Smoking Status: Current every day smoker tobacco type: cigarettes alcohol intake frequency: holidays/special occasions only Exam <Taylor Solis DO - Last Filed: 11/18/24 07:30> Initial Vital Signs Initial Vital Signs: Vital Signs Blood Pressure 126/58 L 11/14/24 08:43 GENERAL: Alert pleasant 63-year-old male and in no acute distress. HEENT: Head atraumatic,EOMI, pupils reactive, face symmetric, moist mucous membranes CARDIOVASCULAR: Regular rate and rhythm without murmurs, rubs or gallops. RESPIRATORY: Decreased breath sounds bilaterally no significant respiratory distress ABDOMEN: Soft, nontender. Normoactive bowel sounds all 4 quadrants. No guarding or rebound. EXTREMITIES: Normal range of motion, no clubbing or edema. Neurovascularly intact NEUROLOGICAL: Alert and oriented x4.Normal gait and speech. Cranial nerves II through XII grossly intact. SKIN: Warm, dry, no laceration, no petechiae, no rashes or lesions. <Sanjeev Jaramillo MD - Last Filed: 11/15/24 15:07> Initial Vital Signs Initial Vital Signs: Vital Signs Blood Pressure 126/58 L 11/14/24 08:43 Course <Taylor Solis DO - Last Filed: 11/18/24 07:30> Orders Ordered: Discontinued Medications Albuterol/Ipratropium (Albuterol/Ipratropium 3 Ml Ampul) 3 ml INH NOW ONE Stop: 11/14/24 13:01 Last Admin: 11/14/24 13:05 Dose: 3 ml Documented By: MARIA R Albuterol/Ipratropium (Albuterol/Ipratropium 3 Ml Ampul) 3 ml INH RTQ4HR PRN PRN Reason: Shortness Of Breath Last Admin: 11/15/24 11:47 Dose: 3 ml Documented By: MARIA R Admin: 11/15/24 05:54 Dose: 3 ml Documented By: Admin: 11/14/24 18:26 Dose: 3 ml Documented By: ALBERTO Benzonatate (Benzonatate 100 Mg Capsule) 100 mg PO NOW ONE Stop: 11/15/24 09:41 Last Admin: 11/15/24 09:47 Dose: 100 mg Documented By: Clonazepam (Clonazepam 0.5 Mg Tablet) 0.5 mg PO BID [facility] Last Admin: 11/15/24 08:33 Dose: Not Given Documented By: Admin: 11/15/24 05:52 Dose: 0.5 mg Documented By: Admin: 11/14/24 20:11 Dose: Not Given Documented By: Admin: 11/14/24 18:30 Dose: 0.5 mg Documented By: CASSANDRA Guaifenesin (Guaifenesin Solution 100 Mg/5 Ml Udc) 200 mg PO NOW ONE Stop: 11/15/24 09:41 Last Admin: 11/15/24 09:47 Dose: 200 mg Documented By: Piperacillin Sod/Tazobactam (Sod 4.5 gm/ Sodium Chloride) 100 mls @ 200 mls/hr IV NOW ONE Stop: 11/14/24 17:51 Last Infusion: 11/14/24 19:48 Dose: Infused Documented By: Admin: 11/14/24 18:59 Dose: 200 mls/hr Documented By: CASSANDRA Piperacillin Sod/Tazobactam (Sod 3.375 gm/ Sodium Chloride) 100 mls @ 200 mls/hr IV Q8H [facility] Piperacillin Sod/Tazobactam (Sod 3.375 gm/ Sodium Chloride) 100 mls @ 25 mls/hr IV Q8H [facility] Last Admin: 11/15/24 11:52 Dose: 25 mls/hr Documented By: Methylprednisolone (Methylprednisolone 125 Mg/2 Ml Vial) 125 mg IV NOW ONE Stop: 11/14/24 08:55 Last Admin: 11/14/24 09:14 Dose: 125 mg Documented By: JANEL Prednisone (Prednisone 20 Mg Tablet) 15 mg PO DAILY [facility] Last Admin: 11/15/24 09:30 Dose: 15 mg Documented By: Vital Signs Vital signs: Vital Signs - 8 hr 11/15/24 07:48 11/15/24 07:49 11/15/24 07:52 Temperature 97.4 F L Pulse Rate 90 90 Respiratory Rate 24 Blood Pressure 126/62 Blood Pressure [Left Arm] 126/62 Pulse Oximetry 99 99 Oxygen Delivery Method Nasal Cannula Nasal Cannula Oxygen Flow Rate 2 2 Fraction of Inspired Oxygen 11/15/24 08:23 11/15/24 10:37 11/15/24 10:38 Temperature Pulse Rate 103 H 102 H 100 H Respiratory Rate Blood Pressure Blood Pressure [Left Arm] Pulse Oximetry 95 94 94 Oxygen Delivery Method Oxygen Flow Rate Fraction of Inspired Oxygen 11/15/24 10:38 11/15/24 11:47 Temperature Pulse Rate 104 H Respiratory Rate 20 Blood Pressure 139/68 Blood Pressure [Left Arm] Pulse Oximetry 96 Oxygen Delivery Method Nasal Cannula Oxygen Flow Rate 2 Fraction of Inspired Oxygen 28 <Sanjeev Jaramillo MD - Last Filed: 11/15/24 15:07> Orders Ordered: Discontinued Medications Albuterol/Ipratropium (Albuterol/Ipratropium 3 Ml Ampul) 3 ml INH NOW ONE Stop: 11/14/24 13:01 Last Admin: 11/14/24 13:05 Dose: 3 ml Documented By: MARIA R Albuterol/Ipratropium (Albuterol/Ipratropium 3 Ml Ampul) 3 ml INH RTQ4HR PRN PRN Reason: Shortness Of Breath Last Admin: 11/15/24 11:47 Dose: 3 ml Documented By: MARIA R Admin: 11/15/24 05:54 Dose: 3 ml Documented By: Admin: 11/14/24 18:26 Dose: 3 ml Documented By: ALBERTO Benzonatate (Benzonatate 100 Mg Capsule) 100 mg PO NOW ONE Stop: 11/15/24 09:41 Last Admin: 11/15/24 09:47 Dose: 100 mg Documented By: Clonazepam (Clonazepam 0.5 Mg Tablet) 0.5 mg PO BID [facility] Last Admin: 11/15/24 08:33 Dose: Not Given Documented By: Admin: 11/15/24 05:52 Dose: 0.5 mg Documented By: Admin: 11/14/24 20:11 Dose: Not Given Documented By: Admin: 11/14/24 18:30 Dose: 0.5 mg Documented By: CASSANDRA Guaifenesin (Guaifenesin Solution 100 Mg/5 Ml Udc) 200 mg PO NOW ONE Stop: 11/15/24 09:41 Last Admin: 11/15/24 09:47 Dose: 200 mg Documented By: Piperacillin Sod/Tazobactam (Sod 4.5 gm/ Sodium Chloride) 100 mls @ 200 mls/hr IV NOW ONE Stop: 11/14/24 17:51 Last Infusion: 11/14/24 19:48 Dose: Infused Documented By: Admin: 11/14/24 18:59 Dose: 200 mls/hr Documented By: CASSANDRA Piperacillin Sod/Tazobactam (Sod 3.375 gm/ Sodium Chloride) 100 mls @ 200 mls/hr IV Q8H ROBERT Piperacillin Sod/Tazobactam (Sod 3.375 gm/ Sodium Chloride) 100 mls @ 25 mls/hr IV Q8H [facility] Last Admin: 11/15/24 11:52 Dose: 25 mls/hr Documented By: Methylprednisolone (Methylprednisolone 125 Mg/2 Ml Vial) 125 mg IV NOW ONE Stop: 11/14/24 08:55 Last Admin: 11/14/24 09:14 Dose: 125 mg Documented By: JANEL Prednisone (Prednisone 20 Mg Tablet) 15 mg PO DAILY [facility] Last Admin: 11/15/24 09:30 Dose: 15 mg Documented By: Vital Signs Vital signs: Vital Signs - 8 hr 11/15/24 07:48 11/15/24 07:49 11/15/24 07:52 Temperature 97.4 F L Pulse Rate 90 90 Respiratory Rate 24 Blood Pressure 126/62 Blood Pressure [Left Arm] 126/62 Pulse Oximetry 99 99 Oxygen Delivery Method Nasal Cannula Nasal Cannula Oxygen Flow Rate 2 2 Fraction of Inspired Oxygen 11/15/24 08:23 11/15/24 10:37 11/15/24 10:38 Temperature Pulse Rate 103 H 102 H 100 H Respiratory Rate Blood Pressure Blood Pressure [Left Arm] Pulse Oximetry 95 94 94 Oxygen Delivery Method Oxygen Flow Rate Fraction of Inspired Oxygen 11/15/24 10:38 11/15/24 11:47 Temperature Pulse Rate 104 H Respiratory Rate 20 Blood Pressure 139/68 Blood Pressure [Left Arm] Pulse Oximetry 96 Oxygen Delivery Method Nasal Cannula Oxygen Flow Rate 2 Fraction of Inspired Oxygen 28 MDM - SOB/Dyspnea <Taylor Solis, DO - Last Filed: 11/18/24 07:30> Lab Data 11/15/24 05:42 11/15/24 05:42 Labs: Lab Results 11/14/24 11/14/24 11/14/24 Range/Units 08:30 09:15 10:54 WBC 18.4 H (4.5-11.0) X10^3/uL RBC 4.10 L (4.5-5.9) X10^6/uL Hgb 11.1 L (13.5-17.5) g/dL Hct 35.7 L (41-53) % MCV 86.9 (80-100) fL MCH 27.0 (26-34) PG MCHC 31.1 (30-36) % RDW 16.7 H (11.6-14.8) % Plt Count 191 (150-400) X10^3/uL Neut % (Auto) 78.1 H (50-75) % Lymph % (Auto) 7.6 L (25-40) % Grant % (Auto) 14.1 H (3-14) % Eos % (Auto) 0.1 L (2-4) % Baso % (Auto) 0.1 (0-2) % Neut # (Auto) 79502 H (8291-1878) /uL Lymph # (Auto) 1400 (2861-8041) /uL Grant # (Auto) 2600 H (0-900) /uL Eos # (Auto) 0 (0-450) /uL Baso # (Auto) 0 (0-100) /uL VBG pH 7.41 (7.33-7.43) VBG pCO2 62.7 H (45-50) mmHg VBG pO2 39 (35-45) mmHg VBG HCO3 39 H (24-28) mmol/L VBG Total CO2 38 H (24-29) mmol/L VBG O2 Saturation 71 (70-75) % VBG Base Excess 12.0 H (0-4) mmol/L Sodium 135 L (137-145) mmol/L Potassium 4.1 (3.4-5.1) mmol/L Chloride 96 L (98-107) mmol/L Carbon Dioxide 35 H (22-32) mmol/L BUN 16 (9-20) mg/dL Creatinine 0.89 (0.66-1.25) mg/dL Estimated GFR > 60 (>60) mL/min BUN/Creatinine Ratio 18.0 (6-22) Glucose 144 H (70-99) mg/dL Lactate 1.8 (0.7-2.1) mmol/L Calcium 9.3 (8.4-10.2) mg/dL Total Bilirubin 0.6 (0.2-1.3) mg/dL AST 38 (17-59) IU/L ALT 22 (<50) IU/L Alkaline Phosphatase 46 (38-126) U/L Total Creatine Kinase < 20 L (55-170) U/L Troponin I < 0.012 (0.01-0.034) ng/mL Total Protein 6.7 (6.3-8.2) g/dL Albumin 3.6 (3.5-5.0) g/dL Globulin 3.1 (1.7-4.1) g/dL Albumin/Globulin Ratio 1.2 (1.0-2.8) Procalcitonin 0.300 (<0.5) ng/mL SARS-CoV-2 (PCR) Negative (Negative) Influenza A (RT-PCR) Flu a negative (NEGATIVE) Influenza B (RT-PCR) Flu b negative (NEGATIVE) RSV (PCR) Negative (Negative) 11/15/24 Range/Units 05:42 WBC 9.3 (4.5-11.0) X10^3/uL RBC 3.85 L (4.5-5.9) X10^6/uL Hgb 10.5 L (13.5-17.5) g/dL Hct 33.2 L (41-53) % MCV 86.1 (80-100) fL MCH 27.1 (26-34) PG MCHC 31.5 (30-36) % RDW 16.5 H (11.6-14.8) % Plt Count 168 (150-400) X10^3/uL Neut % (Auto) 89.0 H (50-75) % Lymph % (Auto) 7.1 L (25-40) % Grant % (Auto) 3.1 (3-14) % Eos % (Auto) 0.0 L (2-4) % Baso % (Auto) 0.8 (0-2) % Neut # (Auto) 8200 H (9012-4285) /uL Lymph # (Auto) 700 L (2020-5499) /uL Grant # (Auto) 300 (0-900) /uL Eos # (Auto) 0 (0-450) /uL Baso # (Auto) 100 (0-100) /uL VBG pH (7.33-7.43) VBG pCO2 (45-50) mmHg VBG pO2 (35-45) mmHg VBG HCO3 (24-28) mmol/L VBG Total CO2 (24-29) mmol/L VBG O2 Saturation (70-75) % VBG Base Excess (0-4) mmol/L Sodium 139 (137-145) mmol/L Potassium 4.8 (3.4-5.1) mmol/L Chloride 101 (98-107) mmol/L Carbon Dioxide 35 H (22-32) mmol/L BUN 27 H (9-20) mg/dL Creatinine 0.86 (0.66-1.25) mg/dL Estimated GFR > 60 (>60) mL/min BUN/Creatinine Ratio 31.4 H (6-22) Glucose 126 H (70-99) mg/dL Lactate (0.7-2.1) mmol/L Calcium 9.2 (8.4-10.2) mg/dL Total Bilirubin 0.2 (0.2-1.3) mg/dL AST 20 (17-59) IU/L ALT 19 (<50) IU/L Alkaline Phosphatase 43 (38-126) U/L Total Creatine Kinase (55-170) U/L Troponin I (0.01-0.034) ng/mL Total Protein 6.4 (6.3-8.2) g/dL Albumin 3.3 L (3.5-5.0) g/dL Globulin 3.1 (1.7-4.1) g/dL Albumin/Globulin Ratio 1.1 (1.0-2.8) Procalcitonin (<0.5) ng/mL SARS-CoV-2 (PCR) (Negative) Influenza A (RT-PCR) (NEGATIVE) Influenza B (RT-PCR) (NEGATIVE) RSV (PCR) (Negative) Imaging Data CT scan - chest: Radiologist's Impression: PROCEDURE: CT ANGIO CHEST PE PROTOCOL INDICATIONS: sob recent hospital stay TECHNIQUE: After the administration of intravenous contrast, 2 mm thick sections acquired from the pulmonary apices to the posterior costophrenic angles. 3-dimensional maximum intensity projection (MIP) coronal and sagittal reformats were then acquired through the thorax. For radiation dose reduction, the following was used: automated exposure control, adjustment of mA and/or kV according to patient size. COMPARISON: [facility], [place], CT ANGIO CHEST PE PROTOCOL, 05/14/2024, 15:33. FINDINGS: Image quality: Diagnostic. Pulmonary arteries: Pulmonary arteries are normal in size, and demonstrate no intraluminal filling defects to suggest central pulmonary embolism. Lower Neck: No enlarged lymph nodes. Thyroid: No thyroid nodules which require sonographic follow up, per consensus guidelines. Axillae: No enlarged lymph nodes. Chest Wall: Unremarkable. Bones: Unremarkable. Lungs and Pleura: Moderate to severe centrilobular emphysema. Ill-defined airspace consolidation in posterior and lateral aspect of right upper to midlung zone is seen. Smaller airspace opacity is noted in posterior medial aspect of left lower lobe and posterior medial aspect of right lower lobe near right lung base. No pleural effusion or pneumothorax. Previously described 13 mm medial right lower lobe nodule is no longer seen. Interval development of small nodular densities in posterior and lateral periphery of right lower lobe measures up to 6 mm in size series 5, image 192. Heart: Heart size is enlarged. No pericardial effusion. Thoracic Vessels: No aortic aneurysm. Mild to moderate 2 vessel coronary artery atherosclerotic calcifications. Mediastinum and Cristle: No enlarged lymph nodes. Esophagus: No wall thickening. Small hiatal hernia. Upper Abdomen: Visualized upper abdomen solid organs and bowel loops appear normal. IMPRESSION: 1. No pulmonary embolus. No thoracic aortic aneurysm or gross dissection. 2. Interval further worsening of aeration in posterior and lateral aspect of right upper to mid lung zone with concerning for infiltrate/atelectasis. Additional smaller airspace opacities in anterior medial aspect of left upper lobe and posterior medial aspect of bilateral lower lobes as above. Short-term CT chest follow-up in 3 months is recommended. 3. Previously noted 1.3 cm medial right lower lobe nodule is no longer seen. Interval development of several small nodules in posterior and lateral periphery of right lower lobe measures up to 6 mm in size. These can also be followed on subsequent CT chest study. 4. Moderate to severe centrilobular emphysema. No pleural effusion or pneumothorax. 5. Cardiomegaly, no pericardial effusion. No mediastinal or hilar lymphadenopathy by size criteria. Small hiatal hernia. Dictated by: Giuseppe Fonseca M.D. on 11/14/2024 at 9:52 ECG Data Attestation: I personally reviewed and interpreted this ECG as follows: Prior ECG tracings: available for review Interpretation: Sinus rhythm rate 108 SC interval 130 QRS [address] changes or T-wave inversions similar to prior MDM Narrative Medical decision making narrative: MDM CC: Shortness of breath Complicating co-morbidities: Chronic COPD on chronic home O2 frequent admission Data collected from: Patient record Medical records reviewed: Recent admission October 23 through October 30, was here with diverticulitis, anemia Differential considered: COPD exacerbation pneumonia pulmonary embolism anemia CHF ACS Exam documented above, pertinent findings include: Mild tachypnea decreased breath sounds bilaterally no conversational dyspnea abdomen soft no significant peripheral edema Lab Test results independently reviewed as above. Pertinent findings: WBC 18.4, 10.7 on 10/26/24 Lactate 1.8, procalcitonin 0.3 CMP, no electrolyte abnormality Troponin negative Independently reviewed EKG as above Imaging studies independently reviewed: CT angio-no pulmonary embolus, worsening variation posterior lateral aspect of right and mid lung zone concerning for ill to infiltrate versus atelectasis additional airspace opacities. Moderate to severe central lobar emphysema Consultations: [ ] Treatments: Bronchodilators Solu-Medrol Zosyn Re-evaluations: Patient is breathing better after albuterol no respiratory distress on home dose of oxygen Discussion: Patient is a 63-year-old male with chronic COPD presenting today with increasing shortness of breath. He has had admissions he was frequent ED visits. I suspect he has worsening disease process. He was hence leukocytosis he was on prednisone but it is higher than what it was previously. He took his last dose of Augmentin today while in the emergency department for his diverticulitis. He does not have any evidence of sepsis he has a normal lactate, nonetheless blood cultures are pending. He overall appears well nontoxic. Family at bedside concerned he is more than what they can care for at home. He was previously offered placement but declined. But now was agreeable to go. Social work evaluation able to get into [facility] tomorrow. Singed out to Dr. Couch <Sanjeev Jaramillo MD - Last Filed: 11/15/24 15:07> Lab Data Labs: Lab Results 11/14/24 11/14/24 11/14/24 Range/Units 08:30 09:15 10:54 WBC 18.4 H (4.5-11.0) X10^3/uL RBC 4.10 L (4.5-5.9) X10^6/uL Hgb 11.1 L (13.5-17.5) g/dL Hct 35.7 L (41-53) % MCV 86.9 (80-100) fL MCH 27.0 (26-34) PG MCHC 31.1 (30-36) % RDW 16.7 H (11.6-14.8) % Plt Count 191 (150-400) X10^3/uL Neut % (Auto) 78.1 H (50-75) % Lymph % (Auto) 7.6 L (25-40) % Grant % (Auto) 14.1 H (3-14) % Eos % (Auto) 0.1 L (2-4) % Baso % (Auto) 0.1 (0-2) % Neut # (Auto) 13300 H (3615-4123) /uL Lymph # (Auto) 1400 (0339-8453) /uL Grant # (Auto) 2600 H (0-900) /uL Eos # (Auto) 0 (0-450) /uL Baso # (Auto) 0 (0-100) /uL VBG pH 7.41 (7.33-7.43) VBG pCO2 62.7 H (45-50) mmHg VBG pO2 39 (35-45) mmHg VBG HCO3 39 H (24-28) mmol/L VBG Total CO2 38 H (24-29) mmol/L VBG O2 Saturation 71 (70-75) % VBG Base Excess 12.0 H (0-4) mmol/L Sodium 135 L (137-145) mmol/L Potassium 4.1 (3.4-5.1) mmol/L Chloride 96 L (98-107) mmol/L Carbon Dioxide 35 H (22-32) mmol/L BUN 16 (9-20) mg/dL Creatinine 0.89 (0.66-1.25) mg/dL Estimated GFR > 60 (>60) mL/min BUN/Creatinine Ratio 18.0 (6-22) Glucose 144 H (70-99) mg/dL Lactate 1.8 (0.7-2.1) mmol/L Calcium 9.3 (8.4-10.2) mg/dL Total Bilirubin 0.6 (0.2-1.3) mg/dL AST 38 (17-59) IU/L ALT 22 (<50) IU/L Alkaline Phosphatase 46 (38-126) U/L Total Creatine Kinase < 20 L (55-170) U/L Troponin I < 0.012 (0.01-0.034) ng/mL Total Protein 6.7 (6.3-8.2) g/dL Albumin 3.6 (3.5-5.0) g/dL Globulin 3.1 (1.7-4.1) g/dL Albumin/Globulin Ratio 1.2 (1.0-2.8) Procalcitonin 0.300 (<0.5) ng/mL SARS-CoV-2 (PCR) Negative (Negative) Influenza A (RT-PCR) Flu a negative (NEGATIVE) Influenza B (RT-PCR) Flu b negative (NEGATIVE) RSV (PCR) Negative (Negative) 11/15/24 Range/Units 05:42 WBC 9.3 (4.5-11.0) X10^3/uL RBC 3.85 L (4.5-5.9) X10^6/uL Hgb 10.5 L (13.5-17.5) g/dL Hct 33.2 L (41-53) % MCV 86.1 (80-100) fL MCH 27.1 (26-34) PG MCHC 31.5 (30-36) % RDW 16.5 H (11.6-14.8) % Plt Count 168 (150-400) X10^3/uL Neut % (Auto) 89.0 H (50-75) % Lymph % (Auto) 7.1 L (25-40) % Grant % (Auto) 3.1 (3-14) % Eos % (Auto) 0.0 L (2-4) % Baso % (Auto) 0.8 (0-2) % Neut # (Auto) 8200 H (4131-0922) /uL Lymph # (Auto) 700 L (8186-6129) /uL Grant # (Auto) 300 (0-900) /uL Eos # (Auto) 0 (0-450) /uL Baso # (Auto) 100 (0-100) /uL VBG pH (7.33-7.43) VBG pCO2 (45-50) mmHg VBG pO2 (35-45) mmHg VBG HCO3 (24-28) mmol/L VBG Total CO2 (24-29) mmol/L VBG O2 Saturation (70-75) % VBG Base Excess (0-4) mmol/L Sodium 139 (137-145) mmol/L Potassium 4.8 (3.4-5.1) mmol/L Chloride 101 (98-107) mmol/L Carbon Dioxide 35 H (22-32) mmol/L BUN 27 H (9-20) mg/dL Creatinine 0.86 (0.66-1.25) mg/dL Estimated GFR > 60 (>60) mL/min BUN/Creatinine Ratio 31.4 H (6-22) Glucose 126 H (70-99) mg/dL Lactate (0.7-2.1) mmol/L Calcium 9.2 (8.4-10.2) mg/dL Total Bilirubin 0.2 (0.2-1.3) mg/dL AST 20 (17-59) IU/L ALT 19 (<50) IU/L Alkaline Phosphatase 43 (38-126) U/L Total Creatine Kinase (55-170) U/L Troponin I (0.01-0.034) ng/mL Total Protein 6.4 (6.3-8.2) g/dL Albumin 3.3 L (3.5-5.0) g/dL Globulin 3.1 (1.7-4.1) g/dL Albumin/Globulin Ratio 1.1 (1.0-2.8) Procalcitonin (<0.5) ng/mL SARS-CoV-2 (PCR) (Negative) Influenza A (RT-PCR) (NEGATIVE) Influenza B (RT-PCR) (NEGATIVE) RSV (PCR) (Negative) MDM Narrative Medical decision making narrative: MDM CC: Shortness of breath Complicating co-morbidities: Chronic COPD on chronic home O2 frequent admission Data collected from: Patient record Medical records reviewed: Recent admission October 23 through October 30, was here with diverticulitis, anemia Differential considered: COPD exacerbation pneumonia pulmonary embolism anemia CHF ACS Exam documented above, pertinent findings include: Mild tachypnea decreased breath sounds bilaterally no conversational dyspnea abdomen soft no significant peripheral edema Lab Test results independently reviewed as above. Pertinent findings: WBC 18.4, 10.7 on 10/26/24 Lactate 1.8, procalcitonin 0.3 CMP, no electrolyte abnormality Troponin negative Independently reviewed EKG as above Imaging studies independently reviewed: CT angio-no pulmonary embolus, worsening variation posterior lateral aspect of right and mid lung zone concerning for ill to infiltrate versus atelectasis additional airspace opacities. Moderate to severe central lobar emphysema Consultations: [ ] Treatments: Bronchodilators Solu-Medrol Zosyn Re-evaluations: Patient is breathing better after albuterol no respiratory distress on home dose of oxygen Discussion: Patient is a 63-year-old male with chronic COPD presenting today with increasing shortness of breath. He has had admissions he was frequent ED visits. I suspect he has worsening disease process. He was hence leukocytosis he was on prednisone but it is higher than what it was previously. He took his last dose of Augmentin today while in the emergency department for his diverticulitis. He does not have any evidence of sepsis he has a normal lactate, nonetheless blood cultures are pending. He overall appears well nontoxic. Family at bedside concerned he is more than what they can care for at home. He was previously offered placement but declined. But now was agreeable to go. Social work evaluation able to get [facility] tomorrow. Singed out to Dr. Khoa Jaramillo: November 15, 2024 at 11:12 a.m.. I am asked by nursing staff and social work to review patient's chart. There is information to be reviewed before patient can be transferred to [facility]. Whether patient needs IV antibiotics to go to the facility[facility]. Start of my shift today at 7:00 a.m.. Report was that patient was being transferred today. No further information. I am reviewing patient's chart and given patient's CT scan imaging, patient may need continued IV Zosyn. He was only given 1 dose of Zosyn here. 4.5 g. At did speak with patient, he has been diagnosed many times before with pneumonia. It is no surprise. He already finished Augmentin recently without success. He is chronically on nasal cannula oxygen. I will write for Zosyn 3.375 g q.8 hours for 3 days. Review of chart there is no discharge plan. No SNF orders were placed for discharge. No diagnosis no disposition on patient's chart Dr. Jaramillo: 11:25 a.m.. I spoke with hospitalist here, Dr. Martinez, would typically give IV Zosyn 10 days. At this time I will prescribe Zosyn 3.375 g q.8 hours, duration 10 days Patient has community-acquired pneumonia requiring IV antibiotics and prison Discharge Plan Departure Patient Disposition: SNF Clinical Impression: Acute exacerbation of chronic obstructive airways disease Community acquired pneumonia Qualifiers: Laterality: unspecified laterality Qualified Code(s): J18.9 - Pneumonia, unspecified organism Prescriptions: New Zosyn in dextrose (iso-osm) 3.375 gram/50 mL piggyback 3.375 g IV Q8H 10 Days No Action (DME) Disabled Parking Permint See Rx Instructions .ROUTE .MEDSUPPLY Qty: 1 0RF Rx Instructions: I find this patient to be medically disabled and qualified for Disabled Parking as indicated and signed on the Accompanying Disabled Parking Application for individuals. Dulera 200-5 mcg/actuation HFA aerosol inhaler 2 puff PO BID Qty: 13 5RF cetirizine 10 mg tablet 10 mg PO BEDTIME clonazepam 0.5 mg tablet 0.5 mg PO TID Qty: 90 3RF Rx Instructions: 08/25/24:Mak states he is only taking the Clonazepam twice daily on a regular basis but needs the option to take it TID if needed when anxiety is especially high. guaifenesin 100 mg/5 mL liquid 200 mg PO Q4H PRN (Reason: cough) nitroglycerin 0.3 mg tablet, sublingual 0.3 mg sublingual Q5-15M PRN (Reason: chest pain) Qty: 20 0RF Rx Instructions: do not exceed 3 doses per episode simvastatin 20 mg tablet 20 mg PO QPM Qty: 90 3RF albuterol sulfate 2.5 mg /3 mL (0.083 %) solution for nebulization 2.5 mg inhalation QID PRN (Reason: shortness of breath or wheezing) Qty: 180 11RF albuterol sulfate [Ventolin HFA] 90 mcg/actuation HFA aerosol inhaler 1 - 2 puff PO Q4H PRN (Reason: for wheezing) Qty: 54 11RF ipratropium bromide 0.02 % solution 2.5 ml inhalation QID PRN (Reason: shortness of breath or wheezing) Qty: 150 11RF montelukast 10 mg tablet 10 mg PO BEDTIME Qty: 90 3RF benzonatate 100 mg capsule 100 mg PO BID-TID PRN (Reason: Cough) Qty: 270 1RF ascorbate calcium (vitamin C) 500 mg tablet 500 mg PO DAILY ferrous gluconate 324 mg (38 mg iron) tablet 324 mg PO DAILY Qty: 90 1RF polyethylene glycol 3350 17 gram/dose powder 17 g PO DAILY acetaminophen 500 mg tablet 500 mg PO Q6H PRN (Reason: Pain (Scale Score 1-3)) mecobalamin (vitamin B12) 1,000 mcg tablet,chewable 1,000 mcg PO DAILY alum-mag hydroxide-simeth 400-400-40 mg/5 mL Suspension 20 ml PO BID MDD 120 ml Rx Instructions: [employer] Brand Mylanta Gas -- 400 mg Aluminum Hydroxide, 400mg Magnesium Hydroxide, 40mg Simethicone/10 ml (Suspension) 10 to 20 ml PRN with/after meals & bedtime as needed for heartburn/gas relief by Mouth Max dose 120 ml total/24 hours multivit with min-folic acid 0.4 mg Tablet 1 tab PO DAILY nystatin 100,000 unit/mL suspension 5 ml PO QID PRN (Reason: thrush) amoxicillin-pot clavulanate 875-125 mg tablet 1 tab PO BID Qty: 28 0RF metronidazole 500 mg tablet 500 mg PO Q8H Qty: 42 0RF hydrocodone-acetaminophen 5-325 mg Tablet 2 tab PO Q4H PRN (Reason: Pain, Severe (7-10)) Qty: 20 0RF ondansetron 4 mg tablet,disintegrating 4 mg PO Q8H PRN (Reason: nausea and vomiting) Qty: 14 0RF prednisone 10 mg tablet See Rx Instructions PO .COMPLEX Qty: 76 0RF Patient Comments: 15mg starts 11/15/24 Rx Instructions: 30mg oral daily for 7 days then 20mg oral daily for 7 days then 15mg oral daily for 7 days then 10mg oral daily indefinitely SNF Discharge Plan Transfer to: [facility] Transportation: Wheelchair I certify the postop hospital prison care is medically necessary on a continuing basis for any conditions for which he/ she received care during this hospitalization.: Yes The receiving facility has agreed to accept transfer and provide medical treatment.: Yes Diet/Activity/Treatments Diet: Regular Food texture: Regular Skin/Wound/Dressing Care Report to your healthcare provider any signs of infection, such as: chills, fever and increased pain Special Rehabilitation Services Reason for rehabilitation: Other
--- NOTE | 2024-11-14 09:11 | EKG_ITS ---
[facility] [address] [place] [address] Test Date: 2024-11-14 Pat Name: Mak Rose Department: [facility] Room: Gender: Male Hide Dropper: SHONDA : 1960 Requested By: Order Number: [id number] Reading MD: Nicko Thurman MD Measurements Intervals [place] Rate: 108 P: 69 CO: 130 QRS: 68 QRSD: 96 T: 42 QT: 324 QTc: 434 Interpretive Statements Sinus tachycardia with premature atrial complexes Electronically Signed On 11-14-2024 11:03:53 PDT by Nicko Thurman MD
[2024-11-14 09:12] LABS: Alanine Aminotransferase 22 IU/L (<50); Albumin 3.6 g/dL (3.5-5.0); Albumin Globulin Ratio 1.2 (1.0-2.8); Alkaline Phosphatase 46 U/L (38-126); Aspartate Aminotransferase 38 IU/L (17-59); Bilirubin Total 0.6 mg/dL (0.2-1.3); Blood Urea Nitrogen 16 mg/dL (9-20); Calcium 9.3 mg/dL (8.4-10.2); Carbon Dioxide 35 mmol/L (22-32); Chloride 96 mmol/L (98-107); Creatine Kinase < 20 U/L (55-170); Estimated Glomerular Filt Rate > 60 mL/min (>60); Globulin 3.1 g/dL (1.7-4.1); Glucose 144 mg/dL (70-99); HEMOLYSIS 36 (0-50); Lactate (Lactic Acid) 1.8 mmol/L (0.7-2.1); Potassium 4.1 mmol/L (3.4-5.1); Sodium 135 mmol/L (137-145); Total Protein 6.7 g/dL (6.3-8.2)
--- NOTE | 2024-11-14 09:13 | DI.CT.S_ITS ---
PROCEDURE: CT ANGIO CHEST PE PROTOCOL INDICATIONS: sob recent hospital stay TECHNIQUE: After the administration of intravenous contrast, 2 mm thick sections acquired from the pulmonary apices to the posterior costophrenic angles. 3-dimensional maximum intensity projection (MIP) coronal and sagittal reformats were then acquired through the thorax. For radiation dose reduction, the following was used: automated exposure control, adjustment of mA and/or kV according to patient size. COMPARISON: [facility], CT, CT ANGIO CHEST PE PROTOCOL, 05/14/2024, 15:33. FINDINGS: Image quality: Diagnostic. Pulmonary arteries: Pulmonary arteries are normal in size, and demonstrate no intraluminal filling defects to suggest central pulmonary embolism. Lower Neck: No enlarged lymph nodes. Thyroid: No thyroid nodules which require sonographic follow up, per consensus guidelines. Axillae: No enlarged lymph nodes. Chest Wall: Unremarkable. Bones: Unremarkable. Lungs and Pleura: Moderate to severe centrilobular emphysema. Ill-defined airspace consolidation in posterior and lateral aspect of right upper to midlung zone is seen. Smaller airspace opacity is noted in posterior medial aspect of left lower lobe and posterior medial aspect of right lower lobe near right lung base. No pleural effusion or pneumothorax. Previously described 13 mm medial right lower lobe nodule is no longer seen. Interval development of small nodular densities in posterior and lateral periphery of right lower lobe measures up to 6 mm in size series 5, image 192. Heart: Heart size is enlarged. No pericardial effusion. Thoracic Vessels: No aortic aneurysm. Mild to moderate 2 vessel coronary artery atherosclerotic calcifications. Mediastinum and Cristel: No enlarged lymph nodes. Esophagus: No wall thickening. Small hiatal hernia. Upper Abdomen: Visualized upper abdomen solid organs and bowel loops appear normal. IMPRESSION: 1. No pulmonary embolus. No thoracic aortic aneurysm or gross dissection. 2. Interval further worsening of aeration in posterior and lateral aspect of right upper to mid lung zone with concerning for infiltrate/atelectasis. Additional smaller airspace opacities in anterior medial aspect of left upper lobe and posterior medial aspect of bilateral lower lobes as above. Short-term CT chest follow-up in 3 months is recommended. 3. Previously noted 1.3 cm medial right lower lobe nodule is no longer seen. Interval development of several small nodules in posterior and lateral periphery of right lower lobe measures up to 6 mm in size. These can also be followed on subsequent CT chest study. 4. Moderate to severe centrilobular emphysema. No pleural effusion or pneumothorax. 5. Cardiomegaly, no pericardial effusion. No mediastinal or hilar lymphadenopathy by size criteria. Small hiatal hernia. Dictated by: Giuseppe Fonseca M.D. on 11/14/2024 at 9:52 Approved by: Giuseppe Fonseca M.D. on 11/14/2024 at 10:08
[2024-11-14] MEDS: methylPREDNISolone 125 MG/2 ML VIAL IV (09:14)
[2024-11-14 09:23] LABS: Troponin I < 0.012 ng/mL (0.01-0.034)
[2024-11-14 09:58] LABS: COVID-19 CEPHEID 4-PLEX PCR Negative (Negative); Influenza A - CEPHEID Flu A NEGATIVE (NEGATIVE); Influenza B - CEPHEID Flu B NEGATIVE (NEGATIVE); Respiratory Syncytial Virus Negative (Negative)
[2024-11-14 10:59] LABS: HCO3 VBG 39 mmol/L (24-28); Oxygen Saturation VBG 71 % (70-75); PCO2 VBG 62.7 mmHg (45-50); PO2 VBG 39 mmHg (35-45); Total CO2 VBG 38 mmol/L (24-29); pH VBG 7.41 (7.33-7.43)
[2024-11-14] MEDS: ALBUTEROL/IPRATROPIUM 3 ML AMPUL INH ×2 (13:05→18:26)
--- NOTE | 2024-11-14 14:53 | PC.NURSE ---
RN called inpatient PT x 2 with no answer and no return call. SYSTEM SPECIALIST # also called with no answer and no voicemail to leaver message.
--- NOTE | 2024-11-14 16:10 | CM.DANOTE ---
DCP Assessment Note: Pt is a 63yo male, resident of [facility], is seen in the ED for shortness of breath and COPD exacerbation. Pt lives in an apartment alone, has family very nearby. Pt's Primary Care Provider is Dr. Saqib Oliva and insurance is Medicare and Medicaid. Reviewed chart and discussed with multidisciplinary team pt's medical status and initial discharge needs. Per ED Provider, pt in end stage of COPD and would benefit from SNF or LONGTERM placement from ED, no admittable dx identified. ED BEEF GRADER met w/patient at bedside; introduced self and role. Present in the room are pt's sisters and mother. Patient was found in bed, alert and oriented, cooperative with assessment. Pt confirmed living situation and good support in mother and sisters. Pt and sisters endorse pt has been weak and fatigued for the past 5 days and this is a new issue - they endorse home is not the safest place right now especially with no 24/7 care. Patient also has a JENNIFER CG through [facility], 5 days a week for 5 hours each day but they believe this does not suffice for care at this time. Pt expressed preference in returning home but understanding he might need SNF admission before safe discharge home. Pt stated preference for [facility] or facilities in [facility]. Pt has a hx of [facility] (RN, PT, HH Aide). BEEF GRADER calls [facility] and confirms pt has established services with them, notified Admissions team that pt might be transferring to SNF following day. Verbal order from ED Provider for PT eval and treat, placed at 1350. Attempted to contact Inpatient PT 1400, 1440, and 1615. Left voice message each attempt and no response at time of writing. ED BEEF GRADER calls [facility], it is reported they have availability and could review utilizing pt's inpatient stay in October 2024 for Medicare SNF benefit. It is reported pt can be accepted if pt has a skillable need; sent all requested clinical paperwork via secure email. ED BEEF GRADER to confer with ED Provider if this is appropriate at pt's dispo. PASRR initiated, hospital exempt discharge identified, PASRR signed and will be in patient chart. Plan: Anticipating dc to [facility] on 11/15 at 1130 via facility wheelchair van. Discharge summary, signed medication list and PASRR must be sent to [facility]. CM team will follow closely for coordination of discharge plans. Christa Barone [facility] Discharge Planning/Care Management CM Discharge Assessment Start: 11/14/24 14:01 Freq: Status: Active Protocol: Document 11/14/24 16:07 MW (Rec: 11/14/24 16:10 MW [id number]) Discharge Planning Assessment Assigned [facility] [employer] GILDA Goodwin DPOA/Assigned Designee Name Sister Lakhani Contact Information [phone] Advance Directives? No Advance Directives on File No History Provided By Patient,Family Member,Medical Record Has Patient been admitted in last 30 Yes days? Comment 10/23/2024-10/30/2024, discharged home with [facility] Prior Living Arrangements Apartment/Condo Comment [facility]hold Members none Type of transporation used prior to Relies on Others admit Independent with ADL's No: Needs JENNIFER CG assistance Is patient alert and oriented? Yes Needs Assistance With Grooming,Meal Prep,Managing Medications,Home Chores / Shopping Caregiver for Another No Community Services used prior to Home Health Aid,Home Health admission: Nurse Comment [facility] (RN, PT, HH Aide) DME Already Rented / Owned Wheelchair,Oxygen Comment His oxygen is provided with [employer]. Patient/Family Preference Nursing Home Facility,Home with Home Health Comment Patient has caregivers through [facility] that come in, and he also has family in the area. Discharge Plan Nursing Home Facility Transportation Arrangement Facility Van Referrals Initiated Nursing Home If patient plan is SNF: Has PASSR been Yes completed? Medicare Choice List Provided Yes Medicare choice list reviewed on patient electronic tablet with SNF/HH Preference [facility], [facility] facility only Has Agency SNF been contacted Yes Whiteboard Updated in Patient Room with Yes name and ext. # of Mine [facility] Comment [phone] Review Status In Process Please Provide Date Initial DC 11/14/24 Assessment Was Performed Next Review Type Continued Stay Review
--- NOTE | 2024-11-14 17:31 | PC.NURSE ---
PT in room working with patient.
[2024-11-14] MEDS: clonazePAM 0.5 MG TABLET PO (18:30)
--- NOTE | 2024-11-14 18:37 | PT.IIE ---
Surgical History (Last Reviewed 11/14/24 @ 09:18 by Taylor Solis DO) No pertinent past surgical history Medical History (Last Reviewed 11/14/24 @ 09:18 by Taylor Solis DO) Anemia Anxiety (~2015) Asthma (Unknown) COPD (chronic obstructive pulmonary disease) (~2013) Fatigue GERD with stricture Hematuria (~2014) History of tobacco abuse HTN (hypertension) Hyperlipidemia (~2015) Insomnia (~2015) Lung nodule seen on imaging study Palpitations TIA (transient ischemic attack) (05/2014) Ventricular tachycardia (paroxysmal) Physical Therapy Inpatient Evaluation/Re-Eval M1 PT/OT-IP Prior Functional Status Start: 11/14/24 18:10 Freq: Status: Active Protocol: Document 11/14/24 18:11 KJ (Rec: 11/14/24 18:36 KJ Laptop) Medical Review Prior Functional Status Medical History Reviewed Yes Mobility and Gait Since discharge from the hospital last month, his mobility has been minimal. He has been able to transfer from one chair to another, but has not been able to walk. He generally uses a urinal but for bowel movements he uses his electric wheelchair and is able to transfer onto the toilet using the sink and grab bars. He has not been able to ambulate for weeks. Activities of Daily Living and IADL's Pt has in home care which comes inconsistently due to staffing challenges. He has a shower aid who comes to help with bathing. Friends and family bring him meals. Prior Functional Level (Other details) Although he has a hospital bed he sleeps in a recliner. Social History Household Members none Living Arrangements Apartment/Condo Number of Stairs To Enter/Railing? no stairs if he enters from the back Home Equipment Power Wheelchair/Scooter, Hospital Bed Additional Social History Comment Pt lives alone in a small house. His mother and sister live nearby. M2 PT-IP Current Condition Start: 11/14/24 18:10 Freq: Status: Active Protocol: Document 11/14/24 18:11 KJ (Rec: 11/14/24 18:36 KJ Laptop) Physical Therapy Current Condition Current Condition Evaluation Date 11/14/24 Treatment Diagnosis Impaired mobility M3 PT-IP Subjective Start: 11/14/24 18:10 Freq: Status: Active Protocol: Document 11/14/24 18:11 KJ (Rec: 11/14/24 18:36 KJ Laptop) Subjective Physical Therapy Visit Type Type Initial Evaluation Visit Start Time 17:05 Visit Stop Time 18:03 Physical Therapy Visit Comments Patient Comments Pt feels his activity tolerance has declined. He feels he did not get enough therapy the last time he was hospitalized and this may have contributed to his weakness. Patient Goals Pt feels more therapy is needed to regain mobility. Therapy Pain Assessment Pain When Pain Assessed At Rest Pain Present Pain Present Pain Reported Location Right Toe Pain Management Techniques Modification of Treatment abdomen Pain Behaviors Facial Grimacing,Holding Area Pain Management Techniques Modification of Treatment M4 PT-IP Mobility and Gait Start: 11/14/24 18:10 Freq: Status: Active Protocol: Document 11/14/24 18:11 KJ (Rec: 11/14/24 18:36 KJ Laptop) PT-Bed Mobility Assessment Rolling Type of Rolling Roll to Right Level of Assist Minimal Assistance Supine to Sit Supine to Sit Minimal Assistance Sit to Supine Sit to Supine Moderate Assistance PT-Transfer Assessment Sit to and From Stand Sit to and from Stand Minimal Assistance Equipment Transfer Assistive Device Bed Rail,Gait Belt,Front Wheeled Walker Transfers Transfer Destination Chair Transfer Technique Stand Pivot Transfer Ability Level of Assist Minimal Assistance Comments Mobility Comments heart rate rises from 105 in sitting to 125 during ADLs/ standing Gait Assessment Comments Gait Comments unable to ambulate, HR increases with minimal activity. O2 sats maintain 93% or higher on 2l O2 PT-Balance Assessment Sitting Balance and Reactions Static Sitting Balance Ability Good Dynamic Sitting Balance Ability Good Standing Balance and Reactions Static Standing Balance Ability Fair Dynamic Standing Balance Ability Fair M5 PT-IP Objective Assessments Start: 11/14/24 18:10 Freq: Status: Active Protocol: Document 11/14/24 18:11 KJ (Rec: 11/14/24 18:36 KJ Laptop) Orientation Orientation/Cognition Level of Alertness Alert Orientation Name,Age,Birthday,Month Language Function Ability No Deficits Noted Safety Awareness Understands Safety Issues Gross Range of Motion Upper Extremity ROM Assessment Within Functional Limits Impairments Stiffness in shoulders bilat Lower Extremity ROM Assessment Within Functional Limits Strength Upper Extremity Strength Assessment Within Functional Limits Hand disability examiner strength Fair Lower Extremity Strength Assessment Within Functional Limits M7 PT-IP Assessment and Plan Start: 11/14/24 18:10 Freq: Status: Active Protocol: Document 11/14/24 18:11 KJ (Rec: 11/14/24 18:36 KJ Laptop) PT Summary Assessment and Plan Potential Rehabilitation Potential Good Status of Condition at Evaluation Evolving Summary Impairments Pain,Bed Mobility,Transfers, Gait,Activity Tolerance Assessment Summary Pt with declining functional status after previous hospitalization has had minimal therapy and has not been able to tolerate much activity at home. He will benefit with more consistent therapy to regain strength and return home. Goals Bed Mobility Goal Independent Transfer Goal Standby Assistance Gait Goal Standby Assistance Gait Distance 100' Days to Meet Goals 10 Frequency of Treatment Frequency Of Treatment Once a Day Treatment Plan Physical Therapy Treatment Plan Bed Mobility Training,Transfer Training,Gait Training, Therapeutic Exercise Discharge Recommendations PT Discharge Recommendations SNF Rehab Transportation Needs at Discharge Wheelchair/Cabulance
[2024-11-14] MEDS: PIPERACILLIN/TAZO 4.5 GM in SODIUM CHLORIDE 0.9% 100 ML IV (18:59)
[2024-11-15] VITALS (9 sets, daily range): BP systolic 126–145; BP diastolic 62–88; PULSE 90–104; RESP 20–24; TEMP 36.3; O2SAT 94–99
[2024-11-15] MEDS: clonazePAM 0.5 MG TABLET PO (05:52)
[2024-11-15 05:53] LABS: Add Manual Diff / Slide Review NO; Basophils Absolute Auto 100 /uL (0-100); Basophils Percent Auto 0.8 % (0-2); Eosinophils Absolute Auto 0 /uL (0-450); Hematocrit 33.2 % (41-53); Hemoglobin 10.5 g/dL (13.5-17.5); Lymphocytes Absolute Auto 700 /uL (1100-4500); Lymphocytes Percent Auto 7.1 % (25-40); Mean Corpuscular HGB Conc 31.5 % (30-36); Mean Corpuscular Hemoglobin 27.1 PG (26-34); Mean Corpuscular Volume 86.1 fL (80-100); Monocytes Absolute Auto 300 /uL (0-900); Monocytes Percent Auto 3.1 % (3-14); Neutrophils Absolute Auto 8200 /uL (1500-7000); Platelet Count 168 X10^3/uL (150-400); Red Blood Cell Count 3.85 X10^6/uL (4.5-5.9); Red Cell Distribution Width 16.5 % (11.6-14.8); White Blood Cell Count 9.3 X10^3/uL (4.5-11.0)
[2024-11-15] MEDS: ALBUTEROL/IPRATROPIUM 3 ML AMPUL INH ×2 (05:54→11:47)
[2024-11-15 06:05] LABS: Alanine Aminotransferase 19 IU/L (<50); Albumin 3.3 g/dL (3.5-5.0); Albumin Globulin Ratio 1.1 (1.0-2.8); Alkaline Phosphatase 43 U/L (38-126); Aspartate Aminotransferase 20 IU/L (17-59); BUN Creatinine Ratio 31.4 (6-22); Bilirubin Total 0.2 mg/dL (0.2-1.3); Blood Urea Nitrogen 27 mg/dL (9-20); Calcium 9.2 mg/dL (8.4-10.2); Carbon Dioxide 35 mmol/L (22-32); Chloride 101 mmol/L (98-107); Estimated Glomerular Filt Rate > 60 mL/min (>60); Globulin 3.1 g/dL (1.7-4.1); Glucose 126 mg/dL (70-99); HEMOLYSIS < 15 (0-50); Potassium 4.8 mmol/L (3.4-5.1); Sodium 139 mmol/L (137-145); Total Protein 6.4 g/dL (6.3-8.2)
[2024-11-15] MEDS: predniSONE 20 MG TABLET 15 MG PO (09:30)
[2024-11-15] MEDS: guaiFENesin Solution 100 MG/5 ML UDC 200 MG PO (09:47)
[2024-11-15] MEDS: BENZONATATE 100 MG CAPSULE PO (09:47)
--- NOTE | 2024-11-15 10:35 | CM.DPC ---
DCP Cont. Reviewed EMR and team rounds for status updates. Received call from [facility] wanting to confirm that they can take Mak today at 11:30am. Called the ED to update them of transport time and plan, as CM was not involved in this d/c plan initially. The ED confirmed that pt was not going to d/c with IV ABO's, and no scripts. Called [facility] back, informed them that he will not be needing IV ABO's, they then stated that he would not qualify for placement then, as that was his only skillable need. Called back the ED, informed them that [facility] will no longer accept him, they then spoke with the ED provider, who decided to now d/c him on IV Zosyn. Called back [facility] and confirmed the 11:30am transport and the plan being confirmed again for d/c today to [facility]. RN CVICU had also informed the ED earlier that they will need to d/c with the scripts. No further CM d/c needs identified at this time.
--- NOTE | 2024-11-15 11:40 | PC.NURSE ---
Pt requesting breathing treatment at this time. RT notified of pt request.
[2024-11-15] MEDS: PIPERACILLIN/TAZO 3.375 GM in SODIUM CHLORIDE 0.9% 100 ML IV (11:52)
--- NOTE | 2024-11-15 12:08 | CM.SWNOTE ---
ED MANAGER INTEGRITY Note MANAGER INTEGRITY speaks with Judith at [facility] and reports that there was some confusion if patient is requiring IV antibiotics for community acquired Pneumonia. ED provider reviews patient and EMR further and determines patient does require IV Antibiotics - 10 days of Zosyn. Judith states that because of this confusion she accepted another patient for SNF rehab today from [facility]. MANAGER INTEGRITY informs Care management of this, Judith calls back and states that she thought CM MANAGER INTEGRITY stated another patient's name but just confirmed that this patient in the ED will be accepted at [facility] today. MANAGER INTEGRITY prepares packet with hard copy prescription for Zosyn, signed med list, DC summary and PASSR. MANAGER INTEGRITY confirms transport with Judith at [facility] and transport arrives to pick up attendant patient at 12pm today. Patient meets criteria for SNF due to concern for patient's community aquired Pneumonia requiring IV antibiotics and exacerbated COPD. Plan: Patient discharged to [facility] for SNF rehab ZAID Sheldon
== END 2024-11-15 12:30 ==
PROVIDERS: Emergency Provider Emergency Medicine; PCP Family Medicine
DX: J44.1 Chronic obstructive pulmonary disease with (acute) exacerbation (principal); J44.0 Chronic obstructive pulmonary disease with (acute) lower respiratory infection; J18.9 Pneumonia, unspecified organism; F17.200 Nicotine dependence, unspecified, uncomplicated; Z99.81 Dependence on supplemental oxygen; Z86.79 Personal history of other diseases of the circulatory system
CPT/HCPCS: 0241U; 36415; 71275; 80053; 82550; 82805; 83605; 84145; 84484; 85025; 87040; 93005; 93010; 94640; 96365; 96366; 96375; 97163; 99285; J2543; J2919; Q9967

== ENCOUNTER 2024-12-13 16:11 | Inpatient (IN) | payer MEDICARE, MEDICAID, SELFPAY ==
[2024-10-23 12:37] VITALS: BMI 24.0
[2024-12-13] VITALS (17 sets, daily range): BP systolic 100–142; BP diastolic 55–70; PULSE 110–120; RESP 14–26; TEMP 37.1–37.9; O2SAT 89–95; BMI 24.0
--- NOTE | 2024-12-13 16:31 | DI.RAD.S_ITS ---
PROCEDURE: XR CHEST 1V INDICATIONS: Shortness of breath TECHNIQUE: One view of the chest was acquired. COMPARISON: [facility], CR, XR CHEST 1V, 10/23/2024, 7:30. [facility], CT, CT ANGIO CHEST PE PROTOCOL, 11/14/2024, 9:28. FINDINGS: Surgical changes and devices: None. Lungs and pleura: Biapical emphysematous change. No focal pulmonary infiltrate. No pleural effusions or pneumothorax. Mediastinum: Mediastinal contours appear normal. Heart size is normal. Bones and chest wall: No suspicious bony lesions. Overlying soft tissues appear unremarkable. IMPRESSION: Biapical emphysematous change. No acute pulmonary infiltrate. Dictated by: Bay Nguyen M.D. on 12/13/2024 at 17:52 Approved by: Bay Nguyen M.D. on 12/13/2024 at 17:53
--- NOTE | 2024-12-13 16:31 | EKG_ITS ---
[place] [address], [place] [address] Test Date: 2024-12-13 Pat Name: Mak Rose Department: Room: Gender: Male Phlebotomy Program Coordinator: : 1960 Requested By: Order Number: [id number] Reading MD: Chau Hogan Measurements Intervals [place] Rate: 120 P: 75 CO: 134 QRS: 78 QRSD: 92 T: 47 QT: 282 QTc: 398 Interpretive Statements Sinus tachycardia Electronically Signed On 12-15-2024 17:25:52 PDT by Chau Hogan
[2024-12-13 16:40] LABS: Add Manual Diff / Slide Review NO; Basophils Absolute Auto 0 /uL (0-100); Basophils Percent Auto 0.3 % (0-2); Eosinophils Absolute Auto 100 /uL (0-450); Eosinophils Percent Auto 0.4 % (2-4); Hematocrit 37.5 % (41-53); Hemoglobin 11.6 g/dL (13.5-17.5); Lymphocytes Absolute Auto 1600 /uL (1100-4500); Lymphocytes Percent Auto 11.9 % (25-40); Mean Corpuscular HGB Conc 30.9 % (30-36); Mean Corpuscular Hemoglobin 27.1 PG (26-34); Mean Corpuscular Volume 87.7 fL (80-100); Monocytes Absolute Auto 1000 /uL (0-900); Monocytes Percent Auto 7.2 % (3-14); Neutrophils Absolute Auto 10800 /uL (1500-7000); Neutrophils Percent Auto 80.2 % (50-75); Platelet Count 214 X10^3/uL (150-400); Red Blood Cell Count 4.28 X10^6/uL (4.5-5.9); Red Cell Distribution Width 16.4 % (11.6-14.8); White Blood Cell Count 13.5 X10^3/uL (4.5-11.0)
[2024-12-13 16:41] LABS: Prothrombin Time 10.8 SECONDS (9.4-12.5)
[2024-12-13 16:46] LABS: Alanine Aminotransferase 21 IU/L (<50); Albumin 4.2 g/dL (3.5-5.0); Albumin Globulin Ratio 1.2 (1.0-2.8); Alkaline Phosphatase 76 U/L (38-126); Aspartate Aminotransferase 34 IU/L (17-59); BUN Creatinine Ratio 16.1 (6-22); Bilirubin Total 0.5 mg/dL (0.2-1.3); Blood Urea Nitrogen 15 mg/dL (9-20); Calcium 9.8 mg/dL (8.4-10.2); Carbon Dioxide 35 mmol/L (22-32); Chloride 97 mmol/L (98-107); Estimated Glomerular Filt Rate > 60 mL/min (>60); Globulin 3.5 g/dL (1.7-4.1); Glucose 95 mg/dL (70-99); HEMOLYSIS < 15 (0-50); Lactate (Lactic Acid) 2.3 mmol/L (0.7-2.1); Potassium 3.9 mmol/L (3.4-5.1); Sodium 139 mmol/L (137-145); Total Protein 7.7 g/dL (6.3-8.2)
[2024-12-13 16:58] LABS: NT-proBNP (BNP-Adult 18+) 117 pg/mL (<125); Troponin I < 0.012 ng/mL (0.01-0.034)
--- NOTE | 2024-12-13 17:30 | DI.CT.S_ITS ---
PROCEDURE: CT ANGIO CHEST PE PROTOCOL INDICATIONS: clear lungs/ tachy/ hypoxic TECHNIQUE: After the administration of intravenous contrast, 2 mm thick sections acquired from the pulmonary apices to the posterior costophrenic angles. 3-dimensional maximum intensity projection (MIP) coronal and sagittal reformats were then acquired through the thorax. For radiation dose reduction, the following was used: automated exposure control, adjustment of mA and/or kV according to patient size. COMPARISON: [facility], CT, CT ANGIO CHEST PE PROTOCOL, 11/14/2024, 9:28. FINDINGS: Image quality: Diagnostic. Pulmonary arteries: Pulmonary arteries are normal in size, and demonstrate no intraluminal filling defects to suggest central pulmonary embolism. Lower Neck: No enlarged lymph nodes. Thyroid: No thyroid nodules which require sonographic follow up, per consensus guidelines. Axillae: No enlarged lymph nodes. Chest Wall: Unremarkable. Bones: Unremarkable. Lungs and Pleura: No pneumothorax or pleural effusions. There has been moderate improvement of previously seen areas of consolidation in the right upper lobe. There is new or significantly more prominent, [id number] consolidation in the right lower lobe posteriorly. Left basilar parenchymal densities are stable as well as consolidation in the left lower lobe medially. Severe COPD again seen. Heart: Heart size is normal. No pericardial effusion. Thoracic Vessels: No aortic aneurysm. Mediastinum and Cristel: No enlarged lymph nodes. Esophagus: No wall thickening. No hiatal hernia. Upper Abdomen: Visualized upper abdomen solid organs and bowel loops appear normal. IMPRESSION: 1. No signs of pulmonary emboli. 2. Severe COPD, with moderate improvement of previously seen right upper lobe pneumonia, new mild to moderate right lower lobe pneumonia versus aspiration and stable left lower lobe areas of consolidation. No significant pleural effusion. Dictated by: Jamal Funez M.D. on 12/13/2024 at 18:37 Approved by: Jamal Funez M.D. on 12/13/2024 at 18:43
--- NOTE | 2024-12-13 17:30 | DI.CT.S_ITS ---
PROCEDURE: CT ABDOMEN PELVIS W CON INDICATIONS: abd pain, stone, infection concern TECHNIQUE: After the administration of intravenous contrast, axial sections acquired from the lung bases to the pubic symphysis. Coronal and sagittal reformats were performed. For radiation dose reduction, the following was used: automated exposure control, adjustment of mA and/or kV according to patient size. COMPARISON: [facility], CT, CT ABDOMEN PELVIS W CON, 09/18/2024, 14:52. [facility], CT, CT ABDOMEN PELVIS WO CON, 10/23/2024, 7:47. FINDINGS: Image quality: Diagnostic. ABDOMEN: Liver: No solid mass. Gallbladder: No radiopaque gallstones or wall thickening. Biliary ducts: No biliary dilation. Pancreas: No ductal dilation. Spleen: Size is within normal limits. Adrenal Glands: No adrenal nodules. Kidneys and Ureters: Stable right renal calculi. No hydronephrosis. Stomach and Bowel: There is no bowel dilatation. There is new mild short segmental wall thickening with inflammatory changes in the mid transverse colon. Persistent diverticulosis as well as mild pericolonic fat stranding in the descending and sigmoid colon. No fluid collections seen. Peritoneum: No abnormal intraperitoneal fluid. No free air. Ventral Wall: No significant ventral hernia. Abdominal Nodes: No retroperitoneal or mesenteric adenopathy by size criteria. Vessels: Aorta and inferior vena cava are normal in size. PELVIS: Pelvic Organs: Unremarkable. Bladder: No bladder wall thickening, accounting for underdistention. Pelvic Nodes: No enlarged lymph nodes. Miscellaneous: No inguinal hernias are seen. Bones: No aggressive osseous abnormality. IMPRESSION: 1. Findings most suggestive of new mild colitis versus diverticulitis in the mid transverse colon, with persistent mild inflammatory changes in the descending and sigmoid colon. No signs of complications. 2. Stable nonobstructing right renal calculi, no ureteral calculi or signs of obstructive uropathy. 3. Please refer also to report of study of the chest for additional findings. Dictated by: Jamal Funez M.D. on 12/13/2024 at 18:30 Approved by: Jamal Funez M.D. on 12/13/2024 at 18:37
[2024-12-13] MEDS: MORPHINE 4 MG/ML INJ IV (17:46)
[2024-12-13] MEDS: cefTRIAXone 2,000 MG in SODIUM CHLORIDE 0.9% 100 ML 200 MG IV (17:47)
[2024-12-13] MEDS: AZITHROMYCIN 250 MG TABLET 500 MG PO (17:47)
[2024-12-13] MEDS: ONDANSETRON 4 MG/2 ML INJ IV ×2 (17:53→21:18)
--- NOTE | 2024-12-13 18:00 | PC.NURSE ---
Pt requesting pain and nausea medications. Administered per MD orders.
[2024-12-13 18:10] LABS: Reflexed Lactate in 2 Hours Y
--- NOTE | 2024-12-13 19:12 | ED.FEVER ---
HPI - Fever <Eric Cardoza MD - Last Filed: 12/13/24 23:38> General Chief Complaint: Fever Stated Complaint: Fever, cough for x1 day Time Seen by Provider: 12/13/24 17:30 Related Data Home Medications ?Medication ?Instructions ?Recorded ?Confirmed ascorbate calcium (vitamin C) 500 500 mg PO DAILY 08/06/23 12/13/24 mg tablet aluminum-mag hydroxide-simethicone 20 ml PO BID 05/14/24 12/13/24 400 mg-400 mg-40 mg/5 mL oral susp multivitamin with minerals-folic 1 tab PO DAILY 05/14/24 12/13/24 acid 0.4 mg tablet nystatin 100,000 unit/mL oral 5 ml PO QID PRN thrush 05/14/24 12/13/24 suspension cetirizine 10 mg tablet 10 mg PO BEDTIME allergy/asthma 08/25/24 12/13/24 guaifenesin 100 mg/5 mL oral liquid 200 mg PO Q4H PRN cough 08/25/24 12/13/24 mecobalamin (vitamin B12) 1,000 1,000 mcg PO DAILY 08/25/24 12/13/24 mcg chewable tablet acetaminophen 500 mg tablet 500 mg PO Q6H PRN Pain (Scale 10/31/24 12/13/24 Score 1-3) polyethylene glycol 3350 17 17 g PO DAILY PRN constipation 10/31/24 12/13/24 gram/dose oral powder Previous Rx's ?Medication ?Instructions ?Recorded ferrous gluconate 324 mg (38 mg 324 mg PO DAILY #90 tabs 03/28/24 iron) tablet Disabled Parking Permint #1 ea 07/01/24 mometasone-formoterol HFA 200 2 puff PO BID #13 grams 07/22/24 mcg-5 mcg/actuation aerosol inhaler (Dulera) clonazepam 0.5 mg tablet 0.5 mg PO TID #90 tabs 08/25/24 nitroglycerin 0.3 mg sublingual 0.3 mg sublingual Q5-15M PRN chest 08/25/24 tablet pain #20 tabs simvastatin 20 mg tablet 20 mg PO QPM #90 tabs 08/25/24 albuterol sulfate 2.5 mg/3 mL 2.5 mg (3 mL) inhalation QID PRN 09/09/24 (0.083 %) solution for nebulization shortness of breath or wheezing #180 mL albuterol sulfate 90 mcg/actuation 1 - 2 puff PO Q4H PRN for wheezing 09/09/24 aerosol inhaler (Ventolin HFA) #54 grams ipratropium bromide 0.02 % 2.5 ml inhalation QID PRN 09/09/24 solution for inhalation shortness of breath or wheezing #150 mL montelukast 10 mg tablet 10 mg PO BEDTIME #90 tabs 10/11/24 hydrocodone 5 mg-acetaminophen 325 2 tab PO Q4H PRN Pain, Severe 10/28/24 mg tablet (7-10) #20 tabs ondansetron 4 mg disintegrating 4 mg PO Q8H PRN nausea and 10/28/24 tablet vomiting #14 tabs benzonatate 100 mg capsule 100 mg PO BID-TID PRN Cough #270 11/01/24 caps prednisone 10 mg tablet See Rx Instructions PO .COMPLEX 11/01/24 #76 tabs Allergies Allergy/AdvReac Type Severity Reaction Status Date / Time cinnamon (CINNAMON) Allergy Severe RESP Verified 12/13/24 16:37 PROBLEMS AND SWELLING Sulfa (Sulfonamide Allergy Severe anaphylacti Verified 12/13/24 16:37 Antibiotics) (SULFA c (SULFONAMIDE ANTIBIOTICS)) fluticasone (FLUTICASONE) Allergy Intermediate FEELS Verified 12/13/24 16:37 LIKE FIRE IN THE LUNGS trimethoprim (TRIMETHOPRIM) Allergy Unknown Patient Verified 12/13/24 16:37 can't remember dextromethorphan AdvReac Severe Difficulty Verified 12/13/24 16:37 Breathing fentanyl AdvReac Severe Difficulty Verified 12/13/24 16:37 Breathing codeine (CODEINE) AdvReac Intermediate violent Verified 12/13/24 16:37 doxycycline (DOXYCYCLINE) AdvReac Mild N/V Verified 12/13/24 16:37 <Pancho Flood MD - Last Filed: 12/13/24 19:59> General Source: EMS Mode of arrival: EMS History of Present Illness HPI Narrative: Patient is an individual with a history of COPD, emphysema, asthma, and chronic oxygen dependence (2.5 L/min at home, on 2 L/min in ED) who presents with severe, persistent right flank pain described as pulsating and exacerbated by movement. The pain has been present consistently and is associated with increased work of breathing, which the patient attributes to the pain rather than baseline respiratory status. The patient reports the onset of fever earlier in the afternoon. There is a history of recent infections, including diverticulitis, colonic infection, and right-sided pneumonia, for which the patient completed a two-month course of antibiotics, ending approximately two weeks ago. The patient denies new abdominal swelling or history of cirrhosis or paracentesis. Mild abdominal tenderness is noted, but this is not new. The patient also reports chronic tachycardia, which has worsened over the past few months and is exacerbated by movement. Pertinent positives: right flank pain, increased work of breathing, fever, mild abdominal tenderness, chronic tachycardia. Pertinent negatives: no new abdominal swelling, no history of cirrhosis or paracentesis, no significant lower extremity edema. Review of Systems <Pancho Flood MD - Last Filed: 12/13/24 19:59> Review of Systems ROS Unobtainable: All systems reviewed & are unremarkable except as noted in HPI and below Patient History <Eric Cardoza MD - Last Filed: 12/13/24 23:38> Medical History Lung nodule seen on imaging study History of tobacco abuse Fatigue Ventricular tachycardia (paroxysmal) Anemia Palpitations GERD with stricture HTN (hypertension) Insomnia (~2015) Hyperlipidemia (~2015) Anxiety (~2015) COPD (chronic obstructive pulmonary disease) (~2013) Asthma (Unknown) TIA (transient ischemic attack) (05/2014) Hematuria (~2014) Surgical History No pertinent past surgical history Family History Mother Age: 86 Hypertension Sister Age: 69 Cancer Social History household members: none Smoking Status: Former smoker Tobacco: How many years used: 47 quit status: considering quitting second hand exposure: No alcohol intake: former substance use type: does not use <Pancho Flood MD - Last Filed: 12/13/24 19:59> tobacco type: cigarettes alcohol intake frequency: holidays/special occasions only Exam <Eric Cardoza MD - Last Filed: 12/13/24 23:38> Initial Vital Signs Initial Vital Signs: Vital Signs Pulse Rate 118 H 12/13/24 16:33 Respiratory Rate 18 12/13/24 16:33 Pulse Oximetry 95 12/13/24 16:33 <Pancho Flood MD - Last Filed: 12/13/24 19:59> Narrative Exam Narrative: General: Patient in visible discomfort, increased work of breathing. Skin: Good turgor, no rash, unusual bruising or prominent lesions Head: Normocephalic, atraumatic HEENT: Conjunctiva clear, EOM intact, PERRL, Mucous membranes moist. Neck: Supple, normal ROM Heart: Regular rate and rhythm, no murmur or gallop or rubs Lungs: Clear to auscultation bilaterally, no significant wheezing. Abdomen: Mild abdominal distention, mild diffuse tenderness, no focal tenderness. Back: Spine normal without deformity or tenderness, no CVA tenderness Extremities: No significant lower extremity edema. Peripheral pulses intact Neurologic: CN 2-12 normal. Normal sensation and motor exam. Psychiatric: Oriented X3. Normal mood and affect. Initial Vital Signs Initial Vital Signs: Vital Signs Pulse Rate 118 H 12/13/24 16:33 Respiratory Rate 18 12/13/24 16:33 Pulse Oximetry 95 12/13/24 16:33 Course <Eric Cardoza MD - Last Filed: 12/13/24 23:38> Orders Ordered: ED Orders 12/13/24 16:26 Complete Blood Count AUTO DIFF Stat Comprehensive Metabolic Panel Stat Lactate (Lactic Acid) Stat NT-proBNP (BNP-Adult 18+) Stat Prothrombin Time INR Stat Troponin I Stat 12/13/24 16:31 XR chest 1V Stat EKG-12 Lead Stat Measure peak expiratory flow STAT RT Consult Eval and Treat STAT 12/13/24 17:30 CT abdomen pelvis w con Stat CT angio chest PE protocol Stat 12/13/24 20:31 NT-proBNP (BNP-Adult 18+) Stat 12/14/24 05:00 Complete Blood Count AUTO DIFF DAILY Comprehensive Metabolic Panel DAILY Acetaminophen (Acetaminophen 325 Mg Tablet) 650 mg PO Q6H PRN PRN Reason: Fever/Mild Pain (1-3) Hydrocodone Bitart/Acetaminophen (Hydrocodone/Acet 5/325 Tablet) 1 tab PO Q4H PRN PRN Reason: Pain, Moderate (4-6) Albuterol (Albuterol 2.5 Mg/3 Ml Neb (Adult)) 2.5 mg INH [id number] PRN PRN Reason: Shortness Of Breath Or Wheezing Last Admin: 12/13/24 22:18 Dose: 2.5 mg Documented By: MANPREET Albuterol/Ipratropium (Albuterol/Ipratropium 3 Ml Ampul) 3 ml INH [id number] [facility] Atorvastatin Calcium (Atorvastatin 20 Mg Tablet) 10 mg PO BEDTIME [facility] Last Admin: 12/13/24 22:35 Dose: 10 mg Documented By: LESLY Benzonatate (Benzonatate 100 Mg Capsule) 100 mg PO TID PRN PRN Reason: Cough Bisacodyl (Bisacodyl 5 Mg Tablet) 10 mg PO DAILY PRN PRN Reason: Constipation Clonazepam (Clonazepam 0.5 Mg Tablet) 0.5 mg PO TID [facility] Last Admin: 12/13/24 22:35 Dose: 0.5 mg Documented By: LESLY Enoxaparin Sodium (Enoxaparin 40 Mg/0.4 Ml Syringe) 40 mg SUBCUT DAILY [facility] Guaifenesin (Guaifenesin Solution 100 Mg/5 Ml Udc) 200 mg PO Q4H PRN PRN Reason: Cough Sodium Chloride (Normal Saline 0.9%) 1,000 mls @ 100 mls/hr IV CONT [facility] Last Admin: 12/13/24 22:35 Dose: 100 mls/hr Documented By: LESLY Ceftriaxone Sodium 1,000 mg/ (Sodium Chloride) 100 mls @ 200 mls/hr IV Q24H [facility] Piperacillin Sod/Tazobactam (Sod 3.375 gm/ Sodium Chloride) 100 mls @ 25 mls/hr IV Q8H [facility] Loratadine (Loratadine 10 Mg Tablet) 10 mg PO BEDTIME [facility] Last Admin: 12/13/24 22:35 Dose: 10 mg Documented By: LESLY Methylprednisolone (Methylprednisolone 125 Mg/2 Ml Vial) 80 mg IV Q8H [facility] Last Admin: 12/13/24 22:35 Dose: 80 mg Documented By: LESLY Morphine Sulfate (Morphine 4 Mg/Ml Inj) 4 mg IV Q4HR PRN PRN Reason: Pain, Severe (7-10) Naloxone HCl (Naloxone 0.4 Mg/Ml Vial) 0.2 mg IV Q2MIN PRN PRN Reason: Opiate Reversal Nitroglycerin (Nitroglycerin 0.4 Mg Sl Tab) 0.4 mg SL [id number] PRN PRN Reason: Chest Pain Nystatin (Nystatin Susp 500,000 Unit/5 Ml Udc) 500,000 unit PO QID PRN PRN Reason: Thrush Ondansetron HCl (Ondansetron 4 Mg/2 Ml Inj) 4 mg IV Q8HR PRN PRN Reason: Nausea And Vomiting Last Admin: 12/13/24 21:18 Dose: 4 mg Documented By: LESLY Polyethylene Glycol (Polyethylene Glycol 3350 17 Gm Powd.Pack) 17 gm PO DAILY [facility] Sennosides (Sennosides 8.6 Mg Tablet) 17.2 mg PO BID ROBERT Last Admin: 12/13/24 22:35 Dose: 17.2 mg Documented By: LESLY Discontinued Medications Azithromycin (Azithromycin 250 Mg Tablet) 500 mg PO NOW ONE Stop: 12/13/24 17:33 Last Admin: 12/13/24 17:47 Dose: 500 mg Documented By: Ceftriaxone Sodium 2,000 mg/ (Sodium Chloride) 100 mls @ 200 mls/hr IV NOW ONE Stop: 12/13/24 17:33 Last Infusion: 12/13/24 19:10 Dose: Infused Documented By: Admin: 12/13/24 17:47 Dose: 200 mls/hr Documented By: Metronidazole (Flagyl) 500 mg in 100 mls @ 100 mls/hr IV NOW ONE Stop: 12/13/24 20:23 Last Infusion: 12/13/24 21:49 Dose: Infused Documented By: Admin: 12/13/24 20:09 Dose: 100 mls/hr Documented By: Piperacillin Sod/Tazobactam (Sod 4.5 gm/ Sodium Chloride) 100 mls @ 200 mls/hr IV NOW ONE Stop: 12/13/24 21:29 Last Admin: 12/13/24 22:34 Dose: 200 mls/hr Documented By: LESLY Morphine Sulfate (Morphine 4 Mg/Ml Inj) 4 mg IV NOW ONE Stop: 12/13/24 17:41 Last Admin: 12/13/24 17:46 Dose: 4 mg Documented By: Ondansetron HCl (Ondansetron 4 Mg/2 Ml Inj) 4 mg IV NOW ONE Stop: 12/13/24 17:52 Last Admin: 12/13/24 17:53 Dose: 4 mg Documented By: Vital Signs Vital signs: Vital Signs - 8 hr 12/13/24 16:33 12/13/24 16:36 12/13/24 17:00 Temperature 98.7 F Pulse Rate 118 H 117 H Respiratory Rate 18 23 Blood Pressure 138/70 129/63 Pulse Oximetry 95 95 Oxygen Delivery Method Room Air Oxygen Flow Rate 12/13/24 17:00 12/13/24 17:30 12/13/24 17:30 Temperature Pulse Rate 115 H 119 H Respiratory Rate 16 14 Blood Pressure 137/65 Pulse Oximetry 95 92 Oxygen Delivery Method Oxygen Flow Rate 12/13/24 18:14 12/13/24 18:21 12/13/24 18:21 Temperature Pulse Rate 119 H 119 H Respiratory Rate 26 H Blood Pressure 142/69 H Pulse Oximetry 90 L 92 Oxygen Delivery Method Nasal Cannula Oxygen Flow Rate 2 12/13/24 18:30 12/13/24 18:30 12/13/24 19:00 Temperature Pulse Rate 115 H Respiratory Rate 16 Blood Pressure 136/66 104/55 L Pulse Oximetry 94 Oxygen Delivery Method Oxygen Flow Rate 12/13/24 19:00 12/13/24 19:30 12/13/24 19:30 Temperature Pulse Rate 115 H 111 H Respiratory Rate 20 26 H Blood Pressure 102/57 L Pulse Oximetry 94 94 Oxygen Delivery Method Oxygen Flow Rate <Pancho Flood MD - Last Filed: 12/13/24 19:59> Orders Ordered: ED Orders 12/13/24 16:26 Complete Blood Count AUTO DIFF Stat Comprehensive Metabolic Panel Stat Lactate (Lactic Acid) Stat NT-proBNP (BNP-Adult 18+) Stat Prothrombin Time INR Stat Troponin I Stat 12/13/24 16:31 XR chest 1V Stat EKG-12 Lead Stat Measure peak expiratory flow STAT RT Consult Eval and Treat STAT 12/13/24 17:30 CT abdomen pelvis w con Stat CT angio chest PE protocol Stat 12/13/24 20:31 NT-proBNP (BNP-Adult 18+) Stat 12/14/24 05:00 Complete Blood Count AUTO DIFF DAILY Comprehensive Metabolic Panel DAILY Acetaminophen (Acetaminophen 325 Mg Tablet) 650 mg PO Q6H PRN PRN Reason: Fever/Mild Pain (1-3) Hydrocodone Bitart/Acetaminophen (Hydrocodone/Acet 5/325 Tablet) 1 tab PO Q4H PRN PRN Reason: Pain, Moderate (4-6) Albuterol (Albuterol 2.5 Mg/3 Ml Neb (Adult)) 2.5 mg INH [id number] PRN PRN Reason: Shortness Of Breath Or Wheezing Last Admin: 12/13/24 22:18 Dose: 2.5 mg Documented By: MANPREET Albuterol/Ipratropium (Albuterol/Ipratropium 3 Ml Ampul) 3 ml INH [id number] ROBERT Atorvastatin Calcium (Atorvastatin 20 Mg Tablet) 10 mg PO BEDTIME [facility] Last Admin: 12/13/24 22:35 Dose: 10 mg Documented By: LESLY Benzonatate (Benzonatate 100 Mg Capsule) 100 mg PO TID PRN PRN Reason: Cough Bisacodyl (Bisacodyl 5 Mg Tablet) 10 mg PO DAILY PRN PRN Reason: Constipation Clonazepam (Clonazepam 0.5 Mg Tablet) 0.5 mg PO TID [facility] Last Admin: 12/13/24 22:35 Dose: 0.5 mg Documented By: LESLY Enoxaparin Sodium (Enoxaparin 40 Mg/0.4 Ml Syringe) 40 mg SUBCUT DAILY [facility] Guaifenesin (Guaifenesin Solution 100 Mg/5 Ml Udc) 200 mg PO Q4H PRN PRN Reason: Cough Sodium Chloride (Normal Saline 0.9%) 1,000 mls @ 100 mls/hr IV CONT [facility] Last Admin: 12/13/24 22:35 Dose: 100 mls/hr Documented By: LESLY Ceftriaxone Sodium 1,000 mg/ (Sodium Chloride) 100 mls @ 200 mls/hr IV Q24H [facility] Piperacillin Sod/Tazobactam (Sod 3.375 gm/ Sodium Chloride) 100 mls @ 25 mls/hr IV Q8H [facility] Loratadine (Loratadine 10 Mg Tablet) 10 mg PO BEDTIME [facility] Last Admin: 12/13/24 22:35 Dose: 10 mg Documented By: LESLY Methylprednisolone (Methylprednisolone 125 Mg/2 Ml Vial) 80 mg IV Q8H [facility] Last Admin: 12/13/24 22:35 Dose: 80 mg Documented By: LESLY Morphine Sulfate (Morphine 4 Mg/Ml Inj) 4 mg IV Q4HR PRN PRN Reason: Pain, Severe (7-10) Naloxone HCl (Naloxone 0.4 Mg/Ml Vial) 0.2 mg IV Q2MIN PRN PRN Reason: Opiate Reversal Nitroglycerin (Nitroglycerin 0.4 Mg Sl Tab) 0.4 mg SL [id number] PRN PRN Reason: Chest Pain Nystatin (Nystatin Susp 500,000 Unit/5 Ml Udc) 500,000 unit PO QID PRN PRN Reason: Thrush Ondansetron HCl (Ondansetron 4 Mg/2 Ml Inj) 4 mg IV Q8HR PRN PRN Reason: Nausea And Vomiting Last Admin: 12/13/24 21:18 Dose: 4 mg Documented By: LESLY Polyethylene Glycol (Polyethylene Glycol 3350 17 Gm Powd.Pack) 17 gm PO DAILY [facility] Sennosides (Sennosides 8.6 Mg Tablet) 17.2 mg PO BID ROBERT Last Admin: 12/13/24 22:35 Dose: 17.2 mg Documented By: LESLY Discontinued Medications Azithromycin (Azithromycin 250 Mg Tablet) 500 mg PO NOW ONE Stop: 12/13/24 17:33 Last Admin: 12/13/24 17:47 Dose: 500 mg Documented By: Ceftriaxone Sodium 2,000 mg/ (Sodium Chloride) 100 mls @ 200 mls/hr IV NOW ONE Stop: 12/13/24 17:33 Last Infusion: 12/13/24 19:10 Dose: Infused Documented By: Admin: 12/13/24 17:47 Dose: 200 mls/hr Documented By: Metronidazole (Flagyl) 500 mg in 100 mls @ 100 mls/hr IV NOW ONE Stop: 12/13/24 20:23 Last Infusion: 12/13/24 21:49 Dose: Infused Documented By: Admin: 12/13/24 20:09 Dose: 100 mls/hr Documented By: Piperacillin Sod/Tazobactam (Sod 4.5 gm/ Sodium Chloride) 100 mls @ 200 mls/hr IV NOW ONE Stop: 12/13/24 21:29 Last Admin: 12/13/24 22:34 Dose: 200 mls/hr Documented By: LESLY Morphine Sulfate (Morphine 4 Mg/Ml Inj) 4 mg IV NOW ONE Stop: 12/13/24 17:41 Last Admin: 12/13/24 17:46 Dose: 4 mg Documented By: JR Ondansetron HCl (Ondansetron 4 Mg/2 Ml Inj) 4 mg IV NOW ONE Stop: 12/13/24 17:52 Last Admin: 12/13/24 17:53 Dose: 4 mg Documented By: Vital Signs Vital signs: Vital Signs - 8 hr 12/13/24 16:33 12/13/24 16:36 12/13/24 17:00 Temperature 98.7 F Pulse Rate 118 H 117 H Respiratory Rate 18 23 Blood Pressure 138/70 129/63 Pulse Oximetry 95 95 Oxygen Delivery Method Room Air Oxygen Flow Rate 12/13/24 17:00 12/13/24 17:30 12/13/24 17:30 Temperature Pulse Rate 115 H 119 H Respiratory Rate 16 14 Blood Pressure 137/65 Pulse Oximetry 95 92 Oxygen Delivery Method Oxygen Flow Rate 12/13/24 18:14 12/13/24 18:21 12/13/24 18:21 Temperature Pulse Rate 119 H 119 H Respiratory Rate 26 H Blood Pressure 142/69 H Pulse Oximetry 90 L 92 Oxygen Delivery Method Nasal Cannula Oxygen Flow Rate 2 12/13/24 18:30 12/13/24 18:30 12/13/24 19:00 Temperature Pulse Rate 115 H Respiratory Rate 16 Blood Pressure 136/66 104/55 L Pulse Oximetry 94 Oxygen Delivery Method Oxygen Flow Rate 12/13/24 19:00 12/13/24 19:30 12/13/24 19:30 Temperature Pulse Rate 115 H 111 H Respiratory Rate 20 26 H Blood Pressure 102/57 L Pulse Oximetry 94 94 Oxygen Delivery Method Oxygen Flow Rate MDM - Fever <Eric Cardoza MD - Last Filed: 12/13/24 23:38> Lab Data 12/13/24 16:26 12/13/24 16:26 Labs: Lab Results 12/13/24 Range/Units 16:26 WBC 13.5 H (4.5-11.0) X10^3/uL RBC 4.28 L (4.5-5.9) X10^6/uL Hgb 11.6 L (13.5-17.5) g/dL Hct 37.5 L (41-53) % MCV 87.7 (80-100) fL MCH 27.1 (26-34) PG MCHC 30.9 (30-36) % RDW 16.4 H (11.6-14.8) % Plt Count 214 (150-400) X10^3/uL Neut % (Auto) 80.2 H (50-75) % Lymph % (Auto) 11.9 L (25-40) % Alexander % (Auto) 7.2 (3-14) % Eos % (Auto) 0.4 L (2-4) % Baso % (Auto) 0.3 (0-2) % Neut # (Auto) 90342 H (6432-3871) /uL Lymph # (Auto) 1600 (7393-8488) /uL Alexander # (Auto) 1000 H (0-900) /uL Eos # (Auto) 100 (0-450) /uL Baso # (Auto) 0 (0-100) /uL PT 10.8 (9.4-12.5) SECONDS INR 1.0 (0.9-1.3) Sodium 139 (137-145) mmol/L Potassium 3.9 (3.4-5.1) mmol/L Chloride 97 L (98-107) mmol/L Carbon Dioxide 35 H (22-32) mmol/L BUN 15 (9-20) mg/dL Creatinine 0.93 (0.66-1.25) mg/dL Estimated GFR > 60 (>60) mL/min BUN/Creatinine Ratio 16.1 (6-22) Glucose 95 (70-99) mg/dL Lactate 2.3 H (0.7-2.1) mmol/L Calcium 9.8 (8.4-10.2) mg/dL Total Bilirubin 0.5 (0.2-1.3) mg/dL AST 34 (17-59) IU/L ALT 21 (<50) IU/L Alkaline Phosphatase 76 (38-126) U/L Troponin I < 0.012 (0.01-0.034) ng/mL NT-Pro-B Natriuret Pep 117 (<125) pg/mL Total Protein 7.7 (6.3-8.2) g/dL Albumin 4.2 (3.5-5.0) g/dL Globulin 3.5 (1.7-4.1) g/dL Albumin/Globulin Ratio 1.2 (1.0-2.8) MDM Narrative Medical decision making narrative: INITIAL EVALUATION AND PLAN: - Possible right lower lobe pneumonia on chest X-ray - Differential includes infectious process (pneumonia, abdominal source), consideration of prior liver/kidney issues - Plan: - Review current and prior chest X-rays for comparison - Blood work: CBC, CMP, infection markers - Consider CT imaging if indicated - Start antibiotics if pneumonia confirmed - Monitor oxygenation and vital signs ED Course: The patient presented with severe right flank pain, increased work of breathing, and fever. Initial evaluation included a chest X-ray, which suggested possible right lower lobe pneumonia. Blood work including CBC, CMP, and infection markers was ordered to further investigate the source of infection. The plan included reviewing current and prior chest X-rays for comparison and considering CT imaging if necessary. Antibiotics were planned to be initiated upon confirmation of pneumonia. The patient?s oxygenation and vital signs were closely monitored throughout the ED course. Differential Diagnoses: Pneumonia, Infectious process, Pyelonephritis, Pulmonary embolism, Aortic dissection, Diverticulitis recurrence, Empyema Complexity of Problems Addressed: The patient presents with severe, persistent right flank pain, fever, and increased work of breathing, which are concerning for an acute infectious process such as pneumonia or an abdominal source of infection. The history of stage 4 COPD, emphysema, asthma, and chronic oxygen dependence further complicates the clinical picture, as these conditions pose a significant risk for respiratory compromise. Additionally, the recent history of diverticulitis, colonic infection, and pneumonia raises the possibility of recurrent or unresolved infections, which could lead to systemic complications. The presence of chronic tachycardia, worsened over the past few months, adds another layer of complexity, as it may indicate underlying cardiovascular stress or systemic illness. These factors collectively suggest a high risk of morbidity and potential life-threatening complications without prompt intervention. Ordered Labs: - CBC - CMP - infection markers Ordered Tests/Imaging: - Chest X-Ray - CT Imaging <Pancho Flood MD - Last Filed: 12/13/24 19:59> Lab Data Lab results narrative: I reviewed patient's laboratory evaluation, white count at 13.5 no significant anemia requiring intervention platelet count 214. Patient's electrolytes without significant abnormalities requiring ED intervention, patient found to have mildly elevated lactate at 2.3 Troponin negative LFTs within normal limits Labs: Lab Results 12/13/24 Range/Units 16:26 WBC 13.5 H (4.5-11.0) X10^3/uL RBC 4.28 L (4.5-5.9) X10^6/uL Hgb 11.6 L (13.5-17.5) g/dL Hct 37.5 L (41-53) % MCV 87.7 (80-100) fL MCH 27.1 (26-34) PG MCHC 30.9 (30-36) % RDW 16.4 H (11.6-14.8) % Plt Count 214 (150-400) X10^3/uL Neut % (Auto) 80.2 H (50-75) % Lymph % (Auto) 11.9 L (25-40) % Alexander % (Auto) 7.2 (3-14) % Eos % (Auto) 0.4 L (2-4) % Baso % (Auto) 0.3 (0-2) % Neut # (Auto) 84486 H (9769-5843) /uL Lymph # (Auto) 1600 (7097-5254) /uL Alexander # (Auto) 1000 H (0-900) /uL Eos # (Auto) 100 (0-450) /uL Baso # (Auto) 0 (0-100) /uL PT 10.8 (9.4-12.5) SECONDS INR 1.0 (0.9-1.3) Sodium 139 (137-145) mmol/L Potassium 3.9 (3.4-5.1) mmol/L Chloride 97 L (98-107) mmol/L Carbon Dioxide 35 H (22-32) mmol/L BUN 15 (9-20) mg/dL Creatinine 0.93 (0.66-1.25) mg/dL Estimated GFR > 60 (>60) mL/min BUN/Creatinine Ratio 16.1 (6-22) Glucose 95 (70-99) mg/dL Lactate 2.3 H (0.7-2.1) mmol/L Calcium 9.8 (8.4-10.2) mg/dL Total Bilirubin 0.5 (0.2-1.3) mg/dL AST 34 (17-59) IU/L ALT 21 (<50) IU/L Alkaline Phosphatase 76 (38-126) U/L Troponin I < 0.012 (0.01-0.034) ng/mL NT-Pro-B Natriuret Pep 117 (<125) pg/mL Total Protein 7.7 (6.3-8.2) g/dL Albumin 4.2 (3.5-5.0) g/dL Globulin 3.5 (1.7-4.1) g/dL Albumin/Globulin Ratio 1.2 (1.0-2.8) Imaging Data CT scan - chest: Radiologist's Impression: Lungs and Pleura: No pneumothorax or pleural effusions. There has been moderate improvement of previously seen areas of consolidation in the right upper lobe. There is new or significantly more prominent, [id number] consolidation in the right lower lobe posteriorly. Left basilar parenchymal densities are stable as well as consolidation in the left lower lobe medially. Severe COPD again seen. Heart: Heart size is normal. No pericardial effusion. Thoracic Vessels: No aortic aneurysm. Mediastinum and Cristel: No enlarged lymph nodes. Esophagus: No wall thickening. No hiatal hernia. Upper Abdomen: Visualized upper abdomen solid organs and bowel loops appear normal. IMPRESSION: 1. No signs of pulmonary emboli. 2. Severe COPD, with moderate improvement of previously seen right upper lobe pneumonia, new mild to moderate right lower lobe pneumonia versus aspiration and stable left lower lobe areas of consolidation. No significant pleural effusion. CT scan - abdomen/pelvis: Radiologist's Impression: IMPRESSION: 1. Findings most suggestive of new mild colitis versus diverticulitis in the mid transverse colon, with persistent mild inflammatory changes in the descending and sigmoid colon. No signs of complications. 2. Stable nonobstructing right renal calculi, no ureteral calculi or signs of obstructive uropathy. 3. Please refer also to report of study of the chest for additional findings. Chest x-ray: Radiologist's Impression: Lungs and pleura: Biapical emphysematous change. No focal pulmonary infiltrate. No pleural effusions or pneumothorax. Mediastinum: Mediastinal contours appear normal. Heart size is normal. Bones and chest wall: No suspicious bony lesions. Overlying soft tissues appear unremarkable. IMPRESSION: Biapical emphysematous change. No acute pulmonary infiltrate. ECG Data Interpretation: On independent evaluation of patient's EKG I see a sinus tachycardia with a rate of 120 pr interval 134 QTC is 398 I do not see any signs of significant ST segment elevation depression or abnormalities meeting STEMI criteria MDM Narrative Medical decision making narrative: INITIAL EVALUATION AND PLAN: - Possible right lower lobe pneumonia on chest X-ray - Differential includes infectious process (pneumonia, abdominal source), consideration of prior liver/kidney issues - Plan: - Review current and prior chest X-rays for comparison - Blood work: CBC, CMP, infection markers - Consider CT imaging if indicated - Start antibiotics if pneumonia confirmed - Monitor oxygenation and vital signs ED Course: The patient presented with severe right flank pain, increased work of breathing, and fever. Initial evaluation included a chest X-ray, which suggested possible right lower lobe pneumonia. Blood work including CBC, CMP, and infection markers was ordered to further investigate the source of infection. The plan included reviewing current and prior chest X-rays for comparison and considering CT imaging if necessary. Antibiotics were planned to be initiated upon confirmation of pneumonia. The patient?s oxygenation and vital signs were closely monitored throughout the ED course. Differential Diagnoses: Pneumonia, Infectious process, Pyelonephritis, Pulmonary embolism, Aortic dissection, Diverticulitis recurrence, Empyema Complexity of Problems Addressed: The patient presents with severe, persistent right flank pain, fever, and increased work of breathing, which are concerning for an acute infectious process such as pneumonia or an abdominal source of infection. The history of stage 4 COPD, emphysema, asthma, and chronic oxygen dependence further complicates the clinical picture, as these conditions pose a significant risk for respiratory compromise. Additionally, the recent history of diverticulitis, colonic infection, and pneumonia raises the possibility of recurrent or unresolved infections, which could lead to systemic complications. The presence of chronic tachycardia, worsened over the past few months, adds another layer of complexity, as it may indicate underlying cardiovascular stress or systemic illness. These factors collectively suggest a high risk of morbidity and potential life-threatening complications without prompt intervention. Ordered Labs: - CBC - CMP - infection markers Ordered Tests/Imaging: - Chest X-Ray - CT Imaging abdomen pelvis Patient's labs and imaging as documented above show evidence of likely pneumonia and diverticulitis, patient has received antibiotics to cover these pathologies and given his persistent tachycardia worsening oxygen requirement believe he will likely need to be admitted to the hospital for ongoing management of his symptoms. -CTs show new multifocal pneumonia as well as new diverticulitis, patient started on ceftriaxone azithromycin, metronidazole and the patient was admitted to the hospitalist for ongoing management of his multiple infectious sources increased work of breathing and generalized deconditioning and concern for increased work of breathing. Discharge Plan Departure Patient Disposition: Admitted As Inpatient Clinical Impression: Pneumonia Admit Date/Time: 12/13/24 19:49 Admit Provider: Elvis Cole
[2024-12-13] MEDS: metroNIDAZOLE 500 MG/100 ML PIGGYBACK 100 MG IV (20:09)
[2024-12-13 20:55] LABS: Lactate 2HR (Lactic Acid Rflx) 0.9 mmol/L (0.7-2.1)
[2024-12-13 21:04] LABS: NT-proBNP (BNP-Adult 18+) 153 pg/mL (<125)
[2024-12-13] MEDS: ALBUTEROL 2.5 MG/3 ML NEB (ADULT) INH (22:18)
[2024-12-13] MEDS: PIPERACILLIN/TAZO 4.5 GM in SODIUM CHLORIDE 0.9% 100 ML IV (22:34)
[2024-12-13] MEDS: SODIUM CHLORIDE 0.9% 1,000 ML 100 ML IV (22:35)
[2024-12-13] MEDS: SENNOSIDES 8.6 MG TABLET 17.2 MG PO (22:35)
[2024-12-13] MEDS: methylPREDNISolone 125 MG/2 ML VIAL 80 MG IV (22:35)
[2024-12-13] MEDS: LORATADINE 10 MG TABLET PO (22:35)
[2024-12-13] MEDS: clonazePAM 0.5 MG TABLET PO (22:35)
[2024-12-13] MEDS: ATORVASTATIN 20 MG TABLET 10 MG PO (22:35)
--- NOTE | 2024-12-13 23:00 | PM.HP.1 ---
History of Present Illness History of Present Illness Date Patient Seen: 12/13/24 Time Patient Seen: 23:00 Chief complaint: Fever, cough for x1 day Narrative: The pt is a 64 yo who was in the hospital 6 weeks ago for Diverticulitis and pneumonia and has been home ever since but he started having fevers, chills, and abdominal pain bout 2-3 days ago. He states that he normally is very sedentary, uses a wheelchair for ambulation and needs assistance with any type of transfers for unknown reasons. He blames he disability on doctors not listening to me. The pt has never had a colonoscopy but he states it would kill me and anesthesiologist wont work with him because of his multiple allergies. Mak saw a nursing associate on 11/01 who reports that he has progressive COPD emphysema and his FEV1 was 26% and uses 2-3 lpm at home and continues to smoke despite these findings. His last BM was yesterday which he reports was normal. No melana, hematochezia, nausea, vomiting, he thinks he has difficulty swallowing. [facility] Medical History Lung nodule seen on imaging study History of tobacco abuse Fatigue Ventricular tachycardia (paroxysmal) Anemia Palpitations GERD with stricture HTN (hypertension) Insomnia (~2015) Hyperlipidemia (~2015) Anxiety (~2015) COPD (chronic obstructive pulmonary disease) (~2013) Asthma (Unknown) TIA (transient ischemic attack) (05/2014) Hematuria (~2014) Surgical History No pertinent past surgical history Family History Mother Age: 86 Hypertension Sister Age: 69 Cancer Social History household members: none Smoking Status: Former smoker Tobacco: How many years used: 47 quit status: considering quitting second hand exposure: No alcohol intake: former substance use type: does not use Meds Home Medications and Allergies Home Medications ?Medication ?Instructions ?Recorded ?Confirmed ?Type ascorbate calcium (vitamin C) 500 500 mg PO DAILY 08/06/23 12/13/24 History mg tablet ferrous gluconate 324 mg (38 mg 324 mg PO DAILY #90 tabs 03/28/24 12/13/24 Rx iron) tablet aluminum-mag hydroxide-simethicone 20 ml PO BID 05/14/24 12/13/24 History 400 mg-400 mg-40 mg/5 mL oral susp multivitamin with minerals-folic 1 tab PO DAILY 05/14/24 12/13/24 History acid 0.4 mg tablet nystatin 100,000 unit/mL oral 5 ml PO QID PRN thrush 05/14/24 12/13/24 History suspension Disabled Parking Permint #1 ea 07/01/24 12/13/24 Rx mometasone-formoterol HFA 200 2 puff PO BID #13 grams 07/22/24 12/13/24 Rx mcg-5 mcg/actuation aerosol inhaler (Dulera) cetirizine 10 mg tablet 10 mg PO BEDTIME allergy/asthma 08/25/24 12/13/24 History clonazepam 0.5 mg tablet 0.5 mg PO TID #90 tabs 08/25/24 12/13/24 Rx guaifenesin 100 mg/5 mL oral liquid 200 mg PO Q4H PRN cough 08/25/24 12/13/24 History mecobalamin (vitamin B12) 1,000 1,000 mcg PO DAILY 08/25/24 12/13/24 History mcg chewable tablet nitroglycerin 0.3 mg sublingual 0.3 mg sublingual Q5-15M PRN chest 08/25/24 12/13/24 Rx tablet pain #20 tabs simvastatin 20 mg tablet 20 mg PO QPM #90 tabs 08/25/24 12/13/24 Rx albuterol sulfate 2.5 mg/3 mL 2.5 mg (3 mL) inhalation QID PRN 09/09/24 12/13/24 Rx (0.083 %) solution for nebulization shortness of breath or wheezing #180 mL albuterol sulfate 90 mcg/actuation 1 - 2 puff PO Q4H PRN for wheezing 09/09/24 12/13/24 Rx aerosol inhaler (Ventolin HFA) #54 grams ipratropium bromide 0.02 % 2.5 ml inhalation QID PRN 09/09/24 12/13/24 Rx solution for inhalation shortness of breath or wheezing #150 mL montelukast 10 mg tablet 10 mg PO BEDTIME #90 tabs 10/11/24 12/13/24 Rx hydrocodone 5 mg-acetaminophen 325 2 tab PO Q4H PRN Pain, Severe 10/28/24 12/13/24 Rx mg tablet (7-10) #20 tabs ondansetron 4 mg disintegrating 4 mg PO Q8H PRN nausea and 10/28/24 12/13/24 Rx tablet vomiting #14 tabs acetaminophen 500 mg tablet 500 mg PO Q6H PRN Pain (Scale 10/31/24 12/13/24 History Score 1-3) polyethylene glycol 3350 17 17 g PO DAILY PRN constipation 10/31/24 12/13/24 History gram/dose oral powder benzonatate 100 mg capsule 100 mg PO BID-TID PRN Cough #270 11/01/24 12/13/24 Rx caps prednisone 10 mg tablet See Rx Instructions PO .COMPLEX 11/01/24 12/13/24 Rx #76 tabs Allergies Allergy/AdvReac Type Severity Reaction Status Date / Time cinnamon (CINNAMON) Allergy Severe RESP Verified 12/13/24 16:37 PROBLEMS AND SWELLING Sulfa (Sulfonamide Allergy Severe anaphylacti Verified 12/13/24 16:37 Antibiotics) (SULFA c (SULFONAMIDE ANTIBIOTICS)) fluticasone (FLUTICASONE) Allergy Intermediate FEELS Verified 12/13/24 16:37 LIKE FIRE IN THE LUNGS trimethoprim (TRIMETHOPRIM) Allergy Unknown Patient Verified 12/13/24 16:37 can't remember dextromethorphan AdvReac Severe Difficulty Verified 12/13/24 16:37 Breathing fentanyl AdvReac Severe Difficulty Verified 12/13/24 16:37 Breathing codeine (CODEINE) AdvReac Intermediate violent Verified 12/13/24 16:37 doxycycline (DOXYCYCLINE) AdvReac Mild N/V Verified 12/13/24 16:37 Exam Vital Signs (past 8 hours): - 12/13/24 16:33 12/13/24 16:36 12/13/24 17:00 Temperature 98.7 F Pulse Rate 118 H 117 H Respiratory Rate 18 23 Blood Pressure 138/70 129/63 Pulse Oximetry 95 95 Oxygen Delivery Method Room Air Oxygen Flow Rate 12/13/24 17:00 12/13/24 17:30 12/13/24 17:30 Temperature Pulse Rate 115 H 119 H Respiratory Rate 16 14 Blood Pressure 137/65 Pulse Oximetry 95 92 Oxygen Delivery Method Oxygen Flow Rate 12/13/24 18:14 12/13/24 18:21 12/13/24 18:21 Temperature Pulse Rate 119 H 119 H Respiratory Rate 26 H Blood Pressure 142/69 H Pulse Oximetry 90 L 92 Oxygen Delivery Method Nasal Cannula Oxygen Flow Rate 2 12/13/24 18:30 12/13/24 18:30 12/13/24 19:00 Temperature Pulse Rate 115 H Respiratory Rate 16 Blood Pressure 136/66 104/55 L Pulse Oximetry 94 Oxygen Delivery Method Oxygen Flow Rate 12/13/24 19:00 12/13/24 19:30 12/13/24 19:30 Temperature Pulse Rate 115 H 111 H Respiratory Rate 20 26 H Blood Pressure 102/57 L Pulse Oximetry 94 94 Oxygen Delivery Method Oxygen Flow Rate 12/13/24 20:00 12/13/24 20:00 12/13/24 20:29 Temperature Pulse Rate 110 H 115 H Respiratory Rate 20 19 Blood Pressure 111/58 L Pulse Oximetry 94 94 Oxygen Delivery Method Nasal Cannula Oxygen Flow Rate 2 12/13/24 20:30 12/13/24 20:30 12/13/24 20:59 Temperature Pulse Rate 117 H 111 H Respiratory Rate 20 23 Blood Pressure 105/57 L Pulse Oximetry 89 L 94 Oxygen Delivery Method Nasal Cannula Oxygen Flow Rate 2 12/13/24 21:00 12/13/24 21:25 Temperature 100.3 F H Pulse Rate 120 H Respiratory Rate 24 Blood Pressure 108/56 L 100/67 Pulse Oximetry 93 Oxygen Delivery Method Oxygen Flow Rate 2.5 Oxygen Delivery Method Nasal Cannula Oxygen Flow Rate 2.5 Const General: cooperative, comfortable and No acute distress Resp Effort & Inspection: normal respiratory effort and able to speak in complete sentences Auscultation: wheezes Cardio Rate: regular rate Rhythm: regular rhythm GI Palpation: tender Auscultation: normal bowel sounds Objective Labs 12/13/24 16:26 12/13/24 16:26 Labs: Laboratory Results - last 24 hr 12/13/24 12/13/24 16:26 20:31 WBC 13.5 H RBC 4.28 L Hgb 11.6 L Hct 37.5 L MCV 87.7 MCH 27.1 MCHC 30.9 RDW 16.4 H Plt Count 214 Neut % (Auto) 80.2 H Lymph % (Auto) 11.9 L [place] % (Auto) 7.2 Eos % (Auto) 0.4 L Baso % (Auto) 0.3 Neut # (Auto) 12756 H Lymph # (Auto) 1600 [place] # (Auto) 1000 H Eos # (Auto) 100 Baso # (Auto) 0 PT 10.8 INR 1.0 Sodium 139 Potassium 3.9 Chloride 97 L Carbon Dioxide 35 H BUN 15 Creatinine 0.93 Estimated GFR > 60 BUN/Creatinine Ratio 16.1 Glucose 95 Lactate 2.3 H 0.9 Calcium 9.8 Total Bilirubin 0.5 AST 34 ALT 21 Alkaline Phosphatase 76 Troponin I < 0.012 NT-Pro-B Natriuret Pep 117 153 H Total Protein 7.7 Albumin 4.2 Globulin 3.5 Albumin/Globulin Ratio 1.2 Assessment & Plan Assessment & Plan narrative: I have spoken with the ER provider and agree with the decision for admission. I have personally reviewed the labs listed above and imaging which was discussed with the ER provider and with the pt. Uncertain why he is having a recurrence for the pneumonia and diverticulitis. Will empirically start the pt on rocephin and zosyn for the possible anaerobes for the lung and gut. Consider speech therapy, on IVF, antiemetics ordered PRN, PO & IV pain meds available. repeatng labs in am. I, Elvis Cole in [place] has seen and examined Mak Rose in [place] using audio & video telemedicine with the patients consent and nursing assistance Time-Based Coding :: [TOTAL MINUTES] spent with patient and on the chart (including review of chart, obtaining history, exam, reviewing outside data, placing orders, documenting exam and treatment plan, and counseling patient) on [DATE]. Quality VTE Deep Vein Thrombosis/Pulmonary Embolism Present on Admission: No
[2024-12-14] VITALS (12 sets, daily range): BP systolic 108–151; BP diastolic 59–82; PULSE 79–107; RESP 19–20; TEMP 36.2–37.3; O2SAT 93–100
[2024-12-14] MEDS: PIPERACILLIN/TAZO 3.375 GM in SODIUM CHLORIDE 0.9% 100 ML IV ×4 (00:35→23:19)
[2024-12-14] MEDS: methylPREDNISolone 125 MG/2 ML VIAL 80 MG IV ×3 (04:43→20:47)
[2024-12-14 05:21] LABS: Add Manual Diff / Slide Review NO; Basophils Absolute Auto 0 /uL (0-100); Basophils Percent Auto 0.2 % (0-2); Eosinophils Absolute Auto 0 /uL (0-450); Hematocrit 34.8 % (41-53); Hemoglobin 10.8 g/dL (13.5-17.5); Lymphocytes Absolute Auto 800 /uL (1100-4500); Lymphocytes Percent Auto 4.1 % (25-40); Mean Corpuscular HGB Conc 30.9 % (30-36); Mean Corpuscular Hemoglobin 26.9 PG (26-34); Mean Corpuscular Volume 86.9 fL (80-100); Monocytes Absolute Auto 300 /uL (0-900); Monocytes Percent Auto 1.5 % (3-14); Neutrophils Absolute Auto 17400 /uL (1500-7000); Neutrophils Percent Auto 94.2 % (50-75); Platelet Count 177 X10^3/uL (150-400); Red Blood Cell Count 4.01 X10^6/uL (4.5-5.9); Red Cell Distribution Width 16.4 % (11.6-14.8); White Blood Cell Count 18.5 X10^3/uL (4.5-11.0)
[2024-12-14 05:37] LABS: Alanine Aminotransferase 17 IU/L (<50); Albumin 3.5 g/dL (3.5-5.0); Albumin Globulin Ratio 1.1 (1.0-2.8); Alkaline Phosphatase 59 U/L (38-126); Aspartate Aminotransferase 23 IU/L (17-59); BUN Creatinine Ratio 15.1 (6-22); Bilirubin Total 0.4 mg/dL (0.2-1.3); Blood Urea Nitrogen 16 mg/dL (9-20); Calcium 9.1 mg/dL (8.4-10.2); Carbon Dioxide 32 mmol/L (22-32); Chloride 101 mmol/L (98-107); Estimated Glomerular Filt Rate > 60 mL/min (>60); Globulin 3.2 g/dL (1.7-4.1); Glucose 167 mg/dL (70-99); HEMOLYSIS < 15 (0-50); Potassium 4.8 mmol/L (3.4-5.1); Sodium 137 mmol/L (137-145); Total Protein 6.7 g/dL (6.3-8.2)
[2024-12-14] MEDS: ALBUTEROL/IPRATROPIUM 3 ML AMPUL INH ×3 (07:37→19:34)
[2024-12-14] MEDS: SENNOSIDES 8.6 MG TABLET 17.2 MG PO ×2 (08:42→20:48)
[2024-12-14] MEDS: clonazePAM 0.5 MG TABLET PO ×3 (08:42→20:48)
[2024-12-14] MEDS: polyethylene glycoL 3350 17 GM POWD.PACK PO (08:42)
[2024-12-14] MEDS: ENOXAPARIN 40 MG/0.4 ML SYRINGE SUBCUT (08:43)
[2024-12-14] MEDS: CALCIUM CARBONATE 500 MG TAB PO (14:06)
--- NOTE | 2024-12-14 15:14 | P.PN_ITS ---
Subjective Subjective Date Patient Seen: 12/14/24 Interval history: Chief complaint: Fever cough right-sided pleuritic pain and right-sided abdominal pain setting diverticulitis and possible pneumonia History of present illness: The pt is a 64 yo who was in the hospital 6 weeks ago for Diverticulitis and pneumonia and has been home ever since but he started having fevers, chills, and abdominal pain bout 2-3 days ago. He states that he normally is very sedentary, uses a wheelchair for ambulation and needs assistance with any type of transfers for unknown reasons. He blames he disability on doctors not listening to me. The pt has never had a colonoscopy but he states it would kill me and anesthesiologist wont work with him because of his multiple allergies. Mak saw a inorganic chemistry professor on 11/01 who reports that he has progressive COPD emphysema and his FEV1 was 26% and uses 2-3 lpm at home and continues to smoke despite these findings. His last BM was yesterday which he reports was normal. No melana, hematochezia, nausea, vomiting, he thinks he has difficulty swallowing. Patient admitted placed on IV Solu-Medrol Zosyn and ceftriaxone CTA of the chest abdomen and pelvis: 1. No signs of pulmonary emboli. 2. Severe COPD, with moderate improvement of previously seen right upper lobe pneumonia, new mild to moderate right lower lobe pneumonia versus aspiration and stable left lower lobe areas of consolidation. No significant pleural effusion. 3. Findings most suggestive of new mild colitis versus diverticulitis in the mid transverse colon, with persistent mild inflammatory changes in the descending and sigmoid colon. No signs of complications. Hospital course: 12/14: Pain with coughing sometimes movement the right mid axillary line lower costal margin and with palpation White count increased but patient clinically is not worsened likely due to Solu- Medrol 80 mg IV Q 8 started by skating carhop We will discontinue ceftriaxone and continue Zosyn Might need to consider a modified barium swallow Review of systems: Lightheaded and dizzy with physical movement No vomiting No diarrhea Physical exam: Alert cogent elderly male HEENT unremarkable Lungs diminished breath sounds Abdomen is tender right flank nondistended Assessment and plan: Recurrent pneumonia and question of aspiration COPD with acute exacerbation acute on chronic hypoxic respiratory failure * Empiric Zosyn, ceftriaxone discontinued * Continue high-dose steroid for today * Modified barium swallow * Supplemental oxygen as needed Recurrent colitis and diverticulitis * Empiric Zosyn * Monitor clinical progress DVT prophylaxis * Enoxaparin Code status: * Full code Exam Vital Signs (past 8 hours): - 12/14/24 07:40 12/14/24 08:00 12/14/24 11:00 Temperature 97.8 F Pulse Rate 79 Respiratory Rate 20 Blood Pressure 111/59 L Pulse Oximetry 98 97 94 Oxygen Delivery Method Nasal Cannula Nasal Cannula Oxygen Flow Rate 2.5 2.5 2 Fraction of Inspired Oxygen 30 Fraction of Inspired Oxygen 30 SaO2/FiO2 Ratio 326 Oxygen Delivery Method Nasal Cannula Oxygen Flow Rate 2 Objective Labs 12/14/24 05:08 12/14/24 05:08 Labs: Laboratory Results - last 24 hr 12/13/24 12/13/24 12/14/24 16:26 20:31 05:08 WBC 13.5 H 18.5 H RBC 4.28 L 4.01 L Hgb 11.6 L 10.8 L Hct 37.5 L 34.8 L MCV 87.7 86.9 MCH 27.1 26.9 MCHC 30.9 30.9 RDW 16.4 H 16.4 H Plt Count 214 177 Neut % (Auto) 80.2 H 94.2 H Lymph % (Auto) 11.9 L 4.1 L [place] % (Auto) 7.2 1.5 L Eos % (Auto) 0.4 L 0.0 L Baso % (Auto) 0.3 0.2 Neut # (Auto) 33338 H 81636 H Lymph # (Auto) 1600 800 L [place] # (Auto) 1000 H 300 Eos # (Auto) 100 0 Baso # (Auto) 0 0 PT 10.8 INR 1.0 Sodium 139 137 Potassium 3.9 4.8 Chloride 97 L 101 Carbon Dioxide 35 H 32 BUN 15 16 Creatinine 0.93 1.06 Estimated GFR > 60 > 60 BUN/Creatinine Ratio 16.1 15.1 Glucose 95 167 H Lactate 2.3 H 0.9 Calcium 9.8 9.1 Total Bilirubin 0.5 0.4 AST 34 23 ALT 21 17 Alkaline Phosphatase 76 59 Troponin I < 0.012 NT-Pro-B Natriuret Pep 117 153 H Total Protein 7.7 6.7 Albumin 4.2 3.5 Globulin 3.5 3.2 Albumin/Globulin Ratio 1.2 1.1 PFSH Medical History Lung nodule seen on imaging study History of tobacco abuse Fatigue Ventricular tachycardia (paroxysmal) Anemia Palpitations GERD with stricture HTN (hypertension) Insomnia (~2015) Hyperlipidemia (~2015) Anxiety (~2015) COPD (chronic obstructive pulmonary disease) (~2013) Asthma (Unknown) TIA (transient ischemic attack) (05/2014) Hematuria (~2014) Surgical History No pertinent past surgical history Family History Mother Age: 86 Hypertension Sister Age: 69 Cancer Social History household members: none Tobacco: How many years used: 47 quit status: considering quitting second hand exposure: No alcohol intake: former substance use type: does not use Assessment & Plan Time-Based Coding :: 35 minutes spent with patient and on the chart (including review of chart, obtaining history, exam, reviewing outside data, placing orders, documenting exam and treatment plan, and counseling patient). Quality VTE Deep Vein Thrombosis/Pulmonary Embolism Present on Admission: No
--- NOTE | 2024-12-14 15:23 | CM.DANOTE ---
Initial DCP Assessment Visit Note Reviewed EMR and team rounds for status updates. Went to meet with pt in the room, however he was deeply sleeping and has been all day. Pt lives modified independently in his own home here in [place]. He has a very involved sister and mother as his primary supports. He may need a cabulance for the ride home. He does have Medicaid Transportation. Payor: Medicare PCP: Dr. Saqib Oliva Pt is a 64 year-old M who is well known to this hospital team, he has a hx of stage 4 COPD, asthma, and is O2 dependent at home on 2L. Pt is quite frail, presented to the ED with complains of severe R-sided flank bull, SOB, and a fever. Pt had just ended his last course of antibiotics 2-weeks ago for R-sided pneumonia, and has had several hospitalizations for respiratory and diverticulitis flares. ED imaging was positive for R-sided pneumonia, and also diverticulitis again. He was started on IV ABO's and admitted to the floor for further eval and tx. DCP will continue to monitor for final d/c needs and recommendations. Discharge Planning/Care Management Advanced directive, confirm from FAMILY Start: 12/13/24 22:19 Freq: Q24H Status: Active Protocol: Document 12/13/24 22:19 LW (Rec: 12/13/24 23:00 LW [id number]) Advance Directive, confirm on record Time 23:00 Person contacted patient Copy received No CM Discharge Assessment Start: 12/13/24 21:14 Freq: Status: Active Protocol: Document 12/14/24 15:16 DPL (Rec: 12/14/24 15:21 DPL [id number]) Discharge Planning Assessment Assigned Discharge GILDA [place] [employer] Advance Directives? No Advance Directives No on File History Provided By Medical Record Expected Length of 3 Stay Has Patient been No admitted in last 30 days? Prior Living House Arrangements Household Members none Type of Relies on Others transporation used prior to admit Independent with ADL No: modified independent with a walker and family 's assistance Is patient alert and No oriented? Needs Assistance Home Chores / Shopping With Caregiver for No Another Community Services Oxygen Therapy used prior to admission: Comment His oxygen is provided with [employer]. Patient/Family Retirement Facility,Home with Home Health Preference Comment Patient has caregivers through [facility] that come in, and he also has family in the area. Discharge Plan Retirement Facility Transportation Facility [place] Arrangement Referrals Initiated Retirement Additional Comment Resumption of [facility] If patient plan is No: not needed, Resume Orders home with home health: Has signed face to face form been completed? If patient plan is Yes SNF: Has PASSR been completed? Whiteboard Updated Yes in Patient Room with name and ext. # of Endoscopy Rn Review Status In Process Please Provide Date 12/14/24 Initial DC Assessment Was Performed
--- NOTE | 2024-12-14 15:45 | PT.IIE ---
Surgical History (Last Reviewed 12/09/24 @ 11:33 by Saqib Oliva DO) No pertinent past surgical history Medical History (Last Reviewed 12/09/24 @ 11:33 by Saqib Oliva DO) Anemia Anxiety (~2015) Asthma (Unknown) COPD (chronic obstructive pulmonary disease) (~2013) Fatigue GERD with stricture Hematuria (~2014) History of tobacco abuse HTN (hypertension) Hyperlipidemia (~2015) Insomnia (~2015) Lung nodule seen on imaging study Palpitations TIA (transient ischemic attack) (05/2014) Ventricular tachycardia (paroxysmal) Physical Therapy Inpatient Evaluation/Re-Eval M1 PT/OT-IP Prior Functional Status Start: 12/14/24 18:18 Freq: NEEDED Status: Active Protocol: Document 12/14/24 15:45 AB (Rec: 12/14/24 18:29 AB [id number]) Medical Review Prior Functional Status Medical History Yes Reviewed Communication able to make needs known Mobility and Gait pt sleeps on his recliner and is w/c bound. able to step transfer without AD. pt uses home O2. Activities of Daily Pt has assist for showers but otherwise per pt able to Living and IADL's do all other ADL needs. Pt has caregivers 3x/week for up to 6 hours to assist with IADl and ADL's as needed. Prior Functional Pt's mom and sister live nearby. Level (Other details ) Social History Household Members none Living Arrangements House Number of Floors ( One Floor Floors) Number of Stairs To No steps Enter/Railing? Home Environment Standard Height Toilet,Walk in Shower Home Equipment Power Wheelchair/Scooter,Bedside Commode,Shower Seat without Backrest,Hand Held Shower,Cell Repairer,Bed Rails, Grab Bars In Shower Additional Social Pt sleep in his recliner History Comment pt has caregivers that comes in to assist him but stated that frequency is not consistent M2 PT-IP Current Condition Start: 12/14/24 18:18 Freq: NEEDED Status: Active Protocol: Document 12/14/24 15:45 AB (Rec: 12/14/24 18:29 AB [id number]) Physical Therapy Current Condition Current Condition Evaluation Date 12/14/24 Treatment Diagnosis PNA; generalized weakness Onset Date 12/13/24 M3 PT-IP Subjective Start: 12/14/24 18:18 Freq: NEEDED Status: Active Protocol: Document 12/14/24 15:45 AB (Rec: 12/14/24 18:29 AB [id number]) Subjective Physical Therapy Visit Type Type Initial Evaluation Visit Start Time 15:45 Visit Stop Time 16:25 Number of AUTO PARTS COUNTER PERSON Visits 0 Physical Therapy Visit Comments Patient Comments agreeable to do PT M4 PT-IP Mobility and Gait Start: 12/14/24 18:18 Freq: NEEDED Status: Active Protocol: Document 12/14/24 15:45 AB (Rec: 12/14/24 18:29 AB [id number]) PT-Bed Mobility Assessment Supine to Sit Supine to Sit Standby Assistance PT-Transfer Assessment Sit to and From Stand Sit to and from Standby Assistance,1 Person Assistance,Use of Upper Stand Extremities Equipment Transfer Assistive None,Gait Belt Device Orthotic/Prosthetic No Devices or Brace: Transfers Transfer Destination Bed,Wheelchair Transfer Technique Stand Step Pivot Transfer Ability Level of Assist Standby Assistance,1 Person Assistance,Use of Upper Extremities Comments Mobility Comments pt in bed and agreeable to do PT. obtained PLOF and home set up. O2 sat with O2 on: 96%. supine to sit SBA. able to sit on EOB SBA. needed increase and frequent rest breaks. positioned w/c in front of pt to transfer. completed sit to stand sBA and was able to step transfer using arm rests of w/c for support and was able to turn and sit on w/c SBA. O2 sat: 89%. increased to 91% in less than 10 sec. pt rested again. step transfer back to EOB SBA. OT came in and took over pt's care. informed pt that currently no further PT needs. PT-Balance Assessment Sitting Balance and Reactions Static Sitting Normal Balance Ability Dynamic Sitting Good Balance Ability M5 PT-IP Objective Assessments Start: 12/14/24 18:18 Freq: NEEDED Status: Active Protocol: Document 12/14/24 15:45 AB (Rec: 12/14/24 18:29 AB [id number]) Orientation Orientation/Cognition Level of Alertness Alert Orientation Name,Place,Situation Language Function No Deficits Noted Ability Safety Awareness Decreased Safety Awareness Memory Description No Deficits Noted Gross Range of Motion Lower Extremity ROM Assessment Within Functional Limits Strength Lower Extremity Strength Assessment Within Functional Limits Muscle Tone Muscle Tone WNL Yes M6 PT-IP Treatment Start: 12/14/24 18:18 Freq: NEEDED Status: Active Protocol: Document 12/14/24 15:45 AB (Rec: 12/14/24 18:29 AB [id number]) Physical Therapy Treatment Education Education Provided Safety M7 PT-IP Assessment and Plan Start: 12/14/24 18:18 Freq: NEEDED Status: Active Protocol: Document 12/14/24 15:45 AB (Rec: 12/14/24 18:29 AB [id number]) PT Summary Assessment and Plan Potential Rehabilitation Fair Potential Status of Condition Stable at Evaluation Summary Impairments Pain,ROM,Strength,Balance,Coordination,Sensation,Tone, Cognition,Bed Mobility,Transfers,Gait,Activity Tolerance Assessment Summary pt is a 64 y/o M who is admitted for PNA. pt is non- ambulatory and w/c bound. pt able to complete step transfer SBA. O2 sat stable with O2 on. pt with decrease activity tolerance but had chronic COPD and pt stated that he has Stage III COPD. Pt is at prior level of function and no further PT needs at this time. will d/c PT. Goals Bed Mobility Goal Independent Transfer Goal Standby Assistance Days to Meet Goals 1 Frequency of Treatment Frequency Of Discharge Treatment Treatment Plan Physical Therapy Bed Mobility Training,Transfer Training,Gait Training, Treatment Plan Therapeutic Exercise,Balance Retraining,Discharge Planning,Hot or Cold Pack,Neuromuscular Re-ed, Coordination Retraining,Manual Therapy Recommendations To Nursing Amount of Assist Standby Assistance Needed Discharge Recommendations PT Discharge Home with Assistance Recommendations Transportation Needs Private Vehicle,Wheelchair/Cabulance at Discharge - PT assist 1
[2024-12-14] MEDS: cefTRIAXone 1,000 MG in SODIUM CHLORIDE 0.9% 100 ML 200 MG IV (16:20)
--- NOTE | 2024-12-14 17:00 | OT.IP.EVAL ---
Past Medical History (Last Reviewed 12/09/24 @ 11:33 by Saqib Oliva DO) Anemia Anxiety (~2015) Asthma (Unknown) COPD (chronic obstructive pulmonary disease) (~2013) Fatigue GERD with stricture Hematuria (~2014) History of tobacco abuse HTN (hypertension) Hyperlipidemia (~2015) Insomnia (~2015) Lung nodule seen on imaging study Palpitations TIA (transient ischemic attack) (05/2014) Ventricular tachycardia (paroxysmal) Surgical History (Last Reviewed 12/09/24 @ 11:33 by Saqib Oliva DO) No pertinent past surgical history Occupational Therapy Inpatient Evaluation/Re-Eval M1 PT/OT-IP Prior Functional Status Start: 12/14/24 17:47 Freq: Status: Active Protocol: Document 12/14/24 17:48 [facility] (Rec: 12/14/24 18:10 [facility] Desktop) Medical Review Prior Functional Status Communication I Mobility and Gait Pt just transfers from his recliner to power wheelchair and then to the toilet. Activities of Daily Pt has assist for showers but otherwise per pt able to Living and IADL's do all other ADL needs. Pt has caregivers 3x/week for up to 6 hours to assist with IADl and ADL's as needed. Prior Functional Pt's mom and sister live nearby. Level (Other details ) Social History Household Members none Living Arrangements House Number of Stairs To No steps Enter/Railing? Home Environment Standard Height Toilet,Walk in Shower Home Equipment Power Wheelchair/Scooter,Bedside Commode,Shower Seat without Backrest,Hand Held Shower,Lime Kiln Tender,Bed Rails, Grab Bars In Shower Additional Social Pt sleep in his recliner History Comment M2 OT-IP Current Condition Start: 12/14/24 17:47 Freq: Status: Active Protocol: Document 12/14/24 17:48 [facility] (Rec: 12/14/24 18:10 [facility] Desktop) Occupational Therapy Current Condition Current Condition Evaluation Date 12/14/24 Treatment Diagnosis PNA,xdiverticulitis Diagnosis Onset Date 12/13/24 M3 OT- IP Subjective and Pain Start: 12/14/24 17:47 Freq: Status: Active Protocol: Document 12/14/24 17:48 [facility] (Rec: 12/14/24 18:10 [facility] Desktop) OT- Subjective Occupational Therapy Visit Type Type Initial Evaluation Visit Start Time 16:30 Visit Stop Time 17:00 Occupational Therapy Visit Comments Patient Comments Pt just finishing seeing PT and agreed to do OT eval. Patient/Caregiver To go home when medically stable. Goals OT Pain Assessment Pain When Pain Assessed At Rest Pain Present Pain Present Pain Reported Location Right Abdomen Pain Behaviors Holding Area M4 OT- IP ADL's Start: 12/14/24 17:47 Freq: Status: Active Protocol: Document 12/14/24 17:48 [facility] (Rec: 12/14/24 18:10 [facility] Desktop) OT [id number] Comments OT Self-Feeding Not at meal time. Comments OT ADL-Grooming Comments OT Grooming Comments Not observed. OT ADL-Oral Care Comments Oral Care Comments Not observed. OT ADL-Dressing Comments OT Dressing Comments Pt not wanting to do at this time. Re-educated pt of dong LB dressing needs in supine for energy conservation. OT ADL-Toileting Comments OT Toileting Pt not having to go at this time. Pt is concerned about Comments being able to do his hygiene needs for pericare. Suggested to have mirrors to be able to see to do his pericare needs or have assist. Spoke of getting a bidet or allowing caregivers to assist. Pt states just will allow one of the caregivers to help only. OT ADL-Bathing Comments OT Bathing Comments Pt will need assist. M5 OT- IP IADL's Start: 12/14/24 17:47 Freq: Status: Active Protocol: Document 12/14/24 17:48 [facility] (Rec: 12/14/24 18:10 [facility] Desktop) OT-Instrumental Activities of Daily Living Deficits IADL Deficits Deficits Identified Home Safety Awareness Awareness of Need Good Awareness for Assistance at Home Medication Management Medication Caregiver Provides Supervision Management Money Management Money Management Caregiver Provides Supervision Meal Preparation Meal Preparation Caregiver Provides Assist Payroll Examiner Payroll Examiner Caregiver Provides Assist M6 OT- IP Functional Cognition Start: 12/14/24 17:47 Freq: Status: Active Protocol: Document 12/14/24 17:48 [facility] (Rec: 12/14/24 18:10 [facility] Desktop) Cognitive Factors Limiting Selfcare Function Cognitive Ability Level of Alertness Alert Patient Orientation Name,Place,Situation Attention Span Capable of Focused Attention,Capable of Sustained Ability Attention Memory Description Short Term Impaired,Maintenance Person Impaired Safety Awareness Underestimates Need for Assistance Cognitive Comments Cognitive Assessment Pt able to follow commands but gets highly distracted Comments and off topic. Pt not able to recall safety and OT suggestions from last visit. Able to go over again safety suggestions and OT needs. Pt states lost the list that he was able to write down from OT session for last admission of things to do at home. OT- Vision and Hearing OT- Vision Assessment Vision Assessment NT, to assess. Comments M7 OT- IP Mobility and Balance Start: 12/14/24 17:47 Freq: Status: Active Protocol: Document 12/14/24 17:48 [facility] (Rec: 12/14/24 18:10 [facility] Desktop) OT- Bed Mobility Assessment Sit to Supine Sit to Supine Assist Standby Assistance OT-Transfer Assessment Comments Mobility Comments Per PT, pt just able to transfer from wc<>bed with SBA. OT- Balance Assessment Sitting Balance and Reactions Static Sitting Good Balance Ability M8 OT- IP Objective Assessments Start: 12/14/24 17:47 Freq: Status: Active Protocol: Document 12/14/24 17:48 [facility] (Rec: 12/14/24 18:10 [facility] Desktop) OT Gross Range of Motion Upper Extremity Range of Motion Assessment Within Functional Limits OT Strength Upper Extremity Strength Assessment Within Functional Limits M9 OT- IP Assessment and Plan Start: 12/14/24 17:47 Freq: Status: Active Protocol: Document 12/14/24 17:48 [facility] (Rec: 12/14/24 18:10 [facility] Desktop) OT Summary Assessment and Plan Potential Rehabilitation Fair Potential Analytic Complexity Moderate at Evaluation Summary OT Impairments Pain,Balance,Functional Mobility,Dressing,Toileting, Bathing,Toilet Transfers,Shower Transfers,Activity Tolerance Progress Towards Slow Progress due to Pain,Slow Progress due to Medical Goals Issues,Slow Progress due to Activity Tolerance Assessment Summary Pt MOD complexity and appears to be close to his baseline mobility as SBA for transfers. Pt is limited by his activity tolerance and endurance. Pt is a bit insistent on his needs. Pt to go home with 24/ available assist and home health. Goals Self-Feeding Goal Independent Grooming Goal Independent Dressing Goal Independent Toileting Goal Independent Toilet Transfer Goal Independent Patient/Caregiver Demonstrate Energy Conservation and Pacing Education Goal Days to Meet Goals 7 Frequency of Treatment Other frequency 5x/week Treatment Plan OT Treatment Plan ADL Training,Functional Cognition Training,Functional Mobility,Patient/Family Education,Discharge Planning Other Treatment LB dressing in supine Recommendations and Next Treatment Focus Discharge Recommendations OT Discharge Home with 24/ Assist Available,Home Health Recommendations Home Equipment Needs Bidet, toilet paper aid Transportation Needs Private Vehicle at Discharge
[2024-12-14] MEDS: MAG HYDROX/ALUM/SIMETH 30 ML UDC PO (17:21)
[2024-12-14] MEDS: ATORVASTATIN 20 MG TABLET 10 MG PO (20:48)
[2024-12-14] MEDS: LORATADINE 10 MG TABLET PO (20:48)
[2024-12-14] MEDS: SODIUM CHLORIDE 0.9% 1,000 ML 100 ML IV (23:19)
[2024-12-14] MEDS: ALBUTEROL 2.5 MG/3 ML NEB (ADULT) INH (23:25)
[2024-12-15] VITALS (12 sets, daily range): BP systolic 118–150; BP diastolic 66–82; PULSE 75–107; RESP 16–22; TEMP 36.5–37.6; O2SAT 93–98
[2024-12-15] MEDS: methylPREDNISolone 125 MG/2 ML VIAL 80 MG IV ×3 (04:51→20:40)
--- NOTE | 2024-12-15 07:31 | P.PN_ITS ---
Subjective Subjective Interval history: Chief complaint: Fever cough right-sided pleuritic pain and right-sided abdominal pain setting diverticulitis and possible pneumonia History of present illness: The pt is a 64 yo who was in the hospital 6 weeks ago for Diverticulitis and pneumonia and has been home ever since but he started having fevers, chills, and abdominal pain bout 2-3 days ago. He states that he normally is very sedentary, uses a wheelchair for ambulation and needs assistance with any type of transfers for unknown reasons. He blames he disability on doctors not listening to me. The pt has never had a colonoscopy but he states it would kill me and anesthesiologist wont work with him because of his multiple allergies. Mak saw a clerk general office on 11/01 who reports that he has progressive COPD emphysema and his FEV1 was 26% and uses 2-3 lpm at home and continues to smoke despite these findings. His last BM was yesterday which he reports was normal. No melana, hematochezia, nausea, vomiting, he thinks he has difficulty swallowing. Patient admitted placed on IV Solu-Medrol Zosyn and ceftriaxone CTA of the chest abdomen and pelvis: 1. No signs of pulmonary emboli. 2. Severe COPD, with moderate improvement of previously seen right upper lobe pneumonia, new mild to moderate right lower lobe pneumonia versus aspiration and stable left lower lobe areas of consolidation. No significant pleural effusion. 3. Findings most suggestive of new mild colitis versus diverticulitis in the mid transverse colon, with persistent mild inflammatory changes in the descending and sigmoid colon. No signs of complications. Hospital course: 12/14: Pain with coughing sometimes movement the right mid axillary line lower costal margin and with palpation White count increased but patient clinically is not worsened likely due to Solu- Medrol 80 mg IV Q 8 started by project reservoir engineer We will discontinue ceftriaxone and continue Zosyn Might need to consider a modified barium swallow. S: His breathing is feeling better. He was having a lot of abdomen distenion today. He had a bowel movement last night. He was belching a little bit. Exam Vital Signs (past 8 hours): - 12/15/24 04:00 12/15/24 06:00 Temperature 98.1 F Pulse Rate 89 Respiratory Rate 22 Blood Pressure 118/66 Pulse Oximetry 94 94 Oxygen Delivery Method Nasal Cannula Oxygen Flow Rate 2 2 Fraction of Inspired Oxygen 28 SaO2/FiO2 Ratio 357 Oxygen Delivery Method Nasal Cannula Oxygen Flow Rate 2 Narrative Exam Narrative: NAD, alert and oriented. Fluent speech. Lungs are clear with some scattered wheezing, normal rate and effort. Heart is regular, no murmur gallop or rub. Abdomen is soft, distended, and somewhat tender. Extremities are free of edema. Objective Labs 12/14/24 05:08 12/14/24 05:08 [facility] Medical History Lung nodule seen on imaging study History of tobacco abuse Fatigue Ventricular tachycardia (paroxysmal) Anemia Palpitations GERD with stricture HTN (hypertension) Insomnia (~2015) Hyperlipidemia (~2015) Anxiety (~2015) COPD (chronic obstructive pulmonary disease) (~2013) Asthma (Unknown) TIA (transient ischemic attack) (05/2014) Hematuria (~2014) Surgical History No pertinent past surgical history Family History Mother Age: 86 Hypertension Sister Age: 69 Cancer Social History household members: none Smoking Status: Former smoker Tobacco: How many years used: 47 quit status: considering quitting second hand exposure: No alcohol intake: former substance use type: does not use Assessment & Plan Assessment & Plan narrative: Recurrent pneumonia and question of aspiration COPD with acute exacerbation acute on chronic hypoxic and hypercarbic respiratory failure, improving. * Continue Zosyn. * Continue high-dose steroid. * Modified barium swallow when able. * Supplemental oxygen as needed. Recurrent colitis and diverticulitis * Empiric Zosyn. * Monitor clinical progress. * Add Simethicone. DVT prophylaxis. * Enoxaparin Time-Based Coding :: [TOTAL MINUTES] spent with patient and on the chart (including review of chart, obtaining history, exam, reviewing outside data, placing orders, documenting exam and treatment plan, and counseling patient) on [DATE]. Quality VTE Deep Vein Thrombosis/Pulmonary Embolism Present on Admission: No
[2024-12-15] MEDS: MAG HYDROX/ALUM/SIMETH 30 ML UDC PO ×2 (07:42→12:13)
[2024-12-15] MEDS: ENOXAPARIN 40 MG/0.4 ML SYRINGE SUBCUT (08:27)
[2024-12-15] MEDS: PIPERACILLIN/TAZO 3.375 GM in SODIUM CHLORIDE 0.9% 100 ML IV ×2 (08:27→16:32)
[2024-12-15] MEDS: SENNOSIDES 8.6 MG TABLET 17.2 MG PO ×2 (08:28→20:43)
[2024-12-15] MEDS: polyethylene glycoL 3350 17 GM POWD.PACK PO ×3 (08:28→20:45)
[2024-12-15] MEDS: clonazePAM 0.5 MG TABLET PO ×3 (08:28→21:45)
[2024-12-15] MEDS: ALBUTEROL/IPRATROPIUM 3 ML AMPUL INH ×3 (09:04→20:03)
--- NOTE | 2024-12-15 10:20 | DIET.CONS ---
Dietary Consultation Note Admission Date: 12/13/2024 19:49 Assessment: 64 y M admitted for pneumonia. Dietitian screened for low MNA. EMR reviewed. No significant weight loss recently. Recorded PO intakes 50-100% with pt ordering double protein serving 1x/day and German yogurt 1-2x/day. Per recent PCP note, pt reports improving oral intakes after last hospitalization and stable weight. No nutritional interventions needed at this time. Will monitor future PO intakes and f/u if >2 POs <75%. Ht: 175.26 cm Wt: 73.936 kg BMI: 24.0 UBW: 74.843 kg on 09/28/24, 79.152 kg on 08/10/24 (-6% weight loss in 6 months, non-severe), between 72-74 kg in 2023 Last BM: 12/14/24 (12/14/24 22:33) MNA: 8 Matthew Score: 17 Diet: 12/14/24 Breakfast General (Regular) Diet Diet Modifications: Nutrition Percent Meal Consumed 100% 12/15/24 09:08 Percent Meal Consumed 50% 12/14/24 18:00 Percent Meal Consumed 50% 12/14/24 15:00 Labs: RBC 4.01 X10^6/uL (4.5-5.9) L 12/14/24 05:08 Hgb 10.8 g/dL (13.5-17.5) L 12/14/24 05:08 Hct 34.8 % (41-53) L 12/14/24 05:08 Creatinine 1.06 mg/dL (0.66-1.25) 12/14/24 05:08 Lactate 0.9 mmol/L (0.7-2.1) 12/13/24 20:31 NT-Pro-B Natriuret Pep 153 pg/mL (<125) H 12/13/24 20:31 Electronically Signed by: Alyssa Srinivasan 12/15/24 10:20 Clinical Dietitian [address] [address]
--- NOTE | 2024-12-15 12:05 | CM.DPC ---
DCP Cont: Per MD, pt being treated for PNA and anticipate another 1-2 days before discharge home, no identified barriers to discharge. Per PT/OT, pt close to baseline and recommending return home with assist. Per previous recent admissions, pt lives alone in [place] and has [facility] CGs with [facility] (Thursday afternoon) and [facility] (Thu and 9am-3pm).. Pt has [facility] Cost Control Analyst Elizabeth (p [phone], [email or web address]) and [facility] CM Vera P [phone]. Pt's supportive mother lives locally and typically is bedside. DPOA is pt's sister Antonina ([phone]). Pt gets his home oxygen through [employer], 2lrs at baseline. History of [facility] and recently discharged to [facility] rehab before discharging home. SW met bedside with pt and mother and explained role and they confirm above information and pt states his preference is to discharge home at d/c and does not want to do SNF again and his mother confirms that she or family will provide transport at d/c. Pt aware that MD anticipates another 1-2 days before discharge. Pt historically will appeal his discharge through [facility] each time he has been admitted and discharged over the past year. Faxed clinicals to JENNIFER for his CM and coordinator to review. Plan: SW to follow for plan of discharge home via family POV when medically stable and pt high risk for appealing discharge and nearing the weekend. SW to follow closely in the AM with MD to see if pt stable for discharge in order to determine if pt might appeal his discharge or agree to d/c home as his preference. GILDA Gutierrez
[2024-12-15] MEDS: HYDROCODONE/ACET 5/325 TABLET 1 TAB PO (13:29)
[2024-12-15] MEDS: ONDANSETRON 4 MG/2 ML INJ IV ×2 (13:33→23:20)
[2024-12-15] MEDS: MORPHINE 4 MG/ML INJ IV ×3 (15:17→20:43)
[2024-12-15] MEDS: SIMETHICONE 80 MG TABLET PO ×2 (15:17→21:45)
--- NOTE | 2024-12-15 15:41 | PC.NURSE ---
Patient upset that he got vicodin earlier, he did not complain of pain for a couple of hours and his RN told him what he was given. Patient seeking something stronger and yelling out in pain. He was cursing profanities, this RN told him that this type of language will not be tolerated. He apologized and was thankful. IV morphine given to patient along with simethacone. He is resting comfortably now.
[2024-12-15] MEDS: SODIUM CHLORIDE 0.9% 1,000 ML 100 ML IV (16:27)
[2024-12-15] MEDS: ATORVASTATIN 20 MG TABLET 10 MG PO (20:43)
[2024-12-15] MEDS: LORATADINE 10 MG TABLET PO (20:43)
[2024-12-15] MEDS: ACETAMINOPHEN 325 MG TABLET 650 MG PO (20:54)
--- NOTE | 2024-12-15 20:54 | PC.NURSE ---
temperature 99.6, patient very anxious of temp, given tylenol. Refused ice to help reduce temp.
[2024-12-15] MEDS: OXYCODONE/ACETAMINOPHEN 5/325 TABLET 1 TAB PO (22:30)
[2024-12-16] VITALS (11 sets, daily range): BP systolic 136–162; BP diastolic 70–87; PULSE 70–119; RESP 19–22; TEMP 36.5–37.3; O2SAT 91–98
[2024-12-16] MEDS: PIPERACILLIN/TAZO 3.375 GM in SODIUM CHLORIDE 0.9% 100 ML IV ×3 (00:16→16:16)
[2024-12-16] MEDS: OXYCODONE/ACETAMINOPHEN 5/325 TABLET 1 TAB PO ×3 (03:55→16:08)
[2024-12-16] MEDS: SIMETHICONE 80 MG TABLET PO ×4 (03:56→21:23)
[2024-12-16] MEDS: methylPREDNISolone 125 MG/2 ML VIAL 80 MG IV ×3 (04:34→21:24)
--- NOTE | 2024-12-16 07:25 | PM.PN.1 ---
Subjective Subjective Interval history: Chief complaint: Fever cough right-sided pleuritic pain and right-sided abdominal pain setting diverticulitis and possible pneumonia History of present illness: The pt is a 64 yo who was in the hospital 6 weeks ago for Diverticulitis and pneumonia and has been home ever since but he started having fevers, chills, and abdominal pain bout 2-3 days ago. He states that he normally is very sedentary, uses a wheelchair for ambulation and needs assistance with any type of transfers for unknown reasons. He blames he disability on doctors not listening to me. The pt has never had a colonoscopy but he states it would kill me and anesthesiologist wont work with him because of his multiple allergies. Mak saw a optical effects line up person on 11/01 who reports that he has progressive COPD emphysema and his FEV1 was 26% and uses 2-3 lpm at home and continues to smoke despite these findings. His last BM was yesterday which he reports was normal. No melana, hematochezia, nausea, vomiting, he thinks he has difficulty swallowing. Patient admitted placed on IV Solu-Medrol Zosyn and ceftriaxone CTA of the chest abdomen and pelvis: 1. No signs of pulmonary emboli. 2. Severe COPD, with moderate improvement of previously seen right upper lobe pneumonia, new mild to moderate right lower lobe pneumonia versus aspiration and stable left lower lobe areas of consolidation. No significant pleural effusion. 3. Findings most suggestive of new mild colitis versus diverticulitis in the mid transverse colon, with persistent mild inflammatory changes in the descending and sigmoid colon. No signs of complications. Hospital course: 12/14: Pain with coughing sometimes movement the right mid axillary line lower costal margin and with palpation White count increased but patient clinically is not worsened likely due to Solu-Medrol 80 mg IV Q 8 started by clip wrapper We will discontinue ceftriaxone and continue Zosyn Might need to consider a modified barium swallow. 12/15: His breathing is feeling better. He was having a lot of abdomen distenion today. He had a bowel movement last night. He was belching a little bit. S: He is moaning today due to more severe pain. This is left upper quadrant. His abdomen is more distended and hypertympanic. His breathing is stable. Exam Vital Signs (past 8 hours): - 12/16/24 00:00 12/16/24 04:00 12/16/24 06:00 Pulse Rate 70 Respiratory Rate 19 Pulse Oximetry 98 96 98 Oxygen Delivery Method Room Air Room Air Oxygen Flow Rate 0 2 Fraction of Inspired Oxygen 28 SaO2/FiO2 Ratio 339 Oxygen Delivery Method Room Air Oxygen Flow Rate 2 Narrative Exam Narrative: NAD, alert and oriented. Fluent speech. Lungs are clear, normal rate and effort. Heart is regular, no murmur gallop or rub. Abdomen is tender, distended, and hypertympanic Extremities are free of edema. Objective Labs 12/14/24 05:08 12/14/24 05:08 COUNTS INCLUDE 234 BEDS AT THE [facility] Medical History Lung nodule seen on imaging study History of tobacco abuse Fatigue Ventricular tachycardia (paroxysmal) Anemia Palpitations GERD with stricture HTN (hypertension) Insomnia (~2015) Hyperlipidemia (~2015) Anxiety (~2015) COPD (chronic obstructive pulmonary disease) (~2013) Asthma (Unknown) TIA (transient ischemic attack) (05/2014) Hematuria (~2014) Surgical History No pertinent past surgical history Family History Mother Age: 86 Hypertension Sister Age: 69 Cancer Social History household members: none Smoking Status: Former smoker Tobacco: How many years used: 47 quit status: considering quitting second hand exposure: No alcohol intake: former substance use type: does not use Assessment & Plan Assessment & Plan narrative: 1. Recurrent pneumonia and question of aspiration COPD with acute exacerbation acute on chronic hypoxic and hypercarbic respiratory failure, improving. Continue Zosyn. Continue high-dose steroid. Modified barium swallow when able. Supplemental oxygen as needed.Recurrent colitis and diverticulitis Empiric Zosyn. Monitor clinical progress. Add Simethicone. 2. Possible colitis on CT. Active. PLAN: -increase IV pain meds for this morning. -KUB to re-evaluate abdomen -suppository -recheck CBC and BMP. DVT prophylaxis. Enoxaparin Time-Based Coding :: [TOTAL MINUTES] spent with patient and on the chart (including review of chart, obtaining history, exam, reviewing outside data, placing orders, documenting exam and treatment plan, and counseling patient) on [DATE]. Quality VTE Deep Vein Thrombosis/Pulmonary Embolism Present on Admission: No
[2024-12-16] MEDS: MORPHINE 4 MG/ML INJ IV ×5 (07:42→21:24)
[2024-12-16] MEDS: ALBUTEROL/IPRATROPIUM 3 ML AMPUL INH ×2 (07:44→20:22)
[2024-12-16] MEDS: ENOXAPARIN 40 MG/0.4 ML SYRINGE SUBCUT (08:20)
[2024-12-16] MEDS: polyethylene glycoL 3350 17 GM POWD.PACK PO ×2 (08:20→21:23)
[2024-12-16] MEDS: SENNOSIDES 8.6 MG TABLET 17.2 MG PO ×2 (08:20→21:22)
[2024-12-16] MEDS: clonazePAM 0.5 MG TABLET PO ×3 (08:20→21:23)
--- NOTE | 2024-12-16 10:34 | CM.DPNOTE ---
DCP Continued: Reviewed EMR and team rounds for pt?s medical status. Per hospitalist, pt will require more days of medical observation due to new colitis and pneumonia. CM team connected with [facility] ([facility]), they are following patient for post-discharge. Will need new orders sent upon discharge. Plan: Anticipating discharge home in the next few days when medically cleared, possibly 12/18 or 12/19. CM Team will continue to follow for coordination of discharge plans. LEON BirdSW
--- NOTE | 2024-12-16 10:40 | DI.RAD.S_ITS ---
PROCEDURE: XR KUB INDICATIONS: Pain TECHNIQUE: One view of the abdomen acquired. COMPARISON: [facility], CR, XR KUB, 08/21/2024, 12:24. FINDINGS: Surgical changes and devices: None. Bowel: Bowel gas pattern is nonobstructive. Moderate fecal stasis in the colon is seen. No gross free air. Soft tissues: No suspicious abdominal calcifications. Visualized solid organ contours appear normal in size. Bones: No suspicious bony lesions. IMPRESSION: Moderate constipation. No gross free air. No abnormal calcifications. Dictated by: Giuseppe Fonseca M.D. on 12/16/2024 at 11:32 Approved by: Giuseppe Fonseca M.D. on 12/16/2024 at 11:33
[2024-12-16] MEDS: BISACODYL 10 MG SUPP PR (10:48)
[2024-12-16 10:51] LABS: Add Manual Diff / Slide Review NO; Basophils Absolute Auto 0 /uL (0-100); Basophils Percent Auto 0.1 % (0-2); Eosinophils Absolute Auto 0 /uL (0-450); Hematocrit 32.7 % (41-53); Lymphocytes Absolute Auto 300 /uL (1100-4500); Lymphocytes Percent Auto 1.8 % (25-40); Mean Corpuscular HGB Conc 30.6 % (30-36); Mean Corpuscular Hemoglobin 26.6 PG (26-34); Monocytes Absolute Auto 800 /uL (0-900); Monocytes Percent Auto 4.6 % (3-14); Neutrophils Absolute Auto 16500 /uL (1500-7000); Neutrophils Percent Auto 93.5 % (50-75); Platelet Count 201 X10^3/uL (150-400); Red Blood Cell Count 3.75 X10^6/uL (4.5-5.9); Red Cell Distribution Width 15.8 % (11.6-14.8); White Blood Cell Count 17.6 X10^3/uL (4.5-11.0)
[2024-12-16 11:02] LABS: Alanine Aminotransferase 22 IU/L (<50); Albumin 3.4 g/dL (3.5-5.0); Albumin Globulin Ratio 1.1 (1.0-2.8); Alkaline Phosphatase 56 U/L (38-126); Aspartate Aminotransferase 27 IU/L (17-59); BUN Creatinine Ratio 27.1 (6-22); Bilirubin Total 0.3 mg/dL (0.2-1.3); Blood Urea Nitrogen 26 mg/dL (9-20); Calcium 8.8 mg/dL (8.4-10.2); Carbon Dioxide 30 mmol/L (22-32); Chloride 102 mmol/L (98-107); Estimated Glomerular Filt Rate > 60 mL/min (>60); Globulin 3.1 g/dL (1.7-4.1); Glucose 157 mg/dL (70-99); HEMOLYSIS < 15 (0-50); Potassium 5.1 mmol/L (3.4-5.1); Sodium 140 mmol/L (137-145); Total Protein 6.5 g/dL (6.3-8.2)
--- NOTE | 2024-12-16 13:45 | OT.IPNOTE ---
Pt is too much pain and refusing OT treatment, nursing aware of pt's pain.
--- NOTE | 2024-12-16 15:05 | PC.NURSE ---
Day shift: Pt refused a shower today. He has also been refusing to use SCD's. Explained there use and Pt has no questions about the SCD's.
[2024-12-16] MEDS: FLEETS ENEMA 1 EACH PR (16:22)
[2024-12-16] MEDS: ATORVASTATIN 20 MG TABLET 10 MG PO (21:22)
[2024-12-16] MEDS: LORATADINE 10 MG TABLET PO (21:23)
[2024-12-17] VITALS (33 sets, daily range): BP systolic 89–138; BP diastolic 48–81; PULSE 78–121; RESP 18–22; TEMP 36.4–36.5; O2SAT 91–99
--- NOTE | 2024-12-17 | PATH_ITS ---
[facility] Accession Number: [id number] No. of containers..01 Tissue . 01 Material submitted: . colon - COLON, SIGMOID . 01 Diagnosis: SIGMOID COLON, SEGMENTAL RESECTION: Consistent with perforated diverticulitis with marked serositis. Four benign pericolonic lymph nodes. Negative for dysplasia or malignancy. [facility] 12/21/2024 1421 Local . 01 Electronically signed: . Rajat Monahan MD, PhD, Pathologist NPI- [id number] . 01 Gross description: . Received in formalin with two identifiers and sigmoid colon, is an unoriented segment of colon (28.2 cm in length by 4.6 cm in average diameter) with minimal visible serosa as most of the external surface is surrounded by fat and adherent iniguez-green material consistent with exudate and fecal material. A full thickness defect is identified leaking fecal material measuring 0.6 cm in greatest dimension and is located 2.0 cm from the nearest staple line which is inked blue, the opposite staple line is inked black, and the area of defect is inked orange. . The lumen contains solid to semi-solid fecal material. The mucosa is vera and velvety with attenuated folds. . Sectioning reveals numerous diverticula, up to 1.6 cm deep. Three additional areas of presumed perforation are identified; however, the fecal material is contained to a space between the external wall of the colon and the adjacent adipose with the cavities ranging from 1.9 to 2.8 cm in greatest dimension. Palpation reveals eight vera lymph node candidates ranging from 0.3 to 0.8 cm in greatest dimension. . Vessel [place] sections are submitted as follows: . A1: Rep margins en face. A2-A3: Perforations. A4: Diverticula. A5: Full thickness unremarkable sections. A6: Four intact lymph node candidates. A7: Four intact lymph node candidates. ([id number]) /MRV 12/20/2024 1803 Local . 01 Pathologist provided ICD-10: K57.20, K65.8 . 01 CPT . 708654 Specimen Comment: A courtesy copy of this report has been sent to [facility] Performed at: [address] [address], [place], [place] [id number] MD Pernell Ortiz MD Phone: [phone]
--- NOTE | 2024-12-17 | DI.RAD.S_ITS ---
PROCEDURE: XR CHEST 1V INDICATIONS: Central line and ETT placement check TECHNIQUE: One view of the chest was acquired. COMPARISON: [facility], CR, XR CHEST 1V, 12/13/2024, 16:53. [facility], CR, XR CHEST 1V, 10/23/2024, 7:30. FINDINGS: Surgical changes and devices: None. Lungs and pleura: Lungs are clear. No pleural effusions or pneumothorax. Advanced COPD. Mediastinum: Mediastinal contours appear normal. Heart size is normal. Endotracheal tube with the tip at 6 cm above the vipul. Endo gastric suction tube extends in the stomach, the tip not seen. Right IJ line with the tip in the mid SVC. Bones and chest wall: No suspicious bony lesions. Overlying soft tissues appear unremarkable. IMPRESSION: 1. Line and tubes as above. 2. No signs of active lung disease. Dictated by: Jamal Funez M.D. on 12/17/2024 at 18:05 Approved by: Jamal Funez M.D. on 12/17/2024 at 18:07
[2024-12-17] MEDS: PIPERACILLIN/TAZO 3.375 GM in SODIUM CHLORIDE 0.9% 100 ML IV ×3 (00:12→16:30)
[2024-12-17] MEDS: SODIUM CHLORIDE 0.9% 1,000 ML 100 ML IV ×2 (00:19→11:16)
[2024-12-17] MEDS: MORPHINE 4 MG/ML INJ IV ×4 (00:19→12:29)
[2024-12-17] MEDS: methylPREDNISolone 125 MG/2 ML VIAL 80 MG IV ×2 (04:13→12:25)
[2024-12-17] MEDS: SIMETHICONE 80 MG TABLET PO (04:13)
--- NOTE | 2024-12-17 04:39 | PC.NURSE ---
Patient is alert and oriented but in severe abdominal pain rating 8-10 all through the night medicated with Morphine 4 mg IVP. Patient has brief periods of rest ( up to 2 to 3 hours at a time, but continues to moan and rub abdomen. I asked the patient if he had seen a specialist and he said yes but there is nothing they can do surgically to manage this. Iit was reported that patient had a bowel movement on day shift descbribd as ( 2 round golf ball size pellets of stool). Abdomen reamains distended and firm, with only relief after morphine. repositioned [id number]. able to drink while awake bu prefers oral swabs. IVF NS @100ml/hr with zosyn as scheduled
--- NOTE | 2024-12-17 07:36 | P.PN_ITS ---
Subjective Subjective Interval history: S: He was little more sedated today, less abdominal pain but he was still very distended and hypertympanic. Very small BM yesterday. His breathing is stable he denies cough or shortness a breath. Exam Vital Signs (past 8 hours): - 12/17/24 00:00 12/17/24 04:00 12/17/24 06:00 Temperature 97.7 F Pulse Rate 100 H Respiratory Rate 19 Blood Pressure 106/72 Pulse Oximetry 95 96 97 Oxygen Delivery Method Nasal Cannula Nasal Cannula Oxygen Flow Rate 3 3 2 Fraction of Inspired Oxygen 28 SaO2/FiO2 Ratio 339 Oxygen Delivery Method Nasal Cannula Oxygen Flow Rate 2 Narrative Exam Narrative: NAD, alert and oriented. Fluent speech. Frail and chronically ill in appearance Lungs are clear, normal rate and effort. Globally diminished breath sounds. Heart is regular, no murmur gallop or rub. Abdomen is very distended and hypertympanic and minimally tender. Extremities are globally with 1+ edema. Skin is notable for scattered ecchymoses. Objective Labs 12/17/24 09:55 12/17/24 09:55 Labs: Laboratory Results - last 24 hr 12/16/24 10:35 WBC 17.6 H RBC 3.75 L Hgb 10.0 L Hct 32.7 L MCV 87.0 MCH 26.6 MCHC 30.6 RDW 15.8 H Plt Count 201 Neut % (Auto) 93.5 H Lymph % (Auto) 1.8 L [place] % (Auto) 4.6 Eos % (Auto) 0.0 L Baso % (Auto) 0.1 Neut # (Auto) 48340 H Lymph # (Auto) 300 L [place] # (Auto) 800 Eos # (Auto) 0 Baso # (Auto) 0 Sodium 140 Potassium 5.1 Chloride 102 Carbon Dioxide 30 BUN 26 H Creatinine 0.96 Estimated GFR > 60 BUN/Creatinine Ratio 27.1 H Glucose 157 H Calcium 8.8 Total Bilirubin 0.3 AST 27 ALT 22 Alkaline Phosphatase 56 Total Protein 6.5 Albumin 3.4 L Globulin 3.1 Albumin/Globulin Ratio 1.1 [facility] Medical History Lung nodule seen on imaging study History of tobacco abuse Fatigue Ventricular tachycardia (paroxysmal) Anemia Palpitations GERD with stricture HTN (hypertension) Insomnia (~2015) Hyperlipidemia (~2015) Anxiety (~2016) COPD (chronic obstructive pulmonary disease) (~2013) Asthma (Unknown) TIA (transient ischemic attack) (05/2014) Hematuria (~2014) Surgical History No pertinent past surgical history Family History Mother Age: 86 Hypertension Sister Age: 69 Cancer Social History household members: none Smoking Status: Former smoker Tobacco: How many years used: 47 quit status: considering quitting second hand exposure: No alcohol intake: former substance use type: does not use Assessment & Plan Assessment & Plan narrative: 1. Recurrent pneumonia and question of aspiration COPD with acute exacerbation acute on chronic hypoxic and hypercarbic respiratory failure, improving. * Continue Zosyn. * Continue high-dose steroid. * Modified barium swallow when able. * Supplemental oxygen as needed.Recurrent colitis and diverticulitis * Empiric Zosyn. * Monitor clinical progress. * Add Simethicone. 2. Possible colitis on CT. Active. 3. Persistent leukocytosis and abdominal distention, new. PLAN: -continue IV antibiotics. -CT of the abdomen and pelvis given the clinical deterioration of his abdominal pain, distention, and increased WBC. -recheck CBC and BMP. -he may require an NG tube for decompression of the gas in his abdomen and a trickle bowel plan with GoLYTELY. He requires at least 1 more night of IV antibiotics and ongoing care. DVT prophylaxis. * Enoxaparin Time-Based Coding :: [TOTAL MINUTES] spent with patient and on the chart (including review of chart, obtaining history, exam, reviewing outside data, placing orders, documenting exam and treatment plan, and counseling patient) on [DATE]. Quality VTE Deep Vein Thrombosis/Pulmonary Embolism Present on Admission: No
[2024-12-17] MEDS: ALBUTEROL/IPRATROPIUM 3 ML AMPUL INH ×2 (07:48→12:43)
--- NOTE | 2024-12-17 07:54 | DI.CT.S_ITS ---
PROCEDURE: CT ABDOMEN PELVIS W CON INDICATIONS: Abdomen pain persistent and worsening. TECHNIQUE: After the administration of intravenous contrast, axial sections acquired from the lung bases to the pubic symphysis. Coronal and sagittal reformats were performed. For radiation dose reduction, the following was used: automated exposure control, adjustment of mA and/or kV according to patient size. COMPARISON: [facility], CT, CT ABDOMEN PELVIS W CON, 12/13/2024, 17:38. FINDINGS: Image quality: Diagnostic. Lower Chest: Bibasilar atelectasis. Pulmonary emphysema.. Gynecomastia ABDOMEN: Liver: No solid mass. Gallbladder: No radiopaque gallstones or wall thickening. Biliary ducts: No biliary dilation. Pancreas: No ductal dilation. Spleen: Size is within normal limits. Adrenal Glands: No adrenal nodules. Kidneys and Ureters: No hydronephrosis. No solid mass. No complex renal cystic lesion which requires follow up. Nonobstructing right renal calculus Stomach and Bowel: Persistent left-sided diverticulitis. No there is now a gross free air noted adjacent to the anterior abdominal wall as well as stippled throughout the mesentery. Perihepatic and pelvic free fluid present. No evidence of organized abscess. Peritoneum: As above Ventral Wall: Small paraumbilical hernia without bowel involvement Abdominal Nodes: No retroperitoneal or mesenteric adenopathy by size criteria. Vessels: Aortic atherosclerotic vascular calcification noted without evidence of aneurysm. PELVIS: Pelvic Organs: Unremarkable. Bladder: No bladder wall thickening, accounting for underdistention. Pelvic Nodes: No enlarged lymph nodes. Miscellaneous: No inguinal hernias are seen. Bones: No aggressive osseous abnormality. IMPRESSION: Perforated diverticulitis. Large left-sided colonic diverticulitis is now associated with gross free air and free fluid in the abdomen and pelvis without organized abscess Note: Critical results were discussed with the patient's nurse on the floor, [facility], at 11:03 AM [place] time on 12/17/24 Approved by: Jason Roberts M.D. on 12/17/2024 at 11:04
[2024-12-17] MEDS: clonazePAM 0.5 MG TABLET PO (09:08)
[2024-12-17] MEDS: SENNOSIDES 8.6 MG TABLET 17.2 MG PO (09:08)
[2024-12-17] MEDS: ENOXAPARIN 40 MG/0.4 ML SYRINGE SUBCUT (09:08)
[2024-12-17 10:27] LABS: Hematocrit 40.1 % (41-53); Hemoglobin 12.2 g/dL (13.5-17.5); Mean Corpuscular HGB Conc 30.5 % (30-36); Mean Corpuscular Hemoglobin 26.9 PG (26-34); Mean Corpuscular Volume 88.4 fL (80-100); Platelet Count 232 X10^3/uL (150-400); Red Blood Cell Count 4.54 X10^6/uL (4.5-5.9); Red Cell Distribution Width 16.5 % (11.6-14.8); White Blood Cell Count 21.4 X10^3/uL (4.5-11.0)
[2024-12-17 10:32] LABS: Alanine Aminotransferase 20 IU/L (<50); Albumin Globulin Ratio 0.9 (1.0-2.8); Alkaline Phosphatase 50 U/L (38-126); Aspartate Aminotransferase 29 IU/L (17-59); BUN Creatinine Ratio 19.6 (6-22); Bilirubin Total 0.3 mg/dL (0.2-1.3); Blood Urea Nitrogen 44 mg/dL (9-20); Calcium 8.5 mg/dL (8.4-10.2); Carbon Dioxide 29 mmol/L (22-32); Chloride 107 mmol/L (98-107); Estimated Glomerular Filt Rate 32 mL/min (>60); Globulin 3.2 g/dL (1.7-4.1); Glucose 136 mg/dL (70-99); HEMOLYSIS < 15 (0-50); Potassium 4.7 mmol/L (3.4-5.1); Sodium 143 mmol/L (137-145); Total Protein 6.2 g/dL (6.3-8.2)
--- NOTE | 2024-12-17 11:14 | PC.NURSE ---
Day shift: Off unit at approx [address]
--- NOTE | 2024-12-17 12:18 | PC.NURSE ---
Day shift: This racebook writer informed of CT results at approx 1205. Dr Hogan made aware at 1207. Pt with perf bowell and free air. GI MD here now and in room at approx 1220.
--- NOTE | 2024-12-17 12:28 | PM.EVENT ---
Event Note Date Patient Seen: 12/17/24 Time Patient Seen: 12:28 Event Note (Rapid Response, Code, or fall): CT AP: Pneumoperitoneum, findings all suggestive of sigmoid and descending colon diverticulitis. This is different from his CT scan on December 12. The patient has been on antibiotics. Surgery was notified and we will discuss the risks and benefits of laparotomy and probable colectomy. The patient was extremely high risk for intraoperative mortality with a severe lung disease and is also at risk for being very difficult to get off the ventilator in the postoperative phase. Options were discussed with the patient was family including comfort care versus moving ahead. The issue of how long to be on a ventilator if he was failing to move towards extubation was also discussed with a number of 5 being suggested. A: Colonic perforation. P: -surgical consult for laparotomy, washout, and colectomy. Javad Hogan
--- NOTE | 2024-12-17 12:30 | PM.CN.IH.1 ---
History of Present Illness Consult details Date Patient Seen: 12/17/24 Time Patient Seen: 12:30 Chief complaint: Fever, cough for x1 day Narrative: 64-year-old male with severe COPD and an FEV1 of 26% who was admitted 6 weeks ago for diverticulitis. He generated abdominal pain again a few days ago and was readmitted with CT findings consistent with colitis. White count climbed over the last 36 hours to 21 and a CTA abdomen pelvis today demonstrates probable perforated sigmoid colon with free air. I am consulted to render a surgical opinion regarding appropriate management. Meds Home Medications and Allergies Home Medications ?Medication ?Instructions ?Recorded ?Confirmed ?Type ascorbate calcium (vitamin C) 500 500 mg PO DAILY 08/06/23 12/13/24 History mg tablet ferrous gluconate 324 mg (38 mg 324 mg PO DAILY #90 tabs 03/28/24 12/13/24 Rx iron) tablet aluminum-mag hydroxide-simethicone 20 ml PO BID 05/14/24 12/13/24 History 400 mg-400 mg-40 mg/5 mL oral susp multivitamin with minerals-folic 1 tab PO DAILY 05/14/24 12/13/24 History acid 0.4 mg tablet nystatin 100,000 unit/mL oral 5 ml PO QID PRN thrush 05/14/24 12/13/24 History suspension Disabled Parking Permint #1 ea 07/01/24 12/13/24 Rx mometasone-formoterol HFA 200 2 puff PO BID #13 grams 07/22/24 12/13/24 Rx mcg-5 mcg/actuation aerosol inhaler (Dulera) cetirizine 10 mg tablet 10 mg PO BEDTIME allergy/asthma 08/25/24 12/13/24 History clonazepam 0.5 mg tablet 0.5 mg PO TID #90 tabs 08/25/24 12/13/24 Rx guaifenesin 100 mg/5 mL oral liquid 200 mg PO Q4H PRN cough 08/25/24 12/13/24 History mecobalamin (vitamin B12) 1,000 1,000 mcg PO DAILY 08/25/24 12/13/24 History mcg chewable tablet nitroglycerin 0.3 mg sublingual 0.3 mg sublingual Q5-15M PRN chest 08/25/24 12/13/24 Rx tablet pain #20 tabs simvastatin 20 mg tablet 20 mg PO QPM #90 tabs 08/25/24 12/13/24 Rx albuterol sulfate 2.5 mg/3 mL 2.5 mg (3 mL) inhalation QID PRN 09/09/24 12/13/24 Rx (0.083 %) solution for nebulization shortness of breath or wheezing #180 mL albuterol sulfate 90 mcg/actuation 1 - 2 puff PO Q4H PRN for wheezing 09/09/24 12/13/24 Rx aerosol inhaler (Ventolin HFA) #54 grams ipratropium bromide 0.02 % 2.5 ml inhalation QID PRN 09/09/24 12/13/24 Rx solution for inhalation shortness of breath or wheezing #150 mL montelukast 10 mg tablet 10 mg PO BEDTIME #90 tabs 10/11/24 12/13/24 Rx hydrocodone 5 mg-acetaminophen 325 2 tab PO Q4H PRN Pain, Severe 10/28/24 12/13/24 Rx mg tablet (7-10) #20 tabs ondansetron 4 mg disintegrating 4 mg PO Q8H PRN nausea and 10/28/24 12/13/24 Rx tablet vomiting #14 tabs acetaminophen 500 mg tablet 500 mg PO Q6H PRN Pain (Scale 10/31/24 12/13/24 History Score 1-3) polyethylene glycol 3350 17 17 g PO DAILY PRN constipation 10/31/24 12/13/24 History gram/dose oral powder benzonatate 100 mg capsule 100 mg PO BID-TID PRN Cough #270 11/01/24 12/13/24 Rx caps prednisone 10 mg tablet See Rx Instructions PO .COMPLEX 11/01/24 12/13/24 Rx #76 tabs Allergies Allergy/AdvReac Type Severity Reaction Status Date / Time cinnamon (CINNAMON) Allergy Severe RESP Verified 12/13/24 16:37 PROBLEMS AND SWELLING Sulfa (Sulfonamide Allergy Severe anaphylacti Verified 12/13/24 16:37 Antibiotics) (SULFA c (SULFONAMIDE ANTIBIOTICS)) fluticasone (FLUTICASONE) Allergy Intermediate FEELS Verified 12/13/24 16:37 LIKE FIRE IN THE LUNGS trimethoprim (TRIMETHOPRIM) Allergy Unknown Patient Verified 12/13/24 16:37 can't remember dextromethorphan AdvReac Severe Difficulty Verified 12/13/24 16:37 Breathing fentanyl AdvReac Severe Difficulty Verified 12/13/24 16:37 Breathing codeine (CODEINE) AdvReac Intermediate violent Verified 12/13/24 16:37 doxycycline (DOXYCYCLINE) AdvReac Mild N/V Verified 12/13/24 16:37 Review of Systems Review of Systems Narrative: Comprehensive review of systems negative to direct questioning with the exception of the previously mentioned chronic conditions Exam Vital Signs (past 8 hours): - 12/17/24 06:00 12/17/24 07:48 12/17/24 08:00 Temperature 97.7 F Pulse Rate 100 H 117 H Respiratory Rate 19 20 Blood Pressure 106/72 Pulse Oximetry 97 95 Oxygen Delivery Method Nasal Cannula Nasal Cannula Oxygen Flow Rate 2 3 12/17/24 08:00 12/17/24 08:42 Temperature 97.5 F L Pulse Rate 120 H Respiratory Rate 18 Blood Pressure 108/75 Pulse Oximetry 93 96 Oxygen Delivery Method Nasal Cannula Oxygen Flow Rate 3 3 Fraction of Inspired Oxygen 28 SaO2/FiO2 Ratio 339 Oxygen Delivery Method Nasal Cannula Oxygen Flow Rate 3 Narrative Exam Narrative: Head is normocephalic and atraumatic. Neck is supple. Back is without CVA or spinous process tenderness. Lungs are clear with extremely poor inspiratory effort. Chest is symmetric nontender with normal inspiratory and expiratory excursion. Heart has a regular rate and rhythm with no murmur or gallop. Abdomen is distended quiet and diffusely tender. Neurological exam is grossly nonfocal. Objective Labs 12/17/24 09:55 12/17/24 09:55 Labs: Laboratory Results - last 24 hr 12/17/24 09:55 WBC 21.4 H RBC 4.54 Hgb 12.2 L Hct 40.1 L MCV 88.4 MCH 26.9 MCHC 30.5 RDW 16.5 H Plt Count 232 Sodium 143 Potassium 4.7 Chloride 107 Carbon Dioxide 29 BUN 44 H Creatinine 2.24 H Estimated GFR 32 L BUN/Creatinine Ratio 19.6 Glucose 136 H Calcium 8.5 Total Bilirubin 0.3 AST 29 ALT 20 Alkaline Phosphatase 50 Total Protein 6.2 L Albumin 3.0 L Globulin 3.2 Albumin/Globulin Ratio 0.9 L [facility] Medical History Lung nodule seen on imaging study History of tobacco abuse Fatigue Ventricular tachycardia (paroxysmal) Anemia Palpitations GERD with stricture HTN (hypertension) Insomnia (~2015) Hyperlipidemia (~2015) Anxiety (~2015) COPD (chronic obstructive pulmonary disease) (~2013) Asthma (Unknown) TIA (transient ischemic attack) (05/2014) Hematuria (~2014) Surgical History No pertinent past surgical history Family History Mother Age: 86 Hypertension Sister Age: 69 Cancer Social History household members: none Tobacco & Substance Use Smoking Status: Former smoker Tobacco: How many years used: 47 quit status: considering quitting second hand exposure: No alcohol intake: former substance use type: does not use Assessment & Plan Assessment and plan (1) Diverticulitis of colon with perforation: Status: Acute Plan Urgent intervention involving probable sigmoid colectomy with end descending colostomy is indicated. Survival seems unlikely given the patient's pulmonary condition and general debility. Alternatives, risks and benefits were discussed in detail. Patient and his family desired to proceed as I have outlined. Time-Based Coding :: [TOTAL MINUTES] spent with patient and on the chart (including review of chart, obtaining history, exam, reviewing outside data, placing orders, documenting exam and treatment plan, and counseling patient) on [DATE]. PROFEE Charge Codes Inpatient or Observation consultation: [id number]
--- NOTE | 2024-12-17 14:03 | PC.NURSE ---
Day shift: Pt off unit for surgery at approx 1400. Family in room and they are aware. THe plan for after surgery is Pt is going to the ICU.
[2024-12-17] MEDS: LACTATED RINGERS 1,000 ML 42 ML IV ×3 (14:21→17:40)
--- NOTE | 2024-12-17 14:50 | SUR.OPER ---
Supine on padded OR bed, head on pillow, arms secured on padded arm boards at <90 degrees abduction, legs uncrossed, safety belt at thigh, tape over blanket over lower legs.
[2024-12-17] MEDS: CEFAZOLIN 2 GM/100 ML PREMIX 100 ML IV (15:15)
[2024-12-17] MEDS: BUPIVACAINE 0.25% (PF) VIAL 30 ML INJ (15:22)
[2024-12-17] MEDS: BUPIVACAINE LIPOSOME 266 MG/20 ML VIAL INJ (15:23)
--- NOTE | 2024-12-17 16:01 | PC.NURSE ---
Day shift: Pt remains of ACU at this time (1600).
--- NOTE | 2024-12-17 16:20 | PM.PROC.1 ---
Procedures Date/Time Date of procedure: 12/17/24 Time of procedure: 13:35 Central Line Placement Time out performed: Yes Patient placed on monitor/pulse ox: Yes MD prep: mask, gown and gloves Central line prep: Chlorhexidine scrub Local anesthesia used: other anesthetic Amount of anesthesia used (ml): 0 Ultrasound used for placement: Yes Central line lumen inserted: triple Post procedure: sutured in place, good blood return, all ports aspirated, flushed, capped and sterile dressing applied Patient tolerated procedure: no complications Complications: none Additional comments: Placement will be checked in ICU post-op
--- NOTE | 2024-12-17 16:50 | PM.OP.1 ---
Operative Date/Time/Diagnoses Date of procedure: 12/17/24 Time of procedure: 13:00 Pre-op diagnosis: Perforated viscus Post-op diagnosis: same Procedure & Clinicians Procedure: Sigmoid colectomy with end descending colostomy Same procedure as scheduled: Yes Indications: Perforated sigmoid colon Surgeon: Samuel Diop Yes if Unassisted: Yes Anesthesia Type: General Operative Notes Findings: Perforated sigmoid colon Closure Type: non-primary (Skin and subcutaneous adipose left open. Fascia closed primarily) Specimen(s): other Prosthetic devices, grafts, tissues, transplants, or devices: Sigmoid colon Estimated Blood Loss (mL): 400 Blood products transfused: none Procedure in detail: After after properly identifying the patient obtaining informed consent the patient was transported to the operating room and was placed on table in supine position. General endotracheal anesthesia was induced. Vaughn catheter was sterilely inserted by the vascular surgery physician and a right IJ central line was sterilely inserted by anesthesia. The abdomen was prepped and draped in the usual sterile manner. A vertical midline incision was made with a 10 blade from a 0.1 handsbreadth below the xiphoid to the symphysis pubis. This was carried down to the abdominal wall fascia with the electrocautery. Fashion peritoneum were incised in the midline with the electrocautery from 1 end of the wound to the other. There was noted immediately upon peritoneal entry large amount of fecal contents. This was aspirated and peritoneal cavity was explored. The sigmoid colonic perforation was in evidence. This was controlled with packs. The sigmoid and descending colon were mobilized medially by incising laterally along the white line of Toldt with Metzenbaum scissors. The avascular plane between the retroperitoneum and descending and sigmoid mesocolon was entered and bluntly dissected. Normal rectosigmoid distal to the diseased portion of sigmoid was identified in the mesenteric surface was sharply dissected. A DAVID 55 stapler was fired across the rectosigmoid at this point. A LigaSure device was used to take the mesentery subtending the diseased portion of colon. Normal descending colon proximal to the disease segment was identified and was transected with a DAVID stapler in a manner identical to the rectosigmoid. The specimen was passed from the field. Perfect hemostasis was obtained. The peritoneal cavity was copiously irrigated and all irrigant was evacuated. Additional mesenteric dissection was required to gain adequate length on the descending colon for creation of a colostomy. A colostomy defect was created left of midline at a convenient point along the abdominal wall. Skin and subcutaneous adipose at this site was excised with the electrocautery and the anterior rectus sheath was incised and a cruciform fashion. Muscle-splitting technique was used to carry this down to the posterior rectus sheath which was incised similarly. The descending colon was delivered up onto the abdominal wall through the defect. Attention was directed to the midline fascia which was then closed with a running 1. Looped PDS stitch. The skin and subcutaneous adipose were packed open with saline dampened Kerlix gauze. A dressing was applied. Attention was directed to maturing the colostomy. The staple line was trimmed away and a series of simple interrupted 3-0 Vicryl sutures were used to mature the colostomy after the fashion of Faina. An ostomy base plate was applied. The patient was transported to the intensive care unit intubated as planned. Complications: none Post-operative Condition: stable Disposition: ICU Plan for aftercare: To ICU for monitoring and ventilator support
[2024-12-17] MEDS: PHENYLEPHRINE 20,000 MCG in DEXTROSE 5% IN WATER 250 ML 27.726 MCG IV ×2 (17:38→19:30)
[2024-12-17] MEDS: propofoL 1,000 MG/100 ML VIAL 13.308 MG IV ×2 (17:39→19:30)
[2024-12-17] MEDS: fentaNYL 1,000 MCG in DEXTROSE 5% IN WATER 230 ML 12.939 MCG IV ×2 (17:39→19:30)
[2024-12-17 17:42] LABS: Hematocrit 30.5 % (41-53); Hemoglobin 9.5 g/dL (13.5-17.5); Mean Corpuscular Hemoglobin 27.3 PG (26-34); Mean Corpuscular Volume 88.1 fL (80-100); Platelet Count 232 X10^3/uL (150-400); Red Blood Cell Count 3.46 X10^6/uL (4.5-5.9); Red Cell Distribution Width 16.6 % (11.6-14.8); White Blood Cell Count 20.5 X10^3/uL (4.5-11.0)
[2024-12-17 17:50] LABS: Add Manual Diff / Slide Review YES; Alanine Aminotransferase 17 IU/L (<50); Albumin 2.2 g/dL (3.5-5.0); Albumin Globulin Ratio 0.8 (1.0-2.8); Alkaline Phosphatase 42 U/L (38-126); Aspartate Aminotransferase 32 IU/L (17-59); BUN Creatinine Ratio 21.2 (6-22); Bilirubin Total 0.4 mg/dL (0.2-1.3); Blood Urea Nitrogen 47 mg/dL (9-20); Calcium 7.6 mg/dL (8.4-10.2); Carbon Dioxide 22 mmol/L (22-32); Chloride 107 mmol/L (98-107); Estimated Glomerular Filt Rate 32 mL/min (>60); Globulin 2.7 g/dL (1.7-4.1); Glucose 181 mg/dL (70-99); HEMOLYSIS < 15 (0-50); Potassium 4.6 mmol/L (3.4-5.1); Sodium 140 mmol/L (137-145); Total Protein 4.9 g/dL (6.3-8.2)
--- NOTE | 2024-12-17 18:01 | P.EN_ITS ---
Event Note Date Patient Seen: 12/17/24 Event Note (Rapid Response, Code, or fall): Patient was taken emergently to the operating room for perforated viscus. The pros and cons of surgery and the potential pitfalls of colostomy and post surgical ventilation were discussed in detail with the patient family. The pa damion did require pressors and fat a 500 EBL in the OR. The patient tolerated the intubation and ventilator without difficulty. He arrived on Simon-Synephrine. A chest x-ray is obtained upon arrival to the CCU and lines were organized and pressors were continued. An OG was placed. The patient will be sedated with fentanyl infusion continuously as well as propofol tonight. Pressors will be continued. It was being no plan to consider extubation for least 48-72 hours given his poor respiratory status. His abdomen is left open, his dressing is dry. He has an ostomy in place. Plan: -CCU level care, postoperatively. -ICU consult placed, and ultrasound coordinator was contacted. Javad Hogan
[2024-12-17 18:25] LABS: Neutrophils Absolute Manual 17220 /uL (3000-5900); Total Cells Counted 100
--- NOTE | 2024-12-17 18:25 | SUR.PHASEI ---
1720 Pt transferred directly from OR to ICU room 230 by anesthesia and 2 RN. Pt intubated with right wrist art line and right IJ TLC and rose cath. Midline incision clean, dry and intact with stoma SBAR report at bedside to Vandana NOE, RT and Dr Hogan by Flakita DAVID. Family updated. See ICU charting and VS for recovery.
[2024-12-17 18:26] LABS: Anisocytosis 1+
[2024-12-17 18:37] LABS: Lactate (Lactic Acid) 2.8 mmol/L (0.7-2.1)
[2024-12-17 18:54] LABS: Procalcitonin 44.2 ng/mL (<0.5)
[2024-12-17 19:29] LABS: Reflexed Lactate in 2 Hours Y
--- NOTE | 2024-12-17 19:30 | PC.NURSE ---
1700 Pt arrived via bed from OR to be recovered in the room, arrived being bagged by OR team with anesthesia, 2 RN. Connect to vent by RT settings FiO2 35% TV 500 18/5, vitals stable with pressers on board (see trends vitals and emar for rates) Propofol infusing as ordered, fentanyl ordered by Dr Hogan at bedside. New orders placed by Dr Hogan and carried out by this nurse, complete bedding change required as pt new ostomy bag was left unclamped, pt did not tolerate well, desating into the low 80's, FiO2 increased to 40% to compensate. Art line in place and accurate, Vaughn in place and patent with minimal urine output. RASS -1 (when being moved) to -3 when lying still. Pt is bridged with pillows, SCD's in place, heel protectors in place. Stage 2 coccyx ulcer noted with bed bath, wound photo's in wound note. Family updated on pt status. Bedside report given to HASMUKH Denney, no further patient contact at this time.
--- NOTE | 2024-12-17 19:49 | PC.WOUNDPHOT ---
taken after return from surgery by day shift RN
[2024-12-17] MEDS: SODIUM CHLORIDE 0.9% 1,000 ML 125 ML IV (20:15)
[2024-12-17 20:38] LABS: Lactate 2HR (Lactic Acid Rflx) 1.2 mmol/L (0.7-2.1)
--- NOTE | 2024-12-17 21:15 | DI.RAD.S_ITS ---
PROCEDURE: XR CHEST 1V INDICATIONS: recheck endotracheal tube position TECHNIQUE: One view of the chest was acquired. COMPARISON: [facility], JOSE, XR CHEST 1V, 12/17/2024, 16:33. [facility], CR, XR CHEST 1V, 12/13/2024, 16:53. IMPRESSION: 1. Endotracheal tube with the tip at 7.5 cm above the vipul. Stable position of the right IJ line. 2. The endo gastric suction tube be appears to have the tip just above the GE junction. 3. COPD, no signs of active lung disease. Dictated by: Jamal Funez M.D. on 12/17/2024 at 21:37 Approved by: Jamal Funez M.D. on 12/17/2024 at 21:39
--- NOTE | 2024-12-17 21:16 | P.TELICUCN_ITS ---
History of Present Illness Consult details IF CAMERA ACTIVATED, patient seen via real-time interactive audiovisual communication: Camera activated Chief complaint: Fever, cough for x1 day Consent obtained for tele-entertainment centre manager care: Yes Patient Location: ICU Provider location (State): [place] Other participants/roles: RN Narrative: 64 yo M who is POD 0 from sigmoid colectomy/ end colostomy due to perforated viscus; fascia has been closed; SUBQ and skin were left open. Pt is on Zosyn, vasopressors and invasive mechanical ventilation. Dr. Hogan asked me to consult. [facility] Medical History Lung nodule seen on imaging study History of tobacco abuse Fatigue Ventricular tachycardia (paroxysmal) Anemia Palpitations GERD with stricture HTN (hypertension) Insomnia (~2015) Hyperlipidemia (~2015) Anxiety (~2015) COPD (chronic obstructive pulmonary disease) (~2013) Asthma (Unknown) TIA (transient ischemic attack) (05/2014) Hematuria (~2014) Surgical History No pertinent past surgical history Family History Mother Age: 86 Hypertension Sister Age: 69 Cancer Social History household members: none Smoking Status: Former smoker Tobacco: How many years used: 47 quit status: considering quitting second hand exposure: No alcohol intake: former substance use type: does not use Current Medications Current Medications Medications: Home Medications ascorbate calcium (vitamin C) 500 mg tablet 500 mg PO DAILY 08/06/23 [History Confirmed 12/13/24] ferrous gluconate 324 mg (38 mg iron) tablet 324 mg PO DAILY #90 tabs 03/28/24 [Rx Confirmed 12/13/24] aluminum-mag hydroxide-simethicone 400 mg-400 mg-40 mg/5 mL oral susp 20 ml PO BID 05/14/24 [History Confirmed 12/13/24] multivitamin with minerals-folic acid 0.4 mg tablet 1 tab PO DAILY 05/14/24 [History Confirmed 12/13/24] nystatin 100,000 unit/mL oral suspension 5 ml PO QID PRN thrush 05/14/24 [History Confirmed 12/13/24] Disabled Parking Permint #1 ea 07/01/24 [Rx Confirmed 12/13/24] mometasone-formoterol HFA 200 mcg-5 mcg/actuation aerosol inhaler (Dulera) 2 puff PO BID #13 grams 07/22/24 [Rx Confirmed 12/13/24] cetirizine 10 mg tablet 10 mg PO BEDTIME allergy/asthma 08/25/24 [History Confirmed 12/13/24] clonazepam 0.5 mg tablet 0.5 mg PO TID #90 tabs 08/25/24 [Rx Confirmed 12/13/24] guaifenesin 100 mg/5 mL oral liquid 200 mg PO Q4H PRN cough 08/25/24 [History Confirmed 12/13/24] mecobalamin (vitamin B12) 1,000 mcg chewable tablet 1,000 mcg PO DAILY 08/25/24 [History Confirmed 12/13/24] nitroglycerin 0.3 mg sublingual tablet 0.3 mg sublingual Q5-15M PRN chest pain #20 tabs 08/25/24 [Rx Confirmed 12/13/24] simvastatin 20 mg tablet 20 mg PO QPM #90 tabs 08/25/24 [Rx Confirmed 12/13/24] albuterol sulfate 2.5 mg/3 mL (0.083 %) solution for nebulization 2.5 mg (3 mL) inhalation QID PRN shortness of breath or wheezing #180 mL 09/09/24 [Rx Confirmed 12/13/24] albuterol sulfate 90 mcg/actuation aerosol inhaler (Ventolin HFA) 1 - 2 puff PO Q4H PRN for wheezing #54 grams 09/09/24 [Rx Confirmed 12/13/24] ipratropium bromide 0.02 % solution for inhalation 2.5 ml inhalation QID PRN shortness of breath or wheezing #150 mL 09/09/24 [Rx Confirmed 12/13/24] montelukast 10 mg tablet 10 mg PO BEDTIME #90 tabs 10/11/24 [Rx Confirmed 12/13/24] hydrocodone 5 mg-acetaminophen 325 mg tablet 2 tab PO Q4H PRN Pain, Severe (7- 10) #20 tabs 10/28/24 [Rx Confirmed 12/13/24] ondansetron 4 mg disintegrating tablet 4 mg PO Q8H PRN nausea and vomiting #14 tabs 10/28/24 [Rx Confirmed 12/13/24] acetaminophen 500 mg tablet 500 mg PO Q6H PRN Pain (Scale Score 1-3) 10/31/24 [History Confirmed 12/13/24] polyethylene glycol 3350 17 gram/dose oral powder 17 g PO DAILY PRN constipation 10/31/24 [History Confirmed 12/13/24] benzonatate 100 mg capsule 100 mg PO BID-TID PRN Cough #270 caps 11/01/24 [Rx Confirmed 12/13/24] prednisone 10 mg tablet See Rx Instructions PO .COMPLEX #76 tabs 11/01/24 [Rx Confirmed 12/13/24] Visit Medications (administered) Generic Name Dose Route Start Last Admin Trade Name Freq PRN Reason Stop Dose Admin Chlorhexidine Gluconate 15 ml 12/17/24 18:00 12/17/24 20:01 Chlorhexidine Gluconate 15 Ml Cup PO Not Given Q6HR ROBERT Sodium Chloride 1,000 mls @ 125 mls/hr 12/17/24 18:00 12/17/24 20:15 Normal Saline 0.9% IV 125 mls/hr CONT ROBERT Administration Propofol 1,000 mg in 100 mls @ 2.218 mls/hr 12/17/24 18:00 12/17/24 20:50 Diprivan IV 35 mcg/kg/min TITRATE ROBERT 15.527 mls/hr Protocol Titration 5 MCG/KG/MIN Fentanyl 1,000 mcg/ Dextrose 250 mls @ 12.939 mls/hr 12/17/24 18:00 12/17/24 20:49 IV 0.8 mcg/kg/hr TITRATE ROBERT 14.787 mls/hr Protocol Titration 0.7 MCG/KG/HR Phenylephrine HCl 20,000 mcg/ 250 mls @ 27.726 mls/hr 12/17/24 18:15 12/17/24 19:30 Dextrose IV 0.5 mcg/kg/min TITRATE ROBERT 27.726 mls/hr Protocol Administration 0.5 MCG/KG/MIN Exam Vital Signs (past 8 hours): - 12/17/24 17:00 12/17/24 17:56 12/17/24 19:00 Pulse Rate 88 Respiratory Rate 18 Blood Pressure 102/59 L 99/52 L Pulse Oximetry 97 97 Oxygen Delivery Method Mechanical Ventilation Oxygen Flow Rate 45 Fraction of Inspired Oxygen 35 12/17/24 19:15 12/17/24 19:30 12/17/24 19:45 Pulse Rate Respiratory Rate Blood Pressure 104/52 L 107/52 L 103/51 L Pulse Oximetry Oxygen Delivery Method Oxygen Flow Rate Fraction of Inspired Oxygen Fraction of Inspired Oxygen 35 SaO2/FiO2 Ratio 339 Oxygen Delivery Method Mechanical Ventilation Oxygen Flow Rate 45 Const General: other (intubated, sedated) Resp Other: RR 18 TV 500 mL PEEP 5 cm H2O Cardio Other: Phenylephrine 0.1 mcg/kg/min Neuro Other: Fentanyl 0.8 mcg/kg/min; propofol 35 mcg/kg/min Objective Labs 12/17/24 17:30 12/17/24 17:30 Labs: Laboratory Results - last 24 hr 12/17/24 12/17/24 12/17/24 09:55 15:15 17:30 WBC 21.4 H 20.5 H RBC 4.54 3.46 L Hgb 12.2 L 9.5 L Hct 40.1 L 30.5 L MCV 88.4 88.1 MCH 26.9 27.3 MCHC 30.5 31.0 RDW 16.5 H 16.6 H Plt Count 232 232 Neut % (Auto) Not Reportable Lymph % (Auto) Not Reportable [place] % (Auto) Not Reportable Eos % (Auto) Not Reportable Baso % (Auto) Not Reportable Lymph # (Auto) Not Reportable [place] # (Auto) Not Reportable Baso # (Auto) Not Reportable Total Counted 100 Seg Neutrophils % 72.0 H Band Neutrophils % 12.0 H Lymphocytes % (Manual) 4.0 L Monocytes % (Manual) 12.0 H Neutrophils # (Manual) 00943 H RBC Morphology See below Anisocytosis 1+ H Sodium 143 140 Potassium 4.7 4.6 Chloride 107 107 Carbon Dioxide 29 22 BUN 44 H 47 H Creatinine 2.24 H 2.22 H Estimated GFR 32 L 32 L BUN/Creatinine Ratio 19.6 21.2 Glucose 136 H 181 H Lactate 2.8 H Calcium 8.5 7.6 L Total Bilirubin 0.3 0.4 AST 29 32 ALT 20 17 Alkaline Phosphatase 50 42 Total Protein 6.2 L 4.9 L Albumin 3.0 L 2.2 L Globulin 3.2 2.7 Albumin/Globulin Ratio 0.9 L 0.8 L Procalcitonin 44.2 H Blood Type B Positive Antibody Screen Negative Crossmatch See Detail 12/17/24 20:20 WBC RBC Hgb Hct MCV MCH MCHC RDW Plt Count Neut % (Auto) Lymph % (Auto) [place] % (Auto) Eos % (Auto) Baso % (Auto) Lymph # (Auto) [place] # (Auto) Baso # (Auto) Total Counted Seg Neutrophils % Band Neutrophils % Lymphocytes % (Manual) Monocytes % (Manual) Neutrophils # (Manual) RBC Morphology Anisocytosis Sodium Potassium Chloride Carbon Dioxide BUN Creatinine Estimated GFR BUN/Creatinine Ratio Glucose Lactate 1.2 Calcium Total Bilirubin AST ALT Alkaline Phosphatase Total Protein Albumin Globulin Albumin/Globulin Ratio Procalcitonin Blood Type Antibody Screen Crossmatch Assessment & Plan Assessment and plan (1) Diverticulitis of colon with perforation: Status: Acute Plan: -Continue Zosyn -Diet advancement/wound care as per general surgery (2) COPD (chronic obstructive pulmonary disease): Problem details: on O2 Qualifiers: COPD type: emphysema Emphysema type: centrilobular Qualified Code(s): J43.2 - Centrilobular emphysema Status: Acute Plan: -PRN bronchodilators (3) Acute and chronic respiratory failure with hypoxia: Status: Acute Plan: -Vent bundle -Fentanyl/propofol analgosedation -SAT/SBT as feasible -Recheck ABG/pCXR (4) CLAY (acute kidney injury): Status: Acute Plan: -Continue NS Assessment & Plan narrative: VTE prophylaxis: increased heparin SUBQ to q8H Stress ulcer prophylaxis: pantoprazole Time-Based Coding :: 35 minutes of aggregate critical care time spent with patient and on the chart (including review of chart, obtaining history, exam, reviewing outside data, placing orders, documenting exam and treatment plan, and counseling patient) on ; this time excludes all procedural time.
[2024-12-17] MEDS: PIPERACILLIN/TAZO 4.5 GM in SODIUM CHLORIDE 0.9% 100 ML IV (21:29)
[2024-12-17] MEDS: PHENYLEPHRINE 20,000 MCG in DEXTROSE 5% IN WATER 250 ML 55.452 MCG IV (22:38)
[2024-12-17] MEDS: HEPARIN 5,000 UNIT/ML VIAL 5000 UNIT SUBCUT (22:38)
[2024-12-17 22:42] LABS: Base Excess ABG 0.2 mmol/L (-2-3); Blood Gas Collection Site Arterial Line; HCO3 ABG 25 mmol/L (23-27); Oxygen Saturation ABG 99 % (95-100); PCO2 ABG 37.9 mmHg (35-45); PO2 ABG 112 mmHg (80-100); TCO2 ABG 23 mmol/L (23-27); pH ABG 7.42 (7.35-7.45)
[2024-12-18] VITALS (103 sets, daily range): BP systolic 65–164; BP diastolic 38–70; PULSE 68–118; RESP 0–31; TEMP 36.6–37.7; O2SAT 92–98
[2024-12-18] MEDS: CHLORHEXIDINE GLUCONATE 15 ML CUP PO ×5 (00:28→23:46)
[2024-12-18] MEDS: propofoL 1,000 MG/100 ML VIAL 13.308 MG IV (00:29)
[2024-12-18] MEDS: PHENYLEPHRINE 20,000 MCG in DEXTROSE 5% IN WATER 250 ML 110.904 MCG IV ×2 (01:38→04:19)
[2024-12-18] MEDS: SODIUM CHLORIDE 0.9% 1,000 ML 125 ML IV ×4 (03:04→22:21)
[2024-12-18] MEDS: LACTATED RINGERS 1,000 ML 1000 ML IV (04:31)
[2024-12-18] MEDS: NOREPINEPHRINE BITARTRATE/D5W 4 MG/250 ML PLAST..BAG 27.75 MG IV ×3 (04:42→22:20)
[2024-12-18] MEDS: VASOPRESSIN 40 UNIT in SODIUM CHLORIDE 0.9% 100 ML 4.5 UNIT IV (04:43)
[2024-12-18] MEDS: PIPERACILLIN/TAZO 4.5 GM in SODIUM CHLORIDE 0.9% 100 ML IV ×3 (05:35→20:51)
[2024-12-18] MEDS: HEPARIN 5,000 UNIT/ML VIAL 5000 UNIT SUBCUT ×3 (05:36→20:51)
[2024-12-18 05:39] LABS: Alanine Aminotransferase 21 IU/L (<50); Albumin 2.1 g/dL (3.5-5.0); Albumin Globulin Ratio 0.8 (1.0-2.8); Alkaline Phosphatase 28 U/L (38-126); Aspartate Aminotransferase 48 IU/L (17-59); Bilirubin Total 0.4 mg/dL (0.2-1.3); Blood Urea Nitrogen 56 mg/dL (9-20); Calcium 6.9 mg/dL (8.4-10.2); Carbon Dioxide 21 mmol/L (22-32); Chloride 108 mmol/L (98-107); Globulin 2.6 g/dL (1.7-4.1); Glucose 206 mg/dL (70-99); Hematocrit 25.5 % (41-53); Mean Corpuscular HGB Conc 31.4 % (30-36); Mean Corpuscular Hemoglobin 27.2 PG (26-34); Mean Corpuscular Volume 86.7 fL (80-100); Platelet Count 205 X10^3/uL (150-400); Red Blood Cell Count 2.94 X10^6/uL (4.5-5.9); Sodium 136 mmol/L (137-145); Total Protein 4.7 g/dL (6.3-8.2); White Blood Cell Count 21.4 X10^3/uL (4.5-11.0)
[2024-12-18 05:41] LABS: HEMOLYSIS 66 (0-50); Potassium 4.4 mmol/L (3.4-5.1)
[2024-12-18 05:42] LABS: Add Manual Diff / Slide Review YES
[2024-12-18 05:45] LABS: BUN Creatinine Ratio 25.8 (6-22); Estimated Glomerular Filt Rate 33 mL/min (>60)
[2024-12-18] MEDS: propofoL 1,000 MG/100 ML VIAL 11.09 MG IV ×3 (06:06→19:52)
[2024-12-18 06:14] LABS: Neutrophils Absolute Manual 19260 /uL (3000-5900); Nucleated Red Blood Cells 1 #/Diff; Total Cells Counted 100
[2024-12-18 06:15] LABS: Anisocytosis 1+; Hypochromasia 1+
--- NOTE | 2024-12-18 06:50 | PC.NURSE ---
shift supervisor RN note assumed care at 1900, pt intubated and sedated, opens eyes/grimaces with repositioning, RASS -3/+2, initally VS on minimal neosynephrine, SR 70-90s, 0420 pt became hypotensive MAP low 50s, maxed out lily without effect, sedation stopped, urgent call to EICU MD and rapid response for more help, levophed and vasopressin started with effect, was able to restart sedation and wean down pressors within 45min, when sedation stopped pt attempting to pull at lines/abd, bilat soft wrist restraints ordered and applied for pt safety, eyes were open and nodded yes when asked if he was having pain, lungs clear, O2 sats >92% on 35%FIO2 on vent 12/500/5+, abd round tender, +BS, colostomy active for mod amt dark brown/black liquid/pasty stool, stoma warm, unable to see color of stoma due to stool, passing flatus, midline incision open, packed with ABD pads and mepilex tape CDI, skin warm, OGT draining mod amt green bile, rose draining small amt clear niecy urine, Q2h gentle turns as tolerated, extrem floated/bridged, dsg to coccyx maintained, meds and labs as ordered, am lab values called to EICU, no new orders, care continued
[2024-12-18] MEDS: ALBUTEROL/IPRATROPIUM 3 ML AMPUL INH ×2 (07:13→16:16)
--- NOTE | 2024-12-18 08:31 | P.PN_ITS ---
Subjective Subjective Interval history: Summary: The patient was admitted with fever and cough on December 13. He has a history of severe COPD and was recently treated for diverticulitis. Initial chest imaging indicated a possible new infiltrate, abdomen CT indicated colitis of the transverse colon. He had recently been treated with IV Zosyn for 14 days for diverticulitis in his [facility] facility. He had no diarrhea. Hospital course: 12/14: IV antibiotics for possible pneumonia and complaints of right-sided abdomen pain. A CTA of the chest and abdomen was suggestive of colitis versus diverticulitis in the mid transverse colon. There were persistent mild inflammatory changes in the descending and sigmoid colon. 12/15: Breathing is improved, he did develop abdominal distention and notes a bowel movement the previous evening. He was also belching. Simethicone was added. 12/16: Breathing less of a concern and there is more abdominal pain. The pain was accompanied with abdominal distention. A KUB was obtained and revealed moderate constipation and no gross free air. WBC was elevated at 18.5, afebrile. 12/17: Less abdominal pain, no fevers. The abdomen was persistently distended. This prompted a CT of the abdomen and pelvis which revealed colonic perforation, and pneumoperitoneum as well as evidence of more significant diverticulitis in the sigmoid and descending colon. The patient was informed of the situation and I discussed the risks and benefits of emergent surgery with the patient and his family. General surgery was consulted and ultimately he did go to the OR for a sigmoid colectomy with an end descending colostomy. The patient required pressors in the OR but did well with regards to being ventilated. Returned to the ICU with a central line and A-line in place and remained relatively stable. 12/18: He was on 2 pressors overnight, he was evidence of acute kidney injury but good urine output with 600 mL of urine overnight. FiO2 on the ventilator is 0.40. Tele-special agent fbi was consulted at 17:00. S: Narrative not obtainable, intubated. Exam Vital Signs (past 8 hours): - 12/18/24 00:45 12/18/24 01:00 12/18/24 01:00 Pulse Rate 74 Respiratory Rate 18 Blood Pressure 108/51 L 107/56 L Pulse Oximetry 98 Oxygen Delivery Method 12/18/24 01:15 12/18/24 01:30 12/18/24 01:30 Pulse Rate Respiratory Rate Blood Pressure 102/49 L 100/48 L 101/54 L Pulse Oximetry Oxygen Delivery Method 12/18/24 01:30 12/18/24 01:45 12/18/24 02:00 Pulse Rate 74 Respiratory Rate 18 Blood Pressure 100/48 L Pulse Oximetry 98 Oxygen Delivery Method Mechanical Ventilation 12/18/24 02:00 12/18/24 02:00 12/18/24 02:00 Pulse Rate 72 Respiratory Rate 18 Blood Pressure 102/48 L 102/54 L Pulse Oximetry 97 Oxygen Delivery Method 12/18/24 02:15 12/18/24 02:30 12/18/24 02:30 Pulse Rate Respiratory Rate Blood Pressure 103/47 L 105/47 L 107/56 L Pulse Oximetry Oxygen Delivery Method 12/18/24 02:30 12/18/24 02:45 12/18/24 03:00 Pulse Rate 71 Respiratory Rate 18 Blood Pressure 94/44 L 103/47 L Pulse Oximetry 98 Oxygen Delivery Method 12/18/24 03:00 12/18/24 03:00 12/18/24 03:15 Pulse Rate 70 Respiratory Rate 18 Blood Pressure 107/57 L 105/47 L Pulse Oximetry 98 Oxygen Delivery Method 12/18/24 03:16 12/18/24 03:30 12/18/24 03:30 Pulse Rate Respiratory Rate Blood Pressure 105/50 L 107/48 L 109/57 L Pulse Oximetry Oxygen Delivery Method 12/18/24 03:30 12/18/24 03:45 12/18/24 04:00 Pulse Rate 69 Respiratory Rate 18 Blood Pressure 107/48 L 109/48 L Pulse Oximetry 98 Oxygen Delivery Method 12/18/24 04:00 12/18/24 04:00 12/18/24 04:15 Pulse Rate 68 Respiratory Rate 18 Blood Pressure 110/58 L 106/49 L Pulse Oximetry 98 Oxygen Delivery Method 12/18/24 04:20 12/18/24 04:22 12/18/24 04:22 Pulse Rate 74 Respiratory Rate 18 Blood Pressure 80/40 L 76/52 L Pulse Oximetry 97 Oxygen Delivery Method 12/18/24 04:25 12/18/24 04:30 12/18/24 04:30 Pulse Rate 75 Respiratory Rate 18 Blood Pressure 65/38 L 80/42 L Pulse Oximetry 95 Oxygen Delivery Method 12/18/24 04:30 12/18/24 04:35 12/18/24 04:43 Pulse Rate Respiratory Rate Blood Pressure 84/49 L 88/50 L 130/66 Pulse Oximetry Oxygen Delivery Method 12/18/24 04:43 12/18/24 05:00 12/18/24 05:00 Pulse Rate 97 H 92 H Respiratory Rate 31 H 18 Blood Pressure 155/66 H Pulse Oximetry 96 98 Oxygen Delivery Method 12/18/24 05:00 12/18/24 05:15 12/18/24 05:30 Pulse Rate Respiratory Rate Blood Pressure 164/70 H 137/59 L 130/62 Pulse Oximetry Oxygen Delivery Method 12/18/24 05:30 12/18/24 05:30 12/18/24 05:45 Pulse Rate 79 Respiratory Rate 18 Blood Pressure 140/60 111/52 L Pulse Oximetry 98 Oxygen Delivery Method 12/18/24 06:00 12/18/24 06:00 12/18/24 06:15 Pulse Rate Respiratory Rate Blood Pressure 118/54 L 114/54 L Pulse Oximetry Oxygen Delivery Method Mechanical Ventilation 12/18/24 06:30 Pulse Rate Respiratory Rate Blood Pressure 125/57 L Pulse Oximetry Oxygen Delivery Method Fraction of Inspired Oxygen 35 SaO2/FiO2 Ratio 339 Oxygen Delivery Method Mechanical Ventilation Oxygen Flow Rate 45 Narrative Exam Narrative: Patient is sedated Patient is on the ventilator, OG tube in place. ?Vaughn catheter in place. There is a right IJ central line as well as a right wrist a line Lungs are clear. Heart is regular. Abdomen is non distended, and soft. There has an ostomy with stool. The patient has a dry gauze and a midline abdominal incision which was not closed on December 17. Extremities are free of edema. Skin is free of rash or lesions. Joints are not swollen or deformed. Objective Imaging Multiple studies:: Radiologist's impression: Chest x-ray December 17: 1. Endotracheal tube with the tip at 7.5 cm above the vipul. Stable position of the right IJ line. 2. The endo gastric suction tube be appears to have the tip just above the GE junction. 3. COPD, no signs of active lung disease. Abdomen pelvis CT December 17: Perforated diverticulitis. Large left-sided colonic diverticulitis is now associated with gross free air and free fluid in the abdomen and pelvis without organized abscess Note: Critical results were discussed with the patient's nurse on the floor, [facility], at 11:03 AM [place] time on 12/17/24 KUB December 16: Moderate constipation. No gross free air. No abnormal calcifications. Chest CTA December 13: 1. No signs of pulmonary emboli. 2. Severe COPD, with moderate improvement of previously seen right upper lobe pneumonia, new mild to moderate right lower lobe pneumonia versus aspiration and stable left lower lobe areas of consolidation. No significant pleural effusion. Abdomen pelvis CT December 13: 1. Findings most suggestive of new mild colitis versus diverticulitis in the mid transverse colon, with persistent mild inflammatory changes in the descending and sigmoid colon. No signs of complications. 2. Stable nonobstructing right renal calculi, no ureteral calculi or signs of obstructive uropathy. Chest x-ray December 13: Biapical emphysematous change. No acute pulmonary infiltrate. Labs 12/18/24 04:40 12/18/24 04:40 Labs: Laboratory Results - last 24 hr 12/17/24 12/17/24 12/17/24 09:55 15:15 17:30 WBC 21.4 H 20.5 H RBC 4.54 3.46 L Hgb 12.2 L 9.5 L Hct 40.1 L 30.5 L MCV 88.4 88.1 MCH 26.9 27.3 MCHC 30.5 31.0 RDW 16.5 H 16.6 H Plt Count 232 232 Neut % (Auto) Not Reportable Lymph % (Auto) Not Reportable [place] % (Auto) Not Reportable Eos % (Auto) Not Reportable Baso % (Auto) Not Reportable Lymph # (Auto) Not Reportable [place] # (Auto) Not Reportable Baso # (Auto) Not Reportable Total Counted 100 Seg Neutrophils % 72.0 H Band Neutrophils % 12.0 H Lymphocytes % (Manual) 4.0 L Monocytes % (Manual) 12.0 H Metamyelocytes % Neutrophils # (Manual) 34526 H Nucleated RBCs RBC Morphology See below Hypochromasia Anisocytosis 1+ H ABG Sample Site ABG pH ABG pCO2 ABG pO2 ABG HCO3 ABG Total CO2 ABG O2 Saturation ABG Base Excess Chau Test Sodium 143 140 Potassium 4.7 4.6 Chloride 107 107 Carbon Dioxide 29 22 BUN 44 H 47 H Creatinine 2.24 H 2.22 H Estimated GFR 32 L 32 L BUN/Creatinine Ratio 19.6 21.2 Glucose 136 H 181 H Lactate 2.8 H Calcium 8.5 7.6 L Total Bilirubin 0.3 0.4 AST 29 32 ALT 20 17 Alkaline Phosphatase 50 42 Total Protein 6.2 L 4.9 L Albumin 3.0 L 2.2 L Globulin 3.2 2.7 Albumin/Globulin Ratio 0.9 L 0.8 L Procalcitonin 44.2 H Blood Type B Positive Antibody Screen Negative Crossmatch See Detail 12/17/24 12/17/24 12/18/24 20:20 22:38 04:40 WBC 21.4 H RBC 2.94 L Hgb 8.0 L Hct 25.5 L MCV 86.7 MCH 27.2 MCHC 31.4 RDW 17.0 H Plt Count 205 Neut % (Auto) Not Reportable Lymph % (Auto) Not Reportable [place] % (Auto) Not Reportable Eos % (Auto) Not Reportable Baso % (Auto) Not Reportable Lymph # (Auto) Not Reportable [place] # (Auto) Not Reportable Baso # (Auto) Not Reportable Total Counted 100 Seg Neutrophils % 86.0 H Band Neutrophils % 4.0 Lymphocytes % (Manual) 5.0 L Monocytes % (Manual) 3.0 Metamyelocytes % 2.0 H Neutrophils # (Manual) 62042 H Nucleated RBCs 1 H RBC Morphology See below Hypochromasia 1+ H Anisocytosis 1+ H ABG Sample Site Arterial line ABG pH 7.42 ABG pCO2 37.9 ABG pO2 112 H ABG HCO3 25 ABG Total CO2 23 ABG O2 Saturation 99 ABG Base Excess 0.2 Chau Test N/a Sodium 136 L Potassium 4.4 Chloride 108 H Carbon Dioxide 21 L BUN 56 H Creatinine 2.17 H Estimated GFR 33 L BUN/Creatinine Ratio 25.8 H Glucose 206 H Lactate 1.2 Calcium 6.9 L Total Bilirubin 0.4 AST 48 ALT 21 Alkaline Phosphatase 28 L Total Protein 4.7 L Albumin 2.1 L Globulin 2.6 Albumin/Globulin Ratio 0.8 L Procalcitonin Blood Type Antibody Screen Crossmatch [facility] Medical History Lung nodule seen on imaging study History of tobacco abuse Fatigue Ventricular tachycardia (paroxysmal) Anemia Palpitations GERD with stricture HTN (hypertension) Insomnia (~2015) Hyperlipidemia (~2015) Anxiety (~2016) COPD (chronic obstructive pulmonary disease) (~2013) Asthma (Unknown) TIA (transient ischemic attack) (05/2014) Hematuria (~2014) Surgical History No pertinent past surgical history Family History Mother Age: 86 Hypertension Sister Age: 69 Cancer Social History household members: none Smoking Status: Former smoker Tobacco: How many years used: 47 quit status: considering quitting second hand exposure: No alcohol intake: former substance use type: does not use Assessment & Plan Assessment & Plan narrative: 1. Perforated viscus, new status post sigmoid colectomy and colostomy. 2. Descending colon and sigmoid diverticulitis, active. 3. Peritonitis, active. 4. Acute kidney injury, active. 5. Severe COPD on the ventilator postoperatively, active. 6. Possible new pneumonia time of admission, active. Plan: -continue IV antibiotics. -continue IV fluids, saline. -continue norepinephrine, attempt to wean phenylephrine. -monitor urine output renal function. He was at high risk for worsening CLAY. -anticipate being in the ventilator for least 48-72 hours prior to any attempt at sedation vacation. -discussed with surgery [id number], anticipate no enteral feedings for least 48-72 hours. -closely monitor her viability of ostomy. -wean FiO2 as able, maintain PEEP of 5. -GI prophylaxis in place. -DVT prophylaxis in place. Critical care time spent 60 minutes. Time-Based Coding :: [TOTAL MINUTES] spent with patient and on the chart (including review of chart, obtaining history, exam, reviewing outside data, placing orders, documenting exam and treatment plan, and counseling patient) on [DATE]. Quality VTE Deep Vein Thrombosis/Pulmonary Embolism Present on Admission: No
--- NOTE | 2024-12-18 08:35 | P.PN_ITS ---
Subjective Subjective Date Patient Seen: 12/18/24 Time Patient Seen: 08:00 Interval history: Orotracheally intubated and sedated. During the night the patient required pressor support consisting at 1 point of Levophed Simon-Synephrine and vasopressin. The vasopressin was quickly weaned. He remains on Levophed and Simon-Synephrine. The Simon-Synephrine as being weaned presently. Pressures are adequate. Exam Vital Signs (past 8 hours): - 12/18/24 00:45 12/18/24 01:00 12/18/24 01:00 Pulse Rate 74 Respiratory Rate 18 Blood Pressure 108/51 L 107/56 L Pulse Oximetry 98 Oxygen Delivery Method 12/18/24 01:15 12/18/24 01:30 12/18/24 01:30 Pulse Rate Respiratory Rate Blood Pressure 102/49 L 100/48 L 101/54 L Pulse Oximetry Oxygen Delivery Method 12/18/24 01:30 12/18/24 01:45 12/18/24 02:00 Pulse Rate 74 Respiratory Rate 18 Blood Pressure 100/48 L Pulse Oximetry 98 Oxygen Delivery Method Mechanical Ventilation 12/18/24 02:00 12/18/24 02:00 12/18/24 02:00 Pulse Rate 72 Respiratory Rate 18 Blood Pressure 102/48 L 102/54 L Pulse Oximetry 97 Oxygen Delivery Method 12/18/24 02:15 12/18/24 02:30 12/18/24 02:30 Pulse Rate Respiratory Rate Blood Pressure 103/47 L 105/47 L 107/56 L Pulse Oximetry Oxygen Delivery Method 12/18/24 02:30 12/18/24 02:45 12/18/24 03:00 Pulse Rate 71 Respiratory Rate 18 Blood Pressure 94/44 L 103/47 L Pulse Oximetry 98 Oxygen Delivery Method 12/18/24 03:00 12/18/24 03:00 12/18/24 03:15 Pulse Rate 70 Respiratory Rate 18 Blood Pressure 107/57 L 105/47 L Pulse Oximetry 98 Oxygen Delivery Method 12/18/24 03:16 12/18/24 03:30 12/18/24 03:30 Pulse Rate Respiratory Rate Blood Pressure 105/50 L 107/48 L 109/57 L Pulse Oximetry Oxygen Delivery Method 12/18/24 03:30 12/18/24 03:45 12/18/24 04:00 Pulse Rate 69 Respiratory Rate 18 Blood Pressure 107/48 L 109/48 L Pulse Oximetry 98 Oxygen Delivery Method 12/18/24 04:00 12/18/24 04:00 12/18/24 04:15 Pulse Rate 68 Respiratory Rate 18 Blood Pressure 110/58 L 106/49 L Pulse Oximetry 98 Oxygen Delivery Method 12/18/24 04:20 12/18/24 04:22 12/18/24 04:22 Pulse Rate 74 Respiratory Rate 18 Blood Pressure 80/40 L 76/52 L Pulse Oximetry 97 Oxygen Delivery Method 12/18/24 04:25 12/18/24 04:30 12/18/24 04:30 Pulse Rate 75 Respiratory Rate 18 Blood Pressure 65/38 L 80/42 L Pulse Oximetry 95 Oxygen Delivery Method 12/18/24 04:30 12/18/24 04:35 12/18/24 04:43 Pulse Rate Respiratory Rate Blood Pressure 84/49 L 88/50 L 130/66 Pulse Oximetry Oxygen Delivery Method 12/18/24 04:43 12/18/24 05:00 12/18/24 05:00 Pulse Rate 97 H 92 H Respiratory Rate 31 H 18 Blood Pressure 155/66 H Pulse Oximetry 96 98 Oxygen Delivery Method 12/18/24 05:00 12/18/24 05:15 12/18/24 05:30 Pulse Rate Respiratory Rate Blood Pressure 164/70 H 137/59 L 130/62 Pulse Oximetry Oxygen Delivery Method 12/18/24 05:30 12/18/24 05:30 12/18/24 05:45 Pulse Rate 79 Respiratory Rate 18 Blood Pressure 140/60 111/52 L Pulse Oximetry 98 Oxygen Delivery Method 12/18/24 06:00 12/18/24 06:00 12/18/24 06:15 Pulse Rate Respiratory Rate Blood Pressure 118/54 L 114/54 L Pulse Oximetry Oxygen Delivery Method Mechanical Ventilation 12/18/24 06:30 Pulse Rate Respiratory Rate Blood Pressure 125/57 L Pulse Oximetry Oxygen Delivery Method Fraction of Inspired Oxygen 35 SaO2/FiO2 Ratio 339 Oxygen Delivery Method Mechanical Ventilation Oxygen Flow Rate 45 Narrative Exam Narrative: Head is normocephalic and atraumatic. Orotracheal tube is in place as well as orogastric tube. Neck is supple. Lungs are clear to auscultation. Patient is on assist control with a tidal volume of 450 mL. Blood gases are acceptable. Heart has a regular rate and rhythm with no murmur or gallop. He is in normal sinus. Abdomen is soft. Bowel sounds are absent. Ostomy is pink, viable and productive of small volumes of stool. Objective Labs 12/18/24 04:40 12/18/24 04:40 Labs: Laboratory Results - last 24 hr 12/17/24 12/17/24 12/17/24 09:55 15:15 17:30 WBC 21.4 H 20.5 H RBC 4.54 3.46 L Hgb 12.2 L 9.5 L Hct 40.1 L 30.5 L MCV 88.4 88.1 MCH 26.9 27.3 MCHC 30.5 31.0 RDW 16.5 H 16.6 H Plt Count 232 232 Neut % (Auto) Not Reportable Lymph % (Auto) Not Reportable George % (Auto) Not Reportable Eos % (Auto) Not Reportable Baso % (Auto) Not Reportable Lymph # (Auto) Not Reportable George # (Auto) Not Reportable Baso # (Auto) Not Reportable Total Counted 100 Seg Neutrophils % 72.0 H Band Neutrophils % 12.0 H Lymphocytes % (Manual) 4.0 L Monocytes % (Manual) 12.0 H Metamyelocytes % Neutrophils # (Manual) 27647 H Nucleated RBCs RBC Morphology See below Hypochromasia Anisocytosis 1+ H ABG Sample Site ABG pH ABG pCO2 ABG pO2 ABG HCO3 ABG Total CO2 ABG O2 Saturation ABG Base Excess Chau Test Sodium 143 140 Potassium 4.7 4.6 Chloride 107 107 Carbon Dioxide 29 22 BUN 44 H 47 H Creatinine 2.24 H 2.22 H Estimated GFR 32 L 32 L BUN/Creatinine Ratio 19.6 21.2 Glucose 136 H 181 H Lactate 2.8 H Calcium 8.5 7.6 L Total Bilirubin 0.3 0.4 AST 29 32 ALT 20 17 Alkaline Phosphatase 50 42 Total Protein 6.2 L 4.9 L Albumin 3.0 L 2.2 L Globulin 3.2 2.7 Albumin/Globulin Ratio 0.9 L 0.8 L Procalcitonin 44.2 H Blood Type B Positive Antibody Screen Negative Crossmatch See Detail 12/17/24 12/17/24 12/18/24 20:20 22:38 04:40 WBC 21.4 H RBC 2.94 L Hgb 8.0 L Hct 25.5 L MCV 86.7 MCH 27.2 MCHC 31.4 RDW 17.0 H Plt Count 205 Neut % (Auto) Not Reportable Lymph % (Auto) Not Reportable George % (Auto) Not Reportable Eos % (Auto) Not Reportable Baso % (Auto) Not Reportable Lymph # (Auto) Not Reportable George # (Auto) Not Reportable Baso # (Auto) Not Reportable Total Counted 100 Seg Neutrophils % 86.0 H Band Neutrophils % 4.0 Lymphocytes % (Manual) 5.0 L Monocytes % (Manual) 3.0 Metamyelocytes % 2.0 H Neutrophils # (Manual) 57204 H Nucleated RBCs 1 H RBC Morphology See below Hypochromasia 1+ H Anisocytosis 1+ H ABG Sample Site Arterial line ABG pH 7.42 ABG pCO2 37.9 ABG pO2 112 H ABG HCO3 25 ABG Total CO2 23 ABG O2 Saturation 99 ABG Base Excess 0.2 Chau Test N/a Sodium 136 L Potassium 4.4 Chloride 108 H Carbon Dioxide 21 L BUN 56 H Creatinine 2.17 H Estimated GFR 33 L BUN/Creatinine Ratio 25.8 H Glucose 206 H Lactate 1.2 Calcium 6.9 L Total Bilirubin 0.4 AST 48 ALT 21 Alkaline Phosphatase 28 L Total Protein 4.7 L Albumin 2.1 L Globulin 2.6 Albumin/Globulin Ratio 0.8 L Procalcitonin Blood Type Antibody Screen Crossmatch [facility] Medical History Lung nodule seen on imaging study History of tobacco abuse Fatigue Ventricular tachycardia (paroxysmal) Anemia Palpitations GERD with stricture HTN (hypertension) Insomnia (~2015) Hyperlipidemia (~2015) Anxiety (~2015) COPD (chronic obstructive pulmonary disease) (~2013) Asthma (Unknown) TIA (transient ischemic attack) (05/2014) Hematuria (~2014) Surgical History No pertinent past surgical history Family History Mother Age: 86 Hypertension Sister Age: 69 Cancer Social History household members: none Smoking Status: Former smoker Tobacco: How many years used: 47 quit status: considering quitting second hand exposure: No alcohol intake: former substance use type: does not use Assessment & Plan Assessment and plan (1) Diverticulitis of colon with perforation: Status: Acute Plan Postop day 1 from Vahid's procedure for perforated diverticulitis. Patient is hemodynamically stable on 2 pressors, 1 of which is being weaned. Patient continues to make adequate volumes of urine. BUN and creatinine are elevated but do not appear to be deteriorating. Continued ventilator dependence. I recommend we wait another 24 hours prior to attempts at ventilator weaning. Given this patient's premorbid pulmonary condition, consideration may need to be given to tracheostomy late next week. Time-Based Coding :: [TOTAL MINUTES] spent with patient and on the chart (including review of chart, obtaining history, exam, reviewing outside data, placing orders, documenting exam and treatment plan, and counseling patient) on [DATE]. 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
[2024-12-18] MEDS: PHENYLEPHRINE 20,000 MCG in DEXTROSE 5% IN WATER 250 ML 13.863 MCG IV (08:38)
[2024-12-18] MEDS: fentaNYL 1,000 MCG in DEXTROSE 5% IN WATER 230 ML 24.029 MCG IV (08:52)
--- NOTE | 2024-12-18 09:37 | CM.DPNOTE ---
DCP note [employer] reviewed EMR per chart review, Emergently taken to OR for perforated vicus, currently intubated/ventilated. Per event note, likely intubated for another two days. transferred to ICU. per previous CM notes, anticiated home with HH and JENNIFER CGs. will continue to follow closely as [facility] POC continues to develop for further DCP needs. P: pending medical prognosis, anticipate likely return home with [facility] resumption/JENNIFER when medically stable. timeline unknown. will continue to follow closely for DCP coordination GILDA Aguilar
[2024-12-18] MEDS: PANTOPRAZOLE 40 MG VIAL IV (09:54)
--- NOTE | 2024-12-18 15:12 | PM.PN.EICU ---
Subjective Subjective IF CAMERA ACTIVATED, patient seen via real-time interactive audiovisual communication: Camera activated Consent obtained for tele-optical instruments supervisor care: Yes Patient Location: ICU Provider location (State): [place] Other participants/roles: rn Interval history: remains intubated and sedated. on pressors but i ordered albumin today to help decrease as he is fluid responsive Current Medications Current Medications Medications: Home Medications ascorbate calcium (vitamin C) 500 mg tablet 500 mg PO DAILY 08/06/23 [History Confirmed 12/13/24] ferrous gluconate 324 mg (38 mg iron) tablet 324 mg PO DAILY #90 tabs 03/28/24 [Rx Confirmed 12/13/24] aluminum-mag hydroxide-simethicone 400 mg-400 mg-40 mg/5 mL oral susp 20 ml PO BID 05/14/24 [History Confirmed 12/13/24] multivitamin with minerals-folic acid 0.4 mg tablet 1 tab PO DAILY 05/14/24 [History Confirmed 12/13/24] nystatin 100,000 unit/mL oral suspension 5 ml PO QID PRN thrush 05/14/24 [History Confirmed 12/13/24] Disabled Parking Permint #1 [id number] 07/01/24 [Rx Confirmed 12/13/24] mometasone-formoterol HFA 200 mcg-5 mcg/actuation aerosol inhaler (Dulera) 2 puff PO BID #13 grams 07/22/24 [Rx Confirmed 12/13/24] cetirizine 10 mg tablet 10 mg PO BEDTIME allergy/asthma 08/25/24 [History Confirmed 12/13/24] clonazepam 0.5 mg tablet 0.5 mg PO TID #90 tabs 08/25/24 [Rx Confirmed 12/13/24] guaifenesin 100 mg/5 mL oral liquid 200 mg PO Q4H PRN cough 08/25/24 [History Confirmed 12/13/24] mecobalamin (vitamin B12) 1,000 mcg chewable tablet 1,000 mcg PO DAILY 08/25/24 [History Confirmed 12/13/24] nitroglycerin 0.3 mg sublingual tablet 0.3 mg sublingual Q5-15M PRN chest pain #20 tabs 08/25/24 [Rx Confirmed 12/13/24] simvastatin 20 mg tablet 20 mg PO QPM #90 tabs 08/25/24 [Rx Confirmed 12/13/24] albuterol sulfate 2.5 mg/3 mL (0.083 %) solution for nebulization 2.5 mg (3 mL) inhalation QID PRN shortness of breath or wheezing #180 mL 09/09/24 [Rx Confirmed 12/13/24] albuterol sulfate 90 mcg/actuation aerosol inhaler (Ventolin HFA) 1 - 2 puff PO Q4H PRN for wheezing #54 grams 09/09/24 [Rx Confirmed 12/13/24] ipratropium bromide 0.02 % solution for inhalation 2.5 ml inhalation QID PRN shortness of breath or wheezing #150 mL 09/09/24 [Rx Confirmed 12/13/24] montelukast 10 mg tablet 10 mg PO BEDTIME #90 tabs 10/11/24 [Rx Confirmed 12/13/24] hydrocodone 5 mg-acetaminophen 325 mg tablet 2 tab PO Q4H PRN Pain, Severe (7-10) #20 tabs 10/28/24 [Rx Confirmed 12/13/24] ondansetron 4 mg disintegrating tablet 4 mg PO Q8H PRN nausea and vomiting #14 tabs 10/28/24 [Rx Confirmed 12/13/24] acetaminophen 500 mg tablet 500 mg PO Q6H PRN Pain (Scale Score 1-3) 10/31/24 [History Confirmed 12/13/24] polyethylene glycol 3350 17 gram/dose oral powder 17 g PO DAILY PRN constipation 10/31/24 [History Confirmed 12/13/24] benzonatate 100 mg capsule 100 mg PO BID-TID PRN Cough #270 caps 11/01/24 [Rx Confirmed 12/13/24] prednisone 10 mg tablet See Rx Instructions PO .COMPLEX #76 tabs 11/01/24 [Rx Confirmed 12/13/24] Visit Medications (administered) Generic Name Dose Route Start Last Admin Trade Name Freq PRN Reason Stop Dose Admin Albuterol/Ipratropium 3 ml 12/17/24 21:33 12/18/24 07:13 Albuterol/Ipratropium 3 Ml Ampul INH 3 ml RTQ4HR PRN Administration Shortness Of Breath Chlorhexidine Gluconate 15 ml 12/17/24 18:00 12/18/24 12:54 Chlorhexidine Gluconate 15 Ml Cup PO 15 ml Q6HR ROBERT Administration Heparin Sodium (Porcine) 5,000 unit 12/17/24 22:00 12/18/24 13:04 Heparin 5,000 Unit/Ml Vial SUBCUT 5,000 unit Q8HR ROBERT Administration Sodium Chloride 1,000 mls @ 125 mls/hr 12/17/24 18:00 12/18/24 14:37 Normal Saline 0.9% IV 125 mls/hr CONT ROBERT Administration Propofol 1,000 mg in 100 mls @ 2.218 mls/hr 12/17/24 18:00 12/18/24 12:57 Diprivan IV 25 mcg/kg/min TITRATE ROBERT 11.09 mls/hr Protocol Administration 5 MCG/KG/MIN Fentanyl 1,000 mcg/ Dextrose 250 mls @ 12.939 mls/hr 12/17/24 18:00 12/18/24 08:52 IV 1.3 mcg/kg/hr TITRATE ROBERT 24.029 mls/hr Protocol Administration 0.7 MCG/KG/HR Phenylephrine HCl 20,000 mcg/ 250 mls @ 27.726 mls/hr 12/17/24 18:15 12/18/24 10:47 Dextrose IV 0.25 mcg/kg/min TITRATE ROBERT 13.863 mls/hr Protocol Titration 0.5 MCG/KG/MIN Piperacillin Sod/Tazobactam 100 mls @ 25 mls/hr 12/17/24 21:00 12/18/24 12:53 Sod 4.5 gm/ Sodium Chloride IV 25 mls/hr Q8H ROBERT Administration NOREPINEPHRINE BITARTRATE/D5W 4 mg in 250 mls @ 27.75 mls/hr 12/18/24 04:29 12/18/24 13:00 Levophed IV 0.1 mcg/kg/min TITRATE ROBERT 27.75 mls/hr Protocol Administration 0.1 MCG/KG/MIN Vasopressin 40 unit/ Sodium 102 mls @ 4.5 mls/hr 12/18/24 04:30 12/18/24 04:55 Chloride IV 0 mls/hr CONT ROBERT Infusion Pantoprazole Sodium 40 mg 12/18/24 09:00 12/18/24 09:54 Pantoprazole 40 Mg Vial IV 40 mg DAILY ROBERT Administration Objective Ventilator Parameters: Ventilator Settings FiO2 35 RT Vent Frequency 18 Ventilator Tidal Volume 500 Exhaled Vt/kg IBW 7.3 Positive End Expiratory 5 Pressure Inspiratory Phase Time 0.90 I:E Ratio 1:2.7 Patient Position HOB >= 30 degrees Labs 12/18/24 04:40 12/18/24 04:40 Labs: Laboratory Results - last 24 hr 12/17/24 12/17/24 12/17/24 15:15 17:30 20:20 WBC 20.5 H RBC 3.46 L Hgb 9.5 L Hct 30.5 L MCV 88.1 MCH 27.3 MCHC 31.0 RDW 16.6 H Plt Count 232 Neut % (Auto) Not Reportable Lymph % (Auto) Not Reportable [place] % (Auto) Not Reportable Eos % (Auto) Not Reportable Baso % (Auto) Not Reportable Lymph # (Auto) Not Reportable [place] # (Auto) Not Reportable Baso # (Auto) Not Reportable Total Counted 100 Seg Neutrophils % 72.0 H Band Neutrophils % 12.0 H Lymphocytes % (Manual) 4.0 L Monocytes % (Manual) 12.0 H Metamyelocytes % Neutrophils # (Manual) 70267 H Nucleated RBCs RBC Morphology See below Hypochromasia Anisocytosis 1+ H ABG Sample Site ABG pH ABG pCO2 ABG pO2 ABG HCO3 ABG Total CO2 ABG O2 Saturation ABG Base Excess Chau Test Sodium 140 Potassium 4.6 Chloride 107 Carbon Dioxide 22 BUN 47 H Creatinine 2.22 H Estimated GFR 32 L BUN/Creatinine Ratio 21.2 Glucose 181 H Lactate 2.8 H 1.2 Calcium 7.6 L Total Bilirubin 0.4 AST 32 ALT 17 Alkaline Phosphatase 42 Total Protein 4.9 L Albumin 2.2 L Globulin 2.7 Albumin/Globulin Ratio 0.8 L Procalcitonin 44.2 H Blood Type B Positive Antibody Screen Negative Crossmatch See Detail 12/17/24 12/18/24 22:38 04:40 WBC 21.4 H RBC 2.94 L Hgb 8.0 L Hct 25.5 L MCV 86.7 MCH 27.2 MCHC 31.4 RDW 17.0 H Plt Count 205 Neut % (Auto) Not Reportable Lymph % (Auto) Not Reportable [place] % (Auto) Not Reportable Eos % (Auto) Not Reportable Baso % (Auto) Not Reportable Lymph # (Auto) Not Reportable [place] # (Auto) Not Reportable Baso # (Auto) Not Reportable Total Counted 100 Seg Neutrophils % 86.0 H Band Neutrophils % 4.0 Lymphocytes % (Manual) 5.0 L Monocytes % (Manual) 3.0 Metamyelocytes % 2.0 H Neutrophils # (Manual) 07052 H Nucleated RBCs 1 H RBC Morphology See below Hypochromasia 1+ H Anisocytosis 1+ H ABG Sample Site Arterial line ABG pH 7.42 ABG pCO2 37.9 ABG pO2 112 H ABG HCO3 25 ABG Total CO2 23 ABG O2 Saturation 99 ABG Base Excess 0.2 Chau Test N/a Sodium 136 L Potassium 4.4 Chloride 108 H Carbon Dioxide 21 L BUN 56 H Creatinine 2.17 H Estimated GFR 33 L BUN/Creatinine Ratio 25.8 H Glucose 206 H Lactate Calcium 6.9 L Total Bilirubin 0.4 AST 48 ALT 21 Alkaline Phosphatase 28 L Total Protein 4.7 L Albumin 2.1 L Globulin 2.6 Albumin/Globulin Ratio 0.8 L Procalcitonin Blood Type Antibody Screen Crossmatch Exam Vital Signs (past 8 hours): - 12/18/24 07:15 12/18/24 07:30 12/18/24 07:30 Temperature Pulse Rate 75 75 Respiratory Rate 18 Blood Pressure 137/60 127/60 Pulse Oximetry 97 Oxygen Delivery Method 12/18/24 07:30 12/18/24 07:44 12/18/24 07:45 Temperature 99.3 F Pulse Rate 75 84 79 Respiratory Rate 18 Blood Pressure 139/60 123/54 L 137/58 L Pulse Oximetry 97 Oxygen Delivery Method 12/18/24 08:00 12/18/24 08:00 12/18/24 08:00 Temperature Pulse Rate 80 Respiratory Rate 18 Blood Pressure 128/59 L Pulse Oximetry 96 97 Oxygen Delivery Method Mechanical Ventilation 12/18/24 08:00 12/18/24 08:00 12/18/24 08:15 Temperature Pulse Rate 80 86 85 Respiratory Rate Blood Pressure 138/58 L 126/54 L 119/54 L Pulse Oximetry Oxygen Delivery Method 12/18/24 08:30 12/18/24 08:30 12/18/24 08:30 Temperature Pulse Rate 85 85 Respiratory Rate 18 Blood Pressure 111/59 L 120/56 L Pulse Oximetry 97 Oxygen Delivery Method 12/18/24 08:45 12/18/24 08:45 12/18/24 09:00 Temperature Pulse Rate 87 88 93 H Respiratory Rate Blood Pressure 126/54 L 126/54 L 119/54 L Pulse Oximetry Oxygen Delivery Method 12/18/24 09:00 12/18/24 09:00 12/18/24 09:00 Temperature Pulse Rate 93 H 84 Respiratory Rate 18 Blood Pressure 119/54 L 114/55 L Pulse Oximetry 96 Oxygen Delivery Method 12/18/24 09:15 12/18/24 09:30 12/18/24 09:30 Temperature Pulse Rate 94 H 88 Respiratory Rate Blood Pressure 122/52 L 112/50 L 107/55 L Pulse Oximetry Oxygen Delivery Method 12/18/24 09:30 12/18/24 09:45 12/18/24 10:00 Temperature Pulse Rate 87 83 81 Respiratory Rate 18 Blood Pressure 111/50 L 116/51 L Pulse Oximetry 95 Oxygen Delivery Method 12/18/24 10:00 12/18/24 10:00 12/18/24 10:00 Temperature Pulse Rate Respiratory Rate Blood Pressure 111/59 L Pulse Oximetry 97 Oxygen Delivery Method Mechanical Ventilation Mechanical Ventilation 12/18/24 10:00 12/18/24 10:15 12/18/24 10:30 Temperature Pulse Rate 80 81 79 Respiratory Rate 18 Blood Pressure 116/51 L 123/53 L Pulse Oximetry 97 Oxygen Delivery Method 12/18/24 10:30 12/18/24 10:30 12/18/24 10:45 Temperature Pulse Rate 78 78 Respiratory Rate 18 Blood Pressure 118/57 L 129/55 L Pulse Oximetry 97 Oxygen Delivery Method 12/18/24 11:00 12/18/24 11:00 12/18/24 11:00 Temperature Pulse Rate 78 78 Respiratory Rate 18 Blood Pressure 109/49 L 105/58 L Pulse Oximetry 97 Oxygen Delivery Method 12/18/24 11:15 12/18/24 11:30 12/18/24 11:30 Temperature Pulse Rate 78 77 Respiratory Rate Blood Pressure 111/50 L 114/51 L 107/55 L Pulse Oximetry Oxygen Delivery Method 12/18/24 11:30 12/18/24 11:45 12/18/24 12:00 Temperature Pulse Rate 77 78 Respiratory Rate 18 Blood Pressure 133/56 L Pulse Oximetry 97 97 Oxygen Delivery Method Mechanical Ventilation 12/18/24 12:00 12/18/24 12:00 12/18/24 12:00 Temperature Pulse Rate 77 77 Respiratory Rate 18 Blood Pressure 114/51 L 110/57 L Pulse Oximetry 97 Oxygen Delivery Method 12/18/24 12:15 12/18/24 12:30 12/18/24 12:30 Temperature Pulse Rate 77 77 Respiratory Rate Blood Pressure 110/50 L 116/52 L 108/56 L Pulse Oximetry Oxygen Delivery Method 12/18/24 12:30 12/18/24 13:00 12/18/24 13:00 Temperature 99.8 F H Pulse Rate 76 76 Respiratory Rate 18 Blood Pressure 114/51 L Pulse Oximetry 97 Oxygen Delivery Method 12/18/24 13:00 12/18/24 13:00 12/18/24 13:15 Temperature Pulse Rate 76 85 Respiratory Rate 18 Blood Pressure 109/55 L 127/52 L Pulse Oximetry 97 Oxygen Delivery Method 12/18/24 13:30 12/18/24 13:45 12/18/24 14:00 Temperature Pulse Rate 83 80 Respiratory Rate Blood Pressure 116/53 L 113/50 L Pulse Oximetry 95 Oxygen Delivery Method Mechanical Ventilation 12/18/24 14:00 12/18/24 14:15 12/18/24 14:30 Temperature Pulse Rate 77 75 76 Respiratory Rate Blood Pressure 117/52 L 120/52 L 127/55 L Pulse Oximetry Oxygen Delivery Method 12/18/24 14:45 Temperature Pulse Rate 84 Respiratory Rate Blood Pressure 119/55 L Pulse Oximetry Oxygen Delivery Method Fraction of Inspired Oxygen 35 SaO2/FiO2 Ratio 339 Oxygen Delivery Method Mechanical Ventilation Oxygen Flow Rate 45 Narrative Exam Narrative: intubated sedated symmetric chest rise rate ocntrolled Quality TeleICU VTE Deep Vein Thrombosis/Pulmonary Embolism Present on Admission: No Assessment & Plan Assessment and plan (1) CLAY (acute kidney injury): Status: Acute (2) Acute and chronic respiratory failure with hypoxia: Status: Acute (3) Diverticulitis of colon with perforation: Status: Acute Assessment & Plan narrative: vent/sedation bundle daily SBTSAT - currently passing map goal >65 - given albumin bolus NPO trend labs empirc abx f/u cx dvt ppx plan for extubation in am , ritchie if pressor load low Time-Based Coding :: [35] spent with patient and on the chart (including review of chart, obtaining history, exam, reviewing outside data, placing orders, documenting exam and treatment plan, and counseling patient) on [12/18]. total critical care time 35 min
--- NOTE | 2024-12-18 18:00 | DI.RAD.S_ITS ---
PROCEDURE: XR CHEST 1V INDICATIONS: Intubated TECHNIQUE: One view of the chest was acquired. COMPARISON: [facility], CR, XR CHEST 1V, 12/17/2024, 21:13. [facility], CR, XR CHEST 1V, 12/17/2024, 16:33. FINDINGS: Surgical changes and devices: Stable position of right central venous catheter and enteric tube. Endotracheal tube approximately 4 cm above the vipul. Lungs and pleura: Stable scarring in the right upper lung field. Redemonstration of emphysematous changes. No pleural effusions or pneumothorax. Mediastinum: Mediastinal contours appear normal. Heart size is normal. Bones and chest wall: No suspicious bony lesions. Overlying soft tissues appear unremarkable. IMPRESSION: Lines and tubes as above. Stable scarring in the right upper lung field. No acute cardiopulmonary abnormality is seen. Emphysematous changes are redemonstrated. Dictated by: Nolberto Burton M.D. on 12/18/2024 at 20:02 Approved by: Nolberto Burton M.D. on 12/18/2024 at 20:05
[2024-12-18 18:11] LABS: Base Excess ABG -1.9 mmol/L (-2-3); Blood Gas Collection Site Arterial Line; HCO3 ABG 23 mmol/L (23-27); Oxygen Saturation ABG 98 % (95-100); PCO2 ABG 38.5 mmHg (35-45); PO2 ABG 106 mmHg (80-100); TCO2 ABG 22 mmol/L (23-27); pH ABG 7.38 (7.35-7.45)
[2024-12-18] MEDS: fentaNYL 1,000 MCG in DEXTROSE 5% IN WATER 230 ML 33.271 MCG IV (19:13)
[2024-12-18 19:51] LABS: Hematocrit 23.2 % (41-53); Hemoglobin 7.3 g/dL (13.5-17.5); Mean Corpuscular HGB Conc 31.6 % (30-36); Mean Corpuscular Volume 85.4 fL (80-100); Platelet Count 219 X10^3/uL (150-400); Red Blood Cell Count 2.71 X10^6/uL (4.5-5.9); Red Cell Distribution Width 17.1 % (11.6-14.8); White Blood Cell Count 17.5 X10^3/uL (4.5-11.0)
[2024-12-18 19:55] LABS: Prothrombin Time 10.8 SECONDS (9.4-12.5)
[2024-12-18 19:59] LABS: Alanine Aminotransferase 16 IU/L (<50); Albumin 2.2 g/dL (3.5-5.0); Albumin Globulin Ratio 0.8 (1.0-2.8); Alkaline Phosphatase 48 U/L (38-126); Aspartate Aminotransferase 40 IU/L (17-59); Bilirubin Total 0.3 mg/dL (0.2-1.3); Blood Urea Nitrogen 59 mg/dL (9-20); Calcium 6.8 mg/dL (8.4-10.2); Carbon Dioxide 20 mmol/L (22-32); Chloride 108 mmol/L (98-107); Globulin 2.8 g/dL (1.7-4.1); Glucose 129 mg/dL (70-99); HEMOLYSIS 22 (0-50); Potassium 3.9 mmol/L (3.4-5.1); Sodium 134 mmol/L (137-145)
[2024-12-18 20:05] LABS: BUN Creatinine Ratio 26.7 (6-22); Estimated Glomerular Filt Rate 32 mL/min (>60)
[2024-12-19] VITALS (104 sets, daily range): BP systolic 96–150; BP diastolic 40–68; PULSE 68–119; RESP 18–22; TEMP 36.8–37.6; O2SAT 91–98
[2024-12-19 01:09] LABS: Add Manual Diff / Slide Review NO; Basophils Absolute Auto 0 /uL (0-100); Basophils Percent Auto 0.3 % (0-2); Eosinophils Absolute Auto 0 /uL (0-450); Hematocrit 21.7 % (41-53); Lymphocytes Absolute Auto 600 /uL (1100-4500); Lymphocytes Percent Auto 3.7 % (25-40); Mean Corpuscular HGB Conc 32.3 % (30-36); Mean Corpuscular Hemoglobin 27.3 PG (26-34); Mean Corpuscular Volume 84.5 fL (80-100); Monocytes Absolute Auto 1300 /uL (0-900); Monocytes Percent Auto 8.9 % (3-14); Neutrophils Absolute Auto 13300 /uL (1500-7000); Neutrophils Percent Auto 87.1 % (50-75); Platelet Count 199 X10^3/uL (150-400); Red Blood Cell Count 2.57 X10^6/uL (4.5-5.9); Red Cell Distribution Width 16.7 % (11.6-14.8); White Blood Cell Count 15.2 X10^3/uL (4.5-11.0)
[2024-12-19] MEDS: fentaNYL 1,000 MCG in DEXTROSE 5% IN WATER 230 ML 33.271 MCG IV ×2 (02:38→09:27)
[2024-12-19] MEDS: propofoL 1,000 MG/100 ML VIAL 13.308 MG IV ×2 (03:31→09:25)
[2024-12-19] MEDS: HEPARIN 5,000 UNIT/ML VIAL 5000 UNIT SUBCUT ×3 (05:19→22:41)
[2024-12-19] MEDS: CHLORHEXIDINE GLUCONATE 15 ML CUP PO ×3 (05:19→17:14)
[2024-12-19] MEDS: PIPERACILLIN/TAZO 4.5 GM in SODIUM CHLORIDE 0.9% 100 ML IV ×3 (05:20→20:45)
--- NOTE | 2024-12-19 06:31 | PC.NURSE ---
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
--- NOTE | 2024-12-19 08:29 | P.PN_ITS ---
Subjective Subjective Date Patient Seen: 12/19/24 Time Patient Seen: 08:00 Interval history: Patient remains sedated and intubated. Simon-Synephrine has been weaned off. The patient remains on low-dose Levophed. Exam Vital Signs (past 8 hours): - 12/19/24 00:30 12/19/24 00:30 12/19/24 00:30 Temperature Pulse Rate 75 Respiratory Rate 18 Blood Pressure 121/59 L 105/59 L Pulse Oximetry 98 Oxygen Delivery Method 12/19/24 00:45 12/19/24 01:00 12/19/24 01:00 Temperature Pulse Rate Respiratory Rate Blood Pressure 122/59 L 124/61 Pulse Oximetry Oxygen Delivery Method Mechanical Ventilation 12/19/24 01:00 12/19/24 01:00 12/19/24 01:15 Temperature Pulse Rate 73 Respiratory Rate 18 Blood Pressure 106/56 L 116/57 L Pulse Oximetry 98 Oxygen Delivery Method 12/19/24 01:30 12/19/24 01:30 12/19/24 01:30 Temperature Pulse Rate 74 Respiratory Rate 18 Blood Pressure 121/59 L 107/55 L Pulse Oximetry 98 Oxygen Delivery Method 12/19/24 01:45 12/19/24 02:00 12/19/24 02:00 Temperature Pulse Rate Respiratory Rate Blood Pressure 118/59 L 103/59 L Pulse Oximetry 95 Oxygen Delivery Method Mechanical Ventilation 12/19/24 02:00 12/19/24 02:00 12/19/24 02:15 Temperature Pulse Rate 72 Respiratory Rate 18 Blood Pressure 118/59 L 121/60 Pulse Oximetry 98 Oxygen Delivery Method 12/19/24 02:30 12/19/24 02:30 12/19/24 02:30 Temperature Pulse Rate 76 Respiratory Rate 18 Blood Pressure 108/55 L 119/58 L Pulse Oximetry 97 Oxygen Delivery Method 12/19/24 02:32 12/19/24 02:39 12/19/24 02:45 Temperature 98.8 F 98.3 F Pulse Rate 75 76 Respiratory Rate 18 20 Blood Pressure 120/59 L 113/53 L 117/56 L Pulse Oximetry Oxygen Delivery Method 12/19/24 03:00 12/19/24 03:00 12/19/24 03:00 Temperature Pulse Rate 72 Respiratory Rate 18 Blood Pressure 104/57 L 116/55 L Pulse Oximetry 98 Oxygen Delivery Method 12/19/24 03:00 12/19/24 03:15 12/19/24 03:30 Temperature Pulse Rate Respiratory Rate Blood Pressure 120/57 L 128/59 L 145/65 H Pulse Oximetry Oxygen Delivery Method 12/19/24 03:30 12/19/24 03:45 12/19/24 04:00 Temperature 99.7 F H Pulse Rate 90 70 Respiratory Rate 18 18 Blood Pressure 114/50 L 106/59 L Pulse Oximetry 98 98 Oxygen Delivery Method 12/19/24 04:00 12/19/24 04:00 12/19/24 04:00 Temperature Pulse Rate 74 Respiratory Rate 18 Blood Pressure 106/57 L Pulse Oximetry 94 97 Oxygen Delivery Method Mechanical Ventilation 12/19/24 04:00 12/19/24 04:15 12/19/24 04:30 Temperature 99.7 F H Pulse Rate 71 Respiratory Rate 18 Blood Pressure 114/53 L 113/53 L 117/56 L Pulse Oximetry Oxygen Delivery Method 12/19/24 04:30 12/19/24 04:30 12/19/24 04:45 Temperature Pulse Rate 71 Respiratory Rate 18 Blood Pressure 106/59 L 117/55 L Pulse Oximetry 98 Oxygen Delivery Method 12/19/24 05:00 12/19/24 05:00 12/19/24 05:00 Temperature Pulse Rate 71 Respiratory Rate 18 Blood Pressure 113/62 Pulse Oximetry 98 Oxygen Delivery Method Mechanical Ventilation 12/19/24 05:00 12/19/24 05:15 12/19/24 05:30 Temperature Pulse Rate Respiratory Rate Blood Pressure 123/57 L 102/48 L 112/51 L Pulse Oximetry Oxygen Delivery Method 12/19/24 06:00 12/19/24 07:34 12/19/24 07:36 Temperature Pulse Rate Respiratory Rate Blood Pressure 116/55 L 107/50 L Pulse Oximetry 97 Oxygen Delivery Method Fraction of Inspired Oxygen 35 SaO2/FiO2 Ratio 277 Oxygen Delivery Method Mechanical Ventilation Oxygen Flow Rate 45 Narrative Exam Narrative: Orotracheally intubated. Lungs are clear to auscultation. Heart has a regular rate and rhythm with no murmur or gallop. He is in normal sinus rhythm with a rate in the 70s at the time of my evaluation. Abdomen is tense. Bowel sounds are present. Dressing is dry. Ostomy is pink and viable. There is a small amount of stool in the bag. Objective Labs 12/19/24 01:00 12/18/24 19:30 Labs: Laboratory Results - last 24 hr 12/17/24 12/18/24 12/18/24 15:15 18:08 19:30 WBC 17.5 H RBC 2.71 L Hgb 7.3 L Hct 23.2 L MCV 85.4 MCH 27.0 MCHC 31.6 RDW 17.1 H Plt Count 219 Neut % (Auto) Lymph % (Auto) [place] % (Auto) Eos % (Auto) Baso % (Auto) Neut # (Auto) Lymph # (Auto) [place] # (Auto) Eos # (Auto) Baso # (Auto) PT 10.8 INR 1.0 ABG Sample Site Arterial line ABG pH 7.38 ABG pCO2 38.5 ABG pO2 106 H ABG HCO3 23 ABG Total CO2 22 L ABG O2 Saturation 98 ABG Base Excess -1.9 Chau Test N/a Sodium 134 L Potassium 3.9 Chloride 108 H Carbon Dioxide 20 L BUN 59 H Creatinine 2.21 H Estimated GFR 32 L BUN/Creatinine Ratio 26.7 H Glucose 129 H Lactate 1.0 Calcium 6.8 L Total Bilirubin 0.3 AST 40 ALT 16 Alkaline Phosphatase 48 Total Protein 5.0 L Albumin 2.2 L Globulin 2.8 Albumin/Globulin Ratio 0.8 L Blood Type B Positive Antibody Screen Negative Crossmatch See Detail 12/19/24 01:00 WBC 15.2 H RBC 2.57 L Hgb 7.0 L Hct 21.7 L MCV 84.5 MCH 27.3 MCHC 32.3 RDW 16.7 H Plt Count 199 Neut % (Auto) 87.1 H Lymph % (Auto) 3.7 L [place] % (Auto) 8.9 Eos % (Auto) 0.0 L Baso % (Auto) 0.3 Neut # (Auto) 96491 H Lymph # (Auto) 600 L [place] # (Auto) 1300 H Eos # (Auto) 0 Baso # (Auto) 0 PT INR ABG Sample Site ABG pH ABG pCO2 ABG pO2 ABG HCO3 ABG Total CO2 ABG O2 Saturation ABG Base Excess Chau Test Sodium Potassium Chloride Carbon Dioxide BUN Creatinine Estimated GFR BUN/Creatinine Ratio Glucose Lactate Calcium Total Bilirubin AST ALT Alkaline Phosphatase Total Protein Albumin Globulin Albumin/Globulin Ratio Blood Type Antibody Screen Crossmatch [facility] Medical History Lung nodule seen on imaging study History of tobacco abuse Fatigue Ventricular tachycardia (paroxysmal) Anemia Palpitations GERD with stricture HTN (hypertension) Insomnia (~2015) Hyperlipidemia (~2015) Anxiety (~2015) COPD (chronic obstructive pulmonary disease) (~2013) Asthma (Unknown) TIA (transient ischemic attack) (05/2014) Hematuria (~2014) Surgical History No pertinent past surgical history Family History Mother Age: 86 Hypertension Sister Age: 69 Cancer Social History household members: none Smoking Status: Former smoker Tobacco: How many years used: 47 quit status: considering quitting second hand exposure: No alcohol intake: former substance use type: does not use Assessment & Plan Assessment and plan (1) Diverticulitis of colon with perforation: Status: Acute Plan Pulmonary: Remains ventilator dependent. I recommend that we proceed with weaning trials starting this morning. I anticipate a potential need for tracheostomy later in the week given patient's premorbid pulmonary condition. Renal: Mild renal insufficiency without evidence of functional deterioration. The patient continues to make 400-600 mL of urine a shift. Continue to monitor. Cardiovascular: Currently in stable condition, tolerating pressor wean. Continue weaning pressors. GI: No indication of function yet. Ostomy remained pink and viable. Plan to await return of GI function. If functional return is delayed, we could consider trophic enteral feeds per orogastric tube in combination with parenteral nutrition. Leukocytosis appears to be resolving. I recommend we continue IV antibiotics as we are at present. Time-Based Coding :: [TOTAL MINUTES] spent with patient and on the chart (including review of chart, obtaining history, exam, reviewing outside data, placing orders, documenting exam and treatment plan, and counseling patient) on [DATE]. 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
[2024-12-19] MEDS: PANTOPRAZOLE 40 MG VIAL IV (09:38)
--- NOTE | 2024-12-19 09:47 | PM.PN.EICU ---
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 Patient Location: ICU Provider location (State): [place] Other participants/roles: bedside RT, RN Interval history: Patient remains on vent- 35% fio2- c/o of pain this am despite fentanyl gtt remains on levophed gtt WBC downtrending Cr 2.2- is making urine Current Medications Current Medications Medications: Home Medications ascorbate calcium (vitamin C) 500 mg tablet 500 mg PO DAILY 08/06/23 [History Confirmed 12/13/24] ferrous gluconate 324 mg (38 mg iron) tablet 324 mg PO DAILY #90 tabs 03/28/24 [Rx Confirmed 12/13/24] aluminum-mag hydroxide-simethicone 400 mg-400 mg-40 mg/5 mL oral susp 20 ml PO BID 05/14/24 [History Confirmed 12/13/24] multivitamin with minerals-folic acid 0.4 mg tablet 1 tab PO DAILY 05/14/24 [History Confirmed 12/13/24] nystatin 100,000 unit/mL oral suspension 5 ml PO QID PRN thrush 05/14/24 [History Confirmed 12/13/24] Disabled Parking Permint #1 ea 07/01/24 [Rx Confirmed 12/13/24] mometasone-formoterol HFA 200 mcg-5 mcg/actuation aerosol inhaler (Dulera) 2 puff PO BID #13 grams 07/22/24 [Rx Confirmed 12/13/24] cetirizine 10 mg tablet 10 mg PO BEDTIME allergy/asthma 08/25/24 [History Confirmed 12/13/24] clonazepam 0.5 mg tablet 0.5 mg PO TID #90 tabs 08/25/24 [Rx Confirmed 12/13/24] guaifenesin 100 mg/5 mL oral liquid 200 mg PO Q4H PRN cough 08/25/24 [History Confirmed 12/13/24] mecobalamin (vitamin B12) 1,000 mcg chewable tablet 1,000 mcg PO DAILY 08/25/24 [History Confirmed 12/13/24] nitroglycerin 0.3 mg sublingual tablet 0.3 mg sublingual Q5-15M PRN chest pain #20 tabs 08/25/24 [Rx Confirmed 12/13/24] simvastatin 20 mg tablet 20 mg PO QPM #90 tabs 08/25/24 [Rx Confirmed 12/13/24] albuterol sulfate 2.5 mg/3 mL (0.083 %) solution for nebulization 2.5 mg (3 mL) inhalation QID PRN shortness of breath or wheezing #180 mL 09/09/24 [Rx Confirmed 12/13/24] albuterol sulfate 90 mcg/actuation aerosol inhaler (Ventolin HFA) 1 - 2 puff PO Q4H PRN for wheezing #54 grams 09/09/24 [Rx Confirmed 12/13/24] ipratropium bromide 0.02 % solution for inhalation 2.5 ml inhalation QID PRN shortness of breath or wheezing #150 mL 09/09/24 [Rx Confirmed 12/13/24] montelukast 10 mg tablet 10 mg PO BEDTIME #90 tabs 10/11/24 [Rx Confirmed 12/13/24] hydrocodone 5 mg-acetaminophen 325 mg tablet 2 tab PO Q4H PRN Pain, Severe (7-10) #20 tabs 10/28/24 [Rx Confirmed 12/13/24] ondansetron 4 mg disintegrating tablet 4 mg PO Q8H PRN nausea and vomiting #14 tabs 10/28/24 [Rx Confirmed 12/13/24] acetaminophen 500 mg tablet 500 mg PO Q6H PRN Pain (Scale Score 1-3) 10/31/24 [History Confirmed 12/13/24] polyethylene glycol 3350 17 gram/dose oral powder 17 g PO DAILY PRN constipation 10/31/24 [History Confirmed 12/13/24] benzonatate 100 mg capsule 100 mg PO BID-TID PRN Cough #270 caps 11/01/24 [Rx Confirmed 12/13/24] prednisone 10 mg tablet See Rx Instructions PO .COMPLEX #76 tabs 11/01/24 [Rx Confirmed 12/13/24] Visit Medications (administered) Generic Name Dose Route Start Last Admin Trade Name Freq PRN Reason Stop Dose Admin Albuterol/Ipratropium 3 ml 12/17/24 21:33 12/18/24 16:16 Albuterol/Ipratropium 3 Ml Ampul INH 3 ml RTQ4HR PRN Administration Shortness Of Breath Chlorhexidine Gluconate 15 ml 06/07/25 18:00 12/19/24 05:19 Chlorhexidine Gluconate 15 Ml Cup PO 15 ml Q6HR ROBERT Administration Heparin Sodium (Porcine) 5,000 unit 12/17/24 22:00 12/19/24 05:19 Heparin 5,000 Unit/Ml Vial SUBCUT 5,000 unit Q8HR ROBERT Administration Sodium Chloride 1,000 mls @ 125 mls/hr 12/17/24 18:00 12/18/24 22:21 Normal Saline 0.9% IV 125 mls/hr CONT ROBERT Administration Propofol 1,000 mg in 100 mls @ 2.218 mls/hr 12/17/24 18:00 12/19/24 09:25 Diprivan IV 30 mcg/kg/min TITRATE ROBERT 13.308 mls/hr Protocol Administration 5 MCG/KG/MIN Fentanyl 1,000 mcg/ Dextrose 250 mls @ 12.939 mls/hr 12/17/24 18:00 12/19/24 09:27 IV 1.8 mcg/kg/hr TITRATE ROBERT 33.271 mls/hr Protocol Administration 0.7 MCG/KG/HR Phenylephrine HCl 20,000 mcg/ 250 mls @ 27.726 mls/hr 12/17/24 18:15 12/18/24 14:35 Dextrose IV 0 mcg/kg/min TITRATE ROBERT 0 mls/hr Protocol Titration 0.5 MCG/KG/MIN Piperacillin Sod/Tazobactam 100 mls @ 25 mls/hr 12/17/24 21:00 12/19/24 09:14 Sod 4.5 gm/ Sodium Chloride IV Infused Q8H ROBERT Infusion NOREPINEPHRINE BITARTRATE/D5W 4 mg in 250 mls @ 27.75 mls/hr 12/18/24 04:29 12/19/24 05:29 Levophed IV 0.05 mcg/kg/min TITRATE ROBERT 13.875 mls/hr Protocol Titration 0.1 MCG/KG/MIN Vasopressin 40 unit/ Sodium 102 mls @ 4.5 mls/hr 12/18/24 04:30 12/18/24 04:55 Chloride IV 0 mls/hr CONT ROBERT Infusion Pantoprazole Sodium 40 mg 12/18/24 09:00 12/19/24 09:38 Pantoprazole 40 Mg Vial IV 40 mg DAILY ROBERT Administration Objective Ventilator Parameters: Ventilator Settings FiO2 35 RT Vent Frequency 18 Ventilator Tidal Volume 500 Exhaled Vt/kg IBW 7.3 Positive End Expiratory 5 Pressure Inspiratory Phase Time 0.90 I:E Ratio 1:2.8 Patient Position HOB >= 30 degrees Labs 12/19/24 01:00 12/18/24 19:30 Labs: Laboratory Results - last 24 hr 12/17/24 12/18/24 12/18/24 15:15 18:08 19:30 WBC 17.5 H RBC 2.71 L Hgb 7.3 L Hct 23.2 L MCV 85.4 MCH 27.0 MCHC 31.6 RDW 17.1 H Plt Count 219 Neut % (Auto) Lymph % (Auto) [place] % (Auto) Eos % (Auto) Baso % (Auto) Neut # (Auto) Lymph # (Auto) [place] # (Auto) Eos # (Auto) Baso # (Auto) PT 10.8 INR 1.0 ABG Sample Site Arterial line ABG pH 7.38 ABG pCO2 38.5 ABG pO2 106 H ABG HCO3 23 ABG Total CO2 22 L ABG O2 Saturation 98 ABG Base Excess -1.9 Chau Test N/a Sodium 134 L Potassium 3.9 Chloride 108 H Carbon Dioxide 20 L BUN 59 H Creatinine 2.21 H Estimated GFR 32 L BUN/Creatinine Ratio 26.7 H Glucose 129 H Lactate 1.0 Calcium 6.8 L Total Bilirubin 0.3 AST 40 ALT 16 Alkaline Phosphatase 48 Total Protein 5.0 L Albumin 2.2 L Globulin 2.8 Albumin/Globulin Ratio 0.8 L Blood Type B Positive Antibody Screen Negative Crossmatch See Detail 12/19/24 01:00 WBC 15.2 H RBC 2.57 L Hgb 7.0 L Hct 21.7 L MCV 84.5 MCH 27.3 MCHC 32.3 RDW 16.7 H Plt Count 199 Neut % (Auto) 87.1 H Lymph % (Auto) 3.7 L [place] % (Auto) 8.9 Eos % (Auto) 0.0 L Baso % (Auto) 0.3 Neut # (Auto) 36552 H Lymph # (Auto) 600 L [place] # (Auto) 1300 H Eos # (Auto) 0 Baso # (Auto) 0 PT INR ABG Sample Site ABG pH ABG pCO2 ABG pO2 ABG HCO3 ABG Total CO2 ABG O2 Saturation ABG Base Excess Chau Test Sodium Potassium Chloride Carbon Dioxide BUN Creatinine Estimated GFR BUN/Creatinine Ratio Glucose Lactate Calcium Total Bilirubin AST ALT Alkaline Phosphatase Total Protein Albumin Globulin Albumin/Globulin Ratio Blood Type Antibody Screen Crossmatch Exam Vital Signs (past 8 hours): - 12/19/24 02:00 12/19/24 02:00 12/19/24 02:00 Temperature Pulse Rate 72 Respiratory Rate 18 Blood Pressure 103/59 L Pulse Oximetry 95 98 Oxygen Delivery Method Mechanical Ventilation 12/19/24 02:00 12/19/24 02:15 12/19/24 02:30 Temperature Pulse Rate Respiratory Rate Blood Pressure 118/59 L 121/60 108/55 L Pulse Oximetry Oxygen Delivery Method 12/19/24 02:30 12/19/24 02:30 12/19/24 02:32 Temperature 98.8 F Pulse Rate 76 75 Respiratory Rate 18 18 Blood Pressure 119/58 L 120/59 L Pulse Oximetry 97 Oxygen Delivery Method 12/19/24 02:39 12/19/24 02:45 12/19/24 03:00 Temperature 98.3 F Pulse Rate 76 Respiratory Rate 20 Blood Pressure 113/53 L 117/56 L 104/57 L Pulse Oximetry Oxygen Delivery Method 12/19/24 03:00 12/19/24 03:00 12/19/24 03:00 Temperature Pulse Rate 72 Respiratory Rate 18 Blood Pressure 116/55 L 120/57 L Pulse Oximetry 98 Oxygen Delivery Method 12/19/24 03:15 12/19/24 03:30 12/19/24 03:30 Temperature Pulse Rate 90 Respiratory Rate 18 Blood Pressure 128/59 L 145/65 H Pulse Oximetry 98 Oxygen Delivery Method 12/19/24 03:45 12/19/24 04:00 12/19/24 04:00 Temperature 99.7 F H Pulse Rate 70 Respiratory Rate 18 Blood Pressure 114/50 L 106/59 L Pulse Oximetry 98 94 Oxygen Delivery Method Mechanical Ventilation 12/19/24 04:00 12/19/24 04:00 12/19/24 04:00 Temperature Pulse Rate 74 Respiratory Rate 18 Blood Pressure 106/57 L 114/53 L Pulse Oximetry 97 Oxygen Delivery Method 12/19/24 04:15 12/19/24 04:30 12/19/24 04:30 Temperature 99.7 F H Pulse Rate 71 Respiratory Rate 18 Blood Pressure 113/53 L 117/56 L 106/59 L Pulse Oximetry Oxygen Delivery Method 12/19/24 04:30 12/19/24 04:45 12/19/24 05:00 Temperature Pulse Rate 71 Respiratory Rate 18 Blood Pressure 117/55 L Pulse Oximetry 98 Oxygen Delivery Method Mechanical Ventilation 12/19/24 05:00 12/19/24 05:00 12/19/24 05:00 Temperature Pulse Rate 71 Respiratory Rate 18 Blood Pressure 113/62 123/57 L Pulse Oximetry 98 Oxygen Delivery Method 12/19/24 05:15 12/19/24 05:30 12/19/24 06:00 Temperature Pulse Rate Respiratory Rate Blood Pressure 102/48 L 112/51 L Pulse Oximetry 97 Oxygen Delivery Method 12/19/24 07:34 12/19/24 07:36 Temperature Pulse Rate Respiratory Rate Blood Pressure 116/55 L 107/50 L Pulse Oximetry Oxygen Delivery Method Fraction of Inspired Oxygen 35 SaO2/FiO2 Ratio 277 Oxygen Delivery Method Mechanical Ventilation Oxygen Flow Rate 45 Narrative Exam Narrative: lying in bed, intubated sedated, does open eyes spontaneously , grimaces Quality TeleICU VTE Deep Vein Thrombosis/Pulmonary Embolism Present on Admission: No Stress Ulcer Stress ulcer prophylaxis: yes Assessment & Plan Assessment and plan (1) CLAY (acute kidney injury): Status: Acute (2) Acute and chronic respiratory failure with hypoxia: Status: Acute (3) Diverticulitis of colon with perforation: Status: Acute Assessment & Plan narrative: vent/sedation bundle daily SBT/SAT will add diluadid PRN today to help manage pain control while on SAT Can switch to precedex gtt from propofol, may facilitiate awakening with less anxiety only on 35% fio2, so d/w RT- if able to pass SBT we can hopefully extubated map goal >65 still on pressor repeating H&H this am, may need another unit of blood continue hydration- consider albumin bolus this am if does not meet criteria for blood transfusion Does have CLAY, trend renal function monitor I/0, avoid nephrotoxins NPO- surgical team managing when ok to restart feeds trend labs empirc zosyn, wbc down trending f/u cx dvt ppx gi ppx BG in goal Time-Based Coding :: 32 minutes spent with patient and on the chart (including review of chart, obtaining history, exam, reviewing outside data, placing orders, documenting exam and treatment plan, and counseling patient) on 12/19/24].
[2024-12-19 09:52] LABS: Hematocrit 24.4 % (41-53); Hemoglobin 8.1 g/dL (13.5-17.5); Mean Corpuscular Hemoglobin 28.2 PG (26-34); Mean Corpuscular Volume 85.2 fL (80-100); Platelet Count 183 X10^3/uL (150-400); Red Blood Cell Count 2.86 X10^6/uL (4.5-5.9); Red Cell Distribution Width 16.2 % (11.6-14.8); White Blood Cell Count 14.2 X10^3/uL (4.5-11.0)
[2024-12-19 09:53] LABS: Add Manual Diff / Slide Review YES
[2024-12-19 10:10] LABS: Alanine Aminotransferase 14 IU/L (<50); Albumin 2.2 g/dL (3.5-5.0); Albumin Globulin Ratio 0.8 (1.0-2.8); Alkaline Phosphatase 54 U/L (38-126); Aspartate Aminotransferase 38 IU/L (17-59); BUN Creatinine Ratio 24.2 (6-22); Bilirubin Total 0.4 mg/dL (0.2-1.3); Blood Urea Nitrogen 55 mg/dL (9-20); Calcium 6.5 mg/dL (8.4-10.2); Carbon Dioxide 19 mmol/L (22-32); Chloride 108 mmol/L (98-107); Estimated Glomerular Filt Rate 31 mL/min (>60); Globulin 2.7 g/dL (1.7-4.1); Glucose 108 mg/dL (70-99); HEMOLYSIS < 15 (0-50); Magnesium 2.4 mg/dL (1.6-2.3); Phosphorous 4.1 mg/dL (2.3-3.7); Potassium 3.9 mmol/L (3.4-5.1); Sodium 135 mmol/L (137-145); Total Protein 4.9 g/dL (6.3-8.2)
--- NOTE | 2024-12-19 10:13 | DIET.CONS ---
Dietary Consultation Note Admission Date: 12/13/2024 19:49 Assessment: Consulted for NPO on vent. Pt post op from Vahid's procedure for perforated diverticulitis. Per surgery note today, pt's GI function has not returned, will await return of GI function and if delayed will consider trophic feeds and TPN. Per rounds, SBT today. Tracheostomy may be needed/transfer. Pt's last PO intake recorded on 12/16. Pt on day 3 NPO. Ht: 175.26 cm Wt: 79.8 kg BMI: 26.0 UBW: 74.843 kg on 09/28/24, 79.152 kg on 08/10/24 (-6% weight loss in 6 months, non-severe), between 72-74 kg in 2023 Last BM: 12/17/24 (12/17/24 18:00) MNA: 8 Matthew Score: 13 Diet: 12/17/24 17:57 NPO Diet Diet Modifications: NPO Type: Strict Labs: RBC 2.86 X10^6/uL (4.5-5.9) L 12/19/24 09:43 Hgb 8.1 g/dL (13.5-17.5) L 12/19/24 09:43 Hct 24.4 % (41-53) L 12/19/24 09:43 Creatinine 2.27 mg/dL (0.66-1.25) H 12/19/24 09:43 Lactate 1.0 mmol/L (0.7-2.1) 12/18/24 19:30 NT-Pro-B Natriuret Pep 153 pg/mL (<125) H 12/13/24 20:31 Nutrition Diagnosis: Inadequate oral intake r/t altered GI function aeb pt post op and awaiting return of bowel function, on day 3 NPO Interventions: -Per surgery note, if GI function return is delayed, will consider trophic feeds + TPN EER: [id number] kcals (25 kcals per kg per ICU) 90 g protein (1.2 g kg per kg per ICU) Monitoring/Evaluations: following closely Electronically Signed by: Alyssa Srinivasan 12/19/24 10:13 Clinical Dietitian [address] [address]
[2024-12-19 10:17] LABS: Neutrophils Absolute Manual 11218 /uL (3000-5900); Total Cells Counted 100
[2024-12-19 10:19] LABS: Anisocytosis 1+; Hypochromasia 1+
[2024-12-19] MEDS: NOREPINEPHRINE BITARTRATE/D5W 4 MG/250 ML PLAST..BAG 13.875 MG IV (10:48)
[2024-12-19] MEDS: diazePAM 10 MG/2 ML SYRINGE 5 MG IV ×2 (10:57→20:45)
[2024-12-19] MEDS: HYDROMORPHONE 2 MG INJ IV ×2 (10:58→16:05)
--- NOTE | 2024-12-19 11:30 | CM.DPC ---
DCP Cont: Per MD, Surgeon, and Tele Annual Giving Director, pt remains intubated and sedated but weaning medications towards possible breathing trial today to see if pt can be successfully extubated but remains high risk for need of Trach pending progress and needs. Pt also given a unit of blood and having urine output and monitoring closely due to CLAY. New colostomy from emergent surgery this weekend and awaiting GI function and possible need for enteral feeding pending progress of GI system. signal tower operator consult ordered placed and SW called [facility] and they confirm they are aware of pt and will let their RN team know for this week. Family has been bedside. SW received a call from pt's JENNIFER CM October ([phone]) and updated her on pt's status and faxed updated clinicals to review. October will follow closely towards determining needs and coordinating JENNIFER CG through [facility] in case pt makes good improvements after extubation for home. Plan: SW to follow closely for pt progress and needs to determine hospital transfer vs SNF vs home with JENNIFER and Julia ABREU. GILDA Gutierrez
--- NOTE | 2024-12-19 11:57 | OT.IPNOTE ---
Spoke with pt's nurse Bhavna, pt has had a change in status since admission and is currently ventilated. Per nsg, pt is not appropriate for skilled OT services. OT unable to discharge/complete order so communicated in worklist.
--- NOTE | 2024-12-19 14:08 | PM.PN.1 ---
Subjective Subjective Interval history: Summary: The patient was admitted with fever and cough on December 13. He has a history of severe COPD and was recently treated for diverticulitis. Initial chest imaging indicated a possible new infiltrate, abdomen CT indicated colitis of the transverse colon. He had recently been treated with IV Zosyn for 14 days for diverticulitis in his snf facility. He had no diarrhea. Hospital course: 12/14: IV antibiotics for possible pneumonia and complaints of right-sided abdomen pain. A CTA of the chest and abdomen was suggestive of colitis versus diverticulitis in the mid transverse colon. There were persistent mild inflammatory changes in the descending and sigmoid colon. 12/15: Breathing is improved, he did develop abdominal distention and notes a bowel movement the previous evening. He was also belching. Simethicone was added. 12/16: Breathing less of a concern and there is more abdominal pain. The pain was accompanied with abdominal distention. A KUB was obtained and revealed moderate constipation and no gross free air. WBC was elevated at 18.5, afebrile. 12/17: Less abdominal pain, no fevers. The abdomen was persistently distended. This prompted a CT of the abdomen and pelvis which revealed colonic perforation, and pneumoperitoneum as well as evidence of more significant diverticulitis in the sigmoid and descending colon. The patient was informed of the situation and I discussed the risks and benefits of emergent surgery with the patient and his family. General surgery was consulted and ultimately he did go to the OR for a sigmoid colectomy with an end descending colostomy. The patient required pressors in the OR but did well with regards to being ventilated. Returned to the ICU with a central line and A-line in place and remained relatively stable. 12/18: He was on 2 pressors overnight, he was evidence of acute kidney injury but good urine output with 600 mL of urine overnight. FiO2 on the ventilator is 0.40. Tele-radiation engineer was consulted at 17:00. 12/19: Now only on 1 pressor, improving in this regard. Cr still rising slightly but good urine output. failed spontaneous breathing trial this afternoon. Overnight given 1U PRBC for Hg of 7 with improvement to 8.1. S: Narrative not obtainable, intubated. Exam Vital Signs (past 8 hours): - 12/19/24 07:00 12/19/24 07:00 12/19/24 07:15 Pulse Rate 70 70 Respiratory Rate 18 18 Blood Pressure 108/51 L 109/51 L Pulse Oximetry 98 98 Oxygen Delivery Method 12/19/24 07:30 12/19/24 07:34 12/19/24 07:36 Pulse Rate 71 Respiratory Rate 18 Blood Pressure 110/51 L 116/55 L 107/50 L Pulse Oximetry 98 Oxygen Delivery Method 12/19/24 07:45 12/19/24 08:00 12/19/24 08:00 Pulse Rate 71 70 Respiratory Rate 18 18 Blood Pressure 111/52 L 106/50 L Pulse Oximetry 98 98 Oxygen Delivery Method Mechanical Ventilation 12/19/24 08:15 12/19/24 08:30 12/19/24 08:45 Pulse Rate 70 72 72 Respiratory Rate 18 18 18 Blood Pressure 109/51 L 107/49 L 108/49 L Pulse Oximetry 98 98 98 Oxygen Delivery Method 12/19/24 09:00 12/19/24 09:15 12/19/24 09:30 Pulse Rate 79 86 79 Respiratory Rate 18 18 18 Blood Pressure 119/53 L 104/49 L 115/51 L Pulse Oximetry 96 94 96 Oxygen Delivery Method 12/19/24 09:45 12/19/24 10:00 12/19/24 10:15 Pulse Rate 76 74 72 Respiratory Rate 18 18 18 Blood Pressure 107/48 L 107/49 L 107/50 L Pulse Oximetry 97 97 97 Oxygen Delivery Method 12/19/24 10:30 12/19/24 10:45 12/19/24 11:00 Pulse Rate 72 71 71 Respiratory Rate 18 18 18 Blood Pressure 108/50 L 105/49 L 109/51 L Pulse Oximetry 97 98 98 Oxygen Delivery Method 12/19/24 11:15 12/19/24 11:30 12/19/24 11:45 Pulse Rate 68 71 88 Respiratory Rate 18 18 18 Blood Pressure 103/50 L 110/52 L 133/56 L Pulse Oximetry 98 98 96 Oxygen Delivery Method 12/19/24 12:00 Pulse Rate Respiratory Rate Blood Pressure Pulse Oximetry Oxygen Delivery Method Mechanical Ventilation Fraction of Inspired Oxygen 35 SaO2/FiO2 Ratio 277 Oxygen Delivery Method Mechanical Ventilation Oxygen Flow Rate 45 Narrative Exam Narrative: Patient is sedated Patient is on the ventilator, OG tube in place. ?Vaughn catheter in place. There is a right IJ central line as well as a right wrist a line Lungs are clear. Heart is regular. Abdomen is mildly distended, unable to assess tenderness but no grimacing noted during exam. Extremities are free of edema. Skin is free of rash or lesions. Joints are not swollen or deformed. Objective Labs 12/19/24 09:43 12/19/24 09:43 Labs: Laboratory Results - last 24 hr 12/17/24 12/18/24 12/18/24 15:15 18:08 19:30 WBC 17.5 H RBC 2.71 L Hgb 7.3 L Hct 23.2 L MCV 85.4 MCH 27.0 MCHC 31.6 RDW 17.1 H Plt Count 219 Neut % (Auto) Lymph % (Auto) [place] % (Auto) Eos % (Auto) Baso % (Auto) Neut # (Auto) Lymph # (Auto) [place] # (Auto) Eos # (Auto) Baso # (Auto) Total Counted Seg Neutrophils % Band Neutrophils % Lymphocytes % (Manual) Monocytes % (Manual) Neutrophils # (Manual) RBC Morphology Hypochromasia Anisocytosis PT 10.8 INR 1.0 ABG Sample Site Arterial line ABG pH 7.38 ABG pCO2 38.5 ABG pO2 106 H ABG HCO3 23 ABG Total CO2 22 L ABG O2 Saturation 98 ABG Base Excess -1.9 Chau Test N/a Sodium 134 L Potassium 3.9 Chloride 108 H Carbon Dioxide 20 L BUN 59 H Creatinine 2.21 H Estimated GFR 32 L BUN/Creatinine Ratio 26.7 H Glucose 129 H Lactate 1.0 Calcium 6.8 L Phosphorus Magnesium Total Bilirubin 0.3 AST 40 ALT 16 Alkaline Phosphatase 48 Total Protein 5.0 L Albumin 2.2 L Globulin 2.8 Albumin/Globulin Ratio 0.8 L Blood Type B Positive Antibody Screen Negative Crossmatch See Detail 12/19/24 12/19/24 01:00 09:43 WBC 15.2 H 14.2 H RBC 2.57 L 2.86 L Hgb 7.0 L 8.1 L Hct 21.7 L 24.4 L MCV 84.5 85.2 MCH 27.3 28.2 MCHC 32.3 33.0 RDW 16.7 H 16.2 H Plt Count 199 183 Neut % (Auto) 87.1 H Not Reportable Lymph % (Auto) 3.7 L Not Reportable [place] % (Auto) 8.9 Not Reportable Eos % (Auto) 0.0 L Not Reportable Baso % (Auto) 0.3 Not Reportable Neut # (Auto) 88220 H Lymph # (Auto) 600 L Not Reportable [place] # (Auto) 1300 H Not Reportable Eos # (Auto) 0 Baso # (Auto) 0 Not Reportable Total Counted 100 Seg Neutrophils % 76.0 H Band Neutrophils % 3.0 Lymphocytes % (Manual) 14.0 L Monocytes % (Manual) 7.0 Neutrophils # (Manual) 57075 H RBC Morphology See below Hypochromasia 1+ H Anisocytosis 1+ H PT INR ABG Sample Site ABG pH ABG pCO2 ABG pO2 ABG HCO3 ABG Total CO2 ABG O2 Saturation ABG Base Excess Chau Test Sodium 135 L Potassium 3.9 Chloride 108 H Carbon Dioxide 19 L BUN 55 H Creatinine 2.27 H Estimated GFR 31 L BUN/Creatinine Ratio 24.2 H Glucose 108 H Lactate Calcium 6.5 L Phosphorus 4.1 H Magnesium 2.4 H Total Bilirubin 0.4 AST 38 ALT 14 Alkaline Phosphatase 54 Total Protein 4.9 L Albumin 2.2 L Globulin 2.7 Albumin/Globulin Ratio 0.8 L Blood Type Antibody Screen Crossmatch [facility] Medical History Lung nodule seen on imaging study History of tobacco abuse Fatigue Ventricular tachycardia (paroxysmal) Anemia Palpitations GERD with stricture HTN (hypertension) Insomnia (~2015) Hyperlipidemia (~2015) Anxiety (~2015) COPD (chronic obstructive pulmonary disease) (~2013) Asthma (Unknown) TIA (transient ischemic attack) (05/2014) Hematuria (~2014) Surgical History No pertinent past surgical history Family History Mother Age: 86 Hypertension Sister Age: 69 Cancer Social History household members: none Smoking Status: Former smoker Tobacco: How many years used: 47 quit status: considering quitting second hand exposure: No alcohol intake: former substance use type: does not use Assessment & Plan Assessment & Plan narrative: 1. Perforated viscus, new status post sigmoid colectomy and colostomy. 2. Descending colon and sigmoid diverticulitis, active. 3. Peritonitis, active. 4. Septic shock with CLAY, acute respiratory failure with hypoxia, 5. COPD 6. Possible new pneumonia time of admission, active. 7. Acute blood loss anemia due to #1 Plan: -continue IV antibiotics with zosyn. Cultures negative thus far this admission. Sputum cultures ordered if there are enough secretions. -continue IV fluids, saline. S/p 1 U PRBC overnight 12/18-12/19. H/h responded appropriately this morning. -discussed with general surgeon today, surgically patient is doing well thus far after above operation. -continue norepinephrine with continued weaning with MAP goal of 65. Weaned from Simon today 12/19. -monitor urine output renal function. Cr slowly rising. No indications for dailysis currently but low threshold for transfer. -continue attempts at sedation vacations and breathing trials, failed 12/19. With severe baseline COPD it may be difficult to wean. If unable to extubate consider transfer for higher level of care. -given frequent COPD admissions with need for steroids, will check AM cortisol level, if worsens with regard to pressor needs consider stress dose steroid today/overnight. -GI prophylaxis in place. -DVT prophylaxis in place. Critical care time spent 45 minutes. Dispo: remains ICU, likely to remain intubated for several more days at minimum, possible transfer as discussed above in the coming days if unable to extubate here. Time-Based Coding :: [TOTAL MINUTES] spent with patient and on the chart (including review of chart, obtaining history, exam, reviewing outside data, placing orders, documenting exam and treatment plan, and counseling patient) on [DATE]. Quality VTE Deep Vein Thrombosis/Pulmonary Embolism Present on Admission: No
[2024-12-19] MEDS: SODIUM CHLORIDE 0.9% 1,000 ML 125 ML IV (15:36)
[2024-12-19] MEDS: dexmedeTOMIDine in 0.9 % NaCL 400 MCG/100 ML PLAST..BAG IV (16:03)
[2024-12-19] MEDS: propofoL 1,000 MG/100 ML VIAL 6.654 MG IV (17:14)
--- NOTE | 2024-12-19 18:00 | DI.RAD.S_ITS ---
PROCEDURE: XR CHEST 1V INDICATIONS: Intubated TECHNIQUE: One view of the chest was acquired. COMPARISON: [facility], CR, XR CHEST 1V, 12/18/2024, 18:05. FINDINGS: Heart, mediastinum and pulmonary vascular: Heart is normal in size and configuration. Lines and tubes remain in stable satisfactory position since yesterday's exam. Mediastinum is unremarkable. Pulmonary vascular is normal. Lungs: 3.2 cm spiculated mass in the right upper lobe again seen. This has, presumably, been evaluated for malignancy. COPD changes seen as before. Mild airspace disease developing in the right base that possible infiltrate Pleural spaces: Normal-no effusions or pneumothorax. Bones and soft tissues: Normal IMPRESSION: Possible infiltrate developing in the right lung base. 3.2 cm spiculated mass in the right lung apex suspicious for malignancy. Presumably, this has been previously evaluated with CT Dictated by: Nicko Arenas M.D. on 12/20/2024 at 11:51 Approved by: Nicko Arenas M.D. on 12/20/2024 at 11:54
--- NOTE | 2024-12-19 18:26 | PC.NURSE ---
Day Shift Note Patient sedated on fentanyl and propofol gtts, RASS -2. SAT done after administration of Dilaudid for pain control and Valium, able to follow commands and able to shake head yes or no, not tracking consistently with eyes. SBT attempted by RT but pt immediately desatted to the low 80s and became tachypneic and anxious and was placed back to ventilator mode by RT. During multidisciplinary rounds with tele groundhand Dr. Khanna, order received for precedex to facilitate weaning from ventilator. Levophed continues to keep MAP greater than 65. Dr. Silver assessed pt this morning and reviewed stoma, ordered wound care for wound vac placement. Wound care clinic notified and will follow up tomorrow. Wound vac placed to midline incision and is at 125 mmHG low cont suction, pt tolerated well. Vaughn catheter in place draining clear yellow urine. Bilateral soft wrist restraints in place, pt does impulsively reach for ET tube and lines. Family at bedside.
[2024-12-19] MEDS: fentaNYL 1,000 MCG in DEXTROSE 5% IN WATER 230 ML 18.484 MCG IV (18:49)
[2024-12-19] MEDS: ALBUTEROL/IPRATROPIUM 3 ML AMPUL INH ×2 (19:26→23:45)
[2024-12-19] MEDS: NOREPINEPHRINE BITARTRATE/D5W 4 MG/250 ML PLAST..BAG 20.813 MG IV (23:01)
[2024-12-20] VITALS (85 sets, daily range): BP systolic 91–163; BP diastolic 42–70; PULSE 68–124; RESP 0–38; TEMP 37.2; O2SAT 90–97
[2024-12-20] MEDS: CHLORHEXIDINE GLUCONATE 15 ML CUP PO ×2 (00:11→06:19)
[2024-12-20] MEDS: dexmedeTOMIDine in 0.9 % NaCL 400 MCG/100 ML PLAST..BAG 7.98 MCG IV (03:14)
[2024-12-20] MEDS: ALBUTEROL/IPRATROPIUM 3 ML AMPUL INH ×5 (03:58→18:12)
[2024-12-20] MEDS: PIPERACILLIN/TAZO 4.5 GM in SODIUM CHLORIDE 0.9% 100 ML IV ×3 (04:48→20:02)
[2024-12-20] MEDS: diazePAM 10 MG/2 ML SYRINGE 5 MG IV ×2 (04:48→08:48)
[2024-12-20] MEDS: HYDROMORPHONE 2 MG INJ IV ×2 (04:48→08:48)
[2024-12-20] MEDS: propofoL 1,000 MG/100 ML VIAL 6.654 MG IV (05:00)
[2024-12-20 05:15] LABS: Alanine Aminotransferase 12 IU/L (<50); Albumin 2.2 g/dL (3.5-5.0); Albumin Globulin Ratio 0.8 (1.0-2.8); Alkaline Phosphatase 56 U/L (38-126); Aspartate Aminotransferase 39 IU/L (17-59); BUN Creatinine Ratio 24.8 (6-22); Bilirubin Total 0.3 mg/dL (0.2-1.3); Blood Urea Nitrogen 54 mg/dL (9-20); Carbon Dioxide 18 mmol/L (22-32); Chloride 109 mmol/L (98-107); Estimated Glomerular Filt Rate 33 mL/min (>60); Globulin 2.9 g/dL (1.7-4.1); Glucose 115 mg/dL (70-99); HEMOLYSIS < 15 (0-50); Hematocrit 25.6 % (41-53); Hemoglobin 8.3 g/dL (13.5-17.5); Magnesium 2.3 mg/dL (1.6-2.3); Mean Corpuscular HGB Conc 32.6 % (30-36); Mean Corpuscular Hemoglobin 27.7 PG (26-34); Mean Corpuscular Volume 84.8 fL (80-100); Phosphorous 4.5 mg/dL (2.3-3.7); Platelet Count 197 X10^3/uL (150-400); Potassium 3.8 mmol/L (3.4-5.1); Red Blood Cell Count 3.01 X10^6/uL (4.5-5.9); Red Cell Distribution Width 16.5 % (11.6-14.8); Sodium 134 mmol/L (137-145); Total Protein 5.1 g/dL (6.3-8.2); White Blood Cell Count 20.3 X10^3/uL (4.5-11.0)
[2024-12-20 05:26] LABS: Add Manual Diff / Slide Review YES
[2024-12-20 05:59] LABS: Calcium 6.4 mg/dL (8.4-10.2)
[2024-12-20 06:17] LABS: Neutrophils Absolute Manual 17661 /uL (3000-5900); Total Cells Counted 100
[2024-12-20 06:18] LABS: Anisocytosis 1+
--- NOTE | 2024-12-20 07:06 | PC.NURSE ---
pt remained intubated and sedated overnight, startles with stimulation and reaches for ETT, follows some simple commands at times, anxious/panics at other times, bilat soft wrist restraints maintained for pt safety, sedation/pressors weaned as tolerated, abd wound vac intact with scant bloody drainage, colostomy stoma warm pink with small amt liquid brown output, turned q2h, meds and labs as ordered, care ongoing
[2024-12-20] MEDS: HEPARIN 5,000 UNIT/ML VIAL 5000 UNIT SUBCUT ×3 (08:12→22:01)
[2024-12-20] MEDS: PANTOPRAZOLE 40 MG VIAL IV (08:12)
[2024-12-20] MEDS: fentaNYL 1,000 MCG in DEXTROSE 5% IN WATER 230 ML 18.484 MCG IV (08:13)
[2024-12-20] MEDS: SODIUM CHLORIDE 0.9% 1,000 ML 50 ML IV (08:47)
--- NOTE | 2024-12-20 09:10 | PM.PN.IH.1 ---
Subjective Subjective Date Patient Seen: 12/20/24 Time Patient Seen: 09:00 Interval history: Weaning trial failed yesterday. Patient remains ventilated. He has been hemodynamically stable. Exam Vital Signs (past 8 hours): - 12/20/24 01:30 12/20/24 01:30 12/20/24 02:00 Temperature 98.9 F Pulse Rate 76 Respiratory Rate 18 Blood Pressure 102/47 L Pulse Oximetry 96 94 Oxygen Delivery Method Fraction of Inspired Oxygen 12/20/24 02:00 12/20/24 02:00 12/20/24 02:15 Temperature Pulse Rate 74 Respiratory Rate 18 Blood Pressure 107/47 L 100/45 L Pulse Oximetry 97 Oxygen Delivery Method Fraction of Inspired Oxygen 12/20/24 02:30 12/20/24 02:30 12/20/24 02:45 Temperature Pulse Rate 72 Respiratory Rate 18 Blood Pressure 106/47 L 108/47 L Pulse Oximetry 97 Oxygen Delivery Method Fraction of Inspired Oxygen 12/20/24 03:00 12/20/24 03:00 12/20/24 03:30 Temperature Pulse Rate 71 Respiratory Rate 18 Blood Pressure 108/48 L 108/49 L Pulse Oximetry 97 Oxygen Delivery Method Fraction of Inspired Oxygen 12/20/24 03:30 12/20/24 03:45 12/20/24 03:59 Temperature Pulse Rate 70 70 Respiratory Rate 18 18 Blood Pressure 107/48 L Pulse Oximetry 97 97 Oxygen Delivery Method Mechanical Ventilation Fraction of Inspired Oxygen 12/20/24 04:00 12/20/24 04:00 12/20/24 04:00 Temperature Pulse Rate Respiratory Rate Blood Pressure 98/45 L Pulse Oximetry 96 Oxygen Delivery Method Mechanical Ventilation Fraction of Inspired Oxygen 12/20/24 04:00 12/20/24 04:15 12/20/24 04:30 Temperature Pulse Rate 70 Respiratory Rate 18 Blood Pressure 105/46 L 111/47 L Pulse Oximetry 97 Oxygen Delivery Method Fraction of Inspired Oxygen 12/20/24 04:30 12/20/24 04:30 12/20/24 04:45 Temperature Pulse Rate 77 Respiratory Rate 18 Blood Pressure 111/47 L 111/47 L Pulse Oximetry 96 Oxygen Delivery Method Fraction of Inspired Oxygen 12/20/24 05:00 12/20/24 05:00 12/20/24 05:15 Temperature Pulse Rate 77 Respiratory Rate 18 Blood Pressure 99/44 L 111/50 L Pulse Oximetry 96 Oxygen Delivery Method Fraction of Inspired Oxygen 12/20/24 05:30 12/20/24 05:30 12/20/24 05:45 Temperature Pulse Rate 77 Respiratory Rate 18 Blood Pressure 120/48 L 118/48 L Pulse Oximetry 96 Oxygen Delivery Method Fraction of Inspired Oxygen 12/20/24 06:00 12/20/24 06:00 12/20/24 06:00 Temperature 99 F Pulse Rate 74 Respiratory Rate 18 Blood Pressure 112/50 L Pulse Oximetry 97 97 Oxygen Delivery Method Fraction of Inspired Oxygen 12/20/24 06:15 12/20/24 06:24 12/20/24 06:25 Temperature Pulse Rate Respiratory Rate Blood Pressure 122/50 L 127/55 L 110/51 L Pulse Oximetry Oxygen Delivery Method Fraction of Inspired Oxygen 12/20/24 06:30 12/20/24 06:45 12/20/24 07:00 Temperature Pulse Rate 72 71 Respiratory Rate 18 18 Blood Pressure 121/50 L Pulse Oximetry 97 97 Oxygen Delivery Method Fraction of Inspired Oxygen 12/20/24 07:30 12/20/24 07:56 12/20/24 08:00 Temperature Pulse Rate 69 72 73 Respiratory Rate 18 18 18 Blood Pressure 97/43 L Pulse Oximetry 97 97 97 Oxygen Delivery Method Mechanical Ventilation Fraction of Inspired Oxygen 30 12/20/24 08:30 12/20/24 09:00 Temperature Pulse Rate 74 73 Respiratory Rate 18 18 Blood Pressure 111/50 L Pulse Oximetry 97 97 Oxygen Delivery Method Fraction of Inspired Oxygen Fraction of Inspired Oxygen 30 SaO2/FiO2 Ratio 323 Oxygen Delivery Method Mechanical Ventilation Oxygen Flow Rate 45 Narrative Exam Narrative: Lungs clear to auscultation. Heart has a regular rate and rhythm with no murmur or gallop. He is in normal sinus. Abdomen is mildly distended. Bowel sounds are present. Ostomy is viable. There is a small amount of stool in the bag but no gas. Wound VAC has been applied to the midline Objective Labs 12/20/24 04:55 12/20/24 04:55 Labs: Laboratory Results - last 24 hr 12/19/24 12/20/24 09:43 04:55 WBC 14.2 H 20.3 H RBC 2.86 L 3.01 L Hgb 8.1 L 8.3 L Hct 24.4 L 25.6 L MCV 85.2 84.8 MCH 28.2 27.7 MCHC 33.0 32.6 RDW 16.2 H 16.5 H Plt Count 183 197 Neut % (Auto) Not Reportable Not Reportable Lymph % (Auto) Not Reportable Not Reportable Ralls % (Auto) Not Reportable Not Reportable Eos % (Auto) Not Reportable Not Reportable Baso % (Auto) Not Reportable Not Reportable Lymph # (Auto) Not Reportable Not Reportable Ralls # (Auto) Not Reportable Not Reportable Baso # (Auto) Not Reportable Not Reportable Total Counted 100 100 Seg Neutrophils % 76.0 H 84.0 H Band Neutrophils % 3.0 3.0 Lymphocytes % (Manual) 14.0 L 4.0 L Monocytes % (Manual) 7.0 9.0 Neutrophils # (Manual) 94454 H 75608 H RBC Morphology See below See below Hypochromasia 1+ H Anisocytosis 1+ H 1+ H Sodium 135 L 134 L Potassium 3.9 3.8 Chloride 108 H 109 H Carbon Dioxide 19 L 18 L BUN 55 H 54 H Creatinine 2.27 H 2.18 H Estimated GFR 31 L 33 L BUN/Creatinine Ratio 24.2 H 24.8 H Glucose 108 H 115 H Calcium 6.5 L 6.4 L* Phosphorus 4.1 H 4.5 H Magnesium 2.4 H 2.3 Total Bilirubin 0.4 0.3 AST 38 39 ALT 14 12 Alkaline Phosphatase 54 56 Total Protein 4.9 L 5.1 L Albumin 2.2 L 2.2 L Globulin 2.7 2.9 Albumin/Globulin Ratio 0.8 L 0.8 L Cortisol AM Sample 33.0 H [facility] Medical History Lung nodule seen on imaging study History of tobacco abuse Fatigue Ventricular tachycardia (paroxysmal) Anemia Palpitations GERD with stricture HTN (hypertension) Insomnia (~2015) Hyperlipidemia (~2015) Anxiety (~2015) COPD (chronic obstructive pulmonary disease) (~2013) Asthma (Unknown) TIA (transient ischemic attack) (05/2014) Hematuria (~2014) Surgical History No pertinent past surgical history Family History Mother Age: 86 Hypertension Sister Age: 69 Cancer Social History household members: none Smoking Status: Former smoker Tobacco: How many years used: 47 quit status: considering quitting second hand exposure: No alcohol intake: former substance use type: does not use Assessment & Plan Assessment and plan (1) Diverticulitis of colon with perforation: Status: Acute Plan Postop day 3 from sigmoid colectomy with end descending colostomy. Hemodynamically stable still on low-dose norepinephrine. Family declines consideration of tracheostomy. They indicate that the patient's wishes were for no more than 5 days of ventilator support. They request comfort care beyond that point. Continue efforts at weaning from the ventilator. Trophic enteral feeds are reasonable in this timeframe per orogastric tube at rates not to exceed 10 mL/hr. Time-Based Coding :: [TOTAL MINUTES] spent with patient and on the chart (including review of chart, obtaining history, exam, reviewing outside data, placing orders, documenting exam and treatment plan, and counseling patient) on [DATE]. Quality VTE Deep Vein Thrombosis/Pulmonary Embolism Present on Admission: No PROFEE Childcare Teacher Document charge(s): No
--- NOTE | 2024-12-20 11:06 | DIET.CONS ---
Addendum entered by Alyssa Srinivasan 12/20/24 17:23: Pt extubated. Tube feed ordered cancelled. Original Note: Dietary Consultation Note Admission Date: 12/13/2024 19:49 Assessment: Consulted by surgeon to begin enteral feeds. Per team rounds, pt will attempt to be extubated again today. If extubation fails, will start trophic enteral feeds this evening. Ht: 175.26 cm Wt: 95 kg (previous weight of 74-79 kg used for EER calculations) BMI: 24.0 Last BM: 12/17/24 (12/17/24 18:00) MNA: 8 Matthew Score: 14 Diet: 12/17/24 17:57 NPO Diet Diet Modifications: NPO Type: Strict Nutrition Percent Meal Consumed 0% 12/20/24 10:00 Percent Meal Consumed 0% 12/20/24 08:27 Percent Meal Consumed 0% 12/20/24 08:00 Labs: RBC 3.01 X10^6/uL (4.5-5.9) L 12/20/24 04:55 Hgb 8.3 g/dL (13.5-17.5) L 12/20/24 04:55 Hct 25.6 % (41-53) L 12/20/24 04:55 Creatinine 2.18 mg/dL (0.66-1.25) H 12/20/24 04:55 Lactate 1.0 mmol/L (0.7-2.1) 12/18/24 19:30 NT-Pro-B Natriuret Pep 153 pg/mL (<125) H 12/13/24 20:31 Nutrition Diagnosis: Inadequate oral intake r/t mechanical ventilation and altered GI function/structure aeb pt status NPO Interventions: If unable to extubate: -Continuous enteral nutrition of Pivot 1.5 at 10 mL/hr. Flush water 60 mL Q6H. Formula free water plus flushes provide additional 420 mL fluid. Pt already meeting fluid needs via IV. Will assess GI tolerance and follow up with nutrition plan to meet pt's estimated energy needs based on this. EER: 3217-2460 kcals (25 kcals per kg per ICU) 90 g protein (1.2 g kg per kg per ICU) Monitoring/Evaluations: f/u tomorrow, plan of care ongoing Electronically Signed by: Alyssa Srinivasan 12/20/24 11:06 Clinical Dietitian [address] [address]
[2024-12-20] MEDS: FUROSEMIDE 40 MG/4 ML VIAL IV (11:09)
[2024-12-20] MEDS: BUDESONIDE 0.5 MG/2 ML NEB INH ×2 (11:50→18:12)
--- NOTE | 2024-12-20 15:38 | P.TELICUPN_ITS ---
Subjective Subjective IF CAMERA ACTIVATED, patient seen via real-time interactive audiovisual communication: Camera activated Consent obtained for tele-assistant terminal manager care: Yes Patient Location: ICU Provider location (State): [place] Other participants/roles: RN/RT Interval history: Following up on this 64 yo M who is POD 3 from sigmoid colectomy on mechanical ventilation. I saw this pt earlier today; he was on a SAT/SBT on dexmedetomidine 0.2 mcg/kg/hr and tolerating SAT/SBT w/ (+) cuff leak and RSBI in 30s; I ordered Lasix 40 mg IVP x 1 and gave extubation order. Currently, he is on HFNC 50 L/min 35%. Dexmedetomidine is OFF. RT is at bedside and reports such secretions which he cannot expectorate. Duonebs are in place. Current Medications Current Medications Medications: Home Medications ascorbate calcium (vitamin C) 500 mg tablet 500 mg PO DAILY 08/06/23 [History Confirmed 12/13/24] ferrous gluconate 324 mg (38 mg iron) tablet 324 mg PO DAILY #90 tabs 03/28/24 [Rx Confirmed 12/13/24] aluminum-mag hydroxide-simethicone 400 mg-400 mg-40 mg/5 mL oral susp 20 ml PO BID 05/14/24 [History Confirmed 12/13/24] multivitamin with minerals-folic acid 0.4 mg tablet 1 tab PO DAILY 05/14/24 [History Confirmed 12/13/24] nystatin 100,000 unit/mL oral suspension 5 ml PO QID PRN thrush 05/14/24 [History Confirmed 12/13/24] Disabled Parking Permint #1 ea 07/01/24 [Rx Confirmed 12/13/24] mometasone-formoterol HFA 200 mcg-5 mcg/actuation aerosol inhaler (Dulera) 2 puff PO BID #13 grams 07/22/24 [Rx Confirmed 12/13/24] cetirizine 10 mg tablet 10 mg PO BEDTIME allergy/asthma 08/25/24 [History Confirmed 12/13/24] clonazepam 0.5 mg tablet 0.5 mg PO TID #90 tabs 08/25/24 [Rx Confirmed 12/13/24] guaifenesin 100 mg/5 mL oral liquid 200 mg PO Q4H PRN cough 08/25/24 [History Confirmed 12/13/24] mecobalamin (vitamin B12) 1,000 mcg chewable tablet 1,000 mcg PO DAILY 08/25/24 [History Confirmed 12/13/24] nitroglycerin 0.3 mg sublingual tablet 0.3 mg sublingual Q5-15M PRN chest pain #20 tabs 08/25/24 [Rx Confirmed 12/13/24] simvastatin 20 mg tablet 20 mg PO QPM #90 tabs 08/25/24 [Rx Confirmed 12/13/24] albuterol sulfate 2.5 mg/3 mL (0.083 %) solution for nebulization 2.5 mg (3 mL) inhalation QID PRN shortness of breath or wheezing #180 mL 09/09/24 [Rx Confirmed 12/13/24] albuterol sulfate 90 mcg/actuation aerosol inhaler (Ventolin HFA) 1 - 2 puff PO Q4H PRN for wheezing #54 grams 09/09/24 [Rx Confirmed 12/13/24] ipratropium bromide 0.02 % solution for inhalation 2.5 ml inhalation QID PRN shortness of breath or wheezing #150 mL 09/09/24 [Rx Confirmed 12/13/24] montelukast 10 mg tablet 10 mg PO BEDTIME #90 tabs 10/11/24 [Rx Confirmed 12/13/24] hydrocodone 5 mg-acetaminophen 325 mg tablet 2 tab PO Q4H PRN Pain, Severe (7- 10) #20 tabs 10/28/24 [Rx Confirmed 12/13/24] ondansetron 4 mg disintegrating tablet 4 mg PO Q8H PRN nausea and vomiting #14 tabs 10/28/24 [Rx Confirmed 12/13/24] acetaminophen 500 mg tablet 500 mg PO Q6H PRN Pain (Scale Score 1-3) 10/31/24 [History Confirmed 12/13/24] polyethylene glycol 3350 17 gram/dose oral powder 17 g PO DAILY PRN constipation 10/31/24 [History Confirmed 12/13/24] benzonatate 100 mg capsule 100 mg PO BID-TID PRN Cough #270 caps 11/01/24 [Rx Confirmed 12/13/24] prednisone 10 mg tablet See Rx Instructions PO .COMPLEX #76 tabs 11/01/24 [Rx Confirmed 12/13/24] Visit Medications (administered) Generic Name Dose Route Start Last Admin Trade Name Freq PRN Reason Stop Dose Admin Albuterol/Ipratropium 3 ml 12/17/24 21:33 12/19/24 19:26 Albuterol/Ipratropium 3 Ml Ampul INH 3 ml RTQ4HR PRN Administration Shortness Of Breath Albuterol/Ipratropium 3 ml 12/19/24 23:00 12/20/24 11:49 Albuterol/Ipratropium 3 Ml Ampul INH 3 ml RTQ4HR ROBERT Administration Budesonide 0.5 mg 12/20/24 09:40 12/20/24 11:50 Budesonide 0.5 Mg/2 Ml Neb INH 0.5 mg RTBID ROBERT Administration Chlorhexidine Gluconate 15 ml 12/17/24 18:00 12/20/24 12:58 Chlorhexidine Gluconate 15 Ml Cup PO Not Given Q6HR ROBERT Diazepam 5 mg 12/19/24 09:45 12/20/24 08:48 Diazepam 10 Mg/2 Ml Syringe IV 5 mg BID ROBERT Administration Diazepam 5 mg 12/19/24 09:37 12/20/24 04:48 Diazepam 10 Mg/2 Ml Syringe IV 5 mg Q6HR PRN Administration Anxiety Heparin Sodium (Porcine) 5,000 unit 12/17/24 22:00 12/20/24 14:45 Heparin 5,000 Unit/Ml Vial SUBCUT 5,000 unit Q8HR ROBERT Administration Hydromorphone HCl 2 mg 12/19/24 09:38 12/20/24 08:48 Hydromorphone 2 Mg Inj IV 2 mg Q2H PRN Administration Pain, Severe (7-10) Sodium Chloride 1,000 mls @ 50 mls/hr 12/17/24 18:00 12/20/24 08:47 Normal Saline 0.9% IV 50 mls/hr CONT ROBERT Administration Propofol 1,000 mg in 100 mls @ 2.218 mls/hr 12/17/24 18:00 12/20/24 08:50 Diprivan IV 0 mcg/kg/min TITRATE ROBERT 0 mls/hr Protocol Titration 5 MCG/KG/MIN Fentanyl 1,000 mcg/ Dextrose 250 mls @ 12.939 mls/hr 12/17/24 18:00 12/20/24 08:50 IV 0 mcg/kg/hr TITRATE ROBERT 0 mls/hr Protocol Titration 0.7 MCG/KG/HR Phenylephrine HCl 20,000 mcg/ 250 mls @ 27.726 mls/hr 12/17/24 18:15 12/18/24 14:35 Dextrose IV 0 mcg/kg/min TITRATE ROBERT 0 mls/hr Protocol Titration 0.5 MCG/KG/MIN Piperacillin Sod/Tazobactam 100 mls @ 25 mls/hr 12/17/24 21:00 12/20/24 14:00 Sod 4.5 gm/ Sodium Chloride IV 12/22/24 16:59 25 mls/hr Q8H ROBERT Administration NOREPINEPHRINE BITARTRATE/D5W 4 mg in 250 mls @ 27.75 mls/hr 12/18/24 04:29 12/20/24 11:10 Levophed IV 0 mcg/kg/min TITRATE ROBERT 0 mls/hr Protocol Titration 0.1 MCG/KG/MIN Vasopressin 40 unit/ Sodium 102 mls @ 4.5 mls/hr 12/18/24 04:30 12/18/24 04:55 Chloride IV 0 mls/hr CONT ROBERT Infusion dexmedeTOMIDine in 0.9 % NaCL 400 mcg in 100 mls @ 3.99 mls/hr 12/19/24 14:15 12/20/24 11:00 Precedex IV 0 mcg/kg/hr TITRATE ROBERT 0 mls/hr Protocol Titration 0.2 MCG/KG/HR Pantoprazole Sodium 40 mg 12/18/24 09:00 12/20/24 08:12 Pantoprazole 40 Mg Vial IV 40 mg DAILY ROBERT Administration Objective Ventilator Parameters: Ventilator Settings FiO2 30 RT Vent Frequency 18 Ventilator Tidal Volume 500 Exhaled Vt/kg IBW 7.3 Positive End Expiratory 5 Pressure Inspiratory Phase Time 0.90 I:E Ratio 1:2.7 Patient Position HOB >= 30 degrees Labs 12/20/24 04:55 12/20/24 04:55 Labs: Laboratory Results - last 24 hr 12/20/24 04:55 WBC 20.3 H RBC 3.01 L Hgb 8.3 L Hct 25.6 L MCV 84.8 MCH 27.7 MCHC 32.6 RDW 16.5 H Plt Count 197 Neut % (Auto) Not Reportable Lymph % (Auto) Not Reportable [place]es % (Auto) Not Reportable Eos % (Auto) Not Reportable Baso % (Auto) Not Reportable Lymph # (Auto) Not Reportable [place] # (Auto) Not Reportable Baso # (Auto) Not Reportable Total Counted 100 Seg Neutrophils % 84.0 H Band Neutrophils % 3.0 Lymphocytes % (Manual) 4.0 L Monocytes % (Manual) 9.0 Neutrophils # (Manual) 01660 H RBC Morphology See below Anisocytosis 1+ H Sodium 134 L Potassium 3.8 Chloride 109 H Carbon Dioxide 18 L BUN 54 H Creatinine 2.18 H Estimated GFR 33 L BUN/Creatinine Ratio 24.8 H Glucose 115 H Calcium 6.4 L* Phosphorus 4.5 H Magnesium 2.3 Total Bilirubin 0.3 AST 39 ALT 12 Alkaline Phosphatase 56 Total Protein 5.1 L Albumin 2.2 L Globulin 2.9 Albumin/Globulin Ratio 0.8 L Cortisol AM Sample 33.0 H Exam Vital Signs (past 8 hours): - 12/20/24 07:45 12/20/24 07:56 12/20/24 08:00 Pulse Rate 68 72 73 Respiratory Rate 18 18 Blood Pressure 118/51 L 97/43 L Pulse Oximetry 97 97 Oxygen Delivery Method Mechanical Ventilation Fraction of Inspired Oxygen 30 12/20/24 08:00 12/20/24 08:15 12/20/24 08:30 Pulse Rate 74 74 Respiratory Rate 18 Blood Pressure 125/51 L Pulse Oximetry 97 Oxygen Delivery Method Mechanical Ventilation Fraction of Inspired Oxygen 12/20/24 08:30 12/20/24 08:45 12/20/24 09:00 Pulse Rate 74 74 73 Respiratory Rate 18 Blood Pressure 118/50 L 116/50 L 111/50 L Pulse Oximetry 97 Oxygen Delivery Method Fraction of Inspired Oxygen 12/20/24 09:05 12/20/24 09:15 12/20/24 09:30 Pulse Rate 73 73 72 Respiratory Rate 18 Blood Pressure 112/49 L 114/50 L 103/52 L Pulse Oximetry 97 Oxygen Delivery Method Fraction of Inspired Oxygen 12/20/24 09:45 12/20/24 10:00 12/20/24 10:00 Pulse Rate 74 72 72 Respiratory Rate 18 Blood Pressure 116/51 L 115/52 L Pulse Oximetry 97 Oxygen Delivery Method Fraction of Inspired Oxygen 12/20/24 10:15 12/20/24 10:30 12/20/24 10:30 Pulse Rate 104 H 96 H 96 H Respiratory Rate 20 Blood Pressure 142/61 H 127/59 L Pulse Oximetry 91 Oxygen Delivery Method Fraction of Inspired Oxygen 12/20/24 11:00 12/20/24 11:23 12/20/24 11:30 Pulse Rate 94 H 118 H Respiratory Rate 16 22 Blood Pressure 91/43 L Pulse Oximetry 97 94 90 L Oxygen Delivery Method Fraction of Inspired Oxygen 12/20/24 12:00 12/20/24 12:00 12/20/24 12:30 Pulse Rate 108 H 104 H Respiratory Rate 22 18 Blood Pressure 114/50 L Pulse Oximetry 96 96 Oxygen Delivery Method Heated High Flow Fraction of Inspired Oxygen 12/20/24 13:00 12/20/24 13:30 12/20/24 14:00 Pulse Rate 121 H 114 H 111 H Respiratory Rate 22 20 19 Blood Pressure 151/61 H Pulse Oximetry 93 94 95 Oxygen Delivery Method Fraction of Inspired Oxygen 12/20/24 14:30 12/20/24 15:00 Pulse Rate 117 H 113 H Respiratory Rate 21 19 Blood Pressure 132/57 L 158/66 H Pulse Oximetry 94 95 Oxygen Delivery Method Fraction of Inspired Oxygen Fraction of Inspired Oxygen 30 SaO2/FiO2 Ratio 323 Oxygen Delivery Method Heated High Flow Oxygen Flow Rate 45 Const General: comfortable Resp Effort & Inspection: normal respiratory effort Cardio Rate: tachycardic Rhythm: other (atrial fibrillation) Quality TeleICU VTE Deep Vein Thrombosis/Pulmonary Embolism Present on Admission: No Assessment & Plan Assessment & Plan narrative: #On mechanical ventilation w/ COPD hx - extubated today -Continue Duonebs -Add PRN NT suctioning -Mobilize -Delirium prevention --> cancelled diazepam orders; use dexmedetomidine gtt in first 24 hours in post-extubation period -Aim for mildly (-) fluid balance to improve extubation success probability #CLAY-mildly improved -Follow #POD 3 from sigmoid colectomy -As per general surgery -Would stop Zosyn on POD 6 if cultures (-) -Swallow eval when OK w/ surgery #ICU best practices -Stress ulcer prophylaxis --> stopped PPI now that he's extubated -VTE prophylaxis: heparin I spent a total of 35 minutes of aggregate critical care time today on this patient's care; this time excludes all procedural time Time-Based Coding :: [TOTAL MINUTES] spent with patient and on the chart (including review of chart, obtaining history, exam, reviewing outside data, placing orders, documenting exam and treatment plan, and counseling patient) on [DATE].
[2024-12-20] MEDS: FUROSEMIDE 20 MG/2 ML VIAL IV (16:15)
--- NOTE | 2024-12-20 16:47 | PC.NURSE ---
Addendum entered by Bhavna Buck R.N. 12/20/24 18:17: Mepilex dressing removed from buttocks, stage 2 pressure injury appeared moist and macerated under the dressing. Barrier cream zinc applied lightly and pressure offloaded to buttocks. Open to air at this time. Original Note: Day Shift Note Patient sedated on propofol, fentanyl, and precedex gtts this morning on mechanical ventilator. Propofol and fentanyl gtts stopped for SAT. Multidisciplinary rounds done during SAT, precedex decreased to 0.2 mcg/kg/min. Patient following commands, eyes remain slow to track. SBT started at 1008 by RT. Able to wean off levophed during SBT, BP 130s/60s, MAP 70-80s. Pt did well, SpO2 greater than 93%, RR in the 22-29 bpm range. Reviewed SBT results with Dr. Griffith at bedside and order for 40 IV Lasix received and order to extubate received. Pt extubated to heated HFNC at 1115, settings 50L and 35% FiO2, SpO2 mid-90s. OG tube and restraints removed. Pt with weak cough this afternoon, coarse lung sounds with rhonchi, suctioning as able, speech is coarse and slow but able to make needs known. Overall very fatigued. Breathing pattern appears labored but pt and family at bedside report that this is not far from his normal. Call light within reach. Bed alarm on. Wound vac in place to midline incision and colostomy stoma pink and producing some dark brown liquid.
--- NOTE | 2024-12-20 18:56 | P.PN_ITS ---
Subjective Subjective Interval history: Summary: The patient was admitted with fever and cough on December 13. He has a history of severe COPD and was recently treated for diverticulitis. Initial chest imaging indicated a possible new infiltrate, abdomen CT indicated colitis of the transverse colon. He had recently been treated with IV Z[facility] for 14 days for [facility]iculitis [facility]. He had no diarrhea. Hospital course: 12/14: IV antibiotics for possible pneumonia and complaints of right-sided abdomen pain. A CTA of the chest and abdomen was suggestive of colitis versus diverticulitis in the mid transverse colon. There were persistent mild inflammatory changes in the descending and sigmoid colon. 12/15: Breathing is improved, he did develop abdominal distention and notes a bowel movement the previous evening. He was also belching. Simethicone was added. 12/16: Breathing less of a concern and there is more abdominal pain. The pain was accompanied with abdominal distention. A KUB was obtained and revealed moderate constipation and no gross free air. WBC was elevated at 18.5, afebrile. 12/17: Less abdominal pain, no fevers. The abdomen was persistently distended. This prompted a CT of the abdomen and pelvis which revealed colonic perforation, and pneumoperitoneum as well as evidence of more significant diverticulitis in the sigmoid and descending colon. The patient was informed of the situation and I discussed the risks and benefits of emergent surgery with the patient and his family. General surgery was consulted and ultimately he did go to the OR for a sigmoid colectomy with an end descending colostomy. The patient required pressors in the OR but did well with regards to being ventilated. Returned to the ICU with a central line and A-line in place and remained relatively stable. 12/18: He was on 2 pressors overnight, he was evidence of acute kidney injury but good urine output with 600 mL of urine overnight. FiO2 on the ventilator is 0.40. Tele-house wirer helper was consulted at 17:00. 12/19: Now only on 1 pressor, improving in this regard. Cr still rising slightly but good urine output. failed spontaneous breathing trial this afternoon. Overnight given 1U PRBC for Hg of 7 with improvement to 8.1. 12/20: extubated to heated high flow O2 with tele-house wirer helper. S: Narrative not obtainable, intubated this AM Exam Vital Signs (past 8 hours): - 12/20/24 11:00 12/20/24 11:15 12/20/24 11:23 Pulse Rate 94 H Respiratory Rate 16 18 Blood Pressure 91/43 L Pulse Oximetry 97 92 94 Oxygen Delivery Method Oxygen Flow Rate Fraction of Inspired Oxygen 12/20/24 11:30 12/20/24 12:00 12/20/24 12:00 Pulse Rate 118 H 108 H Respiratory Rate 22 22 Blood Pressure 114/50 L Pulse Oximetry 90 L 96 Oxygen Delivery Method Heated High Flow Oxygen Flow Rate Fraction of Inspired Oxygen 12/20/24 12:30 12/20/24 13:00 12/20/24 13:30 Pulse Rate 104 H 121 H 114 H Respiratory Rate 18 22 20 Blood Pressure 151/61 H Pulse Oximetry 96 93 94 Oxygen Delivery Method Oxygen Flow Rate Fraction of Inspired Oxygen 12/20/24 14:00 12/20/24 14:30 12/20/24 15:00 Pulse Rate 111 H 117 H 113 H Respiratory Rate 19 21 19 Blood Pressure 132/57 L 158/66 H Pulse Oximetry 95 94 95 Oxygen Delivery Method Oxygen Flow Rate Fraction of Inspired Oxygen 12/20/24 15:30 12/20/24 15:38 12/20/24 15:41 Pulse Rate 123 H 124 H 118 H Respiratory Rate 22 18 18 Blood Pressure 163/70 H Pulse Oximetry 94 93 94 Oxygen Delivery Method Heated High Flow Oxygen Flow Rate Fraction of Inspired Oxygen 12/20/24 16:00 12/20/24 16:00 12/20/24 16:30 Pulse Rate 121 H 117 H Respiratory Rate 22 20 Blood Pressure Pulse Oximetry 95 95 Oxygen Delivery Method Heated High Flow Oxygen Flow Rate Fraction of Inspired Oxygen 12/20/24 17:00 12/20/24 17:30 12/20/24 18:00 Pulse Rate 115 H 119 H 118 H Respiratory Rate 21 23 21 Blood Pressure 127/55 L 132/46 L Pulse Oximetry 96 94 95 Oxygen Delivery Method Oxygen Flow Rate Fraction of Inspired Oxygen 12/20/24 18:15 Pulse Rate 115 H Respiratory Rate 20 Blood Pressure Pulse Oximetry 95 Oxygen Delivery Method Heated High Flow Oxygen Flow Rate 50 Fraction of Inspired Oxygen 35 Fraction of Inspired Oxygen 35 SaO2/FiO2 Ratio 271 Oxygen Delivery Method Heated High Flow Oxygen Flow Rate 50 Narrative Exam Narrative: Seen prior to extubation later in the day: Patient is sedated Patient is on the ventilator, OG tube in place. ?Vaughn catheter in place. There is a right IJ central line as well as a right wrist a line Lungs are clear. Heart is regular. Abdomen is mildly distended, unable to assess tenderness but no grimacing noted during exam. Extremities are free of edema. Skin is free of rash or lesions. Joints are not swollen or deformed. Objective Labs 12/20/24 04:55 12/20/24 04:55 Labs: Laboratory Results - last 24 hr 12/20/24 04:55 WBC 20.3 H RBC 3.01 L Hgb 8.3 L Hct 25.6 L MCV 84.8 MCH 27.7 MCHC 32.6 RDW 16.5 H Plt Count 197 Neut % (Auto) Not Reportable Lymph % (Auto) Not Reportable [place] % (Auto) Not Reportable Eos % (Auto) Not Reportable Baso % (Auto) Not Reportable Lymph # (Auto) Not Reportable [place] # (Auto) Not Reportable Baso # (Auto) Not Reportable Total Counted 100 Seg Neutrophils % 84.0 H Band Neutrophils % 3.0 Lymphocytes % (Manual) 4.0 L Monocytes % (Manual) 9.0 Neutrophils # (Manual) 90145 H RBC Morphology See below Anisocytosis 1+ H Sodium 134 L Potassium 3.8 Chloride 109 H Carbon Dioxide 18 L BUN 54 H Creatinine 2.18 H Estimated GFR 33 L BUN/Creatinine Ratio 24.8 H Glucose 115 H Calcium 6.4 L* Phosphorus 4.5 H Magnesium 2.3 Total Bilirubin 0.3 AST 39 ALT 12 Alkaline Phosphatase 56 Total Protein 5.1 L Albumin 2.2 L Globulin 2.9 Albumin/Globulin Ratio 0.8 L Cortisol AM Sample 33.0 H [facility] Medical History Lung nodule seen on imaging study History of tobacco abuse Fatigue Ventricular tachycardia (paroxysmal) Anemia Palpitations GERD with stricture HTN (hypertension) Insomnia (~2015) Hyperlipidemia (~2015) Anxiety (~2015) COPD (chronic obstructive pulmonary disease) (~2013) Asthma (Unknown) TIA (transient ischemic attack) (05/2014) Hematuria (~2014) Surgical History No pertinent past surgical history Family History Mother Age: 86 Hypertension Sister Age: 69 Cancer Social History household members: none Smoking Status: Former smoker Tobacco: How many years used: 47 quit status: considering quitting second hand exposure: No alcohol intake: former substance use type: does not use Assessment & Plan Assessment & Plan narrative: 1. Perforated viscus, new status post sigmoid colectomy and colostomy. 2. Descending colon and sigmoid diverticulitis, active. 3. Peritonitis, active. 4. Septic shock with CLAY, acute respiratory failure with hypoxia, 5. COPD 6. Possible new pneumonia time of admission, active. 7. Acute blood loss anemia due to #1 Plan: -continue IV antibiotics with zosyn. Cultures negative thus far this admission. Sputum cultures ordered. Extubated to high flow today, wean O2 as tolerated. -continue IV fluids, saline. S/p 1 U PRBC overnight 12/18-12/19. H/h responded appropriately. -discussed with general surgeon today, surgically patient is doing well thus far after above operation. -continue norepinephrine with continued weaning with MAP goal of 65. Weaned from Simon 12/19. -monitor urine output renal function. Cr now slightly improved today. No indications for dailysis currently but low threshold for transfer. -given frequent COPD admissions with need for steroids, checked AM cortisol level which was above normal. no stress dose steroids indicated. -GI prophylaxis in place. -DVT prophylaxis in place. Critical care time spent 45 minutes. Dispo: remains ICU, extubated 12/20. Time-Based Coding :: [TOTAL MINUTES] spent with patient and on the chart (including review of chart, obtaining history, exam, reviewing outside data, placing orders, documenting exam and treatment plan, and counseling patient) on [DATE]. Quality VTE Deep Vein Thrombosis/Pulmonary Embolism Present on Admission: No
[2024-12-20] MEDS: HYDROMORPHONE 1 MG INJ IV (19:55)
[2024-12-20] MEDS: NOREPINEPHRINE BITARTRATE/D5W 4 MG/250 ML PLAST..BAG 20.813 MG IV (22:00)
[2024-12-21] VITALS (49 sets, daily range): BP systolic 113–137; BP diastolic 49–76; PULSE 95–118; RESP 17–39; TEMP 36.7–36.9; O2SAT 89–99
[2024-12-21] MEDS: HYDROMORPHONE 1 MG INJ IV ×3 (00:50→20:44)
[2024-12-21] MEDS: PIPERACILLIN/TAZO 4.5 GM in SODIUM CHLORIDE 0.9% 100 ML IV (05:23)
[2024-12-21] MEDS: HEPARIN 5,000 UNIT/ML VIAL 5000 UNIT SUBCUT ×3 (05:23→22:37)
[2024-12-21 05:44] LABS: Hematocrit 27.7 % (41-53); Hemoglobin 8.8 g/dL (13.5-17.5); Mean Corpuscular HGB Conc 31.7 % (30-36); Mean Corpuscular Hemoglobin 27.2 PG (26-34); Mean Corpuscular Volume 85.6 fL (80-100); Platelet Count 205 X10^3/uL (150-400); Red Blood Cell Count 3.23 X10^6/uL (4.5-5.9); Red Cell Distribution Width 16.7 % (11.6-14.8)
[2024-12-21 05:46] LABS: Add Manual Diff / Slide Review YES
[2024-12-21 05:47] LABS: White Blood Cell Count 31.9 X10^3/uL (4.5-11.0)
[2024-12-21 06:03] LABS: Alanine Aminotransferase 13 IU/L (<50); Albumin 2.5 g/dL (3.5-5.0); Albumin Globulin Ratio 0.8 (1.0-2.8); Alkaline Phosphatase 72 U/L (38-126); Aspartate Aminotransferase 56 IU/L (17-59); Bilirubin Total 0.5 mg/dL (0.2-1.3); Blood Urea Nitrogen 58 mg/dL (9-20); Calcium 6.8 mg/dL (8.4-10.2); Carbon Dioxide 16 mmol/L (22-32); Chloride 109 mmol/L (98-107); Globulin 3.1 g/dL (1.7-4.1); Glucose 71 mg/dL (70-99); Magnesium 2.5 mg/dL (1.6-2.3); Phosphorous 7.5 mg/dL (2.3-3.7); Potassium 4.2 mmol/L (3.4-5.1); Sodium 139 mmol/L (137-145); Total Protein 5.6 g/dL (6.3-8.2)
[2024-12-21 06:09] LABS: Estimated Glomerular Filt Rate 26 mL/min (>60); HEMOLYSIS < 15 (0-50)
[2024-12-21 06:24] LABS: Neutrophils Absolute Manual 27115 /uL (3000-5900); Total Cells Counted 100
[2024-12-21 06:25] LABS: RBC Morphology Normal Morphology
[2024-12-21] MEDS: ALBUTEROL/IPRATROPIUM 3 ML AMPUL INH ×4 (06:25→18:06)
[2024-12-21] MEDS: BUDESONIDE 0.5 MG/2 ML NEB INH ×2 (06:25→18:06)
--- NOTE | 2024-12-21 06:43 | DI.RAD.S_ITS ---
PROCEDURE: XR KUB INDICATIONS: perforation TECHNIQUE: One view of the abdomen acquired. COMPARISON: [facility], CT, CT ABDOMEN PELVIS W CON, 12/17/2024, 11:11. [facility], CR, XR KUB, 12/16/2024, 10:40. FINDINGS: Surgical changes and devices: None. Bowel: Bowel gas pattern is nonobstructive. CT finding of free air is not definitively seen on the current study, possibly seen in upper abdomen. No significant fecal burden. Soft tissues: No suspicious abdominal calcifications. Visualized solid organ contours appear normal in size. Bones: No suspicious bony lesions. IMPRESSION: Possible free air in upper abdomen better evaluated on CT study. Bowel gas pattern is nonobstructive. Dictated by: Giuseppe Fonseca M.D. on 12/21/2024 at 8:15 Approved by: Giuseppe Fonseca M.D. on 12/21/2024 at 8:23
--- NOTE | 2024-12-21 07:14 | PM.PN.IH.1 ---
Subjective Subjective Date Patient Seen: 12/21/24 Time Patient Seen: 07:00 Interval history: No complaints. Pain control adequate. Exam Vital Signs (past 8 hours): - 12/20/24 23:15 12/20/24 23:30 12/20/24 23:30 Pulse Rate 111 H Respiratory Rate 16 Blood Pressure 138/56 L 134/50 L Pulse Oximetry 97 Oxygen Delivery Method 12/20/24 23:45 12/21/24 00:00 12/21/24 00:00 Pulse Rate Respiratory Rate Blood Pressure 123/50 L 122/50 L Pulse Oximetry Oxygen Delivery Method Heated High Flow 12/21/24 00:00 12/21/24 00:15 12/21/24 00:30 Pulse Rate 109 H Respiratory Rate 27 H Blood Pressure 125/53 L 129/53 L Pulse Oximetry 98 Oxygen Delivery Method 12/21/24 00:30 12/21/24 01:00 12/21/24 01:30 Pulse Rate 108 H 105 H 99 H Respiratory Rate 22 21 17 Blood Pressure Pulse Oximetry 98 97 97 Oxygen Delivery Method 12/21/24 02:00 12/21/24 02:00 12/21/24 02:00 Pulse Rate 97 H 118 H Respiratory Rate 17 18 Blood Pressure 113/49 L Pulse Oximetry 97 94 Oxygen Delivery Method 12/21/24 02:30 12/21/24 03:00 12/21/24 03:30 Pulse Rate 103 H 103 H 103 H Respiratory Rate 23 22 20 Blood Pressure Pulse Oximetry 99 95 94 Oxygen Delivery Method 12/21/24 04:00 12/21/24 04:00 12/21/24 04:30 Pulse Rate 103 H 106 H Respiratory Rate 23 18 Blood Pressure Pulse Oximetry 94 93 Oxygen Delivery Method Heated High Flow 12/21/24 05:00 12/21/24 05:30 12/21/24 06:00 Pulse Rate 104 H 103 H 103 H Respiratory Rate 25 H 26 H 32 H Blood Pressure 123/60 Pulse Oximetry 93 92 93 Oxygen Delivery Method 12/21/24 06:30 12/21/24 07:00 Pulse Rate 101 H 102 H Respiratory Rate 30 H 33 H Blood Pressure Pulse Oximetry 93 94 Oxygen Delivery Method Fraction of Inspired Oxygen 35 SaO2/FiO2 Ratio 271 Oxygen Delivery Method Heated High Flow Oxygen Flow Rate 50 Narrative Exam Narrative: Lungs are remarkable for poor air movement and diffuse rhonchi. Chest x-ray this morning demonstrates diffuse patchy infiltrates. Heart has a regular rate and rhythm. Normal sinus. Abdomen is mildly distended. Bowel sounds are hypoactive. Ostomy is viable without evidence of gas in the ostomy bag. Objective Labs 12/21/24 05:20 12/21/24 05:20 Labs: Laboratory Results - last 24 hr 12/17/24 12/21/24 15:15 05:20 WBC 31.9 H* D RBC 3.23 L Hgb 8.8 L Hct 27.7 L MCV 85.6 MCH 27.2 MCHC 31.7 RDW 16.7 H Plt Count 205 Neut % (Auto) Not Reportable Lymph % (Auto) Not Reportable [place] % (Auto) Not Reportable Eos % (Auto) Not Reportable Baso % (Auto) Not Reportable Lymph # (Auto) Not Reportable [place] # (Auto) Not Reportable Baso # (Auto) Not Reportable Total Counted 100 Seg Neutrophils % 78.0 H Band Neutrophils % 7.0 Lymphocytes % (Manual) 6.0 L Monocytes % (Manual) 6.0 Metamyelocytes % 3.0 H Neutrophils # (Manual) 52471 H RBC Morphology Normal morphology Sodium 139 Potassium 4.2 Chloride 109 H Carbon Dioxide 16 L BUN 58 H Creatinine 2.64 H Estimated GFR 26 L BUN/Creatinine Ratio 22.0 Glucose 71 Calcium 6.8 L Phosphorus 7.5 H D Magnesium 2.5 H Total Bilirubin 0.5 AST 56 ALT 13 Alkaline Phosphatase 72 Total Protein 5.6 L Albumin 2.5 L Globulin 3.1 Albumin/Globulin Ratio 0.8 L Crossmatch See Detail [facility] Medical History Lung nodule seen on imaging study History of tobacco abuse Fatigue Ventricular tachycardia (paroxysmal) Anemia Palpitations GERD with stricture HTN (hypertension) Insomnia (~2015) Hyperlipidemia (~2015) Anxiety (~2015) COPD (chronic obstructive pulmonary disease) (~2013) Asthma (Unknown) TIA (transient ischemic attack) (05/2014) Hematuria (~2014) Surgical History No pertinent past surgical history Family History Mother Age: 86 Hypertension Sister Age: 69 Cancer Social History household members: none Smoking Status: Former smoker Tobacco: How many years used: 47 quit status: considering quitting second hand exposure: No alcohol intake: former substance use type: does not use Assessment & Plan Assessment and plan (1) Diverticulitis of colon with perforation: Status: Acute Plan Hypoglycemia and marked increase in leukocytosis noted. I favor a pulmonic source. Intraperitoneal source is not ruled out. KUB is unremarkable this morning. CT scanning is unlikely to be helpful on postoperative day 4 as fluid collections are expected in this time frame. Agree with alteration of antibiotic coverage. Continue to monitor. Time-Based Coding :: [TOTAL MINUTES] spent with patient and on the chart (including review of chart, obtaining history, exam, reviewing outside data, placing orders, documenting exam and treatment plan, and counseling patient) on [DATE]. Quality VTE Deep Vein Thrombosis/Pulmonary Embolism Present on Admission: No [facility] PROFEE H[employer]iculture Professor Document charge(s): No
[2024-12-21] MEDS: DEXTROSE 10 % IN WATER 100 ML 1200 ML IV (07:15)
--- NOTE | 2024-12-21 09:14 | PM.PN.EICU ---
Subjective Subjective IF CAMERA ACTIVATED, patient seen via real-time interactive audiovisual communication: Camera activated Date Patient Seen: 12/21/24 Consent obtained for tele-fruit packer face and fill care: Yes Patient Location: ICU Provider location (State): [place] Other participants/roles: RN, ramon, hospitalist Interval history: Following up on this 64 yo M who is POD 4 from sigmoid colectomy Extubated, remains on high flow nc 35%/50 L nebs WBC increased to 31 K today, cxr with patchy infiltrates Diuresed yesterday- Cr up to 2.6 today remains delirious, not on precedex gtt now levo off this am BG 71- he had dextrose, is still NPO, has not passed swallow Current Medications Current Medications Medications: Home Medications ascorbate calcium (vitamin C) 500 mg tablet 500 mg PO DAILY 08/06/23 [History Confirmed 12/13/24] ferrous gluconate 324 mg (38 mg iron) tablet 324 mg PO DAILY #90 tabs 03/28/24 [Rx Confirmed 12/13/24] aluminum-mag hydroxide-simethicone 400 mg-400 mg-40 mg/5 mL oral susp 20 ml PO BID 05/14/24 [History Confirmed 12/13/24] multivitamin with minerals-folic acid 0.4 mg tablet 1 tab PO DAILY 05/14/24 [History Confirmed 12/13/24] nystatin 100,000 unit/mL oral suspension 5 ml PO QID PRN thrush 05/14/24 [History Confirmed 12/13/24] Disabled Parking Permint #1 [id number] 07/01/24 [Rx Confirmed 12/13/24] mometasone-formoterol HFA 200 mcg-5 mcg/actuation aerosol inhaler (Dulera) 2 puff PO BID #13 grams 07/22/24 [Rx Confirmed 12/13/24] cetirizine 10 mg tablet 10 mg PO BEDTIME allergy/asthma 08/25/24 [History Confirmed 12/13/24] clonazepam 0.5 mg tablet 0.5 mg PO TID #90 tabs 08/25/24 [Rx Confirmed 12/13/24] guaifenesin 100 mg/5 mL oral liquid 200 mg PO Q4H PRN cough 08/25/24 [History Confirmed 12/13/24] mecobalamin (vitamin B12) 1,000 mcg chewable tablet 1,000 mcg PO DAILY 08/25/24 [History Confirmed 12/13/24] nitroglycerin 0.3 mg sublingual tablet 0.3 mg sublingual Q5-15M PRN chest pain #20 tabs 08/25/24 [Rx Confirmed 12/13/24] simvastatin 20 mg tablet 20 mg PO QPM #90 tabs 08/25/24 [Rx Confirmed 12/13/24] albuterol sulfate 2.5 mg/3 mL (0.083 %) solution for nebulization 2.5 mg (3 mL) inhalation QID PRN shortness of breath or wheezing #180 mL 09/09/24 [Rx Confirmed 12/13/24] albuterol sulfate 90 mcg/actuation aerosol inhaler (Ventolin HFA) 1 - 2 puff PO Q4H PRN for wheezing #54 grams 09/09/24 [Rx Confirmed 12/13/24] ipratropium bromide 0.02 % solution for inhalation 2.5 ml inhalation QID PRN shortness of breath or wheezing #150 mL 09/09/24 [Rx Confirmed 12/13/24] montelukast 10 mg tablet 10 mg PO BEDTIME #90 tabs 10/11/24 [Rx Confirmed 12/13/24] hydrocodone 5 mg-acetaminophen 325 mg tablet 2 tab PO Q4H PRN Pain, Severe (7-10) #20 tabs 10/28/24 [Rx Confirmed 12/13/24] ondansetron 4 mg disintegrating tablet 4 mg PO Q8H PRN nausea and vomiting #14 tabs 10/28/24 [Rx Confirmed 12/13/24] acetaminophen 500 mg tablet 500 mg PO Q6H PRN Pain (Scale Score 1-3) 10/31/24 [History Confirmed 12/13/24] polyethylene glycol 3350 17 gram/dose oral powder 17 g PO DAILY PRN constipation 10/31/24 [History Confirmed 12/13/24] benzonatate 100 mg capsule 100 mg PO BID-TID PRN Cough #270 caps 11/01/24 [Rx Confirmed 12/13/24] prednisone 10 mg tablet See Rx Instructions PO .COMPLEX #76 tabs 11/01/24 [Rx Confirmed 12/13/24] Visit Medications (administered) Generic Name Dose Route Start Last Admin Trade Name Freq PRN Reason Stop Dose Admin Albuterol/Ipratropium 3 ml 12/17/24 21:33 12/19/24 19:26 Albuterol/Ipratropium 3 Ml Ampul INH 3 ml RTQ4HR PRN Administration Shortness Of Breath Albuterol/Ipratropium 3 ml 12/19/24 23:00 12/21/24 07:16 Albuterol/Ipratropium 3 Ml Ampul INH Not Given RTQ4HR ROBERT Budesonide 0.5 mg 12/20/24 09:40 12/21/24 06:25 Budesonide 0.5 Mg/2 Ml Neb INH 0.5 mg RTBID ROBERT Administration Heparin Sodium (Porcine) 5,000 unit 12/17/24 22:00 12/21/24 05:23 Heparin 5,000 Unit/Ml Vial SUBCUT 5,000 unit Q8HR ROBERT Administration Hydromorphone HCl 2 mg 12/19/24 09:38 12/20/24 08:48 Hydromorphone 2 Mg Inj IV 2 mg Q2H PRN Administration Pain, Severe (7-10) Hydromorphone HCl 1 mg 12/20/24 17:57 12/21/24 00:50 Hydromorphone 1 Mg Inj IV 1 mg Q2H PRN Administration Pain, Moderate (4-6) Propofol 1,000 mg in 100 mls @ 2.218 mls/hr 12/17/24 18:00 12/20/24 16:02 Diprivan IV Infused TITRATE [facility] Titration Protocol 5 MCG/KG/MIN Fentanyl 1,000 mcg/ Dextrose 250 mls @ 12.939 mls/hr 12/17/24 18:00 12/20/24 16:01 IV Infused TITRATE [facility] Titration Protocol 0.7 MCG/KG/HR Phenylephrine HCl 20,000 mcg/ 250 mls @ 27.726 mls/hr 12/17/24 18:15 12/20/24 16:02 Dextrose IV Infused TITRATE [facility] Titration Protocol 0.5 MCG/KG/MIN NOREPINEPHRINE BITARTRATE/D5W 4 mg in 250 mls @ 27.75 mls/hr 12/18/24 04:29 12/21/24 03:00 Levophed IV 0 mcg/kg/min TITRATE ROBERT 0 mls/hr Protocol Titration 0.1 MCG/KG/MIN Vasopressin 40 unit/ Sodium 102 mls @ 4.5 mls/hr 12/18/24 04:30 12/20/24 16:03 Chloride IV Infused CONT ROBERT Infusion dexmedeTOMIDine in 0.9 % NaCL 400 mcg in 100 mls @ 3.99 mls/hr 12/19/24 14:15 12/20/24 11:00 Precedex IV 0 mcg/kg/hr TITRATE ROBERT 0 mls/hr Protocol Titration 0.2 MCG/KG/HR Dextrose 100 mls @ 1,200 mls/hr 12/21/24 06:33 12/21/24 07:38 D10w IV Infused PRN PRN Infusion Hypoglycemia Insulin Human Lispro 0 unit 12/21/24 06:45 12/21/24 07:31 Insulin Lispro 100 Unit/Ml 3ml Vial SUBCUT Not Given Q6H ROBERT Protocol Objective Ventilator Parameters: Ventilator Settings FiO2 30 RT Vent Frequency 18 Ventilator Tidal Volume 500 Exhaled Vt/kg IBW 7.3 Positive End Expiratory 5 Pressure Inspiratory Phase Time 0.90 I:E Ratio 1:2.7 Patient Position HOB >= 30 degrees Imaging Chest x-ray: My impression: patchy infiltrate bilaterally- no ptx Radiologist's impression: awaiting read Abdominal x-ray: Radiologist's impression: IMPRESSION: Possible free air in upper abdomen better evaluated on CT study. Bowel gas pattern is nonobstructive. Labs 12/21/24 05:20 12/21/24 05:20 Labs: Laboratory Results - last 24 hr 12/17/24 12/21/24 15:15 05:20 WBC 31.9 H* D RBC 3.23 L Hgb 8.8 L Hct 27.7 L MCV 85.6 MCH 27.2 MCHC 31.7 RDW 16.7 H Plt Count 205 Neut % (Auto) Not Reportable Lymph % (Auto) Not Reportable [place] % (Auto) Not Reportable Eos % (Auto) Not Reportable Baso % (Auto) Not Reportable Lymph # (Auto) Not Reportable [place] # (Auto) Not Reportable Baso # (Auto) Not Reportable Total Counted 100 Seg Neutrophils % 78.0 H Band Neutrophils % 7.0 Lymphocytes % (Manual) 6.0 L Monocytes % (Manual) 6.0 Metamyelocytes % 3.0 H Neutrophils # (Manual) 35853 H RBC Morphology Normal morphology Sodium 139 Potassium 4.2 Chloride 109 H Carbon Dioxide 16 L BUN 58 H Creatinine 2.64 H Estimated GFR 26 L BUN/Creatinine Ratio 22.0 Glucose 71 Calcium 6.8 L Phosphorus 7.5 H D Magnesium 2.5 H Total Bilirubin 0.5 AST 56 ALT 13 Alkaline Phosphatase 72 Total Protein 5.6 L Albumin 2.5 L Globulin 3.1 Albumin/Globulin Ratio 0.8 L Crossmatch See Detail Exam Vital Signs (past 8 hours): - 12/21/24 01:30 12/21/24 02:00 12/21/24 02:00 Pulse Rate 99 H 97 H Respiratory Rate 17 17 Blood Pressure 113/49 L Pulse Oximetry 97 97 Oxygen Delivery Method 12/21/24 02:00 12/21/24 02:30 12/21/24 03:00 Pulse Rate 118 H 103 H 103 H Respiratory Rate 18 23 22 Blood Pressure Pulse Oximetry 94 99 95 Oxygen Delivery Method 12/21/24 03:30 12/21/24 04:00 12/21/24 04:00 Pulse Rate 103 H 103 H Respiratory Rate 20 23 Blood Pressure Pulse Oximetry 94 94 Oxygen Delivery Method Heated High Flow 12/21/24 04:30 12/21/24 05:00 12/21/24 05:30 Pulse Rate 106 H 104 H 103 H Respiratory Rate 18 25 H 26 H Blood Pressure Pulse Oximetry 93 93 92 Oxygen Delivery Method 12/21/24 06:00 12/21/24 06:30 12/21/24 07:00 Pulse Rate 103 H 101 H 102 H Respiratory Rate 32 H 30 H 33 H Blood Pressure 123/60 Pulse Oximetry 93 93 94 Oxygen Delivery Method Fraction of Inspired Oxygen 35 SaO2/FiO2 Ratio 271 Oxygen Delivery Method Heated High Flow Oxygen Flow Rate 50 Narrative Exam Narrative: lying in bed wearing hi flow nc, breathing appears a bit labored, but states he is comfortable appears generally ill off pressors BP is WNL and O2 sat 93% on monitor seems confused Quality TeleICU VTE Deep Vein Thrombosis/Pulmonary Embolism Present on Admission: No Assessment & Plan Assessment & Plan narrative: Worsening leukocytosis and patchy cxr today, c/f PNA abx changed to cefepime/flagyl- will check mrsa nares, if + add vanco or if clinically declining low threshold to empirically add will add fluconazole for antifungal coverage as well -send fungitell if able - trend procalcitonin - levophed if needed to maintain map >65- has been on/off levo gtt- currently off - continue high flow nc, wean as tolerated -Continue Duonebs -PRN NT suctioning -Mobilize -Delirium prevention, reorientation -swallow study when able, advance diet per surgical service hypoglycemic this am to 71- may need low dose dextrose gtt #CLAY worsening cr -made 900 cc urine overnight - hold diuersis today - low threshold to transfer if renal function continues to decline, for nephro services, - no indication for HD currently -trend Cr #POD 4 from sigmoid colectomy -As per general surgery -they reviewed kub this am, no acute findings- do not currently recommend ct on pod 4 -check [place] -Swallow eval when OK w/ surgery #ICU best practices -Stress ulcer prophylaxis --> stopped PPI now that he's extubated -VTE prophylaxis: heparin SQ I spent a total of 40 minutes of aggregate critical care time today on this patient's care; this time excludes all procedural time Time-Based Coding :: [TOTAL MINUTES] spent with patient and on the chart (including review of chart, obtaining history, exam, reviewing outside data, placing orders, documenting exam and treatment plan, and counseling patient) on [DATE].
[2024-12-21 09:59] LABS: Procalcitonin 18.9 ng/mL (<0.5)
--- NOTE | 2024-12-21 10:03 | DIET.PN1 ---
Dietary Progress Note Assessment: RD f/u Awaiting CABIN AGENT eval post extubation. Will continue to follow closely. Pt NPO day 5. Ht: 175.26 cm Wt: 95 kg BMI: 24.0 UBW: Last BM: 12/17/24 (12/17/24 18:00) MNA: 8 Matthew Score: 16 Diet: 12/17/24 17:57 NPO Diet Diet Modifications: NPO Type: Strict Nutrition Percent Meal Consumed 0% 12/20/24 10:00 Percent Meal Consumed 0% 12/20/24 08:27 Percent Meal Consumed 0% 12/20/24 08:00 Labs: RBC 3.23 X10^6/uL (4.5-5.9) L 12/21/24 05:20 Hgb 8.8 g/dL (13.5-17.5) L 12/21/24 05:20 Hct 27.7 % (41-53) L 12/21/24 05:20 Creatinine 2.64 mg/dL (0.66-1.25) H 12/21/24 05:20 Lactate 1.0 mmol/L (0.7-2.1) 12/18/24 19:30 NT-Pro-B Natriuret Pep 153 pg/mL (<125) H 12/13/24 20:31 Electronically Signed by: Alyssa Srinivasan 12/21/24 10:03 Clinical Dietitian [address] [address]
[2024-12-21] MEDS: FLUCONAZOLE 400 MG/200 ML PIGGYBACK 100 MG IV (10:04)
[2024-12-21 10:20] LABS: MRSA (Nasal) PCR DETECTED (Not Detect)
--- NOTE | 2024-12-21 10:31 | CM.DPC ---
DCP Cont. Reviewed EMR and team rounds for pt's status updates. Pt was extubated yesterday, plan is for Dr. Martinez to meet with family today to have a goals of care discussion re: whether or not pt can be converted to DNR, and if the need for reintubation occurs, would the family want this. Monitoring for final plan and SECURITY SERVICES MANAGER assistance needs.
[2024-12-21 10:35] LABS: Lactate (Lactic Acid) < 0.5 mmol/L (0.7-2.1)
--- NOTE | 2024-12-21 11:56 | SLP.IPNOTE ---
Hold on ANTISQUEAK FILLER evaluation this date for PO trials per Dr. Silver. ANTISQUEAK FILLER to f/u tomorrow.
[2024-12-21] MEDS: metroNIDAZOLE 500 MG/100 ML PIGGYBACK 100 MG IV ×2 (12:11→17:59)
[2024-12-21] MEDS: CEFEPIME 1 GM in SODIUM CHLORIDE 0.9% 100 ML IV ×2 (13:50→22:43)
--- NOTE | 2024-12-21 14:03 | PM.PN.1 ---
Subjective Subjective Interval history: Summary: The patient was admitted with fever and cough on December 13. He has a history of severe COPD and was recently treated for diverticulitis. Initial chest imaging indicated a possible new infiltrate, abdomen CT indicated colitis of the transverse colon. He had recently been treated with IV Zosyn for 14 days for diverticulitis [facility]. He had no diarrhea. Hospital course: 12/14: IV antibiotics for possible pneumonia and complaints of right-sided abdomen pain. A CTA of the chest and abdomen was suggestive of colitis versus diverticulitis in the mid transverse colon. There were persistent mild inflammatory changes in the descending and sigmoid colon. 12/15: Breathing is improved, he did develop abdominal distention and notes a bowel movement the previous evening. He was also belching. Simethicone was added. 12/16: Breathing less of a concern and there is more abdominal pain. The pain was accompanied with abdominal distention. A KUB was obtained and revealed moderate constipation and no gross free air. WBC was elevated at 18.5, afebrile. 12/17: Less abdominal pain, no fevers. The abdomen was persistently distended. This prompted a CT of the abdomen and pelvis which revealed colonic perforation, and pneumoperitoneum as well as evidence of more significant diverticulitis in the sigmoid and descending colon. The patient was informed of the situation and I discussed the risks and benefits of emergent surgery with the patient and his family. General surgery was consulted and ultimately he did go to the OR for a sigmoid colectomy with an end descending colostomy. The patient required pressors in the OR but did well with regards to being ventilated. Returned to the ICU with a central line and A-line in place and remained relatively stable. 12/18: He was on 2 pressors overnight, he was evidence of acute kidney injury but good urine output with 600 mL of urine overnight. FiO2 on the ventilator is 0.40. Tele-pattern grader supervisor was consulted at 17:00. 12/19: Now only on 1 pressor, improving in this regard. Cr still rising slightly but good urine output. failed spontaneous breathing trial this afternoon. Overnight given 1U PRBC for Hg of 7 with improvement to 8.1. 12/20: extubated to heated high flow O2 with tele-pattern grader supervisor. 12/21: required levophed overnight after diuresis. Adequate urine output but Cr rising today. Broadened antibiotics to cefepime, flagyl, vanc, and added fluconaole as well. S: Confused, difficult to ascertain complaints but denies pain states his abdomen feels fine. Exam Vital Signs (past 8 hours): - 12/21/24 06:30 12/21/24 07:00 12/21/24 07:30 Pulse Rate 101 H 102 H 102 H Respiratory Rate 30 H 33 H 35 H Blood Pressure Pulse Oximetry 93 94 94 Oxygen Delivery Method Oxygen Flow Rate Fraction of Inspired Oxygen 12/21/24 08:00 12/21/24 08:30 12/21/24 09:00 Pulse Rate 103 H 104 H 101 H Respiratory Rate 39 H 27 H 32 H Blood Pressure Pulse Oximetry 91 92 89 L Oxygen Delivery Method Oxygen Flow Rate Fraction of Inspired Oxygen 12/21/24 09:30 12/21/24 10:00 12/21/24 12:23 Pulse Rate 102 H 103 H 100 H Respiratory Rate 26 H 28 H 20 Blood Pressure 132/76 Pulse Oximetry 89 L 93 94 Oxygen Delivery Method Oxygen Flow Rate Fraction of Inspired Oxygen 12/21/24 12:23 Pulse Rate 98 H Respiratory Rate 20 Blood Pressure Pulse Oximetry 94 Oxygen Delivery Method Heated High Flow Oxygen Flow Rate 50 Fraction of Inspired Oxygen 35 Fraction of Inspired Oxygen 35 SaO2/FiO2 Ratio 268 Oxygen Delivery Method Heated High Flow Oxygen Flow Rate 50 Narrative Exam Narrative: Gen: chronically ill appearing male, on high flow. Alert but confused CV: RRR no m/r/g Pulm: poor effort, Abd: S mild distension, non-tender. Ext: trace edema b/l LE Objective Labs 12/21/24 05:20 12/21/24 05:20 Labs: Laboratory Results - last 24 hr 12/17/24 12/21/24 12/21/24 15:15 05:20 09:04 WBC 31.9 H* D RBC 3.23 L Hgb 8.8 L Hct 27.7 L MCV 85.6 MCH 27.2 MCHC 31.7 RDW 16.7 H Plt Count 205 Neut % (Auto) Not Reportable Lymph % (Auto) Not Reportable [place] % (Auto) Not Reportable Eos % (Auto) Not Reportable Baso % (Auto) Not Reportable Lymph # (Auto) Not Reportable [place] # (Auto) Not Reportable Baso # (Auto) Not Reportable Total Counted 100 Seg Neutrophils % 78.0 H Band Neutrophils % 7.0 Lymphocytes % (Manual) 6.0 L Monocytes % (Manual) 6.0 Metamyelocytes % 3.0 H Neutrophils # (Manual) 78801 H RBC Morphology Normal morphology Sodium 139 Potassium 4.2 Chloride 109 H Carbon Dioxide 16 L BUN 58 H Creatinine 2.64 H Estimated GFR 26 L BUN/Creatinine Ratio 22.0 Glucose 71 Lactate Calcium 6.8 L Phosphorus 7.5 H D Magnesium 2.5 H Total Bilirubin 0.5 AST 56 ALT 13 Alkaline Phosphatase 72 Total Protein 5.6 L Albumin 2.5 L Globulin 3.1 Albumin/Globulin Ratio 0.8 L Procalcitonin 18.9 H Nasal Screen MRSA (PCR) Detected H Crossmatch See Detail 12/21/24 10:13 WBC RBC Hgb Hct MCV MCH MCHC RDW Plt Count Neut % (Auto) Lymph % (Auto) [place] % (Auto) Eos % (Auto) Baso % (Auto) Lymph # (Auto) [place] # (Auto) Baso # (Auto) Total Counted Seg Neutrophils % Band Neutrophils % Lymphocytes % (Manual) Monocytes % (Manual) Metamyelocytes % Neutrophils # (Manual) RBC Morphology Sodium Potassium Chloride Carbon Dioxide BUN Creatinine Estimated GFR BUN/Creatinine Ratio Glucose Lactate < 0.5 L Calcium Phosphorus Magnesium Total Bilirubin AST ALT Alkaline Phosphatase Total Protein Albumin Globulin Albumin/Globulin Ratio Procalcitonin Nasal Screen MRSA (PCR) Crossmatch [facility] Medical History Lung nodule seen on imaging study History of tobacco abuse Fatigue Ventricular tachycardia (paroxysmal) Anemia Palpitations GERD with stricture HTN (hypertension) Insomnia (~2015) Hyperlipidemia (~2015) Anxiety (~2015) COPD (chronic obstructive pulmonary disease) (~2013) Asthma (Unknown) TIA (transient ischemic attack) (05/2014) Hematuria (~2014) Surgical History No pertinent past surgical history Family History Mother Age: 86 Hypertension Sister Age: 69 Cancer Social History household members: none Smoking Status: Former smoker Tobacco: How many years used: 47 quit status: considering quitting second hand exposure: No alcohol intake: former substance use type: does not use Assessment & Plan Assessment & Plan narrative: 1. Septic shock with CLAY, acute metabolic encephalopathy, acute respiratory failure with hypoxia 2. Perforated colon due to diverticulitis, new status post sigmoid colectomy and colostomy. 3. COPD without exacerbation 4. Possible new pneumonia time of admission, active. 5. Acute blood loss anemia due to #2 Plan: -Extubated to high flow after intubation post operatively from 12/17 until 12/20. Continue to wean O2 as tolerated. Discuss goals of care re: possible reintubation -broaden antibiotics to cefepime, flagyl, and vanco as MRSA swab positive. Also added fluconazole with prior dane in sputum cultures. Fungitell is send out, ordered today -intermittent levophed overnight, continue to monitor, okay for a-line to be removed. Weaned from Simon on 12/19. -h/h stable today. S/p 1 U PRBC overnight 12/18-12/19. H/h responded appropriately. -discussed with general surgeon today -monitor urine output renal function. Worsening Cr today. Cr now slightly improved today. No indications for dailysis currently but low threshold for transfer but will also discuss dialysis with goals of care as above. -given frequent COPD admissions with need for steroids, checked AM cortisol level which was above normal. no stress dose steroids indicated. -GI prophylaxis in place. -DVT prophylaxis in place. Critical care time spent 45 minutes. Dispo: remains ICU, extubated 12/20. Time-Based Coding :: [TOTAL MINUTES] spent with patient and on the chart (including review of chart, obtaining history, exam, reviewing outside data, placing orders, documenting exam and treatment plan, and counseling patient) on [DATE]. Quality VTE Deep Vein Thrombosis/Pulmonary Embolism Present on Admission: No
[2024-12-21] MEDS: VANCOMYCIN 2,000 MG/400 ML PIGGYBACK 200 MG IV (15:07)
[2024-12-21 17:06] LABS: Base Excess ABG -0.7 mmol/L (-2-3); Blood Gas Collection Site Arterial Line; Blood Gas Mode Assist Cont Ventilat; Delivery System Adult Ventilator; HCO3 ABG 25 mmol/L (23-27); Oxygen Saturation ABG 99 % (95-100); PCO2 ABG 44.8 mmHg (35-45); PEEP 5; PO2 ABG 152 mmHg (80-100); Respiratory Rate 18; TCO2 ABG 24 mmol/L (23-27); pH ABG 7.36 (7.35-7.45)
--- NOTE | 2024-12-21 18:00 | DI.RAD.S_ITS ---
PROCEDURE: XR CHEST 1V INDICATIONS: Intubated TECHNIQUE: One view of the chest was acquired. COMPARISON: [facility], CR, XR CHEST 1V, 12/19/2024, 17:56. FINDINGS: Heart, mediastinum and pulmonary vascular: Heart is normal in size and configuration. Right IJ line in stable satisfactory position Mediastinum is unremarkable. Pulmonary vascular is normal. Lungs: 3.3 cm spiculated mass in the right upper lobe again noted. Underlying COPD. Moderate vague patchy infiltrates developed in both lower lungs Pleural spaces: Possible small right pneumothorax noted Bones and soft tissues: Normal IMPRESSION: New moderate patchy infiltrates in both mid lower lungs. Suspect aspiration. Possible small right apical pneumothorax noted. Suggest tightly coned PA view over the right upper lobe. If the patient cannot cooperate , than suggest chest CT 3.2 cm mass in the right upper lobe which apparently has been previously evaluated Dictated by: Nicko Arenas M.D. on 12/22/2024 at 12:33 Approved by: Nicko Arenas M.D. on 12/22/2024 at 12:35
--- NOTE | 2024-12-21 20:31 | PM.ICURNDS ---
- Date Patient Seen: 12/21/24 Time Patient Seen: 20:31 :: This patient was seen via real time interactive two-way audiovisual telecommunication. Note: extubated. doign well on HFnc may need precedex for agiation d/w bedside nursing team
[2024-12-22] VITALS (27 sets, daily range): BP systolic 120–136; BP diastolic 57–63; PULSE 91–101; RESP 21–36; TEMP 36.7; O2SAT 94–100
[2024-12-22] MEDS: metroNIDAZOLE 500 MG/100 ML PIGGYBACK 100 MG IV (01:46)
--- NOTE | 2024-12-22 02:38 | CM.MNRNOTE ---
Pt. requested to see a post anesthesia room nurse and when asked why he needs to see the post anesthesia room nurse, pt. stated . Asked pt. also if he wants his sister called and answered yes. Media Executive and sister called. Media Executive showed up then minutes later pt's sister and mother showed up. Both mother and sister are at bedside visiting with pt.
[2024-12-22 04:32] LABS: Hematocrit 25.7 % (41-53); Hemoglobin 8.1 g/dL (13.5-17.5); Mean Corpuscular HGB Conc 31.5 % (30-36); Mean Corpuscular Hemoglobin 27.5 PG (26-34); Mean Corpuscular Volume 87.3 fL (80-100); Platelet Count 193 X10^3/uL (150-400); Red Blood Cell Count 2.95 X10^6/uL (4.5-5.9); Red Cell Distribution Width 16.9 % (11.6-14.8)
[2024-12-22 04:34] LABS: Add Manual Diff / Slide Review YES
[2024-12-22 04:35] LABS: White Blood Cell Count 30.4 X10^3/uL (4.5-11.0)
[2024-12-22 04:37] LABS: Alanine Aminotransferase 13 IU/L (<50); Albumin 2.5 g/dL (3.5-5.0); Albumin Globulin Ratio 0.8 (1.0-2.8); Alkaline Phosphatase 77 U/L (38-126); Aspartate Aminotransferase 61 IU/L (17-59); Bilirubin Total 0.5 mg/dL (0.2-1.3); Blood Urea Nitrogen 73 mg/dL (9-20); Carbon Dioxide 15 mmol/L (22-32); Chloride 110 mmol/L (98-107); Globulin 3.3 g/dL (1.7-4.1); Glucose 79 mg/dL (70-99); HEMOLYSIS < 15 (0-50); Magnesium 2.7 mg/dL (1.6-2.3); Potassium 4.9 mmol/L (3.4-5.1); Sodium 142 mmol/L (137-145); Total Protein 5.8 g/dL (6.3-8.2)
[2024-12-22 04:43] LABS: BUN Creatinine Ratio 24.3 (6-22); Estimated Glomerular Filt Rate 22 mL/min (>60)
[2024-12-22 04:49] LABS: Phosphorous 10.2 mg/dL (2.3-3.7)
[2024-12-22 04:55] LABS: Neutrophils Absolute Manual 27968 /uL (3000-5900); Total Cells Counted 100
[2024-12-22 04:56] LABS: Anisocytosis 1+
[2024-12-22] MEDS: HEPARIN 5,000 UNIT/ML VIAL 5000 UNIT SUBCUT (05:38)
--- NOTE | 2024-12-22 08:34 | PM.EVENT ---
Event Note Date Patient Seen: 12/22/24 Event Note (Rapid Response, Code, or fall): Wrosening renal function, hyperphosphatemia. Patient and family now electing for comfort measures. Have stopped labs, levophed, antibiotics and fluconazole. Will wean to nasal cannula. Can downgrade to floor care.
[2024-12-22] MEDS: MORPHINE 10 MG/0.5 ML ORAL SYRINGE SL ×4 (08:57→15:49)
--- NOTE | 2024-12-22 09:09 | PM.PN.IH.1 ---
Subjective Subjective Date Patient Seen: 12/22/24 Time Patient Seen: 08:30 Interval history: Patient appears to be nonverbal at this point. He has been made comfort care. Exam Vital Signs (past 8 hours): - 12/22/24 02:00 12/22/24 02:00 12/22/24 03:00 Temperature Pulse Rate 99 H 99 H 100 H Respiratory Rate 30 H 31 H 28 H Blood Pressure 129/62 136/63 Pulse Oximetry 95 94 95 Oxygen Delivery Method Oxygen Flow Rate 50 50 Fraction of Inspired Oxygen 35 35 12/22/24 04:00 12/22/24 04:54 12/22/24 05:00 Temperature Pulse Rate 100 H 98 H Respiratory Rate 29 H 34 H Blood Pressure 129/62 125/60 Pulse Oximetry 94 99 Oxygen Delivery Method Heated High Flow Oxygen Flow Rate 50 50 Fraction of Inspired Oxygen 35 35 12/22/24 05:31 12/22/24 06:00 12/22/24 07:00 Temperature Pulse Rate 99 H 97 H 97 H Respiratory Rate 31 H 34 H Blood Pressure 122/58 L 122/58 L Pulse Oximetry 94 98 95 Oxygen Delivery Method Oxygen Flow Rate 50 Fraction of Inspired Oxygen 35 12/22/24 08:00 Temperature 98.1 F Pulse Rate 97 H Respiratory Rate Blood Pressure 124/60 Pulse Oximetry 95 Oxygen Delivery Method Oxygen Flow Rate Fraction of Inspired Oxygen Fraction of Inspired Oxygen 35 SaO2/FiO2 Ratio 271 Oxygen Delivery Method Heated High Flow Oxygen Flow Rate 50 Narrative Exam Narrative: Heart has a regular rate and rhythm with no murmur or gallop. He is in normal sinus with a rate in the 90s. Abdomen is mildly distended. Ostomy is viable. Bowel sounds are hypoactive. Lung exam remarkable for extremely poor air movement. No rhonchi are detected. Chest x-ray is unchanged from yesterday. Objective Labs 12/22/24 04:15 12/22/24 04:15 Labs: Laboratory Results - last 24 hr 12/17/24 12/21/24 12/21/24 17:31 05:20 09:04 WBC RBC Hgb Hct MCV MCH MCHC RDW Plt Count Neut % (Auto) Lymph % (Auto) [place] % (Auto) Eos % (Auto) Baso % (Auto) Lymph # (Auto) [place] # (Auto) Baso # (Auto) Total Counted Seg Neutrophils % Band Neutrophils % Lymphocytes % (Manual) Monocytes % (Manual) Metamyelocytes % Neutrophils # (Manual) Plt Morphology Comment RBC Morphology Anisocytosis ABG Sample Site Arterial line ABG pH 7.36 ABG pCO2 44.8 ABG pO2 152 H ABG HCO3 25 ABG Total CO2 24 ABG O2 Saturation 99 ABG Base Excess -0.7 Chau Test N/a Respiration Rate 18 O2 Delivery Device Adult ventilator Mode of Support Assist cont ventilat FiO2 % 50.0 % PEEP or CPAP 5 Sodium Potassium Chloride Carbon Dioxide BUN Creatinine Estimated GFR BUN/Creatinine Ratio Glucose Lactate Calcium Phosphorus Magnesium Total Bilirubin AST ALT Alkaline Phosphatase Total Protein Albumin Globulin Albumin/Globulin Ratio Procalcitonin 18.9 H Nasal Screen MRSA (PCR) Detected H 12/21/24 12/22/24 10:13 04:15 WBC 30.4 H* RBC 2.95 L Hgb 8.1 L Hct 25.7 L MCV 87.3 MCH 27.5 MCHC 31.5 RDW 16.9 H Plt Count 193 Neut % (Auto) Not Reportable Lymph % (Auto) Not Reportable [place] % (Auto) Not Reportable Eos % (Auto) Not Reportable Baso % (Auto) Not Reportable Lymph # (Auto) Not Reportable [place] # (Auto) Not Reportable Baso # (Auto) Not Reportable Total Counted 100 Seg Neutrophils % 83.0 H Band Neutrophils % 9.0 H Lymphocytes % (Manual) 2.0 L Monocytes % (Manual) 4.0 Metamyelocytes % 2.0 H Neutrophils # (Manual) 21068 H Plt Morphology Comment . RBC Morphology See below Anisocytosis 1+ H ABG Sample Site ABG pH ABG pCO2 ABG pO2 ABG HCO3 ABG Total CO2 ABG O2 Saturation ABG Base Excess Chau Test Respiration Rate O2 Delivery Device Mode of Support FiO2 % PEEP or CPAP Sodium 142 Potassium 4.9 Chloride 110 H Carbon Dioxide 15 L BUN 73 H Creatinine 3.01 H Estimated GFR 22 L BUN/Creatinine Ratio 24.3 H Glucose 79 Lactate < 0.5 L Calcium 7.0 L Phosphorus 10.2 H* D Magnesium 2.7 H Total Bilirubin 0.5 AST 61 H ALT 13 Alkaline Phosphatase 77 Total Protein 5.8 L Albumin 2.5 L Globulin 3.3 Albumin/Globulin Ratio 0.8 L Procalcitonin Nasal Screen MRSA (PCR) [facility] Medical History Lung nodule seen on imaging study History of tobacco abuse Fatigue Ventricular tachycardia (paroxysmal) Anemia Palpitations GERD with stricture HTN (hypertension) Insomnia (~2015) Hyperlipidemia (~2015) Anxiety (~2015) COPD (chronic obstructive pulmonary disease) (~2013) Asthma (Unknown) TIA (transient ischemic attack) (05/2014) Hematuria (~2014) Surgical History No pertinent past surgical history Family History Mother Age: 86 Hypertension Sister Age: 69 Cancer Social History household members: none Smoking Status: Former smoker Tobacco: How many years used: 47 quit status: considering quitting second hand exposure: No alcohol intake: former substance use type: does not use Assessment & Plan Assessment and plan (1) Diverticulitis of colon with perforation: Status: Acute Time-Based Coding :: [TOTAL MINUTES] spent with patient and on the chart (including review of chart, obtaining history, exam, reviewing outside data, placing orders, documenting exam and treatment plan, and counseling patient) on [DATE]. Quality VTE Deep Vein Thrombosis/Pulmonary Embolism Present on Admission: No IH PROFEE Operations Project Manager Document charge(s): No
--- NOTE | 2024-12-22 10:07 | DIET.PN1 ---
Dietary Progress Note Assessment: Pt comfort care now. No further nutritional interventions. Ht: 175.26 cm Wt: 85.5 kg BMI: 24.0 Last BM: 12/17/24 (12/17/24 18:00) MNA: 8 Matthew Score: 12 Diet: 12/17/24 17:57 NPO Diet Diet Modifications: NPO Type: Strict Labs: RBC 2.95 X10^6/uL (4.5-5.9) L 12/22/24 04:15 Hgb 8.1 g/dL (13.5-17.5) L 12/22/24 04:15 Hct 25.7 % (41-53) L 12/22/24 04:15 Creatinine 3.01 mg/dL (0.66-1.25) H 12/22/24 04:15 Lactate < 0.5 mmol/L (0.7-2.1) L 12/21/24 10:13 NT-Pro-B Natriuret Pep 153 pg/mL (<125) H 12/13/24 20:31 Electronically Signed by: Alyssa Srinivasan 12/22/24 10:07 Clinical Dietitian [address] [id number]
--- NOTE | 2024-12-22 10:31 | SLP.IPNOTE ---
Per most recent progress note, patient and family now electing for comfort measures d/t worsening medical status. HOME ENERGY AUDITOR spoke with hospitalist Dr. Manuel Martinez re: assessing current swallowing function vs. discharging order. MD agreeable to discharging order at this time. HOME ENERGY AUDITOR to follow-up as needed. Order discharged at this time.
[2024-12-22] MEDS: SCOPOLAMINE 1 PATCH TOP (10:50)
--- NOTE | 2024-12-22 13:03 | PC.NURSE ---
GAS APPLIANCE SERVICER NOTE: This GAS APPLIANCE SERVICER removed left forearm and right forearm I.V's at 13:00, per nurse delegation.
--- NOTE | 2024-12-22 14:43 | PM.PN.1 ---
Subjective Subjective Interval history: Summary: The patient was admitted with fever and cough on December 13. He has a history of severe COPD and was recently treated for diverticulitis. Initial chest imaging indicated a possible new infiltrate, abdomen CT indicated colitis of the transverse colon. He had recently been treated with IV Zosyn for 14 days for diverticulitis in his [facility] facility. He had no diarrhea. He continued to have abdominal distension and was found to have a perforation. He went to the OR where he had Sigmoid colectomy with end descending colostomy on 12/17 with general surgery. He was brought to the ICU intubated and sedated after surgery. 12/18: He was on 2 pressors overnight, he was evidence of acute kidney injury but good urine output with 600 mL of urine overnight. FiO2 on the ventilator is 0.40. Tele-online community manager was consulted at 17:00. 12/19: Now only on 1 pressor, improving in this regard. Cr still rising slightly but good urine output. failed spontaneous breathing trial this afternoon. Overnight given 1U PRBC for Hg of 7 with improvement to 8.1. 12/20: extubated to heated high flow O2 with tele-online community manager. 12/21: required levophed overnight after diuresis. Adequate urine output but Cr rising today. Broadened antibiotics to cefepime, flagyl, vanc, and added fluconaole as well. 12/22:worsened renal function, continued altered mentation but alert and interactive. Patient and family both electing to proceed with comfort measures. S: Confused, difficult to ascertain complaints but denies pain states his abdomen feels fine. Exam Vital Signs (past 8 hours): - 12/22/24 07:00 12/22/24 08:00 12/22/24 09:00 Temperature 98.1 F Pulse Rate 97 H 97 H Blood Pressure 122/58 L 124/60 Pulse Oximetry 95 95 Oxygen Delivery Method Heated High Flow Fraction of Inspired Oxygen 35 SaO2/FiO2 Ratio 271 Oxygen Delivery Method Heated High Flow Oxygen Flow Rate 50 Narrative Exam Narrative: Gen: chronically ill appearing male, on high flow. Alert but confused CV: RRR no m/r/g Pulm: poor effort, Abd: S mild distension, non-tender. Ext: trace edema b/l LE Objective Labs 12/22/24 04:15 12/22/24 04:15 Labs: Laboratory Results - last 24 hr 12/17/24 12/22/24 17:31 04:15 WBC 30.4 H* RBC 2.95 L Hgb 8.1 L Hct 25.7 L MCV 87.3 MCH 27.5 MCHC 31.5 RDW 16.9 H Plt Count 193 Neut % (Auto) Not Reportable Lymph % (Auto) Not Reportable [place] % (Auto) Not Reportable Eos % (Auto) Not Reportable Baso % (Auto) Not Reportable Lymph # (Auto) Not Reportable [place] # (Auto) Not Reportable Baso # (Auto) Not Reportable Total Counted 100 Seg Neutrophils % 83.0 H Band Neutrophils % 9.0 H Lymphocytes % (Manual) 2.0 L Monocytes % (Manual) 4.0 Metamyelocytes % 2.0 H Neutrophils # (Manual) 30303 H Plt Morphology Comment . RBC Morphology See below Anisocytosis 1+ H ABG Sample Site Arterial line ABG pH 7.36 ABG pCO2 44.8 ABG pO2 152 H ABG HCO3 25 ABG Total CO2 24 ABG O2 Saturation 99 ABG Base Excess -0.7 Chau Test N/a Respiration Rate 18 O2 Delivery Device Adult ventilator Mode of Support Assist cont ventilat FiO2 % 50.0 % PEEP or CPAP 5 Sodium 142 Potassium 4.9 Chloride 110 H Carbon Dioxide 15 L BUN 73 H Creatinine 3.01 H Estimated GFR 22 L BUN/Creatinine Ratio 24.3 H Glucose 79 Calcium 7.0 L Phosphorus 10.2 H* D Magnesium 2.7 H Total Bilirubin 0.5 AST 61 H ALT 13 Alkaline Phosphatase 77 Total Protein 5.8 L Albumin 2.5 L Globulin 3.3 Albumin/Globulin Ratio 0.8 L [facility] Medical History Lung nodule seen on imaging study History of tobacco abuse Fatigue Ventricular tachycardia (paroxysmal) Anemia Palpitations GERD with stricture HTN (hypertension) Insomnia (~2015) Hyperlipidemia (~2015) Anxiety (~2015) COPD (chronic obstructive pulmonary disease) (~2013) Asthma (Unknown) TIA (transient ischemic attack) (05/2014) Hematuria (~2014) Surgical History No pertinent past surgical history Family History Mother Age: 86 Hypertension Sister Age: 69 Cancer Social History household members: none Smoking Status: Former smoker Tobacco: How many years used: 47 quit status: considering quitting second hand exposure: No alcohol intake: former substance use type: does not use Assessment & Plan Assessment & Plan narrative: 1. Septic shock with CLAY, acute metabolic encephalopathy, acute respiratory failure with hypoxia 2. Perforated colon due to diverticulitis, new status post sigmoid colectomy and colostomy. 3. COPD without exacerbation 4. Possible new pneumonia time of admission, active. 5. Acute blood loss anemia due to #2 Plan: -Extubated to high flow after intubation post operatively from 12/17 until 12/20. Continued to wean O2 as tolerated. On 12/21 patient was made DNR/DNI, discussion that patient would not want dialysis either. On 12/22 with worsening renal function, family and patient elected for proceeding with comfort measures only. -broadened antibiotics on 12/21 from zosyn to cefepime, flagyl, and vanco as MRSA swab positive. His WBC was continuing to rise after surgery, now near 30. Also added fluconazole with prior dane in sputum cultures. Fungitell is send out, ordered 12/21. -was still on intermittent levophed, will stop given comfort goals. -h/h stable in the 8s for multiple days after surgery. S/p 1 U PRBC overnight 12/18-12/19. H/h responded appropriately. -given frequent COPD admissions with need for steroids, checked AM cortisol level which was above normal. no stress dose steroids indicated. -GI prophylaxis in place. -DVT prophylaxis in place. Critical care time spent 30 minutes. Dispo: can downgrade to regular floor on comfort measures. Patient likely to in the next 24-48 hours. Consider alternative plan for hospice depending on clinical course. Time-Based Coding :: [TOTAL MINUTES] spent with patient and on the chart (including review of chart, obtaining history, exam, reviewing outside data, placing orders, documenting exam and treatment plan, and counseling patient) on [DATE]. Quality VTE Deep Vein Thrombosis/Pulmonary Embolism Present on Admission: No
[2024-12-22] MEDS: HYDROMORPHONE 2 MG INJ IV (15:57)
[2024-12-22] MEDS: MORPHINE 100 MG in SODIUM CHLORIDE 0.9% 90 ML 10 MG IV (17:10)
[2024-12-23] MEDS: MORPHINE 100 MG in SODIUM CHLORIDE 0.9% 90 ML 10 MG IV (02:34)
[2024-12-23 08:28] VITALS: BP 94/54; RESP 16; O2SAT 94
[2024-12-23] MEDS: HYDROMORPHONE 2 MG INJ IV (08:47)
[2024-12-23] MEDS: diazePAM 10 MG/2 ML SYRINGE IV (09:16)
--- NOTE | 2024-12-23 10:58 | CM.DPNOTE ---
Addendum entered by GILDA Stern 12/23/24 11:04: Addendum: DCP called [facility] and spoke with Elizabeth, notifed of pt expiring this morning; will close out episode with them. DCP called pt JENNIFER MADONNA, October Sony (ph# [phone]) and left a voice message requesting return call. Will notify of pt status when able to speak directly on phone. ZAID Bird Original Note: DCP Continued: Reviewed EMR and team rounds for pt?s medical status. Per RN, pt this morning. Plan: Pt , CM team following for any other support for pt family and/or his care team. ZAID Bird
--- NOTE | 2024-12-23 11:45 | PM.DDS.1 ---
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 Please consider wound vac. Consulting Provider: 12/19/24 08:52 Consult to Inpatient Wound Care Nurse Routine Comment: Reason for consultation: consider wound vac to midline incision Has provider been notified: Yes 12/20/24 17:57 Consult to Speech Therapy Evaluate & Treat Comment: Extubated 12/20/24 at 1115 Physician Instructions: Evaluate and treat 12/22/24 08:27 Consult to Discharge Planning Routine Comment: Discharge provider: Dr. Daevy Rose Discharge Diagnosis: Diverticulitis Hospital Course: Summary: The patient was admitted with fever and cough on December 13. He has a history of severe COPD and was recently treated for diverticulitis. Initial chest imaging indicated a possible new infiltrate, abdomen CT indicated colitis of the transverse colon. He had recently been treated with IV Zosyn for 14 days for diverticulitis in his care home facility. He had no diarrhea. He continued to have abdominal distension and was found to have a perforation. He went to the OR where he had Sigmoid colectomy with end descending colostomy on 12/17 with general surgery. He was brought to the ICU intubated and sedated after surgery. 12/18: He was on 2 pressors overnight, he was evidence of acute kidney injury but good urine output with 600 mL of urine overnight. FiO2 on the ventilator is 0.40. Tele-director of donor relations was consulted at 17:00. 12/19: Now only on 1 pressor, improving in this regard. Cr still rising slightly but good urine output. failed spontaneous breathing trial this afternoon. Overnight given 1U PRBC for Hg of 7 with improvement to 8.1. 12/20: extubated to heated high flow O2 with tele-director of donor relations. 12/21: required levophed overnight after diuresis. Adequate urine output but Cr rising today. Broadened antibiotics to cefepime, flagyl, vanc, and added fluconaole as well. 12/22:worsened renal function, continued altered mentation but alert and interactive. Patient and family both electing to proceed with comfort measures. 12/23: Patient at 9:58 a.m. [facility] 12/22/24 04:15 12/22/24 04:15
--- NOTE | 2024-12-23 12:46 | PC.NURSE ---
Pt TOD 09:58. Family at bedside. arrangements organized and all questions answered.
== END 2024-12-23 14:30 | disposition expired | DRG 981 ==
LOC: ED 19:42 → AC 12-14 08:12 → ICU 12-17 16:05
PROVIDERS: Anesthesiology Critical Care Medicine; Hospitalist; Internal Medicine; Internal Medicine Critical Care Medicine; Surgery; Admitting Provider Internal Medicine; Emergency Provider Emergency Medicine; PCP Family Medicine; Visit Provider Internal Medicine
PROC: 0D1M0Z4 Bypass Descending Colon to Cutaneous, Open Approach (ICD-10-PCS; CPT 49000; principal; 2024-12-17 14:00)
DX: J18.9 Pneumonia, unspecified organism (principal); A41.9 Sepsis, unspecified organism; G93.41 Metabolic encephalopathy; R65.21 Severe sepsis with septic shock; J96.22 Acute and chronic respiratory failure with hypercapnia; J96.21 Acute and chronic respiratory failure with hypoxia; K57.21 Diverticulitis of large intestine with perforation and abscess with bleeding; J44.1 Chronic obstructive pulmonary disease with (acute) exacerbation; N17.9 Acute kidney failure, unspecified; D62 Acute posthemorrhagic anemia; J44.0 Chronic obstructive pulmonary disease with (acute) lower respiratory infection; K52.9 Noninfective gastroenteritis and colitis, unspecified; J43.2 Centrilobular emphysema; E83.39 Other disorders of phosphorus metabolism; Z66 Do not resuscitate; Z87.891 Personal history of nicotine dependence; Z51.5 Encounter for palliative care
CPT/HCPCS: 36415; 36430; 36600; 71045; 71275; 74018; 74177; 80053; 82533; 82805; 82962; 83605; 83735; 83880; 84100; 84145; 84484; 85007; 85025; 85027; 85610; 86850; 86900; 86901; 87040; 87797; 93005; 94002; 94003; 94010; 94640; 94760; 94762; 94799; 96365; 96367; 96375; 97162; 97166; 97530; 99285; P9016; J0330; J0666; J0690; J0692; J0696; J1100; J1171; J1450; J1644; J1650; J1938; J2270; J2405; J2470; J2543; J2704; J2919; J3010; J3360; J7613; Q9967